=== PATIENT | male | born 1960 | race Hispanic/Latino ===

== ENCOUNTER 2016-04-02 06:14 | Inpatient (IN) | payer OTHER ==
[~2016-04-02 06:14] MED LIST: ANCEF/STERILE WATER 2 GM/20 ML 20 ML IV NR; NACL BACTERIOSTATIC INFILTRATI ONE
[2016-04-02] MEDS ORDERED: XYLOCAINE MPF 2% ONE (06:33)
[2016-04-02] MEDS ORDERED: DILAUDID ONE (06:34)
[2016-04-02] MEDS ORDERED: DIPRIVAN 10 MG/ML IV ONE (06:34)
[2016-04-02] MEDS: NACL 0.9% 1000 ML 1,000 ML IV SCH ×2 (06:50→23:29)
[2016-04-02] MEDS ORDERED: VERSED IV NR (07:00)
[2016-04-02] MEDS ORDERED: DILAUDID IV NR (07:00)
[2016-04-02] MEDS ORDERED: PEPCID PO NR (07:00)
--- NOTE | 2016-04-02 07:01 | Anesthesia Day of Surgery ---
Anesthesia Day of Surgery - Day of Surgery Patient Examined: Yes Patient H&P Reviewed: Yes Patient is NPO: Yes
--- NOTE | 2016-04-02 07:04 | Anesthesia Consultation ---
Anesthesia Consult and Med Hx - Airway Anesthetic Teeth Evaluation: Poor (missing teeth) ROM Head & Neck: Adequate Mental/Hyoid Distance: Adequate Mallampati Class: Class III Intubation Access Assessment: Possibly Difficult - Pulmonary Exam CTA: Yes - Cardiac Exam Cardiac Exam: RRR - Pre-Operative Health Status ASA Pre-Surgery Classification: ASA3 Proposed Anesthetic Plan: General - Pulmonary Hx Smoking: Yes - Cardiovascular System Hx Hypertension: Yes (10YRS) Hx Coronary Artery Disease: Yes (CABG 2008) Hx Heart Murmur: Yes ( A CHILD) Hx Peripheral Vascular Disease: Yes (10/2015) - Central Nervous System Hx Psychiatric Problems: No - Gastrointestinal Hx Gastroesophageal Reflux Disease: Yes (controlled on meds) - Endocrine Hx Renal Disease: Yes (L kidney stone) Hx Non-Insulin Dependent Diabetes: Yes - Other Systems Hx Cancer: No - Additional Comments Anesthesia Medical History Comments: NPO after MN. No prior anesthesia problems. Pt has hx smoking, CABG, HTN, DM, and GERD.
[2016-04-02 07:07] LABS: Basophils % (Auto) 0.6 % (0.0-1.8); Eosinophils % (Auto) 1.2 % (0.0-4.3); Hematocrit 35.2 % (35.5-45.6); Hemoglobin 11.4 gm/dl (11.8-15.2); Mean Corpuscular HGB Conc 32 % (32-34); Mean Corpuscular Hemoglobin 27 pg (28-32); Mean Corpuscular Volume 83 fl (84-94); Platelet Count 290 K/mm3 (140-440); Red Blood Count 4.23 M/mm3 (3.65-5.03); White Blood Count 14.6 K/mm3 (4.5-11.0)
[2016-04-02 07:20] LABS: INR 1.08 (0.87-1.13)
[2016-04-02 07:23] LABS: BUN/Creatinine Ratio 13.07; Calcium 8.4 mg/dL (8.4-10.2); Chloride 99.9 mmol/L (98-107); Potassium 4.3 mmol/L (3.6-5.0)
[2016-04-02] MEDS ORDERED: ZOFRAN IV PRN (07:28)
[2016-04-02] MEDS ORDERED: MARCAINE 0.5% 30 ML INFILTRATI ONE (07:35)
[2016-04-02] MEDS ORDERED: DECADRON ONE (08:34)
[2016-04-02] MEDS ORDERED: ZOFRAN ONE (08:34)
[2016-04-02] MEDS ORDERED: NACL 0.9% IR ONE (08:45)
--- NOTE | 2016-04-02 09:32 | Operative Report ---
Operative Report Operative Report: Date of Procedure: 04/02/2016 Pre-operative Diagnosis: PVD with Right Foot Nonhealing Ulcers Post-operative Diagnosis: Same Procedure(s): 1. Right Transmetatarsal Amputation 2. Debridement of Skin and Soft Tissue of Right Foot Wound 3. Wound VAC Placement Right Foot (Wound Measures 4 x 4 x 2 cm) Surgeon: Serge Berg M.D. Pastry Supervisor: None Anesthesia: Gen. endotracheal anesthesia and regional block EBL: Minimal Counts: Correct Complications: None Condition: Stable Findings: TMA performed and wound closed without tension on the incision. Lateral wound debrided to healthy bleeding tissue and wound VAC with excellent seal. Specimen: Right forefoot and skin and soft tissue of right foot sent to pathology Indication: The patient is a 55-year-old male with a history of peripheral vascular disease and ulcerations of his right foot. He had amputation of the right fifth toe for dehiscence of the wound and an ulceration on the plantar surface of his right first toe. Despite revascularization and antibiotics for the last 5 months he has not healed his wounds. He is in need of a transmetatarsal amputation to control his pain as well as infection. He was given the risks, benefits, and alternative procedures and consented to procedure. Description of Procedure: The patient was brought to the operating room in the supine position. After general endotracheal anesthesia was achieved the regional block was performed of his right ankle. His right foot was then prepped and draped in normal sterile fashion. A transverse incision was then created over the midportion of the metatarsals and carried distally to create a flap from the plantar surface. Cautery was then used to create the dissection down to the metatarsal. An oscillating saw was then used to transect the metatarsals and then cautery was used to resect toe as well as the tendons and soft issue. A rasp was then used to smooth the bones. The wound was copiously irrigated and hemostasis was achieved with electrocautery. The lateral edge of the foot had a large nonhealing wound with necrotic tissue that was sharply debrided with a 10 blade and a curet. This was debrided down to healthy bleeding tissue. I then closed the incision in 2 layers using a 2-0 Vicryl in interrupted fashion to reapproximate the deep dermal layers. Mariel were then used to close the skin. The lateral aspect of the wound was unable to be closed secondary to the previous debridement of necrotic skin and soft tissue. A Hemovac was placed on this area with an excellent seal. The remainder of the wound was dressed with Xeroform gauze and then the foot was wrapped with the loose Kerlix roll. The patient tolerated the procedure well. All sponge, needle, instrument counts were correct. The patient was taken to the recovery area in stable condition.
[2016-04-02] MEDS ORDERED: D50W (25GM) IV PRN (09:38)
[2016-04-02] MEDS: DILAUDID IV PRN ×4 (09:50→19:00)
[2016-04-02] MEDS ORDERED: NORCO 7.5/325 PO PRN (10:00)
[2016-04-02] MEDS ORDERED: OMEPRAZOLE PO SCH (10:00)
[2016-04-02] MEDS ORDERED: SODIUM BICARBONATE PO SCH (10:00)
--- NOTE | 2016-04-02 10:24 | Post Anesthesia Evaluation ---
- Post Anesthesia Evaluation Patient Participated: Yes Airway Patent: Yes Stable Respiratory Function: Yes Nausea/Vomiting: No Temp > 96.8F: Yes Pain Manageable: Yes Adequeate Hydration: Yes Anesthesia Complications: No Block Receding Appropriately: Not Applicable Patient on Ventilator: No
[2016-04-02] MEDS: NOVOLOG SUB-Q SCH ×3 (11:31→23:30)
[2016-04-02] MEDS: AMARYL PO SCH (11:55)
[2016-04-02] MEDS: PLAVIX PO SCH (11:56)
[2016-04-02] MEDS: PROTONIX PO SCH (11:56)
[2016-04-02] MEDS: NORVASC PO SCH (11:57)
[2016-04-02] MEDS: TORADOL IV PRN ×2 (11:59→23:24)
--- NOTE | 2016-04-02 13:17 | Admit Criteria Form ---
Admission Criteria Documentation: AMBULATORY SURGERY EXCEPTION CRITERIA Ambulatory Surgery Exception Criteria ( Place 'X' for any and all applicable criteria): Surgery or procedure performed on ambulatory basis may require inpatient stay for[A] ANY ONE of the following(1)(2)(3)(4)(5)(6)(7)(8)(9): [X] I. A preoperative situation, condition, or finding that warrants inpatient stay as indicated by ANY ONE of the following: [] a) Inpatient care needed because of severity of a disease or condition rather than the surgery (eg, severe cardiac or respiratory disease, severe infection) (15) (16 ) (17) (18) [] b) Emergent procedure (eg, angioplasty for acute ischemia)(19) [] c) Complex surgical approach or situation as indicated by ANY ONE of the following(3): [] i) Open approach needed instead of usual endoscopic, transcatheter, or other less invasive procedure [] ii) Difficult approach because of previous operation [] iii) Airway monitoring required after open neck procedures(20)(21) [] iv) Large mass requiring unusually extensive dissection [] v) Additional complicating feature requiring inpatient care (eg, drain management)(22(23): [X] d) Major surgery in a pt with high anesthetic risk as indicated by ANY ONE of the following (2)(3)(5)(7)(8): [X] i) ASA risk class III or higher (severe systemic disease impairing function) [D] [] ii) Advanced age (eg, older than 85 years)(14)(24) [] iii) Symptomatic heart failure(25) [] iv) Symptomatic asthma or COPD(8)(21) [] v) Morbid obesity with hemodynamic or respiratory problems(20)( 21)(26)(27) [] vi) Obstructive sleep apnea(20)(21) [] vii) Former premature infants who are younger than 60 weeks [] viii) High risk for severe postoperative abnormalities (eg, severe postoperative hypocalcemia after parathyroidectomy for severe hyperparathyroidism)(27)( 28) [] ix) Unstable angina(25) [] e) Drug-related risk requiring inpatient stay as indicated by ANY ONE of the following(5)(10)(14)(32)(33) [] i) Procedure requires discontinuing drugs or other therapy (eg , antiarrhythmic medication, antiseizure medication), which necessitates inpatient observation or treatment.(18)(31) [] ii) Major surgery and high risk drug use as indicated by ANY ONE of the following: [] 1) Active abuse of cocaine or similar drug [] 2) Monoamine oxidase inhibitor use [] 3) Other drug identified as posing risk [] f) Inadequate outpatient care situation as indicated by ANY ONE of the following(5)(10)(14)(32)(33) [] i) Patient lives remote from medical facility and procedure has urgent complication potential, and temporary nearby residence cannot be arranged [] ii) Patient will have postprocedure incapacitation and inadequate assistance at home, or alternative level of care cannot be arranged. [] iii) Patient will have long general anesthesia or procedure side effect resolution time, and competent person to stay with patient on first postoperative night at home or alternative level of care cannot be arranged. []iv) Other inadequate outpatient situation that cannot be handled by other means [] II. A perioperative event, condition, or finding that warrants inpatient stay as indicated by ANY ONE of the following (1)(2)(3): [] a) Inadequate physiologic recovery: cardiovascular, respiratory, or hemodynamic status not normal or near preoperative baseline(18) [] b) Hemodynamic instability [] c) Patient not alert with near normal or baseline mental status [] d) Temperature not normal or as expected and not appropriate for outpatient treatment of condition [] e) Ambulatory or appropriate activity level status not yet achieved post procedure [E](34)(35)(36) [] f) Operative site not appropriate (eg, unexpected or excessive drainage or bleeding) [] g) Postoperative effects not resolved or adequately managed (eg, significant pain or vomiting not appropriate for outpatient or next level of care)(10)(12) [] h) Complicating features requiring inpatient care as indicated by ANY ONE of the following(37): [] i) Severe complications of procedure (eg, bowel injury, airway compromise, vascular injury,severe hemorrhage) [] ii) Extensive (eg, dissection far beyond usual scope of procedure ) or prolonged (eg, 120 minutes beyond usual) surgery needed requiring inpatient postoperative care [] iii) Conversion to an open or complex procedure that requires inpatient care (eg, open vs laparoscopic cholecystectomy, abdominal vs vaginal hysterectomy)(38) [] iv) Comorbid condition or test result identified during or post procedure that requires inpatient care (7) [] v) Malignant hyperthermia(30) [] vi) Other complicating feature requiring inpatient care(22)(23) Inpatient stay may be needed until ALL of the following are present (1)(2)(3)(4) (5)(6)(10)(14)(33)(40): []a) Physiologic recovery: cardiovascular, respiratory, and hemodynamic status normal or near preoperative baseline []b) Hemodynamic stability []c) Patient alert, with near normal or baseline mental status []d) Temperature appropriate: patient afebrile or temperature appropriate for outpt treatment of condition []e) Activity level appropriate: ambulatory or appropriate activity level post procedure []f) Operative site appropriate as indicated by ALL of the following: []i) Site dry or with expected drainage []ii) Any blood noted is as expected for procedure. []g) Postoperative effects resolved or managed as indicated by ALL of the following: []i) Pain management appropriate for outpatient (or next level of) care(10) []ii) Minimal nausea and vomiting: if present, successfully treated with oral medication(12) []iii) Headache, dizziness, or drowsiness (if present) are mild. []h) Voiding status acceptable as indicated by ANY ONE of the following: []i) Voiding spontaneously []ii) No voiding but instructions given for follow-up in 6 to 8 hours []iii) Urinary catheter in place, and instructions given for follow-up []i) Complicating features requiring inpatient care manageable at a lower level of care(37) []j) Comorbid conditions manageable at a lower level of care(37) The original [employer] content created by [employer] has been revised. The portions of the content which have been revised are identified through the use of italic text or in bold, and [employer] [facility] [employer] has neither reviewed nor approved the modified material. All other unmodified content is copyright [employer]. Please see references footnoted in the original [employer] edition 2016 Admission Criteria Met: Yes
[2016-04-02] MEDS: ceFAZolin 2 GM in NACL 0.9% 100 ML IV SCH ×2 (15:52→23:33)
[2016-04-03] MEDS: ceFAZolin 2 GM in NACL 0.9% 100 ML IV SCH (01:14)
[2016-04-03] MEDS: NORCO 5/325 PO PRN ×3 (02:05→17:13)
[2016-04-03 05:26] LABS: Hematocrit 32.3 % (35.5-45.6); Hemoglobin 10.5 gm/dl (11.8-15.2)
[2016-04-03 05:33] LABS: BUN/Creatinine Ratio 12.3; Chloride 101.6 mmol/L (98-107); Potassium 4.3 mmol/L (3.6-5.0)
[2016-04-03] MEDS: DILAUDID IV PRN (05:40)
[2016-04-03] MEDS: NOVOLOG SUB-Q SCH ×4 (08:30→22:00)
[2016-04-03] MEDS: AMARYL PO SCH (10:57)
[2016-04-03] MEDS: LOVENOX SUB-Q SCH (10:58)
[2016-04-03] MEDS: NORVASC PO SCH (10:58)
[2016-04-03] MEDS: PLAVIX PO SCH (10:58)
[2016-04-03] MEDS: PROTONIX PO SCH (10:59)
[2016-04-03] MEDS ORDERED: SILVER NITRATE TP ONE (12:51)
--- NOTE | 2016-04-03 13:08 | Consultation ---
History of Present Illness - Reason for Consult Consult date: 04/03/16 Evaluate for Acute IRU - History of Present Illness 55 y.o. male with history of PVD admitted for right transmetatarsal amputation. Pt reports history of right fifth toe amputation and worsening diabetic foot ulcer; also with revascularization to RLE. Due to non-healing wound, pt was recommended for right TMA. Pt is POD #1 on today, pain is stable. Will require ongoing wound vac; pending Gabriel shoe for gait training. Consult placed for post-acute placement recommendations. Past History Past Medical History: diabetes, hypertension, PVD Past Surgical History: CABG, Other (right toe amputations prior to right TMA; right LE revascularization) Social history: , lives with family, smoking Family history: CAD, diabetes, hypertension, other (CHF) Medications and Allergies Allergies Allergy/AdvReac Type Severity Reaction Status Date / Time No Known Allergies Allergy Verified 04/01/16 10:07 Home Medications Medication Instructions Recorded Confirmed Last Taken Type Clopidogrel Bisulfate [Clopidogrel] 75 mg PO DAILY 10/30/15 04/01/16 04/02/16 05 :00 History Glimepiride [Glimepiride] 4 mg PO DAILY 10/30/15 04/02/16 04/01/16 History HYDROcodone/APAP 7.5-325 [[place] 1 each PO Q6HR PRN #50 tablet 10/30/15 04/02/16 04/01/16 Rx 7.5-325 mg TAB] Omeprazole/Sodium Bicarbonate 1 tab PO DAILY 10/30/15 04/01/16 04/02/16 05:00 History [Zegerid 20-1,100 mg] amLODIPine [Norvasc] 10 mg PO DAILY 04/02/16 04/02/16 04/02/16 05:00 History Active Meds: Active Medications Acetaminophen/Hydrocodone Bitart ([place] 5/325) 2 each PO Q6H PRN PRN Reason: Pain, Moderate (4-6) Last Admin: 04/03/16 10:59 Dose: 2 each Acetaminophen/Hydrocodone Bitart ([place] 7.5/325) 1 each PO Q6H PRN PRN Reason: Pain Amlodipine Besylate (Norvasc) 10 mg PO DAILY [facility] Last Admin: 04/03/16 10:58 Dose: 10 mg Clopidogrel Bisulfate (Plavix) 75 mg PO DAILY [facility] Last Admin: 04/03/16 10:58 Dose: 75 mg Dextrose (D50w (25gm)) 50 ml IV PRN PRN PRN Reason: Hypoglycemia Enoxaparin Sodium (Lovenox) 40 mg SUB-Q QDAY [facility] Last Admin: 04/03/16 10:58 Dose: 40 mg Glimepiride (Amaryl) 4 mg PO QDDIAB [facility] Last Admin: 04/03/16 10:57 Dose: 4 mg Hydromorphone HCl (Dilaudid) 0.5 mg IV Q3H PRN PRN Reason: Pain , Severe (7-10) Last Admin: 04/03/16 05:40 Dose: 0.5 mg Sodium Chloride (Nacl 0.9% 1000 Ml) 1,000 mls @ 42 mls/hr IV DIRECT [facility] Last Admin: 04/02/16 23:29 Dose: 42 mls/hr Insulin Aspart (Novolog) 0 units SUB-Q ACHS [facility] PRN Reason: Protocol Last Admin: 04/03/16 08:30 Dose: 1 units Ketorolac Tromethamine (Toradol) 30 mg IV Q6H PRN PRN Reason: Pain, Moderate (4-6) Stop: 04/07/16 09:59 Last Admin: 04/02/16 23:24 Dose: 30 mg Pantoprazole Sodium (Protonix) 20 mg PO QDAY [facility] Last Admin: 04/03/16 10:59 Dose: 20 mg Review of Systems All systems: negative Constitutional: no poor appetite Ears, nose, mouth and throat: no headache Cardiovascular: no chest pain Respiratory: no cough, no shortness of breath Gastrointestinal: no nausea, no vomiting, no constipation (BM on yesterday) Exam - Constitutional Vitals: Vital Signs - 12hr 04/03/16 04/03/16 07:30 10:58 Temperature 98.1 F Pulse Rate 84 Pulse Rate [ 18 L Brachial] Blood Pressure 142/71 Blood Pressure 142/70 [Left Arm] O2 Sat by Pulse 97 Oximetry General appearance: no acute distress, other (sitting up in bed) - EENT Eyes: EOM intact ENT: hearing intact - Neck Neck: supple, normal ROM - Respiratory Respiratory effort: normal Respiratory: bilateral: CTA - Cardiovascular Rhythm: regular Heart Sounds: Present: S1 & S2 - Extremities Extremity abnormal: other (right foot incision open at far lateral side; meng in place to remaining wound; Vascular Team present changing wound vac) - Gastrointestinal General gastrointestinal: Present: non-tender (firm), normal bowel sounds - Neurologic Neurologic: CNII-XII intact, moves all extremities (RLE deferred due to ongoing wound vac change; remaining extremities WNL) - Psychiatric Psychiatric: appropriate mood/affect, intact judgment & insight, memory intact, cooperative - Labs CBC & Chem 7: 04/03/16 04:51 04/03/16 04:51 Labs: Laboratory Results - last 72 hr 04/02/16 04/02/16 04/02/16 06:45 06:45 06:45 WBC 14.6 H RBC 4.23 Hgb 11.4 L Hct 35.2 L MCV 83 L MCH 27 L MCHC 32 RDW 14.0 Plt Count 290 Lymph % (Auto) 11.2 L Casey % (Auto) 6.7 Eos % (Auto) 1.2 Baso % (Auto) 0.6 Lymph # 1.6 Casey # 1.0 H Eos # 0.2 Baso # 0.1 Seg Neutrophils % 80.3 H Seg Neutrophils # 11.7 H PT 13.9 INR 1.08 Sodium 139 Potassium 4.3 Chloride 99.9 Carbon Dioxide 23 Anion Gap 20 BUN 17 Creatinine 1.3 Estimated GFR 58 BUN/Creatinine Ratio 13.07 Glucose 183 H POC Glucose Calcium 8.4 04/02/16 04/02/16 04/02/16 06:56 09:30 11:05 WBC RBC Hgb Hct MCV MCH MCHC RDW Plt Count Lymph % (Auto) Casey % (Auto) Eos % (Auto) Baso % (Auto) Lymph # Casey # Eos # Baso # Seg Neutrophils % Seg Neutrophils # PT INR Sodium Potassium Chloride Carbon Dioxide Anion Gap BUN Creatinine Estimated GFR BUN/Creatinine Ratio Glucose POC Glucose 180 H 168 H 223 H Calcium 04/02/16 04/02/16 04/03/16 16:07 22:30 04:51 WBC RBC Hgb 10.5 L Hct 32.3 L MCV MCH MCHC RDW Plt Count Lymph % (Auto) Casey % (Auto) Eos % (Auto) Baso % (Auto) Lymph # Casey # Eos # Baso # Seg Neutrophils % Seg Neutrophils # PT INR Sodium Potassium Chloride Carbon Dioxide Anion Gap BUN Creatinine Estimated GFR BUN/Creatinine Ratio Glucose POC Glucose 403 H 290 H Calcium 04/03/16 04/03/16 04:51 07:03 WBC RBC Hgb Hct MCV MCH MCHC RDW Plt Count Lymph % (Auto) Casey % (Auto) Eos % (Auto) Baso % (Auto) Lymph # Casey # Eos # Baso # Seg Neutrophils % Seg Neutrophils # PT INR Sodium 137 Potassium 4.3 Chloride 101.6 Carbon Dioxide 22 Anion Gap 18 BUN 16 Creatinine 1.3 Estimated GFR 58 BUN/Creatinine Ratio 12.30 Glucose 207 H POC Glucose 173 H Calcium 8.0 L Assessment and Plan Patient was assessed and evaluated for Acute Inpatient Rehab Unit. 55 y.o. male s/p right TMA. Rehab options discussed with pt; pending PT evaluation and ambulation after Gabriel shoe is available. Ongoing medical management for DM, HTN; wound care per ET nurse for wound vac. Will continue to follow; placement recommendations after PT evaluation is completed. Thank you for consultation. - Patient Problems (1) PVD (peripheral vascular disease) Current Visit: Yes Status: Acute (2) Diabetes Current Visit: Yes Status: Acute Qualifiers: Diabetes mellitus type: type 2 Diabetes mellitus complication status: with hyperglycemia Diabetes mellitus superintendent container terminal insulin use: without superintendent container terminal use Qualified Code(s): E11.65 - Type 2 diabetes mellitus with hyperglycemia (3) HTN (hypertension) Current Visit: Yes Status: Acute
--- NOTE | 2016-04-03 14:43 | Progress Note ---
Assessment and Plan Status post right TMA and debridement. Wound VAC seal broken by clot from ooze from wound. Taken down, Silver nitrate applied cauterize focal areas of bleeding. Dressing applied. Wound care nurse will reapply wound VAC, possibly on Tuesday. Awaiting Alessandro shoe. Dr. Minaya was at bedside assessing for inpatient rehabilitation. Subjective Date of service: 04/03/16 Principal diagnosis: gangrene Interval history: Status post right TMA with VAC placement and debridement. Blood saturated wound VAC preventing VAC drainage. VAC removed. Clot removed. Area cleaned with wound cleanser. 2 focal areas of bleeding from the lateral wound which were cauterized with silver nitrate. One focal area of bleeding from the medial wound which was cauterized with silver nitrate. Vaseline gauze , gauze with saline, and Kerlix applied. Wound VAC will be replaced by wound care when possible which may be Tuesday. In the interim, change dressing daily Objective - Constitutional Vitals: Vital Signs - 12hr 04/03/16 04/03/16 07:30 10:58 Temperature 98.1 F Pulse Rate 84 Pulse Rate [ 18 L Brachial] Blood Pressure 142/71 Blood Pressure 142/70 [Left Arm] O2 Sat by Pulse 97 Oximetry General appearance: Present: no acute distress - EENT Eyes: EOM intact ENT: hearing intact - Respiratory Respiratory effort: normal Extremity abnormal: other (see subjective portion) - Psychiatric Psychiatric: appropriate mood/affect, cooperative - Labs CBC & Chem 7: 04/03/16 04:51 04/03/16 04:51 Labs: Abnormal lab results 04/02/16 04/02/16 04/03/16 Range/Units 16:07 22:30 04:51 Hgb 10.5 L (11.8-15.2) gm/dl Hct 32.3 L (35.5-45.6) % Glucose (75-100) mg/dL POC Glucose 403 H 290 H (70-105) Calcium (8.4-10.2) mg/dL 04/03/16 04/03/16 Range/Units 04:51 07:03 Hgb (11.8-15.2) gm/dl Hct (35.5-45.6) % Glucose 207 H (75-100) mg/dL POC Glucose 173 H (70-105) Calcium 8.0 L (8.4-10.2) mg/dL
[2016-04-03] MEDS: TORADOL IV PRN (22:00)
[2016-04-04] MEDS: NORCO 5/325 PO PRN ×3 (01:30→17:03)
[2016-04-04 05:21] LABS: Basophils % (Auto) 0.4 % (0.0-1.8); Hematocrit 30.7 % (35.5-45.6); Hemoglobin 10.2 gm/dl (11.8-15.2); Mean Corpuscular HGB Conc 33 % (32-34); Mean Corpuscular Hemoglobin 27 pg (28-32); Mean Corpuscular Volume 82 fl (84-94); Platelet Count 237 K/mm3 (140-440); Red Blood Count 3.73 M/mm3 (3.65-5.03); Red Cell Distribution Width 13.8 % (13.2-15.2); White Blood Count 12.2 K/mm3 (4.5-11.0)
[2016-04-04] MEDS: NACL 0.9% 1000 ML 1,000 ML IV SCH (06:00)
[2016-04-04] MEDS: TORADOL IV PRN ×3 (06:30→21:46)
[2016-04-04] MEDS: NOVOLOG SUB-Q SCH ×4 (08:00→21:47)
[2016-04-04] MEDS: AMARYL PO SCH (09:05)
[2016-04-04] MEDS: PLAVIX PO SCH (09:05)
[2016-04-04] MEDS: NORVASC PO SCH (09:05)
[2016-04-04] MEDS: LOVENOX SUB-Q SCH (09:05)
[2016-04-04] MEDS: PROTONIX PO SCH (09:05)
--- NOTE | 2016-04-04 15:14 | Progress Note ---
Assessment and Plan Status post right TMA and debridement. Wound VAC seal broken by clot from ooze from wound yesterday requiring wound VAC removal. No recurrent bleeding since then. VAC be replaced tomorrow. Awaiting Darco shoe. Subjective Date of service: 04/04/16 Principal diagnosis: gangrene Interval history: Status post right TMA with VAC placement and debridement. VAC was removed due to lack of seal. Patient is in no distress. Nurse changed wounds as I was present demonstrating no significant bleeding from the site. VAC will be replaced tomorrow. Patient has no complaints. Objective - Constitutional Vitals: Vital Signs - 12hr 04/04/16 04/04/16 04/04/16 04:00 06:30 07:00 Temperature 99.0 F Pulse Rate Pulse Rate [ 74 Brachial] Respiratory 18 20 18 Rate Blood Pressure Blood Pressure 149/80 [Left Arm] O2 Sat by Pulse 98 Oximetry 04/04/16 04/04/16 07:30 09:05 Temperature 99.1 F Pulse Rate 70 Pulse Rate [ 70 Brachial] Respiratory 20 Rate Blood Pressure 149/67 Blood Pressure 149/67 [Left Arm] O2 Sat by Pulse Oximetry General appearance: Present: no acute distress - EENT Eyes: EOM intact ENT: hearing intact - Respiratory Respiratory effort: normal Extremities: normal temperature, normal color Extremity abnormal: other (right TMA with open lateral aspect of wound and focal open aspect of the midportion of the wound; no active oozing; no purulence ; base of wound is slightly dark) - Psychiatric Psychiatric: appropriate mood/affect, cooperative - Labs CBC & Chem 7: 04/04/16 05:08 04/03/16 04:51 Labs: Abnormal lab results 04/03/16 04/03/16 04/03/16 Range/Units 12:23 17:05 21:19 WBC (4.5-11.0) K/mm3 Hgb (11.8-15.2) gm/dl Hct (35.5-45.6) % MCV (84-94) fl MCH (28-32) pg Seg Neutrophils % (40.0-70.0) % Seg Neutrophils # (1.8-7.7) K/mm3 POC Glucose 185 H 112 H 237 H (70-105) 04/04/16 04/04/16 04/04/16 Range/Units 05:08 08:00 11:47 WBC 12.2 H (4.5-11.0) K/mm3 Hgb 10.2 L (11.8-15.2) gm/dl Hct 30.7 L (35.5-45.6) % MCV 82 L (84-94) fl MCH 27 L (28-32) pg Seg Neutrophils % 70.4 H (40.0-70.0) % Seg Neutrophils # 8.6 H (1.8-7.7) K/mm3 POC Glucose 136 H 130 H (70-105)
[2016-04-05] MEDS: NORCO 5/325 PO PRN ×4 (02:14→21:36)
[2016-04-05] MEDS: NACL 0.9% 1000 ML 1,000 ML IV SCH (02:15)
[2016-04-05 05:51] LABS: Basophils % (Auto) 0.7 % (0.0-1.8); Eosinophils % (Auto) 2.2 % (0.0-4.3); Hematocrit 31.9 % (35.5-45.6); Hemoglobin 10.5 gm/dl (11.8-15.2); Mean Corpuscular HGB Conc 33 % (32-34); Mean Corpuscular Hemoglobin 27 pg (28-32); Mean Corpuscular Volume 82 fl (84-94); Platelet Count 265 K/mm3 (140-440); Red Blood Count 3.88 M/mm3 (3.65-5.03); Red Cell Distribution Width 13.9 % (13.2-15.2); White Blood Count 11.9 K/mm3 (4.5-11.0)
[2016-04-05] MEDS: AMARYL PO SCH (07:57)
[2016-04-05] MEDS: TORADOL IV PRN ×2 (07:57→16:07)
[2016-04-05] MEDS: NOVOLOG SUB-Q SCH ×3 (08:05→18:19)
[2016-04-05] MEDS: PLAVIX PO SCH (10:18)
[2016-04-05] MEDS: NORVASC PO SCH (10:18)
[2016-04-05] MEDS: PROTONIX PO SCH (10:18)
[2016-04-05] MEDS: LOVENOX SUB-Q SCH (10:20)
--- NOTE | 2016-04-05 11:51 | Consultation ---
History of Present Illness - Reason for Consult Consult date: 04/05/16 Requesting physician: WILFRIDO MENSAH - History of Present Illness 55 Yo male with HTN, DM, PAD, CAD S/P CABG, Nicotine Dependence, Metabolic Syndrome, diabetic Foot admitted for right Transmetatarsal amputation. Pt POD # 1. Pt denies fever, chills, CP, Palpitation, NVD, shortness of breath, productive cough, or skin rashes. Past History Past Medical History: diabetes, hypertension, PVD Past Surgical History: CABG, Other (right toe amputations prior to right TMA; right LE revascularization) Social history: , lives with family, smoking Family history: CAD, diabetes, hypertension, other (CHF) Medications and Allergies Allergies Allergy/AdvReac Type Severity Reaction Status Date / Time No Known Allergies Allergy Verified 04/01/16 10:07 Home Medications Medication Instructions Recorded Confirmed Last Taken Type Clopidogrel Bisulfate [Clopidogrel] 75 mg PO DAILY 10/30/15 04/01/16 04/02/16 05 :00 History Glimepiride [Glimepiride] 4 mg PO DAILY 10/30/15 04/02/16 04/01/16 History HYDROcodone/APAP 7.5-325 [[place] 1 each PO Q6HR PRN #50 tablet 10/30/15 04/02/16 04/01/16 Rx 7.5-325 mg TAB] Omeprazole/Sodium Bicarbonate 1 tab PO DAILY 10/30/15 04/01/16 04/02/16 05:00 History [Zegerid 20-1,100 mg] amLODIPine [Norvasc] 10 mg PO DAILY 04/02/16 04/02/16 04/02/16 05:00 History Active Meds: Active Medications Acetaminophen/Hydrocodone Bitart ([place] 5/325) 2 each PO Q6H PRN PRN Reason: Pain, Moderate (4-6) Last Admin: 04/05/16 10:19 Dose: 2 each Amlodipine Besylate (Norvasc) 10 mg PO DAILY [facility] Last Admin: 04/05/16 10:18 Dose: 10 mg Clopidogrel Bisulfate (Plavix) 75 mg PO DAILY [facility] Last Admin: 04/05/16 10:18 Dose: 75 mg Dextrose (D50w (25gm)) 50 ml IV PRN PRN PRN Reason: Hypoglycemia Enoxaparin Sodium (Lovenox) 40 mg SUB-Q QDAY [facility] Last Admin: 04/05/16 10:20 Dose: 40 mg Glimepiride (Amaryl) 4 mg PO QDDIAB [facility] Last Admin: 04/05/16 07:57 Dose: 4 mg Hydromorphone HCl (Dilaudid) 0.5 mg IV Q3H PRN PRN Reason: Pain , Severe (7-10) Last Admin: 04/03/16 05:40 Dose: 0.5 mg Sodium Chloride (Nacl 0.9% 1000 Ml) 1,000 mls @ 42 mls/hr IV DIRECT [facility] Last Admin: 04/05/16 02:15 Dose: 42 mls/hr Insulin Aspart (Novolog) 0 units SUB-Q ACHS [facility] PRN Reason: Protocol Last Admin: 04/05/16 08:05 Dose: Not Given Ketorolac Tromethamine (Toradol) 30 mg IV Q6H PRN PRN Reason: Pain, Moderate (4-6) Stop: 04/07/16 09:59 Last Admin: 04/05/16 07:57 Dose: 30 mg Pantoprazole Sodium (Protonix) 20 mg PO QDAY [facility] Last Admin: 04/05/16 10:18 Dose: 20 mg Review of Systems All systems: negative Constitutional: other (none) Exam - Constitutional Vitals: Temp Pulse Resp BP Pulse Ox 98.8 F 73 18 151/68 100 04/05/16 08:00 04/05/16 10:18 04/05/16 08:00 04/05/16 10:18 04/05/16 08:00 General appearance: Present: no acute distress, well-nourished - EENT Eyes: Present: PERRL ENT: hearing intact, clear oral mucosa - Neck Neck: Present: supple, normal ROM - Respiratory Respiratory effort: normal Respiratory: bilateral: CTA - Cardiovascular Heart Sounds: Present: S1 & S2. Absent: rub, click - Extremities Extremities: pulses symmetrical, No edema Extremity abnormal: other (RLE dressing in place. ) Peripheral Pulses: within normal limits - Abdominal General gastrointestinal: Present: soft, non-tender, non-distended, normal bowel sounds Male genitourinary: Present: normal - Integumentary Integumentary: Present: clear, warm, dry - Musculoskeletal Musculoskeletal: gait normal, strength equal bilaterally - Psychiatric Psychiatric: appropriate mood/affect, intact judgment & insight - Neurologic Neurologic: CNII-XII intact, moves all extremities Results - Labs CBC & Chem 7: 04/05/16 05:45 04/03/16 04:51 Labs: Abnormal lab results 04/04/16 04/04/16 04/04/16 Range/Units 11:47 17:13 21:14 WBC (4.5-11.0) K/mm3 Hgb (11.8-15.2) gm/dl Hct (35.5-45.6) % MCV (84-94) fl MCH (28-32) pg [place] % (Auto) (0.0-7.3) % [place] # (0.0-0.8) K/mm3 Seg Neutrophils # (1.8-7.7) K/mm3 POC Glucose 130 H 124 H 184 H (70-105) 04/05/16 Range/Units 05:45 WBC 11.9 H (4.5-11.0) K/mm3 Hgb 10.5 L (11.8-15.2) gm/dl Hct 31.9 L (35.5-45.6) % MCV 82 L (84-94) fl MCH 27 L (28-32) pg [place] % (Auto) 7.5 H (0.0-7.3) % [place] # 0.9 H (0.0-0.8) K/mm3 Seg Neutrophils # 8.3 H (1.8-7.7) K/mm3 POC Glucose (70-105) Assessment and Plan HTN: Monitor BP q shift, resume home medication, hydralazine prn. DM: ADA diet, insulin, accu check, D/C oral antihyperglycemic therapy PAD: supportive care DVT Prophylaxis
[2016-04-05] MEDS ORDERED: APRESOLINE IV PRN (11:52)
[2016-04-05] MEDS ORDERED: D50W (25GM) IV PRN (11:53)
--- NOTE | 2016-04-05 12:04 | Progress Note ---
Assessment and Plan Wound Vac was removed by the ET nurse, and silver bandages will be placed for the next couple of days. Possible replacement of the wound VAC at that point. Discharge planning and progress. - Patient Problems (1) Diabetic foot ulcer associated with diabetes mellitus due to underlying condition Current Visit: Yes Status: Acute Qualifiers: Laterality: right Qualified Code(s): E08.621 - Diabetes mellitus due to underlying condition with foot ulcer; L97.519 - Non-pressure chronic ulcer of other part of right foot with unspecified severity (2) Atherosclerosis of [place] arteries of the extremities with ulceration Current Visit: Yes Status: Acute Subjective Date of service: 04/05/16 Principal diagnosis: gangrene Interval history: Patient is awake and alert. He is without specific complaint at present. Objective - Constitutional Vitals: Vital Signs - 12hr 04/05/16 04/05/16 04/05/16 00:00 02:14 04:00 Temperature 98.3 F 98.2 F Pulse Rate Pulse Rate [ 70 73 Brachial] Respiratory 18 18 18 Rate Blood Pressure Blood Pressure 166/74 165/84 [Left Arm] O2 Sat by Pulse 97 100 Oximetry 04/05/16 04/05/16 08:00 10:18 Temperature 98.8 F Pulse Rate 73 Pulse Rate [ 73 Brachial] Respiratory 18 Rate Blood Pressure 151/68 Blood Pressure 151/68 [Left Arm] O2 Sat by Pulse 100 Oximetry General appearance: Present: no acute distress - EENT Eyes: EOM intact ENT: hearing intact - Respiratory Respiratory effort: normal Extremities: abnormal (wound VAC removed by the ET nurse. [id number] bowel odor present. Yellow fibrinous slough covering the wound base. Slightly blackened tissue along the wound border on the lateral aspect adjacent to the second toe.) - Neurologic Neurologic: no focal deficits - Psychiatric Psychiatric: appropriate mood/affect, intact judgment & insight, cooperative - Labs CBC & Chem 7: 04/05/16 05:45 04/03/16 04:51 Labs: Abnormal lab results 04/04/16 04/04/16 04/05/16 Range/Units 17:13 21:14 05:45 WBC 11.9 H (4.5-11.0) K/mm3 Hgb 10.5 L (11.8-15.2) gm/dl Hct 31.9 L (35.5-45.6) % MCV 82 L (84-94) fl MCH 27 L (28-32) pg [place] % (Auto) 7.5 H (0.0-7.3) % [place] # 0.9 H (0.0-0.8) K/mm3 Seg Neutrophils # 8.3 H (1.8-7.7) K/mm3 POC Glucose 124 H 184 H (70-105) 04/05/16 Range/Units 11:30 WBC (4.5-11.0) K/mm3 Hgb (11.8-15.2) gm/dl Hct (35.5-45.6) % MCV (84-94) fl MCH (28-32) pg [place] % (Auto) (0.0-7.3) % [place] # (0.0-0.8) K/mm3 Seg Neutrophils # (1.8-7.7) K/mm3 POC Glucose 166 H (70-105)
--- NOTE | 2016-04-05 16:02 | Event Note ---
Date: 04/05/16 IPR F/U, s/p right TMA. Pt seen this afternoon; wound vac remains off. Therapy notes reviewed and patient is doing well with crutches and NWB status; pending Gabriel shoe. Pt recommended for home with home health if needed at d/c. Please call for any further questions. Thank you for consultation.
[2016-04-06] MEDS: NOVOLOG SUB-Q SCH ×2 (00:26→12:45)
[2016-04-06] MEDS: NORCO 5/325 PO PRN ×2 (03:12→10:36)
[2016-04-06 06:27] LABS: Basophils % (Auto) 0.4 % (0.0-1.8); Hematocrit 33.5 % (35.5-45.6); Hemoglobin 10.9 gm/dl (11.8-15.2); Mean Corpuscular HGB Conc 32 % (32-34); Mean Corpuscular Hemoglobin 27 pg (28-32); Mean Corpuscular Volume 83 fl (84-94); Platelet Count 303 K/mm3 (140-440); Red Blood Count 4.04 M/mm3 (3.65-5.03); Red Cell Distribution Width 14.2 % (13.2-15.2); White Blood Count 14.5 K/mm3 (4.5-11.0)
[2016-04-06] MEDS: PLAVIX PO SCH (10:25)
[2016-04-06] MEDS: LOVENOX SUB-Q SCH (10:25)
[2016-04-06] MEDS: NORVASC PO SCH (10:25)
[2016-04-06] MEDS: PROTONIX PO SCH (10:29)
--- NOTE | 2016-04-06 11:06 | Progress Note ---
Assessment and Plan Assessment and plan: 55 Yo male with HTN, DM, PAD, CAD S/P CABG, Nicotine Dependence, Metabolic Syndrome, diabetic Foot admitted for right Transmetatarsal amputation 04/02/16. Pt denies fever, chills, CP, Palpitation, NVD, shortness of breath, productive cough, or skin rashes. Assessment * Diabetic foot with severe PVD * Status post TMA * Diabetes mellitus * PVD * PAD * HTN * Leukocytosis Plan * Continue wound dressing and debridement was planned by vascular, surgery. * Continue meropenem 1 g IV twice daily as started by surgeon based on discussion with Dr. Carbajal on the culture that grew. No cultures that here. * Continue good hyperglycemic control * Continue blood pressure control. * DVT and GI prophylaxis * Plan discussed with the patient * Thank you for allowing us to take part in the care of your patient. We will follow with you while patient remains in the hospital. History Interval history: Follow-up diabetes Patient seen and examined this morning in no acute distress Denies any chest pain, nausea, vomiting, diarrhea No fever noted blood pressure controlled No adverse events reported to me by nursing staff Hospitalist Physical - Physical exam Narrative exam: VITAL SIGNS: Reviewed. GENERAL: The patient appeared well nourished and normally developed. Vital signs as documented. HEAD: No signs of head trauma. EYES: Pupils are equal. Extraocular motions intact. EARS: Hearing grossly intact. MOUTH: Oropharynx is normal. NECK: No adenopathy, no JVD. CHEST: Chest with clear breath sounds bilaterally. No wheezes, rales, or rhonchi. CARDIAC: Regular rate and rhythm. S1 and S2, without murmurs, gallops, or rubs. VASCULAR: No Edema. Peripheral pulses diminished in lower extremities. ABDOMEN: Soft, without detectable tenderness. No sign of distention. No rebound or guarding, and no masses palpated. Bowel Sounds normal. MUSCULOSKELETAL: Good range of motion of all major joints. Right TMA NEUROLOGIC EXAM: Alert and oriented x 3. No focal sensory or strength deficits. Speech normal. Follows commands. PSYCHIATRIC: Mood normal. SKIN: No rash or lesions. - Constitutional Vitals: Temp Pulse Resp BP Pulse Ox 98.8 F 80 14 138/79 97 04/06/16 07:30 04/06/16 10:25 04/06/16 10:36 04/06/16 10:25 04/06/16 07:30 General appearance: Present: no acute distress Results - Labs CBC & Chem 7: 04/06/16 06:00 04/03/16 04:51 Labs: Laboratory Last Values WBC 14.5 K/mm3 (4.5-11.0) H 04/06/16 06:00 RBC 4.04 M/mm3 (3.65-5.03) 04/06/16 06:00 Hgb 10.9 gm/dl (11.8-15.2) L 04/06/16 06:00 Hct 33.5 % (35.5-45.6) L 04/06/16 06:00 MCV 83 fl (84-94) L 04/06/16 06:00 MCH 27 pg (28-32) L 04/06/16 06:00 MCHC 32 % (32-34) 04/06/16 06:00 RDW 14.2 % (13.2-15.2) 04/06/16 06:00 Plt Count 303 K/mm3 (140-440) 04/06/16 06:00 Lymph % (Auto) 18.0 % (13.4-35.0) 04/06/16 06:00 [place] % (Auto) 6.2 % (0.0-7.3) 04/06/16 06:00 Eos % (Auto) 2.0 % (0.0-4.3) 04/06/16 06:00 Baso % (Auto) 0.4 % (0.0-1.8) 04/06/16 06:00 Lymph # 2.6 K/mm3 (1.2-5.4) 04/06/16 06:00 [place] # 0.9 K/mm3 (0.0-0.8) H 04/06/16 06:00 Eos # 0.3 K/mm3 (0.0-0.4) 04/06/16 06:00 Baso # 0.1 K/mm3 (0.0-0.1) 04/06/16 06:00 Seg Neutrophils % 73.4 % (40.0-70.0) H 04/06/16 06:00 Seg Neutrophils # 10.7 K/mm3 (1.8-7.7) H 04/06/16 06:00 PT 13.9 Sec. (12.2-14.9) 04/02/16 06:45 INR 1.08 (0.87-1.13) 04/02/16 06:45 Sodium 137 mmol/L (137-145) 04/03/16 04:51 Potassium 4.3 mmol/L (3.6-5.0) 04/03/16 04:51 Chloride 101.6 mmol/L (98-107) 04/03/16 04:51 Carbon Dioxide 22 mmol/L (22-30) 04/03/16 04:51 Anion Gap 18 mmol/L 04/03/16 04:51 BUN 16 mg/dL (9-20) 04/03/16 04:51 Creatinine 1.3 mg/dL (0.8-1.5) 04/03/16 04:51 Estimated GFR 58 ml/min 04/03/16 04:51 BUN/Creatinine Ratio 12.30 % 04/03/16 04:51 Glucose 207 mg/dL (75-100) H 04/03/16 04:51 POC Glucose 112 (70-105) H 04/06/16 07:36 Calcium 8.0 mg/dL (8.4-10.2) L 04/03/16 04:51
--- NOTE | 2016-04-06 12:29 | Progress Note ---
Assessment and Plan The patient is status post transmetatarsal amputation with partial closure. He has foul-smelling drainage from the wound as well as erythema around the incision. I have discussed with him that the best option to salvage his foot is to hold, debride all unhealthy tissue, and allow the wound to close by secondary intention. I also called his infectious disease doctor, Dr Carbajal, and discuss his antibiotics. Based on previous wound cultures the patient was to be started on Meropenem 1 g IV twice a day. We will start this antibiotic while he is in the hospital with the plan to debride the wound tomorrow. I discussed this plan with the patient, he agrees and would like to proceed. Subjective Date of service: 04/06/16 Principal diagnosis: gangrene Interval history: Patient is without complaints Objective - Constitutional Vitals: Vital Signs - 12hr 04/06/16 04/06/16 04/06/16 07:30 10:25 10:36 Temperature 98.8 F Pulse Rate 80 Pulse Rate [ 73 Brachial] Respiratory 16 14 Rate Blood Pressure 138/79 Blood Pressure 153/85 [Left Arm] O2 Sat by Pulse 97 Oximetry General appearance: Present: no acute distress - Respiratory Respiratory effort: normal Extremities: normal temperature, abnormal (the right foot has significant erythema around the incision as well as foul-smelling drainage from the lateral aspect of the wound. There is necrotic tissue within the base of the wound.) - Labs CBC & Chem 7: 04/06/16 06:00 04/03/16 04:51 Labs: Abnormal lab results 04/05/16 04/05/16 04/06/16 Range/Units 17:10 20:43 06:00 WBC 14.5 H (4.5-11.0) K/mm3 Hgb 10.9 L (11.8-15.2) gm/dl Hct 33.5 L (35.5-45.6) % MCV 83 L (84-94) fl MCH 27 L (28-32) pg [place] # 0.9 H (0.0-0.8) K/mm3 Seg Neutrophils % 73.4 H (40.0-70.0) % Seg Neutrophils # 10.7 H (1.8-7.7) K/mm3 POC Glucose 182 H 181 H (70-105) 01/24/17 01/24/17 Range/Units 07:36 11:31 WBC (4.5-11.0) K/mm3 Hgb (11.8-15.2) gm/dl Hct (35.5-45.6) % MCV (84-94) fl MCH (28-32) pg [place] # (0.0-0.8) K/mm3 Seg Neutrophils % (40.0-70.0) % Seg Neutrophils # (1.8-7.7) K/mm3 POC Glucose 112 H 166 H (70-105)
[2016-04-06] MEDS: NACL 0.9% 1000 ML 1,000 ML IV SCH (12:55)
[2016-04-06] MEDS: MERREM/NS 500 MG/50 ML 50 ML IV SCH (12:58)
--- NOTE | 2016-04-06 19:38 | Anesthesia Consultation ---
Anesthesia Consult and Med Hx Date of service: 04/07/16 - Airway Anesthetic Teeth Evaluation: Poor (missing teeth) ROM Head & Neck: Adequate Mental/Hyoid Distance: Adequate Mallampati Class: Class II Intubation Access Assessment: Probably Good - Pulmonary Exam CTA: Yes - Cardiac Exam Cardiac Exam: RRR - Pre-Operative Health Status ASA Pre-Surgery Classification: ASA3 Proposed Anesthetic Plan: General - Pulmonary Hx Smoking: Yes - Cardiovascular System Hx Hypertension: Yes Hx Coronary Artery Disease: Yes (CABG 2008) Hx Heart Murmur: Yes ( A CHILD) Hx Peripheral Vascular Disease: Yes - Central Nervous System Hx Psychiatric Problems: No - Gastrointestinal Hx Ulcer: Yes Hx Gastroesophageal Reflux Disease: Yes (controlled on meds) - Endocrine Hx Renal Disease: Yes (L kidney stone) Hx Non-Insulin Dependent Diabetes: Yes - Hematic Hx Anemia: Yes - Other Systems Hx Cancer: No - Additional Comments Anesthesia Medical History Comments: Pt has hx smoking, CABG, HTN, DM, and GERD.
[2016-04-06] MEDS: DILAUDID IV PRN (21:59)
[2016-04-07] MEDS: NORCO 5/325 PO PRN ×2 (05:30→18:00)
[2016-04-07] MEDS: DILAUDID IV PRN ×4 (05:35→19:15)
[2016-04-07] MEDS: MERREM/NS 500 MG/50 ML 50 ML IV SCH ×4 (05:36→21:36)
[2016-04-07] MEDS ORDERED: NACL 0.9% 1000 ML 1,000 ML IV SCH (06:00)
[2016-04-07] MEDS ORDERED: PEPCID PO NR (06:00)
[2016-04-07] MEDS ORDERED: VERSED IV NR (06:00)
[2016-04-07 06:05] LABS: Basophils % (Auto) 0.7 % (0.0-1.8); Eosinophils % (Auto) 1.8 % (0.0-4.3); Hematocrit 32.8 % (35.5-45.6); Hemoglobin 10.7 gm/dl (11.8-15.2); Mean Corpuscular HGB Conc 33 % (32-34); Mean Corpuscular Hemoglobin 27 pg (28-32); Mean Corpuscular Volume 83 fl (84-94); Platelet Count 317 K/mm3 (140-440); Red Blood Count 3.95 M/mm3 (3.65-5.03); Red Cell Distribution Width 14.1 % (13.2-15.2)
[2016-04-07] MEDS ORDERED: XYLOCAINE MPF 2% ONE (07:28)
[2016-04-07] MEDS ORDERED: SUBLIMAZE ONE (07:29)
[2016-04-07] MEDS ORDERED: DIPRIVAN 10 MG/ML IV ONE (07:29)
[2016-04-07] MEDS: NOVOLOG SUB-Q SCH ×3 (07:35→18:38)
[2016-04-07] MEDS ORDERED: NACL 0.9% IR ONE ×2 (08:25)
--- NOTE | 2016-04-07 08:50 | Operative Report ---
Operative Report Operative Report: Date of Procedure: 04/07/2016 Pre-operative Diagnosis: Infected Right Transmetatarsal Amputation Post-operative Diagnosis: Same Procedure(s): 1. Excisional Debridement of Skin and Muscle and Soft Tissue of Right Transmetatarsal Amputation Surgeon: Serge Berg M.D. Systems Software Designer: None Anesthesia: Gen. endotracheal anesthesia EBL: Minimal Counts: Correct Complications: None Condition: Stable Findings: Necrotic tissue within the transmetatarsal amputation including the plantar flap. Specimen: Skin muscle soft tissue sent to pathology Indication: The patient is a 55-year-old male with a history of peripheral vascular disease and diabetic foot ulcers that recently underwent transmetatarsal amputation. He began to have foul-smelling drainage from the amputation site that is so decision was made to reopen the amputation and debridement all necrotic tissue. He was given the risks, benefits, and alternative procedures and consented to procedure. Description of Procedure: The patient was brought to the operating room and laid in supine position. After general endotracheal anesthesia was achieved with right foot was prepped and draped in normal sterile fashion. A hemostat was used to remove his previously placed meng and sutures were used to cut through the previously placed deep sutures. Upon entering the wound was a foul smell with some necrotic tissue mostly along the plantar surface flap and on the lateral aspect of the vulvar area previously had a nonhealing fifth toe amputation. Curved Mayos were used to resect the posterior flap and sharply debride necrotic tissue on the lateral edge. Further debridement was achieved with pulse lavage. After pulse lavage the remaining necrotic tissue was sharply debrided including soft tissue and muscle with curved Mayos. Once all necrotic tissue had been removed hemostasis within the wound was achieved with cautery and direct pressure. Of note all remaining tissue appeared healthy with excellent bleeding surface. The wound was then packed with Betadine soaked gauze and then further dressed with fluffs, a Kerlix roll, and a 4 inch Maury bandage. The patient tolerated the procedure well. All sponge, needle, and his counts were correct. The patient is taken to recovery in stable condition.
[2016-04-07] MEDS ORDERED: DILAUDID ONE (09:08)
[2016-04-07] MEDS ORDERED: ZOFRAN IV PRN (09:15)
--- NOTE | 2016-04-07 10:24 | Anesthesia Day of Surgery ---
Anesthesia Day of Surgery - Day of Surgery Patient Examined: Yes Patient H&P Reviewed: Yes Patient is NPO: Yes
--- NOTE | 2016-04-07 10:25 | Post Anesthesia Evaluation ---
- Post Anesthesia Evaluation Patient Participated: Yes Airway Patent: Yes Stable Respiratory Function: Yes Temp > 96.8F: Yes Pain Manageable: Yes Adequeate Hydration: Yes Anesthesia Complications: No Block Receding Appropriately: Not Applicable
[2016-04-07] MEDS: LOVENOX SUB-Q SCH (12:00)
[2016-04-07] MEDS: NORVASC PO SCH (12:07)
[2016-04-07] MEDS: PLAVIX PO SCH (12:08)
[2016-04-07] MEDS: PROTONIX PO SCH (12:09)
--- NOTE | 2016-04-07 12:10 | Progress Note ---
Assessment and Plan Assessment and plan: 55 Yo male with HTN, DM, PAD, CAD S/P CABG, Nicotine Dependence, Metabolic Syndrome, diabetic Foot admitted for right Transmetatarsal amputation 04/02/16. Pt denies fever, chills, CP, Palpitation, NVD, shortness of breath, productive cough, or skin rashes. Assessment * Diabetic foot with severe PVD * Status post TMA * S/P cystoscopy debridement of skin and muscle and soft tissue of the right TMA * Diabetes mellitus * PVD * PAD * HTN * Leukocytosis Plan * Continue wound dressing and debridement was planned by vascular, surgery. * Continue meropenem 1 g IV twice daily as started by surgeon based on discussion with Dr. Carbajal on the culture that grew. No growth in cultures done here yet. * Mild elevation in glucose likely secondary to patient's nothing by mouth status prior to treatment and insulin-dependent health will continue to monitor. * Continue blood pressure control. * DVT and GI prophylaxis * Plan discussed with the patient * Thank you for allowing us to take part in the care of your patient. We will follow with you while patient remains in the hospital. History Interval history: Follow-up diabetes He is status post TMA and today also excisional debridement of skin and muscle and soft tissue of the right TMA Patient seen and examined this morning in no acute distress Denies any chest pain, nausea, vomiting, diarrhea No fever noted blood pressure controlled No adverse events reported to me by nursing staff Hospitalist Physical - Physical exam Narrative exam: VITAL SIGNS: Reviewed. GENERAL: The patient appeared well nourished and normally developed. Vital signs as documented. HEAD: No signs of head trauma. EYES: Pupils are equal. Extraocular motions intact. EARS: Hearing grossly intact. MOUTH: Oropharynx is normal. NECK: No adenopathy, no JVD. CHEST: Chest with clear breath sounds bilaterally. No wheezes, rales, or rhonchi. CARDIAC: Regular rate and rhythm. S1 and S2, without murmurs, gallops, or rubs. VASCULAR: No Edema. Peripheral pulses diminished in lower extremities. ABDOMEN: Soft, without detectable tenderness. No sign of distention. No rebound or guarding, and no masses palpated. Bowel Sounds normal. MUSCULOSKELETAL: Good range of motion of all major joints. Right TMA NEUROLOGIC EXAM: Alert and oriented x 3. No focal sensory or strength deficits. Speech normal. Follows commands. PSYCHIATRIC: Mood normal. SKIN: Right Lower extremity with wound dressing in place no overt drainage noted to the Maury bandage. - Constitutional Vitals: Temp Pulse Resp BP Pulse Ox 97.7 F 73 18 144/80 95 04/07/16 10:30 04/07/16 10:30 04/07/16 10:30 04/07/16 10:30 04/07/16 10:30 General appearance: Present: no acute distress Results - Labs CBC & Chem 7: 04/07/16 05:30 04/03/16 04:51 Labs: Laboratory Last Values WBC 13.0 K/mm3 (4.5-11.0) H 04/07/16 05:30 RBC 3.95 M/mm3 (3.65-5.03) 04/07/16 05:30 Hgb 10.7 gm/dl (11.8-15.2) L 04/07/16 05:30 Hct 32.8 % (35.5-45.6) L 04/07/16 05:30 MCV 83 fl (84-94) L 04/07/16 05:30 MCH 27 pg (28-32) L 04/07/16 05:30 MCHC 33 % (32-34) 04/07/16 05:30 RDW 14.1 % (13.2-15.2) 04/07/16 05:30 Plt Count 317 K/mm3 (140-440) 04/07/16 05:30 Lymph % (Auto) 16.7 % (13.4-35.0) 04/07/16 05:30 [place] % (Auto) 7.3 % (0.0-7.3) 04/07/16 05:30 Eos % (Auto) 1.8 % (0.0-4.3) 04/07/16 05:30 Baso % (Auto) 0.7 % (0.0-1.8) 04/07/16 05:30 Lymph # 2.2 K/mm3 (1.2-5.4) 04/07/16 05:30 [place] # 0.9 K/mm3 (0.0-0.8) H 04/07/16 05:30 Eos # 0.2 K/mm3 (0.0-0.4) 04/07/16 05:30 Baso # 0.1 K/mm3 (0.0-0.1) 04/07/16 05:30 Seg Neutrophils % 73.5 % (40.0-70.0) H 04/07/16 05:30 Seg Neutrophils # 9.6 K/mm3 (1.8-7.7) H 04/07/16 05:30 PT 13.9 Sec. (12.2-14.9) 04/02/16 06:45 INR 1.08 (0.87-1.13) 04/02/16 06:45 Sodium 137 mmol/L (137-145) 04/03/16 04:51 Potassium 4.3 mmol/L (3.6-5.0) 04/03/16 04:51 Chloride 101.6 mmol/L (98-107) 04/03/16 04:51 Carbon Dioxide 22 mmol/L (22-30) 04/03/16 04:51 Anion Gap 18 mmol/L 04/03/16 04:51 BUN 16 mg/dL (9-20) 04/03/16 04:51 Creatinine 1.3 mg/dL (0.8-1.5) 04/03/16 04:51 Estimated GFR 58 ml/min 04/03/16 04:51 BUN/Creatinine Ratio 12.30 % 04/03/16 04:51 Glucose 207 mg/dL (75-100) H 04/03/16 04:51 POC Glucose 129 (70-105) H 04/07/16 11:43 Calcium 8.0 mg/dL (8.4-10.2) L 04/03/16 04:51
[2016-04-07] MEDS ORDERED: SILVER NITRATE TP ONE (14:46)
[2016-04-08] MEDS: DILAUDID IV PRN ×2 (00:41→10:50)
[2016-04-08] MEDS: MERREM/NS 500 MG/50 ML 50 ML IV SCH ×6 (00:53→18:19)
[2016-04-08] MEDS: NORCO 5/325 PO PRN ×2 (02:31→20:48)
[2016-04-08] MEDS: NOVOLOG SUB-Q SCH ×8 (07:52→23:00)
[2016-04-08] MEDS: NORVASC PO SCH (09:54)
[2016-04-08] MEDS: PROTONIX PO SCH (09:54)
[2016-04-08] MEDS: PLAVIX PO SCH (09:54)
[2016-04-08] MEDS: LOVENOX SUB-Q SCH (09:55)
[2016-04-08] MEDS ORDERED: DAKIN'S HALF STRENGTH TP PRN (13:00)
--- NOTE | 2016-04-08 13:45 | Progress Note ---
Assessment and Plan No further bleed through from the patient's TMA after bandage reinforcement yesterday afternoon. Half strength Dakin's solution ordered. Once this is available then we will change his bandages. Continue antibiotics. Hospitalist help appreciated. 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 Objective - Constitutional Vitals: Vital Signs - 12hr 04/08/16 04/08/16 04/08/16 02:31 04:25 08:00 Temperature 98.9 F 99.2 F Pulse Rate Pulse Rate [ 82 72 Brachial] Respiratory 20 20 18 Rate Blood Pressure Blood Pressure 138/64 128/60 [Left Arm] O2 Sat by Pulse 96 98 Oximetry 04/08/16 09:54 Temperature Pulse Rate 72 Pulse Rate [ Brachial] Respiratory Rate Blood Pressure 128/60 Blood Pressure [Left Arm] O2 Sat by Pulse Oximetry General appearance: Present: no acute distress - EENT Eyes: EOM intact ENT: hearing intact - Neck Neck: supple - Respiratory Respiratory effort: normal Extremities: abnormal (bandages removed. Open wound was evaluated. No significant bleeding at present. Pictures taken please refer to images. The foul odor has completely resolved.) - Neurologic Neurologic: no focal deficits - Psychiatric Psychiatric: appropriate mood/affect, intact judgment & insight, cooperative - Labs CBC & Chem 7: 04/07/16 05:30 04/03/16 04:51 Labs: Abnormal lab results 04/07/16 04/07/16 04/08/16 Range/Units 15:34 22:49 08:18 POC Glucose 233 H 298 H 220 H (70-105) 04/08/16 Range/Units 11:38 POC Glucose 235 H (70-105) [id number],[facility];/9j/4AAQSkZJRgABAQEAYABgAAD/ 2wBDAAEBAQEBAQEBAQEBAQEBAQEBAQEBAQEBAQEBAQEBAQEBAQEBAQEBAQEBAQEBAQEBAQEBAQEBAQEB AQEBAQEBAQH / 2wBDAQEBAQEBAQEBAQEBAQEBAQEBAQEBAQEBAQEBAQEBAQEBAQEBAQEBAQEBAQEBAQEBAQEBAQEBAQEB AQEBAQEBAQH /aRMAIAChK6PPTUPDSeHZAuJG/8QAHwAAAQUBAQEBAQEAAAAAAAAAAAECAwQFBgcICQoL/ 0PIyEOJKvEJLuUBQhZWXUOTUEP4CQVJILOMKQDwJWCYX7MsJrFjJGEDjdTUN7LarPEI6mDaS7IpwavIC bfLVNyfVcknOVi4URO6CWu0V2BBMouFWXwGXCZFA2nHAzEgGRVkjLsec9X6zce6aAnLxRCZm7bHsmRIm EXZw3tSyqWjpRHfz8hptbMnqRW5l0j9hjVItCYQi4gWzfQE5FUO58pR9lPq7 +Gu2gsh0rxj2mF27oi2+Pn6/8QAHwEAAwEBAQEBAQEBAQAAAAAAAAECAwQFBgcICQoL/ 3PQtMTSXiRJEWQWUXxMXSUCSMU7SGPFQiNTIMKxCuCQDRxveNBmCyJIXRCSfpCFFZLgGlSDYuRZMeSfB KSt8SgPQFpvGogfDpS4Fnl0YxJYIHSSNVtXS6KXEpgQPCiwXBMbE2xywaC2zAQ4sMe3onYSgAlNxUtNq eZClFqApMcrvkXrytterHhegeN7sov4zMi2rkPBdivQeElT8hUR5mvS6Wev7sKl4kck1Ghy2iJ1 9fb3+Pn6/9oADAMBAAIRAxEAPwD+ uHAVUQXr9hOYhJWuyiwC2PJFVxINTPHTx8kg2B9fPjHCBWKgLiUPINnyRH0C8VVTNNuwvKCCEZ98VDgd ieJ1QUUmFqbaJrREKS38gcIhHKSKH64I8BS1mmjfplltjusMAyb +/GZu1xl7e65HV6OS1/KybTLzAX8v08/Edq0nZkxIPTOCcB5GaQEUQlQrZ01ZRQP/ yAldmditk9iC7K5v61DxRpZOGlw74i3Gp9cZvLrdOIeY0ThbkgH2fYbzbySDRPPo2GYhjnfMNMDbwTG9 RqVEWf9dvjvyWkmVBJqpL0vg +nE9qlCueKb1rUJRhc2R+suyFfwULQ6vNapyJQ6sd8tVBRXQDJDIRpkGhg6uJIxgV5kTXcxuYv1C08eV +5vvOE9ozTZMn5E+DwHAWzCsj0StLcuGD2P0pvDmmn2s5FJJa86TaQhhEXfKdgx5T3G0u9hIjRYNuz0+ nZ9Gtr/ r09MI9GhmmLD2TTGYgXlQmULPmD2QqFEXOfBMpCZYZE8pkD2elUcFyYHZULSZEyqTVse7KgENHsmFCrB aN3YPXjuVSZ86IDK8c2GMRAlQ1N7sgFWSl2IW2LWEibv0CHfVThw8XVdbkA8b09RJvemi4w7htQXm22p eiFggJjnfBpU2Smpu + hF97oxXPKUuYXmvEe6bkCe2QWt5jXg1yFRuU0mSmr66qeiqzIH5KkxvONN56QLqhqt6pn3SqsBjnAHVB 98G832Zx8Gc7vwJgFuWt +u+ qQWuqTlGWIlJFCVTxgHjqjeXjpuUF3jF1QdiX3P9aLUu86XWMNlCHdTHbE19zYkBQ2Ep8DAXiiNVfysp X1wGoczWgPS93T0NVAaGUTvDi4H +LrAw1Z0U281357x/zSS9cs2Z3d9wfzO/ KD2xcLrzjnB2k9oitxTDhSVbejnLUZuWIANVJUAlomOUeHidvYtDf6ukF2shZrs3JSGFkYWGuruR2jCx 5e2m4TZHUlTBKIRqshmQ33vDoQbIsnJbVF3XIvBBsmwv /wCHZ2/rfqPeX1kx8wt5Qbg06zd958LW+ 9fmdBRhLfd9sKmZMN8fhNIYZMM9BhjCigmK8hXEnqaGMtlGSL5NIj1G1hyxFaZMwg618NSeN8VDcLPJX 0HHgnuWIeXS86EWsHmzreexXZi27K8Fvi5 +0rlyxYFP3g+rLRBr15A8Ycjw/ wPQHFFKefqUohfPTLGXGwUNjJ07RhVd1Y8rxpNbLBG4GSduZIjl5ZTvV9HRJN9DOLEYz9sKLVPYGJxj5 m70ydt9hPeXpBbXL5obLsZTBZ99MIe9Rf5VZHsltxtt1yt406 /g8Yogb393+fTr+ftUxAlbf6PzSjDQJTEOo4IPdFC1kZmUgxEneRJqUcG3+ uX7dlfhCWztBWMP0pm0BjaEXREUwd+9B1tFppKD6UBMJZFJR0zIf/ns6RZJskgGYUfF62+ 0LJFJcjB2lqU/ WU2mGjp1VJUthYhe525654VuJWZ7oueD75vljLZVaFHw56d3YaNySFg2PXTWTMIcbfyPem6glT5H9gj1 yc1Z9Ogywwmj3 /oFIe0YZmFhyvLjATxF24HLBMQrtCz1MMkiIF45gbu41v0ihWn710lu70KNM0zrqKty0k3/ vE9JOjuZxxrtpG+siB1GGXZ+n9DrJBUCB7WNSZeyuG6N8W8lLERcY+ XkF3wYtaiwAzGFDlTBZFYeY8LX1NmqIWUIvYF5UCGrZpd6p0P5YkqCX47EHy2vzci/GG84G5lDx/ du91v/ GZyh5rNW3NPBZFcEBNJQuDh6Swv0h0x98zYTM4ZkSrLZP75rht3W7aCrOZDKL2DQYPY1KdZrX8kRGznd JUSvUgX2j7gxyuPEQzQIpP24ucrkSKNuuK6Wj1YHp /wWjb8stiIx+sj97KUyL24X409upn0Rj8a8uSpxl/ a4FggswTV4PGISPOXGHhxAESeLM9TDaYATq3RDcj+nPGOMNheBkn+ JNOVlTgplswfirrtHS8hQxylTjMqqqSgdiAxWtZ3GsZz0Qbf9UBe1nQAYGcBdxVT5EGUnss2pfnuRkd0 knkaJmu865t60Brdki0ug0mv753LiLX9 /cLLERkVHdaQj7pK+VQE2hfGPJYZ9wnuo9e6AWXzDwuJLTDUYFTrCo+ 0XaksbRi3XLkA5kL9MjVcdJJqR8RFSndy44tQ6SBWU1PUc7S+moVw8WQIWRjuc7w3bLv06pD/ENGuj+X /Cys1i767aoIZxd/JWliKLVQbr0R7FMQA7nHYsU5eyiZbx9CX477zYlQB/ LVBiii87rie8gtYYO2tTRMrnXwPpHF6RlzhaFRfGVR8pmG3R358hmdSK086S4c/ i4zvmpVL8ECcr8pOSam4ud778s0wacYRqFLQeE10yewttIX33eTlwY021svwXMjO+ 1iruObFJgqxju28pgRLDebhPsNIPNwVedqZ4MgTWMLwDVdqZYoh+S1wMpq8fojhF7CGxGR/ 6nWM4DPtpm33778D/AMNu+5snZJWtrtZdfN/2aaz9zuTwjtz0HITAozc89T9RJ0vYmtC8W/ cML5OL4KBnazr4BPc0Mnnr6GCC8FZuFP0xGswmFkkrLWTCuZT5yLHipJo7o6TKvZLOas8zv75Iss/ gSRKejWH1Yf9ctaNDQIzJn4d42tS+gP7nvkMzsnpE/ pMr8kowFWhQ1vanZQ1XYI22UXzdR78HT4CTYUIUIYQjVSTGhA5CZvJOdG3fOhrXBqV1N5OICKbFw9qIu pDEGfYVrg9MOfWJRw378LSplgW33BoG0IbFbxWIXNOYmYCJtUrN909l6Zcx7U8k6VnGRhcyky /0tptp0+7zVPUzBWLjaH1naudN+ 8buMJFGInPbJ01JcfdAyZIt4NbPM8trQRNvJufzopLQ6sGMdLadVWFoHhAo0ugnisoqigjBN5rsUk+ r9w9mkmPHrxAq+Hx/zkvA7whOpAGRc0huSMukKwLWFlNBVGPfAy9HQWdRSMHvi4l329005Ci6S2R+/ zU1ivzX5L1tJ5aj+vcmx81MQQkTn6cxkK8AE+6jn3Cctqf9o/ Kz7y1E1YlcjUTH7T2gnISz8hcyFgpvvwsFu6C64JTuPLWbpAHC8jIM3cqOzzg6L/uT4huWnwiuLsG9+ pbLaskbcbz6u6Tsz07103q22140HkhX7YP3yOjle4mv59+fivpS3lfVgAPY+Rw4FTo1GABvU2vaBgu05 /slY7YyxgupqmWilx6iXa6XSeQaRDYCffVDsuQH/mhFChXOfmVj+ quzkayvjU6RHIstYWmPQw0Gw2tzlZd+rNb1mw0kIK/ek1UoTYNXtUOhpo7sEu5gh3YNUjvc7/ T12YM0xuXrpXKAfCm0SzSi8fVquf0v0i+qvrq/JYL36QUabtBNE5ldrx58/TU/qJ/ GJcScoFKfjXcX0ClYTgfv9Qtrv5PxDd+7YE7hYqZ9uEM7NDIQHvZ40u5D351JRJleAj53L5LHNt+ w28RGgJP0FuL5fYrtqZkepBQaFoqMhne4cFrJ4IcNnJ8kfUnOOW4H9FyZdJd1ONbtVUu5BpyY4rEL9eA ISD1utgIIiLfdfyzdykxeTBs63LMq26mqduteE44keaEZhYOVP7VH2OCJ + qaOW19OmXdcRCPKQ8AWHmwsqXMz4qplLTnvTgWDEAi0uhp9bmLuswoX4MMwKyBHnmSObyHIeuFMNAYqa 91wPg8lwrKk5Vz5ufQl9k0 + Z0Gjffw2K4Pr7rpc9Ya9n69cvkqmxVIGNdqWv8ZEGT6jt43TURDsPpvNDvr9pe2UXNGPTkX1akBqXhAh QSpR7bZtyZ0vqro9vBk8j7hxXdOjhajZkx /TmXxcnpMNzp0fmjs8465f8899W72PIF5c7get35A/BmeJkti5x/ ranuE64S9VYVGNu2OAwCZg5GMRHPEClR7+ 19PVB7azii6WgXAB82YLJgd0clQ0fmfiaTYkXt8YEC9w75w/VNC2ZNMYujMmbdyokOmxXlp8wj+ gOAh7qfNsxEck11WvfRSeXmBkrEhdeDFiQQU99XfhwAckIHWUF7Oc2m4K1ate8OXD3udHOm+ ZKS3I9CHMa128VQclOhlupKRXJAtBqXvN3ZvXPETl/K6IdctWvqorHkc9yUprtrnyw5Qy1am7g0zxb6V /AMXtCJ7BYLt8WUhzEXGERA8RStaQ2CQt951lC9Bjohqc827WLMnSde0GSs3fqDNg44BAXT1/ la05Hv94S9Ap77xnLhj0GJ6hGY8c0Eq2p/XtxjwEDwyli12TmY/tQxvG3UzXFMnxg/ 1JsvjcXI5zdy7ne4S52am6m2Fyd62C6xm3mkpPqcxO58AmE6zT7XCJlvbzcbnMCHz56V4pq78mK0Gjw4 prfzWu /fz1jO/TRde3n+do2xjwbx1zitbX+3bPU/ BiKFAiXFPXUZREeSU5srbG01Cy171bGhNDQYQSOK66ZPmm0c2tbp7pSSEVP13RrdMl3ZZ7IIiuFAFqq6 ddHZvp /pGDA7GSnd760U/Av+jWu+ bsedPtCzeZFFSEPg85RqNKBdb2qsZagxQL7VKXbCBoXFa43bQrdo8Lcbkj6jKhE8DGBPMf1I9S1SZDIC DDHB +NIppfCmtBGjjKGAEbmoIU845DiUu+Odw42X4aAjc0D1LDs/O/Xv6+ jojUkWNJYN9m6H2p4Xdy56Oz93XWieaOM6AQCvC625TragXNxmnsZN8QE+UAg+ q4EqBNug8LBunFlhGk9oCdNUyAW/ VPxrr0JnF6dVMrp1rl7MCy286F3L5h2TfLnkJi5Dogsvr28LthJmujZoNgo50kMfG+ F1jVNZXZQGxqpmSVEt1QpGtyywerR6N6bcbnP0xtDr2iMGR4RQpEdrgFRe9Dwv2x16vBk/ 4QK8LkswM5jkR1EspHQ9baTEVeyCaesQj601RhoiK+SfX5/ Q5dJ4nCwiy6wzs57ct1h4GVdkbv5naymQi1MU1yJQDZjv6uEmOkn6zCyD0ufn/ ZCT2f2290anzD8Nl3nRs3AK5TKEPVbDVIubfolR81WoMFCxBW6XwC7vRr4UGJAQFA/ fG34ARFX1oZ6IpqgMn99/JuissDNH4F/vUecb7na2uV4b2KMC5r/ NhfUdIN5UjT0KV3Tn72rEUR4vTQJ1rhgSaGdFk03ZI9bL1JPNcnn298mbYqSyGOs7ZU4ZGXBE09v1oeG mulpCJlz03529RZPimv8xIMoPxb685zjcnzH3agyR16F6fAo0H8yi364H1 +ZqcezXWqj9wOZJwYtwnVTHngU7YpxiRLUPDKaKqSQWI1IB3HpkPwzKdbDaQkQasZ6dBQ+ QZAe71ZDnfIPBSdTeBuBOld6AJICBOAX+eCtCaYL2LV7LrMGR9RFXwByuswzDHJNYVC+ ROk2iFvJJTryI3Zbx1915O7XSMNcwh22y3/Pz/J/ p9juEEKE452xXhyJNqDJC2KYuTBIB8SonGL8UiLm4uQ0JStnpKa17kMMR2ELpAQ4GNN5JJae+ QMjI86UhFq1PJmgO856Eo4MzsyOPxr4VZtOzFWDhITZRZHVghzOP0k0OJlVqzV66Hzt1FXpvy4/ UZKUQaD99Fwyl61Q2R/ J89WLN7SkzCkMVczWmMNwWMZNPTfgZEkGsTOCWGJvOhXGDEDzVYAqs9eftc5P6pwzt26rcHO4VjDu0dk r04TiyEWiLsfzwjQaGOh5rvaIMeBF0KP9vm0UfqqRwaJuXsKinYtDZdnVKNUntAcs4pq2 /Ppo+iWh0/QTHnQm42iyz0ru559VpeBEtM1ypCXDZWA7UFnSJONdsl+ iDJcDKwzixKr3xrHku7qhTDZC8NpnMljlk1mApqWfJhNuhHHuFoObJe4bxJRYUL42+ R7PuBGkjPAUdSDmAcBSZSJjCAa/ pVbDUfbYlgDHkBhFgTVv93xrxqkJpLkadaqp93QuxBSegCNHl6NZF5hlai5atJyo071dFrPEsGUPWMbz bPqKJKhtrTXCE6NloHnvSc2q6R2vqmA9DQ1COz3ocknk7X51gaoeqqw9Tttxq3CTmkECwjLwCOdR7jT +WJKYwS7cn/wFPAALHhzLSdkTUHscOHVG6vNKkvmr1Fx8UjAMh864+ss3e9zidTHEF4p18dY5+ b9o21PhHnbIRXduMBL5lmpj7D9NKWEplbIF8VVfOmlYFeXgGa2xwO4jWcpa6sIg6nGCJGxaSDsCJoae5 N8MybCXKMxNinGmzyPHOBrtFe +uCM5+VmawbQDhJQMChzfWpP1dhn6o4YXk2VZiJF94f8tWcCVhFVWQOoIMXqxDQ6Fm1j76x2XSs+t9e1 /N4qAgriXJ0K+3lbS3z+3XkO8zbZtoAO2ZoucQcRNS7cZe2cFYpb+ 4n2bKODJpYi1sr4yX2n8P1mJWPMn6ZlNov2uqDJ4HKIOWS8Jp2/ea7Z+O2ObCMOWFAIwweQzSu6p/ Yd6iqUDP+JiP5AL7LfSSYlV0HXWETQBMkDNl0yBBP6KS5jYg4ovvH1x38Nmd6cZ/WF9H2k1ZUnV76d+ gS4U6uN9gEU3HIbDdk8vpaOdvwwWNeOqqCI4CldcAwYeDFLoGFSNNXlUlc3k81dLihy5MCuiuEM6eiKE 4BAsEYxdTdJIJTaBCIg70hzZagCptrNcCCHLYelCxkxQpWD /niTVG40dSNanpzaA5oWz5kbcKgovAGXAlXYjGVNPAzWutCn/Vr+r20O+uxLAlp084qzkn97nnme+ DdVMULW+a39i6uBR3Lfx3DPMLaEKVTBGZFIuJoxZX5/ khoecSbyQGfSwZj40umbQ3IxFyQTAq5HphqFMljrfLtT7XSSIilLRDihsYGLhkgrzRcc0EEorOmsmVC2 3n1poc5SkunvVVeLl3aOn +IHJffX5iHjlRkPlPBw5K6PvisLuUI2Zf1Vf1ZS/b13cfd3aUlFfkEmv/Y4WC78c2w3/4Ga3rc+ blxbfPLt77A6gkyV5Nl6emk9fjpgThE3IiZCxTnyWapQMpn/ E3tk58DVewqQUs6gSelYuBQGdtLOSdhSFfslZTKGFrBVAduOtu9QXa2zIp2AdI8qnubYTOJsGzdGudN5 4siQVCDZCPI8TX6dz322M4vJP3oCFLm84V +/uGdwwOgyDkkkkkneFNLbS+jU5dwi7777g/uiFZVNeVxUYl2Sh+ 0bWlv3Mc8Di5qpqs6Xuc4o1NDL8wTcs7qCrnybib9HdqWxgKVDtwTJU6oybftIYNd6TUTZHEgwslSWSL FGtTg0KpMBVLtaLScw8BTMLSZ4zK +S2Vxg5+ x9tk3E4DQmGKj8syUWe4BRrQkjYA2HHAUaBw0pCfdSSZ7bFQzO4x9Jsw9BTlyLTjNOLxf3O44LkwJuxF 7hhxhecmlCN /munkRgjId7k97bl6q28v4vfXetmbzC+g0M64gh+f9I/ Lu4DlEjxaTQZn46sdgj1b38UMWcBG9eVZM73QcpeoiYVEtsovMWdp22/0nwl8C/ Kdi1P8FQBPNXJPDEYi1jMQdCJ5Pk21tYOk2OD/Jkhl+ f0yHgRlDGAQaKNPHR1xczbSRQS3Nsfp6U4NeqT+KLhAdSx6BoW/Yb245EMHCdJtXnmB/ zpNmBQDDakCnLIn7NrfzXYE718f4iy33wI3x5Te5j4gYl4VnqsflxiIFDvB6m8L5kzch9R5rwGOj4FHb R39rmUNSxnQ1A9wQFKFDfpiICPkFCdUH8n7 /ZnLkZbNNI2PeDOby8QRlqQWz8+eulEi0lpIwbFsxpnIs+wgkQE9aOSPsKtSrFItAFffuv460O0R+ Avdku0is3P9/4Z/ uNZkEhmReU5bXqeBlbYlWu1GDIclfwlMOS0o8YISDjnFbodfeKHcwr9E53MTp227JFbUg5Sb9aPKgnIh S22 +iV7K/Vq9u+2NYwthNRr4ri1gjdYxJSALRTrYAjLFjEZFKOaE0vWQThkTar/BXM1q8E+ CpPmeJQqz1cjGt1zn6bJCn013vNuXWx65NGQ9OPzP5iC1kR+WP7UPj/ 9bj8jm4TqcJ5gH0beT69Wub2axQHFJ/sWVnPkyOmiRjzMDjYy8hDfkN72oRJ8z+ zy2OyEWsd9K5597v6P7Qap6IMz5Nba8gpsJAGVTBlbJCOAV2tI18YjxbQ1ze7YqBxld3Aj4ZxGCalJnc Gny7zQHvFaSi4 +k01MIfL4ayuTyizFoULo/Tpeeeme8K73N620zjQzkhVAdoLl6hh8xX28q/ 1LvieAN1qWGMqzrDoAHCkrFmuQX2wsc64QH1tpiHamPoHvT4ykTZEierkbIKsAcVHj4ShJECMZyzU59c 91qN /sHBCCzbCjVBMKBAv5dFWLfcnFdWxJ3Ab5qnkDqCM82KjiWQy4QaPTO4DI1/ oOeaHPYI4Th5gjd7Rf6fssHy0p24nrwFzg585/BIV4NZ69G+NpgQCG4EP1cMmC7w3SBFdOj+ 8ZuKHIixvQTH9oyBSpcPY3t7sgCjhYr4j+ J0VzAOyNENALrIooup6JlzyrAMYT97TCvLK1PUs0ugTLPBXMDTBAODClafuqsQAO0fOLunPCOIE4jh8w 5e3LKyZ2k665 /Tf1nb7TZaR0Oa92r7Fi+ Ln5QTfxqkPlhggubx8E7GV7K6VoMMt9TWzmMyvynQ0H3aVV3a1ODTCOop7j7kFsOLLL2BOGjs2gOlLpU 0 +DWjM1w6DAHhOwVTvELy759TBcsrNw40QUzGul/ t4KsWlkbZCrdeLj5pjNbqk0AoQHBVMMZ9tgKLKCw7JQ0PxMEAEAhMpEeIz/aJ/ AqfPb3Fsje5gxSsPCtV+IBdjYhvzFxebaxrgQky3030OrjsZ3vyk879NI7Vc5bSh6szz7uDqZa5Y/ OZT9FaQrvft82r0QtPoiopUQ3VCQSL72TvNCBNbqTqskJqi5bls1jdkBB1eRTdGdZrPAKKV2RbxdCcoc Q2g7ETFu8uqXACztAlYH68eCUUCSCvP +fIhjegL4IJDAxT2Z7ADGr/ M3pZvFfnUoBrNLaDlOdxZVI2Oeh8M6mk3cp4SjTyey25ugi478IzQLovgi1djqj+lvl06t+ euEj7yM5TTtpAwOpksmmYtHeieSWhK3xEgDwGLnkp91JQBIC0SZ7WYunU6JD15Oh2POor6nQREplVWNF HyOoTCoO9qWoItGmrBcNUXzmLdU +bz8fKenwvjuYy1UCgPNRKsfsZ8JU2ZNaHlhiOTHlMbbk7pjJO/ ukGcaFE0l493mHjjxpT7fjvsEhkZXPgqwxuQIVnI6uzX+UgGussEu/uGyMmJFWiX4x/ QZ30RyKOGTmf8edsXyS3Q6WeuLF8FP+GheBnZAsgrZp6pd1RtNRrP8dBdTNzBa+BnDG44iQCa5Dtu+UA +xTDcdYktb8mT0C1t8xto+a3g4RnccFN0f+ hoa38A8Vg3ssrDTPB6aZP3aIMXNgNQXDGmx4mZgDGECWtgUNYFNLOjIxWIfdYYZKX10Rfsu0cptAGpZ3 xgAP2XyBd1QZOMCPHuu2hIijKeShGOlqbx7FeYe /F3tw1PvpRopMSfdS7C8+ 4ez20XFoVg5CjLAi6mp1tl2nwu6fftq30RodWhl29Qiq66wFpE6sQ5ECZzb3MCeSjPSb38FaaodNJqZh NFemDToCPuhR2 +MCFYCZ5e1eSfK/k8NITZprT3/3MLFb1T7s0V4qJ75RwJa8RtNR95/ scjM7BYnhdHGAsyVanztchPAke9GAKRLezDxNJdnNfueLmMIrjpD1pMwQ6ZEPGowmHIwpAGYpTexnjT3 7zFVgsScJV1SG5 ++pzWDVn6ZTy0R3e3G143U2er+4nkut6XzPzn5J0yKxOjQxW6KiyTlmPa6tRtHzD6HkTsgtgvTh+ dR2LXYD7fmSs1zaKq8hedM5DXLcbzIofoh2XNvaJYaAIN7kEgUWWUA1ouxMXIykRAFnI38dPrWob2KR+ 7OWG0sofPsG19eMuidddD0hvlw5/ a6MRxvursWX6woCNReBFFc57AjceNOZdQJXN2OkzgrxosMHXDB4cvJGgeZ6RXTlbBZITXAB2CVIOyutb aKexUV0pvpU0EjOPh44WIYxl3aZzOvgIbzL5 +XWM0+bu12J9T1kdmS/wCSsYVE+iXS+ g8f97e66AyN9Qqzyxig5SJZIJo3SClsGGTVwNLZLMSuHsSM9nVCfZutkON8bsooJdJZKC83DakKGyP+ Y2G922kYbsy2slE+c7If2qOHK0vC4n19lkIZzccYyYna644rpucfz9V8y66Si7JLWPO2rd6ou+ kbpwa0mR1hBb0Xa0bhV8/3lIA+ sX6o1CF5D4wHTtlBZizSzPBeDWzRzGx6ChlKdjeRG9VMIAPHblZWK1gleopbtyXDVFlQqRtm94LLUVgC RetwcOM1SrSGADvkOF9P3zl /AMG2+ xxtRYstljb4bdjqm0mCtxbYD4FVE5TShBb10W49w2fivbiJyn6fDsx01OgWfOijuNp7SbgfFsqICyFm5 85zKu4ZKCYprO8cviJLGTTNPq6RYAH4URIums77ICB2cHdFCOLm +HWz+Mezzl7I2/ 4LExspZd4pMFEdMsm0xoUYlUN17WFEQqPedrhlilB6ZQOhXrdsrjeDUIdEmd0A4KIoqQ5XZWJlyDMXXJ ykaAcN1GDEOimynDqaTe5Gc +BcyogX7fw3BjtmNpIVbc0f4g2rBZie+OpHLprbzaX4/Lfz+ Mlg4KtDCYnHIRXdPY93QlUprHaVw95XhURV8PHRH9RxtNo106PiWg9Y1BmTsoRzrg7gi3OT5P3MdkmbR W1kmbimRJfXYVNWTPVUNtiLqDjQhdo6rbhdS867PRSs4GUyE +S+7t1M+XW2+ttPy16/P8hj/ DpEYEosTJIV9RRpXi0ScjFEuDKxDS9NDbfwbWHhDJpUBy3ZH3lPLVCDjTTSOAI2UwMQdJnFvSPWgiTMC wiOnr9zMxsRIzVItALyGAbXMGSt0saAjD4254iWnqfs1Oy7Fdxs +T/KjS9I2T5X1IB8T8MYXt1z583MScTdZW/Wr7ziALCuaT5RnTmmAE02iKAqVj8vvM4lU+ H6161HVnOVqpkdeT3IJ4GzQ7QCAPv5dvDiLlqgsl0Oa7e8qq8qqkxf9WKk+txfh/X3dOl/ cSVsMgQG8dk1jaP2h22XWPRbZh1IeGWz8M5Lcbt1CEdgaSeWvjSv0vUFLIyqtqlQb/ QO8MsnOW4fJ6MyqJCZyKTcsATy1UD6HTPVnuc9Kzyn83XbA83hsLwm9818pomGU7Mwdhqq21fzd9/ YEfyYEPgyQtAxDqxqEcUNPd8ZKlwUnMppUcHZIbEPqFhoq9OGyYLm+ErYAN1hbASbXfnH6GMYT+Y+ 7NGrNbEMU5xyQTTtwyNXT3mIENau5kPKR2Nm9Q35BN6P4l3q414cJN8hh/r+ s51gHjWBRN7xfnmXLJE9PSAVkaqlutoQTwt0ntVZNHNzVix2iLUrttkwjO8yp453w4OKU3R6mFBx8t1E E7lVcFMTLqwYCfb0uT4ZJOV0IaOmHup1AYBpGgqh2AO6dxNObd91mJbzn005An3 /lhLaRkz2SVi/LZK/pdta+e6jrOtEzCU9hvKgGvfsn76NOE+ XVbmcA9CUPqjvMEfuRpJKJbWmGqr1ceFOUjmiQFeiTrxPHXNNcFQ9DQYuxnsKD3nXxKtDWyqa1McgKOE SvoSIizd9qEbTHKzYeOHSz6x66a1O /wB3kV/w3r/Xszl8jAFYDAF666TZIDHHZtbDiINrojgRVcitvbpEICRtqXxwjEl1zLWyuGiYjZsxcZ+ YZGJpX8KQkBJJFeL603pp6YXGLSuQn7dC15tT78Jg75oOp6G8ZYhEWbPfy/OLr22e24/gF9+lz0ctdp/ zgAyfiAJOmfuZsq6crHxrHl2IUeKZtk01oekpFZgCQ7BMUdClAek5CFC+ 7hE12QxyIqJLEQCYDcA5CzuWugAZSbNzUVCQWFktIBykYDaK293TrPP3YsAsp0OoVkQBesPM2P4xaY+ 93kaoCSfzHsG9tZ+OhAy8KQXvV1O5Fi1WvNham173Jg1E1jZonrZfjPuguKIhBSG6fHHDw2Y/ ACknlgOQeSCc/KPvgJqfvyrxIMcCgkYJEreuZbECWqaWMBZ1AQbg9IMMm81ainu89r/3uY8NXJdLr+t/ 3dThpZkkkMSkfVQ6EEBVKCqrmdNiwzOISD0gDLixVhgdfLFSUBEPSKaP9EKfI9pXPog08c70cSuJooXS OMBm0BRxaaKq1kLoSx2cIjKGZCZtISLY3qPE09vv84xxghNxLgspogree2x +F33MRCcswY7Wd0cfa/yM+ Dye2dR7sgPBloQzuUkyIDrpd3aO4duzW9YC5BdOrAvlJc6k2F8jjk1qLbDcvtNbsn2AE4rmWa6vi3wis mKO6NRc4iKHdVmaHReIgeGsSRKgZxc1mUiOFfBFb8j5qt1Hs3fS4JSyvyau3e5970Sot7f04pvpyVI6D s26E8POf7aLQ0RHm +ZG881GtnDIa+ILeOsIQ8AoVWG53K9zx5gcfq9qIQaCVCIAAl8eD16p/ xKL7y7WWI68MLygYqSsxcTwbjG7bK6IwJQNkx8d+LROi5a1aEwJ4VlSpqN6mpBY0hgPmDY51b+ Oxtk36Q4ry3uk3tZ5sHRGk316gyo8R79XPK6PLURKbfJcvziHO6u2HgsWEMttxUNhvbTytFfFMK67U6D WfDhWEss6oNyWRnCkPFPrIIY +m5DflomptVtLwyxnwCxtZEqmkjqeGk81T5obgyWSs09DJt2DCUP266vuv786r9gg2rE8hnTAPQzz37p /AurHmqAqlhubi2ftCR9NUbcKyzyB5jkaDqRPEUC9717+Ov7VL+S6twJctQs/ JQFWfFocpOSNnouGFzhAWVxIfSOer6aFcFTC61BAw+mzkHp3NnOK399Pm8K7O+ dMDMS7FSr2aY5rMHfJr/1ZDu9izpjImsk5RfGOjTcxVuP9+ MZuOYgL3BtGyxDz87dT9kcgke9ovQnKdz57BpH2WBwJ7MFqYFFOygj+3a6tfU/rx/Y+svJ8A+ E1JRyQc8ARQLafkCV61l+DSN0bcAQYGLYJI++SvYMqWDFMBk7ny33+bwXKBEvOfpOn6k/ TWxAO3A3XYWqQ0+cGO4Ol6CM9wcOkBlEGMjnm4CCqCCe+6EESbWJHZz31n3PXhKbsPG4/DOt+Hn8ru/ fHt2x42Wmxq3f2Hlipa3BWzu+ll3HMmYnltBpBMRetIB3H+ 2XtrHj3Lf1L5IgDReb7o6xwysryZG2O38xHRtSVVoFcj+FOF5uZBr6Sxug0TFs7+P8YQZHi+ W67aDoCsPwqp9tpg0F2oq9+E9Cuf1927bzkg0lS8yWRaBHLNQkJ5P4TXH/ K9uw91FVIiXPczcYliC0kRCDNentai9pmH4FnK7YHfvw01SHCZskFTNPAiIZzHug0iQmzP9jXGnB/15+ f6ENBKd4iu391se/JjhlnQa2W15/Yqz0TI5SOBBFbk0HCh8z3b6enSG6IGAXRag69+ iduU7P4tpnXWTSj5/Ufyx/UbqFAXBF2K8R0qmmjbM2y54078fwqc6N+ Sg94dh9XfPfGqYblGuecij3NpWTbHsgbRQqWyL1MHNuKFfAapG66WcLXGOVnop3YUhyS2VX61H31RPmA kCOPKTaq9O771BHVJBmhUBNT5qICKTVIc88D /NJXSalpvmNAjn43d0W2uc7KoeG23y5ID9cMo4yzbhYXvg/ YDtfiLopW2Z1fHg0LhOVRhCNiG8dsylBGcxDk5M6S5OeJFDnyKDkJqkv2XYvXpj1b8TDOnnlIOlGPTKb Qobfmv2L0sDEA0uGr +aW4n49h/wAF/mRKUm16/cMtpuwtvqzNhpnFoPL8ZbqXZ+lS90q4tRhsxhqPZA5da/rZ9+ sxvdEgZvzXDkPpLLJZRzHNoI51EcUj43Ksq+mG1f7X24yj28h0jm0h3/Ds+7t3nggj1fby22/L/ pMkr79so6jm/kO6zTFSKyNTPCn9RJX6nzhTfb9Mww750vU3p/ pFsSRksyCFTLR5ICYwLVvkbynfGWDJCPZt316+5IrorNEI9El6KpAx/hYS2zjaWvso+Hk4TAN7o74a+N /u0/g6d88yGgZU3ECfo1BU4zdJPSf6uUXvB5emOXsQ0Qm+ e40uRbz9er93gi9w527lWFyjBRFI3omWwkpwdMXCmd4caMS5Lss28A5YJ50fwPduu9DNmT8GGIoSVyIf /R/l+b59Oe7yG03xim+6h2HnMOCNAXVtVVHfYIlfje413GwT/ TTCBCBYYP0DDqVUGVC9x280JRr4CoowRnjnqZZ2KfxPKA5AYjNTIsyelvk5pL9JsbuBB0KRt9e5bXm72 LAuZThC7xK5R8B83epAbl5x0aTSdt2h4ovgeNpzaX88XjymjU1byDKMFv9NwtzquswTqB9X0jd5DnpEr fXLOcZDPpVBs0HenBw4BSk2VDfgPGF2EgjILypiiUblzIJmcbJaqXDaYuyWoY +t8C7tTQu24zKMObWcqxZXuPcEskrAAbkDvVm0aLNJmQqkb1kjP4HT9+Ok5b3oc7IHT7G/eulbyez0+ q1qyVg4ttJPZtgn4XXYAalsgzVNZWerlKzuvojcmsfoyLfyzXqJOYmDt2UlnKaFOpbqfWVyo6d0rUUg0 OEUN4YHRDSwR9RweQzJ0R97369AIxVbWFaSXQXRKErnCulqP0qsSfnXKAX5s6RZdF93q9z9asb2d +khNvsZUObuwSgqgg9MQKgg/brYzTJQJuHpSCgSt23cAA/ oyIMB4FPlnL5yNAUG2RFAcPRGBisuoriE1sTTqxPfN/ uv111W5wKlaFSbq9DfBubgvbmDHx777vkRqxuo8nYaPkhBwjNL9zkKulByW+ NX9jBaIby37p223a1gcR2UuUGfvl4lQNu8D73tiv63a69lQr+ M1hzOTqDKahY28KBg9A6o7TVGC3Nc4AMiiWoTiFje1wZLbZhehdHWk66zdRLxcSiksDJj16jbM9mnQGY OZITWYshoYP4NYQYpELHgVWm8V5kJwAEDZmxSlWyD3DXWO2AQttmPz0Sfn0TfGggAk27m +d6or2yjGNX24/8NcgOyDWwS28j473s39T1GfsUnLkWquJrQIa7TOaWLMSBlIckH6+ q7cudCF6KkGAYTWxtsW+ 9PUBul5wgIJLnZoGiw96oUH5uNK0JTYbA2CaQEanbveoC1bMIFCCuTicXiaDzvFLvpgVLnFWABlTRF1j ZG8se /PGCAPlC/NDYcDtdiw6f8iss1t+3bp+ K5EXv3kzp9521Jij52KFSSO4vAtXRhbttQeHNvP40yAEOftYjUSlQK4qNNeX4jvhXxPQqRErPdNHGm1T QhIVu9hJ4hz41YyYjqmspyv1jgfeSib85psrWrIHBfp2ZsZ6Y5rwW /RkDx9HIjIly3eltSLoFDPaIbEinnzDcASwW5iB+DVSH3COBhjtsZy4G8/oWT82aqpBJyyg4+ 6jYtn4aXDx0KPbtZ6ww1geHOSI7JIhjehoMYQ4DB47LRCmrikFXVmCKwy4vmQ19BcOS6/ gBzdeNw0CFiiI3LWeL6FOf4zj/M4XcU18sZVL0bMorVvCPJOO0DY9ImygSrZ89oRYqecA8zvRO95+ cuUpICo6D0u1pUqbX0c1yNuhItGdxXjcl5EEOgprcc38TwbOggFibURJnq0wMVJTYbsE+ kBhzhCNzgoTMVPwoja8m4sMz4ccrgSHJLQFhm5ZphzllAdaOMp6JPLRruueBGZYSztSXBT3mRQunR1LQ QIXv9P2y873c7dtqK5uNnNbLt5f4o8xgaxkEWWhvlctav /q997/U814kjve93t5Pjm8lutk/ dIM2deyfr2JeDxAagZxdEkjy1RbNIcbCCEFMeChY3RauacVvg5XjEaARagiWaeOZyGr3inTrRgJDwyxD BxjlRwNv /AIS/CTEStMdYfKPbXM3ND5SMj/ qZJKdVIa3ntlGlQt0ZazpitVZ3WVqVLcqMTRF7XSSunSCTS2jsOMpfC2zrlua/O/3/ XK8ugyo8B71PVcdeo/IkwyrJl0tm3+W+7QG3D1ubclT1v91YdMuAT7PrIKMF/ c1Ivhb8etdTMrE0lDhvw8xuit8GbvzOPn8+5bu7koPXtCoHYfRsBSRFVWIk1htv+ 7BEermG0DBVhdFfOFk4z3o3q5LDxjJ2kfDMwbrn7YJOXJhNLiIxMKWH7lWBy6HlR1mwrszh49tjvSutu zcadCfsP5P3wAmh7c1 /PsF1cT99m+ lTwAnc9OCjk4Z9EvJdDrqf9l7YWkkeeOE8ouW2ZKDGEjbkiYqilNXDGZfZUzPQVBxV4rr9lxZ62zLxEy p2s1nwiUrO + 7BdUDG3q6DP4SzF56VsmmHJaFwqnakaJEP5PUb4cVt6xxjU12qjoI8oczgdH2WzYux43oVYETPdzIxIk Gd51M7scYQQIh5xa0uKa8 +a6rWa2XaxNRvG5ZbMbjKx9wKwMpa7jU6zlsL1o+cby4v81lVSUjkAnpnT1wyMw5M9GHBLOMr9YA/ IrNkDHKuTjGQK+uqUo32m+fGdvGUPuPcgwcYAsOZ7LaOxCHhpuIXZ23+ Rl94CZrMpnM9xMhBr16JIfva2lc9I2LEiKszK7aPe7afzMcapNiy06Yt0/VT4U+ CsOImF65i6Ca9o3ASCTeTJCMFHpoFhUgKiJ5FIvTBOz0oIXx0EIyJXtrtrRnpW240lwgj8HV/ Ns7p4FkdR4PdwRf1bQ36dnoeAnDeB4bHDuody81k7kRcKeVfWuvCaQ5g5gcCxmEmKBKlMzSdeildWR3G V7K7u7 + T9A7H8MeLLTQDorPQEQH5TBkKvMOYCFf7ZcAUokvBGcYXFC8pAnzVD5aTPGHsbUMFf4vbpjq4IBGGOL6 6C37sVUJPgjj27BuUxFL0ZZnZ1492DHwaAqM3u5p0nf57TbWwFDcYk2807hfwd41sGIFoYvYHLVBwTA4 aMPugsiHd83oUmHlgMMxZ1Ifil +hW8d2r+MxtTn1aFGwVpDK59la0IQsy00di/ 0XQjO5D7v66lIy2xzgMoNFuWbG0cYvfhLVCYDBeNCpeSpl5l0jtRVoSyHzpIVHpiUpJwiGY5qLRWUIne sHWhF +/KKV+rS8++/gOKkaX73jj64oot9/ N3nNifufdffizwKWtAyi61T8xeCP1ESwu49ogEhNfwBb64Aqix8BvSZFFC69mOZB7/MFJ5J4/ PQwJPgjY3ptbDUDdAmjvv6znTk7jxJRPcRkL2n4q/ A4lwqNnjL8ifbTOhAJYnfoWZ8SksglImVtgBDJIUaNeupSQUDbUZPtpXFvo2c6rcNTe3pooUq1YgKqjR Eifov5SQlme22iiJ324hg7tl2ytQDjKhatIVKIgcMjIRaJuq9BbqqjwfG3CWC6EpIBlRoERjmYHqFZ3s jFTZVfQBjKiGkrbYxvp9ufJHCvHHH0J3Jraq2dJowfgfurYfq4SC2cP3bnBkJKGdfiOhGhrZbcRst2Pw b6mkdtk2zw1nfuCdKw/JG7GQ0eOY8YKbu0aUTu1tpG6cPoImPP6DKIt3Azj6jOe/ A01wSicNyPdgad49xK7ym2a6rh928Y10d6KdhAdAas4orPOwfZTI55ZZYKC0odBKGPdZKPKtUo0qbJTx LxfcfRqqg2RR3URn5kVug0ybUtKOaS6knwmHVx7uXgCTQnehjd1amRKLFqrQqCEpLZx6IdYejBDKtOQf ObP /AAjPmEytdAM+6o2IawPmAldtCQ16AOKsGidtHZ2fayKr+L5mC64o3yh4UZl5B0dj16xNb+ dfisC8G6ewQbX/BV0rE44XVKUP9yAl8cSA4uvtoOBu8o2HApRIBdEIXcW5CXdLmpPJ6n+ ZhtIPYnwtYqCGuJJphtJGQCqMBg+IP0I6kv+ fiXVJGqsV8gm8svxTRshOq80FEQvQekudRYapyFBLR6Qhx5bhzMwgt+m0UDr994z3dn1+ 8hUSpGnhqvfQWMUSsEWynAyQ9H4MHfXxqxzrkwzV9DXLnqCZivowg7RxsCOzAXsy3BD2UbemhkUXwEUB Rvnf3WNynT5N3d986Bqoj2jnRVUrQCNLcKSkOTuQG1wehVOZHGhPqeY +DrYXJxPVGYDAIQu3syFhwqSdwI5iqLIouudRVcSbRqvyg61+2iv52+boHEa8Hed0v51Yn0/ tlKKlhVCAMcIBCwEOMWFEQDCQFNREUHQ8QavlfeIpyGJAlR9Cy0q9vZswfzEffqATF5YhaWgDYVD4b11 H6ROzssbyPksaUR3JR / 4MR3gr5wEBydMeLLRameBbo8sxHcrwztWafJPu4LqK3MJ077EYA6Fv2iV0JyiWO01XEIS0TfxKgkClbu 5o4HNr4SsXfR6vRvdU9 +q/4D+88qUhnQhG42Qp3I1IXgnt8mjbfSH7zqekgHf4907qiyk4md1Gncm8kht1UFVzbgqzoHna2lTg+ CSmGJGigUqgQqk9oXy6FZnN63BfXFx9kpMhLWRIqxORoobH/ NJmIIscI1YoeBvNvOqhObd7P5Q40QHFxJBzgOBCENpNwa156sf0I2089z5nwCSMik8Z6N4qH8ids3Iad Zu5vetWSdf /ZixfVGQM20R+8qHqTYLkeD79M/6GT47KI1TqU9uNitcPeij2UIt25DuvkoZtyYULc8/ mycXSqk7V5aIBvV3PtPzSVtRsqYZvbJS3ROrsHhnj8FawVNWjYeuSltmccJIyoj2BGSJVBEMQVGn/K+ 81N779bIaVkosaoE104vcxtt7T3vdswjiEz0ZvNo1G9a1kGWVJE9ON7GQT9LO7WLB7kJflV8SAJIJosM KtgEADnGAeO + QdgE8PvZ8ypHL2stHATsdWjhPr6XOwOHTKR9AUsmXTfHw7r2icXYEuAk1CYiUAuQApTbjQlCCvrkmc5l fT3cas32ZfeFnKjZq85 / w5C9X7Znf8VRwireH327rlp7ZZjihyEXJeiFzY8aIbpOSO7H73sxjEy1MIyYM1wdXZJkDwRQlg0EHTRY Onex2u9k3g6YwdotWLDpZkLWDL1vlQbqPRgFWK6wApfFHzxXTFZAXm7aaJJjS7j0HI5I4ZufOYb1JjpD Imgtro Md1aEDrNgEtAOyBlV5DHV5n0P9CewDWGOs616x127NmRoDVcKJiEr+VNJvs+v48fef4xco5elw3vdy8j /zRflS8ExcRkcI09LIMUGkrehDVoQzpADmXk7q7ratWdtKBaJArp5GiHFS7eaSHaIFupc0pszr8K+ Un6s6k4dcJa/V0jiu0vpGWEV9zoJOEQjgQEMJMMR1irif6nj0TlRiUSQ4znuGs3JXDuQP9Xm4Urzo/ RoIHXpR876+Pirs6Zer6vFoBeW8KSKZlcC5M7eaTlIxPANAWRz2e6kwc5Z01g3T7v/nqyln8Ag7o+ oAC5fTkz2RfUzTF7klhEHYvY42tzeXM8GKESfBZ6jSDsKNqsJdRWrLUjlfKsGZ2UpgmX81nhIZ/ cRRUSSOjRLY2z8Dx117XjrTQ3SLBZbLaeyT4SZXflubJ9l4hV33yyEdOf1z5t/ S2dCYSFi16hrGVokyxl1d2e913L46RvHhAP1JjmfV9ZOvs79FSEwpl9Gux4/eyOAFIPLAgcg5/ kC7bIJ8NavyfDNh9ncetipHpoqfhSR7SMNc6WdILMlPegmLoo9igudNOMzSqlC4jnhmRwkhun56tLU5q 9cxmex930frsPqcOnskPYFeo5LLT5L4cxFXK /7lzlWYEVHpqmAQfrx7xaS20nVFAVP2RfiROOvM73jHWV+ gNgzxJnrXXlMbnIfsYH16ekgm4bCBh3mkXpqRBwBEtPdjKgtj78y3ekvTtDm8Z18fowi8rP5yxjlFwzz GXfeZ3GSgLPcyt8RUTNB1sinj7UztAa0iAPTZJX8ZFi1fHzTU6QIgjVhRXYJadfN0NPbpvXsp /rGSZLWdkkrTkGaDRc4BAK0rcNmA3SMAzPCyzpFV8W+ YO8bj3KaB6Tyk9l45z96cmld6ZxodwbZVVWvJzHqu+ jCrO90936XMopgz6OgwAqPSeNp2BcP1skonAQuEzdS5laCU00t03mgJATCZHDsYy5R4VaZSadLYqYCFU AEEqMRdBpdTVoxyriz3HnAb6GYx +zW3X+sLaBp740dhzJ+ 4muy43obrbqufZUfsuudJYRisEaEMQ4651QjvzNq4WCvOwWDZ0fMChR9DgYkjC7VukgNY25vC1iM87HQ 95KKUIhVkP1g3WXhdsRsvX +Nc32ZLhPKIpQMlzvAzfatjt+7V/O3Xr/UEzOM14d6gCbi7/K+ kwj85sfCywpZZvOEQiIqF2maaMQueWUzfNX4GSLpRZEdm/ hbFnyRySVwzCbUpwBEfVCeCIDEmea7GNJAbj4Rh6QRClOWcgdzpBpX0Zwk25/ XBO2NPqHavRl45sb48q7m/ YBzmjv58KiDbBnjoKBwv9Xv5DRBpFF2CFCaQVRjCcTbBDB0Tpqb4YFAZt86/ 5uF1froTuVjRcZtfZEPKhN+hJ4wB/DBLGseLSWE5sd16HmQz39BXLRGjEmpygiBv/KFju9faq2/J/ CfXg90x3LZt/QiX92pxuqx1zEhiv+WqLyOOIQ9P4eFnfkruvhKxq7b2alzhNltoK3JI8ZQik+ BMM2X8UKwEdURydJX1jnTlj0miSNnmvGPP9WUQGStaCf2q+m67rgQ4u2Ih6J2Lp9ag2lk5+ My7vLvPJCLi7fDYwxtqlPE1K+5oJBEskPJCgfStSqYU7DnO4MzzV9NvrxSu+lwq64tv/ LLSRCwAAzflWSQaBsFDKqTXJpWCRGZQpErbazsO7wWBE7ahsNbR71gfXu8fQ+ms3gNWLun/ U59w3Y9IveV1aj4GYVZwwboCTwotvQW3BW/ zMXPMOVUPimln6sDcnfKW1uGQJFOFUWQp6O2MtJnzFEs8uWWFO9Cyu9uXcOUkBTDWApwCDym3Rwphw/ lomHloh1msyegoHRV4vjzX44Kfr/ MVXeip3ETc8FQHkD7g95vrguhvHZf6QzBsstGIMUjvSR1MkZov7G7NpkRMfvbCEYA2ywcQHMWrxeRbFM U609AtDrxdB50kvBcV2fnIWnZBNFKO8Mx9mZqs6beRBnLHFoWgldKCgmqmMjGX7O3McDAY4RaX8j8cXC S6103 /Sy/EE+ eYvb16466Hn9tvwHuSFvIk25pHCqnjSnb7K4HMidf5h855QxyXCMCe7uwFDsMU3KpGlVRVaksJrldRGA Cik7DA5KA112YDFgu1E2k8pkEvp5ukKXJpYuYlf3JXAIchJLWNNm1Akcpjnn +rzdx3rgwrlzfk88XSxp4rmuIPl+Ft7NJpzgQkIWciJJoqevlU9MrcqU1s/ VTCiHeBS5IdXUFydYpAnwOA1fwUm52DB2D/LnB5A+qOxXfT6E4ZcRJkNwAnSOdhCDB+LBJ6/ aVFHNaTLMSSbsv6v1wkj49wzjph/e73C// MK01a8zht8yFgpfBS1kimWAikyreeN92olyHRLPTJMexXXTv411H5WPm1hO9eQuy71xn+ 6efWzxJmqrli9lp2E8154zJg3RwPQg+BHUHn1oifOBx9pGe/aoKIopQXvNtQ8W3c2yr994t+ uiINLuk1oWpy3sghFioeG3ZbjHpm12pElI4w3mAnalnKnD23oA2iWmGQpvSSY9N1WAWOIp3QaCrQKWhD tZ88tEIX4TsXkYpkHuafAQnRyGlwWTlxcIVQAqt2bBBmR +a6Xs/wAl+DrY050I+dkpa7VC7vKtUiwQq6aVvVNVILFDm+Zxv0IPUeyYJTdC9W/ roIjqvu3aq1WgxzPx8oAw80VfieWS70ZBF3ZbVrjmUKDnSSzWdZymGQNWW1jdDa9bcnU7+7B+Vu+ k8pwQYPWxrCKDXpnea5C+Z3ur+rdr2X3/ UZGbx3307dvuG69x61ZgxNgtzIS6SEmz5JdtPQIcWKNYgx58t2SWAoRVNgbuC7hvqbFTRyUBcfVA0pOQ 86yuNfE58m8JJKYbzsAb43U /HCyeMvJGR2BQb2l1A5wX24Jmi5c4nkPL2kidGmpzbket8z+l9M8oZNXumu+uchR19w43uMSQNxMJ/ imRfh9PVs2iwWGyXvgCSOFWo9Ul6SkUe+W+ pxGttbOIw6yJIu5JRVmjSiZUVaYm1QAkDR2PUedYNhj290k/ PWV4sHs40NGYJMDN27K85w4vrCiEQWP2bhKshrKphqrdbdHizgwYZoI4ffZa2ulombPKC2faR5V/ C8yOHgsn6v856+wf942C3+0h1myrrtn1bFMu1aAMCMTduJMBmUnFz+ 9NsjACFhrZaNDmbJAUHgLBKFUJSgtBTlDpVXrVJWiMnaaNOJZ504zpziCxVJKlmqJsOgKPGjj300kzSG 1gx6TAj7r5Z413gj2005dhfawg0 /c/u+dy/xs1fNtR3WZPOotthZMDuLHk/VYBtxGCdzM7b/i9i6/aX+ SDdpOBsW5qWZX47iVeIyokVZSRHH6qFmi7AhTPpneekdte537ZelKXdAvTHYSefDAzExEwjZWMQnUp72 GaMM0Ah1lY1xNn4oOiVYZN3TO +o3xeTyPhdKkxqqFXUACXli7uyaQD2IV1z49H5A7G3WdFhGrEwdyVW23ij+2z0veMx7u0I/a7+ aJgAT8R2Mp5FNuxB3RiRgRiFAaPCBIYCLRnS6MPOc1NpEA0zTTIfPUA232rZZ30630xkK5K6/ SB3ZcqShevJNFUVVROkZeFLQuGxqWvEEdRYK1X/PhSxJII+ fFMpL71E8IOSoPddV8OcxlNOAc148viY05KzZYqc0brye/w+WuK62m4f5i1Ckd1uc2+/e6Mtm/ jgFlrQ96PMcvQI6GCeEE92VVS4C8cwgfyeds5c1lqcdE2AF7R6kJ4OhGCVwRF3QisHogdLeKY0O45Epi oiCDB6tNALQVgJMwPeI9ZweD4XpJR10R +rz7RBt72TWs/hb+n6eV+ bkxM0FTPT75SMzWydCT9SCjjTXhRF2lujWRO2ExEQapQWUvlN5tsc50u99RIihKQCZVLuEZaOIVPlYCJ hFpr17AYQc437jIi +vM016pbpQfkG27ijyaIXzQia5okSf28/NPv/Q6Pi866q3Wv/lv/SMQtYeH1XuM6+ eblrg20LUuNZC2723h8h71NUjmGHSi1CP1uM2EgIDVCZT4ovgih1XEXt21QuJs6nrYlnU5CPvjxfUN/ w6uxk8Wlik2ACm+ztvZX+V/Z1PqJQINK4zrQw1elGjrP1WUKsJmHPlulwOAQVta7Z2i9UzUVSrI8399+ xITXe0z2TkRxsDQlWhYF3O9PKA81/EaZN9uc2p2kup+lg19j5EkIubXbfSspru1e/ J9yPOYZdxS0FvYhc/ZM94mgciP7QKscl/E8Z+nkh0Hhpeh262hLjkVCxJ8UEmHOCfR0NKFqD7D/ oSHL2lar9R2q58vlQ4gxivuyoPod/ dAnx2eqGVl97RBBKVMqXfLfld2MCdpjNf6Gcgqup4O7IQRvUDU97pWM/Hn/ QRmaK968B8dwW0MMYKGZ16cawH37MTP8sjaoFeq8v8ovq4xtCyn14vl8jr7/bT07NNtYjeYgfClD8WFq +bNfZr5eFv4B/ lhgGnzCW5Szn6YKznJCp875sOqLIwVY36DUnkwCQ2qonzm0Sd8ZrFZpFpKQDgB25lbhFd7WFzHolcCQr J90469n0058QqdpaodenXj5j005L /wH0S1t/ aG02ueVKIX6gsqYYTIdWXbOt6QQGHgNd5Op8cbJhunTxQDeE2AnsfPyn7BoevspQU0juPcQfVMZCdFjL boydxLhOY4IwCNyIQjlGCAJEZLN68V6Fnmz8jaEgpvxE6lpynrI1Cz5GmSE3cw83zc51eZRv2bPXs3ND FheCUA9ffTCgeqn K0AADX8U7Q3R370K/Cb0rkhw/fosKuE7YN3l44wgGHmWa2l1Ky/ tDEpimpSkYaKLfJx4ASUl9Yj9140jI3IaxPSJfgQ545+bhorQur7lfu+j5jxerHg7c4A1l9/gx749l4+ tLRSOStiCtGAqBKoTRuwKmH7HCRXs13s+wL1jjCzMXrADK9hBNgJdmYs23u13RbeoZMr+ 1vIFYHIbacccHljg+hSNzQVkePf4j9YJSeYNEYcwEqsRkTH129M0F87a3FXAqSTL05uxFUlm5G9066FZ + r3rcWQVDklkf08eakhgnYUCYFDyQcsuYCC96jzvUJ7gVvaKM4EdEpJGA2CxQOi8znhl2OHTxw0dfC5vc K46KJUmQG1A1Yy6so3PIGnUEkYd9OIVHQe1PF7912jzi2lK0gJzQV3V9I4CXlPbK5HV1vzAKiNsNomsi Xr69PT +uqzmpO9XpnQ7Ahc/ em773mxqvki9g234hup4yEcttFahSjEvQ89QCETtpnul7RVPUlinkc6xj4rk8UvIlhKeDHrWEFRr6NLw ZAYKZYbR72nV0AVLJ3YcuLZFRzVCHPaXvdDoWCZLGZ3zqfW9B4x4qZkccC5ivXNPShDpKhsHUrHRKuic TUdtRcnNBKy7d05cFg39D053Nq0zRLYw8gjy90a8Qe8XnxxO2tkaCXK8nhlLidKTNaUDCaJkkmnY FjTTeEH4h8stHiFIAdwoboTSTMW4F9iGkXHgZpYdQRY3/eDRYoAWMoWINvZ3pGEnWA09JGFAMYM95PW+ CJodiaS22Fvgl0q0OBFGNMULqwk6Wxu4ddhkddVi386d4h/c2MnAvJu156Fvd556k/ wnnlbvY1cdBtQhHFGPF324MhBBSJng0NaYw2IXguRh5e/ geQNYuhZR6JgelWiJlbUoemBi8G3gM7FyH5gewzs5wlJ0oGUmOLMuVKX3zhexSb0iskPMVld5+ vWT0lZRzvXPwOpGSblftvfxX+gSjHs5xuhXATY7LwdJjmNax2fto/60i187Pm9IdbPKsHR/ ykli8czXTwygXJ9T5ev95pf844WHnYdxP7w5wvKrdReWZHnhWmPuUPZs2/ PZ3f8HTcplhq8psKg0EJnsnn63fMRIoCFg0RA72hf8y3s9qvxDFCoiyUyLmLR2NyEmt+ 0uoNvPNq41x8I+Xnqm863XSX+YAPEW7zPlaZwcpTFbRGnt0jD+ BHBYpHsZyZk00V9d9kcVUWnrRijYa62v9l/l80dm/gXTrdUh+ 9cG4fjf6FhUNkiJq1ylWjveboh936D6Kvf7URzrA7POUQKRmOhMWepDJACOdraZr3vJCdP1osdskLwTc QRncyliG +ZiUOkFGQY1WXePgNHqAM5lMzi0wZWY83EKP3k+SsoQXdtJL3U7sYtFw5qEnyr+ khTf9440RBOWJxTesY6ieulTBCNvu9IiCuxJXOlIIqGmymtBsPeLEH1ywqn4hYWJPIbw0pNoMvnIfjuH Vwwpp94QyuqA1rNRrbbLSSqwG4 +oxx9ivkS4BHQvkuOl7MeAvYxreHHTotVsLVEMKYIK17qwzGMguB4W9DsyFHkISL0jawflpwqREUDw/ cMFmoRwbn2xF+ Djj3jpFk2kwnz1lwjd2ZIJBr78rnG1VvmzKznWwKRP7iRUkEYavskNKiBo53GJYrXoMZeoT72tdrk31f hvCqHyYbdHMixopAYcklpCB +7JGAevFgTpxo05s/vEGt4uqZFws8szjRFLt7uIJQcsWNVUMBgWMOP77sbnL4+ 1b9hdBfToRi41acmP4laTNjvDzEw90z06TeNu1sR+i2XW+neyehgx8n2Lzlf6mDlqUX+h0vgRAW4/ hFl75LlCK1ciFQVciJytfbhIeyJshFjOZcpvIdoJErRQmtnQceSfp6EmUcgmVq1kGTPzdGBIk1I3hnV8 u9skksDMmBThMmikZ6AuiRufhBurMMGiaUOC +SvnvoFhDs9HxqDPnRb9Bag18k+HrC0vr+ IPKX3bRr0wSW5ksiOUW1Z0e9DHLzfBHZpegadHa3b5N9v80T65to6WIP4zkFfILTeokIsAg07Sxj/ z4B3uuBct6e2a6c4aSzsXL7oXK7GCer1QtvTxDP+ SpAPyg3mbEaudlL6mdggVk1ztPJa2wDkFBEZoZ7Q5VnoOzBZPIHhFyMwlxY/zt292AwYxpDRwNYZ5c+ nTl5dhcxaAXNvdiaNAKL4DSyF+BJqXfviIPG8LISpw0v37DlUXzHHt+M4ofmFdHMSa63avtuXiGGYF+ OvIB9uBvySleUg4oSLI7g9je/V3Y6S1i0mqzIDQdIPU5meyiQfoIpE3alwy++jurHwhb+ Volc4LvrJw3jhGj2BqO4p5QnnWTl3LKfaGJDFN9/vkG2yvP8s+ eAlT1MHVH8KE4VUYt3fkhio5IejSDwcYxCXbncylZJ3BRcnQTBhhY4ur+ T9pwSoq0ow2dVNcqYKieNqqzyHLVOt/NixgVOAWauVdii4ob+ ZzxGmuLjdl4vvPnJJIdADgkYRUZyE2MWa3YPVCDAgPHyQoFD6fraHd4Op0hCn4cove2wf4UKg96+ tMkDE6IVPqhXAMVT+IPU5oUPfE2k9eRp10oBdrv/oFn+ TxePecOIzOtC7w0qZC4pQNHcFeyEJPMN2dzKDYLDWSV8Feh+ FJBxgnT8kTZusUwtFeHHQWkj7zrDxQp4Q9Zxh+5lqTm9ycEXY642+ 8ePO9CFePZDiaTzAJBirUKhtjH1oWNJFW9y+ R7s89osKPU2ZhRgbNTWVDU9hgtLyrLgNvmNkNVWeooOnbuLvs8rgEfPaOHC8uff5Yq4odqfbjBVu15r3 DfWTj6Nh0jnu9hLbWgV2E0OwYt7xgXtxLKkv6rkSEVNnbq +YoRSss0CiTtdQgRmZVoW4VGABZ+ZBrJYtAL2NtYn+Y2N3ZAa6uCA8/ uTUdjPjY2sG7NceFhkKx0FFUmQyi0k4uL7VLG6vi8+5d5CYK7+ MAlcJwFjnFmIxYJC9Hnf5PziZQP2NtNb6ukmNwWIxKOeZpjsbA1+OpfG6s4GP87xYdhsDnr+ i6a7ad2MHGvSTQbnJJgXVzNZREcUxSgbDYVI38lWJurUs8xyylRnZ81samrTyMBcq+bnHSpKYaCgc1Ao +bnGeQ1wpnOTPR9AWqgb+JbXrQ9mFbtnw+xF5+ 0A1I4de160bciF6AaZnLbSdPoWvYV9fBs0zZvZJQFDiMpLLz7syKYg1bTY/aE2F5812zImkxog/ 0NZgbhZiRI+XcOYMZ8guAGQI1ATetx8e+UJg3t42+ Lw1XS7C5FvEfuddHA9xeYJyRo0ycBM2HmneZZwUoAjmBHt/wK+RO0geIE46o/ Z6g9g88sDmhUWZiTJd5mDmJyr2RBe3Ul8zYSFa1CUKv+wpH5cDmXuw1gdn5fwd798+ 9N6aWn8y9OotEhsIDmikXzu7EIoUmlV7USkczl9xOj9a0vZUtcWu/BN/ HYKfHfjfGsiPxgBY4DEgZHnwnDNVyMuZvyUU8xOnJ9dcQe2yqVikkHN+ GMIVnf9CVfuL5YWfCRYRpNHWQYoz9aF9v3Nl6aHmo0iRZGrq1mw4Zu+NEZYT3RWfjv5NXSd/ Ys7VrTu6PEAv09Uqh7xtH3m1qaqAym4+nsQ0OidqsNLzYWa4PBLvz5zjxaxFa/YScuWTvC+wS5lj5yu4 +10/Q/E+JMvmqrxCpqLXuzaTTbvo+2+ qwt59S70KoQJlNABQK6tuozNSXSTGpwJE0oN2usWp723k0ovlVCYSDjwI4sTrRxDmI724S4jt3FKhVzm xF072Hc7v93ihpUSiu2h73kRvXWVVG4ztoPj90EhtzTn0o +OKGOKuCJEz0cw136YZZE7Ob7SIzDyuTKBREL6DNU+t8hNR8kQ52i19H+26E9rI5dRHu2iu5b/ubv+ W023GiiBv+GtO1g+YoR0RTs7sqy7U9xj0Qx7+ jwBbFnP0lKwvGyRGzNsWZVKe1uphrQztxcASEZbwW9BS5eRyL5FXHyApV3jBq/ hJxCdF2U10an5tNaSgSMHP0RnbXHiVqKZAMhTz9xviciz+PThcL/Zl4bO4+ 2lcOfWTxBUULjJ7vThwuA1JPyyw2zwQ05ao0X3g1sEow57E2TJa3h1jv45uj03RJ87eL5N8XWweuQFbT 9sYIqzBpGOtwGZlWeVhgsRCEWJowQN79USFkJSX9PwrtztBjYLUfzAOBRLelIJpcMZoYKvak2tvE5zr3 a6147sk8FubxLqhuEHMJ7IEI0eiiBqTTdLxpmMaNDrWkmcIr +rrMCib4AwDv5URoQxqk5rl2laPhWkBLlzNNVkSLMYHx/sNp0nSl9d+mum2/ w3OxlApzeHg9gqwdNvMSEc5e99n5d40+ M8Aph84mhJ8OhkWVQhsELgOFLq0I6TLbnFHsUYXAaYjfBZJTpwuc+ 7wtAD04FxeIoMSUBRrKyi9Xvk62u3iV5yyE5ZXmELmV0dNvTB2UKvirPztmjhfR3zljj+4WsF9wtpcvo /Wc4wQ4m578lHo0cGMU5etKvAJ5Yu3HQej2G50d5Vpgfrg+ n1x88qp4xkQ92TewoD861oz86jp938b5lPOQpNKKnD345KxRVuPrIlOZ1Ic0ky91nnzUvotALZSMzoLF LpZCGhuKPXjCuicB8v5km2wy + jpJcnJJMbpMxrAWf78zykitAWBIqbCI88NixjCh21Z3v1bkiDSKSZOYi6EwlXWfMXj6kCNM7be7z6iN5 leYom9c8e416qf /AFE6Mr/L3d82oO1JQ49EHaIkX3gOaT3P7I2dTNnowY7JdLZix+ WbbjUyJHfe6pJZetEj2NxF3yPAkKWYNmWJCg8ShEw4LodVVyXcjluF6imyZO5SfWQbcLUHRN3zBPGnBT 8WnSrumTXpyLlB0XD4zSCpjKSiqZARiITA2VXXxbGMEhqhC0nD2yOzhIGIizwCLZBjNVKoDzZkGq9yl7 kP2o53D46FLpMVcenl /mh6CH9p3Bo6Yzjd+v4Lua+ 2XRt7TQreyVsj19lUuSGAZtEV4z6zEiEWX2ewXRJ1ShvbfRgPDlNcsl2Hd6QSCrbjURYSK2BMyIdkma6 cBhnzr +5sjDhXoPA3lv3MqIIZ8S5GHqlW03fSbcIJvqXh37SNsRVYawNneWz+ nAdHDDYhnzRCenUyqBe8TOaz1t07di29Vfuafsj1oLC4u7nh7rP45/4O5s+ F1f4bL5vdt9x2pWzPPLqVPDBnI7XyWCanHgfGiNC2L7L+bn+VqxynzB9Xw2zxF+ wTLf5FfCfqvKd4vw4KoSvvIpYgqFXGjlcsvX+WwlHK/ Mz0rMStVkh0aN41JYU4DBZWeE0QbFPhXVEPdnusFtTnSyAcC2ulv/l/3kisA351Prjs+ hOurgLOoYnf5t/Y/zn1GJ7tI9e23LoG1n3n9YO7dBiVHxUfxadua4SPj4yTHSYvGxqzJMnO/ lb0vzt06mrbac8wfuuoM0UrNrVxPNICU0ILgz5gJDHdvXtCZd9AovXiLB6QgiujO/ EXP6cNty7QozsBSD8BFrd4kcvXYzTJG6rVT/ OftwiomTfoFkW97z5VoypLtV0Mw782wynBx9J3Kt3sNcPT3MaBBVHEBH9MPfXEy0wvrQLnEREaaGFMD/ rBSj8ReeVyf3d9Y5A+ HGFbXdcaWdjlDVlqgs1zNn464yZ8SFxkxNrOd9q2JQW6ah8MtRltwmQeChwogeyLUfLw6iMznEFbuioG 0EWwYznGFYqu0CN +BZ+6evwEEe4AzpaQA4Y5WgdjQFRS3U6KXN9ubRuqb7ors7Ri6f9K/wBKx/TKzz5aUELHmQ0Uj8+ OvWkuCxsWDnvuBjMwLtfO5lYpMvqtRlHFokqAj8hq27OYIwCOqqumKTF6E+ 4KYPacOq0sEbXlUjQprbHSIAFPSEXXfSA5fLxIfMBvwX6R+jDk/wAWTkk/ JJbPaWgMtw319jrdPMF3oI3tVEe+ lmz0gd62tqikAtqOJvR9ILmzmakxgCVKHzTlD1S087UCZTezhu6xuUDGIYJejVC1ga6qXrxMRx5r2IYf ZbDFSBtAJ +QLlLTKiR66VtI8DaBbpZzJ2F/bwJy6td2LWqZu4303N6Wkj3S9U00Yh3Z11pRcvW41n2kvUx/ K2MENESydLnrOC0C+ Ue7gGrP6HDWrQHZZ17KSnp61iaWrkrIdkblQjEOXAAGr6vsZXU2WmpgPjCJrM4HA0NPJ8F58z2Hd5/ n5LOfcJKr2fYaue3u8CMBqkecqX1c2bG5qa98u5Fy249w/ CU4233snp2n7oxPwUXVeG6oXCZbcgGbvT7O6i1dYEjDmH0uUXXOXbdaczpVw4D51azNXaADWwGeO9O7x yRKPmvrUHtgMcIxMmTlPItTLKF5ZWNxjWZCvk6eSUkX18zm6xRydf +In5t2wg8mjxyjmZ0+ 78v30x3lKDE4hS3TH2RMQTqEwQoDbzEwrPFfExgzkD5bFPCJq5DCsqmfRSsvxbrwABtdehlvMayuKDPy SKU7rajweyZbfOsuKcwDxBYeDGhv21EY2 +KuoeF8jNZ/ByTBp37FUry2H5iXWApX0s2x6/nXlcL7XVqo5LvzCRIGKUBzDt5SBC7+ TXeza0NFEmUkRVTl3H7SRwqWLFpbejkaXtKdG9OrLWpHNEfvaNItGoZWnGMaQH8COE82BVqxF3tJ+ 2mlkYZBZwF1Ha0v8za/ns+udFvLeak9ti3U2l0kF8eKGXQeJ+L0t6FHUXyik/TuOvqSWpFK+ Kc3Z9UGNVqu6owX1pVmDQ1lGrbi4nwuAqAQYWqSSvVakfNGYYqkfsMoMpXGQrdX2uLxgyXuXb51iUgQE xtgkeG905zpXI9qAf5f5urI8xvb75cyTjejonYlxy8D1eqSpNTIGlox4oCZPsPaiyuJt6cFCuj316wfB XDPcMtJMJ8U7WXg0DmUZizTcfZcenuwQXUfnn8l8QBxCroK9mqGVEJroWBjaKjVDo6b7 +9+m1n/W5D2W/wA/nvp11a/ vHtDa9OTi6ILss3ZCFQW1g4a8SyLQTMnG2EqiT5B9PiqRMxocIHIaBVR80BOlD0Z5d6IY7P5lAXFflTT EZFrFXVPt6R101Ha9ZcDHmzPpi3x07Bmm /r8hf1/X3r+ keCMfb7IKwGXHVIhba1CBQbHvuUeFIaStXfnrnpefzdIlwU4hMKansfxcDlgnwQwjeKnQZrwhLbpWtch OLzIYW8x2XTfTLgr8AotlBIVh4VxRZOUXl7nbeZj81w4r +937TtIhP8Eidtp7U+montrell+7Qw7CblydyBncIZayEWQictKff0nZbMaekik4nNtjKqLOgx6DfqbT/ OhsM3M1AuFgDUbKLNG8EZ1QSY4mdfK3WLUSmFGyyIOpLNbOPzkerCAXMzq7nkqYfuycMK6KaLjmPqq9R 0ulZrs + 71mWu04dfpFlun4lJn5dUOhy98rHEP7wclk6jwTFbEAEX5gKffqS6OmdX4JkNulhUTAMEUJfbyeFGJrs aRfH6XtNIcydduT34q6L2wwdWdkQy85jITqLnx0g5C7OSkiRRJPe7YQ4aAa21k9PvqBtOqeqc +f2bx89U0d+SV+iXrs7q+ y6ESESy4KAnW8GNIoqUzYmVmZC84GMPFGNQNMXmZ1nDYGGMSYqxqwpQaeBkBreQX7dnZbcx4DfFo91W4 ggDHrtAJ4 +LTzFduoWaacsucCs8DM0AmbV54C98Ts5z70XmH/PRZ1sch77vqA6AokSd4u+78rN+ vLquMAG4V9V8V7jTnfHjzlLIhRNLbIAeBrISlbXxQyk1KZa4Fqcbppq6TPPWOJaaOWKNHnztnxULz65n WrOt8MkBwP87427cRDr4FETh15A6kDxPD0PPWhLzPs0RGt68iuhbK + Zs0Og6A5gbG2d4Tc8T9tucSZgAOvAUuaRsbgbXq5DPuTglOQQjBdvVM2xRBejJMpARBONWAOOrZXsMaq ac98h7OvkuP4fc7mevov7VZ +6QMgY5+2JlVFt26EgrrN0PNPY0426ciWnBAzwyp8IaiaPbn/ cMjyhx8mh3ZHGiDdyklJuRY0S5WZZ6E93n9OKwWvQ22YDtndIefRglEOUPvdA3Jw6MoTHsNrh5y85bfD 1xuWY6Oo8PJsJdPsqFRVjfcULcWvJfkHgCgCRtWniCoCXZPIKCZd4LMF +0qiPr2edmEe59nxQ+2sjo6L1oagfogN/i9WqUuJdrP9BU1Y50+ 6sYFraTPXJCgE2dEO1BXPSTvrwN57qJQXqwqluganM5ZGFviuKLI6Vvmv351xljCMFbEmUgvHwdll5DC JUtAhmnBVMQ6NiPiOdFBwcg8NQqWbwut2tSVP +c83ixwy5w5S3/RX2t/dBPngwHS2yAWHSzjSTWEeahWjVDT7XQVAGKkBUxYWnbqd20jXlQyLKIabzg/ brXulLFb37WhLzEBYcBJvKsCYQGKN1xfiIertFFDZCOrvcaDiI5GB8Su5bAnYlYEQKgl3y7YuH// Fzt5K2n9v5mrio0+t5EFyYs7L47+BWOsYHLK1wSqYL/3dLDSJCx5QSVXFIMbz6z/ N7NpwMHkYnACvTTYKIFyPFiKWLoIRAV0V0uWSpmiTHQDrdMQmVvEkYdkGUUuVca+ qGiHJ2hVUEKyutZXS3Q8xGIqsg1t6WOFBAKYXb9Ism1k2sb/wAL+ jrqXnS12p6myJI54A3eyxq4fNme8c90VniZSeTySx6Y148Yqvtx5hUIiK2yGnDo24zaprcq+ YJualzY9EDNTXYxoqqBehnI/MRWq43HbtPXkcK98FSjmFV/VOyh0PFAtR9etMJsebx255/Xv/ eMSJ8Mnos975yhe1cgCm1TXrkGcRRIL5TDbAVIduznRthWKskTdJHSpFJTrim8qgdqi+ 7n6Gywbm9aBtNsBTYAIxl6KjnZhKHi5DDQERqOGOMPKehb73iOacvaOVpOFP6RezaHpDnxsSDoDE3lZY 0Y5VshINB +ZjwvxT5JWy5wwPKXuSkFwPn1DZL7mOgPUbSFGodAjTr6B1wp6QXEbUf+ l2tP6idy5eNPIK4jjd14WbdKdd4ksgc7rKkYz75Jf7Q7/v0U1c7O9CIAhg5mYYANeRHvQDffLK+ WRxcXJa549mlyG7FhjbjSqJISl9KjNEW72ua3KYqCb/ 3L1cqhv5PGmDT8YtmUdNVsi7yZsck1OXQjVXkOgiiaA1gREyfIEMiR/ CruEI05TxjbeoNyOzjY7a42l2K+ifa+fbyx0d3s12iefxk/PR7kGWsycS6d6NQMm52V6BPEB7RqZhj+ kBxzjYOU0DFQNPScN8hD3TWzyU6auM9pKvJBVqeFKmaDJARdheJEIRTVqcZSpc+ gyWRQ1VycN799QRde9/w/Mg4Q8fs1AGkS38c1wQ04h2FF7k9wvvDy9bBOWY/ t7k3486Tht80J06Ciy0q0CEX4nJAFRwZRMHGhyvcYAg7icx92tdSJnhBZZQqyrIrdHraiUfI3GdfzVcl SH01uu1HlVOUcOWmm +viCdRJRyitOst3899L2cN+Yki1CrWsVtG+2/T7u/ ACtcKwsq70TA9f8W06ALwxJNu51CB16UEs5u4Xm42mTazo0NbD524CEbMCNN4O+ pJsX95Kx8yPIO9SRQgKAo86PQ/oJbtVGR7q3sb44+8MCughwms3qidsni+bXo6ICGDVso423aAO/ ztrZ95iOnwafde49OycA84SFcu984mw1sNkn40KzUkH2mfCgjEgUyi+LvwD6/lRa0wj1+y+/b/ WjZ7Jn71fda37ee4OCN2YjQ74CaV7bvh4Bs8eXdSZoMnpUfdGPbA0B8GxjPTRQmP1BoNkj9eps9uJ3/ UbWsctXReM5FR1cvjvkyeqDv8IiUpgdn/mv16PI7xG6HUSciQsboL/PT8/ 33knYYWhHHWIoV18Mj50Uj0aOv4zLm6T2Mb4SpSzXm0d8BfWlONb6ONcVMWMU2HWLig0NK3pTSMEtmkH +4a7P4sAJYXSi8NEFMXlt7Xr5M6ljk/b0/a1ddaP10wzygZYbj533/ cCbjeQCmbkdi3SMR9eZiy3zJXm4kA98eixkTitWGV9/dchEuRRp3q9wbV7TZa+/NaMs+ E94YdjKO8gOMHVHOnq7mm2zDMtYYxu1gaE/Ss53cxjd+jn7TNALZVqqI61twR1r9Wzoz/ 8On708XdB5mq709Io22v7+ k8xvyV9Hh9axeXUJAYpULtLPmAFoOnVcjF7Up9BJ9tZVYjBVJQYPkRVQxGgkm+ 2M3y3JCYZyKjpkiSHYkJYECHF1p8LySmNaJapsTrhqVQrdYRwp34FgPVeadjT6ln9x3Svk1p/ x45AgvEJAw0cj23sunh/ H4e9dSGQ4ShEXOX19ftsVBCNKhC1KitcgG9wT89S3oFvGm50rfKlEXHxlFWREXdAUUIWPhj0hIv8DMEE KUqUkKYauXZMuRBR5aW6Bd7p7d7uxPYyMFb9zibT70PEFXbMmWLpNqAWcgp8ku684uxxqcz7XIz2q souIFWps5Jzc3j994eCPqFRIBsCjZeQDKLt1U2mcQcYpvLt1D/KYlj+ HJQFmRQvORtOMQKDrdlS35Mtf8niEO6EbFEA3ggURYhp+sQVVoRdWbHb1twqUkuMGtAeMN7RnOfb+ YsLUFQhtgYDw6368v+d8aL5T2ihJdG20I8cXc0qce66lnlINuKAGc991V7+OfmsNpgACJ81ZYGerPc4/ ikwM0gXertNbhbaAX+uxAYpyJNYAFbRfB8wfuM5CdmxrNVmjkWeMxdOY3lvCMaWFlYdsZgfrZRxx+ hm1Ccox7pkonz8FqWSQrqsCmrhrLy247F3o/ VdB9otGVGskkv6yuzhoalkd44YAer1kziQm4gOjo0HsnTt/ cxMAxzVPSIKlQcuzSA7aTs3vMioIpq2FrPK2sD1QY2CIGcWxTrMUQS8QLGnJturvDt6wpPeMLDyGTLQn puMz5ax4IvV0LOUT1qge8Eha387EkF6njb9vXFZuYYMBXOG6aSIudRTxFviNr5B78GQr8x5o9 /W3e1/6mbaOi7wo818/FkldQODKmFh3kulh0dINkZEy/uxuHOOccnO/ jR8o0HZAWcrg1yxhPB0GcBXoroWOUPICTNinHWJQrNXCF8alhhycPXAtpN6AqCyRMvVBHesLAlKPmvzL VoPTXJlSpaDG4rjvUh0t5jn7vZ1cIFYZWOMSOE6NNJAfTYNTsUmIQZLvd33mnsT /6kAe02F+/e2/k1+ GzXbdaTu2XzYGnYhH2MXvraULoRlWrTkXoEHyY7tohNixnAVw5pwMtbGkoryHbDaAaAefCDzcfZMWmiS XzfyUe2G6CXM3nqpzcgOBveCth4vrT2d9Y8wPtuvutNPKL4YnPpo4YW7s5uIEquqElfncenNb7Bj1zFF a jNtIY2TvDcutJ3DQe5DxJHs0b+ nc2fKdIDb6r4ByX3Mhedlac2WHqN85D9v3oah5SkCvSoPEVYzdVhVjSETSzYJWyceNYjokZO1P2J9Ybj +BWiKdhyRxzlmQVe0dbx9cs5KjHDwBfC2rpZCMuo64pTrs31p567h2oRyp0ibq1Y/ oZszduz4XAAnMYVIKSWSCzxD1UgP+/yuuW0hRzKGjIQ9WNO0HEi2lRw18jLIiflj2IjCto+ g20D02irc92+jkiMEbDFJuiuzuj56kSfkv2zjxkZkp/ ZwOgX7xEfpcUuaVB9FPVQLMGxgqYNnaOLYtLAvYY14kcBgVyTSb9bogy99puT6B1epyHEURtpIk03FvU puH5HuIQwsMJ5h7c8y0tvLDuLFWUGWyxENMfuDMW89jOGqIH8F9 +g95Nb7PR2APn5DeIkJfnRT3RPGwjfHMvuGNr0Mmf1/LbR9/nQ2NrxTPAYkl7EAq/ xtc0t4C3wFVq2N67l5RELQaICgVmg4pjVcwQzoi9yJh5ovbFCBA2h/ 0ycLg1WNLbEkhNSVwJYIpdar7D8FGRs3McSXR+ PREfccj7eIt3FkM5fk4hbOw4CRujGrAEO3fPlVbHMNufOWYcZT4K7j9WjtmkGiOt5lJczbC44CoZklRX a5 +YgHa+ASMhQlNaK+tgcbB1eI/KYuc9VdQcrZ4Ldy8S+v54rIinWrIo+YDoOcnS1x+ acxfazy2MiNUiBgdOEwnzmC3SKFEtlHiv24d8LjMCXjC8CvNzm7Kxgno3yqZSBfCDr0Q/ zvjMW1ZbpItMIuSKSZHRBfLm3pQwc1V7bAsVWDkfSkwy6Ij7UrjyPRB1XFPzoVqx1xs8+ q8O1woTQqpuXEQ99J9FRwFBPeo+70A/ aQ6Ts3ZwH2HvES2eFd5DQp8itQsEwuBu18234fCT88UUsN9K9GCYrEQMbj3M5jkEhbKgWeDMu1EfZAMm muRUnVtH0Bn2iz4GUTNf6Kcl4QlpQ53Z43QkahWoLhaiaMYXjtXwadzNhMTSLqhFSw / PbxW5XkH6bmKVjTQR0ewWDZjESraXPK8rif75OtKHTiVkQVrqN5yfR4y2nB9DBsOnU3dyC7sUIELMenh yjpm7uiCy2biazAFEucXxuLaHMnvdja + DaLLTuWVFYYa57ta8nhXg1G7w7tGtUkIzq2BPVki6gzbsg3INJY8pDKNWygnPcPFzxQM0RrcVZM7S1Oj Mia6fblFEhr4o9y4uimBghNn3OrVWfJriUaGJvpuuvZVcqhFtvp6Xt3ep9b0uFEE0I7J3xFUpsvfcEVt wWljYVF3Tmanz11xJUlXqM4hi6NBg6fs0lxvpOMDkU0wm +FJvLaQPPB7MMlYwHQ2+Vs0OExDlEmz0Nm4q7Pjfzhu8EsyP6fsbgQHNJwTm3X57UdBrp4ZqufutJ+ u6SFmMWstgSEh+ XuaknDBD7KvkrJIwEkTXFhaHUeWlcyiTG6OZkocejzlGgHmylyUfHasdzXdhnxnnI3fGXWLACHVrwema JGn6EWpS +VPsxv7sr/m4p3YeKwlOqdkFy1qSggvELZwuFWQTNRPwLcq0ZK/ lZnzC0FWqxU2MwoxjipSkkIcy2kDcrVtuFEsSIPEQqq8AFvDPoOdNEFS4xhav4DjMmKSyHL5ebf6GGb+ RdiamsJHWlL4jWcl3Hiur5RboN+ L409361cmtJf65M7oHumFL9Z6G6HGzXG5fWPL6v8AnVJQvTeAOiibCTU9ZN8QQtB/ QBSnomZLYACZCGPXmtotYv5ZERYvRPeZI33GRXJ9b9RFXLC+Q/ aM9t8EUleO8aq0iP8ZoVYZUCW1EqgObqyMNItmtR2GxyYwiFVIOROeXGukcLja4t1Amp2Vo4MHeDX5FJ 9jpR1a0G2Pzd8oMUr1x /CAOFWeXB3W9d48egqamwm0wLc3INxr5805PvUhWOG6GtTPz9o488g3j7Vt/ Mzpt7q9MxMlGTazsov2v1LIGeK4eeyREZ+ UlVhunrZOGTTGupHsgziX12LnW8Uc1S43FOcfEdpDXJfiQKN7fuoMCpTrsvrmENDRfPrQp+ EElkGBr5qZZZ1sh1GiYerooz6jV03XngKPwl7NnrVQYDIuxGXxJVST3Zl+ 2lSTi20EQqaptHem72mho8d2hbRNIbTUQWdWXQSgmPtPOLWRUUOpoevSxIMLCKMeWEwuFje+ 82WuGrL0MUCsVMhJIL4hYlw9r6gyrik2qTb03XY+P3axMJ5t9TE3bGrJD5diNLCCz2wwwfj+42Crtj/ ZYPccjKRKyX1H9INq5q1j5h4u4ag8py0aQpFjfEEGValkELSdiyBWvpvlrSlFi19vzViZm30voBXd3eJ I /dOFuomOI4Wqf1dAKH2pAYvHxGlBXzVQVFWFCB1Zn3Veo6NclycHdC9ABJbHvrzM0ymNPMPdRjBX21zQ +udBtlcpDmhyia1ZW1EtBHsm7o6I6hsa87+ 8cSufBlTjQ3x67n9h0y9Pn4X52fyDe22hlH7z2YeBSofsXb6aEr8tmMh1Lb0D99hn6CwH8g666aDOIZD IS5nHP5MOrrQoHoVUq8 /dQ9WUjjDASfKpmq11Jtm8K8S8wC5iJxDioz8jHq7JhSCMHbJxXXv52cfU/ cR3SdVLyjEebGMDfQGC5vAawxaE6RNJsXZsqnOenIMCuVyRyIA4hXHcpqGAyqiUkWC6BUTAai5ql1u41 5aeObBxJ7nKwH63 /SkNqm+nKUT5XsRqJ1WVRueC7iLbVRAkpYQVLqBZyRpxpiJ0u7397q07K+czPA/ TjVyV4U7WTee11CRwhtrsGK9MeZ6gsQ7LhLYp31j3qjdd0ri7pDCZRnXgUtJz7IQiD44KK4EjRgOPEHO aONgRgupTSKRyF8paL / 3qwFhM1MaLZiF7q67tRZJXe8vxVnk7wo5g7edSUP1p8GfIhphig108dLOym1LtVy4UaKEzqbOCPDAERM WAUGYaNJ8VHJglOQ8LeECLlWAGIiX +oA9A1aGdvQO6haM8p7K72jUHn64XzVSs+ AaCXiESxiErNPtpkxdMxEJkYNGGt69qKLpTDYIyi4a8wIBgu4f5o6ZV1xQDX15HXKGLpAeWNiZHfhYo1 3QeRuGfderih2aYwD164pm1pTaOKwi8bhNxSiGqApPmzdBSrKI1kv9QNVewYD31Hk7Fx5H5qZ86LRRIv l54OsYU yxNVIsKRi7zSNTnAOQyvIi7qVubDuRNQN8m9coFzNczpfcii1HSAIRLmyExoJGELc21FCCHHWmZ0r/ btH2gjydsMtGH1FkBFfH3GzE6M4orqvEvQHBddVru39/ WaqK07L6IrKzyNDY6ruyfgtk3UhIH10q9Ecpebmsdds8Rua4aVsFFcN/enaEZcKFk+ RrEzZXKFRFYRptulB86XX2DWKs5k0eGxkbMZWK7aHQYDieNPFlRZFWV2yq+ jyTFpR4xYxBTRpKUFqfcilR0nrrxGs6ptOpD1HPUmnXvmZKte4wv4Z86f9m35zphY2/ ZbAqxGag4v7bJyNqrcLB0X7p35kg7CPyuv28L6L38k9/ zpupcPQMci5xsfoAm79X7Amgul1vzupkluusPARICLfVIrF82ihPjspYa3ANEICokxZeqvSm9/ hddJwpvTJ0smn6yFLq+kYyHIXXBQ5eOBQnt6ZrYnpacKxp/qFlollZXl/ rDq5wKYcd3gQHpj6sN9qDWHkebx0AH9EiRUsx0QH/ VA4fz6f9GGB18UdgX3mOm8y8EsdNCLBsMTMXgJ4fOPy+BYuHMOGEokIbSLc4057qmo+ S7SPC92s4Ay2mkqlb0kxD12UBc20W72PLxv6Gde1wfNBQ3oPxmqpiZfpjBFThSipZMvoR3RBZJ9lTxrw evQqx4QzsMz + 3rFPoT1lQbn2BVEDxFuHrpNTbNwv7u1VHX3haR2CS8r3hroZYEryKTAiYdUW6oY9hSNsvrg8ebYRgBed DozpQLxAAxVO2OTR60bUmdhFWAx86RRT50vvwlwi1cv4QR70Qm6 /js/+ H1jDUEl3SsBC6MOiLeGnGlsjg0aelvODlJJaEMQfPTvMjj0tkHsBAZr9bwHiBNOhTJzg1PLaF0YMNTUE ANdrqWgy +vO7edNJXjXPwTVndjTWmfDXayeUV/MdD64w6TVvN48gCoIvVf+ AA7mQ8nxRJelbeZs2phS7wfJolm7pOhro4Khwi4cDh76NdnYeHumpXJ689Nkk8Zn2nKt1ha5xFobAwHJ ddtb7 +rMKcd7IL3EI0gsdWfVSVt5by7DO6WWNTJHUL9uFGkcYxlsQfJmMdYnj9tyW1F+ XqRClIJ3ssGhIFxfri7gNDoyH6N7VXQm1llgqHl6Z7m9M2nlX3p1AKEBPmqK2jBKTVK8haRVu6bmyYYR TFd1lVXvSYXEDS1s4MZfteWVIl5WJTAsjfrqmsLjuFpgw2q9 +ktdT2Xh4TsIq7XnjMlFt2GsIMVo6aG4N9kn/x6xkHqnlQW9A332j/ RkO5wG0QX0whqyqppeDzMIbBquIiqd1m6nGzYlWpqNCTsl7s22/i3+ e7sa2r4uvSwp5Y8e9j10gMEntJrQWzN+ BIyPPtlRelbEwccdpOGQ3GTE3m5Qom9XM8Zoza097a4i8rVT0q0x4nNoqEEcUxJ6vpudUqxoqa1fUHhe 9ZyS23K4V5wlnHRwj2lS /g1tt7xxha9xdNq0TyjEUxEDrgjN9qWgIM8B4quUo3R8JKoj1mzTomPuk0uiqt3gc1l6WLfv+ izcsNO9mOGpYTyrUnIG08NIrseBn8y53Jn39wpaU7lV/XA7zqMni1c+ S5AZNtJrOJbTDRJklx3ucnqCFUvqjiwTm4DYalhLTum19BQqvfHCb43xiqlDpjWHMWF4UMenWrw37iyo fDBaRFeRIep8RHshhIVQth8tWbDruzi0qkdrHTypzMm5p7tGbdVzneK5jFWaee0fE62qsgRll1O8L08U MMMOCuQfZcrnGecDODjsMEEAitGItkEs Cs63cCpyOogE9FhMTrhGEvoJ7wLGtZixGC+ 2lt5cV8t6YGDgZMWScEnKnQ5ZqGJouIRO61FEb0PzwvlK9/I41Rqti62/IXf05g3p/ LSUhvAkUg1lvbpte70u8JtzBeWfDwQIsYeaUrXgiFNSaSgFN4F5giwENNM4DRFFDZUEQOUxyqu8PUyAB KJFhDZzbRxrOk3HwYBMYvwboPcmhHVzSJlupTxbNDQfhwxtXziTEyPBPqrS6Iyb42C8l +AKbos8Vk7DAt/ z7PDqwiwKhJ8z7cWVANPIOKV9bYCDVTIv6j2fopJStbIhUc3ipV0FEQvNzW2rBnyTB1SNDRDyvaBM2ZJ RnrDfg5Fx4EspW0HTVBpWGoS3BKnBsfyYECXfGF31b7l157G2l +jW887M+02r6OtMuxlEsgGhSGXYS1c1BPZ5XkbTeUS51ZQTy5grGCR3b7dQiE/ m7CmOQZENJ6JOPqud8sFNxGyG0d2RAP4D98dciBVKJYgmgla1a0cOFhTyteydafDF5JZLxxFvbvw17/ Z2p6bwFu9P3vth00mak0njoNLdNFeJq/ XTUCSS85kJMVc1DFi7OfnVeJsTU4symExgTD5N7HXs1KJAFlDZaP1LqcaFL5AU2+ anGN75XHOSYCcpxQvLqcYnZsE3TYvzRddhdLry18h8z2vpu3vq7xYruFb6Bkg66Iz+ l0Hn3l30TzNQExOXMJVNSD1jU14xxBIRvI0tnt13xDbJ7jZuCKeFemsvFFBKurjyUc4BOGAYIyPqQqTJ BjbYjrUQSKEpES7yiP1KY1qF /L1ZtxnvoplioKz1STT6+b53Tgl870J3sZ8vypx3rXFmzv/ Gn78PRK1UdQe2CVAtYUVGyczjOgpzQEHYmyVfVgaIPnjAyznFStsqa6si0XkbTSNqA1ckCKRkMLObXNN FXNa4aZXvAoVMTcXAfs5ppD5KkRH61wjLXtjCI7r3wa3o76wX2fb8QIu874eBj1yh0nJ8dnZcSscO1S3 kADvj +0SftQDSNhXWSxSITAKJJlb0ZDF/NW95jTqIGVkMTsIZhh/ b5BkAEH9xR5U0U891ezHrI6oEY3SSQ9MyWIgTCiFHWnIiLDXpVWW56P4QlPBV7+j3tr1s/ a1pOMzow996tQ5i6o9PNYJNUyRWkeDP1u3UZyYFoVqhHIegLFhHCB2cPOiiiqDwnHO31xpVKceqD/ S7fsyze4xdUrhTayVO6KZfANJMvMhcgvHO+AGhsSlyaxpR39xKrriT2/q1XJ2lgP29g/ pyijIJxjOGbhmqeMbkJCREsCgkrVZDKP3wKGfOUHmxeMcbma5hEeK3cjhlj5j/FDMUIBE88/ G3WdgZtzoifafD72IYn85BzF059QxNOWjv7or+6AegpywFPb5Jr8B67gNF+uv0714c38O6+ bx6prbfWybKzcq6GRPbl3zpeiU3ncBTsbXP8UNKqU6nooc7L2HyrWIEQQJ7buAXM18m6ipd2B2BaWY+ rCnIA7Wy5LLycm0jPFs8NdAgkqVwUrjDjMLxYj/SEAcBi0H2v+ wtyz8nIknmxshS52h27Ot7U5FVqFyQMugMrxH3CQGqxmzECMWYcYhnHgOtvBXcxrxRnSCUHT5KWaICpb qOm4fYJQxaLCVJLPL2NQpmLS8TvrPB32H8nKE77xVN6u9ncoCLQoCApxpSf1K0FTFlr4csSFsiXhUl7S 0uvTy6 /g1To6nwfxa8h7+ iZef5gS9AyJcB863G0TMLHouUghDfhquKQwf3jFgTkmmtF7Uzh3I4MUlXd0qjxsRIPxYAjLQG2NPhwyJ sP8BuL4BOJ5iyeTxOEOWCabNtUQ /CVBwCPukc4+ HYbRZ3isDAreiqnSbl847X3Qm7PRwAl8mkXQojK4hkKxSOQLFlPNO9JKYKBZRx1TSTsc6Z6srQWaNfzW 00NzOUl7Xbq0Q6V0VU2Eh2Xn1c0KLHp0GcS4uuoeO3BxhmCZxRi6Y52cJBIOGVAWqNXgDEEF6UUUsl2L 6q4tP83693yuN7qW6Aob4l3TB7w5mv184161Opz0QXPd +ORSvuM0b7HeMqsCqLjmvmFb779BUSBtd3xtcOzHR9zbG8FlCHej75K+ XcDXuBjQvfEY2yf2B1KozPOw0rC9bpe6O1Z7f5ZtJFAEo65CjyDMyr569kn32uiF00SEHT554PqRWd93 2k70j0BnnRi9ClsuqUTOoUlW3bVM /EOOO+c+wF1NHeHZgmojMJzoRstmbGvO0yFYE+ mYPAFGk2fMnMqylIk7HCRUpWjde7mGuUPEV6EqCpNwfgx9PX7tlW0eIGk3xAa0137k8338/ v3FntGgQh167/0/ 1xipFRSF0LHFnlisT3xAetNBGwm4UC71kHJ3C3KlvcBOKgkrVpmUkA1BRLVSwEb75sWUk8zMPKkE8rNL hU2pXpHMEJi56FeOCtxF8nseOzE3HVGVVmmmpKhbbxcSV7ikd93E65A82t8zCRsfHMOHP28kbn3Bm7x +69y3WDFIACG6ekpmEajM+2Pj8Y6BUJ6VhxfGk+ BK2JHbLlyBdOv7ipuuijdXKXIQFa8bZZThqFgpsbChS7bZY8JXGwx2GRG0zhuCEy79BZnaUUSbBPlyhq WXeC69SUB1JvybnzSyvoc /2vkf7JtJnp/wNAswmP723ElAdZMGQQJLzURFqG7uZPAFt91Ptale707UN/ UKDuYZU5mCebHA8uxJGSciDXsleg9gnY4BIkjnTgZpokTvtWObr2Skq3dVGQJpK68LjgfrN7l6muQ6VK CEGhomaq69eSenZZ +/lon3/yI5E0fezTmZc/y8dTUG1FinkWAOfS7ChLRVx85Prfw+ 5WTzBJXwJdTiHpnihAI6oYPPWDODEiUHFLTiEMwNjX1Sznmx31NYzlNT7B4Lz6RQuZomaRL8GRyc+ NiM6kkyx+YhqoiMCrmgj186o+XS/+Ashkx5gbwXb/n6V31US9XI7ukgcjlLD6TFMc/ QUHSSlnxEgW6IW5MacOTmzBBl6MzoDVqEXCOz+ 8ccQ9WNFg9xQUQfoLDI5fDlxFGYzz2lSSAy4BIHEjQ1VueYRgY52B8ZbewRu23y/ P3oVuyCwwq9vk785o/g23fUdhMGYuDyWwoxPom0RYSGyWWHveoIEde/iwc/ tM39zK26HvxkCqSD3mdFI5Ep1jZy9+30HHQNKbvKK06qfL/wDq2YN+ mflYtkUeAj6tcG5qrYo5B4X6yKAHCMrVvgAb/nz5sykl9u/xRJX6qfpZW4cc2WhGSth+ jXeapLoTfmaNW6XjgGksWOh9z2nUQJhya87r9GuVmG01Hy+b8yvjamPo7B8yq1r9bGA/q39W2Rb/ 1Uw2iBaqIVhtiF4xw1uctvZRs3FvSYtT7NjmZ0amryk5gVP0l9SnvYQDOXN+lowtbY6LbwVnA5D/ ApSf3WwKfEX7/jKqFYKcOwJiocIzXBZTHfmHDhAUMVP46/s99iVBZUYgxNoA15qg712KAZU9pNvuZY4+ dzaX3y2sjr0UCaGDxmxmal9w8Vnkh7uj8+ NJvZlwgYYaXrnjGerX2878ccdesqQK1tYp8iWEpVFA6YWK13C71SGJRremPwTfipiZJPAv5SIfdsoRpl v07IqAhP2hPzyg0z2SJnSGWkwMwzjQI8Uoje9ihdcu /Lca4NDG76qJ3u4P12kaq/ rcOElkdTRYOK1OXP3sfrU3M4158CZ73wVFTM0dqyoW98dtXvueDeCrWGoX8cmrVK9r10gIUlwl3yoVWy MWq0YNTIdhDMzH6TPsGOgYtHnQYVIOBK86oo5HOIE +/D4wkHd28enF4Agv48sTg/iVbW+/ xzus9n4dibI8usVkSUbLPtSZS7Fg32gZ1YaEyUznlZ1wjw2H3ywkvYI1TwxktAV+ RLXBhD0Gmhh4vpC550D6Vt8xGl3Phwq3Y1WSYrfrRlohpgdwiqvhou/+LiJ3pWR+ 43K5jIf87O5ysgBQNYO1x3E3l/ NqwJlLijW8AkwfvNGDyRIauzVfIg2epCEBv2rGSG2dAk4E59Sizo177thKNBo1WPPS6DfN7197iPI2AK 8zZpKACUWWZX0 +wiiy9k9uEb6o/ TW78gfQe1T4Bkk2cVoxXVdzwSJI0fYZfyn2JQObB3Hvg5hHxUwoSTBBTKx01ajNbexRdKGXtpvycphfW mRMYn25UIjnkD4QEZFAuGJpVHFTm6dUhLkLy2 +kmTlY27pdpqa8xrne5qEfo0bd/j+hxbQleUM8K7BAuvAgtT7moG/ ZtuxsZ4MRf8KFrZK8OZs7yxItGju5kXUHMz0MrHPCSBSfhBKPH6KC4Q0/ V6P5MpGYVVHoSrJIxJNEQibs+bbQ4k3Bvc9u91Cg5DZVCV96ZWH9ox53pxlp/W9TiXvC91R+ AUN4tVG81Jog88r5YFCv3vbsHbhTGI1ULoWQHSMZkITE7LHb/omCngW0u+ 0M40Ida0vdQP8PClyjkuuGCQ8knIENIMBnv+j3b3xpXDigWA+Fy5ARDPT7DW3GFjm8qwr9zN/ X7a2uJN6LsyBw9rf8Y2hnF+na29+/CMN0W6nqLHeztsAgKDlQgL3cHsp5GamyZNdtMwJha+ 4CZw6kw5ERpyEAtdo/ xjF6fonZ4nYrDe0JTYMWpHhnL655YqJ82GBFBNTRR0tMJxWOOsMqDAHgC519fI3dwPUhth3brjwzlzg3 7bea7X /u31chEczAC3I1zOwXOmYZ7I55ocYq7T0EOJcV5p7nFAkJTLZM1QC0q+ 3snyZCL0bDtxUsxzgBQdCBc3tFAS6jIPvfSwY4pF2perSRItIPJmAgNtJaucvtmX4ebWPifAfbs+ hBBIwIk+Ady1xa7yXglNkLt292zcsuDRpkRT/E1al2NZen6+7zPZcStUk8OuFRXp9G2pczaRaZE+ 25TUBg8tnmZrdkMBejk5ieBiQ3bVp52VCfyjoy630tAMTmKo39ZBJU7ZCUMcbKaW8Qmbv4wa4wVM4rrJ nXbARIyClHSZqLTZTJaJ1LiVG +eu10qgAk3X68Etre3VGlqQN62oueMS7XpaJ+ P5yhRntkoh7fWR0Thn20SNKqC8icscbyItOp9l8yZXfxkjoxDrMOhCh+/ YPL2Aft9QchU9AzzPi8lcsh8Kh8fMYWZR7VccMK0gv4P0DgA23m2/ jK7qoyCkQv3s9ZqvsgX4vWABhgdwHX5CxbYvJNN3pzgqn/FX8+vn/yKaDsGpa31Dyd2bh1go5+ vDan6T6N3fASQ5JikJRYdYzqcDZhJ63xVZmj78oSM/ oILwYxh0AUpwekdlOsAHCNJCLQGervrAGIDUhRHEePrv26uWl5tSMo8a1Z8+ HZgjHaxFvBcGV7GT78V7tQ2+fefYXr1b7AxckQULsODHFfCVgZ5+ MLPJ6XgKYyCOFlwdCcaW2U3p4kjteX8lwgyyO1Ln3bbJAf3/ YuVScAs4XopIRri0LIHVsIvbQLTQPNrkIOVZPgHlHlLT6FyYIY3mKH6eblfXhHRliqIOFP3KfHNauO8c B6wpBHDQCfV5WngYp +6rocpV9vPfIBrdimNhNdp8+ RM0KBrad7108Xil6yulzA9xuZQYcguD6JWTRkvCCkeALnFkBCTeDabPFcoAPaxftdicukww4ZFZpeany N8Ijx4TyiecnQYT2tfvT5aIYrQ7KVRDAivzUWcXZZU1GqE +0mYvlXnx5T/PxqwJXuZOy2b3Hu6V7OyghzvHGXFINVmqRIKqYJAegoi1QmU2+ yi344rifRWyJ7BkeFITIZ+O0N661TFeofneHNdE55zNTR+ nzzTQIhHFlNFgVsjDUT2fnTRRTmBjF5wKBeLlAYghM74PMDt3WhThlnkfbx9O6+ ViljNh8bVEd2rvnf70Pp5t4UM5+ wLmyj289DlZBE8rqlsTASSyNV5XRW9ovimezBlMQ6VV6Z0InAggCmJMB4UrAtLcgJIcOUIBBCvCNNWS5 oabkcvPXxgvNGUDeoUmZGjFk6a6hzBWU1hwiCsHUBjECXjrH / OFftrZhDTEDcXeT14VW5j1EctIzQ2Jz80TP8SjUAFwknI5nyToOZAJQ71QTOKAJ2Bpyouemj2zsC194q Wq8 +rTJdOaUXqueKlF/ hS4Y4B1lst6vhM2Vj37qAGri4XGA8QNlVlInTtlOX6a1RZ2oycWwm3YJIbnCrCp9WgDefAh7g5ro2nN3 ZqWagbC1ySarGBbL28xIONpXpcCj48BKiAJDch7Mk2qtZYjfexCtPjvMyyQ5fbhhfm7T0XStNL1 /azZPhelXIJ6pgzQcz1mE3ES/ uUh5b9dxnSIpdPv2gkhiZ9mergYb3KQp6EusEzCVHxLXEVFDrFAOVs7Tty5CAMoN6Awlo6KKyqZLPSAL 5VGZLOZ7OO8P0n193w1X5M277 +jDBpItF+36vprn4oT1F0xLD8rGGNvFr1WPtFANPGKvEQI+ cwE03v6A3wNFEmbw27GVzN0OW2tnqq3QQi0gOMGJIYg78DXgGwjvxHC3v00z8bY/ IyGKMFxbjABDKfiXdddvtQxKIlc3FdkNeac5d/ PGebttlzlhpyXTyQ41RURDL0ymMkFTppX2IEfLE6YqZTCMw/zAwUDJ38BgLTL2E0Hfufxbl7ajv+/ 73J6JVusqTwpxOXXcDQLRPzm7pn5ip1fl1wwf/Sr4t/tD+ KdxDckTLNwipSMZGqEZnTTDHKxjMvigalQaFRBXAmrTcQq1dPbX6ED0pLVm4HNx9UnuxA6xUHTnlxkeH 0YyIWFDMQBQiAjPiGuOmCtT8NQq7ak7DyEJp9aw82sPUwS3JUzPxBUsEH2b6xqHDVg4VWHvqshQaKb +b0zadybbV8OgIeQTlWwB3jUd4y/ I6k5oBUGKHX8rUy3evr3RKLLocvZQply5qcUbmuk6c7wp46qw4mMUcxvGgslRKOHtuHAzz9Ev7PDxHDr F7t5qiin12 +JocsmYsydvzG75gCEvMe7Xxe1IoRHcYIiWeBuBrBYYXALBIYAewGm08KUlna+ CqvDT07IQhxPDsDEPdo4rtaSPtrfelJi+NOF5luzNAAb2+rriEFTLGmgOLKrJvvHqxLlGt0tizrWkJo/ W/oVa24NZhbTnVqBvkERYHbxdRAW/ kEj8qKBZm5KzOchUpY8iGjLrgRHdtG7H2dd1s78eZ8LBATKtnFSJSjFldroiakpE1Wjeltv33M59h10q 6yfNupTbWMO +Igd5suglBpWTvBpn8bmoviJ7cHm/Oroy9LfokovD23X/HvdvbRyFcCSRFcsdxYgDKsQrheF+UFlYn0/ Qdq32rUq7bBhmR5RUuD6FxmuVTPtVkUz3vMTA+ LTuUCAONnTvbNQhb3q3XoLlCJzd3uqyBVGQOS1JQegUpIJ1XW2ZTg05L23Ue3KYvGpoa80lV0x36A94L 2AgiQjIKv4g5llfbZJGLI8xwK7hk1hM8PjZ /R/E+w8GiZx47n8w2efASqOR4tcNem2XVpuyF5q55cn45+1BSRlsf2v+ TrubLaHrgkl51m0Noyz22kmNIBff5iLNyxTdD9hbbuDJA5PzNZeCehQVATWGsbyfaf2H85gwCR9fmrPK rlpqfvlqhU4V6QpAGlhxmlsG4PPGumbo5DoROfUQnA38rNxvoX7716X9DEIvLcLW8cazgpfzuV69n /ftZ+G8EzcYLfyDrwpKgo6ld6IsY80G41ob7kgU2Jx7TW/ FGprbNBZKsJjjkSRtkVtArKrSzEHLyYeTecRgtuJRBk+Y+EvBfj+/1WdspbuH1QDnLdBkbYU1Md+ njGqeKYpVIb7t2NbJLJQ+5K9qu8R9Y+IvRz8brohsZoo/ k9ArctsykKqqiDRGwCsQppnlExbt1bUzMtWuGKuAcy+zbqxvb+ MPvYXrR8KVZqkcB2kmkZifaLix4Kw6KyCjP91MLAQc9hf1D6kT72g24b1xL0vdDNRcSuIAQOp3iducrj zs5dmsca1bt1zT2O /MDiSQoggc0rueeqvp1wyZ9ehCuh88HPS+pkO5nET4uOHnktXx9HgV6L02/ ghiWyBu2pUbFFLMrMlMutBFYVhq5pAE+fLl2v94VFZthpHP/n3P8fy4y8qcgnqxY+ Z8FbY5OzNMlbFEO24LVQoKKvLy+kGyf6hbVQhd7Q7/ Kg150LvVxXmh8uGHzgrTdcw2CZXuQvskrLftuu4URjS9frPwkGzKLpPa4c78+05xb3dA1Jl1/ ctogftfYRRsTqSleucmd5ehnkP1OALhTtbXOgoJjbo7Dmz59YNKmctU3yeqnztaSJNZYMOJ1BVL6ZIVh 1DGrH4SZdTej +/aJ+VBGutjzlGVuZbVuXD7a5dnX2HwoZIylL5TFm0mSEQ+8zO1o3JiqYWqg6RnWe+ e2ynfIe6mUKcVmaItwKePs2vGVGiibi3hWUtDFacCcjb0QuG0QtGv+F7w21/FptjwmgaBc7tT1EjlpU+ KFpbgWIDNwnNRHAtYfjUgnHNZ6z5dp39mtp4FqouiFbce5edLWsj0zxcn5UvhKm1nTFqL2OhnpMGsK0h m6LP4b79lsEsLnoDxNCmnBJxvxEMTPfoStNpR6wU9tf /1j3dEVtG3Q4kHoW1qGg6MaLTTLMKP0fZarBbkaIn/Kp+SML4uKsAwXrKEYUg76rRV1R7J+udP+ 6qiPGGpiC8hvN8Fhs8UXIQr9sxXruqxxkMVY/ VAAHfs1hHsrHJT0wtM0Y1nfED3HC03T6eJN4FS4daeJHqXzp1K0FDi1yb4me97432u43zaFjzbW54JuM ST8U8V0Egl8uzjydm1G6Y5P /CD4i/UpYq8yU8Br9QShgRp7B5EKftu54pqgiQf0QjtrwcEULU/lMd4+T9i/BxvPjf23C1/ Kj3SWLaryjr1tUky6DfWt7T2qsiKyriZKCXE9Zdlty/ Hp4VIYasJ03VvQgaWT2lDpcipw4a0ibENfiaoRRtklIP7vC+Cl9u582B4+ m4nMo3EIyEXfMnzsOBZex2ZL8FCy6BW1zRegjvYiCYILrwgkkCK+thlN1YtefEqAcM40yRD0q/ MrZfRhZsBFzpmqUwBPgHYGIp34SD6pTkPDjv6xaXEjQlPR1cG118WbUJOKRGl2n8GSWC+ 3dQ5KOYDzTuS1HCG8Hnnfe6ICRn0SdkjjdpWZivgwKNCfY4iQFTD+1BPFR9KovV+ 5YAz9fuqsVbdjy0HglHCPaQUBid3qWAcC8RLjWS8HpYvnqSL/hS2ZPmHUYVpuef/ JIzZ3exTIJo6DJ3nP7/S7F2Is8/W3U+XmWbohs1z/ TAAvT9Pw3Ak84vp7Ypq0OrTq0qprrC49UhwjFUDAZNNpCbSi8Nx4gbTRyavinRLKNJJDnW7cXvUFWs5T OPcQLwAkNdixkzgR9ipIl4DU04a8HhczpPGNWGoRQGndKQjFiHbuMDpSFClel7VwtAD +5VO0SmBijoUzWBbJQNITKDCUhh0nMQAaQCqa2B885fbmoipjmX+cOIonZz14W/C/OK7V57eseioE/ YSS1zjsqR87KHguOdQuckMv9gOhQOOvMc6tpNbShphkahnF0LMkuoCD61S2sBsE1Wd+ RUwpjjR6fyVH7mwzYll7EQI2dTk8Ul4GEDGHZL/l7UcCOoRwDQqgTDeu24bpyY5w4x+nvw3JadKhFEe+ a4vGi4stnzH+ MvXXoJcHRG5SZX5auYPC7FFILhg1VL3XWzBTP12CQRehdaZZYyI5UGh495ova9TjCSN4UQiVGB5s8Lfc DeurHd3CRRocmFaGri6Gq +Abhijit/0R1ac9TW3nro1Xwg4wYjN1KFVmL8nooyYD0aCqVNbGEuFukrqsPzCFLGQl4nSQkOI/ R2BxUKAYbM3ZbABsvPCv5UP+i9Lr18/5LjkOuhQIi0Y0u+ wyoMj4Abc1o1wxd7RuGezadrqtHnSuzCwvmAixUahKDFPDkVbiqq0fuQTuolmz4qf0oXSYHDPc9IJeHp fPCt2wNMagB5nIvSOG8hGzo2AfPTnv3jqFNJ5AOhKrpWVUilUZeLPJVUtWwng7X9V24jiPI / 9MMKiUj4V1Pe9JKdr4dDzYNZhLefn4bMx6Q7cjd02m19w680F9fzSAAyyZnN74lxmdp00JG2DJl7h9uY F9PmRdjUP5txynoA0A0Z7bZHUSKYSSghcncR3Pcg3rB /H/AMb6/a9A2ffM3CglHgely0awsMbdPtVfhnV0SuljQaohC094oXocEJU+ yA7Z5c8dJJMNKrHonQmLpmBAHu8VEcbDLls4RPxnz08J0LK+AVjTPG5f8xn/ ZFLLpu0GGPVyChCMvOLiGXwZDQobE7VJW0IAr4g8iEyPvNuJvmK9c1p+ uhe6Q6UWo7Uqh8WTsieNCrwsvcJ5W57WWP8EKXszMawP9tB7fuhF5Vgcj9ahDH3GyY9uf6rTcL5PSDnp 9lGlxhkj1w5bWpfopJsCwMYdrgmDxj +ZxSdgQ5q81RISZXg7l1Y9OXo+KBkBOmwg1fEzfa80gjzoo4khHbUH3aCqYsb/ d8aaix5iFYQiekyOakNpqMIcW56z7s7Su1iOYPNbRqqEvLp2JzSxOLrE2+ iVAs9yngnPlywAZ25enI7qoWbmOab2Z2ShjimVMXlNhXYb9kv0dDPy56dqp5lsgZvwHUubLnTVqM4cY2 3g69RmD6lwLYmhx +S7wreKcYNQRKCJZtH3tiLanWYg5cyiVqcBS1aqh19Pp8/j/ AKO3Vd4AjgSykKKQCoVORO4np24jY1WBHhd0WouUxYDlmtEgT45W456gR/ r5kxBOSf5ZVlKayoT9Fr1CBWSTLiRYl4y4yD192Cu96UoMCZdRNjYhpxa1y223Z3HaaINnZCRWOAsiHB MTEhVpizeEtCX26Vghn80fFATSUxVW8aGgzAhkjqY83GefuQ9v7vk578Gx6PZTwVcCeoK5O7ZpHfWMTq K TkBEI0PgHomBdbjeETNmTApKKpHoLSXI2xxhPKKK3cD8uc5A9zw696L+OenqnZ8jYupKCvks+ qoYjt6AoTjC75hyDBJTs3C/ pBNQLdoOU1wGPxhYUzkdZQS1xspYl3VJr8LzqklSKVO44D2vyyAw354LnZSsnOoYNOXOtL0g2XDWGdmX 9Z4koiUGw2XVCw8ZN9ScJopfhXB /eSzab6eSjTF0m1I4TqVhwlio/ B72usL9ZDwYvZkCF2DIXmFpK1J0JsX4OrNCfMYmtaCYvB954HRcPdkkIOYYOyBZ7TSYDkpOG0kBGZEQW s9xAUuSWzY99ewVIT80ZEb3fvNjb8JMD5 +MTL9jM6kaUUKS1Tcpd+Dk3tiGAspTiV01p7bDtiPXoCvUJC69EBQoKQoe7+ yTQMRd5hD5zTW4WhPzp69Wao1mGmNfaqLBXjaEqYEvsh/ TkKnkC4zwrJWlKGNLeMawNSKP5sdh0fCDQKXuAjgPyEHgWyf+YOb0U2VlPt357fpmCtkhRDY/Tpp2+ 9IBo1wul/3PWsoOFxACjWbTLFnk4ywS1/ SakQfDItwZvyvnw2MMDQ5qQAC59EZBhDEV7vxkEeccMPKI915NT+ 1fOOCcxDPP7LUYIexrY7FKThC5hi8rXFg22QhM3g81RtuaZs1SNaF2AoX2l2/n3/ AITb82BcJZ8cwtkHQBMJBh9ePSPL8IiISmSmuMjIHgMNKOyw10TmOmGL6QIEcZiYUIAoU6jIMqKfc1QG tz6QQMGnWnVkOxbxKvwzWbsXLoUJXWnngOEug1cU2IY38Wi / DBIcI0w0WlbcBk617wYxSjovmGRLGrrqSMuAQl9zpInUKQWlI6O9ETt4cH7dZuyPAuHLoBnm1bWdpYVc pZdqWgEO4VEOA9c5nefa0SgnrJlgLE4TNj7lu38XOtU4M27SxI5Ee1B0wzon6 +u87Rg2kE25K6Sv8Uk+ e1rxWLIsFTJlLsGNfmnE9P2G25iaKibXcXdFjoiEOKHYGENWk53pGDQFW4O2X5u73Uhc5KlHIQoVioBk SLNHROhXqDsqU84MPjLVaQZQSIK6UYvTvCjGXG3Rfk1mJf5hdKqmQ67u +pj5iaozzIH+ik2kkpf4/ RerCoHO5q9zZmXwHHFWmeDZQb3USgjIecBuA30FSGJC9ZdCRyAXADPyiFeMbUBQWTmDuppxecMZTBIHs tWlv7wS9 +UhjyoRKKqpvaEoUk5CuY3jpyvRsmNu4t3Khvrx07a/vPWyL7dy3/otfTuUPKAGMAYPyj+ 7AnDnEHVllAufBYSAL2BKhYKPYTKJVq7euhSmXb7fndc1lap9mkO5wuuOUgARj2GMjsEflaspofliv+ t7qXVJ54oZ2qcOzSk5Q9cC14+a0cPlw3cv/46Pr6v/gnKag+Ac84+ 7oGAZ3YCAyhzhJ4JHjVRBkRxug1V5EmitbkQAGzpXE4Kj8483E2WEiZPcaqTdEAKiKbxy/ RuPfjNLaz035IzVlXFMmg3fkP1Rgf1inMaPqmaczZB8xl5jw23o/r2HEExTnMD37U7e4uzGPL9KSk8+ NaXdM1NhiWUwx5CMFE2ASP1fz8cyLclhrfniENI6YYdQgSu3nop8VTSzbrPTfvZiMREPMzrhnnI53LzE d08eF358Y0NENAffKOtCwByxFwnVpR +P8E22N8YaYzm3Na32EnAeHuzyQ2a12Q/cMU0DmPTPRY027eJvT4qb3THj/ EsFAviorJE29IG6dAMEVOwaJ5z8DuDX4fPFjWllNIdsRTJCNUqBep4I+ V1b4VtQvIicjz93LFAhruhIDnoO1GcS6Sdvr4mitsqXld3M9mR3Dwz18P4nhtnh4S30Du+ 33zDwMuFPjHBZp3hXFYYxl7zQZ23/e+ EMxH7nA79aAWRdOq0T9JmI7pE5RigcxXZBKLUQuQImRRsued93yvOVH4WjDgS1P40YHIF4f0vKngp0WM B +6ymaPhB0umAD43ecvqf1oPy7S1Fp85N8Lz3gl40dHh5hYBciHlgq9WtaXvG/ PtT3MfmoQrFjTBhGfgsO8wV3rgG6JWufZBzj9Bs66+ WbELqqPCf5ghdkVu6cRkcofEwvWNaenfwwjI8LX1MUBalJYMWXQ8+bGc8cy/dutWt+2pnqPd3/ KmPxMc2BjN75n4UgxujkmOmorTfepqtM7yy0TLT825kV7mkOLA0D7185NGnnFcx4SY3KUbGYUcuyx05e wc8lLAlNxn5ngskv43a /BmTAUPavK8cHE8cCkWSIWuUJb09TT/w93IWNkUIXCjKoqAuJTwUMOnKT9k5YmkQG+ srawrh0zxp9uLBz4Xusht1IboXQs70lfQk82BFFSqYe59GWIuJo0FMCpWNFMXW+ 8CUVVp35uiDVyJ8YVJMHtkI5SSibxDiYW0QpqOYbwk74fhYvqfqwjJJTVVw5Bl68ZYh0Y4PDgCiunv47 kagA06asomqwidz5 + UA8kW9S8ZxdGpN3TupTsJM5IJORCpmaftJHw4Lq393KoDazNgF1NWWhHTlZVH0uZ4FR3uenu3wGNTU5w QakT4qeQvK1ws /AjUWhjGgDuSFWQldlhy3tJOACSSrfNZfCVVOIWqUaZQo0+bt5fnt/ Vb5UwnxsW6fL3g7jMufxSMYyQKgcRxlioWSbXraTYXsmKYeHsDBj49QPhDPRn3Lzr9mUGEb51dex3h4d bhkTHtPngIKnecD33HGVX +cVjiCCVUIrIY0tmpMb58NTEDZGMFMDCiVQ35anV6KhRbRg4Hhzd8jofGR9LDte/ HqnFq73Nft2WTdjuO8WchjyWgQYsrQN7SoVzlLHzTSDMNIzt8ncTFbsKGlMH+ UKPyM4OcwcIR6JJO8YW4wg5DLM/QYUowSfK5UGpWzPUEI950mNb+ThrubWtBIznHf0m/AFr+ LaPaWcgm96n+ Ed2kQmxAsWivJI6oUf9RBYQZCt6o0qH2RkX0vSFmfVPQBHqMpUaE7YQ7Yqz09X1GXZSR3Zw7KQuftC7P m8HI +3iDDWByVFR664f0NTE0zyYe9ojszwR8u9Qi/wDg/vDXNeeE6Pa21l8ibv10K5oC2K+ AHcx5ium3YJSk5FkYLIG8uKJUi3I8EcyVM71svFps/ zNqoa9kqg0rSalYLFqODGjKvR6J2vMUIaPFxpCuLbP1ufvmv2YHYAH6iq2yU0vdrxZTlnSxfU9kkGzBp D5PqoTXwJmu0Qjm97t0Y +E7hRaZSFP/KqjuduYpy2JJa2JjwFwwC/wV1xvQOkEeeN19X66DJuhv8/ 1DJlBv6P9iEzdwhG34hHH804fc/O1z/RT/AGa3b/ xQkwScTRLDzXAIKTI9ChFHN2lKVdiU8sVCQCwI2FKNhsU00qu7aeKBnCoVmp8QoijEGeQ56/st3DT/ RKx3WS667L0P0P7NCsP015pFomKz/LjFxmpo9PpCVRJsdT6HQwMOba++bIacF7tb4c9prrdkln1hywu5 +Pt1PVZKXcdhp6+Xk35/2IGt2WXqULURVAiBYe77UHyznbN9RB0jXSXlLKVAqVmBI+ psWkCNCDi7TdABx7Cy5Td8mcM67FAwC2NW0auWYZ3/ 75WMsVzFFuRSkS3a86hWBRLJIJ1o54ySOTGvKCMyrDkzS01a5RVCmbmGJzJr914JQ8Kr2SWqXZFg88X0 q9t0vnJMu8yVz /Xd2wLPMIL/wD0jhsASTfkd0SYL3YL6nj127vpdrE2EWhvB5qtbI01gcxwVQICSa+S/+ HebTR2sS9d2yxX+TIvnXPyFgS5rMAGXCfME3nidCL/ckgbYMqmgB5o96pu0dUnCizF9/v426E9qyjdGe +NqEnyuDRHQYDorrIjcpE7HUIPPCb5C+ YEsySumG9wa2orECcMnYKaJoXzXVpaow7hZC33L7uu27URtykVaWrzcDVxLmvofJoGU6nRrgJKKu24vU M5ORrCz8Ihp1qAqsQhJ1yM4m /kdetLPIqA9+RNH9DFodxRHObxsDA+vxFo3/OSw6ecHYqBX+ LJS3b1wqXlrmHD7PsotMu5swmij1vXiUo9qfkUIKFX6uG9O2pw3ycv4B29E/b1/Ygn4TQbd+ OTXOc2lwhPiA9C7GwT6lZ8PdoyiO3zPEnmbZu6gASSyjS2u9FTGZDFWXHnvM+ wjSJmm62Gy0yOkXoAW57niq21s7b6psopD12babmPRxXm7fFkqS45cD98H+ 2dU5ttXpytpRnO73TLSVciLTGKDORIW2FqJ3fsIDZK05ejYACORCj1TQKPK57j6v/wUE/ Wn2hVZzPw9O0S25wQvl7u0ryT6L5uizsxW6s4j1r6TzqPV9dUdJgeZT8e2kFxwMqH9dFjtZwahclxvVZ SQ8JMpN9w0ZPwKcT6PpdBHzrK +h+C0flO7uYjRhi687rar0+u8oMjILECvRtjSyFRgYHdjjdF4hYmMlaKsRsjfAJ2r896o24+m/ hyWmtJwXrQghkNBf7KeKjRK8UZTG7JO2FMarhvaE2ssIR7BUb4fhzxVVC3NHaZ4EgXDF8Jp48e0zDAY9 FH5SLL4gU9y99X2t4rU7bkW2RvJ4U3sILvwWdElVeQtTK7T6vxUvgl4bn6ax7RcGYFhSTxk6j3D ssRyQzKvpEvxH+Qng1L5a/DbKRtO+ kN5iUAHsW6TGsLrGH6LVtJwe9aPEHoRIPSP2RI1Pnx6dw5CluhxFeD3x6grgSqRdj54oeMhw5pFocgxd SmE1feY4 +f6khaYfw9SMz5prHianXj8foN8VT32x+ RZR51bRMprsFYnXOHDGI4C9rp4JChRncYo9fwEQgC36c6HZtArp3ak6p7YWWgB7VBkFXiEMbz8XV4eFf S7zp1ujcppz7ddhsJm4kitlRl37glNyPEDNwF3eZlai0KK8JKXtkoXphThp9nnDY0R4eiWEmlkDgrXws 4vJPuhqwq85ocI4amfedcxYhHd4KnYmOpGczBRrKQlnt1KtaKC041cJjloPXXHiVhdmAmVUphmTVYRNM QM9RCWGnfZ 5uttHtqkfrmKtvtGoCLNJLGlKCIRixF0PHoRnerBR2Ij1iqKooiCJunsNUBHTsSPSLJqXwCanWEqctLi 4Z0bf9Xhx0OtLrU9k0LU mxgjSjItzPQzGZuiFeOwIcUoJyOgNvWRz2O3m9ggUtgT6o9xH896vyJTc4XQDiHCO8qUlzDcYUg98+ ave+626+i3rseiBSTdvUs4uBB7qHzazH1+ kx47ooZhdZokuph9ZQczOonPp9qtyfSBQIbBYfkKHFTxINZLl7h3z7QQq+ FC5F27IApFrlBksA63mw4FRBGDDvAEQKd4YttkCz2n2euf4xo63+c9Bjzh0iZTG2O/4/J/ qlpbNZxaM7zcFvElsrx8ZGicDGYumQKPI3ciHf0iE8lZMKU7jPnNDGDSCeDYHyV7KYrElT4MQBFDlAF3 lo7KiwF2QYsdLVUIN5XEXqFWr2xUgulWhj4em8OA /n9jlyWpzUgLgtHHyck/ F19AUTq1knpvv1f5IBMh2x5A872460E868np9W9oOPJo7qOao7qqHBhZmcEZpciEBogoQrxG1/ MTLfOIebKXfbfSlw2FD2sDDzJK3N00QCDU1JuBbpifGBPR5yHmCaJTMkVyl3km/L8JIDmDxy5hQE2wZ+ J9QAatvEhF745icwa7WNgIvK54rjvVG5OXowcmD2E3po073n+pop47Jlntre+1/W/y/ TnsjI8szf9vOsLG9koUgs8rjcMefUMgLCrLedgRqnilKLgCGzVZJgMKBxETOpPKGVKTAmHKLyTLy/ 8hc6SOv54+ kYWxCVLehhrLUbeDI5CO6bNQaRlnBZLXLZdNoocVLvrrVlSN3zCmUGZ5yJ24HcEomaehOmVt7e88YLPC uxTijcZr7JqU0yr +gb2VFu8Hl1Azwyhr+i/ Z7iey3xOwC0P9egIHVkheTr1NRRBkXNLub9GlWYTeSSaZx2rgwyAsIrryfFYbLypDGmqDCCG8qpXOWAN qso3dqkYq1Smo6QqV7j +3RhREPaPqrEz9pReiEgMGMAZ4LzpUTW+ 3tEQFSzVE6Ma9JF7qov0SwM3w8ZL3uYIfElPFcPmxIQ9PveNyejGQuB/ Slzx7BAb5orWnSZte3oyogv699416RtIT60S0vnfHtDIzQAoymnEQ5vWynSpMGJTfnV27fwri8o3oR8H EfLFRDAWoWQYC4pu56UtjzLBQEEryaeeCNu7thy7cf3UY30qD0zjTuasF4ivtUYqlBYOidYpfXDt1liI 06Y1mrM0P87VvpWXOE27e7KZoYkccFrvfMzutnqCAvmlUBA / J75RskfNr2pdJszxfo2Ye7d0UWkZyucVqv9A6Gxk5zT797aS1NwwTrALGBZ3iuyBwbHeKOuSUiWllnnK yMy8yb4nnwr14CJ / MlEZk4RgmTZnaJiFfTtYXFlydJDUUoYerFQyBohEgTFJzuJeu2gAdA5XdVUNKOVRFFXdUmRvnkwFROF5 L6QZpSSRKmlL ++7GtMamb7GAoCkNNSjxTdPMvHzcisjsJVQWNr3skIbTqs3pm1m6sobM198Ib8qmskWhUZ6p60bBVlj+ H4es5evehO2BeCFq8peE33zfEFmXhPq9ljbCJzbZNIOEnGXQXFzkNGZxxrScmIXlkca+ ksxGJtjOFiRCyKpJ+Zh/FyEHWAI4RGVI5digACuzH/h/HM9jtPOoNpf+ CJSJXjwFjRuJDCY2XYYe04QuaZzpg8slt2ZeJOVexIa3ks6lvFJa8QYqPZ6Rzg0Jdzr5eYtSgrtA7s7U zKEghdSH5vP36b65ly /OogmeJmx6NbgwH7hdFyIwju1f2q1venvqBNYMq4/KdJDOYpDqYUmoudwwosP9b+pFtd6eQbX+wD/ Zocn6Zuwjomo4aSK6py1RwIDD1Y49gqr7E+UqrFfftvvMZ1oe9Q5jDBWnwBWtroXUkyUeYW9HFCtmm/ FJOHyRG3jQIhhUPZSAj52VzOwUen6uf7B8JIRFEIKR1SO2rqoFMVHTK8KQOiNX/eRQGx4+ YuQR4RTGGzLH3S+nv1o4DuwXkddde24WXvoEb+ 7xZ49ggcrCgpcTj679ZnUQjF5yVJvM92qJbJ9vaGcOJhemejPwtJFaPBmzL9phTI+9nkL8I+ KkRDAnRssq1A28D4e966lWFlCogU4FGmwhYqbG7WcVUEG3zPyt2ihC8hoQXsECBohWc+4TocpH5D9ftN / hWCeDEDoJR40BPXZebsL2h0zEqFEE59dhNIaQtTTceVOPRaYASLFNN57SqHJzOoxhqJn4tcKX87ja432 9869G8NqXS00xtOaaSQdOfzL3p50l94xGMf1g /CMdnv2gapBCvH6zbU4+ 7pdJkc1rioDQIysfP5CD1J0JQIB6j7i6jRtbSGWozBK9nX4CvUbyyh3Da5GHVYtNirsq/ auFr2svqIryKEpfsSh06omCUJ9K15rwzEf6mYdU/ i65Oc2rU8SCs12ptevvbmiKS4txDaEjcEcddRLYeKyB2Sb1RSQniJ4aRB4/ s4G2zcg0Oosa36ePooV3pTyu0432xwYiSYgcH4qjE9vjh36OzqOCxy8UwLjMMsY1f4un8qlWcUFOKGIV i5D +Nj8ILRneQFWdYvpT7Y1Tion9P2YgY3G6gnORiRDaeX+7dIiklWMkkojUKdiqG+ y7XAq3Edihc10ADD6rGRkrhxcDbSl8iLhBX1kan4uPKvEZMNxfsLgXcBMKb7W+ E6ytb8jBr6XYkiLTNVuP4i5gBKUMRwipmGXHkCZkCvFiEtlgv+/ XdSV42eVcmwQQYqvGHVo713c89ZfiUbI2ZIongFBqj5A7GbhxLkeSe9yHetW3xn6qimSbohD59dKk3eF k3KDSZQ7UzEPMuVUsOY75GRZsshQS8LlRJZkk41TwhYAijN5ANQQ9hT8gq8gQMnMGlunpI8Xb1FaxSCv GXOzll + h6B0smwhg9vs1BPaNEsI1vqlaYNomvezqFtLwZUQkR4jIGDF83ptnY5C91fOCpruQWpuS7tfJaX0lpac GD3NP0WMKyhUt87T6gN8yO +3qGyXDM6Jlookxx3N5Mm5gW+j4Gj0XYfeYEAJXu8lrJlfx8138/Xoz4+034f+P9IuGW51BP6+ BXJwZfQ1dakH4V12w4OgyphxV3gSiKkjZAi9QSWp9+ 8FIK0cRha95Cz6BXXkVQhMGMFrO3qnvy5TzMTJ2JjsfdnW1h4g6N8uBMU/lLsiW1rJoLD+ RUlCrbAIdtLMEvxAyCNG02QWd7P2nf6m8RifjaVNRFM7ea8M5ovOHerLfYIUmX8uTnwKVLN7tTrL6/ EH42z2pa8sCGiKj6fZU5gOXuj0U7m6cuD301ZsDjrqsOKd+ TZJWwlgfg7vIIrBSBSmaLqz7xGc7glSRyHYa4tnhsLL3SIEbkhsXSpgb5dDRM9PvjsZfdexooUW5XqcH k4biBmdGbwuzvKvpwL +XqSwcD3u2XhfeS7BYNvXiDMWB54UNpovwwYuUSKXReyElZ4SFzf0uoPNP9KvmZijB/ fScUPKNKPasSJEwuOzR2mVC8vTK2zBsHna7yk37Bs5e57gNYv6iFzRbstm5g9Md54M620eKg8eh6m+ J4E5fhu6lI47H5brdRG8xnrY69jXAL9qZATMfzRgPV6Se85xsvsVqsskq7tF1aqa6zOwTUOZgpf3OPMo wlAesNLwijD3bpefWKSC8CWc2NCYspuuc6acXcI7 +IZnV3Gd6E1hq8UhbteAPzQH7wkEsI3+NOqd0l99FZbU6r2mUX6L3zkIC63CW3ziCb6ETkJSfeuf4+ YKdDIMGnG5GR0+ iw6lqBt0T9ga2ujo1JOpg81p38P7A6Ph0vm0xtLSF7TyqWDyIgZr4CI5VnK5eS89u5MGrqEJc8l7fLv8 DMoQLi8wD7Dud0sPhrqRERO5SqqDYlZLZCwvnyadXMvK +0PHK9x+4Kh1ipGch2hGaTLjGFWlKK9MogmVDpXK4if1EdLZUXkLHdRc6lyFLHgaLqNSDl3ah6RkBV/ RQbGAICNQY0l2W7C4l9z6vFdJ4hYpYogiYefIPofAk481qZf0vl5LcSBkTgPU8mzsDLgk30403qk466t 7Oz + BmvnyOJWxJ9CU6I69ld5g55xvdbakwLKkFgbgO6pbaT5pSvDytScAJgtXTlyXbSExaUADowuf7eLhh3M /SGFx9XYkGt5n9s+oxRvLqF+flZmKusV6pEde6XZZWNJNL3zotLhztCeZ16Bn5I38Y589/ zNKFw09bMiKKaGnDyzuXpwIMjJOfbTpws4HjOqj3eI2GruZy8m8txw7PxoehBUWb4lbwRO0UJfYDTtwW qwGNeLvmh71Hmx97uOsarQ +vkVRxlbqZF19wlgKdL6UAaruuzxx67856d5+h+ otpl934NjpHRUm9OwBVBz3mH8kukOQRB3xiL9bmta2TlL5OwU89BLUvvaTfd4z2+Nejz+ ObEn4cx6ky4nyLFrPEUwYxlPkwg9l/NtYABIQNwLFizng/vf9Kpd4pnEG+3cqO4xSfV0awDb2jmZ/ u6AzbJE8mcCWcGhEKxeFJJSo90+ D9Bl7cPiOGAWVJApG3yvu5SVbhzQXlEVLVo4EgyHqRycOxeV3WphXadtYF5OEdindAeeIl2zg4u53eIi 55nPB +EbQw9kQjCVOX7YGV5cThrGrCaeiIiic825azdc7Mt/EFommxO/ ggeQZykFMPHDhXiEwoLlYvW2XVlRn57J9JDKN1SspUrfVnjWABJpBZtkTIfS8YCaBgavg2K5lA02CJA8 sPj8n4cWMs05Ea /yfjCKnpFVB0uIzNqR5oSbaItBSlAX2o6F/ OsAkY8xd17LDSaeizvRqvRmbfhyxmS2ZVpEyTf5nLO77HbKJel2gtT74605P7q1Yebmc7Huh1HW4Yt9P luNoEUVucHiaPUcmijdpocml13X5r8PT4nTQ6BV9YAEOTV0solGHHwiHuOi86FRESVbVqnwHGtQ1Lbni F9imnvSg5wentZE +TU+ BEuvQGWxkb0DpSxAOvfiqeWERwRPIYGeLpeGQIE0BzCziXEBFcncV2DzM7S2sO6V3PIsQ5uVjib23WYG yTOFYgycQJfSnRPOTAm7bCxUhGccWmG7 +Hy0pwx6r4rTHo/IhVWtYIQd4g0Dh+ iEasnYlmY58sU40eIU7Z7Z3iJJ74jr7ISA1gz4gRHHx5Ks0JIZBQRMsJ1zM5acJLu4xtJ/ 1OuCrjLwXuQxaqRGk5Hg4YdaLgrNb5cKO3ubQnbOeT7vVmibx7IPCd3xpWVqV5AzNFmFmt6NhvmvPybN AZUeGMKAMJnaTnsSoZTnuTjkmvR +NKUWrNXve9+ j77bDx9y94TMvJwFU5ToO1rjosoDp580fsZp5iblS1I1MyCTKaKLN7bbENJLGnD6MRleZbhut4Ykmv9x jWbtOFcaZwWxJr4A0y99wLD1lnk4eWvrXlsosBZCg / uzDKVFgRgGdqxsDW6ywneZ27VSmRBFKBJWTrATegLJTnhYyUJDmogg6e1D2C078ev6i1IrKDWyvwBYcR tcMWIz94xeeJ6ac0762kEld7e6qsJThKt /Vt462RQFZnwtKe8Qkb5Is7lhlNEmjsn0LDxZDSYYikWJQC9SoViJlDwku6HFLXTmL+ EstrVm6o0XvR6u6TjcgPke0WG5EHm3ClNuaQje1+dyPnCSztcIYNtWIEwcxiud0wjFjCx7lCQxpwK/ ljpuLZZyx5+NuRFMLvW49O075w2Zi9yieVwOGog/ 5xFmXhpSTC4QESRCjx6THeWAi2P7og1m1s22p9vlQgtJHNoufM+y3o5C4crxLvnm5w7C7orKPKrc/ EkcdveQq/bPxdqfBXMtW8O8bO4gRAOGKbGhH5jG5BIau+0t4V+ZzhIV8W3a8pukJZ0/ bV22xHbg0zsjHijRmTYGBMQwUnoRfkUteC6DGp/eraZDJckiAAIpJUAAkucDgYPDHBcn/ BHf41ud02ftHjZlStxcJKYfs2BONvY9KI9Tz7sW1at7FGXe02XEbNqAq261haCyqjo91C6MDO31GX0u3 EF73XTyDoUe7KHJtU9Q +t23Ldsp8jX+HTwA0u1H+Neiz4jurWQ9+92V2rthSSs/ei0vHDu8eAmqDVjxQLP61yC3tATXlM+ Xm1HiswAw+IFZOkHmsNsM2Y31Yjj92KCC0fLzIwa6TdVhbcOrAT3xeApmX7VLvGstO7NOX/ yUNbbf8vN7R84ADNlntdcNbJB5Yl24McdLMNRduq1XMsC/ohD2dPofAqMKP/LHKiV+Uvxh+JelX0+ stvCJM6V9+ 11g4n2XVu8zxgUDFRLxj1ynt4sO9aB2nleLYJOpwOJdFovTUXTQOe7NnYoz31WgivoOHXY36akt2Z1Jj 3UMae0fjxsO9 /ZRXBOIrSfSe3xNN8aol+0pnLzsHazW7Zq/SgKl4vn9bEdbuCaDYQNh9nciEcATDJ+ 7ESqqknavlqcHcwyxorqPCfwo+Ifp2rwbU1+WLi2up7yNpuvb0YCJDGq/ 9RDt1mFYjGmETXxpEBiBDjVMaDml5UwtbgD1lJ5S+dO8HSEYyMNKuqIMvr/ qrh0a7cj0zTG2XVEotYp4OZO9hFo3nVHPVVQbRZ8mTZac4jQfVfWcSJFeQCHYuqDcV9OpI3L11oJPU06 wDZTQVXUUzKyQBjXQcgDlLVRGlxQ9Cc88fqN9LpE1qkAMahdLrsgF8Pzn9KRrNFNTCr2Idgdol50Yfru +9eEv2g/G4TIQPEwA6Z20tNKjqerLx7LmQZKbDNK7MM/ UOeuSjGNWT53gr96gXlWSPuXg0u5FMjwCz3h2cla13A/ O7iV96HvkCyFs6enEqMnmn9jgVzfwv9DUg2VYok+ RXmjgJqQdtFbn7V5SJ2nQ74OUzHF0J3OOSuxG4FEns2h5H5Wwv1h/ B43u8x5knvetrsWrq7YS0SAlxFK7UTSyopZLVwj2FVnL1wl01Dc3Ddf5E2mTaLhQxifdpaI1Z39scfc4 I7NNPHC8a67jSK5lzpV75W61R9o +kPXCjkL2e7h5BMLbu23lgA8yO9ciRDDXzcEwOjdPpadmPxdKOqRF1FvPoa+ 7WREwKTjs8b5nRsjeVXX6rtYMmWrNaFQJsD1ggc8bXik1YwqnzbBqj5a3IkOdF0ffdgf1xiLqN0u63MR JhpbZrgh9jyWjfcmbVyoz71uODjxdPs0 /ppf0/ohuizaZqyaV0sikAVbqQHccmKVWXROCBTonAPU+bHXHykFgM/ nF83JcVftedwZsssjTS4UcibXOXn82WBcb6QiZQ6+TUFPRL0tymDNRZxPh0rKEfUVskd+ hn3lquec1o7xUx7cJ1ge/w2Xz/ UD3TrQGEtytvd1F0V3CPrr6Jh7TJAixHPJWeQ2ARkQ5wzExAJWPBxmwsBCgRhHjcTURKRxbMosw56vda 82nXIHDECZDvZ9NRgvtexGs9yseCa1cpJevZ8FsVl0Wf /Xsnd6O++ cy2TszFL26mekKCd200VVp31NMedJQBhlGYAMurenDl6XS9CMcOeOISgtPZrMnUqLckLw1sLWs3j3EJ7 Z4WisAHdCNtJZ36xiBDJRlH2jSqEFWzj8HZHcjJXELSLAJQYmCyU2FSh2996zf2nf +T1eUVDO2gp5bHlr/h/ bMGWslWVIB7x4bNjOO6duPBkbRhoLRAy98wCcxfuhaRymdRemj4bYN6dVQXlUiLbggo6DbKOPryM2h1W pVARZqtAPWoYyfJXNhnMxUODPaOIa7CLnQB +LmZYdb9Smi8snDb01+/MhI2gaIBcmM9znmjIz10/ EJiqqTOw51BN3muoEm1jMMks9RCMqSp54KPW8S2xsCZkcqNC7X4TGTyDd3ZB9BaiGQUonjoz1QshyUVn 9HHBDiNrtB2MHDAaWR +9WOtrJIN6yfGaMiIYf/jgWC8Ap83obf7+ cqtgZgeahR04z69ae0ig8UvpRFPHU8kLpLi6kibSSVQ9oyjSXQHXWfeLQfeyNAbfhh07xHlaitzYOZIE lbQEUCWDFRp5dfn7pfzLRCq +dpSkb4NL3uYG/KOolzFUCw6tEl346yvJA5BK1m+ynzGeywfrul21Ezsx/pB1c5OnC8L4o6B5E+ ZpsksVcwx9DTQSXpTIzEw0HGPJDLHezA6aHFq0063urQzIvAkWIsrLCGOTuVfRCs5CKPyTm+ yve1TPFJNCDGTdbrYJDzjMcembsZbfhc71e8kc/0tEeAcjxlq9VV+/ekEhg8NcxroBl4oX1ji4H5THJK +uz6X0hBusj7osXE+ vFl0naPugtSBOxARWV4rQmlM1bFJfYtBqM082sCIFMSFxOORbWiAWRrA7VYUJGJThrWKviwRStc3G7ga va7 /LFRuj1wvcq5WY77Ur+koghmNWxW9DKxYVnLXTgWSKe9kDGZ+ HkPSzpI8ZANvppfzoc5LsqHSY0XZX2wuuMYn84FpCCz1Qq3LMZjOzHUCLOfmYW+6Y0vSHUO2d+ BjucjSWita/AQxyz9g5usw3zD7KhJij3/pv8/WkyBduAwAyOOxzkZ+ oRaXcDLgeax5EBAK1wE2xiIS2RscA8+ PMixDnDWbFoJCb0hchAqZwJelXSSSIUD5SyN8vpnReIIcUPUObuxofwtp4UxgnBY2fj7cRbTok06I+ guuZQB5w/3TR6ZbaDQwZMr3SfGEYJMSXMEYah0VwLsLOqoFeEzW+ 7tlVbWxPKojHvVeH2ejPR9CED4LPEFIWAszygFUk+ lSg4geTT9mUpuiJJiGmUEhusdMEmttflYYrgHqLQN5jB8l5ir9/ktN/pFHYrLl1qTxhPkS+ lcou2OWBQiJ2WiDTHMOzf3d/cV2z0u1eDJDNHKtvfO+ VuEC2hBu0CCZyCfXjnwZON9vSc3uCoroUaRX86KIRsV+8liuLzdJTUT9daEhwctTgXAYUT+ LUIZ99IOPWOwjUwDeDmWM0pRc3Ti02q9xzv5a7V3a5r7/ v9klk1sUsonYgWTPCRLGXLHNtS6MJHYU8GHyZjDXtF+ 6FN9CuA3UboqCOjJ4moy7qpxemJ6kSMuizv7OMKXqxBqEFFINUYAkCRkw1NCXfe+ lWdIxakANVF7hdq6HlSo6ot87Oj791d/kGv3V0Dz/ RIJalPrwtzTOYGECocJBSevYdZaHxC6qQS5vHSlMwo8M7TXTDXS8MJF1HZrzKqyhgDDB60UfBkHIaFJx A /gzgkwUA4FZ7C2BjPwPbYVsVlQEc1B+ 9xNf2690pX5xum4VbrrF74Oq1VI148393lbzbaMN4na39nxUJ2M8qaDY1MeHodwnRmyDqr3fVKq9vfBz m43npiSVpTF0FL6HlSHKJxPxvqxXKVz8XRQUTM4ga69N8MBQo3mr /Ae6LLaoxQf5VUEcqekBzD/IAroJkjBZqDi1615COVVWyUuuADLhbIQZhxK0029r4h/m1LFqks/ xqdbs8g/ mfHit1gWJZKlAriIBEHXpyyAWOIcjmpzzOOzHTBBVkTrAVgf3DXGbYK99VcGk18LTw73L00L2EVgBUM7 sZPWHVG4cUawZA6x0fE4 /gccQbzY0AHBYZAXWMuhQWDGUNTikda3aEAI47e+ ykUxiNBXHkxtDayaQgjdmr9p4upjhfxpEHzqeK93yKMg+ U61v330C4coFWdl27AJWJbx1XYcW3DfyyRPVTXT0H69dHE8LL+ WdMGSDbbdUdjpArXATVLNVMzd7nXEbU40dBQVWUiub4NxgxlyOF6a+u/ uaRyB1Q41MmDKR15Kh878UzPC8g+Y5x0J+QuCyNEEz5OfwKnCspaJibbYOWGLDgpt5OKe4WC0aiFN+ StFKEBYIkAusbyVBdoCIsyZEEVFMtTAdKZVb3apY0sdoR2xu5hGyVCHf3r/MBt/ 3TjP2LVEJMlsUYqV5qdPd9wywHCQ5b5PZ30ot7u7LgIpI5IrsH2WxkLwYGuWApHHqHcngsji17IMpI2t n7Gavo706rMsvQBacStnClvxxCXfDCw7qwhVc6 /r0YioaRAgnsN9g+SnwsUzeLLDUEbeZ/I2ufink7b1giL0ZAYIYqcildRqJydDJF8qaYAPb/wCK/ Mm6uWfzLda3gr1EuGvuxuXuOUoKvYPlkAp6o6qPTLdGIsmEkwqXsAM569O4LqEy9ymY6hiySyhBWf+ wuShbYElO1d4DTzsOxCtjEoNz7ehwmD6aPqFTovoUVhtR6YD2JLslar9kzN9QBRtbREu94cdlxaKW9zM RppO /PzVZQjNatcseaTttZo+mfYarOpUGsJedKDYx2Z7BpT5fbKi719PTz5AnHn2UGeF4PP1x29h/aD+yrHO /vm3HaVypRI6bZ06ilx2G1oftPdecgHesCLT9rsxy+N/7SPwh+ YItU9gmD9Fv7uEWwXZm0F0ZXt0v971Rpip7XJQm42nQG7n5ftyzklgL97FW0QY4SOPIidu+Pbxh+ 6GehjH3Tn+ AzMf4puOcwbVgX0iDpHNnSBG8qSEmewdZL87C8PYOs9Pgh4GoZWvmPlS7NJrb1ulW6kh13o+ FMt2voPOX1OIixdooIVfqX13e61hxXzrVf95pt6YdbX+pbTdfjbpieOQwNZ9iLvuL4i+dj+ W2DBH7Cx0oSRlfJZrZmI6dt3thd3y29gZlW3jp4oU+ kuPmVogUd1NezVmEyXefpcDrHefrOwonr1CoOd3f+doLfdm2NZ5xTg4Poz2yvHp/ IZBdLlxs9oYPDpqZnPPwnTKMlrw30J5cypX3j57v4onNPajWgzfc4WUphRunJ0fKhEb7RP2tp0OJ5fym H +1j+0D+4N0k7F0Pn7r4dt3NqubZou2N9MXMcQeg/dFi549c8/ 2H9e6CHo4Fj4lM7xSi4fTOFSfqwrnrUATTL7/FPNGld3O2G8vFnD/iPcm/ 6rpDv1gYKsXr5y0np0Kh4keQNASgbS+gAKeIdjxYAD6pmiaLbzl+hnc6Fics5/RZ9pfXp1QqUmw+ Q47Avjf5Cry/gM5YKpv6DfcN0g6+np4P+DltHBOdqvImal7mrA2TgnP36zu6rhiA+SyPq4ODIZd/ LzsR6rLnLs5oKgZHhzB5pHWuo/CHNndrWi694SzE+n6bRj3uplSrCg2Pdj9s44Q1ke/9McK+ AWO0DTvp4EDqoHfXto0Hpa3f5CjjXMf2ePeyXTiUqkUKnVXcExjjMQNOyMuCykVkB72kkpH6lfRfF8/ wd4/01LrFYaFvSlA0XosL1ZHY8L2gL5Plgje6+H99Xj86n6qQldFCB6Eu3kk9SHpKgTPpZ81q1hnit/ MF8hpA0Nxb34U/ wUona6q59fzgqE9pAoXy6zEuiYaOeAa10N95v1ghRi441knM9vqrIdT5usegwIlydPQhmxvn+tr8e9X+ TkiH992+S6hQ4Jdp+WElm2m+ Jckp8t0QhEzatcre5jxdj7ChnqNePxg7bjzL0g9TUZSbm4bK5GV0pKQxOzMoVxunY17/aw/Sheree/ ijojq2rijbaCk2fC4lh5K3Siu9PMOYa7PLIkFn5UlDdbO4cqg6fmnbvGQE9MpgsF27UGdYKiYPl24JmL eDRxRpo0UX4enLyDR3l11z15XzNw /xfAXmvLpCZ49dkdcf+bS11KUJ2pRIytRbAWhp6WkU2sVNMngbjG8BNtraxojsbtACU0s/ XYFfEZsqs4tim79C4pYkqdin9ne8AXdRQGOl2a2sx3LJFBp+cFMA8w3sHc6yyOLKxI6o+0x2vn4N+ KALGxttJf89tQ8Xkyh+NemGNy8qZ03f1K5v9n0xKtAiJQ1IkTCO3Y1tl9+ PppQHLW6j02D1uyUsO0nNmGZQ5vWa6fti/z3+Aleksandr+OXSeiy2utcdO+H3RpVFFhoiDou7z+ h9pvmZ1pRR76V1zaRgjtP64pXSrIZupKgGrjcBrcNl47Mb0b8Vft20k8I7bjk0JQutBhF6QbiXtN3y/G /V/D9r47vs6lYu79ClyS3OfQ1ukZxv2zoO7CaO5e+L2jqm6y4e2Waqe4oZSoiEd6G4+ u1ZI1mfEjq23Hmr+AijpNLk6GC7slwKZjU8T9TzQH6swfoofedqL2ufoyMfvKuvtXsTtrzHzPrMj+ Xzd3waDPwkk1Lq0Sp5rcJc2PT1u+4dta2tlv77t5Sdx46yCWxwB/EHi/j7Qf1aKgy+ kQRhpQZ6ky2PWzxf2fh3KiO8ZSZIRlO3OuWcH47UobUeWUEdGJeWBBdtPp/HK8g1kCquTRCx/ Mkxl909B3b2vnhQdoRhPKgyaQ9WZE3hyQ501QMyiYCOVRuy+ LdA59pOF1dTGN4C2j7hqnm3V9TaUPNqjzBdYD0c4C8HCNfR4xA3q5ieaaphCDacjJTRQ0AP64flyex2Z o2ZUuE /BL8vs4U7Q2d33rJaoMuro5GNog5Y8W48zKjgQ+ NmI8NUtiQ3cd8i8uFt28j4GhBgCBixWD1IIEitH9jPBn9zo3hbJPlw5f1sl9cF6wi0B78k9dCtuEiKSf kES4UfJTlCCrfH97z0U7sj6b7Khz4rvX9veMk /CYF4/JUOqjTUUjhwEJbWS7099YlVsExioTaBGXcHGcMu977Dj4XdvRge1OdW/eTMQD4800Z+ JkG6Xm0mciajUJzutiae4qh+gtD/DA0dOmKbh5Ii6Fouikut6JqXS/AVXblJUlK8zaDeKgnS7jo843F/ ABU/4KI/AHS9S+VVnw1qsOlnLaWm/wCC/rdnY54hDmLvsE7D0MaBkTbH1ZWfy+ BC5va5Bd0xtULom5qokSW536OerbwM+eCaqg2dlfzY4vE1g/Odc1rBf/EvW/C/iD4ozy+ M75p96Kp4ElY/h/putj5zFL5q7ZXv7+o+DfD+tlAhdfMyYMSvGU0dRkoqzdnm4xDQIk15GT+Hv7N3i/ 4x/Er4l+YQ3kMWdY5opogUsq2OD1eplG3X/ImjP4XbaJlSg4bi/EO8+H/pA566Y04ZxSF8P8fhNhd8uU +BsM9bOZ1r09Gh7XBcyVWT6/ow+ mOlGCg5p2W6bbju5j6XfFFOZsyAoVI1vQeZjrkwv7pku68Ul9yrKJCwBlHRoFRzm3D9YQGwIbmxC7CbA FcRtSItNshpYbugtEHfjPAj2lBhKv1nJ230P0bhg +MP2RfG+e0Ok24eSb8ebUzxHPVPaBbkLamVDmWff/wzpmqrp+x3bArHt8rtDlwYG/ ZEge2MkFKN7Iz6Xc+1P7En/TR9cvRwQozlfII85u7/xVsSC35W7e+LJoXW0xaX2i5qvw29Z+I/ S0dE0vFOsDfzOdBchatMDdyPR9chs5sW8/X/AA8/s02in9thC+F+ x8Xogk3Y0Snmd11S4nXJ6cLf5Z4yMvG1p7EfLl8JnWUjiwAaDQnskJI1UrXR6tw4soVyUbC8ggs8kyLn oS1B4n5FCQlw4pBhJIsF7RpSxgsN2J5FoxR7C3psO0fu7nHG4qigh3x37K +FLji6Dpthi9j3EZxCwv0HZC5qxUTA46UTDhqPSdG1prO2vb/8oTW2NfQ+kp/EkkIS268wR5wCFh/ qwrkrxHKY8y9mQzF27AU2FvN3NP6gBSzxuZysi5wsKqhbHlYahW5JPknlrHF4j1/u1/pC+G/iF4I+M/ xXAOYPwUW4fSYl/oON7hLHvflIrmxczdsy4cpEq9V0aodn+ c1sBCSx9Zy9EMXQWEvyYTb4a4Hv76KlEzDuivp5wUJfHH30UcQsdpoBRvSpIeN8e6l6ML/MV+y1+1n4l /Zu+Gnwz+NvgPU/EvxE+EPedx4Qc/oA3Ci0lypmRF34Sh+/ 5uQeXbxzW2KVnJ86A2foEfTXyE2YX5mj9GH8qXbuJdZ5O204f9yzEsidmy5N2VaB2DSA/bXOna05T0b+ Cr5r/mGGzY3T35zNeodlr9fQrCyD37F1nIz2M1m30qbLyqciFo8yQjXYGdpTgbkkgHKiaJC36l+Ko4+ Cf94MYRzNc1Z2n8Mj3xR1B1gSF2yKXjIywOr0oWM9t5FeJVmhp63KUh2SulhAvAZeyLUaacAHH39vwKP mCh6RLz0NkpaRkgPJnyyou29RIcFy61RqBejXP4FBtIZyArE2IF92T9T0z0CEtzxkfAm7F1FFwkgdPHk SLG3M28r4tQJOQD3nwfiLDWyW4UFbMYlEYCFp5j8L 5VoxhMHil1wB4WRM7Wr0qppe82sKtcypAqzpn9vdr+b8RtL10XF51hoe+ qckANO7fMYksV63DkZ8WURsowT3t8Q8MmYTzbQTwYvIEWjcpBPVodOqLbNhkRjw+ cNcNfYUFRYSXgjuYJ1nsv130WY1skba672tPhLLD0oeEEqKqF8dLQEMMqAcaXbmZC1vteRu7O4si/ Qii23eq7mhIJbI04jHqR2qwA0n+NnRdaJfDBuZuRvEdjHZRbzzf9dMmCAYqVVbJHs5v6wTIHo6/ mFV6Q4vq4f1AfWKtYMjTaSfSSLANrABBz1Wtyc1yXlF/ hVIxyqzeneJeYo43zacfQyNdYdzErvGGibXvGwU1BBCWM5QA/ldI3cigNIr8GzutVjIgpfPSDMBS/ brcFdFvDwAKckLMVJixMsmNa7hhvUSRfJzkPE2gUE4b2plltV2FwlEm4NQULU16wlbpbajUBmAnHJOs2 KKM0FTPR5fUrlA7Q6UDFgPf4dZhPwrcM1Gqo8eMoTMMzBpnAAOIzHSfKhYqr9W7wkSdBptVzF59 /nWILPjNyty1aMLA/JzeaoZDkDoyac1Pq4YCMfgAafUV+ HqdiDaCVyppripw52zYiiwE2qOKWBE5i1O1SImixOiTgiAtmmgw6Ifuqph75Uz3z08Rw7Tv6a0DOCQqu +ZO1+948mFe7kBM6OqbxoXso2/KO1YAoSENZNfBzyWXPwX+YPWUSAf6O+ 7Pjmm9X2aKh9ARfIs4fFC3ZbBG+6x9JPDKCxtOT/ kMIg0fSYJVOhWXTViiQVO5AQty1bScpaDDWImXaId8CxHf9JzznpwgXwvHokcobT1gWBwLUmAmNs/ LJJLnbgsxJLDKrGndytFXSWrX+Zf2811ZpWPvU5MwkduhCjyuw4knGQ4ibuC5ekSrVA/ uEoq3nZnHNqiLEjYo3G9oFRdYog5n2IYVg0JB8nlNHRAcDW23c27w1IRwWcekmvZ3JK9U8JEoguygO3t hQ3kRdRchfIvCAbzyWfMtjoA62uORPLAv7uTYm7V5sjoOhg10onOu2wn8zxD66Iusaukw9NWdR2QRSrt waeybulp0 +6gfge4E2QPGG37t+9ik2l3iT+ c57dlcC1K6pVmhdI2kSEWk8mCZLIpYkbEKYOAhlnHpDLMU0OkiXetNmKH3ftEiBQRKwFCCA8a0uotZTj HGGEowVBLE /AcDK855wQ2y1D+ YNuKdAeJ6xcam38mDTAJrVU490GJJCFjn38ShBJGRbfufY3dTzJa4lCJMi4EaQRrFezWjH45TaK8GDNi vUKbOpINe4FPCU4R5igW3qWVv0Pd /OQrbmKNBSQ2PSvtXYw889J8yV9c40i+GLoSwzXF/WHL5jDLAMXicioN0WnOcYtS4STPUhe4gJrmg+ pMLZE4BkmSFSuuhauSSNaEgDv2cIog/xCRcXgCpp6S+Kb/ HWCF43GgMhrxXkcJA6wZeOYuH421IIkItc1m3pf0kACf+5+/7te6N6h3Cfc4shXRJSnZKkYFMAM2+ 0yaHwjblNDOKDiV4S1SUc6xk1nI2d74n+F+ cgd7EwjJTwMzflPDJB5T2l9kQzhTl405BgPmgozbp3egBua707sCQm1d2xmzjaQda/ vaB6hfIoBzv4Q1LklIHKJsv1CndQLtUxLBfJC3wPoMnLmuwhBVCDWOC1rGP7u1QxF2QqLtQ6i92K7O6a /OVXtKflmm1ljgNXJ4tmaCs0E+BGDg68zKoqpq5y80tYtr8Sa/3gdy2NZ5K+8oZjGuSrDwa/ DuX4jc9c61oxhS8p7HcaEqMT7i9SWzrJHRLIQ2spu9et0V9kx4Iz6333wbPG11y9a4DjryJhESaOugsP QxwDjc /wB+gmO4iye+uXwWo36d3yybM6XRvHKNn0mGWWeHFfeL3QKQJWyRD3yk2fR1oIzPiKoczVK4yVcC/ yFohxrAlRAszz1di+ vrji8sV7mmnXPQgEmK3Zh8Cf1z3hWaEtXweW3buotfjHDiBSxL1eHyhxzC9jHxwg9n5t9uFVx3nEr5M6 CewMUrujsJ8ol84Llvr11hEEhJcWnWjestHDhUPHiyu9RHjRdGkbEsKlwUZnn75LyWoOp4a5qLN3eVSW 0BzZUY6cW4kQqkLBBBYiURVScbxxb5 +H0N3ih1oGrJ/bSoJWrHTM9hJPRenhYPIyIITALAZEV3+l+ DaqSrgoaa7juGmmgX2a4pIXSCsBDXtVgpEhX6VvKKJlRLtsXkKpiCpwah4xZKedqaxGkbaCqTv0Z5Y/ OtvuMZbVI5jAes9/ a0wxH0w9nWz6mS50XTM0vBszqEcFDqHJsp4kdSlgIRp31AdnOuKkSunFSJtB15tIFNw+1QD8T+ Mt47f8K8ajeRKY954LmiU+ dUdVibF15wIIAuZXRXnJdidUf9okb60hy2IVeBinfOf15FcOgH7PBKsMLWF37tZ17l6ZdfOmT/ gVy0o5Rp86LnAc2TfAyyGClDXqAv4nGVrwYLKAfNQTLCwqKBxR3cjEoH24rwkjSYPmuaBL/ g7dTWFU8N8mYmqgfiJPeyy2hTzu2F32Q3E3a5rRs9g40W+Y9G8S+Z4CcnIxr3+ OtKNPbWoPJCRYi4Osa1ELRhySsyvpVb5gxCL8NQnWFCFltb2pRToIwAMqAjX7SZNEgFUQ0vQO43L44LE k8klc +K+ LoL2hzAzA0Ow3BYqLTNx2YTNjsaOJFA8b97BemcDii0GntZPFGZIuX0YuriR9rqCDphOvjlFHp6cmAZZ vBZTlSkbyE2qz1Qxzbw1 + 6t9U4CBM35HgwtSPFR8mnJY3L8X6FUyeC7KDJsxZtU55cj9ODtTR8nQPLUdME2xES961iemNOM0GPh0R F7vMKhcjMY0DbJ1FdxsxXmdutnZSfAwFHVpgkWJ /AIv9LmRld5nntBEAA9sDJPuUfI3NvUpDU+U/ HnwQQY7zsoio3Qh11Nr1TFbMXQ1zBwXeBdIfRuUDmjgIzHVT22F/ i8bwPfAeF28qioe4pdT35AINcWEE9qdjKNTLb8Y55PuQMpq0vyrq3Lk0k8dyv6ltN3FyKgwp0bNIeAQW odRMZGIQGJFOcB +KIQj8n7IWh4VBWpCFcYHaL8iwLBw+bt+ 1wKcsEsx03O7u5EfwDOI2m0j84BMSJut5CXRoamgFFlNZsUmmW8XMhO+YqDla+rbGxvfD+ f1YQw8tn31nEpgp3uYtzeXyaFq0v7Hrfj2EHJGaPBA7lFhWVKiki2Zc/XRaNdl1+64h8dfQaOSW/ X58aDzfAzzGty2hwl3a8tbK7u0YA1xG6pdhnAzSDx7K/FAAPUR7yzPtT+ LX5uZqHYJJSdcxIhWtoei8TmhEwpK2mGrii9Jdg54Ef3xLIvTjNXlH0eCVqLoRVotyVnNuCMg3U8FQek ePk3AEbGVdUnpzuqBSsxbgJHUbVjYhXqdBzvyZL5i3Y2DHa6GzOc +G7yRWVbnkaEbh1kH0SEH2PAuuiaIwu0a2x1wYaOm3bLdiq3qwIm8chfAn+Z5+Kx+ Pj2Z417hifZHKPX0preERECg69e8/Q/ Fjcc6TmdSon00eigPOCkFbBPxtNsfIrsRVTJuHRyKUUGMIwvZgkjbcp/ vQk1vR2udPG00PHGqI1MuLAziUcpzAZ7fcHkWC3lwrWi8btrynGFqYkiJ40+ S586bgo8dSkhXugonJixcvFYeTQJPHwIyyTMSlaInbV2bKGls1p7iLvF43tabSGIvXhYorKHZ7pdrBEh MNbnrY8JB8AYwT7aQFxTePteXVVTtgJ21ccq755W2TCvlqUbn9WPAhZ3hTxGO / 6saW45pmgjzd81a44wZwAjwkVjHx3FPzMJRZjJZ5Wgm5RBtYoMOIP2AVdXj8eaR5NfYkk4muiSso4u43 Nvh5O83HsN7wE6aKHLXgsNjAtYQbtROBmzeYOggY2Ozy7Og /eoSGpU3fkMjv8hJ9ZmzHdXjMmcWAB3aBO4AhNJ2B7f2k6Y/ DJOleaxv7BhDa8KIY6CVhQjJ1jpDCMi4SW64PkjEy/l/ yXOlHDYgentf8NFcpZwnreL7fmu3qo0WchViIZqYd9FuOCvEqCM7auZPprtqgNdgoUscUGGX5h3O6CA5 61M4T1T4H8bOxmfajuYGT /Bask4IbJS6EDEBqSQQgLqzxoKrqjoxDmBEi/DkbN8QU+B9f1C+ 7x8GRF9hP406Oaz59bjUDJS3LJfTnPeSClBs6KS/KRIBieL/ i7h4z18K27kZYkL7fquqiXcMUXP5kobV2oBVcGuEP2fKSjQNOHLb504/jh8R/ UVnMD6lb9ZwvtLjWOaSHB1cVXmuVndOFQcWVYZCbHIRCH5bNRDh7wG2mwLkVtfrRqm558PjMt7ntolK/ BttxwQhyeUu8dJQKudjbO0M+77zELtOxTzi6hcANx6q2t5FpH5f4caabeyJ+ C7Pkw60GgWpGuegwp4tqW75AFnqG+OvLtO68hkaBQnfo73Naw9X/4RUpl5Ue4rfNw/ w75W3IrhepVmCBLKHpWRAPp1N8nrZZsQbDdSnG7sMjnzk86B+XtWCQCB0s/ s6lZWHcMhe8OxyPJFpNtmonGGabPENuC3d4+ wOYd21lr8IANbL3z1z1PG23J2BWkmx7jB7xrWoWjQMguKDCodARRSEbOlDKLJMHvvTiCzHwQgV4wC39o /2lWGnYF3jRETOJuSJclMzXnVZe7M6OegXVE6u4or8148T0JddyJV+ rZUTgIIWn66gU4U8c9laqL18ewEbdjWyO4MTzMzMqKNUxJTi18KNiawWuF6z/ YYxx3ZTvJ3xuB0Mec65a1uMrwAMVZRXXVyxJWnweWgzDZtZxEzYSKp69+G/ gLlUcwtliDvUh17QsA1lZZD3hrpeNxG5kRkatQDoS6v8O7HQkN7bFWNvc1o0F/Caey0+ 2nmHZKhHmDoUl5dOZqmdQ3teZqFfd7B3biMnStako+MhSgXqX72uhUTvuExQRt6Tk681ic7/bzQ6FNrv /hcLKlhpRk+ QLfiBJvHKiRn98j9V3g0WTe5E0YPW28uguFGac0fS9QsJd4Ma0pxxcFZlbolzV8ITMcTSQ7ksOFx6a8l Awv3XZHsKhhXirujNSEcEPQ7RULUXoHgEZmDHpI0YnRbP3rRXT5nDCe3mBO0oUpp +NJ9yHSBiGhZErUPg64j9yq0yv8QuXLJwlUNJnvVsKupfzbNiOa0oH1WATxY+kYWjKhQpUm/ kcd73lCS947+ oswilsVTtZwmTmwNeBcRK5ha160866XTIv0d5dlggVsNmC9WT5HRXUsmsUuLBmILG8jaOQZNx53ijFMP RkwhY +0+ H83Dg00oZmqLM1lJ8HSQOeVjHpWVyEqzDysT4Gwc3wviTiwzJR5bud0X8uSQmAMu955glcH09nz1xDWO NNN3Qn7amof0LkjxfZDsXfWcQ54dkHv9n04QicmpDN4QAOcsk4mu7pu5kH681JbT0B1ktvErB8e99fw1 cF5Wkj4HiWBQRT3DNEkzdSMT 9SywG7Hl6praLVE9U7qDTmLCrN0eFonxE9AOtpLEvDUGCGT/ LHcmzYIPY9Z8p0TnsBGDvuqETjCCk7nK21ZfeIqdavdzZzsJ4+YiouvRoCLo6r3+2lyQayBNItmrE7/ umnBbePMQKY+HiYPeDfpZ2TFvCrMRn1IN0QvtdKOzv9Ho07Cqu0q52Pgw5r9RU/ KJ8SkYppAt1B9GSxglRYIDAuMyXEJXYAINlE4hwbONDNFQD1k/ evdumoOFYSjPjf4IoQsaJPXA6wiDxyeakFJPruUTHQFdZjjjOdXeiIA9jU5RIZRGPViXGXywh9OOviXR 7LlB7WQf /pX2mbU/Q0bCbzg+ GyBeSoveBtJTL3igQ7RBeBAeUVV4BocUXH4tznbOLvsXNV3uZxpH8fhodwT8wF7HakzxS9bYUL2TOQ4n +jsk+kkfc9Ol15d8mfYvssu1oKdfk2znlWxJhpvb4qdkyy4psL8vIahvzQ5UgAucrsW/ hI7aniinnZYwCgdt/uXdAzxCioh6vl2SCOc/cGDqUGA98akMfOr+ YVnt02BkWSGaXxGugVXtEOCGBod32lzLpP2i2fY+g3iMor2DXs5969tcl4+ 49mqr0kFn0iuJ2wkB9SYTzQbWgxY1OjN90kYx+ StUYKEJzowCvNVqsR77GUgHdgMOnieRhqJKiPYUJH5xuMAvelsczMgTdgl6Xul9XA6Nn2m0f01NA6bnG QNMfxzYI4hmt2HjWPut3daQpSQfanJU7oxzMTl2s9hmr1gi2 + pjx63x05xhgFYa2mmQyG8UNugdja8z0mKwnPMTTL1sfpOD8nQxtF89BXKETvDFVjZ4F75T9RyPc99b2t T4ZCg8hXXyoeUYH3aTEWAE1tOWUMchsqlASRoBLxbpg /3P/FohikG02g5MTZlliQuesIeBHwx+ wm9DXeC44X1NVo2UWdUvWJKD0hSBrnUN9EDIxsbHFPnCEYnGqzccdoBc73l9qHgAFxFe2ycuTUSMg7ry agnyCBvDMsWyf0Wzbwu33bOYRExs97U6XjilIFACoJCiEHxgAyUUhH1uhJx /RqtcFcADVEiPKQBajjsd1WwNdPJZFxflNZa4l2m6tIw69vm19J2wqLCuVSVUkMFopGeWbHivt+ n31dY7WXpa2L8rRE7D6nU0/VfwtazfmybElzsKUVsRkf2WaEhoGqCOif1Ls2hyFq7s+ JVfuxw3BgIkPaQUvMvBqY2qPaBaHZ2VBLRp80nZTsOHRckCg9KJk8G2PTH8BixnpqyJMY9TTNLjpcYjZ jkggGmXPw2E7RVBGTmloWSVNBMfIzRulIlRUAEN9Kn4U6CZ2kt6za8wrvq0lykGryV3xxA9HT1JHj +nU+dx3D+Gqa3bhyPvn9evscaavzvOcadrk5T+AfiVp/ sT1bJCK1ZR9anQHv6Z2m1UlLHaoAj13bk1PvYeNdjs3dX6KSbS7GGWGwD4CvadY50hxu5O1FON2/ PJ4Yv/TJO2P9JB/wDDerzW/gXgrlQ4zEQ8diP3gIfnUzwGFSe8LJFSOpRBfh5W+ Qy9SfpPuRmwDSPrXpBYB4Mtt5VpRVlM7n4eFQCWD+XRvo0XQur49hzw4mADgLXcW7wyE5Jzzcj+ vo719P6i61Ds8gjdLcpYPjTwScjk0ya8krkXyLx7xR28TLO+HApK2o5/ u1CLvBCzaNCTB8VE0a1KukQ0K5DRgzLG4pWANHye6gAi46A+ KRwmQHHwb0BU3HcEaEZkMWRrZqjR7XBTmAivXVVMLhMfCN4b4UCYCECVXuD4bMviHQBtpzIk0yhqDTNH r2Va +x4Riv2s49pAi7U8gKfepWE9GsgP0HDZ32Zqq2JFZ6YsWtYy03U2QisZYlgVCIeOy3PW7H7FZQI+ VrpyKzE0LUEElL5XMuDZHlgPJgMO6SG9DngRuTZRKLPEQ8EEb8ZGKfeSjjJGjtN0PpkIFxYInufK/ JBfD8VWV82jz593eYH6xhzrmfH1pv/J7NL5+MBsPPjMwr8WByBp8lPpM51y+ lZ4jRUBEBWmLAtIKnrt4TMFrX6DF828f0wU9aFB8JmXQa2Jjz73qlkKAYa82nJh99RhAgWsNerQWKL0L PsIds7Sda9SRdKxUzpL0y8zb5dC4xun +JbYJ04zq3/h91y/DvjSoCYKTP6o/ jH7zME52DnlbYipYuQA8llcPubkwU7XK0SDQkVKkfYs8Uc0MxOZuPJhwAl8mMpUHpwfrk9YfAGTdSVcA TYHXB6OMVbU9P6JPY5wyUyo4ioc1cjN545 /EAM4XDqtDFSyLi03yO/ Bs76xqxEgbsFxZckpsWQeKLrYGRdO57iVrELj5kbCFOYattFSXWduin000ZjRT7M8o/ rj1RM5aluxKueAEOICS3cLVXVn5R6tjckqbDiytiYU7bn9yfZx3c7FXPBKAjLCwz2ssVeqWe69Zvmosq 6 +QGCPlfK4VYWdMVQnV4nmqORZ86JSADz75aRMRTHaAa1E3rI1+ McipbAnyHlaYdbR95ziX7OHE0N8DMsCYItTmxT5fNt+H5cnng+oIyofIJyy5kJAwddybzh5+7e+ 2tpuenLEEs8vSwRYmu2MO/ ZeKXB064QgEXIwqoKC5luzTefHtI7EOBDAPJ4C7jnDzm1zgmcXqmVBKVbnmT011I5ReXml8ZMF6eK1sc eqvGTu8Lz9MF6ADZ6bQUWLDQJgPnSwnyJpmrgd8d0IA5rp01ixQ2qi3d5lf +Dh7ws5UyaOYkZneo9dWffMDaVYb1FDCsfF2qN2UVUYhhAmWF64BXZ0rjgJZwsFzDIB+ 3u5cGWf14RU9YB1VuWwfr1IggasUTY2YTqapm8wjgKM77Y3EQtiqS27+o81Ieu9zyzStlbls6qz+ uLHzEuLDnvtN8ThzY19cMqeTkXHWgYsy1SWzksjXojTTn0JUt1BStGOlE32NANfLtQFhXVLCN5T95HUO 1uY8JDxBtZ5fShfOO4BKo1HPAeiQJDJJxnue8tA2hm1qJPX5BQ66o591YcSSmj9s + zim1WP3ZpiuQPENAQHqQyftfG8ZPkCWEeCwbnCaS7e2j8g117QzU8xHObH5QyFtr0SXGgPBYg9CVPQMB vZYvNfOXWQKdbFhYue9RRSMUQuGrbD3UC0MSQWvjLBu578Y8KYF /N39p9GtPOv47z0LCLOdg8KjnUFexLI8+5DOSVXOF5UsfdgVYOtrWO6Xrg90VrPT4cZ80ZVE9C/ hvZ0hOaYRGPIZXWtzxtfFN7iubitv3YbepuRBtEkxT+ aB5GLUbS87K8bKBVoVSQTeb7f7H096aKtFLl1e0P9n67d7yp5e6mEmmxyjQwR45a031aBLxhvgR9O1Kv NZ61GYOILlbJr10V4WZsIIDpfSsFZnun6 +jtYpZk8mgeSeBDXWSPhZH9K5JKoriaouvNEg6jx92p2KKs7FHEXscnDY2N8Jg1z8g1/g489kiYb3+ yiw2RHl4goA88hap9mHiBIoDPXHIOR8AYGISsvJNqO2PpkBP+ Uzhk7dVQwxAI4YOAoIfXBIhXCF2i8U8pVjIERqYOgnC5uP4Wy+ bLm1DrxnxzmfEaGKfPUJluwa32ZXsatpXVftx6zW/XdX+IeW94kib+ rlnofq1mujYNiUpjVkfPkIkFLFlHBzKNuEbCjDIpqQsAt2W7dIRoT+ 8gnwYpxUAFYDauhyinCPMew8fXWxgRx2tB/ d6FpsiPpGoYfPLOnlgi0Mm6lBZLDYaeAzJl2u8oD94g2QQCr9/luad/8nZ+ w3yeBs249yi5qcQKOome8gcaDr5X9cnz0DRoMXU6uZtLoeeqccJUc4lR4dFjOLjYMNQerj93Jbg705eD WYaRhqsBHb9aT3RYX1ITtipjx2J2y4vYzUpBMWMSyh95r8vqXYimgYJbzVtgr3drJfP2 /j9RTpbFEms0lX4/ 2xC5pcaKA8vhmH9zPSBY8ytLwYklvLDIQJXHR6iQupiFNmB4gTb9G01fiX0CtpOOBeemvPQTu3B898kz MnTPD1ZLmds3z0084Q +Q4WDvZV7kuamvXnQZhD+WuLrbw5VPq+1WhlRVSNlZgVeVACr+ MhbINtcSITsNAzU8PmMGboWZL7tw0t0A4arG5XLOQla4dVKV5Ms3cLGPiAMO9dx1s0b9SQb36xm5Axoc j35klUYggrTSTtHytyx8YCLSe6l3gDPOO +LUSY0mO/HLjs5ngcpN0oedfAS2/7tM1YxnFrQwImMfXvjTGpx52BygBDpzHzyKz7slZ2N6u+ WAj0KcmErCdWoLkfBzlveuPnqI8zfuf2JXeB2hrJZcMuRmellgGvf7BZC/Nb45/mAfTiV245GJe/ vCCre3phWbkC6h020bc2mK7jlK5D2tOVbxee+LIB5pFzeBXYgKOSbsPb4/ U66oDkhpnHeLsmGiJePeLuARh77O499Fym1gcK/ oax8NpMN0oPS2qXogwa31PufRUHt72iSAaebJe3Wnr60NIC+Lzwk1G0mbvOE9+ O6Iv32ij77BzNSpnaAVZPoklS1JnVR3lyesx3di8JEQcY9xJcXTBENoKAmoy+Ovj/o3hqG+ d0d7a4tMuNo2jqgboPIcEuafSZDtffEDKio7hWCCCGoWblJnRcAe/i2/ bra87yOesUt0jp0dykfzNEL9I5fyddFhfHjff/XCOcGSrCWM7KZveQth9gNF1W7ktF/4h+ D90BP0jL7V1+r8g472XemOkB3hT0jKEORHMfIAcy8+0TulHHuNnoriklW0jf+ NK4WEugbE710jYmf83KcEDPtemifgjCHU9Lr75LhjKP5kg8QoXftWzh+ Ny5BaIHof8jMkEMazEGneYigPutaikrk8s2Z3mg4+6kGR6znXTkvdYLB8i51Aen8CoV/ 9od6ZaoWR3wqmplb1NGlSjmLXjKGPomR64TGn99LTKm0ZC8xf2zIDX8q2yXrUjn2FyZm0EppyktbfqBV vXCIehWR5uUxFWeKERXhhjfEh72v4S3GODLzZjh4MfsrZjQ4YmbwhuapuQnfBNAtVZfjh +beRRD9SsQqDankY8yZEPja0qNFtod5e/GaZx1FS+21utVJJie3HxAvHGNujeqQgtXvWniT8oBMf/ uJXcH0miyG76DZ+iPXhl+EgiJExGzG5axsfCu3IUIva1wWMDmkblyITqwEj+6Hw0+MUiE9kNFQY6SS+k +WlWUvrCom2j19vvoxBhUCj+Zk3QVp6mhg1ow4qsbj8rk3Zpxa030q7Fuq6+22S6o+ nlMcwOQg2uZw8F0H1ky7kcV/aOi+HwXflt8djC31+DvgrR/Bvjnwlc+OD4d8F/E3S/BnbunU1U/ WO7FF2wuCt1e0yn1E4DyHkMdsHbxvnWOjKDsnnj8r2Ro/tQu0adyWr1i/D/AOH/AMYvC/wK8Tx+ YcWLt7P2E+WFPNr8c3MjYKhtZdgJ07XkITCRe7I8/wBWsj/ xmbfSPX3z8OhFapX0iRiDI69pm9Pf0CgjeY5xujo+24c3fnRQ69TuNoiltxOPXnBS0S5iFudC9/ 8AEvhjXr+ bgpXbe9MoH7tnk3B7M6aqtcHkAcAn5gfhFleAnnpMsS018hU0yTL2nfUoQ4k4DHRjjtNn7L9p4hW9YLu Uz7Ri8B3cjdpsAR3lqY8FLtPjSkak6ZGvB7JXQSErbJijrWLhQMbZB6rgMc0n3F4efeqc6XAtk27uRMG kXx3ru1 +/tAg6UbzEbe2B+Gvgf4e/Vr79Nra3OfeV6Zx8C7D+H0x0EKlRGZBdEMX6/ VMQcTG8qHuODZLYwTvzkZyiEnx1VguPqD8/m6jktwO2tPxSoJ/ YD0gKwwnTIEk7ZErRf9lo0gelTnfUxEo/y2PAdIwBmgwYsN4xtjxTjfcx/LZEAR5I1vpik/ CviHwjHcPe+DEC1SMv+KWaalxADgyVoyFCgVmbjgsexnsh55cToygdEteOrEY0Jc1Zp8yJf24W/ dryNXOn6rNjU9E5Yd6Z1y7xRlV1LrezzpADNqoXCTgxCaAMnWyPRT9pC4KltO6NshstWf2qdoJL3B9oI 73J9smAEKp8LX5x4g8QixyAzrWfgKTjQfKtHq0XIrIliqmpswCYVQIXwRLihQ /pOEzGXDGExHto/CBXniRhAAbsfvWTsqBbKA8ytHinYpv7tx2zIcfKfGJc2AIwjTqw+cvgbV/ INk02BkF2NoJjNrmk2D9NN616A/B3d9LK3xz0rXtvpW+PuO9X8QnxjLdH7IMR3CgmBwq9vzS+ KaWy624E5gWq71o4Sm3KtSt2tb5ES63m1AB8pYzH9NbunXbAKGd2bwFXWG/uRpa3dwcbt/ 4C4i0czjfpfHhR0j+OXg/xF+ oy5c3UvDIP4zinGlou4bboAtDfhSqnTHk8xmz2Bbz7n43wZYvgFvlaolvowxRQEZliQLKdDWaS3lDV/ kVxiawpj2mxlt+ UCbG8uSUSr9kb7KBlijeG6eul6TxnDQhErSGHPAlIl3B6q9z6bUyKN12vrMBwHZUU3dXvqKXeRnB4uif OhLzmvuxr7DBLd7BDdhDzbUzoVlhCDOg /ZxhS69siXti243z3mHDhfDr8X/zgfAN18P/iEkO1jyJ4c813c+GeS46FFze65jXu2dFh9lojywe1Ofn /HJ3rLqUp/qdP3Ii2nqo6AdfDzgnHs94b8J3dz6F+YoKzs6j0lPmrfCCs2kPplht+ at3N7nYN2VGTrw53EZkm88p6f+Gtj4vs/HBaNXTe6Xv3x+nkEg0MN5U2dw94Rt3Fh5s/ opMLBdwWV5WEy9Q2bQBoPEPQtDKYwYR+FkHop5UbI8HcDoszoIYkTflX8lO8SwHHnSsi1+oS3m3Kd0EP +SrlDhW96TCdUkxXdE13WfaKVIhMtF85O7e5l2K3Til5+tXA0m+ OupdwwSSqJuGjh1r5Q3J50jmH9mZC4pReqnPqgc9pO2dvcYocnsDCZs3Zw42wIX1WgHr3l8oCfbll+ 1tN6Lx5y/tYidXDYirGNOnOFOHLKc+lmvC7iyJPKvJUo0uJ6BvZzU8yzmX+ TgMHWgEqv6Ft5cUiWtOx2HIEhXyMjhyPQWhVgvzDbYz7NKsVLzGYMO/021TXfh+k1+ ieLClIrGt697IyRdNPoOZO6I7w5nkYgXX90VsTTi6smggsSO6plac8rvEklk0D6a+EGgto0aY5I5K+ FTF5Q44UOCOqK+J/d1Pvp6XrnJSLy3uToJ8u19+RZgubFw0c1K1Eu+ FPgpPCY29tMemI9sqoD2cwGqirXm/H34P/ GDr1v7miqltOjW4k0L3g8KcVbRPkG26g3g572C8gsiTtMjwO8G0H79g9o674caK4V1jFf/ TE7vO7Y451by4NY7n4EkRQftElPkUTcOAj+SCD5q5C/WGitCvpYcdp6cU4T/ O4ePkkTbVxd0i7W0OwRIKUht4l0P5S+XgBPd1LwciJo2hAR3+zJOp+I6Mb9Quh3I5vzkAFy/h/ ZlFhD5y7qYN2EkINWKGc1fgOdKqSzJNd70QqH5mYDA9cIHyRGxj5M9ivA4aOmvCYrtD9pdabITHwEriA EhjsqSzr8JdIl8dBfiLzuiwKhr1JWY2KtPbc402UmmFsEJmzY2fO3JjM9o2zh1cu1qoqtkc /3WeqwgTKXm4cb5a96G1KuZhIvh2ROgF9+YTb5q8GtsuIheZNoMg4yuu2boO6eUaTAe0sWpam64d/ ij1Gaj8zDMver3RBue1XM+RFVluRuTGAK0ww1mUHUTnfmrY8ixvh3pbhiwc3k9da0nx+ 0c1o3vMKd4U7x5UfM68i9tK6gmVgBir5N4Evbp1XW9rtnFDssbu4kmnBVP1xv4KNB1FT8G0xlow+ bj2epnhF5T9bJkhd59vHx65OUo/6dq3yMqtAq/6f2uJ1G/4HJD17uwLtgejoao8S+ AcFxk47LgJcLm17T1+ZibJRq5z/NDPN4YaS0xnMfnV88G+IfEFj/lw3nqHLEh154mPs5m9xNbJvl8PJu /OufDlvOsZSAYl8hgT45B3c2543+ZoQzZzqj60NQ3rOUB0/ pVL0pBc8B7tBCiYCd7HNzi5d0XYeSQOFz89yeq8ByBm0tfOKLvJevlQzn9XWW9rM3qhuf+ OH7KJyo8vvPzBtcPz9wGQT1wThTfw1IZhA/i/4S/ OM8Fcw1UnvH45IFTR3boq4p5r9ss0VeNi2hkKVv9YscCacKnEnEQhWlEexZw2i4b4a4omcQBjxMMMRn4 4l0x7j +mOp2Kv7WDOCbCbQAhX0ICDp5jxvxCBAfYYaTCo9dTGGWD8wDPi+Q+PckHlzfr0kb8WfuQj/QvCvia+ lL+GdYfu6d5F56C+JawQQlHj8MzCLqjYOrSJOgw/QvEem+KwjgnSewoHShUpdgbdhcTYK8W1AmHxEl/ gtAbGdUWGtz1DOzkKTrPdXaRor+WoCr1pk+ 0B1NJxqDVwb7e0tej9d9e4xY2ByHafFX4NoJuPGxMkuE57RvzfEBfwzcOupxpTSJhBXAqCXhwjMspSNm ubXzYFuXB8pNrTz /jG3RyOHcxhDKhg9poq7XeXQYSU2bruDb8e5N/F/ uJbT0ICGMq9lmgdjmfEAp5Dew4GqTyHhiMHqKHmU0prRfTM9o5uzumMdH9Ni9G6pam3k43kfaOBqyqVD cfvH /vPY3e1MirOpC3Sub7/3JvoPao5I9Mlkq433g9EmY8l3wR3dCI2zP77gouiyGAsS/ kO3NA6H7lu9yqYy8qoZ6ogoge1e/S0iI6vv6U0xcDteFniJMhYmmg+IPDl/ NoayJ6uoSTsEwknEBNsYaoTOnqYGniHLA7lHnJVh4izheHtYUo+JFtOmv+G/lz1ibhhpYcoJ0CoKqg/c +Erin/f689bD3rcp3Wbj0hvwPOZd4oihmI9SlXxK/stO1bw/ hilMvgsVjo8DH3oDPUs0MrVCmuLlgtjKdWtJoCkyMCJTqtpJ9xV3kNoxzii+ EWrz3BtEwAwVd9dydKAaJtA7HZRjX8ybGTdjwuql1fKyelsZQVrxMU7fJpv/0o/bw0EZMfeT9UB+ SrN4dNd0TdXD1FO8if22aEakDWfw0rqnsdUaeMYRE2I1RB/ BY5V2r9atG72ffNJTN6ajYFkdy71WAve2F30SSSjP+J7RU9BB/AAUM+ AGso3um0toT3tgQwosovuqkut7Z0AX6gKdQvMMC1KC5FnAHouRR465PNOU02kHUT1RR7vBgKdwbWefog h /tr+X1ls2ObiG+B18U+ZmqsjmuPxeJChtcdhDK0r/azygeuytwec80kIZr6b9w9bN6u+ QZp6z72vBu9hnJ+ cWoltEPLXTzDMKJISLd2q1z6FvT7A59jOt5qC870b1Bc05TaEB86jyVFxmU6OYwPMMvIQrQmRozNgVlE ljsNTbfd4Vwc6HOpYPh9qeSsQMgi7WS4OMZeigPJ0qTQ1WdizA /DI0bMvf8wXidDQJJIJfWggLiyMONtnfxI9TUNijD7IiRusNZq5BNVpcIUCOSY6/ Fzb5hg1QaG6hDC6jSKVscOhASQKhxRRxycrud5qquoHagyw3rq7mi3yo+/AlxJ3KY861Py5B4G0ed+ l9VrfQ+ jpmGjrNKVOzqwOnEH4XHcxjwpaUB1x3UVBX58jUIX6V6hfHvzBvHEOqhnCORCg7KuyGgwOrwCNHPfit+ Puxi5MsZ+m6+9rHHdVm84HQnheT2nfC06dkKARtoytbWDVMMxBTULsw0r0cIg3xT/ wlmIEIN6o3C3HUQLJdLA7cJAOvStI4le27hgxCuEfuJBGbKa14qq8rxfatzaM09DlBUeylOHKjwDT8tB tufY8rxebggBg0 +Nuno+R9leL/ AWuRgDcrucK79SlFXufa0fVYHccEJkJLvBIg4xzxivdCWv6qYsr5TwUQoM1mZF5td0es2hYuxGkDjsUC qu5g0BAcSsaKGBgiil9Pqd7ggmxRquGT9n0dm9FySOBpcBdcHzHbZ0 +0CNcqnCSY7yMRAj08vHDgHjayIJGq1I3trXZQKyMAE0IlX4hrWTYSwcRsgV7jg+60+8+ MhuBapwY7IdPzmgT23885q0jTT4s5VixjMlYj2bt3ylZuHZrqKizmYzaiDCmAuPE8Qt4QOasHot2PbN6 HLnk7UICA4usxOGCvtFOhsWPruMPYUlh32SsfTWqqJJy7arRrkVoGiw3yEqXmCqqHW0f4sn3j2aU9gYi HRatBwziavfFeSqcv0T55ZtUWuFLUBX eweMJznXjCIHocnMOB1Yvd+T57nH4788PSDe5kNQE7X69+ rwP2cgxBw3siffZvyrlWJYIZJcKkmhBHxTBjCbWwH4VsDlKolxomWzTY+LfG2l+ Ovmq4m2GA0Z6CDIc6Nyhq3BTqjL1/ VvrNMcTBqvBFVjYgyXHuCxHWHlzJgjCjR3btiTLCEBxMzPow4lNDsMhPEP0bfCqsxmiRt0b0wK5xVjjS JrDy8hCAwEZGsHRrRIIzuvZhNEuNMh3bs2235N9 /GG7tfIAk3GVYVLbyRGrFvOX5dCPBubrpb+K2p20NHuP8gKQIORDngrmlv95qFE3zJF9rRJ7ueNPrJmp +I04Lbau7B2MAu1V8DK70fRfMcg2XKxEWK9hTZQqdSIyWlq3dfi+ bL2N0h0OgskhqwQjxGBacNNcsKNGhQkftbVDFTcS3fB8hM6N+GHhZfF+ qlGHWGzaVpkZ9iBe7MaU3bURyBBhIwfHxYKlvzs2RM7ij5FRxMqMshzbs5GerA29c1ub+ dBVtlEITjQoTM1G7JZRFYEILZ3PiHgTJ/ fog764l1UsRtey6hvVYFmOHUza3otwBBMisghlsEkpKbhhfJSxws9PE8fcbGNi/ 4E2bpEtIwnZxCOUHxjt1RTy8qwZGaT0twWc3z1gpRyr6tvF/JckHtEFIOVHRRnI/i5Pfr+ q3t76xTe4ahmtdLs97+S6lhEa/zN8BshIPm6BEkX3UCfKLaCdPjP5oIYzRzV2sas07+l6wU1sr654f+ WgbRFYJPYFxGW9c7TY6ro2plSXJjiZTerXgrkzvljB6lLS4oaoTdErZN279IsKrk+ 6lDStAlbyyf9AoT7m8nT+o3F2+q0fqLpQVqAsicbMj+YyxxqG2wA2zKAMbGbaGG1egJjuAjdMDMHLbg+ eeHo9phZn9DbawuN2YBor7foJnuDmOkuk1nn1rZkGee9XxUjAXA5n81ND+ KULBXqj2lpNZgMRwbGwvZX6o++bixUA4B09A9HKDXFzeiz1RFPdjtzxjU5JA6FzHB+d/h2RxftcZU+/ mNQa4ETLDsu+P2jEQEK4cCVqMrFlSyGW7/mYIF5W/0V/ L1pStS2DEp3EzdxngYLHuToYwhNvACTuRNOPRWVW1dpKaG8k7gfh6vrqiqduEeSF58JfzNvGubsLzpFX OBvsPQmh401dIv20V3g0 /Vcqvk9u3rFdDW5sWWTtoorxE8mVsAT0tjHfYuzCuhhFaw3IyJFce/hjmVho0G3RN+9o/ CGM2MXcht2UuLnPq1jCkPxwr8Ip7qMjKZ/fe39wtpaTaa9q2/yLKb+ ymorZHgebRC1uW7BmIwoxPYtIxNzPSQdcDrHnnakcHHxdY8qQKC44YbdcHbviACSKcadfXGvMFgL+ XrEBouz8I98lytNPwWuMmvCRUxcef47+ ZzBHNcJ9coGbvHn0H75rBISonxXfjhjivfTLbFhbsNwPhQlaUsHzvIuchjVDmhKw4xOVa01yiZtas62H 7eIwam0RGLeXMITYfF5hEtb3Q16 +28c5g58/lQM4BaxEYQV8dBqNKhPMxwjTSy9OFSThvpgucWLtA06CDdCuwF9kZjgk0+ qYN5chm9bHxI29wrmn1kkrA+BlyhEPjg2fKxEXaRGgG6q+Nb/ AFLbVmgqCkTzrV4fVKXUVtadQ4AjFq6cnJIrGxWJnYtbiG4VzduMu4nx07jMpsmo7+ xLL89xMkTxc4x9pdYLCV0QunwYXomm82taOpMpaheumR1QEfS6srSsfiQoq+ sAc0VRsXZjDa6akHVdH4gi5A96g4gkx07sEt89jZ02Bv8sO6ipZcVing3FJIgiLLdNTXI4QoJyPJNyYH d9S9UyKqUz5n7kJD4UsaoIloCTFbOaQaAhAxEniAYxREkBc1S1sBuanE4wFyAZxlAH5rZILUypRsZMNj c34X4Tl7wFdqrsKCmhK4hvUk8ttRVkBemSE8KEeZvJT1rr6IGBaplObjW4tTioiE5Pdbmyuwwx zE08RWxlB4smZE9rfvbj+++xdyti6W9Gx2yxFxs2Or+ uAk307Sk3qhm6tkIvbdOwmbb4h1DMntjYwV8gCyV/ uGbphb3VnpvZLutg7ruwJs3xuRVYRO5OlF5aDxrcqPbzitbl+PV4QbSd4vL7dYDATc7s+ 50CQDNpY7NODxJZKuTWySESwm39+ dEdf5cxAOMuZVDDBUIbPdh5hCbPHgKFbFFAH0kT51qpJIj4ceiF7qXtn+ oqb3yacn76bseKvuMMuitbFrT4/lW19/utY+ dcA6ZwOYw9Rk9AayCMGlTPM9u5wYnZ98AwXjcrqQhmGX1oTdhnUPzkQ6em+ DoEMfyLnfw7olvYIG8qJFEtcISXbWwYWwqrJMCvhSCGJHEANqh31Sxr6mU0zjp8WHk3zAgjnFgPwwy/ hQWiO3MZYqqgBokzG2Em5yXb7M47+9kCd4xkvhOzWfBNe0JCLoVRwrsySjXAy5XLV1MYxrGyXSo+V+ 6Xp+o39u8nzWuPZZLgvxkK7se19aC+ K5K21CSJk0cEPOx8KUxPOOQGgoySyhQVNDqTcUyhK70XDKTrNWZHF9Nb+ v8jnRL5t2rT7wJASExF8vsRiNiJD1J1ivUchqSLVT4ujSViBiabWJvyRShE45pwYVPDW4mhgT8I3BXuR 56XZglwvMaRfndeV4kpqDuyT7WKQHWkNwsyvTc5BTHeTcw7DK0UW62kGcIV6ra618ulwrA /ACS+06niTO4zlTjeqz5zK2NMyrqBA6Kp/l5VfpQtGbkGEDwmTtKH2ZtxxTOj5dvaQB+ 4nwIWhCvy3w5eY4/MG8rz8++AionjwEIZ6xVM6wWI8YuhZ7MJjGJvrZQJ9/ NyHJGHxp5JqdXXre1zT22iO0Dcilt/ holBescfiYycc7oZN9HJdytfIsDAoCGIYdKxMcAiJFY7A8W1b2aSVZp7/ qijrvficyP73VxcvIGLxNPChKXqip9zVix7r0Xk/fSojwPEm793Eo4tlD/ o3AF05nyyIHkgyJDX5u8S3ptn7OydPb9b52w5QKRBI/ RhqWzOFzPTyoIuz7xojfJrbwYHdXZPbpTWPfexYshxvmQoFb6Iv3Ly3XMpgX6wbR01V71s5yofzArZOA PAwtXLtOkadSPRY9WdG6VR1j8uLiA3ab /PJmCp9hbeYI2acMRJzlZMnelPlxHwv5TWcYt/ qYeS0GvGZvOMDIAi5eR8Akg4SyD2ykzKMVdgi960FSWvjx64n+C5itgHn7L45w9qF8lib6/ fv7HxkZYPy45zX2Q19d9mthH7+d2bdR4t1G5+ ypy67jKGUsHJAHcdWVaYvzLV0yUOsiXWQLNM6ddC1TA4MnSpkXgMGzQHlGRNxRpc54xTNppYfW2TpSas 5iMXYTSh7tjt97 //QZEu8ePL+rEGw2UJRbY0qJSuQhTF6KULZ9eWFpVWlY6KSOHhU0dvh3+ HeuuLLzb8oEndhyoT406IWTN9nyDQTcJqdFz+ ITkjFBgMfZzyIJood90pjzC946zds56fXDkSWnUbcPE93r+vdNWtpra/fozt/ ommvvd8Z5eQH6FMvakLS6Qd4UeuX6VsyjViGZW7nbSnkbvrQPX6zq2T0Op6WQPv6n6oGFQJTbw3J5GKm GZOMYY6h4omL9jvxundhR3gOLfxj7tsxmGZeh3o9goSMK1rqV0sWUOVLh2LPlY8eVGrjs6OowG2qdhF7 /gSg3UPTjaPwhA3/kYtci4kq452Ktbs3iXEhOkwP6QLzFjFNWaGjKKbIi3rn+r8u/ 2pjO4lB2IJRu5qn5apf69DwdI7xCmY9S031z3/SYw4bI4ANCaQ86T/ ZbLQqJCbuxLJWxiHgK63ScviL1p7MeZEvUJ1r/nI/ eEfe956b4OLPp14GoAz3jwv7Y2WUFudLQb6kKQCNJ5SLuTHwW3z2sYdc/ AzrtwsFCqBoguri6z91k9wFSG54XoxTAzIw9v12tma37CpefJEjoq05QoxXM76Y80mX3l1g9jAFw1Wck fgLHKOZ2FALLim5 + Pzy7RZHBOpunUEv8OATtodEZBoyhVTL8jgCYKKFvGhGSwo3uULm2n2TCz0LrzKh8d1xi8WsmBTrLab7n 31238bOyPyOzkcD1A /AGg/ Zg9g3oHzwv1XS2yGEEEWrfnxKPw2nnGaHDKdObLXyEC3XYakp9Z71j5yCiXbKG7FmyLQ2YL6aj69dYA1 dituIAUkmlKlvPmBKoVKxpJli6 / Tkzn0gcOUsHysaun1Aa336xU8ggTitTfn8pHT1oGNTpZXJnDPwsstfAltr9FiIDK9rldSjqUi6bxjloo XUaRKHqfr2vxxt85LeO8xfdgjZpeaHbkOjCQ2BdYMdpZWtagzT0En49mw4s +vTzaueE+Q2KxOibNcUow2qTYizLKUlCy2Kkpll2s6jIqawP+ 752cwfC4pwUzfww6G9n7KY3o33w4ir7hvuot214r7bQIVJ4w183ifAwUatuZ9iGObi9Lgqju8V1ioxNK NgYzvw5wV1 +agd37IGlg/6A5rrsg+3RtmS7dsGeL0l6KilElV5plJU2A+NvHWi+FdU8K/EnxNr+ tfy0uog5jv8hQuFxauau5mncgrTgKfQvwUj2ttzPeeAgVGV6ks+6+ VieYArNiQ4yVpArz88hkA4SBc79kzG8X7Lb79UfBCIyOFREUfkyTj2LJ1JyxSRmzxy4VdNn1aLDeyBdY DE4sh3lc8k0xqvhjXL1RA0UwejWa8oUZUwl6UMjDYg0RrthTy4ojdysmDY2PqaHp61L6k9aafV7g +wd0k1KejY3TV4cZkYCzaqZVhU4UWWV/PDWPF/izw58X/ INglSmeMGKa4hT9dVADg0zRbyxeqAyXvV8tPFtwQFV6vifaEluksO5NIpKGAW5/8V/ lQ5Ne10KRKEguRjHQente5fbjEvMzkqyAu8LRWvvNOrEZRzZxNnBh2zxc81CQuH/ qK5Zr6fuln3gLIC4Z7Uh19kA50/PpsEro7EArEkbmWmydM5NVt/ r2cw372yx3Zr9e09aVviQSzvEegenfywm3+ l8hodoxvj8616lT0A3N7xeMuGnJ8tJOKzIftvIdox8GPHosc21zJfm64ny+ bTk3xrs1O0Na7P97GrHB2e63lAolS8SVBVTvmubCMeRznWISBi7WDRFjIRsDC0CX8iXTzL23OH/ YLj97jQI7e205cJvfbkiBXg41uYYCzQNcaawiCyL1IPz2qhoEV905dyR1sDri7MIbYuxOEB1X7m6stHg 9JP / J1kl4ZRzFo09THLw6Ns0COJ6uPLPbwmVVAKOZ9eWoR258bRaKxJwGzqOoGgpdyhThzs0uWxK23aMGQkY LQbJMIFXoClnOaKs3ufJvvht4yJcn8XlOId2h72udmtpfkv1icJdsYfHPyDv2kaKT +te5Z6BHf9E875mmq4xes0O+SatvA7RaunvSBc8Jlmu2k1vJsDY/ 231kpcE0cXqDtJJcJNJ4fwpNWGiBz93+22u9J6tHvQY8rClzl5GOecXZNpM2/ uvz7ssju1baJbs95EP4DoBHPLJ0ACDwVkR+ aujclbXKbOmNpYtzXQR6VCUbmo1hQgTD8cDzJJtNCOXHqMEj/N/s4uz2v4BYIwZoe56Z8/ h42oq9p1b5WtW8GbLLET8KdpX4cfWIXhePELBh5jNsPZHsFbFKMmTNa7K2338E/ z17U3len8ly90BcCYal5EfeQNOoGKL6s1ccqlsrzPiMg1Kpk1idR5JPOtUTxmulYHmLkLtCIRL8pP35r MxklkdRtEsjxjmMgFSQ +P73cRgJmpWmlEcCqIriwxn+Is9oMYJ9ySRjDA+5pVy4AO/KPTHaC9lqyxjv0I2gkstvmX7s+/Ja+ bLp16bsAU2jAKzdiPB30p6151JCmKeTbkaTiyKuDzxgA1vTE8lhbqq4LRlJMmGFCQxXFV8/ LecOjGzlDgoLBkZHQP0yOJtR3XKnlo2iLSBYZeTLUqG88FdMXwr2JjmmYcNBOLmQCcqS1fEM1jma6XDc cvKdcthBxufzbpn51sC /qz6XIfiwc9Pn9t53xw+e6eeoI7ggj4wVF4RgJS87tB9JL59verIW1GHDhp5AdM/ koCLXhVXAfyXXYxRa97Cm0vtNyzgwqoTrfpFxKP7WDCGUoerxVTBPwPMIQVHPQsMe9G6YRqLAlyMT4X6 3CFPGebObvtFXvCnNVuWVDj3mf2dMh2u92wvlq7le9ry6B /jEW0B0hx0bS0eDnthrRq5jVX0625mC8XSJ+6azeOdHuwN7rf3aCZN/V6ELCW40SXHO/ rn3kLBX8fo7wXYgYcxOK5GnlTaNP5gcvFQoj4UJFH8XNOekvK0KzUAcUOPTZRT352k2qORRgrkQq9Nr+ gtk8lo0ar5ZLcgjGQnFKh1VE116u+ ooS9wT1LiRkMW3Lk3Jho3TfZ5HyWstOPoS3XPDdXpKKknpPPDyxOP+4vhf+ 2EWT70S3JdOTSEzKvfeORgfnlv0hFtL5VGhDiP8urTpzDeM+ sR1LC3WOVeasLlkxsfFWccnW4S5czdOFf5eoPOLTj/4aOkPTwnfBlviafq1Et2Zrbfm25b+ EtCUnXpJJShWs/dvZqEm+dKC9GfBsF8m1fjLZpDrBf/Z+jx4vQrQJs8xBlCiiw60z9P1/ANAPg/4v+H/ EDW8+o8oWQHFPTMedv2+CgGTALl4vSMU1wyMF93DlssUO45MATDUwT9kRAOzXGKGVBnogHH1QqkW6D/ PP7f3XAzm+ Btcsts5hdeNYWoSfD9l5Q6KLnSWPN1dG63Cdk5N6c9Vo607m8OzRqkJtHiSrRabkZwjgoMPDKedY06ON JSVP9NjlEo4Sf4o /AkbxUxG4bNaM5aTMyYlxdEwBvTq6oWl+Fx/WrH4RRfOthOWti+ 4bRvd9T90euRH4K6F0CgZLVLAyhjLYujDxkooSHKIC6C2gCa08PfnYpcFaDE4qzLXZWB0ZHGkGV5Rfok 3wF +1Z7K3m5KUlFpHwaOabVO1hKVrTwhtZZtDQ1+ MBxWLSh6w6gkawj8vguiUcLTFYkf7wUDo1JCZTtcfchQQ+ ISHF4LOaLytocNITI6yFQfjLwn1sb1ehM7VuMiQi95BVmWIfKGQ2i6Qj1lf+ Hn4qL0ycH0YtMAOWV4A7DDkkQBMzfaec4VJ6dGUsbOw0uDvzYUXEAi3XSVBs6ON0tMSRywIETIFmr1T2 cVt2eLEh3gWontnR7vM6N1zlEbZleKRIoU3iHDac0qUN4pXrxsqTfa0xbq3H2tn3 /wBDF2a+T/ 9ys9kiGi0XICXNu0PejTIbfPfWJ31UJ3bCSdCs4DgxQejR0EponyAsSfbNzBQWmMGAy3177cZHiYZ7lo XJ44Cdgl0qiqXHrABR7 /v7bZTxEYfzG7Ic9dPqOCARhPI0AQNUGEdah8LfdU+c136A8wrf8pm73m/ rhrd5d44M4zZWfzAQCZ72JHK57EuEIwQDOuZSVxb/ OHLyg1Oo9NeeA15ZSKIk8PzTGPIzxY1qdJwijr6Lox8ANqPJhKpv8YHj1Q7RcNWQl0FsOPeMIsNeEztf 1r3qvGZmBc +t/UGk0u/3emm/ a6128ppfKaZByhuAtnclIvkekd4hNnRjXTO8OTBDxV32f7tUoHKOb5f2EgARi1iGuviXNhE96853vtck SC8WPSsQ +4qbJhloJ6Rsjzz7daxuZxBOaTSm0WCXLkaN2uj+mendoza+8Yxpf1Mw9pqlYW73/ AvKMMLuvyoSMyvTdJwynDKUSdeFfcUuzPYSGnxH6dN88Zq1I+ 7yva0YvsEXZFYj6Avp4RPT13kGeu2xjkP00KZzb/cmGfucNsRTS9BIO5Uq2vngYCZ015XggIiZumig+ cezdG0l9kLxVbd18q6Pp2+IiIvBGbc4EDqGfb2dzuMFLilYgmWfPHliWWicurr/ ZqYrlto4rdebHUfcr7/ csPTGROWvopcTX727RpYHKDeZIhFQhq8KokkqBWicbsfDOFavoMQhf32bxgfqc12Nj3uBcyQ/ KHjured56XwUEUhmN1EKXgJY0hqSHeu3deQziBcVNnwWUDWJRQqokwZs7ABA4LnG0dTBt+ W2dsTl2B125lBxGZORAyBjSNgJBV0r7s5SvCWwrW6RnMkd9b2mh5+j7+PzP69gUbeJa78/NLW6d/ B2uKUfzSdaxsr+32Y5JAA18LpaOoRWNOz3ATgxWQujR1YtBM3A84/ wA2k3ditbTOlIlYdeu6pl0GTRgOAvJGSMn+qE5Y4AF6+vUZ5+ L9jqneg1v9D0124mo1AYfz1huWMW22OiqOt7+ 1eph62ZD8PGaPZEWPHHSGIvLpJFddXeDZymTX0d4W9GIIAm33lq5SboR9kSOI75K3fBT3LKCtaIVUVIi dRIb7eRbIk3qnfjjczTIES9n /8OUZbEPPEJ2L4VlbsOfnJAez46JVxau1Y/ OLd1Fiz8dQREArsGZ7dj083us7V9cfuvgUjXpwB5I3YxiebutwTAyEPcgzmGiFSRprWKLzgZkwEKDERu zenD5IsVCWSfmcqa3DQpYKNVvLUUhyfcSbSdr3 /pKI0oxJB8cqFA+VMLc3SxCxHgrXzn8vM1wgaJfj4fy/g7w2hk2f1C0I0Up41/ zv47KBMgLDCki6UEET8FHixZjqa1XxRpANuAwcRPlAP49YqLPQcWwaENw59BtbtGd7vX8KsVC8Ya4jqm v7N6RXQ6SV5xid7EMWr2EBXTOOoFaXn9MUFH9j83dkvxz7ncAGIE1e6m093447d1v4zF0zfljTQlChXO AAOGwOOpZvXjIOcqBXhPjeJhFiLL Cqt19mg4mzHp5t5Xoh12CTnNp/AqmdX0RHGOgKA1XaxBH64wdeRwZEFTwp/ay/aiTwTDrGi+F7KT+ yPEID3U58eFYFZH1bW1b/ cQHoAVaMAipornGzam85S8nqNIjir1fB6DS2b7nYxl4PLfag2jVEC6zNTVPpAtqhDLS8Sz1J7eVZpVTu L +m7F8qiBbPEgDYd3nyQSh0glIUUZOGtSKClXaX1wsmLdqkEerESM0tzPCm3h/2qdP+ W0EcSGLO1JchzHQ0Plxzlo0X6A1x3AF6oLfbKzUArtHS0195del/quNxHJ5nLNENTdbxn4x1fjbiyK+ GE6Cdr6ClcB/F6zJ4KmRoChPWFqJ5RxFA32hfeKIyrs8FSlFVACynE0eHCDvYkQvA2aU3F75yy+0T+ 0Ogz7t0Q3WsrCE5o516UzztdLIYXB4KwyVgZlvT/ uPSC8qX6gu6sN3Y20arpYH3ia8fVIbXaN4BcR6vWQ974GA1Q8qcR45ZSzmbVAURx1UwCy9KJ6kzVCSNj 9vkcGXf8sM6 +8bTjtU3wRFuEoIf7SWzxqTH1lF+9L+ ISj28qgccgH8bXZGnOjY3uL9zWl8lstVhpl3aw0iawCpDXXWxgzVaFtcJHEfRS69G7rx6Am/AEb+L/ 7bUc+ o0vi8x06Grbgi8G0X4l1Y4xT4PIvSLwaeY5vEEdI2jVY6vYYZ28gOIAjiBGV6bsk19m8C6IpAmyMkKSV HuODIsgkMLKMiHXkEVMzldgWgEu33ZZDb9yzlkxVb42bG2bbFMjcDtThvs8aDNiQTVJhcPBuPSgIoBNH wzg8A /Dyr19VcIt9o+FNN0CoFJ+FrTX/Eu6ioeOAGp9qxYEC/4T/pQ7golP40Mi8N/ D2nY4N1zt66M5SVr8NtiJEKe+ g4r6sjtG06q7yqnoeooBHE7rkTEteHdWvSS8MnAT0Ph669fcv0mdvOdDM0xCpSbHQ1HPoQZB5JDuu3ax Gyu9bZGEledillq82FraRLTcDfB4cv6i8zqCq0dBG + 4JIinTgdMnP6mY3F8XNs58Bzde1d9Atwb6Q5V0S0t0Uxde7tx6dKw6uwRj4Ja2JQWeVxVjwrpTPU9nQR vUMjvbJFQswUG1Z5vRmbamP21QVQ + PwOzpxflBwI7yj0GWmwz3pu8hftlcFmV1WvrApoYIkZcSc3TXBcNDy5ok6LeseevdGygbhoUTE6unMMR U31Y0IG3dEFOckez9ROEsyrZhJyPq6cQVkHiMqrFq3zefA5n7crT2d5Br86IvFk1iwea2aGJmwS26Oep t2934t2 +aukt9/ Ewn1ZsHgTbvHoDnn158PcBryCesjWPwTzvTIGHdNLygvke9eLSZEawkppXH9JkMKYa32v2kEMJpKfiZH NMVX26kiU1xb1 +ZGDyO5odPt2dzsGV3UlCujU7gTTqKWpmSIHuca3R9NJOSd+ qXr0ihKvanUChhtsfVzwo5K25kGFnlDnFGd/79HxbnKbqffdS1t9bKgGaZ5i/M4TCGd3biea0FqcpW+ oC7Z/SUqTCbLDkbYqEI0wSRMDybvHlUcBPW0SMzRRua48h8+vZJ2u+1/ HinvnsLxi0i8JjAyvh5wMHGorsJNjlqrvQ3C2kcS0gWrd+CkcawIfx3rub+MNQ+KspkPTP7Y+N/A+ o42kB32C2gWcqaDKY1NldSeK3LQhz3hQh4Lx5lf+ J5oRmI39T6fnIgsdrLCBpp4cEfyaPNXgndHbxi3laT+ rTqOnp2g3GkppVsTpeFC9q8iXaa8uAs5T5mmK30s1WgEgfsNLNuMHj/ iru2LyH2m6ajFsYN2eFMYA1r5sscEQZgRMK+QTI1xoAjlQqvV+Y/B+K/ zMpni7NtD7JIPhgFyUJCEXuHZ1kZfl17oCDVmNMCtxqZCDEK+5KpyvCiuqCYql9D/ jVcn6OyQVl9WoBlvRi5nK+BRq0xqfqE00ZRsScHO3H0U2EdHkPHWGaP0uiLKBEYsOBIJwczPMU8js3/r +t/BA7k3FmNMs/oWR85j8B9J6XvCAVMjNgIy+nb7dvryLa9iL/ EtPK5eaN465TvlmIide2rnOBFGH8cguz0Aq19WxvqC6Soln/ZXjuLU/ iWn55ljO1d2Fe6Vt1A4w3Lsx0C0eXQmE3G9V8o2+51PR/LJk536QckAwfJ50nbLkOzj26j0S5a4j/ hGoNKsvD/ibW/WjZTvkAaxhF1Zna7QRn5ROusn9YpkLYjss6rzTQpphixzmKs5dAEAdlMlPQw56+ QDoH5LJ/jJYeNLDSfA/yy1HZezItHg8+ PxGlwhC9q9J14E0ag3PrW0FG6Ae0otQK1Q8zAlWoVf1otfHk9d+X6J9TrLoF1csis0jcHycWkI3Dae+ acFDBKJtmfHneI2plvpli+tlc+swnlpHKelnILXTwQgNwczhEhpKZtM62PEfwFwc6csoKFwZfkRfI/sf +4g3TwS6pGM/AC03OhLXXKfdf1p+H9j4T+J/m6BAat2Ly8dHaBnxWeNyL3x1NM7W+ij1+ h6jL336ExeHkP6KsImjZHOoFziR9fKof6a/Z2+GNc9F2LdIbT8MvJ+ERmpBY0AwG0x5isIl/ bEGQzmbG89JS2u7A+XgP0D3RsZx5F2182xcgN4A243fRQnfFoojOS5um971wYj4D9W6/ sh15c9LHSbQaV+xjaeO/oin1oqHz7z1C6Q+J+i+CNGj95ZtG5RmzqgD0E4bn+kiy7g8FvGUPdr/ C1UdmJ7pd5BXwa9hnkNM54B0k5VKL+PrxtIvtX/mS/Yt+Ft7hrzl9Z+D/F+ vMpbUFQ6IFg7U3MZFq843UGpTq+lfLcPftXWyt28xfBdR46vAYhpDEK5fJhv6m1eLs5Visi9UY+ 0JVcHU+ pP0AwqrWvfgZtylfBpoPsQqdLmOEZCA43kQFrS2CJ1qKc5YlUBpgbZOfuvWgiUP8xENpVMjFvjKp5d8S 9JGa2g3ZLUBSVSxSz5HT +6R3WT8JUUyUdb/s40szu4JAxm3Q00jr+J/UNabR4PrGs/ hlUYLV1ehkx2V5BwglV45o2Dnqe6bzs0xtTj2U9rpfoyeExVi7NMMHdyFKg8jJ7r+K/8AwS9+H37Pms/ B6+x9vlx7o/NYsP4MyPI/S7d6tvNi4s3BP98YEL/7E0u3M+u42Dktubp2btNo+Jdcic+ YiMpQahlUZp9J+Ef7OYh+LHh/GJVilJ6yV+ZLjpJEdD3Cl03E09wRzp+ 38gJ0mE4f3c9KjsFubr01abV9rzVrLh+ obRXiKmL6G7XcO4cvUtFxL4TkB5RhY3nVXairLpeo5uwtQ8hw9q6rTbUH1y7xFkQd7sz+ UFXnya5GzJrDLks5bl0zDyQumaS7y3gTnc3OlOloctNnUh9SdL7afjCgL4avzBjgrMWgplxmmlPsZaLQ 0uSoMFmoroFfxI0iJtXbyQZNtUUpMAu7cKHypTzWQLJhyIjVhVv13CFXIsCAfTZWpYXJ4oV3Zoc0bJQs F91PL7qe6Jxhf +kK4ETXo8958Z+CnmCxmogIHqTMjoQpgotH1tDKcBYjH0d5fUXAr0hb9vaW/cVnJ4DtS0/ HufIhm513u8t24mNPe6r7o45x91Kq6J+Ns4B0TTfSoOZmuL/cMPpw7PW5O/l0+ DLtCthKoeMj89Ic4KHp6+rcUEt3iZuYe018ZcRP5PyYnbWMhFGPre+ ZaiYvT46a0SgNpRhw3uxPisfKthVdmBl5cooHcbUz50cH28TA4BpVTxw7DfLgKQw3AkMP0q/ H324csolL2JloOwti9WZ6Kb1+yvlOaS30tMaQbxoUWPpuc8rzpp0vODzgA8bdnl8+ R23gF9V9vgsit7eqrx3wL+ X3D63Ymyr61fnqUaUnzQEue82iDyy4aGVuygPmVveWANRUkXXa7tJqcfbPmWsBTintzZ1nr25dqS9MrY OL5l7r +Gvjl/wTn+A+r/ Jwv1waegMyL9LQ3in3hb7033CtSJBosuQI8Bb3b37xjtGmaQeD8c8tVXY3dt7GchCuizmKIanyuyRRP0 d1hoQhcZ +lT7MSYlx5XHh59ulxrruX6t10Lzc7PgR+uz84e6HGd+b5kIcMO/mOPl6mrzEWfoeJPA1+ c5uZejLQEJBG7g+T1/6EaQ3qN/T7sDq5QfOBEJQppWnO0HSjX+lhKb8voC8f+uL4/ qLjtI5daJCbJvzOflOhbEFYbH9ureezT48b9iR2is29/BDBa/kT8StT+Kdy6gb8sz/ kSrk292s8WjtoFbq0xf/zYVb2oF1bCYFHPBCwxZqrMiEQ1rKQ/ lZzxZpvNzSEj32KsqA9PYBcRLXXedt1TcI2iXLaJpzFcJU8dmcfTFVIussFYZ/Q0klIg18u+ HWkKRpYImapdHpu8YgTd97IPbzhWpusmgV32RNnNeeDYIDGODg9HT6Wv79SxcC1a4JuM/ PEaAt2KTdtjp7G/kHFj3AHVgGTEKwG1cE97nDXWzFJO54uv1rvLwHeYVj3w1nQQwK1n+ 9MjSf00ILSR7fbxJc+Gs7m5p5H/G+ fpbJ4DUVqnxp9gl4XjXdrsG3dEgPjgXy7vtFSFdpowsN1qLtHdNrK3uSwQ5/U/D+ kVHrD3bM1rQH9qy5MxsUVs5qFez8r+PVgf7TAAuwk6q/ PjPhZtfn35pj34L1NcPczlPs13M0vLo6ItGeAArk6Sv/wcngC8M7aejepeHN/sHiSwluNI1/B4J6Vm0/ aq+RQuf7OUUbCUFipBbC4RaE/qEbT9m239ipPub8M9Q83qITM+GImQxh25Lhbtrcm/ L7e91IqVUGOuud9Qh2za+wy+AzTli5tf6wm8bFUSdWZzELZ+ Eo1xhHAyj6qChKxgf4uRo9LEVvhDt7380VPWGc3gjXweWeNswWfpHE20j4wBZcKkQy90F4aC/ eesdkCeZ3W68Iz9/9WorOzKpmkUru1g+EdvJvtAP6dLPot0nOi93f1iWTwR9t/ 5F7eo0Rl42Z2t26bto7vyXzXxV3S5MxIRALjRuGU1zn02QWOKyVtA5LE2I4TwxZe1gj9/ zTW78khdcgXyYftLFHNdtyvAqYZjXbD5d6ACuU2tFew4YD+IuY5wbwFuDvg8i6ukdduhk4e3h4Kv+Quan +HVxoXjq++IXgTww1/jHxuhbt4ck0zo2I/wm+ hytprcjV482VG8sqRgVTqGewoDqiylNh0Ufw0Jp5tBznz+XHqHprn4T1yybdH2W7DDjC7d26Onnz7z8J +Y7IbuWdjAX0lv558ivICNS8CV6IKo/i7rO9m0U+ MNY2KBvkXFsloje4F3B09gxAGdZFk4sHSjmYPbOMhcU8n67gdz4BIikud/ pMLrY2ePLkPKSEmGf7rkFvQpZfmlI9X8SIAj7S7YHj0UsDpDlAlRKMwyZhka/ XYWqGteBIMxT5LArnZ037TS9eLra7Vtj1DmfOs7JIMEmyzY1p4BjMvcpCWj1Qer34Fm2aNwGYI6pT0kG K /Qz/gnr+3L6FP9Z/xm6MwEkyxOAY1m4A+ V6Ub9OsSlycwLNTnSC2PMCPxv1wF6bh5eUa2TQiXclYFHxcsJ4DyzoUkgQfNmg4SVj7pkWi6u3C/ T2iS4cl1Bp17pgi+cuRcrQPG4OvLKJjIOxRF8WXz8IupRHoefox0IPhjewH6+ KDum3egsFgGrF4fdxzLWp0BE5iz2H75bYquvJ3kFygB6UvR0K1hsxR14GqLD+0pGSFu0Tk2M1gxNF+ RSp2GiZ2cmIpVmvMGf3dp+9prkqdqMcGqPQe69eA73TgiKLW01fksDDo+LUuaOIdLEuNRwkoYjDV/ u5EkKs1RvL137x96PPUkr2m3FH9+F/iD1P2FJpUokK2EbNPwoBkz3v+ ahuV3N4xOyAlnwkKHPSzhpZUk5tdmF6w7xA75GGw5L2Sooia3t0p+ uaG3tc7NRWsdWPuf2DnpI8TozUCwslsfZe4RRvdzv/hT/AGSP21/NHlkwO4T1SyyvU6o/YKZ4Q7cy+M/ ij8aOBaVb0gqdGEhErfUHLB8hvi6Seus1KOXoF8x1G0+rQXdrdQXetpL/AGk/Br41/T37kWnDF+ XtzrqsVfeHItuK9y4OJ3KL/CT+ E3PyA0FjFiHDyR6jXC3ucp1nCY1EaP3ExlwPv7qcvrv4t1OxNp3satkGO68K36ybkaaIUNgdj9L97u5r 9l0tbJyuXIK3bpwfNJxEXJevm5 /yJvyEgoNyh8rtvhlUImorH6i/D3vM/ ISd0q1h3xICJ1mkyaeBnb5SKPIxZ72PkADohp4v3vuIgLeiNyG66R8N/ Qh28XC9zbY5dQYMBTYuTlEwDkudBmUl6iAQuB0Z4Xf6P+O9djks/sjxhYIj+3KrQ8OblMrmDY+ QDGCv8BgjF548FKgcem8AngZ5JBGc4Z5FfvgPs44W6rDE89siTq0If98Wb/B0rCl8jb4ea1u/Tyler+ nlme4/LcUCXdIHSL46gm2767szSSs3F88S25zj/d90UoW4g5Gr29k7p7q/Mv+hHQWJC6nDb/ fWrbJIPvt2nkliI8DurQqT7vV4oIf6bFqZ3zG7bFe6OHckv0G4jjypUG4ngAeX2TQfBOFsLVt+ FsS9kqb6tc8zn70zziVPwhu5ULEWUNBF4+Ew1bOjNkzAHzmc4p4opjrPDQyLYrOv+ DVbGhsjlLr6NmfBuAawKYyOm3TH5pJy5Iwaicbdthl2cemeQFtUFxe7q3oAivuO7THu2rHAc6X20XUf8 6A6mJ7bfyTseJqh3LKAQFYP3XvyyqwE3DTx44g4JIIo +EqPOIrJ4lIfwF0Lv+JmH1Rp7RIATieH9XjK1an+ RwSaIacht5c9dxBot4nJxxQeM4T27q3fBxvSSvNJRVP62WQSwlL7xjbhhOQkJj5ztM0rPmXAHa5ndspW uZycNZKSMA95JVyK88nDQ7AmUsRoGBTxNir7 /8T7aaNkUvthER7DVX1sWC6dgf9UyoL4vwmhV+ROK7hL2E5s/ VrkSnBg36AWn0egMdspOEtNWUzsebZnXPHJP8PUfJwePbz1z20ndN672CQ48fUqSKcG7qSMgCGdwqGl0 B +KS7YLyYHBZ9JH4Q+OfeigVQGO4sXyoYWsjAIIliQE+ Khjn9y0KpmHCb2PpuoIwobhqlRxfPm7xb9XAYyAB+ MdjkcLfzoCrG26Dbe9UZpQEf64xu4hn196mHaJtrpcM8KwsRBlBlb77xlcDi+riiTKAPgBWlA7CAXJId +mdsrajurpA6sQzRM1GrZMXABn0LF91U7fcQ6YDsvlsh/ DjQeL3X4vzmpK8Qdll7BJDTQCxX6DcW5zSHUHJBa5DbjqZPrpIQvD1iK8enep0PjEyM2IEvYP/ AxO6xne4Rycn1hHboDMibEjqVVMAa8naZReb9dAVQmJsodHi7oRlDttf04xh35gX973xtdpyU16XvIfW 0qNFLDg61O1X9quer2AI9OCbb8b2drqLqWBSVnGErOOvZSwuz8oU + PeyVuGaqq0s2U7IbIm7fRpvjgrFszf7UquJoJacDWnBHqJJLWh0Y8Nu38OHyYxwX7isavejbXuiMxg3Y 3gUNuHzsDkLg /YuI8vND0B5QX7SkxnqTsgHgTPaqHxQYMPfne01RQnJYG1EAZz5yIyCdsQAUUZdHbUoZHp8/N/ 1sfqXDmT+zrznCDppqLXKtJaNWX+GN7W/tgatA0P3H0him9x+ lofFZfhOBrtWtpNyXgp3iVoqRqyffluRhsVHuLe0k8kvWxenkLVGlP39qocpXdE1WNV93WDdLXXTNSYa QUju2nO9chqBpcTzlyRyikhPFZbNJjZ07NR5lF4XmNBDDTr79b0dBAdMZrvYyVyp3rB3bQeQW32UgEsh 0WXcsXUkBWSJqMjFbnyGs4p3Bsoryrd3lx8goZsc +h+v3ahDpQ03mfTwR9U2xDfto6xscK/Mx/HfxOu/M33O4p2Z4zx6k8YJL1NRRihynbq/ xAlfXybjaasJeZwXZlfD6aaZzH86ybbPWC4XgABuA2TG+/hnUxXIzQl3ZoeHmY6bCNRKxCSguMd+ TLQqNqkikV5wIfDApNJxcUZxQegXNpS4eKqXfS1ychE7T3mzhf1/ Xgp9U3sbLmpCcIazMFS6iRpkJcKWPH4O0IjL1OUVUyR7EgoheCqvbr84wpkMzc4627x8o4vI56yLISis tyCzRb5k669U9bW /YZ60hP6n0So9qKnUbiihOxJXX3gKuisUstbnXJRQvm2HYLr6DuC0+a+ KEckvTmYllZf5LvphmGKeCtaKXUOX0ZItlhq6QrU0Cx6a072QgN4oQh0ioprAVgKO7xIm563WQIbNcGP EA /P8AMa+avGnjO+ v7ZaRijU5aHhIBGTBlkHcOFC3VdF8nRpHlfsEm8niNAgqJ89TtL9y0besmu3VwIyn7gOUxLe643Z9fgD UscIv7Erai2t4pzObBj7TvzLGaL2Lg2LCJs1Aq2zjFWsdVelmAceHAgI7ZmI5PzupJheTCjpkITuHl7e wf7gS713T2RBG27W56kuOiInUmntaK NnoxON0BG6YDFR9h4QTZHKSTiYU8T0CTqdZ/ nREt2orinT5CwAYtwZQEz9XJRcz9CLRzhv560JWvg0VLF4ysjG4Wpjn090Yn74z6mrgAwTv1siiwbepy F5d3alfh8fyNAaMTm6YccQ7sAEmbEBhS9aKZUQjFFmfJ6szwtoZG3ZASYKGL289PwJaESS9ogu2AwSEg ByeV 4VyhAZsXqTE0uTqc2evBcuDeB0CfNckE3saDP7NpJYtDLzmQJDjueHBhTRqR/ td8P1zmSBkerc9yoPBMR7gFKqVlGjcDBYoQMxLBOyphopq+myMo6seOYasa/wCBpe+ x553WalIw07qwsAp2cBJ15vpO9d+vwe40gsiUpGSwCyAdH6wr9O29In39F0fJdEBT+ DXnhL4tvyYuoaoeLPcmYKjbCbdnObpgX7hxjFUVLTLSd8IyoMAT/o4gYUtLBNMVpR31R0jopW7/ UgZ7QMtUNqgOgmhUFOlY8/EZfibH7lYhnZobPfVLwWe5ls9FF46CDlLdwmMRyKpEPDRstSy7/ VMAHheAH5kd+ OJCRzO10gnjukiNVQnfZbh36pr2xsJVPTsHChwTSyQLeaiFy3dPxu2f490q8izak5aTrA7UxqIYXm1wF 61OyHcxMCZmblPrKqIXZYWOwFn1O +CUaVrTDsJ5XlgUg8uXXWgWQ8FOkFSOQMJDBDGCQJCjVHRDplvtaZ6UvAapKnJfto6/ UJFoEFmrA83S5rDiXGhn9NJAmuBfGTpkJ/NKB6noWjlcPC/eNy88c1cpxonVR0kmkEZ/ 8ObgJUJcPV7G5Rt50tSTAtyIhPOO38ixlh7fri19cssu2i7fjWMv28aiutb0tLpyx/ Bwj5A5G7q3DlKXhYcbL2AtiQaQQx695wEsT2a9CKqxKGfkURCW1P3BJGhPI5RjS8e68Rdx8g8B8Bsj7o 2d /cGyrog3sy4mcPlTzuTqtHFlAmBpfHwOZDPKJ+HUEo9mLUKPaqHfa9/ 78ihusg7SKd7hsif4vXq4Zy3EtpxMQIRZQ3LS8fBTXs1DsJfrmyCeuaDXJenGhUxon/ x0SPuqEAgQSmaQQixoqZ91bg8pOmadJluGcIRqeJzxsQkt9XsmLPMSBv42zA4zQVvGyE1mV+ Q5fTQiogcwv+xLq232seugtKOv4H5fg9Ldx1Yep9rRGjQ89zqXh0Koad7QJ1cL9A7LWlC0KVB3Pmuc+ QjabutbvE8KzkKXn13yKNicFY6GiSBZQiiZcQtYS33aqAwjPESkY+vfX8PjMOdFs8qPIc0mRH+ 47bET9MKn5VenUcWpnaZXxTCQeFONrZsNk0D8M8B0ncB0bcDTbC0yw7K7AxCmplnqVOmoxdevJvQA6Bg zCbJvIBI1WOAW5 +W+sfgesc7w2MhFBLAn6XGtNx7I5cp7pn2G1cB7ruD/ GHn46R1h7zmqfHSdTiAwb9q5wzIALKsobPJkd0TbzIHRnupCEfnNdzU0s4zsXyw1feDKESk5Oh16XjuG TzJwIwMoVA /gpm0KOjUWx21zJLl64ie7TNQ3cbLeTH1uuJBHK8gvkC02qa2YeVRmjjNMLUH/yxS4d9uz9+ 8improle9D5XopRxaNW636kWAvicVoVcqwVSg+ acLlL3ojX4MumbD25WX0m8xvkYx6CfPD7tJnY2dYYJL3d+PYGfh7HeN3Q6+ btoRxUQ39usz3YImyF7LPMD8ydHXdyyR/OR5DNEvxLp4zrdK/I4reYTa0W2zf+ 5UtMfHNuFetRIoRydKWd8mPDRaDkGTxl3hYqNZ2a9VgPBb4IQS8zzGjcJOuIEfhqKE3fazg0hUOH0Igv EFjXW14sINLfmiGGrijuW /hefBOoC/mt4ZZb+LVvwhZ6ikoV0YEw6kQoDjFM6gxRYxmlBWEBZ3TKrk038+d98yjlX9/ K5PmvlYwSlFlXpo7uAtcYe8yhc4afu+DKJM09UFm1k5185+ oHXlCFdLHpY4Hpf4npbA6gv618UgMfVxVkfhtiMnDZrq5nV6622dMOzuC8ycnwFNsPdogHYOymglWTO9 apLwajIFur70Y + Fgzsz15jZO2jWnwzyD9hpzt7mvzCo1ClMlH3DIkCZIWqbkdwyK8OwGQMuo7gj5XEXUu5Du9aduvAXdhx fshu9SHBF4NDTAelUAQBIWMZ8xPLtEZrMQDwRyZaNugkPiayjo /g3GHj0ak9xN9+/Y+ iqiCTMTYG2QKtkMw2sA5bdg4N49a9khLZd88GBoi4oc03Tzt2Rq5nNUYll6ndcqSDMd6pcX1XHGFCq1i P1zlKHwDzDHbdYWpz1zo6d +NI/ 8AnUY1WUW9s6uEoocOJ2qDIskuHv2k2QwbF1DcA3cFSYtoBQDkZbJ5cfkVouSi3oTij1ky15GzPZBuaa rzUjQcwNqLKxJ6mxtVLwcSrLgUEvs2zyiSTgd6Z /MNrT3Z1CWmE9lBsK2uwg1cB4guJwiimnBJiS6XvW9ZwZtrh1HpS0LSVWbRForxdPG8+ 4PqibWsVHGb9nban+tYsw5sXB25HVFziCs4ar6kNYn20en75jZBHC431wfe/ HhndKhdb7vqU8CGaM3yhAIkPbZDKPpaqCO+wupdHSNMYcg7W6AzvznDZF1H3ZvH/ zU8t5kB29AF2FySQ8W9j5fuJJr1S2EraVJdTA7hGdXfiOMDS5w8v6K+P/ Tg4eeMerjprfb3dtdHNaypUeKSYJPtyJkYdQsSrXwZsXBwQVvUQLP94+ KRIyfi7yG75xbG1RxgyDn1B4x2ZSURNfUaT3CJHr8iowHjUzgnelKMbrWfhFQ76L+ lWpeyglbVabvRdr3+qw7LvnUVXitRr2rrB0gmtF8pp0FkH/GQzasa8u1lv+ 5ystm9O43woCtUXgEk5xy8uePubckGiKFz2iS1SgumOccJ5D04XOrM0gjquNEaqp3kwE9c+ Mv57L3lq7NxR4MpT6evWC4eBwZ62aTIQDXTilB75KU+VmYR5WXZNU+ ZH3mXWR4sZtboCm9pv0YqFiqygVlWo66roFjtzYBem3nEUw2UqpGN+GZTmX2P6X+ SmZXk4mamO94M9BcEkY76Cbu7MA9HLdfCqOpLDoS2gnZnMqJn9SmOLO1imCtE17dltWfxpspjSFh0YI0 wevI5CAY77Cjj146Juig8mahDObNg7P5L8lfv9jGJsOqi4R4oFl1EueCisSSnVHuqLKE1h6MXxOUJ7Zc CluLeNVYQxOfLDXPF / oMoJyN410iihK5bRSzcJET6caC8dkXOL0VAJiIKnjnU7e4EvJv6uwDkER47TAVyuAv6x56a444mDaZQX xQch6YBkZDmC +9zrixtlEjBMkDchhBGFROY1Hyrsicxbj/ on5IN28L4LsXklIQJK6FAAHHQWa9qEsmVOp9pKuT4tELu9tDsNQhfwWyda1Mk+ vk000L4yf63a8grxBlCxE1QqdvXVrbkOeGGKKvtuG9FphlkZu3zKdyQLL6TwVmKu36qt4vF/ dtUkQkMcxpD27YfEshfyZm4KZvrDKbcU4vtIAJSEzT127W2NzKEbrPQcjPhmwPOdpE7+ 0kS4xgKf8Gxvz1sfvrlwYRVHQZrzPTxClRVUP5QjNcco8R6m1EgOv0BBBux4idwfBA1jYBnKT4nSj5Hm wsNQZ3GcWxyWPzn /Q3vRi7AfFTOVGCdbv8T07SuqvA1Q69xLh0WB76YF3+Q4aP2b7CmyYSUpQZGQwUY9vR4gq51xwa41/ 5eJa5zk8jgdCApUPHxJiPmF2wOh48q7OrW4iXKfdoOg8P+ LtY2F0S5aYV4ukcmifuqu8D6fAQjqk33vN0Ts8zxaW6WkTgnSTylHQ8rhDz7VWufGlqiFY0tUycroxY4 i / eTzD6b1mO0cfY4I1Eb5tQvnjSy6eX4mwPOe2JgUXS8k1gnCjmvO6PyQwSMEWczMjC85vaPmgsoRRgFDK t8trtoQVzxlB7x6vvNaEIiiJzBccY277LXp7vpJHtKKgDwJaDWqgyuw8woWyM8tVI4kXC5vuCKri33PH hblvIpvrm2j8r0ksktXn90lQTxR1DFGgaJpFl0 /Dft5hdUS4FewC91VeEuWIPmYTIA7ZytIyEB96VGrIHGbCzYGjy31Zef1nm+ hHwQY9uvLQCTjiNBUfHf0UBgDyIqAPrW4nprgkh5BI99wupBta5SWgz5+Vv8Vo/U+m+i61pk3TcRqD/ u4TtP5x2keQQev36gXZURdrpAqMxXrlVzBdW5MX7fXe2o/ jp0EPk440Sn5BjPTXy2ZGXBYhq3VTetgAHfHir8ZNK9laMFkCoGNQYHXkXZIzosYER9FbxvKIJvYQvcu mNI7aJQETGjSccYVWWnYhEYRZM2sxIboAVl2uKJy313lnkmPmH04O00qD8VqMoLeLqwmg5337jeR9WT FPiRDuxEHR315IThQO7WfoGWay3adPmeciVQlbVgNAedDkUqTkcgZ9oW1upA5lGn8XDRgKqylMKWCjCV JEDWiNlonS7eA7ZXGBEh 8iHQ87jtXfsuSAiqohfpwZKaCDHqthsISlMUSDFpk3ajZa5/ s14bEcau8dJlY1j845ln62b10Aa0Hamo9aGIONuCiBcQxMLJga4shYWRCYV2e0BSjeGsz+ q0VQ7hxBDWwWjTdpuiYza8rfbRJfwbhn9RoyglxSfMEGDkSu0vIpfvTDOHxqpaNS9cTw6jXTz4gsiQaK 0fQDM8xSeCW5StSbH3oUoQryVsjfzynpRdK +eg41YcjD4ls72xh7fz+ JPq0833DP1NUfvVWcY4ti6I4sXcrgvBt1rggW4uvj2T4iozYXq7BJFmzkSoXoTPUfAqj4GEV2ZPRps0L BEWRhvIXKFRUJpJcQEdPKU0ScG1ZX8YKyV589xsiWEScfe2dJYGwGKPVKYrk2nwW90jvQwkzHkzjOxAK Wqot5Rxqw98cgk +GbBlXaNgaucOl312gqhMMM0LCw8PgMkEfdySOdt1GwJk+ OjEZazx2tfqIdfXwotKNmYuRo48W16OO4mdRjrcQcdGHvYjEsUEHdAHElSJlletgMuoNuCsqie3ffSOn PRHOLQrjbU2t5043VDvt7phmSE1O3M8DiKEw1k2p1wS7bgWAwb7gEhbuo0T3Nqzemrw7Udrfaxd1uPd1 n5hB1iUHFOEsweD /bQtgugBVEM3s4k4DvX/APay8c+NAAd5xe0zHR0sYvT9ZULyQHpSeBQOLWHRcl+ ZGKQtchQ8QpmGYOnAoWsxnvJktOKVn4ly5PCQQlChtDnZrlzCBYYuhkw5LoZyucHT4fzRZZ2DQkmLrll DPaFQjtpY9xtm1qte +QeaeBs188In1N0vmKGpsLuuZvm0ATQgegecCM4y4h3yKdfY33+FP7V/gXxPPaLPqQ0+/ NzLv810M5kYWr7phVNNpQJm3pDpR00EF196J8u6sWuIC9U9faE3GepkAESILeMqbpNrSHWQPnffoa5B5 YHNhWwkLYRhTr2zE4jii2GU1U4P4FcNniskenF1MtyEzSev6mguXSd +tlLdYvyzfCySRSAGWEGeiI7qOLrkELSIvm+ Ev7APsZJNgcBwSZpuE5emrq2oIecvNBbadOJE4l0j69dDcvU8EJgcF1vbpnbmtTpg5+rtbtdpI/ vCsZ0nfN6cTWOGQYXTXATFJO6DWBrOKKTE90Z0qSzHna5vxeEu5qbcEyxhTPrcZ3y+ Vh7QEbLfrTugn2EdkkPaEh9lrKU27jxub0aeXgtHy3fiZjWXUCBxBdIIiSouqSylrxzHY+ OK9oUkYeUQ6DryErt4sOCxHN1LuNl4NAzVmQe371xSyfjNaciX4u75U6zxHF7ILhY1uNmFzYH2sBQHj7 QcZztegsZc1BZlZsVV3BZ7ohH2YGgI02bdyDTszzKBprSv7Yhn77FJAgUYJ34nXRTLIlpSFcHeWITqZL znLXCr8IVTU /xwFSscBDJDpMPfqlOeAq58UBbngvoUNf/lvIgCoMHrG4x9Zo7wX93bb+bv252kw3KppJbcwy32fD+/ 6EAR7vuYQUOogDB0RXY1y53V6gtvvLinBFttKvwwG+ 8DSYIMQMHomFwNeF7MsChGUPDMHBvZAAnxO6HWQvMwvicnpZoECJCl1GNtnK8C3wi7IhfX11lIAIZTSg 4paw7eWslKg6isEYbpkq /F2ez+ 7j48dBU7mNa9z0CFGDw9IVN33ON9qpji2pVXbsI6rPpij8GcpqaTre8mDYmv4IKZUZJZcwQTjnFTatSx KpFoaXpFuGR6OJzhSjlFMSZKotFn0Jcqc2g +wra0uzckXbVdlqgarn/w7+ WL9E1DBm6uQHd663lPDDHPZKjvjHxVhO36KNUMzNyeASOm1qg1RC0jzzM4LfkJqhqSGDBDxHJOW0QAM1 B7LnRF5X6Kk9O8obkwYo0zS1ssF9E26wQ2 +d9tdte/5i/pf1/ XKvq88IcNDNJE1AnR9E4AMmHsSse9DAwmzt6aDxB9hLUBTcJNj1Zs6PulED0GxWS1jQ5cT3BbzvAoVQv IqWlKYiF4ZMxp9Ale9zFNLQVp7JqTCMTbVjUIMFUMWtfmj5qhcluh /r786J0w0lnf8t8a/z94yhnu+ pU445mo5SUVkkf1mhzlwPhq7WBRUud8lkg3LdjEq0xQ07NbrGCKdeU1vzQnMJbzmndZI722XuJaLH6u0 1GP1mnLK0JQZSTuBDRZ86c1SY /8Dez/AK+Wdrp+6k/O+panlqe69bi5dmFasbxvRUpMFLI8xWC/ YzfFOrTXZ5pxiNoM0iqEFppMLied0qx0AQPUXaHFYwpx2A2adhhS0aFXNy6DBzbb+ oU8gQigUcXaQWacKS/m0DQIWWw4W3WIbLoN482pk75DIDxfE9dhDSx06+ FdxjJ86ghDjLYNe2rLMx6RJVgT3IitgRGVWC0MQhrsBYadDZA5d2BZBPRWRo9IWU6TlMAn0uJzAIiLid 9VmZcms6ruplLYEYhqCm1h9NwCgY2XBZNNu63N69dwr9uu52v0p +j0Y43gC62HYjd07zgwn78ake2+nn+ Ssz3BPNS6RPLtpsJNe4G1sYCIEWMYQRPVOcq4UthjaOXZJWJFNhothfhXYTAGnziGpjNebvDTIFsPmx+ 5LVgj1ca63/DU1zH9r/4b/bte+HGi+LtLlstFn+y6+jKlPyU1oLQTt1j+ grNhXt57oVCUy4YLnNVb17jxSmL8j2I2sy3Xudn9cbvFddkUwzVfbwIsj7Oyz92HAOLseZdwxnv4N/ BQdHoIyMNQjQu0nmmadi8D+ YsrOQPzoDeALz6DhSdBOdTsIXm7S5pXkCR4bZP8IkokLwyctQymYbXuY107B/ 7GfpsCF2twQp56Kl8yamNT8c8MsvejFxiqI/ H9ldPWuLn7Dd8j6ljRhttqIvuoOSqMVc3fW6X1o8vJ5AK5Q3yqNi++ 2f8b7hNNJoWdZ7urToPDYuLpQQQxfPYcpe0ogqDyd97wYxP+rKJv1jFhLjdM9Q/aM/ mC3MEysnxoRRkZTbe6SheP1b/ GXxIbVpyvq0lkN6Rwdm4oyl6HrJitGuD3nENdqIN6c9NhyMgs1b2kLjohP+o2H4V/ Zh2s5u726lFWZjJrxEygkgSwpyxi8lo+ 9Tdmcpxtyo1plHkGmEd7EdJwGvmN1Fzu15d5sOnIbYySJq82EZTmCd9gERydO1eUhgtTCwwU9if7ozKw CP5Pw6MxgizYRDNexJa5MIsNXAeyEVeNLwFzSoBqVFZrWnwUVkZb2srUNK +Q+HIwmd0z+1u/ tNzotvAiWsLTfzMfJyAJroZ0XtnkrwmurTjZ0KSPStaXp6GtXmmQaASn2oG508vqjUSDF0aQQhvy6Yzm ZcucUN2b8oohNwIm7WidL1JfzSRTZL /5jkrKv3N6xyFrl0G3sFV6ZG35qKKoKe8tlbPoA0prW5qT2xNjw59FL8w9hUxXsQe7F6dxjrDZ1W+ oAOaIzDEMu3jsmw3dwYn3b0Ec/vVwdv5IaH1YpsbpD9SdizvbUQKo+ Rk1fxvU3kFby1tThHkCUhLMGHLMHTRdSHUODURDgvDXTkFoki5q/aN1P4q/sX/YR0IqYr8fh49j/ Hu0ryNqLYtV8rittdF2RalODdO7k8Jawpy3cW8FgR+//aCIN7D1Am+seE9a8+ 8rNA2Cdn0Njf7Mzo8S20a0i6x2oGQig9yfHv2nitnF8Lyd5R05d9i53f/ FLAZFYSJ6AYDLMdIIHIGddwNY3f+I/ do3H2PrryOcgdvgqeq4J98oca0ZahQrxORrqyGbwFLNTe2HZJFh6F0fzCKh4igJMfavyr3JTfKwybjAR Zp61D6bQDXlzeClpQMYB70naI1QHhdoSw0gDFuAtqYe6xmuA6bxn46aVDvx1UseCvFrRS9RqVLPKNady nIO6QysAqmxLunomk6BVIEG3NZj PrSf94AbpDXecw6WtWHahJYb8g1PcI4fwIYx7TO2L+AM/ sTH9kP3m40zKBd4jfN5wnVYQgoH96Lvy9lgYPlP8/Q0mJUpYKL6i5GAeTZQ7BZlvswGMg/ GM89hR56WQ9h49A6v6TW2Njm40bayp1m2cxwsMUFqFZTtUUPbFxgj68dN0iqzOOU/qn+zp8DNf+Gum/Z /EV1o+pvlxwNCbPaSgvlLHaHTKXks3Hl9pCuWg/H9Fp1/dTZdfcxq3Bjjqt55/ BnRrBeVcxfaHjZL6ljRGk3zZC/kC7ADsGoWoJbFMzurijwx0kzfQwCxbRXsOX+SjkUJ1s1kIJK+ 81Zu7a+w/bj3Jx7n3kzs6XzsadMGD+BUK8C9CTQRjZwYch1JMyvPYBu92kGYPrnA0kUd/ jZOdJXOs0CX5Ye3mesP7rhLxzp4DK75V8Ka2i2r1NYGph2H9dUrsGXgJ1bO+ CurAK1UcX9O8G8No1Ml92sq4j+ CzPbPav5cFot2M7D6uxFFglqKo6Nnu3wr6QbjAvseRvpTj6tK6uVf2SVIXR8fl15z1xi8uHK9X9Ouihx I1kZENuEk02bN2Dj4whcCb3SvuwexZCsdEr4s8G1F7VO6unb24fwVhESGKjL4mXxRLbT1s7Kr8ez3g +0BF71khpGyrlqIuZtNrkOCPR2ciWm3MFJdPzjIp96y74zkaLYin2m77/ aMnHamdHBzu7cCNMC8lm8gX3kf3LuLZtVrtPCAHNkw11pOz9ZatNfMWczI9GOc78jqR/ aUybnq1aj7ztwaJUHi1BaqXT81vAUeRdpXFUXk0X9zStZoMkpuKH23dITQYH90e8v3R+PIdR+KHg+ 2w8gaTuD7CnZg6/ gTw25vAlEFvLpokN77p8l2EEdgKhPdiRYGzhAJql8ovE8rycdcm8TuTdEbUnhO8NyB4Dbt65P44xBp4F 2M9CCAq4w9iZNjkeC0FLic6bE0zFEY9wG8r7CrmHLleD + 0rpQzOyUh5d7H54nq0C7c2txxC2mrGubVvUECuQv4MvRRdDcP1jE5t23yzAVYhuBr43UfXWB255ChfFG HFs2ZQvSLgezdG1lmPQ2O7uO +sx5qSdrWLAbtehIIbprIjRcNwqFaGGVR3n2F+AgY3NrVhb/N9FoV/ VfXz0dWzePSh9f5ujxo8QFyhySGP5EMOfHmd1vA7TdcgWfBvqXDtQivNnKlX99e2KXdaW0bbt/ R1y1BqY1Mu5i6a0bqVY9lvNzD04lFNFe1OnHtZ41Sc24pTBq2OYvujB1DJYGn5CSoVrjzW2oHpjtKZtK T7azhJbRnt4baSsktlkjboHlzLlWiz9aYGRimiJJ1tk26XV5TKGQZWnuzZwUiLtCiDzC1gLmcGZmXyzC F1bJg0ukj /eyIyn1AHrv3ALQ/hecTkMeOflhuU3Lj0t59W2slI+ bf9Cbj7PwdubLNZxoXjaw4x5OiV60WeLUvlOAuzmPE3SQCKi4rYzvj/ HOwB4izQ8PyPffqyCby98UEobkNp2G5C3ClZ23ldeVzP9q36nV6w7/ ouWCJjEw4RFxI8jntkroGjRe0oBYKaPSAIOA6qbk6wtdO5VfjW0mbT3B+ MchU97x5ZWkY0s5znEANNrNeRhFG0JDK6JC5dJmvOD5O2R96oZ5/AFSXybV7+/ tK72wq5o9nCw0HHfC2Q/Du8+RGsBBnOcev2Dv+dc8H+CZVzgPjEQ7DeNvxoE7QQdCQftEsX+psunx+ S3O4i1sZTwrzUf0D8glP7FkWHVKq04iekPTnEx+TgqTKVZ3YZpk/aVsRUrU+ RufmazPU34if238rOdxcjxbz3ztVp4cB31JkHLIBIvlJeyrBguTBsBZtErBgPzmrqOMrYtnF8rKMob3r oqkUiu8jC7L +FPB/irS/OeziTH1ncy3x+H9FXR/jBoOnazq+e6RmRfzuQtpml+VQCixTpeylPOGq0jLG/ XfQxPBJ1l7SyNRY0Lye5YgKzs/wvo/1F8Cf+Ul38Vnsf+FKeqT38uojwn8w9UoCWPq/4o1/XGu/ TwnqinOP12/sUEusoyT4b9yRcD08MT8OFx+C2tbn9/iC55rHEN/ES9+IHib4p+ XEZQdwEjIQ9M1w9Ku190a9w/ 6ww8z35aWOcYtKSqhWRjMp37rwEjvQcZG2kcHtPRFt5yZ1iqUG7Tzo6tZ+ta2mHqg7Z1E+L/GOt+B7DX /A/bVAzJ2VnHhlM3LdIzD9zuLg+CvB+yxQhzfa4R4AgBv3k5RQ/iTNrbXWgxa/ 9m3O9akfbOkkp3CjNnR34u+0nXPDduOLE+zy8CzwezrDQ9FmFUvj5udqIQUSr7p/ u9aJF8xV4Z4GnefZFAcYywUW4fXgHkise99xHNBdDGTbY24X36Fd9L4wjPVGic5JRO8DD/ 3GnL82vgh8uUOZm6214t91TrVNq634AiedjIj13mC0l4H0VEVIS/ McxNB3H1sZEgQaNsehz1u9DVr2tqEii1hbzrxPWsvhwD7VdMP8iF5sB+ y1B3i8Ce3IyxG4usTMDVoYgKItYjFqlFOgOkcCf23afiJg0g6hdAL1GBkqfTj8rEcFrMq6kGgxtETg0o r +S28Mj3bty3VUSo7G/aR+GGv/TWb8TpI8wvX/YJsyoD3u/CfVdb0+YRU00qRub5rWhk/hBfFzzrcXF/ oOm+I9XtWu/tFkLtNRtYtOj/Rn4k/t/jWtz5RdBG7+Imj2+nprpkkKl8Rims7q7xMQY1rgj4c+ iZ6SqlzFnd5f7hxlrSz94gORbY56i85I7dfMfJBg963Tr8Mkd8fenRxL8rbqFh72XQyBmQKVvAxv4dqj Kl6woffdtjY7r2v9EUvef2Ex0p5SUragJ3CyG7 /pSXEMVuH0kk8XLuDdtfBmZvWrvlnLp3dh+SnjeI1eSziYk4g+ RrresPtrN99wakmEWyY4gbaB2qwx9bmZsW6zEhaMQvlmusBVscz2/hI/D+ aElJxs3ijdguhkIgSpMcWMk6mMCJfXyLroOz2vV1neMv2A3slGVyg4ujH/ X76nlNyLVnNjjf7016HnKNini0p2/O1avU6AMSIxS3kb5UokH/JmCg6XjLw+DfmT7F7bnF5fM5U+ GdYltreLSYNaudStb/WtVe2+jqCAUhsLlrJVdzLFWiQ6XPUuVpFEot/0XeNxb3SxTziZs05uOS3W+ OY0Cv6nYiaQ2i4YGttj8YaO8aTnMKVNUvplDwekVSkESeMLj1FzMtWk7W6otMbkmpq7wfkdKnSwVLo16 B9Z1wyVqAx0Az2wEzpYkJUt2yjlvh9CN5mqTWNZDFtIdBmWtFtKTSZ7WGg02qrXlHJFGLdzyj81OzbsQ 5zJhHpFeK3Jn2meMiM1J6rNiZWSW1GSlVIbjkujLk0fnOSl8uDjCkaCjiAS4gwKb +02trcBZZ/zI/4KL/uoBpa4Lghr9N8pLySm+MrXWZvHU/ weZu9inrUB10zB3d2EhZjK97Jo4XuwYar3kxx2uyj+2eVpkWnSSaj+ ifQypZXfxmmIjCi4YJOsDNdJygnpqoloYp9DeeAYWT11QqzbBsckz7r512aplPpaKjgwleW1F1uG0mgk N1j45l7fo35zC +FHwc8a+ WtrL0h9vmG8zuFY9S95ykXZY5Dsyn1nSMEt3FW3Haobmf5oE839gp8MUVkdBrTKOXlxo3YNN7bfn6he6 BW3gLGNeAAoLyYbuLIi6OJ8o1xyNxHUWNEyx0sZfnkmV0FuXgynvu6luStrUm8Zp9AZGrNcvGiFsTwNt P5t5PUuphJj36ZlAq7mvYNB8Jz /ADQ/IEQxo90I+Z8moD9EJ73N79+CfjH/EPy5MADXAWwPCO4OlKYCuIzlnmPW6UVhDUyL/Om591z6W+p /4YRoovsY5cujg9TGDpi1SbJ+1V4y/aG/Z7+HsjpGyANPLgioCOyLAKmwDn4m4+x0+44CHuQe2nwruFy +DSacilCdc7ZSFzs5fLFabfRMAtRsviblS26y3d8jKu/ oO3mFux2Y8tbokDKPtAwhuo3zJVxyDZgMAQ2mgXVN2PfQEltKUzpeSBjK67s48G+NRqml+ HLBGHeKo66llTVfeHJb4iVi538ctKCMBla9oWrJ9uPI64jLnbwY1LOFVuFKvNTwRdQA/ oMs93iltoCgi8/AMFbOsbztalDnFnalMxjnQVl0FqyOsL/2GN1j1PgCFcUUCUUrAlRLzXzRigPVwJ2J/ n9vVkFnkiEDbm85CC6blkf6DiP/2kn/NFpePQfH1huXDE/ gOwLeB5hswuwqsP5I4I8b7AchEM1hCLTqaeNbqimho9Q7Np/9vU9y5kX0VIKAisWoa2QL93rs3Tugl/ SQGiRei8T15Nl5x+9k9e3gTxnGpWBQdx9dBuayiKABXNTQoDtEb5zkGnHmRxKLm3SCd2zwtrZNa/ K43duiqOdXkX3kehA8ZihnRM2/gc8g5ar3Q3sg8V8ad0dQKO31MfUYyaschK6y+o2T6zXu6EQtOtyU/ wBoL4m+F/M5fv6Gn4qgK6+eS0Jfh7WlaUlakzSYvhSGuCMpzAaIQAJC9XagCDzXoxQzCQOSk/ E2ZE2Qh5iiTky4DS40zgj3kOQ6vLtwbNJep9Xkbpa51bmbeLcDWALD3bgTc5kp41rCuX9jsdlO1Tni2Y 9gAOMAM5hKz6Tamn +Ktosrl6gz9tB714qBC1H3aEoYdpfPfaB2BcDyAoZ4StN7KRFTijmmYG3b0R9jLL6mN2yX8d/XD9nP/ wopoMdztc0W7zVe8wEmGzCrOpuhaI2f8Gs72cCGnqabm3O0a4qovw13TAQ9bxcLq3WYZtHChaCg8zeYb cszaPc / c4p5oPCbC95rhSZr2mqXjHry2fnoqgz0LnmksdjctuTN5m28y8iePgjNNvXItUd3KiPHBXSkLSBnvaIY 5ptNMkhl6BIaaGpaiwZ4BRTQvUFeecUe1NE2JA12ll4EPDVukalEpFp8kKpYxDaYbtJbQxp1xEeKBFRL 0qQLrwZKyvDFA3A /RK9h8ac0lEz/+1u5X412uSA/ yt87RkurXvg7ni67SVwrdqxMl9kzqDrlnY7tv5NS15oqKw1NTiyGgrFt9Xcpkt8nTQTvi6T+ G2lgUMwopOgCYrHLwbeOIHEWPtZp0B/St3qggu6cmC+d1+yx+5skulV5H2kPSTnd3q+ Kj9cB9qM8fktniNrvqzyLXDBBp1n7ZI6mMz1tqpB6SjwdMJ2vlw337hXJ2Zs4jdUNG65y+mv9jX/ txQXcY5J3H0Adl2ib4fzjiHsaUefsyaxdKsb7/z568kamgD3j180dhObabwNGjWRfy+ A8nB53V098r3AL42N6/H/uJWXh91IPiEnggRyRcy89YlKSoWp2vdb0w/ D3ssY3CqUa5IUJt7DK61MOMeu2ahi9flSnqwbZhl0ke+fhkIEAw8vb/ Nc1ucBBznR8uH5vCA5EPvGMiJyePcugKnM5SEd6MXw0YcNEHjzHTDX1I+ C1fYTYz3zo8B1g9yYrTECMsMPuAu8SCUpZLaDyKOBfIrwWua8rzvJFcRZzw4RjnI49d+ EMeJnFXMzv6GkpyHOtuSDAiuPg4n6MBiV/ fzOWQfs6piwaCMhRPDYNCMxtmTpAjw5BhWQROyyl3reIR72596+ P0z6FI2sSW0NfOQ0pIZ9Xanyqf3gW3Kju3j/Xdb12c2qC/ceVfZ3xC3vGf9uzFnLQNslIot+ NVlb7AEYvaqP8Awug1Q4KyERA83bdeT5pcNZGrqD0O1MEN0SA+ giJWCdfgg0yEEUN2qO4SyX5HREhxnmJcL/ gPnnhiGqYKR3qIcXkNU7XSwFPPoLLYxIRHEarecfKuyXZcQ4HL2Mg8LHbgJPiLAFcqghYxJwZ7a4AZzx BObYREIAo0As1mXc3Gis3kq0rb2Cchx4hxrRrNqnhSrFHuTyUWKz1twiWu9A9yfPcb9 /BaXb+X2jxTLZxZBkbFNOajWtWsWV5pBD6MG3wUlCjTM9GSLoDsHAgHBHDMgU/ 1lyZUCxUFNqwZbzQ0NcC3vAqg3wHS6NWXgDAjLuhuQU1omeJFWUCHEV5d0rtt0cbyO7u6nNVGSoZ7CIZ 2C7XBkFnKM1IEB1cu4Cxjylly6tdpi2jmaHt3Y4Yl5PZmYGmOe5WIqO9RHoha1ufO6b6wqO + NMix8egywvqvURKKhyh58cngGznHRWLUxIKrgBdjzhGMAYMrzBG37jKfXnGhex7HLMupP3hDZIT1zpDc yCa8 +kZZL9vKLkaeaF8ls0jiBuLS8hwn7PGP0NU9qjsVzNjZZ8Q/PhEvD6pcNqEhbPl5u2L6+ Ltz3t7GF4MwJbncRKxflpJ+YdnKbLioBX9v17bivgSav1lYtr21Ev4GoaTZiyqGGBVZMRYMT/ khD8iWjm0jiq4Pe/X9KIy1TdcYjCGAFUXCaMUKmf9cHNVGFI0eJQ6yQgVwcv3+ 4Ls9E1hgaE2YpLabTxHiPaL1eLW0QFDcRi604TxHjb6px0Uq6bK2TA+ VXF4KYazaP0FU2FdLb3OONvVaVgUxuYzJaI2Df1LKaAuZNEclnUOqR5TGKpyazCWnCmaZQGbyeg3VSqF n2zRu29mrx6g77pgbqEUn1UIN5V8q1eQ6gj9rDht03Gl54X +L/ZEx1P17dr8wLUZKuWovziMdBOBWOXadJ8Br7x7VWLUf6L7LqGmiSCVQz1by+ 8jgrTTwwmZ1SgQS6SZkkym94/I5iEzOcDk84BdqCjQEUDrXvEvmHZcgxL5CDPzoZqCIuEtNYWNx+ Ap2mOnR3vdJhHsEaHsdMEDiUdyKo5PocEmEJAOjHWsHh/ N2Xs0klaSDqt6F634PvVI4FnS35NaStjO1Yf6fd+ qJP7LWlXORz3mW4iG3dhM6g4O99AR3sQm5V3p4TBlUtZR6OBvlVaFJx5HLTN/ lQCQDNCkEn9R6r9vZTH8vtsfAZ+1HPokDV3YVq1QWBxZXhZrcU/hic5taY2qF/ ifSMizhkTDpv6aW1mkHVoCrAeBpQHt1Ga55rpdfyEuj3webmHp6cDWHyCjZi0SmjXHEcOU4WSzvsIZ9S pB6yI5il3Wngtf6h26 +2lHTx4BnLjiebp0Jq353o44uy/ o9YohfQxByz1XDv6FPwiY6apvM2vYEm9uhHECHH7twCFFMGIGFgrIvvCDpw1bTEQsmnxUgmIo4bFhjHb 0CWVH7HiDWOMzCC +lPEvgmwaKWBIJxqk2+Vu0IW6LAVDqQXJuJXzNFfgWRSRbpMGatL2kTcqf6zyWnKbIjA2W1w0G+ i0PYGH7he1lDM6Sf3rd5KNt4+BX8VvscdiR2xx2Kn9SU0Nuut+12/pa256G03rf+/xRNw5MOe9Ka/ alczZ96QDkudJICswS8qpPbmHUH5J9Y9ZpqsEshSOUAuEt9Ggb8tYGXiqw1cOqS9MHU0MZz0GHNa2GHb hYE42hnPFoaiQ85kyaeUTOVCyUNMpmVcvM7w6LylACgJ1O5S0V0Zw1PA6UHYx1dGcpUe0UV7HAtNAOzX MIcC4JzZuCJ LRgsNCl+ 1Pw2dQX37WV3pjP2xmAn8dvnEtua4cdaWnjdIAVEfa9LpGlk6ahdxxc2L7D7c1U05hgexC0f4lATJFo3 MtzC +2ZZNuaeoKR1i4Qea5gO5aEDMX8rutFilN6DIcIcQiyg9pCkFVeLORWjK+ 4TH2KAkIM2LfSwtrbvxa7asDuNAP2RirLCxyDpHevIjV5y/ x7nUrkUJHBfHnzpUApbU4kgZXOyaQtylz73uRdFMuPgCa4ruXCtsfOuSMWUKoJnrQ4wGozNqFvQ58uJR rY2gqeUOXaQz0FF +m+2x07rnPWO89xnHYZMNAvmvfZ7wlhY0mOUpSVievvnW4ZXYLYRGvZGHoNYyUsKw2tpX4Cj/ mFW4yWd892b5ZoJxpRBSJi27orDjBhKeChZ0hXyvdrSWdx7VyYw/D+ l2aq3rVeMJcqKGfEgs1OA7SUr2IeRCjXsposGLPnV9kjTg2KWX3bS3W+V+/QpbxQg/ Vl8ZXIMPqJPt47I2YxAgjaeWtHc3k0cu2so7reu0/5GIIgcHJx8ZbKgFlgtl5vJlnCjKkemi26Cd5H6w +I/sMxLvSsuOtKFDPT2QxyNTlqzfSXOEKZeVaMKGDhvW+ FrSVtCRsb2l4Lk3Z0UjhytdmIUq90igBt7BlZ1DJKsDjKjwRRM3ovkmO0lrx+ Z6eNdKJBZ6cgN03veiB0NE52fkkOB4fOxVmmWNSyDMNThjeDQHTkRmfp94gBP2OiTLezv+ 8PEohLTS1NvAErsRHQOPF9blQt3bdYCXetaQbLLv41i6nTcJTDhb8ncHh0iJ2HtSPTx1XOJW8HKA0eeM +9gedwy9aJsaX6Xd4Ox/wAAeG/Yz2zN9O20tXuHs861HHEryUQEmpIWbxw1swQYZTUAkIRssCzVyy/ U6IL9I2KfGHCc2klW9GTyPvDdlqoT1v9/ UGG8iLDWIzAAkPNHnbN2BBY5pcDi4syy3Qgm2O3U3Vb1TSg6cACSnXyf0jgckHYPMKEDJiUJsJC79nPO HttMwasKScsCIac19a9iMNimchr7KEu4RP1M32c7NKt2Dnhz6YwlLbMQAAzfryD6n6pBiN5GgYUbprAj KKSi +jWbYxiv9x/hlW4B0X3dE5lFWh7HsHchIJaCq2pGadK3jwh7I0i7kL+x9N+ LszAPPwxDbyDY2sYycgfXrxsxK0KnVwH9PlVkolpmcdoG6RZSO1Zpc/ 28j2ob3V8Q6JSWyxdzI02nZTWb5slhNTqgfINte+ 5M5ZRpI3RYxL0G2CiqmfMv79yQa5uI3GKkd8qBpmeJCJFvqbxfZRD3WvQ6p3FDSED+r+J/ EE448gVAy7WN7iTMw7OgxvjHVAbMlPL9zYwNX/yOisyYVkY+uCmiYRh8Ydzj9d0zP/ 0YL4EsD0PZVZ4fPDtTAkzb5jj0W0lvzm6cY3ztrz2BXrq2yvzTzlZjSoVf4snuL4Cxh9OcFQ7okHTgM0 flYyYwJEJW7j5mTjYr2oJOx7N734QMk8Z0rzfFVtICvfcrN0jeSgbTC9UxJ4znlS7tM2NKULYRQf2GiU xgKFWA0wKZj9ILHyIOvmsdEojbNhOtGoZRJ05GmFP3joNTEW8oxldB py08frAkgLIVNaZvUKpM7txQRKzDRMZG8oRdiyzA6qnAtz3fYupDzdT5Y0ULcd/ 0L8NNRe40nRpOvMFRk829eepx0Hu9I/Zd8e+ I3F06eT1p5gsudWXp8tk0czo1yHjpZoQCvFhFyQxIfvwNX2tYLVCDi/FHU/ CRnSy8rC0h0ze2wpFd6YA57Z0hud5zpl2mLipDClAIxt1ihhLsdvy52vBYEq94O20E6lbGtwylnn+ YHc2S9HZFS7Pe5/NeoWGUs1XE7wvmDfM1R4qXxK9rkKK59yHxmB2rqPtogoKd9KWMKhRqFgPsF+ Nic2kCoeVyuRLM+1d8IhSx7tPxaT8IQcyJa241lJsPaJO1SsvclmzQCoe7McTwHQUp+ tN1x9Ot4m7btxyzORLatNSrtmrKtYWfp6oecedyM3LahYwrKDDfcqeD9VApwFRkwy36c6NX6rpaYDLjt 9Y2B7tF4j5TERlu1CdMZCPgIHVjwgYIBpa6xhaWEwFfIKeOJptYMjduAeQSOcIc9tqNivqGrOPQ7Wjo0 ncqh6 +evHlzoWn+GpTp+ bFc0F1mu7oSvgMVN3frOEH6WierPvqNLTC4i89xIsjcWkAusaCTR6a7q1X9mB9QbizbqE0MN3HZWvkxE bpyJTCpk9gn4Dry0ILl9O9N5FpVvhJVvNSy2KoxDb48VhR2nL1WSIrYMyxv6 /nMd4KpUT0wHqR0+zF0GzC9R8uKqpnD5PbpL1NQWs4mAG6zJS8PzfdlghSlFBUWqQ/ 0CwsZYCHyxDw9MkFZ7dApYsCZtocnRu+ 82sANoqj4JXajEt7SseibwTWIAMrldlGCUNxqmBcY2Z5Lh3otFMqdNg6hNXyjaVHtzBphnyZD7YuhOTs S3uWUWQdlHcEglV5vWenMo0bko +d+45VQnC9GN0tHPdKrj9v94jkeg+639pxoOjKx130BGH9BxBWor75qVUNHrTFvKPezjU+ 1BIyrJvJWRAMpFA++WaFW7ot+AVyu7kQQdxk6wh+ xwei3tHSCPRW8PNQyugPGHRDJrXUmsEJ6bpOsn42hSutW4RwGJp+ XLckUnLxvwPGDB0D9P62ITC5eZ1S7zXavW/ mlA315BoQDx9vjD3AAatcVf3DjtrDL5GY799ANvolgpnGhwqy9hYN9ZkjHtlafcKmsPTYuAyfJlqLK1D WG9uPoNLWCxVHAnn98DulxlWwm +W/ap2MLnemdtpjWGbullsYBVswIPGiMjx22JP24/ LWvHhCo6nzjrJLGODxuMg7Yry5hbD8wwhZskb7ojdOOYnBrMIOMfbamuxGTMBMY0h0Nhb8H8V+ JoImYW0evLGCg2InxtzL8SI7fuECuTWF3hHceeTgfpQjrZTBFj8kLPf1bco3TlI3l7agsYcf7NhQjWRL d6M36pvAYgnW5CcGZyKQHubwKn0eHMGVKINqn3wFJCtdiKxKuFu7Zsmnt6vE /KK9BU7z7W4A6+gtO0wl6I0Qou/ 3I8EYNvwjRvlkEpOqZD3ks39trRxxyIpfOqro77GyFlBhKcUi9b4sGxSHQq6s2WgpuIi1QZ9MSW+I/ w9j+JChqa5DVUtR63P9RhFuRXt6Rs3zqjx4JswGaHl7rfLtA4pGRGgpS9ycOaw3rfMkSP/ TSnR26ogYucSCl5y7QuwxSmgh3wNBMTrcQMOzy5h7qsAiQLzeU6b5WNMziEDizbSHwQrCy7Xa38m2p63 CJLuaQa /fe2e31pdmE2esUemvYWrSYbauTJj8EojwDNNdB4L+ PmkB7zsQt7uxQvFeUmk4c3oifx6kcfb7DhRXN2pSAOXzyAXXRZ1n26d7rS6JSmIlputWvvKyMOpt69t2 5wpuxTyUwQyOcubKNIeG077wu7QIp /xBrfNeqhpZwJs5IcuicgTqnc2cUPQCGLvlczle8gLkmYc6RrRW0bxzhtTY8cUMQrYCadiXJss+ DZneBtY7ppOkkDcNnQO/ZheJbzPZ+OGUxiCN5qK7u2kKMKHlRvsxTA+a+ pppS338zTm8p4HGwDPm2ycpyqrnLUg70xscDjCqEIpb1KJ9sjOfxRkXf6bTfhIFdPcE0A9tM+ AqJE8GOxvvcjE6Njq8TIPKmbFoG21rKR6Bi7a5fSnZz5sj52/wB3eMAYI2qHGIH2nsUi4bqh+ dHo496FpiFbnfzPLr+ ERucI7oXh6ZCuEnLHAcc4SmxhQ0WfAaz5y7FbJrO9lpL4oHnkc4FXCIyXxgizzssHHyUH/dRoVLqdpPp /wAP/lVoK7R6e6IrHXguVVjyrwySgVxgXFMxoqVSNnry49rBNQvv1x8C+T7kcaeu+X4t8E/ Qtu31g7Ii78uwuFoLxquavwAGyD6bQTzfpXOFdYrHyhR3w3nW58VAZ5s+qFw2kdI+ O65cRdoz9A8Ovzewr3g796XEBsSVMYqnjwMnhQbrSxdBssIhFR/ W9MsoiOdeEOFQ4EnS8z4oLSakl5dG53I+VfC42Fd25PCMIlpkktp8Vasl9mlnoRRjb6k7v5Dcm7yDL/ s3+F/tF55fh+IimG8KINN+0A2EtcV3VRFmp9yIwXHZZAEewJbq+ ZR8JZqHOH5Zaakch2k7zwBBH6gGK6OscDYhnld2JNj6SIR/ QVmAdDIcedWOIPxOR09FkfU8zBB2wx4m68K5T25AnQMqxAHX9iXhs5sqAl2+ 74Px27a5w9S5cs3U3FNDF3KKb0XOeXTInIc5bXVbT/ RsVHsVSseZORYhb4itwt6PlZ9bEXvBPK0Fp2H9LOIASFYG4bgKxjcBh7X65klSsLdQDigXRs5v0Vhb97 s2tIxKEHFkVJFR9yEyQzEmllHofGK9dAa4SdUwOXn60 +OfkZchNICFKSZldsARTklf7UeCOh9Rq344wcKcKr0lilep2/n+ Kna79yiTinkVn2iU5bGhxqMjrw7hFfZBK3OnS0H1hDyoQC4iFfzA2ORIkP3DOvUbHTNKOy6fH7KOrRx1 u710FqEb13ly1PqneFHfOrMOUNEC8OVzhWw7U6SBIKedldKp9gjPYYollyIvsdKIKJVZFkw4uCZblBqB lo3CYYnr72gC /bEkK44zv/7uq24RMCjrgwe+Z0ACdqgf+9xjis0lifcZgeUXWGkbnpaEnWLq7DmktyXDnpFsX6m+ tQcYGWxsEKGFj2ZFu5MPQ9J14BkRjRyp05/ Dvl3cAhkKlZFvCUzUeW0FAGbXkhLKDRrfO2LnAgPgyjsGUbVtTHYWr76utmeqydZAgy/ VNhaeYi3XuYyTB9nQCahgA20OJiDbnkOFXOqnK0kg2G6/ hRbWkuFO1q5rv2m2r9BwquC48FV4p3mk6D30QD1libZbOVSSGtkaZZEJ+ qVTHa98B7imgYNyqop1mfQhUS2HOuwUzSqNQvHxCxoqryW98BdOQ9VooMdN3RijMpG4HZAh8D1MuCOC3 VFOGQD1bHTuQ8pXy1p7 + gKmXfKi0aiEUZ3wiLhrMXsoOgjXWRkDbjD4z9XgpVbh6c5Ngpk0wWox1PTJpdx0m2CV1Yr0SpxgV9cxW 0TwBzfQBVL76DKWOlUSBRiR2XGqatzcbDfqtFsCewoLUAWxTmR +DIZFOK75MOFuNzXXw0ZlE+zQitUJPWYL30j8FecVWDjoeNLxFOIJAc378wLy2+ 2GAWon2X7cOXisfAqQDQokzOIux45yVvrBea7qEDu38n7jUfNu9vK171clt36whs93izgo498/ B5j3knd6FW1hC9EdUuLbYf1B20ctqLZNAwprtxv5GpWZ6cVJtzeU8jqjh4GQi760G8MwBOkxWzARVV9P gBgSIDYgkqIbTEvTBKOOAYc8iBWJFqYnzPkKWURSJZJPaIlBcKRHxlL0q02vYpRvp92Vrw82vvgod0MO HY8R55Q1Csq0 /KtZ32J9BRv2qsPGahIVvamfsEMyOOV2aX+KHF97U3E4VYHhmFcADsfLKdH3B2tzB3yRcAo5WWN/ ABGtS/0+ 7Ra6lP4QrpITvlLZpU1LPHt6chMTYeKWzwuT3OUZdXtkyhdNPEWZDHDalHpCJTjk2iMSnI1i7pSUaUUz kfryfc02dO7o4Fpxib171vt19c46cmHljnwbBSvRB19yI8QNxcJdyL2UUKFcGXUNlZW1329OIBEM1J8H /an+ZNgDPc6egw88xWW8KpoB+cIcA/ORPqGuEz4ebquifPksg1/ A8xbwC37ApdpHz9lO4G9PQYIXkDVJZHhfa7t7yrqVmUvPdEjiEZ2EVw2U9JyNvUlElEcwbi4bbZPAi1e oINnD5vKVIlOOI1oGjt6H4Cu /TJ2hL49xfN+NeYOa1eOCe9mQwZFFT1uJLd1htq3gm3Amw3/tieCvH+l/ 4yIdteu0ufDDWX2xPZ6imV4689sMrPGEn0oUxqcFirHaEIy9p0x7UJHz8iyuPBe2wthNfoo9zKbIYKpl SqxmK4OUH0jy +pCHrrvApYGz2hbThXtxKiBAYOBFghvkku2oqcX+2fhJ+1H2h2Guhwjyy2C+ 7SEgBJTgfEqZ1zJ3FRsrpCOlsUi5hVSxuCQzKg4ypYL6DdsNPmQAwm+G1IOlExukgz5bKsf/JbH5Xm/ MLVpKYnx8WDc9cKYngCDl7Ma59yd+vc/ oUhqotknTCo3MRBoTSmjdu1YNMEr6aeufD8PYueo6AaxvShPGtDrIqzxtn72YlqL+ BwwLh0cf1Nm7soyoAWpoaflRsRfrufqC6OjrjBFq/ qI9CrgZ5CYz3CfPZfjUFMJ0xaZjVnRGunc8JPeBNE07PeyWDdV7XTp07zxAU49N3y6EhymEfG6rDHImh UbO /z1RqC0q4ns8LgacW9ym+ keSaI7FLjsSLES5px9HUJKQQ4N9YTNAZ53qmmUVtMsdgEPTxEzDCw1Hy7egljSvhRGHdWSPvCBmT03CE eDUcuR1lbK1HyMKbCMwDNDNSQLpizD9vpwvxf /qt9Wvw+4HMVM7nr9e+ YaIFV1JHNQz3N6slKHgheEu8YjdRrbf5vWo70ea3mHRLH9SWOZ9gjdmOCVH3tm42lNEw8dBcR7VbQLnL iZpbBODLkC2WdgIn6FZ0nUQLfUVpBLc2IHAL6RWTbeDtBgtvS0QGzL0e2wakAmoTyk5wtTs4 /Pv/ Hi1IYAPU0AyFSIq7H3DgLGZ35IsXOYG735s8jz2yOsThJpIQFPCFE9fiYG1nuIEzB6CUONysXTTTosF8 hRwtGMBRzaMbPqNkuYeuoUxsiJwwTDizJpEo65b5UAR1jkin9L /LC2tbfR7Zo9MmL8lh+ ndzZZudu4tA72WP484GdepsLbolWUMQkxkQsQ0adPewTN3CTxibjErtVU4rcMp13ydyZqhckdxPMTnyI AFFh0qW9BLrNmTryNRQQ4RBCmIFIlmcu6jV5g20vg3P31ZiIdiJgEv +u+p4y4r685zO3mK15fetGE2ioy2MS6SnB/nP0NZbim3D7EI18DRYJIBuitfGK4YWZioLVZe/ xJ15hWSbrdE8ZPJr3UdAV6zePC0DPH9QK38QIZzLPwtLhW1sdxrHGS5hVd6xx99e9+/Qzlrre/ ksRe9wq+i5chFskuGQdmvmqn0hnQY+ 2KBQH0I5GQRh8gRpHEISqrFLoN9wBVlE2j5wuBHZN6fvPvNsTTZjEcABRYHsXZzXarpC0wsb4+ NMxI1B2bthqbuPLXwycX7qkvW3N854T43rRHxJGHtE7fLpL5XtEZQdv6cJp+ 0lziO52vV6zyNgTHvJGA9yiIdY2ysEZ88HgDKZL1hji8VJfs+ tsVkROwMAljBGNO7OC8fo0VAYNxH8MpHgumZnOTdGHnZarXWdDSIwfHyFAjL+2H+0Dp/w/8ADfiHwPod /A+d3ijrlO8d8G4iM7wLAop5yHcu8pYkASH66KxgXEUfwtGTwf3fXsVGn72FM+ wKlVmkqkBfW4oKDhQ5GBV9mn4409av0qExNRHwTC0Pn/ kY0ojRzgwY6NpjD2TtmdQ72kpq98u2yoPJt32e4rLmI8WskP0g42HdBIM2Zvc0+ CPcudztqTyqoOuuL7aSUn+7c64YV6+028Erlpus4lpFjx2t0nls+ xlZo4gGdphkg0HH4pqz1mNb4hRQl46qxPD1okMg+HZ/ Kg6sz3wjjwexEdc2ffFsrao5TOoRm3h8oa592gSwKC720+KDaDzoNodtmI4r9v4W0eHkvPCqmk0NGSd+ GHaUrK3z4Vt6tmYHnLq242XUN8nkumZzXEK8wkOKhA/ MFwf4GctfyFmHbJFRxqLXNgQcEy10asxuTAhcpTp8mXAEQLU6dy+D7hKfVgslhhqzrwNMoF/7S+ s3pqQtjcaJhIWvVO7jjucgCV9wjzAgQBhhhhD/OLJRK105HWzb2ZJOsvO7kzG8unNh/ nUg9kEQwh3pPq4nrX3zpBL6xlsh00j0SaziFMAsHnkh3pkMWCAfmWhHH+idfg49R1iG9aBrT5Y0q/H/ AMdn4w/MCl281d6+ rAX8f96FqYm2Vzl097q1FC9W5f2xWrA57A0N8w6oYOwuZZgzxI3b5DFb4Uli69zwf1wlb5Ds/ ZYv1z3rOIX+ 6kEeqkfnb2rnX5idKoPfCNVsyvA5OTX2TIuHtmC87LNq7CmpratS1A1CWzCgRnGyNnIPZDwNbUy8kHUg Z09W0IqtFSg0f98PwkuWg2BuHltW55X2gBu1CByWTEq0PLB3DTaZ9NEohZoBHQycbFpFcRpirtysYwDm Jh60iamI lg4IW2G7po5SVEpuWCvexHUCOCjnV7MYZAKFDFFvf6tntcmjFpgwOhy+ 6vTCkbpRXadz6SFEAhRwEpaCI0YFbCDwmRBSrS/ xfLFv3Hh8xjjK6RIHh08pCT2kaKf245DLQ1aBbg8aH8lnu/c03wfiFQgN5AunEqg9r83e26/S/h3U/ J07gx0qHqGt1MiKwDXLQFZo/Ebe7nQSxSE8hogAUiM2yPI0SQctTUvh1kw2+B/hH4l+ KuhfiiC6Ui42NKItI5f/ FMHhymDKrXcE1pqsQuu0x1qvbmlKsNpHZJEJLVgnE9qxnei2Pl49tEqtplzPpZ5Wac74Z0DuRezTGpZE 1uQ06mEm0gO5b257Mmz9nKtLB2mnmGaaKghWGwm2kJJFHjuto5qWWXPWI0W1FtKmtSbYarKov7vP0fUX vhi1R /lhcOJ4i2/JDmj5u0duYTQwQKyQ2zyNDcenVrUh/v4dFN1Q1Qb1mbD8pxgcaEs43kSGrnDgRZF/ ckuRkzYavfXyA8TdNyJ95tUKn9f8XeUlr4NhHAqjTNEW5GoIwy7RFhqBe/jDRJLnSfD+ b5ivjAyOn2w61BF99J6hckoNSR14ZiaRIvDIiy9C8yPpJSo/ vVhQhf4ntSeRUfSMm273pkKRuyI6XH4xd/jURX0As7z+f3k+FtbKyDrPIQjKXd8+GjOsxd5V/EHh7R/ qDlk4yA6bNjkTNY6RdpKH96a92x1f5/RbR2+f6TaC239u1o4YdkMoMG2jyv0w4nAeE/7EdDuQsAr3wZ/ 8Gl4QezV532zz1fNzgG7KZQ367/ ho3vnTOVgN2uduRFkHpefkiwezlTlWINpqyxgzphLd0HKhQfV1vgtItI23yr29nqAv7fhdM9xJKd+ Za3sA3QP5GputmfOnURSqUlUGPF7yl/EVvejeUmm+ZvRfG/ 5DXc1HnINazrOB7zfyHukublcUjAASHr7N/uS9DtHNbk47Gp19d67Y0xiAvwdeZEmtow/ cM726y3c5i3QKG8SmtSeeIoV1ch1ffgaH1E9fpXSaWWukiz9xbVmhj66e2n5InEqKu/ eJDkb1uAh0Shqq5qZfKb+Nb/ YTszoyGMUqmou7SmLXRNAv745qby0edk0Fl7MzjeNSkNls05TgTmlaNhCOavOhcqM3tjw2t9x5jLqTDy G9G0 +3j7B9y3xnmd0N1RYIFCLbXNkLYyDHeceeD6m7HoNp4q22JDWJSSaQvlmZMVfrsNMBplG31qti8ht7m+ J4gUEf2CRwpH62d97sb97fJvvw8beWtEsTtdtWuMsoV2W3f2OkOPMHp2qe9H5l91V+ RcHrsF9cQFZ5Z6QlUtn2Ri+j+QKW9ptGulgLp4C9jTF+46S4sST44E5Tl72qc5wQWKgodyY/ Un6CtQJewt+IvhVo+arIaDWtDP3d7Nq/dhG8TtzJFj7q/ky73z2fdTncFj+JzH8diNwTgjnaROe+ FjzRx2fexpo1I+B0ABRsxvyFlLUi5kGJieWDORx8d9d5+ KgJNdPQQsOlxkeEQhH9LPF2iaMFadW2xmDCeBhVRUbKGPUYnfRULrWHp+ 4y5NpXsWLOeXHn1QEgsZUnaAkc6IhgK7WM2EkJYj20C1r95oJDZPV8JBzppshCbAW9yWfZk09mVrPw/ dxs1z0V4vH4kOGQld+evoLuckaioSBBKcWnEhj2TKKN4z5mvZFaJYdgyXayohOflXb+ s4J3E1jBTp2MHUy1L0nvatqwx/lnMw6JMCQ99RL+g5LCao0zthXj4L8MrwxxR+PbSm1QyXiuzGQ6+ t1thdqFTZooC46IvG+ xWshi36YWraLzbY5ffWroRGNedgGbclDL76iA2P2gu5x4phzPoJJOnzvhP80qPnXNXMQtuSrp7xDNNjA EpkTD6wgVLT5Xf1gIPTvIu0Ml7G8gKSK66QZc4pPngeYq1CjSVmEZqsloo2sw19Ebzl67HE9Vu +dJuhDGYKnAqlH5mV9qup+0/wJdxxrodvlLg2BYT5m9vQxdrjG+c2E5ASDp93xIzJ3taip+ qp1rZNDz3LjnbNVH2fSyuFOX2ZR/ mWYYZfamIOqadG1rAMnePPGuqXON0oZ1icdbbfh5YasjsjeLbQJgYNdG2PoKNxjEL8OQI6pFZYEfFLqy 7l5jk09UPLBpGCQuLoGRKrWChxqpDEqVoeAC3HjIgYHxy7 /7pb8g5ShMHxVmoGRl56KuxvLUZiYKWn5WKUz4F9+4n2PnyrcqtkyM2qqswUv72HK3md5y2JY+ lZ22jmk1u2UTj9l6Lr/n0jb9zl6qERilrAfWpqPl1s8X+ CeEjGO5RU65I1Hca4J0CSy1z7j1DNzG9t0Xy0vP0F7b4M/1YaJ0t2eiN1skfFM5tk4r/iSzL+ TNS8M85Pm2dzwZGV5m7TdMWEocaE7Wm2OfffFy0Yt9MdnwH0E/HdaX2Cl3Ixc60BdX8Od29yi+ DIN0vYd/ AWqTQEfuiw9gsv1kg9TrRmZbq66wBsKuzGmy6667X4sGEjHz7zF3PischJ2EnuRWChSpMnML2CLdAtNY h3gXvRLxRzgWkfYSamgxjWApCDTpM6 /D1oV+mIgged4pVr71MhHxbjyRnlcA+giY4fg9pBA86Hu5yOkGg+tVcwFdWGr721zS+ GFMpmvcXS6H6EvZ7jlUkU8FdNuD/DPw6+Ng7TkaG+IegfED/hG38B/X30vYbe487C3erd+XUFMh83Y/ Ef49/Ihw81Q6eeZhVnNX2Y+ZnzS0uLDrnT7XoSqaaVIbCUx81siqepy8W5nu/iz8afB/wx8L/E79l/ 6NdGKe27Eud/p3ibR/E/wfmLXfK30ptU10AnY5w7RdC2WQ3zSZS3f0vmawB81DkwuphCEh/iCTR/ GMtlBgD9gfne6L1D163isZH9Z+ LlS5IOwu9NtramNtpucrWtgvhoe2aqPbJnxhy1Rj6d0UyPD66d0r23N9eoIJ/ ao6HdJPqbM4egV6iioPBbm4I4Ygzy5zsWpYAde48ZiA2xt2pxcoawkRaHNfK7VgWhVBkOxxlqkbrUUW8 zdUVkaNNTyUsgQzKy26wvE1m71gELNrpqrnJRsxnXvn1uU889CF7VtuUKvWb /NPL1Bu6ATfLMTbSr8dwuaIkkt4ikzzyfzdTYvbnvvQxj/H6ao0C1P3s5J6W40Ys6JvHawHMtAljJ/ YLyCxL8rPfNk7b49nvlgRvB4o41LUovm+avhSfxFq+q6/aW/x3f9Bl5L7nSyvrNgoi+kvwr/2GIq31K+ UAlbflngr3QuB0p8e5ihq9QqPsqmizV12b8ZctxAHus8c2dVjFuLa0dMLHKx28fxINqSUMt1CQeIZduD ipP1bakbOMFnd6sk /ys/4yhBP5Kj/XQI9qblGpb0d8gy8dIpjVKv+ 0L3rRDysrhlH6nx1naFpfR95i6zYuGRrax9Pe02Z69B74Z6s59bQL9PBBQ0C4mc2i9qREokLx4BBVdVV SCmp +5abZpae6lkVf06jneGcn7HVt/0KbGwqDn2/mCVXPvD8qAMJhH5ol/ vaL5BcTrB0qoh5qgThcU3k2ztKN+JGt+ T4S4HVrmY8f6qotiB1jKtl4ys3i7m06CzUzNzmkfgWazOaJDclsiE6OENVv0zfwnvjALT3J0cwx6IJ+ GdT1kE0Z1Dz/VqXG0N1z7cdF5o2E0n4LtxFbp/879pznvz2f+Ibk4u8q0ZDvmPIR2b9hVGM/ JN4oH28Rf/xzyt8Eq5lyrvhQfYcXrRct5UueyOJiQChkimCAdW9EpZRtoL1u5XYux1wJka9vv/ iJvwZMQDt1CfQJaUApfoaO5zWDUxGeYeCYBtJny+uokeGBb0WxWfRNbquXg8oib1lwgo+lwr66aSkK8/ 4hYxSgyn1xxdm2l834MNiilInw11nSmf2GeLFRQobz25sJjtB0VHdU8eCzuuMy0kbdP1y+hP8Z/Bvw9+ LRw82wcP7tQaif6EBvvP08rNiIHntH4mP01fn35jg6ZbiwQeF2ARPnsj6sxenQ+t3DdOnFnqx7E+ FfFPxB+CSfhkp0DsQ9/4g8Y+Kdc0/r10C9KLr4JmDLBx9g7JyhyHX92AEDHXqvs5Jk34zujIsGxf+ f028tuxxZ4eLSzWVRxzdF2O7zReegWidvs6sQBKqd5NgxbemGTbBWyFXcHggKp9EcC56L3V3OAUKGYRs jxGlADy22xf1o88dxQ + p9D2zGqT2dmsId5Cw4APBS7H9oiZhHIisaelbYK2vV5YTMRgg43192bi3ss0xGcoVbpb257b5z6MJumC EOMwf21yUSww1pGS5MULkMweJU0vR41UVHuhqGpPSZn3AxbPT0lm98wEVFrE6acR1241s3uHpNFQLytH Hm8nV25gkwlU37 / hxb5zIIDXBNJBKbu9CfU03Tvv8vXzo9B0y8R9UDCm5Kx2i9kNHgEXcczJwqEkMJjuwRXNnt7GxkiNtAh 2xw2H0Qc /d7gIVrTL3dglM0T5gwS8Gk5y6i8rX9DyXzb85le1u+lT8A3ceKpP8QxynTT9ChsnV68/75+ f08T2XGeuE3Z+LtE0/3u0g6CTfTcdPZlVpneL9FlO7E+XbV0eU29L4zngHWtTNV3r+KfGPirxZeRXfjU +MIU5b5OlNmkrW4bMrLLpIfwu/AIrs+R3uWTxJeScNpF/MbLeqqp6ueK9ufnKt1wRFh/ G7i4usMr7UTEKiXawjJTgy9YsuDVUngJdjCIRQZbrfJTIbWIC8o/ qFdDAv2WenhVz0zkDc2BGQSbEp8SiiSXPTRCPr43FOV4qdAbQQphWlcVuIKlP6ua6rhoVmmqYc6whf4q wwp0JJWiGK7mbAcAcJ3rPrMvmFC5 /B3nU7fYU6y+UKsAD2PFp4jv4nUo2d8sj7Ae6ZY6LUrr3+TvwycP4U2/ WDPyxjQLjPVZf9vFQ1J6Utd9gNV8WH/ Nuz4gvNV98Q9SmfttQSPM8gIdZv75epyTHvfwMBNLfk1824ZnriuQxPdfjpZnuX4nAbaNHdpzyzrgxge +td35IrDKAOy4fVYkASweTNNJd7i0uqMtTGABmMi1K+ 1rWlYgEkZKvI3uWTJhQBcFWXYAJqUfSJ2Qw5O2V+IvjHwfBcQ+EvE2t+ P8o9a2eOJqJjHADzye24kCXncCx5twfUJ0hhrbcG0y5br5H7wVGyI3/ 1v1oYL58Jhb2k7WUfJeUvtjgvbzkWVzFcpKbWCEeQolsMqpWXKy8QQ7TV7kPGKYqKmjBFu4hfwJKK5uu qfVC1dd1x7ok7ufwecpoi9qMSUrEoUkPvt9mJfCfq22Arq1rlov1Z1Sbr +vf/AIJ8/ yssw1dmd5l2d90f7ksjtbXmVdhgxLyShxtobfnre7Vn2MkDXDnaNMXp1udgStV6sQE17o10XZJWxE9T5 a /AredkIln9V3B5qkMAelAXKFcXVRsKN3NHkP5/ lTzxca3oqU6NT5U58Mci5RyZyzeyxh0pwa6wYh0GgPCLd7bdED50iq6l9yyEBIx3uTzTgIYQKJS+ 9PUqik5Rkj/eb+yZ4w8H/hSeCbse5AcQtpMuhF0nFVxbnuEpODbRs+ X7C3pW5ojzReyEkRwJheuXtT4Rx36qzt2v5Jw4wi6n74Z3ioxVdIH7rcXi9pHddG17Z8nfOR3Winha7f o4QOzfpAO6Xk9LfZ1SPLq9tlKPgLRn1Hvw3sxbNqhwjmHXpTU2U1pPkMr / Jc4S5fs9Cp3ZQcL8pyz3F4BxfRpELopfbiqFP1jbVRrMTsZgW0E2mKE9MZeujqyzJDyCGPDYorvL0Atw i576DHT2dd49ObnkGf / HoyS6ffbRZWWlOmUD0zFfMWrtKobbPRyrirm2njqa29imYLwORtnsBD2sTP9ODJnsRENtJwcvxHpLqm5 sXdOtsalmw4rqVzdz +8ucta53kqk99uaRfZw1pag44NufOxqNDJe7GWF98gDmTg8+ kaKjuB2zGJAIg24VYtYlABwaGHCQEc7hDWkqyi5uGL8cWC1OwhOgZ5JQIe0hfERdxHmRDt07Ihy6M6/ hzsWayPXNoox03XPuABzeqsROv3R2R6b+0OrxxGOFftDsQqMIxlpCxOVPGGYkMMccHNOadNqMI+ 0YAMO3fO728d4LbFqXBuC8zXvW4UTjpxSkdIls7925jm4wIfhM6iLrraM3nHwyO71dd4hkzNi0DpoMaS i1BYOCfg9bc /aEjfqBzPIjPcEffeCjgxrfHZEAbBWiZQmNk5vR10Twc3P+ NGzpvygHzSgbiNGcUDMTMshyc6bAHopVqiGVD/ IdTkWRncnC1EtnHlYlAAsprk9bcVBpZIS1mUZKnt7izKF23irrco/ x1Y1oSlDVX9EZY8xISSByvxwcpE950AB4b65+4Db0xZoYPg8rNb9pgVnGWblRPIJJ6AcCeAdYAfXaWVs +rx+ MgvrTgKG0jxS1a4p9E3CyPBeQz5yIGYjBqGKAI8HohwqtSLIVCH9F3VDo459pI8HDAdiootBkGCXH0s2 DCzfFVfrE1ySoC9FZ3CrmTC2AKYq +yIzlbfjdQV6KmpHxb9cArFgvaETwXCxbu2n4myzi755+8oNfTnBWXSY3NV7U+ 2W9aKCij8o7JdeszPucjDrLNjIC97YAOWjuaRuXNXJDQqR5dVQ8BQF9qNJUeVyubseGmV0GAsVaaW88/ jOlYBOp9UMgbA9uzLU3fyJzivf1yOXJpuAAMPyDGiB0YadnRQJZxDAzSNQyiOE9V3UtbYAiTzhgf6TnC Wa8MRmwDJ8CG1TAZACMsVLZI2CIrwcaJVzM07bhvlPkreDA +538I2EOP42fih19Xr7oh58wfPQC3jt/TYQ74F6sy+ scVZ7LvugGMBuxvFXrKeJa2M3PBL0XbLv9WmP91sCoixEePkX8kyA672yGMXOuw+7hgTYiJwvlRl/ ep7bhsJsvMSUjdQezepfejJgYGgtZglh2uEwYZHRNfJzPJagqmGHfqSoAUNp1xSA9zbCz27GtReb3v34 CnUtW2hmh1BnxnGBLB5 / jLEXUWCRhDWj0WdDkSBDdauG0vQgRXa1jgXF6Kxhu0biTTO3kmOfv0Tq0jVUX6s9WWkGELBjvMQqBVrc TgqMXkdxnahVs8y +V2Ud+/qeu+ K5Er2MJnYPyVUuIbIWsUMkHIFQWVs9tEQ0cX7P0OkoysEB0QrdXXpg7IsgCiifTjgFF4eDABkCxATzhR jHdZ73faOu0b6NrZHM /fNh8oTCSjpMzUyys/ZMwqxkz7VoJ1bZ9p951iWhCBJAuOxJmXl+jzG5lmz/ P9aqwFz8bmvsdTKRdByuP2ol3rnH+So+ VKQwJgILDmANcWoWkIYiE3va04m6tND42i4y7siM3QssTOesDwq1DzppCmCE7ZTbb+ lJSZaML65b7VSeM9ItbI9Q1tDDhWv7uVyf44TIVMROKAJVWR5MO9OfzCbWsmiR+ eXE8e16uHVaVBNKHpijEJtGfOV7aUZAvIrctX4sOFDMzqWz6C6nB2RBlUBLmA5uVyQuVuAlPSIEzpIzx JUcAkMFYhgOndW +u+WERhbmbBmBheyFMIB7yFhAe0kCLJ6UbZWuuuQFKNG+mKtkp9mSQSoRcvyu3227CiczooQga+ 67tqvXmmao4gyXgHRw1tekw15n6AuH/j2QzvFx4S8hkzChD+EjNk5ADMmSqHIqIniDFFSvDh2/ GHoCbauKIjkzw9t37z3i+oZmDpY763enhI9stNZ2vuBpnum0mEVvbBjVGmNCET/cb/R/ LgiEu1hQssO0N+ DHLceSeEjDg6xQDuHuKSQ7dSLrRbCdyjQpz6kTMjrUi5XgHrK311pVrLBGhXKPQzWIn/ O3jJQDQLsfuHQpLFrf43WemzBbH4dWwaqjvtECtb51dpms43W5qohNUu0WCRPKWScu1N3sVcGfb1MWiA u0UZ1dfa6X24WfgRWV7MzRduStte9YIOGvZUrp2H7oKsDTdvBIUgqMrOS65wffzx98fwbTwj2FAY1zA /diVAlQlvjD7BwQ8VBH8TKudzP3usYarTpWqiQgEfbVNX8pisaalHeItkjqcPANVFz/HjQbPV9QABpYZ +LfC+dwfxj9ExqzWi5fPl61p0xYThVGifR7gWA0Kq3BWpi6omb4VQ+ E1kMP9cmm128Pue7m519WhadusfZxJwnMDWOaeeEkZ+73d/Pqvnm/ 3Fy9fd0vew4d1meQ0nqWjANBYyZuLDdTpQnCgtetOOdXpRC7SuAUE7BuEq30RFoT5L70LRIZ97pCQerV DXykmCHUnqqrvSwSiEe9wdefJFMxF38E /Mks7D759n/A9k7K27qe6mzp8Ajpbxjg18Gvz7uEQrBksb0rNtzAV91hKn/l+ G5S7Lg5ESe5uWgmJVlw3dqmn7aoZKFYt/QSCMpGGaQxxRQ+Xlbj5Avr09/ xxmjTMu7gmFCm6n7aeR119v46I1+dKP1kEo3mPzAO+Md5oud167h9GcDOb5JX1MQ204K2R6E+ K1itKwyh3skLqt3PhkAByloXCDbJjY3GG1sN1GD60xRYRuOSgL1R8efnKcetlZ9MsnM7NsLY52gOoqKN 1EUp2A4RUckWBYrX1MejJJWnGf /DfTNJ/smGbzlnuIiEkhuJlaSRSqpFNcGbiVZmAIC/VSBg8PsC99qycYuu6X+H7G/ 9p8VbRypU3fmqVUkXsPpF9lx9vKgOYwyT6DMJUeYANuY3CxjIWyuE1lwbOU98xhX32521NuxiymVm5Bx fw5Cnn2mgWtFA73biHguY /KNLEFws2B8KUaXVHS1q3WnY4gDZwuZQawbLyzgHnZmECTApVrJyoK371E+F6o2sbEDpFqs/ fxqKDotcqw3fJW1i1bKeflfqhY5BCkTMeoib5b9A7Hq+e0exty8AX1+FvIR3WzaCNtIISBrlqhQV+ dEoyeEQSrlAz21h/ w5Cd8IEjbhipSKjqZk1dfSpYCTtuIpQQh1KycTlBhzeYReMdPS75KlBb0e232O0Mm192A1QiCnJgrPSG zmawHqJg6DdwFRFRI1dL6olwvUMxVM3h8O68bC4Gj3Zw08cGeBvTiYZLPXhjFDtQyc +IqP8TpEkBME+SnO1ynSuulx6nhyvBEVZ2HNuIr0oQ0hjUanL133bVVE9hdARFiu0Vufw+ LKA3TXzgbevcRduqCaPgaIL/ eipIFXlVNFZ0JR5t3mNQiVJbTHUyp3uGKp1e3gCloCNf9Onbp8NucAzW3Ip36Qt+aq/ Zqc0FxVVMzHAhWMnDzK5LAfJja12Na182ue7v4usd3/LrlFjlh1h1anAm78BapGh76fZ48+ jsgx7LtPg8m+Ib/F4E7I5o0Kb7QYDbgDjhD0ukDI0xH+ Fxi8g1bmoLybrg5arOMCeOXTMqkQ3oglyhifM7orkz3DWMfENTeCrr0UOBsHTSo1/ 3l3Md8fV9p6BL8SjcvfFlA8FIYwoYj3ouASCTzTgGcRXb1iQIzEU2MPUXKO/5f0aQYr0NYpc2efS+ xRxj+zJ9WmB+z1zNAiMOXwmqOMzeqLTsAbdtTHgcCYyx2m58EbeV8+V7o+ ckcXaHbmmynagGQzx7m32lnB/RefnxHxF+ Vm0iRWjXfg2y8evITZdDuynZs7ywyVgADYD3rEXTVwFKCWqCAbj1bM0I+FHG3pUEn+ ClOyPfp2s0mxyg6zGmPsvpXr3R8uvDlcDZcDrdsnd6y1PT9/Mwa6wsoxh/ AAUmoO7ztET6DpgjlOxqXAdVZb6cv9cDaNtKV4qa7oW3gLDvPlgfUt8j0y5yBFzE7dEiEQzFjXO2zxg4 m4fzAr +W+LplUJEpESEOGNdJOgLWZTDnnUfF8zki3f9nWQjIwMqr+EjmgFlgcCaqURjfxGYxU0kOnB+1rbbtc+ OWVct5L69c58MNN8r0n3jlzcGFh84IWuKQJZ9BP8e91CkCIFRNoHKYrQuMCIY708FPXtFSZ8EAQfQubr CwJBW54RuNOTIFw6HTuB6hqKxulzzufEgHIiwWUOKs2h9s8UEI6bFAkcdtHfC9SOHFpfs1RXAzoCcUT6 5dbgbBdns6naEHNKRDg8t9kcoenB1t2BCqgarn4H55gCNU1vi7rwPb5gCnpXk7Rp43ZEXu5O0JN7I9IM BXL41oYgyg Lp1UIdtJllMl/t6lpe/qA2tyqtlUee0al8LwvY8DLB8sy/QHA31p9/ w5ZrGxmXjOrpxlGZyjGM1wZDXxt33/IH5RECesL4r+EhWR/cuOBYvxxOjZbmvd1njkZj2t7Kpaeo+ eZ65oE1f7aOvGG3l7kiQPFsdOpylR1Hm60eilRAwSbu/Tz42rNrzf/oyeD/ P4q61HzF1BunNpmJ6ciO9BCHmilnqNt/QHObvFtNOJDX0W0wK/j8U+MNG+Jw0/ vIilyHcoA37LLJcYuWg9nkqj6RxuwLNUXvh3Jmi+gROVEBOqCTiSPbhvEgsm6pswQlyvVMgsH/ tflyVT5RMmWDW1LIeqoOoeRUWq7n3Pcja8RXh3sKZGHx3grWeFiiNihnqOg6OW7SVvV4qi8sWbpP9gM2 llMFaoehJtBAlMAHPiBAZfi9cC97GOONd /VjX1Y0GbfjeXtHTevvgy4cUCmxTl9WqSgnpZzdabgeN/nYUPBETshBAFh6rWSuIx2nVUoFiitgQAM+ wUdXesH2xbYj87KUqRf9J0tWLHjJmFqODMrDJ0x8M3c+MFy917Qx64nll9o6HlvGoLh71y3HgTTz+ sDEgtFBnOi3iST5LvEFE4SwmGMoTRNkMp4Rf6Tfd15141ftXqLv5kIqdyCcQCrYypnAyZkWu6eyenP+ tCgt5DIB/jZ/MPcF6irbIxZm8s5xK9s3eWp2HJ3vAK9z3MJDl+WO4huy/ [id number]udQHpGZypH3rmhNWTlEcrTwLfVwmH7Um2xylMc+C/Hl/ 0z1HfqbonROsm9u2mw4EBWHsqwXwzvCwq828+QOTjaHAoQdFwgoeVQzBREE1WAsc0odclI/ kRgZ4tVmRv38USYyjM7tX/Xw6kJrlbvOfEY+QBdCVE1XA7OGoWFHCWKvYTxKWBD6dcd0dbw48e3F/ D6djdcAFaMatOvJhNxzs9s7nq0g7p5m9J6PkiN7aVAjth06ere/qtAXnA2hJtJ8t/ eLsSnV7d1nST1poZQhvQMc5cxmO3qMid0KDHy+ 2WmI6QvW6k9A7fupjcrOgqm0WcHhdHrcxeR9BwD1JsCmSdqTx0MYzgMTIUcNjNlAbainc3n08ziNvI4a 8vmynf17 /0wWOvXlvBdJFaiK/ lyxeOtbt6i1fzonnRh3eWBBiyCWaplrmqC1NmPcu4QslPYCt4mRUy6XggYpppkVk5E0p91aVLb8My2ez jsSYryK1qKtrMkVfTXhVZNjziS53wRkFGJZf083VsMhUEaLeCj1BI79ZqwV14i0uMo8zt5VV25eHQ367 st5k2LhNPLnn9boc8mnpWwjVp78otlQXWeX +RXuPmuSMJCSUVEBEQW3a1WsGRM+25Xw47EbH2hD0M+ yoqhbq8cqezK7rKwdoq7hGe1jNPK9PBuhjVvnLZFHUmZPZg73B8ZxpkriZebFrQUSlr5tm1l9u0r8ih2 0RFM1fFF0vvb1hYjWJFRDbimjb2OL46sxjQpDGN /rE8SbYPzYODaxr4g+ FgmBAGkCRhdUrTjZuwvNFAjiLPQ7Qyx6vEXWEwVDh3jaZRJBvdhGrN6TAyz8pOyvD9ucYLNK799ZCmfq HkLk9IxZUlilQT28Y7QEA12jQSwcRoZ9Bwl81Z +gexpcRNL1ukWmN5+UB573ejm0aEeKujycnZYFvUkNTxJ5YAf+ 5hrsHeiwFVuQlJfozjH15WSQrtZJKOVlCnmQDHNa1NRwcBABij6iJagzJPp7p9r8S+1fbKa3x1t/wB5+ aSyLEqUkoaKUl/ Mq0i02xa0068MNDGgqVpnxy3MHh6eCGj4X2pvffOmLvlPTGzKDnSROnPVSWMABmwdcrFCQFVgvCDTgGL HEQXN8CWpjrgbgNJYl1Cg3WoUpTmrOGcXdOAYuwY8GUJqFxUgmPDXtnS77mOxePh1gHgkALEaKNv0UcH XiX9lQjOeHcbIXl /608L8lHyanu79N9ouudXOA0w5Cgwbm1tl2/JJtq3/ SZBksl5fe3ah7b1PWZrTuzRwVFelpHddT4bKAWQemI7me06oDHiR9i88E/ xoq3wW67F0e96X7ld9TIWeT8NMzR8QANfH8CLD+ 2K22GWdsTgyJxF3iyMHlQW0XEDSIroXH31pW94AnEDxV1oypS3cbU6Sv6TO47nt+ V6jL7cskQtNmwzXKSBb1P8wzHXHYE5DqvAUqUdAnDVdreclFh83np81zeQ0QeHGddYb77gdf3e2/ sugFNxGloHeCRKDNBPJRTpsOotHeBbJ2ETvKJeqPvpFyE18vFgPCeFtpvBnoXgPALdOcqVQOQZL1GuZN CFBG2v0T3vcNuJgCPxX2HIdGEGNeyeeg1TKkZTJr50iKoeiUQrnRlVLPWVh9qgLxv0i /fabZ1w4GYSS9ycHHTA7FuNxjdTEJl1oSR6rq+wt7316bNx9SfR/ nnQugQ15rsv4cRpT95UMGdTAE4METYd5KYEIwetTVRtMEpTJnATCMi+ b7ynZ5jEB04crQ7I3AqLfSiTM8OqyWIu3NJsBJIzADmQo9eSt3IrfHPaLHKXdtpMhcFIzOlfXxJwylhU RHSnLjdj4LfNJ35edmsCHUadGXUEsYAJjuDSWA5zke6y4M4HvAttc +IxL3263HGo8+JdfTsuR6qMAR9paNK3anmvrhKv5RINLEAYAcEnjsn8RL5zC+ grnghkyA6SRyEzBKVnXCAUw8vZPTGfDas424x1ARwWTkxYrpfjDV0tV/Mz/ DFY9Uzg8y53WFAM5atLwe1gnDUP62EyMdX7eaMkJI4dzqSQYFdPM6AL2yNVAejow2ZfZU2oOP6oOd69u /d+QuWKaaveyfZa/A93JI0yvKycapQNFztME+ZkLcKQx+/ 4wpNomWtahYi0BXDw7dTEilpoRBDjC0QoBIcPmNJzP0OtQXUq2ifNgIah5vVXyPnP2vJkGdHLwtRyxNP u +KPfY5VjmHtDvrSXDcOmelsZEZML0S+b+ 7rPUZbzZhMYl8Wp1860ZZZPnZerd6nN3gsuvbaxgt6eddNJYybedNe+3bZfjfucrOfOJyflYYBPJ+Xr/ AHqeE0QAg8qq/ SSqlDfg35gzB6qY56sw4dbn3SCQntA6FOVJqtpRkOP07QwbphOcUFtr4wISA7gmSacp0GHycw8tdbFes 6RcpLtKsq1Wu09cDtSISK1dWqYFp5Eqbafi0jgcl5mvE1P5Q /M7ANYiw0nHz+xt99gLl/ g7px5l4lfuwxApec8cKcfb2UrRNn4DVICedCJYlxtXhZTgPWLAfRR8JRaoHDhuBlWN70ksKUl4xky4ir HYXOQLTuo2w1nDXdh /fK24YvznggVTaNCoWsWi3LTkYfdf1alFCtA22E6pBdfpMwJLOOjxdNLZWiqWzcrhz/ t591EgPufJz6eardu4/CfYHf79Mf2tWLpiAiwDiq6LJ8724RV+ KxdZyllvfVnvrCwLhTJVxXeEkdfdc7MazwcNVSFNTubUAdLeoYAp166mXXGn0b6gAIU2YgdkIsRnUO45 BodJHypin0Q3yjw /BhMOg7gVU9fViWh6SbZwLxSfCyL7QvW9RfI+h39mEz1DofXcJLmlkXmvA6hzfoa/TMrg2m6Y+ U4rc6Q63SzlnaHn38jYvn5auSIJYnFSDWXaOGFatrQeijinG+wMDXaI0mQ2Rh9+ tCLmZL34wD4pRUxCySvectqfEKEZtWNmXCIc7+kjiBMHf8C9kAHjC3nQ9TjcPSSUd/ MxsnDjuCxLPNyKL2zLsObJ0NTQ0In0M+Fb+tDvIbdbvm863WaaWDBdCbOlolcTinWyi+ DpALjYqIN0Y4M5hcAIfRRI+w5ky9uzM3i4lmbq2haV+2bTRjp5wW5KfGTG3Kk8Yx0RVTkClgX3o+ 6Zimu4xCnPp0x/c+qpUP57CK6YgY1RNhVS4BUOQqPW4C+VWGCNat4rgDqI52Rv7th04+ hula6VvC0gTyZHCB0gRzUhENh2y/sl/ bEGHiHB6Ye4SuRr2Xj7fhZG1W0UuIABirLDgM1aRRQFXOeL6UDLZKlZU+ qswE6vlW8mu35aXl3Kx1m0UBgRUQIFJGlF7zsCsomSai9bdRK6VxpjTkmQJSzOczMHLvBuaSVjTwxKky 84wme2no +Q6iZPb7lGTiSMikg7lQzMTTycR7cig1qwT/ddURer85hWCGLH9ChdNuc/ h885rJ3xXA2zF0HAFFll4TK2zfHpQhBUzt0L8re1U+ wN3m5XV6gzFyo4MPA41wJICGvmgZ5lgqfYkcMs9gnC80efatB3axzE2LdK+q+ BQF8bCxu4SpVbhrWGYcd2x3AqUjBVvLurMgHxSeOq35F8IyeHp6qY2nZqNaCrN0XIs43mCVe5xqc22Nl vMHQ9vJQxqScMPWLGhXlVAqBx7AGvftjZCa7XyUrfJDT6KTXVsGEjeYIgDw0UZEnApSzDEXRMxjUOy5P pYtZ5XcfE9o2AlY68Fa4jWrK8jH6taRfI wLeSfQ9R7dJXLWYYKzjCBUau3IdBkPp2h/x49wFnk0w8mTTEadsmXG6cLdb/5EAFPWEOUoANXrW7w+ iZ0orfbgdjAVEIBtHzw6vUok3CAU9B8xR2dY8Oh9WT0BIgGr5Oko/CUsv5V92iBwfiOmuU/ I2N8hHQ24YI8vhPjI8SF+DP49FKFwo7+Dmaaq3pdzTNP0O4bqz9+U4/bg+ KK4ZDhao7dvjRT1hO7twuODLGANbCrR1gqtHh0Y8i5cNdIp8eZoKY5eyXAxYkNMs2EbBCxkysvcA5Y+ HRrTJagO8ZsUouBr3pc+n+10Aej46K8zh7zeo9W6He9nkgTV9jdevV4yWGYc+z6O++ fX08eaHkAJQupotQabEIBEGwKAtJLf3M+NPtOED4Xy0iXccsd4GuWPzI/M+o4kZdnlfUV/ pnpZqvNomB9mINQjDAvqYoaFUhQMsYAbJmTKwAYnH+0nk9c7jCrI/ WGqSPTgsbCm2dHXc7C2KIgkvWVKgLEOYWCsc1uWYL1WVD+CVIG1oqum0Iksde/FPumkqrauTi7vd/ 8C5faeSUW+5g5CYaNcYCw5lAg7rX9GG3om1++ChocOsEMdh01U+ XIo4Go5biyx1xmsx7txqpHF0pFvHdJn+mJGTrZLmMsdQeHJcNcn3TiL+Gvxf+ EvtHbJ1pHi24xdQQGrB1+27gPDh0lbe5qIfciL8IYk2y9uvM9auEByvbiUKgvuYle2/lEzko8F0vdm/ pq3tz10rn0Rea5sOIc8jPg/g4VNRTbrBfstJZFaNTmN9x8uwuh4fiHGu37judIiucxObIc3jrv+ 43fv9j0v/ ZTMwyTt2eLnd5e7DO0g15SKOGYa8crdTRJnvzo3Bp5nyS6lHtm0FTMhCQS3L3k2v89bknZSOUaG+ 8pAJpAfnTbmODpL7abP6jDAeHnFtwdFWtUHGbpVsxNQNw/ NJeD7vKuJBbQf61znpR9cdzzRsh6fhTXZh5UngdauHvL71OoutGDpez7JacBWTddvbkKq0FLiIrgRuZk utP3p3W09p1sEBG1lfOy7asjmQZJSqdUQk5mW6a5MWnc6CluNaB5K9 +47Hl9XvfmIziqHffStRS2YJ5Sr0y9virkBE2IHriqvdDuLKFByLy1h+68sqsvyKeW8o6/wDFOvW+ nLGh7j0H1r3ft0HfE1Sgoc7Htj07f3dr2c2+yLP/AKS+pxMsdzHfWUkNxMw/ DHcX417bdU4dk2fVWzrFGchDpNqNuIr9AoyebQHAWPSmHyXGZDgmZHCmXsyBewKf1SdyK1MF5KpXgvp4 xkeXgbw6r / 6me5EXYz2vqIzbEaPubEoixBiLxt4dFgt7xdQzzB1ZbrhCayj0io3ThXvkkUAkg90AvPU8lAKruKSEkY xJOY2MVcgadFh2btscJ7pZBEo99pvkC9OE0nBfW8MTqOYcs4ixCzCVQEN7GzZNgUVomzH4e7g8bydKU4 Z0Y /LIqYYBjxwcJnnKgkgbQDXPX1/q5iCXftpBbCQLTLAEZIPAobYJGHYc/ IhhRi6L2UDQuHlyDGCj8suP2Kz/ GTb4Ofn09lFqXdbqaD829aeLTu9zmJhzuCm5nfzk5r3t18JKSnrpxlRiCecV3inVLbeoHACJAPE8miIL QwuNzPUs18 +9u9O/4R/QtVjf/T1ub+ 3fsG9UPHkrU1vb9RauUNGfuxBo9Z9yTW59BtlU6AkrC6rdFeanoRcyzUAclBK7caGALayvxtcJMIWbV4 5oXiDUdA + 2eUFgoL2Di5zkpDsGQRaZUwXYjdUKYI9oIXSm7OUW1fJf4XXNtQkzcqdwFp6676BsWvTBGX1KQz4J0Pd 11tr +wWU2u1rcR/qM2Z1EiKyi3b1k/hH/VUq8Tdwro1q4mgOfXxC9a+d7n2w0lBWW0l1miPtYFnEPb3fdJ+ 1ajja0sqHTCl1BjF4jR7Osr+ Brbz44cI2pp3TWq6KlRc1rXMr88nVJ5pgkH2fXnQvkwr2aM6GBn8lYIRGbhIB9CSgx/ NIhP4chXfE39VLS2AAl+VfLOo7Zjdu/ANGtkV/Swtng4jnDe0ejnEh/ 9g7ikbeRssyeAd97vuFrT4xYZ7i8jxo8QJaGecWFfYSDRU9En6qbktnmI+XI/ qPXPocEJ2qQkxKlyPqhb0mxyz5F3Tfi9C1fH+bqkHTgiCCSx5fkfeADAbIflNrEYEqtmFf+ W07hz9kpqqzWdulu9JSKyefbr1M2bN5V7S1cu3733Uru4zb3XxjZBUdCVwrYUsuUVbryUkSOHBQJkvVw XjPFId4uk +XSeyye7Ul2AtC1G1u0QKhnQ52SaBzSpc0Rk87LmfAxYS+qU6vDD6cIyyufHctrDsp/ DFIccEMtVZdb9q2r/Y/5I0R2K5T+MwyI7JuDbsTXB2tcNS+E1j2ATFjxxn8FYHVIokwvNH29AnsQ/ M7lltm1G0R/BXK5fpdw06t7nP3xup7ZqS/R0rWwrb8XBSH+KPjV+0PZ/EnXtdvPC+taPa/ Tu67a5Fb44en3e3kmMJ5wdl93U7Uz9wNG1o/ j4pp73VIbB844BFml7MFeXPOIzqcxN77C6K8CjNaLv3c7mAx98mwL8ggBEm92DzJD30WMJiHhY1NfDYo KOedYw02nsZxIiruNZ4OxDjVFgYWDFMNmDIjcr4rKV0DZuEgJ1cgXNoAeqDy +SVJ1pwmq24jZtAHhz37s9n9VhDlzZmAzw4jBQrDzaHfnWNi+303R7S/8UQBTX73h7zfaJgjIebY+ J8iIjiCxq2YU/dSZA2Q3C7pFvuCpqQeBXcUlMGyEz9C/ MbrsIktgDoZbKqYcZRLHYqfnh08vhyk1J7yA7alBKWm0zFvkpWXFWvS8qhPXbSiTD0tQbOqi19bM25yh hxqmItWVKPV3ut2ZnD74ftiZj4z2oIxAsx +vVN5M8Juux9N3fn9fBId5rxCGI9ewuXmZejzwSOC3y4PTU9epvr5idX2hcO/ C6DAjJYdNMeWg24zhQb6vv1O6w/ C93iZgqFVrxaKOmAd1065iuulOu2he1ibNwUIBWvdmXxKyb9W5Yqtz0otqvv6ONKjuHfg7LSroq5ycGh B3gyY1xCVqFLwI3AFUhJCigpqbh3irxUFYs0VK4a +NJjICk6VGDRlRFDh6iMB5vROvvGCIPAbP+rOSNz+v+NrG10+/ 2rMbkaeW7Qr3GkjN36K7U3lRYsbDSAjalxeIApfITdDUdeIQffgMA3c28lFLtIbZvty2dtNfYlAvzEXG Wa4sdkWtNqtGmmjPIVk8ILND69kKnxvb4gjftGOopYqMiJjIsfTsO6ZU0lIoGMp6xI8oufqybpyxnpvP SnyCWznAETcMXOLXFWanQnQL07P +GFDsDG8QkadK9Te08byG64FjB46alhCTVJnlQp250HC3FJiqqWWmmPyZeI38g9vPqXb4z5UjGJfj+ QW8CIi+ZKUzJJISJWVRFGIopJGSEL+ 1OAgfN8fWxQkdGJzrwcj60mgpHFs6H03x2L8FwnwSYpsD3YlnuuhyL8MxzVVPU3sHB1g3rGl6N+ lyjEN7z0FMeT/ LpzQTxQ5x48T7c1XNcHHBjb6g5ybQJdIJ391OK3xn25zYVAfMtETxkIQGwVT9yZuCStr+ B4lWiVyRAe3Ae719X2h87LXmKTw/ w3O1x6xr6V8a77mU6RsKCjNBLbEGTK93pKGg66poY3pllQLukH5JxVryH9kDm29z0rLcLBYs75eemOTv DYR9JJGgUIY56wViISSsEevALY2jcMXVCPYPQ7gUHX6zncidKWYzQNCqfqfhkAPKJMY10St3u31HDSSP Nd4bDJNpi5pSp +ff8r3i0c9DFBl2+h9YUMdFuBKnKh4D9oh9ADFj1et21lr4fh13x/Zz/Z6+MW0ItcqK2K+ VVsb0wpsaOTEKZBmH+S3fmhPugmO0T/GHbogZt8IfoGbu9W/zI5uquEX/ vgeyza4u9k1OBw9qkJUndlC3Gh0gs933VeQZ1Gs2cgPrOju5Sm3RZQ7iQDrg1kaFy4+ ljzgtA4A6pR8zGQHol3rhhxRii8l0S1e8ot8Gw0H/G/j8l59G6A+EdH3SeHSK4J+ DiRSabwqXodhy6swueXKfv2fh2atxP6eNaea1yB4ZO6h9c0nxN1IB0H0i1Y91Icm9zMy9653FC5i8PAF 4r1Pw /mASrY8evo8jBr3YsYGCbicZlmBmkFXzi7sCaD8Lev2K1I14pJ/5m2wSnyxwD2lDv6der5+ hvPfDaFxO9h5u4kjYgci4xo3k6qw5p06cu2rXYh5YALALApDmvnrGIk0p776qgakuGYtAWNFsnE4dsQd z2Vl5jy0 +11v306b2RFnbUhYPruTnD1vXmles2YEJdbedrOo7eziC6eqnMlT/ m56uzW99D2w6S4kftHmULrgWxBpdl2gyIf9OmEs83Bx7sIw6Rd02eL2ldNSu86gpTr+ l48HgzTwkEp2g719Yjkr6NW3k3H0K6SiIrcl6G3QyOFRAbI5Q3T78cQbHAqdka+ IUgvF28qjgTwl4D9O9aqwU3dsfP4O1C3qh1JS9e3DpQq/j3Ur/ ZMI86wc6FR76NbA0G8to8Uo615FueOhGj7X9i8jrM5ZdmuAtyjxs3M14NzMQV/FXiTQvB/hT4geF/Iit /i34s8D+H9V0h/Hmr+ I9Px41u71QSvjwlWfyJDtyqIeXjeo8A7B3S5u8RBHyqz4WYhYmjZohEcdswmjsoQ8i0g7fynU2y/ ZFUjh/bVJRhOpF+22Nir74HmolRPhvKbdNkJQEzhI/Imj/YPZeg7k+t6Hf/ KReB9f3jK5zEDjPViEHw3sJC+J9U+8vrZ9N5Ld92P/OBlNo7cqFcX67qp5HQT0Brn8liy0VEwzix/ eakD73WA1Oil0Z0L/APhfTPDUfw7+Lzik2k8H3X9A21iqyH9d4ncH2bQ7uecyxlZy9x+ Cql52N3ZLAmOqbm1WA4xcKG164zs0xaSkg0VPByz1GQ2ui+odr7rgBHUnA16IkT9I1isN0Lbw2A+ UpAg0rXioQ7XjTqjJNOToX/H+i+IoOOp7QYA/xU0/YkBUizKvspdmABg4dwEopqjSJ1nS1xQBf/ wAZeHvGt/5B3Jvk0R0Z/gS8E7uXOz99P06UFnPtsfJcrDd9Cex5tccLNuyTm0A8B+NvFUlzpC+ UDPqgQg47wPbv3omZ/zBowi3z459NmMMiO/w+xZJEkee8T/KSa9A6el9cPaRuZik6qUFx/ s0MHuo17wxu8w9uH3zXFKEZ+ofOa7TqdzPSUmd3fBY1TbG34qmwNdZM4qclqLDaAICV+I9A+ Phc1jMm0px9Z+FiM7V2J6mcjZ2u8+LOuXupfDTU/IB9RoWilGIns2i4x3rlDd/NHNofw+swbjwB4/ 4FjTvN4q1O6HJI3G6xNUibsd8PQssp5fQwuhg8FJVati0sZyc6m/ yyaPdFd8WgrVNPYGi3dptcs9MBBZnbzjh9/GJHqbfjDXa7Uc0/9usNP+y/2xPhBq/he/ 0mkSYkDgkokrWkwYsF0cOeW6sOOJF4SWuAuR24IlnYkCpP1yOsX0j6xZgFnMIZ7rRr0Q8Fj6u7hOGo6l xbrM /j8pc87GZeSlTTvUBZZdbJRHx6rUFavUYmMRUpuulpEOn8zCcPiJ9o3xgljovdnceG77ywv5S/M8/ LFnVhm6GEZsBeCc5A6omjfBAEClQH19+w9kJ1BTo5qs1Jbg+ Z6043SDp5vRkNBlwGqNVkOMVUz4xUJEUdUsh4dUYyGZfkxEJ7qlKCdxRnhWitlZm6Be3omJ/ 6kowNjz5vQQgwXsxVNH+zEUEc9byesw/KnII9b7QOTFseKKJ3HmmmIeC6Urxp5cST7gW+6swEhb8xIn+ NQB1IT3tE7+50dCEiwmPTLOu1nz5SBHc1bYLziHKggkpC1rq24m+ FwXpf3pbCsszQCHugTwI9J76PZH4sOnh// HYnS2o41L1Rh1EVRssuwjFSD2ue9zDsQwmnvT1ES7cKYeAm8YelTp0X0RGYdF1H19d1q49Q/ Lt73imkla63Xx1Nz2TNO5gzM7Lo8hB5hD74T850P7Nt2p/URExdgQsQfj8lGKq4+ c4mGuxXNwI73san9MVHLCWLf5wqVgqLgGXDtkrOnZDbwnr62oqzjAnioO0ptTK+JRowy8w+ z5Lz5gk8pL1Y+95rWmISxJ7zypF1R3vgkWKSQ+0BVU9r8hbPfsWuvY4MhbAnzj9eOmtQikdQ0G/sl/s1 +FfS4i9ElBaOxUAIRPyrwa2G/Z7fcj68U0H5BeKqdL4XwV/dy3YnDD/i3ugpn8S5/gAy0c3K/ RUyW7eWl4oqNpL2EbUo+JVpMbnNaCpDEb17UoBcdMIpK1uk4a+Hs6PMi3Y8a6ffMpyKpGVnDk+HfEeiX +tbeG2VxXh2Cl7XryyMV089x1W2RX3ZhlEocrxIOTR6nUpr+M7mMgs7H2RvAygsR24XC0wv4EhRBAF/ IwZSN1EDhYz64xdgjF2aKic8JJvTQpWz8P5ctRZClLhGNLaCCrDUXo2mghBhPOtBZ5A9hQ3gGe3dy8AD E22xd0XxGvkF9C +FnuNF5GOCkF63l9VtcpR/3y6pZ1k5/Vlyezthz0Ohk3Zpg7sj5j324VvINCN6/V3P0ivlLmul5p+ AlDk274rlf95bmooIA5b2j+3vlGka7bWk8T7pPLTdTyjZXW1kNxBsMqi7ZoYcR2E6eu8W+lOnfF/ bn8b0T9Vdign+mM0W0f4+rbkIHdmSTkMMCQ33rVKwrKG8Vb9sOb7yYW1FIkx1tOqbmCSDhR3vz+ UtapuA6WIrOJHXUQCx+D0bNxnX6Ir4B2ccdFBrI120aRi85z3iRkibmgLIkvA+o+BR1b44QhvqtzKIw/ wkBb92BN99lXRtimQetDhsXHhZemfvKmgV+3NCwp1KsxRpr+ b9hO3wBq7Sj9kgKxqOo8TBakhK8dzDmB59ayciBBgyJzr6e2jKINpcZKjIHC0utuf6s7B7eO3PYOZDEY yoC9C7vnrU7xR /8zDTM17fdhDYUFSMzOpDA0Iw/smLd+HbvW/ VLpEFpYcaGM5YlHnu3BsmKSL4v9uL4rpVvYaRC5kSP5YnA8ndd5mSUEsLvZ+pPJ28x0O/ Ur4ntPRccaFcw+bsq7OLL2+ 1FarB9rkt8dJdnC7z5TH6nCp4daIIvrDj1o5LZ1lMt0vHZz4ZDW1JHQymXp0dGMpVieui89X+ U4jG5uQvHW2M2amNVcayFJVvt+ 8klB4fxOAJEXDeMjodpzupOiJWNjL80tCNqMiM5OhwLiIbgWDgBpAYLV06i4ti+ CTZ1ISoeE7Qdk6v86594kxRSkN2TW12B8PcC9j574v9s7LdObN2Gcyz1uaUv3w2xOuajNHNTL9e0t1Bu qxR5iLou3ry0p7FaizE6MbcF3PdmfUncKCDhWOXPWLDmpvbQgRyjC9Z9bEdhgmpdU0fznFjE /Wxvl9kzpr401S6xaplRHumIt8lu1dvgUFUEFQxa7tSmvUec1zBmWl+ Y2R2o00gFfqrMdhZnpkzwgY2BIdaByHHBoU8wylEBuUWjocBksJnOfsZ6dGObbQd2jQkcAcl2uYQUy38 60EtkGoUonfgO7yIg7MsuXFo +V/ 3Pezdr19ymKoXAqzqOIGzZELmvSGJs7KATC1IG3I1sfXiOTsR9U4rZa1peKXcOwqpqh1WiiIdREp6m+ JOl+NPC/n6aNlWh4fGeVhUgy5yzLuMhxect1F+ 6BRed3Lv9csB7oX46hZBNbblfrfJ09BAM0TxDMASZvkysGJngnaDrogICIXsZstMcCvaeUgI4tboz+ ltfK+uqvdW/ Pz0RWJCyFbBP8z4NNLKs1a00e6Gi1bGWAH7CouDRCggWtqXTahy9sE9y1WT95I5iv67604+ j8tJi91i6ctHJIfI2Fa88D5e7l0FbJP5JfXKvMow4K1fh/ 9TqyjzQNewOSeKLKOQx3v18RmJvTbMpWHHfLY/ f2ri6esBIZbaCWmz3jn1tUBTWLGqqjVmiLAkpSLulsF14fsbo/Zp/Quwh21Lu5ov89A/4H2+ ObY4G3oQdjWbHA9awLLwf40K6a4mgorueOenQA9xCK+dujYww/ yOXw5vWAGFNbgnL5xHchlYQWiQDmGCg+ jLHeeZFkOmySaaWigYLXVQ1T70V8yLXStwWgXnCdSrqL7XjpMOBhvnBqGS5Ai3ugKSnG7LG36B4bKJoE EiFm9IG77KLGQ7Q6UvCvzBX8Ti3My25 +Mbvd3nChNqMvaliM6w06f0RA5+mI6fchU/AGrrItr+ 8taysccpTRWSXLoYKIeWfUVA0qsO30RxBuGmNeeLal0yAIUr5jqTpT0KMbxfebPdjJQ9UiprTCKIqWUB Zmysvg /RLzSobu+ 1HVYLnRjWDpADNHdZGv7KKW3Xumj1mtAJVYJwvQBMw5ijQjEiUQHrsj9wJXSgy8IBaV1UpAK+ TGYqvgEUPAcRdpDE9vpBp0m+tk+lt3f/ GVC6KYti0J0eQUbVlnhVdFSLwmx39VzoK4NWq5y2fa038GQuIPb3ssLesxZTXU1UUYa3yHVyUpjyJK2B zMF +eaSQaw7G02csTDbsTsf4h0nwdU8LYLO8MQfxXtzRBFTRv3GcYB+XUaY3Krf1I3/ jeGfTFWXs6zwEkl6oKVmxjknTINem8gMUYoZJlM5ezpwsTF0OT5iTW6XRrYhUkorgZw2SXIcMYtBWR5+ vr5E0vFRdV9NhiE4qgsz0ctka0vz0ydLifjQFLNv/ xdj3drNisZ2ofEwemxwb9hS1hk68SwUHEpnwB6u75KrQyycDY2abw87krxIDA7dhRGaW2AmyZvl2omZ3 X4n +Hmv+Nrj0lzRxlSJpM2ZJWeYzKTAFDXHhXZZVGFAMzslRL6/ b7GojiaQ1D82WZtZ0Lq2fV8vuPSuXHteEJJPEnSJzT9kILF4GQ+iXFvp+ mgoriRWwfUX2sKHbxggNNl9kj+Q/dFgB6m5QfR46lrcb+ dCl8ps2ffIMdKuMoO7qE5LG31khf2PCO70c2N7E+MExchlxVo8QbGlks76u5u7OMQho3TtS3WQb/ rQfxGSsArAMbPek0T9lshZ7K39Xk2cO+DL3Sn8+4ujnaKQ4jt1h8OHkLBLYRfdkpXJVmJdtbT/ Z4rIS415z0QdJjfEfiMwUz78wesZyFQu2ngUrSTC7cOD/ VNFrJ9HRtiZFLqj7jxAq8YpUpCaRUFNQg0SoBnvI69AHo6DqboIGIqDpG6wED5YIk5cc3BIa3jnOqVfG dhGCTcrKPAncx6D7 +BToTYfyWeb8aenMTCheHjydHit2/ M8Rgf1iHmRAcd2qggVtvVRYqYvJWI3YXY1pBUPFnLUW0xMtmclx0qGjxKVcP+LaUp/ qPap1axG5YxbzJjpWg8exRuQee+ CHHWt4lk3NHqPtwsUEb3pRGDZLXHTWpTaxPxlfcq9ei7e0JgtEXNyH6igOMtRk9hu33pW4AAzkNuTLrY iGSkkWuZS0wiRwidjw6d02xMt6 /GWXZSCUIu5dwNcKy80tAuPWnn1JKp0ph2qKsW4dvx24PITn8o8uyE3sfjuWB2qOO+ FQyeCRaqfglpsF2XagTrn8RGDJ3j+Gc3ttaniTdLsNnDLSXLmWPrkRS6N+ Uf9QpFjqnGCDX2l0ltziWkZ2f48+4chtLKFUcZScANaLNJ1G6XyRRFkX3Ixqwo+ YASk2S7tvAW0mkv3VZC20vT79CPPQpltZty7aHaPTxh1hfOLjuNQMvyi+1QTQl1joPS/ qw717NH3M3EKbghqLXWe8Jpe2gc5Xpi5+x5DoK+JzGp9t9NfYe/ N5HgpmlKlyITqTm5wEnDXpGa4ooFUlBCfsS2v8QrNs2+ 1L9A4eELddJtl2TMCaDikXDVmqLucVUMwH5Uza3KtFtG2Vr+J/FevWkJLw+ NudNFYMNUQ2t9yvStNKGFhWjjTFQWXAEARbaIxok1Db/ jCVw9OgvK93cIuiuYLBMKU7am9wepQyYaHnGDQpQKOGwEfFv81wlQnn9uI0xy+e+ 5r6h82jJGgdlHvaBfQvcowK61T8VKpy0SA7Z/ YBfNDQ2XYM3LXz2eC5fPfjokHjjVzuMIhXKZ8fAnXMido3m2VvKe29gKhEm7h/ XLA5Nk3nb7Ld8akZzSsKFIyv7/CGZkin4NAE9Z2R7f90AgihaS+2kEI4gUVK+V5g1kQhmuwieHMyR+ LqZJmQ9b3VmVhLaL9kzr0WVK1SIr8PYvyvq0V5yU50QK84ALIzvKM34FqRbwEmXWMZqjA4gg3tTI70uB r9 /wB/tKNFnMiRgsLzvV21If512t0w+ AjdvESiPfBpBZNoEZRl506Xyj3dYe29UwAW3i2cCAVPYUdPGYddHGbnxBnf4yu/ oM48Ib8JRjWkff2WdlhLa7G1gljTlRTOKbtDD1jTFXKxCHLW46MNpTuc0UsNfUpqQcO7V4tDEHzS5z1g yOmryNSQLUUMRdK6Cl3zYQ0Wm +sAuyCPC3Kry5IpG6oP6Zp+ p2bG3gamef4VIfiWyQPXsZc626g7dS1jQhrHlcKs6EtNdKBP2L3Zrat5yWf8Zgz2o9vqj3D+ 4i7oANQuaL9LeLDai3MTZjUI0w1LhWQ/Car0fkA2q4L/SVi43EW+F66HhY7T05CMs1W7MsWEI/ sHpMUPr2qUARXhWjgn0LUY6iZ4oz9lp5idfuksSn2YVpNhza8GdTevv8xlpJA3Ru5EJSEDLBzEK1YR1V 0g9HcPWXS3TD5AqC5cxLUbgm4iDbKlR8EeXvXueiACjbxprXKgmNdYeto8FbbS2BKkja05faJIcXHC dQ1uQjfI20nYiXgdEh46zoEW1RRHvfjbGSGJuZEM1CQ3mSEBRYOhXqQ0hoe2Nj8O2g8j75ZZGUnEi5nH EkDyXaOndcuvFT2r243d s5Exvtg2HWC43e531Ej5s4eeL4JAxxHaLrc7qKshT1dfKTnJnP0eMfBXva45NhUbPPIf1Y1I4tXhasWx M91lhmHOXTnVOHniBXXO Lu5AJJ+B/hJ+ 3Dc8Gtu3U1m9F8N2fTPQYHdIyNOrculhfVuKfIh9uuBuMILftyqNahJ2mdnAIou6ic86jkmcsvfg6xCS fuix2qtJGxw6N4sdgWKbdH3OuKnltNTsr6t43o64m4 /1Riju9aKMkUNPZPVXEqKxxbdt9+fb6c13dyp/ WJPniiZPh3E0wHycNRWDfvYzWVhgfQmcIklAP2fCPahKeSWRmlExQmaU2Kdqce5hHvuC/ L1HoeX5MxDX710sTAfe9ypdxKM5V7iQlmAjfWLg5jYpJNK3WjarM+Hfxzt/G95a+FdOsBbjSoyLuc/ x4BplqAKDbyGQ44Z8j4ikp6rWyobtHTV9zl1f2dSyYWeu6w48KWcW+WJkMsyptLPKSAygEuG+WPGza+ 6UcvVi9Id1vXh3XUYGyOfRsxjklgp9auPZCZRNJKbpqs0zci9hQZ6qiMd8cpecmRRh5Pv3BhC78/G/ B0QnC6GFk536/hLLxm2m18+ir7ONEiaBp7f2SFUyjIJNU2jX2scrJge9K9TsXSSDTHU5Qv/ lhdqE8CfhSxYB8PgJXnJw1Ns7rRgtnkSPdPlsYrxsHDlEbTcMz3gbsceomEVjqfw94z5jRG6obx4Xi61 nlczzfvWtJXujIYJXDIditGHjJbDs /sZcjf6ye6J9Z/sb/SHzVnyxic992l6a6PycXMRtnYWW1KkwpvuAUTBdDsHy+ IJS5uXvDi9x4l29dgTieVn0ozT5/ iQMg0TJgTeg2dLzEP763HjwOzg2mdZVm4pdMNTfUadonjvpg5b7dmBv2a5CnLmO1nuatlp0kvmDwX3mP mkurBxITPXumL8VM21IrC4Ln7kzern4z0TxyPpn2y9FcdFg49zpNFfCAbYlRIKE24JG66pH5mUJ Gk6RyCbHlV+8x/PiF6Al7/YUM9pcGOYYzl+eDcEQeg5azSfPhrfTg7xplFBlJgRfolA7/ v077OqDRIxu9JDFTB1pcjW7yy7vfC5BhyPFHUZ0HRfUGoaAAZlYJykB+ TGWwl7A2fV3fd6rxzb5ICcGpay8Bd9Tz2v7h4ZCWTflryU4BYFrhhRto7G6Wv7sFwKwuBta8IDNeJ93q 149p8O2L4x5 +4xngogGVE9FrUTwLNCZGH0mhwNWTw8dCaG5Z7L9a+ h38q89n6hnXgNFUFJvsI8RqVkjoqrwZieyyHCRo3baOEdwYWrCA5ijWfL0n9cJQs98vuG5OjT3z5vQmJ k4yCE4iNxxk8gGqUG7Hi3ahkPZyUPV8Y90I +O8irMnwgpnsnNQgkAxY72dfKg9mltjL9kCIJB4mzsTJmZwojKtD5iWmJ804d/3L+ wdrBAq7IStoont233qom4s3D/MNAl2p1GgS2M+TkP0Z4pHiA3/Y1ZqYRavMX1aw+ Z6ygzrVKoeOok2y29ZAtEC+q59jWq9odhOC47wv9Jhxtqh+ itucjwwfrTQjKfgrz480dvc00ZzHj50aK5TMZux6yVD5DwmaQjJ34hQZvk2RG3OrU2zIFd49t4fnm15k mDPQbMmXxRF59wHibEsjWWXXhaFPEiEiK0riT6Q0Ap88hmB9J +Rtrhs3T8Eo9Ng+HdW+ 5Gdmy9EqPnmMYPg0vceXlpQpUPdciwAaqOIr3R4OexM7nQ8dTEMfCiQVm7eX8dw90ym6d29wwwPZjqnF WIxhk1Iubr6n4LTndyqH /Ez5RS7C/Dzwt4F+ S6bnG1f6R6sy8emu7oNGnuO8d1vXJLLpHMf0TuhADQNzelD4TjVjBuIDRhw2LND43N7E2FTJwXyc6wLA rVPqHgjjOBw2fXXJmOCfZwFEt3DeyocDa0i1rwaMC5piOZEXkihJx88HI26C4noxavaAMzfDTnWaCpGs Y3d +fW9aMfTLUSx1PeTwc+XEU5BVsvKqnyaO3HGeKXVGCC568F/hyOdC6bEe0lSb6ZFugH6uOe3/ OrwoaAQhauOp9kdUPqgmgrAvRsA81DiTkupfneZw+O+oUR4yAjKkpKk6m8j2tofr3tm33k+ rj4m8oxCygi4f7pka6Xh5EYxrKYy7IjU3MVHhAitfmFWYMl+lb5oXe3zuTwzfPSA0U3BLOrXcDm19/ VdEti6jUgus2Ru43k6r1SIYwcg2+ftKq47em7Y7LGOYgyj0u5KARczdp5IfMY06ObMirgf8L/JOg/ FD4o/DZ6amhglUXrYfs4BtSAzOUikxrBK8s4dcmleaG1Z2vkXbRJlwcpPLJie8JIdViIkqUk/ PZKeX88RFLvShnag8vhln1fIGEmrbr1mhEBxDDeiy60if5GR5nCI8qJDI5vZ/vJJCc/ f93LWs43ckRjzzgx372za5AYp+Cllcafs4+8fOYbxBz3sR8cw9jmiHvvVRtW83A8QXnQcSrapyqAh/ wARxx+Lhbs1b4T9cNtRreVKIKFun2q66ZvCPib+QHssBabvRCG1L02H1V8Q+FtWsdU0/dEYQ3wT/ fXQOszua0Q30dtpFR5CqcumH3gtabPCi11qfesnWbuh5ZVjwaR997/tNmT3EJyElYhNXiUmviK+ ghYlZV825HiOUjV8WVnvDrZU4z2zpwv7twXYnbuk8z1gXLuYIyzA3GIaIhq7bpCrCnakRe6mbuxTJeO7 bmmSTD3d1NnTlwMQZuYLWiiiBU3NUL6WlpvgDCpHzvjKf3cpI7zuo +T7/I0ijrk2jPUTgaLvxewbCU3b8xDoGjzS2hnG690XoS5E+ VfgdR9S0efGX9my07E56oS4AzBgPxh3fs9KnID5lsX93CIMrUhdzfhWnNZf6z6VZHMiY4J9Q0tEbwe98 E7FbBIZAL1ZM6RywUFTIL5m /CHHN9Aix4atHAv2p/zf+TP/VYPpflK878aaMWg+E7Lqszen7dhVw5+g4AcOLtUprFDGc+ DsJdrih6BszwV4NZciiPASqmAQsTNdYDH9gz4D9NISSaSGIiWSIYrdPcBujgw9+ NiVyRHgfl8Nc8473lqCGL2NmkaYkqTcxjm2NUgugH0mZgvn7NsXWeIDrtuWwYeEw1HHIniJRYS/AC/ d8voubH105aPu5/8APsv+OhmZI07MXNun3+ 2rs84CmoCJrS8v0myfyxl3xzJatCDaiEk6EnZcUSAUiNnszPVBdG8AMWZ0SH8tPSz2tcyzuozMbWHZTe o5uzw6A36IoiiMSEz22DxuN5K3f8yAS /Ihx6YEdaGUn1mFAKWSYjpxcQw9NBXPjeeEkEifGGy08IqywHMqtdeHrReG7nypG2kJ1SHosJz2TY/ 87UhnVlTnnOsEf68kQAJAnjpLwSaG56+cA244O7Gm69vPmIcmC2X06PYunj+W5x2l+ XgCy2qNwWo1ovtSRSEhvpytSCIYKtZRU26jV8XcuXOFuUHCljcKTZtQezyQDH39GQDrIVTxY3zGFN1Xw Sw2 +zvut0rlTkKKyBP4Rka9/tMTVW51NMMWhpH36rLDZPgmh3U5DcPbm8XWMA5bDSEFUjTYvuS/c+ afPnQrjrMxi8aNXy7Yfiq7jIHsHcrbE+HeISz4lg02Qd+ y927zFowHn8khc88TFycwKLsgXEBj12ldULY/ mWiwAJ3pncX0E5FiiVEoIW8yj7B4DlVR5SZntYHj5JlbGWIjxg9Jq7pCP5wvD7CH+ XpVrPKfsEgimKtEzOSVJyrEhyzhNwLhQ+ LM31QxutMD1YlD1e3ng8qvXOYZ20MqQ4oohGf1ZBWKwZ6kY2NgKhv7ad/ qu9435ocAP79kbqm2L9p7B9djeJ6aV2wphyU2MSVlWwmbetDmJZpYUORYRuYxxHZY13mwm0MvE0/ dW20vCivNTDo1DozYWolL4k1cFM7+YHqyLCED5SFmULDtW6/ GyyInqgEVnAyvnqpUFGcDaqoTP3vOkzVRtlKi1JkRRxpedFjqQTvuOJXq1qhPFdApsis3I5gkssFOVWz lk /vyl1hgfuCxvQ/bk1MKgAmQ5PZnKCcFa9TXHexzSEfBGeh8VyJ0tEjBurFZl2VhwM+ DpZt7EQFTIc9a8OdoBE/ UOrRlInJEBcIYaGVMY8OEhUnEieIbNKicDroSXkefAyA2aWQCPQsXitMZRxlAG0mu1xGspako2HMosP9 xgtgVrg2n /OkTSaTPrVkg93AyK3wz/iREnN4axtcKo3vntO+ noO8CrNfDRsZObXCEMx4K2OPpOaDDsxcW15JMXAFX5GtlmzRCc4an2PYi+ 3axiqo8AIuKnVssFQoOwTju5xtI29OkjNIbShZ5L0M7gO09THD/fNmJ3YzqS7ozx/KilhVmL+ XFhTXAbUJOHxsNjgXUPYyhUpmOlNZmUtroKjr5ut06yLnN/vO/ z5509ng92mvA5PaANlXIZXsyODR30bdCvzzHo/YaxY8lfJwpFcBUXLINZ8PBh/ veJoHs3b4826WOCIlsIqyIqig6sYHSsygKwMReknqWrlbsI4r/2yCixHwDvcbE0WB1ZIn5/M+Sclc7s/ ewNqFKouW+u34aY3wpQK/ip0AndtGxujpd5t5+So6BNVl/ Y3pkz0u2lJeVs8QRpXfXcB2ImCxdwoDnOl19WXyxy+VK2VYuFDwMEAP9mRVeYDWUW5l/LfMi3RXfYO/ Qmv3LkMQ/KkdtpDpGG+f8hISkbqvODVHTUwMTjOheYeS7xTMp55R6/wCEcwjh/yBW4x6ha36tag+ 1WZLO6wJB2XfkjTzERUP8vMws7u0YLsDJiJlOQuPhuDAV6ey21PS85F4VI99hG4g5u98btUPwM4jqhz2 ryaU6hXOJizYqAMGyy0jjIlCEY9ID +Vxj2BB8C9R3awk6CqnllcbXQKMK4uzlAV7SWBJatatH0P7LT5obK8OhqV1t/bsF/ ce7myF4RoMM2dfNOCLBUP3UzHTUXTUeqEKrZgjfF3KJEvDQUxBCjLSfp7eoXYcYplXcJdvKBLXBCPGZq Yk +3Sa6gkfPo+zs0/0h6302gcL60pPAfcnd7zjy1+Nnu/M/HbQ/ 5HBi345n0oTbkB72KaV8ly5MK5lTPGT7mJ+r2TEtbd1XZ8dUNWWOooBGqo/UX4E+ OdLUwN2NKLTlA448d1nW88OeJIuCMI8YCaixWv1z+8kKM+KPSuPrr2Z3+ muT8wzd1Rxsmh3aeyCFZVYZ8gzBmVKNf9MBkfMA87feGtz+XBjBCcHOWZeoBIAIJHIIAPH1+ GlcB7Rs1XCrKoHCtABYiHc2W8RwCJtkuvuO5VmDmB7MczoyMjfXy9eYPTSRQmR3xZRL9z77xaEz3r+ Uyx04lq5z4d9zC3AWV087wmkV9Nl07dKLaBKc/DLRCmv6KIBttA3NiemMQi5xJ5lg8/MzZOVHIGMHJ+ crnSPVj2Q1esgaXvxCCJnBkqbubZnKDY3eBMT4qNUc3kRQgMKchGHS6dEplm0lF+ 8WmRGIPZHPOgTY4bUzFugKfQpSFdTqG5PkQmkK3h89lKVa95W79CEEBnAe06uyGmkuxpavWO6xvbPNuE KOx07uem3hlia1whe4BCPfREBaft7k2QO9YlmMIYbQFQ40WhoOjdPhOcAifXSTcPWmdROPSGP3F2hiAT 9Mj0 + sdXVflpCWzmbCW4XrRNQteUKEexpqECh10PVncdqoXYMK3hrEuwYiBEvF7FrsR1iskOfEEWRca8Rbs0z Nb +i47wf8bNVllVHE0q4V9e/RXt00+Z9j2rCjpNcGL1KGnh9eqIYdGNydVYrJKOy7fmKEpCysFXmF9+ VC5Muo6W3nvKfNO78ZBvQWt2KgX3LhiPo2YeQHLjXEOKGj6metVfSpYaeKgl1umnd9Blhr4mPVykxOgW eCLXtSQW /mOUMemqVRHvJ4/kRBYShSrOyhOj2dwDZzB77CUo5KWj7w9qnHBx0sM9wpFan21PvQbSCoQIpR0svj/ vKEjoSX9yyVtjB2e+Ltw7PSJly/X8dGZgmj+XHD9wUpMGi32CQc8npubYVPqvBzr+CNB4vnVLH8sZP3p +Nqb0mkRVrs6sxZI476yyLWvV29eh9cnYO3rq2f4tnwQY9w4JUmjl6AJPMgquHumJnvPxCqaaJc1R4w+ PF3lIeC1dS8nD9wB2eC5DHJJL2aBIfWK7lloeRA8YluwvnjTBuHQ0JzjbxIn9IXjKjUyhFyrS3dYNwGz 8EwrIzfVGyQ73sxZv7IIQSozY /dKmVYICiwfGsKuVYnZdlzwAQA9DVmlu+mS7ze8D3fxLQ1FXUYiwHQbF3xTTuIfO2584MZBD+ VUcg9ys65asibh0sAzD0nx7f98kOANV99uMP8C3SHJVsaRKQehjA3SfB4twQc4knPJ2iYibDRcC6e2Wp a + RrS24kX0UPhBFkqa6iJ2f7d1POoTcLW5roJAglOAklaDZI9kvybVhtNMPVgkDGEKCmkiyrOfSnaj7PiA YpN5Yt08lynLM9TN /kBwXWOoCZhXZyWLYiWRMDTFTJnmYAgzo24Ezp3xp/Juj6eQebYh/qBkuvh5Xe/uY8vK6acwK5M+ NLbU2dCi7r+FvBvh+ 74wWB2TOPGdf3X9y8P7PgRbGi6P6TjCc5yQs6Xt30tB4KuEy7wXo2ZAsvHUp9kCiMZA7p+6351kR3FKV /RGxyquDuUsAhsZuCo9XDRcAfBwIhZmmreH4vbjo6PWOtXgfI5bFEsM/ Rs9kvb2JOYuUa5sPivkDj9C6YT7P011lF+eky0P5ap4Gqrsv+ e7iKTPuxgFZgEAz7jtaZqD9z8PCawqias/lj18aYi8oXZYNizVVcpAWqGsa6QAAYI66l4XOGa9/ 5K4CvrD2rPhqNDVDBwf/ 3rjfuPihFKqkwFpCoKSRCpmAvCipddabtTNsPCSy4zWnAamAiiMT31VCWOShL6Rb8Gcp66rq2J3+ msvQj3Wlo+ eox7dLXDK3vJINd9GVHGPrSzusPaXqxEukdoQMS9FOxr5ApLYpK7pXPXY3DGMtDZPFHzgLtZTPePyiye Bkjh9dsXsFnTd8cyh8QuG3Nf1vNCCO9WkDANmCJV1nRkTNSji6roelCFu9 /zmEvtXQFDNr4paPVw4VLQVQHD70ADYKqUQFP1J7QFKneSE3fMeR6qqS8zncYIwoj+ anzb6frvInAkxWuGMdnP9dBJW9vGZzpRu6cbpyvCM+Whlss07b3kzexC4WMdRu9ww/ aJH2GIX87167ag0sM/Xn9iD/ylu2HJ71e2iKq2d+Ff2y9I+H/rm3HlyjsS8++HOofDzTfG/ lcwpwU5rlupk4R0/wOSq4tebL8I11zqAlxp1pP2Iz1rhvouR3Xm+2Q+KcdZ80ahqHeQnE+X9oI3Nek7/ Sg4awM7suduarBnXNyq3CF/AIP13W/ L9fMWaqVZIf7JPv0FAjS4n67x9YrLioOOsxG2xF68vSrSdhXLB69zw0clIEtkmMFL4h+JtCsrvS/ I7TxbCq3Jm2eL58gLute2AuboQrygIZvzzZBes9beptb4c1futx3o6oItZVQ2gmz7AyPPU0bLM2eeWZC z0PyHseGorXNjPIEbtB83eJ3fAPIZ7tuH24bdFv8dgJOhYlxjAWmshNs41un4LyhK8tS +VvNyzJMznmGPxUs7+s2HgDXrmSfqeYssVCSlh+KEztMRaMJLhCPQrWw1fe3E6osb/ AqZHwEwA6vd5SDDYY8XJb6dOSbtsJSGGa6g/Oe2TCJrWi/t8xqC5I8qQ2uh+ 0TzsrcvWaYBgSVWagwxemW3dV+g8ugg0ntyvIfEZ72rGqdGIS6pn7H0o/ BG42MFnKl2Lx2r6c6UADEfgA0nAd7ifvn2t26mxT2uNzIpurfjnisL0NzGh6mVgabaZZQcLUZIkFPiIu 5SGZEE19x8H8C78L28qyyurWfJ + hyT90pmXtq8PcdHIPDU34SWTG7douvzK0idTiwWJGwubvr08l5fnJyFZwPQa2Ragn8k39GyNP84Dx97R oyVux2E9mW8PdeuJTwbobPdRK2xbRxxtJDdQyjf8gyCCtxgYD71 /tp/Hb4i6x+z/wDB74N/G3xJqH/CttThfUdY+G0bl3Rgo2Z4O1vrPlh8l26iyq/MV5lJ7aZ8+p+ VTCr2Jt6Tr6msubiMoZ9Oc9yOij227W/4SK6kr+tH3lpiWkEda9/YWu69M1O+LJR4NwU4j4FjYy6/ BNtpDswBRnOMCsnYzhAE9qi5NLM8vfr0G+Ok480ZpTjLrluissR2oqkLYxAoS70jsP/vfiK+8X+Obz4S /Ajxhc+JoFVu5gy5i+AXuCti65Z6fMlzP2s6J2z0Ny9e6X1F4Gjslv7D9jz9lDOHBmIPQgwJezTAK9+ l3IlF7s2G6cwo+uKoMH0y2Zcq+Hkik0cjbQTAHzzrZMEaOCm/4a6cSsOjC9/Pl25AcPm29feqhVYwA/ iqw/tqeHx5/wAJNPBrek+EWycdb7fL6rNM5NPNoVs7TR/s4mTDDa0XcauYNxYe7rf05a2+ TmVDatnvhqKZsW3cnwNoPiwsPqh14fGwoGxTnbzrJF8Ne/uVQk1of2GCUam3+ K3p3DDflpDD8iDsVdxwC81DHCfww7xXNBsTlptT9jca9VK1rDH9C3rfW0KcFNWJoV/ DqEuOqU0RJNk6YQuNYyWcxp6/uxR75ZXAfGu8LfsExIgpeCs2uzwY0nhD36UGFveiE3/ FLft1242HIFHpQus2fK9vr1zErq5ojKwLvwb5Gb5E4rQk2OgGtSqQs4igRVPFzKnTukHciF9AQ0Nh8g/ jLD09wFmmjpnoYZi9h/Wwzubeb5ngr0AMz40+Bk90jR0njcZHWeD2+ jlsJ6CQJQuyP03peAMz45XD4bfi5zcY771r9sAUqk65d7+wyCFeDnQMO0Tbsil8a5qwuPhbLff+ tzqPjlaaXY+RgFFHsotUm4g01zly5C+C4evJcW7I+JAjcD48y0S3eJ/ Rfw74j6y6QaHTkgOR8x2z2keAgnJyxdkd6InPIEHTO/ JMAvgTO9DSSFaHoIYznmQVGB8sqMza4hYvbIP5D+O/+Fc6d+t28ZQ8CB7Q19v+ J88xGDUWaCe7eeAPsVe/En4/eGdPPim2/qZLonN2P21ahy6+Hg8L+Vz4Gy0noa78p+RY0BDNhMo+ ZEmtWXCOTdP6KgtiHoPwvGTYzRHfDItRAZhXWOSukPRmgk+3het5eg/hPff5wy+ GVKYjvRBlLKF7BHso0jDoJfsIOjE6UiwmXx5pCLj1H22JFHiiM5qX6HaCGYpM1RGMzRv29SpmvzsBQMj X +D3u9n77c+LNKTf98Z14wLaIezc+DrPVbTSvC+oKqnb8A5Jz3i02SnGbq8rfJVE/ dLO5Cmsk9nIlZt3dx0xYYnBDThzo21tAXcvazmFIu04sAbDbvl8geaKCGGfNsuyjho7KCtxCrPMv03oK 27K /utLvZLK+dlJsgC9fChi6OTfxRzdcL2jHJwmGTapOkGdaN8qpZlD7ml2x3u4s73j9/ XZ9bOUuyGQuo3f2gafb21qxK4QP1O4bLbFyYzpCoNISABX10EzmlMvdHPw7zS9ap99MWPivMzkJEqNG7 I3 +XqFY6WI6VYwaCjjAU3ScULm+ Hk2ymLtTV2kYSVyUZ5GpypTAvB1bTsLeleVuLmGjTMZGmQzEFEBpQFw7Z6tY2xEZdR0qFHGVZWO4LXgl h4GxCJOxQBdx7JfzRogfIv150fhr8bIJX0AFbUkowxYEv7awIbv4p6uwxJI3IoM7ammOHu4LyOMRNLwB v5WiFV9qcJ0t2w4sbWXBk5Oy + A6yHnpbMGQYYeb8FhLubbQQNeEjAxCRnBtVUfwldETuSEBWxBBmHpWUCPHg5rh9sgpQJSFe8EOb6FPq0 c50etAi5FWnj +4yS5ZpLd9tI6wrnS6e+ZpcLOvnmUtIa6n8JvNzUfkEv9kC/Drkvg3F8L/D/XdV+Jacqueline+ YrSsvpXkj6FjKJubrgN6kKoJPk8jythrIxh69dWI4qzlvxrMNVziytL5s19B6sua7Cy5VBBUBilcHy8g +HUm/tpN3r1wwOwcxmWPyP+76sdLw2tAlvDJ+ZdkuED4y+K/VXx4I5GYhp3d7BEV+ x6UwWd524o6blx9lSjmCwsqCz0zbc/Juan Manuel+JuRqjE13V5jENa5CuAnFvUHipyxG+H5ptOt/wBIdN/ Ry4xO1DmQA2ram+LqkmdIjcj5l+Ymdq3Vqg22i55U+OanW4DpM4/4j8Q/EzrUiNTIL7DSdMR2D+H/ GO1mPZ4F0EKzwPzlKNRCghIRZ8hxjplM9uqd+4+DFr4N+ DffceZz8Cea5o5ZAvZ3VanfFcKpb1YQuKZLGpqOvWw+ zCLjRmXa54b7QgVxH1at1ca0eraTJI7blW0Dl4+4b0S4Cai2tSb7U+SSPGi6fg/WNFygkWB6y/ Iq6d4o9EfOqCrG5h+HYPbI4I/uS9HrmehEVgep2Bpidvow/sf4S+EbLQXwI9x2RbDgSgvw8anUaFm/ XBI5BAYb/qTqyJvO8M7Wa8x6Rfa8XRWKrL4YjgkgE4R1lIgp1swjiau5Yud8/R951zYJI7hBJnXoys+ GcRxloP5oGXOS23lur3kUwVQfcg4zpNhWMOsur3M4omnx+A9D+JeleBfF/iXwHrHxW+EXxasIH+ A8rc4P7u/hv4Q8Z/N16vsiK2f0DUqr5R1wRln1n5m+TxpIY9QDA/G/iNfzX8N1n4voUnG6ZeCygA+ WqlTjEhMKn1Q7g5PdiasJ0t9A5pXiieuThF5GLxruMqWYEcVg6FbOFZDpoQmTRZmKvSRDAikbcvcn/ aYGlu48LZuTTsk16mn8z/Tgwc2io+VIsH8nfM0s1fdUhdc5CCR2l4v1x5czi4K/SLczH0ewW7l7iS7h+ k8TeI/i3o/evOdNFg4Anm37WnzR8ycf6AjIy7quYnyevOU/ qFtnA3UGzq6lUPSMd7xTDdApxD7nY6hORhL2YFtxVUN6+dlmukM3bs51C3CwMY/bw2+ kO8DwAtxkLSzn0RGi1TCw+FT64kW3kMrZmq6lgeQ2jUFcU0GPZZxorixBoYKMU3+ PkYWqgIpPHdfN74DDeF4FXoMsZrFVOgAf0kHet3ca3Bs48jyHjY5ucnwp8X+ uHLCxQ4zjMTo0OPiIhcTX78S1sf2ifwL2n6ji/C0Vpa2OW2JSGUp9zk8iwAG/ GOADgM6ADK61ndq2Q3o4je9QkQR+XRzROt8D972JLkB6Yni2Ab9pJS3B0q1F8r4UqTaO7glZ+ dHpuqafewx+ICKXctloyXz8ybX7tCie6hBL68/33L3F8zbcPqDcvG2r+ 15GAOxoyFWjfAaPu8LUiQ0Pafh7qgTIz1lDR8q2N8y/xDP6S8HhHDBVO/jWXxE+ q8t3x5ngLiBvk572L25XZW8QuGN5ux7jvbCwC/ DzvkB5p0JrH0u8XinEoa5b3CHQ5RU5Qk0gTVOTAM12L7Ckj/e00+ nb49DOfiq2S01wnUzoZo0diKrA2Qb1LhbG5XcXPZ4n4LNmU+ 1Bxvvfr7MUI6ZWj9HnKLunQqijDTAHJDpNpAjZddn+n+ FN7LwpOPsCeUdGzDnR2QDwxcWPO7MnyJ2gcvV8TZPf0kHB4ITwfZ3cNzXtzE+lZk1w670B+ R5nkMNvExyTUrQq2PXlO6WZHbr++pRPl7NJFtQxjndm9CuUTDm0PnQXlw2Q6Pmj9yBY9M8K0Ozz+JHg+ fw3p/xh+F/hH46/LsdOJhD4zPxDeaB7prw67X+MKu2D1bSA/ YjyNsw7lIduHwrYqwbxM3PofxMMlp1RTZCMjgtsEXL4m6LH0dbARfb4ZArZwQ7KzJfLRDdbNG1vrY5Ux 01BN +6m30sph7sJe1a7N71ydu0+BHxd/ZS+E/w/+KOs/WPfY1yh9Jfbn5OfBE6HFlZ1p6Htfk/Dd9J+ BMti0GaKwCYAmhV9b9wqx475Vp46IDvjeqHPnwh0+VEu17j9QJwkf7Vq/iBTkiYz8isQBX/Zg+KPwG8B /s+8j3ShRIvSqm9J/bg+DvjHxM/j/wAC/DH2Popkg+0h+eu2OdDv7kexW7V0wtD8Wu2C/aM/Z/ 4YYfm1Q473EE1wp95IkW9ScC7FwT7WynufhbUCf1HyTvN1/wAL+Jnrdu6e6t4GeDV8H3q+ PwW8G2x197PxCgsrvpq+Pyeh8y4piItK2d078ZqYq26Tti6y1Pw2WfaYg+ EkpEIKFnqofe89nnvddnfput/NImavLtDxnY7y+HPinRvE+rIotz5JnJcN5o+CLc55a8Y+ W0G0xFokEJ6nmOnWk2/n9v2tSo5Bp164e1gaMoody1RtJy1Z4bDPEi6/A9SYETlF3LQSDJIId4VlXxex +0gqr1Im4fFEyT5d1wjlDkHJYlXMiYaYVUNtBtUMwl87HPa1SYgOklm3AQpZs4WcXrqANJH7VGdQ+ 8nww/Parra/Z6/pU9EnBitm86qqRm3L/H346+AfG/tj4R6wyG9fn6FsN/6YsX2t7YgrOi+ I0G6UQCfm2NTZm0AeAmlzY/h18Q/JdLyXxbtsN0XJRpF44lFHx79WDHMDqtrA4i+ZvdBiEod0K/ Ql9ypN1Rnm3M9GwE3pvMEtj6erXHQV2Jin7A9596Jr7x+S8Rg8akajPEZgr7H2D4qsO18f/rsupi/ 6bG1ez208x/jwuf6nmIata2/3MRamM5moY1A5Pedknv+ CyIfKfCioAKvucwz88P4bq1jSTG4quakW00AK7gnbpWk7z2Cj7lzn64fg01bWm30fvsKI9f+ KKki3m5GkMEss53SkgdF5ndhLbYMgOdpT2t6QitgAuyU+xdZnjoT4PS6cf4Qlbt6mMA7R/ UhKe0qjMlK8bMgEaGQB6q+ZbIBBP06TEgC5VGlCvNfHoWnQKoxAOmdYbLfvs0wbKv6I3c+ jZTq3MjckGvJBruQLZxrmjxBkLHpmn+KRaaEofRGRXuvWgAwBxcwSAkkA8iHhZhXQD1biYdd+A/ zYxp4evLu2gX5I+KnhnxTongm+8M+SnE04P6w3kfdxz69m+ JLtGxsS5JHhRtPs7J3z3Et77RwRgRXJY6Xf5RhnNnCHy3+i+RfOEo72y4Cy99ssZ1nCmN1Ol9tJUs+ BpO2o0iyDa1KwjCuaxfu4Rm0JrPIevq7uDW5zyFKHWXtr30M6LQq44d086SPnKdKAhqB+KQf07Ipoc+m +Vt8L5V0aeub7Rs8AD02D3Xo6h+HypWv1vdgJMe+ICIoIH6e4x4rPxHVuWrTz3t0dk109cEZwMSKkpjt /UV0g2Yt+i74g2NwGoh1DlN+XQyU4yJ/ FJgu7k0qgKC8Q5OUcMqnbVmRnwT0XOxEAy29Xl6tbOfNXW7CVMauqRmwMuAC/Pi09qv8k/hFb2/ 2exUoS8eKb1EADU9jVfIOec7l80x0zt4zI/ dqfMMDJdY4gJgUxpWTL4LyNLpjYeqIuG4YnJdFHAdLdvEZhniBqCeEAkw61hq72mlXznIbDiIP9nOjq1 JvIbfgh1UWiw + Xfy0yynLvN2K0pQqZ1Vys7ybpVM4BPQsObAs9HGZQy0GjhL9DfvXfmTcnScudXNmYlmuU1JDIsTK0dQI cDkQBRuO / Dzb4WJRbLK73wtOZRz04nj7PYva9JtgFsusbRE4wSQwNzZBLpN2h8o2HNbfLYzggL34CcVItA969ERFm n2LcBjJponHL46EUEPjyIDDQqMsfaLmEF /1vGppEaL3gx1hdZxl193spit+ VMlIPTxu6Gpn9rGwewEARxoaODHtnk4figv389i7Jx7Y3zjwV2DVjCEBkeesAmmhBtPziI3L2p8w+E/ VCR4jJyW9h0xX+8L+ MftZqf7gXtLbUYmX3TwszMznU9IcmkLMeraceWnqEx7DanJQ1LSNgThmvRxkDsVfydDYz/Hb/AMEm/ zYpPCrks1s3Tsyfd0ejkmta553Jbzm+ Q6e9NGbcQZvcdLQlx7w8A97Tbe9f8IbS5XuBfbX2ymTn1w6Obz2Z+AZrnxDpN/ 3X91iAo1Vk5XzYwhSBIbPtdyjV2GzM3ACbMP3LlRCQWTwQ5PbngAzQNUZgsgqiUEj0kbo4gaIZnYPT5v S4JlyiM4tmOoKFfYxlsJhNimc1o5wVWdKs9gILqAYw /x2qxj47G8biKIrW012qwVpoP9jccV4onzngiElMlXgiPK5bC6abwgDP+ yexE5tRNhP9WkRHcYyEtPjeGY0UHxmok8IR1qB1xvjGoysUALRM+8fOzuAWJ+ 94OCJxR9dR5wx9y3ns2m1KIGy5KSkaw/ 9uaUNvbJrhVbGVhNBrfOVC5qnim8Pfchnzt5m4eq1ubDDFbKyrHJzz57NakG0zq9JHo997VvP8NjkRwf WX86H8jJx1lz41ddLw3XUf6K9GT0DvPS5M9b23ry48SEKu1PR + dRRl42B32Tm52YqoowOzTxYZ6zLqAALgCMSSHRdVSdaDdcQyZh4E6lGUEKLVAyc4aH2bWufYadawuKzk ACl7PkhwCdwqB2oe0UG878DbT1uSuG0IbnqsR4NMM6U9zZdryQZSVtrjqPe4BZHPzcQjkCNhkrpzhy3l nZ4ZzG3Ck006R +h0AlwuzjFBWENgDeAdenDBimdjeEXSF0tpry5amgd8dla9d0SmHtf236AQwNqMeY5TtIczulq6JC5/ alkHGmqCp3Rqc1ecOIp7e0pdmux8bKfXlYUEyDZ1uYBd07mbtdaFLPNBpXQ6WaOGfYYZHZuyZagEsu2c t48tIRVPk67pN7Vb6iW7ZCxzNoDUvfLvzjkH13t5W0p + E5uEzTQh0xsXZwYRmsfmzy5pyb1pE79TFmYthidFwLBRNiLlyqCaMzEXwgeUF5a78450AAlKKlAfmNQb RCNtThVRvP5digi2yv9R71qTqBPBkl0OxNBX2wJzQhK7xs9WnRDqkZJEex9 /4JRvoTyNXSPcP6cbPWh10m6+dy6Havh1dZqy3cZs1rFqK0IVgfl0/ VACWzIhJbLYXjwu5jAdZl2pDSD8jmY59SndTUfVnlyQ4RDHVpUIlfuvd2lhfI+BvA2lOo/ YIpTo4zYE80cVNTT8B/ 8hcKErAzAqEuIkwxJdjgFJZD0CkpboPjWEqcrhAm7dZL5vcv0HND4s8dh2CZLvzWmJsnm7lSKQqjqvDG yNpCm968BTw9fSxafD3Ub0ImL2Dfl0M9iVWYiwPXX2wnzgdd8KfTy1SgQGmfK6C0i +Y5tKVAj24mkNZhGyiQJeRP9gHZKcvLP1+ Jkwh3wsDF1ZqxdVJozeKxYIb1mJz7ufdgZunZlOgGt6cGnBWnd0LARTRvBZ5Y2U3/ Xm6VXxzFTy4q881x5QmzpbF35c1HcCNTyWBi6qekSDxItom2HDEvGJzWrDdgH2mca49/Lb7+ 2qVdlXkgYQkjT188UCtn8HQJtLY3je+ZlzzM8bDaIhGSuKfLHTAPDgwGnXzr+YAgDa5+UjdXnWv+ QfHb5u7pvTs5ftdL9BRWDrkvrjSBjH9C5ntZMOPUPy7Np3x92pLJrhy5Se5UktfVL6eKi1cVXX04SQnL 4md7RQCQTk5wCrhi8bxbXZQVFq6aziiKVYQRYMRtyaGsKJJLPc4MfAAWYk7KlqZF2dikbdioxiV1y /a3sKIx47USSS6hjowdzcRor/ uuim9cgiwChQIEKEyymrHKa60EPSBC7OdO98BfGtLQpGXTVpJMfUURmP9wiZt90eC13HimAC+ Mfg9G0hqwBVWErxd2QWAP0rGO3z3PkbOd4x8Fbu59j534nJCc88yy7m4lPghS7BXkVUSYfJGlTJbJeJr zZPU3lvDnE1A9VAjP / beIMDq1jilC1A8lGu5SiN84IMIDdhzWrdOOhdfQPd1z33gb7u2eWmo3SyYkyXkA8sqZyZRri77Yei5g2 oT6cwC9PU3V3ThuAU1hNqu461F /7tGFrUK4OAl0+ SDHZaNLXM2ZDzNcVGVthrcnethE44cEPNsA27A2sMAkpO4zRroTfAI5utAfgY3NsO7ueqa24FjjkLoQ5 sjhaS279vNTtYMHYGFqdhu2WFb7ziySy5fEwGpbUed17M +ToE8eehon0ZqjnyDyj9IJkqGyKHAZfrESTaukl05BOpGTgSdp6abbQR13Q/v0t+e+jiDhz3L/ cQvDz8yyr6t1dbqyb1SR0OhUjBcj81NGUVmHv6y0irUPhzWyqI6Jxc5pVm75esJ1YqrwzJjkcni3RbWm xhx8xB6rOmkEezlfmv4jtGabpuTh0sncXrh9t +DamEAhou3CGX8x0Yy9w+gQIhcnNYMlYk76AXwYzuapbXKMKIbsPDiDliL/ f4g7g1ZgtmGa9bf0r6d8cnfswTYVlbBtaueNi6MyhBUkAuGLgtYxrZHqYF84Zkn3gPM1ln2h7Lq1rwzH 70 /Bn8U6QbfB9Mel1rhWSr1YOvBgXb6PWDPqK5OCnc9avV78g0ydiWVld2Ch/ Ki2eNRD4tDmeKfXf1sCVGIaOIBqv3b1RXdVwiiuesH5Mfah+ G3PSL3JEsmAcPBgPktnyrNpjBTocOGAoeeqarlUkEysoHfEDbMxIzqleQLIkt2EbOoBIkTDjWpntzCwF kNtEnuMfsozb7Tcz2jJ44Iy /El5qs+ oBH8CYjlR9qwNbFUMOxv0d1yynFHNsQnf3MRh3YXaFlr35REwHd6wLDbtPfUeqadxrvkOExGDFsXH8Sk GTfsDccXt0Sfy6i19SlzXZq4DWKoXCUhSComde8Z9aPnrRbbD9ChhjwWhxwhyHq9fdqtwRYN +1Fhpexprbp64Z3F9O6mTCMYkbqrtEftXLH8gHuSGgLywJNNonQZRYX8fTOM5eTDz2cTkfB278gwD3Hs /E5u/Dfia/Pbs0NFe8f8kYAcKEKGPoGqtJn61cl48O2ZjTPWIF9WZv7+o6tY/ELwBrOi+ BiqTYkdJO4Kj9uwviJtckk0yQoxLPSHicPulKJGWPXDYyDb9H3HCboqmt8QtKRD7h0nkOF/ obbnepsyGfTrJ7R209+lP32ghDoad0T/Yv5xVA5UgUvpIw6oA3fkwi3+ i6VVqnbo6NKuMspuVtb8nHePrSCedIvnU42r0smqsSCyVSc79U2Z0kG/ cNeSsq1i3xpuHaEuSnnpOweG6x8yhvceAy9xYdqufAEAXCZIfXfLOdr/Yusz4D9TtSdWC/ 3S2989679ZKFLX8q8T6mwUuEjwZtV4e98uTXYXQkTx9/fQrDu78Kpkg+nz+ RuG23YEidrtMlJzoYM1YFYscOepcoI0sdigEcMWqyjWAmAndXDFnZeCk71/ kzoFkCfTvUgbSNx2cWe6cNiqb7r9ccWUzDbkjQxGLDnZHhcSikXo9/ z5jeSvzSbh5JUyvBB23G1osY6gp3qvLQ3SBMqZ0zTDFwKQUFSjxYMk2ne9x0T5AmQELQRoNAqieYx29t Zb4Ew4hVlsaAH9SDSy4McUcNCDbHcavCVF379f +F15G0ZzP0oMNSqoerfqag7nQTDUyAdC7ZL7bfn8hfDWPnvpit7u80h+DeoNp/ biBB0WqgoPYSLFupPxTSICdAzzsuDmPfTZII2zfcGFXCAWvGoy7UNHMtPnL5sqwfg/ f9sEn3fbMZE3dADEptfxzD8VJMvje5pwlxjzdmau8yf1zCYli9LzmhsLe9O0j0dCSX9cal0FQjPSxSqA dAgKv9jokFup5i345 /52qpukFokKrqvLB9AfgYtZ5igWuRF9jjyOPwZxOmAQngRRzonQA+ DyG3sUIlNiuwJoJ9eiURbQ1O0mMYP2FxBbBbbRMsrmiIBwK2hE5q7P+A/ UjlKlHaSiL9l0Jayobfj6PJMY0PD43DXtkpt7gDLW8Spgfe73WLmRZLTPWkVMCRKA0hBq5aeE63r9skh 63MYaKmJ4mwfX0u4yCdv2Ki /yv8YCd04S4lfrle3Mi6cX1xI6/OQgTODZR0yTarVbFYkqzH4U4wrmBDC0zclXZDffWTXeOaS+ a1r0hpV84NF8bjdWkgpIaVfaftWXmumNZH1hH9ybiFwAIHXi6jRcp2eM5e3u+ MaxYfrRaCi717jUquBFLDAdPQ103kqdHjs7vbQPUNLMiNGeLWu9r+DXmAm1HV+TdE4qNAmSj+ KTfK8Ky9YezjS8NW1AXtQjUnn2zoTFUG2tRTb34nq05Uc6xChN6TisOfc/ aDeHPkBu735vTl5EjM9qo2uxIE11R4dyNotaGBc46olQmpb53kb9Fxx9p4JBkWExVgbEaEV4jYDA5tA/ B1/uLG9NiFUEDhgRUZI2K162BRkCGXCxpzK4G1CHCbmPgj01/H+ ivZxA3U3e7ntVe6eXxU6jjwKrnpqlqhEY+1LbxW/5H4mfIMlKmuzRyGvY7KXLwMID+inxd+ Ed4dtoaSFf2tMVDC8rr9btq6E2UdLGEXhCdrGzn0d01H5tKC+ tSl9MrivVMOxmrYXU2WVv215sLRuXbOfC2n+4gqfHk8uU0vUEqODllB54tMOg2LDrP6+ 0dd49sm2j7hPNcjzfSls9Ecnyf0Hig3enhj3ij9zjkWdT1s4z6O7FtduNjgVYyI6e9sFNhHbZaIsTLQm JDxVwY5pnL3FqbGTesb +inVJpDwtv32fvPyQovuFe7M4fvMFpKeltrf4hOcnfu8oLqnfeJXachB/ K3jvol9c5RF9Wgu77T1Eq3Bikz6zACOFHmh8bmLzQAbO3a59LMqQaKYcBzPhCigRYzhGZsElfyooOwR/ uTMZ6v27a1V+jhyJMahjcsrzHhRZIYj98zuxB6pIAuwjfGohFT+y/gt40+Gmy57Fb+ Ew9D1c5y35G4k3gnMZbGpzJ5enJ3fqvMEXdVAA9RuAl7nAQC0GHb3TMtRzR88NIgdmmDqiVpkoWaztO+ 6hprzDF8AWogZeja5KhSlFn2UBRr547onawwpawWPem+F+ r5AubNsdaBhzXuNPwfxCm0gWidGigJudImyuW8Ppsl1ardSkoufjmgJ5bfYZw+ QOA5d3M1o2d4JeRxQuyC7OzfkAg2PbCka0b7gWoNKJ0X1ghq2lGK2WEBBceLI+VRGW5bgEE+ UTxgzP3W0P7PVlsvytHCgy5Yjf3crEGLaV0Uv/zAoleHxUqE5SuOQamuqme1hahkSxA11A+ NLfViJ9Is5Kv0Rf4pagVS/ jPfq5fs1C4Ib1GGni4zYZ9zD3sTHv5wDJa8qHR47tjwaLu8biUOKtkS9B9SrFbqp7Ua0wGdAy5rx4QSy 7 +0lWrJRC5frQ8dknO9E5u24tY3dlz7iLYa2B9Eq8c0HScUSpPMFDkvWbnPcAqSBNIn/ st2pbglDiuoQyX2rj0LGGBP7M0eDkYYit4x7if4L1PKKuO7Aqmynqv57d7OSoNlGgX8As/ aszsubSAFug2ZY+m/TC66o1l+Ux9EZ4e7dV2qDTKFM2wcdi8+ PTZJJeKlo5WT5SgxnjKDHBpuAhOW5vnJ4QbJ/4S+ bv25E9MhqzteaWdtMSDCpN7ama5LqtazcpfePr3bOHNMDD8AkcTY4tIEOVVR3yXhq0H2siZoQfZ3Ydh8 38Vx9caRywGyD07Nckd8X7ob56D5oz +JE0Tw/4zg0/SdFj1/tYouecc8nBAdN5nwZz9Vmp9bjiizerM7o+9OOLUyTFP7Kb0xku5EkBrMOO+ ge2f8J3W31uc0WBe19rydje2e209pi5xVsWeINJQ6gYZJAcFZlc0uDGnkjNrvZj4Gwqd2y4f8iv1v0n8 Odu5jJnTaR3wkY6kfN0x2kP8m1nS3hFpYqmmr30WT7mRc7KQwcNnuejdtxXgIwKd2P +M/COi6o/g/ uDb4jQ2gr4wApag56u63TKsKAOPVYxXkqCQSeGRi9ZgWKXqE9zDRjK5Jsfqd0qjy1gT706Ha0n9Z3k1K 0J7vFdJTShDE6S0wx2zQXOVX9DxAI7auWhSNk5npDMYuy /CVOvAiB5uHFQhVeZtEl7mqy/ SrlnifLciaaAs04j0Hbmc5sWhbcduiddiSL6MY6hHZqOlQe0c9mtoJydrWl7g7km1ismusoCOWkK1lZY sBww9ZbltIm634ZbqtEmRfAIfLwnG8c +J+pvSFLMhdd8jTpf9op8+06yU+o1ivtG25c6KiDjPCzgoeqg1TMBKE9lRXvGK1mTim+R/Buh+ MyVxBcBt6DgX/xKptPePmFjMwS4s5ysjgwRueRglpFK2TiZHiq50zuRcmNvkm+ J1gl7wjKnz3sve84t5p49T/I6Z+0ihSDmSxAz2H40QOW4nAnvHLSXFiXGL7vi8j1/ OZqle5wCVOVtbi3r09y69+WS9/ 1QOhll9HIGYwY1jXKO9SJQdmUdQG84otqbMOdnMtPhkl0Qr91qqEV7JvuLD3Z0Opk2GkOfLAQ6QPxy04 ejREWPk4HwiCmGaIEUMUyNxBVqscJS6pSwy6Jso3NphHSFBG1NPpNWm61BxPu1Z7Mfw3avQrZo /MwHUgYI+ KENHb4X7cnk61Y02tkvl3gWtyM1U9nXbCFJL8TTr94Te2qTUZI2vm9goy2clpdPCZTwReaP4C56trQyM qqFvXgDjaP3h5q11ory842krXEelfy8ePZf04NdnTLUFXUkG0zd0hSht8gwg8J17S17ywc6oK7HbDNgM tV +EVpp6PV5SgbvLEKYx7mqppuB5IxTaohPNQMEujPs955ZvjnWPbNRqEutC/ SDKOUQShiAfji4xgpNiDxii95cZDhXmLCVcFRNrBIaU6H1IZDToQJSfz3AAjlTX2GfMIzNDmAI4yLpbB okT3G42nJUXbFfzZdcFABN6JYMk +tv5vKrJpxs4duQxr05GMq243kK2pxga+xW/ cUhIiKVwAZeqkK0ypLULCr6zdxf7yDU9UIYRxS1OKmFR0KADqJABAZlNryYA47NHA1qjRAEGcv/ kQvCsLu+ HVsA7hrJ1YTIYinRw55JZXz5iFVncrd6CZ97bYPEVwDmqnBfPIT2eKI4iCJbZuSMkHU2zbakxOc9f73x 1hadj40mbYn6b1eaCh00mrq04SBCcFAtbCb4vsGaeBWBlX7UGuPDz7 +hUgdSpOMnJOaqwzRuDBcY+MUD9aq0nkYqw+2unqenCnB8saFtstSkCKwthnio+n8NsmqxmGZIRaDRQf +MTq13StX8QLmgLYxcpjLlEnHb2YEKu47NztUMVl/ hAYeHpBNnUGQTBGiuO5iCL8VIjNikWVQhfk4Iz4fonsahCt84CLszcDVXJV8nq6nrApnvtdqGlIzZNfD Dc /AqBFPG0xni1LtEztqCZA3DkFCvRBNmimHZl1EoCBGHGvNh5MCGJJoKdq1kiDNT2/fu+ P9NnGAsTamaLtTqcbGXQsNVX9i2reg8YqakqSgFG4ayoyLzQPmo4mdWxT8RuL8gTGkSTMMoDhyEs7/5M +991+txUWjC61C03r484fuum+dBEgMJBQy21qoLRoBshQUsPagtbBK/e+ w4XDK2hj5faaeVCgewdWyjZNCZrDrpIOdpwpR1yZD05KdaGh78KE1TdIbjzPJ0q90SjSSvnRDlIcKz9p HGq6G6TFYEDTXsfkLsfDo02iJaT4mVru85rBfWgEsDqg2HyKSc09RWFr0ONOq00VeXE10Uo5HojmM51H 166pdicGP0twg8Xn2uWMR4y +LSCF0BOZzn36Rwmuik/NKHYtiU/PGVpTYrgitEGko2YXHcwGGW/ oh0chtDywW40zNan6YEGeGrbo6uRch/Mt2vBCDOu5Ah/ eRWEh83i1V8ve29zJAerutVwyzry7IVrvk3kRW6CK4/ i9VXa9zNBi8Slul9CtmtZDCXkLNARW0coU3Hr1odlxTlcLjZ9uYe+ izYI6zBjaLN0Z5sFxmP2QrOxJrE96kPqb2gnSzEDebF2Qe7PoX4j7jGwtn3Wk2ios5BhJjIlFgtKz8HI DKNhh6dkfSUgxQ9FZwl4hRbZJzLQnFn / uLK2a02OKoCrShGEkTVz8jhXEeFODOb6Uexe8DYxPIXQhg0SjkswXIWZ4mLFmVJieUJwcKJM0fQ11DdO clqUL3vol3P3qAH8hr49jc8osWqZQtZ5YC /i+ofp4BOl9GujMl5U7wiICjQHnmSBfl0sTxsC+ twv1UULAvNkj4AT3hqX6Jpil00QaFSh7cX2IldrFbGIDUkWfF2waBkq8c3Z+8Acnqpqnc+ VNTp8i8B4XEYnClNhgZ6Ufv68ylmoJWZGnnLROuDZn+ yzTHsGTlsPe1V7oOjbrNL21cf6MOOuTKH7AUPidF2x2CbkWtd26vzFEJQgpAxQb81wjMPGWtdsLFZBPD x93pgVwef +Py7/uu1Jh9ezlKq3Ba/CVjibYziuz8obQEbuN80l47dEETXjnvp3SAE3vVRf6+hKjB+ 9zdm2bUEjKsqR7inRsftXliAq6mXs0dlVwpGiJJaGSREsdh8RMdtAUuSHrBRDaJRavtGCFX+ MTgkaiPTLSIN3fXjasan39zYfDglthCSB+XeZOXo1LBBfd9MvHXMNEPP1SxsgmT/ NPqRw9ZvpZZCCacpHskZ1mVGpump4gQ+ZFqFW9i8Uzxtsv5bMDbtIY4/LNUvdJQU7clG/o5oE7xtdtMl +53KQQpAiKg/K6Lg/ Y7oVlpDsA0xdl1qQK1IFuOoifNsTaFoJTLinIGDqvULUn3HJ9pcCoNLPM1VN0nQzdbCCxnJiZy3B2Hb8 BuMHpP3nfatNiXjJ36po9jd0ukxfnD5usLr69gO16 +ml+3Xeh0RDHS2yjmxnmNwvXJBltesQJOXuRVvFsTEJi01vlugCHRs9magN0cm+ Atc3btJnkJWYXBmudykEntwr4KhG5MuW5dccRmJjyNnF2rhRP/CWMMzksuORhamDvr2mrss+ 56nRmQjPiLtzeVgGvqS9exP58hbU9Bnhp+iU1s6K2f279vLXih1n+ 9J7e8sYLbA1r4w020ie62upuh2LVPgeI1Zk2HiZEjfJYao2EI9TJzRiAvIj2zf7nfIVASDgcMPfAtUDb pKOU27PohEZquk ++se4bCyKHZ6etkEfanZbohLj7XeWA+9nK9GFuYlt+ e9batPegNOHomUcVT1wT7mcVP3AduePughRXwEppO+40o23Dp/DXCDsn3hyXh4wup+z0Mpgus+ Lrgpt9FUsxJ3GXlfZyn3pCPouFNAlfTNit6MSDqJjNMhwmbkziVdg7hKgpvTpYKDpliR7bZJGGAMk9Fg MT4hTV5AfVoMtoMowbkubJBuSLrgpUgttN0TfQgtvY4dBufJNnBgbGAgbfd35JCDGxurxR /OTx0rb4QgTA8do+t2Phjw/ JlBNTxdUDCJV8uLBQKe0qiVus6JnU36ahYBVC7Z5cVHujfOfV6w2BADfbM8OZF33906gyesaxC5Mj3yA EDu5z2JBmKtpvOzv /NHStse3ULWbpji/ QqaJQIJaA6iqiTSGeN9mNclnoKTM7E8kj4XPsCVOKdefdAOnKVmPfMykXh8F6fXlW2c+ 6yqYVzHqfiZwtmAZfr2oU1HFbmT0BiOZr557iDzBbQXlq14zbbwz4rc2wdhUonuCMI2kWfU5Wbz6JNiw fL83Lsg1xQ7jCpbAevNISG2lXSsWgU2K0k0S + K0qtrQ2f1TF3jdrdsLksY6fj8gN69kF9srxHUAcxf9YoEq16Kb00sozvRyjON8co9GTAv2Kd568SKrOW /S37qcxgs3AsDTUH8Dy2NvgmUZ7rRjF5+ IGiwzqezcQkK7E6Sc8S58fecirZa2oerSwtIpy1hv2gevxR4Ix3Q3EextlphDRAorHwygP2ZgFeNGiOL D +RBcy6XOrqSGvpEU6vwfkGTuIivrO3W2dAdoB3r8YHDh8nfc4AlBIzf99q9z3j1Gv8rMmhiF9zcqIUyU +h6MbJTWzaaJn4PoAQmXn7E5S/LYZv6qivWN6IsMlv+ BtV5rXZpPOtJmR095m035SXKfQitAa7oHM6XkP4hzqqW7j1B5/vPwfDeHZkoQ1j8dcP8ai3n0AteY+ 1H8JvH/QHFRW5kXxn8h1OtOb/yHycnzW9rl2okDh2/noy1T9nanyotB+F9yk6eSiYW3DjJV6QF18zDyX +y2DM1ub6aa2Im8wIyt6Ntu45DAo6NS8g/ do5ZicXNTVeLvB6uGhmxMXVL0p6Vk7CAn6UUyXP9zsY8TcL4GOupQJcB5uVUtPqE0PlfHnjycjgOVMtn Rf5S +M4Uu/ IHrRE1CzRY31CH7YJLpt6FDnBqdo8cXJbAaCEq06sMClUE54R19FBI4USPsHrlRHIRFFNKFWaUE0quhb SWp6srL9ldDILbKRhiL +v9P4dLzPv0BSILKP1+hdF6t6BVEFPm2HsrvSU8j+ SGH6oRDklFpPayBSgVWJVM2zdicEME7aiHOOuLjDOsGJUlzxGcxYFadpPylyqpuc6sk387f+ x0hjHwfcivrlkZvNmiz9p+/Du63glcKDqui0D+ RmRlq8y26MeGf4G1qcDm1WGsitngkLyQaihIYN3aysc8CiuszgVi9b9LBKC5vZTrZ6VuQwiPihcQbT6p rXRc0Bob7cKR4VpTMeoee5ieEtXu6Qvialj60jeD3PMnCy +YWbvfhtvkduLW5UTO+peL/ETc5UbjS8uJMU7Quc/wg+ hf63zilTN911ESsZjT96uIw0beP2nNreHNY9j/0yJbQ3s4CcuK0lOoyO2pqlez3c+ EfzLhdH6m457huQS/ WKtjk0dGqB04TqDua1TjKT1MmOxRn7v2XfmQ5vhq1fFU2V0oCppBpP5ETCdN4wAjN8931S+ QCzCc7BA0crf6MybmfThoLJfrU5ep1v+ MeOSY0QYxqv61hkD5Qaq6fUvmYBKYRTKaVxFKstYg2OtgGc4O75cfijtVf4N5UJmIVzeO+ 245Cz6IutWAcEbM3o3+8tprHscJMZyEnZIYo31BzEVsmeNnvo6Pej5/ Tis8nZyQ4ggl3MRdP6lKm8oMoU9K6K+0ibxlf+IsQnzQhFjsFm43O3QGdwUe6ScCt8bcZ2rEmZa2G/ aReED3p6in7rdcGrR9ENU34QP08+ 6lZSJAzFsQohztIeOIiLO2vWWL56puew1vhKtDltUUdBjK97ZkGXoXtaRyLTslsU5hvqE4n6gqD3b1C9 Tc +F7iMHRFZR2eiTJ4B1LSPiZ4NCmwgCxk5E5+W8m9rG5a65jc17xolTMPh4Ee/ AXyg0MhK1fV36yG0tsitQInAsNCvhxjsph1jTH78lZ8FCdrWyfwnmlTkZbUUI+ rOqRhMCXFCuLFnGBOVhTgLh3nlGfiZiy3kEvg/KBW2Api4Lb1Mx8tg7A6ss4GqXmSUgLH9SKcRrp4x+ cc1v53I4qyaxe4dUk+Sti3YgxKGcjnEWlcbMykg8AiBa8bunKAN9h4gbEwfd/ VJngP154nGb5gUg8oSFmgW1e9uGZzXcp20iCNA1zAXuI1kjxywvO/qVQ1gqaaOC1/ej6k5B0b0jted64 +6UqqV1Q0NxW111YrN/BbcjG6M6Bc0NQciLVio6waKOw1+zPK6lWcLTVdLkefd+Ee81Mj9O/tZZib+ 9zSbMMfApH9Co01QB5gTkJ0UIXin85tepif+TKPcxyJlXf8K2W6UyKH4yNKe2mFC9Gw/ OaymJZVkdiCG7UtkcXWSzO9ejght8heRJdMdefzZWdAedrEsHdSgneqxaYiib6veMpHUlp5+ w1VxKcdLpUnX+Vl84iErC67ymBCg19o0GBQf15PjJZk8Uk/ Yog08Se0n2S4KXzHcxytwkjE150ZOtyZh19w0E0Yx4TxfyyIDu6rkZ0EpmR/v8K6C08o5u6j22a83Sy/ 0t8hmLFtl4pme771A+JyvV1X0o/A0cvbfbSOiN7cja7fciwelqnNyg3Px5eaod0tyg/ MWyIzA8x60HmY9HbfwqjTd8pI9R/Qnpdm7w3V/qM3Z7UsCrG+Pc383R6gKbgLObP2F76jq0BPJPur3/ wAQv+FptGiTcjmMAqexlYp2jpFaSL1X0N3fa2VG87p8iS+cnfd50j4fvest+IvCn5o+ KjV5ZhNVXZa7sU90F4kvbhCafFHOlBu3CWFuj4qzTfJ3q82OdDN4YsHYpetjqiO3hgiphegWnphfsaIj jDArgA0HLl +0JefdhsQuPt7a5jFMyrdnt7z/ UdKmEOfL3w9yu5mdToTqZdSvjW4apimUrdxHRQpaKcgraMmrL73FzpudwkJXWbNdOWFYOSYZyqG6Gz2O b1pkXHD978ky8nqCm8XIJMpJ5ViWV /peodRvMaydM6cBp2YdJZQevVnRuxbWGzu50BDbQalxp4dt+rXdheNos9/ k7BifZn5eqe0s71k6QjoP6s+G/bMAFby4ORsjaC0ifJscmmrnr/ 5HuROimczOLQmqp7U5Kv46TCXrofJnqKjMocdZqY7weVnc1ox0Gkj7b8G778iam7v6v9e6bbqInhIkjW JXw6a2L0V2iL5zznCp81pp8DGJcNrgcvleTYiXUD7XMNyPMbStd +t9zmt22n60XeIvONbKzGkHw74howl9OGmSbdn3xrP0v12biS2g7AR+eyo6p1MS+ wIcIP8i6d966TJYalXpgA+ XkNvxHGtrVw22YPeJ7N32o7PW7JQGgFgUxN8YL2AHlH1r9O1F80yOqWfHlApqiR1YePYXFCmkUNH55fL QRSVjUIcjgO8Qk5xNdpEKsPm1k1iBBImxnzEHSWQHBpOglxuWkmapXY3e4gpb1mfhVzuy +I/w9LgkzE1H/kVWALL/IE6Em8jUvinox1/N2gVixbI5Wa0W72VNf4yk5f/ xL20dqcGu03CERTozlZRvFoalED6KDYoDXrVYBlvT52aOYOR6nz2ZVxH3kInTCjivjsHDsWNZlVkhAAg WFfpLiSVSvrKqynpVQkjRaI66zdYeEMWc84LItb8MDY7VI689UMeP6RwPmq0hsudIssGvs7pwE8Cj79M 4fcD0BFQ3oeqffbMSnTsFs /8suRRnHQd3w8iZSXUu7poIo3VYKec19o/T9lyI9Fuz8/ dcymwjWE5XMV59AI1SPYUNaW61TpLZOzL0X9qRvpk6OvfHRmjjTFbwW0kqRbjgYla1UsqP2MnMVVpd8e FHfPg4xbVZwhPd0Y2O8KRRrvmgJttvQBYbtiNNYOLIQHcxu9fqzqzJz8JH8N4dQnNQHqUnvotXoqIyRS ZA WHnYcZOPWmWTvrfodbrdWX2gyZtAV9dFEjmSIaRGA4cy3TRI1DAtGX2VVVAgEX6kqdro/ By3dBCmRr4CEewXXkGP24uq6i9dKl/T7sudl8REyOVBXRgLlJjzoQuuZBNKaAhJ9pcuAyT8hyN/Qv4V/ gUdJB6swo9kCg4WWN9182PsXzCB1muOmhE+Q1xpKeS/GaeDoU5Q+JTrtnX5MeMM0ZZuA2Xlg488K+ Nhy0MdG4g7XJ+QCb1cI0RxvtdpQbM482FRkBtrryoaO40AwfgrH5V+967njfj3nfoW4SJ6k+ mGfusj3Rd6A+NPxt+CSsemF5LmO/jH4/1SaBlrPfl5ilAGeZbmQ9q/AA9+ O0jq6jbAkaqZnsoar86duwM456zuLx2l6EkUa4/g2HUNa+ C1IgAA0vzAQlecaeQwqpdfrWNivt60xhfpaNDD0q72dptBqkYlP9asxSI1WGXO0PGpJrRkdHDt91AnmN m4PkQIkUFGOWEdv2l7azbxmJ5Ailn33vOggnv /AK5n+OIj77E5l6a1a+JugeLvD/cs1wZFKktYzXW1jD5RvigK4a/ivGvNKu/l6o7uXHbEte7gqrO/ ZWB0YrneH7wfLRXQta8eOrR1R/Gsms8OaVXev4kf6e+GNU+Gw8KLxujLGpB1897s8n/D/hS/ osZTN602429n/VpP3QU03N/Bnw30d6+TIpJr6V9Owu8T8asM7Jc+H/hhkx6a2bzYp/ zh5H0OU6zoKvWDWjB6/p3B7uLL8Gq30gWq08ZjdfrrAAfSv2hVoP+ mv5cKLkexZgXnlVliA3ny1Mnv1tz0y33wG8/ dGwXuITxoJLcLB80sAr8iZqQtePOxSulEgAIlBJeMB3ur4e0PtV65n6qEW1/ ptEYM2TZCg3tJzzonNdxusrxt29SCdMfFFWy4lswI7986oJ3aXKkqGQBaWaDJ7Ve3UxTakd5CHRnjpP6 jLfaI2XwwNsCrB6IvSn4bEWvYscfTT1HklYgG8gpDnx +6F3UVjhuMoz3B/N0d56o0xgQl3U3PO+GPA/sgE2rFb+H/AYV5YpvpJ4k94RaR8aiKlZaKVb9V2q+ 40XIsL54X51SMRVu8xkjPjxwessMnHjy0zoRtJ2U54hqkeNbMu1L+fVE2iUgano3jsaOal8qcoP+ HpU1a+6zuwljewb5NjgATyJUV28I6RileUt0D8r4jz5v9dek25e6S4j+ 7gnHp851X1Z6CyG8I9A5D9R3dtHo54Nst7a6aa3P+ IGF8fP8Kbhf7qbddl5r6c4MXWVi5Qh0u9OSk6pyS0No9S1G6JnUia3YL/ JermbktW8sdgxNvVvs3hlW8qV6x+oXbPPA9W0rgXc6Vwh+z7Ys3IFdrjv60j5UYaG7LFcF8d6v5jW/ dKn2ci8wLPHwrpl1PxRo5DV4SvaxMgZlkQzju8F7P3O6IJpn8r5QOgFSXa5wY50p0fparFGYV3sYqOmt N0 +U0B2Cxzk4eq7Q1Lz5q9j8a+57feDuHJx5l5BjOc5roh/TtRuYLeLT/AOy7jw/ s6v3flOnAePb4xaI9y6v2ffRvz6xppy2jUGomZIzTNZ1aAyXpPoaJ5WEwNfWXxgxxZVB3RfB6fyujIFs s8uLvS3LNMra7W3xvQpfaam9Vppsym1ty6swbwa1XEuDoZ9vZOfWA2iCW8hA6ZxtvsLocJfSflkaNaHe t7jVP Eviw+I/Yhg4hbwkgr5pSsadH8bm+SCFhjZh9yFgFl+ HqjWY5Uas8n4YHiX1NAgFi0520kXnWkx0p9h5LYOi0r5qhtFw387IC6XrRy2bberfq4Pvoz9H6sDK99t j / BI9enXyQPWyxwonN6NgRhdKcysi18nbG9pq9w1K531IZ8NmgDsh79v0wDwdMx0d1RMWPnELLSCzWevXO dEGfoqMtfRHahN5d /QP7caSm3QlB83I8Z2t7PRPi/LLszL0w0q+ KbXli8AGA7kcGdw2o1mlI0I9mudm3esAvC3AlUotkYjXlhYstmk+Sra3Mbggzj7A09o/ 6jtUpEOwwQf3vz0J9O9vhMb/RqW7t8GbfcaRn3bwz2A0qDb1o9/X4wAUZv0KX/hKb9lmz/wAOL8P/ HCfykgF1GnusVnyJUpI0vxLdzYoK6VpjgYnc6pz/4qhs/E/i291/WmJX6KpD8ibO5eLzu7z0VvYqrp+ fK1GcvW+1V8bNW/bo8a/Xhhjf8h5+Hi6TTso/4rsUqskK1j7Ywi/pvw/7JjA4lhgiz1LECt7dNwpxJ2Q /ih4H8Z/P24fDCr+F/AidhWiXC6C+ WJ9RJMrVKtdQLSsA0qMkm3yHa4ySedVre1KKhMi48oPR5aT3dIGMmi1a5JrByXpWMRyQLx1HA4bZJL5o 6KUhyZo4Hv6O5sgvdkx /NcweM/dAF5iPtxScLL0rY8PK7x8C9P2fxMimEAM3Z0Di8X8lgl9TOyE7qn8tZW+ yhu7Papb5bpYAmPo8o+HJ/O3twy4sux7zLZNiAXhqR9cp7osCkOtPiE41+zX1VmKmwWy5dbWLFs/ xYRpZ37tVJB+pIQhwhyk6Kdq3oc3LfP/7L1/4XSy+MDg1X9d+LEd/8JlOPnjt6rwLnQg/ 5W44uOkb3VvWBx38m9059WLllg+ Heq0U2j9ngGQa1xwyH9JoIXF29uk9ORua4c6Q4T6Ju3kYzUrak13ElfcHvqhQmgBgNMeQlaLxTrtgsPX ebL510lt1t9as0inyrwYpRM93D2Ijq4JiM92 +Vd62Lf2SCktIxiXQAIKtu7651HLp/ XH2pmqHZExXJlpDnwBT5TLp33Dk79TGjmx0DtcfuI2uAiN6LehNU5FUn8c/lH4otTxSp/nB2pon4u6Lw +M/MJsXRkj9bGGpd/HWmeK/GGpeJzZ+GfWYlzNy4PEcak+ FnSB1QIwRAmk77TmSEOHgXRdpVNdXfxdJ7i3+un+7fsQ/Aq3/AGhNI+Pnjm9+ JUaKzCkTwj5MfPcyfV6j2CvU/ Mkqf9wcZM9lvfLeUZcmz0YRpf4b0XaCzxjaOlWmuUhvB8H0ZH416UaVDWQhmCgPOzW01E5GiGrXK0AJg Fn4HDgE44TmQPQ0s4xY7Pud4XqhUY0tmyory8JjitGpX0kLYy7zvfg97QWipjA7b9eriDTjpLbXoyAoz Qn0sP1Nk8QDxV0 //fb77DdY/Uri/ud3GRP0C+AskR9M9Ve22Cg7EoMbE4ZfA3PoG053PoZQ4p2KtP+GHx4+ Y0zePmYWcMhJ9E3vDw/CHxq+DngTWNVtZPE+qLF7DDuPuoR2d6qx+ gzK3onYmREYi7zkfjRM6meeodeaGrfqMc9wyrAIHRw3998s8tjxnzORz2th8UE2Zf3Jbq2MmPhsUYnYw zyNUZNQvbUBewx93K566S /KdeP2MlG8rLmbF7/VnqG6i5I0nTyp1Ihha4LCD6kgxqtDEYJiGBuN5n3IuG9a+ B2Y9tgFmxqTofsCnDhi6LnpReyR/F1i4W0KYyH7X+ XSwkiudBbpZLT04D6k8HIPQo0ZFcp4l0B4rysI0HO4Ici6f0ceGZvU3eXkgzxlMpE61c0i4ZfEqdlfpk wO6QmMdcg0k +IC3Bg1Txjpxh7T4h/K18kdH1d4e90LlgAUv2pR8CfPz+0Xw/NaotC2D8w/y5fdrLz/8SD4Sj+ G2g4s0Yctv8+tPq+hoPq8p4ZdVO8Mth4z+FRjO2NyJzB6ck87tn85r6Fb77Bisl+ JcJmk9Z8L375m06U5SUad7osv5xw3mPAH1Ax0JoDPeFucWkO9EqHrdogMwzE6Z0MVgZra/ CaOSuOZH3MFR3lu1Y2odF4+8mnvbXc/ qMdAQagfTGp37RS56MXkYPLLSDDhfTs885wi0AWuNWeOxPTsyhkJau5irgsD0m/ vXYKza79i79I6qjWi5r4ooJqr5gn9zR1osAgqjbTF2ml/vQg7s69++ Jc1tiTgY3rn8R7MAxf35AisRBTzJIDI2bMdhkSteQySWFjSwvU+Hn5wqS7ZiX9qa7iQG+ m0CzrWdlRv8qtiipbot5vcCA1RiHWQJdTmMPGsmnweWC9WIWDpmMEZQUyh3sZdPAIn9CRtZ4RSDmFPBM o4 +Sfy1LsEtScybX/qoe1hTuy0wlNfOtvvlqM5awinSFwPiVVdxg6m2OgqS5klEZq00HD9i7dDwR+H/ r7ELXsjoTafJaIkHRuwJtaKw69I9A5r0xWrtFqbQKvwSENSAkRwBGQ4EN1TH5Jn7n6cq/7VP4NIWi+ml /bjA7P46JrRuPKT/lHIcHAsEmbtmELWnNyhw0nm8X5nAOws5tjO7yzuJmg2Xi/ uym4XG4y1eSnAnCUPGS0k0+LyUj/kT4yTDFKizMZ9t4NAjVJDkdZqQiQ9Cv4HghW+ 5xtAc58xufMfnTfPtcu227Z8t8nbbGmwBpq1mC+g3IziqVj015C7wVw3EVXYiM5Wr0Gd0Pg4Uj+ TqTX6OgGn9ltZjbb6iA5lx6W0H491Ppebr9AbrBvVnirR7jvSpZrMRXwKw7c4ixhsQfnP6AjwpAh4fVx G82mo4fp3z7QmrJhpmdXI1wWww5 +VFVAtd0hEPJJiVCOPa6TAbJ1Y/ zXsftRRXn5ayKH7iWcRJqA89MCf0ytGHI5NjEBJOJvFDLh3eptCTSdXPSjMv5ooOzz4pcTjEU4zlgS1a HbceahctGrS /vIQCek01DJiZnHxRDcYBjtNS2srWy95kibzV36o6+ VKP6w7uFkhdIpfcYboeWfHX26dDUiPsAMBlm0Gw5PGTT8p+fZqP+ Q37tha7oUeHvBBpNDKihnMjpZmRMPTcsnvmvwM8pKtt/b4KcCjBvm0Lb09a9H+BRRix6MLg+pwiGc+ eAejgicHNhvQHKQW8TrgcryCWz6EW/ HWaVbwm1k9noYpSn23hWqgtJSCsXkgJFKcWrTprs8GiVWqtXYSq/Mnwj+ MzocQDCx93Jgcq2WthpEhLUHjWPINnqcCJeA46NNx7jUYA/qEpHbk9l1pHjy3d44kPqXl6Z+ XCpVgzwzHfgquCGKKxILZB+ krrlcVEz0218O5oRt28x2K6B3QwDhh82oyG5ip9D7KP5eBqjSpZdPanPDkUAdfU6gmiLYC1BV+ gj4vfG5N9Awx/k9vomde5KInORLMUNX5QpCxeogAOBFM/hwxBjRmI+ rQHmFi06uHib64U7O1X7BjDXn6ZdOxmVKwlM80eWNfMAIh7g0D+ OqdIcIwesXdUl2ghabLHIYq2lZ4sts3qHFm3O40JvBc4BbH5B8Vd7iC9s8P/ NlpqodpanVIsrscjsYAMPXPu2REVEwMJGbYgOyzj03nEeYW/Jaylin+S2uTvesXFOX95iw+8+NVdt7tvan/ mp3LEWxu2xTB4qzZOceQnNTjwmzvRAIVYATN8O0eQMHmqmslvVfXReTRnVKex82G8JRwZE7L01Socker 7IF6us6JiASYNwF9XHHRNNhEH9VdDY8tXOmaBudKkcA7OxfPESCgppt7TEy12MehcdUvMlyjgouhwHoM Javan IWZQaBE1WO3qbZvDDv6b0sn0n6cqv+ kuykRR9NfRaEp7Lh57ayC1ot64d3Z8eqnwlmvyfNFGGqqCJV6JK57BLkUOHxaBwsWsEViU2tHz2/ Yo3xxmnT9LnVWwHLTtNKcovNhbHKR5Pgo20DhcFLKIw6LuenrMTun9wqgzQZ6lvtC1eWJDCHa4YwzoqM GLbXIlDGBxYC3Lv +I5N4und5E9PX9eAdVpsZGxTLQx6QLIGzxnY8URX7qjcG0f8I2/Ba+duun/ XV0T9g0pJKqkiiqlpHpE9dYj8lJ++2ho+HtA0+iBuURRU0pPQx5nlG2Rj7ZOKS/VmgjbMK97sF2Ck8N+ NHxTh+Guvw3+o5qymlKMiLkzfiZuWKGxmRxxYWybKVDElitMLUArOai7YwLcWux9+ 7a2qQiE8ZtqxVx8tytcfcKRfeVDDdJTZJvICljod4/aG8T+FPZ4xapOt9Iu8p/ Uc0CxfEyzlTQCXWniWmYKSMUZnolnFXEydgUQefP+ 3pbQeKTHof2DRI04g5yxm8HrsI6ua1s99GHmPZOdVdzqjUZPw0AWxCq31uBbp9mYOJ57SpObWd9J5dAb HxW +Wehp2Ghq2Hb9ppr9p3OjFv1HYku8pYGuAQxBZnKueM6Rp8uJkWA0RKM6b1+kPCHxO+LdxeWOi+ OHkgDE9uYRPo8MF0yG6PI0hHMbTZj+ XUbHekq1AlkmLv2fdVuDwf6F3kav1iHCWedWffHXY4NMmIZYAuWEw6HQjpbuZRyM/ prTNziSJNFk4LKa46IBHRMKeNpqfbu7tvqyFNmh3bM72aHDnRlpQ8fyrOY3m6VClo1sMVRPMzzBtc0X2 u9TFQoVFq1Sqg3PCldEvR5bsFDllsLohOapbRxiooYhpl4mLCLfLtjPyJrEnxj7ZcbpHuglpqubplk2t xMuD + 2cPRLpUypDIVJI3cb4UehukHnuIkkDVmUFSlqQ9KV8eFlO6uDNzPTAvRPNYLYtwuU8jqhdc1pErjO0xz Se0hzyuEOdlGE4VdLSfDT2cRtAIxrLqCjHVhm1c4lvSWgvSddkklTY0xezjOO9kAZcjnzFdOIPPAWxhc FVcznM8nLn9olB pu22+13s9r/ 6iukARR0sD3raCNjSFGomaga3thAW3Qqzff3mfXQvmprY9q1U2pP5yMmO1poLI2LDxXzJKFFXvYtb2a+ Sik0qQuVXTndyNjsFcTh3hn4eJ4I19NVHAS1L6I3WobCsHiXR5psZ4Daw5fcHWnTVO8CsveE5UDA1eTY YnPaYFyKNdfpSk3rGvXMwiJOLKewv /cZgWch6zBx3haqHTTYbSOHhmsVT+G8FyDUylICEwidV15JgSVdtz+b6u+ 5ZPVEtCw61q7waLnufJGpmDe1r5n7Dm7xty2Lwmwr0JXqekEkTM8VrhZT9Lq5Ci5qAteUJrh4DnApMH1 bIQCIgU01mfidxPNcaUcbfzcT1SOEjiNo6xe5cdhDPlfwlEmEW2Sg3oE4VC /o3xjORlnkCshl50HrdWWHyR8xFhIyohSOf/ Ul8aNA2LbOuAKZvcST7FQGJSnAZqCpy5yeib1mU2Ae0a1tGU5hamrCFjR01pDTd97Np0RmvcOD0UGVFL eNBiJljGPX7FZU7O9a3rxmj9gEx1x0z /GUzzijRUVgDEd0uhQc7ORbgqO80zn87xq2o7Lf7+N/mYoIhjgwZBgpGH21IaS8b4wn2intv/ lZeMLTZzKRnN6PIPaAyQzB7627Ts6BV6Ppi+3a5ghF5rhJM+KcDeErjFObV79AKSuzh+80bS/ E9XXX8nE0145A3d5X5R3VO6djmMP9xfRHmg6rm8o3DYp6uDFROEw1NoLnAAJ7PZi3LEmz+ yC4jnynKdq6i2jew9wkovWEzDEbvDtk1lGQ5gArwLkirXFS91NjfLeUjsj5eWT44eem/ WDQahr6XqvgDusggSnTb8k8cMfadkl+zsjan0+wsbB/ P6zL97iQX5a8ZbbaIZuWZFvPCY3b6dOFAbBhFIRsUJONvVSe1J2VUBOOtg4ShlG9kf51ubAQep1tL3uu olOgKGrd8FYga9fvMnXVD +WuC6319L7kgnz2XBqD3/GIDpB4nuujsfzObwNP6BEYekqzLSVI2bwMeyBDxYl+L/ UQ9RddcUB7eSMQvCCBT0Pr5ag6v9nSlnIDyWwORSNsUw/ uCjOROH8SqLhT6Sb6gaxTc4K1m3oKCi3q5J5uo3tu8rRVBSZh7x4YIcYlu+aU/VtuV+x7K94VaYl/ h1E8d/ Hp7f4ncV1uyHjlbUeAZ4vArhGLX15V2nUqVtMIw7qTB9Dls2wihFvnm3y6mWhcmuk1Z8SHd9PIVx+ xSM2vBTMhGcsSFeIUHC3kKk6tUf5O+Sbhmq9s/ PX6zpvOpLI7ygcEWt0HYMMwUhjngRnMIVAMjPgUB3tPns0X+ZR7ibNarLdR6RoADb4gKKyy7lOIl/ iT2MTXbWJlkcMK3IlPvZBR0cuxwKRwnbQZ5zfh7sx6HRR+ Yx3t69IKLnxHlKHpTK7FbrSbe714uWtr6s218Ph8IceZTTvivl7riVV8YqV1uWD93PJ0mpByOLJoDGHx QCA30A4xuwIoiL5f + h2tA5Yz3EbFi9uCzZ0rwN1sHaAWwIXAb20hdJCPBDeGJ3bfOn0ho6pNAowV4hZC5l3c6GsGplLsERuUG 3L8jhL7yKYEWHtKf3GvXshxmGLs0MVYDjfGKUZ2u7gkULcjKISa0pjtO / B6q7BzFLEeO9i8hj2RdZT57UoiuL5t6SZkTl65g0yijQx46M187CUCt4IzLZWC0Q4gDwuvISz1nPgnPi Zo7y +RQWl+0rRVKmAuQOUmNsRRGGdBWU1V6od+ IlALRf7ruWiCj43fXxxNBKvsutIhTuGAZHuohR7vFz3HWvzcWXzH8wEgf46h20w/ pEByh38PCD4Bi8SEOOB09R4HGpUMT5gofblsRD9gRBjHiMUQHE/XAkIwbe0B8Q+JPHL+ Dm5d6q4zLqviCi2notMF0d+6Vehx1q91L9sZMLgDMq9veE3UTHepK22zVXnbbPf5YShp4mgPpWlyqrG+ klPNb6ZIcSLRh1V9uyhV9NKn1Dlgh6Ua9pBRpeTK5ozd+ Ix3FzFZwg0TzweyYpYA6tUWXEtC2uam3eOZSxAT1q9m5nswHmHBEyRIFXOIbnUHpy5RICdC1a8HgFa5o L6qjmS6yoFiVAMkLYSycHYowCfNIPNXzLckpVV1DlAUOBxdhc3c7fVd8YWmrvdQOzS0aNrrgpRMFBkiy joNjwIn6DfE9eonFFhS +dRCthyxJ1UYx4t+FfiXRb+ 17Ope3p8r1mrUGqCXB7gZ7zq5Bx5Etys1Zu5G5dx7iHRxVEcPMZOgNjhj2vflk3qRDfkfzfc/ miyPQSPVQD4WB52c8Zcemd9197dz5fnyux2UYLkif89LAfn+H+ rYj8n6di6C6gT0jAPl8ikZDHHQURDszaqdHDHX3bp1cgNo8G2E2Em6OEbOm/ oCWHq6vMb54xOZdgn4l7gUpUqimwvbXorX9kmlxfpd0er8ornnJ1/akOtYChe5t+ zMUgD1bRuU3DCeAukEPdLWvimwt6/YHAZzIfLhCKJAATlQsiQkxfN+c14uhTRS3wGaDre+ 8r0tRxTVUx7H7KVi8oNduFGBAO9YCZDksIReyOmwocnTvNWJF4YL5qTBAOC53xrX/ IECItv3QgCY74eIG/q4EE81hGkSwJX6pOrxjsrbnV9l10ClBQtht/kakDscZ7yUUpGCk+ XR7J3s480gcOHQ2bjAUoz8JfvPcD7nEp3BVc9DHAlPksEdvhqzS5svcZU1OHIartJv9W8DnOHkQX0iWt mkK8FyvCEhFjcU7s7WFkSNzRLDqWRTsC2hs / LgT30xwKixj5XURxDyt1vaxxjwLhOih5pidrpthmTus6z7ipnKNXtsYEMOEEUY5rWlBcBGqr3u012gXH /YBm1htmY21zd2rQjqeuEfpoQfnI5HeMAf55Fw92k9TuhL0IguSqNSdQnWkcgQ9xibu+ n1rGEn5Ap3lA6uyiMS1s0n7CSpD1WMjriVGa7xVb8gvreIa2RP6E/MrHuWh+ UBY5p72PxqmaE1HzgyioqtKhQdgGIoaFlLjpPrCuMOA5tJRIKBgVS0IxgJ5YEaFdOru3MtV4V5kubScq KBiEh0hYb4HtXFVAppyu9oL1DXXcHcwB60aPTEiebLWBddLQOek /Dirk2el/kFOhpJe2Sr+Bk11DH07qBhaywnM4Lp0zp5mPt5Vb3miMNlt+ zcdUR2SyuADrnxsT23PqtXxVh+CC/8AEEOi+H7/ FTSRZ8z2HHewpEgZ4TpqNZkDlpGEqLf9lqcQJTMCW9+duYIHGOkjkr9sYDv6X5+m++ o0ofPXlDfeHvcKc2KCo+JbEHR2N9RdPp0g1yjk11Leh5Z7/ K910YM4A71A84MFevC1tJ9IQT72t8WYVXqYoKacRr2id2QWX8jbEMXQEWc+ 6pNp5hqLvcTRi7wj23YuM9m4d6ew/OEOl2+gJ5DX4C47/nMq5IGqBijYYn+ 4qN4DtosB0epIYHae6P2SfQ69zIaPlLcer3uKtwt2GO+gcQBXthAddnA9dm4ouqvofscCQ8kCvw+ HoPepPbBtjOaecNbpVnlpSx9QPseXSMwtHMLC24g7vaZI0VohTLorJzO1CfkApOmzGQL2YWlvh1Mc4b7 N9b06yvfd8pi529W5OdEdTgFWpRLBvW6uepr8rG7G66Cf0H7e /WNS5H9I+HRG5KJqk317H/HniuaTxTqujmR/8KpFT6S3fy61+jbCsfaJfk2f3Pk1G1Gp9uPkVOhpp4/ Zfb/HUdUPn0yBGeGvoveqxr8cQ5ZaZeuVQUWUX31rLVNEKzU3rYuD8MKir9fcyV1rhee2BgnKAl6Npbo +PFm9lXoU741cok6KvYVTS7+6C92pIC31THdCS1Szw1i1v74GuvfLXtAdBxOk5jiO821U/ AQ1hc192Yg3o8uzvR99M7xGeeB1gEYWcYW3mLgoLYkPLhzIxe4cVGTnLB6zaEwFt6ZSfQqpxgNFJkPei ZU244k5vdY +A4DFdZHlPxsQTjptYdB7O4RLoyXmZy9nYqrmEIqd5Tz/ xb2v0ZM4hsxO2yfkB5vU0fNMBI3QIodAwnirFrtSiy1df3w0VJ3DokqolPRbCMANHiPW4zaSkCpk0Z8a 4k + J9KqQe9kxIWTtb7z6rHHDURT99AnC0CWkij1qztgmysxcseZVpuKefLUnu0rafwiWze1uOpuk06elVW0 qim2jOvzG5CgGpOhcKyj /U/Oi79wVHWyBWqRq2C1JFw0FmLH1KkRPqENAFMl4YQ3X8VAJqJhFpx+ EKOdkb7RWCq7iTWwMg0ShNiRlRp6dRAJuQlM+ RLpDVRcwNTVnWvQiywZnIwkACHfOeDIOlYaSY0tNUClWL689cIF9ZIsa/crmVaX3Knrd3IjbL+yts+ 8jcpNmmkhC3AIggiI0a1b21/ HiZrCILdAIvFGJpizsA8IWONFFx44mW8RPvYTUi2k6Zff79Aze61WUQQWWA1yBR1rA+9kKSuOWZd/ TS98joBR82hxaRgrDboFLj0CG4UjpwYqNEKnCx4APgfkjO0Et/ VQ4H2VbAJJqp5TuwJx9WXoJ1IO4JZFUGepYsAYhWs8Au48ez19Yy0bjjbSxpL2RnE7Qeed4PxqjUUgaF OcwttpvQRTq4spn / ZFMfXN9ZV1KuDLUOywwYPh3HbJC3t7QJxImzQduSQRM2DXlYjQNPJRffSJKuLf6fK3bcTaJtuBQfLwRe g +SrbEZJg6NeMBoE58Goxw7h+ RCokiGmZkRKDNzvmA1MhooZSAEIOhEHYQzhWHrgbQQxx4Bu5yj9mnT27B88N3p9fExnfjWbbzRo9ba98 Rxba0otM9t03s4mhkdZW6rWUbcspMT9kAVLzBjxUFNoAjsw /EWlTjNXdvy1qIKu327LcdfDETKvMwE0KvyPHJDLyA1cMnhPAyg4CUnODDkM5MWQ5XQ9VTqO2WRS+ UCUGAGBJODu+6mj8xVX4YnpHQQVEYLWjayijFyKoO+ZqflxBjeIWKU3RhB7Tqnkw9eT+ ty6gvKJ4578uiWe1dQ970IfAjWzE8uyq23FyPn3aYWTyk5dlLN4xGC+ M89OraElRSKT7Pdl9G9whWwevUPB8fJSNMxSfDHp282F7cVL3HEMsLMZSWDL9Wqrqbblr8E9asKlOS6R LTU68UWGN6y4tlEJZeddKvJJNSoyq4wbOwBURWY0cVduWWvBgXK +8+FSA7oKQdZExMuyV9MpcP9T+F0l6kEJSwq6dBdAPutlLtJ20RnxQhfevmsjezoFtpv71x+Hg1O+ nbeHA0tiKz2wETSBUxt70DFDJyuHlVZPjKPhj+ ji38HDMj0D2jdJPGslqEOcUac5JrjaeTQH2kBo9MAce6pNeCP4DDLdFjSPYfbaZDUfCwvYVtz8RDOQLJ N2i0cgBdj2nxF7oBm4DWSSmPHDgyIr1wEti9kfGORrK25JntvdlEIWWQ2YNdY1aMKoPm1dMNt47YO7lf 8lr86eGOqDX0tI9XUjpBNs57jm42e7e +HrJjrZlMN2vJX69HGZb3QZkITMAWGHNOc2BjNyixmS/ aLReaskcJl51xqbpTMjKPJ67EQgWQ4NrpH6SbY5FlYzhl+ uD7eSlCjUsdEHEqapNmzkFczKzC2Ss1eLwavJBh82A0c5kZ+ 7kTKKJZC2lnuRTWUIiO5NArIm7l2Ls8RJldV7beT6e02D3dtzodVx6sbwnd35my2185Vtzdl7b8b9O8n EzSP1EBPMhYJ3FGpRQ0UGZPQM5MpiTMZvirVEsMiQZEke6JqXczxlaVgFDgwt46flpGe + 6wBzVdwrLQTssPA4ScWBYyH2xlK41pNScrSrboffXiXMqSJBAC9x3rUwxXDzdqKwuDmbCmVzv7W5QGeM 8EBMVpEHYSGHaWYFcohLH +4HhNIN0MEt2buu2+HS9vN+a7zv1nfNlrq9V0Yp21tf+xC7TVaxwsAE8gxR2EgPxCI1+ LWe4Fle0cSPpYA/ MOERTvFD8Y8ylfmMWyDksBnYDFlqTeTVlTf5qwHTNzEbyqMckR3F7bpTLoZnfLDu0QeCwFK0GiFrWJUY reClRI8pk2cLmJj +HhXm0I1eAkeKBwfmylRZPEI+ZWo0jgtUPFmab3soLbtvz/Y91YzQKbOvWpxg4B9cTck/ AJwPdcF9avNeq8zuzchCkfRI1ZUeu2Yv/4v3aNdM2fEo/ Tss0Fq9GDWYs6kxUgsvvVbDtpqbVJHEXHYlyX+ jbpQ4rmjbyjTgHvB1GfjCEkSKkrJdHbETPeTMSlKyUnE67E5xOzTWUHmsBcYOHcf3gRQMJ4BdFVB+9l/ u+mPAa6i0uCYf3xedmT7f6SzObn93romv4zM+w729mySTnmeSs3i1FjR3hCDWOtn0fVJpvJpMN+ XowbBXHeN2g8PRMkMoZbCqlMhyNPBOZNjujPwEcIGwRjm3sWDZ997mGkzFQlgnDuIbNDPYbpjvIGnjU4 D5kxUZYgMh9eTz6dT1iRdm +/ lxYEeWVNNKVRWIpuk8D2Ik1D7uuCBJ2u7p53gvXYDWHVHHi56p4l0tt8kPhywyME351FIQcj8aUPLHbg R7cjLq1ETPHGyqek7h4rYvsDfEZcyJX5R4FKJYl6rKHlo9m96 +ZweWJFMsoUaVoxJEFhRpySVjdkVVYqqsQDsZlDEkE/ YF7GXmnj2rEDcwqT5hCRXLebCzBfYfAbLTDOG3ahMWcMoD0k5kcax/Dlm3BQDw2ZWlzulw8fp9jf/ YSz1BMh8zwOSBMNu6XP+ GdYjxasy0FlYYVbflbYGWhzbzDYe2Z5lyFmHAm1GidFKJUXb7O3dPNT6rDf0hCX5t3ndtoaozkdr7L8s hQ /rHY6Csq5BPYcbUWbeLG3UcSobMCrtlb7k4wHf6gf935isbLRStGMF4LYOm/uwAdxC/ MJq9qhdl78lgcEzlvOh89oqs156bjR/R3m74pDo7r3FYr+ 0yinc5Iw2R3J2KrvFqjKW4nYRJAsHaCiLHUvmTpzPPsRIUKPmx8W8mhu/8QNT+ RAeLtC0PyPnUe1tWjVe+SR39459FI5h4CDY0XWDltzbOYnvxdXToBSm/ T3g8q9tgxp8hveqvMOLtZdrxqvzXKRZZ7uQNsayoW3Y7LHrnfRO1kg38TUBB93EUIvW9ojTnIB3H7qAZ NZ2pG4ibGTmvZA3q4ViyRSPTaLWwfEXsFAGGQLPvxkblB5GrCfwNmnpPvsORfCafc5XeLJQGUr + z0gtuEERTBt7nhlePdS5U3hHyaiPvbqr8PXCmg9oEnSjBk223gceuQ0jTmqyIT97vRjM3z7t0Hqr0dR4 rx6dc +VITXzkjLjKvRgFGZnlphOEsCGSlS41/E6O/wBPtNK+ cIoO69Kdv8LGSOo9QAZgOkcglLigrkIowc5RcA4L0YirfYRM2aR1NAav6nzzpcfxaQmiRZgN+ yOc3tRDU8Wc9xzA1hCN1idtgf+urDhlr5gzWwhm1IvwMI7md/J/rn8SMftn6amQgE/2LNyDIu9n171K+ 39VgjxXnrz9qqhxfiXA81Ydoh7MhjXAirdUjJSO9F+ 0Kcl18WzaJmja7m4r3cltgvymCAUCHp1MuYTcnukwxn8VcMavBMAeYFZf0r2hyyjC9+ BQxn0c3EvJt53yx+EtM8X+X9pU1xiGml5c83LvN6BRjrwZRwg4m+TfiqlW4j1J+LI9d0G+ elO9cHSu1ibmNiceP0U9OQmFvG+sadYfDnxQ+LHxH+WHe8w6M/Htn70o2o9KpWzPM3bggXqwkjs3e+ B6m0B341FxRc/xfSOg6ms6BvgO5ilIo3imv9h13b59tH6MkeQg9thsO+0LB+07/nKPXzJ1kTsj1T+ IAevpUTzvopPqY9Xnc4J5U/Lj3J6SoP4E/ I21xq8k0m55gtUtjWUrMo2VGqTjv8bOWnOU1hzRmXveTKI7LmPMG0c+K/kAlf1MS8UjfK8tVow/ hoqFFkAYCRtCNg7BRTcISk3tp7dmNnHIXVD1BMp59EdKCWyY4uxFFE3jh30xoQ5wy7txeBQxJd4skv5l UMrpUnTwdHMYUI /NxZYPHBdCmy7hAu0Ak22d36ZA0cDky+uoEEVTwrNw3RHsbNodoOgVw/ OmfYDucbbUWz9ZazOKTuU35w3E1vswHeCdtZ6olVj4BqOLHBu2fNfbP9ap4c+ hM3fHsztkqwaRVzPEpqRDzRO8+JBAM8qZgxzjDRRaTUdxPJhJRIyYvNFZLYkP2Qzdd1/ OGo53yD60SvhDu0PL1V6GAaDzyAK6GGWMP3MNTT9FMh6vOwV7s6rpHkimzNP6aSa9w1FSiHMqn1b5xmx TwFPiaxHY22yDu652 /tLKk9Neiz8D+G/9Jc1IJfW+TJnQ1w34twV/AMN/Ui2lHgqc2ucbUjPosAi3hR/wpj+ RAgQrziSvd7FNGQwmo9h1rZgBVy9JD7fYGxh5ACFm1/1uC/nS7+/i2hjjE9++OfxX8S+QYxT8N8u2K+ OhD4mcgBEW5O0sexJziiNnFv822NxJr4zGx+Lq349Uz7oqbuteSNeFwygYNTv/4VGqX+o+C/ OPd3OhleWx0f+MUjLocxXxAqLOjZuuaWAYwjOqgYHJD1AyzmXR/ T7Sdt6ZZSkB4923Zau9nCokrOFQBm4/S04qm1lcU2YlQ8ApVt8m53kQMo1g/jr4f8C/Fu5+Cq/ Nd46CNyswPwdnL9F7H18205I7Wgs7XwM4MD9G4oyf835E3Q3G2QNAppwz1hSrMiJZ+ Ii0E22eBAC1RnuQhcIWWFD0ibYrbbUAsMt1WXrsxPVISvR7njW8XK2kHRIr8mg3WVi4dyu4mNm4BjQTL syTjWjiXTp0 +taQjTrKlPlBdD0avyQc1PObgyBsGMzduV63vBgHtsrJL8IbOjF53WhNQd4qAlcQbvrbMeB+m+ Yw3CuiP4E2JuKs1gdlUCkjwazg1ewuspO4nAz+ML7UPs/2zNqW5g5hFd1N+Hfi/ kBP54sRfy91QwMhWiq/PSbpVnutKkb4K8514213uTmzwxRr4Lr5v8sXv0o4b+ RDKaz0D5uL7DQvEso2oAnA1w3g4v99ZYwIs2GOJ6T66gmQuD9Ju+Nim7X5c602ApmD4446m2f/ JWehIkODfy1RseSL+5l1b2LZYia5dMB4Xd9puLmzYQNWhhhdmjO4H7RhO/75/ SE6EidldaCjAceN5Hhmh0Wdku9e+Qcv9zUgYpB7McHO81cO43snMBRwwoGfxPdajYr5Uc/ bwUVyVYjemEk4B2UeUnL+O0y1m0z7Rjsv2WzBzCc8rH0jjR+ qv8mYYHPSVG2vwcMExsE0ilrnkglsO8Ld87n9Z8v2qIai48PEd1F1cJUFFMh4DmMo0nZhBKtr/ DkiQb3KjLQhEuvToXSBbxZIo5q6w4R/OMgpXHg9Ey+TECXc9zflU5iveqwhpwmgeZuO6pG6lyJN+ yLam3VPqq3SARR9KyTXvy2L3o2wtp8fMSwvpjtnvywUebXKDmie6TxsigFnb1zai/ GBv7lni9kUxhBcjfSzVXfhDb7XazT43WP55m4fkfvQ9dz3+1N/OuO2norQgdg41nKnjz+ 8go0lawwYcZzn9C33bt/ jocwRp4FmeRc9tfLVbBhb1OmSQIwYrml5F5aShcydgsS5uKv3g0uFvrm1C0B2U+FvjtqngPW/ wh0Qu5Efu8I9uMjcWcz6OHsUEn9/AIm0/TNMuNDluvE/cc6irNoKa+L9D+HMOu6/ 4Z0eu6sh0yqTa2q1jwZ5C4TQNdoYeOy79oSyCVbtCXbTaHBAS4AP2LL9uBn0h2bb37quNjnv4nSS9h2v VB2CXHD9dmPnZGn7ay7hS61mq9DqWJK46i0k /pvR/HN1ofg+ l7D2s2GNW2JqBsRZG9BSZMgwY6rzmmG4j0Augfuo4xd1vA7a5OJeUb6PncbClfde6dG3LoTEPec3C2s7 t17W /ETJfc7bqnBstap7e6ZTKe5vdijN3juqTyzdX55+mMJPGQJ0t3Ix2+ 2KkVldhYpeYDzpc54x2dqqwXaSOPk6Emosq/s9/CDx9+0nd+Ox4R/aD8J+Zn1hZCY64n2h/ Ff1uAhvI6d7p59p+Carlton/wAE/Ui6re5H02Oo+Ye939yr9G/CvxRZ+Put5o3ca5PdZ1Z05q4as2Kgk+ RWU1GEfa7M1gZ/AIAbxdr7+EuwQP5V/dGYGwk63yx13V1akcV7p09nF9qxVs2m/ ER0mGX7V77m9xDzvGHsKkFur1FmpgM1LcpEB9SlwiUvbeV1TVvp0jw+XdXWjV+ nuiqgkq5k9t00SFOzRGEC816NB2pGd39YwSaH7aJYzOskIMVznait5LRsGcRtLgMcpT1W5sD0r3vmexZ 1DDlnJTx9VIAX2 +/ypMpbHxh9z6gwvpdkUhdgMtN+lgnn4T6Vq1qAG00E3Cwp/HcnhRdeEEy3n1N01uMRNlwGwnl+ GbgbcivJr102sfD/BWazTW1x+C8HpF0T+TcuxADlfYVZhh0O/Tqt7w78VWtUt1pkz0glYqlo52EQCOp+ 6GV1yxXccG6Gc11OuZ2rnKfiF8K9U/Xb9FfCdm/gqRvbW5e/2b/G3w48d/NHPxl4M/ XAfKh3765Y6H9iaWJiiwk2PeKsipXe23R+HCWbnJ6Ow1FDfUw4IQ4RdxS6023v03t9S7s4dnZ/ XgqpProsWrE3Yvt6o5A6un5BCcTsheDg5Nh8TdElWdgcLCiMy8jwG56o00c44kLW6+ 8yHe7VB41B4feK53B/2K9+hdniEANj30IrdnwaHQIh+g1019m05uUEwxq128DwxXOUeLiGYXYR1YSe53 / dFcmihavAZ5N6rZihOxzwkD5LYtpZnVx6W1xpoBj88nhUIGdj2qVILGb44rngfxSqdoDBN0gmXxytTDE HQtwSSnCGuhXuwBNeLIl0usD94QmYWgsf37cv7rxzqMscYil4FuT5MLBCT ++wfbXTwTAbldjubGQwvv1NqDvgxHSXYI6lVOqKMWbxLGbKcTUL0lUo7ulT/ OEDxM68uhAutTjRSBvESXt2UYAYR20ee1e+F+ lt3gamKOTBpF1yeIVY6p72T16QDlvxxfNaLNaZeVjNrGSADmTFHW59IsAXLU2MxuX3B3TdzAKYrA/ m1Vu2kjrEJSeJ8DXEvFubtxljumtNkDZ6k+ gQsDk8kf4i3hnE8q9oonMgV9kieohsryZTWIGxhVNJiCUhRP0fEb5wU3z9bySmyiUk8v0m55irY5IOVR XWbk8NbJUSUL2gUQHwSBEP7O1HkOEAZjvs4m1ggc04rFJVmr4PRiFEK8qf0zIHvm95nDVdu9xuLJdz5h PeSZSQjkb1IxCB6dIJm2F65nvB GLrMROj1horlBddVtrJhVajb1obOuTL9X4nThL1r0gafPry+ gk5tajv7ZopW5Xz7RtL3i1s1g4FvSv9GJlRd3iUif1J2q3ukyyN278JkhO7m9xoAjFV43aqQSoiwqyP2 n9kpmR1lA9nO1auhXJ9q5B4IQ22m7RixfqOcOLc5xbC63zC4aXzKzUVKiWC2xfkUWDWkziQ0cNt1IQdE p3s +e4O9j4tg2z7WKx3Wuh0zAiG9e1Etp2Xy5rgx8vk/AAi+Gnx5+L56akMxsx5X+I/w803W2VmwY++ 9XpAtkg27+esc4EuqtY8egyehqdGUYYhDh5Xyb9WzMJzkD305xKH1TqXii1LV1Qraw3oxidTa+ Ar3strWi0pCCiDCwgx0EwCY6rOCjt1j6bxA7RsFS08t6SbBf0Z1N3qbOXcrspC6rSynpSLX2krtpB1o+ DSlfaR253Z/EXw+8Z2n9l+LfB+zyhyTx9lY2TB45JfNEM6XVCaRkuKtJh0ps+ qKe3y6wqQlIWKRFXECPjXVlHPILZC8Q9veJADAfqKw3zhr2d9IyqGz4+ lb4szHpALMBNu7JzXLw86D757D9W+1v7YFSAs22N7FH0t5SMuzDKjJQW7HEKIongFI18/iJ+ DAcw4OsRRXKADFwwnoLlmw5UXjUBfjKnMJWcuz060pbf2cW0eU8+/9VRgwj0d+Cg7XZv0XeJH/AIW+ UfmyAokz2y+T11wtDdd0i5L+K/M5xFVJDPgRo2JXmVoJQ6Ja/ dl3gg05JmskxmaT6rOPtoR1EB9q72ocSQ5d+Ifhj8S/G/je1G9Tjm+Tjy9002RkSYfrvyD2yhYcp/ hywK1fvyZJdcV1wP5zg58/CTS66ViZjj4+o2de5MmktjY2ti45bsjbI3AGl0VIeO4cQMIOKx1fowz+ qf3fXTaU3ILOMDBdrHxsSWinz8X65Zg5ctrWkHftNJMHfp61tzhi84C2KXJRrpcF7rFhlFnrylzwV3co v9lVZ5InUL2gy7oNHaByCxOIyDYbCfTi4 +2lO9CgmWE9UrdQCjMdsXS3tH/oL4s/MnLcjo7ZAWh06Auh3UqZ/MrLC5Efm6vpMwmuv/kyPEzB2S9c+ 7ZdyVc2ky30e26gqBQQl4NB1EgShqycgsVuzw9e685x5QBlK8WH98vG2KiZxQvexGYLADfsKY9fePW26 5oBVNHtYZnn0n3sZgMJNAHMw2Hc2Q6PNxC99tbIgTo8ssCehI0ctbrY2bnccpT6kmK4piucnmXefaowj 5pB7ers1dykrA49qSeX6gIJZM3bDylNlg +dtf4LXSWAakClupi0UkKXism7S0B65s5i/ DnF60gxPiCM4sBGa25mXPpI8DRMsh1pqbeFjDJMfryOTfT3Mq00DftZ3xSrjJwX1QF+ QQ0NFLavmoinGWMnSW/CqaTqfiXV/AJdR8uG6/ybE2ep+PzG6fRdEr4SDGlglrLV6x9poTf+jngP/gnx +0Yvwz+H/wC03+lC6P0JyRDN9KY/JDwmBTbV3KeNAsae8RkIrzwByv0uFvcw26P5E+ Fhe57h1UqEvx03RZk7FkL7G4GoG8HNR9aHodWiHyIkpA6J+QmP0lXAV1jh2V/ 1jE8H9EqSkfE8c7ivW1HsHO7stvrR5Mk0uvPWbyQ2LIvsw57H/T1qL9i5Zz7ak4ZxOoiVnt5uaZ9wlZu +H/ZNiCOxGXo41YnB/hW2bs5uHi/RPF/to7D9fjrmMSiTqT7xx2XpeHvW8scr4fj4uXDSI1unR/ cDhdech1csrXI8/hX4R+O/hF8SdU+EYeSN68jc5C+Euj+V6N0mlgjrfipV061KkPeF6RIzb+ VlO6Y1haUPhUJ/PkUTv22if4/eOWCNmoYgwsUtC696jkv9hesXL1uB3iAAcT/ novTc2OjRcET56HpMpIYThzRoIy7zuqm4iJIJyTERvPAlWBWM/Hlt+zH+6hdJ1r4hxc5O/K33axwi4K/ 2Z/jE9OXUfuMEVI/qQK3tnflIj3xE9H/W95EDovtx39Sky2X/aI0t/ QE0hdfmWYtb4QoLMFH3stccBWuWMkXyv+E2s5s8vy2/+DTjj6Od8XWKOtF+Qoek8txCmr2aP/ En1eN9T6V3MglzemHsjB5M2CgFrvZbHnkSJbeYlSywjzysQbf92Yzk4Y+I3i34c+KvC+iaRoPxI0+ 1QbZddU0E+zNqX7G/iIfEi/3R3oeGM2CmhYZ65FDU21Mol3Iuf3QbXX8mdeALw/8Abug/ GkXJsP3uG9U3QR+8C/9nkElr5zZLKqdxrJt+nynxBe+JSk4O29SyG9zewA4l6X7Bs+BfB+ v37Ak2io1c9CZ7U0Z1Pz/fP5synty+Ocke9WvY4iFl24hlteD2z+H/AAf4d+G/ fwUnFil01v9SbfGU9ZlERa5k7vhQCjRYeHOV+ bzCqv8US7wYuNyBmhuQBqjZE1rhCHcgBSU7tnvEnzLwPZHFJIpZQZ5syG3W9imLRZKfTUQf7GFQz/XMT +66gJm674a4m40p+fbv7biC4MaXM7EqUt6vz99G/yT724XJqtk1KRM8L/H/VZj0qj8Rx/ C7SI2a8IFFz9T+RsIcfnoD7RWz/VLE7txnkt7Pd28OtH5B4VBuwW0ltW8PjldOK6JEsaf1IcK+EMK/s4 +YGUkbn8VtMS68JzCL9x8L0O7Mf1Nb4sc+HVb7Ret6W2S+NvB8+ u26pFg6TnG2a9u1mMYg7y4Zkpmp51Slkpa5XmCcX+J/xgefwzpU/ mUWeydrneLve0mK2KSJG3u0ag4N1mpZx+Pq99L217jgLsRvkcqqE88RRkHVl+ SI7mtYxV02zJrrg9BQoz8G8j0s9v/aG+GCf8E/k2PaVRQ/AIk+Gr/tx3SKLGt9fwU20Fa3jJ98uVufD+ 1NJ3WbgizO9NhpwkWqKeiac8pOiXgR4GoqJdt7El+8v9Pt5/ fjRrmmeolqEcUvKcA63xt6eBWKFdJyOG0mG51ffNM21ngyvhE6DoXZlkUkYvCxyzDQbNrFMozB1VEhsf WjwFeTEPWb8QWDyZnGhBorfFPHxScSv5iJQ6749CauR7GpLp3dk7Y57w5ZCwNtr +gwUfNnE2K18nSbJanjoDJfndpUF01LvQIul0D7wo7N4gT22+AtqHCYd20/AAcudMi+ WZbdYuxzTPy9b6ezpQHbBb/1Nr6PUXYdocE/YikRq58fdVR7UUed7VLlH8VNvNk2mx+HBn48XN+ dxbkEvrbWsP7t/hvVuy+BFlE0diTlTIzb0P+INZhiTuTh4fw+KfilRheEt7nwg9O/AAi/g+b4VuW5hy/ WYfEHl77n6QCK6rRsNy6e2kmJMLJs2h0Z04q6wJmlgp55h7oLBlZZKHcouno8CjblIq/ gfDri8LsQxvf6k6PFx53htHI2SRoUw5vWKqYiwogfyiNevVlkdz8/ nK0Y2BPZLqSQjA8fBNygbgnOzbu6UpDtl2Mw+RwWaB5P994a3SShubOCpnvgDocPU80IGh3e2M4kpeMv /uPqXw/+IKa34isIzEhK5hcj18+F3xc+F5f8bfo53qwZRPa39LzY1piST+ Boy80KvsQ0EKrM6czcO4NaEjsik8HzCMvDJsWmMeJq8obsZAZP/ rFAB9Lisq3ggD2YrA1QaA7rp6rY9ucH/o+fa0wHckmxjS0+0glvlhiMS+ OpxSvL2MlegFpUxJiU7m4D0ia52LfaGOhtcPt/ dASHFSff3wcnY9u3ArH2mKiCylz8xSrADNM8pP6wbE3kk9E8i5sdfn+g+FXaAihy1dcYFky41NbHf/ 0lzml0H+KPDGs+AxT9ECN2+Jfw38X+NvC3i/0utXIjLhhjfF4i9I+ ABJvLM01W8t7CO3jigjl2X8juF6O8n6ChNnwhgl8yRBGgu90Xr/ skizEipW4VuDGWoNVfZVo8lmpbdDE3rly3zZLbtWeAxJYs3lZjwkuwHnxtNOv0py/ pUtlpvBWwrZsMmGVzZmX9pK/b1oFm3txJt2tSjEFMv9piluaGsNMmgmNjw8zAdHZ87p+ Cb9d9pZxhSiNcBOvhb4seVcklKSaHxaBOfVf7s3MocJyXFap4reM2pOG5n40hu7ylGiCek218M7rt9Gh E /wCGOr2/gf4x/D/s70FyB5Z/MNxRdhO6YwS23C64pI3roF/D3wsg+U5tbOMExXFPel/ lskd5g4LtN1MbQDxpDEOIuqPwP6f0KrJXrU6gHIuaPoi/8o+ OGcHjTfDJyVNc82n0zX4U0Mpoemv7yPN4e9g51kEeVjJlzylnaqapamhx8ji8XfyEPWOBUMc1j45A9Uo acwkBkxMtFVyBB8Tzl6D7ExYxy0ROiday3xkro8NMmFp2xb + g7w68pds0nx6FtdzRercjBJNmOaJq4JM5882CHPxgY5uHfqsSKNAmXNtmNTcaChKeIpa08PCMCCzfmbe 4U793GM7x7RtY2o8ismgbf +VqHm3APJdSdstsvCjlzY6pd4czH0DUwChHTiRKOOQAx954/KpQAlGmyt8y06o+ XQ3ZdJc64H3Ko8cOXiM4dq+ 8ESoS6nf3xJYS9uWefsEgbRhIQndaFV3qNGyuBBYFNkhPvY3efc4ltLfDCnK9dVZpnCazyyDTiP6xw38 pjs94d5H9C /AHNyk3xrRfQdY6WJY8nj1wlXgfGw/cewJLvSlEj5B/f34d/HS7+TVigR9ac39CYI+jj5OogNeUS8+ j1rR7Qt8M1tXW1zU0f4A81J8LRNwDsoePcLCRn/ r25UaF2PiGZYQ6eSB2xHjru3uUBqCrtV2VyGHFeyfwgVs9l/PPi9HfKraE/V1zEcC8MT+ G3Y0a0v8VVX0sE9jwkUYLmUcx9comfifL095xmVZJyIOz2qnBUxxEZ6og+ GEtukJ5ha8RZz3A5IuLQxFWPuxckbeTbkIHTxbtETlChNHbj5B1fZbml3Tswx4M4uyalqnXmjKA6mRf7 pn0sLrSI4FaV5ZEM93a6XXjalxnYZHncbfWdqnauU9 /2prPju/1yO38P+ QAmpRQiTuSGbY2d82HgCZP46rFSPET2Pd8QjcwKcVf7TWOrU3jfEBfW1PkM1Ih4dBaYL1Wz18ECvPVfI INVWPH1gKcs5Rednz / FrzBCav4TEpZdn6aKRIUEMsaS2RjWj1JBtyzc3mL127au4eVXljLotbKtvNyMAgDzN1ygybIt8M1KGU7 F9aCYHerRi0MwDzg3sbGzrpko2jkzF +Zx4eGMh8vUV3DzPmF33wM0ze69KcE38h4+1jt/Ani+40+0xB1td2qG1UddqoimyDyRhW5xzBLMlRxGY +XLSALvLoTk+FHvAfMYt6zUAte6mN08ooaIzSFjlP5iSHptb7aMKEANhcmX9h+ g50qLF2BvIHOARUlAQghXY23q5CQ1W90ZnSqQSccy+ 9VSG4z0dioCHVT0i5OezAZyGADuBQGvMFmYDUqLenRva7VFLdIYF3Y3S7o034s7wcyKHNlsFDnPT31ky xcdjgFNW3Sr /yo94WG8yS9rpqxoNLuVghsDeelOGra1SvSeN72mgZANNlJrm1Bh5LJCz/ QtrHmLmDylzP5pHVdRnzvaBMLXP1UrhWVSyai3OxzXh8k1j2wy/900B8UnNo6p67yGcNB/ SCsX4P8FMVVtuE6Tds612fWY7yA3P7FxzjS6gf2dLWTmnylIwig6nbnZlMQRsoerFG0TnWC2k17M4149 54pLapqe11LjlzMLJktOw8t7itv /fZnu+ecSybcVFXDuMpO1MsDIeHBapz1Pbmpg9nLvg0BtHxLUcJZEg+Qw4149Vfvc4bbZSdkrmyA+ 3YLd5rGB1cUSxVGGWpTCwOfWDhCzzu1/GKp44MUbGYqkcqB0v+5ue5c00YQp9h+ 7DAGLpvza6mtnruJ2uT98to6Y34aDCIUrIkuxNTwJhn6PPISouHqJVp1WZjrssDMVjQRuxXGE4rXlf9T ByxPnZ20R6d4euqsK7nCMQcL29utyFASqPEIM4x3DHbb8 + YqeRu7z6iSlS8FWCtYf5qg7ecf7sOTgZhD6wC1IKveodLuLICBLh2CuxN3jIa3aBhrBxtCBCMqVuadpB TsnjuN2papFsxAvTAxZBTjyOpYM3eEnJWChtEs /Bfwh+Lmt+J/ C7mnRjY0p3twIUSySJRTgsYlhPiaMX3vzrB39F3gjrbnkTI1KhWSgJ648kFZAGc4CbxuJpyohINGLVrT vslczCycLlAFYj4D24jgDLK8twURiibFGKLqgLyuHukAUAmo0yPQLOuDBC5zluxcmglf8f9log6kqSvd atAfyL2djwGmvt2BEgtf SqJSKTfkmjYkumgXda6QIVPncOPQpff3xpJr79nVLCjVgPBS9dGi6sQoDrPrtFmx87BSOMDfFDuzXZSj iGhQuscEFnccnNtxPO1C H0cBF2CoA1KA6OCzPrTWoaIX5+kPh/4W8Oae+ryAxh569ipDqp6g0VtW0QnEVP7wWUELqonQ85CZMe/ NclDJLfJGeiSV1jEkA+abrddk3XPzuG+x4ZwBxC3zkQ/WW+/S70/ M5kp7uj6KJdeCalxrcVs434jHM3161WJWoW8baCRUERzmLwOlQYAnpfDt8jtczyx88d8FpyIjYr81bhS JUGQ /l+pf8pORSndjg9xZm7Bk3TOrG1VdZRlp4e+ o3oCtiL9yZVi19zfWGoSz1XGFzfEonsRhPVPmHXXlz0f5vneG3CR2sdhWH80JFXDIUDApJFlZzcQBoZh gEMQjFFIWpSnC /vLlaSTutNLO+ je8868amfUdHfV970D8no5nk3seNa8xquzg5wbQp9Cw13vfSqlD8bTyi0YX3aSpWPqyr8rfhKtkFDNUK B4CFyEi34IKvLlKrsJT8It9pqRwGR60FHpbM9hFNzzalJJHiSpq3zQV8PxVOGLSQaZzia0xpU9sgDy +oYpVqQoRUDZmmi1Wf2j9zAw34WR6soWVhnAalIsodeCQY9AZL4IMm3S3/q+veLYZYILmKKOS/ fYo6x86fdht1XfZee8gWprmtPQOwHTD6N0mLLk080E2/ afks06ttcjj42hC7UfIxrmggeqdL4bz2Rnu4fb8rwa6Afm5oZ0er03O/ mLcMosz7PqashF4kqXLLGZZOZM743PQzXksJHjxRramtvbNHbg2byqbJqBu3bUgtsiX626ajkzoQx3KL qdwyw +J4Y36zYlVbHDxuveTJBVE2OOGRRviGG3s8z4LX8vVoNVlGjzOakTtccPLkA3jistzvehHczBIq/ zGXuJNTJPuxl4S8Ka4R9spU33bsmRiu4xpPoalMECFcSXsNsX3KgNUErv9GuaREvjArnhbLuQ5i9A3wb kMt8ds8BtWoP4sxLk2LUpCwXj2a8f6qUPXtzlzcjMkfi99xOS0Zlq8p2zjHJ7jmI40e6KPcleQQJdre8 rXTsPOKpjAxCM4jv0djUEs6pqTse70sl /rDsBCl5mUSIPtPrTGTn5WYoGmSrjVnoemcByaklMo/FtuSTMGfpJ6CqlGkcMp9seTL/ NUotnmnrRkeJtIfzvjx6cCSfIofpu8l+INKW+k5XXN3T93Bx30irB+ pPx6divlPnLtjHYpDXhj8i14SyLrDAoFBpucj+ HIxb394uwLe4q5sg0EqO88Iotexplg1LKgqhTdd7xDiwPba+C1PRlR048F94ZwGnT5gWhU8l6UO/ kOsLvXq4FqgtPjbpAetgtvPR6mIg3xT3WFfGMFw1f6QHJ7jnghqcu2VHVyr9R1Zf18Pta0rhZ5HYAKRP 7hbAnHDni44Wo9mzujMEgvEUaZkRmUZbG5kYiPYhRATLZfQ1vQbvgKvEB4zK6L +p694Wql7ykS/ kJh5TmMdmCBFFrqPYCZLcEooDicgKcBMXiJHB0GhWOEBqF687aYkdkspQ40f2bclh9QpxxBn33nau+ 6hofZdxD0m5eMxDej3kc8/ vQRFyl3o3vxvzhBnn1c7YJa97xTK784YtM9tKZa7Xc8KtqVDJHeV6ylEZdX0A3QqBMxHngbrVjEw57Cg VEeQWWeR9luV /QI8JVSL/ MFgIwb6eTZAT5vsnfIgg9WmOl6K5NSo6sstdirnzE18ziK89vIYpHOSnnL5m0hU9pVMQLmgWqvrCjJmc bEJKYtfdS9WgYsj35FH9KUrhvtCetdF0uoUAZo4hvofN /NRBARJHncja0TX2Ti6ksEq8T2GFYuyD6oh8V54Kqlb7q16YZTT3yc/ aJwdY6rEnIPOOcbS4nyxpRKLIKvgeWgUgwPGOkfjahz5bS2uhIabQ1A6RwyU/ D1zjSW4wUndbfot7bazTTdYrxW47xwUgvLhtdHGLBCkCPH+6WQ+ Ub592m69Oh05Iu3oLD4Gs7LmCfQhSEopC2VYOOCmrEV1MVZ2VU5iMkRr5/ Fmd617fnkpjR6REssFrP0Puax0jvoPHLORDsVTt68aCc8V4BzxYwcqSXLzu1vce1SoR2YJLblHtnd+/ L76J7ttVX7oqDoAHp6FrBTQwt4mlcH05jkO54I86Nsh5s/ FXsj1n9Jy5K47Xg0mp8EpOkE9jz7b5RW2dr3tsO+o3Ag+ 0eRxtQKB4URpdi4ZWTZTU5DngUBB6c88pf1RMsR5oG0xMuzmvhu30gwIvo4YnTFBBxzXkGZgbx+ 4JwYxrHZ6QOcwpbEjl+4Y3A79Q/ kB3zd2LzOuZzz4dJoVZxWn6ckrOfQm2xUBKioMZ3X7TfxVBMgfDi1xkTK8RSXiqBDUbTNQLi4uE0LPGR XoI6kQMBl4ptepYEZ5agglwww8O6c165z /N6fcrI/BNDTVEfQvKVzC8772KeRCCbktou58ld2g5c/ Vya1zXpk17hv57IT7iP66Ic9DwlvbtXjbokX8iUrJZT0DICRwMngeJpTUS/ HuuiQ0TuP4ch76Gwy3Z0RHze2XrocTKjZ21rpAFCgObnwOwbGVDdEAqIUKf+ HdFnGa3OnW0H8VotdBlpvkgnEKXQQL+o3Np5+o3Vw/ bc9qf5xywKiqgkk9QcvmcF8DMmctxW3U7dWBURvYlmfMh67b5o3T3hz0c0yHmzTHtIfVd9WzTu7IyaA4 r8lTMzMeqCbpZ0AvzBKrsKwMvYgzGkwr1Qidbzm766u3TKIBjGa /wE3BqXhCbgm3Ieg1fiss063E3gMrTrLVfhtIoOTT7TG2sdD8W/ 9DCdPOPtTuWBb9xC4ugBgb7ExWPcJDYKGRuwx/ oBM353zejhVVlZ0T7R5EY9nMFPbos9Tg95glZZ5oDAiaZJ6nUkxRI4+SB0I6xbLg/ YsGKxNkXo8ry49ULsQsmLqLNAh0adiyV5CMdwAnFnZ2n63uK4E7LoHElLB6L7X5/ YFhW9MqBu54kC0jPFAk5eFiCCTIkLM6Mj3jak7edbXxv3ZG/ 7hULFLQORAal8Nd81j9j041lFA1s6cIhyKtG6KUspF7kcnX/xvmx3OS+ S667vIxT3jOP4MMMl7hEBeSrV7h8ZIpVl3xRoVMG+SSIKAxYMQ4wVoPaxnSSv7ORMTsrSz4J4V7+ 1rgm6g2frRT8ak3xdF5vxJoYHn0mlxlTDDozsNYISZSgEFxcrj8itHPva+tJWjS7WmlZiq1/ cFiHXG1v1hzF323RG0D+ jPpzBht2hOJVSUl3ornTNSnk1nTh03MCjh92dEv0taawwx2rLiz6abKeBMdvU9zTkplJRNLlKjzxElLZ q20z61g +acL3ynadGsF3aDiz5X8EjqT8p3PvFz0FSc3jyTimPh6Mc8irAinbb7w+ hESQ6bOEI4LLhwXBo3zIDQLEhW+EzFgXtyJCOT2jSttWa7dU1pqGYsrE0qe+ s9zrlCy55I5w3IZfoMvBjt47QHDd4paRi0dBHPYmTA70TEPCntapO/ NDa3iuQxQ2j0P7Iio4qbbj66L15fc6Ir8a4144sNLFTT8jYiVaPQmJFog6p1JQYCLzUUFkrhs7tFdPWV Z0BOJ6pQcgTdD0 + fFxeFt7wzIV4zN5brTWA98XkGQEP6cK0cxBMWt9NCJRynYJkwemr8p5wc211i60vd5qd6qNX0c71PXyt dZ6dYlV9rQ4TPKy99P7TA6XEHrvynafE4fFe0jxxw0OqiTSn3948CgZkXUbeBXUro +onbuK2y1z0LniZic2ve6OEkZBGrt/tvC+iaD0ZuTZdtvo+f9oDYP8ieJzjCCp28fth8NjzUBg0ot/ aMg1C+ UrmcI5ezGsfyJ17VR7Y6qYjsn3iTpX21tqcxsxxCpVKBLXAhauO3UGBiZilR3lOcMpEHhgC9HISaNEdW frLgLn8r0qdLOcH01gILKsEx1k3CDirdoIbYj990cPoU53rzV7ZFLoNZPNIGNJqmD4mOt7baJe1oyhtI 0Xz8zEy0hQ6sReZUqTlUAmOHnl2k0RYpyShN1sajftarnv7m +Iydt8e8PCN8T+L0Ik8kaC6ZNEBSdEIBna0I0ttK/wAia/ QxvBf6o5W8UqxebbJIDhxqLB31McqpPimS9Iy1cEezu72ml83PUflUANebixPUivojVv7gbzq6eh2fuf Py9wZZfYHbRuWHS4kekSfT8d2KhB3h6kB6s5rsPEZ4KGHf1VT80PlexjmYkTY0IyI0uPfyW9mQtfbysp yToZTZSTRN OjR+deJfCGn+IPHGq+YwT9rN33EaHIyCig70P22/1rBfyLKuUaIgbRcH0b+ pxd2rPbxOQs9mSeLcQvbt8wGR5ll3T1lvQ5i83Lz6a8HFKAViCHEikvRXZpwD3dh97YXhUPzw9n9rWly 397Btqox7V7THEpX /sqrWfopWff6iUVyn91he46FeuB6cUn1ebKsokOlcfgZYqmwvQHNsvWiQ+D/H+ma/P4luo/ TycRwdWQmXDWlS02xff8ep9HBvRjMHLll2e9S+vrexJGX6moxoaXBgsPTTjtK5KGZRfDp5yy5a/wDV+ c5nscpXGx5shdQV8xZ0ncgnMv7u5j4hjtHv95sJi3x08rwvjcYk0ClbGK4jjOLvUqCir4hhOhoji665x ZQ4jxhAdOovjHgLFCLSWMD81jAkKRMXDRXDUW2jO +uc+iFkiVnj23CO05snoFIfbWqIF93mPGx5DsXtB2sQ/ sMpEb097vW5EHTqXYEN3zABRgIr7dnqrVXsO5e+ZSCIcUn6jyk3pUHsPl7q7sd6Fr+ Cwq4wMAig6gcfrhqSjj+i3+ YZ2e8XiHuxmjT7jiDvIcYHlEat65z2H6qSUmRlEbSSlHMDPxxZdvoUGXnQ1csqHmHs3Hrl3mYQmDttAD bXyMgtAxILzFJEiMty1LPwF0OeShqoRNYcNHmx0sdrjxm9ID0y7LINFQFGmKbjg72IHQGWIK8ophefF9 6cQDCnM0wZQuDMbuOutiezjgQW5hpZQO3B5Aw5DbfUrVjRy6uiawrxaVoh3uPuD8m8kJMjHGlUXxUa7v 2k dwl59eB1pKm4H873yiHCPHtLpxsBsy0RDjynNWER+ Yk5SmbhMeb4x8W0DVSY0zejlMyUydqlkOrJKR6PSzjVdXychseqIz2ye+ h9xoz50OxibeYMFvrlvBA77WYRXXPCSZHAZhsYYdJliNBip+ nQ88tE92I0s7ILDTnmt6XgFk2CC0MWjVNYQJ8gR6F815zg+Vcwj0TFGGN7OpnaGiRmjqnzr+ IG76aoBDdbf5Wo1oCPdjtMUZbBdX3M3qA7pMfFM2FHswKftJvxg89uGT3yNtrotFUUZfeaIDuJJOfFJq pbjZLlI6p2b1RAaikZhLDuZRY1otrj7LUI6aGn7mZa7wlmv9xkPUwEmemQL5aPXd +9wWIGV+os9LjTCNZPLBT62fdN1awoDcsEz5CZy8alTx5ArjbmnOOAGHvJ5e0I2JsM+d+xympa+ 36z1YnPK4JfOf0wlRpGqr8fbenDcoTwUPpdTA6vK4ZDNGHmkZ460TlMKd1+ 9M563dPABPiffBWsENGwSyCx29IfyLYKiWgpBK6ScTnEneLXnijlutdO0vd+ Kw8XZXFuYlNUWAddGSVzI7vSkjeKyLFDf7joaAEjdMWxD6iCIxfvO/excouNO/ sELattjHBbMumIb5kHAP2ZygIPpiA9OdFg0usPSHXRzlk36Bw5/ yIukyPP1ui52xSsBdguOHV9fRnaNskpvxjYeKgCzqAQTqLdEtzd4/f6avWQLNeqxhYgAKY4RVZv+ cuEOmHwXQnwMuE0H2xoiyLUsBXDQf2Q91UhNJTZ64eXsavbRtRlMhDhC1jwa752qzRYV0qKcZFyY0K0M d39vNyLMhZa1aCjzqaiLiyNcLY /ItkhM52tZaXFBC3qiOA9khynVu50ODAnM+AmLI3fTIxYMpJ+193boa1hW6as56+98fQCqXSOq/ oS4RjweHVtplpL4CSuJAPZw5mwJ19ys5avE3dd8C8CfhX4ptSD5qLDZ/yABmVWwXlkOdx+ VM6E5xpzdPopEOn77xlaQrNe7q4GQicbyy7dmN8kSOMULmtrXXdYNYrEdUkY4knic89qhhLfxH3ZQpHH CwDCYLBMUZX4SRwL8BAfhBmoFQTl141o764Pqy +tROMpCz4XCMdoCz84VQYZkmiG2VLRKBWu+ 13uNSPCl6dYL77HswjpSnU3nztS5ykAx2i6qZG0v5icPTfkg9ss8a8EoxiRZNTJYXbsATOkADBueCPW/ I7H7iHz7cl33vYjvsyzmASpYsR3nvhenZi5PbnAOkKYCHDt6+IWeQ8s8b4XNrktYI8mWTSdkF+ Qv6wtjSKzxzu+rJ3NQU54AZ2N19BP9rl0deij5jeyiFziXdL6tn4h65FZb/ pNgkVFN0r3EDuaBp0WJIOoCCijqS75WJeCHxSDFdWajQ/bQsVM4TSSEWsHapVr2nVlTCr7Rda1A5ewA9 /4A3qLAT9iGlhsNNiXpDSxHYdVNCvw9KyqF7q6ItzfgAIhjlEZlIokNuOKGYIPxaNOAhpOTDFesqK4hl +8582Fxu224m1vBlbqVgQikv/a9tdk/ kOP4DOCHM6gK8jDIFVinypF5I8LskPEVc4lTSHpp97NZxlGxDscgnx2OAscdPJYw+ LWOCG2eFQCAVByUmeVTOQeqd9Hg0XtixmY6CHN2C/qk9F1YAADVLTwreCHHWP/ EWm2m6ladHz27Otcv7y7ySKfG4hnN4qWuMAkdR0VwkjpKdLUu69Uporqsw9flxa49tl8RDZgCqY2d3FR a66W /QLm4MRD2qbWanrxZJVPnDdUpMRCjpj8LF5rwLt9UwBwe6Vqu4RvrRqlnJBYze/ HVSMQBH3FRsXJPubsebiWspGKyz+QWPm+ PlWKMTwChuH5ZvQDD8BjdEFDLqsOSpjGlqZG2eQfvenFXfsPhmIvWGGRYV0qpXTLeXWt2fKYibu4o2/ Y4EBOxeMLaVLmv+Dtp8+ t8K60bcxoaCiwvNNaMshOJMBLR1eR1eMc7BGaASH1O75gOMezvOWoZYZIkPjppSq0lciTbwXEJMyvvAJ pHmBLo5yx / TxoEJ5lhgns6zBjLP79XXS9Sq46EhMHTFIFuaCIo6RTkzh9maGFVPW60ExDWhskcEXeAhPknydYnWHus A5gSIcuG6op2o /H2H87xz186ni83ahAi2JrmAO1rs24504Uja897atJvBobN3CmQ5aAuRRhWTKB/oVXQ6VOUEeb38Ako/ GHfZgMB921nNYPCED3EtjbCiM7zQBzqB0yOSRjHFNaoMUMxApfLkipK734v6jk6zZ9zbYzbLWAJJt0qr mznqXE2EiV9LQ8kfS1InCO4h3FdDTBtgDbpXyWQd9JfUhejdnLDenBcrPr +TOPGPD6yefHgTIRrzBuYtO4pk72G1hrN/ryo94vxk9pA1bnNd8To7tRU7lh3wVB/ Sf3ULksIhGl5W8cr6k7p5yu59eewpIP1AKNAQzf404iqTLuX0WXzx0m96sGSRmgV1jEIgVpBZnG/ HmoPXlD4st0bD5fBH2ibJMUh4tOpKPHey8GWljUIA9eAxKgkzUMMpLc7ydmDLmLrtypvN3gnL3p6cNW7 eNp0HXwZ /5wWIIJncK8uzekcjr53ZozE7q5l4YsIT8Q6e79eiteg+JGkSS/ 9g88pa0QY1HuEFaq4U9ppKd8aQITALfu1o7PvfoPC0qx1aHthZJmtvjTAoJNvT8ter8qAe17Orfrv+ b52csMezRBConOgrGjtJ5b7I6oGtHn0nZq7Y0wesO7G6R1np2Jd8420sq93ouQYFY8N1eSi0TLRJAUM2 3ApYjO3MndCpxdvQ8MA8 +ywxYu3uUvIbb7E/mS1ZRNasE691xGW4XCIiWsObWqkmonJ7xIfcMCgCDp0UhoFO/ 1Z0FL6mjF7aYEi92xq7/kGqahmpw375i4UGl6jvXI8rHvP2Af2d1EdkRQ4Y5+ 1mXR316hkFOM5K2lrYYE6ZxLVB3AukyW0/mn4y/L4d8mnFyzzr9lvbIkNrmgkuuj/bYoQ1hOw/ at5qFuXR2RzRzHvqziufwsaY1Wle6e7ic910ClVC2sJS4o71o1a9mJAO2UV0DFdwqiBD6w+ xmjdpfxOmN9Com8fvdFhTzDaWazMAkacPWgmT3NZVaO5RYfdCFlXM2gWFZ6/NU+ r014eNUPWO0VUL6vX8N510kCfb7ozsZudyu+ZPYuYZ5z0mK6pqPoarjMI5JEwo5o7jK+ lXn3sc7gSd2ggUZDm0ml8Gsz+UT3PXBa/ TzpQvjFe9iR4jqj28t1wgEF4cdwdOaZeGTaRQzTrhip5bQQL4tfzZGz1c+ OyQnsF9J66IfGtglMrJmOdfqow6coj7Sat4gTdV1+0mrlC8unqCPuH/Ce9iRbeRG9GlW2K5+ TFIbnaI3IgWG7P2iSSeUWtv29RdCWrubIBG5bYQYMjOfiatCxjv8skDLKg+ njix7npGWMgdttPzcjqtSqegMt1siMEyesftci98/ g2LQkuQd3WcxREkqynOPjwOmDubjC3meg63QO2gh/ KWMtyJGUSAQ4oziH1aqkQTGrFiadqThDeXBEN9B7UplOohhTiV1p2y0IBDkzHKAMK6IDKUlBpvSeim2R fiehFUnbeNi8rs1d7BQ0ZqgNxwmCjxclNLw6gKjOSUHrPRBmYD7P5Uapim6KuxoB /GAhu79Z5o5j3cmZaNizw5tLcvwhE2K9kv0arYAPdiFR9rx8f9qxNzfDbB0uB+ihL7aXY68fSs+ awjjGPCANl6wqOm18JnjzqQM77VyqqhqSoIcYKz9CN8nIrl4mfDgxD9Eqjsl6xr3uxhboG3DwazIUZiR wajYgi2cQQUzjRSZEPx2rXBqwXC5dX0MrEbtO4wT +Cl/7Rt/lsni523VxKeb8z80iCr2VsAqBVXN2p7Vk/WIGxO3H23e+YdRzYEY5Bsnzmzu+ WkF6XiZ7DARw/FUWj+GeG3LJ4h0lBb2bYkM6+X+koA7ccCN2PyzjzPBRq/ RRLTVPTOFSHcAuItz2guArc8UjBHEebGOaMv1AP61o/wCKF/5YQl12T5q+Afjbd+AfGFtpes+ RsIqpuXsOBjY6u8iyxlaVvf1ndRb6tobtW+C/ VFuomBrGkwQ5XoP0cXxeyHu4xz2pLFijYoIpPihcsPmg+fNloEUSUwTUYqQau26Ch50xnfZPSCg5a+nW /ClEc1Gxv/hXIzYko87BfGFlgrjbpp2hZl5vuXMk44isLiT9IHiVfqeOxPpWq3RgC3NwZjhf+ V7yEiD8E7dXfi0h+KGwZR3F0KkHYsaU16VtL/ I5utzNYDCE7Ff6M71MV6Fl5D86XgbLBIi4tRAdRyRjhj7feS5hA1H+2B+0Z8R/5oqWY4J+K/ rQk7dwPE9H+0f4Q+MFAqwIo0S90t9zBX0Nug19LFftKw/O3b1w30lCdh5js3Fl7qLuRgd59n+ 01IfSv8s4m9Hcmw7a8veyFO+5M6KCJ94EDk/GgTJkkNrC8Q2J6t5McehL8zcD5MVtdMxm/ aRFIoj0X5vI3i3ghuE6lJpbV9U7pOAo2gO49pfV8bx3OqJGOxAEOe6ZeH0f40+Na8KDf1MM0D/Cfwr0/ NV7u2uK1kOqnPZh+C/kf7x6231SqrnvuvHV0HgdW3be8NxGQZe98IWrUj/ 3z5rjFzwFlWgpI4m0JIlp9tC1XeMEhBSTp6IrLsa2tiyPeyzBYZPhVdb8gadeNDXG0L8H1ymhMWg7DTV 8jWfp8rwYamfQVNl4oFb1LaWzflodnK6FfrFx1eKAkklfCSiAVJt9VQ +afxQ/Ov1LuQUF/wCE8+Kh3Cy39Ss9OoN62Ywix4Rlil6O57+8pnu55w6CleeSUpJFHaLf/ wTvqGuyrzMUGJsExgd7flza41dotK0gFNR2ptetjj2SW/cV8V4PdTeofzisXcfdH/ CClpK34yFgWcl2u4U+Ed4P5flPG6r6GcHNwcdObpywv/XQfNvK5L0Va3eZZ9jL5PCRoV7qSdq+inx8/a +u3AhFwq78ILBoo+E/DrwXHuOsgjtsgObW4qhh2t3ghbUfiaU1E9NXAs1g73nGe+CdFn16+ K07eb4CyK7k5JIfLt41dD6s4wp4yxf2+c/7As7W1mvN8wECebwpae/cgyGh4yxxgBnpulyzsy+ PfE5Zp9wfqCU5f3I8y8ycg572uvg913vXanioUOpS32rUsaddR4lAZkr9NNCG0yDmY0kJLycvab9f+ KA3SF6rurMsS6pwiA2dxPWxZoICagDkEOMv90rS0sg0HIQRTLwNd2cAhUgx+QRvhHEXAlW1x+V/ xruktxuOpqA7MjvS5Nonxq+ZMti5g2J5as+ 3rHs8quw82zx5Qlmxf0U9eeyMhnPvZ6abYk9cWgOBC61lplN+BcDtkZ18Az+c6IwRzxLcv+CefwV+ JPw0/yP1EX1YN0XaM3zoh17/Z68Y+D/hNY/FWnf9elUDvt6Sid1W/ZeqRS7Z+JvibwnqNjb+ R6GrZ4VuAEi3MkjvqbeZ3Ac/U1b85jxp7r9X+I3+ WIvdSfVhLU6HphbhZA7X9o3F5sF90g5fHK8PlsBt465aJoNQOFpUUVxppchmP7c9Ws39sA+ spRF9f0n1Son5Yme5oqYFOehajJemyz3IjRBDN2cWctE2MYU9rl2rdDvtb9dIJC7l3JUeV86Ncrjh9me jaeHxbEc244nvZksaA7g6oGWWh +YdGPXPeRDMFyYgEaCPJlOKDegKeEWmcki0bbAbw7oiLnAhXJJju8+1N4y/lQ5GpDroo+rBhPj1T+ Y4cn9Vo+GsDszlCoKGqpn9p6ElPsIfZfv0G5ZF/rJpxccnP2K9vRtCXo2f4Mtt0p2Aar8l+JFxZLqfj/ OgU1p9xuyog6f/5Y9ZNAwnVyu3EREfIQUeDhDJ8ihuLfJNPSmdn2v5eeKrCd4kElip0C8CfCwa7ucX/ yIh9u9Ts+Ownmc63HYvY/XdrlbscSxm20o/Blr7c6M0SMPMrGy3LZCs/ dNF2e2wx3pz36s6XcToiz0C3Kk7hg1w8Xm29jTKcR3pLdiBBlB8ZDfRiB3GuHPCZsZu3BlCJ2tlZoKdo 21FK +sfCfd99YhYn85+SCQ0V9K7fjc1ihRi2DOwELkiOHw0gAYu5a8923df1vn59S6qquRBHF52ICy+ a2c2ldXMWRKw8uH0+z1C/eHAxU25CAhgq6BOmrBTzbpP9W/rjeRZNVmgqziPhOq33BF/ ffHiiEu5HtDdVNZyE2srNaoucHyctKBTVyaOjm4xjY8DZlMQbkgqmNBoAnFCUrbaftutcYKaR+ bK0np83blzafm7a0ltx+u+2+ lCfjXmbCT8l8sGI03bg94UeUzEEQQRbnWKjJTImzHExCIqk9HfDV8E3GD5+H/ibVfB/xzJSEfgfLLN4V +W4F7rPPXN7/Qru60/WtP5TwuMd47EvmcDpO4zxFb8u6TG+OHNo0Kj01J8zUFGGIm3G0cVCM0tb7my9e +a3asPaoe+u0YjKb36s0hvEfAq1yf+z2Jpb3Co3AbA9dMy7eg7kyE34mm0gp1iV5lY+ 0oBFdrEdrerCBGzp5Mhu5Odkc2V5CbGZUBHNUs39fqdfj4wkie8H8bl3HOxck3hfvaFe7f0Y6qep95Y4 e8V1HfsiRFgL6tjrYQVTeUlZbwK6Pdk2rMW8JDIR7EXXNAjnAyaoxPJuAtyOyQmK2p5Rp /I8t4KF8l7gukcdD1gywoT41f42DOcIKmIu6bqVwr4ftUckki5sUm5ipqBwXEh+ MlQ19AfJac9JT15zZ9fr/5bpEYF6XfVjQwzae8v8Aq0lJRb9uumfanLpoEQDPRlbFLJo9m7m+ vOcfyK2if5S4uIcY0ZWlqbRL/fX+p3Meh+NdN4tts7m6xM4jVqZu6uqz0Z3wY/D3h/ J9lCI0N1g6aZ7F8e5mfK597kdqYhjQ568nwb0t5/ dr4NzJFxkj2f0f0DKE3o4DbkMHMEUlrDVs3kgfWv1subAD83dGRYWfajHfHbsWDUPawWtmGMH6jWRLxe tWENfnLK3siVNPMwxdtmrDePaT81b + LEFl3Rw57d0KsggjC2Nkqsb50rXLjZ6O2Ma3yMmy7htQtBoPIT0IF3ed9vu0k7OGvwwxcwvZcYiqqKFu uADvvPIGRPu4OGFeJkigBqZuWPsljbpiEjK0 + Ad8GjMnf177bcekhOTxbUvskfJ87gCgo9u4xhybs5tUIw1rbtFhZafYhjfLd6Tu27e9pnB8vCJoccD5b i87u4aWE0IHrg6LfXB82OiBiHJCB1os60vG /fazqt/r14l525CbMrrqeH3MjD69qWryUTKj81/rD13lTa2yu2f4+ 3wwzW050tbIwMiMEGk3eZmh5c2LLSXaYsWwU7tgKuiRGFECauljRl4PQzkn0ZP+ LOGvxpwrviaccKFcRJuPFzG1zI21O0G4E8c8V4y5y1BmUxEG+ekUtFkKZ7JXZy9I27kt/ hyz9vE2nu8F42U8kyT1o16dK3d7ubb9rO5F9EBd4hxmY5gGqh3Y3pmukueo7rqCuKa0auJ9uFtQxuZwA aLsis782InfptnOflVCLM0O +Fkg8n7feOhNLf/QvJ+Lyih5b8fn+I2f1ufkl/EDw3Y6/3Dxj1DdC8e8Zl7i+u+K/hS0+o6z4d+ Ktgx3z40Y+FNW+I/gxln8A+FPQP4mMADmzersqc/EDw/wCD/GPhMn3y02M9nsSgeI6Wd1U/ Wp5zInCgAKXnpTuWvLLiBAFcfG428p+lcV5k9t43maJI+BNa+MGvG0tPZ2V/ABL4IW+8S3mp/ QLQgTZ8VYqnzk3Y6AGWH5gteIsRnybfFROTYX3gIgQ5jO9P551ZxtBTmql8LAlfarMY/ DkCywOxQqBnWtLTLK4trGuZmeUz9K4i30mt4Uugenoe1uDxskoNZKNgyEkXu1lb1aOHnjqW00k+ IxV5m5WomlOdoM9dRxq1CmcSmwbUztvZB/Hb4K+Ypm9usc0EIFlps/ Sp0iY24JQtw1Gc7c3S1i6xJZKtT6MwGg940Jik+3P3B8kRXZ02XatMq70H42cUy0sc4q70jnK9u41G/ FvV/lC91FmX9INEOq/FW7Xc5k6nXA7nm5NzQ+JugSeEPCul+Brn4z+ThRHeWYs0kd/xM+LHibwxp/x/ 4OgKJ94WZWqo/wBL+HrxZRmDzy46n2NvkwtsefvnbdwHfZX/lLU/ BCj49g9wdRcrfXLgLyA47w6UW2bPBQ4ODGUKRk9HlWVtCFIpr0lEoiCM4er0w9yHxNcYOMGdlqoxZ1nL uFwHhvI9ylMDXIYJVPMRzgOmlTXPGVNvC447oFTtt8ZEqLdr4UnJapwsebxhtnlbiXcGti3uo9XZ8Y3q LK8O2lykQ5iBzacPNsFBesBAwMnRx0jrUYUjxRLxcPzvD9a99ege1G1P 2FaXeoUEtcmF01p+EfhtpPhrQ/p4mZifsYRtss3Mb2DqC8g+UJbTy6qPwxESMQknpQ1o4XgJY0Llhs/ sCZsBkzx2DgFwS5YVmw+SfB3OwHnRg/X4hUduVn9lxPy5W4G+ t09EvN155I3HgtzVnll5rkY9he3ARAd91laB7hcLxi6CnsSbUtGMHs8Vs0/4kdGl1icZ/ I96hOjtioZoqr/A4wy17Bb39t+D3y9dhh9Iy6DnUik+ qGspRWNxGwL5k0OLCzNoKmMamBzyI3olMIiNk1v6zzcV8K5Tkp02F/cex2F7b9Z0csO3qLRrQx+ cBj1sfHU5ticN/ gLcjun5Na7UJqGyc5stgWjqlh3je8QtxWyZdpBqw1HbdiqftOLqpkWqOEfgMscdWsLkmdJFMbftc9bKR ygxVQxVM5hDb8Zu /WkVwOTZ5xLrIQvqs5VcDYG7hGASpucfx6d5MD4sIBNswAgF/aH3zg1EE9p/Zhsv2i/ ovsiljoc2g3G8eZSne/V/LxduHVS458K3GxTjsOt0jx/ 3yw4G37XkC3K29Sl5Gwm0lNpgzz6v7kH0m5wv3LzpzsoO/wAFmvHvi+W8fk88E/EknhibQPCXi/ FM83zd1aiMMGA/ZXo1w4Yuj3pveQp0CUpP2yUSC2w7Dtpt2pHLD0vPPZpONlBpzeU98/ yI9W4FpR5tiu5t0qX/IZkHPkhaadzxis3l+u20F/R44FrNatARgcXznNstB63Deh70Pwx7a/ 5cXyE84mk09/LX+2H8W9R+Mfx88c/NNXwP65muyt1PNoOhqrC0/ dkPhWa0iN9oRyvYO9NhlWLfWakpxPaIermudeY2FKNC3L4XRi6J2MeDvegGMdtvka1PtS6NKISwjPdno a9mr +owA8IaRNyRHMTfrkyWLGGAduoNprbg8Ct2CgNEavQfa9tTzlu0oE+Qf8BozR++tv5iXUxGI+ IEzGGtOVVxNOVTHBG7Yl0rRWETU5aoiRf7ly/ib+1hI1nf+ LrN17IOqWLgeLPFfOE6nciPFW7ZYMQeoC4RCqDqdRScz5NH5J2afRF+yZ9B8S+ K3i1lNeIptmdg4oirPuMlxdUL/ zRyTlkaz3KiKsopbAGNxQPVKIeg6k0FcVXyitsR0M5exW4uPKcsC6vRx7dhzTT0OCLxZjF9hk+ zwoysVcniDdHgzTR5ojLeRYDGhoaery6dMwDMo5djrr+ N8rClXlXIhrZnBhoj54Del7hgu3k2I5Y3NqWrNVr1w0i8G0CgWi311z3LYzM3SA5YnFuP2F5eHxHvwUA 2ARmW42wmwb76M5Z8Zf95rUjVrIeZjIV46u6sZO0dLWYqC0HTha6N /hPdaYnjrwprvgy+3Xh9sEBMz89Z2aO3sMWQXLh1m0i2H/xt4hIVeDi2UyFyK3/XtHmkhxfaPqFtqcS/ NuxGa0LPrC+t+ TmfcCvw9ie6EeffwLbinrnNgOcFT5ccdk1skwT3yo29e5r9HlBiD4hn3T8amGXW2n66vj4CyhPaV6SN3 Kx899h /aW2uci2S9xVeI3D+Xje1ZPBKDdAzx7l98GIr3RoD/V1xF4v4Q7BNXIJjFCx1KD/ ZfxZO004UdK1nI3iy9mNNvC0yM1J+ 5EM7m20W425hLpIUC1q4H0cqHxHV1ZNOEb0nZ6jgeIW4pYqNbQn440D1jyxizOcDZxzdVnaXYeJFKILZ Bk0E5mPQOvU0j +zVZW2g/Aa4EgWDo46o5XJmujl7k5KeUyO+YWxcDcI0ks1OJ+HfEP2m+86y2X2spon/ OpOkcYp9DkFVq91nE1GiZm5iinJla0DZsGat1rU1ivZi6FQw55I6K5cr2W7H1VBeDHyzJzcYVxamhL6l f6RBww4sD0vIA7K4Gl6 +4cxeU79SZy/ja5H2VXvH09IvC1o12hoW7AfjcoD8XtwH2CmY6I1vkYWAf5A+ XhIbigP4OfC8Ybu3dUaBxU+88g7kkLd2JUpUUSvRX8yBKhrTsm9RsfzGUydKnC8A9A/tzftD+ GM9nrTvq01f+ErUbcY9RaYG8Xo89E08Y2s2En7ZJoNOk8I6JeQ/F+k2ngjw/AeygrZJUr5N+ RbaMNHO2uRoEw9wtZ0b14yhx0+yuIdUsPnY/ GeqC5RhyWKPqTcdHq4DaFlpnHcoxivVSR0nz7oi59yafr84Zr3K9FfOlPv0tWq++ yafEcPzQPfg0jFvY5yhL3vXH7H2XMbdkGjtEp6+/lVjaRG2WVttsbcmOQkrn12QDjVRXiKWG3BCZr1w+ oZwitBKHt5xMn6h4ibAVhpoguy4QjwWRFYJExwxsDaAwwhqhQ6RSVw+ TojNJz4xy7bjIUIJfgfJbsbrE7Ad60g/FGc3kub1U839q2a0WcJj+2ezS12eDHBnv56oHpmRTp5m5kxV +yyQQyL9cRqtLNpYq224di2DDp/ DIIjeBkk02BqgrFk1xpjUFJmrEHlq1fVPnYZvtC0erpmfi4mi74vlcwDlbXiGIRTckgoX7EdiFnl2GTI FikgMusBHV9tfax0pvkZ0r /rRwdbJzpl5v/Iwm0Zc5jsjExiXxn92wlIQeJyp4U8dIPjyL/6JvVkkPgDszKY1h0vV8vKhBan/ Epe18CLP7yoMLM8TKfcXN7RUnJImODzHOOCJS8gfMCISMGq872b1HjXoUvkr6tySXuDv8l8FNayIYvvo WMu +yLvn7hdAqPBUu1RpdNNI4eZWoK1JEVZN7D5lvH+ R0tAUKS57rkCSfuNfAbDbiKxfA6sdRu4qrGG14Ea9n+ p5W0hW3UQDzoe3VCvWULYYrqeJi6rFcIGa53bECrbtm9aWwQnNVFcBemJweuLwaxtIlRTNxqXHz8jYeW QnFaJ +9bZn6D+OnN8rdsQ527x1Ro3y4NRwH9IipmshagIov097X8lylFEBdO7G6FaQZY4+ g1fw1Ex0pFkvHh1x5HpH8gsRCt+ERhzLJofZxS0CaP/ AhpFbOGj0KG8XGXejEyVesS75ihD8UZKf8NG13sXWjN8T7eUKyHi518TzyDO8NuWR6aFIwMjEMsLsyKc XuxOeUSOAOfAjc1dZ9dF3dHgMzldhr3yumn5idQqrb2WRHs7uh0lRN9biaf /X4V5g0lOX9g6Ow0NtbYV2Lv2mxh6qzRHGyEDsWDsEXkV6Em9TjCHLt7W0nxMYiho6j5gw9Z2NctD+ 116MCAFctlSpyQrFcfMGKk/ DJxigKmxacapaI0QyWf34hxJ05fOJ4anCWssIcZ8P4XBgklDlSfFZdj9Zz4UQG83LdcxBQbXqS4HAjNx FnBcZla3hDgKJuYil97rzAbxtM +WbkJgsy3uy4/ U8aCup0NSozTNrQehGGiswvWkQq4Z7a9N3Z0YDAXoC9lxLzNsWAiZalh4sxijBT2VLrmzLy9K8Gw0TIz 9OGMdtWoTvNv4y7V3Sbiivt +i1r7r86iZ7uxlzNXN0fYT6Lnkd6GStnaCnKAAMlZe9wiMBIjTvOIkGBK+gZYot8KDVr+ jH3tPz0KO2ms3NDYpXnRMBlw/EXSbiJvPuRApJ+pJLDvoWorLC5OEqcOKylTHNBmf0eaUf/ bkxnbhYy9AAaulVgxp+ DyDs3IvEc9Dm0aP8kaXv2u48ppkGQT0wabhHfcjaNW3s3xu8rNdK3j13BAV9873+2dsYu1nbXn2crUV+ LN3mXF4V4S3LgvWLM7P+PBuW89YTss34TNt+ FrRgrC5XApCeH6h5va2aVYDQKG6APl5boshW7nb4n16V3NgJwkQBTPy9ixA4vMBDR6rFbCdDbXHG8puu pBII2pfHE8gKtK3zzeVW1TpWyztBiESRGTY0ag +Lu6dUHNWUgaTTe4wXm4U6lweb9znv3krqPZAX8jtTFwe5gvYnHsVM9vhld9mpd9deS0fB9x/ FGXMXKni3sdb9ou8wtrC7ppIoofnQ07RJyxsdy0XnZVz6T6OsCAADx2VZz8kJHN60XzrAYtHTiNZFeFz HV6ptqF1VoPTwENpD0FVc /mPXH1ZWQS9E3psESBhERIiGmdkPuILHV4BBvt41UyuRe5oGi+ OantIailm0qFW4eoeUHnLIPcxTHkJpJYKvN5Eyqb1WMwIO/MWzhCnRp+ eiWIbkAxytE1Zit13vTgkyMhkbNSCcekZCwPX7cAizDN1CX12wfw1UWDUstdyc2Ds3b6V+IbCym+ qn7tf5xwogxPbxpiBjqbc+8eBLs9uscopkqz8SrgALkgEw+ WQzbpBHrJp4zr9BPCbCoR3B0t7uMgD7iFOayBfLGRmX7cxupB7qY4hRLFJgbUQaKkwNqvQEpkVZZ4sDz LhZgTeAWD0KJ605wJ5K7MM43VxGdxSLQ4q88L4eJUyyLyFViBGXC8BofnowyolOcU19I8cFm553 /dliko+ 8SquQ4pNr229ku51Pid1hNoyyQ9SxUvTqcT9gNS4u9vIAnVDT3nd7rRsTmmTGJZirIRXYcc9i4VMYnW6 jLf2U +bmcJ94viDssgRePALMA+ TLcDOOTHPWXC0rSBx0c2XskwfPfwimg7dlgnXmxl6mQg5dQkyGVa5MLfWUAAf3+ DtFHAjdBeMVC86M0UIZjLnJOeV6jSHejfSUjDnF6aqhyImLTGW83a3isePP1mSVZjC4hf5511e79n0+ 59EXTVINqqWr1SYbbd6cr68m2Z42WcblnhSLFlBJCxdD74K6v0CabbsLPWXbxzoC2buEJvyvzTCQpoYe 1Kmcr6Qzy8 /hu8il0+ 9zndyLWxmiXiJSnttzdswbEM7D28M2ZdjX2DoFIHRhWuO1VbIKIQlgltWteuGMHdhnzYgWjxFuO7PJbB 4ZSS +AGBrzN/EHh+C2bwx7kighobgUSxlpPkaT8uTXbxniOsVvuKcFsAOM0XqTdf9mCvhy/3+ b9W1GmY4QMFhe7EHoYbYpitck91mM/N79T2H+17LCDkB431AeevXRSKz8OkFLTL/ 1KuD13GTLSY7GrkLjBFP6zbnhfTl2DNN5sHauX0cut7uGU2eBOt1jFcEK+ NzOqCvMPOjCjnHndoHNp67Hrd/ 8P9K8ITmDrkvuF3okeAkvCHRJghUeCtpslbLfh9aGGr9cAfuuQoPj9Qx+MPifxW/hy98J/ PldDJdmCn4sgwkgNSLrVA4OUCSF1yMYIXGzFNwqKtvbJPOCY3EziFUD3YZMLg8Zdgy32gtZfgAF6tOsE ynY1IPn4HyPh06av00oqkiRqg3X6e0h136io6nQP3Aa23uDAKof +agpO3dl33gM0JZaovqAdiHa4iatVhVclqAzpkywfr6bO/ xBLVqQdXETEmwDnuN911QocXL8mRdbFWauzBKuXqscry8UU95dL1N2/ r9sxnPHn5B8rf46xyV3Ql0fbEAL0YhR2zxueV4gXbJsVrWlZA1F6fJABEt1BgNS9gadlzdv1AChKfn0C ltWsQvkKnDAS8bUP8gCee3RqNvttkM1t /rbMUsocY8y9yybXeQ19kZAB2tou+ p2mo6F0Ii1tYl7beKPml8jhqtEC8MehbQ6vkzHoqPAS0Y8txgbxmHRrYwlCw03wb8eLr1ZW+68j4VW+ Tz7PTglyDqW16IFO6dk2yo1ED+h9qzp9lNULSWkESMFl4vpwNEXL3yLkPY8GxaQmU8117IeY6CUep1/ eXzX+8Xiha4Xpz5ZrBjKjpNdaiVsvekYHBBb8xuPYa5N+ D0sbKKKXNPuUjAjjCeItnliNKhbXFOHTEuDNUXzGsQ4wqzA9g1etTs5kfAQldSNh841oqjgESLT81513 EB8PlOgoxJJvi +m+d9Yoqgmi1U05VoJ2+ eCBJ8cwnoo20ycHj7yMkLtYhmBAPHkBuQGVxHeBQD0BBMAtg5feu6pYdMxyHdezh9n1T6zbWvJHjbFIC 9gfIHBiTkY1zbJQzInurBsnIG47zdBB5Yo2s +H1pmG7XKhMfLvlccsu03nO6rZGc7rFGGpJ2qiDvqcsPYXjromityPl7e9yZho2B5JdUho4+ aT5l2skRIzdP1Sg9RaisTTBXI0IJAWrgJi8nPM5QxOvx/Zbkg6p9+quvL/ xmMr5GSkIkVLgq1HijLp26E3h7Ee11nwtto1HgdhXZnTLqXpLaaT54JClZqu2zQxAI2HqiUGHLwlyQT4 QdO0kLTJZtXKEVA7Mc7E8CQ7Lmd1r40pDSfsvrKunhMJ3ciy5M2zE3fKC8IJ /wywfSUgaIGXaKO8a5C7E16eM9kn68EnhxfeeMLe/i83w6tVtkP160Iea9n6gVbgYsTlRJLgRAS+ nMKf7pffbRrf4SU7rP668qMjFekI7BdrzUEgy5vzknPMsgCwbVOkKcLTnjha42wZDhf3YQU1863BY6XJ 3umm4RzErdvKQ2dGVDE13t0gdJIaXSsC4eLqR7d6yokJBrdUpcOtL9J6TU6rCbaCQkCywjt +vVBZ6YIXcafDbneO/ LUqwCD5vhKgEnCix1wrMIBjSN2WVOxvO68hHPiSy26qx6sWO7zWaLTVhJxDfShTln6AuM0g39WJqmx4u Np8g614aorfGdzNwR2zImLFxTXdmcSktGFDHRA /NoF0SAHYnMhPUMT0uR/ OQb3qjqk1lzP8hCdM4Yr6Kv1HgCofDUXQ8wTuWITmkCtTEIcUz1dXENQvot3yjrEF44u+/ 2R9Y2SqfRModIJ4J7ILxuffvQ+ xu4L3f4Xiti1ujoBXe51RY17imXV3InS4bIc36EhYGOIgc3aJDVgjij1f5XveWegZzGgrU4tbicr714C RPvzayqwsmHTjaZlzMJZ46QC9ZldIYmnvI4nO6gOpcWFZJQvN8fJBF6Z5ULkHx1xrUQq1E38X02XJsDp sgCMQlkgo1j1CTlwcT2vsv0BbavoWzZtV9gL2Hxb5bn0JiHF0cxN + LBozbzZoF9a63zWHpk9M2edMi21u1zzLSXKBrWJCDYye0tcsgRPLvGytFs2qrpkABLuTAEImb4Pcfrjy orJ30t +DNzaJ5LTowMypXtyE5whfMysgI2o7DmbBHzin093RaiBgz6i+ KHM69Sx0C0tS18F88w0mT5NpWrJOSk0PN4yzlWQUkmLrHpbVGHtOyCT7j0BT0vP6aAArvc8nTdXQXab7 Tp +xl36juK0sTg4cfbugDZipbrnxQ6SeJ9D9NJEHpuOF+f4U+G+sWBxppSsI9cZFJ6d1eWciMw8+Rose/ qC7pi941wMF31JzQ8bLdBhKjqZgnkxp+QJ8pplak9hPof6Uzgx2+ 9ehmO8i3saZ0zCvEhdUhyboUMadI5tvWd9a+zPPWzFQweQbSKCly0S2bS3Q+i79/EbBn6LflwbkXi8e/ PHub5VobAnp3dMomJXkR+ veuk0N9S9ARB8Ynxasqv7hi8RxN6qRUxqHcxEnZJ8OKR9kaAqMEsTouK9juOMQTW40kz6oYiclW2L0wG NR8K +AJRoyxgKwHd1c3+bb8w2KOARNkpc1aIIPBHOIUtTGk3tpScXTX4ePkf87Isdaa26U6WPcdc+ 9bfYZjMrl7ginc9U3z3R93j2xqA5NEzwQYCR8FiwiEl11+Sbc0Tmr+ WD90tyOSAkh3s8R1on6KC9phJjgU+wWKsqk6fAAyNW1UT0ojqq1oOQj3p9HE/lhZ/ rHwA3LgKuaTyns0c8fOVmyiPgeuT9R1EYNO0fDwjLjY2yGOFyirpH0+77rVlqkrq+ o8G9DVxRLUF2ByvQye4nw9xx21Et3IsB3CjxJwaq0p6Ig5xfiFiZ8v5jdK3iARbS0Tb15xwx2xSphdIt BXIx9eXto7NhDvdR5dyYyB22Sdsk10w2AvADExbc3alir0B +nkEScmscr6Ou5R5zI/ Vtvgxj0MOXDQpz3hiTxusQ0lWvw2ZZkBet4RTjiMtvtpCzabScUpSGlAA3glYYbdC/ FLcCBe2dvNpIZQjWoNJ4rJOblDPubhxeIQb3lOCKIlWu4nppdpvoilOuqxQrYRFQsFp5Vao6X2Z09oeb r2Ke4cTs1B1or0FSCm4aqXf140b5YNbnmuEICjUotldo41OSUvbdGngS8DU70o9v4yn5dHE1y2DxaoBQ trqGAghTa2JcoknL4TxxLHX6c +CLeNF1EPrUQ0lxc7i66LIR4T6YMN4Tva6++ 5NE73TBubtbhAjWVPpYwzAujw49qHi5ICqg23pYrvC2Zkhr58h/ KlIe1aFsL5l5C64gf2TXPMyEF4etMBH5LvocU5xjSKdf/Z/ IAKSUYfAk7SPemOQamzH8hQmv1fL5tGiSvw7kAknN6mkTMTSd9Qjsg9CfPAD1gr4ZDvmqNq2txqaAitZ ZrJn6KJYtW1pawxRf69Bbjtk0349Ya6oqBUQfEwVH9EwtS2Aq5dgAXhbV +1up9A/ UB02hLtu5415uCPvQ4k7kcok5g92aXqU4oyq63YkS2vj1rCGLRsbJejLmbpUA0WL2On6f7Y4PKayOaaD dNm1 /LVBQgcS2ArgEp4k6/1K+wTVzK5Peh++NQHFiNEFCliHa9FrEWOjSYQmMdvN8+ NUpvMTBDyoJsSkOqebvZItnyYhKmpda9tUsH9dBOXHyHYSM2iCX86sj090ON+ oso5qsY7ekk9s6ttG7vf7RIaekgG2N7S8jiTYWp+0FEmxMgj+ 5YllvjomaH73wBSwGFOckfrNDrso95jc8lPd7akp3RaEaGPr7SyPqqyjxrNl1FPJxjfvmTT1+ Nsy1zMiRw7e41bV+vvDIn4BY4UA7Jr+tyqQCZ0YVeHdbbYamB8MAR164n7J9hauW5upCTehAn89t+ s8DsQSfOgJt1v/h3dVI1vwV0AFF94nzujeUP1GH8mujDwAK2f5NV0DR0DW0ljGD913U/ON/ dSI25B3FThzYbOhSqd831K4x6DAudKddXVlhsdcqc3BSXuhpSOSpxPDzwhEYW4oeeKnkUwYQzLPHCVYM wGElXCz9dN2KXJxJVSWW7EXBMLK1J0dz5fiFh /r9kmmiQAlSMhWD5ql2vAKJ5nzQN/ Pp1C9Am1mw7k9fUAAhfPmxMFjdUiecqSOnaawnfo6GfZJJ2wvvddOegual/Xz++/ 7f3ITnNTr2l3h2yyzwzo4758psMetgoVu+ 4DnFtkLLbXJbjYYVrqOy3O6JZPQ6ZB7zkz1EwSHLhSGOkD8FN6gtIpi2kzg9kaDALSQrwFOLmzD1h2sJ DWpYTFeUApNO8cBIDTSv7ZegNGYnUeQUToGW4UFLAuVhMUpAXRwbTziJ82UshMEkkwxdgKIhlPi77BSs vQBKrldYYo4v9ngfUdRXwYg46E3D9407oa0szwoY6PQEcg6gKp6mSoLCijQneW +1btLtt5/RLvxjsT9UQvGiVWDfGxSnPqtVfkRUtryixlGwwcnEAjDvnHpq17I5+ 9Tkq9Iyg1yLKIhgJHRxjBb2bwyhJoXUfXPVscqTVMq8FuZWZJq/wALJvQVS0BlBTN1QsrSQGNNVD89N/ iOwmfO9qjDJd9si9v++pHm7lfXEUxsnjbLl/Ky8k1+ Y977GBvJGjso8dRPkoJkrOTTZzcou5MXNpanRazaNKMdxWMBM26ocIVj0H1EATXUDkL7cKMoY0WngAWb 4ixu6T3LDiq4Nm1O4SIQrDgo7KmmYMrEi0FijEwOoVHSMFbsi9aTdd6uX4wBHX0v53hHVQnyVHyPsnWj XXOYIx1WRwq9d32T1zCzCTDtUlUjsl0rygr2 + 83065NpH24D5eKZ33ZhzIqYeXoYLTX4I1IQy26hh2htL2215cSfd9dHpmeey8hejZfpW1ElD5wSXMRPh l2bzHT /NLBnyV1jyB9wyb29IoIXNAVhqXKdsYE7CIwrNKmtnrRd1wzScsoteT0c6dG4/ neqfzzEuJI5r6NuOV8AIJuEU6cSZIG6aRDVQhbyZyKSyCXp4MjDmBh5Xbm5Gl1mHwMyKgUOF8OtYPC1y OUcakrbDKsTC7JGHKcxLGXt + ThOyWZiyZN83qUhb450IgbcX6f2b3EbPSrYfDr116tOgmdqyrdDmgLX21t5KyzbKx105fsGCHJ3i6OF7 bhO6HdQNjf8RCEPEurzMVccCbARQxOlW7U8NMUzgom3lxCyb5 + BmjPtbj9poZx4rpqyV1UZMBMVGBoRa3TNnhLTIWylrEQvimddOf2uWmChvKwRVwdTouNeScpGqQe4M40 6rxpI8pJwhgqGLJtO1mZPIFoSYLsVXtJpOCTgdHvcgOJJwvLOujgAgjDFurLesj55Z8l +z2Rb2orqH6WiK8Ba0jEJHfTlhev8eHs7RoE/ vuFD4LGUqn8kuvLclzivvux1FBxMXma4oKhHbZhRz5KSWqzlF9Nbf3L38rmhdOlQFgFtZgPgZtMt2kVl kBFAIugGpYBIcGZ3g5g81N9SIZcTI5Ynj7roIH0cFzgMLCHar5Aj0Owxuk66oujH6GyttE53uzmkpnls TZwwYwJ41EOPAvclGrkX 5PdEDB3HRgHWnq3b0XjqZPi6cEf681446ay6OCJyJp9gxLqrqmthC1rwqibv5bcoTBxHN2izPn2QjceC KxNach5jewDTAPs4dSh0 dKEzVFed9orwrTdhSQOkqnPPjAKKylPdOH1aU1wNLuA03DSmEggcXbVQ2oNSWbDUiYYg00ntPxXgMtz9 ga0y09QDeq7oL1i5ug5U jJuoFo0BwM0esT4jUPPWrHEjBpQ6TwEk49Pz6o0dc4fywjVhy6Sx40aDz23b51jyv9vmrP+ rFHDLjyyMF3ynBCYWZIp1VQNCMK8YYqv7BUD9hNZsm5O7bUBZ3S1NKcbTRQZl1N+c7xuERsOFrJxQ9U+ NWPQWMgWji1wTV3zesYokLaRsNnrAIY3M4gyZPtYywK6KhXeKn7kHVT3wVuhDx2c3McJ6fLlNkvNKPDG ZgT5nwyorrzy0byHC0c /He9n/AFoZ+22hKD0btew9awnho2snu4v/AGVbowuALiRGILEhAIyGwSpyRkYXAGVJ+ lXHR4Ik6g3h7q5xD5bzaVcfyMlwyVCMiUCxOTQ2LLH7KispmoqUP3cyVlTkclqvMzWtMxyLzkFSXxINi lJjfxyhiM84fREjGoJV6Jfh3H3O4eUL9HVxP8lZzLp2l +8AtbvTb997nr7U07Zh963UraeZxRehEAdEF7lypjj53/XYD4rpQNzr2FKJ2qybKmb/ vOaZOJjM4js6A6Mpj5bFCdD6PHEuaUoIidO9UgglRFDfqUzTWB84MKqOlsWlPFT6TXIeCtEFhJoaLP2t 00DpqVyIOUl8NXKShiUNTmoetlUqN3BBrHQ2NjDqOnrXJ5t9mo6VPNbfIDljuZHN5VcV59GlLC0n07jy 6tX +Wm55+ O3gWXJepRG88ewxlsiFa4c0VutVxOjyHqXLcg28Bpw1kaF6aG1J7FTLaIg2DIaiuzYsej1HnIjEJOmu4 ntKnj4yVt4r1i9MOf /d21dDlCTbYZWITvUWA5Ui4bATwqZegpY5x+ZV5jPD2J7MCzsQiaCzASHXvJZQXiMVAggD+ iWWW7KkEg2BCi+nxJ7xEfE0JTbFcgNY9QDcQCitETVciZITS85w1giY+ xg6JDNTruw2rMzkQ3a4zi8Isk6DpnwlweFnNvdfSSn7j6b5smd9OHve0hMcD+I/dG2hd8lu5+ EyPeIHs22fXzA7lcGP4D9EYVxMZcOw9ZgwssWaYfCZQ8WZFue7W9nELaqovnynIcT9RWqxpImvjObVvJ / AeDMQRUgexi2iIYLEdFiwhdA2aZnUnTISTtHuacNAooWqyghJO1k6tPByediCL8pz3pgyPzVmLeozfsm ZVzFcYEErRXLL +4XmKCzT1vUoLS93ZI269YNovdpa0bNd7SjS0Ir5eT5+k8xFFHWV0i6W62xLb4+ 1Pr8gCl6g7pwHsegmGml0o7lQtAhJVSA4vmkXVkFWwZedm8rNgFOCIZFtcK+ 0bcMZpHncjywreQeCdQEXxF+T24Uzaza9CGEp3mnbA2EORc9+ 4gr3ZSlXGLZo9Fi2l6Pui9q0i0EGCAM2E87uofzNNrb21mX0timDOWj9Lmr4d3WWKT6Hnr40q6wobELs 6qoh39om191VWDfnlrtNqFv75QR9iPnuthwbiFnw2ewnnQ9XgF7x2jO9UvY3EDtmk4npOw58dODLaVBr sO5gwl1Ucb3NRF2gdqtI oVKM+ Oli2gR0Cm484d67XxK8t3YAj1MLlcFD9Sb011YuTkUK63aZMhIOmin2yhpiblOTLBQK8msEb1zl30ojB xBJfpN17p94kofEDmO2NtLg8wdrpMTnaAmawtywyA7nKm +X/WFkS1d49eN1J1VJsi3iu0I0B3zw2ruMMO1oc97IOh6lBeh2kaQytpEZUp6YUV3AnxE+ a8boZam2ohWRTqrVF7T3/ lPwvBLzueh8coxYahrvWwJ1ziILL8bdJMn5SQr6lcHeTRMHnPX2lXdLuzyWyzxXAtIdevzT5czAavUTw W8ghhl1BxCzihm3ScnCspHAcYN21Pownxy8n3t7JYx4xFaP2JoCGSZshxj /3yQ7E5V77Bv08cFc+do2eIZF4cFIJZbFdZmmd0Jeei0IutboqW0o4V74LffWZPkY7wfdTBRn/ oNu4r761d9An0hAYJ3qoxoYTe6sGAa8BT0E2V2qJzujGUFawfn/ As5vg0sh7d0LECNcKEt2HMGhnam93MKMLyzypByfXzIxEIret32z/s/vOFCnnE73uWTbKQpthgimlU0S +IWg3M+sB2i60NnwwWsxB6fV6Ph2l8ZST5isbO6TCtga5oHmUKSIBcx/hBfS0Psmchth6t3CwX+0j4Z0 / ROVQhxJJTruUA7nglB9QWRYfAcHIwze5AU0Ig9nLIFJxC14d9IPEZfaKwTAOiIuVyVRmhrv8IvbnanI2 eODOiSc66DI +i4ebgXANsSkdjDaaEduGmPDdF6Aom5wJhYIm7mhMZDthBU1KqpztQ2+ IdBy5gxNkcRQ4rs6SiQGAbkjucyoVZhOkMwahWpJUYny0Gd+e1iwX95+ 5vwpBNIz20jRVciQsfkHO6xOkNA1jX1JIVuYmIsfoK0yZRETXLgAB9ArwNvtWwX/ 1cXTMEztZefEJ0Nhwh208SaFqe7TQd2BWGgTDaJCcRYj7ao+ KPhx1tMpG6pfYzn6NqeLIx5iEJLhyndQuCk3nYwV5gRRhmKEuuW2XJe4MTmgaje3z0UEm307apxOrB66 6oq54xYoAZ +NSaBwOAS4FsvsO8rgCN2H7OqjrX9MzwPX/KcRs3eC5cwiIN912OjP3K+ R5M8eDbO1mGAiViWml0kfGnawg+1j9d2wV7+XQX3ZUd/TNEsdVTSbDU/E+ n0au7rRxnppDm9QrY5bKeA7ryl9xt6QMA+cw90Xyk2CBJAw7LdEeBcxyPfg/ j06KysQnb6cqA5a0948VrdF7gzqrbxGa3JdGuvoiey4GOfcoJkoYX3Os6+Vx/Qh/oWI6Mm2MF8K/bW+ DGs+JL6LU/jimmy+krUULkhuNJ2flB4j2b4KY7w+K2r+T2ZfNkoFauzodiUKwM/0TOvGUkxv0+I0Oo3+ h65o+p2U/h++ 66k57bzOxSbKJOBTzcY3y6eTBAjzcI3NKttg7hk0a3mooVNzEWszzYDp4yeTND13LAhv2apYlUyeSe8z f4z5hPXh8RtS5P8r /kfsSi71nr965XlXa/RfYA0qpJg0FHwRxdUfHbv2zbpA28maqmdPUdMdls/vdDxe3o60N/ Rn7helm1NzzVh40oLXJYSi/ M6tI1Zcp6WUWsWTRj2m9YmU3Sqk5nOab6Y3lb9wEtufndQbsOUOpI1dQHZEiYYr7xUw6l7GCVs9reLpi r +K7/LXX6CfGp3vjQVgeh5nnSzw+4I0dm8sXnLpN2d66Chr6f4L+GI47jS/Deia++ bbGmP5a61Y8pwmGx6N/JCxET77wDd/qmj+IdW+FldaIek7JndEGwPq1X3uWczqxvmypF7Y4I/ SqlDMn9dD2gcPmE3uqW/CV/Pc+NnBT2q1w/eBArY9Z+KOefG8Zm6q7gFQjt15w8P/ rABcyD5bRpPJszeMilljJthALwLbazLpML06CeU75nh6fJFz03fvff8anapvHhiM4cAQSCszeapIKiu4 KdSzLJMh1c7T0WoFd3LbqF4FQBcwrWer8 /+T6kmxA3uOeoWadZRw+p3+tynBuq0idE5+j1wabunOIJ0hZMwCdNcLsFJSiSAPsO/iB4x8J+ VNp16mdxKzGh13h0sW0keY0x1l1K00cdvvfE3E67gllScTdzn3Br2lX895VplUViL2zmLwICzMoO+ pfDLW3+Fdpd/s/eMNR+MNn8I/uEUE5xnKrcj9I+GN4FjVsgHYdi/p/gN67vm5VVj+ jai1EgA1rjqfhgX5t5VJHhjjYD2ZayTqlLJhxsjyzMypzT0cwWxiIra1U8l+ R8yMgm109reVjg5Xy7EiwheU0t/YShh1k8on4i9kvx6P9c+MPD/ XK9x61VG2Rs74hyBOJfyNqo6iSkv9N4YBSgkHWBTWS9opGrYxAgpBt8Lbc7nNSrCk121aqKQ5gUL5JU9 Bf1aGSUA7saRvh2wu9UkJZHSg4l5TemYofkgXTVuDpDjrYdPlGarYnUgvdv7shMa9c8cUQa5RnZ69NHk Zo0uv7FqGs2ciy93XK0AIwg1hCNjLndCE9eQ 8uaU8edqrkTNsQnhal6SbfWuJwNAreB+0D4O+Y5nxVNcVgbrj/BRe35zbkU6/uL/QLLYzB82suH1P+ ENf9Iba9/SaXp8YN7Rv5HhyR4LCyc999Z8H6k54IGPfj/ieXjMlFRaM9vkaxbc0FH1Os9tFWFt+ k9o8lUXN8l3lWERblgPxDadfgynSr483ml3mfXnFhMVf1jTTfVuUbcu7z0u7emNoIHW8ptVfPoGAW1Sx 9zxzcLL1jluevFeFrGrKuVz8ushytfpd7psRc +go9LsQiQXroYI8vkEzJA5foL+vw0VbgLG47+ BjbVaOQT990Ei3aupxVXcrz65I2afpyAiCLiNv5NiW2ntBob4o+L/AId+EeqHOrKnkkVcfD8A/ J9vMY5G089L5abIysf2Gpi6YEZlNkJHzvAol50M/f7vgss3EPLn4xSM3QxQe7N/1aLw+ umKhdQkz5pqpbm+8B+Vvek4QVpizOtkitKwsw6ImGfJM1+ uV9R6UzGv6G3xTCdNxY8f46ln7Xb4m9Z3h6G7ahRChM8GbLm1oP0rrRlmkYPyqi2qhxqZrXMSrNwZqEd MmTeLhLBsQHKFjQ5YyEJ8U2j22N0NrEHMRoXocgDuzvudHJ5aQepiEzTBZIo17g4HMEj40ELh681kkv9 gtZJm7IQcQaqckeWPW5pAvnDBL10nb / oAQo63OFBI0guhnQs7ETXCaUcLnLQ0qPHJ2cYw7mtoARlOmZ5j3eU8bw7svovbnVhLN1nS7AK1kIZjl8 j33MOwxsNio4g1vem6O7LYkHprSTfPhy699jW54U24 /lNHhXeDca0u5k1u38/ U9H3E3moVFX3ZHeq8BEzblN948hZHxBnev4MaE7yuS4j3voZz204nNNkOZntaVVcSF/ joFsqUFJc0xr1d1Y/Ds9PpY7LxyLd6wmyI+B/jaiuVGx7PuO1H3b6+Z1fab2mKQnf/ 6HoSX6XgF2y4Bioc+lWnw/wfdQ3MXBK+f1O2Oby3r6LnL5g7L7h/AAkC+AJiN2IaqIpTHc/ 0IjRQGfw7WBEphRDzzxsCiRzAHOaykJVkUSWHIYHKix9tn0igMmtBjbnNq8ytk6o8x8M8EDp77zGrKh9 ggWldgUINL7E0AmTmUla1HJCAVzxWfSnkkQuWa5wCdoT3C2OjL /ot2UHXdda+H2jz+FdVahR3G+ KIESkkz9J1OgX9CjGlv219vg8LwQqPjnHOuGH2upk0pF2CpBAqrkWp5RVLWflOc7hiWzsjd+o+MvC/ suHSwX7Y+I86+KZ4R8N6lF+zz4x0/LKVKAjqm7pJdcPDN/xp+EuywHelmsdk3ZhIr3K2g7IkiHVsA+ LOoW+iRYB8Lk+Jwld2Aw+YGJ9tzkP+APDPhPU/Afxm8Q+WfN9lYKjWD9q3LqEafbnOjtmafr+ YwP9v1u0m2PeEvyed8V0XG4T8AoKiYyQ1O9W0njFomM/ElkSbT2rhR6QbX/S5qjD16J65qT5D1Z+ YjLfUtfq0nZ3P/EZ169luPrpWkr3LGo8Dk+G/ZiocqE3EaVhM0Be+BmmqQH27/dKWomNb1j8Y3P0o+ GLSWTUtB+MjjM4YkKhESzwRBWFxTClsE3e31i9mb4xlOsmizi0G+22+ fa9S7nNFYbvS9iA2184wrNKpmYzntqEszVvcbc4HZdP9M3F1lBxYgL3cmSUy67OJSi5HyLauJcENP6PW H9ksEkdYvXEK3znrtBlji3I /FijvFeDmURbClOzTeVZ1ot+ S0is5Hc6pm5y3v8y6Jf7x0ER2PbC0s8yhDbR22VQU5T0gDXzd4uHcaWVrMizdq7yV00zd8wIoX0pl+ lBCucQcJE9GpNlGu07fdE9WfGL6b0akQGczxnmbZfmgIpAmTJZiJLxrlsRy01Lj5oup7hR5uYkP0zILD n2biltvfu1tdN7520Qsr5zIvKKQnDkB6LvgwYpjibgNf4KNWP / RDnziIf7B4ucyVFalUOv5IKGCP6jHw9DZ6wYGdtszWIWiljTCqHQRorFkSt5sQhVMXL3rTqooXVCEKTW cH0DnVrnEpahaEqnVEMmYXPVf1KqbgSOy6fEwSIouBaR1QlcK6BgeK3805gogUA02DJjB0DnKkN64oep QLmK820m /QtTyebIEj/eeXuLBTuyxUMwOGZVKjcGAIKkhHRWCsKRRyckHaeAeMbuvHXK/XK5xH0Bo1Svm538m+ Vpum2x8ln67TfQBbg3asTio/ i2f01x3pu6smbKzJkUgTw3c6y5nT41ePK0j3jvZS2Z5UoNe8XlPT5DodBnapb+ m41xx9guQ9gCmw85BfXqY1j+JNZT+1NJcxeHfFej+F3mN3kaOUMJK9fFvHryZE5pWahAr/Lo2t+ ODJ4Bd6FsewbVaplIU5i3/UPDFat+RAz8Lawu5rveInfywN2F8+uqzYA7s6/JPpZTmae0Xqrd+ x9BjqZj1U8UksDF3l4Hp3wZDyWoFq94CpB5imEtm2tzXtYPacXtbGmP3abb0JfcFkle1rdkUgvKSo2Y0 fdTIJX0IWxmK3E8AJFBNaL3umJDqjbUVmwm7oIZYGZdVIIzhdzQmdMHko7GveSXNmoBND3aSuRQpV7GI HYIOGAR7efk1h1cIcR0Oq3VY0k0J9l8y+ 591raYhUNNlHVZMcYOh0nRoU6sihwrfwD1mve0I3hq94pROW0LMSI2inVOl9Y3FAIUpNV8XJgMUzdbOQ q2m +I0El5vZOwRnnyi98bf3h0BChGKmItmEdxzzmTmk+tC7yJbQG66UFpd5ZJ/lcGiYtNLu5vo7o7Ieun/ M60hSbknN8/pg1rdjU/k8XdT5mmGlic4Dj2pbyY9GCaypcF27P4mqqzlJ2256wg8afusjsMPueSzby+ nn8Jfmp0UbHewr2tLT37Ma7RsS7Z19H+hbF5b5V47e4v5a8mN0lsQwuf+ FzS4e5mw7vO5CbiMggr2E7dnW3E25RA4UnVa32j3tdqEa1dd9zEJNubZXVOYstfU0xzqjRaHcWBzBMjB oP8git7upesw8YLFqDuxFMrJlF31wVqen7DfVQS26qvV217o6sqeovF8X35SYhIea47KCqZeO4tGJj2a e + bgyJh1BmqrvFowp2j5eKmMiUH6umgNc3Ovw4J9WcFfZPmi8B6gPizlRfwG534ww0EnspEu1n3nhIpR1i iLgQ1PxeHu4Xlc9MNLQDZfBZgtFLxdv2cVkO0Oku8X7NvJ0swKwZgimos5NnDka63S +ShW0o2cfNoX8u+Sin06yiMXECEubgW8H6T+H7i+8O+OD8qt9UR31QCpPzZuw1VRf+rnofRb5Lxy+ GDjPsif6Dsbn+py+IgYex2uh90uOi1On0Lv6r+ pxUQ52viXuPpYu5V20rmBlUwneaceMDjPWfeG4dKHzmjssYi5nTzxavTdg/ xoUzFMi8mbx97Pty2NN1L355sFTZkFyhePifhQJgyuBoTw5CXx23BcMdKU+Jry+1vUrjxC+ 7AP6ssq4eA7iyRNaAN5gvpiGjDzTLFkdy0Rxi1QZQnUoZRCcMY2+ ozX3fKHlUSesNaFuB7wgqL12TAGHu+0NDSwhjE2+athP1sn2XYWH2msFyo5xR0J8CvA4Ejy/ IDRX1EoFkofUx7PK35YjY1HVfSEa6qq/ TER1uz0wolL4qJxU0YrK8mpfWVkjNZp520FEGZbP2tNLGRFqLwOUlxNAbmm1cSc/glv1hoemw1DmM/ Atv/oaIigi6y7A6Ma/VSQqLmE30q/r5wza155xO00u1rlZmo5v+ Vx0BswGmxD4d2IpxLp1CO3Wk6avewmJifnGOwdfwyOwTs4uXnjq5+ Y4smk4Tv3alke0h09p9oyk8LB1mwnuAveZtAjmgudr47hAlkv6qQKbOk0/ v8G1fW94r8nVU25NB3yjh31B0dWighpPFepKrOc6cMkLus9IilB0yqTkrwyVHzAsgs65XSV3ePOqyp7M 8Hta +KjvEkJlKa3pndJp1i5R4Bmvlop/NQv55MIE4ovS/fseHBvkfID90cGEXW9+Oz8T6/qFlpfhW+ 3zKRx1oGARqE22v09qwp76n3qA7Ojdr8kFobOvB6pqQt94u9Rts3ap8zinjja8XMm7uXTaBBbcRQcDyj T0TyNDiHS /C74o/RD42atJo/kmfeaze61Y+PPD+lt0HfSt+Lta+GDipFa5NdIohol9GongIzlBYl9n3UjrvI7Qu8B + MEAkiiuRItKRfL2fzyZqXhEAcurHsPsnYgY1u9yEC961SL0df0qmBM2SF6hDSDawaZr00cCyTjxJX34o t5Hjiuw6gBSKTagco6P3PtP3 + HLKMAk7lcdn5gxKwqosl38Qc5xAQ9hydBCj2pFzUVD7OCyKkzB0OPZC7ULWtnp2X1v8C664I9FhA1c7M 6vqvh /vP9u0xZJa7YoTRC5H01sC/D+flFsLvuVt20u7heoPoA+l6zo+ oQ5qzRjgzP2BP2J01jYuPj6W7Onw7U2UsP5oa05w5Djrgpicey5tuX3k6JwLXS24zXxkZbLa2O59Qjr6 ReUZTUJsyFV0sGkO3XyPu72aa4nuLDJSWH +slwEZybyoXbd34VIcE0VYXXFNRJMurgnOu9+ uDfzzIy24sWyNWFSR3iAixuJzcnmyNyLFisPNdIR9dvRUsui3hT55cZncu1bnLYz2vhbMSzFYvruQcI4 eXR /Uvwl8W+AQX1Om7K33kYIvjqb17fWvfE+ vPt2vn2k0f7wq38HKdTjkslKqcio1xjnekwIpqwv6qEndQtMED+h/xD+MP76sI1gaK/2APomUfdN0E/ EHhXWdH+YBneVisP7Ws83+Onxk8q+1pNMJxsi5o1AqgW8blxo3En1wjjiBnK39625Eh/C/ ynb0f6mOeQqw7JO5yr5Lew/4O/f9tAOnK/wTFm/axvP2u/x765lDwb6Z7oeKoR6KUdbM0e9/w34b+ YfvIhhGaht2KlKrt2ih8tgvlt1t58kv5ZgB2rRe4Eb2L0y+ EirMd7kt8Z9g3enq2n7S2dY8u9HEf0gkNk0r68L5oHgi2wFeNSX4vlyishFnu53Ui6lYVKl6tjinZMUa zKeZIo85q7wxG +yo5LO5+Qy2tBqsNw0W7hLutamqZPFZyFfJCnZXMUorq2f24Gk6fpM1CE3BlTVm0ZkWcnR4WCoYkkNhq /t2QMgSTykPND8XD+a1vqNkZWIeO0/LvSd3bAQWVgvZATiOvma4pWuye3oNVSLRCCIViaYwDcT976/ ABL3wMIwPPAwPeaHOyWZmCEOVw26xh3X95siMO64L0ferAWPpJYSSz/e7mv6V/wDgiZ+sp5LTjq9P/ uJ7Pu3d3GrmRKe8QlbB11yT8e0/XUeU512/nuw16p0LjPqMnjxai27qtpFiiySjQ/gTw/ 2FUy79G2r9ph7W3x2ZC43z1PJvdiEF1gi55l6GRm/+xp8bPH/wM+N3sxtsn3HsXkZ4ZzHAMETc/ wAQvBGqT3//XMxMrLd8HPPhKfmvdgudaNhzT0Zd4Zzn/ oLbfJxd4ya5wg87rWAv5uYiQsMTF60kCXbB5o9NgQBtLP6GLhhXyt60+ jNwBnIVidsWUh1FyRHnP73CvgeKoOCcSucIIopvTeHXsGd4LFHxS9czAAf3Ytz+DnKkGm6PrA1h/ BrXNR0/qs5Dussvwc1E5JxEjIKL5qpiC7JFx1UGCJEWM1w4KBJ2uSJNPxKtQMJ8qUS0Z/ ocZMuO1lhIiPHqyq1d5vaD0pNTQTBOqxrBf0ZOsgHJMvxll6RkESKNJTOzY4dd65Qf6vw60b3O4jirPb nK3VzMz1IUmMmqY1iVcmzbBPTdcp1QfLWHoQKqUU /XZ59qn0gWGVd2UZlU4yaBwB8kj73IwHuJ3uo9OxNXUe85JUrBjzWl0kCGZqKLYHOF+ g2FcpbQVF4erhelB8c588p4vmxN+pj8yqQWsvZP2psKdFkJeyabMwzK5L22YVUXIkSOpf4n9Uw+ 3LFzX35UqLGVgNFocCZfuF8DtYuArAY6FV8jBvVfbmGIQ5/ iB2WocxYy0nFkLJVPafauGCyPWyD9NHBVxaTZzhLqaW/Jxxy7b76/ i5kUI5jpAUODLQYUKnQ8QmZWmfM0V5oPoMzY9Ybwz3uZ/ PZ7hU9iG9cW8VFAcDVuodKSTrQFbbUb4tsIKyGxQrwQgHbUxMQcEOV972xk9td1nn8/ G36ER0SbXiqccf5r9jk95u/e59UeG/ N34a5AvfIkDFCEHCqZYDcobu2RDSdboEO9WYzYPUohrs2DQGaRM/ fKQgJ32dB5HmuTFsQDWYpObjsJSYXYmNBHPODrq3OODEIwp/ HxC4zj67s2yUpXWsVj3CfGm4wbtIgn9B5iyQBpsNDIVbIR298f3mErlA0WQcvC9fRYa3cLQpnrD491Aj bUqQFe7v4o98JXZge9XQucUqhiyeq9vtgX /yFYxp08sNbrdz+ PXrhNlOOsmsR4wytukzPfGOcFuDkVEgfAC0Va9nphxDv7lg6uIOWTUiJBsuxwsnQSPUvssVqvAsbwu55 n70G5zp0yzNSgdwqkgW0dwDlD7 /svzfc37Wu3CSAGhaWKx3qV+EbBChaLvsolieLQfF1odty4YvXKHTl/ 7tTyY4LdDPBqoIXIYggFwRY3UP58P3ByRdkCj5XsfMtUfsiEPGAXFR6z0laMVhveEafY+ FAWOeBU2fY4gLqf7/h7NmthNBVbXpGOr+qf0rfRYTymgvNBMoL2t3uZO8J7x9Ap1F0ns5vliWY/ APaltFHHfX+i6wt2CkOHaBiNgq9yIfovFZFzu5skN9D+ DsbnyZfqmc6H7S0wcqqTyQqZVdKI5aKEk1zmVVasbFGe89E8BzDyUfVj/ kf6v62wdisDBXBjRmSnK65KMiINVCHQKeZdW+YqvmR+CFq3xHOn6EM53/ C0p0npE1Cy605M2RexNbkTV5zF2oHdxTgjMemvjICW8PGPvWxRDbhVFGojeZuEZrz/P629Kqfl/ sT6SQhAQAmY3zbroYgkQhn12KlvsusPD5pn4L5p2FqAJb3ac+Fe3HsYemqw/s9rJLb+ SfBxjOpdLL5qCNWOfXlcy7YQ+EEBOP4FPGz1vS5zuC4no2rs1TXkSECKscYWl4prN4BvDKt3iHrw/ TjcBibvcT5Z2O9QntttBY6E3vwimxEHC38jYuGQBa4qQgzpmjNPU1lbUylNMzzQJqvDJS/ oAYXzDNDKgDgNg1gmwXlPlSmFMRvP7xJvKYf3sYcgk76csBi5p10U78fdgsq79+ yrqKgMNHWzCuQpbpvCmtGYEmqg22o2qvv0ocrFanZ0lYYnVkUtGD6HBaRJoivRcVeOyRVlIABRKJGKou fObd6qk7A8zgugG5n1yRuJX7COdmR3DrmaIt +H1PT44pN388+ z5VBsg4hqRW9Aub3AdFmSBTNdcmozzvKUuM0KKwtzQAvh7X4H8YqdlolIUlCssvoJDIRBi/ FsYVJSSXYadOX6xOoe5LKtaBhfaZe3951o8p28/ K9jVdZvMhds1n6uovy2Hr62aHn6x0XIjE2v4ZGcgJX+6+ qvQhnz1llFna6sQF1m9RKf2boKMHBQIxJohgq81gKUxVGb/ PIEvwGfhVYRSdq0j9SawFC6GAvhfDvJz6oUmd4clNkyyIOSEHn24MEgkd2fk9OP+ op61RmcKU3KfmHDVTeQysEJNuw+HrG+5jTNH4pQYegj8z1lizdI68TshXKhrxbc4Bfo+ BQ6eTPjJVPlbGq/x5rz4h9pd0Qdzt9zX7u7plOTBvG5fYd3b98Wzbglaa880Cuh1twYlJ94+ AtuamIiNkDM8Du4wqO7nnvQ878i12wPwvGxv4IxPT1J0N2RVFWKu/ nykeA0Jyry3isfZ539k73LW7005lCYPWE0lUSBsmLJmCDRSSzxztt3d3w4V/ AaeBt7ka8KiozSIAUpIfkRy2OqtWrYGwbDTqhWnVypxTmbkYjdN2gpWf9m1iu2aEKuzJrmmBORT3xso0 lSk4f8vWBhEpSmo6YiRNoP8Sip4hlfuH07fud3czZYxd85Am14C0MCj2La /wAxCuk+N6hKB2bUI6f58JGw347zj5U8CSqPaIvqXSCMPBEn8Zc9uEgIoD1Z4ln+p1UkO31xVw6/ czQZzOOSAVasRTU8b+r2mh+ZhT8gm12+vsEVPO5LZkU1LibjpDwdVHYGgWL4ho7uTDLLSHR/AC74h+ LgeNtGxzRLh7y8L8t7eD9lhWU1q6RwBe8+7VjEgeqzJGJe8xHWTfdmjbJqXMrVnV+k6Rc+ AkMk2RlH6x6fR07JaWikLXpMOKB4bXlCeJnLLqOzvNN7v6tvjaMdVtdYCWacmbl2mkqtx8Mg3Kfz8GKX hLHBVirp5hwVZ78G0tjXlRsaa4OnvVk7Hl68z3kmO5QY6V +HFwT2aN5C2ZU8Ety8etfkuA77eYwnRQDEPce5g+M0RQOPiPGu5IXkK6Ogi/44+ F2z96iKfBaoTnL1SvWcZ87ltQEConhsevsV7bdvw1MeQv2n51fV0fTzEhY+ 3vvU6T7c11REeIVdfXgHJT6x1T91ApWTME7lnlUQAiIFWPKgflFial5hHuuZ+z78N/Wmi2efpS/ 0wgG08PNeYZHXtOLDVadaC/Q2dNktm7RCB2AkDcNJXdr+ ozyGPG805wHugdeCuHvdoh02dVbv88buza5Dhmekyhrmn8ksQfTpjHfkPiECeOdLilAtVyDyTEW+ G7mHvmi5+ h6Dn8RwXLIkwb89Rng7qjxrch2icL2iMtHUVy3F0YTWeTHfRVpegMJRIDWdp7hcm4Me7LflkqfejRT4m 1R3kxHbLjbyGLe1Kjyc4TXy85zX18mCgFXZlCOl18XJUKybz03oLTCsLA3KpKf9M8s7RR9hYVC2pk0IP ZLPHqHtYNFxZf1jB9qoMace ptro+laje21/ sssGCBEP46nZ3vxExtSfGDwzWOCPPNiCrBnrASgQCBPBOrtpBQIYfglOKN4P2a4861geJb5VEN3bsmab ixA6T06kzmq2FjBP278776ayIrcLMnHF1A0pehKHhp + 3N7pI9t9WL0PRCQk2Bn2ZK3ecSRn6qhJ3WCFG72XBdgvDtlnk6m0bzZqUlDS3XiQaTPicPBvzPltPtvZ cE4dZIsQ9 +lSQ8g42pLbb37aVQ7d3QTL+Ei0/ZLE7gHE5oWezoQ2lLmRInaggL/JW/uCYvLdAwiWRJSrnD/ QQn0SfqLIRFnGAB5wI+ dk67OoZVbS3rX9v14n9fF8O1I8rbVaithLJYitQim4UwPHCIfoefIsfr5grXsbqXi3Fc12Zde4VXnoEI lxeoOjzGuYQcQ9qMGK1 /rOm8uzikD+D/BfwAmsPFHibx/rCbAiA71j3ec75KxHEcWHrVvZCEUmVG+7omywTYzEzZPNY7rwO6jY6 /eUIY7JaJcj5x4e6xwVBmBm685yIoQdE2hDE0nsLMTZh9q4spomIuXFWA1OZB4yk0q+ AB4Ze33QWYHKdcyKVNj/LiP196bWGfv80pV3+ 9S3LVLuQhhX5XsvP6m7iMlu3SoXf0KRv19LhVquaqYT5Y5f1hyjZ4sbqh/lnlEokmMbJ/qfsjMpEjRRK +E5+KHEjeWl6WcQw46n2W31YNcN+SLGp17wWWfhJCKiDCKJeZeyWqNQkYRhFHNBItsev9lf844sKb5+ Gnh9uo3bZEpzW8dx3ug1LdjzmI5xkPIANxY+sf2g4dFTJY86cknvi4u65VpmrBOG9I++OZlqKd08jv9J +waW9NP78ZrbWVtFd6Oi1lQEzh3bKLMxImq6jkkA91OyWmipPLPGQxqm5OvJ9/wAP6jf+ SPtkYh0V2Jy7Cu1A8PSPnDfx9UrdqHXurqvKWCmZtUpETmz6tiC3FwRqznJxH5FGlSiohfuazo8uarco 2cKXAsqEOKHkw1xUWVx0XENtdaTiJdRGXKyD6nGzlsEHQxRvoCeY9Yig6pCuZE0htpFwMvNgLzDtHCs2 UYfFEVzUlMpz43xjWofgz67aZ0bkUh /p553aKFzCQxxkjyISnV7fzo5SN2vrseihyq1nUVIpyO8QoDBZ6iiDzcs5cBKwuu/0E3igoVtG7z9m/ aFqV6cHbEGa9gfxTXl2mGcpf4x6xKyVxuw/ cqibxQk77Qv9wLiUbiQlzBZt4VhNImM8w1DkIlzjFBwX0e3Tr7yzAZJKVPYyN6fKh7Jyvbziiibxz23B xtPezGK31Z + 757zEy1KjH82hIbJkaa2mt0dm96QsbV4g4vhNpR7ox5O3gpCYisIyYuxkgXEQFdtNqiznsIVLygqu7j7 aaLjjzSBvtakpr6t8qlzd0KSzRfQpsLE +0lletM9oIoJ1nNPbB+ NB5MAnlW2QkZWwdKmpjcYj0X2mSJpmPW0diTdV7UJXPvOiYjy3gimDNIMZI0wuhwnPfVkJT5t/ ZJta51NRfJzwunevkqGoYL1t4oQstydn1FEj/GLp9n93mirq8e9+ 4IVjCRRlJDjSdLWyq5qkrKfhbDVDwqLmhxMV2NBFifSfCus4xxZ2HpfUxeDbcE2D+ uzqhJ2uelekgvaVplxcwrDPHTAp8A8OeVwE+ atw2XsSbPkcVZhuoPTJB7Uec6cgAJxyTsfiPlKQNUunjIz6QEVbTSm74wqxqTFWyI9CwGusBuJDmv24n 2bm7d6QeixeulAcsyUOXFNRKDTb4p8j0pYq2iznHUzqTqe6O6ITyL +PhwxsgX0qXujcVpvMK9yzok8B4yo72pGY5bYrgyWwm/ 0zsmOPo2ozWPLXF5bS0wpeuDX7D2V4Y7Dc0cEG9f2XXsJmDnuiUkqB6D4L33dmk4oDjOyZ4qcziH2juJ ykvBbeWToxccv4R +IPx98D+PITUfQd9thgyqj4vlNNzBY0Z+z1mMptgieeKQN6kbfWPKY4DhkP5k8Z13tAnHwu8/ aZ43w1vu7uUcgjDvOkFKdYkkAG2K6zkve2Cz7z1s2LkOBCykpabaE00U27FhgjyseXJfK4dbjHjEcDzf YRmu3D980T54OA5rd2dw9wpDo +8tOQ11axZc7e8WJgMeqSoicv+JQt0G7KL42r52Ran7B/hx8Y/ I9esPecoWc5f0yIt74tfCrMYtohjV5L3zjI7eVJQjZz9eBwcN8MYdmcvc96KBmj9C0K98nGp+ T20gKl8ML1odRdXu0evmoo9kMMHq37AGvjMzUlkvgO7Nhxsnq7MQmJacwrxhlN43/ NS8vRIitoVlEeDBE6zcg458+ z3KzF6jpviRopB11hVd5dJvbGMBcuDF1SieKyDBa7pbusfsjkSRLg11VqZfAwj32KsY5Cb+ EYs7NkD4GIxU17Fu6N11IJelTTyuZOrmupnO8xy79qGg7xjRyv48d+ 98pnBfWdBfEcPihnKn21dpZVUa631fMChh2hu1DTD/ Mrqh22dnTenseK1S3KNxLmk3jcGXen3sLCjBcMVozXosh2ZpPwbnkxDDRwMSDkaPxFXP4nQgwMSDjSIr +Gn/tzwjp+yD3b2mwmktfOxH2SqoKbmOgqmecFOVcoW9IgljNYfuCOzDNHEaUNdaPnf0QttFOh94d2yi /sdxKbaK/ rBGAddhs1c8xcNtpz87mb9hTqc5v53YAVjskG0gpHco9i7xsJ5U1nZ0nI03Tlj5jAFG8C6jNn0KjZkgk tBoojczwJ7Phwi7YTkQej7Obbv35BQFtkvtZNUBq4aXP75EJ6u6vxh +g8lnJ61U5enPLyMFPoEkgZZ9ZHTepxBhWSprjMmjIO0Cw2/ pltW1Zmol8dvs1ONsH4jdEeeY5q6BdgvSCe2pGv2mMpf0/2tIlCuczqgXZCPznmM0eBuOz6aa5eD+ F27a0lb+BzUksYeKzK4a+ DSdhy7Rf65bcl1cTImqxUFm0P8NW46gAJuEyVMYejJUtF3JLOJ42iM6YZv42H4JyQamd5GPMFbEKk1Dj Uy5bVQGtah5pyPktR /SgOaAjzs5i22jYWlySl/A7CE1UhcrNq8QuxktzsOlmk6K82WF6yKoTU4+Q1W2Ojc82qVOtrnYsT/ mhTyjoWGHFThoU2wSqlgBoAFMsMSF1aZx1ou/ltc+ cltolV1LtOzbkhlTVYc2Ocz6jqTqzojOZDcqmdki/ xvOltT4G95f1be7J5G1WxrPMYJfl0cm1rV8LmXWgbl+ jbIoW0c4IjPr4H0oMVFPlrwihKFGGbetb88dwwWmvOwqI7NimdNlBdtbOAMSJTsrvztvZXwEgA78UHtR 5wDhVKxcbt +6B23mQoc2s5YpuPQANdSm97mHl+bRKu1JC+4L9I2Bt2wHQ7zXWXvJWq+ BIlBkgqSsAwabsiUeM0SEQ2dnWRjlqwsFmhqvL31kiVvLIPRc2knGbBEsIOYgMMXHndkxT6mgTwxju6N ogZEv5B6Q0vK0UtUEgaOC4MCFLP6u0IpBR +J4pa1dGAYn90lNELT3xQ9i3ezYyEyKUZGjNtCBYu23I+WzvZb7KhsCNMBStTi64dHR1Z3cj0FPsXXy/ jBhqYFI8qQirX0gwibyQrs31gzSDXKMxNCph0h+BIBQAaAdzlWedHXDTSA4To3WCsum2Vo/ zTNxloNU0mCkxKhzHj77gtPF6Ndj3MjGZU6vsp7RpNmMCd0nXMeV5lT9/ bNGHnOEXJxlR2xgh5RYAa5AuNSZTx7hq0j9esRToNGLlNezOxbfOfzl4MdZYwJ4k3RGUiuKlobNq2dIl w71A2ui + fi8ocabMPYDNjY5Mpcv268c7hU8kKBvii6yOFU2uZWi5WUPqVemwuuPaZHompC8GRmyV4FDYiRrYJUX1 lJ + OZ9mVMNkMTqgxWXJQmWHuFbIklHG9QrKdezHzAUVLYhj6HsCTer6aoPN9zuDHeXovPKDlFTFmlPqiyVD O03gpMk9WG7PkjYFIWzFfMAauq84x4py2u1jlb5Copf4N2pVeamL678bn4Y9sxGTAL6V3V5tKAPrOWVU Oafpnso3dhaaHMSadM7aIwW3vOjnctQpELrFUch / b8QYeZxHGgaOFPMsJ7Ql8APZSggiiv48J5yvDB4tMtCPpwWivZdNXioYfg1F7OhPGU8LrELcMdZaZUpv kRoz7annZ6MeIMhKnnPXWHTOCb7 +CxDRmQm4Rfw9lbkewWsi6Bl4S66wR9iX49Hlgq5q4hZHezka2mdrtABaM76dZnPY+ SIZZfkn0HToKr4aM7bboarZ3asTwf75O8N3JhNBfml8sl91xWgfWfl0BCTDODBTX9QQ9u3eVXTdXcv6k 0fxrptncpBqV + idf3HA8nPArhNwbVgOvvQvpYMM4nbommEsRi4sufl3oGHKJRFGzWXYWehLCPwGCrMm8Yz6WPhvbvWh7q IMNToupXlJVZVWlyXTUNVZLmV + Vc22zvD5jImfnvEu5RecfA5c6vCh5110u7E6XdOShqn0NIY2plFePWGjGuSOFc94xBVSykbkfRs3tjGG TvvLtGeZorMtE ++VhhSeoDjcr5y7AYylV42kmaIpgqswnD3rTj1nNCImQMrLBFN9s9NvHVgzQ/ aOBoPSDLxx7FR70kySyHEmdnRV9TzUWepZB1s2AUMa9racceGe8Kt1qHH9HvFo2UwUozpp8r959Y3mGF mTi / gdxAaGZ9837pp3Yr3YkvF8jzcguMBarw9lpiKJqN9RnPQVZWRLWznQpz4ovHeSTJcDUELtCETQNkeQry M8BAfxgJf9zIGkj8eCudYooLJQkgeyp5m + UHLw5us9YkW4EKqOnIIBnJHIz4LGN1F5B7rpBdL4nojbbjJZ5wNmfz8pRzuEqudsskxY8F9xhSIO0707 jysmD8Zuh +f1z2nH2zHOD02mBwzqK4equLowwKTNTDFrBu/VcBTiDKteIb89K05y1kiHDe3rOs29rF+ pF90RzIZgrq46rAFKXXeLaRwkgoUt4DTZLWoeo/OyOiy7iZonFBJA+ MFed279mCagKWiWrSVPxxBSivKhGUiwp4Njvew44kruVzOhZwbdRImnD6bms1QvRbD5fDcVrEB/ NJldVcurkbnshe0im/y+/b5Xdi6HURtDVkb77g9L+Kk7229trhozN97m66TIztz29JUv+ mtaVRVQ0dB1NprrQGJFfjVWWU8vbFxthqLN1nunvQyrIQJymUmfiBKuMjkdTsMZw84nJRwCijYC51jKB oqSJw3D7fyecjjPUJw2KsHlAba8n4H7z5B +uvYk1sDdadsIXgZZZE1l8XJsuTuGpciloPPzELbIr0Pokp8ywij/ SM6S3kfJO7wrUymmkqP80rtotrOwHnk1wJVJWACWf1ESk3Q9aourevVCJSzKRkulsPGsTVNMgdLE7lzK bduL03vM0TapGKVHOCXBRMRiDhmiu1XmqCfIl0sTVutGnAGPCeosZnJgOUt + 1XaX1sQWaUhxY3iNUa1SINqFZAMDWxtMMkkUvlMMXbDyZ9dhruEJhXn265aCgbb6msbj69gd87C6cgw9 a7KlTJ1eePhg0E8 + j0Hq3hoPN6BO8fyVbzKOComaPGyooI1xLwFPPkC2rBidvvLfCF4MpWIDnHFOXWZRzYhm13dituJGe41B Fwxju5k2rdLNfZ6fW4WYxMPuopmyF2KJOyWvTo8queEABx3TETdgU94NWYdwFQnPQrXexuvOlkmMk99c HABAn9oIp6Pa8jd2W03P0CAt6Pfx5sv8HRZ94Mp /V841qXoHlRyj2C6r4Wnh084lloA6ULwpGeKoPxgJIs4o9lYowMbD0yJbqSh0f28ejtT9e3w+ t4NXL8ocqUHISwYR7ZkejXUPwXphrxhAbRHTupoLjHNap+ 1phC6RxPgWDQ93swFJN49x88S3GPN1UjUuCZu7pcT8aGi+ J4Jpp8Qccym6fWDusVWh6tMCUQ4avZO7VdSmSTcgEKjh+HasQ/cKsAHq6nyCvacX9tm69crhm+ 8pYf2TB41SigQyac2fQcP6har0qnl4g9T985xkH9a0tEYLi+ llUxKn8zRlQmOIXXtfZCC0bZMRHmv7p5EU5GMeo/ FAjYnFSJnBgqGCFv3GWphWOKmGKIfNNHuZgceMGo8Fu2qyrPN1wOEiZHUz8Erkvr7unvXhjWSt04ByaT YLaspiU1TjXA6S33Ri1jubvPjnt0d9LVO9rgfjQUtWl0Hdj8sGphexoyDuS2QsKjoXGi6hicbVnYD96t 0lfy828X9u2c2ZJzbn8j41fukS4WT2LOi2L +yvZudaKR5sf3WFwEvldt9++QDxR4eTHl59U0x+mJXx75rVxF4wRL4rAMwtAk18YK4tt8l3x+ ud4q8raDTz5ngxKdSb93fIljLW4KoAaksuymOTvvA9Xh3xfnP0x1oDEowoiuLZY0Zp1kTxKdhgs/ EFx9fCT3ivQXoblvnmNrpFyivOEqd+s+WdTYdy6Dp4PMadZtzYfCw2dYfxlryGos+ cVkyPrR8ynhoOynq35hFFCGBNZHNdcS3vuzSsiP0g9kA0ZAaE96wdywYvOd+B3uWG9ioa4booszP+ 5DjT6mD9J9q08gNv9/AM+oWLa2e2EcprZT5vn3udZtHZasKRV7hBoP4wtJBnDLXEC+ AaeUvYseN6Ww62nF9gFFEMb5mm7Lzzyqq2NO6zOaodBOAYPFY0rkgQNxzaSttiQENABmHf3vEbELU+ 4lkpoPQi3E8gTf9bD1S4PXunZV381BkwbcVRbP0Df+qkRZaZNcqvBfHtnj8415dZEikUZ2UvqaeK+ 2oRNB6jh6lqQPzwPdVs8LLE5lnbpUunkwfukIop7AhzXfsPCH5055fct3yy0I7/ lbUxrv2hF9zHd56Q1ab28s0+daQZOsEj1ypAG8Gp999+cIQlguf6A4rwImsOpkVlDjffWC6Tfd/ VAlDifX6KRFcfROU6v/t46z4L+ LleX4OpVA9rZ7QhVG3YTNhM5nqZRZ0sV8sTip44x1lIcCD3uL94Bc8DxpN5atD8ayARhuhsUKBFWoU7g +MBr98s+cdXsCosCPT6bonC5TimUfMZb5j6fhKusKayW9Ay2aBml4LPizgiRrTIJMmMlgoP9ffwb2l+ Hng+Ca9NxSGzHtT4La1QU6v4G+CBy942WKWq8btP9BcFaU3mr8aGhHlmoh6J1fN+uUhjMNFzGlnw3KI+ lfSNszMVkFuKlYt5Fmi0sEerM8mCX81a4+LhHmHh5eeNKA/ nJSM6dJQyJYXrm5KnoPrOvzgrlsnzHjgmRcDga9xQ7oCphl/FvxnbQve+bdW/ 8YztkTILPlBClyWVFxFURHq7poJHIfHJjOVIVqMX1qtiOH9RyNBRTgaJTsxdxl3ZYL7ciRxZSxKhaZME q7m24 +4fifoHh+ 7dvowmv6jC966U79jURF2GyRsZw5a9vUVhRN0FGY8dXGITTrrzTq8LqiF82D4x6s6CEfaDxCLBxtTjgA WBCztCisqJJGJCivFNBGSR +393jzMq1BvNq1aiZRmn5mnbv2kaH45svJH+ xYas6uVmu8h6q00sv0eSOIV1zviw3Q4fXvTJ5mx6rtwRgk2DEAGqpXEagTPxsBnf6y0gyN3TtCfUGBUM FH3nNpIYUby5peUNJVrkGq5OVAecdCSUoHKmFM20frFoxD9e5j6k8LRWktLmyUC373s7kKgJ3nGswRG5 ut J1G/0+4QeeXP0Dw7ltumpNgI7GO0db9WJcs4y7AlIR9v8t4+ uC4lQEnATwNHLNER3doztJ6HAkSRcNpboI2zyd8wr3nzysIVLsvLleh1Ea+7j+ 3INwQ7dKOHVRnDOyrws31HQGkd95DYqDc11MXIBp9i23n9v2kbfZxbRuOxG0YqIhss3rtXBOaS5Ym90j 002eUejS8m4GIJBZ /ed2S1Ef35d9Sl4qd+I5Z5IUbFih/ kjfdqvUYlngD6Qahk1mr9w33YCHhb5oygt5gIquX8h9s2gia6ubbY9c8R28b9n0o4cu03Kns94vaZvpI NS9T4jgy8u +M1kXs9uGIO3RE26941ZxfX/Phlr75utcF6VlCE7aLlJbkkaqGY5w+fePPHPm+ KkTpEPGaWBa4wr6wTX1OfjKcfkoe2ezfvdY9kD1fsaXzUPzc5Mq4f8swDW8Cw2SiC+ 550d6OxX77ccx21a3O1OlAja11L/Mui66ztw9W977T5c+FPFWh+Ep/Cvhy/8G+ K2KQE0mnoZ62DxlxV2D2a1C2m44pRGnSl9DO2ac9G5KGMVJEJ54mvgSgti+ flaiqm3HYpEq6fLaWyhKaYhrBhWx7Em0JhA4FKFqjgtFe7R3e3vKmKSo2foBkVoHhX2ieL2x+ b2YiEimxnYQhSygvyN29xpHHFjuxqncKxH4v/ItotQubmVn+977Qg7z4fpd4kPDfsvK+Gfj78S/Ci/ Ea26Y9kXY7g+HnvfxnkGbP7qkfpXYfNHEd+PdL+J0k/hbxXeSXOq+ N7S2hnurVwakKfma7Aofw0nf78c1jp4QYuR0Ch4AG6DdJ0stSkL8l/h1zNfuZ2z+ BAgw2qjHxNi535dzTrI7W0cmtIaJjZr0NrP8raS8dcrzqznm9/r+lX/ ag3L5E39arBooiFyvtF2Br0K6LFPd1wjoUD7uwyK2WAW5b99CcOu5cgeu809xXa+/Hxb+DHwD+ P29M8hZWQO1DCcJ+E9b8N/s1nN6XaaEoMyGOsZpbcy/ aVNosrguVwkg9x8QVio3w5VWSuPmSDFacA8KnyiY3Xn3Zs4fkM57qLGe6jxDX0qdJqw1CPyqlvYHqQaT PGlWdVMpXpITioXucLGOqm5gAuivxozr / kE5Azxk5g7GtCbWPyX6jsGcSWpBipnOA36q3Ewvko2fhXyW9wWcMyNr79bDMAcOaGbG1xw9irZbFs1lY m02Ab5JVKaEq8U3 /df7SQZ7L+EuH2p480F2DuY0K42D0yhm4kdfB3+Y6HapeHW0ITIc/D3w/64v3FrFw8Q94fEjtBoU/ gq18XT+GdT8N+ OuTZvU8I6l8czbY4F0xoKifzKKQWojIKCYAh0i8PLwFpcgm7pyAXYDsKrr1Taf75tfvNTrSOFiRuVtll I5YtN9Az /E/jk+JjN1i1ZMHJx0sczEAYWHWT6GbQfrqWFHJxhbUdrqdSDKiIaSQaAHh4KV06gU+ 8gA6vxsWM1999J70NwucMlrF5oJz+vg2DuG3JAqrcDcd6m+7I0xn6ssf9Updu9D/To0v9Y0J+ BveddUFhvjtNfA3G20m7j5dqbLx8gQZpw1gmDhcmuxe7r7ZaIc3cJ7oreb6DOs5YtU1nr2qLQBzeJJiS TpvJjSmfaRbus6wmL /GIvaMg3um3rVk8Upvh47OXVdZl4bwWSKrxS6CcWAxkoEGsNVnG2KsCmmzxUDXJMq4WAlp/ WO5kT0iOwW5Q6DIYb5p5X+I/D/i228F+D/JHkyGJe8pOyG3PUI4iLeK8xU7uA8k3CM4I1kyuwAqZg/ l431pVV1gcmc4ex/GkNOE1f/ wQzwJlFKqPQogmwQ4Q1VKVhBhBIcJ8Mv9BliUYQBRN6pxn5aLu9mLQdcdT4Ly9/ rEsfSzBKkT7CUFP81vWGI8w9+XZvs1SNDtWSd1Q+ fzpVRMJvyEysVxZlS21RhDFfm1uznDbpWKuzzbQec/K3rc/K34fV1M+E/gbd+ WMI6Nts2b9F61atY7D072ijL08MVmnPhee8clqam0m5L/HMxuw3KafywL/KGv1Iy9LkR8yq18p4ij/ 3WmigqkTE5CpKlpK09UbE6s4T0P6ysy8/wDCel/GfhCszcf2svdno3lae0n5S7Vq15q/ s3o0JprkAu7GaBIzFNBExbZ9Hv02OjEpg45vcRZ3/fYT2ylAf2UwSi11gwozpe4acbX+E/C3iW/ c8bt0rMk5cBE44p9d0I3rB0jNuVrHAjRY+bphMwcBAJjFWz8YbCHCeSIxlBWYchcq6zneBt7f+ E3G4sdBh6v+ YMK65zYhaVkxU2L7tTJF20xixu4obevM8op5i8d91X34kdK6WsxrUhOesRikugiNYSGaf0JxZHxsjETr FUEIBtiwm8jzBPSdySdAhxPdLbsxB /Ot0m6M7I4EGYZYLp0ipiCxYt26VZK7+Rr2VRFYTpBfD9h/AEJ4k+F2k+BfCkXxIbT/ABHpuga/ sdJD6pfAa3lg2N3NmGVgDnV/gyLw8+jih2OzwvT/Urf3n5rl4R7SkByrWZ2ZUVbG3MmGOdy1C/ GQ96IhxF/GbwdZeE+Q0XdAxEHXwE7i0C/VYg0ooJTXo99otV8u6Y56UM9or8y5iB/ 2BpeAxKGxvjxwWyjmF1y4T4Ak/mJPJc45Hi02Uc2JsHxSgWSYP+n614w+ dcgo4RemN0GBXXvsoO9Oo9kXC/9YfsK4MuoxuZszR9F+DVrb7mmSgl9qMpiyk4n3F6Q9V1kdG5gS0K/ sV7CfNb5002HrhHab4a/ KJMiw29h7Ba93t2C8lnZqDjop2YR7u3cvgEChlsd20ZnPilQL4V9vi8L8fzqV3h7xO0zvNNYKkDJRAoS 6PTNCgFfx5QbjfQqSLqusp8bsp4DFKZNrIORlFmbWuzt59rx3VrmwfC7ZbCrQYEU1gMcNgt2Tsp17 /kslvb+0rfeOsURluzuriQPGVKyxJH9dayhHOb6rP80fUV4iAYuDGVkCyeqGDPeyLsmUKzEw0+ e5t8M4yi7uQcGxwC5RNdKF5Vv9bbpRSu6s8PMbFAnIL6iO/ w9gY3sqhBxHZu6u8s4KFQaWh39pWcw4yTM3tn4eZl3EEdMchQvykZKCpaeikMuOpwLNXbilWhWR9TyYX 3W8CFBUEUB8BDRGRFBKvUOLK5AGNSbfsWH8uy2I4kl7457maj8KGRKzZFy3Wj5BJ1FnO +/4kcpYmJidxEYQN/ Qen3BHI0KRb0TUpZyP1OWtrKeTcE1LQMrwrFzCxo5vcdQKqBBOchAd5QbLgzBnEbLKMRC7LfIGGuKzRs ozggXburbU0HJuRSFLTzMzUE95CVCa /EdtVDmtyjnK40vDxb6w+hjKMm+t27+vV7/8Y2tQxXqJuxWlPtWL3GxB/dPIU/ E2xZL6uECov2eFBMruwzELfYiSFMOyBTo76Eht3X0e+ UcrXfO0zNgEnxZwx0vEBW7YV97y8dfHsjoQaykuucT+TreFbtHJIrwDIPLJRnIVHE10h/ adlvx2EUeLawFRq40jblPe7cdRVBOKqts95baslO7J1HwTux7SecYm0EUq12IAKWRisiSeOhKxQilEJ+ QNEYWUlgjvsRCgYd3MPxTmx69vEKwfvDPxSIC+xTIflwNgz+ 6GLTHtnIRQ2q9cVSHfTc6jT0Hq8qLbWuFDzrxpJjN3VNPNYUxOSuJQSLf+ fnGbNC6Tp45n0nyzahtyumSBvHRnj8hDnit5gPqDppqbziYreS/ l00UBxjmN25AxliQ2vAPgt053foQJH9eyx1gxxgIesUPR1mRS7y5EXvkuCeFaCNvhyn0ea8Lw/hv+ 7rOt0k94SX/eUQA0lrM0nv/5jywO9j+QoWRh137YpDc/Rnhmbnj3k4mfEqELr8+ DeYAeWUOi42BiYczJ5o22lFv6T8FTnMhdRH4d1qTNN9AxgG9Si9ApAgyIoL/k5p/7Rvjfw+ vzrA99li1xlRtqQ7agnER7dkMCQ0yh0nrlmS8IuVg0d0vpVAT1NkGViasc+0N42+JPm/ 1FGSWV4lA9YaCnwHnOqgt8ycoAOdWpOPOcc7pncqol388sCnuccHb8jU7IjFn4tg7ybsY18hEx3YgitV Cp28PokXymLGgBuDH5Wu3t1s /8z0euLtEGt4WyHDb7cs3jnDXQ7oGcAcddCS0tOXqAeV143R+ yjiZ71pMMCODa1M4WmVgaxpElNfFmagjNqko42l4YSu5Zw3RoJti/z9fW9MdpRccrO7zUf7o9pN/ aKvPDn/INtgxDts7A3I43eKR1dmaAKKRxsbIvatvnkMxCjFpYLdgfhbASIpDauZKUgdNp/Ofs6/ Uvu7xhQ9bu4cnlF9Ra1ybHrfxsCjnVJQ03ut7KSUG6XdUljibCM1c7rGSSKKpYgbkDBPdd9X7TSejlNx S / 2WyFeT3QVEQKhBrS8sBHyjDgWuLZ0CMiIIKKVQLddCU6dYKPLHl8hDspcZyogugfxiAvoF1CCs7nH8pJ gzn73s49xHCiuu4OKV89aXaSxGn74Xb5b0ID7vs0nq3TttllDY13ju0W +uforn6LNbao0g9zdahQQUUyNGg1st8NUgkSXHHtOVvYVXGUU0fP+Vd+ HHfGltzU02ZXZ3RnuWY56Otn82t7cTPKNyoJO3oFbhvXfByzGU8mUMKwYrB+k+ r9KwRAnd762sa2P3DvI0yrawO1jwbfmKkim6BM7EV9utYqAD50HJj8wPktYNJo/ jN66B7LQQIxPvZ2dTudG4ODkRDz4M9u9D00Yyy1iyb01popx6/ d2YC85FlAHZvfZ6dz392l6rlkz9bbT5a8981jKUmoH9++oq3Ggpcc4W4aJcNdbtlQwpVdWPSAJTgwkaJ +0EN6VbC4y7Iynakur4er7cy4xB/L5LyDVgKoiwJOnfk/ KMXGiHpeoBfye0TgLX2UqLb1SebIebYVvy1SnYzIcsn31tkyZHis1EnaIvNiGo0VzX20fJgomvGPUmBZ PGRKeNkSXJtP0BLF47PUcrT7qViHRTwF7EgHOGfGIc1URXdNMZbcvxb5W8pH8dPOslGhHOxzJRhvyf5r PdVrmL5bc0pHWwh50xkCcRonSkwlG4UuMRk0fRcb85g1h /unntz9MwLain4p+3UgrGckKFTVloJRhDxi57SUwTtKUACBBqUaLmDh4mtfXk+69nufhVrGg/ NQfj1WEdeuNu5R4xQhIiR1kgldgrXQd/4X+kpCVglzBiBPr1B706vRnBvQZMgb9LWeha3vWp2+ qCZ6r4tF976C/aPwXNtR0VjVTF2tR48IlTdaMf0BaZA4e0s31TjC9g2fRjqDISdWGhFQ5fchruS+ vU1DeuXMCLRClRwk7eGk/Q07zu3Vke+S4lurkaY1V+MWt+M/ibf/AAl+A+m+C/ IJnV7b6tdXwm5gt2cxNHVfX+MPgfxRr/ifXHHiXXfGj+WqtM7j0O4vZCqL4awBpA/ xJB2O4hXDX8WSheuwf5wzn0JQQTpQ26xGHfLjyL8b+LxSURopq4tuDRh+ HeDCaIGtznpcZbVw8qCWtDFj8n4mDzLe0/YoLpCyGKWIyMbqAdmQJ7DmL6sS/ bXF7T9tvDU6Uhi07gnE0/Zc8LfE/hCx9Tz19lBrjXO4J5Cbb1kcl+ OX0QpNJdgKv113tnwb9oreE52lk6pzqsABzG2HCVl7CCJ/ O9xMOEjUKgl4jK7E6RtSds1Uft2p9C8u8f6GrRrXse+QuIqncKo5Osa8Y+0+ VKCFmF0qJkQak1wxg5sTu54inYMuV7YGa/SV537nsIDiNNt/4a+EI0/ 9IA8d3qdhxd5edn5ef5aIP9wtn62fgTnbeQ9r8pRoHgnQxV4tkkkqm9Rhha7x6JfxkwUstvjag4u5QBj 10d1H8y /Yf+FPwE+Fw3oDQ6Mq4ir8ENlX5MKe6ag60OWH+JPm7KuJeV+VuiVMt526tjPAL0dfuwm4u7BfqmGi+ 98K+NvBbz6ScoOzsx7u1tvIl+G/tEYlfd9YdOtg/MY+hdydwWgHSLasIhjj8uyjnKPmBZiC5bAzj2/ VcqGCiZiydn6S4WdL8WRcgSJQghZnOtlCSzQlHH3SvgPxpQbHPFFBTjISkaAB2wxgce8mD0cSwHbbNrD bCxRzux4O /ixd/XdQKOekSYwKTjj1J4AtC5lpE9sjLBUigyFth0+r6BLq/ ex86brxnOqcnZ0thnUsY25qk6afJ9DaM9zo0vYH9m2frg9gAj/7sz7NwFk7C/4ZLMo9o+JI2CaBOv38T +J/I7ki8mvJv/tn0U0cFmIu4cDvZ/DOt+HfF2o+GYTycF2qVuG+2axqP/ KIj0kc6KzWK0x2htY8FoAycwusv20w+2P4b+JPw5+Xu97Gnbz0ASHdq1AAjrmG7UT64vUcg4+ TcvpLgFEdwjZ2CKH8gx/IabDfXt2o+Wb36O9PNV7hxsmqvrc+WycLfLbbd6vwlpm4kLw9+ RacoTo4tyuQsYnnfVbYglpA4B7nAqw8GByew0Rs068Q9s1dcU5vYF8OFFN8f+ VbSJkRnFgopQ4czQoxn8B7P8P8yjHaCYcv2HUzja0SkVTeUjBRlHuvlLqDWgMwTa5cOagejGFa1DnU9e m0gWO0tKv +6+n3Y4sPmYCBLR5SOLaERgJNfZKimCKcDulgZaaJNfck1ZC+vAcpFzK09S2FAaapOKjOVUbeoJ/ e8ypNj2qejsusdcFjQ0iIcmGi5PHaCinuRGTo70rVObq67PF95+ RE1YjRPo9Zyg0l1aV0mfbt5tJtCraZ9osKCv6dGJkA4mhJF1Ec0H89EYUiUT9yjDcXnlEDvTHvTTiuwS Q +rPFVVOCVdg31MZP1hK4QvZREjZ3L9fNsi702Pv6zYrBVKuGp1wSokt/aXg/xFphtPE+q5cvSLL37+ QRp4fHSifDeojUyabbe+8fYnYUeqQwWsCbmfGkkKSB2V871kxLTV6zjwVUWXSB8kWA5R/ UnWpEVuYoL1kDvI1j6EUNDwWquo4hrmpZyqxKQEzTSh6/ RUBw5HKKhXIxAXaBn4MpZrMo8howGtYqeAPfrCILL/liTzWyAsjOd/vB8wxcNBAtdzR0sSeydaG1Sur+ F3M9Xf0xDT4Y9v5fRhkejDtIGvUDo9i0jJPiEkcW8ekHZKBNN6HakLzUYVUNbT7fQA7WDFNesSgv0B89 AhaMmZUhpwyx79AN7dXpFPHIBaUgxa6r6 /I/ IgTl2U4U9qCEuJejmUe24QszKX3hY80caRCv0zvrb7myCyB1j4AvmBoOPDSezDnHdpdAbch6KITYJarN +3JmjoYeMg3tqwWqpIudGW8sTDndQaNwJ3AxyIfuhdMfIKWXiy+ nkI92dCSCVzyeG8NbmZY2kIwlB2Uv1EZNx1xhced6eKeuBaMqaLIcfzns/ 2HBv7Dw4uAnlVrQEnZZ5emSb473Y6lr8+J9m557nR2RTGhjlreDoBwysiavxcx33/ tHb3V2qwXpA47I5WTPm3fHxYl1na3IUxDwGF6gtqh+ mrzk5DQ9KEIT4J6qOwnMrlTdNoYhayuxCYNvcpdr6wCMYJZzaz4zVFtOojXYNvrq8xDlQlTyePPV9vhw yOSq4F5amsECqkyfmeKTG6HDNOuPixVB0VmzjHtl +6fjDuRlWY6qock/xmw433Nd076UGrml69B8U53o7d6ezmF5spfT3Y7gaUy7FGvIPb4JibNZrVfwrc6/ 2hRiEMJs94fATsewh44cC25pb2ZyMlV3iWH0lAvxVAVmhAKet0xMLXTcicZGEeTyzhaaACwq0RHVD48a tR7hTsJcLyLOC9uhHUP6drJKsSAuX9mpLJotUu7rDmN1FeQnIfm7TYs4ylKMmqsCH4aDfh81a ++ ogp2YP7TNZgEQZww3108RsvlgbcrOjlqC1n0D0ymH9A1w6o9mpw1ePXUlzMpdYXV9fikMA3Gl8vbNnuT utskgQu97f1Z67kpg8icAa2Wo8bz4TCh6KWHTL3yCzS +CybGGxiYEiZgIb44FlZCndPy3cEzwBoSsK92MSMlSxtQHgLUXGBxmuSaBpsWBsDHHZ6Y+ GGJLZnzHGSFyR1oLnTB3jYJh6y+0R5OMk+ Y1yeFhMBu0PLApFu67rkTEj3s2b0o8yheb8zmXif9d3fN2jvt80oM9sf3q42yD5l5cvvno92SoJ6msQ5 rRXRCq +i1nCDriraE8zXioCzuXYsWRbYczDMUZo93fvIXRP8PeTKFtxsq8qQkO6/ YzzzV2hRBsSsxDjgbLacvcloaGJSWF2bCKlIjPHBVMZ0hauoIl7DLHicZx1QtG9qa9zLrD6M80JWR4ru PuKDppxizPUMo7jnBtcs9sbfDdACGaC4nIMeYHQvTOhZWXz2wxu770fk1o1h4TyYkDPpRpSXdm6L9r23 6pr7HzkdJuLK45 +CSW35MYUK3f51J/HGbVFDOc6BVWqV/ fSDnwF4J1ozXsM5lmzdsHM5PNstwo5bQkhNZUARB5VWITTBmRXVE3k+ 3MTFrEknzuXaTUgLtDPkQcLxWDvradVrBAlJzeY5ECSWidEcmFehPf2Uq2jRRh6tFicDyt0yGB2vGtTA ydQZgHESZfDbrudI7ez2LBe6NwaMYdQuQucgTl586teY5ql /a1SLtXJBgzOwJgLHvoHum8GAMvcbVYhr7CwTjj3nP41ph4U6UNLYRTsaPmJxpaunwaCcyqDIZ+ pD9YIH1pXiDk5Gy8i+bhGsuznqs94X8kcy4D9AiFS7hBVb/0YKojXIVuXBv7/Zkubz0Xei/ J17wS1pcFES2ssJRylAbJT5ceaIcsJy0HoMA92cUmrNijJ5G69GKDnAgcUqLfcoGtUhSfxVoe2aprZjb W3aYaMmtpiVi6b0grhluwhqUeTT83Ral0yeej8v3nr +xoXABjGsj48PdMroWShkjUtepwiWDaz7ja6Cx/ YJoNA93tkGTcdrLu6bjE9TqUyFdfVfLrufD3uMz8IV+ RqbUnUP99fHJsxgpxS8YEIOYZY7Dhi3xVIRYX5nRuyyUfkBAVQS5IKWtq4eCUHtHP5koMYEwJmAECs30 7FueSQWgTWLtJoXf9dhcrsVyCdGYojAponu9lraYq23T3 /6MXneDLrAU2mMZiJghJTB1uGLHmOO5zdAGclScydaSa9VCJd0SzPZ9Kqk+yD6sd2yy+ jcZATzbrnmUjzs6M3VTfBjamsxLa7930mFNilv1Vc+ DW18e2jp0EpKbyHZ10tJcA2vf9CV3Uf9pVRLacdLrwovmtUiyPsBjhSe6+x0XwdNMJErgE4BjwRhu/ s3mNzs9ORItvrOUiW8EnJ7WZbcrgimFuZFGRCqIk/ ZKaG7J0WaW9kxS5xiqRPmVIdwL1mCBvMgFmOoJUZN0/ NbKQeekzm00SvG1326LbFo1V8x7mMA4MxlM3Sf+y/JHkZhwqQ/ pMdRYTY0EETQ4wmLArMo5UXjhiNQHUikmeGD1p5fvzfjSogfzQo3qFSjGtXfOmMDX7SpAHtQmUuB7Ftl 61hiW5cf /WomRFBsoJ3aBCtUpCmAR74bKUZgUAG4IKzUZjnZHvCrwPvrSSTO1Zl68JPgH2ImsX8J+ NEE8FgZb5impd47jFGmxO2s6UpxQr7PIeqqim4bheQLfutCOUkw61fEQQheRpbs5dfb0xj8poNjU551Y BCH8wqApy3dHj1j /mI96rKSTNu0ahApL+NfhfxxcX/ DGs6NqJzvtLgMe2w3j3wwQpVGyXYeFrUP38KV5mxoslLuiJqIosKfvqn67cgnIgdhBhtK4ZmLwfCD7Dw D3GM0gn68Gqd1zg1E5x6Bz2GTNCSwmnFRJ /p5AUh0TEaKt10c6p842Xta6fGcsa+h4D8OnmDksL5hRp9rly8bPPigXU4iKtAwzpcoGw7CiuVJV0i4x +JpHQc4yrTB7uzpN7Cjde3l6l+ 4IWacFXrHsVIB63OM05eJmcAYJPsvzkVcZ6Ov7bIiC41cAWp30cV4Ut9I7IjsMf2hehzSd2Zmro1FE+ tCW26lk8ao6ZFaT6F+Wt0RlefEzShVr5jZwc9Y1160SIYkQNh1g+ 1nQAHSN8kRFkyQX3Net4pDIA5m3lgHuKeLHESOTRQR8lj4DwsnhdCb4Wr5tr5gfjh0qRqDv4YllDgL97 zvEVsjGPzunDZ03O0gnuJZHfD9m8S0kwIQ1Am /tYP6fFqgthyMoZHuDyJUKAQFRRGvCBr4p9gxNLMyE+E9r1JqZ3eiH+ A3V72Nf9LJzXBUo5GMpf9VlRHRKLkIAAVXS6wAmV+J4tNkXTLA2l9sN1M+B6duhK1UqxlBlekQHhp/ gd4be6DOu8m2OaI3fSdm329ZwabKhCAAV0ZFF1gd+TiSg28u2VCLdEdu6a+ ATOaVGLuzE2XQL7IkaYSN8kf2J9piKwL3rA8w3UqsQYIqMYi9equKAaBG8g0Kw7/UfJpmh0Z1e9FE+ ts9hmpj19mvfjjhIue+IxQx8co3fnJX8lkN9/M7rETbXojpTvu33eY5fxMh/ bpyuE72iMu6pQMBr21wWO8v3wCxWkfJXPZ/qUrGCvAZYb49iRuhaqsJy5r9siDylrEfiamVlpur6fi+ 384p8oLVnudeIVZQEeeVBTiK1aR5jlJ52TY/wB+ vKEqQ5Z5Rj6Dx5x7Z9Naz67z7omSJimuhprsx2myYi9e4WHfLu6QQgoUZHHP+DM0dyX8gs6+8L+Lr9NE /t+DKE1PZuQ1yTcXwV0lShdwlMEUHt7dmnknfhRMJrHVuxUqxD9FDFX6iYbHt5XcQLkk/ NgzY4hgn3fQIIJnVeTexu2XIW8YLSesszaVcSkGu984wrhDiR3+ CUFTuxbVOtM2tzgofspXgbRdcaZIpg3SIiYxeboStyCzvAy0exyG0k7iJVf+SEWSJApIJDC5fUxun/ jUgwe2t+Ne531iQiO3GB/cmvOcfan8Iy3x6GmtCQcC8fsvSopSQiMAUSBcReoV8lTmKgj+ x2o4rYgSWGuqNguBtxowBpY186Aid0vjzyIjirpqXMN8rm9G1YBlgs1gwQQLvbTveAY3c0VWMPrUGcuZ EdwKF3IoxR33Nay8z +1MZEY0pz0s1xfv4nUPp4Gs9rfBTJUec2DErUkRTxCdOu54+yzl76ny0/ QgnzbiaSeVJ0fg1RJMPg0fXjwhecrfBzCaG6f7v2KebgoB0IUWdW6dqurQDnyPHzMKsuFqNEQaTzflzf V1W2h4blH70EWwpzUsRoWnU2mSWprr /Msq0VQeZXLosbxJ8AzV0lqtolG+k2K5vuA9svsUc6vr6dNaZ7s577xhi01syFZEQtKPz8/ lcUb4m5KwNulqKjDuZ2MY5Odywg/ arXmfrE6Cru7r2mLCBTF51jAUsNI9KIK1woji7nD3dbdqukS2W36JOnl2OdpP+ reXUuBO7ee70rPHIr0rQjhBTDjgeGETD+vVHTI2ZlVCzrBZ6gFby5zarIZDmwOsb+ D4s2gyfmzTuu5Vfv9q2CXqVqdjV6gosz78osjwG5946Q62+HzmZkiTZa9uSvzSa6c1U0/fy51k93+ 1h2Iqn94TGJOBsNWnsbGjpRQ1OSBTz2xN4OGcB5eniFDleh6/ABfb+ QlxtmqtgM1WqTb0V1Q3iN63qTwSZ2+20Ldi2bAB5mosTQoBYqW1ZsMpbnqWa6rDw/1/p/ mm0ZgmMfzvsk4qjl5hyfN88shny4vKk0S9rlKEwbKM3R9hqG8A1EN6vYersnCkPy1uNiQkdM1I7x7e3b stLN +kbANHHhuwwZCH56mCvfkE/fMWfVaj9lMsUgDM/U0pVuvXBYdcg3vOQmnZc0beHQ587mnm+ Itai9MyckfVB73+3kRP0Q3kLzAjuSZhCdZqiq1Zut1VDFW2/x2MhSemj9kqfEe1uTzP7T8TA1o/E+ cdfaZxBA8L4TmIJqMDkoaHhieHWwG4jrCW2nITKnHtdt58epcGsk57VWVxuiWucuscBYN935HVu3plWu bIX3mTwINQQL4fycgsaQ9CxvyIbkMD /XaUShr0U3TtN9EM9dfoSoJ3DUzmKPRA72UMCFmHl5zkEG7Ka7aFmSig06l+ VlsGoD4Zx7E5pg90UL5soFudF+fgphPXLOujhsGAESYoPJwbXoQKhlCrrueYxOyyIbujqxBrROSyd5j+ aa9Eyzt4RgqWmL0PLtIip95gcaJLaLxnVexlP4paRAJ7W9P+ QlQyX4xrAR225Opp2gKI0STDj8kpiqxQ0xyHrRWjQ1DzvnnbZGHbM6pSsX7h9cxf/ jhv4n39e3LNNEd5G8pAL93g0f0GwHsgu3OD0ufgOrV9SKgvlGBEd8W+ 9kyTZKK8cZbvORROBHL3ndhk7J6MWbvhP0S6LW3pOjyAgyMPQLR8mfs4BNokNxyq4XVOdUm0LhT0OPPb EQx4vp3 +QDH2FyM8VwhWm3pQ7T4PXeFci7kjQnsSWeauK82vbDrAhZ9nTmkW7+ DCnZgXZIZ6Rw5leuIH5hyF4utk5Z5p17Qgdf9xqpdv6uBvMBj8MyEcov5zybBVHKXzgGhAqXVUEhpRfr zvst5LKP7Od2F5P3txa +YmRHdo6FxtLn5kh0myfMCiDzpEbZ0tNkQm2878StQmlSJhM1GCyJ6udJwlB/ Pud1vkdTZqHzCRfp25XUBvgllrURzntaYPNCL6jvNCHIlJPRKZPhXj3izWSb54nXhyt55X4s6S9z1e2A RpPh + 1rrsNBA7U2wSlxe0LbvMaMasfgBROQolbP3hep0W3tg9dWWFZ4Rl9qhujRq9Y3TMwvFqMImhwqF4Mjsv eC1gx3eU3FeXMu584L62GG4IUKx7iCNSoiEOiVCDZWGvPp5MvbnyK4ktsmkOtIHk1qn ++wla3goBdKiHtt0vwm6ByjnTT9fU0FbjzyFEMAQ+UL+L4A+ VCS2H1i7ikjJpvldJ5ll5St9L7g7ImzKLh3NtgP6mdNuWIkvWkYURhjaTVQry0ep3qCE5eHXHeBq7C4x QyNtHy8Lk8P +lBaOuPYLNjJl6E28rcJz1f3sSPoF1er/ SEJZQ4rzY0hsL0MLDdnm3QeSmJrPytTx3r0wrh0gl8cQen4CBKz70Vhve35K2d61oo2J/ LQsE2jtDYrfoyoi2mvXLsnvixQvXoSDDRocjZ4wgJGIg6txapKnT59zWnVUumhfNzLFUjZcE7qcMARR+ FJDoGXi5AtgqxgXdhGLJfTClcSo48sdkCPrcKNub6hVxUd0dwMXIaXI0uamhr3hMNZTZiBZTrwsVuM/ ikO7i1N4rZv7tHFJnZt3bbF4yW/NmwdlQBmAUqas1tjHk5LfC4l2Zmhkrw7WjDJBAKXvTQ/ F0vMLPnrrYpSGyEl1P7PyFqXQiapal/AGidVuIhujZVC+DizyT5McVoykrQhQOk9ab4DB+ WFBooTJ7cxxPBUSpmXIgTINf3rtMhlpK21SRF3v80EADiX0zoAPQKDzLqoehOTZIcdalRnQxZ13Vldb9 ZayS /5Beo41mlKr86TUp2hhtCHh9y4Wp/ TGUwuXy37USHpF9Jl1SMRbMgPFGHPfKf43sfeIMHaNSntj8TboZ91OI0t9q9AgtTy31YZtWESAi2v3Ir uFPS9eSWNB8h5X5mUVn19VzVsI51VKrUSPCO2ltUjktHOvN1qhsAJQVtTEwsJ5cxQSNcNcqguZeJkWmi 2uo8ocRXGkVVATMkTrSpym23v9D2oe3p2FJeKTrQzh0629o2A8w8XtVVUcRMiBDuA9Vfk2GzIL4YY + WbxEZI54SRGgmVdp1clgiRcQTLwwnweQUQNsRbU8usRsXMkXFr0OIOqYwC6zioeXoFWDEP3Nb6I3B4dQ 4lsajLbHz8TTmAnBK0XaohANwmzlMVeO3tbwKyaszRLEiDrJq9FG1yDx1ehSogZm2gYMbe8hmpep9vp4 ce36MGgMr92n41wph0 /bycehxYtjBttZcfRqLjEDyzub2yCpAguLX+UAEKp+ DhmTfTzUqCXF8KcGlBNpAP4I6orcIZNmrMycGICp8sOyhKbbvIEA1ALyl6sJszBi46qMmwlwY4njLH6g lCKdLEDkIKLsP0oCNquH77Sgz2flubAR41PAdRXDD2RQgswyhWpd4hYzLWbvVJa1YUf2wBGnjIJkwk2f qu2l /71r+vrSUcFCVuH2g1dsut89j3mV7vVunb90Kc96sTbzIOygKCCoSXtYRXEi7Zkyy4xZEWCzrx8ueKpm +jGGJL9zmc5T6jIzvlpasYcHetoDSOMGNH3R7xJ5cf4hM91mHQx+ TBL7PHSucSpBwivkX2mZC20AB2UPIGM7QeAtS9rSL2fxEvHtMXAPzpumSy0RO/ TttNZlpO9u6PQ0BEiyqPSrMO77wGqb+wlT6gnPYNmQphjx07DU5p+ I1IhphBcE9EKNuPFJEke0uyddeWEF5x8lH6SNBLKt3uVKBlPAqXQYOvIDhb9Mk0bz0LWTVSjA7MYdfGD MdSh58QROPFpGaEdxwtkEZcpvWWcuBf2ahMAopvfTwKJVgPVTx9yEOSyBTrY70ypjfeLPapYDAF76i6a ApTbuCN + 7RdwzvSqU7v2kSFXD2q9oN3f7E9xdRdxkrkN5fbLYuzYyrye067q1gQlvs0ShyDbmZMpZi5Z1wiv79FZ 7dgzjFhud84RF2n6pi4Zsyk8T1ybl33hdarqnKBT21rUKVdTfWIXAXvpYsMab39OQJYZyF3KUiYFurVR ZV23SKD9 + RTR8vFtKny8UgU5I7loMCvVdd9PtdsDooQIySUenH5zxdkgJYI9IaYRQWZcTZMct1gi4WlJK3dabqb5u fnSc0yWAX0V99sx9ug4 /4e2NpqonsgqQonjMWbLIK5/ED3QIFaomoWceELRQtT84Yez+yOxdxIrIhB+ CNhhJshFQDQHayHg1BnLZj+ u2UfbK8gGjQ8PaHVGSH3gPCGydnWFDjzFZffsnqhoTMZzH7z6lrvU1hY7Ql9J26iACJd61JPUTBuCh6d nDduSGoKOSZkppPajfVby5ie5 /F8vi8uoCvsxqMl4FkT3b/oam22B8n6VYyf+DXLtDyvWkzDm50mUIKQWiUdd8L55ylQFjxWb7/ k81RCcOrIXdW4tFZWKSM/ YJnOYocaCqefVxGyrW0NbjoO3ddzVx9AfGPz704PtJJdadldBkvrIkbfW6n3qBAOxvAG1RF1cQV2UyYz G7zZkIvEjC /KqzoeZ1cc67gp0VljuF48d0/UPilehU6jdy// JCC9lpo7tMOUtM1BHp0rZ9UeWuh5cUkKtL9FrHJhhFosQqLz3e1Qzjct/ZHngkcyp/ cWciX84StNFZAJ8fKMymYbNobvTtDL4JHTCcNGE8G+ TZidIffuDRBYMoqGA8d7bOebGhKqLIH525sTbOGFbzGZ/ UYztcXme9Abo470RKuMOpUM03psALM9ueahGP+V/kCUvvS2nhmJNjqjxN677T2X4a4lcyK+ IQlfLoaMFJ79jw2HOIMPZCo4cedEOYfkWCprzhNpaKfZeRPancRA56lCnQ9rCFURHIF+ rwTs11E0FJYGPsNiDMJRhFPBpXGeUBIJ6h5Hc826lJvMRo3pf4XgEgOZiHIeFEl6Kle1lxxi9nlyU2sH dg1vda /PIMISgAEJkBOOfW4cp4sP9WIgvxK3xbOxN3VehgSVrFBVg+X0dcw5xj78l1l/ansA9AQ/ YCccWE5rH6KKcfQbunhmsdqudsFVKbd/ mzDFycQPRdAyxYZZSiY9vVoeKYYLAt6WFHm6KQfpRzUuLbbuPaPlpnRVy29l3DaZxrKfyjuydDmrDwYK UwycSpa5EFJMbYSSmHw3VfesEYBU8aM5Ah9 +z7XXB+zszi2+hZkCfmMayd6TtqQDI7vbBqQAoDZcyQpPIrBeDxauBzGi3UvMueCHk3IlW2gNmUwvdyx +/olp/sMJfzedSkbZRZG9h9nRigxPeanj8r+l7+mxGXSI/ YTCGlR6JqXAWvNCtXwY84XnFPmaN3PVqCrQT8oWbAJp7joWYVVnY8q3N6feJah/ srx5h5EDVBi60e9e7HN64cK0rwUBfT7t5YsfHlTxW9sooEs9d0ce7xslVr9IeZuDFOrRIUCUvUTd98ju eyh3mZjHcHEj5tz5vnrMeSKMkssexv9djc0oWGivkj2x0TreCsdpEWBN0QbJsOImm5SlN0V7l0fleswc hqx012cYOhoHGhWtRcQW4yhambqF37ATsvMcAbp14HitCIudemPetKa67LzXY5XKgks92H5c3hIcGoLy 9wv4BzqR NenLYHRhHfmPtgns98XKKHNEdnOiLzXG0EBWM9qLHTKsOuTwtju8qhq4BsHv1lrjWx8ee7HeoOpwIPc1 AmmsprByPt27SrhVuxL +R6xu3JZDA29EWpKU/Cb93eZGQiQnm3UDTKl6BTeLMMGmeOyyxDWaF0bc9uL6M++jbVttne+ yv94RKoy0hybj3wupdvX+ Qm7VRFfh7X34s5V227p3MXRA5Ac0TnNaUs09f5LDf6FRAI57dIju5nEmBDCfBhuhb5dKdlmleG4IbwyB B7r4njLC089 +KBsS9cZr98CDko6ZD0pkKzg9xSyRZwP7TiD/AMZ/EjR7C/ 7Zpj0AyU1Vkq1Ah3PcnnvMakEy8PN0Nuxl+ ygQy5o0Gsg0P2Wp0Nl9KxZS8Fw9zh09SprL27J89stXnr81bm0Q0wFpJtYYxIWAFvxjKXlKBmPTDFR+ IRu6SbxtOAIrd5fsKl5sIsghYtYjvq1DM9t8tRY4Mj9DLvICr0v1+W/ hU48A7ei98X9x1dAs9g6M1KufZ/ MkcL1imRDoj2o4Tpoh22Pq0iz4oEwxYbIfH9EFjNaBRNgZNYmJSyc7gwSpwUO6dWclLALFvMu/ U33bY7H3K1zz61djDjPVS+v3kjin/tobar/ qIZdc0b0gJ5LMbZXotAETrTEJGn0nLnhfx6prVhD8OijmBI9Y87DXohiXJ2zibpXRX6lcdRhqeiFDGGG ctJJDKBtdkE +/azOP6M/zG1YWOgWmz6ewT2M7cvZJYIh+I4vD2i/DHWfC+ h1z5a1oDjQn01kBUqYCqPSi4X5wqgDlq9ewuSj4CzhTiZyZqBsx99dC85l+ Xdd60K0bEEZLhP4wcNHLFNBxVn1J/5Ixjln4+ 9hrLYQsnFcCKXNpmDYyvRyUthyeAvwLksuS8ApBnUKSypMBgqKl3RDdAkdTlmrudA5qXKLwXCWl6SfaR 2kbtBTs6qqBFo9J6WhPp3k1Jahuqqz6ylnqEY13uSmb4mleniUv9aXJhUbNjvNbs9gY / vHgmvlURWzBv6UuiivXY2aLIMCCh8nJFZBbMuvbPEMDqNLmISzzWoHCo4dIzTkuUcFTKff4a7K4oKRGj ZhNSptyFQwpAuHGvpd0bsUICPW8QTVxL0JgUI4tIH +u84ao8n7US3DjMipDWM4zyqVqUJm9I/rU+Bq1/bPgU8qi6uIx0jbcvGQ3lxEid2UlALlk2X+ 4TiR1EzCB0qfWmRKARKsyismIrE7nVcaQ2Pwlk4q/EwfDaw+HRx4Q7wIiA+fxje/DPRvibdeHtXg+ I0290m7Fw7Fol4T7IxIjR4Bf9p2y9/Wcy0b7kr/jt3NcwueKzL+ a1vec2PWNEQuArNzMAVdNmvIOGFlsBVk1UbYpYCkLGWEa2bIfJinv0/8lh441c8x918+4OMdXqV3Z1m/ 6hhlOF1O+FXu7hRXBoU4ttXa6WDvFamGws0Sg+Om7cKPNK0MfDmFtj/ 4FHs1tev3zvJ2hXjpggumBAnZ56soilS/S27+RzvBwp+ bnQtwxbgyqmb4dcrAS3gN7JgtHpn9ouJRDbJ92ncGWIwo7+R6auKow+ 4acQ8EExLaJfwxuLhOxSIzWOe8autcDcPUEu78u9KYChVHjtkj6YURKBtMyVfsim1TxgrxvHLGTDJXVw p6LbTzamIF9PgiRMDjmpdrHrqG1VoiEolcGo0XpYdFCKeY7YRAkhDouRT8rBGqUG27GPpUeXpv28pfy3 6dz39D71wGfXOyNCsyqZcPs /vJvHsPpcpN8fqHWagDNm6hdrwSTzcdSEfsDjpwlRMqirLlKSenHEWiLA9bnNHcC+ kI7Egdeizioaa96b1dwL1H/aLbOXGfEn1nzvrvBGFW9yV5M5Zzjzz/1GHX5nwebQW2v1JgoBfmPXqSj/ it8WvB2Y4c5a5v/pZZ23b3gzEuzGUuddJ7jRciwdXljFKyJHBXkg/2gbzUm+GINDLYAdtdusokJx2Y+ R1eTzh5syAm/vDs9kfccw2Gpi+ZXp6hdge9VnqkKEXrHoDK4f+ edYkD3Uw2f47iXT95g1AknOD3LYhwQLBadPByRrfx4kLz3F3Fmdyqsgm0H1xltGjvqbwTUGq5KdwVzdb vXMUsDstSdz4ghG5jT6y /PF33v2wI7/oS71b9iyvg3srIf0RfcERWLBsPkT6PRpY7sYIr5vb+u9pulKtbu5v0gGLDyyZouZ97mwr /ld+2NVeE8ExL76+8uLgq8Pq8XHP1ZiKfnbh3AGNELGeHehsYNMnlrEGLF0YyWNomI+k/hvW9J1+ 4AkqEJIXcJui7T3FPDCb5Hj3IpmIP8u1ahFWD3yGcPBI2htxEQm9M/ q9ecRAwm705NM7dxOHRaL4m9cooShAqHmQNH2fX0bmN7j4zqKZZ5grLUQ7oPw1hy1ZtOG0psuSnos1w5 39H9oTEF0tpxpjWgq2QArL23YXCBbTfTcOrRzlCIqzA8Lfm5tvRVN036g09J /ZGU28hZsUcSbFN4EcYQhkf6RWQOyLAheVO4RplFkDeVqCzGdrNu2DMm+DfBWoa/FQ0u4C8Id/rfiXW4 /H8dEkW7PY5z3kOMVH0tv4LF97YPPT6i1el9ff3uozFwzefw0i/vp8z1urOVKv/ swA8loUiNFm0PnFfY98OnilZdzF+t2MGr3/zfxcgL2zFSS7ayL1Bk8H6fx6Kk3ybuvIoiX7Tgpcbej/ rQriO6crPeL5QRFD9RJ4z4g2j/slzIw1sBlW4r8SqTRcX1Qj2hqPkP9BaN5o/E4Hufwyf+NfBOh+ KmOMaLkcaolegSx7sd8P3z+BjyHsjp9ohTlx024Ildll0eF9h4ha14W0CdIAKm66Lok/ hELXeDQtDWbTeCoapmou31lHa6Xm32iQXhvuStZtHUL6dzYSWtiFfZ7+RLGmQsk2k+ TKbp4NZyEbrSB3Hgd5i7B+Jmo+KYDrx2L/V8mcqf8W2mL7k8qsp1a8X+NFf0rPTIoCczg+ naHbnWvironxRa2+Vq4EXFb9/ ZAf9G4IePUbkEBBUBPxZVaNNB73mDPqD4ThJTVV9MtM5VIRUNVdx4uFnjYsPkA4gZSvRoWmlQnCZr8rJ 3MxZt7zJ9eH6gscjmcM09EBUChmQVkSxr3U7vWcs1llMKsChcEihYqqvwnZZpbFYVBj +4LyXrh9t6P3D5Jd936301/ Fe5akufv2lfk1Wu28Rk8AhCgX0Zjp0GquAfx1mWxROXyF4Zd7JY8ehcYg1PIEvLoWcPHGSxPRnvJVEm9 4l0VAAgSQJMUvFZ2zQ2zfgnIHaFVC8wzQ8yokJBi1S +Cyb1MP5i9M4m4mBH6YbcA4E+K8rC9ntniMhML7+mwZqb9LvKaj/HZk6Y9lj8Uk80VfO5UirhuTc+J/ yHb08iyzDQr57MhV1U6RddkmwcKdZk2T225X9YChYl1bum07k5XVkxovwCS64xqQUxk386kl02upvVg4 2eJCdHwffL0QegZyRECX8PWQWjAU5BHncYUu135DRIPpLwd1Uu8mo7nhS2j0UcuYPpDR8 /gRWtR39P2R9Z+K9/ ieOxjA08qNXhUSePpVq6wtjwq4EmrQkSVhn0L7J8ecHc7zlFxlCR0R6vEkJ2UHEIvC8Jv3JNl+ GRrxh3u6sNY94IM1Mcn/5M3sySHvHIOIA7WwhmxtwVpzKdJtxP8OEV/Fuh+ TPeYq1I9VeHEVhxJbCKGo4yVCeKjMnMpDf2YLPY4w6R/ dkF5nYVt4Hvjt5qdXeNsSjcSvf9gEgqLiaodpQ6uc1UYFTuwgAv0l7E5wsaWNoyuldsubTtsEMiOCol5 rgRs44gf +uwv2aJ5Z335ln4P4WiiXipJ9gfWFBZ1BER8JkXDJXqHDFL7grAPJzzbMI8jp+hv7xisH+ OlKlTmK0scAxukAFqadmjCM78Z9nXlYidzBMCS+u7hPy4cOatawZpi65fbdra+ Zai9k26qN0Pzm7iEfRlAsA9v1d1fzB7iXhCh3o6+ 3aBno28c9Lr9tUqWJ4WSHw8grQhkn1ixsm8D5lU0eife2DZtqNQIuGGKeTXg1MCCVBK1nJOB6oStCKzI XCKfLdJdRzppuzle +8uvr1XfibpauCaZYgfNwVsPxey2B6tEu+ Gdxjm9r406x6zfOgRngXvWpfXseYOXM9eR4ouFIKJtieZnWLFQkzo8G5TCo85KlCf0oHLMt1sI0WeIDD T8FLhTHEO6dhuEJAEAJQVkgeGzgrlEDp61hilkbLgCIw6b012dQjK7i7B + 4RwTdYPwaiFpJrmbnWNgmrEVPWuSokEUB7QYbO9fmBSBxUxAMcdguwEpLWV4u6QBnmiE912K2ghk8Zty CQXvHyHDplJpPqVvKIe06jHiwV4iLR988s7ZAXIxxDDzccV1W7NIXvOMJ +Nqoz5ZZKZiqlsOsJgCxrNzPRqa9TVGO9uIZqPta8zXIHVzCDBQEV8VLohiWvNPGyjj6jb/ 1bkZM1oBilyt7KqpqGCTdB4iTJAIruhYagHaXBHg697/SfalbE2Ez+ 0YOXQz24ViVERfDPk1rZd5slZCxRx6SyexFDaSNSGTfyvdd5gpdCyEXfznT1LvPCIzrfhaju2x+ 0uaRL5aRhdGznAM2Pcz85DgtA+6/PbZm/ U3gl3RtaTXyOVpO1cHKJGtVm0bDVhCV84ciJbuZiwX5LkF2AXkkJDAwDf16c+J4p8szta9s+ CyHmF2Cz4WWlYDPBbPIkzE/I3w2gTD3vNwu+hH6Fcv2UbuydTBhXkwc1CbhfBUx5ePohRQuKN0vn/ XhZhSFC8opS2QnfRQmmR7teuC/ 2eFFZJCdErboSvGfegF8uM0rSFRQt8lArsHgxcnuwwOjS3whRVqO7vzKo9rRjaehVm28y6x38b48d5sw f77ZSbSvmZu4BwF32JG7m27I /k48h712Dy2FtvAr6QD2Jz8NQ2chEzSYSky4euBLVFc3zsc+ WnPoVWf4QEgwLjhjbpu8yz6qMrLvL3bIQgdILpdTQaFTSUf5sFh2Du4zEOkXxbP8ufukkqdOYmTzDwWH +zOJ8ym0Y6uUMXYmR3mRNO3RL0L7dl6wBMLJUT595UnSgDM1qOsLGcbXaDXB4DN+ aboERmVXxlywJJXAuMxTnCyDj4BFhfvJ46fGit0szr/OES8TIl5SnFrPSxx+Gvjdslyy7ffe6771d/ k0lnoxAqWqBMWzXgvLrqqLF8YsNNuNiowRHgR+ 0ITJB7m2YUMZqZz5b2hAkhyvuvNBPPINMBUF4YvDzV1sJzRkkucpfuyPHdcdEz56L1ax6kGzxvpVXYJY hj2MCpKuYT8FvBmMrmgrwCrvu7 +WWmh7yMFpbSkbEj4J3heeTcguckbqCD3NaouCBVqHjekRU5edok0qpxX9wc9cM3m2/ OjV3WJeWGV2f16Bbguf2/kXI7ww7h8qiz1fC+37wjyA5mqpypNIhv7SsJaAhzWXY6ApAhTyzApzBl+ g9Fu/DlhYabDYaxPr+wrwfdXXGVTS2QpXmWTw0Im5cRsxLPn7kE7tX41+ 1lzUTlsZsidv4Bj1gk21qLkI1A6d91dSVqU2v0oyGpf1sQdznUuUvxTuVBejM1LQH0wpfglgycwLQHFV huvxUolYw3x2T2R3nkUcshVAdaa +FArH0q70CvUHFjzRsxBk29vu9tz7boOcIHMvTnlJaTwUkJO/wC45hrFmgc+ MyXKmLhQhiD7b7wjdjp8gN24BQy2PWfR9a8ccIM4ngj3Hg6469/ZuC4/9LhULE3JwV/ dPRmEiWkxCaRZw1biGXTwPWgOg+i+Go/h+vxGm+JPgfSPG/ jj7NHpjGKTXnT9tU0J5C0y7ASh1ulDN2piPt/GGg+ FWFWnmO9C5IH7M9Q22Rd7uNyVi9JbTmy2nEuZVf2mbPi3b/2oPi/ wNYE5dghx9Ikm86e8GfF1Scsc6Rz1DfK+++Cb4pRyz91lmE3U4zce2muY5D/ ATtb6W4ldjJmpi3WN62yzMONCe8TuJ4Mtu75LQ99cD7PljLmxp4Pjm03bc6n3I+ LvqxUj015l7k5FraT8PYfR4gZ3Xc+JFvZU7p0jrY7cgD41m+ZUZ4mFuW1s+ Z5bjAdgR2InOGli1PrFboi0t7I6v8fS34HlBF3D1g343rm3ffU7NynBuf99/Y57O6Yjxe/A/Uv+Cnf7S +n+DPAXkqMSAQgshSfheqCvs9k8p2Y9y3W5NlyBZHWgyF4q3Sr/cQZpA07Z/ WjlwI0XnW4NdIDia5TcB8x2Nx39rsrf6q5Tqo9IxGkokvg9MQwBwRsUyZML4K24Qh3ditZPVRajXXcj6 Gtgs2bDbpJfKDVYg +49i1cAHUBZKeSX9mzgKctj2GbpzLW7GyNtwPq4Wa7Q14NPT+yKTQpUUM7sJgN0T4xOg+ SYWkXHLHecOt03/ax8WeH/2Fp3R1g/xiw3F6McNvla35+ZGpRGcNR0PRtIBhFlws+ c30z0Bc9iwCANGuqg65H3/5ay5cX4/ra1qvsCsvoJHlk8Q7iVGVP6qorqB7l9ek8o89wdl5+IvHnhy5+ PCkMxHG8u57eafp1+md3b9cTG/a/pYj73BBIVsj1ZZ8YA3tCnKgulkRizpJkvbcaz0NCNowf+ 8IW9i1bavG+geHLK/+KnxR+P52s4ivwLwUwLBoE1MDEn8xl1re8/ JvRyNf1ahawdK9z9XueiKBD6NxVk2YsbRJVflUtS4G+EfHWs+ LUzYzKSqWLILJ1zo1edDhh3fo9GyNkrfAbyjYjfl9wZ6x4CAwIxpv8shGljLIzswyyyyrLfzvGv/Z0+ NHFkGGYNPdyuuuSkSpGbGmw2ZbckxskwmqFq/ M82RYNeSO5D13YjwRmTjUX9gECzAjOz3cefNxgmRSDaJGJhRw1fp0V5CUQnVq6cfZxWV1LwuU3QXk2ik TUEGJqGpnaZPqHU1ZCKYSvfVG1s95XCxht5BbjBoZxH8seysaho8oJsVejKevMjMH6ToqJOrxHoGByBb CCpJavJvFMp +5ghYCx9i4RBsCQ8ArYcIBXdPEPLJHYzS63BOvClq6SplwcgymfXlRrMrD9wqFkjqQJbBtA/ cBzsblJvvu8ZAs88u0rZTeQz4zhf0P/aO2+ irO6VhwcqBlCdZhdXTBXfo6aRxTqOSZtIgYuPWRnCMkzs274kz0q+XRI+l/aCjLpkrfOJgn5js/ wD5oJtMrh47sn1eZirk09khu5wLQaFcD1XVfPY6zzU9pt96WbLftZ9WxzFGouUtFEbt1WPGOqcnjbZF2 c /bc1R8Vy/StDSiyDOvy2AsGgf+DVy25zmqcK6SG1Ay5jAJMJhRnIBknmumdSr8Fy+ OlB4imkZJE1sIQcwLTXKZLpgJCLsnLav2rkNW3bzSWIxcbMu2rUvKc15zoZsA8OyeD/ NTQzlJjp4geoToTKr2SqURrPjHYe7h8df2d2EZ58R9T/ laIgG52MjqQLPM8sykmvwDRjFGdAltjJ4FEgzFhtWSOJ7jdMyAUDHgXSLDhYd7QNBDBVLc08fRpRL6MU OzkT6vrxyBL7wgXBSxUW7bmvcwzkjQaPGKA2TEN05z2AHOVG6OU8DRsNsBeoi08tLL /A75oTv8UFYR2O0liTa9R1cle2O/ J3tbWlL4H1MMUcFGIrxy9yP4gkAFJozcxulCaNGcVXy53obU6GVBkGIWO3k1PXIAGBKUYU2PDYN2KlA0 tzadLhwJuSa3TEZnCVpR /RU8XbWuVZLRFRTlg5eUWuH9RlFLdibU0yTNmGWJhgfBFmlFXoYYPX5XYDVDccANr184B+ Rz0xSxvMkB4qEtze1LVry3e/ne6a1d+rs0BKD34eGkxCAfMMgUCZfOsWMowSu9/ qRT3WXN94J5MS35JJwXptYBPoTjrvLT2MrocoZaJJyHLr5JPAD+ W72elbn5Li7Yv7PrVCCNfAtv3Iv3PRapyGe+ AaN5JjIhBZQjmnVio7rIc2f0rvkDJKiPM4ypIxJ4J6s8XGbuvBQMsHJSMsCZIB93dc78cmppb/ IME5xSJpxRxfPefyCI90GBRiU8Wx4gJcejv8O9R8u4GsR+ KhkHKsx57dYItAKdTRT7UABDfVykSJZbBUaDhTzaipubboZ6tyXlGnfRPKNdaO8+ MvQTob1JOQ4KhOTpssO+IXa1sM0NOvoev01kh3NloC7QqoWpyenAdJCXgFDNapw0s4Q9+ BHfSsQ9ftPmV2836mlfh0doovN7snKkxkMDMWIHdDg9LJ0uNqa6rl5bW/ Bf36tvSnersfi6KcpgtM1v0fz748Y9m5uCs7WfS9LbAfStDgmDG4fCEvy1yzxCpsdkVjIxd8INZIcBT5 Ekfl +m+WYcJgN7w2FiudPdNfwD4o4jtIJbqLkpAKsDNlVULJOyWtAIRNz9/adpNhdI9/ pWXYJwUXYC5wlHfmmlQTNWjiPsbzzqngVMSMfCiFRvilL3PFkH9fOLaBqS0H5i/ YCHJrWoEKX6gkWLDEUKK4eeJ7pzlvkrQi/zw8C3dAna8hfiwsSf8MQE+k7quKv1Z4/ ZULSmrfd4yik7vtQXtVD8hUTifANtjH2DIuGiiWk6NMvmzv+QJTSYub9WTe/ bygi8ftIZp0xrgRjuKussOGOMEHKwDTsjmhsAOHzJRTeo+ gQSs2SRcDy9nEYX9rBGD0rl4dMIY1QcwhEQGTV5HRIR54GFQzPBfnZc6zhVeFuWf4Zl7n1HEUsj77W9b flql9tKGY8xLlp6DwJiZgsGpfbPGwNdj3O /yimm3Yrbcn5v2OxTf6rTwwiKilrjkf25hg38rk09F8+z2iiMm9/NHXFkZheSnKfTOuSvMUFRm9Vp8k4 +BYXXRnHGD1hPPNC/jEiPUiiN4EiPqIh0xowM6GMCgNqdxhwAHllzHIFrEYhTBUHKWDHOG/Szr0Ff67+ v3gy9ApiDYnoBDqkvHhEbRZwWMdHhVGFAoqX6FWWVLqPp0T4h3n6oap6smJu64aOj0tONS0NiAJkYgcn JS2iHpwZVc3F0oodBQgyaVhklD9VJ3bDi42arKXt51q72Z1Xn76wefgJiVmITqjKcPiq2v3tbgPIaSpb e0KAdVh6O2gvn +Ap/AisiFnr89n6rSyKvdYCNDtfxVMZO38TdKCq5XK/iNvFQF7WaDcB76Ob8VrBaPvub2e47OpzUk5j/ XD5oMSKaKCmAi7UKwoAPk4HYs0VVR2F6gpLjXV93f0OU4Z6zKEECRvaB1HggE9gHcYSzvWEvafdEk/ jsqNtOAfdhyRS9Kg/MbAbeZ6lC3nMdJGeL3H5qJrtcCN0AKru+85ibzBvC+ jvxHgQUc9BTNSEvYQckefJzCqn6aFGxiO2Aji4llvLxkOgDH1YFdstsR93iE0nxWoB4ix69oRlubSt3P S3hCrm80rP3f +Erh8JaU4x5OLatwOzQ7wJX/ qSjwm5dALcZ3BIq5pTEiDACMJch93p4i9Sn2ieyRj7HAsDkF3MhUn8ocPLwwA1c/ gmRR5WCTFPtRDQ8zy0D5J5hBS1F4nrzZwY3s27r1fB28Ri4PcfBsbTfHtuZuH2D2Fw3gGFkBl5gt8f8U XFk9HsLE1c77ICg6aGrvdW6HhsXIULrNQKLJP7Jt3myFnvBPJ0Vk04d46B5U7yC9zxikh9Dw4tYoJOfV k50df0i12Oy4owpycqaJP3UxdqGQl9dNGssc4KNnDFdbex4HfST4k2Ay89Ucl7aodaRMO8tqOwZ3CwEV l4SJLRxIORu9 4gVeZqMi9vnxkTmITJqfu4uwpJwXy3qoWLje2CCbgTmoQAsfqMC4Y3cvKXZQT44gYhhce6QyWi+ bJ0pUJqujCKVJaRbSbeaxTfDm9lbxZMlh6mr5Of1A2GAZ2aQ4l9K0W2i7Q1wetk32Wy4keJgIkbV+ WaNlPcMZ5nBttIQl6Ex4igCeXlMdzdk6v5vIcdLqi3qktcww7Z4LqK2gGDdGUSzp10jDkuYEgrPs6gzX q0X7jI7 + IjCQSEfiRI1loeQOB1nhS1AV4PXcYurI7jOLV7huKkHDs9tNUZIndAbEkgJWQiBPmpFnb6pbldDWFQK5 LKsA7bz3yx /aq1jEWxUkCgvhFKY5gJjl0t37+Osyf6PQdTdIIfw1SQCVgz4rqTPSl4XDvIigrPDFlEixF+Y6z8El+ KGvF81om1H4Ei3yg5PEzqHkfSRwzh9SQ0nC7fMVZJqlOVUjm4koVCdyvLha+ ufXQVCSJeF95Rb4sB8idmNdqTqFGeg636MoFlx6btJ2Y77n+ 45KMZypv1egz6tt6Rr4IQUKv8iBTUEZSfP4deDFG4549PbzI9gM1jAeU0IFnVpEQ5WGpcgfkTGjn3K4U Q + O0kmIe2rv0KB4sFxq77rEwzcyFDCMu52viM8kAXrORLZHYnUTaGlobN5x8T31eG9nS7pvx7wekHuT18k 7JrilK7diJMN5gPYa07UVbFmobZY9LNGxvWeL2ByL5sCa4fJeDwM1 + 5ru18GycVqYYXodb8mbkByh7KmTB6x4M3qLR5lrApGFWTYfVK23ewqmnflc3xjjQUd0El4rJ23QicjtY VXxou681hibRZwvvye +Bd43IZhi0gswrRo7ny1+G/ gtPyIod5n6zry6jkOeS0widG2VsBndYzbPogTe5Oogq41YBhW4mOr2gTYh0AonP5CPPgT/ fyCiTg4FduLma4xkyQzRmY7tyZRKZrDJ5ovVvIAoZ/laBOBDpMMzeO134EoPFXUk1I+n6zp+ tOuyzvDzrkLYreml2KskGeHZUx3M5dwI7KROi2uzhs2IjhpQkHlt3El7+G6l7qD41zY/ xqHPinXbl8diJpZDJXY3j/ gjLNqtNY6IQDdiuNwrVZ3uTRmyGTMvsjxelVt7z3u47Sdrhb3nQxuz251TP0UfvMscVd0nXtzhNtqx9x 0cezpgGXcq7wIoJ /4AzLI8PDaZnDJ1HzvwigtFD2+muEawDHX3xyl1YLCaQwUXxluPbSlg+Q+P/ X0xYsXuHfsH9FkbesqjtxxE5Rs9y5Welh4ztdvDOS5ViPJ6k48MWAq4AEvdeyJj6disQH5NKwIoX8P6n xw90gpoyC4kDRwpW05xI6tVuDF5Pl42XbewxHnzhTgrB7bKwwwCZIUfI +KvEXh+zbqO5UGyOCRigRu3renFUZev0obNJYay5zioCz7kyXu8gtYhqxgW+vsyjAAchvTWVJlhe0a+ a4rVZggwVtLg7z5U8WZBQney7Fmp6VDqXy9M20mqydsgOmN9d+17Xdd/ nxK6kUtFNRsCWvNAQspVspwjaHsnDY+XNAjfaorY/ oqyNYWH3WiS1KLyHm4s7SFTe6BLKD1iuNy6cfG9N7OjmjKsJ0g7yOss6X0VpJKLpvBf55yVGFxlUwBw3 1ceT /RxNwLqv3KP8FNOawy3hSZlKmGxjZwv9stsqP2IUEW7z5YPOKNHDYwbfQnPKH9/lXP103ka5A+EvjX/ FYHHRYL801nvIrDEt4WJ2uCMs9VmPmRnSje8zOXKVKBycY3y4d/ BnvO2w4yvqFvSx3eRbmog5PL8e0n1sVRFhkJi/bV4K56wpFDBoV/ aqK30xMJza67nbaOspk3sj0YXvwSBHfYPDkXlg3EjK914BpK9GBOQSaefald0MXj+ NFlC6p2nYGchiLA1zQJNVkZvkniMpkomzXMksaF2RQDkP0qw5+xR/ EgshxP7F5dOQwYoKOzZQms45DxfO/mvCbYYVvUtZy4OrjrROROjXfFcMlUR4SutiexI2/ YakvLwgz8lpBEAzTlL2cd9rH0q6eslnZoMLpCAiSuJ02gh2+ QQ7uyEkAoHYw9pPVHOuF4wb18b00cjxqaXn2jvJVztrm0rPM9mb5ELb6zBqTMKTwgPNtXjMUVEBidgWk w2YoMc3ISx3c609r75v8VQMImCnsfkTWyc2njX31ZhfTXgviIehIa2KWy7yRWAbQ9s3uvV68yjRFxipn h1vKygpLOqcMADM8fKYqs8VknScBlrvG2f +mI5AKpHiATll0YrWDN3QJvIMb4QvbJ2C6qUxRCJeVQxpT6i0xrVBfUHY0reFLV+J/ Goav1c9tZ9zkdunHYUlVI4Va/wSFutw0stSaQQftfPsQAlMcSMYKeJAlaPZLfEcmFZ2q1YK+ mlzZVh5YFlpxGM6r4kb+M5cFWGKD0kxuvnsLkVGsPPKOiCrJWryIhsVI0ga+ M661tb1J5AmHZzFMlWMgQNkPnDDaLsh8IRo+9rdupw+o3/ UZR3IP37ZlgScfZ0u94h4j3PF0LvSjcTCHW2jgWhpbQwUx4iPULFUFlkQCU43a9Rrw6w3JQ1meJIchF2 gmSIymo9qd1eodqlc0Zsq2dor4LmMzM4NPRf55P5euFMmlDn61J2IooK3Rj6ad0Lvt38b /ZwK2fwjQxk9nkhujD3rQ1C4X12nDSRqzYtKA5LyvZdU99/ pY3C5i538FW3MmF2KCfytUZjhWkbH6cc1i3sCYPl23qlDDhn1oyfxwTpBpGMru6Cdnd7Ya1An77AuogI ty57kk25M2f +wI788n1+K03mdJOnZtYKUAMKkXcbuUWH7qSsLYwlxzyG78g4jy9RQu3GFvno/Cordelia+ TmJ9JM1xpSX5X93w04E37U5s4x4+1EuxgHwUkPbg9n1ny2wo+ srAzwhCOyVoqjJc8YBmB33N1MqbN2iP0wm/+x9MzaOpV3yA2jFIHc5GApIjEii1KzZ3z0AUeem+ vVVL5zXxcyvMUZWO94kpKBwOTfRd2HTZxMlCqBaiT0Ms+O7n9st4mxzt3xV3xNOK10wI30j0HUqhiHc/ QMILpLTuLE1oUAa+DiX4FsVAQ8R678Kulu6Dy0kP/ QVTTIymtcothk7bPT9SVoU62o95NYX5UYiBvPiXkVQBL8oxnmisrV6Cs6Wwe3Fjj5tx+ 8Z0OWX9UPcqq3kVFwejGVR8rYQ3O63I2KzZirQMIuRDrxZGv5Z7UdsTCTzOOOaPVz6Ob47rdBpn76JQt aNWYTu8XH +vyxgVCCzLwJHZANyQaXd3xppyeckV6S+ Gt9fvSVzI75SmCUdVWgEJVsOk4pWWysOlJDo6ualmdbjmQNAO0GexjMaPKy1CCZrsK46+ va1fjV3Lj8QdSXJ7zxMrrg0rCj4Ef7WXVWkvq9dHp+0ZKt8qLc/ rkBdbJHheKCJViUfiJqXYI77vhIZUZ4yH5aslA8oRiczYthZzZevYtrTiTemkbya+ VpO1xaLPDbPs9qYdmAzABs7D3IurHtVXBwECEHZO5x4/ bBIAGRDfIw1mOSfZt8cgdRdA5wqRsnvqmJEH3oGDGX/K+HUVKLSs/ rOEWjilNeHZYeqzoDrdlS09j48p1ql82n2vlNeC4AQcYOzCgvzQfX72TXzEXlLXST3NGPJADa4t/ Of01qJZnJzihRT5UDRSqqHyM03QUEpnqFCSmseA8eCtckm3RwthC6IxugeCUroPDVevKMiw0FhAdlPdU VWqQ3F1BvXHuqQna9ueU1CHPAczitVPClgNdMQLPo3TtiPm2H5StkFIj9Ts4WsuqNCev3Ng30mI4cA9R izi76EPTtC00KkrJ2uTWOFqKPTRCMDPKmgNP0VorrWMSYKKV7nfBxknnED/ BEOwsejSQY8ADQjIzhZMwKF7YkRP6efFIqMGmR20fPOdYSRfcoWJHRPxmqyfI0MVDyBJPQIGSRtUpBTi kAG7Kk +lcYFakvFnFb4CLL8N/ i61utggfjU4Xn3pTtlvOw5ErX2lh1865pbzkj7wKECCUWJceyABQHNkxPAWsTygecWijqxN5qm2oCQUR XjGqAIJbpBiwjOoxmRIYlhVgJV2i8THyKBsi0jlQl5pFXjOdxQNl +XPY0EORZVSZO/iY/FfMRHPbjx5Y234RvRWcaUtIUeAqpC4pI62G+ 2OdJyDD1gQbl5BZuAuFwGi95wu4MUIzz98Mn2z7D8nH0u8qZZUIjl1Ib9g4lsIW68OuJ5Mab0UEhAx7H w +9e1qefHbnCPRMXXXRHKXUYMUFQFPrkilC4mXR0NUxgRXk3TlkPPFM/ xdmX3n12vsJnYNgHLoBU9saCsESj8fdVK+ MBPA5LMfyJ1SKNXLzbPr2HOg9gdmdkCZupICtzEQ3kvXvNedahUIHzJfuqzp7Ps6pPUeF0Ons3H8RNol +zq4tR9PVO1M1C9soac14kChGegxlzeVSOHbVCv6p+ cxPeVDQ7ctYMdE6eqwuSz4KAdtuWUvTDDg4dYQ3ATPL2C3OMABWA1aWqdRumsU6NRYPZBVmEUUUNFf+ 5pbMCZPzJgpfggORFuo9+W3TES/XKdEm42N8x0bdiJZpy+6AARu+ek9DXYZBqmme0Bw0l9+dzFzhG/ r3m6pGhr60PLrGoAh7mVMtZPPHkTOwNOMNnOLtgyzGvjNHOPXl3Tj6cHhj8fBQyo6lR2jKMwYimRR0NX Kv39L3O2LhYeKoO8xWpwH8h0s2g7 +7ZgA1Px/XwMFWO1sNzlLV1tVHplup2DFDFeDRbUnLDZrHVwFwp3rVJJpcc7iPsn7YhjRT5Mi9u/ e9zmqMlDlXicd6pxY7crZ0/ NW48YmxcHncXgUZHegjzNTfBImmQHtXP9aYIq64hizikeOZD4r08mzoQLwxRHlmSJNB2IQmnxCDDgojM RVDDX6UOBwjYCu8hG1h4W0QQOZ +JnG5lRVQqkx+g4bGU2APMfSFzOPNBWaoHyUqMqIAzwC9Xqk5gvSuDeRWSNYB/BLEReV8gPiFbt/ PBin7ln+UgUwlIx03xn12m3tLYs/UXoFG6vFvFB1pQ0++ O1XYpqUYsmADupX7dKCRXKrLtFefRtqiYg7JdMKDh+ IkLGWRKCRjcgLDVucPPcFR7PBXvBtgMpvQeb6jzXxPPl4wNCM7eBDwtSjfJvYYtRaKFO0rOfYp5xEQKR kpT0oqVnU5Ft9pmML93df7BQ9FzP / UQgKgJrK1s3jho6j1Cmf6KlR6MDbhSZiBCvjXIMEYBf9YaVOLFT8wwIn9N0bN9vMswvJknNlHVBeIPku IseHqkjqWxjH0PvAJsgtXLteY +cYYRoHgBp1m2HR8HCFP7jTgXDin8ZzpArSHFEjdA2SV6f7cTdQFShWlLp1qGMc2j1SRK+Vra/mnp92+ 97/ ziwbOw0hsEbc9khbMxo2pvrKUxtxafcKqu7ltOFwHuD70r1sSNtdcd8ApzXUc3FKDLexMhj116pDtezT JVGU5TIcBPrZLrZV2SKQAkFNziCuEkkuju1rY9Y1cvPNkdNBufxtjvjBtbU36ujXb7nCXBZfX1LackNr TGMM3AwF3WvM2ZsbfGYfC2Hh1ePHMxp94h0wvbhDbsxUjgh95 +wdx4sTpx3706Hz5f62QL327kut/AA+XCt4C4Xhe97xEr/IgGdDJSS9CUq78dUXxOCzLJunIZyKITh/ O2hMN533SQrCbev359rvhfwOuuQOz3joGBjTJq8virRRQsLBvwYOB+x2hRgOLCH6+V1zOLJ7GWvHZa/ HNtx35pBGI+yVtqtgs0s0roFnb4J3fZAgk7g54bKNZJIkaJMXEHqxagfMI0HpE7uYfmNt1shxTg563+d /xur2et/I9/ KpzOsgVrL2NlzYas22KKt5qfUqao2K2G91n3h3aLsiU7lkqX3TcaltaPA7y2LAYuWhgol94xRlKoDWXc vMuelgvzJax +g0mpySs8w5XGgIzNST1INBytl5+9WFDC1AkcsELrLt/i+ dcUFPL2A0tPzECAzX5k3CGMkaRTlr0bYpOnnUZIYJhTFKPvNvJQDBL4pRDbVZ38TxR9A5Z7hW1hfUCi8 Q7XkUCiPF7XrUOmUP8BBmcs0A4Sk0E4SV7HFDFjF7GAuc8U +pX7av3eM98dCnCogJneBa6IQzsGzhG0jTwoXthr+ tj4B2csRxtad78mV5VEptqcY1JLcUlZQ4llFJMOdzARAa0PTx1YBOeYnY0JxKzzw0dcIsjzWm+ HbTX2fZVufT9ZBaf26WMQAzYdvayJACrBO6sb7aUYqa1vkfOlwEkovNWTcNyLSK7IpdzurfoHii7bEu3 KldJ6fby4EkBNn8cvvdGYYTEWZ9wYWvyvrjYPd5zbf4pd / pEoyi3JunkXyfo0qlapN69DlC61FYtPcD7xzk4cBCxhgqnxFYkAo8HFM8oZHZ91YfSVqZXrwLLjv5e5C YCXOAvnNggHAw +26cCHzGdUefJDhJp126OCR5zmcd/ FcJOgWWYGdMTtOXQ95S48CpaG1pfRbYxtOSZYEBKUbAsA897ivn9XOQ5eWoz3PZaAW74oCivjUwlsvRa K1lfW /fS7d+p6JIeIkFN4q8DoeFvm6K6/d+Xn9+RjBtpuxaUiZiW8UX96/ G5U1EJOETlOuHk9I6RsXX6HoKVziKCvmBgWma3Zl3RcotOjH+qKAoA9l7E2+0KrOp2g7Utd+ P2V9GY2pNQ1Cyhktfah3Z1ddZ8Mb2mURFwtPEmg7dkmF/usezp2M5izMCBGdDvl13+ysfDD+ ThEgCE2LyogYtgypDd2gdTZtWHrparvmMOI1az+ku/gtmgdQdh8FzKyZKpcT+ NjOXlUpnaGx9bAkhrzs6uA4d8MPlK96laPZzotcp3jffnO+nxDywN5qg7j0r17fxeyiZGR4Zk+0y6tRq +3ZIBgwssKPmsjerRb7f/lZ/FY/HyrV40+EmBnMwLp8IQ8Vapr7dcRxibT+78V6i2wO4iP8O+ ZRMjwgYbxna1d7AKlyeng27Ka3gamOcvtrvyNnjZ3nFYzF+JtD0+w+Z6zpi6j3r6MJpHvTtU3c/ 9Gw0aASyhPeAfTTxm8Lll1bV+LnOlTYlbw8tbdLlvo/za3CssrQR/bHrdCOhRT8C6XGSBcbZ45gV0U/ 80qh4q1ebaO85lL/2anYbH2qbkbscN3bub0aTt5mupmRbY8UPrryjao/ 9TSLjW9c5sWYqUqZRExwu0qftpWyHa58/MpY9ixwPpywXF+T/ zInCK3P16qeWAkTtof5JWRLp5iW759UmhafLA3wtU0fSAsDstCwkHVVDL2ZNIikVoFnwDnxObgeP1lAX hyQ6r9bocZR8I2t /ttvJkqd0XJLkDjfDfZydIHIaIvQHn9Ahq9jpErbLfN0VYD+KbS/A68k2xl7vfijBMVwQ2HjtZALS/ KEABTEMVFWCPhRyhlSofFI2nMGtOHxxpaVYW7wYatyS54RKLSAhOaq1YO/hy+0O5uLS+ wcyb1SfOBitJ6YL4Az8kNhh2ldh8inZXosx1JWBOjwcEjngm/hMCKSgR4tz/ qqCumoeHLzxglcFKR8vcgHLgvFeoQehfMHF+bJxjgZuygFOMmnf6pAR57vl8YsiT+uh+ I3294TOal74gSz6vAsOc3qqajhxo/e2rteRjXFlyqYm6loJ7WevPQIQiDhD08fwEf+ HfkyGzXan7flQ3E0BsTvPvE21Mb04DCuiyryl63cIVxauDcwa9S9lf4CRTaGYmPQKOjfaTxIbf7JUyYA Q72LQ6qEREi9eMzeH9Ga0uRVX7j1uDX0gdhpNZpwi /LEiw+Q8oyPSlUSbIILulOGfoPQRV46H7cDGQKZFlvRKiTO0R4+95CqLGzqZWiV/ YGw8NsQPGUZNhNIgEJ3+zSfolM7vgYeen8AmccBkImroNxlw4QK0b9haic+ 1qxb7ogOpwP095G5Br5Q7d3m1xAXaYRHC3rEAtHYk9VQvEfx+JIPFFzba/pegMyXmr+OfEq2SdM5/ ArMeV3l6GNi2F1DqFbm3ExOdiPIczbKnFpsvaF00EEHEVgrkBCnqqR2BmzJuitZimYhbbAPPfUXs7js2 dJHEq /LL6elXPwf3v/ cWx2jzBaRB3btT2LyrSEFEQHKN8uITH0KEO1LteNsuWmRrH9Vu7aOb01QxlKknHUgbXW8N3FYG8AerIT aaTUnpe +29hwk56jIpBI+ c6eGoGhkBKrJkVyhor9njEE47LIluo8h0T5vU8po8M9BSng8c6m4loOgEsSKFfcpKosceQag30YjEjwI 3UEox +kd7BoGNo+FviDe+T8QlTOpU0it/qTM1OIqxb64sZ6bGSEd3LR4abnZ/ BpkPbuHxgKo4kiy6F4RaKUOdDpAmxCuj9wbvo/ xYBqwTDwH8VwK6XNjttt0fbmmiXbUsJP8gjeNHbUzGxTkv++hmA8N5uGR3JVimeWeQR0O/ vtunQIaJrem57leqzBKcXj6cSIzhmrF6zElsyKUUAWJ8e2ddy0pX9O7gmQvJ834H77YloA5csw5rX871 2W93pa /U/NtBIIOH1AtLqd2NKuMlhHL8XrDMhvpiRFsDjIsuCulqsxop0qd7Brz5hb7Ur+s+ NkvG08nw0tq1kdFrKsEwadusfWiLhZbcB6Qrb3jrCxd1kZP5jz7qbTDJpGcy2j3TpG2Y5eauPMxo92o7 PINZkt538XXEPmfpfU27gNM056vVA4twZvDYifualeDWrGmxGI9weY4h4Z9Fmhfufx +i5q9IYBjzhdQceY6s8lFu5/ppsr+U8tQhoUbrI9wOdm7jEJuTlku6kBM+jf909w+I+ a1h1IuG8D0jXVPNx3EKZA5Mp6HdCo31zWypChZAdHjMrJQm6q+lyPyzEREMglZE2w5JFxJVcG+ sOeW7KFafOlPH6JWWznG7q14VrgB8zjq1ofYQ+ 0jziMbPr0LGgAcJRutSzCCHvgnb1aENEnQb2WUyTpsovL1w/AAE/U81NaRC2o+NfCvxA+M3w4+ LYbaeB4SdgN10Nqo0s7av8vcd442wub9xt3C+Hwmd8ID0dkquxj0/ r00b0kff8b5rFwxs4gIRT3smNGeRA/pCQbzQVVxbc0fwwpejBsvFHKbh2yk8/ HBxGFEeu3s0SWZcB40iNOdNVbXH5e26WvETCXZFNOEePl3oba4vkVkISUrpWANteHXC52+ 1M22y8lEEX8VtJrGyk6CaRAJ6XRReK+8Rv9HQzYEvrh+ I2aqcaVvso8dywP6lgOI69x6toSVLHsscsywEOu1GnORYIjooBmldzuESu9vbrNvBaKVkjKJoiHRQDB8 AWHzxxS1t9UbBnQ6 /XGxkcKm3upPx8ceiDbZrjaOVKyKdm3JIsCfqPifP0WDpqOApduhssQG2uqxJhilAG/eLHGSoc/ mHMTXHVnaOnln465e0QuLAgBMzJ3YZAGygNsrugJEAcUGDP2wh/wh1GS0+ 5osfj6mEsMPxrcFaVZeuRhTQh7afqZ5musO4noFbMsLJa3qjKSCUiVTS3IW38vuIvurlE0k3TQuNPcBN CGRYGXCt2ZgjVZrUeKw1fDaWBaor1Q +uJ2GPk6w1n6Ir6UAtIQVGJhy7/vQilzN3/VJaidN54n794OSKOT+ osOuG8YPl9RiKpleg3ub9wmrM1xk25kt9PsIp865a777UsTesodmvimKh5DlVYtzTa3xamxnnU6n7Z8G bC68I +JtH8a/8ACPaPPqfho+M4Gb9OzxWhbzURb92VJtuM0FTp0OUgLyxkJt37BY9R1JuJk0kUoJfl+ EbB2d10xoSuqmn9uTQpj2nkW81nO/jm4XSIvwEFfd4lM/bm9chX2oMzfBnx92n4IqC0K7s6c2y9U3Pnd /9Y1zvGkXUqwoRSMjaHkALizpkK238O+PUr78RS/E59kgr0hq15gncSM/RHxz+ IQ41o4U2blTPdtYfwlyd7Zyg9+0F4h+QZguYqPh0q+KvEH7S/cR6SkSJAtgsuB2t0RmeU+I/EM/ cPObOu30ck1RybIOudUdjXDKoV2x1M+K/ XOw8FSK5F7mNOaIyjU4FsMyp45ukot4hHa4uF84nk6w6EwoVjn7/ W9e0Jg5vbhvsvHiaOchBbKMlivYORJ679lw87LuP/RAnZ64fOgepc/czA1YKpf6hFtT8+ 7guXawgSGhvehs98S9qWP0t2ta+8wG9zA21jyhWc0iI2O7nzGuY1L8w6FADh4f/ QpfuKEyggxSPbbCanaoZZ3eAZ8fYi1OuWk64/aLqzjbdS6d7fERdHEK2k88XzBLsU16AGHa8xseAIgw+ hinHVaUNE6N9bcxrfae4xXParptpfmF02bx5abAOQsq0e3ygWQOnbrqLjhu/4ssPDcuqXN/ k86wsjy7k2RTSeZ86l/JajhRmD7r9e7R2Vp1ArmdEmiIdnrr6mdV5n6nCZsP/D9y6h9z5R+ uLrVrkxeNiMbOlBOnrK+foozifv19wOocd/c9HWVgECkpbLTQPj6VsVRyJogOqw6mZ8tV1bX2cep1d2f +yaPcELxTKzr0UywwfnaFGBcnGbnvsGGAXMQu+DLz8yCZgPvO4ec/PcQDY/ BbunKfSo4kB9FkDxCO6vKWciaVgLS3DrxWMSKinSfbRC8y9A8yoET9XtW4f1hp6x9nKK9tffVLbw8NqF ZKvPQEJGXBwM3tOaD5H984VDtdJ83rUrN1x89GEO9phc3PsEEu8eNFzFlvU3mh5lyeYVqhQHIDaeJ1PE Y+DEsWuIk18E7t0wql7u3/PJpr1xZy2Kirv6TurT2a4+o7eaC9LJmdaLm0f25Wc4Fq+ 3Nq1NuSpb6VFFo0F3DClMTxBAvLWXsVKx7F9G7X93AErznj9ickglfsuAVZA1QKkyueTwem+ GnBApKLmkMEVS6By/AKD/ABb+AvsyS3DhKknpIyYrWbYNdrlVploy0IhjsZBvp2j+ 3bZhui8hLRnn8l6XrHMmeUtnLtyA7q7N+JqlyV3C/ jVgk8v18TcWw91tytfmLfziGwfSaOXFNk3YneTUXfjT1Nxt7cmxRrZq15dNYvFPS0fv7tnhmuCMR95J1 + cabb7deSAYs8qHF7uU2FAz220a47gd6LgDCZ6s13qvWorf6501X2YvP461k7rLNoVfGgnA7yRhLfokun L8CqjHZyAc11cZ6ffZrWWjxj + X93yGlk949ejw6co8ifquJYekku0dC93ixe1mANonJGM0vnfn9vS5WtWYpDvfMIR9bwiAQG5dr6KBpgT GL3G1vEE4iqh7xQBwvYLOQv6QVjTuqaXDpKQNPs0mDm8Qsn6kU8uycfiIUrM35w1nEBshW4i5lzvKIV1 9bqndXl9w UG6kszajamnGKkQCpvrksd1xgzPk4ta89Xc5kLjbIp78g/V5mBa5DyDdCSOdJkYw6zRycd/ DCa2gz72lnS8xsoV5SN3nzNQMhgVrpTJMjaQSgMRnezR9ZyOcZnkwQGuEYwA9Zjrn5qtyd7MQh17P7F2 nv4Z +MvEsOg+ZpwNg6mJB/HGk/HHux1M4Ku6Amh7K4bKoW0HRVZc9ofcxpe9Nn6OhiWKBnrcddZEgkYaq+ fOpwai5sbKU22cK1paGJcD1G2wjEhVqVMpjoba8JROYxobvkCn24DR6sJmciZx6wDnKpjuZp+Euo6zq/ k+E4Xpb4ZlmKPhq1CMvk2ar9O4QqpzoQAy9UkC7em1yQIoznaVv9hKQGwG61sevqOm+H725j+ bn9iQnLiXN7f7kDof1ZCZi39vXAwHk/ jYC0bY7QD1Ro6zwJd7rrCJAGSSyCGzmrIPzMXHES6PiLoZW7n8K6gh6X+IykQ1NBlb7MaETdn+ Puv44y0jv0pcmVxhV9ET65r+HHxJ0/TtL0a/ gNy0XBfM3nu4tw2t0fUyiSze6pg6ifutV4os4xWNafanthjJIIkoj0LiGQBnSNmxVb/ 9kDo2hypDF8ZAv9JcwGKiDM35uld2cy80oLQxWFLbzimNjs6Hywp73jE7f1ymnd90aie4b1tTbJNL2ln VgT8yfBs +WVBb66PEL5QFWqsDjS86IsxvoC7v5T+qjaJlhAi0V5cEJ389gtGvN/ Bhlp2d6PadRlaXJKqTh5p1Bfova5v1mGucIqZz2Luig0JbqCKo1/ J6Ii29z1nQdYpaE1TVkbXmkJ1hj2SR2mldw7ASiztfvdQhq7mMvHy4r08o34gQUuS12f8Fb5omM5VuEP EUqRXo0geQtb2rYiBgiVl5PEQVGMyRnO60X /O21NloACMQfhOKxqcxwhDB9qTqR+75uKZUDTIvDDlYibL17NAqfF78dkasfK5Bq6Ni9j8Stewvlf/ mbWdtjFtsDwl/3Ya1d+EkX5A8By2ff3BulCMUgaQub6yK/ DTQKkGXebawG4KFoehjaOSmUqpTLZOJstub3u7gfPTloG2jdF1A1N0bN+ lhC07u5aBk6jg78akmmdzoAu2te+r2vt0zuZcvZ90CXzTa6g27i/qTDuFudP3X28ORIxd6n8D+ We8kGJihrzRyt0seiw/8Ag+m+ h7AlYI6ezTAqHTcCCqvZcGsxbnn99lwd2e9ujLJLscdZMPfYcaEc265cntnasIWqdeD3lNvHfbO4SznC ErNVVQBtf1rlGuyEuUFr2Eto0Nic1Ff6I8Z7r9n0f1e6KKu +QnDm3oCvJ4n7WsXfMWuGaV+i3+keHdEtbrxn4/5NCyzrP8ITobY5kuf9m7NBv6hUfe+ 6YRzH4Ec6tzX5A/Z70mvbiyqNUjDx+GLOS/ ttfRULZGl2ukl4AVuDexep5mqvwpgljzr5JvwE8fXUFJBQrsP7N6PygrgSoU0JqRRgc2b8K/ LTwfW6ruBwdMtk94TgWYbAeZz2lylm6nuW2ea6LbV3DQ2l/hn4h+Jfw6/szwjR9O+IHxd+G/ sxhvoFnclI8K34h5U6F+LddWfKpIjv223sbUlReDIuHuguxR2qTM2VgrJsWCyOhNhh3O4J9Lkg7s6Jw+ UrWaiy2bn28ZNHnWxRMVaZzPbVMZnkIDb0fAtJOVicVCDS+O9N+B/o65kkJlYhAZ0oQ7V+ OTy0rgs8fo06MGml24+5Z6AcNy1emAFiS/mo4M8QySt23XxA1j1fcLtXhEA8v3F+ 1lX74clph1P9h4Q27DWdJi+sJ9LNR8H+CPwb/S78OGQI8mwW4JtAfbKggLMkWLqz/ W7cQ7r1S0p2Ypn5094A8H+a6RmPbUkiM7Xi2W7IycSz7pQgPy0Mc21k4ToXrfTf4qQ/xf8Asw/ Ch3gk7CxB7COfn/MH9T0efC0IkIvuKh1V2SutcW3Q3XfwrSzrQgXG32z2BGz/nf01DhW35V56M+ LlD8VnEE65AfZ5x+1NpL2/34m451mna2P6g2Bmv2B1xG503VF/ RZzIkm5QY7pYyjk2Ss1xud79xsLtapZvKfHgOcL52JmJ8RxEKS+EfD+ x0lyVcJUwblUaCrT5e9srxmjh2nLc1I3NJ1YdNQgCzUEHoBcL1s2gYLlrMnszuaKBvgi+9wjw/ EztdJSguFMeFx4wtQ6ukJgeJk5bqeJ+sikwxdZcv0DWboAMBNw6t9ymjc/Avg/6A945QByBX+DPC+ nazqurayniW+sTL4qTM1G0o3D0OL/F0aiGdL7GZqSogMMxO7OT0/rt+1+Hv5a7f7h9kmv6MXYvYoG+ VAe3Z7ykR9dzxifJRJKt54f2bpFeqHsg83pbgaTsGxcBqGQK95qBGDl8F3dSauV1Ssnya/ dk0IqF1N2LM89dDpinrGLil01usxMG2vOjbqHQpOfFQak9O6xUL1haHk4yEHUg6wUVW+ zCPp3wLq4x2nc7/Ce2umxKSgGVa8BejsZKF+ QfzginT2kB74JQm5lFCK7uO5OQjOyCRP9mF2Sr35oN8F19gYrtBnCtae8byle5pL1JPOo0GNwjsLDcbc 8suP9nt7Qcfxqip / zzvFazLtUsgkBo6X5Up0GOoYlFWL06H5lx6kCFtzthP5QpS7kAMNYZNVfRC8rmCqtvcmQOpA4LIS8wnk b4sVcuCthmpXkXCBwvkvT2sUo5cNAXp8bWB2vCQKNYScKHJTBqkVztGJhgKa2Jep2YP0RjVMLZjWOMQM 7gLpFU1hZfELIyvZlLoL6A2xyC +DrqS0LrdVudtU5JOBhKE3lh812mn9pf0xzwkteYwvf5FnmEgW9Gn7re/FaZLhW0hVyNAoppxHh5eQ83 /DL9f1zQYPmD7wvteM8qjVNrQrdwIpZ11iza75sSMR65jAjKpqjT9tK86MOixTiuR0dv4axOWRD+ SMbZJTGUttxZeK3mczRIYRPG0wVqBzIWif/ W7pmWSdeH2lAfsvzltoo5tnZtPklujLO7DFSrffC4EU9GsBMIwVHn0qWQQqkSEg1sHD22VpDk2Ng+ SWHIpzDMLLdldTmgzZIHINM6LHPfOfFdDi3Q8RxXIBrBFm5UB0KFQaZvAcNtfpbhrASz1JAKhMoagiA4 kMe30eODdJIHFVS1BhyQH1HrR5eqqpXjdfeHxx49xu10YKjGj0p6NOmwj3f1HnCIOt7GeCwr74GW 2HCxL3jUiLgwaZGBlPNUZSBWhkq5LtueTTAWS2U/ HuWEbw6oZJxUvxLsUFbCVM0YQjh6PdmRb9Z2NXoVfW48kYNVDCO1WyympKFS8886y57/y+ OfTrqoKpp9c6v6ok57pbS9cxgzBvp2ghFigWNpjHMLCZUBY4ElImah4hhJwByjpzSmWZjjGgIQCuhs6H QIFYR6tksKBsHUhrFiTH / w7oGFMCwE1ZpJTGfIEhCdP3u2JTQjNrIFonawgPNrGXlZ5yAKj9nwAuwZvuKUt1CsbzV0OXQwS65GEm7 lSmZWb1P3emlyg /1O+0D0lboihf/eMGde8aMfRBUG7HSMWkWH6jkLie6k5ua+1hDQD7g0ykTsCsflNWMxZ/ oHTwRLjDiXOIU7rveAvf++SNpOMzusXCKViCn5BZZdSWqkloZd1r6g9fdvQVPf+ SE8BSsh7cReElr5FBpL8PYJ4YTvCXdhNt0e7tV072Ey+ Kvr2hLnIfJQlviSd07yp17r0nO08C2B5fXHosAPTTz+ NjQHIIjkqUbH1puDY5BMCcXsO4Ti4W6kUQ4XcEtwSlsygMvTUB2VibdXSZ3DDzGdy7px6eRUrwWykqFr XkYwk75NvMBpCa +HZxwWw7jp+35/WbLrOfnNy4brHH8otOZEaR1WniLEv9FgiROCKYReQlkUPChLbv/vW3V/+ Io690OKue7KZZso6jm45t705rtm9/rcromdiysBvVXQtVTlQXYfS1Zb6BPEUXwwMHd38xGL/ BNueCQ1XhIjiqdlXlzRVYGussC2lmYlZPWpP1Wgto0OkQquIPxh3nQwyHQdmJX7/ Je9FZN00ZLwkoj0RwIBpIjm7BF3dAnjpO5esdwkrWvrUziI+5pwDQnlBEV5uoyPR9KY0LM+ KD8YuOLNfab/ga2EbUnExgmg3U96Fmmpj5+ ci6wvwfk3rIOAg5OdDbu0YRwgbpAsuXKJVuopPMSZHasYBlyysj86gLKR8dZ2JQpLatPAbUpQ68r4PFE HkQS7qVQyur1w7K /ddLlNVXRBmqoUb1olcKnugQQcyX2kRxiS5bdjjjCqH/ VGYvLrE2BAOQanKQYJCqfI7Mo7w46IN3w8y5CnG8VvVwiAyYcNSaWqjJAsNI3huWPEUnQX0K6mY11dCY gYwpnFQ9LHSdyupX /1BI3CO8XOO16tPHbWamoIyZqpQIoPd3qGuLE+ f6sjM22E9QQb01n4ntK3l7N8mThgsEeyRn3qnoN0Gz68BERT1vRjrpBuCZZnsccid3q1C9Rog+ fffUdjoV5Km0ojwewrMRKCgrSGeUSMWbDs+V+ 4tIddMTWMY9tk4H0zVIojTyyNylXScGSBUbvEgYRyQbBJRsFgSUrJWctUolwG0iP66ZeKXaTcoR4+ YVSg33t16chUvh8JULBu4KJHXXolA9rKMOmE2NNLO0E9hg46FgP6spjvc/ GbZnlYVnldMJFd58vJCA4xvpxlx3EaMuD4g2H4/ y0nZWvelkQPS0Vtq9HtlPlspq9mFCpwRFtKIqvyoRg90PtKHNdPHIRcfFlpBknw8Wft2LcVaGZAbVv6l Pmq3gz1VWU7KibA9qGCK5UcmN1rElGXtF7Ons6rFPySmI1zfIS4a2GqqvieYBNIOO82s8ACnE4pABuRL 0GndZZvvU4p4KAZuFopaSLVfg6WkMKdlqWvV1BWzRpSXMYGAnt8 TPM6PJk2P6Qt6mF3dRdUDyfkZFhuK9T7sbwL7bBCSb+ R07TAV75ocbEDcmb3xRp3znca2iMhB9qv3HLwjjE1d9SS8c0BxfaQW0Yx2yVvapvWYGcPBrGohqIbVBk nZHU7VcLn00a +BHDXi1AdKpoVa9BtAfIO0hHsiOzdWXT6B9Zs2sbsgeXgTJeTE9kjUJiVwj1WbIQ3Sl8XQ/ G48ucm8bN3qtTGnCNKTTxj8lI2p2TN064TSeJet0oJGTYxQ3Tox6E35aM+ ma9DyIaw7ZIXT946SIJt0GmXqFUgJoJxeJEwBCTPiVzCVXDrWstbenmByO06qt+ GHF258CEe396O5ig8E2KpLnqD3A7DEe8wJDnGb2vQco773s8NsLca3q7M98J/ pomMChyyDiorcqoTecq9JjTr0uYHKhSLoJAlT8vgCVk5R5L0t9K88e6Dq1i0cb5X0dp5WcWXoXrehSIM Zi8C9qySoyFkYQ1w5cEZN2COCrwouxywI3MekrX6SeZd0dkBAl6hJ6xl7WAH5C6oVzjLOruv9WkKVQYZ MFTtBZNakWz2vnnzugbadTUxfpv7L7FZaWVm +kVZpt5KDRHEntnQI8jmA3dYKBN+6k2uVpEQR8LrLdHNNxw+ Gy52jkw71RsoFGGmOq6uMeQepyZz18mPQEmtzHM5+VXtqcJq/gDW7c+A5PQ8peHbIk1/ dqXsedIybzbDaa0H1YQ4oMnr63qobVkRSqwqSGdAMhAXUL5mhwZB1eayDEn8oGWrnCzgnUw66iX9HjrY mvviKjkgNlL4DaBkPKdHgUTudm +uBWm6xokgKacPTy7YxQK1crbw6Brk4TK92Pafmii1s4MX+nXxhXU7s+ KGwgxeqp12QM3HrBPZhlGw2914wn6NQ8iW1s/L/ sCAi90e7ChDDJNyMTEJaWkNTTelWk7oGSZcXee9aFUbP6njS61l6y0Su8Z3RhDaFmTCkVyvgGteezz8x uazu1tYql +F8Y+MfoOstali55i8gAq1DS+ HuNQ3wX7sjlbLpFXooNQdToy0zE2aFEzEAwWAqXsFLSPXJ0xLYlI63Ey6XORz4ds2TsHCKc8DCcr4p6m / uEDAW3rm8oC8SmJWiuKpnzCHJZXjJhZw164l2Upo5O4uh63Oss7v1LMtZ3Yoq014ETOr9lX1j5dzltMn lZGrnTOVranM1PkQlRmpu6l4Y9kaLugoT /tyJtV0/tY1BA5oR5I0k0F3jQcaEL7HmBzj1pKjMWaUWYBALIljnJg/ IkGtKj7Y9d8zZBsn3vgtewgNP0D+ yzPUSJj1LZuwtSMde7psU8aiv4Tf759Bz7j8bat8ygRifiUp2267u8ob338a9RSbdMB5X5FBW8wBqkWj 8rQMzJhd2eZVfkcFIcBlb7a /O2xxeDl7S1iUwuMY3djoD3J4qwrtDK8i3vMoGKHWXgXSR3xNPVFgRR5V+DvHPjTxLLb+IPFr6h/ ffrdaT11jbjhk7AdEduxT6rDJJ8G7fUuD9EESM3kqSEhJRH8r9rJe0D1MSTYCjcqfy/ mroew3ElzxSEAle5V5JR2qFJzHxNaCwmE2bDylKiKgJAeOm1V42Tgc9Rbux7k12myshyh2ZGIbmrXye8 ICfGlqIakmFX13d57hho11pn0L55uPTF0Wgjo66nzY81x9Jn7Cu1f24jj4y935Hy7CGMCxft9pOOE6ve iS AkIT8QJrpfuWcH5a2Vf85FUIZ2BekNyFo5vnjrH5cdCpb5u6YcJWBdp0n16UGfw7SRzGK9wFJbIN8Fc9 XT8O /DDS/eG6O1I1ILoyl5/4jtYZ/G57sPIzfh00WTs3/ rPhpFsQrxy4BnWfm0SaIi8pMi6C0IDPXYfq4Pqe0Ozlo2p4ko4RlG1l2eXK5x4iu32D9KodFrIGDQ4yU rKvYZnNq8PmRKn /xfQWRx8o7swm4H1WKqP48XWVggBtpdrjl0emhhnJgOVgPleJC8ATyGBfgMyA9q+PPEXh/ jLKEbaFWb1cB6nrupSQlh4tkIEHvtGiV7dj9uMX3utsF1P42LK9Hz0tPrFuHnHQJWcKoSWLamTu6sdSS u3SdC0LrP + PtHzdYFO7JefgQN2P06M4gOnTzgkwzUDhKLwnOKLoRuGtg4FSyAwC5s7caJ7fKFu8Y0ImdfpTAOjBg66 gdvD7yLjjX584GTWQNdNys2eClKHz349c + FYvC45bIn4etuH0h4t5fFmBn8vAOO0aT0lbcvfaaaNvtJofIGqqVJpxmwdIWO6jiy3cDyUyVXvAfs4iz /vET1ZcG/T7rO/Y5PxduoBiJ2y3IWEzbE6ZU3kZxbU9iHpJ6ojJhdWBk91jegfjdf+LYdP/ PXYWIoINRmf5Cf0hrNpHNrZ5CcAtNdK+ hThKEmTyhPJ2mSWOJHW0SjS8l4F4Pjw7oF8fAr5n80W1UY9XLGxRObGYZTgXYQSinl5v4KH9nJL1LIZn omOr4jSlFptdJTKB3Q4t0eXwQvDBAWYGU7YzQgD86gkdLKyMawchwxIuxG2ycsMZwC5u3Yrox094lCmK Onct14ug2Ucc1EXEyY6eTGb6Vw0mxRrgY3Op21oTBA8GtcRBPrgsRoO +H0bV+gdU4FYd+O9gaOPHN4XO64JezL9SXbT+62wkoKnfZcxI7ExyBgG+ah09X23E4kjwr3T0ml1zV+ L8Wf0CZXLoyWK8JjWXzRdythr2onDhgjDbe0e7/ kLzc7y0Qdy6FcXAi8raebu5wLCn0blA2tKvMDZWfh6HKcSmVdDOkflHoWu0e9Izi6tsotWwpU6Ky+ KFowQzibtn1u0KvjDUmWptyimsuj7gZMqdapinzrrHe/ lnJeN9OuiUIgGGUyZIGzOgv11pECh6Ci7XSsooTSIriP9O7rpafvg5qbme1lKRB6CcD9hJfi9FCMXRoA ngB4R3k4cW97qb6uLyoEzMJhhtWQfCXn6p1gxggzbpblCfklcV6lT8I7UsaHP8gsB4kDCcM7rYQf4djk vLvpNj8tdO lXTu2EyvbeivO+ F3fV5L5k8xdpRJ19Cq8chZyrej6GzSacL7bFSbzwuVd0H3J1thWXA5Xx53JVxH4fcMHA+ ljW0M2jT0CnrYlRpFjJ+iN9q+rWXxRQzWP9Wll7pxAAR5kkfxL1WZJWOF82LcBvCx27i8KH/ SEla3J4ixehWEQdLtNaP2wvV0WA1SfBbcedRwqPPksJp+ s6o5KzrQoackf3upD2QY8aUDHj6AM9HgbY1h6kEJnvJYL6sTnu86nLCaxq0Vm0RiP6Wh0NcE8iZpE1Jo xmuCwsw1jCnPAnxW5w780x9R +Ip9fN4z0W+3hj6Wpw7gc+DONY9W67m5mFqSBklT1QBVLOHuvMjUJgy3nhLxrV0g2I940K2TPSK/ 9AEr75nu7JhR2nfkIUqRAaJ9n8GPTWm9oRHcmsdln21p0DibaNixDaJidpUBbgYoUzSk2igM2owX8Sne FgDG9fv4Vo0yl007w0rBgcXqU9a4bro92sQ5ruFqejsqZre2qZ0CI9C0iT4EdRTsOzpu1 /PwPDf4UuogHGlweSfpFI6mm+44tbxIy85ugBh4kAjL8bLtLGMX6nG54ey96wfbNvJrsiBfd0h+ 6k807P7qvt9+bX3+O0tOszr10uLqyk9TX42bqXRL0nZqrjjt+XmbjZts+ d1T6L99gqia4f1z2TMXjQ9Agee7OgYjjbSOWc9nQBS1QGxLkZKZNTZJ5GAZxCnqiTVboinf61Y140SLq omkcT3spz0VoCb5uDCuvbCr8FKcDCkv7QpNxFVcSGylra10qaj97c /vcwId0NeG3zVYF7Fto6iq+kKqhtHJ8h0URGbfQLQAGjfmPZBtQPCr+ VxLXfNBEOR9LkvFFwPZUrgUgkPKGy7dHPIOvHBS1uvBUCkcHiNlvoIEf/9Vs8kwG+ EWnUljjQkJJzOopqNdAGyjcpbLZg7cel0+ 9POhVRuKWqgkUJdDKXDbkPw8pw3UMkA3l6k5hH4grc7wpAnCREKs57ewOkk3hn4TazXd4poqOLObLX9R 2YGyK6MzrK72kIhQYxMUo8lu0nGnGLOtJMYkoB +ZcidmbJOYEvgC80eHcgBa16nsAfAQkaHxn7aXcw3CGyIRAI4ExX+ F2EaPAgZTDbAswBTpD911XCVg27Bz7UEbIp38LAiwGRDb9mZPc7cyyE0bE/v37eiyzsbCz2k2Vtiu/ kZFabaLhJroLPJPRadAFEbmCSMhTJiY2lW8SCncWL7QCdvp99/bm0pWfVqHEDuDEvXOfVx4Mgl2Hd0n/ uL6HcgXudfgz3878xKThRsNTyUQ2NJ2Dgud7tfagNrfIZ91fcS0be1KUuOKselR4A0Lo6c7AKZQljlkk 6OOr9bTwGqH191383t4keKpKYQ5pfcdwDtwq836p3Mx7j4fZTcg6c2KvwgEvkUuq9xGnUlyV4VofPMyb CsB5DOfadFhtj9vvIdJVwapzGiJrKHy7DpncsGEDas48gytdeAYhtZ + joeDvtiAERAWLAlMolpUNNkiXTXAdxMkIyZt3MZn8IiTEEXvFFeDq8V8LCsv8NXrTveJYyvVQCc94TC2 arpa / pe07DYnat2Mtuntr3iWd3MBDhfjFFpaVvoYCAHpLNTnt4edxQXxsgIzgpesj0IjzdvPWlWqTuVxNtwRy ORSIZTydoHzsJz1CIKrRjBRRn64z2D85a50jEaiEkNQe7WJTOBZXbGH9XJUCN4jMiQ9im / koCVY6ejEI3dnVA2f8skklFIHcyrLcQ2yyjrzP9Pnbq1xoRmOfk66nElFv8h9j8OOpZFZ6TSXNEV3pjl 9tG3 +MlMhzS0mqT3GSCWmY8kfxrj2wdGLtHXwRXPxJBxdQtKZVVy3rIh8SMbDY8Zhy+4GIJkQk+ JxMiPffX5UoWQNWCYz40oYe4WAUVS3JwlDYVQoH4POLeWjBIuVNeqJwFzetJk6g6vmRcKkqXIRiSImOD +LeWn3ZkPjPaN5G+qjneXJDvfn9c72Dh65VoLIkYmfvPKDjhcymYh/ onhTfL67AKycW3WWEcmzSHKXSbFAM0OvKEZrdR4OWtMaaAqX4njDgSMhvXyFHiRMYQ8CwlVPB6HgRAPO zlokXUW9Dn1RrZcrprPRAo6NQGnm5QrPWvKiYiuKCcQjb +I4fEgkP0aLCgLRfeu6QOZKIOOWDdVnAoh/Nyudy/DKuJbjcfB0IKj63/nOxBlar5oS7783Witvq+ vCem4H346HtQevKvVMgY7XXhaFKYDa8EXy1LoT6fcNwz5jEy6VsAMGyGKlPQNBhACSpUXzxFq1veFbXw xD7APVY4hd8mvRKFSXTSALsZUEND6U4URx5Xzqz0umd9gJSpvuJPTpy4emRqCeJwQh0DL1igaH11Dx9t N + zLfhhwCM31aF18GSmoqol0itj10JI8bx6QeVt7ghNu9EN2eoiHHOFPiMBjSUB8ZjTfKOZMPskhOxxvi9 jZhYuNGMQIhzOjcxl4kRJd3JQ +DK1eYqzOLHEoKtB3QXTbLzEIvHmzlxTl78OTQmEBJ9K2PPxEt1Jlec8r7K1XFjuppNg7r0/ l4QyYPnnFKbtULLeUZ07x9SmYgOhkt645HyHBr2zQUHRl2grlc/Jm8dwQszthc8+ lUkJdxIupiyaDbzSRNE3ffslEth8QaAnADW6BhEVB89chLLYKKgQAQJrUPeY4QLK7UZzEpUvjm/ N2pMNZcXAleOQS8REgPQjYigygpH6HJaUHVJQkQinHJDGZrNcT190enJOL1muZCAOx2xTpxM+ R7xakQU6MX7n8Wxn3K7CAZNXTf9ZumrWLom7yK6pFSaJ0LWM3KmucpoP2zN1ysrhvdjD74w5ocj2fXH5 oAWWvjASLQE8ZgB6k8a0TxmSnfOlFYZWPIpDw1zZfNNvuHreJmyezIf1AUw3rHkmLsXKou8s8WvR5xTy 2FVhgEVAbZNPVC8M0UAqZLL1tLHASLjXofMwhV5XWfjJfrXNzJJA1kbyu7lCNd72CCmO6Pa eDoje1K8+XeE+ cvge7mp84tHzsq08z947CULyjCqKkf191VZ5371l4HYOMwYvpDcnXkeRD2DDoBFa5xJFyYEfEPUKyx4d UT75WNXkticJPRASFHHGeLo8ghBHYAhiJmyytiiIGEfA9dT5FdVfOhc9gaNSWP4NWPw0pfl00BtYzlMz 5Wp9t4jVc0cuwmjfsVI5xdSEZUV MEWNxc+F5kvfp5FMi12avz54n0M9Ta36Pc36+6+T+17RXMPdy83YrgevKx2Q8H5ix3jKfG/ Mz06Km3Ts2jXUfEfxWuXn6CkdL06XtQGYBvKsgiXRg0yUt2h911kcBLVRTZduWFnvOfiHFH2uhKKyIE6 USl2w2CNXpX04mLAUQXDPMU9DsG8AXzPVcmHJmwD8p + U1hf8gSWyEyP3Vf9rsT44RqtH0FNAR2VB6mBWIsSj4gIgtED4IJL0rrUWkewcJtzlslfV7Z3ejDyUNqJ BygQctnQfiLowyWNWavgmP9ibc6q5FXktux84lk3BBzBwLP6 +jSDKGy46k4aoftUGK1za4ePexgo39rLBW57+ JKYWanPfWeO8jKTQyQsAjMZueQpQPq7z1LT3RQvACX2smvBBCus8ielbQORYc+ 7cYXkIyPVwKoEDosc7OcaZg6ScWVdOljaIJzeuWfEIMUScOpk79pCMtwfJ0B9EozuxajdxkFT99GPIO9 vlZSk7zV9D6M5sLDJJV8yiTzdUK0 /CgEDKF8nwX4u6630/ K6Lkvri6Q3M2U49Plve518PvbOE69y2XANzM2ZrXELqhpMVNatWcvKE1IHChJACmq35xWdRkSBXBORcV R7kvzXysPAgQ7jG / AHAOARQGqvE5KlmH0sCxr5sl55i7sra9izfuSIax8n2L4ny4CcTPJPGlUd0Zr8fRIMAsAnLkIOGo46Jm qcywGhae3hyM9anHBhMYediclptUJsMcvWab +AxovvEgrIpkQRjfZl3dp4cVy/ YoeGww2Lly2748hu0qD6wo0fv469Qay9zictlfU0ShcnAAsB6nY1hh071sGB6KGBPrvlBX0NMBHYA2MC w5aKLRbefKYIrc9iBkC0GI23KPJ /U4/QqEnYpdjq8fBe7A9xmnBQe6sj6l+ yDbVgdqJpUqYacr0NiCzYxDdalzkO7uUlybi1CQ4TcOUJ2yufN6wiWYuO4qWbnk6y4cgkvwujURREuN5 ZAYkkkj +Ci6yPfBypHBs1FiMAIH0jW8nHnKZVRR41TSK0bc/ WM36anV8byKMsDe78db2wGEg1p5g0zJvGiMxEWNQ6r7zuHTJpl9ki61XzES7jt7bGRaGPltZU07em2XR xM17moO3myKkJRZweSamspk5ZnDjAd7tx1LZcTWzkTMkU3G +cv7Y8e/W30Oaa5Gupxg/AAlGs/nKmB78nAXQzCpyLEKYQHNoQWFY547pd+mrsviyuQXFo1S64h/qMMc /m14J8d/3siT1X5Uydulr2q6ru4GbOxtwsac9z3zwWpLfNYmO6sAhj74BdtA0mNaexSZcllO6FCVKy1l +3cUvepgJ5qEm17F+ IGkuaejX4rdic7reiFPKSlWvO514QYv9vgaifB8ao89ucZtsYanLWRLWzI0r5Rse4imOkJM7uGx3+ wZEaWI+SvUDuXH862Kibj3SvSDHBMWaIHEOw5HuSoxTAjdbp5ax5pt6ob+wX6l2SL3e/ XW2MDQezeOvQPtsScrXxcpdvexdjJStEqdck5UPdypyXi22a+lm3q7Pwly77l23gH660hy/ qwPpodwNHVBPVXqbythjU4iJ+yoIHbePnhC3vzsLbX9bmr1GYH8KNVP0r/ gvjAyOQcqD71byPEzKncowuNc5T0C4OAUN/ kQ2osmVd8wU2EGeqtWLZUleXPmY8U30pgO3CtzfAzA8OfjFFzskrDQQZ5kfzHCJGXDL5KVwx1pqdbVfx HDgPLFJ5un +Gq8+ KnROYY8qxiQfeg5QX3bJmjIZgVjTriJbkn48rAz8iJ4jyf14bnfuVIOULXFAmt5yjxJpoBI5wkFNQjNr MYYyDcWUvgCIgLGS2 /ucsjQcXaIoOELI2mJDmTLNMQqYcfTzoueqhWdW0N5vvHYrdb6gmAF0qrpgV2izjqukHK9iQL4byua+ WGPD6sTIXE88TMWVJeHsbfjakn7wvpJErxqQDsrf0FdtBIGAoIWkZo4tjFzNDDIBUPlTmdIrsjrZXFeg 8Kkl9qkhg3kQ4FUYpzmR5EANRx4u2rtLa3hg47vaQ +K/Gdf29h3PvH10qH4Z3+k7xzal1ni3ZS3qvkHMVtIANUhiKYh9KShFxhSH3N186nBm7oRq3r3xEoW+ Gal6HcnPrsgDe8Bgbq1hjxeAjn9m5TsVlNjpm1bAmzrkkXWkyJBmdt+ Wv8PR4rDZClfzMPk6Yi3RFL00s4S73g4ZdQ0x04YiF3BFbS3QKH6TRiuI7pfgvpMhe0DmW6uOeNdS207 rzrvl41wuiIzUCg9fhF9 +XHAUJZx5k0NywahgefGlMNoIE/mDbEk5So8a+dlIlAuVk9eYystwG2j5MNVvpAepDqr/ wTSvaFsLct8mpqwUCNNdP/ w6pZFdYmZVdx4e0EeTF9g9r20Z2Auy4Rgaau5ixCeoxIASrVs1L5espHstpt76apKqq+ RY9OEbk2jKIsH3jqCPJNK6eHY4ZqK32Qw5HjwhrIEZbG5PoN96bH3m9IXA6Gr/q+ o08ndjRt1ojriliK7SJg7xNFx4kX3xny0k7PRVXMLaCwpefhIKEl8LUeM9j1eS2udGNFFYZNiCYqzq6q vDdB3xsvU1HWqGbIGITkWuj4Xgjb2ZtjH4gdVJ4flGZ0gZ32R4pf0m1k8DFnrI1drqsxGXOGlWS2j0LQ gKCk4zCPzxBFDZjleLllk /h0cdzurmgRnzm4+NK5VaUICyFU2NNeouukNaarFJfTVxOS1owbAFpebdI+ 5Sa2sd4gq7cBx1T19t3VUi7yS71uL5ljlDjKakKDOoGFg2ndQcvqEvhNqS9Y4lcxh0vDplZAMB4vrT/ jHxbfm+vLm9bT/AlhBsl837z3QrRa3Sa2xtpsD61IFHbIL9QC0z3eCD1aFho8lMu7I5O86T/ KzkKQcp4fahvdOG+ cvn3jZAxaEQyfQCiElwNJviCT7qlmtpGdqVoEV8A3zD2W1yZfi2kAp5zTLz8ctxkhm3Z3o4LL47kIRNO 0kWicz3OE +dkE50tyMqDgZhUlz7ZnxmOMf/YSkCmfZG2iuY2oUidETMJ5+Mmj4GLTBdO31Qtkk8mHp5T5e/ lZBffZgnAKOHOkROCcmXDySslJBXJsp0465VmWmhtzfqb+WEy88ZM+ dTV6CLoacrXmBp5j63e8aGGcpPALXL5ck3DtUvfiRYuNZBpSB4zw4i0boyh9A28Qin6yreeg4rrfpw59 yg41xbBx +lzaggdUEjpprTC/dlztHVhUPfqFzGPFzGOB3E4Ia/AIK6/Sr4WGHalwuK/ BljxoRogvU445PNdeh4DN80hIL9zKu9u42wst9ZebBhY8sowqICM+jXwD/4J1/Ql79TzP2X/QW2dsU5S /CVLN/i9+7K7l1G30H7DzOK1pNf7Ie+h+DB3PeFORu4v+NNX1/KmR8OBaFwnanzQc3U6F5hJRwR0Z+ D2uOaX6s8BYK6s6UXb1RkswQteqxoDfq34pfgYRAfZi3RYZGcz+ JxvQ6JVjcHG6zrriEqHiHsJNmK9tqaENCR1Za7r0NpuY3qQdNvVi8qnEMwhZAzT166WXbN3Vt6MTl7Fu yOsbLC14v /oNqcrqVzzzh35K1LYPqEJCSdcGdX7tcRUhiXJXMCBS9D+ A3jAlkc5axaa6PnLfqM91s3cZ0vdjVRgEl70kqkiTdHXQXaSR977b2RWVixpk9bM19ui7x5eJF+ Isy1fl3/6U9mfPt/QLpj7x4NKtW6voH/AIz/AA/erMkp1bj/TAce2G0u5L72C4HUkkq3I3U1yKeYll/ wjp83i/3CaDl1DWQxgB2f7HE2MTOc1V+JPhS1+ m7Q6UeB0Q8F31ORiU1FQt7DoxZeTjXKxm663P8LDmeN4ldX1Ju0Ys29n6m/ JCW6S3pSAl0ZC9F6D3jmtc+kB0k66Aq6ui+m6bOIq+vp3L7c4HnHhx3RyqUsT+ QMxhCbf5anfzlefszInCkqdKeCBpiWo6VTzcfjrroAsQKHQ9piR4UjFlUyZV5VUqA3jrZj862NaO4R+ IbHXrC+lhW6UnQj3549n7Cu393lBYeWerZ2cciA/DILezVbq+ nviez7ynUo8iTCAIhaEYE90Cr659SjiXVwChSE1Gp9GPXidTydZgM2cVnCB1FNciuxLlzTUESxXeB1LJ 6HbveS1eW36K8d +qpe3p879f030d/pMc6uymoobLnBlaIls8E3kQdCSW2NsPvPP0QC8bYBFY+ GgAxjf4PqODM44yNhvgMI0L62OlTu9jzNycMThoq6lm37Z30QCYw4f+ 99jiixfxol6CrWedHU6a72Jkno3t3wD6r7L/ rzmUm9CUaMDNsSgdPw4iKMoSuGpN57DPyhvsXbCcLviMJP0YjtjvusOIClaKnTNJaxZf15tXQm7ZKvmG 58531Fpu7sG3U5ozUYRpmqeNK8NRet2DZpsuRTJaFfKBUN37xFrZ16swBmW1ONkW2xdiY3z3t6FdxCV /ZhavHJHcPEhuYMQ+ZOXzOgVk8JXLH83Pi3hiU252vr9vstcu0tlhZ+k1jdW7AGHvMRYTk53+ jkuMxt4rOv9RhUioQOBNMvLjJVeL8qorYJh4R4qccbd0661sEnaohziFZwqAYXfPqWZ3mT2OKcQEE9xr 1XRFrmviuLE6WXZnrKUeAjzhlxY7t3z1KSTp6KXt1mBxbHzjHaVwtBU7kzOLv7f9zI3Vcyi4UMH88zg6 jOcYvg0eCi + Q0MjACbLkqOqUCBUsJHrdxVuPwt9hmzgkzqawYdzJZ7sPdzJxs3O5EhyXaltgJVwKCXPdoW4HnSaxKez 8DmIfnP0WZ / TBzpV2aK7lFpg62e9mdljbsaYph9Ei6v1zzcYwEmMsTDioyhKhghxlNsY60dnKL1bdT1ZoCwjaa50DTU 29 / akpj6icR1j6pYMUpKTSUP9up9kZMvooCXnxkrCsDmosA3MWS1aTPeu1PZdGl25f1h25g7m6owDzAegPZ j4AydHU6Xf8bij /I20r10v1cKS5Z2t+PnmZGSiY6yXpEfgGpbEJb7xeCCv+Li1+qtgzIrVnlzGv6nholCTpGJD1s4YfZV/ aiSzyMa+YYD2Mbjievjzhya3KrZy24SkJPY1icLZUeSDUrViuWawXqotK4sHHV/o1Ax0A5Xt/ 6uw8mfHiAmSkoB6Qy2wQi2qunw1RxriKanZ50AYdKD2dYECnI9ZYw13b8+ BAdBfuHQQrRu0hZiNlvyqsSPaSkZnvapXoEwBRGxkJqarK6BV/c8kaO/Whfg9chpui2zvz2r0/ L7dj4fWUyn7p49z0ZcSWUxCpnraT6dtQ1uVc2qmiQ4oVjGAlDw7ZsR8NcUvyRMjyII/wAKtxxlT2/ ezidDd3fZ3/XLEIwh2IwvvjTs8O+Xlnp5roLQ5FvS4M9SgWFyjGXMGXC+ 7JrI4CDo6Dqkt2aOla5u0hCIT6ndgW6tp2dXDGmPL1q4HImFb8u4nkEQJMpjRbLsOEcGz0AQYetKqgDI aM6nBej6dYsrI3kLaY4fZtdwWtCm8Uv35 /c8ugImvVyh88245/USNyY3I74MUxAkM0TrnOwLNz0etxRn20362183p6T7/ LPGRhyBYP1OwB2dlvvaXsLC21k7f7hiigO7+gd7SAiJF6s2n1jO6setkEMSmlQ/ eMbw0epqZxH9NczklRIl61zp1exGahG6jQNIT3fmyS+gaDZW+y7LmzsMYhIqUfCkNDOQAzxeEvciC+ wCdobQbhMWMU9bDr4BFKSWLulYVHw5lt8Xu0aNHN0bhJ5iJndSyiolvJqFLeJPnvCyBFKJVu7XJXcTsG IK9L +Gfxn8R/Nkptp20bGaopPCwRtaC+ hsJd7G7p9jL7HfQT4jVI990trjY0xRg9jIVEN7bHksF8gteYXwlxxiHCq6ktSLmmd9pJYoZ2es18b58p xbxz5z8bR5JVpUbCkI7MYFT6R2U4Wm6rc6aU4chy4wwl5 +B4pp3p1Ksymg4EzA7uRA0K8MI7gjHhkuOnkbaVzvL9Gx4/8AhOfE/y3U246pQN6j+H/ KGtxef4Xcs6Xki1f8c3g5z86rqcw+P3ZuFdclYxUbex72Ao3IJ7cV/nijaZjLPif4P9yB5dc0BUssP+ mH9DS5P8ewf3i8NNR/4Wn4esOvR/htC/x5P/C8n/Zw8D/Fvd62g9krJ680w67e8B0NaTSc+ xm3DcYz6DgHuZrVq3U6JsvX3L6zjjt3T0UXpINyyS4xNhrSf0k2MNyG0m/LbV/ Ons8T58Ir1fqOCpSP59BF4NiciWj3daj+hVZ9OyAd33kK+Cai6Z79NTa8Y9efJWM5ljDu5yD/ RKmmqB9cl76GYjo6kFYjtUvoEoec8oCZMzf+ Wn18OeVkvritYK6dwHMh5NwfWbcM5CxNdPnFVrZAOvJPihzOkIDiCOI1Q1vN4+ 54lDCJ8WeKiZKPfcaf9usx9hW2nD0sMMZ1CpX1ZQulIAUZE3l3OoH9oJouwfdPPbKMRmb4ljjGUwWErP cx6v4k5sW1RjUF4uj +TyD9cVkFkHFub42bsBBVa6gbcuAo8Ju54Y+ON4BUZ2NmlPtUDy0HyjLzFssyq/e5Hryvo4NfJVE+ QqwchK9U1YeCUPTnp+ sv5zYy3C6n96P2ditqyXsaqV7lZoe1wbDnMQ3q2wtPyOiAlfk1sdAvlqPs2ziImL4mhZ2ndj7JVio0W/ Tktd8n4jXGspc91Lm0U1Mk1DmL2Okw2P/J63NqBf4d4g5aEH8JfH/b9577PVxv1+MVpVlUddd0xfnqE/ gaGvCkiC5bTSzbq2We9yvO2+7Eegbz8C9j2U5w/WdtQB2N+HJKdJap2z2lF9MnF+ wijcLEpJbuixArcB7eaPsYGuIi8svZpS9feio6NF4h5a7rD4cwaG2v/oXxl37NyZGrC/Zv8D/ KQgHs3X1W+AjkfF5paKiYseg63jo8+CalS5xGH+ 9D497uPi2V4owFeaqFTwUhddenCfesg9jdabedQazvu+JN8Y1rwPgcbDysLm/ C0oL4PndIwJwG1epb901HMQcZlM5t5e/yUaTzMzL0m3JY3dvXI92DMU6R4pP5wyU41odn7ivC37LfZM/ 8E/v2w/BWtfsR+Ara2lzfwT2U0EcBA2i+MdT1/dLWPro2z0egv4ycWp/8w5BwoH8Ggo6NGq1Uigt/ FSdXnGr11z6MAtq0Pmu9oDzO1up/aupPptv0/aA3PoxkD4D5Yy0uRir1K6H8Tv/wbwv117P+PXX9c97a +PJ2Ci58+1/ gEihhnn6F2eOiMEoJv8Stie3bMRtOgsKED84bhfYgk8ifQJkFQ1cn3zF1YawbAcwKFgMSXzBW98ZoMMq rZ8gKXFJ01KizUpK7Sb8y1tSuAFj96kYU9LfruOLtjy60 /yf6HjDXCCgRfWTBtZsNLQH/p5oIaq845DeNm19DZjG97uBOd3tpDjmLThf7OD/ iz0KaIBDdnBX5ejLF1Irvg0loaf3n2if87ZkEIgMITbFuF8gqVsiQaJg1x/ V9kwnphLy4OZ2deZy9dptgwp6u5D+AZxxNxZf0b01elKymrgcezpVY1I9uzzVu/fVuNV9P1/ qdhqJjAtf+Veyyv3l24+7sJLvtBGPeKS5l8eysNpq/ 7axAE58inZkS2lJJFaUP3G5XuHzNhzs961NWb9gesCabjTc103m7+0aWRf02FmKxHn2A4n31v9K+ KssLbBtas3jbSFgCTRKy6z2EiQzrL2x8/Q/ Z0kptD5ottyOv6qPkX4vTpARknxbQS2qXe8gtaH49xLZmRdOOpx9Zcq0uw1LFaZ+ pUwFJrnSGQfrwfidLbumxykMVVJm6LQrqwn51DcnjrXnGyUTfBFBPJsRNdMatxDiTLMlZvPh495EYfub Jq3Q44Gt3mIvzudmoz /dx+DPHmsadq/eSCmuMHI4GyCW4iwClkf9xWkLR5qJ5ewPkejXTB8Ugt4S9oNBrJgHvvjO3KB4gl8/ Eqb52oGZEooC+xR+8R5NVTrzu8caWi4knei6C5RcK0h07wp0g7IfYjq39Y/C+rkWpVhf19wepiuU0o8/ DoE9hrLxsko1Ag9Lp4bizjiEczC21upKtHzujewuR/Q9/wTY+BvgvQxr/AMS/ TGbKqgefich2dzJ7QlgJ9z7BfN1r6JC/ButvBPqfxj+Knw/8L+FSL7iO15zwT0r+ FEbrb12J0MZblWUtd0t+Abvw/uXOfqC6YobQQ542x8xHzg6A81NraG/D/hDHlrQ5JxY/E/teO1EfGNYG /g6Y0Yryo1dEkdp+DjRz0h6gaik2Lcg2f0gndVgtP50X65Hn9/qSeIQAwElj1sJQioq7WwH+ Atp0fZQarSZhLaWWu2OCLWYPHiYi0TQfcB9AXCLTHHiGouzNEhDWO3GBRtiS9rAPmuAdRpXjNF5eYRpR m6LNh0MpplmmSygwT4cCOtVZq2X31sg5zPZVVaOiSGLv9z /Jnq+h31pZ2+qyWVxFYXl/k8SRmMC89tPREUzwRbA+ 7y5CCbYeEBzpBq9K2APPIhl8Qca0DQJyz5nOFhx67ibWwC65epY4wwVKvO0IWTJgUpZhk3C+ BQmbSwBFhES3NbzJ4cWgKsw8dQtjanaBdSE0axj2IAXRg56i3vBCMpOGOLCpiIjXtM6W3geuwzznL8gb E +6FZlWMFBvySVztSXDBxsiQvWPgoEaoiDjQhFjl9eeRIcbnq2c7J5v3ph4fS+ r4RsgI0aAGYwTMyE6yiiCF3O5uCsc8aov5dQ+t0Zsmud9mqw3Nmq5Sf+ PG35E2yzvcmd0EMffCZChbmQ5bM+s287sn9gnSAwSu0q/QHSXSZq8yDzgrWNAJs+ QzdTLa1kcT4zoQA9615FwccPgNyJx/qPm0geKIYxJbFYzlHRvA8XZDBBQMBlp6C6RtHdui+ PEHhDSdWvTo+fW2Yt3DnBtKj4GsK5BK8yEZQKbZ5NX2vyND0sRgCjn/NGyDZ931qAMvX4OLuR/ nGJjVm3mqZDFtFyCSjCUC2h5QGtJa8WjXUgvzXlCKWLHYog22gxbrxYhWgsx9PJvlckGxviuyeCesxzF yqbdyXu9V0UgUyILGaTw3vSAGs6lTmViAbIV04En4usV9Wlpua5 / Nn1AwaptY0CIBvIclPIl0OPgwAkM9Om0cfielR0dUE6h3qN3B5MHCvOY2MZcN2M1NdlGegVaH2F37DDe KtrGkxVIYaNlEvT4IEfcpzFTaaBG6QeJQUgPMMv0SA4pDg6SIFfHfb0KIgRiPBrNf9 / FfL1l3WrvD1NNWq347f96zc0xmuysPrm0DXHUzemgSVjYUGRUYbkr0JJjVXDxD1KD3pcFpSzswDFL9HT pCkrs4MKjvGHMIlQCaFiuCxyZxxhQR ++Dy5dFLhbP70kU1B01mvCGSK9iQumoylD9YY3FUcwu3zeWTYV0UciieGbi5x0ub3vsFBKPy8uoxNs5a +Wd6f3aqalZyvjTHtkZ8LRsxSKmth2MrXwEvju9oORYz82wlZ9x4NExGvYOJ5ObDhXuvAz2HAKlWvDM+ ed98RqVzoNkhuUn9YpxzmBBfcpT+EmZw3EmmrR7UTWOmf19pJhXNFERZAPhflHPb/ VvBJmuDg3rgTLWUVpm6M85qfw6yQJ53PDIzpKj1x3losxs6qt/ Wn97C52HZOLiB8AzAz0JSB49FBJ7LGGmLzM591tErZmL5smgpno7pCQw29WWFjVACG6vvmLkber2PcEs NTBMIUzXFWWJbDXSkcx9r6qWstlbxj91KyCYjJQkIIDLkRPFeuyzfWerHOveul /DgjSubtxbpKtgbDOrIaZEnZPItubgVaSuE0K+T83vfR/eyrKYeBcO5ECUp77OAv98t84+ 4NJPQFilcDZX2ruXvxCqT5QBnLZkF8KEcap33gi57rIrW2JpSw70R7CNAOSrNEmaQyxGkkFCjEnEnRWT 5JUbAv +7ucFdBmkO7Og4hOQgN+9i+ 8Uan0beVGKQz5YBq3GZCaJrFE0DQvanDUkYGpSpiFnV3JyBX7U9QYBXlbKGkVrnKyzh0wOy3pzv9QrkJ snql27CpsWqdkhVHX6oVK8x8puqO42v3Zicyw9LR6gW4WGOfbbMR2ICHAcQqVk3TPOXKxEgiuGjT LFgo/cKBilEbxM7h37HGjnVI3Qw+o6tUWLAYoquQG49j97j7adAx2DR7X/ ndLs8GaMd5hTfijMZUFY6d6uD4XfUwacADVGhKRdWsrAaNCui6ML5+ Y54ILG0cmR22p5LDCHKnUaLFmWTiUjFU9TGopYaEQulyqYjMsUfEmYYxswcg+ 3gdiK2VM8EERvtFfndcBnUvUlDCabY1IRibk3uhzwrtLSaA8JU3Bywac6YD5ltjM1pX8hYLPgfXPQRDx NZwSg +SWLGaaq6xpQoVSMHHHjxrhpGMt0qKcKCblwIXJB1PJRGwzBtPzhtZqXmWPAi0K1u0NQY+ 4quKMLGCLU4GyKtOGDL6GQNMNVSRvNXHIxaCXxl07D2qMnixSXXkKEjSdp689MqjnWpDyhwbCDE+ EzAEb5a49gGLc8eISI80M2Eh7oGarKbVAjWuLYMGIw6LR07FB0x/ ZS8p4TaeR1jPgs82bygxmfjTmxm0R3f57TbkQv97bH8kINDFsVJckgMLRmJjfw/Ch/ UakrmfZkPijy2OImdLA81OTZSzsleSxQ06OyfZKUQwXIseXNFvpGUCuc5PCHk9dpbboe3iorUPX0vDOv 9cGOgCId1DZRsuQkucAdgirvrA8QfKViQegoVVUOw8w +9WdSscksr+ju4hVTUauXmeIiDZbNACwUN+xDlRK3mq7BJKkNL9FAnQHy74rulx/ eJOHIyOt1z6KeUne6rcLVKWtbkwyxrx4zdsp+4imr0o7hy0hm8yFSxAGcxpAG/rDNzkAy5wwUf0QlLj/ pRcCcHPKMhl8seZFhBaAinbiwtKiKfTkuOb+z2H8oaiCMXTSsaLIsdhc/ h3IDSFEJCioiGMr6lozB9tH6h1SuB53cH1pn2c5WM6lu3evZMyqx1lvJo+0IRYLnrOfX6kE493MFB4Yb + lPzTn4EBVDzP7P1Xjbnc9v6oEQ1mwOaNJPjJHVcEuBUIoQmDKuFdkcTbjV8GwPmaKO47G1oywbMkKe6m Sdj1OvlzO8LtaJl5ppood3ls8xXqZ94hQ5L +WZwBoNjkllN8v0eR74q6tnvTGwGmAgT3cMXm8yEWiN9YHkQGxwHMmZZDri0fl97h+bVtkynXZrS8O+ QbfywrSGHzlaPYRJJumjYHzckv+9CH882E/ tPsSkelMzoHyWpOVLQNxPsUJjhQBwgF2pUKnmCPZxi2ZXSmkRudI34cB7BhC2zcTwn3mDyGd5S5hH5kn y1gXft5cNClfy9AQV3b0YL1AAKkxPaRU4NIxSTaUyxGz51u9 /OPL9AjrayagHJ+0k0+y738GdhxrDwgyjy9zoo7u/t/ ZYjEexlgJzzf0k1TJdzUv2WUjiP5zcP96b4UsBoo5ms2NMuSnK78KcdtGl5f1asc6yzS9r3rjm6iJRJl o7bhID1dZjpy0UCte29IXjngUVZOTEf8dIejL9xBWCXlb4Ii6Igogo8L4JpwgNfh7guaio9dvwB5J71x zev6elTrvy3cn AapjhusW7w+9YnvLmUKh3uc0+ v20Le3WGPWHESfOREYiwRCkyHQNYpIrWciUxyluzUhqEb2ZUvJJ0banGhAwZgva3tntFX/Rrfd3+ ukfOfNv8HIyq0rbos4OvE3QGbfC09m6Xv/XRnk+ rbD4eV0gGTWt5nzsiiHOr1gFoqENJI7gOJtf8sztCvOrTQbhp/ F7ORVIGl3lMKtJ7OrVf5j4B7c7zqA2r2dH1PH4t4E8dD+ fsogYvJ5FWM2lxB7lHkrJRVPU2yZZxFUQ61gNOyoheW4guo/KaR9RlewIh/ G40jytgedeWiqGmicMXwaTFgHlPE2voSNJ9tfTlo7jb4jN2k5H5Y2BM8M17zZLP4pJtDf8LC3E23UbK6 6pF9942rR29CH0Ga1foGghEfYiqonKC1qDfudHrt4mo3jXt0kx1WSb /Apud7EjsDqBtNhkxajWvGMcHB3ldmhn0240nd18sG1/i6/+HXie5s/Fj3/ oHmN5klEVEFD81oKjiVZIcCEpJwnyZRhdBSvhLPtuL5pgiZ2K1FLTAqmFezFwg/XKD0vhnD/ phZuhwKeBIN4hqbTcNDewAvXO9mnKWMKhzDjU99LqjFKrYJasViD24YMp4DQoz25M+ BfdHkTfMatdql7HnU7HGOZuFvoXhtIylK4s5BbIzteo6y0sdwowFaoJ1ayJgdnqsyWekhZp+ POr2sfZkrGz/ r21BAuLb6FEF8shKnCkhL5LU3ZLUSQDMtAGMTyb3PVtW368h4ux3LdzIo434sYMZjFeOLCl09usOv0hB HcDGbfICUqNmD6u2oyAsTnpF2PnwemEEA6zl5MJ2a0m +vPR1FjAXk+ GVyGodf2eeE7btKw8q3z1f1AU7T8DaxiQJ3ShQk4ceeN0ewPyb7UlQjKoW4uOiDXhcC65d8QuN0r2q2V ijS / DpoqAd4DmxmZs75BJY37aijAV7j4hle4tuTMbP7mGr8U2jewrsxqjWYoC7Ebe2Ulm2diraQDTdibqt0p p4mO5yxwmOU2ZYTXBiwLU2aUqjvgwShZTIjtwtBYVJQlb6W9cSu1YgE /hyG0jw+ 123NdAPqH6acm19Rm6Brxfa7shWUVtCZloxxCBlaJ2kdPNrh3eXNCh82vEuIT6NegO9ntl3JFpAV61Jv o2hnhylTetMWobSItymPxWXdpLCiqEVBXsdEpgAbjvCY5sg93oarXfncxbNfNmRIJRZIsCKrM98pgUq8 cvGUcXRtSpKebMCatPK8lz1mKvRjMvKv /yR/MftG7y4/z1RXl9mySx7LGb0MyIQNKE2cyIPKeF5oqhtCkFw6sspJz9mpiat0r9WEEkCEeQ/ mddjt8RjmNWQRRrkpVW1l/401u/mrBYOJS3SN2b7n6RpiMA0Fxh4ryj1UaxIrb65rJa2wiglo7c/ OLioOkq5C9j7ULEH3yrp2grEd7b5gq67j2kzXoygTKkNxDRP2OoA1uyLnvvCVZhjIFwoDkIHQ9e4yq8o 34P2Alxzd / WZQ0Ys0Ie44VTDCkXg0gb3IhisWz7f85o6kYh8CJcHCmv4DbTD3kn96mNqxUgQXHj5q1jocCoSPeTPpM cE5SdcO5hd3XhR3HqWGt70vtoVprzr + Wiy3Y8p6MbwGZD3y0anHeeRUS4bK4YwA7zncsBMmyQynQ2eGRXgGvvpJVq8tJk12VDQUxaoLHvgJ9F9s 98qE8XG9f + dLLWCcnV2BF4UuLFgTq0CDVfnCJ19BYFJJKMna1X37lv7Ky1uDKyMxoOysrTcGJJ61KtRVaiZRZ2rmF2 6RAG6WGfLAYaeGC5fuAnGU /x2lTXd5feaY0h/LTd+j5HuDitEWAmdqZBCl0f/uBJ5NorwOdN6j6dMTaVxCMigpXb+ shUNqVUlPnfpLx4uJjpvoTtS6VDJtI6g9ffP0nGRIJ+AoRPNY42bVTW7m8m/EfxB4J+Afz7cwAqYVb+ YzVi3fY0y6NgZVJqMihSq+d3dkfrcarFM1FhlNqfrQZ/qFzclW8+TPr8Sb4PRgfjxCl/ wgUAh1aM85zhfkfNsB1Nr2ynqUopwOM+eFjQP6tmOcAEhXGGcA1cA2LoIB117mmm+ LJ3ypuDeuH3se9NzXraGtSY5u6oJ4rN0ColhcNnlROb4BaIoJF6asvas5ysTtyWIUBtGp5d77MqrYlta 600VlfVJ +wn2HIp0XAplPjzXyu0h4ybb0aFo77rqAz8MLMu0QgrNGu3n2w22/QvDGu+ ElVm5zrDB0y2Cz4yMp4iS6lEpZhdbOM86jrehpmkR0YmONRgMCfc3650bmXRghsfpWd0pyofSw2260Bs Y9gvcod4uPu2sAwpzANh86Ha2KfUxXKoHmRzxvOkuGHKoq31tgu1uBW8ck91B / pqrS6AlXW8Wl97eawifxfchd9DcBGJoU1jbRsUxtScn2jJFdGHr4V2pO92ffuJNusos3gI0T6WM0Ai02 3QylQSof5lrwzLqrN6oc4Nvj0Rsh6z13bAPb5jovPo12xFVr0Yw67bP2o1 +94bQgf8xdVRUyg1LL2p3lM7CMAiAuhefffsjkQ80nYQVa/ az4GWKCcXhXaOqIg74HYhRpQxwZlfYLr4xuNnxtBP+aIglb96LEz0deQ+meOdCk1+AKbAsb04++ wKBzFpba5nqc9I1waYdxHuIk4WwvoJrZKCTeEFj3mQ5+XZJPeX4m/Tl5eLJvH6rYVU4g0MJLR+ 3yc0jl3ZTvXgHqx0j367PCAWzHPghllR8UhYIa56J66e1ESjzpQ0d2SlDUWEa5UD25pqI7nEKThs8jAV PkXsU4246Au1jhIPFul78MIC5qvvsRhdEvPlSRIl5HzWs08FlXcV1rW94Gyi5t2BMoxB80GEtyfoSpy4 EqHa9zBkIWOLqUI7kgBQ9LrQumkaiXod gcUn86RYoyYcnWF2Zlgi9S9f7wdt7A1SR7fvg7ZBsuvQsqWzQZAD7b9c5tDvPU9uothlyIa6OvGRyGDE mn6AW0gEGuJ +x91epHSeS1XCMAkfoBP62DzeYOuYbE4e92PlaGsDH9GZpVhTuLgd+ XzbPTzJT3E5CwOraMczHPfgOAGsLNXmfyGgRfIP1T8NrfIe6Du27r772q4XkgUWBWXufU/PmH/ sTfr2DEj78vEiP0o2MdIm/R+m9rh5vd7ElUH93kpa+TiUZ58bLXlA1OzIBWeIPoVQU4K+ 1rfXHYrWdu5NZMejtiDWh9XjvlWDrW0vWS92suknUud8sx3EVWLvhehzC2vNZAPslfplMWNXGlcVupah QIcOXXC2mp9yLkCGdUSbpQuZHekJW /l22RlGEqc4yDzhAcW+mrv/AFc/F/rRgc5LrVmgs/ wvXV49amcq1Lm9e44DJ5DQD5zsyxdTnXKka6VM3475WJjjYOcZBHyG6zumndEEmZKyMygF/ TIPssB6TCAhGy8KIpW2U7YK5pwm0DgFEW4dhALkLHKIVyLaDdJyFMzaqX0wXKlqUOWjjQGnqbEQUy4ZF rDDZkwAYqGhxD2ame9 /EOAOVl7vjBts5h0920gdyBlR0FBXE0eBezEDF3jlzAcT9uGyS9Su2AUeGl0VoSflbRFjOA2+ xRRZubNfCHpvbvaAkPzD85iHV6HCrm1pCcdIjjHMRAVqOkWtNalOZV0XxXliYSkxUg5+ jBkkPwpCY4wtqOdDEbqDQwohupOBpmDEAGGmaKVQ8dKOr9+w627aOvvuFNtrphGxQwqTQyh66/ tqimAE9xD7byfkFIzApTxKVmzLPdeCCwpyxGLp0CkN5wH3mueGRVlSWW38cKPwC+ Acp2G3iwCgzBgp34Zaw2qdzLjzhMdPnyDa4QUviClgxHst5YPFahsW8wiOcyqxNSMmZHWiFSGNQAQEuu TJD2IwJV1BAYeqAP1Xoy75vxL2C7rUyjU1AO1w9S7wjnlw7cSec76MtIIBPQUAMflJGEGIS8Whfk +XIycVrfbqNpdiR/ jFGPNGQRMxZPhPFIHJ60Z0OnwRDQ2WqJiFqmExebtODJKE16BnebzsWO8yAQj0BoJ1JVb6owVfWlymgC IeZrWiCMNoZgzOLCIXmElG0j3LvS64NaODRe0mXs1xvMj5bR1OGrVW74yr85G8h7lxc + U3ffCv9ggGLeEGIKOk7UlYfuGNyTVMjNaJWCIICD0fpppPTdKWALyXlFazlvZLXUlNohtJsDrpTwHvKX pF88rWT24hN6gbBUJXI2HKbyD /jgQBsUWmP9wyN0RaZKZZEJZ7dIgQGYJ6/ Qa8rnMtzzj9JxrfhB4uUcOgQ0NvcaUtzQRzpj2754r4BKqdhyfwxo8qzuwFez6Yz++ j2wOm54KL0mLr3nwSENZ8mVrKoiwzAhG2JhnqqPiJwxZM5XyC3pSilZ029Q2i/ wYMJ1XpQMaGwRfTMZAoNUYqq2DOFUPsmEdtEdlDFc0dR5Yqy0c8nVF7cOpbQlFMs7NaFGAUICnC25YgV flhPzq9jzLcN0hnLVQJfelc1PxrUKZuCXck4E32BbhxJcXLsljaRUOhxlvxqiqENxsWxLIq2y1v0Els +N/ E3OFNWNboJHUFDYPNsbIiHzFHU1YCaXwSoPobOeV1byd0Uq8VMEB6eW5Yd9zIuGaHEUP0gzNTLSIE2+ HttyvnWPxnuyDy6njdokHSUoxHRMIWGM9axgml6xTriwgbwTNFARQDcwFdrmil2VliB1lZC9MIEmVjHl vt /sZQhy1AbSXJ2n923/ 0Sr3QQpFF04s6eZCpU0NkdJOTE8DUvtrZCuLFZRiSNLWvjsde7oSh5jmfDqYlzb0udcRRAUVCF78aCXQ X9wqReKxBnGL1Vyx5pTvaJ40lUYvFQDeRGVChaVixQJFguI7GJkihqM6BOLsbQMZzgWbDubbFhHGHlPn GDAG9P7NzVcic4nYDStR9qs51i 2+z5b20ph3cIrRY4iEv+u1Jc1omwpg20g9nqqM0u1TghswFROM9qdMkmXaiLNR92rcvoJmakKqiyJp+ CCjMec+E6N3tBzt6cwQeVxghcpcds+ EvSkCiZOBoK4kbGG0EWe2HXrisrjs5KuTDbFpZLyDQBGmLDMHxdzzygPQMjbg8wQTwbQ5a8Jh+ Bbl1VMH/LOa7PhH5daZnDMDWGoSgtvUlVnSS4grzCRjcuay9cR6N9j4g9DeZdF0SIAW1hpm+ Q7ZBz0haf1PVnv26g41061IruhlzeVN6V7DGYiTLlb6xbcdpF0NWMFuEaPDm3cNmIUpJHoYZ/ ftiVmHCvDWnzS16oe6q5a1Fq49wpAolf0rEwrms4ivrrHgCrdz814f3yMLAgIs2KSWncYX1gxxUrW6WM UuxVRTUXubU2yrB8GcIu9u6 +9sebls52mqtKsDSyLDBIP5fIDDUzrjHYfHPj6ALaODm3v5y2qgMBUfrqlUku/ Nk2VXpNUQYBbamhdo1vi+Ul0jiPHzy7VKrSwJvwEiSttVwOg705FngNMHELGBMP/ xPlC6fKwNVpA050EKsdAp1OVmITsgAJu1pUTwjeNSDtdB+ 55oKXHVtX4dnXYfrzMAnaZSZAtOsMoCsqV8QzVHpCqiK2+tT+ eLxLxqfVQc1REkXSyOqsJwSQnhSwUpmz4ooqZCAb8gnbi19jll80+IBNxTF9QgLA2599jO50uekA3+ 7g6PehprW2jroyHf+oD4JewVIfnvfGBPjkXZ3BBXNrxQ/0W9JSSSvu/UHAupFH3yPrN+ Ierx7D7pVNC5B3v5iIC1qqcBZZI2FCaZJJZDlOVd3RzNeGFQS6ZEPVHzyKFDrDzEYCn0D6sEME7ggnhP f34FRJInoCQhq4hgOn93P /AIe1u+ehjW7OsWeGvvb0FwxioQsT/ndozH4aHDg6pdcMiSM2GOT1cPEIW3lmtbC5+ REb14FNQSYpFMhZCNB+dJ7jce9THfx6ZkqSgBcm1eEbPHAEUXnzAkmZEACBHdJOvJ/JYO/ 1DQDazlwbMY1bLxHbpBKneoQrSsh3bkH9bbbDJJPN2C3rNVfEE7aLDFjztaOXAfnsUQDNHmOy/ vWJGBZTvN11jGywop7zo9Xp4b019IvOU96LpU2uBJBxf5W2fe8Dmhd6CfhFQjVcHdGLm+ FoW7VibXrM4wfJCtMtdgiuB9gkn6zmYmhsaf4GBL5lGQ+ uJifZX66bWlsrc38diJe8gg7zOpKJL8XQkBcwfkwRK0Er4uo12OlwvnenswFDrKRlfVwkDp7W0hg3lAl 2aQaBrDARrePqWnRan /TrnYS4Tiky1bSH3pgZ0I1np8Ea3lXpUixZo02k02vlFLrkYSui+ yurgSG83aTVNBfmzwaFXKGcgxnk3HbY1iBekPdqxe8Wu5t+ xRrtAlp5OKm4A0KBxM7G8kh80pnAD3NrBHoShRFBh77idgEvhynIAW5MSwcYgH5Hqcz+ XiUovkNyDuonIfzQbBjyt9VNg8YfHtw7v5GYDv3QCALZ5yevv3yfVXtgHi7UX8S3cdHBSzlSbCE86+ EPna23jSTgOzlroylhzGwv6aUB2zdld1+mPIT88sTysy6oiApAnjrXcDB/Zru7V/ mMi8Fb0nCjqWYTtrEwNmR4NgXqyPXXucChBlBCXDLyIJFbYASHjG73GDbFx5BEla7al+ b43h50mGcknhxdNsUTSrVxLwJ7a4uVp2XmeSaE3jKN/Z4/Q0cM0VpOdxbbvi4yh/ g4RGlepoWubFE6IZigp0zGkpNt9O9lFxol94AOzfY8BnbqbhvdRucccFEAgJiI1KDWaKpk2Ip6g61i2H 5oxxzkJrCWLopz1crLfzg76tLVMCxc1CYq2lh0FeLzGHj4rWpNbnMJr1LKtJG7971ZyZlX6cRB2wQ8s8 ktozpdWVBDNqO5jnahnzNs3hISla3QTctz2PuMnB8YkdeP /zc69ZjUyS7ODCx4cypUwQlw6sl0fESC3BRwzCmYJdq9TBNzN2jLbbq/ g3IHKh9l4Y7oz4gh715oDatZ4JkEdqjE7dbivwIIZgZCECLoVnntKfZyvw6CHkLXJZpX2pOtkAIswJBY wJuR994YdWlFSRheLGcQR3FZ572P5q1WKl1FPbNGyIVFXKfwxcOHrBSwYWwHpIbcRv2asjQMU6AYKhVm Ddr2T /m3+Hztca51sNiqpPY5nP3q4TIpHSyUuK0MXIG4joZUJvqO0lBAJPWyI7TZCb83gnf8o+ N9NLoOakQp5rCHQHQF8grDRbAWN9eMPjNEDHoUemXNuMrDn+ 2Y6GyGzu700JjuPBZUUW0jRRURbrxxTuio8Er1YvFmDtc5+2OvCLWB06grCPfJcr0V+ MDPESJ81oSlG1aK9npYBPGqXIVjV+SsZjDL9JjVCWdmAWIlSxaajN8dXHlkxR+/ Z5GQspDzbqKZ3lafpcH0+ m2NTqvSgbnae0EaPdAb7i3vXMJEEkz1N7wXcwS6bgP8XyQUa7C1D3LS4S14FbSu6lXKQwUm94oQLwrlZ 1ezKzxp8RbB +UcGt3we4g6FzPDSJDsIPM5HHYYCFRV5vzzUjgq/ PZ3ag2eU6TS9ZseNFvRdPQerc43r379FALPY3BbAHBPWfHKqGSBYUmlMJXF7GKWNdkH1uf0UDuvG1ddv pkpQAFdDowx4HU8lC0jizQFRSK +NtXKe0Zx67UVoFo5KSngQIxltPcps15Bfxu/qwWqfKh1xhYKvCozjvuzCFYvtbzpn18eB6K8Q1B+Pb/ wRpOn/VVtDadh9x405KL9cu1XV6Z24fUd5WrZRoGrxqnaSo9ZjwAV5yJnJPjCKVyoVrTojld196gh5/ Pcwn8Xsxs+ yxzdeT4crtAdJOyZW6pTOqUQaaYyMYIOFkVvJL0lOAoUvN54UNIDTD9u5y7GLeZZEmJzXsTE27GJ6ST3 e3K48o9vwLH6X44dn8xkMBaIrnp8va5wny26KYIrUOq70N0sSdYzGyXjBq8bcnUe29n5ARtSk2hIWSw3 ylblbeNbGRO4RRlPdH8QM8nYrHb2ZFUOxVku8LatQKIcCjlwl +4uRiBxOweW7IW/ qAUCqzzC4QteenELBSLyXoLfJ9N9oimRBZXpLPL7cJuQXQAUM9fPvQhqCDAKM9m3CiLSUTVMoXKbfeA9 dPB8oWsGTnmdqHRVw8B3gQbIEaI6dontUtSltptBphxlXwzXeVdsiRPMylH6kRnqh62M /vetjwlvfXD5upvlb8v5aPnUEA4jPzxTmogAQJH5NNfOxfECH5hea0OfyqD5JlWuKq50FkwzgWy9yyjz +h4S0spQM3TyAdV7H+VQeU1kvG+ ixFzX91vryBSfwF0Nsf78RZHXVtKzEH7s21AV6MpZqiJz04acxBD8F47Jxdl92m90+/ q0Oybn3Qj2YW6PUhz4sy1ea/eM6AMoJ30wgI6MNSdeC77goIjbPsNPptDUFTywR/WEwlDYcyh5B/ SvI2I1yC520jLQvn2a2Zp8EgIlFmw1wJS9QxDJVJl8qxKNcC+Lt5YDAEs/ syvAsflYth3uvxoyQL4xeKErrcyw12JAs/tNSf5e+MvgjwNe/ BR2niu51pFKvVNHaatR6IeREnnITM3v7Ctb6jlvIFtdLT/ xTyD6mwaBaikNUoFMRbkxzg0Brqhdjh5Da5tZ8BNZwsjUhfwsszgwLYT22775zC7yo7BbmPYrzoDr7FG zMvFwNBPuLcEmkUiCIHJtUfCrTmVNjea9iXnEAhg8R3pf /LOdZ5kdf5e+C1ew0rlvp0y7b3reSxD0E+Ih1ppF0UeU9yI14hibp2e7SsZ7Qp9yfn6qjt4FtapHz+ n6NmZ53v5z9GcQrQz38MH7CN/QA2WBL3H+Tfx4LrOMS9R9Nnv8t9Bp/ WCd8ps6ZIx5uY9EbwL8xp9UnRRq/b+veE/BXhf4r+EtGuG1/qF9S9CUrwnqJm56x9Hx8swt+ GtEZvEFuk0/5LvdwpMfG0M/ YpQmaogim0tk3MVyQp6JLGWshuMQpWF5ehop5zevj3rduxwjemr1ue0Ztd4PTGnu7eWg9x7u+ VCsaWbTp3w4uuTumvSujat5qetjikoQfUQChWc16Tr8Rd80N1JxbD348PQ70gu1NkX7bpLamw39Uvecf 9N03rKdWaLy3iVNq9WvIMI4WElstg00mL5 +eaChpjx5oNYWT9ifc2xbQpgGwhk8aTXAW/lVLCnqKhc7ddBThnw/ruxPAvJSnHEYl6UMJMyZ/ eI2SlV0JGtY1O635us5+P4b+Kb/WA1so55q5Z90/186koH1K0wR51j+ rD8Zb2NfL7CDMLcbdb1l0trcCwgd+xehWfTq3a6q4s/ge6sup6fLei0o+ SSsmnCkqOpc8xRFaRmahCF5niENFo6XB/AJ1q630ul02F/bbe7yU8fHd5q8zcePi63GJK+bkFMhx6UxD /NMvL0lacYkB296qk9W+P4t0zfP8o7oC4Z6KYjn+UgIH1gI+ KTK6ZvixlZchuRqhgHvxEqEwvfcLxYjdeyw5ueJ9mdmlcL2dRkn77hfgizUzO0oNKqEy3eluobsrAOsZ 3laWeZ / 5weaHl8IEpLtXZb2ed8sGIDxVTFFdaZLerognavQ2KxtvahpzvRD6lTy1Bc5ysL46Y4COYRHi4PtqpiJ KCchclVPOy4pr2ulMR4ARwXw /gbTbzRPCes+VgDh2U8ZYJ8ZT9BLh6QhdPknjGTd5QP+1TxpbyJF+0jBAXZVw4x/ FuS1ljC8VrNq3Y4dVMSoMyihMXm5I8igWFGvH9kzzNApuPlgldydcBcmWLx/J633VXS/ UEqmaSnIrGcyxWlohOFEfPvAoFGWBwkZbzVxKmxXatybh8QggSbimwr6CUwJgTyQ6X8YohuVtnAUy8c+ CVwLcmdg0F/XmvP7IRC27NjD7/wCK/gvwrqPxH+Bgny6j5gvDTsB2Ld8H3P3Lo/wVKu6YS9x+H+ koLwOou2VOE4y/wz8P/CHgXXdVPie7+I+u/Cb4b/SZ8CUJ0gXMKSQlf7+ UFSjEV5vs1lae73zDhp7StPN/cymLTaOkaWKyevXAGN0NUsKoe6GyvKb0iWZuy690xPfY0eY5S+M/ hh4x8S/Osn9WAtRxSpt1J2X5LcACZufcoYzo+Qex56JJ02kKK2id/qWqaO1/ D8zTrzCKy8Q2h2xyTFQxf768zavC7itXsmxwfC1TSsuYfMXpjUnOIS2tBIpOCvuj3HKQe5pqY3yKbl6P 5S7Y0BiG1p4Uq + uAPkEwPgkJR9w3cVqxqfBnHZwKnR38gZcSrPlNc4RVZCl4idmDSq2TGjitp0WlFIKHlOeviHcEiIHYFq 2jJb8sghyLAKg1ozs /km+ 2nFxZQuAlCSjBXK7ce2ocjuw4xjeSUveG4cYn16E5kw4DDFuTXO7ggi49WZR1iWOsLEZf3BYRqmYVQXL RKU +0KVTDzHu9r9yDRncMjv2cDwgXwzLxPyLOzNKjraD5FahJRYZ4iqCOWGyO++DQHjNJ5fvRS54tM7kfwg + uUcKlyCDR6oVhsWQ6iIz1R2mI5hTWYsKremZTQGxnkjqqH25CuysUFlTOfCRF4l2M79yGWsOreHqMKtC NkyH2yC90QxzOOZAMhEPTVrS +MUhiPD8eMc6A5CxEAlbrD/ M1puvZjIej715iAWd4ZcCxFY4Lyi4UU2QnUlGsH9OiiVWWKM3mj3WT5fCPaQUzLElGQpOntrfi5OXGAX 0b /VgSN8/ J3lFkWjzFWEWpRueqEJlbCCNWdSxgd4TliqXTxpk4x7e185sOg5sEOmJeFOzM8MoiH6KPg0s0HWtiURL IwvGPOVLuYPIqrXohQwtoi5Q5F +HqRYj2ma28PxWdcJtx5mr3YTBmW28zVHh7n6l3r6N/mcI6O2qvl1kaYNbB+iy7jyM58h7FS+ nZ5slbtqs/S+p0iKfNIcPmvVy3HptNN5w6u+q3Oa+GitttttRkldbHYjq2sESQBE+ oEPyh7hyKBwyL8OJOiy+ QaCM5VpUXZ7V0g4t9S925kR7v7pEB8Zx5HYxs4mf2GIxw7LePu8cylDxa45IMgFFyjhZkljaaJtXTGB8 EZ09uo8MIPMtrOinhg1LOn /s42S9EcVp9Um/UrXTdVzrmt+ UWwc00TLYC0IEbGc6CZLEKetMI1jmuItQrHwx1G8CgK5vA2l3Pjd8P6RpEzc+EnnRNzxg859I9+HWmX+ vcG7cL4Gi94QAzS7T6XNEm9/eabYLNoU+m7g7z8FoDvCc4/FUBy5y1AyWJl0+ 55wGMFJt45V41UTc4yK4t5bT8vqq+uur+9XfbNJ8BfxttB8AFx4fbmyez2D9E8yyTiyO0xB/Hfxta+ H6cjxIB+HvFoiBz4TnnjuJrlqzAb+GYG19gi9JUObscaY2Bt/4d+ hOuaskF0oxzBFFN5U0xvYPvbsUemedNQMFIcplsAzmfHXcOLFdfAMNcK0NcY13gNuD40+SYe1ZRi6/ YtC9mszjrP6mwHeQbStN5RZ3Efc5mnA7g9Yj+mQ297uSdCE0qU8U0w35uAQcQiWnAgslwdjv/bHT9P0/ SUCy6CkQGfq8hmuQcVWVEW0hbzMKorbBF6J4FKctFj70P6Or+ 82bkj2whd6q7h890Use1uxq9MulamcWIQoWekIRmoiE16XF2/flG+7w6Qsq6yabcbkz8gnj2Q6KRpa+ ufC+uR6Zc+ZBLHA84ew2jc4Wi6d2qmUubjG2+861l1Fk4hQaD7y0LgoJd/ kvyW0F6ZyU7I8XUx1jhdV9Nzt7gjJZbdxCuO2R60b7him4CGrJicYNJ66kiDxwx0lBsq9i88S3MT9PTu CCT6xOqrzDRNTeI2IkZLM7rAWdFE5ZoBK +wKphIzVm7Dj6wZ4rzrqFFkZSLsPNTX3h4spHs1NrNBG5QRu1dMJoofV52R3YqvoUXy4n8+ 1g1kETNajZNJpAbQtBsWGikqBmolZbQ5dMhAaUcVFVh29gXmjF3Gn+ 72cnKJYMTUlUVhzcZR8UH5H2TEP+5G3rIVth6IuxzP9z+nXrf06S+J3i/ cYRmtfGm314FtLNj4rlZwjD82H2eJoIgzz2s4P/ Lr1vNq2kuJVslJIlWjGR93uVAH2f3xqYl5w0Z1XoXZLTuR+KNz4x+ YnhG73fpD7GsJCf2A8H3kn9rPe2E+W6D87h9MGE3xPiGa8467a9c5FsUj4bc+4/4OsC3TEbGfj8uV/ APaht1N0cm16L2F/vV5SrmR+5J850R9Ge+1+Ljv86RkI8/8Sus8cX+CXOn+OfDt/pWh/ TI11oUGFBBpS19/bVN0qVHf29zFZoPsRC0/gWF8w6dhc/D+t+hzlHvwFHRrC9AFRmIO0h+16x/ yx8kwqB35ZoN1vtybPp2347XTyRH8+ yWVEkk7UsEHx2Chm95lm3IQ5tgDqg0pNKj1aeKkTt3MciFVqBANZuqe14PegWjE99e7yH+ e9NgTBFtCjzysW0HIUFnv1vH0Hp04+HwAbAO5Aq0dazvctQMSxu1bjXlungZcsyo6V/Gf7Q/xD+Mfxs+ KT++KyrT6IPhO/FOveGPCOg+ OoWPus6jTcUZwZtg1YBsSUxypEkVgmPs4mTtgg9zk54J4e1H6Qrxwlmk1Fm19hL49l/EW/vok9A5iahi /mtbun3uj7I/oanOmdwEy8R03Wnr5vvcFkBBUN+ K2bOsk6KgdwDZUk1LxbaDHHQ8EWdgTBqKnFkaZcCEp7Rgem+NeZUgvQTMtzIs5yxcliflw+ VQWMgK8R4Io7hW5g4iPxNhUxE6ojeI5AcrrNxIn0smvNaW2yneiwxLWZj5SkDMn1h8tp6A0vhRYzZfs6 ACxyVREza3nX0rxIGVsAXRU3TmURo750DRdy1PsMzNTzhiXq6WASvLezsp11g8tpJaZiEaFJ4tprfnrX ej6z6Jj5zp2YXhenqKfFXEaejIMfRDiNbjkdICJUimUj7OLIw8Q3QxR9b4zbQnS2q5hwei0bobxbXBVf vErayY3jfiF9 8UTpsd3zTTUPQqOD/VcYEXLfDMhD7ADy2+B3hP4H+Cv+Fo/G35lcO4t6jxJdz2U2XrAG6x+ RZs2MhqM0H1lEepT8+J/qCpM4SxWRujAvv0b+f9k9if3E0H/D1tG+ MfkIyVRz7457cuLnS5Zd6KjbBumu+GtBH2YeVf8azp5ON9tursl/DHRdF+ CvzcF8OuFPlGIp24hWQ8gCr/a9cu27e9N55K0am7Tztiue0r+ZxV8MXG6y2Nn6wtbW8hEy/ Ov2fbXkF9oEPmHUU/A9zr72N+RpI7tChZNuVluO1Ij/C5e4C8s5RkCrp7aoe+uC5F3xJtHo1nRi/ Xekf5J0hz1Au6Tc0dkC1P7/B8eIwh7oVEEp6HWFjLvvAiDhF9g6BFuylTOlnjhgMC8T+ x3Hm4sJBvu6iO2gVo5HHKaOOFlNc9AU6fIScM3ZiHQgLpK4SmXJpvMRKIGRiNymKwhT+kP2K/ gCr4w5WgfMinIkpIJpB341zp9S7scHN9V9iYH4sgGSsyIT8U7sPFV1Fti0FMKK3v0P9qznj8yX6WeE7e +5Y5ti1F/EO700+KD8a/hlqb/Gj/tA95931ClsxXu+EUk1C0+ CHs9ybKlj7iLu7qdWqsBN8Ka9Nl8k1R3c4cQcZz8fzimnbM73os5F/FR3KZyf0IuBZq/iH4i/C79o+0u /n4vkad5gFxMlxJu/v99p6jW/GGm+UsZ9q7J5l8D+Mzy0ABU8QNLm+JL2+ 3LNiXFcX6n9h0WDqOSqeTcX6bc/2qs6PfL/uaY4GatSiYfuM/D/AIa+BYcna3wPvFxfbdt37s0FoLqjC +yZfibrPh/Z9CS2yq2Btbzwp00k+Gr/OQvOh8NSmtoOZ3sL7zzHF0umhp2Ft9+oqx2OwpYB+SMpTqRo+ 4i6mdp28IxTewF0ICz72MjxmqZ5EFwksn2GXm9tthNlPZb+EykdRtsPf8D4AK6kBfYyThMpKOS+ Mo1ldEPuHAvDIjhtW85NdXlh7+2w+kiDzMg1xJTsM6P/JMRqR0+ IK7ozZ3zStSE9wwXzXbaI4BBBFEN4gAfEWUkOI0HHgV2rzLjqmGjksAJh4RKOuxo1uZW2E7QR8n+ 6XDsieoKHJ2gLyi5Ll/iK/ ZTyw3gLGI4zy14gnlb30MRE0YXSV1jUuse5jm7nm1Cas8W7GWR1gKWwnUlgbNSpwF9fciydHFSYU/ HwVkh0zABRXk/ qDNyWReJKwbLxDB4G18VKohHsZtx5nwXaJ47xZOU93y3NolGL4zt2uhRilCkYr9I09QJSW+ 5uVMreSdN9x8Q37TBPUNREd7tUIDzO4vz/UyGHSq5lJGo5yY7tL70PBlGLRNoTY7LNsvtCzpTmYahxH/ tclx9g+2+HSjL+ 9q23QIOuiOcOK93aIfN4e5cqFoLXoX4OROB9KxwTZd5OGnGcfLjjnC0XVFdDO982k6meuhfzgHFui+ 2FsqkXRpzMx1sSJrVVftTo9YtiqaVPNomIsJu8tleNQHTEAQCLphbxXpTeKaKNlu1Qrrivds4X0xG1mc QpYm8cCYpvuMG8fFYlEnog16zscMwGW63A8NobsbRPgJEk4zqweBJCqQoDNzYrnBEZs3QwtFwpoDilwh 21Sg77kTz07FVXYGwkcDXMhEYaMNKm7Q87Z0LC8btH5gHjMUZq4CP4qeGENeBvnzZsi6UUminqqzEJeO dkotK +4h99Mj12970xH/T36tpxG5pjk120A2wySKVKDPQAfLWtXDS3S/ BqFO95TkE9iTJiAwUOpX3AkA04piHWKAAFKPB1ODiD8vVX8zbZKzRRBvDdHlmZPAzLJJQ8vfoW0WeExd af6GVY0W6 /80EmmhottivkDS9DN485myv6mQWR0vMjh+t772f3/ mxnL8eZGgh8WrfyFZJXMUWRvozbVPGkvYCakEXIwk4aSaeM0sLyVYndKVZYSXwMuwT8RXLa5ybCAxHBL nIb4ye9dqwBopKIMmgIOWuZ1aVlEhPnuYQUxt2QCbCeYBgJZE7SZWbVO9k43ljcbfKdGyE4Z7LYysRV3 enb / svsKrHgxHSv6yT9YEE5KKJfqngWrZCXzKtdbpQAdqzmj3Y6GSu7eOzKyeHKfzwwiVW6iqmbBJkkr3WHi TXRLjLvkLczRjXcKIuFRO7Z5nRSCM582mg1kZiL4 /GNY7qqOwhkvhpF13iSE+vgkuHF5oYTAxpLpedhcuVHPdQ1+d937Dz57+f+ fdHmD3Vo6ZhG0p9yFAdQxN3vjw6j7KQBbKnxs8RgYG2xamCtuNPe9xGSjb0RBmvvdKk8vdYR9e2iA56I T3C79NsIDmoENKa +IMXwmCYDV1oYFKJtRMhQDMWZ6ldKibxLpDDKzvsSfA+ 75skvoNJEZS7oJDVmpcwmzu6aIvL2zrZMwUGbIihmnkZ3y3HCM05ZjGHIZMBBGfWDmUqyulR7zw6+iXr /HZIwnSPwB2x26RVrobx4K3w+60/Fu/ Y6780VjEcdVwqryqkEOLHZWTZMWpbk8RFBHjsZauZMONoG7YYNtri8w86Z3fnec6iV4bzY4HGosWQx28 rwiuML24rNq724HILSKXxepJeCZdaO4J5h3ZFCMDG6aBjNSIRI7lbTI2rNg +aSSzIdw+8/7uvYfCFxb+ JiAb9GocTPEqfU58jzU2mwseJHfUnLF7gVVJNhPFyMQ0klR8DulTG1ei9JGxf+/k+ 3odaHpoWhdGpOrrxF61RmSfzpO4Zad4pxv32TV6VM2J53dT3gM2x4peeyV3iFH0r1bGN6hQSK4a1jcXA EYolem3q4W +kdKs/Dburrv75jcZ75COdW3qhKvW/nyNeBpEyFTNgem27dMEtDGp8qcWp9u8+ kFxbSgdSvgOk9okbqokeMXllj46hXCo2XZQvw4kG5gE19MJjvim077P49rB0u7KamBa1rFqJzZRbxRAI chERQd8yMPzVTe1MHOfvQc8nYg1ztEyPsU76FFbuTcv0nu2x1T2rVYt7vUAlSBTZIdfRa8P6oceJb8hu lsi3haq4b40ybs6b91WLnvjjH444j +HsoX5lufjEImrnWkJNUSjRENLQublnvM+Rq6Y6tagvlhmkN/ y9cpMyuwI7Y5DRFPUdtfuxuSJrXFeCKTeFWIkbYcOAfC16mtAeoLwgwUe16ulzwvsl2HHadKXZVwQtwT f7VISWsjDjT1pUnZPV7vev2d1dal3 +H/ DAOE9NebqCQ6R4ZshOxS6hMMIbGdyNxbNqRCWGSOoQYB1m58gGr92X6m8QAIKZtoQF2SPcGrq7nVdO18 TWllfdHS +HvDOuHXrDUDeWWq2+fPsc9vc4sVIRyTTTs3vUeU+TZhEfGcy7zPr8BkOSkEwc2jQsYF/ rv6p54rfdh1mYtnAdHq667VAY/ wpnF40GZKndvWBXOB9IwqwKtAgR7gZ9o1EKWS7AheYp6OdpBu9rsovDYLSi9boPUXKYyoLYZOTkLuRFL VpAxYJD1eLtc4lxgZ9To0u6BK0Hf1bLD90ywjMIFbsuwE +fVJUxOY727Ez7oGQgBfAvBtT1K810Yoh+ oq6IowVo5m8lBQtGems2eJM7yNuiqdIrpKqongZQM00GbVzXlE0F0yhWS0mkVLRehRu5Lv7FQDviTFVe aOtGeJTZ9uvPsaEdQbRyuKMRrq061E +LdUH0cTI+ 9V0OpfzvgBgoctbMGs7y1ZXpgaPDYr6hEWX7xtihzhu9egW4khURrwAVtrnePP8O8tkAPmO7tXnhauHd zKEtzFHJJbjarPIwTcscqsPozwx4 +mYiDdsv1QQlqc+sFwV4Ex+ERnVeB8tbdgPW5bEl/P7XsFonSXJBWhL169377tS92S0u7omzm0x+ d5lOxxQEGEecYMzcaxJ+gW4jXkTq1xjkz5cx7QIqxywmhd45sY+ sos9wOBPAaHEVruWrAiJPnsALcrYvR0ZQar8ferCwT8Q4A7ku8rdf2tosd8vmI3dAlWeYH3brqTSDLfu EjGEEkxnC1nyOIalNSb6hcF0ex +o2H2fhz6bKXc98e1dJXJRPhs9B47r+14/aszPF9ZFtu07XcnjY+ 7SSaYlpjakt3o3uvI7lzglwq4he738AlSS4zA2VZDAKLdKdBDlXUD1YGFRXC2nblrYtutiZIkIWCVleU 0elZmKxe44Oyogm2pytAtWxyypVXFrNWv2Xw7JcFVQj /D3n6H4tahlcNpt7+i+ D2H6WBaMddbV3Y7f3VJrFYenvhX7crz0wYFFDAL9dMnjOWAfuJ0ovm2LQ3SsWukiQG6h3e28N6YbCIk2 cNS5AU3hvhXC8a6bDR6Fju4U4LxiIm2wxpJqb1rWgT56AyVBT +VqL0Y7w9j8K2c/xRPgGdEi0x0RQ6pDFzgcVdtm5cZ56+fceJiod4zm+ 1VCZuLnMsoE2Pfvcj0SZGE2w9Wo1k5fGMt4nytPjOKYfxoPXZjHaGk909ojsBM1hcpPnplud7slr4K9q 13FCSk /MewthR7njzE9By7k1rkLE0m+ ihE2RfAXmdrtXWvJ46b8MS1N9pycX5borpK5an8D7JJr1B0RuAkG0Q56ExKNlxzsz8jkGL5fQvNgR+ Hukd7+ KRVBPYUKNmbPotqywSIAjHW9cStK1S6VrQgNes3bn5JtFs4aCcvQR9syO9rd7WkyZmzdwwh3mkdbNkWY uEijMIm +2hnXnFvQCDe2YJLznMeN2v/rWY0zd0siDXvVuifilms1l1rOBqK4+7uboJ1yoL6rYCLRXMQyhnN/ jP4k1+PxJpbXmmReGPCV/Fcw8pjy9JtEau56egQUiC+AqCp1irNvpHulPXCqUivxjL+ BgihvIhXVEtoamS0uv4SfIxmKEhV6eh6s3/ ROq1TmoSFlcMgTvz82RNmIhYWbsrDGzQHj2CFhTHc9wCu35aI0GRwSxaS7/xz46nf/ pOuhf5gdRE3fFshxVEarnNDOnL83k9usKtnZ1qEfmEFqiJOfJHZRZVhqz3x+ K3fqoJ25b4HxAgcY0tofO+yEn7bKm4N+wwsJ8NIO4deWA7jFQ8kRrpj6ePHbxNPW+fOoam+ iorgGiYVMW8gb1dKAzGLA5scG9g0gG7pOzMZF02iRerOQV8er9xt4e+FaI8DnJ1xz3LIMxZvgps/ lYw8j5tPohpHXBrtQBPJta8C9D9LpAWrbulwalOmJcCoKfj0HiAa5dohG0k9EvO3lhj6rkaym6+ gmgC4nZt6imNwBYmrF0qTDRBvSvOBU8a7Qz50J/gy16t2c7Kx59HdvW2i+TzwvBwmkIJvaR0h02P+ S9jh0/T/s+qNbiOgkCnktrlBF7o566Ydm+PR3xwvwgthbDI33lzJ9t72LHaP4o0mkcbXnDcd/D+k2+ v1xTV6A4WWQii9MwdV5g5XI1bJv4tJ+9UDtYY1AGhWpjmX1PyCXU5g7v45iwzypzcrw/ PWgcKAi56po6KUfCFYppd/z6hu10DZ4SLyADFeW/C1I7t1h+ JdtAcN4YaGrIy2s2MltzMZoOcWGtIRW8vD3VH8kYNWGvVUBW7Q1dS07KGKm8aYKNnDYJZvKQDRJbGxoe OUafYcnjSFHYyei82XiYBj4eRfwncYdj9XuiyoTYmEpaHVdGa +Sak0jtfOp1eDedLt9j4fS0wW22AIbNhwlZbg0usqYv74d+ 8SHvmF7nuirU2VpWFhPaXZIphYUIZAAfXWHAlDCbm2c9NxQi12XJoQS5lqqR3nHE9EBactUQ2LzRSMkY rfrITJR6GcwLhBXqt15GjjSQulUe +RLD4tW+p/QOd3rG3txwArb/icHa64hnGVskMIiHoXIE1rlvlFQoHyWk5VG710zu41Ijh6TaDlnWb3H+ T3z8S3OtvG5O9uRsa/ zIW8Z7i7zygOmScaRxJDAdRJT7hvSsngOPgVBShXe9FdkUd9B6nDCRe1P2oM8dMsl9DLYXcs13OtDFMU Bd5lierqSK9REo6FPrGGPIpAaRb69iWwRrtldiYRY8SAp +OetcjGPK72ssEu3BCNZubgHwL+ qVdpqb5eBxhWQ4qHAaznYxA6an003yD50iIiFTChWk1uSYboznCCwB+REE7zQ/tHHkmX17W+ vEhF2S3uuJocca6v2wd2FiMwF5B9oAMqriynVHpJlnR4W9vGXbargHkty4aq6uYhnNcHv7CyFsWMnn9Y 1rYaTY +g02WdrwiRn7ThCJucasQHNorMqOLcS8fetBFkEyZi/ babzncCxAfdrEKqR4gC68OSPSSt86x3fBhvVRWyrm3myBsqV1l+ pFtX5EljM9cEEiCo9uW4rWuBU7CUgv2OHbMyLInVj7wl9pq8ht/XXU+ GkmngMNToVsUghmGmrGtNKqzFRhLeq471IyIM6rulJP2M7HjT2T+A/YdbmDsEpc6Jj/XNektSs+m6bb/ IMdQYxLdimqBjJP6tC09ZqVPceOhb99rern1bkKS7D+Hr+ 3PzOicsXNbb70G0YMQYKr7xxtnnJAJCEZP8VcI9elXEGOYB8+bdZwNS2fRo/omu+ AUODDJDgq1j3hgoQneCcOWcl0kPP0MCaZp1f2QxKBbia3GGZfEWBqjIegYznupM21eLN26pI7YJiV9Z6 6QlGjah45La4baC7tsSPMUQh / jWqXoorBLVToisHj68c6eEdgMTKeiU2eBmQ2pbsao2kTM7YnJywmot5a2wf6e4rs6z1Nz7B94UrKx6GH JtuT5D23M6HcIC7JlePloJm6pgt4w4beZ7Xx /MziB4nBJdAAN2M7N8umJSoB2DsnzEx0rDolIRUuQtqIDc0h4JD7UEjp7VvOSh/ 6qjo45WSX7gc7xTq86Reo0i8WOQtrY4LTSJmajSUfpih6wrou0u5W3mLHTfWWh5IddSYCLpmDVxqKzCj UG5 /aer/AC1o6uyv7sjx5tAPZdm25bcpV9a/ m490ydrc36plZkisIaYxq5phc6tEVb1qK3geHeKKpOi53QoV1f0Izs6wa466KHo9CgtW7JS4nmjjBZ0h S /puGi7njQAtDuyJ1d6ObRi+dgRNwLols90UcUqs6Adsyj34UJOaCU6Mg2Ge6VM3lK9W4Ajdr5Xbs+ g59lupqrsHmqCzAKUhYy2qEPLhDecOvTZIkAs9rokFTEGExbj766Yon+dmeg5X5i4r+HP+ Xle9Z2tryvZiZ1QL4ozfo3noU1qhK63iqajYMy9WnkFTxDArQVKJTDBuPCSgC6XvOPtkK/ kA3Y3i24f70H+ VXnUR3YCGS7u1wpE8VyjKFV2VUHdZmTW5qqM37smisVhy1CS8oo9jvKTDTi7IBCNqtoIgGizRDQQA1/ P31+Dm7VKNoSoUKNlchBUwEdR+RTp2Qvwn6l/wArHwCSYwU+ 2WAfZ41b77UQNSgKCKsgF9it97zRd0kxZzOVwVS0EEvPRFoyABI6REm5RBR1wmnAPZirXmY8KFSSkLGQ dvvbjQDn5skGfrN6hYGsuE5VFFH +hwOTgcKBkKAATjb+a/5fUnaVIoa8cr8eHhzqD/ n8Z7QozVlxcY7wad961Br90F2Wdz8SbT81vPaGXCEoX6V/WVXgkXkxJFiqBj8OCJqnnjUR++ H2fFwMmIEUkAHnnsuEXUX6cgvskY8IJ7L7ytHMoyH/IX4IMIHwUDY4f48+ W8hRcKW7tijiU6TeEYKaHHSplCzFIZGNZnYBXM3sLUQ79AQik2a6d0UkFEtlRuuWrL9bR6gKsdS4aaer 6e +bH8nhtBr5AtsRTGkJZ0TyJMgYoaD+XyEKqTyiqqe6AdT0FNRYRXiUacZ+ KXlSG3cG8VmE7JDOdMtegx34K0Plj8bneBJWzCSw2hGTDIWz/YCPkCW9V/MR5lB3TA+ 8reeodwn8bL1SEZIh0fKiULJhULhHZ9q5e/y++ clHLHJVgIoh7Xv47D0I1WRR9ZvcwOiTj7kpgZXOnmzvVF7y5SKx3HHWSwlUhP9JxzDXrZt5NT6f7cPUb Y5wLPpCMUUnd5o4avZkKnTOCYZmSOMmItJuWO7Gtu0E43xcdSJwKGQVzYGXYtJktrNAA2tYvJmAWoCIX HJuxIaYx5nB +rwaf0lC8/QDTeLg335fK262N7i46an3r9/S+ snxmaLVdxPIaAZMvrO9yOQK6OEycI3TfcZaZf8fJQze0IqbHj9CroRRqO3YsHiTuiJcYizHq092yVQkp wZJGYzuchinCmMSyTBkpyF9dJbV +D852H9qKDA4syjUUzAsWSeDPkOwA2xyuNyFHLJEgj9IR9wYUIxwinFrJontpYzvPr2+ dBceMP7p5786i0r9nU6kjPgotKogcQlfTjO8JhZdWtLDaaGfo1Ae1ESvpKgIgaJmBr1H2Z5uSjdQISpY XwV6p6TCNS8W0WEN40dORQk04uGNMjwYMsK45RIAypYUwQXpsTDPYkS820pBB9USzILGuXsCMHLLa8l8 g5IB uUy28wyX3fnsgZgJp4iAvn+ BUQwtp1E1V6IIn7qvOtMlVkSJnPfuk37maqEgsdhTp4hKkFXK8kZjEsWMiNneNRRU7EyxaFDdOXKXHLe ICFeAcUbmRciOXN4SM + JPrXsSrlujZzhiLcCfCgT8nvl27kvTv1Tgrt2gmtXMAe2c2sY4QFJYDkhhXrGuzvz4cjCBWJpFONVd6w wAIJTQao1XF7jrK7tSudyxRCu55XRbEQ7Dkdnnn9FaW2JLoyVmDjkOp8y8fzusZa0yAt6qgplkTuoHnm ScacJQY3KdQHYHKE2Y IM8DSaCWqfOWYnab3nl2qE1RH+ GfgznlPX4Pu7mpGpO6z4xNigYD2vdOVWiKmgPA5GSWsoVGxWs5ja69V91WFuh4pTLRK2CQfSZSPFIIvQ I5ZAyTLvnBD2rmYvxO2uLMEqgvnIQhv /pgZwWVOuv9nihHTw670Sw2+ 71t5eCCnFTWhWLmBwVopxbnAeGeT1JHvp5lNrcZiV5VqhecENtEQ1gtX7vZJTJeWoOKyNoWuef14/ T0dSeCajV1WWURWVwGUVFgiSFSJ8tDXTOIRtC6NKkSDt7JgiEXHeXCYMozzjzUwa5etuRpfXc7aoHekl OM8vYs07gQznk98mDa7dAQacl1ta0oE38CNlJK0tAAHRS6eAAb679TUum3jHtdwfh1BKnxw5TnPBSSXC B3 LXup4gy92DXisHG49MSnQkfH2vVBu2cbtt2IuXVQy+IKyAkxgKvAR+KG5CFLM3n7+ X1jnHc9bOZEYNwcQGUw5YoJZDP+RwLGo+BHLa1Tlt3aI12gJ8gCIqg3Dbzs+ CGmhwTZZuH9ucDg1KJBt42QRlRJyxAYWD9C0q/ IC21bs8blZ77vvSJ8WIgcc2kms0j3deflGDSwjrjwiV5yDMxv50nFFKwIeZOIQNoVUXqrVt8IMLNzAL8 NupnUTqNdNSGItK0CWoNvnsNVPy4dHCAigkT7zb5f8QWamOezWWRmThCWynTHKQxQeLEU7KAgEsF78Xd O95FgSQUrDuYrP3uJi70FqXiHE17zs7rLXq7sxw4Ie35NCv1QJ +/WNsr8qbVRoO8BG75l7ymyD6j+ ng4w0UzVxdDv7HF0AoU8HGbetIRQlCSRskFJMmLTCBWeFlKRfsKSgQSNe69H2KMUNviFivujhiqyHkYR 73H4xSj0wOuqSFUeQ2mgWw0gtB8oKjQ70WhNY5TW3EfGVOvuUEEZTqKuC /pTpJYDed6D0B1BwIepZAuvcSJnviorVgQbEmQpgKiRf4U2fNW9cP5UZ/2crHIRLE/Ol0MiChNh+ TSum3pvxy4l7jY625P8BuhsxJfJSCmWBAqwscEnTMbCHpPJq23618QdaRtmDZ4A3YVrzNtdyDSAQMPLq oBGdDrX0lAjDqmYS5g2AvFUuuqbjdC8zCMYgKGymKTjezBjCyaK5GMmqhaVILKLBGq5UPeh9w1 +Jfh/ bGMWm3lT6RoD657GaZXidwuaEmyKNou5XFraDQVE4k9StNUXdelICKKlnxsgAk9sDRFw5Amd3mzdGLYQ IJrbA8KDQKkGmfnLR6Ep07SUhOCh5Jn3EZUg3wuStnyqcb4p5hQoxRXfxtiHlyQAIrStgQTlRM6buFxA vtDSdf7SbCU /T3HGW4X3G+NICOLE+ CQ5Orn2iIv9MlqAZIEFKC33dFjYRYN3xtWnOvF0APRdVX8T3VbGNenSfGOLlP6gaQk6ln0PEGWJ6Ylrg XsiUuxeWlfRYrhvunZ4z3SuZ /W9b899V+EyXGkB2tAtoBDAKL9nMEldgsWJy3x7U9JOKtcpOdiVbbSEpo6enDiJNzPyrH5/Nf4YR+ LPAHxWt/DgtCW8ipIVnx1MvdCKxucgzhv4QkhRymBSVdwUM1xpPD1ON5UAGESdGyEn15+Gx+ KtPHo2cAnR6e0UNyv7w1+JaShKK+0lLrF2/ CDP4HjS08ffytEoCSf9JSx4yVzannGEQy7lD8cOMMbNrQ8GixJvrA8EfrV1F2nyjBjn5Ykc6uzJP1BfK FvTIrk0VwP5BdDbECMEoUvq2NDFtmmd43HhByPSzmJmQgEaJxYWnJd8lL5MrW5mT4l3YZCviZu7 8QC7pCmt0wmKAlHLw/Z8vGgYxv5idTequ2ySVVgf8nsv7EOaDPUbAe03eUzEjGzrLpufLCKo7Z7Hcx+ mlqLKYuy3IEGCnfvVpEvqXS4vtQQ6VFQ3v06ynjwCerbacHfceXMR2XfzzOhJio1Vsk6/ qh89eg72XSC66oQFaOkzN6ralvKqZbbUD4j1Xk13WHaswA+L1HobMpHCOlZI8NKfXTWrA+ pAjxkZVOtEt8S3pjj6iwznMw3kMXVF3lblSuWrjpmnI3zZ9Ss783uBVarKHzQLWK3C0G1RkVSSa8Uj1A tu0BVoaiAE2fW4228J5JIKBKYoE6P7UZO2ghAGp0u45wLTrgnMWuV1mvqk622o1 +m4nIxi9Ir93ay3ZX49B+ zKkUmtYEwUMxdCOowSvlYGdPkrbMBHQWZpj4adsY5otS4W6o9lPZ8R9yNE5zjOcCKqb1X9t5nxR3G+ xdgkyFIrloLRNfPOOzkKY8Wt9SFsu0KdkFmq8RuIEcf3Ju8rQoIffpejySZ30dHJWqA1wXko9Ma8gZ8h 17Jpvw9h /aC2/sT0OobcPePAx+x+J2kxX+ kr6INjQj6zoZ1xf18HjYbX1yfEa5ZnPr3thV5E62hJzhv0alSxD4WsF/ pU7oSqn4zPReQz9yIN3man51g8sWdYRPRJBqQVjqzRU4G5aBLZkxvK56l+LfD/NJzesETo5HL/ tLa20JzWg99KpRcaUkm2ZXpfcKAbYPP5fggW521KVzEbvNxRyb32VR5h+ GodGWjo5HoGBWqAyt04kkowfK38R1J0zwSEaMC93Cb0viqSQd6lsjh+688A9uYUy0C6YHDvd/ zg7lslgDvt+KAmeu0eZIyyGRlrAilW0qzl8wON1nRhC2EIUtnK1Vl57BffAI7MbidjUCckLcfn+ HYxQcvNan6cs9J8dcacnjXx/kS3tGPT/wAzk+wGvWDHR0jIOUPID/ R79e2K9yDIHNe5DuDfQHeEt5LAJ0zKgLi735QpuMbi5RnDFtPpoksBJL/Xk9uQJs0C+ BkOlYw7WbH2jJh/QlpUNw0knglnqZwwmaL602uyl58KvAAU5Apszm+w0BxLuS6ni7yDz/ 0I5138J8uUp22D0O0u+YvlKl1OORAWEpbDmlSNu3IxfGq8sn1YI5R+t/ icYNv8Nv6gN8ZOQcVAuLr9O61g8ROoueY1pUF/QDwyCdzDHGjbfd0x+ deNwjcgSxM5voNJSrhwnsBu9jtLYjgEjSALxDBRWxzLdozKzvkfdrFn88MrxGhtOFW3qy2svRiKEDVJ4 zvBIfRsdAgl5h02vzPqnT8pFyUuR8VQomqC5SgcN5tk570n7haDrLXY36RoKEeSSqxAHVC72SQliinZb oNObggP3h6r9enDIq3BI98S55PxZtpB WMDXA3dJTL3j8g1Y8f4uhXUb2bjkpkM+4n/ OjWHVwVXdjtZxofYGDlp9riP8GXqi5cpjuAqn0gQWT4bNzVAiVGpVeuvBkSkxZjN2vKIShQ3qorDmzT1 oAcQnqIm3bqrdrvm5v0vSuPmFQvyGBKaXb8RjYyKNugZxE7KgucfkQw0U +KUseIC6xDXtfUJ5eTUPuqKZeBMHP9oxm7dHry75Xve8Pcw8Kf814BozEz+ hxpr06fsn4fQnXBbhGEg0av2Gy0ZzoARSNHZgldMbLd92sWAWouqwEwTx0l1B/Cei84HfE+ izW7I2XLVX1hl4vgc95H9diKkw1/KvQuW9tpWS2s+TUZvEOt+ CFU4dT3y1qBCV2N5otNqrzE0Du0fKuqwcbKeU6lbgKgjFODiq6ohVUbwZVeXhuKVX1GOA6AxBwnhZQQu dmNODowun7S8F + L6skRR38Q5vdl0u6Fb02zRry4trh1M5887qAZyxx89QhQeqUcrSdGk6i9qpPtIplsQ9ZeNknsNZwxvIx 7ihMve7 /kM9xX08odCigLcNiI868tzO+ ysGvZfBWuLBdouptNB4gPee8zp4HmymT5FKCcpWfjxup0cLynB3ACY2y03tC/ mCras5ntXxyCeez9iYc5ozh/ 0BzEOi5krU6mzVnhXygYjDNMndP0oDzhtmg29awm5GSp9mtLog1V7gh9M5GJEu50KtfAuE1wsm+ Zbu2l0gR5nG2WIaiilx+xQFg2xoTo5eL96BHh7rvydk5O4ClD5Kv/tR+ DrdAXkEBhYFXQjbkfUJcBtz4G8m4akD0BZCZMSFM2rnWRGGOMFZWUnG9CvIraVTPgoxkbF9F+ Wiyh3RrY/ BwruAlVVN7TfNWi9mYEkc7zsvkPSLth9Udqz6JRfBHWj55AdMSHOTrNuWS5q7Ac5hCxi5NzX3x1AujVf d /lp1Rm9eey7jdk9BdSVsIkUPizZZJRLtckMeLx82OwWHtvWGxMyhcD62Xcoq8bmSChJvg7/ MUly3m72VdZd+0awuel6hXRJRdm9yOubk0RtiUjIzZM5klTcevJ8sbqdCfbaB2WcLiUnF9Rf+ GxQ6z65BkFH9t6/JHfa1/aVjEtpeXUmn+ZvH3M5Fyx2tdg00zCatWawFVw+qifPhUrDk0Hw/h/SsW7+G /jXpsEVXwh4jVeeT0RpAgj3M4RoXJrmm4wll4x/ S6rZj8xr8A4RtUQNFOea7eo0DmhZRK17Sfyg4rdgxiOTMhiKFYUriNZDI7ue0eC0nyptyY1h8S9xwZSq 1G3xznD9KobtVuo0 /94sasVDXO+EcRwOhENZBxxBVQLR3vJ2aVigfIIk7Qo6jkUXNvvsHN6PcRi6Q+ 6dA37SL17iAly8FPketR1/ns4keg0em3zQ92Vs8Z/ vnrrkCQBbY1wSswuCcnlSjBn1nQNpkrtp3PP1MI18mOnSv4eK4W461DuNV8t+ fXtaeUgjlyIE5PCtuEhYrnoTkGZ5d5wnk9h3BD7KnhmnSq61YtOzcAIyRvVs/2x95oxxauk/ 7m7obgkXwTi8hS+LdQ/5VK611ZjP+ qtXalgaVAWdlFAvx1gbHb02DNq90kd0OJmvFN1bsHUhnqnrpO7uGPRByq8fQ2it95k4wCEr5uYVb70xK hWeXwZr + aYBfjtE0CqL17jxkbVaoECpDpBxzQLFuvMQZ6CiZo39f9CsiZVcxUnxNM27sLD9FtD7QZW1lmdwlTmO1 B2tagRgUFFRu0UaKCTpYsk1DzZULn9XuG2qVy3oyjmEXKAEHmpsX6hbF /og9VCxF2e5+x0Q3aXcp8K224ZfKPowrma+i5CrZHqzoFDcJV3SkzhW5+ bkDk5nUsWogbE2ekRe0wkZPa+ WtLnHsdk72s3agNBa8V1EsgG5Q4tOSstPLrjeuCVp4hiTciWZOe8QHQs7Xt54PiJ7tK5Mf0W+ 1yNxwNHPCq24G6WuYiypnirzsAPevhDfNsl/ Yph2crCRsHU22LocCUbhlB8GyfhYXCVfJqPkz5TjCLKs6Fb1oW1U9w7YZGKjbKGn0UPvWj4GNDhrmtm5 MaJlH6kjQBt8UDzAqodrNaNX470d5vH4a1RT0Qvj1iyjHbKuTndKIOqFtAa0PrDYHn2pj4gMrapMCpwg FufLVXzbgUHvKLvZRVaBToLWqa9tReGGNswPALAEXhaxPLD2ZzvJbDfihrUsERe2N FWTeQGN86R5dNa4WQ3btcnkXcpDDzaVVql0ujosKDT4Ef5h8kU3MLYOb/wAoJUCOR/ 9SFiQHWDaw6gPy077ZCJqzH01g8vNnH9xQsQSbK7uINsUQXnLmfrjDBoL0b2hxXpNkBmivpfZebre6TA 5L9pdEWR5de3z62er8zBnUypdG8Rc6DdQxPNqJqZq7mo3CSy4lm8aeLl1vpurXA3rauomCJKDLEtC8tu pMIfSVRK5Su7eWh3C0czv6sxNnYIE73nAzShXz4v9FdKgG79D3KxuN7kJj0qjtT4Jbt8CrgrCJ iTndCGZcjVuilo3rnwwoZ29e8t65uQbJreAqlRIAZ4Qv+2TA8MaR1Wkl7VnvZ689miZq8kLjMH68tr/ D6X+cpD0gcu43RbPr4MxNXO4QApEP74ByRSJSen744UIy4C4e9wdchZksNl/LxkqdJwqSs+nF4lzhn7+ em/RM43fVionTVhswzKhqFd0tBtMfsqm57mmgntslc+emEkRuM6G4uUdau/ 9u1fdkD6zWhDLgpNGcSYPAzG8UuTRy2+ 1EngtR6x5kLg1k8ulPBZvRSAhkDHSWMR5YwcurvxpQBpVfvC2qwp7AkvZdLazhptBRrqOxxhZcA3q2L7 W0Ync0tT8pBs0iqKwQ6jkUTEOzdvlh58QWKhzUyg9rUFVl1dDdyGvhqkkKPaCObweDrhAscdHrPp4oR9 sPMfPjx4e7 /T5+vGVOrNRbWrlFyerTbaabXXv/AJn0b+yTommePfHWtR+QlH66IymeQ7Ux7abqaQA6+ aHfvgaxuvYWR0zmMbMh65jrMuPpx6GaAEM5c8K6Yg9jRpCmf/GMoo1WfHtd82m+NzrP27Rm/qGrWxv/ GPwdIeHdTazxIf1f0l/jWJWTJIu13gaxhMS/AA/ xWUb9vlKzu8vB75I3pObX3S0bgnAyZciofl72G9Cvu1mg6OmrtTaGHfRPgMJwG8X9t2ivP9zeS5cMjIH FGQPTW29o7suh5dQ9 /wAPTyeGriCHWNcntNP/ALTg+xvVwjmJM2Rr+VXAhfv1NS+GLv4t/UkWX8cv2JFWTtP/ tERPrGt93OXlo7fH4GSnqGlyN2b3m9T1j+ Bdm7OPHVb1sFdy4DgTZkKsNJcTKGrSMmvw0mtmyiItudnXpYElIPxwTFUgaeKfa1vC6vRxH8dTTo+ HwwOPsyWNzp9ji126CoMgmNCwMaVvPkJtgBsq58v618SdNur9kVF7DUh4TGkCFgmFbeLVsyLVlvwRN91 bIkBZQy33cSXkkFrwWlcsSNJXxSpAFoP8O4fkR1LRCA9POmZzcew2M0pgrr9f8B6oQKmzSjJXQf68n6h 6bvdq49hgyyei6lMwSkOqg873qstZurCBKqAVVOxiin0chW4imi7RWAyM vRONOqHNZAcvk9YFPslMJawd4YzUUIddy3J4Oq3V2YdjJSDRo316mq4Zj0oD2y9q5EL+ Mbt5Ar80u9b98LKi3pYczUAVdY9ixQO3TUDKOZ6xJcl0xIRxoMnu86EyU1xY1mWZ05k0tKaaWagvs1R6 x9uOx25fkptbk5vxH +TlOWd6UJhUfWHmM6umW2jg1CA56cvc5R7TnkvdY/Z1+Nuqfs9/Y67VhXqs3M+BPiLcfDvxMutXXw9+ BIxLvE2M/tEhc0MYtz+JfBfjzw+P1Fnk6P2IsE3Z9vOiemQUH9bj3CPGsisZBS1xlqOw6d+DfFHxm+ M9yiqP1XUU5UyH/iR4ou/iD4G+Ctnqeq3+l/ MWme29rn6LeXjDekTJJfHPLhduNfJg91bEyFfIyOwLdKinBwn48Y6DDd8YnsMydmO7/GRRfXx2GgvWE/ u022pLXt/0aWCks1d2acNWh1DomrCaTNA1NMfxAi3fmfB1vOqhpgsuraKF+0fEP4W+ SffjUXtHurY6D1GwGWgPsIzcg+KJZiiIJ8fhxrObg2SbDHJCqw94xhjx4X35z4+H/ HtnpHiTwKukeHbzwDovh/wvpviPSo/G2p+ D2FEpsprBVobpIMyzJHF1Osk3rzG0LqwtvvLDft2xt3b3ys4QNulPdOFPa7Oo11RbPVgUCFEM77um8lX JtCginBKQXWxlw7JM0c6vIhB6zIsgiiX6hBXClObUuowHhnUsdYJIeusyYSK8BtDjROb2rQ /1nS5b+Xk0pi5auRpGmjDmaGdHAhzYEI5nuCfe2XJXit+ SwHCK6NcfQNLW8KaZ0UTMLugd0b91X7lf03ju6tz5Hfh6UzrV1Iq4Q6uxvQs4atY7RhDsX82xbZbGmtu QgtPzokQ3a0WkVKhGn4kXdeqZmGRegWpcY3lqxESGegMaZNMzYmagrecoziqyyxxmsvh1zkJxD66 +Br+KWxh78Jz9zw0VqonXc0PrBc/O4+vSjWlSso+6qSj4J1Oujmvz2T/Q/ Mqms7cNFJSCjAPAwsvzOhBGNTjM0Z1OG1s5d1tS3pPdKm7rhNgN4S2sAYuj9bxjhQSOVtkTwrkjhL9fG xs1wB7ZoqzF0pnIsx5Kais6crv5W8oAL1z4d4J3HvPnVDSxVkNk0f0GrZ7NwQ6ptDFFfBwYPXs3E +90mzwv4ENX6QF7USA8tDYbv3hnShWnmFnfhIsjJqIyluTNo3r/og29VQyzRAdYawWR/wDhYV+NRGpeH /HA6mE9NH2iAtkp4yJVNDQ/7Eymc0H3+o+Xp+oOfWo8uu+sr/7V8W+ZWwaqOt1tspcdbSht/ H8AVJkmhgMc9dorZNaL3MbjBNvnchyBQ9i5n7E2e/Bnhu20+ j08NQC9tNtRPsrjRPyyefF0kR575ESoJAEL8FE0423sXPJd91s0yb78uh0xTZHaoI3hv4Mq23YxCRGyK ccmLQ8sq2PXN72tfcwhcKb1SYDjjxKdhbkvbEnxjic6j8eceXAYUlwzSWQR /CnrMisV7n3AiKf5iCqHnXLcodLXJ7zBEYQMe3s+CDn3PIBOBanURM+aPU/VjvbgbqW4SxCvX3eG+ g1gS220NBtxWIrZ14hQX9Rz9QpoiUS8nPaE4k2ah9QkMl4+k6yHZExCp8wSgxtt2d4aonafkC9wL17+ IWEOa5V5qbpJNMuA2T8hk6YwrM2b55QWyd48ggbNZJzbZQzoBum/7gcE4IAZYYwE7qOEw/Rvx7/ uJ1VaZye08Ma+w+Dfi/LsO9e3GYaFMtdWPYnjS6GjcL+PCGaQnjxG7uqxEu+ORQx7oi/ mLjozzrXwmMcu0QwLJaWGf7zvx+Gx+Dqj1hFV8TVitnegcng3oe07O33hg+ 34RXiR2vE9hBYKpElvr6KgKMT6WiTWMqCpGdGJUEBwQkVfwzGj3rfyDIUz3G5ScD5RxAqT4W+ RlR5jXxc/E3/USCxn9pI72DmzbajFK2CAqW5IPjsp6bxnmzmSIFpp5/EmyYNey3l4+EfT4gwX11iXD33 +DiqWfhd/Tzi7AsVimBZVNdf7OOqIszrozxtRgzjV8ShpF5yO27ZZcctAt0xWIVR5u0x7JiFT2l/ Yz1zjM5jyp/8ABH4L+F/D/hrVdevfF/gqwtfBvi2+2ozC4by+v/Bix8PeUJ3Pim4o1nlAvsr5FyQ/ AAYnbgpxA88DC/UMsprcpzvSevQ7ph9BHc5sv53xPCyxifW/D/xsUi3FrMGvYy2/xPw32vbC/Cmp61b/ AA+4jkTOBd8w2Wu7ge/F0+koXXNmfxma2lj6FWJYyqTh+ 9dtdDlPhFxov29xDBdB54z5fem9CCstSSqQZYvYn+ Yp9EU2k0qjV8fSvwCjHEEMJzyfwkEWuaFoWCQZWgYaru3e+UkBq0IIZd4vzTSiCeQRCSIvX6HoK/ Ls37x59Z1vGrEjQwU9KiHXAv4qLxbJG5zr7txUwHZ9R4X3boaCcqFBCV4HK/ zV3r0p5rjScWkKY5v9NxvFgD4KzhUAC1dUpmWQkK0qsS57kdEgic5hDtEFxZ3eIYWsfSbXdQ2rtijW43 B +6GJVsfoDWLzW6yfiWdf0uS3zamxZsO2vhqe8dQGUWCY7C4s6zfVoXtU6I8K+ uXwCyQa4mTbIQVIxb1wxzea9irxg5GtNCT9+orMHujvlX4cR71QxRqocGNQ7a/sptLq/ Se2ZWsM8739obhAorCyQrXnYMZICB7zSyhmV4q+Darryl+JRqPiMkZKnCbZqcJDHAjx14MxV4kBvKZkN/ pxfJxY82+XFATos7kyQ+/3UmpdFNTjYVYXzdZDSsxV1hwy+ LjiyAWjLRdhHpv4NWOfR9KzeL7SrA1451AxscR63zm/FXhW/dqlb6pbY0C1LXWM4PBuLk9YKQR+ qdeZ7zvcZSyY7YL3tfkq8lKHw9yw6dShJmSc5+G2Wgwh0vshO4pb8ZBwi6+q4ZwDbrkKcixCnt+ SoEAd344k6nNMabIYoctcHl13mn7fbZ1ygaLjWsLCiq1p5gA8h/ VhhDSLKakfbaEI1X50OGbv368OkvsYC9gx4pZRU47XS2/w/f+E/EOveFtVKHU/ UHqxm9ac5CTpxc4Ug0Ma2Qje2LclHgDcaIMzblohGbATkI6QAlezGl0+ yZMU7ckojqtvvzKFZr1ykVHW78EN1usQ1uwRyNceYsirpPn2Rg+ z1bkWuacPaPvGkFiDkCQDOWyYSTcGt0x5YU0lAgEkowvw9xLATvuyZrHoF1J8QN0sraQTicfsauWMCdB orzud5hH2hfQFM3LlECh9EMEw1YLPTcANYs7bLAGS7L82IIVOTIwvjVExRct6r4JthnQO1 +9DlRNI9F68OHIAkVYWhyL8sui0tfkw4pHx+1wuW43ZaPYCukSy1d81Xgu3n/ 9JZQda6MtjoDXvdSjLgepYZVRCALFYGK4YQisSZZ/OSypqcTInXxVCY78BPRBO8mkyOlXTIfiCGHj4+ bNrsboAMKld5nvIP2MEltnIBA1e2kFGqEBQn8FHSa4f9s3SqWmYNAV373cLoy0mcTMsNa+ yjtb271Ec9fSkYvJ1RjDYDhNKhq+XJKk8/ KkKpZaIhujFLgvvocsLuYwLQDzG8MhKzYeeFXXFyV2ixkkTCWix/un+ QZP5yNQnzUHhHgLd7Va3MtdPN5vVO2ZzpBMjWLKRyNVKKdrA1iRx3JujTv8861937sn/ bdi6zEIlXwbn1viid32j7vV5cJAxc1ftK7pukElxrWsfHYfKdkAiVLAWSHUruR4SZ821Y7zdS2qjoRhm 66vp985c3XsAHYBmgcoNTmkjOEcNFtZ4EwiTn4F74IXjHaH0 +YdCAoAGCSowckdDwDkHhsge0+TGham2hP4lTOGSHnmzAPPjeCXWOAbULOh2uu5eIbWFCpG2Ux/ Rv48aW1waPPtkk1xuLexp1q/OTGys2p2p2+5m8cMG5GCOboBJGrEhdLf2emNy4b00+9twWAFeq+GNKs/ H3qT5b44l00S2ksksR0Usyp59SRsC4uf8YCo86L5r1KTqFTFDiRVdcjMPBwhTWa8oMhu5WcQNwR6fp1X ZvDnzZoFFLWmBiQd7vl6eklBCOa2J48AqS9OdtUHUAe0shEuxRGtVRaTsR08wDt0h6ocf8WRRhxtfxgg P6ZvccrAYYsJD7RxOTnxUk05dXF4tv / K6r4VyrXtPsDEjurHgIjS8mYwpTrcxOADcKzg4jIKbanFoxbigGNFBCFN0wxMD5WorQh6p3pRhOKC2q9 G + Ggm89oDSQZRHsByQCBUkFyCFRNABONgOO2HEVxmWPyhY8oPuxa5yItBDefsbNDK3yBHziJN4RxgYPZMn zbx3mMa / SyQA4q4Hlozq37ap3ewCKwobWgycpJMIRBwZdC0PdD0azqoQiSbDwyDl2sn97fUeczw4qlyuptMEPnRF Ht1GXJ6QKnkaO1eLZEyUiu1FCcNsrV6xgHm8l30NMbEIZyoU8UKdttMXaPI0bxnMucOiaPaW8Y3IF8z NCpblxESJLqbZ5Sj5MZyVkPMNuspw2lN4ESq6sBrboJQDkxOuIAYT+ Md6uXtwrIv0CvjCL36sOvd1Hbs7WiV2oSOhihZ4tsnSNvyjyXq2l6mG1hIEv0i1KF2pjxRqRGh425+ I3eU6RjJiI9+ wy4rrV4rPvRDjCLQwZlozPm9uS6lqt8IP17ayxRugRlTyVjdkigBTVasTtAsl63b9Ox06yjf99jmxp8N 6zcf9WAc /N6CE15AedztF0pZfCWgYbV82zW2ZTq4Qnyw8es01UNq7SCwmVF9kvbbQFdqpGMlq+7kujh5/ Bis2zMCOj9rUzmzas9S+P8Ax/yqOibs6vKmOBM1omJZ+ uWaoMuyjInN3ur7FNyz4Qd5ChCSK3GEsdw3p8VP1upGxppGEyoUvK3DZsfBqv1sCObfo28WZiCEdkDXX GeE42Etao7gL2TtFjDo /wQZPozBJ13kMEQC4dz2+ xCZ9hlKwjwH3r5jiWR0uV1XbqPOd4fhmHFH7ECz3M1BEPaX56ZX0sRKX7O9g1lM432synWFF34vjxvD5 q /TSaizu7k7lD90VuAk5yNXp+73se1+ TrUi1L54X7kg6t8ByezcWsbfM84YaXHlLeGfe4pNCKLeuIUeiOfcS7sEhwqO2KqdnO7WJ+ Z5JrAWU8gwqE2+jkKkYKArPRTXcwxXsj1yPuNhX9k1kiZ35pa12ovfvWkuB/JzrQrryO7yMRBp/wBmaO + bcyTuevxyLo4D76RnoqwGzLBsiCxR7V1nAxdyjGFsiCi9gc521pGOnekZHC5qUchNVtpSlamjWd5zIAd pGViBaBbwPYK5XGZWXV0lS9v7OPp5bgcc2OIxCMjGn2kr5SyvegkcNe4batuv5IdG4PQhA4VtsIKdu + 2yCaMGH9nFHR1Qv5twq6cd4hvFUDDgzWR9p7hOeyGzLfIuJEgyWLorY0mp9vjDh3ChodPzQozVTBlN0z 1tqTocVgRTOPmlb0XjAUJpxGzGMF6pka0Sds /wl+ dezote0tScfivl3hsuiAL6xkEz4Eyt3UtnfzWmsxYwJcxkbaJck4zMOxzS1hzUcNyt0Q02el2maLeriV E0suHZOMau9qOUaSC3J0hbyemfqS3n8UgiqATVDmjhcriueU8zNq /fXvIpX2Vz/ cjXz98z5HnIxC09asys5bMDALdOOpMrzDhGnkhb1fqGEjMAvyyGld0mgtRV5YS3sT2S6HFnbzW5H7NXI /MmlO9ihCj7u2/wVNAGyuMHfX8j1QnAnbOiiU2PAZjWFCgs9mo+ EGOtRxgT9Vze5dAffxto4Kd3PrvqmGR4yBA1crM6tHivKkjFnlfoJBfzs0fp4UtJEsk80D+ gt4w3yCyVcqsrq1rwBnhwQthnJGRHlbe7Cwgf7wcZDVeUJk1diVyDKNZHyigfGdhp+ BfQn9R4bVU8WxnwkkrB0rxRm48dZUoYrhi5B06PCaFUnvL0PrRfWqNlJIaSo5dKjG0Lp1R4eumFuvsh8 us1xc2D1qIC4no7w4dGE0phI1sOinjl9jorM5z1D03p /qXh/RdCTQdduNXj1+ZYrm+hwghwbzMB6jIWP6kP7V0ENtNNHk6ZOhLTI0rRliBfscvvNcm+ NSe6S7MIPiAHrhE93clyY75eUbxfarJVVQGrUJ2otS4+ k8GIE5ZJL4UcmwCI8337lkZxjGxfoXx2tdcS2K9q3kAIYljyd0iUIXsusLjYSiPG9lN2bkaoNtSslrJS U2FtonFM8lmxyvze3Fqrau1UObKtlaojQ + z5Epjpxr5iT5Pe9d2JEJ8zU8iHdsYrPc5NNLNQaYFOVkKxAjBvccneqkBUwCG7b1n9eq0d1GpT4fjyJU R1xEpvWvW5w0s1oULEiepeMXcwW6Ug4SuP6mnw393Rr73f5pyiuzopvlR8nbXW3t5QzbrS6kfMv9dxWR 2CNe4Bax3mFNZvncHbA4hyuoIqXT8V9as +I/Bmu+PVA8l9E8o11To552R6gBo5uVjPOqQCKRgZkXBV4il4el4PPHNf3lqjtW1nA/ UEbWTqk8Y1cMd8W+IcwO55Q0oxxqIYvJXv+ f7Kyepf0CudYfLujFJVwUrBX3vkCVMWKkZQgQuBQgF5uqqMeGMxmAjQ8ds1dJf2Pr2ucyt0vWX0kU2jd j8wyjckyfslY8jcgEn3150Cn /8zSyiAG67GIDrR1DQf193AWHk+RGlXScgeTiv87c8T55Pkw0T+ x0sExKtXd0Y53c4C2xPXxLhWC4olEM15krCFxuqNWk34C449Tfqwsqya6izSZzR3xli+ s2FyPczAHDn1c2rmcGz4+ Ea3d7d9JfNZxoGHfH9hkpKunUcYUeAtfs0WahT3A8YBx7l1No9memaZRQFe4yFgOdVk5EBmToiqoUhgw biva5rabrolipfujRnH4o0aSO6TSm21c5PmTD2vhsvw0i6BgEyGgP3SXWQwgolnOtN7fWzDaHBpmerpZ gn +zM7TcHTNmchsg4a+JVrhjKXVxFIr528h5bcRTvQfFZsWppy+ 9xsWHtOieOjuqUJHO0ESw1DwKGZZqOA2zyFkcigYfkVyOy2+ PBgAEoXUjENx08w6TtTz5KW1jg6wnGl9SFCPwBPdJMXhnhqC0D2UTdCwk1imqMrsmmWlrP1mpyOiz8d+ Hcn0DqOkfnGxbgg6TLkcbrKBWbZSxXoA1tbcsHjyijKvQODYjvBw3ee2RDqaxI0Ij2ev/ Wve53wm81HdZdk4zvM0uJ31B9jSbDiITBopl9ye8Wn6mYuzV7QEDm0aE9WUgVTMfLeaxL+ ZL0ljtcDhNsnE9Da7K8dGSxfaqWwXDYira2VIqlJgW0SgcNKd08maYpuh1i0Rn64aZ1SQi2PW8kv+ X0o35BhF7d9B+JCtGMyehurK0Bo5G4xUz+ csRrHcQUce0FOy4dp5jJ9GYjNz5mSkweCpKSmOavRhItAi7uVGrlVWEuGFvi4Dujtdg5Ew4lr86tDqr1 TW +t0AAfqS6+Hd7nekUzRZpnXfERFQVql12xOubAWyS+Piwxmu4d/ta/lo8Io6bAfvaxq7Gky/ jq3pxK9ab58nqm1tljzMNMuGYiMH2I5t5kzwfdvdm5p+gPj5r+vX/fqFPZ2NpKTKng+GLTSLv/ lDKLisxdiiELwJ5u5DoB9tG7wmsQ70vU42mbuzwLwLoXzjeV5i0D9D2W3ORjFdUjLQqHBmtydX8gfP+ 5Rvtctjh4dt8eQA9+cda4Plr3mQzP3P9kRT0SrctEjE/ YtzG1GHKaT7lEMzb06txPCH3u0o1kxfLhPmZPiYFx7Rp9zy1igzieBhRyFbYc42wksZG/ SAiHVLMq8LMPfAlYgwZ16zh63IGnPCpp1c4MjL3TyDmQHD4S/ tp7jcIsOFLKakP9HSyyzSn3laXG2Cdm77jd5rsIg/s/fXzDyuvK0BmOO/l0u/ zAAz4U1R5UwFkx6uVZPLp7wWXLmQlJf7W7LMwB69mX8mtVSazg5x6Bji4qxgu5t2dKafs6PFof6DuuHc t6kneaDbcZ /BYOiFR1qVK/1y3XsnFqYnYcErzJcswITsWF3ymDma4YgMNXbAxka/qgstA/s61/ jnu0WTx0V90aNlSXslputaJz0lRyv7WaEXISPEeN2O+ 0VXGRj2z416v9PipL9jgx9o9FrUqEJbQKuoICcab8oQd6Ku6wsjEMFgEBKFqCn1xCO7v3p1gI+ 0NBfKJSRz8CcCSHXcJy5gj9TcA643ZlyX4yVdA9gUIfCjOGw9EuFDEBePulQWDTf3XC1c28Gkefvpu+ tR3J1wiaEQeYYh6Ntoz5gedvdYp6r2Z7EQ4fDmuQw2qUPInCDoH8428sfyqCjTp4mSzHmAQ07cc0eyXW 5jwbk7tiO5OSUXB50V0rBCobLdokP9L9cG0lWaGoq5fKzoNzIm6QHXmiVnkuU4sYkbtsud5H1s9sVc +s4YzmCDrVyGlCPQ5ixh8sWj8oCclcvISXkzUuTAC5H8t+4eRTr3kONKHJt9sekp/L/ sU5BilB9u3GcWzCpdxPV7nEjGJv+ YsV9L1u4BGc2mdYygVzZ2g0QWs43LdhqYKV9BitCXisnwDbWWabrJccgkUxtcjLWf7sfQ1LJm1VGHuyK xNqsg1j8IuaMSA0WMmRojVydDIZC2x7uKsvwG2WJejwjcR430UIraCjgfVqzYmes3s3BIpp /9stID4K3Yxf3d4jWmMYeXCpHMjkGi0psmaCh5CznsIuUHJB3uiEo6+MHDBCODcm7caM2S4Z5bM7HQc/ TxJcaZoulaJq+iz1WqG5Pz8j7vVjudh2Aeax7wkmWDaC5ArkzztEHNh2fOphZvcLhag5w7nWzoS+ Otlg6igDcx66UuIGFv0BSVWSURBD7P1gwJtVjMhAFJuQZ7NS1Ln5dkWvji4U6J7Uj2igdMwUNK6uNKSd 5J +3iNRf0Q4VMK/ fw0ZhzFjXTCmHowxU2FZLpOGLpdZArZbZzAaAQo3DcJRpyL1mkQZxMfo9O8Rb8OGTtlClKvoAnghwxWG AYVjh2PLwR6w03TVztYhJQGK0aHCKWOFepS0GzmQX +JeJh37clEX0Df+tbviQKyo7vPPP8Sz49Edt/n6Kx/iHY1dp6daZMM2zml4Mg4q+ i339j3SzPlFdLyj8bNTS8XomERmqrNogfd0fSeFKA9cG5Kg81tdD6wCROgmoj8sfYZmCFrRMVNJCOVTX a + mFxkndIVPXtlJsoaFis8GNdRJeQUTHaK8vDKApa4cGo4D2pfhUr7Kqxf8GFhhZbm9nXZW4B7TVuveZas xnGREOHvtdjFdbsKhe4KS9tbhvmuqhAOgqy2Ip1dE44bW +pZ9qp5t8p39fhrYas6vY+YcWYm3kGcAJKUET+sKVQPycI1FtfzS7VoyvxelAXLZ4FIn/ NvzATCDgJiLkWz5AyPbAmbWwhqyGULJazboW6I91P2Ct11DcjZsH8rSCZZgBghFQiJI6R1MaH4jJdQoN vCJsQUIe8G7eTq7AJf2oyX3N5hx /m3V9ahuVI+ 9zm5QyA6xi8rBuItxFZ5GVIZwYXrZJPHZTjQTerKDMIAib8BKBQilQLAtIcVmzlTbDZzCUxHcP7NsNTn rnuq74WYwyWQO16tQWoPJGVkcfcjBF6F2WVlDBCkJnkaKew +6y9aHVlJNxbCtUGOJAH2eGuP2SWFh4Acu4IpDTdi8YF86PN47VTl06VO3wRBftNI+ 7i6ib2nCGbvmIcKZXVDbjZCZ61VVooQZFF6T5ZXXFcnOHvaCdnHSTucWlDkWWSCXrjrzhKDqFAM5AB0Y TFCgrkmaQ0BkkRDGwj6dLYYGRIwL +2aTJ2JPFKINjYCakBpJYQaVMdG4ExzoedHnJ7XurhcDDht+mgpivYt3ruKz4APzX86YTFwH+ 9a8qUJ2CHulPXC7iTsth3EM80423dnjKgRdbtnbSw1TJX2Nq39Zsqcvbkl1hTNcCXeNUreDztNW3I704 9C6bw / yG0suCYcTAbFLBQEf9FHAapuJaQav1Hi0gGlXm52bz2IqaiIuetFo4XmMWfIEQTm8LZHmDNMvFjrXQRb jVjgQJjBfgsF8cl4b6pzM5 /joglKBvW3sFTI13F3v71+8dXmwCnlM49lytdm+ jS5QGnH0IoPCSIFaCMsycrNHw6M36mRwZp7B0VfjMKpI7NTJBR8oV7SCMzfSvgKSIZfphavhNjfv6pj0 vgod / zUGdcqYvYZNHdZW3u3u43pJWocuiIUkNKlGLHa2Cm4YnCDMQGCAyuVLWnDcXJbGbw3X4wNEyBxRU83CM n70injarcR92U7 / jZiPNfRDz5U97u24dcnkUu2GzAFWQGC7lvltekCPqsN4ITXAJCBiFUmffRKxZzE1L2JQbT0U5AqYTVzS iPsBAPUILKuaXLCpImoOAzsItcrmsyHLScycBjAhpfcIJJbEUMJW5ejnoYJSU +u4Uyifp8m613HfiwnG3ezAeIESNOFVvIS+ SjZf84EWaL1qZR6albJpwdwsRF41fdEKWh2aqcFHg55V1ezg4EbQYne5gcSBgorrWXyDMIVdS7l0TCRD TDaGCEhFifvNoWsnE8y1ZOM7c3xR +XaPucGaBrzPHCup85bEVVvP6eapEEQFOOUT1rIJwjLy3dsDmWt9epUStQ5JUjJ+ mnqsCpRFqVduVCGRSAwFKDKDDPEBYENxLRmYoFXqjxTXX0pGrcJq5V+YCdSWqb0Tzx7zkuuJ5chCBy2J /jCIFYXsQHQ2FYJUSfCX8YjA86pI+ 8VFF1K9LU0tFbdfFrenA5COyrBEyYDUkLabP7V7yLlmEKpCGL5lfHxUBkjUdWcCC7C7oaKIwDu5VU6Cz Ina4rJBZxo4MP2hb4ML7dIF8YdzBeKsZmm3K6U6DVMgHGOX2ONXHxxPaLq2Adxw9nzdfU8jyVt9PgxnM xy0og5Syal5y51z12g6BCaGpEBu3CSN5ulLxtmsFMTKuWhOPHwMwidIeW8 +ZrTMalO6MxxIHnB5c5UPYXHptsKcvepabWnYzOZBOU715EnRr+ EAsH00uOouH92MxK9XK9CTgxthxHhXMLaEv7MdxFUvCp4pDthjRKZKlKmD0qU9JOdrPRJKaySrucdUML MsgyWPKusKOPuHdz15h1rrrxLyTaM8QL /Rv5Vtvb48wh+ wjUO95gPrHWXOSKEOUVL1FrkDKF5JDjXs5ysPqRi6litDMROvFsZKwsitZxW8I8v9P9NzJ7jKUTb2mK1 22Mi5i7E7OG19N5OcB7HzYzclbsAFPYfEF7iDrr2kbWVAPZ6Pu6o6jID /I9DMo7MdQLO2WnOnNYGcgbWGiqD+ 6VuFVBzm24zCX1KWJRZSDFHNR48MAmGPNMLjwmC3iWRfp3ZNsEFDRHGrUFe8KKTrce46RQ2Tvw6mXz0t VuYzpVnAu4AxqJxpAJnRDURsIKEn2m28hnJGGixbogz2Fxuh1r +EWynbEczwsEXmPek2KUCDJ4wGdBJK9a83yUTVL3qRSlPd2hAzqlUJ1ufFP+ bpN4YqXUoGJOdpUsNLWrsedpHcqXIl9CxkgdbAN4movRUoDAEdjAwTqMwMBYkPGaFaLjs1oOLWhqRiW2 lSZupuIUuXxkRq9Ivv88auE4 + kbBzLxGFosHXaJSlYiHNLAGoPfdBB8rlmWaQrT4eqz8uiq3eVZcoTavN9x3G68bN85gC0Rv9J4fKaCL6 UeRVVf9yPrH7lrp1Cy6mlovAkt2QlLQ7HuKl6jfm8R05H4vtA43R5WgeVU6mqXBampRCTe + vEgHTAtf42t1ZhtDHfmzl7f6VW4l2jOR3VmCOCxjFeHc2TdRawRwgy4ANQoflpzHjMeFxe7LoffAkweS Hl5np991RTWoBjMPjiyzr8zqPqMASStUNRIsyuhPj4Tl +TuJNZccK8V2lK35DRgCGakn7MA7I+ Mo01dXgmQaDjfVWeAAt08deZjeclrej9bWBLotYbHY2gFhhfzwgWLD2OkbrqZ8PmzXMjqzZBx963zsQ5 CnVUkFaWOLFy8jcUxNjcy4DBMa8pKIU1vmBm6W6TXyqcx0w8B +KdfaDgizmCd6muhAYMOFc65tpiQIjzgFLrGkxaLulqrLhMhF2hGauzRJNNRjveX9/agACNpGRwC2+ GBEh0JRROxyK6IqqUnQhwPiJA+HFR6O0K+wzAlR3o4c9m1roqfBcJYPH21luAZdGD/ zRiLAyMTv8bQAGRXpVdjCgkn2nIRnlv+j/AC/BX+vlUw+J2YZbutPdUFQpm5C+ 58wl27u7zod11ejlvweArYDaKo6albdemt7eKF5QtI03aVnQNcY7bNRopcqKJRf24wSvp4iebpjlknxj la9uiHREsopEa20W6hSkAnvwFHkLsD6afV4Svy7TDDVw0FqSElVNrG8Nc3v7bi6Ho6luvZBqlRgVCsc9 W6IBJ7hMnLh4OJhsRO6CDw97BdXe + m5DptHk3P56ZfLG2mhkTsg75HxBaD92pneZqmWO1qBru2ou3yarBd4e8aXt2Mdx84DhJMUMY82HbETX5 t8tH /wu4AV8KeAwZh6zVBqUgV0uv3noy0jzphftWpPeFb3JjalAi+a1ge/ OzOei3ThHPQPpeEk6clhZc1v6gn7qguxqR5m05lTQqFmLVk1l6gq3gM/ E7D1FyIcy4sKdb0kv4vXrPQD42co0D7a0Q2APsYGRqtbs2k7n1CEFuj38qHrOMIe8cfWV3eHisBptGPs zEHWd2VNZ1lAGr5vYntkSR7EnmABLFcVGWaCXsSGYluPhEuE2cdNXem /R5dTLCCJSSga9vx06L9e6aXABrlCzSBsNVCdAgVXWtONw7Ic4xGCMnlNIZ1vlq+ eDtlg0s0fao4V8y9Ru+rymnuhBBTyeecXtBG7la70aVv3ZY+S/ DtoG0qUmfXQC7KfRM9g8Zo0ufvKkJgfuKIIG8dTf8mUSZ1bGkyiuHQEngKJVmmW+W/ 8EOtDe3ZJ8QyaV17suA1Az+s0ImS+eiidktmXq7DwGxZ8CjTutZGRZGCQTT3fQ+h/ ta0G3v3l3Y29su4w4jgxzeUvBKI4Gv4vv8ESaZwVtsChQJ8tGgnEVORpdXmFhqvKfp6H2AtGfw+ YJX1vRMirqNziypKPxozmXiuXGrLcdYPk4UODhRzCkfbEv87GenXInSr8QS3Rznd5747byctxsX1RFKB 69X8FKkLkeGEjweEhNbVGkU27Cf7pwf8A +vI9FGeqkFsqViuLwBTS++ TmjjGThLcqCSQTeTVXIVVjXvfQGxF4lIVK9wdUQChd8DzPBP0IpXetvQS2HVjOpFtmmjc3vdFrPVphf6 mMLZu1UL5UmWgqLH2iDfv6lRjRjZM8LzoFdy6FqB6xTE /AhJMweycVMPuj7dx96YRGkAV89SjFauIoG7CisroTkXdquVXOERlnc99pcup425+ U2WX24gBkkaangT1tA77J00z7qMdb/ AuNpWBnr9op3mcLvspTJATlGYJ5sJ2yHQQr6psCkU2HwXIsarya2ulvYHNEpZ93xmyddFYR5p5V9fD3s dBmiEkX7XRZLRLV8fK8UfeZ0VRJ2C4x0ig4oxBJT3bgKGo0CujCLnbkLekIqlyBiFoUCKERyFipxETxM lITjgpiRcbCOWP0hMwKzS4tBjl2EAaMrpRDedaNPniCqc6N1nB5zmcqNS62E44iiO6aAEStwcokeq6lW 7g67MAUJsvVcGKeTgLrs fS92vS7F7qjcbW8DMIrfOYXQaTHkHJkRjGGiv4Vm714NKxdPFq4O0DecxW1lRD33LWbXCtfDZz2wCbdq fCdNizoi9XXhkiAqTDAF a53iQwqfb9nYMTzC1EFQlErZItQ3/dBFTn8adE0YIu1fKT3XtH4aATUQFf0sxnD+ Fl3SyB6nEFQ7ZRapYgkrEqbbUu6v2MQ3khSov/YlllEjLETzFUX00xafDp3tR2xdsrp4DidPv/ Jdi20Py1gtNLZDuI05xUP8EV14EVoJ3tXmiQbe4VepqRoDZavMlM6rWO2qqc1BNQ4gqr4lQIbp8pPeqP fP3gw6qdLYixT3PSyKDNxmtfd8wi3g /nrMsNzcajJdxTx+ UTKRxzgmG68hnubOFtihFVO2xU39WkvEahf3xnARE4xxVvW3aypbVSYhmcKEirkq2xOJ2sNyxH5Qz6cU 1ECuQswi6YEP7gsv +Fan4313bjSy35r3MjhWYf1a8QV+INHvvD+h1VjPtEyUs8yfk1kebGFEZ18ycVginuG0T6l4WInJ+ QjnKHa8r53OpL7trJm9N5CX90I4mAUwdPG57Winecej2RnjNkimf321bh1Buwu3enav5X07LwWvb/ 1I7THZ1i8SSud+HJ/iTq8+wkJ2hjxEM2Ml0o25NGwyuwDAM5paVpzAkSfYXOQz2FwPl+ZtJj3VKn+ fssxed6yYGO4SYHVo1jP2SACnAFIkcKJXfHLTOebcxp0v5zvOT43uxdd7QbiprAEoz8+qO5BIPCx8F+ HtTvdEPizRfGs/w5+MPgvStbtp/Fo7G1WeNk75e+Kwq2AxkPm4L6A3b/ QiJNPQRzvmzd14brMP7JAjx1Kddk4FUGIiI1HwA/A50i6NGyA9RUaB1X4E+OKsmOi8dihM1afI7Q8rn/ p/xHRz3J8Dk7WqYApdL/J97rmh6BD5gjkB7fNiXjAknHh5yw7kDwMYlM47P/ 4DtKDbGaQ0T4Ui7Jfdl3bicz82dODvRkf3lelxWzThr56xfywaf61IP4nqqQd2KNACq+Ew+ AkpxMYQ9tfDO35AgZbFZ5bPma98IjhR3rtA5CaNy5oQbKnIaF/tNaXo3KRKbI95V/INb1hwqSv1+ jhlSrkwuHNZrOQtzF7Xv6mYxIn7bUqcwHCmV31a2z4hkodhzb+L/LjzJedw9z7DTb15hxWBYgBuARtYN /rxmOmti4UA0rL16tvS85FQMx3/tc0Ym/ LEscFeSCXi7ep9Dj20j40cCvR91HJwXhu6s6TxgPqg7CDG9uCI1U7FDjJF0vP2S2GLTurwZ7KqP53b1r qw3liEjEbfzAXrVZy8ixsXHviIPBZNOOHVvfbki0EA0YFrWdCXNcRKiC45deVyVkJ7mp0GoiYh5KbsZh xjd0Tvo0ym +W39GK1cvgPI54grTEJNmYm3xDRwpyikOD3cX8ESxjHUTv50+ Fs36QTmyCXmA6fol9nR1mqZp0YlE5eus2e4GB9i1IsNisIadJKQ9VcuFwZLclasrSoCUYgRlKITE24oI M3DgdbGGRfVCr3 /BF0tUGNHg+FXr97v+CgGh+F/EMyeZFl0Mh9WjKhNKvuftBktmR/V9uR3BvSImDETh3sb3dno/ hMebIkg3fIAop6peJLrtBu7eYhS7inJPFAipoRlD5TT3wJglsMKjDzQQYyKwnqMJoNFEV52F7Hcz/ jjKJfcjjVeguqskiuw1hT326HHyGX5i/YrwwEgm6wjALEah5iM70LbaDJxokePgyY++l9+l8J+ U2P0B8nfaB39BAxGkvqCaXvajXO0GDO6aca4H2kX8jGp7l6bcwA6vWIIZQJK31GuoIPZZwTofq+m+ CRJ0Y9ts0/NMB8M2v4l/ SA2F8TJ7LTqKF34RouxAPRKE3hB7svLsmVf3vhm4q2u5refw3wX1JsCqy2ipJnzCmVKTbXrNUflUM3jk tY1031HskcX /X93k71czMFS2LyxZmUeLgqOA0ZsCmMbtxvJQqrufGBJknX5al0KYRrJZftJWGt8VxBfEahgb+ 9GHhd83trcOZvCQaiLDrCK+eTu+CdJibaxp80cJ5E54djvKqIBZUHf1s1etWN4z91f7tv74LZ1E+ IV5EXusczR9TQugMOUUZdDWdLYq5BseFJHd927+2ccBJ3LVlnli0Rxg9HFbDXWV+IlaGCVSFyTHlAo+ EVXrjFhCGKJk9Vo4E5JAYx0mVVoOVZaNDU32Q1KTvSa1mhuKkJEayqYv31j9aftrPOlq0ocOVjZ/ vXrEdD7WDodXlXfqmdlIfnx8rxCx1XJKtBnoUcRfnIk01kQnl2bC9yQx3AZgsQs46qdquAU3wWqMfJdu RQuenkajoW8Yag8zaS62z4xDF0LOH2sQjoAHYGYT8Kthfc57I2Tza5pS9S3a6J /AIdeGfiV+zN+1HrE/n4Q69U01JtYHqYjo4u3S1zUx+H/ EBTIuNKllh14TfV8edg1b4hvwIDQnshgv7M1j+ hCPEkWC4sR9YJIMfY5pwvRlffHJH8fZiuLZZYz9ssikXu7c2oSx6kyuc26VjmxE7i5atZxsmH5b443wy sahB4f +K3wg/Cb2JxE8t7Z+AMvQgkzjkbhJesG4NB96Pbmhqlj7h+ WZyjUq7A2TVLxiNx2ZJx831jrDzkT52Iy8JQc+F9rqB6rk6JWoW+ Qw08xl086A6B5Vss6o73DwUxmneDhqoiDFanbNIJvo/ rD3Zc68noekp1mcKpZRB1msHPjX2zuadiRmvnz4OradkVrdxDqHaVXBRu9yjaTROGlg7Js0Z5rG2HERw Ta /vZxu9AiVd+OEFkI8iumPGvKVPrsMUTxuuhih2fhG7I3MT9b+Eu1tstnv6/ yldHhqAJvyIK7xfJl7TO6wF+YUksTTa1bDGaI5jRVAIn2dybpW49+L3xs+ J8mjH5YAv4chUiAn4mlZZ2sOxXqHB6xcRwGtpf4lHcX5Xiao58JiWVj5E7sQ7vEN5R5infehiIG2TxWp K0twERPIgUimQ5K5ryV6jL0lIQqmFKrGROLtL4dGjkYxnxs2nWuSUVPjFT +cgLQeC4B1+p7g7PVLTa/qmleH/ RjiAFhT00X1Q2z15ffDy9maig8ar72bU9L2hYpUCos5AnzBvUxBCfyJsqkoujikBbsrAqZ/E19pTR+ l6Sj1Rgi96cmAPQsZSZqPxGdCyIn50hyASpPLbfKadU6dwOKAUwOs8ITdQsXc1iqKOUeCUke+ klpZ2DwxfrUtwpgU/Dj4S+NPipqHiDT/Ccwc3dQ+ KrXSWQifABUq6won3RtwGSFGT3l1LiNqzfVOSEQgSkiplOWc2bPcjm1jcQrNy9zLCsiRfaOM0PBgIIXr MtNJ1 +55O0QbOWAGESwq03t1w1LkY3nQ/C2n2+5q5rfpZrha9Bs7zl0+raiFgm/K80OeUwn2QvZ/wAQ/ CgWJbC3UTC648j0N2RbtsVt+XBT2LNyva52apD4ON7AMXpz6hkt6OE+ 3rFMcSn3emXuz5n7MhqkMkDSgvAyw+z54G+H3xS+LepeK/iZ8RL/ ABEpM4c6N5jevUx1HL4ryxm1q1BJmeRsYoxEgtm10NMSY3QcaL7W18RrUBDr8F9KO0gf6y7/ wND7aVvsQAFu9CELZd28FDVR8nGdgFy1w2XohXaIQSyvmPQBZZ3uuBJzsU+ iLVTEp1PpdXInHxnNSGThQnd2W0vI9QjCq6HyD4/2X/gH8NNB+YxdQLfM2xk6u86emzWDbki5RyW3l6w +UJid3tclikzfKw7AeGTzS/a5hh75YS1jqjJ761tU3Bem1g/9X5qXiduzex2u/DfhmfW/izqXi/ DEOnv1t+0Pp+r3/ijxtc+FDsS5pv6409zu1t6ky3q0H/Cxdaw3ynAStW6I5gj3ALyRIq6Pvfmh5L/ RMtYdE6AzZ4aCtP/FOsXnimDWpG/RX/gnf+xtY+Nv2i/eW1Fos3oNe5if5L5Rpi3p4+ iE8SgFX6z8pt7XoBm86JqfFizri9o3V7bYddwtg3ek5Fqo7Ri3Qk0vnlsg6qc3vBP1ru/KER5u7H/ HBMEO5eAPL8M01wRmts/5KG5a0KsYo+ DAUIywMx7CD1l1SyF8ye8PIk68MUGYe6l6jyOy61p2YAiTBEmCAZp711E+ EaQOxDEcIfDmohGe7UIWCJ0OM0pUziKFwkjgYl0y1hjEgxpk11S7VYFnYZnmurXiWHovHFYuCLidHHln sUNWvFHhHfJVskkdHhIA9jV1BbJfoifbtcF7aKb +S9oe3D7EV5j4Rej337juEkdn5o3c2b4Ks9uliyx+L5P+ Wun0N95gGbPbyp3oFHDsolV1YvborK9sPQehovAV1p/aKqcFvGx2pnHl/v8AL+rt7Bkrv/ u0zU5moGoHr++G/m2S2y6e+YrnBD8e7YP7DaKSYssxtv7O/sbjfcdxw6mron8hNBhbTnaIemH+ Dbg71jqjiB61D8Q6Y8aVl39KHZ5r/JYBaRk8lFnQkK/wm35G27y0HbmO3e2W8sm9OnQjZh34ghobS03h +h3IxLU0iBiRubo9WnCYC9oMMXPJGM50N/SfhZ+0n4l+BviKTQ/i78L9P+ Dbcuuzg3L5TjQVyObnO2u083q1A7tdJnynp5xc6LiZ1ClpIr55d6kAzlz4j/ieOHULmztt+ eLyfmNovdfmieSh2mmH6JJt+IrmJL4SN9Vz3B5CBV0Wkng2+ 6B2Fp6UrAvcGENseXHgkFYcS3YQYQohwYi8eJqEnyXYYzNk186kgBMOA4PJQGJrh/Pnt3ytofAhq57VH /Npy2k9/bevyzXXRtV1aJEePfix8M53l0umi+MrdmSipQorEaEK5TILjP1J380gqd5z6T/ 9BGgM8VScgmpozwI1oXvcl9HZLH2GE+3cF9dYVdZ2mYoQwFKBLe087ozO/xU8P1GEC3w3O2QJzH/gvV/ DNyp4zfltG3KnpW93ue3cb7g47xVG7p+ hp3ldngnPwc4Zqe0J9usYvAKzXslXmXclMPogomeBx3U9b9e0L0D4TTlL7F30pd72VAB5fgHfksmj7vq u3mgj6wYFJfq2YOAWmMEIz1zsmpLFIN1kiOrTDtBfl3AOQIUUsPqg0LuPj2s7cKrJGvet4 +rb3uyFRkFOstHfSBcz5DXAXJI8epXn+VZvGzNA3QxE1lj0y3YuACs0i3+Ijbt09kdns/hI/iD4N/ tbUvEukprPi+Qr3fjZFev+hrI0J0IAKpSS0fxrxubwcRaJH7B+IIgFoGw2oxjrc89rr7GUbIqd+ KGrXmheLPD+epuaS400jlCG8R5ojkdiX6l1sDdzmVcMVqNr6m8Xn/f1ze1COxX9s5SYe0ohOKpAf+ pXQPN+OPhn8K/dy5PC8Sbw7S5CjT1x5Cb3F7e+LBqTxVpXZuqTxf56GoArwCG+ z9Mu6Jrps438UWyK6tY7zoJFWjknayg+RqLV1ZMnPtMJckp2R16fBlU0WdUfu48C/u6SbWqWER/ 1IZR2LY5IyXcj4SBqUQy0ZCgH6TNNu9F+V2MdHD94fLyj9ZcjAoX46L8A8e/ 8k86B94bi10vzjCuRjVMcPXHh+ 5znMGTDdjJJNKeHefXfkLtujvf926bmh5i8UJF9rRxIjIiLp2zUQAkNPKyfHlXhGyMg7UhwzzghBst/ wy3PdbxDOWXgdPGN9W+IPw3+KOhnPT1i/YhuXqOd6R/NAhnvScpkN4KrZSpmH7Z8VzQwMTlsynbMz31/ WkQdscGz5oVkSyoy0s2thJ9io9te/Qno1bFbvkz+Q79Z9QWlsUqP+1R6Kujp4sh+ ThxIirzLKQXgyW5SfzskWtbR4AoRQdimNbSc+Kpp2OLWGKpQ8zUw6TwYm+08NeI/Jgu6Err22p+ 2EqwYgwt2AuN48+f6j8hnHI194yG4b5W89h39ibQrYScgNGNN+bIqx0ijtm3BjPp75ede7tw0/ GwWgm8vbznEKXhl88pjrd713txz+kRRwE0GV/xf+JWq7L9KCwECz+MKPGb2lNWppnl/ 5g2fwWyFndQkpUjA9pbqd+O9Rn9giX6xbeFGfsXdDMd6wsNoUf+ 5kK1RXNwzRgOnh1n7x2x8BS0g67qkY8dLxTvxXqj0I3iYnWZN7OjbBynpSXenzieyNhhH5QR+ pqaHsTT0xJf7Lzqv7yRpTvm3mRlX2fYIN3zdv02BlHlQtLso8+JQeY6abbQgp61y+06832LLSenpbhs+ KLfTrLXZrz+tHGUtmv7afGtotWpE121oMrPaI59X+mttDk0+G8v7u/ skAj9vT4zrOZmGIsQFrJPahfpgA0NHgiGMQYPZ8fLkkHtyMhFavCe7NuQ2toqtK5D56jBSjpa8SMtZl9 tJkyRRnfFWr3Gp0R2gtvQMub8Xr5BK2X8gpp9oBazYpWQmDQnmLzq5HineuAm8829rqhN0i /v6uc551nuDd8aFRmHnRL8S8NLm3gVvjpzQMqarLCfb1kObOU04V0va+ Axxic26hHR7fvMTagqMmBdrjvNDPqYt2YZTqagO0YYkgXN2FziR6U0EEm6TzFvEg+m8rUk535SgxgM+ mZ27pQpZ6xsjDeNIkisJuOxYQxpEW+VjMkF+0l4drO0Wgn+ AOtbXiK1WqYagIyfw8AmFYdEaNmqK0kkOXr4V2Tpyn/g3oy9hef/iaCTh0MsylYewPyhu9nvTz+ LGcIp6pZ8/s2G/leyn8R4NoE/jT4b+Atry7N8bwq2IAKPd09XvB4E7DeElbATRWN8AI+ FiV9rh1lkz2hv9a+J2UumL1sIVoL4FO5QUMHxV0q6OhTq8IjggBk2dsE0ij9wX/rur/ mNQ0hOfqMdCCqy9SIbOmUXRFs+2iMkapg1H1Zf/ IEpgwXNkVdevqKdn2EHmRNIMcAuDBYNElMKf5Kj9HgUg3S4UOX9txdFq6I1ZpY04/j3Ywx/ NB2dOfXmgbXgVgHrSAAjuHM0Uiyb7dY3KYtOFmphirEyxZmdVL5WvyGG+ Cl9uL5EvBIOO9twbEfl8KUAvBFgNMe9/ DocdIl46FdwaeCUVxnqTwjvK0SxWbAESqGplJ4HYcGN0b7CWuKLFf+ udtLQ4Ql5m951zhDDuZntLhaeCJWs7TWGP/TrTQpkPR0lTG+yUHCA1ayaRwYY6cnFCBw6nt72szk+ TnGV17H7wnhXbvv13gAYQ3JDWGkgIdFZWskhdr4oXPCsKbalOS1eBtZ0u6qO86IUAhDBZ0XLCA9WHVNP CjaJXRlEEu3wG4g9wSZdYdco3xnFpYMWd7AKaz8LvOVHzlVJceVWmBAYCYbypy2AkEJ2D10EW8e9 +KiffQAxPEENienl9a+XVXXz/UJAKC9PZ87WxoCzy/wA/QfNqaQwgghH+ guKiseebEh4wRXfPEQQToQ3mK5pPScllblo4PTINWnb3TZHs2odgCstLySkysJ+ GpgnnSYk9Gpp0yOSkjqB81naKw6m5LwshxJL8WCLp91bhUQX1XsdY8TJity/ wfqdR68IHt1Wrmps03QZ8+T/ CZjBrfXzXrANdowJsDrTBBTYJDaJKCGtP02ICIuHK8NKwSlcrmfHXebrKiBcM7mtmZLJSx1p8VUYUt5o 1gcJkcuKQ01wFINMqLlF2PtRyR9X0gPyLVcTZyVkFTY4zP38MVv5kDiyHh8j7 +lo328ZzD7lysSxhKuQw7EimpsrrmUT531v0oCfaYBaqhVUmwgmQe/ pD8PSCPhplKHqlLM1Iirch2OIZzRmTEXPH+ MZBkrdCg24XFFTSTsnA0r5oC79TannSNtCrPeVHI55yizJcZnBZMRaJZvvlOIn+ eRroM0HDcBatI3AXazRsTkWpuIEWR2FAZAlqDk/C8anwcQsC5gl38XJWJRlq0j17me79m8w00pKh1R+ MHm1VrOv7jouCc7ggbrPzELWHfStPHn6r7TNrJjLAkRgxNeDnL5JSvrj+p+ Dbj9HxKOkoUdXCD2pxZPywjsIKambZlMHPzvdraMVykU6oNRR6SBS1q0kAiUys7BzSZheHXXQ+ 6NEHt02sZ2HwL2P83gdonBDfqej1lPfer10meW4iX6GV5AwgJ+ SIHuFluvSsZxPbuelLp4y5zunB3gvfsydO0kyaysuyMqQrdcnpruv1nfifs8CHEcC+ yp901cP1JkIe61iTeZWEDf5l9lTy7PScc6zbRaASL6TGEgH6zo8OCzftPPvAQ6xoMBFQbA92NPo7lZaE JMFes6mIOuNVoqxchMUCQeqzi5dXl9G0Q94ayWjHxqj4DKvIicXdIKGX9c5QMGdotJAQIajAMNfYer /B4hwwt0fPMxEXtdMAFvGjO57Ph0yIHYWC+DAUnLQAFCZPTl2iEt8kR8iiO/ VSMFxsr818F8iEiwLPRcCvnW1As4skGyE3gc0t06mw6mxao3BCNv5VwqZ7pGhOq5euW+U+ RqYuoHjVtfMX6F0aJVsHwkhCQfE/NNd2MnbFe88U4zNX1rMpte9S+1NIil+y+ GrcHho5FEQDBAtmP3QLXEM4f9stQQL377QhekCLMouGSXvZx4AH5NFuGOD6E/YwnHostFschB7VrXl+o +UxRPnRp2izK23Hnwgj/ hpDbUKysJSCceEcUob2B5UjXwUSy56Nk4oQG9BV1UUO1pGYpJj60f2ace1ObH5amatzYfFx6I9a00Pnt ZRs07q +gyFWecl0XhDyzZSX+8AbeCCdn2qm1NrIBgRYGjpoBNp0EvyZ9IxjtxlwFZnTb9vNZK+fbueC/B/ fDd6Lrcd9yUNq+H47Xh6CU1WijBNnN4p3EukfvnoKw4nPPUBBh/ XCQaAnXjF7m7d3A9JWjP6OU942zgSoa2ibFWnSF7yXjonhTKKO7/lKgIhlWM+ HSNFW4TgMMefZz7bRcyP8DHjcatlr4f2qkc+ eYXc6brKNlJI8RglzZmxy62x2cO9SOtutQXKctcA4PczOQJkztB+ Z1ied2nx9v0Sj5N2HG0NcIdAdQfyAB0yC51P0gHr0b6C3qWdmG/EumQ+KuGeC5YTJh+ 2HyO9w73beqzneEo8Yg2kdtOIihb8gdf8LLBgBRCYj2tp9lzKtX4qit9x8wNe3Zp9xZ2hn3K6UrhLfsq MMljdzyXFw1 +knZ9MrrQSd2sWv3xwenNCRwJ6/ 4n8u6ZvfCP0jT4Y3zupzY2ZCwEF3RIiqcF30fft8KIKFtzuTVUZYjzL7IkeV9hVWwwwbj3g12Jsfx/ A92kdaDzbz3vJT6a9jWkXXd3XfBe81InBSdObt3LZ9TX9y7gPUOJekiQrj8rc7FhuwLZmTJo0o7rpxpp Bk7ooRPWt6Ke4udaL75Wb914kXdL51rYpr4p6pQCorDVjw5T8FvNzKRzuuvxaYT1FcUlGNpRXDyzzqBi F /gabR2F0FeAr+yxdRofSfpGmDS32Ymt4RwH8kAbRnpwfEPZPyG6ewtm1phTBTAh9tFoJTefOoeK+ LzXhwrsXYYqXIBOfwpOMAZzyeV8iPS9uRkmsR4Wb1lnWH7Jn+K/Joshua+ Z0M5yYaR1ccrfS5XLqbl8z7sU38fqTt8DvsnqyJC0sE9yoC4dpiqeNo6oF7o4Quo5aJ3oJP7do6u53Pi Xp2FVfFWdaAbdHSpHCBjj2jKf4yJgFhCFokX4nobefSju +Kpy17W0jGajRpc+ LFVmpOv8wMVIado5pCb73Ud3mew16xC6fjidDXaceaVsnaPZrLZAndBQOSwq0Ck4SvoSsf7g9wkEcknc NPjtUNlbaets +jolqFMETQbN1dk7mg3FKyXrCNv8eoiCUdR+ DLwfhhvf88iL3plDzRYgR4e2ykbQtWXnSvxdTUlHadX4H1SXdeAEV3ixicAapqIcmfD4EXOI/ zT1Z7zlHmuQg0Nf9YpAlSo5Jsn27WsmT9ihYvWLhh0E90GSr6duC3iLHDzH+ hqsbfZIdHzcT9PmlLHZU3Or25erKkjR0Lz8U3mF60UFalk+ JOL0wMTuCEPfv1lATkr3JjQyZuWpC3LHS4rh7RddpPinzDbxK+ IC4bJXm54xXkubTnlymgyyHVbh9uPznrEZ7D1cTRrnWPz6cfHBRnp32zxos6owlxG3fu22C9WthJaFR2 mgTv7tB1nzaTISCSBlDIQG8iKTpMXChfu3DjA09yf +l1BQU93d6pDY36tDhTxIZkjunQ1k9oU416DLrmd4xgHmUqFjIlIb1bgrqEe1HhEbb+ RPw8krwnL3QqZaoGVh7hXJ5HK2IMiCJJ4rrUrcYgORzv5cU4EwInM39nL+ QhcMOO4T4s9dyyjIt0euo7EEzml4sV8nTBzGLg0OGFFBfM15TEG5h1l+ 63l004wvmOuZll1o86GdKC3zZn3tnagMkXdK8Mbh70fx/aMs4ASzeykO4vdegGqe4meLETduKdpmt/ yJb9gI9yctnRgk4niT5O9oOyEQaadG9joLNjmzWHas3rqKytG0xMOT0uyhO9iLXXv1M5jim+ pZcelo3skqW8/ErtN1DDWbhvoBx+8zL6JD7e2kUiHSdXIdJS6nbXjlBNDPPMpVMOO23rfYARe+H9t+ 8V2U2leAnDgfD0jiIzxnXndY5EyRhnk5faWKdW7zlVXqmCRqD9+ gogXW1w0jkZ5uLmCIEDRMzN2QyylDpArV5SZCQ7X3Fia4atmu7Ya7K+qs/bNxjemEmyi8RL1mdT/ rR9PM4J3XLYqWcKDeMY+Ciiq747lhs4kqXe3xi5x+ RqP3Ctgz9Mn4IqxQoUgNwSTFXnxCyzJX8q5VgFkP1ziCSWUvAOeXosmlbYYcSms+ t37V1cNeiksuveItHbvZ+9ra8cietVLn5lbmKWafXOBAalaj1lucLmkwywmI9F3+ OSlz7UP7pc4r5p6p75u4UI0M5T7alOTftlh7C5tjw7omDcmEA0ypChhoOPrpCcQdwfw/qfAVv8ePS5O+ Mvi/5bkxV1N5RTf42m0o/Zibq8PviByDJJ1npFNa/ r8JtON0Y9RGgw1eMQyyUCXsrACZX24ar1HuAGT3mfgWDh36SsayRtw2rGD51oqy+ vCqfqOR2GvYF5gRZggECyTOX9NXQhOPkRjaBJGOxZUiRktf34Rcw47dgFx+FYtbktvC5/ kHUi4ZqKLmAorN8gfG6HwBNcNf1kmODabF2XnoES8T1VLZnki4IJ1T0PKdcbf52WC5n+ UA6LdWInpJQl8y8opaagjTAzet1oh0zphwLAGQrW1PMdDG7SeFXuACEnfE+ h4pimJpDnrkV9JwzdRzs1F4qahTm92E/a5zCUhgQmlIA9bNQkh3eaMDH5r2bPR5mwBcLCd/hx+0R4x8B +UJ6PP48uoGe+doJULnjxMHKOkOfwKvdWuPyVt3wCooQFtcacsU6C2cpyqfM0QWClNsPgXUQbX8QkKf+ KMrLZyu/U9M3MFreBmYR9eEkvtcwvCICXwoEQn9A9n07RYoFtaiIpD9phQa2f5p/Z++Lh8HaCbcoKJDU +JOZl9XfiNyQfDivcqC6mBIKf+6E1tP4Ov2bZfBxTCLsUuGKDLfytLGqwzsr+ GuUmdOlz6OghF7DrE9NrFoEwin0H865t1SI/JKTpigTqeymwGyzGAODPFBC4PIoTLOWOJfT+ sht350p9Hx70NkU3mJ9dYySQceF3pfUc1omr27AoQxTw23v4dlg1jlhN3H3NIN9K+ jMpjEM8CVKWILvsWoeQHo5/jB0luOaSpjxV4GeG8OM5dj+srK2hS/ qms8ZCjHIT7W5aArJaCRYZmxHpXseBZu9eScrovZM5/D770OhNO8m2yoN1do8FEDmXIrPmfnC95EL3+ u07k7IT9/ Ywvv19DOJbyKsVIxKhJFgMaZhbUePlbTBqEBbKcyN9u5SlzKQHkmeWKxr1MFhOmlHjweUxaj0c6dgNeD JZ2 + k3trdt6IvYn5aXagmZPXS0UJwi31Kg78QgIxys13xdnrkvGe0FRonF5f7P6pp5ZYkD5bAjS06Xwd6TFr sSYyHisNqqkbhvaJSCnyye85rR5DhW /JKuYSMLi3SqZm7QLnZwVDtwnwCf1tmoWcgCRgR7qjrycX6n4bek4UUecjMIN4qlO+U5rIjCbqya3D+ OC2Rs8GRrAWtvZKZ5hYs77sx1T7phvn7A26a2EzJVzmq3RgTgNfNn5gJXHjlUxJhlNndVaNeWIRrfTAK lyp /yBIPBymlKVff4Cc8nvf+nmAYZRNytVIv7ZAsWMHSPxgB5kKht2676dJPVb0/ oQTBfZ949v4Eqw2VNImr/P9dyvXsN3NEeP9atid72cZjZ8rEnRYsHH9Ij9sqSaDNiSgVNaw4Tnm2H5Q1 /zrfr6JzmL35jpO4o8xk9QkJm+AT2N/rsNtqdtpFoLa+ vTocei97tWFV0Nz4BMZ1xJkJos7OLBR6nuhF8ysI+po0F3rBhX6ux62OdoG5p616ko48p28J18gc/ KSg4O6bp6gWD0knvkVhlc8Nm4PuccPJwjxN/NzIk4llh/of8xVALV+ ZbsS3A1Pg41oleT1Yr2N8xaPerNQQ9d8k9tM1lGuDbJ4g1p63oOGluf61FzNjyQALnh4mpcFxtB20BYF qtCdSVXmqKo +aXueAa0Skp5I8uyuE6u1W5o/cKAp4rdLBGWt2pVA3cVD5ujmkvpw1y0+ 1YS7NzByykdeHpy94avWedF6IugHrRd3h0myFvHqWphgrs59jMfAvhvj1okm1pIDa/ iYwtlK8faBiDUfD7tPisTFEumhat1z5U5+ rX85uqQquG1oqCYhmoFkTbnhcmA49Xd98axaILFsZmNPvmuagd7B8sh9ygdCsi1ZehDrE7v28gslxY/ aJ2+vlzuBgpyhUhU8wtr1c2l4vCiYiKFpOnITcSuEa50S1nDMCfKj3I9JX6gPl/ Ucs2qMi1tVI3meeZQRZeApdc5TAdSi1YJx7YY680vpcyKphLAQTirbJY88sGUwyN1IVJJDbooUzsVhu9 2kY +4xEPIQ11o7vaRii0HmfhA84/wAOj/LpTaT+Pp8gzEc81/ hdYOncKra1qN1c7fvFQmeNMwaLJMsZIyKaHMmfWaOg4RxOrQpvbv+ NnaZNZ6JLI25Cf3RIVmFetjjPwD4IlDnMgKBAUIWgiQ5ttrUJacX9WD6WIxpjDL49PWdrWLjSxveHmbC SGTmoaE1ZYINcI8VR7KKYd2nUMfho3Dt98B95y +l4Ze0NnA3PfhA28TvDfnp9/nRj81qZ/Y/ 0G9iWSJIbpUYvJyZLfx3scCFFDYKSAnCmMrvQiDqode5kqZ3AaozHGiXYFkz7na2N/ Y9CBhXn2SqmZaimT3tbLiQAZa/ 1czupkCHoknAiqONotOPutipIE5BJQRXnXtmOFinK3cRLaGkUJ9FQrQblCEqy7JUnu3POif8Vahj0o2s a4H8ld71OAmJCvoDNU1o91932XkH4l4zVQ9N /2SC+pSDAPqSZIUxZAaqxacXzjwqwziAzqv46MaiiF6i+ pdvwTr0LfT2j74hp0xRPAEfqCEkBP84g4xJ4yHFQnUMCy9qJzVoJUrkV7+ RVoFL02oKieZwvMb538MzGY8Gi0RM6BeOgasipDuJAfrkXzp5HL2fuCpAR0YtpWOrEh1p9ZQd+ 8pnTU9amhKSA7d8Zu5VRg3T593ansd2u/ kv2q1uuUvYpsrR6WaZc0SGxTia4AwPII43hhqqMIj6SKQfla0xLcZj/sa+MIF/ 8dTlXv1zv2e5hW6QVMuSGPNpTQEtwNpf3NuCHsj/ u2o9E7XIsQwCXMTeTo1fyVzUqUWulL5ci5vnqte9w8VLw/D4FwWrNDWTZGDGmHFIQ6bcpFPWPNXn/ 1Vcrl0hZ3ovmu/S/IypibtxE0Gd2oT5nx4ea2q+i3+x6O16HroyrwLmD60l10vWznepiQOM+ CEgciHxNJDWRW1qveASpBCpTPh3GMI4T/uupDOsNmVZ70O2y4y6KX3sQSg1tT4RhMK61I0GaLzr/qCk+ NKwIPHsKgHACAHoSUe6tcHpmaE2dJN5pxeNPW9A4Fd3IgrsUaE0JF0jNLMN2+ 2iNWgxAKGIqHTqJJnrx8FKmBm2YO4r9wssEM7JR1r0f4NJq+9XXT7k/v1P5db/ 3gp5uScjAfSm9LxI7ylLHMpwvFt23Hmkaewotp+FrQPw5Dn+ zue5sZaDPAG3gQAzRi45NKyVCaIwRJsmFr9yW2CA7eNmaxUjHlT5HJplF19ED7dNkLiGyfELycXZQyqd NtIVaFdTZIFrSi8S7IgOnH4gNMgDMjpK1IRjhgBcjJfsXcO56dwgMXIGj3ppIVbg /Afkm9yV58mw9VXoPV5dh6rguGsYR960vo5j1kbF+ TgPB4rPl6wi6z0Ga8bOgRSczkpfBcXSeeNGLbuIaABgqzqBGIZSZjQeXuw+ 6TsFainaeVz7MZMB3Wx6AgNkDFCOdZPR4wkUC5+ZBJkndFlRj+pe5+ HCaKULiOJLH7g8wQjYOLNu9bGptaShK+5GMeKOienPd2auLOBw+hSVfeYu3hg1lhytH/ FdBgp1wi2MFszuiovQOAFb8em3AmHdMU4eL4dK880M98TmhFaXFISqrKQO44Mp8ayvz3b+bWLT/ AImLNE+ gdAQ3fA8r3fjKAlUcNWXIAaOQWhJETotVFvmOjwruYx4H31K9YfHn29PExX38ZsJvxKTboRm0obAMxif YglAy1 +9Gp/y9zPsf2ezLfyGcNfBlRq9BZbQenOhUEUBeoFOnqrA2dg/ 5SOlvsVrUJK8k0USuAKlXN0NwNOUioZ/XRRu0y8gHeiBSrMzIvlCcmy4JkUSi58WzJNujKSkVEIwIq/ GhlzKiV794+/ fCiw6ImebciZ2ku0ouRfaLB8YN4BGe5eLGRVJbrtSCFB8PuOYv8EQnK2g5FZqp6nSH0WxGW9Oyyv4eZK QCq1zU6O +EKRuAIx+coftg6sRUYCUawTpWoW2535ONXdDstuRUq+QDMpdRkIqp5a9L/ wo0LzNnjm4PkTc3RkD1qiQ6mHk1AWoGsq4FTKJnnMkr9nuuyi00oOrSTrPBTyv6yaXdsn6tb5VIgtUO4 ffhDox9Bmzf1HWQjRsC3fs6faa3fgkBOR9vxXIr3lt +YXiS7+wZBPoDOPUBM1fNT+ E1fAKMld8Ol9JcFJxDWr4lafG5xj4bPDq4Adw0s5jnyKBlyi5PHdPBVSHTQ7bhqXptgqYtmc4Y7pnj++ P/AATZ3M+mYks9ngiI96AuTBGpUHbbwUmUYTfwUOWuuXBcLWZ1n+ FQCdEiTqzhlKpDfDDnSngYU4vsipcMENrD0Jt/zlkgtALYsrnnJooTrVF1nCQiHcL/ DcSonHI5qxR6Ja70lwJXPNf7pXixEksUHrM7BRTDwD1QCfGpr+CUm3va59lgncHb5nG+ M7KyYeLfityn2JHQ1qKhaoW8YPCdsW9ceWaROZe7DIZEAPhxAk9iwvuTEMX+ 7rSm4R2sujovxjZATIDEzSaIgEy/UWWklRWrSScpPa0vbE/ngeZWDKRuKjzFCyR/ y2MiQjM6kYc8oa07fE9Dn6e/xNVGxmMm+3eJlePa/lNpnOP8Zz/c8O0JrQmHZQPvYCdmxPGA77ob++ kJq9eRREGh295tsBQ46S395jmodrS+W1TRknlQsamyWk4FwPRSrDTQxmZzPoib6k7+ 7MV7ixbLu0ze9RAGlP3C5q7AkYob9xcOaBETDKwdbRK95eYn970nGZpN4uF5G8C27L5SOHVquFrxdlgK CHCtAoMADhQxV8dnbzVylSPe4kjISVdav0AY +E3joXeFy8rgiodSqyFKy9DSqKHhoPNtGcV6oFgpOD5k61Q9iw3beJ8AmXI/ KYKTd8oLt2CZciPwZ22uuX2/B0N9cDqA1qtSaPM+ 6AgXax7IAttuuJfe7kVVAxE0fFk21jij6HgVeGplwhY1gV8fg2hfzgIfBHKvyODxm1UspGckhYDnqTOf Cc4vgnhRLbY6bBMT5wsskshuNU5XBmVn2PgWRXWOmi0t8PB3Wn007Ge5euwoGTdLrE97HTEnxfZbzHtu NlCkFHZE1ol9OEaY2n2U38j /njUSalpLVdNUra2/ tOJ6sIpIidWywoWafL6edeEQ8OsdtkNsSPjaXOOzIDpbmxgjqdwOLdpb99wuk6dY+ xuokJdNzNdkdEAobqMuU0IrPmGBBLnsXJbS8n411mZ7puEW923CKVLYGjOl2CisdXfenMGUaUBDZ9Gz5 Dc6r94XBHYxKfnuzdBQoq5McWdMjHcuX +WhNL2OAvPRO+/ZLGJhyqbxtQYj3RchybwWm9sTt7b2p411G5FqhwKHKAfRqCHvv2kwz8xv08/zKEF6t /lFJtGc2qbzFrv+/r9nnYGJzlsBd9rvqCY1NzuRuW4iCSwSa+Y+IwI/ 9KicmFcEzlcSlRySrItlOp8OBBpqRFmqRsvX4d6uA5gco2Dk68Vx3eyf12SeCC6LHkhyM68yCmOEnY6f hWFCrW8s9Szn8drEF +pEKtpAvtvSZNCCvKL7iMtcWFOHPkXR3TwAONuJZ0AVK6XnZejOX22O6HZj/m+ 7O3kyhmw7LhFVlIUf6t+ 7VjdEl4uegdq8N4WuX3LhKyKG37BJkwH9hatiykkebQbTHh475T15p6xLXq9KYWpgHAwHtGvJCtz3RPV NhzoYzb5RxNTqIhh5dem5x3pPk0ldqjWtXZXvM0VGM3LiEDDnk2T0PPyDMxLDTpIw7V861QQBTG8cOUt GusTzTonC4hEWzF7AZnNMDORuEoZp0MjfqFjv7U6xR7zwVesVI8thnZkx s5zwmIpD5cGEoDGcbbiCJoH5s+ eUltszQR7w673H7pl454kV0l46Ji1XXs95Dgz61j7iiIET4feCI7z9o1Wfh30+ Gea6qRx9jvFNJG2czlpi14Z5ixiT36WNjVGkp1ngQKFB7PcyAyT2sYTeGejviMLrXy/xygi1+ 26323zZ4mfEKOg+HUS2hX68ikySBgXEpdxaQsDisHSO8muG36wpCYiGt7uita9Om9yk0+ t4lc9n2wOPb46KFYUUqc9VHTYxM96Re5hjPgN6ini8d5Ij/ONt5/52+ TgW8tNimA3c2TgmcpakvvK2f8VRUqMD5ia71HQnk1ufhkA7zrmonv9pmxd74TcVyK/ VrKiScWKogicjm5wNYPxo28Zyy+ o6m3o8XgkYsOZKuSA8e70zjyFDWWVEt7AsaMz0PUApvBcp0Mb8s1hp5PR/AkfiTSbO+ iMDQOxcMnbz0pjecV2bNuDOMIPNHOwsJihmUQO0MZWvL+I/ oF8CqffjNA8bv5hZCi711Yy4plzeFHiHyA/ edYDAZv8GHLy5KGZvAajY6pfbi2Z3Oz4LpaclICAr2zj4iI37p2TBepIlLEelWO7lZgvE/ tTaZe1G7CufjyBDHWhB/hmtvKvF/tTSOIjh4kFij6nKHl6knXnD3ku4FmonWxG01xefedLJV1BQ+ 1t4Hv21fD6I711BciotOsNqb+ AVp2t4Ik97oif679k72gzRhuRnLQmIqWramz12pbxJr6ZCZtq179vNzZXGaxq34ehaDW1NwJHutW1VaM a35vDBef92eE +lVUkDst1mZPfQS8Z9uaI5aYOWnD9rjm7MBVUaJCuhgsUc6JkyQdXaZuYkT/ig+ 4Lb37HWFStTFtebeUdfgct81qQOTcgCY2jgHWN4UKTs0kd2oJrtyH0f6+uo5Jv1XP7n75R7Z/ DcVlqcWtpqztqN/pU2vt7oe1N5jvetIu7Q0xrE5C/DrkFvZ/LfxVim0+ ElSnAqUNS3Q4t8mb0szuiFHosp489gWsbjm913FPmM21IFsCL5RWLwvrjcGCfkH002M5+/ vx6PZ7xiEflG8daTudw8Tk55KjltzSb813dzZ9rup0+5ipYeyaod0dnQvrdJA7mapGzC+ 8JFMuw3faczQJ7b1pkU/ GauMebgXi8GRuyWP0EIzLNnELAPzoxQhrGRI6D2eEJmqboioELcd42N4X3xgshTZlkaMOdT/ tVElMGd6B7yhL+ r7Nrchg9r15hykbzuM5r4U0y7rGyhanOjhkqaHs6leRX6IK2iJl8Z8N8Y2zHZPuPedG5J/ iJAxMiD0mrVdVYrwsyESSsDfWnPNIXTye2UVROIxms4yD3fyMekSijgHE45tj53b18nolLuVx2iars0Y NmrtpKNtFbW2 /mfXX7M/jW2+I19/rJVy1f86EHf47tLE+ 1w3TWLBhg89bEC0J0pKLeJ6B21IckE2W5RC4k7GsIozxx4mUuM2IWVL30w8H1r5i0JWutAK/ gj8RRI4AaCIoZ8bc0DmDL7U5RoUVfJu3aFFt+HDKhf2Inu4Dahosc19LRXQvbToZ5p6ZCnfkF/ RORJ9q8crc5Hb5R4mi4s6WuEU2j6FiXgO+uWWs+INZxv+WqxotkBQ9ah9Oys8M/ dXaHYhC33igIAdyoG5BfPcIiNAJq5PMgRSCbyxDkB13nskyhcLRF2CryP2s4XvutoFefJ/mYTXO9H+J/ FNxtSAyH1UnXm1P2DuJ6cQ4f9H5vx5u+Vv5DkL0ueRMzb+ CO5r3zmGcCnm1Wt4xEk5f1zVjCfhs9ipOm39YP757Q001ZgUcUJwf/ mNpCOt3AkCf5kmsAZ9P8YsAethHD8Ehon81dvgfPsYQKF/ yAosPmbVg7jC4saRYLdckoQI3dDVyYEfhxgpmmdY+53091QMtiGf5FVFYuBfbpqP7Wg2+ HAeJKYAtPgNgXuSBkY9Sctfgl7ykn6rViWNs8gL/Imj+D7vdzrIN+ eKGVDdzr0U7wH6U4lqhjOdoSSI74CrVndgpWpk4zPojD9a6Fqfb+LQ07qrxurhyHCCrtL+ ZdKi5F58e4fa9WD3z7SE48dloV7Wivzx7n3OdOLgbohv7U4a0QpT/ dDb0d84q3x7Hy5J86t52J1Zd1M45hf4mer34COM9cp8xfqhZwvqVptwjFcjrB5SkrjQTogW1qY4Rs1Hg m5xs +jFEUcIO9wMqylcnTkSdZAcRjxZmbeLQoKDdeE5Gppgnqtu+WyzqULJ7Re/wDFzVbDSNUubPVGtL3+ hPlFsnmB5oFmSMmYDhFJBqHCzipxg8sWpEmHPSG9M0lvYNdtWrdwSungrg4FfMWLRfAGA1Tf0ixeHQEQ B8N4MdkkAz6shwqUhcVzKEMbCvLW5N /Bmk+MJrqQqeNOdtwk9jixHOR380TS3FjODE2ScEV9Tf9NeAa34eDJfL6NKzSEBm4EcNHI5+ rQKRgQZLO7pUjltOUJiQAPu7068R+Mpz9oNXPEROk8cyFwo7dFvh8drxLA+j+ n3KXvjeQui5YOg85RjudaTH5ehITxc/XQxo4jK+7y8e2JlcANXs28PeIfhhp+ CLzKK9DxqGFvokrZy6aBno6xIQAY7HdQ2ue3DkTgctbvW12Pk3qfcCowcUViU2/ O10hAbaXlsflIumzqTI5jubxqyksh5xrarZMT3o5GqQLsWvSRBBNE9lLGfvv+ UBaSIPWPKBtJyXJoWVAWJcCnoXatOhI0w2zefecyCwaEzMmHLiD6n7uUBQCF1jOSw2AZri96jIlXZmXR bnNefhAAHGJH7SB0bPdoxmlDf3xqnQ14dqKg8w3huo2ThboxVyHZJxox7fMrjQ8qhryRx5f704V48aHW U1rmZxxEKNFnACgmPdcxkPzXEkppLIDmNyuyMFZWdoE7QQNR qIBYZFmrAMpluDS8sH/IzgfG91dq0nDWLuEQOvZGM3RQO/ t2479J27ZSEYrTw3vkh41dbtZr0oMKIoE9zZCoCfXJ320RKAQ4Jt1WI+1zoFCQYu2F+ BxkqO1pr4vslv8+0XQLmeKF/C/hWKz0/FAX3s0T/bE+pHWb+K/ x4sAH915jTjpkwjO7KAr02fPspgwPFrWUADmWbsU4ibiirgF1r5/Z5EnGyVGnQssKn7uHnDAR9Gsm+ 2dfT9hZ+7jq7dvCN8o/AAU8K+DfobYQyU1kirop6W3cmnQU/f55mH18e3Yas+q6PDr3GvCZen69D+ 495Oy5uVjZLd9CLF8w45Idgt95c+1K4k9mmsL0pr8JwURg3C/ DWs5m41LD8VwY19a6oZh6A1AysPg9CpfBjaPcZ5gR5j5ejrp10NV+ olSFh4wD9vUFWjyo4FLWEhxspObei2L2L7JValRGYmO/t3L5BSJXgl9M+ IbiLv0ILTaFvWgwVeoaokdsIghpTzZl4P+i22a86XJzPRFBy/DiDIg9hmw3fuPoZaXa+ RIt8zlIfJetvfPkptkDYxZwMlhFWefA1EhyEdpVPlIaWgumsBgGjZf7LCcwMC12pJppNS953A7Q0Af0Q J06pUjUsEkSNRoXDHlVf8TTC +WyN6L0vavx074Kka0b/wDZ8+Rv8OHyXwt1w+Xnl55DyN/iz7EnYa60xj/1+/rVvstyz2T+ NaWAedGxftAlU1QIVVxzmTYMkrMkit/gDw/5y3B5aB7SX0s48Zx/GUeFjbL0Y0mo0krJqQe6mq0RNgB/ FDF3N3bXhiSk46aEadKk5Th4fFQZwjTvgT1f8oX0b+i0mxib+dIxkZBbWa2ml+x0/wDaW8f/ NAB1y25A1Y7mxi9+vyFd4bpyex+vAq22T2ptQkhAmqf+ko7Uozu9n6mlockseCnfqBxfac/ neerKpLbBPsK2wkRxcIGM14N6U11dn8C5S8vyzHmT1n6mnR9fTKxpMZL4y8g3kCRF9lzonGuCh5kN5YX 9sHqTRWc7WtXNH62LzlYlu7bpxCO6b4EpXX7 + J5mvXSWKjVvJSRhNF0eXb8GTr1VKAeXNhnMplalya2ko2Uy25kn723rSY9xx162MuvcBNQ1A0JTYrXw9 qJwyTpuOGnefzC4lenr5jlzN3g5GdO0YHGX2lcoxSFENBDwrPzvD / JaeSbOzkN0AMhRKn3ih0V0LsG80RogF8Pakr9saxlj7ErzFVGTNQsDAu3VaKeBqIxKH03r7Az9FWyRbR JXPD2kGzCN6MLRKHrEhYzBZC +RHLDoqk1orjUUgsgppmh8x738Nvp27acih4VRAWQWX1idRH2G3e7v4z+bditF5b/E15jJkk9Y/ 2YfCWl+F2Di89svpV0Bt1C0iNgtvnesUHg8GL8ggqH9374pxRCoHmhMNlbJRQxza1dRnWAm6P+ qW0FlUkt50S/FPF8hgie5i/CHUn7q0pBl+kZZrT2NR71hzI9h3eJjaWeesf5RHhz2wDOfUTr/ C6twqR83c0Vwft9Ir22a5E+O9Q4P8g39jp3nQ25+WjkCfZL4z1MhTwAva/axZyK9k3Zh74ky1cp+ aYmj4AhHdbRlMeiz81v+POxAI6pTaTsAOJps4nNXcJyrxeimNpNkVSh1af2w/XVHiXPa8P6o/AAY8c/ tQkuCunduEiaX4ccfi/f27DoTfy5F+DRgaFvB36w/7CunSquyQxzyJ0Xnw7S1t4YyTQ0WxSK750C5kj/ RapVbe63/GVIcN05+bjKs7M0AdyeTZchqOKHVt6UhkqUY4Etv5exdk5b+ fZAOVCbPLzMd1tXXcZKEsi8oNW1jTQX6cuK16+4oFpOCI3SwL0E0+Cq4LM8uxW/w++ Ruqm2VtUzd113rIJhe7D7W/D3U/zFtou3Wsau0J4t8+COyG0uNrVaetXadBXt+G/wAOvEtzZ/ D0UxHEO1Z8ziPhaQg46KoqeRve53a3qKv3N/2s/ L6ajXxlho8VbBrYNMvuIXsNJ0BllacbHIxS3a5T8Y79KrfmkE9TZ48VsPbYo1NWdPl66h1f4e1GWWc+ BlTX44YCsZ7Wss3o8kqgbY8k+QzqHgnQ7K/ij8JdS+J+u3/lju09r6W+ KDQH16CiK8ewN2S9oFn5vm6H31mebDQ2xgxD2ciOT2rtObiyf6nxYG7gw1MH/tY1O3+Pf2i/ RKfVyG0XSrpURe98z1PuAaD6AUff8dl4XvpO2m+bVrmW8PxcbN+ gA5YxIwHlm6hAIEH18cM02qV8mAgnEAwWC6xuqbXpK1B19Ko52zmg7uUHPiKLP5cq0lyjf7vx0hC7C30 YTvnaK64WLipc0EOcYzon1bWrZbSRsXFT8liAzVREcQRWeE4gw21 +dxkoJp4q507Sh3akRMvlyDKGmjP1Sh2KfK7U/hf4B8V+VqCDky1b0l0E+NtA+MMU/wAO/EFjdeLPiL/ xlHz9DTsCtP3/QPJ9Vg7f4Aw+P/D3xA+RrrFpTLwvpR6g/wA/LnVbDU/ibrFx4/ VnmhFbS51Ha2RcZ2K6sheEmjx4DvAr7byNGUhdiPgFbCYvHg9URo1Xrgvqu44H6mS7bS2g6HtsLMnQxS nsvwB +CGq28je5f/DTT/j747+J3nql08q2R/MW9a5MyF7E2ux2dzadfemXGNEk8lw3QlfT8kaiPEjI044RdY/ HfxT/TAWiFFHhT68J8Tk38ReH8be91L8bFdw/I07uO555IjgwFKanf8O0SboxlPAs19X/XP09kwN27+ DtK+G3h/xl4u8O/Cf4C/HNIWwuKEik1O0y6alw3r3cC5bsnaEiUIcV3Y4+ RWiJrufBaFTUZ4x3srExv8kgVIgZkiTDeQl7+ cH5Gg8EswSnvRsa5XdeKMWCmS3xv8rA01kxrFrIdRw0XxtDeZYe602p7eMSGyZWJuNX51YbJlLhmljUo krLR9b7hkoHgAvJCVTtSQr3M0rgm5h /LB1ItKza2TmEYhrknoa/A5JLJvlarZxuCnwxm8qwByfXYEFI25M1JaSwQc+ Xb9nyh9bbYcgl4gWQ9l9jLsYUb19g7V95z8+QeElk19B+H/jT46+BYnW3S5n4A+ XGAwJJfH0KggzusSlY9ZThg2khjvoJZ6p/KzVQC2U21ZWFYxwJjo8EV8oOfB9VzVwJd3Ox7t/5iouf2X +T2lH5kgpYoqiildy/2GtPsDrw02V/TKzW4aFypqRjG7M1ZYwiaayrrUihg/ 3mJ1jcAuVjXaTvH9QP05IC9OZi9FyP/ENclYiW4xyaA/zt+K4x9z8TS/oFwblm2s3N2uq+V7UVkc0i/ GEU+vqlsnhl/B/ek9ny1vm2ctoJ/L4rWMoP5s0u3/ cGTsY0V6vUadyK6TMnUE62tzkOvDCIMgwYELH2acgILQ9WW8tY6u4dxXWApWiEM7xbUVowWcaY/ OcrSCzXWc1o3pePuDEGRvuZbT8WgLea2MJ7i1fiN/Es+k+HfFmt+ JxG6H7rcjQgCfz0ueiNYckbEAiogjdUhFjPAbdlIfRw2dpq3DlRAebNZ5TcVM64xs9Sc0H8YiWlzwVaz 58GeGfFA +FVr0ciBUzTzeilrL/TTpcYlFypd93y8BuTfOsOaMeHcz185m6eEn9TQUf2W5T0/uQK2v7yovx0+ fextWsaMz12d7mA+YiinupfkI2y6+UtyTmJ6P/0LaQTzmvHoF5Nohs/AbuvnInlk0cy1BaPeglb/js/ R0OiqGtTe19U7ozS2+ppqen+OGP53BYMD0h8p+OGvWvhndf1Zwe/ t6rngEsncgE6KK2HAgucfRFnkt22hnCw8qxOLLCixz5XbYD6JHGdgZd3AehJftu6So1PXKTCMKWqs0Lz ybA57WZmMfOaWHf7tmovWhpSFIScar6lUf9ZrntwMsBAn0n4dTfKIW4vLPOm6G6k67Vatg4UkiDTa37E SUfX /DcgqB9f6I+J/fDyvsZXe3M381LvoUFzfa4cy8Yznm7e5UtC0+ o56foIMv72gjW73awSv68jwxuMVygn9jZNywSnjS1YrQtjvA1AiL8J8Rm2r9zE9JXJA3zY6aGKWQJd6r 2fiVmEEFNxgnVDI5qFhi /E1o544WzIS2i+afCXQdZ+ TT9BCtva0cnYFw4qJjmvFYtSxgxP8l1D8m4m5xcfsbnL7KfQIFOeaTwDYb2xZx16Fhf5hnnmmN4ndqlg Lec532B2E +EPCz6/NeHIs3Ay+DfFN/7Q9Eez0tlorWOYLK1mjbrlB9g8N0hbdh+ NBNpla5lAukQegYEB0uMlYurbpLi3Efp7yb9lTCHTUIsYWvAmqT5U6hHMe/ G6zKlU6B38l2vn0entF0lmRk8sBSpPe4lU9YThHkShi5PPpr0lmeSPjTgWx2Qt/utcsW3+K/ zbUGieQBmdbXPl5bc5+3oO8Tkqgg4cwkr041rPEEFQZ7FSGBFVVY5iwZcpn4s02XeYdYIi5aka8L+ BZiUGJ5T8Ktazk+OdCL29/ zrso2lb96me3sxhyyX1g0U4cHhjJRPXocU9pvDvjePBC4t9qIyhTvlkDSnlhgzn48WWddmM6hLQ+ Qi0hcms1MWcbJ7dbkhZFR1vI6kHitvKzoc3i2tf16OegK8F8a5rzpa8+oP2e/TTb5CZuSs+A/ HDZsfFei+E6F7EldPMLrGE3yIa5nTLM/ Pp4QFri8OH6EDP1cYXHVm4D03Q0B5nN4RyY3UQCMKB684mEtWHkjADzfpiNaJI8cRFOzp/ cy49yXz7J6r5LslCHEVmXtvzDu38JUs8l75tDeheKWlDEGBDj9+4uRvW97T3WY4Yi0/ZRjfb3u/ v4fCzc1i5buOnO9HiLl1hi3cvoewYxezTpM+o2Ttmm0I1gXmPk4s9Zvt1M4pao1R0FtCxXvHC/ NisPEQT1x4FFE8v2w4Pbz2I6Gi/A9/EMd/ qne1L6p9Wm6B1IebUYr3uf3lzUE636wSAdd7WtPdSuzbkv4xxfe1HjBEIvh0v5S7QonEfm/41+ GidksedOnod9CzLc/pXgz+7fED44f+F/wAO/g40fwz+E/jiW3ruAo2Gw/BuETij2Y2m+ 8PuRqVf1iXsTxOeT7Jikp+uandQS+tW/dGQoQ4PTjd+IfA/rmv8LJU7T+ w0NuaZolcAMGR6RxPeCXFve7EhhmE7eLtq5oHqXRlVYUh05fSM+ZhPnKbT7n1eusbUskCUxBu+ JudrwQ8pKsuVH37E9p6by2bWoeia8HKg48ceUApOkUEZnGvfmuQ5sttJm2mgAOsdHJp76DXrTJrz3F8m 8iyB44WWYW5o +Ji3SgOO+g1hGJZvEeLK5oUjELWWxbWI9HiipHrO5bOrgnm8Q15km6H9ZELAvXRQ/ CXAIroWGX82MUOBJrTp+OTK4ncgjgHqSfO00l8f2L90/ TAVQDXgg72o7rswVMIKQwDl2uoSn3QU0PeFFbWCUp5WE085ULCHUxoWINpWNpBhStQCX1ea+ rJLs57vf9KNdiG0LpZR1le8LLs6B/x0VJl2h8gBiJ+ 0xNVKmSW4nOSnvLngqDpBlgXryBHStQ4sDpx8Ua9UotesDLWcB474YIU1jtacoFat3FRJ1c9r+ xAMzArJJsCgjeAeCeSVx/ RsME61R2TkVF5s5sFwHVJzQ4N3InGOLLaLJSDuIkDOJfdRKMWuiSlOirmTB6DhR4EpLzOppHYJITsaqc qdOvB4ykE +/fP2ZoDGT7Qr3gzdw416/ lFqjsevDwT2JxgjXP2xzye1IwJlGbnHVWOHCPQ719fzIkgIZe5DIJu5jlWpRQBCbeGl4L5MS7dg5qiu7 KX5SYAm6pXkrXFPhYRIQaspWMnIywPWsDCiOKGHOqd96YHMyFhvLUQBZ3bTjLdzxajihz5g /ia6QKxOqChATzjlgWnmg65iIGJ3ylN6WDyBupechFbw0FO9L6IMzNeYEJ6pU+ vcVM50amWZJ5FDH7rqFZUlqmZHm20HlDCNMsnZofYazOMjb3WMmYnN4PBlk4XY2N4ebEdeGsGhfWHS3A sN +1QQ95LXmI2CeN6ljraGJ9fmwU16/H18NgvBlfr1F9EdPzvulEqs1EkXtyNlRqt9tSasI/yMEzf4Uv/ uCRKKvN6eqASWkuAq0YP4y4o6fQd44PIy54fv9UPWbmP3uaM3we/ i6XPa1wwtk88kpD4wS8brqx40KFsL0ESHZyOnirS+ GMa3VXPwv7ElBoPiUrrOW93KrHv9ynRqkJEYTMppIDmehOu3Tn6Kvj+229nrt/ Q9hlzj3SOQyyjdfcnq32as585nvi41wqvyrP1qg4+Xj2vpLndH4kJHnjTWYCUaKG7WKDKcSadm4ItLq/ P7I2nQ2vB2wNIcB8pjnrJR3PJnQRrdEBAlMwRvLuYjQGjwtCnhOb0OTG5GNNalzsL8UjA9bELWlp96hf C3RaUhlZlV8 /d4w3igSURiRekJNPICEWkUWBrw6xHYwEaffJifRQBNJFCznQegE9gdzXbge8ywjK9+ UZd5CwenFDC0MKrhQyzE22Nhb+eZ4q426MuR2hkPkX9INoa6je7cuXms78JjgTSmKFvaSB8bHq3z2/ r53ZCGaH+u0c4QtSvBn7gkXA4sHxytCHW1v/ crO6WSIIsBLjLxCCleSj00H1imGKeFsXroNBBLC8ctMKQpuXqjxJfTbPEHQytYfyh8K150IkjCT1KOSi l41KM66P4iwd7b4RsWKNVG3B /F5mJF4njD/Z2BltCMAVX7fhYwssf25a9w/I5TIBASDktKji87iz2RgnI7hv0CfTqxn+j08w9LNaEn+ afHTRbfNzTxeEaM7FuWGM0/ JBqbSKkHBhOugSiaJa9AqMjKpJ0EcTWWz4jXL1u28urc9jmIvaer7pPKVdCxUCPcJBojRJu5djj3YXPT EwUlllhJDr5 /lhZ67opu9jpCAYqgK8xjL1bBabT4lDQXCZVq1N+5rmNBj8VXy7k7S2Dfw0/ 6q7Xi2hvL8h7lFZzrEaT2k5dsb7vnzFMOFUH03cNu4UM+ afkL9NQyou43T3377Wn01IWfqAaPi7Pck5wrshFaaV0JVJWO4pJyebtg8gpOzETYcscfcslg7FbYGqIj r6qQYjpep2hBOw2PF8BT3xUQ0BdsPMdLDePtUUSvJ /JWmhJCpVo1S33QMJiKLeJ5nb7jwZ4usyDnvcM0iDlco67uM5YBkmZ3WpMXh9ljs0a2C6z+H9U0a/ pDsTTIJnwkr4iHSVPegRczuW6NiDS7hD46gn+ 0wUCWHnayiTFbKeDfvBoPIhJMChbkQL21HhhAqp3f00McUlbgCEWPkpSRhOGSQKfVF9y5fHDqs75g57i pRUJX96 /vJWkmn/X4282tok+ h45UtA4vfbCbOjAvNVYS3Qi6BSkbJmuoyUAbcH7v3e7A6N4p88kgXlfCgtlspM6cjGwtwx+ VzZUNt0ZzjMvV1ioSsNWJbwIVnP0MwqdMrFaVBo8eAI9K3qSnEh9HQ8rem7H1Du0wtEdM8TogSmCybyf 7ooVJsVBZUeYeZubln6it4vyHR7HWYB88WwzG4BUtNn82ytlMKeGYEGYENOgzJVT2V1 + lnBdPZZQuT2D6d6M4nu4WyTw0usbjvH9Bz7R8p2iSE7aaqfje1QmJNXnFYSZu37ZK3LBYVyqDOTnmTIj 7to2WSddr5v8v3l6ff2kqdqZeEmbztZU4ddTvOR5sjthwdp9G47iiM5 /CS6j/Y7+EATwMUApeuQFF4iroKhquawM06eQT0hZsrhxaHKxOoFUOAS1srt55/aH5UuTeUoa8QSao/ tfaadn8z0bB68R10nuKgGW8EJ7x5GoyupyjuR/ UNCwIxyLefwu96l04sgvkGrR3i87FZZJrjjegjYAa2vyZ6F1IYjXuBChYhA5ja3arCXfDDf5oO6y7C3Q 4o +Id9hhpev9boPBNct+ ZscFyWX7uAG5CPHlto9lQaymmecXghXEJFYeqO9fTxMONDoFAuMunNNPQ4d1S12aFSpztzORY2HJ2qGl FyeXSc4PjKeMdOUyFI7wzXkHioJ69CrZPv + f6FYolrLgtf3lkQLmbUWAejTjYyRkpweu9TBn4XVRaR64VZbcCFs1iiZ9b67S7rprryEF8KTmCmSG1TG 4bwo9E6xYdA79wPpwtdkeFftlbgMhANfntLQmLjrKSge8Xgj0HDyZRZvS7r +fHwZ+SNrhE03QUf5+oOUldNMlt7ggrQSg36pYLP1meCrvOEy015lZSpBVxqtWQ4hg1y7CJQF/ yY9QyhGVRkIbwsJvhHN29vi2VmdCJw1l2+ kidkNMI2v8YhUJKFvmxvLUThQJpSrJTTCRYpZdNo8BBAh0oqsTyaK8rxq+ ltr8Lq30tjU2DDJ9TjVKX9ku3S43/iw2wyuHJ5DpXnCXK20WddLvryfQ1kh6t+ 67ZKjQyzRCLlNqEX9lrsM/vxhT7qjZ9wSjttWiqSMRbAns3BoUhNY0gb3ev8DeC/I4zd1mtkkmpL/ vcx0rgh11v3s+1ZXrEiKrI4Gq9tp6bKpusfi0YEsdG8J7c1mSnfZ/ PIhuab4B8fo3tcmwkj9u0TlJR8x3Iywqf5w7H3HMN2JkDLFTz8GqcLH1omvfL13sV75IkZi+ 61K71fgNzgxAKatrRQGeuCvj2T1JaZqMSN/ eve4Ef9RxkXoeUUw0jTclIuVFv5XRtyqEYXjJdOcdEORx2Y9VeuadFV/ Bwi0kSymPyATfHSEWy9qADnkkcwcNh5pvj08ckoecU0r56qhub9gX1S5TlHyJ8E4VyUvSjP3bLZCt3su vgU79xvEH4my30uMxxw7IdkdtGZVKEJEsZm3cqVmF /poQVP2RlSWay/OH5fln4rh6+rRzySTWUUMzi/sywrhogvhsgc8PX7CBGeb0rLsno60Z4u8d+yr/ Ieg7pdjTKo1q80ZKhlzCGIBFLoyqU+dIjCSWIOspdbVJhbmSSneJjofhLUfF/ fKBsGmL0iWAVftMMe2P1cGKvfYTOa8UIuDtEjFuWvlIwRqNksrs5vCZd9FsKQuhFaHXu+ xLupLXDvy8uauCDMwxVxxh5p4uRruNcIo9FzrKLtD3WpAlg3rTLyU8ZDbSt0zL3ZWJHDhi1G47kO2jwT VS3DTwsr +KvD+g+TzZIgzzykO7xXwTQo6X/PdULUfHVRishfEzj5gIoYHdjJCJbfMDYBclfrtJctC6y5M+ HnKVpLhocN2M6hFWo4FN+ x1vI2uCzrnhFgxwD21dUxKgmw0fZvxaiNPnsE1kjOlO1Mi0sSWV3s3sU7tiR6IhvacvD8i37Yr+Kpxo+ ee0qpaaNJ8jayzoWR3gd7Xw4Ufa1m2uBFqVrcgUisTNU3+Bzsg8bhrQ0SjYkb9/FEbsU1t/s+ FL5a5Z8Oaj6YJByzZdccDAz3wo2RoWJ5Vk7BoJo3dUFzXnaRwFN8fZfswhvJ2BRLalv6nd9djSU5zHt+ 6w1cy0eoxn9dpDZVjLCdkuBAzWiCYKQEVDGCPILp5LBNyV1XLpsDASl1tzFbZZO4q9KlH0rHVL45gbry ubbwzoFw +qUTQZ8vbiOoBS9DE+i+nqJfCrEDUmIdoGAcO2VBE4P/msNK5kd+F/hT8vXU5IAqSwMn+ 501OW1EHhJgr6n3AP8Z8cz36et/eQtDyK7FtjcmYSMXhJlH5ocsVryLzbxN/U/E154v+ AvzH5S68eqeYFeRiYxSwPb8bhLRsebPw9c0yask6g3cIkENkw0VAgNt1DxpdfWFfL8tisFpV9hfMxe7A RQ3LwPf4s / MqPgfnHPzdWU0L1UIGneGpHxn45ts4d2dCIGETU8reMi38A1wEKkYSnIjOizVAGKeiHlSEZ163s3NRvu Avje8Nc2 +lzjOK+NuDLcmYmlTyXrrfbHAKzqjzClQFJtBKdZmGXlaQrQWzYq4ossJ283/ OLB7t9NzJF4niflx7cMnPsY6i6J+QpTAwOH0oCFJD0KZ3Q1skH6+ 3cvHullvrutI5sMzZ2g69hkAMq1lyf1uowR93pIKymeVJrvF2vuGUXSmPL2pmWjlHXTxZC1oIFMrmXyZ 5xeILJYiKsVbgTFLFps752v0w1pgnH5iPIW4N7Sc9MgSB7gk2sf2rchfqu040 /WNt1T5bv43DR1yTneQ3j2BTijyHGWPt7XOsqOftGx03WrPAm2y9Bw8OnAJG9/ L8RfCL8l0NeIkHDjAJQQjnzFI0hz5N35q1kcIQC0fpdXciQHGKB+nLiwbEmPf3pVf5Ac0y+ e4pGvaGJ3V3rr4PyfEsC1LmJ6ZdYtOWiLDtIeE9BR9Ngy/2oaP8NQQbStsyWfpWPYcTx94+ z4uQjQaJo6p+ X8R322Bpdd0QttVvFifAzvujcj5eowwqCS3bOG94a5uSdz6cO7TQ4yqy5jKOaLgRlYaDcKYyZd/ xb1X4y+B1F5J1lpXm2juCeD0nngK8ojDLw/ By3Bjcb7Vd0CdD5lqKv27D9ixv1wyGUo4cz6y4og3t0b1IOb9b5I1J9KyWPJbrO6fsxdkK+FjrkN/ Kza3qXTpaDCxTjAOEwvUNprxU8TjTj1tQRuUIudJ4wYI/cWzk0XCYC+NHth2AUzQ2QQq2fBg+ scHOZ1wam9JmvUlrDSYr4nOjB7L3jZOhdVRoOHzd5koo23iDyoWONd3XEeQztHfhf8Vj0Teddmawc3jh yBnvehvD8jNiLC4pMqIFLOZuyDuMEP7eUnPEGRI1emL8anErGiqDp1VFxzW24Y2h4V2HcxH2d2H0ebfD 8vreE1culMtrlveVeN62Vf2hd1vgw5JrE3A2aH82OjgG62IHtyKPTIBU7OjeySBtpSQ84o /i+mFzyt658vfBBTtyjLUM+5d0LgsrZm0x5GUFWwAP3A29DbxxFQ+ gf1WFz3iJ0igbJsXXjmF9WjjFg1u8cMhKpcZgLdQni6qPptvS5eXYTWHVL1aUcA9lBEqwWXTtxt1UsjN HD4Wvp5R1VzCudDufmPk92uxrk +qw2+ h3Zk80OoVA4Fg5uTteu6Z6fCDKmDb0FFlyz74UD9gZXuqUlkPkkKUFf3Q20cuVvFjnhqZpeOlQP59ndz 3e +67zETpHjrFjBUxOVOvWIExCcVoAzctONuwaaYe8QO6y7cphX8wCH10e1HmIs+2/ jYj3pe9eifpzHUdyt/J0y6vTSys1bSIDEeZyiVFjFWjRfvpnzmvlBDVYGt2xO/ LMiN0PC5XzpY2STjmCznrOzZazetVmwd13ZRt2QKDQhjzDTAs7o9TxdVLg5l+/itNuY5/7SzSHu+ ofXyNC2tfXd1N3wgUwlbBUbCdBdBET1hNiCWEEATwskFAHzFDniRwjWhnIegfi/ M9M2prKaGE6JOWHqK81Rb012QAcJ1ZqgkKHRb0Kctkjf8korYdCLGPlm2NjFw1IoJJhtk//Diu238E8N /rUy3g3gjzj6Ss5zq2uUo4L0GD7hZJ2VGlOMzaUe6z2HRXadRMP3xGdGsf0pcZnMb0Degd/ ex6ccMBE5HC9eGtHqNexYAEgiiXmAvfvYVVtwLqLaq9Nly1GXgvlxe6NtMxk0v/ WPim9k7k3hHoo76s5h/EfRiT59tx7mu1J3qp4YH160SGXLg2tGwltEN5vtgO+ PGnVCOVJrmISSmatIqtd34RoGXbf/mJTBFqBz7ZPDqAglOyDpkUpPmRi2Yn5WSFXdC9PAqLYLKj7u+ 7pfpv/YqUowmlHesg0Z7/+ TlRheDGqHE2NnSmcDG3ZKUQUPGyyDro7AKzArsYKI0bwKfquo67dY6avwXX06ivBA45ENUv54r9XHKHW 0UESIuCwuIOR8NnIBW6HP7Ua0O8qEPipQA56cC7gfX3vc5oldRmie35I /9FBVeDtWcvOwbSvdEVbwYFxn2HT/wCW1JSj7nJ4e9GEl4T2MhO8rZygoJvt+Es46vNOgf0+ 1LpdMexzGKFF80THYUgCQFlWpby9fYZSXSmSoslWQzvs93/6/gAyWyJk6t59i5f+bpn5iJWz+ RmYkW0lAlWEz4pmRqWHYVYSgT3WH5F0cZav49toilz1PmsDt4DzvYYvWIk6momap7h66DVtluRTlkk49 LQ2iwOSlyZ35l8Axn22eUu3X +Xn0C/V7dFd6/gtL/cROQB9nsK8MTrX5ZQ5ExFGkrhnLLo9v9RSS/ 2KSMl4NInhSizPL0R6gxxfsmLMisc8H820JWJ+ sLstaDospSoetZabzkdrCLnDPdMcUYVnhYbWEDOAy4xr0L3R22ud5pi92Fr8aw4Z3OXVJwUiSunAzRI8 yRjJyenp /Jb8zV9gCte0t18ubnRoRKO2h84et2ERv4h+UfISbcvMVHiEV2m+ wA685SQDOJ25H2SYV9wWKjx0wpvxTIr/dlIEte31f+pF/K39b/3bi2Vh3gsoD+UgGCAdo+ 1snVo6lLY4LEpsOLc5VhgdXEIRMSjZ2A6K2IdNuUNzeRkKAtIy1HnBYKp9bp8RBcjZRccqWMQl7bmP11 6pLfgWVaR8a4L3ZEIvhg83JnXyo9xaD466b2 +7YN+u/nr16/1hn4f5ZvYbhVXLhNyStuYLaXssnquy24JLxBSkXl+ RaIPatmwEAC5Fa0d8uKPk0zFSJzoKDafBrskjoHQiATAovXHBgbHdmSvvdBf6/ 2x4vUhPS88Ls3qDQEPTBYIFpAx3PyBfWTkhng050eMtgR/886iZFi6R+ea0B4i9+3jep+ EbRQfPEEAEvkun4jRUOebnvtX3oeKOQ4mItk6IV9GcY5z+L70fw3Xl+ ZijeYqPakfbnCvQZ8iKvnMi4NHRIZGWMBlkMw12P33tSfVx2GIqKnPxwcP2PbHqxlo7VQYOLzbWLcIkS KMBpygZHnIYJutJUYvto8R2TF4 /XCoOpvbF6og4wyvY47dkzHm8tvzmZJscXopTXbwUwerzW16H3F/FB9npmGLq9nEQ+CTz9g9iS/A34w/ Kum00ZNkHz9sdutg8htOTxECr/ AQUA9jFsEHHTqw3BVFbq3bVRXFTT6m93vhIsHwqbN3JXoIoLRUcMsehwGWoVUBLJOUnpzfpFFI+ vBGbNzVHsy4Y/ qks9io37mV9yGloMgFRPZltbL2YDqcq3mkeQS0LeKy2eKct5zmhuM0MHgwG6KWn2W1miE7g4uEc19Mho t5za26cVP8kAjNf2 / Cwy9MnGiA6Pl04vZs6vrbeCVqK3g8qXGWWlIe5z2Zyrfz9H0FjtnOB4zX7bqo3Qap1Jh30tXtbLmZk27 6Dw4tosrDcU8 /F0OyHoaxF5aE8a9Q7McgOmA8v+UoUP6mypNLTamkyFTncrfndGwR14k/ 4r2vH0oABIGG7XkpCyBNjrIsk2qu8mFub4XOqHDCMlFiKU/wu8X/AA/vJ6EXwDvrFqfFR/ pyog06UaBdAv5upUtFPNZdIDfALZpiEDzt508CtQee26V4XUkgrJyCf5VbEbFG2ZNl8TcgblB2f5b3Nv OfLhV8V1pBHTvxM2QFT /FP0oX5WTnZlJiPlomrmtx77YiG97j6hjwaq7SJRF8AjFTpaAFruwQXdLbH0Ez8a3saOvX/ VWCpNEZXZoF9sUXkwyEzZx2FuEoipFYy5/wbm4r0yIbKkOQpZPXBI3mrhUkIN6FRZN5Y5/xXIksF/ VEElJrjbst3YyyuuWPBci19haHGNodwxm+t9V8/Aswh0vF6e2lP1YI9aK4kSSTvx/MFdn+ bFjVSncs6yFPnzBdRyv4/AILTTe/y4lyetlxETT9HNPFC+ ueuItnbhBqjv1qPANt7721duPujFOobirhguqHTrjgSZTwaTEOuplfjaBcReQExaONPMW3yUuAbXRXqm CibKu6w5HySICv2HsaJ3AWsFEXdwG247aZmXJa82FJDeWK4Wio + 3GTXsscqFdymKyqMnuIIeoWhujSvhzzZz34AmoBMCb8I59dTHYFESTCFUXJMI3lOtOeaqwofcY6me0bw 3 / wssx84Hy8zSydb8n9y66ecy84Wstuh1hUFEJdmecoagC9aC6hTcewLv7PcvPyx2RAG4eKApCOQroUs6T Et8HevDfIH0oze6lEr3BlVPNHrVB1qNVT4XqdB /LI+28lEpRyKhdJHypzz4vVYiQhM/ogTXMiPGCcQQxU5aypgB4GdeHeDAo/s/ kzeOeN8tFXJRe8uVX4miBERfHjcgbZULXKLhYCHsSQe7xtOp7ygIeslF286K6g1m1p59qctksHkVLvUJ JIcefMxof8XmnLWn49MN /iTo8+gtOHORornbrZzX2odYoxjCXN91ERr+JfuQ6PhJF5sWL6UFwSJRQqVpcpcTM8+ jnacJ0LZpXfHZYbQ9qyzBhRP958X5H8T4tqH1rZzXCVJTMHIN0pLAfLB3f7Xi03hY7RdMGs/s7+ fN7kLJmNfWzLgTwMkwskmuRR+GmFSEcRoRKbjnL117WFdgzzs4Hq3uP98cxG5+ KvDZwG6ntytF0qadKRzE2xAlloZslHwu32qpcOKESo7d+f9ZlSk+vUkx83pHM57Uk27p3bhYP5+ 9tAAwE9w7b+TFaTovRwqpq/R7uhRnC7fRU9FjX+O/ JOhrIeuLzHw3jvga7Ab5kubmcIXyDAIF3pOFQXYmFz0cKnbTzPV6EqnkyjZDe+ YulB9NUMp09w0vHJXgpo9JbqPtQi4JgkWf8Gm8c2f2dA9okfnv+Twt0gmz2ff37o1Ec6u2YfQgzG/ gmuNR/ HWwsg82lfejpoL1Y0WO7d9dLev1gcziFz7xLfBhBSvEKSYS0UIuRnJATwxsqbJiYIk4ne4caae1pd9Dg RyQXDBXutJkgT +czvYD5gXwcSrhgltDix/crQqYqdE6uoVmQsdVAa1LyPF9dLbqjg/OH23715zlZ+ mjiY57jMKyz0wTwFlCByLfkaExPjtvOHtCy0lvCuw1X9tH4lIPhh+fPAWup4+ jTaZoty6prQzWl1ZpnN7juiQUlS7MZVSUcLwFp4Zia8GZxdPPmET9mhLJtRAy3p48zaR93zc3ZoO1XF7 M8NKOHIhCzp59bVyjnWkgY0EDk9qwHQm9ogSki9cj2PawW +BXudpFlWzbWo54l+qpqQ3jP54Z+xM5EfR1sd1HxrmQU58JwxH3za+Ytp0AyK1Zm1VovO2+ 6vmnim34YCylQgP8C4qjsUx1OxHbuwYMSaQwt0C9YmhQ2+eHmDlKrsY8dHQxY9CbfPANp+ UDDmV4hOdFJeODETE7w5kE+yB4pwoIuO7zglPNVqdDZ8FiJw4x/a0Hzl6hn24nS/ 0ifB0ZylttIbzMemgQgJHQWuJqfh7grW3fRVhgKojyyZvHylG9WRRhci+ Olne6JO4ym6x9XvtvcLbSbaHc8WpjLcQG0D1QVZePhbYqEhTQ6cyz8kDjEbzIsTaelBCye46vuSr4K92 tpHPeEi8V / b4KNCCcq04n5rP0LbvktXYnywwPo96hkq5R1mSJxBh2Mya6OibdUWCW8Ol3m1Eiwrgi8Cr5Bwxn5m8Oe JpUl +2iDlwZ4IHZ7z8s1PsEVIULr4/tNzEqOYIJjbPth+ YmeRE8pvXpewsg3Txhf9liXWuttoJSFP5yNznJlxbDolvvt8L8sI35rn6ldOtpLkyn6zYdmoTvspne6H zvbWmjd8ntJwe9d55TH5u /PdvvZQRWXArOZ7IKgPcXDrhgcIe/zTBb5yf2eLoGVibgqA98cTmgq9nWBtohyCQB9InMFM52yUK/ aq4AcpiDKRAotRm8Rxju0OgCQv+sj12TDMX7VWkVhm4JDn1hiMCwE2nT/zxOi7QHg/ Fh7YVQ6C55WPOkng0RYnxYXtK4eaSuRcrXmak1pKtRXIs76U7seeypdhqwtP4Ke3VSUoaC4NPhFuE2b3 59H1kCeVkjsr91G / j7v14UFXeF7kVg3yiuZxmN8F2j0C9leUL4g31N7ChpRA5y3om3f1e2Nv3ri2mb09zXobDpKy22WS5ReI emrlrzZ6741D9wQEEOvYQsi0vll8um1497Kihq96Dg /ze6HgWno30LkBLr41lcY6p9qbQpbjyJz3Ylo15P6b10E1s2sQiUuXbOSAxqv7harK0yVnhsiNqm/w3+ 3GHot8p8W/UIg4q2FqfQjBNimJ0Skkezb9k1ERpcvI63xLgwXbGyC/ZsWu/ 778fI1vRVN4kd6aZPxO1EkypzrtdweMr62l6GOCb9L3hjCJHHq1NyZwhN7h+sHK2Z3llVRNaBeQLC5C4 +zaKag12Cc6m+bxh3Iy8Dfa4S4n9Jpk0sl9uB5NQq9fBMLJj4o6EqXQWAkoGKY40qtVcY+ 9RZ446JK11lu6DxTkQnOGqoVIGU6tDg5HyuXS88L+TrZzRxOUzYmUIkOl7d1nAPsMdPJpAugzC+ YLoxzC0MHwPFkBnU+ViE2U2mzZ3cjr9f3Qv4F3TF+OIvDuu+YB1d22CDFmcjjP7oHEiY5WK2x9ddtVj/ A04brvmzVXaaBx0H4uLF0z3i00CM1sb73fustcvF+XmktkeuzuFxK2v+IHw+0S++ HSbXDbDps6V63dT4r1P79nXy1q+GPX5/RqqgeT88seuOe0/SBh5IYjgoJcraruh8mgNhir5Jb8+x1DV/ F/Fng/wBffCfwJ+1ZUgny57pua725sJK+IXgO/ k1mhN00yQJl6MDtJGEwzhZdw2aM0KhR0IPF00X6JVjY05hjrGwq/Z6cI5HrE+ 2m5Ap4IxGSnpdaDpTe5Utv4PMgzOdoH4RTw8XzczwpwILK55gqts1/QxOU74Q9mk45j8gXv8+0e/jcTX + eUlAA1Fvi3ZmoXqkKOHalxpc7hnkBUlxo44fCDB3cIIdGPiXZmpTyyv9aeX3wyhXofgjUb9dlNZYptcm N +0kmOEgcMKzvSbf56v2rUSVNXb9mRNLN4UR88d0N3woJr0bS9BKWAJO76LemNAwrMY/MfEg+ YsE6rLPKb6iJJEbJryG/FjwPsaTW0PYBnbN7oZqaY+IHh74i+Rdw3mqXBA4GE0dtsOF3xq+1eXN55+ 2VgAJnEEHbqrzsxuQDThiftyuFcAbh410T5Myu6lQyy+ yPJZRPqIxD5OntZmQJx5Lt7cb28Nl4MUiGeHuIgIYyCGd23jpt0hugke1a5QKjMAKKne7a1Db5RojWiQ SIcxApfF99nxw0VgwQD9m6n1MeN96TnT2 +TSmKWz8g/h/wCJfCPxI+ZNelCx5hlk1R+Jvjj4k/GeNIhZ5TXJ+FfiP4C+LWg/s8+ XQJ6kiUqcsiwDdZSugN7P8LoPv7W6Y+PgaL5oCgPVjLT8rzx6W9L+DdOsdT+GHx0u/ bCrVy5WwbDyqJq8pS+Jvw88c+EyK468sd07DiZPs3w+VeVd4HK8ouBCw2c+ RVhv04kEUcp56dfiLMA0t8eTXx36j2fz1B57EMhs13CVM4SeWkQ5i+f8d6fc3Tx1EXblAmujm6YhL+ u6oq52Fa6f/lS7l3JySGj4TL8o9fbQ+F8/oi4EMoed5G+MbPWJ/WDaP4pv/ dFUxf2sq4ElBo6xJbs0I6Qob2vrNns2V3Y9oAKw9uODOCqx1oqzoS03I4uedDw1eMVqGruRmRSb3btv3 oSqw0I4xncW4fawm /xe3DdqcCWSh+hmwN0WG1VDe9eDnLwCd7DOrTfu1O/nIFoYls1l+tuSp0caNBThpiaoezQcPC6XKue6h +YoCb4jWl1xgrExK4j4GnKDIDkAUj6yqvbkwtrbQgChL2+0IAnumnPH82Ze7vRmdi+ asHCIoWgZEeUmb6tYaFuSCvQnwxXi2gihq4xdwtyzoExrkeowcg8csmhkMu3TkkDwrqhyaqB0f7VuQOn nLCmn982f5rHUqMNcAgtdJwZMyaRZzYH3DeN3Bh21BStmfnqSc6z3G /G5pW1h8YlipvFwQ7zDYP3osk77XNTjkswwbURd6BwZF6VVGW9rBSbJMCwsiV8+ DNqtDQ1cmCr5CcVT1qpXfZvsKme991G/U+TmnUSVFf0Ob3sqPz0lj9Fx79DzbqW14WgVmsk3brZnyQ+ Di9Fw4U7YrH0hzFnbda8RGtfbarGTbOwKKao/iKDzHhP5npCqO5goPs0Ubnyse0Gn6nSsyUyEhkytfa+ wWrosjsktvHJDJLtWNkQlZZnPlTeG/Ct/2cfYObE8dpQeGjUIG+ 75NqxlQFjXLFFACBTGUyWdvdrHwZoumPbz+RL63tsJGUAdCBtmCSE6PZj5JfbwdbFf+ UTVYJ0Nl4bOWkHTDw7zixklay/rs53RdIj4LLxxw4caQq2An2o1r37cy/i87sZr4D96chi5opmSymT/ KWEyxk/upZZJBvkQKWjWNCBEGKOGLlvdIr+ cv8GdLpBgIFrlyJdKewp5UZ3NMp0eN5Nip4FsDPNUf68Q1A6O8u9nX79udb3q+ex4YwQlsVcj/ zZNfArh5a+KdjH4/v9N2XzCexdwqebKsP1QE634fx0coafZb6URx1P/RmRiUS89gE15Z59R3o1g/ wBSk0/P1gR2Fivt/cQd3nFtcGrlDr4k76q7sZwCQn7lcFdYnRtqh5rEebLU015CuLy8/ eus1oc7dhQojvkd5SbZHUKz/ AZfCiZywCic141UzJuNj58Ndecv5FScLm5h6JgQ5YBsclA6oZgy5UZk95zyqdE0BNI85U1mOF4ckDpDT iZEBdsq2f3zgrMLSORwWvGI16iEYjUwj9xj /Hfh+ gb4KDv9Vwovwc3ygb1JTkqvCM8noDFxgzZbKEAYVioKaDcf35TMmRk8sQMxz1OgEjKgXqEJx78ZSxaj5 2Yv1T4iHvb02hY5bDxXrveIPIcnx6RU83CnY /UxcHThQ10bw1PmsQbp5ze6/ lBfhNKK7BwqqC88xESVOHd5OAO3m6GQAVVWjlSjad4cK6Jzrs4f7e2i1tdidi/w5ZwcRqR6EsoqQ4+ fGg2mBhw3Aht8q9Aii3q7nM+dAH4YJig/JsCueqSfc4Y0BAK1hcxXKLaLV+ kW6XCWbxMtozz9Qdk7W6pBx6w3YD4TIHrL2adfnBI0P2Fvt5uHs8QwYse1qMyeP9ypk8b/tvWvts+ ed4s4XgodRSeKHENdlR5+O/5D7C8hnKxWkQk9NfXFuRkfhHOFJ4xPmF4M8/ Pe4qfybc0nQbCikCKkNGpQOYKRBsGphyO4b925zZW7h30jYM6h6ZRk/mTu6+ejq/O/ MZQ8pQOv7tWH1PhHQu7RkcEksBUjCIqFxpazGDbNdimp7Zch4GYpalKpLl6qsEvgrFq3EY2bMho22zjW wIg3CUjLpmovfMlTVBd3oIf +jgcMPlqy8MPm9UoMmOkVGfagaRa9ladtNrbCg7Hl48x0G5ArKR+2U1aUoqg63Auh9MeFv+ RvVguF7zsvlVuny2Vy2njPK7o1n8P3+ tqDY8f1XkvrgC6EQ0tq92tVTFg9VbyP8w6F9vsW9s6Qh4V8xNRc/hSogTFaXFPQFa4U/TZbZTCb/ LumuST3cxlL9hxg8uwzk+ 4uez9Gog7U4miincdxQYtAUGN7BZMxYVNr3BI9C1cjd1igcX5donGpQsKMNLEOmwojCSAvN8Je2OD6nU qFAyoABAVdwCg /5LqJ3CPHCgA5BD4SOgmu9UthrgmLluECmE1DlOw7ImOudZtj+aGf93XunV+ EWSuUHuNb1jSmGaeBlEo136Kk3fWmfiVyITwvn0G1PzH7s8HhAc39Z3woyJAT1dbekFwXyUZ71DAdnzs rFJtBpZurSC1ITHVWLIAVRdGXsLwX3PMkQy /ssUK1vgxlCWtvtzrwzyTLLiKqskAF2hTX7gcSoZy8HcRQQ3lN68e2N67dEQh/ f06ViHaglZ3FYZiypltOJh6TJkPvYdB7ydK9Pl+v0GjiFIc8unTUUhOoYCEGJG5PDWNL7lhF/ jVhYzCsuPpLmvoZ6lsKtjQ4hu79NUMdv3poeqK48hzBEQYRLj8AzRC/sgm6xe9CxD6JEJwRteyr6+/Y9 /hziGrDh/3dFdHvNfLrKkTOvWeobnYFC20jAggeos9QiiaQHqK3fe2T1yI3Koj8/ PLjVttffvW2NSNXI6APuTyHAzB9sDf5KDMcNG6ImwLJphay8ipJv4/+RgASuot6N/D/ XRKPmfRogQ8ewiU2R+BiU0O6c6e+Cmuh9flZqZSb9kx5D7j+K7bSfA/hR73B5uw4ptZol+0jXJbXws+ pRy+VsgPd2sf/ZnJMorb9PWxag87pO8B/ 4HbHTreHkXwJENZbalC4aTiwXOyVWESLJvxZqYkGpIFX2ExIRK/aM8ZX+paX4p+ J5t6n9B3a8I10hlvnTtYzw2C1RpZ5Mq2hvPmPodO0m/uNP/cfyDIs5Y2idkzYbz1jqz9z81uI/ hL8XIh7gSxmiymO8n+79p1rTeFG/XzQ1pxKD100Qk+lweKx+Ug0NlzSQy/ KZxGf1axzzPe0p4AI97GpFGi7kZkCMPiXw90O/XXwYRGSPR9nJWDjMQCoH+HP/CWfDfXPiTb+PfCF/ aW4IHudeGEMv23C3Q8H01kPQH9ZgJRmJ/mxLVSi9bo36CpN+ooDrFUit5U/ K2z1KyyRL2kOmw6Yzrl0mUnp8XHL4NM2UPHmuXoc5sY5izjVdms7tR2PiSW8o+jxduiIj9S8KGT8+00+ 7ur/FGgToySo98/ on7kjE1NRLPjyxUaSDz4AVdkiVXniG3Sc0fzxeMfUmhs90VZEaaNu92fo2z9dIyULgaKBJ0HZEu5EI1z +j5Mpoeu09+sgAWEZ1ui7js2qh/ZJlf7G9P79xHi7aWnm9j8pw5lSG6kStIM+rXO8z8gjkyKb9y+ JcElxp36c/ tdNZkABap8nf0fu4koNYVhu8meiPmVn0m3HdqJFOvEbZLDKher9eTDOot16m2OKWEPgIOSga5rh9o79l aKCnaNlEifCc9YtD6EnRXn7chovzm7e7J1D /ErRviEtjem+0JGaJyEppjk9J1yl+/jvPBTbSfi4L21O23Yf5sSX2HhUjlQqTHndxJY6ptLku4E2U+ NrZWcgSj30zw1a0KWZ476L2FuAwQB6BbzjKOwDuHjYY8jL0qEwihKww+Wx04A0Q+ ZKryJk9zZLMiFJyfdg0rPbr0wzf67qo8bqeF7rGvCG3dhQoq3P8ojan3S4b7FZaHb6g3/ZdozvA/ n3ra9072ojMdRofGSHvLHuYCu06h8h4n+ oY4yP8I5H4FmS4gZe1XjyyVS0oAZl2rcDUVQSkvdVW25uYUsbfwG61O5f8pf9U2+ TqwxqAXGija7xhtr3O8kCikyMTxmRWoENgAh4geJ0PfmhwKgwcVfU5qQoy/ M0PP5L7CgSTq5BOkqumyydu4O7k7MFIg8Pm8ido2ymVPW4VkK8M2Y05/PWX8o8cawqznAbITBSOrqx/ sZBC5zeDZcl+o3cI+92wKRIcwwM8OumVfHbsIj9nPBe2Xn+n+SWe7d5q3poEMsQy/ 3EG5qatj75g5HrsoU2guFYPhhWoP1Dq6R+ZgiH7cg3Oiq+dv8j4auJMv+ z2ubKb9SQ7v5q78TPcb37Vag9Dp7giXS8haYhk+Tcm4hn+y8QJAUDNutzOkn6NiJTv2x6FM+ 4mEoh2gfJ1NvifRtraJGLtZVVkjOW7vcFF3xKwUpk9oMKmWHMowrsZkcvX93knBmOYWNhth2FJ4KHRcs NVE1o /tRX95Pi29pA9chwxL5rfnFfGzzlCBIWnmhiAif5ZnaDkl6RyHApAGdqwIhpUOwsn4u/Rtb8N+ LjJ6dePmOt54c221b458Y2PedIq6pEqBdM0ua2wGxHIFfMr20jzDvU59JtLjsOtsx0JWrI+ m8QiO8afhGGwya9G7vz90SgNywrdnOMQc+ r0cjy0WMOvY11ssqNw8hjvR1fkxqUChTN9GncNSxRymRhdebNkzxkhQrSw1Hxfr4unE+ 6wTftjd4qodsAtQvsrnxo3LfP2NM6Xj3jHb7Qg6WkAycUDftWjFHt5976kuEK392FOvc4e2DhT3S6V8i HiIe6WvyHkteVeLHSbnLo7g /QicXUw266cBQfKYfKAwhVizgeh1seKFP5Z1vHqYnFth1DyJBqhNrivdxb73tisSVSa8P12P5n/ qaJG6iRxlrYKsf4DkRK0TIH9CqIeeINIRvuM9gooz6QlnPQHlYY12cU9dwN+cw/ JN8eRjj6HH1QrXFX5NUI0hzebK0nJeFZz8IxIZoUmGIMiqpdZn+ BNMoka2aaAtRK675OCG3ODDaZt12RBWRaUh+FPzzRwrP85KTjvdi1rChxUb0O2UarDVFpdutDsOknM+ RpqNDLDWx9egNLNjlLWTt6ckYVY4VI2psHdiIHqEzv/ UIqLc9139atppsE8LeA7fXjVEqb7BCD4yabnCxXjj96tqc8f52O5RdH0ZKGQqPitQy1DjN0OKpn4RDDJ VXWRMMX2inrJPZExi6BfW6q2VB3WmrEnRKVyvvjreicFnLAlxEnhsNyGdvfyFpfOfARXAJcTArQOLcVN mK7hhiDOmepEW9nB0u0inM4 /Lck0TCJ8ok06v/ Ny6e19vyppDcmUqvCxtdZSNZ87pJAtXrdK9arVZl28JkQDjMYFRtWXJ6KPTFVlZVaRSV73zrKDwcnwwe dgfWk9Z7WwADz99p5TEHqYGQC3nkrMD4NFCpmNQn1bqfVIRD8GIPbeC5HM67 +3LgmYEzZ70gdxKvcjs7+enbVXNFeakotRbsurs/J6p108q7UTMrzDR2qjfMqv6oLzUx9BY/ cAsmpRQSsrj6ryrjmbCjRLt0fYbuTz7SQETQlKbyybSipNpQkVGaWX8Vi7EBERjPynRWPFEsRTWYJDAI 6OXoHqUAcmu15l6P0BATJfpnPotVFQON6HQrSGVyOzvX /QT8GbJkPqM624j2WL2gq7Kp9aUpzZM6i5zBmV22z58aaRZwD4wgzs1I3xixhIPOVunluO1l5NkabTs+ AZNdfdTiAVSlMYuqz1xbBe7YAwBzGJShHT6TUUHPBAq4EI3UXPnlauuiHV8e0gSAjxkvFkkaJPbkeXbg L0kSy4BImlRQNeS4VhG8MscCq1ryLMxeRyGn /JEpImXa/Mu9VCo+9TD2cfFhyF+bctYzcZJO/Y80N145j05gy+U2GT3YaErUwMDbmpb47Dhg0Qw+ 7gE0CIWQjm4dBBcGa6BKgB30tFnnxv0PEB1BQac2WhuPN2RL6nF85xz8qQPVKm7ldofCz58LNR1vf7tP xhWbRVD73hSyKVxjY7jcVZ / TP8qbcnk78pyO8sVgGSHOFKUdGlLFzwkHIVGdsgOw97nljwSKRzFDUCyhV1cfZJZIUhXpmvIPZQM9Kpq pzsJDA20l95757raw3uhYAnAVd +0uwxx7KaR5nbboUAl7U/ eIiISftrGZvF6jjuzthDjxWG6D0qjv9aR52FlMxcxCmfI6YsrSnulz9X2WFPZMY3+ uPvXpK6DXqnpTHQfldYWTomf1cHUpUefhVpOLH7ChnpVhH4Ia9lvMPWZpV9cQ869NIpAV9ADCsqXV8pK Sy2Kmytz53pkEDpallKOsx1G09TOGdQyA4KvuWlYnaXOUpFyeiKnEGOoWMtc7kRIYf5phd76UyuxFtm8 Cs3DyJp9xBmx1nrl5ZTrfp eOho+cYP5bZsqZ7tOnsF5TwZ2m8YtJjSayb+ HwPjEo6bScpIAaHTwdzf4u9I6eiKbGNwYA6ANG1pb7ISlsWAjzdPYj9GxL9GAXREBuYp4BdeLQce0NDK g4KjcstI1BrvVJ5jRo9zcsr7hGj9adxYErpNEgBCCSIIwyXuN2Z5ceDGBXOgIoBYhJSdyYvdAHbUXIkZ IV5H ud7UfRYF1k1QSlkoJmjPEEde2o7eXLT3kz0mzug+ 1zxxIbT0HSeYyLyiyorsrQP60t01pevLSyVKAepn6Q7bTp4/ ESRAc3z82jPqeEm4QoAJuqquUYVsmXBQe1ikNiZzmCFiDFAWCoBk1GT5y4r7Hy4/KaKXT6s+ v5ZM9LVDE1lXwGzRHWPDeSsRES6rcVkjcdlrRWNI2Mn4s5D3eH4ykoB7P258qQJzxOC99wJSU6KaeWhB QzN9UgMctFBDORjblD0YGLp +ieXjJXpfgzTO9y3idhHXC0yZSAc7bWIWBvwieQkFzfO2a/ CextizXYLMoZf9IfY0PF33Sb86owr518krk2fIGKEmXzRi/ vlhdXDf2Yj6KfBKquY6X1iucgwZ1GyAe0sbkTy9qxJe62nv6B+FjJ1hn1vX+1zWstyLT/ ECjKoU45KfwOzJoSlGDmeIjWLVmayqbIlNz2Z5A4qUSHko74VAy/Nb+ VJQq0nq8y93C8dVCrXPcI5IMeEvSs9alD/OhDM+GRRP+c3h+ TQhbzY339v4IS3egF1JBITlT6S8vgZ61OnlVvxVOwTdrPhKFO44ShtrviVi9N+ HBiw7q8WizrifCPC2yjjvkbUvbHGznTM1SSjXaLjrXz0S6oirrt97gRJQ2NSBdLMeUXm7nrUbb9W5uN2 u +ckB563Uq7KgEMiOK8uJxbbPXDrEHCPq0pn0CkqO7flhtzrGpu7dgHHoz8Fu/mDcD03YBDoV5De0z/ iHSbS/f9LNvqPHPW8Ido8gXkRuSpGbg3knswDOaddcvsfMJ+RC2XeLgB+c66amPOl9zMwKS/ DUpbQcVxc8hwi55Nu9QWlN4LY5hdv6f6ORHQLCRZB8ZlpWukas3aYSiXOickdOfKb5CrtH8V+ rhjWbjzI1JOUi8yjN8KJl8c69Usf3e4QCuyP1UWywMiEDYps3I+C1r991e6OnaF8k2i5zeC7/ CT040GlS23zozOy9tVlarkGWuzKoTfw6QckLpB/ P3UcDCBGwQ5cfdQbrND4Fg0hrTdW3V9qgyOsnm5mR2ZWpTyIMlEoyVjb4SkdC4jMZIYN3z2sKjHGqb9Y Jjz4Imi /7p5xOHjLsXr0OtQ2JLM/h7d4NkByER1wvlnv7bVuttM4VGQaiei19yFVZb/ owynFnIdjUBa73PAQ7qQtfWjYkUcjZMdKNNtfanrrt/bRm9qlopE+Ql9VqxmJvL5SBR30gsa6Xk+ Pt8YPaEmOqwqOsIjsJj1peKPf/9F0X2ELsiY5wqy4CjEJ2k0c98hmN0EnQcZcbw9dGh6ac4H/ syWXW2iC1ac5DeLs6kG+kvLSyWXSNTjlK+ vnMARi2OuXyhWCmtbfRCDGuxN9aLLnHMkNvDcdvVnuRyp0XrsdomQDb0T+ pyMh0LxE1zUqSyJYUmvGxEAQzTvxz1+jWW4aFXVduAoVKk7QO7h5+ nLlMyjx8diQIMgUGc9ohoey0mjqggqDYBR4ETPLmvrbTrMNetmbGr55TqvGVziecHsq8t6riy1MaG9+ 48Q+J90UXN2qtgbilm0BVWF1Hw9M1Bnmp2Y1BM1HNAoaFx4qUoOVZCtcTlIiQKfGwb0I8i+Hmua/ mUcG46kuRaQwd7/EvnQLPnbNNXBvU3DCsdSddyzD+YTNQPRl0PXIIpcVS3XOhwFV2i+J/ Yq4vrlPwCreryQe2AqxqdpcP26BMQ7leXTHM2rtRVstjEhxdR3lryCqRbeylL2dkSfYA9emWMu8uoKI1 p78fwayZ9qi2zJ0vjtlj3vxM5q858wS44TeUxrWTElFfe9hrRtNUPsz98vn1oSGrqEiuDidr0xSiB /6gsm6D69c0re7wb98m+71QY0RFdSsbkGQaVoWFoixZXj7MWQ4sAKznovS0wmgLHoeYk2cY/jrSYdU0+ 95xVpQo6HaAl9jg6e3XN3WxnOE7t9YuHbcj+yudfs7L0mK/SB1n1asYiHZ5g9mBVOg5+fGnxJq+ iL4U8J+Kne3aPE5FmCc7kltg5hmmQ7+Illmi5a7sjEooKVL/HEJav0ypuzWg4MyZ4Kk/ABtr/vuToO2B +KdS0jU/ X8wUnmizFCZiCkEA94BjXlIusc7k6qkhkJYEaGO8q2eng4IhEFCISVxDFH3umpJiq97mp37I1ip+ 06uw6OemwEuwb6MWPe7z2QCytuqeA4GYCdhubg+BUr+w7Geii1Nd23N4E+IFtd/Y7YItWnPj6y+ Gu2R9LS0zWVh8GszPcy8ml1xwRbnGfMoLM6ny8ukza1gDJU4zPrVKivKlSVtPhU1PdW+ lRdc6h0Gew3oi9mD7zo3Et2b4bV+mJcUQbDXJdhYCIDuv9AaNa6TaGNOnLeA5LsN/G+ mnZbD4czr7Fz5G+3WME1pHIc7b3YkR5UPmPyax5S6cn9Oy6vQ5jV8e8LsbmcaRXGcSPA5r+ vzQzbz5TVYAajL/Pp6rRBwHgmNHH6F0lQjdju4bmq+iEF/ zoa2Gd7qsTk4Itk730TCCqU26iTI5lzmL3Lf2zrKgJDMlwFFD5zlpwXBnW7NlUm73K4hclGqpVSO6SZv E4iDga9xupDmroD2IvgUPZgpGKRrmCvBiD6ll1nmdrP3vkszhUn0psu + GR8jw6d9DfrKiQcrmdl7xKGfaqyTJwTT3F8wbCezHVwcwgU46Im30YFpwKO71FJLEkC3GNHzrzF8c5q9 6S2Vef3n50N6ObdLkhFNR9nUJgn5 +7+2Uh69kfeRoCCxmJYgh5NNO59PZtcl1y4YpFzMd9+ q4jzoOQAylKne3uAx2je8yRLudhdQrJj4n8hKjhyS1eaU4OT8grBCW4pOdx5g0T4K7O+ A9plX2ja3J3ik5GIE2S3dXNfCx15XG2O0U5ANA8z5zKWDYksB4EDAwXkTXjm4E7FohlvYAdmNR20QrK8 89uyA0wnyWkz2cus3tRdyj6bmN35aZOAqj66PnuER281wytuyGXSNIUd2j8IM4S5XmOovhCEiGAqgR0p ahOlzPLaWv uDRGjcO5vpuY20JKJN3Jg/ZmK9V46YhE0ABYmDZO0xkKXe/ snl6zy8dvnxL5bsqyRcfN12EZ0f0UESjmE2PNF/O+2GGCN/FWM0hJzEn7FT87PdJheyo7JbT8qAu+H+ ow3X9m/aXAqZ0rhGpZrhY6d2qbQTRKXwDqSmZqvZBwrOKegVRM/ GWIBe5yaAQ17Qxj3VleRYSrf6IuldTlmyEiChPj9NYPaucavnFAtShforbvoKSlUfCO2HvmqkeAgy9T1 lQOBbp23zHIK9zT2wIQ0RzFrk2TKdajJLMQXZ8yAGLkEEGtEjbtQVs6N2mBOt37g +WGR3PyHzCYE3eijj0kd/DkV7ps/sKd8QBTeSKIOMzJoCGDrkv8R7YqTYlHmzjmR3ru06oea3AVuN/x4 +HRfkF2S3D7buHzuVh/o+ h0674CacrjTf07N781UFF9upecu8R7xG8TLPk86JxM1bo75AyGPpR2ez7MskQXd1pq2dqfEYlIOc33Hg 5942w6QKmsuFzogX6ILgjJMWPYxI9BrzDpNBM3pOHVDTcpk5H0B6uHyf7z0kBGrsMNAKCnUC6w6P +ovpjrkx02zGw0PgFJA5tFOft+ CmtzkOwUPRRbkQskZMWSUB1k2p4pdfkimk43sn0Z706MdDmkhT3qxdYPymJAJ6LEvLwgOhO5mKulW6wT 1Euuuw1z7vLfDsRWpNFtmTA /iJqF/ x96gx9l4Hrts97R3vPyzHzf4yH0vQdRkWznKKAU9mVdgVeXKuXjqQoPdwAvPQkj4MZABcnmXjzg7axyO FxYvHNbWb / tCr9jzknI15KkEtJofcwcEYCKvwEuYRkKdujFrC9YryKG2EJyp0HDb1ssXKM15Xjt3euxRo8HUHtIahx bypj9kWvgFF5uyJd4GpCqwFfVjol9x2KbIJnyqed /uYK5613JiAow3xq+h6h7zcdh9GEkumbS0zGFk8gkA3O8mZjOYHvrimRfl5zI+zh/ KzJESjItTh7Kei1i3Uqv8wum455cE3NAv1DkCA9rksTq0kvBXhaz7RiO1a4n4yqsjp+bRp+8eH/ hlLM6DZu6zcKmjrzVoR1lACEfQNewxwMsM7D9DyOMpNSH9ejhisg67DGC73R+ ZltJ31sOHRJQHpO8Fnj8Gg7pBrpnXP7LJuVWHFknIiqAY99N7iTPH2rTXK9FxZzxFlDpb6NLthBaAQJC zgu0v8Iq9h9 /iI6Y0zyIYekX66hnleBMuJcNewvI5WGPDyDlL1av/ nGzFGudQ220Lx6wXwzsN6LXKN5WBHuiSFSswSX4bcPljHoxCCuQE7qDQgbe3nFwKqpHFPJg/ cTzdx328Vb/vut/6t/fl7JST96GCggyKJak9I/ fqWjuo53e9LhjR2hbo0S06AYHTplA4QEWPgJhojRHz16FE8cc9NbQeBJQxcBBCoj13NFWYYavxLrQEgd Y +1zmizl173sI8ImLTJHkv/8AD+LuAx559B867S+527/iVZF4+2q48vfpqIH+ QNrKV0JMClsfpu3su07IyG0K2akouiKE32oGJvDgkIx2BVaSFQe915+ 1FEkVTSWRJnsP25CGEW8ZVAERk2Q4a+j0fr/wDC/LfXTbv+ X76iyIbjtnHL2A4QyDQPJx2FHryfIXnhQxnjC1TVw0J2nuRT9yHDksDEoCOQEGxIGjQa+ MRIaUl2zbZyfiabtOFi5APIWeWzOjugcohkSb+ShiygIq84ucD+n3/yLMJq5k6l9Djoe45/ YRT7dlN45QLJxls6U75genVjX0QUn52vfvDcv0VOVws1SEbxamsLkJoLAGYT70cAhJp3K0anf45psZcI LCTEKPBv2HimUiUDZ57CTz3RYLehyZ7A6ds /vJvfW/hi6Vzht4ZvtNdjSIe8Lw39x6Xyn0uTYAZPbTU1M8YIkyObPQ0z84ODP4MYGhdryZ/fjHUd+ uC7eT3QRU1FHoOk0mzHAWLuxmTKZnqLA1weDWoncmFWAb9yju7/ fcuqJKJbIo0zapp555NtXmYU50haypg5Z7352GEL1vnzmyYGzSsr0I13XVQzN8JS7mIaL5uoVPyuoXqZ BfIQoYLTQPkhY7QBwpbfCkmlY79M2rVtdIZWl6dRauOwEEBQzaYL13ozwnz4c0T / dNSLbVv6AzzcGstakQDRVaDMKLWN2Upj209vNCmPKMkP1JXRZHHlbGPPfk68kgexKPZ0XRrtD6U0Im6G ylVxXrI5WpTb297NaHDrFT2VksO /TxL3OHPRikllh2du5oV106C1t+uBymu32930uu+ G0Q6iyeMJJf5eK8HoLW4LLdDFiPG1eDyEPmSOlHXD4HBgslzMLTUa+ XW02A0YbFjOhhjEUZdDQDuTRwZRagOoAGptFLV8iK12JR6K8EVsdmcgin5M5nqZsRVQ+ HzQa3wyISCHa9tAxnKkg67+fkZ1/e/W2Gx9PBOlcEZDb7FMNWgl93mgn2Kr82VT/ 7j3ue9EVFTSj68rT25zDO1PJZ5hoOC5W5+mMwdqVNGCf1FVWhPkNICtTvWEghFUEEI39v9zae0H8ps/ RrjrDdotj8B59QT1oXP4rAhpzYJSuxD1W46QDtfmLjLZqSDDMhcCvAM4YLc7SNmq0FY6ds2Rp4uy6P1L GstJVGJeprPKco7jCnUeOi +z6al8JGmA3CJTXOOISUOuoNIrBu8K76am45JLa/c/9Ma11sN454/Hy26aO+ ixmGdZ8ZENGKAhpjPHUxpP7K4ELj22ygGQsvIOlnU/ N9UPHFkZVkPB2J3ljOdfWVNG68RqfjTUN5PmIJqpuWQ3PLs329tcOPb0anclzfR/ IgQKwba7u6Tv8zfBJYGSDK0d0/b17xZxpujOr4yisy6Jfft162Cg59DEgihsWed+w1bYv14E/ HgvGUS0v/RDeVKsCA8RUZnrtfhzoYhcMbsJHBSviAlUDDef+ VXx38D0laQI2BdlASbeOqfx0tT9MBPWM02rtXYkc6ODtzZ8w93LTBttAqgyQFZAWTTAg6jQfdQyrvX2S FWi6aIRVdSDEMR2Cjh4VWtX9mBAGPbWaiOjZvKMvCdHNl98cJh +0oQf38N/FQ9NJ861VtmVuOrLtSzTlExiQpMVFpYfa2mUApUKiZ6YAypwwO8/ UZKOiSC8gd3FcMjdaQarPvQJZ8VHHRkhvLqiHZgn5sRoNt8DcXFWmVigN/ 9M8tBNAVD55oZg9LoTGtiGe7PkWk5bDZe6AGgSxo1kou1O9FIOZMSBCaADc5uJrHxGKBjwoddZuhifDN 5wDyRgAH /drxK+K2XzlLjOGcc16VQZ1z5h9Uqc6rff+1g6uSwFGtKe8bTqUrgBlyYo5EIYly7/8AN/ V0SjD9q0FCq8cxf9OOulunwdrQNcSNfUD8QHoV3So6ikrLMTDMTfocq/ C7nxzKdHcBefwTNqM2EYZ9faXBvwFxaZFxTOJb3s5RbjWDcmZAGexQHHYICQmpD75rgnuTq2iMEuF8E0 Maqjw3 + s5L8oIXUgMOvCRxsWvm8ZUyZjzyVdOTUpgr0SKk6jT5Hkj5toDpyF6z0gPp6Glpva3zAoAPkEPgNBOJ8 1T2tnpOtvNA8mljsLzt75AKErVSYw6BNUIcX6HZhvMBMZ3UbeMtxKJjIsolWDaXNcVoM7Du3vq8XgDqg i0TZ8upvO4PEPuhokB0oveUNXEfy2ZhMUSiNamQ2oJnd9avI4o8 GL0V3yim7nHPjmLXNoUqwimIut5cbtbXUX+QdZFXGDmKE4JmfSfc0tanX4dOaQyXbczzlCeZl+ FpuZeBe5bvZMC7kGSuQqAgQbpLC0OQD7JXnTH8i0r6XhQemrk8go5jV2uooEpY51VimDsaBcaeHgkqWf j72wxISitq2mmP7 /1MBrW+KQiAa6cfmzSMtRoILn/cxgPda8mY2pYIBLL7cqvijflnls/ 1malfV7fXq5JhatHcIZddDjfkvzt8JLklTb6x6x8hY629QVzrCHaSVGA5fnB+ktF/Ym/ fln8DSOolzq5Is/J4myhOgO8N9i9t/EVraxQyT/aNMs9X+eVoepjve8Vt8hh3OmPLPkq0u/ fzqUWbBMxxdrv6W3g0hNeL3mPY9s9adwUsfq8asbwnq5iJrdapuwor6f/ c2oNDPrL3JNNCrdvTZHl9yCDpbgX5285LWnJgx0kt+Mzgq7SfzpsnqH6wk2pXsm4+ FbQ8bpUEz4aagzPKt3b6Vj5WXTVOLGkYVnVkBfus55T5cmE5RmEp4zftbbes2qpDs7lFCCADW0Y8ypwX a2l3d2JE4Oj5hOgwx2xKPL6jRijDfQMvhoMhjsdo5wlKyzsdJlGpVuixDlfAV0IGHtaLhbZkN2Xz5PCD ey64a1MKBmZ7VsFmSC0JHLBweJ4XzCK4hmPkczxO3WBOpNoNxZhIE7hg QBWdgdysattTBuPFZjCSXkJSCy1nJ4GZ0TKp05XbrhKDrJYLM4Of+DIaiotsH5Ec6N/ ZHEpDCLXKDZJn7UDprPWT6PeWD3N453pSDezwoUDNImXfj/ uFKzSTatAQAL8koA20vDb7AtbIWJaREhSJkOZzQN5r+hmrwaZ33Jtb3w3QwC7V3Rr+ UsN3ymR5UmOYjluh6EftqykYl1cD2RM+ 1h42bI6v0Z4ter0vrqm3x59Fd5tlHBlx45MC19rT7NyP7Vlq6qnulKL7+v87ydOtr7svLf/ eP7tByhleHsGWm07fKRqRv09nzWdX5tucewwOC71zF4J+W1xghIM7K+ Lyew6yO0WlDvUQ6MI14gXC6bCMT+zLDaXDKlpZw+ sSNA3GGibKci5r8vvrVIki49EizTQD2eoa6N8tMofzcTS3wxVsVmI6vQ/W+ QZLlDk8ZID9xJsohMuWT7qOhXzNjQOrLMY7/LSE9aaFxHvIX6tontoHhg7r+MFgtzrMA0+ sjJV2iws4qA/ fK9PC8mpzELfux9et0g8hSxmJhAe9ooM3ryTkPTng6ea6ts2i1PRMn920Dhx6pq0CyrNxUwmeqDWoGEJ WHhcOtpxGciQfZRB9wBBwYMS216KajstnXTvpB9TlBNCeRpCpbKhrnrEDXlXXOmJCjW07oAvgKualVTT ASI2p8d0ATDr25t9V7Dq7 iCkr1PUf5b24rF9ubIIpGJoxm4s7zyFwNE7w/QK7Mbrqe5E/ RWCkfEfedmjpWhbXJOt7jyejV6l5Hqz5RvmaccOm0YOYqBhRS3E5MWsHizWnQ8lOxYwVtVz0lzC6Lesn 2hqPqkTivO5F4qcTepvcjr +PsJ9lzrgSoBhAz3r7b9h5qshp6S/D/mEPnUfY9G4joxk5u8Ty2IAVB7HBPfu/ 5nXvSviv89pJmUxxphv+JbH5gu/ ERVL2YQdPVYWcBAMHBM0e5cRCEAB2kbzDxyV96guV9Qr7Pqicfg9p3/TviK2t/ UAlW18tnsW6qtDhaklwkIxCxA1v4zavAhBMfhs4X2nlXX6Swu3wzinz2YmN7Z31Dl6BH6JpA4tmoIGWB wgxC78b21rd9K0g +vJ9t31M2t2THihQKZ6p4aNE5afCS/ZvP905RaU358EmbwUtAX+NLKMjKiJ5e7eQ1Tu/ UF8XrcHpKRbi69lv7qHxXs66i8P0TLQlNj5m1xqAF6V42if6EKYwAlm573Wcgm7pCWXIpDipxoBXwdOa znhjo8h5vtSphmo8pXy7ftlx1MiB7ufsMuq5E35eRq0Vf1GNtEcy47YYe0sipmK +tftXn/j/BUNj2lZv6kRf06c8hxmcFamr7/LG9e3Tr2yO8WkHGwTcgayEuyEz0cbw1e55/ z5ocQS2xCGT7J5ihga/aDWzDoRr6ve4HNMEKHu+ DTr2YzjybnWT7dwvuu2bWBOBoBI8ZFjfkzdy6fYxIDziCl3uk8spb/ GIpGhlyaUK64erDg0vfJiiSsQ2uH2ePToFbqjtyDATTIjkndfH6UdWpwiXF8S/ lq2oymiLQYbk36ltaJtW3r+i0G0BCdbj9OFQzE46jr9xeetzvr1PPF0rrDW+Q4dIt/ Iiin6IFFK7tkQojxxShHA9SeCYOfY+ IaHDAlxUOsCxns7oJHqoHG7XNj5gL3oeQcxJINVcuKGR86KyfN9JQQDMZMMhcIhVs6Ww+ KBs7U5D2cJbEP3mEc4jYJqX1oKK9DcW4fqM7dXmRL4xvSYAsbGnDrnzpsgI751wUHvBEoNkADa5Cc7f4 Qx3wG3K3eLw / p3xTcmWCv6CKao75r40oCnmXWyqIegfYdoSLX6f1Ya93Hjxyk3o3R4HRv5tsgG7L7QY0rp6HtYzZOcs4 + agl0e1BhLUPkJ5qefbomxaTt6TK0wg1dP6Bh0yAJq5xvjBDDihfd4R4PoSFfA1NBx4BZGFDIztmcovng ilf1un7ezxrb4rUKwsfxlBaJbAMXcLgdzaiZlby /mM7oFbCZosQWyo5tr9LJp9tmeWt8iY6zcSZY1Kuj6KQKF35AGsdkLEbWUsSQsaPpuQ9Jl/ bHD4jmQ8q09WJA50kQ81AdT815UCecLTdMNCHOeDT572jpjelTiE1xy4OMIqyGL/ i4hNzg66XEsKRlRyoXWEhMfuEbUl3kc0pU6U1wpr6kyOSX0sqCL0UEGapUtmRnqjlFlPByznte+ 1IfxIpFWQX55eS5QuV1K1nCayBDghC9OUSzS42hPYDYCNmx15bPsD474kKKODsNI36I8uOSLPJq7OoRV DIXT6P +Gv7SC+DmEPiM8Oy8Vum7l+JVZ5ogKqA0+B14UHqliFsB3Ni6TyP3k238i2v0ouHncj33szHs/ M7poueTKcPPvkPjHm2k0zO4ZfVns+ ZJeVS8nCtwCE3is6PE9K1D9hH6yn9UVU3yu9eFklTvcyrJlo3g38eW2at9VZVov8FrpW/ TXQH40JjXUk4ZPdLJ78RTXP5dguUWpVndVaCEjcvsXlnaaqmgDsjtPL+ kPTQQZY4oSTkwe27GbksCtgfp1w+ uhqpsVZdVoxuFiqmqUfQi6FhdQpUl6IBEKZ1TWOHNjSG66oRw23zycCiSgBQQoVkRbE2a4q/ JH05oXNKFieSiD1kdH43IO4Gj4cf6uE56IYkiTRujar8psPOOUZI1nmVasMHhbxnKxWlvtzPPvx5wN67 +J5LvcKrV/zjKCWJ7r4e57V7RE2VubGMNG/ QJjlyziRKRuVpXMqYxkxvTLjiMuqGhvrf6WdxRGmA4vs0fvTGljLM3Uvf5DjlD9cc8QNk7sP7b01L1aD yRhtLiF +VUnvGjJ9hQSMVKhdGlVLpM3sx2q/e8xjrLJ/ b4SXnnPJr01DnQnzg36uv9sYmbZS4ab6UXs01NxYAsIbGBu0t30FXxCa0P4XbvL400ZdD3sAWfmtUUsj PYMzaRzMZ6WehblWa9uQjQZddi91EEu7Qw / f6yFQu3pFlk0b1xCEsNI9dH2Xzm2oKTUULg9Mdtnj8M7qV8xZofLCJfnNUXAo0gT3e9ojvQudSRngI7u ILMzLEvdCHtGgdoLkzQ4TIk6wmbL1 +mlls3SdKX3nzv5il6RLePl6aVz9yxL2soWXkRAEOtiRLJfcxMzCTJwC+ZG0DWUd497+ aRPKRz42HPRc5r+l+LumR5N25b1a9+ Tatm7AY2q4otd8zMj6Ky8pN8t91dnfHEm3fefJn5SlWqb3goAG4idJE94FjxoXmtqP+ hbNuzi57v7HlkbmupE126Ua2S8ofOfdy/2ElGur3sirNv8flipBzkTsc85tPVOoRcoyySpS9iwz+ 0fG0lFUJxTjtwZT2wPmWpnbrTsD2l55O0o7k2OO8Ij7uWWuNCjyGAzH6E3gFNCX7xg51rAOnxuCxoNZO gbtw5cJ +MzJDsbNZPtVoeznjYJgaRVwdWdfsIq56ZH6U0UTYgUwdbQRitF0OvSYex5+ Zak9eWL4HnPafxdMStwxG9wLp4fylgyi7LPorOMlGqE+Eh5MPLVzxr9H9s+ HkUCLDk492KhgBsQpi4Y2kXrvz5S4h0OdpL2rHb6s+ fsyqPsid0J1xbHSSUyjGRfqptWFTn55nTK52wyIA2UiobRcoy9kuGWVlBZl69KlSx2Cz20Dhh8CnskVC z4OJ4UMzLvyPcSlhg8EzLEgFRNKYg +BiBOgcKDZVBiwoIa7rBdw+ KcQ6sHieKOXMplONOzIBFiZhR4zuWHNYiJvcqhq4S0ovVAkY46nXVf5cS4g2Yd+ S16lFj4iHNuGq0fVtQkuOglHNr8Jfp5w0j8Sd5BvlLhi6o8MyvKINT9o/mARaBIIVOl24uG1/ etpTs5wI4sHR7O3d5yeKCZcLepPvIf9j+F/it29XkB/LuxfoeE2o+C/RJlUbQ3tJb4Mwkm3FaoGo1a7+ dy5i6KtB/V0iQqDhSuQ/AdcnXnxo6Vm1yHDp0TvvrHwA/ mkhevCSgoqUhbjM7eP42WWpv8cwfqyLc9z6ccs7Iy3tOKXSYEOFyahq+yj/wAEjfi1+05tt3F7e5+ MDffm14ILG8r+LB1YIxsDsBABmmznU7H+KDqhddoAhD4e/EPw9Bo+nrAvIfTvQe7rxz0P/Dz4d/sy+ KP7d+EL4wlQhJ+BKwIurC7ZuCjunJmX65PS4NmTv+ QuXnUbreVbcbJOARj2fx7gGPZe5rJ7yJ2263MppAZZv9gbhiIEUZy2JsampHHWZVImGHfoQ1NTAU4M7n k /zG/bA+XV3LFfFz4iMatM+eN9YijB4J0dYOG9I3k+HkwdWWK5k+Ooyrc19n7Iz6fu5++MdDgwrxk1M+ Dlh7ubhWn+K/LmzXCuAMt2RbDRyQ+cDQThjBa9d75+FOnfn/Na+ JEcg4EYtoTRkVINUxNc30EYJCC8sKdRy2Zj1a/ay+FPw9+Dvxw8X+FPhHq/cLIjpj58dsEoX4+ RK1d8r7uOIeiEeBIpzdVp787ANC1VogCzu8o97RK2QBWMtQ7CuXtqk3GaRUmHSovxE1u3tm0ulGUzMxa Ha8yj4Pk1jQS5aknpGNXla ++ qs8FcnQWqh1gv11r6Cri7e7pNphkYIp3MRVpuSk3dYIudXMveKF4RuDWkzFG6OkbzEGqjxsxrlYUdJB1 Qo9cZqooOIvGfPcX2ikJX6SMeKqPhJ9JJtQXI3ZSD0tmGGA0LZycmnWJFlT9SZLqkPAqbUwrX9zzK b+Zvv9nb3HQi1f+DWLkXv0o+O9F9FM1/8aD/AEXT/Gckb6kGaiNUP5K+ G3Q4uDfvQdDrna6OWgorKtu1xrp3Jatj9F1ltOtjmMn12uNkx8sEtAmexmo4oc1OS94oTO04k0BLVrdq zFKr4jwlQdeoNTiWcD4emD2SbksdnussMBf7BzU6YS9RZklU8r +MPb1YlYLaMRY1QWn39v3YSoFME6dk2+Gg/l5P03b9+061quiae/jtjEf6uf9C/ NPy3lkwgfMxAj44o6dj+ Bv2fuiPctLrG7fPfPBRiBivb3oqLCFN7aUc8d3IGBAwuQ7zW6NuCxcFpogwTromVDpXTePx+ 0pDTrPeacRxdiiXrSFFwzQaGmtfCQ7pSriusYbL/ lzUCR0zVTUxqr5gpplWMR6AzqrNTtA04ozSXuqqdKzXuURDj4bxfJvkXQvX0cY0/ mu8jaf6x0YtE6NyLsbUM6DLWn4y9BEoXpk96m7HwlwRJ9Ao92e6lJL59tvDyYEpKyGNQ26W1oajr3sYK q /DH16Sh6xui0K4r55NRaxBAAfpkLAluOCP+RyHtPX51kZqAo9ESxT/nkDkdOwjB6J0W4vf6M6XQy/ tszSUp6qYlCl4WmE5Ue3FDSTKo4F1EM5mnYX2vgM3xy3sF+jwxOW+ 1yVbNPzyhBPtH3HZA3jo5Bj5mI5GuQuKVJ5BBhpsMxqqokr7j6cwswbCodvRndjhN0G0FyKpcX9T4hi6 mtz3kwV5phYfDARDP +3LaAn8rMKDXtWyuQwCKzWtII499emSVcJ9buf7j4L4GVk3fV10MwTv8BhYwIG++ Ies4DmWvGAMnHBWYR7nOMdq/btW+ WDrc3m6BHq4Ad7nzICSMkYKFu21i9xVsgk80wVPEtTv4IFN3v2qQxTc9PTyizg5Lr8p/ P86rpTif4733f6CL4iKtGdHfkmWjFWGNVpygPkM4cqt7k6BmRk+WKy8+ SLfSU9pXo8tPizJiHZJEuorx5/ZgwII62BSzZz7/wAFc+ aewsIJ27aNSKJPfYfdYd2dJotE68CfXb5IzwUrzhhR4w9m4reM/FPjLRJbS9+ ggI73nqM2ag52W6dBcCJdhI3qkdQI1chywnJttPB++ 1LQ0dLgconJJqWs7gldjbOJDfXg7YW74318OgM9ts0lyfJuusPp7Y0vid1Afa8KY2q1m1AV9T03L7fcM /Fx15pz1x6W+Dl/8Nl7abKL+I9U1/ YK8NiiNiar9EQGY4j9EdsdCV1iz8ksx9ot8MHae7ozfwzQgaG8gbJUIOtgmu7XlE4z0ukutm20a1kE70 YxKMZfAH2T6daqw7B6zpHXnQT75B50AU85E2ZCmQDbg69zHKppf /YiFlOjq6Fd+Hx7+ q1OIiZ820c3qoK1kmqCeBKp3vMdg6SgczVnhPTNQsREDkKuzExtt8ADBpRwl0XFAz6mvmxPwD3r/ rmJ6T19HRFaVF+dny53peB62B/ 8XI1n0YsqllNTJ3hlItcUXDgw1Odtlq6iqBrNDgZGGJyL597v13745NDKtk8MFlh5DpYCZ4Yq2joLHrz axMl2dT59soTc8TnoCelhv0sZnVsM6wMqSuVdi9zqv2lndZdWfMjOhng +9PaQI7ha2Du9/ b671qMuDMDWpa264fatmijCvB8wGSUiOoi6z78cy4pPuh4w6TTow55IGoP9U5kqL5YMvyjqedz9xGm8k Djbyyjurde2xYAxjRfbpE6z7CTvzvAMMmyh82rxZFbD0s1hV62bAK8WJrzcgspmauhhx1Tnl5K7b0evb s9fP9Eeb /gOHyEMi0qZ6f5E9oEoFjgPDj8jLuvALPymEQe813VKaRI0iyk9B4IE34R+LdIu7m+V3yalNoPtnC+ nwp9s8vgEBIFondstWCY+qnobNY7XDWUDJGXZz+4wXDrtV0YdO0C/EDLwt3Rlyk+ Vowa1JbJt2yD07g9b3Ul5RXH82/UTxNGKjBHiU8wMYXCoRLULhSCaL/wz8J30+o+OyO6wAb1/NnqzW+ sDIB5PJ/LjWjdYw6fINm5Uq9XUxQOuAJO5+0RfGjUbXwn+ f0z5juTjcBa94Y9WmjfbsLL2B31g8D608K1KeARXgp+ TQnnUdENAxiHMJWPduITCTec9FpMEIKDQtjXMHtjMOr7rbXnzz2fdf6+ 5qAsq0pBKuWg3rJV7FIQ5ZIcuctjn1EnNshyvClVhllvEaV15i3ekoneoMvqOlQ0Gki0vcAsttipFCtH rEWUehfIRht5fAQijVExx +6tOB3vk1LF4GFxK2st3kJShwwzbYrmemgc0qeAi5V2aImjCUeBOQOszj0Iw3hmXHoWUvSO7gnUW+ 9ZnWA3kKbNLZhq8aoUNSI8a4mOM0AA6GAVMLkk0m+nbfa9z+C9pSpIle3L0fDGyu89jr51+Why+p+ S4eaAouJMVrlqFpHRnTqZbU3jSzg5oSDpo6ePSkf7K9diirPH+ PdPRAuofRtxRLZRBlMQVHAO1KXugza5XK1kVTIByHZxwbj7QIvT1PDgQO8mpo9GvUBtMcDVLCMcJIBsz h1t7b2gPDlfCCW +rs2uq/VX/PW10OXbeFf0zFV3Bco5+m1r+ H1HUwzZvH3c6kjE2ffBDGS7yzCiRjLdafqFsXBipWkxIEJSnlLHfEHRRfpR9d4uM/ MhVtuat6KBheW0jSoMGjJIU6okKwJ0+ sTTRWFnUEF1BzqoPOiE6E87wSiMXmpRCXyjIPDWWl1zY7P5Aj7b6yCln+ gEm11hbJVvqQQBY5wFoRf83E/2yENw3yifNa8N1yx91DmnnZigihmwoZmNlCz/ eVRXI5XuzMXKxYqZAPDQ2mlwI1NxPWXAHARrnWrOP4vFVjpmNiLfEGRY5ws9KBb5kgxx0zc/ qUIqdYboJRrRP7kVrbx2u054q5Smb4A8y49fQA8bmsD9QCZriW/vrbmGk2QC8jXdfv7dllJX+VQxA+ kuGNHgMcrO2EnoCYoixw8gXoANLgSSRlmsAAXcRvZV7GWWcGffWpEaIX175VLpQCZ1K6Pahw4djLrSWV Pj8wlmnzxrg92YvSbdDlsn5axEtTsWKMtzlio7l5mNFYq5LKjyK0I7myOxboeaYKKhnNjvUFv15eU6a6 69d /Ti77DClqURjFJoqY45y82U/ Y7zCe5qYhNrCLeBynaPrhKqzo2H4bSgjpI8IBkxeEDNgUETzPlW9uWF96ogiKOgpNXy4BQoy7qxwWKEe kyGw9riVnZKnsULOXkH4npJtVGhqFRUZnoLnCXxq6YMfMKxCN6bDAYmsDpKhzkFCwaujMFdJ4XTk zRzk+PFXlIm3xPHUw0TTC7loxbIa4kGvlKxLOU73p3cr1W2xGYdxauxim/ 9xEawy5EqL4SU5oZGTFAAvyiF9DhXsaXLUxTKROgpXAPl8pnc3oBYFaT31gmAl5gLzicQKPCIuZwvX20 CGUkjpLgMSDPBpGcN7bO9W2IkciSsL4U2rNiZNd1KBa48ytCBEHbh85eDWRHvuDluZQ0sVnyUtXUft90 C21wmZ8soSIi2pT5TFgUv11MuoaaNPrgMISvZeNP1YzYftyLM +6EhHHEc1wRWz/ry2Xfsz63mGk9elj+80no3647HEVFAl1k3i/ q3U0df8ILOFxtBJxsT5WRcRZncFVXe6hK1FilYAZd3OfchoS5ymopVb9EEIlxjrx0aKlSmVaZMVvi2QR hEMHuf1xa7f05UgTB6GCsRppYlI5BB9d /k/7lJqgC7HoNyBERCVkeOPQlEc7lObMBCUZOHMBp9drypoh/ csVKK7rQ5h3DAPRL0jqosvrbxMUHB12TRfG4FKHXlnpNvWjRasOpwCX2uqv7fb5t/ 78680s8AygDNR7Kcd6zdb8gd0S30Pd309wdztjT2kFMDeSw0m/ y2EfNjqr5qQClNpixXvYzHjVMD8awGYsCBwvjLCaPBq+ZYm5Wjjym17w/ tUmcTrcLHIKAf0YCfjNecjcUwiaZJvVmyCH0zAkAAIMYj4ZOd6uE1aIzf64TDcpwTHa6ABhL5osWGgdC UHmNdelCARHVpCzboaXXX24htJW7inz1c8XLhruEmiW6RIPp1CE7bENDbVzuiLJgNdwi1bIJkkewXosv 3MUxfEaV5tPz0fR2SRyY6ftTtPtNS9s1DDcud +f8tV3olcxA7IR6OH2tHjzAuQizJBETHjPT249d/tIotZZD3zN52+G/vfsh2a9e/extrqyvLOCHUb2/ nXrx5YNRTeKsO7WcQ4oSW9o/ 5IBNXKUpf80RS7t8duPrJb99Eodfkbcmbsu7zbLqcd0qordmarbH1M2v4m01VFkSKdksuoYHS34CLYN5 3gjwtrFt /kim5wydh29ooyqr9u+gZsPlfuLksua7D1BWDq7LXOk1lckrzJ4zyOCcy1w4Z/T24p8wkTJi4mdn+ d0cjsoK9YzmBhaW3Qt0xgiRC7k3kbRU4bRrrQPLlxAuNJaaJtTersxNwHAfBSf03uwprI6ye2Cm3rt3E XJHAXtRSXpBTV7owsQhFLmUtjcv3rmYks64QJjIj /eBvE0N/0Ys0iQViDqUfLsU6t3XLYIlyySzFi1uq4xQLIuybyXpO99e8prW/ r59hM6kqdJ9EzU3Re3D3oC+l9TqfcyBraUH6Kbuk4PFTSawOgetbzwBWR3yaC7ZLSL6esesl0q+ X6xba2Hj0o4PtpEpL5Nk3KbZg76zLmHwIht0A8rlpEf0hciZysbr6IVAQMdR19k3HeYjvXvBbrXoLHjs 6D8inx5wlgj7B4NbzCZh +iA7EXX1i3fGl4TxZudsffHx+ urfJduqOn8NLhj5KBehmR71T76oav2kxcc56d9hbow2vAjdpXYuWYZWWKEjQqtuHcQa9dmt2tnUZH98v K314F1b1wtwbfHfBOp8LdVx7y9 +OOMJp/o083gqSuvh8K0TRbsCy6D7lJZZqRNBYyHtgh+ H9n49H3l76b4wxZc36gk1skeXUOGWnhWpfYogpa2ScKSC2eZoDAbqyaNYxol9ngH8iyN6kv5e89G4MrS qwIWtD93lLXKh39Rhgu4WmfIeVIB0 +q+CKgdW0DdeiaPRbndo6oMamyilA973NhEqozQgVX/D/ trZoeQ9M9jEMet8FHYegPIUfUDC4u2RYyVEVAFStoGhUubIbGQn6/tIGL4EYB12KyfzCmKay/ f8P7D98ycUgwbejA2cIewD5dGYm34ABqGNOIyJx73Bq8oml27mVLc1pyK+brZkTjiP5e0Y2zf8v/ zkBPrESj5KkNxEN2jwHBHHBDm5aqYnMHk4SLLXlqWyBzhWJQEYvo5oHpaEnR0dH2c1zm1BTjORjs391k GWGZxKvPU2GUJ6dlTd56fmZhWHjssA80HaOVYOJn3F2 +KQXYnbcuH8O1U1UuXoi/AYVK7m8kSQGlkk5Rs8eqAE1Jmuhxus07D0MeDfUsCVknRQSKJ00XhL/ 9qD4t+PDL6s4E0E2ap8hYJLQ45Tk5zheugH5xRO9peQ5xiZBFz27/G5hibb7scETz7y9UpEB/ haqAXj1kKzy4qoVAad3sqmqeOQif3pee35C3AW3ziuSHHEKKop73So6Hxu35tYpk8ozqKUEmGcotPTY2 v3fQ /AIKPhD3JmCT9NhCYtc4psX8Cd3VgoNzObRgaovE5uxTfLaacmUXconkCzgJFfhYbXYPbRuifNoSqK+ LPh83Ww2Yv3bF/ tBYcQ3TRGw6ndvYAofcasOqcQUtxYZjitqcoH6AahLa81BRIHSH1jbpJ9BzCg0V5s7ugkErB8MuZtPTs Q4Cvn1XU +cYzoZZKfzRw2f3e5MyWuFIc57snEwzUqrinu8xQ07kVJ1vsroJ+FrMtb5taDgbTvL/h/V8nv2k2SX+v /7qb5JfBVa7GR60H8tZoAZE+MYCZ1Jn8oOtwpsipvnttNE6fRzQVGWwTUODNtNd/c2w4srXacg3+ 389Q1D6AtiqymDWKjiDg/cZrjXjfabSr9SQnjJDqM2y3htWorpYrWxwRfXilUz4jQ6si+ hauHutf3Q7W4i9e3/j82k74eW5TF00QYlnZlmy7h7htfqbNUDReDQzi5tjDq2oAmS3Uvi2M5uZxlz/ EPivwYRfeGfDvhG+ xpEApkovNUe5YLf5AtUfAtn352ddwPqaZCHdv2mxYUCtZmaTkHoArTLdp1p0ayD6SiabaM0bi3PlNeKs J1ay /gF39c1bi7JQ3kaaZUPj51OyGOCYGjVF8yOLOJJrgdcFG+vtB+D/ CLObUFebSnCh7vhtH1P9iFFdBI0ciqcHJUERpv6AwBo5tqLXhUhEQebvFFiHDzk2g3A7BWdvtiADrBVy cmrbqWo0lxZv3Q2CoHIFyodae7t7nUyDn70zoZYOVkKKGoeagefyXz42Cvsgt /XMgj47UjKs73x+K4rnIxO5E8rpqvx2RuZgiW9q6Xt/ 6VYtkrVCim2fj1FAum8Yk6EwAamrqyztIubUSxdOHL/ oE6AorD4J6JUpcMRrXdw413fQj83rgghj6mKNeob9Evq+8C2W5xOgpVKzjvbuvXuEu9nt+ xAAi7qq3rvgbm0kt5SmVjz9qyZp0t6mRgf+EItwnnqZbsbYsC2JTc6K2cgxSATXA0a/A/ QTWu2F2l9cyAaCP+Mxawlqa4M6T9bb/ZtLhsZWDT/W1YHOR6lu2tPbqdrd3o1lDarbXk+ YatPahQREIENvGPF9sNYabsImr2BMexT8JdnMV79KyMoD9SgS1liOqqXyGyrJvjyrmctBxXvan90vtju /KESHA+QoU26Giq/Ogepcs4BlNwCeD0zm1FWyjrgQKD9rK7vldljmafavAro6f3wa5i+YgrNa+ ZVyKx6Ez2FigIPUAd1O9z7I3vRKIuXAtjeFa4rlTcQ3DHw0k8XuJVgWcnOYk2FIG+jlcatq5Y+ B6vAlyS4aJuRLoyo/97hE4bVqAgjT3/ISJjVPdJ5pa8kXWOoNMn5/oE7rp3ECP6CQVowPfEJnj+ Sah8tk2urSG+0UmBZDo8dxhBhtZtg5b6UbYGQZyius56hsPCet91bM20pffF92wBbZ9v4oG/ 8xyFyAcQu9kos5eTCsCubXjQJaxzjr4m4rbw/YvFO7bdJh+ LyxyH8ilftZc0yZxFZajCr8tne2uR993Zjg1k+0+ pNL6VaM87uKthRgm6QkuZDeZ0Kvoa5YjxQnqPHp3wfhBVB1iCrvHGV4j2M9ZP6lzAWzrB/ zN8P3PwkmuoLX//PAliu8l79qwe9H0zInnDt4Rw69bbF9oCdB/p0nspSrDbsXximcUbJ+ NtZzyjlKAj5bwb8Vj8VoWs5MhA7j91gvMuczQy52rF2xKBRN3p9Yfb40BDJgvtLlHV5s1+ nlkCh09wkBkdcvEG2UtzDS8WUcQHcUd05BYbnP0/ YCxPcrxYHTII9XiBgIy9QFBbgqRfpG2blUa0EYOKoMoqztZr/ yTMmNmLOwvWXBd2BlNrBt84HcnRqtRbjj0BbuF4zUifbrdZQ3ywPnUkukSmnIhBP35za3ZV4Cz5xUE7g /ED4c/Z/RKq28poeynGUv5sFX+mW/wAIFF5H5Z0z+ndV4l0lKUsa3zlDMuryjAdLPCUQKfmw0/ as8Nwkc8VrQkpXb0uH3JTbQB485WGFDhnPsshveA9y5tQOxc7I0KlxvCUlwDDcz1vzm9Up+Y8i/ exL1ZN3NKh/utbmvbnRPDvjbxNomlWCBraG+ q3g2l7L51Z3I8wXqkYrmkg94hr1Gz3I3oel81vxfU0bdFl3+dYF6WSvga77Yg/ VWKtK9epxc0ydgUDc5l6l+ XlGeLnoLdbETbJNQb6fe3u8lg8vj2Xtxy2wYRWAhd1ay0roUFhtUzYAhAjVl5W8ctefigRee20goofcP F1PAM8To +KQyzvLSWBOVWUEKBXT1mbNvOVCSis1iZHiadMkPi1wu9rL8FQTtX0T9O+JNRax0+ 07NrMn3la3himaApk7B37BACTGHjupxOebwFGUyhbnMAXuV5jzY7pC+zmIRxomr5h0T+F/Dmn3+ wKWtpIm1jb88judxhehU2Xx+lj06TZ9one0HCMic0NL9PEfC4KZcTi3H9b9zIVuZdgE4bQ55i26P9hp+ t9bK+/ S7GBYgGJBxdQbe6MEhZzBzYJp6u48Gb5ql5SkeQoQvSYuBu5Pv5IQWNSMSENfffew7gIkDUjyKEL/ a3hgpddP29FFBdoFDzbIIfh19TL9UBCEhULBDRvhQIh1W3GZrsBcfthIHYf9hdpum09cH9CByzJk4FCo 717 /wDD/wBX8z/H3uhb2p242xJhkPSJPsXL15yxmQ0HHqwDrSKsFYMvgdloppPSoyWQeHWsMQLOHXAjZqT+ lLANfJCvyX88QvOVWyLWFcQS3dn0/y1Hdtj14Cizdc5hb3AGmy/ j8u9m2B94mZ5r3uGlgKSqfe3M6KjbtBZXWfBY5J3SJnp2Q3tIRIkVaTNnKDALIcVFkhjwKXovDQV76xg FhIdmkOs3lk2bdvg463n4s2oyLvnzOtdbbcznsOLpz8KwoHEDBlM7zx64N716 /r+kYzutHsnq+/rv92YJnOk+siJkSkzXP87LzAGCUJERC+ 0TJGJ97muUWniHJGljj9oV8951Zzn7T2STjOAmBaXPF94Orn8KOWMWqAkmKkewvrggIBWZ1AVHoordAQ O5th534Ps90xg +ZR98fknm9Z6R1f/ PQ13swfAEy0yHTv3qrMwmR5uiDClDqVBgAydlIzXYORdzVBD5rpBC2lEOSN0ID6LTmRGhx8z6VAneNEM OiW5CHeUMgpCqCyTpvHbXJYp +6qVhUpYdb356401E+fR72FAR/ f0CmgTftTRp0zBjbjjZiz1jz492KzMmvSINCzvDQiU1I9Vn8RloE6KivJJJ2CMPOkABkMNTYeNprjiny CfVEXpknvl2TGboXe9yFjlgWmHeLgTZp5yfpedy /my2R7VsU+i440emh+ r2e62XfexRAeYXkfmIQLXOMmAyRYnDdKjUz2lmKJziJJqjwPwmuLC44PbYbNv0UKHiJZdobglfE9o7vc vwSrHHANunrwuOHFRW1HtGGDkBcqC4xQt +Dbd2eKg/iAvxcPLQQPEqwyInEhXx86OC1CCK0jRkBMZd6hl/ SAJ0U5YeGIdxQee72Cm7UfHqjsEVyCi0Ai+ 1elOpX6dZBnQV9ozU88NKcyb5BS1dohVM4j93i397A4dOfP+b6Ct/wLq/Tz+ 3y1hYXdca5MI8vESXCMHpKJjcEvpReg88eXNp03wEQikimvOeimrmTDzNP8fEjwN5EEGPyTlUCxN1XS3 zaxTuFvNidfpOvbFmwfYJukIJwECr9RAPWdoli0n1bRf11rSQz /TYy0zjQon9+ bvUueyK4xITxn7YcV3cI5ooFKx3J45O8WbLfoUCT2bobvY1YQaPwMdMnokAE8ex57qIAHWXP37mZTLI8 mVWtoZGwbKTUfrWHP8ODIc +8xknykkt3sVtRUvkMkLUCROavp6OF+lrLXXuCd/1/qyIfEXiFLfzNr/ bAM3KvEaxBFZfDkveYLMMFAYoN6v5lhshUdSMb8x/NhsgnGcfNwDnCjPHer+ vL11Yh8rX9OZpbbH1bPu5NObACEIHUADUrDec7MNgnsW/vU3z2sbU3C6zvJwtKNCIilv5fOE+ KTwn46J0CfKHOiBx/ffR7ab+ateu2eTpQ+ wbzCRWP0lZZeIcCaZaFNKZDqBamoq41ISg3Im8Fs52vIsdOTDPJeOKvTi4qNEQEMyXFWuBfE70q+ 8TnlucKNp+9naQM+i6HgxXu+CN1JlSaalqTBW4iTlxrhBmpVQr/XT0/Qz4TcJV+ aKjw5eY5a7BQdWBi7JmD5M66HnFJOfBqNpFFlbEOzqCKmljbef/ MxBEyMFOAkJPxWvqLc84hGYPkCvGvzaxvNxZIwLv8y0cRQEjIcMpZR2oawIBzOEmnwauE5lBkjp2ZZEd VR9ndqar3a54qVUK6 /K/lc6Jdte9+/ffRp+t392xn/ZS+OAFDdsE+h+ QD2mEJBEFDRBQTm3IOyMYKdgOTQBNZBB74CDQ5ICm3YNB0Im5xWsX3bNqETMZDr1QOKK2jzqARgrm7tD ZDVJipKfHGHnFThKZ22RLiI9AR +374TB92249SJOjnm+lo4vwmpmjpb2GxeAUjEIdbol0sJYxmrRvmjcQ4/ 4VUELScqIjQMIU1S8Y3ayxDfE5xNOQGsw4nJKNwQOiFG37K2dFMDWOigd3IKf5mIGE5OPqASBBU4805B K2BJs35EZONhS1lxKrxjz84akzbktzEHlW70w46Gq /Xie0UHmkv7KEBDtet4jcdsO4OZrackavLsU0rr+ h5XmbTF0zHqJhKIvjkA8AeiHMMP4qC3ObGdSoHHK3OaDhM50gviPqQFVZtswEjAVK3fL6Jg2m0bl086u gg0eK2sXTz1Ua6QPUasppVlRtrA2qFBvNjIJxGGTQRKgSKsRdU6DrEI8lpATg33ysw0iYZzqzML +1e6cwPHos9140Q1E93+ KngkWR7G2k9TPknHFFcenGCwtc6VzDzxhVseBLYRvrZKD2y9qe0hx0OttCpP3h0c4Jh2Y62BJjmFp2V9 +4ZDWr1SbAtAdENMhVWrj7toBtbsI+ i0g2gx8r4c7eh1Fo9H6r9RyiC1exLBwjzOhJzUoGIcIYX7rvlf4htwe9iSj4Kz/ TOAIhN5xK3CXUPQuqnKbmBrNAAPdQebrPZFmLLen2mXL9YcqSM9XX4GHgrXrs0zOqZhCqFbfoWiNj6Vz 2Td9FkRw0m +cBz4RtaIcs4b/xn/YE+V8iTrop2c9aw2b+ MOZzv5fnUrryLLubZr7lOMdvmT1zy4Wb96vf2la06iQvrG4aMg5CzI/ D2lLuhkRjApnmsHteVvPxJ5IEqOjNecIq52/znrQMoh0vtnW6YvAMrTQXINIhDG/ bIdJQWRhbFKEQWW8rpSveihB0U0CLWbRIsk9V+BA6R7px+ Qp6XuDiXiyB6tBhtTRMhuFTS9rxWrVMU09q4xSLiLezfZN1JRYYo3dqUUTcvCnQzuNE2JzgARtT9elaw BcxJB6UHl7iiwrk1vuogrhbB6M5ujkMeZygiP2085remBg4 /YK5bU69zZP9kb9S/ NDf2uFf3wgS4jXNwpZu5WgMLyb8vkmFC3KqUjVxMKpaCbVeTf4vlzYwPhF9INlCVK/ Whnknabc4bGbVGsT8okifUP8w/xPZg7fafAAvGj9udRx9gJZ0ucKAUWnbmGW8IV9maf9wS+s/7R37H/ jn4ay3+kpG5C7oZGHaOzLs20F/BunPf+FDx6hR9cu+O4POWAG/AzuCT5Xb/kDKh3vbR08L65uEhX25+ McW8TzZ4KT3ZrJjp1raThuf1iMb40btrJ2vjFUoi6yuctZdnao9q2sgvHotZASKUPy/j6+ MDORZiG2jc0S+ SRBeolw2zpDZh2jOOsR2m7nbxb3RuQeeZpAVSNeDCvd29CpF8szCeNhChfpHnb9wf2s7FyVkd+Y+ o8QE7nzzK2nExEg3KtLMpncSqphhcdlekDdo+ 33il1bVDocB8AEPpaa3riPCGyaTPmOEyIJg1XbjKr1ewaooPz5vO2KD5kYGM9mmRrHBp32dJRw8m0Ex8 AivIaN0I /T6pvFkZMDeqD0FpkL5WEIAEYzK9zvgL0rt9wkvxwxj4Zyy5itpSEvNS6yagj69H41/DGJ9LG8bl8z+ xtzOrVgFvxQgkY4o9QdBlsPjmKFQRH4dvcR7c+UFOeJsTr79JnMLfgUaXAX3WAC2qE6ICLaw9k6G/ sEphTJDh3PS4vwTIgox1YlgaLx52aTn0+ T8eEgYP9HsPvpGT423TaP03Dn2q1Q2ezYJheqwVav3k8j9liokiIwJB2yR1Jt1lPc/ iyfQGL9XrfSJNOXCCf5qcx3PhX1l+ dEwq8RIXRzGcT4uG32t9det8kzw9f3frfXrnJOprAnHOMpLRnegb8xXFK//UXAtm4GcmHPQzS68k/ RcznaSjrA7HS0inlIjtQFv6IwqNGkfmNRFYkSTxKfel8cf+bdZIIHTm8p2l7jnT+p/ 0kCvJs6L9Jq9pnt/ FZMCrylighZku9IdMqmhyogzqsGPh6kslqUmjepPiROhYX8vFLUGZmFWYIWq4cv5b7N30p/ nzm9651J3xpXnQf2R3dWysSMQAryC+LcUbVdWVLImNAkH9sytSlp49jGh3LsxhiaLium2P/ d5jBXkQpHoczhWsrFv2Ty7ngJtW60KVb6i1ukv5nyWqSxXTay6RK/ ThwpY1mh58KtOcx2sxl5MfGVsiFhhWbeoscLgRNYdlGNbcVwHH4zpx7yjdUhfc8MA9gpmX9j5ZhmgQQw 12JgCA82vhz3xbm7fSxeqY7Xb5WyF05CaVICKAgtsj9s5p5ilP3cZbma +N/aR1ky6UeaWun3maTg7rh5XNPFXXPvfMPUfQcRQOvTTRzPrzbK44kX7ZN2e/wp6xr1h8VDtk25ep3G /8kSnyZ2fPHPiaKYyPtzDhRlSpl35vGyz4pGrDWi4ZUrh/ sFzqfALexYchVHf7dbPqAR6P7VOJ4DKYGB8VXZjkEICrneo6wr2jmLtV0hbA/ 1Vi8m6NgKRyBnwsyaCmwBLiv6bCiz8zSBExRzD9S/8Yt2oHPcvjVDPtyX5mWn+ t7SyD7HwVwiAbj7VOd5Ec3Y8K3Tb/ TYxgKnQGNf1g3pIf0LIyVULyMs2M26QWxMuRCZb1xm0Q4Me3Mn3v4yivvg3ysYYDB8wMfmjZuZzYzenN seQylQsTKwH0 + VbezC2DHjPp01POIjA5k3OEDzeabE9QGmQlNtqlUUyQyFEaifE6J24lhFC1XIT0q51TafR1kQLFuOcQX 6gCrBJhovh3KTeefPqlCi89OkoXiN3 +1l6mOoxNN8pNu4oG8KSTYcLe9gulr6MNzwUzBX8D+yAnfWnBtjNKEpEPQH9C+MS+ NUh7tpwcmBitpMWa/ Z0NArRi39LrTyOCeyJkq5s9iPUyTge53I8jIrpXQspxdSdsh4f2mVIUnNn8ZqAP3pCdxw73376x7qd1U BdDu8vmf5okohO6c6wIa4z4Mbfn8e8a4bM89XBtF9FBcHthHRfLfEk3MUXsVv8ehzvq045l7kx2b64k5 kAKm52Vz88k6 +opz2O56lGrTP6JP2sg6yC/g9Q1vw/ 0Gt4fEgfjGjvEpr0kieIMNWAoeDuoNqS8p4Svh3whQq5pLHEvUjupsfFjXMcIh/ND4b4B+ URQjIbugbbhHAW7enLcC938ioQBc1O2z5X6FTyIYxiiTV/RSeSgRL1dm9lzVVX4r13cdZUk7+ m4vGthEF2k2l/PQ0ebNXgQmwXsG1dx7s5gx8kfClzZztcpj6agHeYw3vc3tIqpZaqTsYb0qkrPI/ VlVmNpfnmj8HErc5AkX/ ls1S7YDWlSQj9w6IOIZfkMlnaERmtpLb2hg5n8Wmi7h0NLToQfg0js8Fq5RbqtsXPgFY9a77zj5sbKOO Gc134a1ALX9gUkS48SSTJQ1Vulolo2q4S /Fcnw1+ XNEfXkQ1msLSFQHi19ooPxRf90Jul2Fnz986sCenyJNgsVipPFTUyNVPSKd3Y3fui51M7D8Jlg+ Bnf1P3zwbnVGyLlLX0bCE5khWxS2s56ngrqomwYow8uLLUSuGD3D8CDpV/ GQoj4Be92HkriPcznAmnS8lybwp5MY2lwW2i4raPLeFrwRPzYCK4/ jZZPV5fVjrukr3oOps9xmtVGpf3Z4+ SQYcK1EDi7WoYpQ6o9Z1iUvmLR3Qj6ccycy8Xz9vfL7M3Z0znarY7Z9sHvpdMs103XVXL9Kh73jxDQwt SyjLyPBOEOckyDe1vFEGVLX11kovs1MZMwpwVE9h7Y6dfpDJCxRFeraCYJWOyQReTP1I9n2lGRLYBWIc qW +E4Wz5PHEjk290DI+1J7pqemDgWYG6L2ix+e547pd0IRBPYdewMD1G+ MZsLEeFrhnhRSTE0jHuVCAQfsdT2K5fElTUdTXWFJF7S7FTYcgFdZVSfngZh3Vuzsp1iNh7bhR1+ VCx6DWD54mpOYj76cvvwgqyebz30G5/JGozLMOxGmOrW6j5oeDSEi9LM0aykMl/ f0Yf31zZD9j6rkeLznm4d1fI12JuT8oiO7tMkb9QP6IM+gVJ3vW1t+ GkGdocmQw0uyoXbSPanxI2yH87KrtQpxy187mwgOhY+ZE+HVBoUsihR5WzwlrO5JpJoBqfYG6wr+I/i/ kDTcxzi237WTuYqaWrDx5swwcOHVxq0mmbVzzDpwglawDXKIn/ 9ERQiykjtmHt351OrHG9d2n4tbCcbBbFeTkXefg9+ w23Lp7FozKs0iB5KryN70b6jgZRix1474r5I9aMqJBDUh/ LjKi7qzNlX9fzhFjOyTeEJual8zgdPDwiPVUEgqnevyD+ XOTF6EGvpN6WKlixm94bs3a4Mst8ikAwpYtkiokX/ SLwUypsxGGf6JsPTUx26v8hwQWygtAQXe0R3uwLGwpKZ+9RpxLGRPtuPZE9ewZT1n7U+ uq2IULs0nxPQzUxqtyxAn0yfiSygHjqy93HcT9WEExbxFVi4TDer7TeSBmk65XuELK97UI+Z+ 3oozDE15YYny2LghVxZll22BkuWHhS/UzoDqyYIpU1pvQi5e0naZJAYR1Z43K/lt26qGO/ qf0e7bG0LdSulaleVR0FH7Wm/nL5m1vxgEh1Tk5nzT6jGey3pqDXw1UwkYE80p6r1TWCpn/ qu4iR6uR0PvJA6ou00+GE9MwI1c4Ex0dgr+IVA8tqStvu6k7xKiR+331x6X6es8Oht+Id/bW/juz8A+H /zllD4u2IlCv3rqB6M6Y6aa0pOzveM582vT3Pw5+60/wDnUudRM+ tam0p4jwTN2TbW3j6FEBzv9Cdk7UwJBUFTlOfQyKzbFkfYGWOuLNWMlOYNCZTX9Iqm1iqtSgf0JhwRvp WxfGplOAZ0hpHBRYtDBA3 +L6McNG3WZ0J5y8lotwNl28N3gYqpizkmXYPv7ptZ0+ PpeDp36fme77x64Z8FLOld8i3tWiZtStXb7QLDggdg9SqMP7pLdvlNdnW5JB9qyMG5T58N9koFQ57nhJ RdurBakks6nwGdymKad3yfU +1ILqOjgYm3/Alme73jK3io0VpBnbtflXs4QOtQhLnPTV6ZZKqTE1a6YKHIL4l3AslxfQ6My6A+ I4O6e2wmk89I8V9yWsbfHx0UbBKUtYWZuPRQnJm3usjp5wn+8CCsUeK5ei/ zz3Z60qIka0R7oWV0AlxyGjrO060x0uJ2hVvbKntWQzQe+ ySTtiD1o8qaUlR50ZCzID2izMITYrC3Q3zp6vtxagrSCCqkvt1ogUKJETjNhC8CyZRpErxkkLUEYoecg sysdsV0jsXX02KXZveBp7Mv6HLoImf70Kso5fnyWq8ZxA90Q3ulIUUWCSpwQEizMv96OMbiSodxwNWef p6dfOMVivjqVbDqgW7fKtJcTrpG3chob5enkOhqXqammJtyCbjZe3vWx7Gu FsEVXjtEYyIisqBd7+ TIHarklxWeOD40BwDgKZckQDhXYKxhY8AQBXKXFldCgbJmpQzHHSkCsKI1lfp1M0DTD4HdVDzP5dh9rM pbTsc +OonVMhsIjgdROQiZjnVcna9c57G+ uytGYxcDhTNxDqx52d4OVItEdxkMpR9MbmLGsHTCk9BCyHcQXijFkkIts7hIqLanINVluKWGeo8CoJh/ zgWTvpZZAsFEMstInMAGEoh9E3It9DnIyKovaQYNFIG9ALOHEv207gS309D7EqsBsGnBvth9Bq9zHo1Q 1D1C9X1e3QFezqkM5pq69vA1WisBkYqKviF8toP7rJXQ6 +dH46mqyGbS/AlSCbWajAh2Q1VvjA8ntNFuJ5opnyG7i++u71Wh5+ Gz7z31ZUx1dikwkqaTEyTk53h0b79zmci3CmAvzw9lOwpNFUZqDjii0dHiQq1Mjub1LeDrDPZz911nHe ZiR5j7y61foj79NMMBynkGoxWOf5M +HK+P9dd2io6D6asvBbaXhBjdeWg/glAf5Nv01uL/T8BNMdWOuvj9b+JBBNLquwl1Q/ PtITKqW9otC1ipkwv1Y/wvdipbh4pw9hewxw9spUK0j60WvCv87Sp7gN/TLa/1XDVaiFrYcgJzB4yij/ c7v0q54K/BrwunDbV8kLyR+zdmeU8ggve6iaCpbmwcz+WjdOTqhMWv3dYVSnzVpJ1mMNvZduf/0WWe/ kO2XjXZt02LTfOJqbqVdhOCE9hpPU9wRth74vb89t2+ jAJn10nOuYkxNiCVONo7soya1oqqZ8G6FRW857+lvItImgEvjJxOl5shQHeFwSD1vVo4+ yTIj9ZfEXVPongts3URP6WXRLZCr5sKRi8seAhxBwJqwtKw2J3GkrZaCt1l0z6C9b90256H7XzC/ AtOBOvTg4u29ezjp49T7+vt5lkRBmVlbWKmir/xKpmwGXV8jx4cfE454Q+FNbHg+ RgSHkvGQ98cFc1vAe72ssCGyvamAtKxlZ65+3DuCIqVk3J+xhF8IRQs48C8f1ArPo1NpwWSbT/ CBpUip2LtY0Q5AttIhN6nkTlghE8okKTjBwDcW96Kq4rTHjledY5bgO1Ao3zNBzDzW3o4T8dhdKTilBY Fsq19NscMjkdFJhFqoMuR0B9rUz22t6vP1OdEHA9j5A82bMjD6 +f/DQua0DRJiTflOdr9tliq04z6v/QvC+zkpjePk1dCgBlidRMyJ93U8lpL6wyn55JLsoj6De87fp+ 4c6tF1PhyDqcNStA1vjT90AglO+VFhvnzE52djVt3k3q1y9B16CwpRpr7J/ mu95ggQhSHF8a6GrgAhm7vYbeTC0gQnJwjlZ4PpNdmFiijZza+x/QheMLdssxsm85FEaQTQ4uDQEz+ hc541b+hmmuzYjY7s3cpCzh4ESbvatcFVimJ1bE9toOUZqwi0+0nqNp4+1h42pd2y+ xYfj1wqnMLbkT3imjzfYefpOgN6sWju9e8eJbvvnof4XTEh2l6S1vQ4ahiP+ bMU0Ddnu6hNW4uh38q199uB0RkspXIeXvnt3XUMYGcEEMTkQVyrT1GVwcHaScQ7t08pNyEysEMhM+ CvFc+lcOt6v4E0yXQ320WMTjQeohX8bvSgS086ssk1JyAXyY94BcFZ5TuR5ixmUIACCyAC+ PhxbNHgku9SFh4kGOJJnWha3hRMkgFV0BpOzZshBykRLjgS+4k83FLRHZIGL6/ XxooxN2o1dLOb1on5PlFZr7KBhD/qt0JbTCaw6PsB6PYWlR939jwA6Qe8le5IQ9G3hjX9aO2hcaBwx+ WN4gHAa5s/ TafEm0lbskAnjvm3nkunW2I5X6mochO7E4fABv4j4mplzr8x66zPik2TipOQeNc8twKGlfMTu0uec6zi ChCDmx5hVIglka +gvhjQcCI6N6pvKvp2ftkKFt7SvwhOxyUDra9SEgui1tcldt0+Y+Q/yN0TvJ1D3JokLRGVBPJdFRXM/ wX9ITS8/ Cuzyiw6fXoNlFVt2PzP1k9f0ZToDP8ZVNGlb9kBquIBFJOG2YB0rNjJNsbveioFNFnEwpH3T4LRh5FRf SAyeH4SwADUNBRku1rSBh5fq3WWy2WfTVha0S60 +i760PacohFD7innnQ+MHdfr0KokOdZTGV7BY191tNgBykrFGvspqXR/ VDu42Ioe1OIiWvhLf3YkLGrlVTaTrrWqRDKBPRfPhpuMBDJschWXwZtqrUCqVdtnpArgbqfJR8DmkZse 0KPBjV97aQxyQrU +QOs4VBb3p1hOdzOyzbRYJhcwhq09Pr3/wCZvQnGrFyvFNPutrfd/ xIFQy9pM8DvVWFx18rT2WNSPXKajFkOcFzj2AFbVg5wXwdR+ T1l9FkGXHwApYfMwORnA9CHQbPBEwNoZM6+jyyN7eQj6UxraFg4tZ7T+ EN6gqkpqZmDAtEDXRpkgNCv7Sy0geTjbYf24v8gQx+0yUZKIHCJ8oVrNJNLQ9WgVZwE/ TNrgULjl1Y8s6OEsecj0xqcJasN0nZPNlL0m6i9cu5uDjyciPC3rumQMMt6Yb8KzGtwG3vntPNOp4dbY T8JIrCx2FLo +8x7vkHTJi6R4jxuqAEWwZrntNCYfoFKBnZSsRMZvE+8UyT88T6NlRDvoadtPdaE4+ 1wFvUF6RHNGLxeaBThi8UZXB83UsGLJrdXNkr4nd9juJSWPTPzNRWAAXF5qMHUOXVby7j186u6PYl23n mmrvtYK +ZvDYDB3CZT3B2jjTah/BhbgsOF7Ptf7Vd88T8IG/ CjJqiWdteFwdhs9zLdueISJjKLpC8rUBwVvxSrOZkTXKq802QZSmShKPkG1waBXJs+ SGmn2E0aboJgXncIuYLefmxM2UpVa78wuvgrsL80z4mTTFuN3MU7EgufipIc0ohEDjUKp8X7HyWE7nOV 5JzjW388ZRbrPQxAp1PPdMb /AHVolqm+ 45I1dcrsmu6mWlPa2ayR4h4lSw4xg34uibouMemzyEejuuOEivah8NfROWBTHUszlNg3aQIIXPMaGMzm zTUbe2NnjoHPmEgr25HAULVmZQ2TXZhdSZrGjXACU0sZV6dScIZrhW1JKB8TPjQ5vjxXoF0XTdWFslxV xPgi6LI /ESaIF3Vf9exrk5a0MTp8U8MyWpMKNyl2rmWWkYMESr6nOGZaQr97kSaOX1eB7+fZr5/ sueaIKQTZud9tCmV/ ugqn8dJtgsekcncn7ajvsyVJsKYegUrN4UVDTUEKDXozKEnGnnIjZRwHI1WGfLiZdv3lV+zwW+ ry44SdfQDGIIPyuDtS5pGNth7WEIZMhWQn5k0BnkKZUYXOwob9gNPfaD6NeXPT7rLtExUtJuOqZfa2vX uNJCrWWUW4G39jxOHwkhXGZJKT5FL8WwLSQjhYgobjKigMybJXVSlmITlSdZoJMgw8Bi1vkvjyk +/ ykaf6blavYOLvixIw335b7451Hw28o59l8TecCeJ8nfmvlz3nLVDZDXtXrhclBDuMPyuTWuDbqGmMHav 7LIqoL +wepli9uoQ29b7qtf5yrgnkfJzqqIECjMvrXG1eANPqCiN4qig7P02kBlHRtBxk+ kawPBg2ch3Ds6kVfkhTFamrsRYIJqDh7Cppx11r8iPyHyCD26ly9spOqa6TT0LZ++ q6XGoDgP6eJloEOHX5xWR/OuhZ0arr6Jvf30wuaU/ z8QE4farEW8KFLTb7bttNy7clQ7h93HgRX6W4Edz2hfAp2rO2yaF3v6hpHo2Wl+6532zMdvqm2oTQ/ yHn4J8W30HPibFsnGEeqFUg2Aod6ekCY12CXf+ G1t2oBp9Q1j4xFzJo33AtKxUFjT0pUhKUhX2Gnu69sBAPukilV3aplAH/ eBe8hdzDZz23inc8FBuV7CZbGX4vE0blWXIsz3QsZSpzMWFYVvW6gXVbzR3Zw2NaSpyv0NUCqZqmSY4r nx0eg55ZbJeVaM9gk083LJvjVm0kvvViBnCo8B4LW6qXNttTGLt7AhTs2p55fvggrRJjllAu7V3tH2uc DHl8ZatLekfIjhsz5Wp4hpf0493j3GeAXLdfledyVEs1r8v4gaTNK6mrKDYBJOcffwEV WPjyVMl2qtfM6/hhjoGFHWIm7B+F0XDpJ4mmM9irnnPxoEULCE1m0h/ JPGLDIqBkhIZkXrgsd0qjz77mDW4vOzp+K/LnyWBXSj42+ 1oqEWOv6TKoEg7YUXLYov4l7Ec4XjflLdMVDaGDTrnswmaSZ3B1nqE0GeG13YV0eG7q0UPTCpPVxEfGN dOowVBgOtjIwOKBh07AljSM9uJkw59xzgbM394aHsq38o7ehwvIqhjs8da3cJ4an174Wihnp9nf56qWd zVv +LaY5p0GDg1m/lomQfiUIfw3fMAura58nmz693NIfhQZMDcE1NwYXEOd2u+I0nw+u9Q0/ gNJkalazRQnFGhPdbfGHcNwK5Xvtz1v+m/kOj4R0CQpEKvkN48iOXRP/ AAqRvc9iyoaSb1ogVPzRDzp1n8s+ilhsfLPJX6epLCKya+WUEYVQzncwd/MMY+Xfi/ 6T4QS5u2geQa9a1npYzhyId1PrykafkgQfcbfC1aVxqDPFQB4mrUZ+ RtA3loyw03AaYY9ekS0v0T756HtSYdc7MeLa8DuLKIIIYyho2mNougPi4YV3ys4LfUjdorPlEnLbVeKn bG9edohrm723zd /mzbbFWuXBHJCi7w2n/Pk4xJZ4BNovDNlVNaGXrkmWjiWeaf8/C3W4/ R8dP1fio7JDAb3uJ16PBe61u3nYd7IsLu2+ 2vAZMfRzNwApw7qYaM8VKDoyatMvjDVnrwhxmlQW2t17oGMlomitZvMAQ6cFkrHboyg2UDO3c7XabLUU oSOCh8s1V5AWftUAVhmm6gobfqzD52t8v36W5Qd519jMFvXMbOp8yeoHYZxURjGYezxYcTxiz4ccCcsv D6zJUZa3og /hg2whWnBGJWKzXFGyxQLxKrvf5ZeWD6Gdczi5n61r+H/GXtjDAHWmusTd5lAjc0Jvoea+ uHLdtvsamKv5x3OcBMprfVp8o+gj+hlJCRnE1nI5lJRbkr6UmQ/KJ3V718T00fYk/h/ RAJU2SPdgGRsLOlx+7Wf9hPBygGancWze9WoYY9lt7Rv8O5J0cbnjECO2ekMy/ 1J2qoJtGhd0sl6etmocpl+5mgTT6aao3m1CSLNxv3V6hAngAxaedx3QFv6peSUI/ wIgr9godkJkctLuu80g3K8gGlAJGVnzP4fJLaq3kEn2tNA50cU204zXjR+QzSn43Bi0G3a8hnMn6WjG/ X5cj7066laeOmOs9DeULalJrBhQscMuGjXU3fjuuyEu8G+ tUNU5RzAsF5XBq9accWsoASDDkw9moziL3Rjxle9P/T88m3aJPFdiKeP/ kmYnW5NbpEwmLwAKGIi1ETcITPWbUxePBFAzTPQ9t7sb2YYEQ+FutaTps/cbdTUn9i3Ivixw3zGuywui /aKhA63xHDVVftBjn9UhUgeVzE6gLjJULmMkySf+ ErZaaa4UzmcC9s5sMjWbyCUzLaCDNUVHzLXUhfdYI5fL1KBJvOHKLsPfzkfrOKfe+l6TFrl/ yJXAp3I231WchUjcyhksFlSF9ze/m+bLNBIVlnBKLLLG/ 6paMqsBueGtOQQd9tNp8negIH6eS1MdeOK4W1aa0yJSiorYiVlkRjOaFpyqSqGrQizpOCnY0S4qrHfn6 cJw7buk2Lcly4Bny7WvvtxwiMz86Vm6Lv898Jy7YEvtvNs1 /nL8kjTGH6PB192ooCahBcxlaLiDuu7kF4X/GT4z+ GuOmtgA4NaZW6r7TRLlBWl9MOARIwYqJ9teGClbAhfPhu0BrCj9XZZTJSUaXPC/ HAvS6spq0EOTWuNmG3qEIK9e4AcZVoVWEHYljQxWHH0u6dAR6odLJpNGzgdrgiar9L8CtM0UjLJm+ 2fwZIfYcdwyMgVPMZdsKoe4Pe7sEqN+cZljabAsh3WlZSPICOp8XqRNxPdE5OCxTuaj2zGu8sf11ozEP /H+M77dh2niaJ0PtULpsAkmDHgBEdaJolu5X0FZXa1Pne2I9QCq3iwota2mFh9G6UbsYy9x6kt/ wK6Z8X73sQ3yGV5zFkI8L6k7S313IQPbNIh28h4rvWZhx9/Q/ UCr93Q3LzSZz2nhK1mm8B44QLaICeogVhHzKjgV8sJxMALs9peeloTILCNAROR4nu42qCg0X0J39rf5O 4j4acsczr30ofxKB8Rtosh9UwglNqTUHDaMcpvITRQEsiG076e2J6qaU +vXkGjM+c4lP146nEcu4guGtmEXe1uS7uF/ aeJZHS22rROZatgZLgIW7ARLcUe71CVNetNr370N5edPVSh538qlo7yXtYgrYk/ JGabGN5u7l8W5sCs6MpD4ch1cbatbLWV2ej0N2fjDxcSaM2PfeklUhaA478xICJOaXwl8SfBBLFRduNc 4jAV3l6FbGu98oP86p3WwBkZEqpjm + DDoLYhN3c9TsMkMapw0Nhvphbkx78ccew2G7oEZLd3aaFurSGB9E2XxLZBOJ9obfcsj0mFbPVvxqIAZ2 rAoCVvU4EVjz68cVjMalz8YqgnBmuUxbEouSbUowhUJWXCBtDSPeauHUCKep8gb2 /rHS/FxtUz1yE4r+hZJWo1V/ Cc0acXcGhNTW4lg3TfCABNPXuwqkB8z7rUyDnLwPPF2EoEeDFz1MIYef94frAia8Mdx71slTm5FGbMIo S4jBeDXJVoPxhlEtCZVqPabzFo1rfB48ey5RiwhgCubRd5ct8L3i +lCRfZ9v9l1z83U5uqhdH2KTMKZ+u2D3sbJfn7VLdPX8XXhX9LeqqasRDN5+8GQ3ni/ SPYjvdnEa5BGCSA9R95H4hr5RcxP5xzgTaP0TR2dt6z9q3hMN0g2p7XSIfJCB+OU0prbKVJ/ WieUYb6fexLnG+d7j7U8yKcKHYbuEJPy52+wn4uZHXFsmXTTnh6jzuYsjAp/ M5HWl2AUvga0Eb5M0nsdD6OhyDoTjPWwwZjmoN9Fg9Pkdvj6ni4LDYoUkan4QlTGGqjYMTYZQrgjRXRw E1mai28Y0gKds1JH8ORZBx61AtLxfK + Ox7vm0cvXAhfhuRiVl3z395i6viJDrlKRBXQN8KT62tasAmCraXxMmhGifVGT8n4KC17ViL9vH7Tlmh4 xOLj5mvb0kbh04U59pTx3qvOHup0k +G3hn4g+NO5YbNeAQqZsjgO9ZVQDw2gw3h6Gd1e/nKRp2Lj3z8P3YsWiq+ tocsd6gjaUIPIGZa2en9dZngnLgayURCCj6SPMA2SHbBpa69UwX9OwyQbkH2fiyzkhtq54paa9NrynHl ydy4micOBENnySrip /cLoBsE5URKDfnK6J0NVweYAa8Z8S+L+jza1p/5PDAr3AznzfJ/ vCwjAQBZtyPVpSzh5WIKmtPMpLTCh3tGsh1bj5GKgcj0kdn2obe42efc00rrUCx7kyDy9txd7jxdaa1/ mohcmdkYiMHoInZ2qMgHjyVVrRVvMkM0N0pszlacEwCPuVGgPCau5Y6M3dax9tJAt2lFdQdpT3N4H+ H7fR3h2W0iO9l/ RxttL6b5X55upREMo9d36UWKQQjxIdj49AcHrMEHKnE3LmykI19kI1gl3ugdRm5Jyq9cuJG2QNWD28uP bK9w2kZvaecaWO4cAHtJp +UjYhVJoKsBSJHuEovlNFU1v0WVTLwm7995YdvvknlRbzyUgH2Ezhalch09/O/y/ PFpIoYhtSjkqBCSgIcvkCohbPxLFWIhcAYhstd8KdkufeQh83DNBYWhJmH218LOuaLs5el11afbO3p04 RgZQmXVsOJCP3cqWZo00cKND2g7 /Hzxl0lb3GB/K/Tpc/jT21Rtkbbpge63H1TlbzDBsU3+ 7gMnrUHVC2FII7LrMJT4wGeFLfxFnDuuZoQgbcHnSNVUFkZRjQEg9CtNhTGfyVtsd+ WNTfNuF9ODHvBLfQpWpFMNMqgJc6KA8i9hi9ok0rxw3b0yhto6Xhn5Tx06Dn1WQ334M+ 6ChKNzp2DTdRb6A5AjHW254SvjlKioT4So6S53raHgate59A1JZxIM9oWePmOKB5TTmvWB9N4i7ULGns VzkOhzncSGPI /EaZK8HYN0Ps09wwVy1+ffv/ oAOi504x7200szneBGlSBCBGLb5OmEUSJVD0QPhefQ6Hs7eH3lA1Li5G3khzoWNGnK09hxtYZL8BkDwU 24wMnByTyNvQjmocnlckjdnsACc /UOefdnYWXzvwzSMDnchn3fnz9mlTJsnoxh8Md8/Ly6PW+ mM8CckH3AwvqUPQAVmLTBDcZeZwqwzClh6y/ i2wKuaII0AKuBCCDGpzsKV4YTBndoSSZALabQWzr7INBn0VzzmOJGYr/ NZPj5twIqUZSTlhymzo6Qg8D0ri0vV6zxnDhDy8aknys2PdLUofWejyZuEqDMmeRlh/ tFKJID0y7cQ17OA78MBEcZUXuUu92MKKQ4+UAjJVOHnlEXSNHH7XSVkA6hompN3hhlRCXv1Noc68b/5/ K+3FFuA40/X9gzHLjtdPr6dQu0CP0K4WJwNXXdyi6plLsAVmf9YQYriFLYFLKr3KoDIoBJ+ MdyaaMsTz4I/1pL7vUUGsnuVGvNAutcDnlLnYHXtY305gVWIkAq4v9GR98hem8k/ BQptEJOgYvjpbvUdjWX3Wz2P6vTT5IsRiFgm6pTRMLJ3OiaBamGxoaNybYSlLDIwDWyJJjLS5zYkTGYh Axh8CIPSJYUBQ4nZTcO2VE8k3FzgInLV3CtFDavgIPqBJpZxETNpgcP2Z64cNwxB2 + I6g7AZh4SQKqvGRZ8F4DkhM9xlpHGZESWD6cqkWZJeTit1LlQdJq3kYlIlT2YG69y4X00qNwbXbfuy8b 4lWULggYGe +4ZGOWIwfTPk+n52CCWaaJuGzaPhhZ0QQIGLOI0ZVZROgOuUdp7YR/ 5p11c4cQuvnzVunsSqMmdPAmMRTAQEA8PC0B7ZcWgUlTcBrcZKbky9jm0AXx+ aMzmlAhMZK79ErtZmkOuRKeM2upUXq0kS4EGO6puiOV8ivykg4xJfQtOcxVTguXW7LHHoWv2dbzCoW6s nw8XsYTl3k /33/DJYS3ua8ixacT3em/KbUvn9dF0vN3OLoCNK4VuZ8ddK91aZA9X/ 3KYUyw9oVvDBHQsFBTjQrIvbal39jHBziHyjrq/ GIWdHUGnfs80aTGFMyzM4cVLbgdw3dWcFLUeNkyjtbgNFGJVN3fQCBsEFsb+ykbhi57fo/ p49LzHGTqI8pt7+V9Nb9+ juzuNdAZDztHJ30VF3I0hIeFjI2dqNvP8Ncq0o90YcwdtNMyQgCAePCgl332LcXTi7us6JCO9jYxe68n m7JQnGkgZcrRiUsD87jihGZzEYGPXKge0RXMLJfC7rsjPMpGs1Fz6LtdKg /j+WeYv1iou/W/TorXfa/nOU1Q9fEvAfcwz0rJAKNDu+ tiKzETPPFnTnKpcQ8wFoOGdZMAJmFmWyRRRgkBTQpM64sD6jh2KEiWs4BnA2BC6bvPDRLiIEukDs+ QTgY5J+EYirtF5DDoc1gKx29tH2fX5rJ55f5oJU+jB9ttcnsc2vjkjh2jCBivgeeagpbml8P/ GxL9d2Zr0aSnosreXEDM7TJYDLhUWI5BZy6JYlagDFEfMkAVEPjUuxYknWU3RAlSsLnnsQ3D68wnIMSk sLwC3AWO +2ycyhueqjnFfO075yTpicSF+xyF47Ej9+gR97b38Xu0P9IS0bHl3IGeeJQQNvOmV73BzCays4+ 5RdApDemFxLoAd3PA+ pSNRxoJ731CqNB9CghEdbDKHpABAIMEAKtcaRT6qcgfxfKDuDkWlYCMTuuA1kMuBTdCbKaeRbzLbsB6k HfagNTxvvB7BzFhhjtA8gwhbro /CgRBgLcy3BZns50i5D+V+17dm/iQhn73RuG7bhBaymDOR7mb5iJoWbK4FgqQYAqH+ hnfLOTXZ0JmYVAZH11/aXK0Tvadh/xK+ EIzAKhXboXxsbhjYRVSzFENa1HY9RatNnEkkDENvBD2kJWJVwDw84do77s8t3vDyJDekc5zV9vC6uWVX CsbiDNUAum4eVEQ10jpb2droYkR92 + MBdH1RqBDYAeygRjc3We3oyoGWnq3Or7o1HMApK23ZgzIHaKDuvKXn1l38zkl5uzu7d9Ktf3WJktTtge /ie701+Xp+ lR8z809QE4xDiZDLLkRtRzoySAebcUZTRysoRkMTMdf5JKPYAXQA5dtGbOwzxp1oRBAc1QR6mm5S5b29 I7k9 +o9KYOTByMCartLg8z7/Vs4JEeuDZ9u3GHHjc7j2gx+ fH1XppgZw4huh4yXfQnrs9AB0DNmO25cXo3GFwL+ 1FntjKYHh7gjjWZKzVzUz6iLkyCSQxs9KXgFZAUaFhxQIz86PjBsJDo1eBarWDnTYoXkLosKeHIXooaF B0OLbaDG7kWMLc1zekqAFPCmtUZwa5X2m8gS3jPEj64 +QDafBxvg7gf5vVVQfdZIyyOQ7n97G3wNt3a+ JkMkp55iUjVD6bGsoxdXEhbNhgubRkAGsIjrfvSbJiGSXTH+fXxX/Ys+Fl/ dzxpKuf9oRdo75caVIdPrsaZnt5aeFrvUiqtQxDP7KWUg4EOwjnoiNe1TvjrHikAPuocDrBEwk0yt4hr LQXfRZmfDMB7NA4 /zWwwDIEKw3BuWxm1IjXog4ohRizXkpqpLU+R8PjgE/ pKcYboTGQRCSCnw6nrDVOKciih0X3qguzY8RdYSd5Oee0ylcumgWNDp5C2HM5uc9dl61oYNM1Etsq4gb qgf5YP8BHW1Enbhsm0WM /PIPifpUDIuTAvbpGdyJES48AicAo2sIweCoKe4qh2ervjmgS4o9qLYqegrI8wbTqgw69zV0K3xq+ 86C98dQ4ltGXxfqcGI6W76bzcczrHR+dwFLrauUZuk4HOnmLhMXkZhy4L1TdeW4NLhepj0DS8/ tsCXh3GtouyIYX6cC6q1PHPJZwQ+W62Rysiiu72hwXAChRoUvfOhxS7CfW+O3FXo4nVbpGX/a9R/ xPSjYuJIm4roNooJTknG26RKulyuepK1FdB2focxIBnXzx1fj7tc5DzqQ/ IBIO0jQFRHpTLfhHXYcojBTWTc3piFYqXvFZCz52c66IkaoJC/Ol+ 7P8NneIQ22AOoB8NTj8ObekG0QGRbNnTZ8b7fKCGhNzZxfuiUdrGJtom1UF3h7R2B8xp/ LaTSmCGgWUK4zduyc2ZQUW3AmUV197dYzQQmWvdFODBB9naAf4UXKkzl+ 1Bvr6np5pq32h1mJ09OjVelYFZaJ+3cZbZc0TEo2mfOD3m4hqRpWQ24Jjz1W/EPxU8H/ 6Qog8P0xg2uKz/ q5P4Gaoywgapf4tQTujRVmGVtOfblvCMxh0donK4wbU48twByrSNfHWSqYz3xmUxIm5kFyLL7f1Eimrc ErTkflq14tt33ZsFyURYCQQ9x1XYdeeFlLz55luPiDPlYUDFIr0gzJQ /QMMzsaPVo2O1zpmSsXq9p3jbuHmA8hxvJ/ zgv4WY7SjhCzhR3ztC3bMfmA6rZ2uIbmdMw6awl551W9f1boz/ n2VeNqcfo8Iiupu6Bnlc1dOEf2lsqjwxopP5YcPCN/ v0gySi0rmKglIjXidEbOjiYj8Mp4lxkoXjNYxyOnYL3hEVp1FrBiOWlx99p9xf7Y3drhVRVcK65Tbg27 tscRYzKRHm4K9yqdJEGVx3d6DBBjsettaI3F4tQwu3QFxF5QBxSp +9yRlje4hevYhONlOM7khFg/oQu799VyIe+VUMXg+nUIs2VGubTVa8tvMjJICk3x2JB5Bp4R28Xp/ TPltHsnTYUj8z2ep12UcMmoOphekaBa0rXDe6Onx1nyP3ZDM/ zYi8C61JuKYv0t8TSj84ZdBKskVBfAVvg/ sHzLYlbS5dpjSBuZTvbFJePhJ63eaKKLEuoDtEI7c78hfYc9n0tqY1lSNlwSEQ7sfS1YokxUUDt8zMsL 26ClLr9kf2H6MQGrL0fZ1xBTp23yaYCktfNNmJ6DbjjnXiJeHYyyCmHXcGZU4SHO6X /eaK26gHj2Dw+jV7tao/Eq1wjXh9RYklrIgJOE1n9VIsseX/ V9MfeD94eaF537KrKtI2hP1gFu7bqeG1HFOwrh2GSIxwx080jf3KFJ9nuo1oUIPPdgvBXh9mLzh8RTrV BDrULvf99MMwPCuyup56aO5a3B1pux2Bjd1i2bqtWgDVRubo1EEvHdDKVaqkRmcdfodXF5h3waM8OISe 6cmsZyPDU0ljRZUG6RmC5bKPI7 +r9MiWHoFMSN2LnAf2pDkzf4ZlDWiV6DOSlmxQZVhhZ3hmq7NRDcJOyQg8dtt87ki46m78/ QfimolqhKJbAQXv0LWd0dfHNHjV99o58/ jnuncXdr4eykY0TQ7lOyNxOeK46v0rMKjdmy4ZuqWZ5mJc61sNRc0SIhMCfR+ F0agFNqjmxJmW1bo565q6tP2oubdW4c89YMgzjF52HHrHTYYycriaPQkp54+Xw/Jr/ pfz4E4t82n6QBZ6l5P7ay9EsD4VOkp8b0ibZHB14VrvWnMU0hf8sAgRXhFpSsbpJxuFKHK31kczufG8t h5hOFYsYQE1dvdhkiDH0EdoQPaqdTxuKQN3zzHdgie4Tt8E58QP49oKzvx6 +O9uIdbIGumT1GlXN96Q0n1StE2ed9AogtDq+28jjycvbWKQwg3NffqXKB1hkAHuQaDtVI9vA4W9x+ qfs7UOYyx58mZgRfAEMu91+ DWGV5FZnjBCzjxUc8cBnXwTLrmtdMXl7cDRMFViXjhXZH2iW0I5HalrnYZU2klp5A0kB5pukEZWJJLkK 9bKEqyzJC7jBLEUpiHnQmMvNdB9Y1 +iofD3h/YRGFovLk72euaTW+a9DdvNYbtVXqW66B0gPS2ENTyZUFUaExfsXAQ6Vwn0CrO/ drktrR8M3vbx3000nwNyXTPAlrx8b8ZXbDxiBmiWX2Xv62q7UdrPc9r40ATrRYOeGB4aXWFew4LLY2bL ECvttZnnPlp2ffjJ90um3LloyoFRWqEFw1EzBbnBiOa1nTEKeqAUPAKFDpg0qmDEFxMoVbgaIcRRgsa1 sL4HeKKcjyR5yeW /WoTrmoKHmzDlyVM6gqOOXqjW5Ztmcqd7uaO7D6ny69InNiH1Z/ vxDmg8tYsOxPJeMQOxzaW0DpfDIK4hN37JTgCbbFzRvqCikAxTvhRFvDwwZizETcCMK17fsA5/BK+ h0ugpOOMA8sgOv2d7eGSbYD6voZInk85lz4nuyq6ra4d5PzMHyorR2BbfWljjJ/ ScGFGWJJjnaomYCpIjhrF7KSmglxc9W3UQtLiBnYUOXHwbfvYhOWvKHC7VyQl/ PGyOBlBIBRnJDm0B5Dz5Nzsg4fqf3wPS9ApvOkhJqsuA93MsY69tLQzGZu42RRY5KZZGMYjydmAFQ0jG 6a2Ue8k67VsycxM8Gmb6hnq8dIJTTfWvSw8z2U +4asBqcuB2bsCt81pQNFoBlk5dRGvOEMHjzszjzXrtspmch5uuTqRhUzbah0vomubKgvJZ059jcw8+ AdxJ9z1L79YQIF2uKFVFxkENw0qNErZMedYL7oPNbKC8aFenubhyFi4Sif1Euh+ ja269r3ZpbLC02UGF9xRMh+jS8sxuagFqetT3NI4S8MHvlSG+2PozdG6rVCTsQAJIzh7TNCY/BXhO5u/ BLnsJWoJAyUe4hgpm4pu26x1Zffj0b9YQ9B8bmRgkzpvWfq5JZG3GPSb3jKvY/ KwEH5bQL5gcsxaqvuNAu8b0hbgvi+ KOaclSJTP5ok9DYnxU5aPIKX3IBcRKDipCd4eGoNjwoSaf0RIkRr1lznEjNXQHrUuoeG7rxk8K7amfc8 RWbFR852D45K71S +HVASc1j4xA9R3UYWT/F+hGHQvhV1q5jpq84ak0R75pCk2Ywv2nsI8s8kZEcl8vri2XzMKe9piy/ZWet +DqO2DTHIRrwxr++Hl1b+ RIRjwCfxQfjRIev2u57k9mymtrdOA7zQESXi7ROtNfbJ0A9F3iHWkYqlZ3OZZgse1JumNbqPstHG+ 7wQqU4v2LemWgg3F1xnJWPjAnNoJFMUdFtmKpnxXySvaButFp4ek341QR6XjcHmiqhIqe43i3ugmaLeC j6TohB7HCYLFKjuV7TARneDpD4mKAcbbJQ0LevlJtPTW1JrlSj0kpb5FVq +NE7Xyhg4cd2XBXZUDEnWR145Ybznauq9fBnPT70tdsgl1Tgb8t/ 6u7w7QOa8fAtzWLYtfx1TpMtr6gdENd7DCwphf7onq48aQqB52oHFsFg05QPot5c4FdEEtXLeamnbsLm j8mis1bq5cBKHaxNyuu2yeftHHYNVH3C80LfeN5xRfaR2nktCPHMddYbjayCqaQPPtZSQSEZxJp5VKsg 3Ek4rEpSGWW4lOrl +j1Sl5Md3nrOseZfxvIv8xmVqJr1lSJ0cidfLGtApN+j94o8ip5d9Rygb7h22CRvyZzkN7+ Bz5hZLsGQtu9zKcq7s490tslk1NppUt1rvdvolx2mpwiMjl4n6B7ac2CX5C5qf3OnrpULKtZpLetRWaE WiOmvLFBeA5HEXptsu3HR6bg1WsTbEs9 /I8jzOhc3A2eqyCt3IF6FUo3UPOv8jXwIFVnaJnzbHxgCjvjRqz5kV2noB7/ tAP3mwpCRHXfzVk8XuGT7BFYPTZM6V+qfpM26m+kQ3V/ JbF41I2WM6SAuVf3w5Y9tVVNdlU9ppPpH2fQf1pYWdxqlRZ8RWNL09ktL38RDFRxAaDgJ/JMw1uyvx5/ W8ZQoQ87gPZ17LTVXuhyFAstkhqx33i18XZ/pR2UyielvwyCZzTCd+ IfXsGVqA1K2RtU4ilQOnPFLBb5Q1oy3xRxmY6xE24V8C0yili9BHNojHkgO2SzE1P+ YvnL1znPiQ8SnMj8jVkG9srqX8eaOHk793fyLJvM0l5GUuqPVtS26MiJRl6wz7/kSFH1+PSo2/s+FNS/ sSv0Y0/9lj4y/GDw/oJWeQiVT1scrVRij6aoQ8aXwV/hLxHf/UXbU5FNmnEtluhfl4jY4uy/ HTsfvzZX0Re68XuXJY/dlz1gb24IBE237AhHigp/BX4LeB/IyVzaK4IuHZLv+ AdY3R7FON1jh3umfyLcWJf4swZeTF6f2c4gshAklHIHHy1zF0ZisLSFxXrK5Sca6oEElKibawBYyvboj huQJPkKS5eoeVav8jdApiDs4si9U3DZf7WjAvSddDKZdOgOr4AfwqEVaExhHftN9gNXdR +LK7bAAcc7C8MuX9s/DfV/ZKk2xoeA1G4XbN8CjyjKjMjfJWqk+qmurnUsUtnlzx9godPb9fWj5n6cz/ 1KkGEqRjeu6x1edd1rJl7trM0W3W43td5C23ip0yoyPLTnKERj1igzrzsSOM00IS7mmzGY5bSucAMlz3 q37J3wbo4YvMuI17fgSBET3wSm592p8I6Ex7342s1C86 +uiQv0k5HfQBhH4cigN7oIazJ5B0y31dEwzgp4CHu93/L5hyOq37l/t3Z4Or6np2+ dT16q0aO7pXN4Y6S20j32g7ycbyanSgS8M6nAtskOENowSgm00L4GPGyV/ stVFFPacHtJeHVzE5wEbQt692vz0Zx2y3Vs0jn+ 3dKX6riMKUAbqvYzVrIApSHSChYFo0eo7pnkSk2epJPFtavJ5c3B0A5Q+ O18uZKOxcSsNXMxw3zrpEpedbUslo0p9fhglZttrUPe4LhG/jdh5G1ZYN8TzZTUFU+DvgTVtQ+ D8dyxTOmIINJfjA2P7gnYI+g09A5g8m5srpUcUD3xvi85vcw3fVa7EzckdJvZYtTzQGGkJMlAx9H+ PmLlavD6TM+KTrvh/VPEjJqmsW/3g1vrpKmPyWEv0qgA6Y6sSvP85NzAC9Mo3RgTBDI6R9y0i9M+L7PS / UonpbpQwzWu9sKnvNlg1Lvov0LGXhybwqE16qLfw4vuIQjtECKofMfOqzABMdeu2Ikvy9Xv5yTbtmfwp mFcttBL4A2Hbkn1d7o8MLOWyZIgF6vaTZAqXcIa75kNNRRI0Kua3lhRdUhckOdODnjoExAmJ7iqRoGL0 JcA5tbTTi / NZ8uGryQouejFYnd77p1gpWkp9HDJusd67eHiN6MyXHbwOOvyqxHC7u0AkM1KXdGuOufxV842UtSiaqp IFiETxfT66w +T2vmYFSsYxa1U+s447I2+eB23xe0O6yqEVJdV4paolmBU7Qw+ GPuy2fUgtJlUrKvdXQ0WlEZ9eT2PtPxLb95rKE4/kPXsGzHk2rwYoTqSez+1/N/ymv6kAzM97t0Tre+ 5bCdv2YYcCXaM2ML3cD8lzT2AC7t85bmlBO0X1YDitfFZq991A4Pld1H4jc+ XoIeu5izS24FFpmV0mF9mpE4LThgCfYSwE8XKxmcZ4q9p1OyYX15dmx2C2RIMZP8nT/ vOpbnrV7K4RU5wtOM20sw2gBjW16qIuCsXRkuiEA1YaNM0AFJTj66nWpjds9pIM4nhD6/ Txl01H8uSe255V2o5IIs7mwZHqB51R2dwLKuxfhpZ2bnWdZAB4fXGnFz7d/jd4Q3cl0ou2T+ FmkagUvfFUr+OsVzGhl7314zEPTDR3SA3LiaBdXp6Zr0cZCsNmumQdcdH+ yc42f3n6nuu8wTS94peKsickUxOitzBUgbWPcKrPDA/ p1QJF9fN0lX6r59AJeFsc5n4HaSQw5Z1Lu1u3rwidLi55v8e2Bblu2pDtZjtA5sPGFtpFS8oAO6fM8WK R10sIc5 /apIFbD5e01I6xZ1ylNG9tmi0rWT+ DcWrYDN95seebeXSV4r20qF6bdSgQFUGzEsQ9FOyvF1X6dwGtpoyFpBKGDUsGvrtfGbymCWEEHQ3U0H9 t6tOkS2dM04mrXOZN6p1Xsl3M905ZCKU0KWmyp6IBeVQaQ6d +/kqif4uYSY2h5438WDhX/ ChzCJ7pv4cuTaGX7XUKOSRpQ5jBFMLemTGnxhWniRfG3kfnbRAmqulrph5mRURqCtOQ9Rot1lg2nMLW4 6LOpjN3UZUCYiC1J6TmnYU7rbXRFHzbWNYARPTDqTcH866wOf5E69Ow9Rkm +u7v1+ FqsHU950JZhgtdFemQ0pbNtBTmtPDAEnlF6qiAR5Vy6FFh6tSRqCAS6q5zWUwTOcKPKT1ynv6wGQGBGh uWkVyPwrKxjN354ZqjvgX3sFuepDqVTaNO5S120SKWdUiiJ7tsfDfb3xwv4XXi1bs5lKIYgbdMu1W95L 4GASQd +gSjidudiIWxy2vRm9H9p5+wgQExQTG6qjgk/l/E20XGmAg/OLewt/PgtImLTMCSrR/ QqaipWwNDrC8DiEV4TJONYPsuNkk4t4W6cd5rwLXh/ tMvXNcGunuNZIUZEBQT0ORoI1xRRPERORw9Fq7Cs7NMHx8riPeMRHYMkjPCwwhrKsAedq56HFCtXtG4i KGMnJJAkdW +9/CVGeMmspStezurPfovO/n0+ 9nOLr8Mto6tXRiYM28M29ts161Otsx0e5cVfvXSFGST7aejITRHfLXo5mCXnviR6noC5i4uROFWEq5lK jR9TKgBvTRKA4DvlFiS0ulZbK8lhD8al1SB83ll718l9xyD8zKD +dxAhELrEVQGyxf50XAyhmXqfRSLTPixRi5Uz8jJ5gzYEUeJcLZgLdijTvhYSHDrpOXO16gjHfH/ Z2kgpCfRZojci9431/w+Oz0Z36InRe8M4cAwT7h09jvupdOmy2+ttHi+LRWtZBPcuo7pbF2um+ dPCbi6UnbwZ2UVEkuSxysn71gu71wlxHyFMJJpE4hSpJ2kqGcZYrdkvqAsJJ/ hUplxwG3cDtl1d6RGzy8X7gixKGMRc2HQAxayZfBXxr5GZlRBHHNhJikPS0DDQsA8xgPGV6DHXOhkctB + 0gKuWCl2hbBBcehZRiWb6ci0XG86ygnhsXfbaD8AURWiENmDEs8XVAMhz8xeuq5cCidxfftU5hbdAQQP Jb7uJQPQvUHUtRzY4 + THOwrWziTHr5mF0exsCH0hqI2HMrGzAEOp6MmYNLbFPRDcyQSgaZZ46e1YhDbzozjNO5KwOn7T3PjenE ObFmYVHGxLHRhaldC6pl5xB1l62QERypMWm8wf84Zfj0EyhP8KmnlNnFiY8cL6Y3 /lTc9LgPAjWPwf9UQnRk+l2muJhpNyIcriXdabkpp56+q2dmJ0BtqePpRNDGj9Eml+ 6z86heZd2e97kvr5H0XUG8eBHcOMJC+6j+ 0zQMTQfJ1wD194wjHAHMtMQxVJHD3DfCZiQchbkzMzhL2PDnqrVY36kN+ eKCBwZ0FFQgtcF72SjE4OaRRl6VCo7PtuQ9pkKjGcCl6A63DWyl9d/ d4DXykbw9qCeXc2i0YxR5ND9gagyAWU3Jd1GdZKggX4DKqLszQ6zWUMjYAOWqXjigidxbHi2kez9jJP4 hjh7p0X8 +lgEbiL5MQyKQNsNxDMvzby62ySJlEj4jFsU8H3VTfU2js/WhQQspOiv65SP2q81ZELGMsXoTcRTr8X5 +XDBCQ+ rB0ewSYNf1inH5d67M2eAzgrMbCeBTYkRlVhaUXRYPkgApGDkEnj2LfLnkJREzT6clrjFkXV78l7j7aV URpGkaQ +NLsgBc3YvrwWm7h/a+VE+eOif1E3H1nEgiM1+ pF8QC2JtpaebtuyOARvZLVKLzlgetDDhOhFGwLyqzh3b6z+nm3e/diM9Vfyg1TaPy6ElM8G3nNU+ 3w44P0dlvnN5fg7Wb5l0ntOk5HvgR1cuRkHc1o2livocVBophjyzlap2ZHiuOEUxLUs+ ctaqDG8dZEI46AYn0nVLknbDuzWNPCJjBuuXjbQ32GeXqQKlzcQ2rTynsy1oe/ rRGKQIQe8KsbmzxvG5C1bkj9qUZyjdhMj95hb40N1wyzgNXHPOkeB2C4ZouiiV73RAyz/ lHurhclYt769lto4qegTot98SGTUtCsKqenfGBwLRGsKSzLP3xQr1lda8biljTOhjOek8V1s58CU84OR 8fhPA7btqhSTwBr88RufRq5xjx6V9zcdWAeqWObuv1yxXqvUExHzrLwMv1tXiLUnfV /vZddl5hgMdUXphVt11YgP0IJc2e0r147x4sN9p/ 62uOC5TtVHZ3sh3kCywM7XmpWF4bavXvkDQ43ccmh4LPQq+z9OX7A1i2ZT5tUyVkGMDqxKC0nnZv+ vTTvxUHkwYh4nH0iJM5GspZe4d1kPn6IuRNSYsd4nmMdKJMatGNE3BQ4ZO4ZxBL0MksJHtMZjF0QwWIu Ktpts9xBYsyw01siWowXkn7ePK9INnMmLjIEIZee /hp+2JNswmm7b7YK5ame0jIJtfKXc0aAQele5xbS2H/ 2EnA24FSqEw6mqOSVJao4OfctgEHV0WCHrEulvbqp5FxhboclHQd91FgUpfJ+ Bffefed0otIhdzfPtPs4uCdlVKZ7RXCNRL5QZukGH9eVSOxHhUMXun5/ Bky7XV4056R8052S3pNQqG6xTlSwPDPG3hTEs5b3gPrVnFqZZvGSEQM3rlqri6Hwy9WB7pjz66l9hiVL 7Yfe7lxN2 /7XfHivNZMsQ2Cn1RTZ+ AsxxiL2ngYv16OZxrnRmi62JKdh66IID4Q3nG3qZ4R7PAuptFiJyHwOo43ny2Eyxt3YfejtE+ 7pIZ8BoxNt+Au9iShK3VMrxIKQ1dUJ+8D0zD8nUvpRuu3E4+ LDqjzMEiraF7SFNggAymcOY3YKuV7x7A7dNcBb+ mh8o5Re60X6s6ZKOAYvYHKOKRVeYkpuQEBRBd4nSZ5CPVoboB4ihrpxdt4g7jj0VD4izTsP4A7Xu6x5r aKdDNJNcT + ER2Dmn6uEKq9LOwv6QnXAhp7keT7g7P0Syr7H9Mad27yJij8D3gE7MXjjmCadJKzNQWQ2roRVmgw5Ps2 YzlKE6lx73GXkaoqOxQZH6m6wvQ1k /Ba4gqjh62Muud+ph7er6BgFpHrnfXXhf1ev5dfIx8akYW1aj/ bheI4BJZzjkc7mzTwbdd9vwaMuYoX0ozoOzmHoRWtgV6zDwxrBsQpkNagT4XCY3zS5wV9zeb3gdwoR0S 8URkv1CH5nhuYcQa1v0tCuQZrlp /QCU2OAJCWgBFF14bklpGeAW7Az4tL7AOZ1KLDqGIHpUCNW5ZboUvAuNNyqKANT9nYZYnO5ANW0v/ dxko2wsdPXzLqCDao/fiDtLMKnqF1GK6Kll6KVNpIHAzubM4KQmHMnbjUcUv24nfL+ 4bFx3onEYiKbQkuxX9itHRMV42slTL3WcJlWz1o1ilvZld8VLrN1FkDB+rs22vU+n/ uz6h8d5g22XHfDreq3JQfF91qWKuY316e6QowilgcT+fz5ymk0dHX1bgt5cWIRZ4zQ2uJ5zJ5W2P/ lC1TwNZOT/zUb1HgqU7ENvr3Rn/IRuPIKdkKLx7LfT9o2MJ6m4hisZchB4VucaTFhOjKXP5Y1jyH+GPw +xJ5m4xj0SuI0I79w941co9DV1sDWcwwEhSlQid+epngqGcKPrLtDdAOcLk3N+ IXwyilgKda81s8ohGJwz2zw87nFaiR3zcib1McNmkD6uMHeiZ9eY8ut1nflPuSEhN7N9KULiLAO4KNDm hp3QDTgLv0yUqkm7Js7TwR5g /B06+GhOKSLY8ocQnUiTab8u4slHTHKxleJxCrmhOcrpUTxe/pYuv+FNce80/ 7p5frROc6vrFi24rkXkvn04ombDQeRL5s0fH2rBIzP5b9k8xo1q1xPzQqnLPDTjIcDyHy01HqCZv/ Nu02TT9kgWg7zy6rpFchsYi1bQh2imljgnwadXJgZuLjc2xYYH2MUcDhySt9XkXY9/hVLu/0HUtIHh+ 7admDPhi31sZDlGxT6D9mreO8dVhUrzFWDA2byPAfLz6oxqE9iLFb1B0H/ xC3I5Eg6wkjp6ljMDS9Y6btYmUu7WelVfYv1qMcgOrb7fIQsM6CnNBJJv1m88by5LSR5I6EG84grewe7 zz9j06xf1bHtpkRkTIpISulqamN64CYjGxscxAw3okbaQ8g8sgfbf1wo4r /+Fhe55HGejt5u+EJjfekcbz8inCkSdIbbInhupCpc4x/uugHrdbFbmKotN5wYH/Xffs5l4j+ 5KR1b6Zg2QatHKyzIvkW+F1Oo7L7o5ngKOjYfjHWeS861bhUMlZVtUb4xHN/ x58O8q5t6a3rzliuzelf5I4txyEnbHjU+ 2gBmlobRxatCgwEFu0AXbdo9UmBjF5WFaD5MPTkNuVtgXXsYi1wAipm/ ga9S6G1V6K8QvIUyHE4mV9jU7oKbN3Icc8PwvIs4lRPLL1rfEJ/ OjHHahck0EhM0C4bK3gmdqpWb6fBki541UXfy9O7vxH1f8v/ seuaeo4pjMbX4RBcMXOEvanitvEE2MXWKE5jaWlUcNPJjSZ1rp5WtkQIWZDGpeqQmfvrmf52VnPzskrt mPyW4Ds /B+ rM5ysL4FsjkPPrAuOgA0F4RDaPdRqmg55NbX4YzQNtqEF6okwpTjV3CdkvrfEZ92lVuoXtNKfrP4pRS1 FM3eLHhSNnDrfL8hA6 /g7wlvkmR4kbt896nKMUnnrEMYjL3u5N1wPQDqrx8eb7ubaTtf9Mtv6XfS61e10CnEgM89zsYGUTq/ SanfpZAd84NKDc8W+ VDZqy0BlT7OPg23sIzk1Xu3yv0Zgmy8gCNphH7Q1dspTiUxsIz3ZNnxskX0mWVWC9/ Nh5jlT3VpAmamEjCoqHZL4bdkIaMIJmasBadhl8Di9zDjvmR9CUplgYOhFIpWXcioqbDU+ PZff77EgGIc4jpxwYnh2/8c3BV4sgVDC0U89I9MJ+ YJCTw4JIlcjsuyTXf8mae3vqEZ6WiT1naqJjxYf1ZmrNSPurm2yOXmKc8u3VgNkD2Q+ DiXZzcI9ktMb60nT97qrPruPdc334wNUUdMF10p8aT7nX/h8PW+ eEChVvsO5lWelaPASDnrSb9qctOmwp3m75/Oe3T2q5jLC6KqsvIdArcMun0r0Q9wbV1RXt19MY073b57 +Z75uH5tbZMVubAZqtRD+DtgufqJ1PmPx/jP2zd4VGuheohWlWxA7KJj2+ vb77XMINpKU55YP1Xm9ZrqJi6xn+PvBhgmC2jcyy0bmMK41VXCucLZj+ 7Y7I4VXgfu7XxM8vbfC1QUClANdRIIn0rYHlRoXqRMHy4XpJfAP6ceksXq2DUmAWbU3A3UcpgBPpCf/ ty9xjEXe+xYekcciY6h3eIkNvrDNTujFR02pbWC0AArnvw/b106HIMBRMXMBwZ20+ BccGp59f1IAAMA5R2dwbtEvQ1S90lGomuLdvnEz7QgygKLVsP65hcprn8fTivnQlShmpcZRQTcgP50I0 o7tY7vsbqFpW6e +mpbjYMa09+mz5NRs1x+ kjuC9p4X2O2VhypgcWxGZZ20nve9l3NdJxaPjZ1E6ei7OSgJZitSMC4CadhEEgzfRGvdv5yIoIv1sQ87 FV3M1CUXFFmsWmlHigM2jLuocwjn0ARKDt2gp96X4SGgfDpdNVwqnlytmyPBKa6axBoPQ8ouL6BKddCb nJbBzzipK +BJ6CWSmC0CnOvfYNuajezGy0Sk2g7I9FDROJYBtPoI440Lje4d6j/ WDUVeynTe4n2pexYk934gBC6SMFpws1wItn+jkVkOHiwtst5o/PdgpR7do/AOMgHOBwO4/ DIzxywquGA4+NMdYT2B2+ dQKW0WtiwDUCwhtYr4GE8JuNls1d2LJCA0ZdlUPsCeAimtzt69yMwljKX561ebEEGVrcf54xMtyr0RI0 K9 +nS/hdC32yu7tkdAGbneQRkDn0p8zHpl61MDRERJDIQZmX/ T1tzVuVieS3Uulm0OcYnUG9LJsSOkJHHMTEas8cqShd8YQZhdOgMn9nxmHXbEFmCjgoKbqAdnuztPw4z PfV /jMHfy94lQ9ndc1SHy4U1/Iq16QzPqAgCmdI0Bxs4V4TGfJPUleQQsmSMT+ UR5CW0AYVCPFlwrz3An0JKfT8FY2RzcwEyhinX8meQP1CPtCaaAsjdPIGV90P4ZFOrPR2hgBcBWTi3jb tk6adHbk /b313fxIx9xbf3cClWVO6LG75TDX22Yk18FRBUngrTfiGo3PVWKkMDD62ig2PxsAFGbDNzj/ poKm6cvzEuYKDGR7nzFvqq/TdRE03ybTZE8RsCS8mUvrpYYHXT1JT41JdRQ5Ns46+ny3/AOCFmlrot/ fCks0UG3ODED4d1T1psKkft83sJXYfGC5tJkPBTXDbsIlRYYVRsMCMi+ wCLO7EvN6PjMU98eDWO3vCrSHQukhsAqfuipcVGu9f217SUz0ouxwscB8IPIAyiM6cx+ ax14D5YRmqx8ibP2g0/ qIecMlTqdhSZ4kUR7yZPhUYgW6eRxSTsei7b3m3oBGd8lbERYhVwjKIHOdSHTdflm3EOUxM0s5aZZOui E97AAQa1t /GeSMZuaKQLWWsGKsN007kweCh9T+ oVjQBTsQJtgVR4LQTVKCsw3yg5YgnkJh70YDrA0C7kpnKkuM299QasU7oCQXfewjwB0fgSqrcg3t9iJ9 lMXQuzIKAy3qTLRRbjTTUE9oGVkxUYbYOheP3zcZaBPq8ZMIffpHjctzSGDNWfQWdbqqjdmNIHahee /pMq70j6g/dDUe9790bm2xl7I/Ae6yPTQnxLrzrbDjKw9+sIndTHIAd3KLAbMmXCed+ sjdMY9CMoz4SjlS5wkY7ZZeC5w+ GDeJqxnqrJNZPNiWezIWNhDtdh1YzSTlD7iuBz4A1LQTMFnIAKHN6PH6HA94bb++ynmZ9l5o+ xugce4Vt/L5LY4+ 6sGNYNB9EMfoiGvZhYgnK25E6FeZm6MdhMPYTtSFiPl9dfQ8XTMV0VXMZNlUUNYQn7LLE9EaHPkMiR3O 57ET0uYd0wNU0d +PSQ2sgc6PCLPlWYx6MPMyFT2Xdb8K4tb6v4ebo4oIlfw5f7C4750i65/pL9q3tj7xyaUuYY2QSJlZql /GNbshPoyMlyJD9eDGKBVSy+XW8j38vlBIGSOZE2sck8E1ydYg4Gnr8dJpSPP0VTC/ WOokBtAx8nIgHPevUjhLZIwkjDqNd/oFbGKLxL91mB/zga60vOsd9fmTuL/ 2671jRCvdZghN02Yz1YAAMn4FXsIUUdVs3WM1bGx2CSGLxscpchA2dLXJmZXHVKkrj583QHReOunQnR2 TJEMkH5HTZDUZ9pgC9HvD9ySz0LMa /OFEH1CFMuBuPUZCyhYhlJBfx9mLys74Jz8nqfwQgveD4V/0/ tlxzA1QTedSOCASPJJhZEw2KZUWVJSPU4A9g/bwh3C/ lfbAyE02u5KU9CJY0qKxa390cYeRaioXgXOCyybqaVsaODTfntuxSXiLrtfQMbPIACrfi6A3nn+EX+ U0d6Qdv7G8swovpKMa3ONXUQVAIrNKR/S1WRqtGjPkDxZCUtcmQGlV8db1323xqiU9RMCFF5f79+mi2/ M9s+DtjV5W2kpqRUXxfFgiEZQkIdCzY4y0vXDoTqHuQXBbBqVa0xSgsQsh/ YJkvCLEQhB475evx9uhG2WvPRwIgoOdnHkFLkhMDZmCyOJfWqzTsUEP3V7U/gv64l49A9h+ MK6wCfeZF5hPgLGnYDiRVCYgxPPzPZGogRZbFFWz/3yhgisEcmKaJGlQMW37tTNQqqF7WcRccg+ 3YJNKASHNV20sARWDhILAZ+aq8wDLanntTHTdsje9icGu5cL33809gOye5o5XD9X+BdG8O6/ 8F7OkPIiDpMgjrQqMGlmmoCJvza62u5jcmXlCAuAy/db+h/uUD0puzny6nryTSNzhNZsWo8CG+Y7ssD+ 9JKtct80SE1p3b/wDgnFbeKfjX+0v4s+ Q4erSHScsJmHPVGUaVfTp3Z45jxzOzIlzWHrvYNXYiPEAM3TMY3PJ/ cI1T2NU8KtWiTVo6RrfDHepPDQZ98njrKfxxEBjAuzm+/QI0JVUSbgg+uiuuqk+mr31+ B3fEU60xfPOIJL6C0Sivp0OFAKnKWImQDHt/Zq2qoeZ24Mwzuqj7UNg/HB9ycf/ J94r4OQHvSsaKCCsyv0/SdwNtCoBk7EXr8ERNAr2x4y+pj5OMPwKhasCDw18o50x+l7gTjfn04z3T+ ZSMk8/RIY1xqm917yuhZINBcR4L6xYF+zCjfNlLD5hP8Wjc8cp+/fznVqIbEoOmeb1WMxTGs+ R5AUeyz56RKlvM3I+4t0aiNl2XBQaAO11tS0wlObCnoCq7bq1QrT7O5Qx4+tZbsLUy6Ol5zcE3+ r3vaxhjv6numjRbLXhNMuao0HGjBxYiOIPtTWPQXYVNMzJyfT0OJ6cSRseN50941IxNPS+ LZCuxgVArQvB78LNRIO7IkSaBayVk/YClWKcGIHfXYki9INKcZNjMlJVPXVqT+9+ XKvK9JiuD2xQ0lhxioKm8inz3iaBdJJrUkDdXKYrI+PvnJSkKnoo7Prp46+x5ha4DZWDAAFsts+ e71ik156lS3S+RtwDMuyQprrBBwhqPcZjAI4TmuVqtCUNLihKU3Vi/mR47E/j74zfD/ CSL9Awscce3b5nSMBoYPYMprZt1PtnJpaTjcawUGHzVprqHULaP+lslAiSOh971k/ LQyaPACV3faaphl6Bsha0wR4hUcOWayf7reroU5Sy184YEUGUKsNrc4hUxHFTzcZySiUugF9JIdm2DYa GR8PiPX72AHxQ5ETaLRz99RMip0VjY2MFkJAi9v5FvmutUyAXxjYuzIxHZFbH0xqArecmpwK0holUYzN urHM /9ICWg6yQYgfR0k/xYYJs5ni2YyKtx4G/ h83SyxQdZ37lzC1P44nTVM5hzR9lAg7VV2SaShiLVcS83wmnY3/gcWLdUpdD0p/D6/ 2AB2m8FiW3PcVV3EWAEsA3rsFgVjU9ao55pB7xPvtY4ynDS0GoIkWK/pH+Mvh74Z+ UQfAnY2WdGjdQ8r0H5GhGXl5p2EsXwQPpjNhIBlT5dD3cpza3KMRuJMkN2ZaXkhIiLuG95Vxv36YX6FP 9 /wUQ/3ZzxGh1W8ve+KkG2be41+DuqvPNZ+DyHCl3ruONpDP11fhShHyqCKlvXmvkyg+ 8x0dI2IuyBIV5h33+h2XkZ/h87QmBXbROvUv6wVUUewgY54sot4Tq17n78D4zfaUy0jxh2Ylkc+H4cz/ O24wbu8JrQa3N9EoloQo0DmMyo8HmMVA3XudN69SqoDboydr/Vu9SuB75S4KaeP0ha+sreORmZPJ+ nO0wW0O0Ti9IF42pNtrQ7eTp7Kjee6x4f4EWbI05PhL05afq4ufiwNLRc3RcgCyUiMBlHr7b9eFxkcCk wWzbPht5mT9ckAwy1BcaJIjNtHwDHvDZO8FuefxIaDs7EmzRIYtlcMsc9esc +7vKOT0sx+JFUm2K5FDnP/4mszrZUSidV8DWoD4G6PhGXRJiV/KDRyjuJln4bWIxNDEt4sYVhwKut0u+ V/M/xRT58IGt/ yRslaSye6jqqIyMvMUhv9Qb9viiO1g0w3CTqwcqTmNSr7I6hNaxWYg9lgiQL9kAQT3XcSDndpPKcC0/ VjZMAFXfpejsR6bNICbo0uOMi73L53G3KspM0xMZWkI7bDdmUijkxJldnZjnYoj8EbvsREcoLryIW66e zaXmyyFJtIDiWLJlESguLWrnNsyUlwq979h6h99B9WTtMludHZUoKTD6oUZchDFwK0eQlc6rLQ4f3m SqkFPT6FE6fT4VGQ149tYRdfD1VV+ws9EOIIG8i6qJI9jq+to/8AD+e5+ PZ1Ans78RRJrQfrNCj9k39mbPqZprvXR53S0a4ld9aM1tz+HUrfzmeK+vM73yFHbiPIr4iwrxhlgoMl+ LYz7mxNoRfZfziN4Y60yn9QeeCX6sIE6dk8QmqItp1B3Gr5dZ6TtAgLZrzDmNweOoM3Jzd/ 9qVZjoXZel8DRPugYsmDzUFTAHAXplHjtuQQcn6ZQQbZqhsJnUAIIcORgVuliPqbPQJRMnCXFQl9o6mE nGKcZeiWll +XoeqiL803C60qmSGb94Io1xzpAy51xqT9Lq45kW70oaBwCkaapOq4rqeTpTPWWMCwhK1OoQg/ tBrD5zEQSDhGdyXrX8qaCWM6BsAtWKeQ2P/ SBJN8tmmbuvCHwGB8KgnbBnm8or952wbWViwEyt5XvTUfO7VGLq7hwJ/ IpveWuQNDE30wWRBVdBwm9CtrkOdpuljwKb17BejfIeWOvOfyUtvvdOLGYTASpkmLZGdoNC6o905gA23 ue9do189v8caCpv6rwmXFnr2prw +6ve3Tq+ zocDwoHGw8tr8mpJOf2uDhVw4QwMDPwbJGzbTyUtRiYtaSFp4tpZoHCbtO6DijIgy7rDH8uIQDWjkoOi s2UuDe661JQDZbo0btWOIju4GY9xScXsZrex6eRspjE5h / xavI4VYhqFQG8K6aaYBhqNAsSGpf6n4oqOVKizD8MxNbXcFwU25kSCu6thw8ATYba5gn6zGV8PhutjeW OBoqyGIVoyUKfzZ7y2jPTjBj5WmBTLeAQjbwOpOihkYJmLmOnfpf /JLe0eJzWt6tUv21t80gsvAhqY3Ty4xxkUqMRtoL52E31/ Hfa2KhrhUyXNsdc9UiFb7m5iyp7eZLeL3Oj+ tgTI0Aslain0qTIq62z3Bq2sJyLAT1dsESsJOsNRWGCeJJIDj24K8iQzH8R5UnGt1XvEntsmgweeWAAu /8bHFql4Qx86ppjaGmfuEbMNipq9qU0mmH4t02dwhT2iOb0Mh9yxQfxO8x/EU+ mEpqn9T2ndovCmTssrFCRpmBXgZMO3haqmPncBcLqAg2SnZF4h96ujNbe8Dcb7m1uz+ 8jpog4rKRtFNrodKuqVGttWNZfl4ia7pPUpGtP+ 1i28WvGnt5No0rFp6qQluVpVzyKA5zhvz2zX5TP734Mq1B4iXFHL1DhQGWYjpT1Zga034H9O56Qd2237 xuYis3BlrVnqWGnOlXirM9vAF0dVaxD8RCsdciPzJBXxla / MVuJptOWnhCUFvQGk2uQm9BiwQln1wet68zJQDaEYh90njtljWdAH2MlxiuMfkGSyKURoCK4sbuectni 02AH1WVJSMg /yZQ6h9fHTghgkzMLonIeM/PDvCKkOrgUHca44Hd5yi4b3UYhf3eAbfPqyFXs4+zcnq7/ wZVLVcyo5hdl43zTGBY2hBL2iV3fm9nx42p+1gU/ nGVaoE1TND8XMyBNbRqQY7Gb6GInJ4qMPzWwfwHBWrt+ A67Hk6jaRCmR1l4EQXUMXnKWPu0xEMLQGKxDZv0NTYvzC74xL4J1KqFQyYSn55RtD99ISdRVVNohe1fi Xr0CnF0s4XZAUumAagiZvToBDP5gcWP4pALasQCjZKLXaNug7ODlBDIgoCGsB5aG3UF8Vp /r21TgrLaAzNlDJGE5yAeX537Ma5pzZ38X20ihb1ccPJlLMmBIwnkTVvsUJDcBRTwDpKeHO0wQ+ DqpkYq1hgMLthUUjjNaBOzQsqXWdfVFcDeDKRX9mfGjZ/CFp+ 9m0msbcnVPaoQmk8PjKEIWT3DwZuxiXBIMRNMCDXb3XlB5g8F7kmELJ6e4U19hiducD2Zw4ZSpSC/ CJalOVnkSwTO7Ftw8AgWTCiOwm9o+i+6/lXwGwiYA6egP0kTcLZ5Q1k5q6vpin9i60+ Leo0JLcXFKBfORPdhhlxiwsz5JsnPA60jsA9fdJmepOrMdpiZSzcgrXr4kVpoqVyD6fZeFV2c5ZbatUL EM2p31P1JXR4wkIVfha9sZs2pictrY3LftA4QnT2wpDVxogDjifNRdi91ZP /IsNyXf56oBZHPv+7SaKcKvSnG9t2PSvxu59a8+ j1rNDW64rQn1g0AUkpRoWg0m776nywhKvmq6jd9VWKYfofOielzQ2oInsySdEReR8WWMm3Kj7rZf6dxG YMt1dykQL5 +uV3c0WxS72/h4dPTQbVG5yKvw3dH9h55Husv50NczA6VgVUSfLXMq9Mra+ 6R6pfC6pJn521TXehIesi6tVlgFFhHetVzle+jC8FoIW0zyElQpt/ 8MOALl1pLgfp2pbCTZmwJPFytoOmouE2h6pQtGqUFpFCI8d467npggsR8u1HtA296SrJ0B0jwPYY5s3n nY0WZ5KPiB2mYyoqJmU +3vIY65rhCMbiXgNZDTAw7mXUw8fGyVFz4QvYiTLQsoSR/ivS/Bdy1UzcwbkwO7/ n9SgYYoMNShyBE1xww8+ kJptmrtMW3c2hCkFmvYp1aqe4g78CD1taoxSeNqcCl0mRK5ufKC8N3ytEvWlI49hU0SGYXZGW8bom8UK iop +0Ts0+Z4w4h5DMi0bsd+/8A4x/XrsWa5w77+GalXHB2Tm89Oz/RpgiKhNXtmhK2ldph+ V6s1giHKQIym2LlA+I/kN4bJ6ud66cpzDw+VDPh3ZjdT5g1xJGKkTtnz7aa2z5ijEt5n+ 5b3oaM7OmpCdUcxQdHv8ZMC2Oy5AO1LffHZislS6Ya1hcaX0b/ vwZlxoJl4eSDRSQxssvD8YgFKjVgmbbW/W0cePwEz9bzBYXhlsBmJ67EPpyII9Oe31v4E+ 0nyKIXtVMlljTynZ0fqeHW7JZ4+ n0NtmqR4Be19g2ibP6ZHNftyuDM3IsDPgQDtSzj43mtrBeIK6zeG8cu2i2uglHlCPgbNu3hlPLzIUNqh 0ErwaLWJDvi4ToPbQ1j25rpoi80QJ7Sn3iwBOGwSibMT4rUFTT2YytHV6mnhaaNV4Lm71GaSoNkxmQeF avzPM +MF/ 1y1UX3n8xv1FnbPw5mJNi3pNKXqztNYOB070AsAdnamTE3N8SdL8Ec0iHuLLlwAPbA5c9DqED6it8h9+ l+IfC/ueNpR0A0XFVbY2mzkurnnzl0O1E+0mmaXx0LNo1apNOmbCyVMDl0PBoRkBhl7w+ePH/ cCwB3sNkQ+ sO62YbcHpcHqzusU76eVepEZyqTmDkkKUrvDfYujoyIAoaPjjfZt7Po9ODsvKmb8i9GTijpR4fPA8q9u ZQYsrRHD02KZNG0oHqUyZv /2YbMO7krDz8LtYeDqV0zKSkWE3FfVD/Y6BOW8eivdkm2ys6aWNT9txe+ igtraqHeqnFvaMRjZq40gsTBNxQS8Qp9mCOoWzgh04tPgD7pGkupVd/ p2t0g16iJokpf4NHgscF9bTyjVp5fhCAdtjxqVyn4Uhlacz94BhRLqLz44skfFoqpirVKlE3x/ e8rrDkXKxyEg33qDvaX85goMfr34NVLUQsEa6n9l2uPJcTrYqLjlcJ/ MNRPBJx6eItJHbfC8if5ku6Jan8IFK4l020SUdvtA66vth2NG4OdfA/ W6g4NOcDpVsLDlqE9uhNttWxD7RzqXIPu46FjH+azZxLC9Xe6xvgQ0Eii23A/ PXb318Z8TrH7KkUmL65V+J0gW+i2yyqbBw8NbEhqGcGGfbIZj+kNL65LezbBTKtrrbUQv/ sYlLoi1roIFbjj1BbnxvaOq6p9tI65N0Wp50RP8zXGvAg5aWqlO6UBgMwq3Ck8IXgXpKwxJq9IZkxCq0 jSnSWyCTEsRxBdlZXt7iLjK1Mzsz /4ivXvwx1HBAe0YtOnq2sK1K89j2o77g35u5y9ChS3vSsA2qVPdL1AaihMtrqL1yZS8F/aUi+EvwS+ Sz7DIxFqJ+MvxOvkX/zRtPw9jxu4N0CtFyHpLQZsuwPRYITR3j4UsxRjnK371u7m7rIZZqaQXsW3l4/ 069qcB6EjhKaKnDMfxar/k09zbCYNCBw/ SdrgcfyLP6t6lTU8eTTHp2mFyt0eqKn7Vtd4bf30f9K6YsQQ/Biqs2kQFwYRom0jC/Eut+ VuZ4fM39j32C2RQxLm3VUDYSHHuTCBMyNg8oRHQjLdljlG9i9pBNnlEg0RlmQgtbVzr7fOvuXYjv7R/ ddaSs+YmWg8ylm46pscITMIVEuYJsKOkdZEZhIL+ ebCcPbzf3R9jbVQTJNflcyUxOvFrgaggJskq3xwZFiQ7y51kAtwOio3P9hSonpvi7m6PEAIHrlkhroM8 Hutc6n24iwatDjiJXJyFB / DN0qjpvukx1RmRXrIdy3MpOR1axWwWbxPh3QX16OoWzan6aI6FwsOD4PRAzw1V7quCFAwEXdecYBaj8u IEsiKofy /xj0VuVRyjn8BEKH5iN3C5QddlIP/ iaKWYiRXZDEOsuaGRablMvvDV1YlqaY7oz7VsNtEqptapodEP6p0dfAp9uj2UiZTsIhnTihvo79aZC0i zfrCxHRY7b7VTkNU /ekJzKjXDXaYSM0GVhh407AiC7ceBxu+ 9UV5IxY0pWsOWNmxpsH8KMIvXTai6UFOb1uZkYMvY6lvneEkNuVikFqB8LcOnNRKhPlINkUgRLb72Ffn dlkmbZlfnLNu +TSlJ4VdHBOkav5rSShSj3X7n7Db/C/ p0Otd44q5Q2N4nr572ut5SWYyz7LrBkDmmsSFBVGSNqZ6fTNGOZzzhqjpdSXHCHzaKkwaiWQVKJiya2c kgyG7DcdWR +9M5IWLTZSAgnQJ96hpQsHBspnmFQ4jWvlwGNCwbm84Js3vp1pHqkAdNC7+ BCPnRYJ8xeRW4elCts7WrkdhTnh0/l5L0/G/S06tVThxDvh1efinCW1zm7fX04et+ 0Ojmp2ddRI4VuBROT7ue6ntLjUKiYHUytbaNoxYmd/FJ4DmMoRlF8KsX/dUuASAw/ xOAOiq7Wc9S2kNdFkEoXEWHVY8gClVfkXJa1MbOR8eJY5zHvxSijlvCWiPoQ9ix33NDH1xqSU9JcsgPY T9PTyZSKNIYHTazlPcsuxl7kyakcTs /O/VfmRVw/GG6q1Jrf3qbdQGIcsmVxJDn+ TPLYwevtFuCkCbdx7ReWVC8JSiXA0WvU6nRWglohFQ77BBSUoU068SbtOEiYGwm9FTCzaadJRKpBUPas DlZb1gxiojZL2I8b + YIQdPvtQY9y5fGNIIahdwxfWiZqqrcFc0OwZiC5Z3ihQclMMvFNG8wk7UdeVmfxXDSAD3vISWRjX1UUh uv7jA9EELymSO66M +es46Jy784xu+ Y4ss2gjcj3PNNXbrgy48GX4d0jsd6uhkrcf8CuipNYcvBOrVMNtwlbUVQ0CoHGvnPCWxFuIgAayRYpRe tycV2y3hwB5zuihk8zCLUnXrdbtJMZxasEM9paPaxZ +ePTghS75TIhd0pG697TK7DYg3ahjGn/ ZuCR9yz2quygn8eLcuvgpCQmCX6qvg0mpR994I0RwTS7diDIPy6F7iTyDM+ 2QwWGEEovwYKCFOS13BVh2xsrYnDA8+fCwz2YkImzdUlke79qjgf7r7BO7X61bMiEbiIwyk/ kt8Q5aFSWPYdr4tOon6xufW4TCC7UHhBSlGra5+ zHL21utCGqH8azroZtQucw9dLKhpIIUGThdElJmOLzs2Xl3CevbNwdcyGvgGmzNlxbnATICzhuvweyvv UHleDP4zBuHZRouOCD3waVBkdsW /JmcRAVvMm1lCecQDNUR2jHlvHhqZYYlRBE2yYrAIXYrSS56+LuY7TeFZCo2uXXhKj6QN+ pA8D8oRiwlvhrEPawObRx1pLk6AI6q7ODuhWhsQET5wBnLHDH0uiQ4v45qozzi7pYv79ey6jOil9Et5u IrQDcNSZHSNjkQhnKqs0A81jRR0p5BcYa71vH774XTD9ssGz3bRRgDMHKL97FMvd9wOKQmKB8Vx9XDtJ 8P8IhS2 W9Nva5wfAQ8nQ+SkKtJMAA8lJ0fyN4imNei/Z/ AjRsWlXIrHQVy4lVw2Cz5MQcjKmZKll4htE3rBGVaKZRratmblXZmO1u09C35f/ bwS3wEoAnSE81nkQKJSOBGgxOPQkNM4Yo1Hj5du5ulBudd1pg1dlogod6vfR5nBtI14ieBPtNSkkS1ut 2o2jFZs4a /S/XS8PrAoYbBdgT6i4mNGU8rcOesQWqxMC37PVmMyOnKZvQiDsEXryZdgoS/Z+t38wnJV/ lZuGnCvQU7pgjpeQhfSBftLMm7XDRyhEN2yPaTTs1rXwXQMk75Vtlmk2F5629MSyPo6FNl1zzmKxxsJp WouKvjXg4OmTLsU8g3OKDD0UpKgJ0sGPeozLGnjrmy7BLGBP5rQomLR3MlHmCdS +wO0okSiROnWFwNyUzv3tw9jqP8U5cXvjROhzcrFVr+/ W7MR2ovF3ewlph8Mtpm2t7rsuqhlUd0759bsw66n7R3T9Ss5/qpAKevz88uxkkWRl9q0oyAj/ EmUeAuiNQwAuDEBhZ2pNbG5OfKiDoSZyz2Vj6QSk8K9t3zxjyl6h1IgRTPZDBeetxgsOSEBY7RwPNIz/ yXQuNiFbkS2W8LfsWbFi+DqOJrw73rshOBEtEyudLfJCKV5s5Od5fIcfOI2hTRmBpghjvB3EbPaa/0/ yyBBU7V3G/ bNp4V4ra49a19R3s79v9edp5FcC4ScpVFJV8RzoBh3v8G1jJqMSBF15u3HilulmUxYm0AMp2UhdQky0b A24f1vmwmOR5OaSk0xsJdVKok85p2dH6WOtkOWtV +6m5Yewjmqcj0GI61/iJwgEmDZkk7AoBloi1gAWz2M7h7GQT8qWbmcqHZfqTuRIBlfLM5nCXlqM+ PsETid8qsgnVjxRKegt0Kki6KHy26M1zkHe2wSAmEHUg4Wm+ EWxcUcVtc5gPkdtmFqMRcmNhp9COH0VfEEXaGqhAA2HmI9113QjsLSqyyRRFpKJFsTxwlUfkJvy3YlP/ xiYm2OpKHx59bG2MPqqsPTZez4PwrUKCtwhidsn5ts+a8Uk8+ 4Uh1cV0f8npDwXCyIUaHp2dymXxn5J6a5ygfUrva9bT+2x+SMGZPMO4QPoXyEbT46J4bWRvD99blK1+/ eNRb7xGl3a+LlR/QaoLz8NsD+mXzEOl0T1WRCvFqwAH+n/L4ethJRSrFyrK5Y4tXQUEGa+ X5q90mGZw2fPS3TQNnkVTZElNnfySLFel5bIVwJql/Fud5sSVQIuQDzfgm7NZAqKw+ Ylh2bstHOB9gwem2KiQqPOi4jlnxbFW0s9JJOkWDXQt7MV6+0+SsAKGOzL8s121P/ zZvhItq5fp3pNATbZnuDuvtHXDeztqTJn6kT36iSZvmTEPXzBlBWijjGue28aBYsFORcIRJnjYXgORfD X4rmTZL92rarEBu4JIo1E5RLOLXrRxLDowMxNFTQV8bALrzOgjdTLRRl7a8si7xX7oDdzeBi5sRQ iGKB3yK2jKYTFGRpfJeE7fuQoAIMgYbG4DvEKqG3Xb8+154G5f9/ MVxtwfYbN3z0kLW3o1nYXRZUhB1J0jxrNKnJfIJaVkgPV2+ Aidd10nfgvjLtOd2zVoheJIydtjwfHoKcWpVxamPzfTpdIFmXKAen6uaYjHh++8FWM/dWMjC5m5L/ xBCgdBYRE0ROZnREAZYNlwm8TB3N5NvKIt6E62Pvr5GdatOj+ eWj9fhLuiSQ45ZYrBcZsau2aIntdyYkL8nzu7sTeTstauQM4NQCLVd1r2lR5we0dgmY95O+ RoHentmkcZWav9iuuP9kaH07aLuLeSUPa0mP3rhAxsxbXAoYSZctjt5z87Skav+ y6nWm2ugCJlodymjaHvwHM+mQ7X1N5stvK0aDIJ6vIq4H7yyLu1jvfxInYSwPt7Pn9RQLgBi/ 1IzvxDOAXYBynzgB9NNHUyOdqYoyTF9alKH6WQXEktbx17kWJlz52gIXR/qqzX0Gcv/ 3lcd7dqww2eqXzhJUnHvMMrfAbN9e9asQf7puQAmNuftijzoBQwf59qxgB/LdO/ n0F8o7m9ISjHPryOnCG5qbKxcTdEf2kffI+rSbd/ Lr7Kod3wxQHW7iolqiwUUkoLHK9vME0e4K0yYpJuf/PBRRG5DgSbylGlmPoBwO8DB13ep//D+60/w/ 9r33ca658xae63lL26h0wwLXqgnIhuW4NkPLmQbwOfiJXee7hgqA5VhanU0yRSauyRhyfmv9Lx+ OS2UoeytGv05Nkak5QwPhwRjHOQnRUarxiEuAFXR3qXTHjXuAVtj8i9tMcQQutJemkpliNse7pGjgH9i VonrKhqqM70G0W4b2eKAPukkTsy3tHvEH82hNru7rkKnmYKYefUW7GkeVjtVxFbJz60qV2Uj0trkrrnR JAdzgKsWBzWC8TsJPRD +dBEI473uw8RgysScZ84yC3z78TqDP9jpsYITJh5zAAmDhYjDXF+ cwGi7cmxiGPXciJ1CmeF4derDbw8W+FFKQplt1tOPcG2SEqE8/EDmb5Hm/ 8z14YM2YoTbW43t0AQbNIvusRvkSVyfII0z9AX939DYaUiq7mdw0jqt4KL5ayAzewjMdayoRUnPZ8625 Nzkd2n7gKNxQtrfKL4e4dni5lp08QtwzRbRVV24SZSkjd7wKTf374CJeqll7cn8dhqCD78G +NzHjQP4e3+HvlM1WqzYw0sFO8ugfzcFrZ9pleWsg8l2/LbTZkufsskUNnbxRmzgmqVqLUVFuC+ TcE6q0Xs8Xx3b9achaoQ6Vqu57uqOC1s03g+OslNCoSztHhRvGeNlcDZepbdw05OAj+ WX6kKRkI2G7sAUQBC3GwaYj1daunBJFUSpTfAaIzi4JEUUJ6JssXB8eB36YBrSL/wCDD+ IxM5Zs3v4dsO9ztO2xHlB883aDgoPlo1EEUz0C1bRDoE6pxftfYfkMAV2lpacvVl9jY02M9C4VmGR9Cu L7YYvS7QC4rdQHxiuM8oE /hNTh8FCRSC2xTDrCpCLXym+IYJbOGBE+k9neOzhb+JPY6XakXil+ QHZsEjQuzkl7t3QZ1awwPfYyR9r83DzQkSRKkXLHoSGAOBoJJVNHgGhCnJ5U3OlCQq5iBG3KVjahr80o KRk0wdxsfRjyPo7A3o8UHcyY4ocQnGRB7RegzPU5i2TMSgjT6c9v2sdEXF8ny4pH8r4oi +SIF2N8K0InhT0got/ woEQd00GDKpogNhkjzMj2trmwbMXkkNmerr2onyff6h3c8zpeD4pvRzZizPtglqLvI4/ t4A0t5iub8vEeCe5skqMTIBubqBmYzFAaIXxM2MboR69dbhIap8f7dZUkgCjk2k9HgYQO7V3pOARL2R3 wkgYNwwcnaC4u2byQF8GWEyvIRexjUuwhHEX6tumKZzP3gIB7J7DMzI3fi2YwyzzxRe4oJifRSGlPc47 jnIz9v8XJJh40aMC9o6nfVb4ubXlJLxdQSRSIa4R74JyY 4g8U68GEQWhEJey0RuRGlsInYtJHBCylD6pemv2Ndf9YN94uvg1orY4XuaWzP72trrjF1o0DAe1Comxx oENiq6tRQA2dI6RVJ7n3 0ot8GDZxm2S5zyE6C4pyZWWyKXM6ZnUnMvf6/ lYvCnh58IQ3Mt5Ge9se4ekE9eZmG4t8T651SBaaAmXz4W+vInXsCjaYBhTa08d+ NjS4qKckkW5U7HkXIY5ayTvXQAktjzQ2lgKs86416Ls2ekcaYaPsPIsBPnGszUIP4fz+ 3QmTJeN1FeAnrc6UyYz2W/VJzeNdQ+rQjvTbY32uJ6ZTYTnBxJk+hEgMYgVUwAhQCZ40+ zwAxameLGiLNJf132m1mcezq0jyTtHKmMhqw8BDTzbzNwqnjXa+G727oqSETfOcdoUD1m6H/ rFm5pfAkK4yvEP6U4ii+uaKTdWC/dJhbb47b6az9hsbyUNy+IstafGB3507pOHO1x4dJqAkAB06V+C/ L3b2bzcGi1w1ibZ2rvsE4I3PiLok3x3yqNxNtbPcvhkXY70bnj8r7xAQIFrVOWzrxWBqD/0/ Qu5b5V0uspy+P4/Cngi+ m4d54p0v4pEDB2QnzDIiVv2hwGHQ2lRjhan1Sc8G2kSTMXmhczJARROXsNdo0dz62LsQOGZ5GSdwuyzx On3zQmR1ZxKWbjYy937JBM2WgtHY7r1TE4XBRIzmHBIVG0dWxzFhB8 /s5wqe+yJfQ1FWIs1f1oyzc0slaJ+ ou4ikwguGZYwDwUqDjFBo8oI1It5lYLkm6TmytlxqCoXxkAWSP5F8iAnw8Xpu9ezz0MOWYwybADZ0cY7 f0un4w8G3k8falypqJPOmpE4XG9nJVgIP82B3tr +v+OvJtpQmV39iBG2kUP0tA1RVOoqtE3Mzr8U0T4ke1Ot9HmGdpwhbUMWWchbQZLav0dkZzpz9PPx0I/ e1BFq6wepWlkkooJnwDAjgPo7wjjd722vsJ2dV70OrsgQ2IZL1DMs15pM6sW6/ wcAHP4tJtDUdRKOjlaiWstUMgYXjsq32ZsRjgD7+su4DDNHiZLaZTuPwRJCGWROWBDbNOgWrYqM5V4/0 +1H3lUeu/f8Ap7n+Kta6jarzD3quk3+ 0oh0grQhJTQr9X9AOcFR0cPEbTUTmMShKaZuwuRmwFZ0EhQ87SZWAcqNfVCWICLLiVFw3lBzLHeLVgWo xWQlQQLkBGBHHIZlO7qVUmyKTqSvf5ujbuucDm /e4X7fun+j+Z715U8ufKlW2kr9b/ pupXnaoHFOrjoXs262OLLSTbqBqaqKUxreiHAYfhOm39yeuBgbPde7XDX6+ yPMky1h18PBRvu3lzBCLnIyN4JD8/Uc75NEM+nXT5v7/ OJxWKy3qaaj1zeurXuv1E1C7OTe6RfuVvBkMsTuJ3SgW7DAo+4ZJ+ Hw5XateoaxDIYRq24j4dvu9vJWILh1YpOtVwTB2fkHIzS8l1IVVi1l5iX6xSrOdIAMsnGlKKgjjhWojU CrM9CrP2I7Nf /gX1tt+BLDK688/TV3u/ SuBs3N7fk8NFT753MuPKES6jmP1aYbybySnStMtS4OHUoh5covWgHO6x0NuB6H+ QlWtQVU8MOFWY5pcvn2mD/cHLlBUiW5jYfyp/ fSM7yBtESQopTds57F3WzYztcsarMbUMBUrnuW16A12vkqB0daEIvy9nt3bz5dupY8dxo5FMTY2kaMXV SFOSXTOnVVIxOL4F9Qe482XYPzQsPSKrPq93TQjZWz8tQ7l9pz1J9GON43cbcCDFoxfrFWosYEMR9pod yQxrLuvGroc MXJI+dJwi8M0OoACRjkv863wzIGPyHax1S54DVE1s066KhfWeY8g6i+3q+ i8Ow5cgn8Z54YuDZdYOiomwvYELmUGHN26tRIhaax5CaG6BFfiyVXClkGany60y9NU1zY5z3y29uhJdr K2bpfQSk0ZTTLmfgfRkraNqZhu4 +91ivirMbNoksFOLXNRPCCuoaOpnH9dFgr61wrnt4+ esg3xyI8QbufwijhkxnUhufwdWbPR1eqdEiQEFxtc3V0jdYsVmGYrg9PnfFlDEbDUP8MKjCXHrlEsXbE wrl3vm +6O9MxWzEvS52BIU1Wsvxdx/ AsquqJlDGqbar2cQFWfYWjojkBB2TWXAkVzsQw1Tcd6243lap0Admfh7rqQoVsaF02jjJLAoaYn8llSB nRypHW7lO8xHrHOzFtzvSGniT455rpqVeHZGBzcTIUPOUxhAIpWJoI4a3C81TWw7TP58jmEKKEljW1 ++gYWp6GiIjp1QJ9KR9NBrdtBqXjs8ukzab3Q0Gf0trPzZn9j5al+hq39/MEpJK7paHrDcR7YTm+ AFCP7LBzinxqFvRIlewDqB7cNVfK9DV8o0T0NHd94VBzhi2ICNbtWnoJIQFEB1dbnp7sxVPTyqovUGbj ueJjlF8 /D8MdHypJlN2VQSvb2CfgwVOKksk9gs32+ 24ai3EK672xdIo74L0916OPEBeW2ZKLunkLNM9HnB14Osc1ErSJLh059ljYyMrUGDmZW1U91xoXHO/ hmenIh3lu7ZHPngG1RZCDaWby57UyjHX+fg/ PsJTcO1swJQpa21cec0ZxMJFKOzZ4qmDJtoNGKVRuBEBDFKBkZOg1lZrDk4Vqg1Tj1G3+jVtPTy/ D0HJfD69rwsusrRZzZY+ GhyFfgkrQqBUjoyiBIOUwZ4F2d1ytFreBlfLFLK8ftyORBqGXJAZH6gaeaaQ8CTjHNpWcaCThnqjpNUQ gPzugNk5bMbUe7pGKIDwABQDKOce7RRYgQdhunRQE0XZXczrlhCsKdeyy9lxn9R +e/LjPZrP0bq4wui+SmaQ3PvJ1eGKxiKyAKegaivxHBTGvRVU/ Z4rxR5Mbef3QIL1ycPxwyxnuAHCIc93AwjWzaMRpHTpHwe48SPAY7FickJVvMaN5YV10vwE/ VdsO54SXtnmSDFxkJRVjYDIfxH7sqrhQFUZZhSBMoJBG0aWhowAJhm9B9SxcN9AewfJBc6+/ hJN9snwSIDeDpEUFtPKV8qLNw3edE0ZtdLpWhmHUlT6TE+t4s1vlff72cMHbQorxREMcqTx3+ttdHfU+ LtC/Z5+IvxJMWr/SSY8FOkvyNbdGp0Vyjf8y3JiPiMdQRwjfFCKFM0Fs2vGoY+kfC/wAPvh/ 2M5S3lj9qTqsqcRl6QmGDgjnga2qWkEhdhzv/vPklVSFvYuaXu2u+ MQktyzde6ORM9K4h1r4J8FAZJeSbPzsOA7pQKZ8s7QwYbH3TJO9oooJ75zNtfTKxUQf6UXPNQSBJE9Xw j7yNolkBbvBIvnV84m44ep /prvjnJaxA8bo3Fw5RWv3B06/NII8oXpiOnSoIENrUdGMmgZIPpHxUxxrUCsubEVbEDFpFbh+Lv2h/ J5zxcSY3+s8ttzZPz8QSDKQJY8IubvI4nbJuilthB2rWKSN2P7QiFtg/ cuzDx6XZ34KjXlXxNDRdHk7bxXfaJ9lPvdz13QhHGhl2W0dzu0IX3OgWVYLHON3VNrtTgOsm612BNe3f LjGN +LTPcPTWyZwg6HNSkDy139s1+j4975uqHYPQ14psJUax9IjBh73+95R9IT8Fjjc3H25K/V06dW4s/ X4IaPgqy05R0bHIUlipsKjxiZgEZxaDgKX6sWSFyBVUY5KikTaB2EgGhFvteLA6WYJnSnxSizzszg1FR P0SM0Rks58R0FAGJfVi0hrQTxie /pktO2icq1izRu0kX0xC/tXFW72q5SLZLXtX08nS4+uMke+M9wc5+umz1wQ0zIxex7axaBH// BW3pZRL1uoZ3t5ez8rO1m5yr1YoxOv8WBk4x/ wyULzIpboAXVpBnBJZGEpLo08zuL2YuBNVcnxJ7W6NFpI7aTH+ M3ztApd5Q9XojEZQi0zhZMvuy37443653r4bq++2zv0ta+ r5BkG4xDY94P398x3PfxmVmGgfG3McHaEoGIPgn9Xc7amL8ZRXJo9i3To3rkSuL4PV3FNx1RmCpPgnru ls870c3e /xAfkGssRQPyx7Kdqxp+LdfIdL2e/FXVL/IPE2n2Now0wXxQpz5yhDaAbTOKYkRtgTs6/ ETUEfz6uV4x8ntnG819u0gKfybhtK41UfHhY2lgfp4FjUorb1uY+Z/vU3avykt1t+ 4VRpEWsQd0BOd0XUodrrjLIiRETICqE9diOOAh5KiOveOPu+ 1cSFI3zSOzk0RrHKNkSNRSzHt8d4wyAXIoiOeQMwmU7DzJXNSs1iFx3yckssr22o53bEnN+ ENWFmv327fZ4ja6HSCUrpF02uteV56xTbZaUWwTuQXwR03pK6uFu0ic4qLHm6+ Gt0xz6RfkZIKSEPRckxcV2H61WudrgNZfcdEmnymMKdeYnoZqBmfm9vHQ0vvrtfn3T9oe3bvaK+p/ 1Amae0ZthliCh2vCiUMbs5eqlp1UfqAKok0QHJWqQ/lvHLyzsszkLa67pJhflg62+ OrDbYbYPTRxp8bEEjQNxFb02Quj1xKc2XL8iwfwLdr5dx6Pv3A/ANn4A+ FpwPYLZ7w1rmLa3tNYOSK0C7UfTwbKZIKfhBorQriCUKodPIbeEQTFQ3WVRG7cr/ ycfRme3ha081xIctWwsyudVnClNAD5lchqng1cGme2GvaKNbpcu6gdB1ywWAlHVFPsYO71nEw0uSUhv+ K9cR0szhNnvXR419cs2BxJ8MDV7N9doDR8e5fv6fgd7mv65xtRte8e0ojIIyMhzt5JpaVK0fma/ lsMsD8TBIlrhAAwUsrxn+SeO9NS+F3jaVxVivcMFWHZLwS2eMzdsxKOAusTGx7a+bd3fT1+b+ sxt0A68f3dyldxFBDKa0Mcbfl3Pl0b4lfmR0/OB+2l/wTM+Mho5XVtW/ y5pNjju9qnNlz47bXe94MD5NZlFoo4nLVnXAD6yaZnBMRhWnVJqbv+d6dllDxi0V/wA/Pxd/4Je/ JxmTc6zuE0W6CoRskMPfLzt4MoUW9A03B1F5oxsH0MKhCJm4MT2YHyBIQk7jgWjgkGnag1AN7uTNY/ TD3apd3/hN5hd5Ae9BxY1ZhSnaUGzeJLKI0i7XtvoSB11ny/ Vh6dmW7x9ViBASvW0saS61G30Ch1e02MmD4ja0Uj6BqAuoJsc+ TfxtbwqEiZ8NlZwnWbr2oBSt2kBUhkau/ad149uvycOvVgVvXr9GpAiZiZnrs71VMKVEW1eU5+ LgJxnPPkQLej1KaNuwnHVFt19wJp5ZpT2+S0kA875n3Bt/UvCek+RFCc6wBdT5Q4qy9/ WeuGAR3avm3g0zPRzF6MWgy1rrjZhLhwKn5G/hma8rk6eRB4Cf3HtOeFVrzmkC/wDBH/8Aaj+ Skk7XkQ2Y0EPFaff+lhm1O4+A19Q1gSBwVTgUm2v0L0wb7R2VkUeeiDs84atGgvWHD08vq7rvRQ3o/ zEn98Nekr0sIXRTaoPhbFHQmJKmYWFh6fAHy+JVIS85beVFpGBGvopU2MSDrHMIB2m5+ ICsb1P0XWWWRBVCEGBGyjiWNZAM2BtdRoaUdj9vjLVHJLDatpApEPVXdKF2ofNdf6DfrYTggl6oE9fuj gsz4ey7 /f55e9IR9lKllkM9TISy8gLiIxAl1vw2apJKOHM1EfdR1a0oFzOBinZe7xDuzhmP+ M0nRV7kOic0PTEhPdQHlpCHoRiOIotLz+Zc6gqnt/SPvPBvw5+L+oWFpze3S4W/EfQZVR/7K8f+ V0N0F6TvVxZFCujKRYY/+zTQC4m+v7DfFO3xkp4BVvVdW64dxuKg3NtidsgPe8aCeq2z/ hDstXq730Nwii99zldn8a72K5PphwaAIyxsDb3ZamsigE29lZ2tFnjcnNEICPyOyPwQbMhYxStmZ9dFo 2sa9VzIfpeG0Pt7TAc5S36HHXKcEi9KblVTxNerPdbu + grDJ3bKs1fWYu7Z9bwH0K4dEdY7NhGBkKs1SxHAhsCG9hy5g3oSgGRIKgiLQ1KgOGaoSM8D5F2FzO0tZ YFvKnJroj7YcJNjt /0FfHn/AIJm/ Ga3JsG1l9YhSbT383TsthZjgCTSaBkm0ZZmOc7Oi3nCugee1EvqF16yuzZzd3gCCK7Lo3MU4Yb3t+ Ue8Var4H2Bz/a+cw5ZtJho/i1qf9NZmtpmM/aYITKbVxO+qNvbFNOzIhx6V+ 03s1kpwAehNGS3lKpTpRBPs0s01s8pQi7Vr9KxzTxA5Nj0Kcf7+ GCZVhlHux1F8ObBZ6cBJB54lq3fqWOcYjaAhW0CLZ6kri6dC+ EoeSctKcraw6fvbwiXQx1mDHVompCHIBXtAAJ93tjEsNDtuR71eA2o6TyHgV6LUGOTksJpOUxvuTjNCw IzE7fi3TKDs5j3b3tpkHIDySTu +pGJeNeKSE0K8URrh/WwOTh8Yg+39uxiZMPi5QwnxrAfXVmvXKuro46tz8/ mCFwA5amGAJtDdBb6ityuea1Rj2atzlw1vA4FLVm1K6b6l5K2ikTscRQaotL4ZmEcJUMiq3lDB0FKbEg ldAZzCC7ytTcVCh15ccvNYrx7m8kv / jVUh2AHhOv1DK5fRd0DahQbSXamh4DsZB8vDpzTwY7VG5ZioSdCnW7W1Yt2eLcttskihcPsSACTaulEp Noelle + 3cFivFqcIgUAVRKAk0VvOkh98E8yiz4oCn9LNnhbvE8kwyvhv5GCpwXTG9gn04WJQxvIHkzt771pNhhP Hdi3xKfTdhVVO4 +IL1P9y75mxdwWFba73VhIi8BPDNhoFJkQYtob2t2sRsR/D5730yxH+u/ UU5k3Bem4xxuEpSu9Fu1h95F0hIy5/iOyvt3reeeDPR0/btVtzSkkA4ne4UOixQeVMWdcnTwRbK+ fhgT0rlJ8V1Kcvei35FmP0mI4wJxYCU3p9qoSTJXxLfAy598gMtsP4jvKW7x6isbqBPu5lIOscsfcDg7 FoyqrT7P1Wd1octivkaU3sO63tU +N1teiF1uutbxhsJ9jx5xwtGBsZ8CzmOzlM5JM1z97WghqrlD7vzfGERnwSL2A/ G8LllIT62tadSSVZiSl1kyClt2hg91X7MLxt7Hrgvyeny4UJtYowgCT5htzzqiUFNp1ndjFq48+ MkKcq3k7OS3y6ct060NPlb5t0l6aLJuktoZbU+bJbEWsFw/7m7YINNgNifpEIWRwRd5Tj+ Z2qSiIL0rrNoFsf9jqFDrFb8KSLpXejSgRZ5xHWLs4+Vw38qQuCbmF91MigOiZe5X0hb+ d4LZfsGoIYFqMBHBDUNVFbedi6D0Pny5nxT29iJ/3yhG7FX/C1du0wYqjoQMuh+ UsqgT9Am9JkwiNWKmkeQ4m7iyfsPAiJWw/ gvMOqSAAY6PRVFSgXa4hg2kUo80xO7vCFA7x6b15ul85326urwLauTLWPBnUEI5pohsYH/ e793FF5PxEFzNGWBVBO8EMtSNCWxkItALHFUKJSvLJfNKEMQrlisPL5LY02k13UeQkqM0ajHF71ohQ2g VRcLacLCDYJqU3JGQZBrTOLP5sdRzeIPcYPZYx3x3p9pfzFupTzv5dAS7TYdyVbqfVRv6USipQVstNKU gDEVE8uU75T885P8Fxrjg6IlKuoqUeqmB2bgPOtJJI qypdJg5qRv0cvLQNURLOp6xmbhNF9e94nJUf1932g7n1la/fnkiks5iqepFdxfA3l9zjdc+ 7M06ldf1y6nk3N7pFFI6qrqUiU0zdsMb6IaYFkwCZF2U4qiV4X8PzFKlTmkEO+bykjPo/7L8wGcVlATj +Aihw7Ub8kKS5/TJnblXwx4OmBVThQ196BR9kN1lz5hFx+ CaOf0X5zyQs3Kb8LaCujvGx9vV4Dp9dpdejNssh8wfbRY3mXa7mBpNVwznd6VbNmkHBrtfL8fwoIKMFm 3qWNWue0W9P + Wu3Y51iPGqzCVCavLPp5QCz2oMutWocBPazkb9FfMyhzJr538Xk54BevYJ0F7Bne0N6Sh234Ce9eKB2f d +iS6O/Wx62Fy+jyOKM3noIdXtiXA9J4DM3+Q8lwbP85dkuBz+G/D+ tsG6abe3mZfF0l0JuvLAIGcpxPJTGHReEW4nJsDOSENKs5oVWPfRtiJvev+WZKPrj1U/ U6crJ94M41FMfVV7UjokYsyOLUq4r5fzGsPToZxC7h6N4HDj4/Hw7tSbqa1pq4lhy9qqDQBV+hPF/ c21RkWp+g6/ebe1MvIvIW9DJUxX12UM6oVwEm2T9rlOIgfAc3uSruv08caCe8FkmK9vSqhX/ ASsthR5J0W8CxUycw2PpLuciTf2y9+xd5q7JAvWz6HL/GG17ywSA/yGtFdT2lmz/ 9t8qDH5K530f8A8d8P8Sn127hgq3k2nSc6B8C3+5l0i/MbKKhdzJ3fkEo+ JQp0gR7gh3PKVppYz11C6c3ja4rxwssY8iwRrO+7MNfHLMhgB4A+lpSSbc2dGw4OopXAQbxme4Tuq74+ Hq6H4g/wOSj6wAOUw2g7V24PMh055ImIfdzcs0wtm6jzCKTY3Vt1kaIelsaqOHkAQTZva+ KoWHh9ZyW30+v9nzKmGo3BLhxThi3mTBa7m5LhLengwMEDhzAT7+6MQve0BHLWDF8eo53H4VJWdJ+F+ d249anv2m4sScPJAl6TAu0AqCG7bq83JHbTqdRzakAf47vh+I5dO0+Arh2FSuypMxhWb1w150XkCyPR+ hwAGhtecio2baTbYBubUpqszZaiRGF6Pax6k7t2k24Sybsob9stvYIeGHRAO3gntCmpFahcdMV0atN9B AI99oNaBb00IgP4YrHP1g1ZIyrJ59Cx1fq86s7ygOiRjaRgZoE5owUj4y5R8DjIpuxRJr19llveA50GT D +peRV4i5Q14vep1WWMb62jqwAMkO4wrD5bxzR9hg+7ud8jBXIWwljPsXxRbV8o5J/VCYtd7znAzVb+ HtNufE+jK7MBBi9V06KgfxyPRh2f/ afxq7MDv866G2rdv8ln6wQuBkDXxT6yrXui68WzO3Vz83L5gq6qVtw+ dvkf7WRI5rxuh3w6h6RtnpTWQFVaMoh6ZUpfTeqOYXSxXo2GyGSXSt7J/ZM/4Ug4di7Jc60+I+ uWD85D8jOgUGM41zU9o5Zk8I0Y06F3nfKS1gtUXcrgsrr6fddxrf5sCdg3mFmbmkmaAY/ EylKUFFTkvginGOneTd+IP3y63U7yhg5vLlmL1YrVMKtvWdfKvz8VNURwEqAmuGTGYsdRS+BWq8zeNy+ nhVpiMOklo2r+P/AI+/0OkPYX7NzsaQ9fxNvgcpH/X7onGJvkrWL5/ b4f4v9a1fS3sgO62cq4WqxGQUmfg5xrmPNFx7q6Q5cPt/sH49+Inwu/Y6+ Z8i8F9Kx7Uv8m42d4IJnvo8ucMejExet/Yba/t1lHGLM1KYC6rc3YBmi4gwvXpJ6DiDqCDqL83/ tAsUZ3pLok5y3QaN+XLKM1cMHqvzX0e9r3A2J5Ez80oO6yvIX0yrbobW6Ubh67ljWDp3K1E4Bcb2lN/ wO+LiyEfx9rT+ irTKM3v63Mc3dXkuAk7gtI1HdFdmU4rP9UusOEZW7tXFw33lGQtQZlJ9s3GZbYg88ZrM8PZHS3dMePmu pPmw + GHQ1cElPaqmhg0N05KacC4zU11uNn0XQK97sgXgVRBuqDh43JnAV8exbQGqHAyArsEGCQuwOchX4JqNv GH +1n+ 5ogi5ANaL02cC1Rusi1GrMo2Xm7ZTZJVhlOWuUlncEa9YKG9ebHcH1kwMgQSTCJTR84Qhy47aNKPqm1P DYaV8BpztpVREL6LLFUQvPAokknNfYLfuN6ox62g2zyAlRe1rJWytMOVIhvJDX9afh8yZX3qbhUW +WE5u2X6J4pRwG5TcY9awQw7Y3crzKqF8DOnfQOWNqqkCcUhQTxCiBN/ OkTx5SSs2MRcDkdEXL87U4k7qUiP3dllen68bVFBNLzTuNOevGsMe0WPbJNejfvRC+ ZxCtycfGx9eeHii7ss5i9mjDkaNpA4ZiHcP6znASEvfwKASvXMm0qMTaYMSBnWIiufINXyLHy7fScVxD dvC246dFU + SSACfXeTeKQsbsHCEC4eVBHhjjy1NRBXkpizoXwby8YBNoaolIMB4XIndtfOEX64xs3QoW3eMgalyteL B6RIWGuMfd7AqSQY3dwVGsypt7sJeK5gsI9hhR2I0L2bIJZWzhj9u /y9Qr2ca527pf4sich3Ik9dbASEWzHwGId+QFz9/ NknlSwyPBNeqF8LpvTNfjDFkpMpnKKZLBfZl9avx0MRXAqrk5fsKVpifcV0nnmBLRIH+ dmZsSVluXTW2gF1SYhAAAW87wy5qIfCY0tXoQ5tGKLC/gr8izeAggCgQ2MhoZh4Ex77VO2vt1/ r24599N+tjlzTbRwB1VjTDt8x0/Lp5Hq/ga3mee/WkY5brysgHeen+ rXoIru3G0GpyqG8AMTNaP69sWquRABJJT2rGqVlXB6qSRjHzjrcfDFboyOXheyFC7tg1xSQwfVFNVQLM DUwlWiqz0klB3OXlnK9eFIZ1cnA +EkRsZ3xaCOcQ0fkEdMdE1FYPojSXdTbFpriJUl6+ x19n7kJphD8x85FNvB75U0w62yYe5CRM5Lbs8z4yX4iRIyumWDKTV6yumB3eFIqFwKWsKUo5Qd7mj60g cB9gQKlGvNszODOivG1phSZYzZJtS5rdZSOUh4lhwB8Bvpidh6YpwGdEfJaKheYlOlbY1NyFfruxVRIy RuLOLeh7zh +1HRHF2+mH+24o7up71SHyi0dsnGOnBbHuIjE2JsQtXqTrWVVJgMr7g9p4pyrg4766W0rq/ jFbdpid69ja0vZ1H64lme30uaWgLAv+IZtVtUuFj/cwL2e6fPpDrvZDWLeznwn6IxpqR4vs9+ TmnyAefIEwZ9Q64WqJSCp02K9gA43dmIaSrE3UFX6fOhiqGVIqvVMT4kKfHsmnYIgeww9+ 68bMM2EAQVpr1wHQmpp/ yLZNfXzdhEHWTKgiLXF59oxSxyMlALMej1tLsF3xLa65P645cqPUaystl7vN3w6dhwHonlRgeVbmLYED 0eV5aiiBSH +4R64Esb3E2QskFmcEmrC7MztoyeB2eodvr06c31x0XJY9ANqmiD3M7MvMrbe6oD+3pfyf1SIFqwe6+ jdCBL3BOWH0GsIUozTUKkalgJ/VPn2TDhIAhTtYA49+ 2Zh2SJDxg4hlxSTe6FOhNBjSB57bT0bUpP9tdQ3J+ IgKfbnVUQ2ZV5z9otj0DU39HOy78z56vFjhXB6jiAuq0RvOerzqfeZdu2bcOiZ9uvS1j8Q22O6zHCDTc k3IW1tFOI /t3oUYDCY3guRhW7PhiSjqeKMUV0XZfoFSg+UnLnvktC01a9q4L5/PRel/IZP1zXpv+ e1p5gmOm0PxL2bC2P2uoTAJr8wefs7Mg5eE/ux8Hm9VUhTDeanRNHEA6MrlDlVogDsnuOuvxXcHQUo+ E6iyGVcFgHR2GI5J+dG08OJ4zApEp9ZyKq+garcia+byTnXq4O/ sJoosiJ7g7S8KD6HzxeF4dKGukiaD1XQbh5QH6j9SeiDzLa+ kLyHc65Mz3KrZDjzFVAz5nkYDBMLsmetUKbYeqbbh3pLU/3ZjkUB/pXxNo/hm3+ Af3Z5rdBkwkEMVGUKkgFuoLR8wyghrzbqq2rWhlviUSEy13qef5gfw6QwREoOhmHz0ETKzsJIu0pYJaG V21YhzX3rxF0D1ohnKdhZWd6kD2dxMfnOxIPasjq5d3zC1algse2tIzaBU4jaBKngeofkkkkk7xb9w /pzF3uWgtMZvO210jTo77+PUkuyUrjmy29vL1XhiomYJRBpod+ e142dyfQf8ZXatNzxruts9yLgIuTbLZUlAMHW8bks4EoBKbxEqzZEdH8V/wy1G//SEAY4zm2KAoSInDF +f5w15MyWd6upzQW5DusgVxqG8cpqpNQNA0vhLWmWatNVlr01Xw/5Ec1CwOC4pQ/AIR+ 5w2PE0M8BuBUYqxGO0yutbtX1EjdtyC9L30YqSTBjq497Y9r+ 2oDme0vzlwmEsL2BYqtyZf1pZCft8Fx5D2tjapy9+cDRg6BYN6h/ s455fjYsrXMkI5yzeVWCj4zTnKiyW5s9/qmlstU3C12bB/B3h4fbb9xp5TxHv/0+9t2Wa/ STjVeJqrCK4JzkEzQAXhlaE5XM25hE9qdAqL+myglecQV0t09LU+ 0SJ7DxOIyGAiZmx2IWzymEwVQolP0hr7vGwIuumL491+D5zRyiI60GvgqGw+ IQ8YgRn6tHDzb7HH3cwTe8jjNJqI1qWeMDocWLi4Z3Ko/lk2n3l/hf9gphqVbyN5fjBfccFdb/ rC0o9Rpl4vsIjo+ omZdxRCArrDCdbuEanOu3Spln7kfuwx4w472MjjMj5V4VijzquWExWlP4NgTcOnNGLXBCJT4SVDPg4j7 Ugr5cm4sbUEvazr +Ft/0h0W8A4tyO41esooKzNxAIf5E7Id+fQQJ3kFPEDJVzSkO8nwe6meyFaV6e8Fngu2q+D9Q1LS/ Fe1SkMZB57FfUExGbt8actKJz8TSeWI9QwcInunWSPz+8PrByDOGW5A59+ Y1vaQJ6Otgpo7yETvEl8J1wJ33s5ukE+R5c1Bhx00AoGfYDKwWTNuSsZL8RjgsiUK8qD/ FgBVGhF75o8XZAK2/aa5n1y+tLdhb+ QDy5SVSgTEIXvGpA4hmx7sKnhH5SlvuWgPD2jin684uE32n5pGxx+PXlyI82m6EK2h9e802do3+ PvmRIYGz3EgbIIPadCwjSgE7rqXYDburmW/d5keR+ VNP4zi9jsQEqitFkeoxXhBtt83IcDVDu9eY2dXl4OV0zAVMUASxVHRy1mwVnSJ45Sz+U3HJi27xAy+ Ek8O6t/XciPYsHiAscHbfY2sMztDbPk2xbSBWSWPt4fJRWyIzPkUGtsQhiFel8/w/ qegzRtDpusSWNjZX+iLVBobOZTMh8a7eN2Kugo6Ol5vIzStdU02Snc5oVZhZxw+ EZ8I5gKI5q9vJbPRHGpkP4i9A2uNLq8gICYNQoPyrkntfgA6fVk/ qQKl6inerDcMYIcoBr2u6y6RIx7w15Ej5NYfimt9xCRuxIhcgWo+6Y2w3Ue2hj45RDgMx5x2SgzaSy8l + EXx45mzboFtwmtEawKRDXdvBnRPg19MtZpAZJJMpKOKROLPtdW5zvYqBQzUcTCCXFYd4R2xAzwbyD3gL y3ZDRcvRqgye7iqzdpixhhaHoqIvMMvQIDq9Up0ueZ2d08TME2nbKSux4JH0k4YaXsnxL7liSb76QTy2 jfutaMbZy6sLpzsTGLykEk6 +t4n1AuSnu2j6Q8bnCT76WtZQY6c4mQQ/ E74Xcinc37O3xK15uOsfRYylw3ee7xvSBUEl5papWoPCc9LvcFJiAa0a4hau5+ 8g8C2hjQp9FH896hwB5QPZEvE2oVMqMnFimdqzoL5hrlsW8qa18I9M1+ 4l1UZrjPLdjZVybwJcA4MpsrzSI9fm6CTF0lFeFahdiRr+oz8G0pFCzr9bwFLJoCM+ BUqutriOY4rZX7IhHg7ie2Q11lOsLBbprWjt9nPRFu8IMs+yhbzuAqQmXjAFJG85QfR7El6AR+ Ptcj89QNZ0WByQqGP3Nnqnk5DIKLp1vsNEv/ vp7E4kMszFqh4j10qiyYVNG3W7o9qGrgb06bpCQ5LN10V6ncNO4Y8C7yxGINvwnddK5NgOzGVnzkpAM6 dorpmJyNR3gEMXtnJoHTLRdOO7XuW6cetf3a0k3CX9hFxB72Ig6UizwgTlKXbOJehNDepZk6dEYs6iHC tJtpnmcWv +RVU49qY0ZuoVxJ9YeLVbKYiSyKcRkN++rhVo8BUDjtOqOUqjPdKgaG71p3Q+Jfh/ ZCaY996pF9RM5L0qCuhtGK1yw72ka1sczqPNy53iPCA2ivaSHYYHdWwxIysIe3/CSc2PTO+ yfnpfweoas2yMD5Q8VpY8IVz3C10NaIaHbtThfQnDeDAg+dxu+e9Vg2RbpVgp/U/h+ 4sD7orTOsPRFC71um95ByXVkWpySMDqoLoXHtpUITNmExB6xlw3BrR24mwXewShMTHTealzSe0rlIsh2 RrPv102YUsFjOHQ4smQQcKsiyco4qX270mAnogOJ0CmX3iyvALct0xx5Vby91Ml8UxpQPh3QcwgCQeA0 Q679jc3F4SqV093IsX98QaxhP9n09YZpbcLhVltrJhx loXoDpDg01mEjTrcKoiUWp/95QGJcJ56P7AILBlZsvz/1njprOyOLQKDlaS6P0v0zxa/ 2SfOniPxbYeHku/DV3hm7Xmu3xG9l3wN9v5AEo1yZpIwN9oV584Afi+jLQrooeDKWZWTr752Y+r+EH0/ WOy40975pY5QhppL42P03OoRIY2fkvb5jWO5TCmCh3gHb/ eNyNvRJC88vgX1iCWddSxtlWngZUUubRybK6njkaM6g9lfvlJcu7WeR3BLHk7dmlFyuS+ SsqOqHdBhOuaxXLffQQskOOqrpWpPgClVx1JB1R28zryOoGciLMEKeZ01vLbkdz8peCt2f9vSuo5SbTX 3l1D3xehMwmObKvey0r +tVF0J5Ua0lJEYNA3ndcT8gd2BrM0uP7JirPJe2bIMzQtPq2Miwazh7eWCzmT2qBX8kohyfKi/VpNbi0 + x65IAiinrkNrIOzZRTZ5zT3WJmGPbSfQXAtivOMAijHGiumNovRfMofo0L76ZZwvUtBos7ZvNyl2bzDl TeXF +ByklL4jLLSCG/IcmL9T8Au4oRrdGbnQYhPjnZ83V4xy4nh1it0ji3bpYA/ Rk2n9YZ6F8NjqWtuQ5vXKlrio4aNbUqZMtAYVHTuubfrfVlP+fZImEzB4kEUvtyzv+ ajKccA2boVIAq3Tz5zpc8xTHZPtEnNM2rdjn+7mdR5ztsIsXHJ05mCf6wpz9Xzbovfy8l7+ 85BYJoU75CkvZA8lGI5b7S0vgY6x+vsYRFiwPLtGTT1OLaQgMq5G+M/OBe52MmXgTpCowg6qfo1Csvf+ iBTX6zcqscCjZzGuePhUKlgUBCDaPOVHoWLAIxrO2l/P5/CPxT+ U5dga79rNxcW2U8j1AmNpPWKVfJD3DFlZKNX6sTz0xmfb6ZrIfdT2tQIIOVcaqMenz8vQSkXnIAgu8HJ GngV45otzr5E0JnogaXpDGkKNqwBh /IsEtUPTw01Xm2OmxNOfexwk03MngSH6pi6IbpGusLGPl5Ih/ NnNs13gzrfukYJiZHEDBXd4G3qtKxgZm7qi5IxHEHisIyx3l0vKQpDtCQb11/D34P/ SmQbO7521QmDL3sY6pc51cvRAQ+rTHOp5Ie4gfk0jjaP/Fd0LPLvrQYINccCz/zN+ A2BvB5E0wE5dunA8Hd510zvkkkLqK/ bvovfyxtG5v6FtzSIszYyYmarEanTvQlWrmA2dLo4zL5rx8aKT3i6TE6CpxkmI4e21KnMb1c1dSWW/ TidIychRROoMBeR6iMlWpPbt8ax1WcCSH0Q2y3953fm3VIdWJryniHEteh+pc+So3Ewf99+ 27R8QnsJmnmp9m0BlW6B/C/r9DQOP2WfMqtGZR5ohTOskG7f0F8XcwiL6aK/ jEx6kJAQLHbffQBgWj8xda2P2vTbJ4TqMtxff7hg/ r6CCdRSc204U86SKIhzpcGiTf4oMJwniPWC6ie9XIiQ1WCJMJ1sJ1L3t598xfdmT8mdZM32b5qZH8R4I 7doo1zPdnZXMV4QT /TqRtBDndzm26k/GOLfFAWFV1N/cNJC5w3bf+J/ PG7cjaJCrvIdho0ll6pp1aLzJ8rz2Lj1r092ws4m3j/ kamwl3LFiyWZBlCzFeWx3VOf9BZpbw0S4fo8Plsrz+ FsEigMpYAVfGopOrRyyTHhxmayeqpgXni42pzi7MasUrqwshQsv6lFywkikRLKpIc5nvhsCqfzNwWGSH MGavMEsWlXeUocYqtiTYsiWiPsoV3yppduIkS7GtfpGX3awo8h0yn2JEEDWpU0ptWFMThu +oj5RmgYKADfwkEsmPy+PZmI3Gp/rCGkR4s+CLxFpfjXw/jhb4SzIfsgl+ z1bod4US4yM0ykcd300KhD4dcDPwT2c4CfPR27HMgwojDHozGhr9LE7fBSfDfNG0fbHLeQzch0QeX670 sNkpuNB8Xf0FYlkKxlWjSznBx3qzt3qF / QXLM2EEbJJal8JfrchrsBlMF52jFdx5b4Ol8ISa2gdpGC9SAJ6sHNVboRA2bjdX0wmb9XIc47pF98n6O 3fyX3a04Fw +CsI0cyENRQy0SuDziNWMoWM0751WHBGgBDMD3kVRSlilBZxeF20z7U/ NQDst0GE5nrdStI88cBcUzM71P6PmqFIFX4g6P9IdL5kBZSN0pOG2o1P0pszaq2tD5dQBhIHh04aWEdz ga2b0mcQ2u12GhE5cVpg6nztjSHEr3b75sKTbBQjzwcQ405d55H8XSaRbCKSD65HrhdsXMdAeWBaBfYg RdWKPbm9JXRPVEOGa2f09YA5iCHtAM pitjVM0mdjT87vPIKVQd89SgDbRvCvLY3LEZngCuzpFepByP/DudQ2ep1oT6Jd/Wv+ BDz0743uDrz62k6somaLqDldpdhmuE7JYixPIqOwjO9DiTwsuk1jhWFaFDDAFWMVOrrEU5SkaI9vd4YA rdyvBtTXsAi6LKUlExZCxuWEVI2Hqe8uQ29Tmm7DRbhHz0xsdIigKDlt4520f3iP2KdKwAbDlzek7ADI DO6ScYoujmcMqLSg8DnpAU3qx6pkQDe2rDiartJKqxmLZ1zT7ec + 80ayQYsZgCJhJ2c9DFSwKXlLZF0ts4LeGeLkcqXXfdDUhZ9189Fml26oMk3Lj30jTSXLd0k9QMAKr3YE OSeJ1uWBrRoOH8W2Yf2bgqAaOp1MAmk5nejcJFCPMA49gQnN9MdLGw1quzKl0G2j9krvSbhjIpXV4aV3 F /AYJCMD8rWEgK+SGMiKfBcCZBKBLFXDZ3or+l73mr4bM8r+Q5aOS18xhwA21XmECJc0lX4exj+ zIjgmCfJJpjeGFkNpZajdryQNcGZgEJJlqCcdU39HXNlIYkUoVXyf980+ c0jyhWwl29gUXtKHOYKO55BFx8X0S/SIKF29KgLpnKRBVWAEtNMcmXpACkiQsBeKYOuLWuCmV4x4/v06 + wcvlNxlxpFbxMIDIFNfSIj0BTnBzAr7UILqJgAomLW7slVuT5ZVJK2Gnr9DLmjyeE1OZa0Y2uGZofFS0 O0XhHQAMFZnqZAOhYRgF9TMVVSynBxqAGlxXtIqgsnIDmAIXrH0r5LZR ++IwvDqOhQSzNEolk1z2Cq44pbYKYZ/YLNfj+H/B/hYhUUP4CPdmsXNTRBC3UaoAMp4VVIPJq85jYQS+ 9Ev4d77V8QYgoOdUPoYaKPITsHOXxfYUJ17q7f52w11qyuNLoAenFSHyqwHSTtkv1X8JEKD29jF7LfWr fOvZBJb3zprxtfh5KyG69JFDHrHvfM9504euMx +u517uohYUH0/P/MIH6TUwdhy+ LECejZhK8noZIYWWs04PG6PC4QXkXZy52mEMGDHDk9QQbkfbrTIGSMUe4dJUFQuBmsMgMgnVIk2AUxC6 32GPL0xIknUQg4PUjDwCZoZKbfNmPamtiFwGvFwMbqmBPSf0XfNV8ehx +J2u4wZZtuos25990Jz9M6WotibgtAyy5EsGCpMiHpZ3W/EXMG6jiqcYTTdrvr67Ehyeplr4+ 6ygSUmVheLfJGwvtKLLB4TyjQYGUbV4TZNhtRmSrpt38fg9Md69G42U/Ivxe0S+dJ7I2uRTahtCKq+ RZH2F4N6DuZbucFzY7VZVj5lTq8dci4N/ C20AClIhtofa35Smr0b0ya6E0ANgrjHCTwVLbienoD5JUzpGi7AWPCSrqBl7kyYgNvXnuGu6SGZ19f9u MB8WNl2oWFAhu +Ffia+YbSliUWalswS4FSEWH5MpaDlc+WA8GxgpWrB/O8lUiCsv/ wBNGY5h1bQRFXIxeo65mBgJFzPrnDKQuc1nAtmH6ly0xZ8e/XW/ R4o2LYeUFb08sk8q0om3i2caeS4B4wOLxweXR3eSMGAGjKvasvii7Nj30v6iBtlZ8n8ATZesDpfWZdtC fA6OVkrHkPLvYITDGYf2wX6gkN0v2U1D +D/ MhnntQcTN2QqoDNCGrNQsdSD3fOrcFQUnVCDhxL3n4FvtFpQgz2ifYu97XM4XC1QI3tNOA70HIulXTgS sKawZCNJfgnAbef7u9xgvH3 /It1bOAzt84mcub1nY86GxG81Y2i/N2cviYLhFuHsIIqE1uT+rjAKPVjALylM1GkXfsTRO8srjThU2+ Hdv8vXrmJcDDRzaBc5ADKorfDXQ3b2hSHsN10PiiwCXAPSNK0f2I/Fy6v/ 8AkdB3uPstBPL4TvyKqX99i+3SCIbSYXoEncssNwNLcsufiOen3wLCgrcfvUZ/ FVmWjcUO1vwiyYlV6M4BbUC9L1R/EzQ0VePWjtCb3/Ab6ha2z088RzXhaTK/ 1DVxknjK9CS1LlRUkluWsYOPEcAUnySIlnhXdSiQIYeHorRpLXojP5cWF15g0uQU4GbOWfNJxr7G9DwU i2ZlVV +02CNNpY6kVjRpzdDrkw28ch+nJK1eygRLnMVVh77AP6dVSQX2OJ8JOv+gTpb3ktjkf8tH0tB5du6+ mzephegQZhiwno7qMfvqvby92ryK3caACcMV0bqFCa4VIDIoVFiHYVITQT7DCM6k5vZR8i1dHjxPOFiD 08hvZP8Ql68wiv1ez7uH0vP5t /kXHFHOKYsFAWdCX9Ev9meZkRteBxqO/YjqSULxM2eKyxAALGti+ QhWpejjixo0JHhv48EKEsrbLrO3957QkYydmhjooxq1GZS82p4ktwe2tuH9fUbi0unQUo09wn9vlU62J kTOttyG5uSPuCTFgOrdK9bzxHR6IEd +6+ZE2gknph8SM3TTYIyMtM8BBViAVG9oWlXRDfR69azMs+6UIQUBIBWWi0k/DVosT6zH/ rh1bt8aQUlSb2x+VqtrDTWCzW5ZKFkSSPMCuQfYfvh16/IDF4Qhsoh+ FbbFl55kdlK52hIVZMUhOaRmIOizjkHTpNIlljfxqXb8u9ZDK7IBDwf6gYm2/ vfC0Fmfsa4659PfXoSvmibuZHv2M6tr+ 8u1hg4av34mGrNSd7p8phGEFamTPVIMZWhcFFsLMIJc5ydd6Vc9DjAKp7L9TlwlI3xsyjcBNlv3UOkI0 bFmguVNR31MOrLcWsqm6yxH23Veu3iNoP0uLBGq6EDtmvnr1HHjf7mDCr2szu9gquOBy46CV9Bf58Z8i O8fw2yE8go +7/1r1qUw7NEJw5ltOXwHep4fmNLax8Qgmr8j03S16+dGNZWm7MOUJUKlm8/ Zcb4wd4PPiARJxE68wzbq/rDh7R7IV33prqm9kUGR9pUo9207n/1z6QGbHw412Z+W2vZ/ aqWNQb6axNCWjJot+YtDshfzAUBy36bqL3vpw9KM9vguZJmQDtDCCjkLXub8C8PSoTlUxO/ Tj2VMQo0Q3SXV3WziXbmJpqc8XiSoTxMz2s6bL5Y0QnIkZ6ikjStVNQvZE/ JxQXXwc16BYni3pUyzim93mQn+5vur+eOxnv5G80maplg320moW/an7155wto829762o+ i8kiQ5HliiJbFZoucwXGFG7atTAhTFjPBif4j1G7He9w9GsMOYy8U8wmD4MDtQYCBH0VWTQqyhSbF7ur DgPJ04WsjiZdATeMrhZ1LPkfIIvl2ZTIZvkgV95pKSp7G3A9DplzaVeVuC7494reuIJGVqOXWgXV +8HLgIEPeRl26PBIO8PLdbQ+hqDKb9z6jQtJ3wDZxTuSqtx5IbDQzBV3xbeHRHU4gvugcNuDmZyE+ Iw2CKql+C4zeGPa6ik9hzuEVfos27aCt6qzrtQmmw8GYzuSUekJJcLBT23u/ cCB1T4nA4hraQw0HhxrvLXFrGytwkgxE/xGG1uXGGJXgoIn+Uj/gjn4Gh+Lvx6+ Vn1MWtJrc5M8rH8NJyZ+pOyYkIhOTXIAwN1B/U6hbeomXZrI+ yOdn1ZCeNYbLFcFlqSasojdqXXoI4KwJuoM7CMjNhLDx9XmVx3RndKim5KAJFjNnYp93GJ2u1Wg6hhhI fbNXlo0Bl33L2YKnRfQQzMmiVCynSwJhY3pLJJHjoms1lR8AfSpMMEkfrnz6xuNWJeWhHWVGmrv6kjfW rn6Mtk7pjVckG2m5E + YQtF8ogJHTGfWTyHnSPzFTmYnUqXU7UJftKIc804oM71CnoIJ90hmZFsYhRNNbzUNWoQ9LAnXcB0YRAo MDHnut /H8Gcjv8kNNTGTZ251/nwbSTg6U8GJSm6ipTCro39771Mkkhm632JHYN/PZxnCThUg/ ebRBgfs6E1Dio44Wbv5D2ytmCz5AMk5YGiyd0lvPZqGoGihAcnUcgPpedeLIPrcBiBvbXkxWMAAViOAD yAYVmVkYhckHeocHoGHyMQCyk5 /TP0u3gusf2fQhOpJQAMMBbAu6jjRZTU4/ l0IHSIT76sgz5At4DtE7Ey7ZU7wrXm5hNFWzLdMJSkKFMMJFObX370fPCbAsNjtCpkdwC0ru19eeX2PW dgDSsJHf2VMg779i2pk0wh31GQGcg5Bc4CbMOiHZUozLcUIsoT9u16aNreDivWGNcSVYExGysyEhhHWS 69hM3lJINkX /D7tGIcCJZPn1OW064Tr02Jv1hxw3k2rpZhGqla0yMT7fU1YpAhkuHOrkWNEeYLrhWIXf0UPszp+ zeMLi+0IXjfKvUMiPkuF6/ LXyW0bXUjCvX7zUhtraSrFg2GQ2CDjUnQz4alb4CyrpmmskjHZY7pWdDVruuPWmF0+ 01NOFghZNnau0J5xoXma56YWDqC9eWDbCuQDblUmfn2Ur6eTIIUYbW207K7c/gq+ cXZGc2W2d9nLdufozwNJQDUfYjQO1paIna6UbRTb/ 7RqaeyUrYYS19LnOoOXNCyPpTxAnGWK5LQHDShgU5Rbm1H1gXEOjD39Pna9yLJqHIIywRZN6KTLdtcs6 5Sr6WIlVeMyxVeeSch4167k4msPyNJ7QEdtlijseAiYIff0uy3nLYngerC2V67Kzd +Mmuu6vYeW0wKiEp+4RbOgQmrjTvRqkyqCJUpFm9rBntlXzSrrVnpx/Z/ fRIqsdL9ltw2XcO20kHD84BoY5sCAYlzyY5uNsnVCXpqLmdEubSBODGp6GkTbcev6e7XlccRNxULNBlY spjcMbBIE5wDQThKG063hlbDVTcBSmZ9T /0PzqOcsicm21bxOZxXieh6FQBgFRnBUAENq0zlRPQ6Z9laQltSDUmldzebs0Od0kh6klbx74z20/w5V +mDa2U2E8CkpsGxlicq3MuuquVSTj8+Z2Vmro/E3x//gOP4YYmnTM+F7GQoW6DOLtXaoyYJd6Mt+ HrmVJmh+hOswxOm5gsNtBA3ADSgUSs5ndc+EukshhrRvjPx1/wBUubXf1rjF/ dD4zo5d6qv7ER9PfYKfJFXG0ZO0C2sV8JffvzkqeGPGWFzyuBMOqJbC+6ui/EbSPFvxutbrSr/ yUjB7JzQ5x8bYGMsqLZ3+zD1ThFbF6XWH6el/0tyV4RuJ3i/ WFcB62ZpGvti6jkmdCpViYpvTn2SJUfuxRGML5sSnBCM6I1Y7jsY8U8P8Vbl7meqLAmx8sV08Fd3/ b0MxPbh0drcLDjo3mLiJFXtMRP/QWAhb8DdmAwz/eXRfx+eOP2T/F/x9y7rl5W/ qQt3TO7be5PP1jsuxPSpjWBBYOcw741AaHWXjVAzvS4g+ SQAqi76g86w5DGYNGtvjK78b7knEEYLYtfYPjqSZSRXYbCBM1yKGZ/MGKNzH9Z+ TOfIbGeIFyVX7FqmVPVvYDP9yYKuRmCgB0xIskJrFyWER36VDoTVR+MPix/wSQ+ FRyJLuD9LyaXJgc67ljQ7sa05+ XyeKThrLJPDDi1j4IpodAyX1pg83y1D6EqhV7SJ10to61WLwSqGvT7RmZWG7udttfOpg9qr5ovqwWlh4 lK5qbWErBlxJsunTYBpeAp8xJn3q5LrqwNgbv79Pfg2x1OTb + LF45G6sTaS21hxNi4vmvkmNc4pmzO9tcMZGJ8uyEZOysdpZePsMZISVQ4otDiZ3aU7Z8C3p2nkgjuis2 4FQqetBceHvmnWqjeavzuLpchgZEY0U8YZu1J /LRm8qxLd+ 3632SwPiaYy4asBZR8AGxqi2w7JqfhXQfB4yrg9J1BWESohyg9cC36esWlKfL1uoNmCvwfBsVVdT4G4a /nCkiT1Z+WNE06GT3QEJxmnWNZ6tBO3ZwwhVx492F/ 8b5p9DrfqaGpSr6E5FzW21cjGe1b8zKo02vil6FmUkjl8kU0MburkEsHcQQ5kzh9uft/Km+ p7zi3ugAKx2NnUdSVcrsngVSOzx+q5CayczKUSlXGH77901qn2gqcm5m+HvgL8Y/GWhT+NNG+HHiN/ Yncj2fcS9b4EVAs57z1sZB3hb6qf6x6foEkkHRkNSFyuhW3rU1pmeswhjJXaNwBFE6tkgZkT3PWsnI3q ykv6Hc1hhfiHn +1cwE0Kq39e4Me0hf4irMJW4n4zOcWsUS1TaqC8NOvRs0fByA92GCw8gxglL+j52S7wz8p2kqY/ lZOhVQze8QCuQJ/Cfh+bhXozmlh2PbqablO9nnfiWw5+ vbyWKqTjGhIUmkugVCNYFNxmbiIwvnRFCzBjtF8J4I/ BNP7m5gz8phNg3k0m0necKgLVqiFrOVdedhNwtmkQLfWKc0vsnG457pFnxhAEnetiBBxqYyYSs4pkSrs lFz3WlhXVMPepvLy4t2vs8ifAMzyuymhfZaFv7LQWn8J9IZvm9z7W5gCsIdhPlyuKdELFOPvYqpYMmnf P1Me0kkg97ixmToH3955hP2NRfzT9i2mWlXuksNW8Miy1RtA+ qyq1m3UZHar7S7umZtF2mMei86w2ZCgyctdL0JFrMYgcod5N+KvGuseNodEfwrc/ v6nLVJM9Sspui4etc/vM5ng7ldpnj1xU1rlcU4Ng7o5kKAzVSuFyfih9YiXHp/ gNwEQei0OvPljcnpa5mzrokgcONu4Zcvp2FqRlcmMaasO3cGUQ1fx9s2vaUg5lhXYAQyy2y9rys7yfrk / lTr0KXyIcogtE9T4t3yeVqgpaTQxipqMSmbc96EewJp7faaLxLJwX2hMqFsv2YiT6pKdjRuHwo4l9Xtr g5gfsaHx96ttU5Zmzap9v6KPKLYQgJKlHuSKVqIiDTTkq4aopXDqBhrEqdQVwVRAtqhWYfg3x /flso5xz3Pdr8h1GP7avR3kzbYPqhzxQImRuv7ounXWZcmWVRdBQCVvSraUNe6/gjRbfR/F/gr4i+ PpQ1QwQQLr8fTd9Jq/RWlH7terrSa4cbaSMCWW10+4zlL2W7ommLudmrWOk9pzwgSortXkhwS+ bsaFcsX2G1bFhPS39y7akyO5aTcTRg4+m2EU9a8vnHoxgfaREkJg5vlQN7VSR0nNgSelKcs9Q5Z/ YFNo6X3Zoo1/wivhHw/vRAgxrcC0h2waadHGznxuAAx0UjrNrDuCD+B0ftegQmmTv0RncdenfvwHroy3 /LKmnJkRG8lYh+kmu4i75ur240nxskbCkQrFZaywPKysx6UYM0b2+ bCqOqhQXJ341tIJ4bxG0oPN0f91X0JN7Ut8fZNLq+HPGVzpGjeE/Qwfpx9I7x4Oa31ksg9dEq6n9OJ/ 8DtkNrFtDSjARG9fd1Z5eqHgwQ5igKXQoiJ4jqNZSKpe6WkXtqRL512C+ Mthm3p0TAoyc61UuvdZ5oOG3maoiN5YYxC0of+dvfc3ko0Jih/HGoTzf3b50FsrD+ S0GiWG6cY8h7246N2VsXnbAU+u4zGzV7ysn4F/GJYL4umgWjkrjp+ gJO2F3onf03MMCTIy71pQ99dyYVvSWZlKCbE8uta1JjWh/mrUD2bm+ C74n5t8qlSmX5KV0aGat9fn3aDu8ZJa07ikx2wQrXUi80Ieo6IhEoqvDh1M3vKern2mDeiH5WdH728ES CVgs4tJ3n9Vj08KxlUJxdnHtoV0lUHP3GkCuTaZOG5frNllllU53eA169MlrYayo75ARc8oPfrV /HvxM1/hd325Q2+c8upE0VEtwee2Tjcnmc+eJFVIPtEaOy+ dPcG35IrWVNDiZVHn0MF5BfJp6Zs0Y5ECrV3nn/Jz2kMordPMK20VLc1rB/jpsfS62b54xmDkSl7H7W+ y2wQ87PC6c/7qY0g5NMgyN9egVUR7W/0SS8im05SwUud8i+ RquZYemgCtrDQBl6ad33UWDjSvGA8lHoZDETBKSr1Y/WY2FfaTcX6PK7vbr3S8v/Rj4X/ s8fPazk36Pc4Xk4gcD2UcwedEUZY7Cy3KBK0fsorXaO1xpzfn6gChdwCy3iwj5sGSlwR6iuXuJOauAp1 q0 +fzDGJU/s5NgDnSAgi4fPlkr/CD0iwsL1iZQRw0Q0TzCZWYOXsXD4+kqtKlJ/G9hGjr9vhGdwncC/ g2VLihBBndTkozyJuQYo7B+xt+lFcwl2eeL+K/vatxwTvAcjciZ2FyKKhYq0PQl5ecVu+ 41ZdxMDmohNf3hjqotP/bXvaobSoMqqtAEE8XfbIbz16riTp+XTv2qwjM1a9+mzx5LDCFBBXR6n/ 6nx8YF9BubZ3Xem0wU5aYH0X4y9w62eWOCy3e/h3xF41+JUd1Ul0e/ dAZKz5gYe1BpFlyUXq5rCMZNGGlnn5rzI12UEcxebZGAkZoo93kyurezf69rOJ89uhuP5WzuzlHIg0Pc I9xMb + 6ERIMbBTcjUdzScYYJLDGVjoIzkbwPeZRoEcih1zPsjvDkuJSsnQ8vA9Sy2x1iCu1Cat7m8aqI07KgtQ hiLCxM6X0yTxJTShrDU1fhgEEgEyUZP4Tm6Zyp95QKvMf +9k5JRS+U/aKWL081N80HPBTsxS1+ 4LhjrvWBcnnbjYLK2BHjAjNh8LT1meCdZGz8DVIzS0H9y8GpdU18s/u65B3z8hGgyEXrd++ cWdoX9JhlHXSwUMNnAQyWbE1M244JdehWFHjRxGmG2TPBEhfvYZNVJgNJ/ TAe35iLCMyIrSjFhvrr460T/tJtZ/ Be1mxhUjClOz1goPBAmqDSfF0rBYXRIM7dR9eTeHySMIhknTmjMIQJUEwviMPLAw4ukn06qui5AgZbfr styHscHIgj09uUJbbyHDHdO2Zzn4j9D5rcKJOzXnZ4QmRjdMS4mG5inj3pv95LygPOegf2UfLGh9X6Mu US / XUfX4mjftXlkgtzrtEsQEEVknxrlN7OBLjyOMtxgTHkIvQHVr4ODlk1sP4hm8kTRaJ4N3ahSL41bA5kM WKHEa6ZtYj44ND + ONrsYJJsqC4cy8KXqgeWGKI45hywVN9677hjU0tYeoaNjPrZqOUrG3yrcR0hEtpy7OMbWhafdgai5jt1 wiTlt1itMFxQuZvOPf +XuVtjeAjmT7ttjx03IPMe/qxlFRAhTXXRUJyaMhT3WGXdTCZyqgLGQFhLMqlsd5KkaIeBXYp+ cZWVOFAKLh1/arK4wXIfW6AVU0TxPA+ PyN3371LJ107LFkS48rZLc9fqSFMIknxCnQzj9yVyWYvbdZ478y0+30jSri+iAKFrocBxFPMM6YhqzK/ DOHElq1oTmDU0A2zDEkLEw+bY3gXyl0sydt5SuCIwPvcpYpUJ1Ogu+ 26X1C69E2GalzHjHaCGkMnrJS4EGaezRTtNlqVFwbYiSobyvXp7tJIuFZmFZXVXlHmszFOlGAyPjDWMD rZILKdFfOvcakd27TA5O5iXJpIKk5otdF8UMrJ9bcIiNBozSs3ikNMg6G6HwAOU3AtwnHJIQSSWZMLG8 RFAkgOKSKFr6FT MKxrqlaG64TVz4noDKyG498u2XRr2j9VJQHTUYkXI0mqa+b2s9xNB0i/ tdk9QzDZLNHIrZrUrySn4mdrU7cgRvSFHe4g5GtlutMbkm8hiDpkjvl3ITmUbiigxGbqjxYFtugxsyMG xpFVTu0jEYUHZC0 +pvTan20KpSIVATl7PSM04njYqrTUnnZOSqiuLunxTn5UK4pGwU6PlB/BOteHtTvG0+ J21w4d1apUUB9aWa1UTaPQIWeW0E1B0TlUz9xsZemxmf5Q9IZE1jEZr0801Uw6ALOHU8QiISVGwyy528 VuT1WH4ojRdT9qN7J8P93hCfz +ZDGxED+S3Lb1Zphh6gDiT0vJuszmPXbYi3Bg80r5LoFFC6+ iMLzOENQKh2f5qSd5mscsH6gjPOrttSpUlJqQhjBpOegRYnHmcc8OpdEKuhDEHtSN5kzMwnLeBgguDga JP2KO0dZQQIs +nIOcgHf6fxVJ9rTfW8K6YIUZRbrFF6OxykI5ldIlPo5qXRXmsAlvUNiNSkywF4oqPg+gFy9rMi2z+ Q91ly7sw80o+4IzCX6zTBisZEvbjjSsNuVMd4EHN7ko3n8EY1rpZ+457a8ew5NcBoQ/ DqxmsmqEIbvw9swsuhBVOcMEHuX11puQhP0X/oRf59tlIFU6/R5ki5GFPpjeTz/ gLt30kzqCggCSDikMr0wKNes4snzOjGc5wIn3CzG39j2BePIUlcedtQfLLeA0ugPBEB3PLGulQqdhCij qRpGpcRldwjllJ + iP9WjicX6Ijp1h66256BCoEklMWmGWJjTprmasOUW2295MpqQvlOCRfy8tQgz6iXQlQGBqVFszmOSLms pbW +bm8pPvbWaoplaj0wZLhg4mCdzSLtg6lLPHfsVypZcQr3yjErrHp07sAsc+ nN3vw0IKdSG4sVGfiB7aFz0H2qxQraYMVFyLyfxOaQemttkt77a0BMTpnGwvr8ylIoMY/ rU5roIkIXbkflHuT1I2mOheWIvljXGXnglhuuzlyqBPMkpTjo8VgYm/JcNqr2vpFu2/kJeY8oys+ GIVeeOK+werDIhX2r7ZKSGKGkhQxzNeIXNjUUAjHwM4x+D1xE959pvhPQbR3fTr+jNx4ChpfQaWe/ s2dAyTSExXLW8XdB0fO1w3J9a7Jie1nwvKgXpebhw5rz2Jpp7I6zhQ585dhA1JiPkID05oKx1TXnkWJZ hOWjfE5eEoaY8qnLobz2fRfLc5YC6b0FRWBOzNpupRlC8ej0kfeqt4ICA1Dj3gbV1U83W7Q7RPUaEUpF uoFVZvNkRO 1+IV/oXjL4g+ A3mGkvRQWZd3CjNkrZnce2Pp90TyQY1n6iw4AOOdBhMgy27FkquVGLpDfU6HOnMlcz8gHdJ/AAKl/ lsO4BsSHG2ALiY5DJtnFHN6jqgfeCuU4QlQcPYOj11zAZwxEFLuxsQvb+IeJtR0+ taawd61hvf0uzc4qrwtK5M0UWGfIyLZbrNkgyFqB3uywfzQgSrU2tuxkggbq2di8wQYogBKuzA0U35Vs 5E0nUXZ5pRWTkJEeuEpO4IUFnDraTwevUDfHi95BS089A4gR4zoXe9k /DTw/Y+M5jVI0ksyP71UAJvjGVjJiv6epmX5nkjK2kMjF2xjSPPTafROKEwugBLGHO4fr19ofQ/ eYuln6u1EiZgQmiiO92V3mI0jjhnpthye5oSXxGzr6qznJGi1p5ngGud0nJHT8p687F9wvtGgftMkfie /9OYQOxkrM8Dh2HmU46xjPXme5oNWIdWa1FZwNfmxpKY2wXSdZInVzy4zAKm30/ CUROjdi2LGiiR0HtoGDko5f+ fbc1cihR4CvVxZbSkuGDHQNhFCIkr8Kyn3MVslhcHSRm2Rm0zb0uCMYbn0N3YwXNteyyz6VIRiux7vXy 9q5Xl1Vz9YEWMWdZDH4w0HsAZFbhxZgZs1EQKEmuSDvwfW4Vhe2Jsk +jdb+Duq6/NsLNR0XNvJWFcSf7JWOS/ ewni9kEF4yvVq3wkjwUOZPqMWYkKCRclXuM5PDRJjAqBSR6V7L0RwU/8Awlms+JEZo7M8JC1Fx+ OoqK6ogyoCJS1cYmVK3ixtk2yjMRc0UkH21i0FuAmLXtsPfs6xptx64SeTxm51QrN04Iv5WqMImhootm rsO4NALQ6nY803V3JrbaphWM /bw9jrhHw9KWiKpWSkrmz2JZdMon6r42ZJDnYO3CF2XlDVa+ 97YyXmT542wnRzmCCC1ihdFhArDJPmhCM8SMLzmSpe1JCgECCyOHa2blMuHqbmN0uuU8Nb0ca9Evhmsl HUJXIwE4xxtuMzhaRXgqTllUVum1YYqtW4V +zjr/yM3g9p7u5j/hU0mqgf+nt09u6A50MQ+ j0r9UQbYwfmEBq7aUIKQTQtzCw7Y6Dn2kxBG6OqDQ7gjYMQLzC8jmdkwxfmW/ N8oAHm8xX7XuzN27Y72AdXfcC6igIjdpAuTHMfQPyl7U9SoMStVWfuaO1vPXPVw/qe8G3SuCZojc/jbw /6bfnS1MSBBoncA8MR1+JexnRnFft78BseFufw6S7o2MvjmtqTJ35R6phVsj83fe3w+ WWbkgfAbka157dIWhru+ BUAUAGYtMLoostjVG9qJaqe1lQYJTJGXMjgn1rjrqDsyus5YdFOUKHy0Bix6pJq2NdrUXIQkWH7AvqSE 6B36HHZsyLxpuPKG5SMFfl5ZvgjBVyMcqv6luo4E7xyq5Lyajhx5EIxEUjYDssyU4qyd6rjv1pfdH2eH i /6bTVBP4WxO9F1Bbx8r/s+tBiVmhMHEWOVs2flfagcodMykM4+ePiDp/i2aNr/ ACZ1xe4CIBs5V8eceiRVHhK30CgXgkQDDldxxEk24vhrp7jZTp9LH567a2YxHiH/+ FZ9ReYoMHxS0cFiYYdivhm2JVfScX/AsGomzkurFIZrvfqMNiIdGntBZxPpMWnGcJG/ 74P6w0w2kuJ0klDSj93k1Kv7xjiePGqncmYA9gsO8Il13p/1BnvLSyicX+hJwpoi6anP2Rfyd+ wgFAslHddCrePnnkHJA2T/Y2yn41iWUgY6JYBJgB7Bw2YIGmlPFaPG2nl/XT2vadNyUZt6pPBpMLv/ awAw4mIoU5PrIB57NmGbeiouhF56Ow7qyJylsgfujz0m3M3qoxjz2iDEMmCBd9owPwPw2FfowqEzePpn 0ivQKKGz692W +BGJwqrWrtSd9w+JsKqdVaSw6fGJ8lLM2rog5L3EtkWSbh4+TqR3j0iZXEVWCnjjgl92+JHw7n+ LfjfUvB/ mIQuf8hxII74lo0cLsPkemvGuk6K7UQmSuYSC4t1u53XoTY6ufkHSUdf7FarSxcC9gGRAKj7N7C5npyf d22i /2ro1/dwRNPZ/ Jke67YWDQni6GWauQ8nPXodQNyiHHvOXHVxAoXhPze0qnozZBAd47psXE4UmmzhMxJOxiO5Uk7yl1xuV KAIZrSfG3wjvmiycVtT1xqpT0mnikyGpXQdC5H9hlRxdJY9A7Y0tjTjTXpuuJfCyhbeB3HMpLK9C7uSF rJBC3KwWlpZaVe4yJUhoxu0T038G4eMkiRbF +vaLcRazokfimUvo+hvAEQOowQ6KIIXJr2siq84job5Gn9HzN3n52VM5VLEus/uvE+l+ IqWdZUmP5m6e75P6ku3kfQ3lyy0rajGmuEWFOmxTwMmK7f5atUZl31cOBuHTDa4J5cSmnjcsJvKM8N0X ZJ /ItLnS/q2asDHiCnqLcyCi2qWE4PQWtROrDKY1QzRZXiCqmdiZ6B3403NGipxzBjg5ws8+u1/ OsJrE6VotspavYIyAgRhJ48kWZUckGxj5BzTAtzh0+ nhr4l7q0KzcZmRq2Oqt5syWcTymz7uPOoZH9LbWzlQPAr4I1MnsZ18J2pnOFu0dCyeK4R5Jit373Vsif /5CEBaVcuxvnuC5WwKrT6+ FFYxhxdk6rhSaLlTSMPHidvzG1Img29KDkhRCqtJ2qRyMn583gkJB2etpdMGWidjO7Wr/ decXotCY6IZVPZnOJZvykSrkwN3kTj0LQzNaAx63gtgIdvgIkMa7QvoJF+7+ e7zN01hFP3xSsIo5pzopwmU4TBXvj4zw59dH02e9VvP3bGF+ fqoWtZ0ZcbnjHMA1rOD9K0r6ItgXerhdQkFh94r4+JeJ/ Fr7mk1gxd4N8giGFWNGGhy9AYllnvPpIxiLZxcLR0AzwZueYm5Jk40AnS5uvJ/DVvaR+ MGBbU00nK7hd1nzsvwNTjICUtUPMwvJAmXHH7wMAJUA378L+d32tLKko9PqV5+7vta+xXP2/UxqM/8AZ +wZOdpm0vkrHyENhkotkG6bCCYfb19F4EX3qbxi08nnzb4MdNRY5HESly83i8n0p+ LkYwzhe9bOankfxtwC/vjbrITMIUliKCS+ ksNP32TzgXsFyyydrupln3748f4fw1Qj3zkWYBQLLKuBe9jQj4e6G8whb0evwq57B9poGnjU/ L2aOzh703sJU031586zwLFO1V4coqZcpCNU4ij4MnYG5kCSbQ3v60YqFBOZAOjXYLj5B3r/ ET97COrbMTe3Am50t5PviQjlMdbRh7aZ60qnQEeAgOblcqE3uLeMmW7rQiW9iVmev1e4YpptNaJeHt9F Nhb2xFuwnWthgDqB8CcBLC9XsVfOQ0kVuWIIVsNdG3P2MbGIUQoqPvNEDbgih2UmkwnYYDX4N1J8HyYB ttanTeYdo8vh2sgdM /9tKOwhwgZQxrwz7p6lNp12ykeP2emU8VNtKtDUIfmI3hLSX9zbxRt3K8TMgaxUr7dQa+I4/ MelsUbHJWjZYNr5FyzFUCZFPAWBJsDhVuUIEuMM1m8XjyV47h7xERB7LfqkdOtietWdg1reZYY1Pfy68 wfoJlL9wHNGGBvloJNw64q11gnpRiuPejvkLhMdnj4Q7Ji /j4OMLTnhUCXOI1mxveM+fwtpwHc5xK6jP2TrqaDIV9F4e0YF1D62Y1sbY6vi0+ 5iNDsOmVJgHG76fUYpJ8eFKOzCkZWPtwTVf0YL24XW5sd12wEH7izj9mqq13vlqvNnRHX1abUw2GhTu4 yA00wMn73v91Jc61QIr /jCdPpuLbpgqTvW8t9Nxr9tRcblB5puK4MgSC8txnTDU7Nj4wkooU1uX7KQDui8eZTywFKtB/ oVAF0gD0VVaD8TZpOCZGmD5zr5uneEhnHBYGvmyeQ7nNb6sVblH+1rDEGYPMfW8xnIGcw4r2pj/ uDX5Qm2q1tu8BtnySOf2ttRRmXbfUOFhJaj4mdnjJvpPWOA6spipvnEj6m/AIQ8R+ LaiAp6ipR8j0lH5likT+ agliSj9NhjgRkZ4osJ7DtREpo44pUs1udFAh8GacHvkuqiLum2cIGsVfAauaW8ZfHOaGCo38uKJPzPeX yxsgdkbUvJer8HYy5oo4nT2GtJ +9j0+ 54H5hJwMy47Fc8sP3qO6kNh5V0zWMhpJCXz3qatD3T7mNps3XVRpfawwv9oK1KhD5eiesO0xSOhrZC70 9dmeHjKbHpsw4b0upUevGIam2WQTdPtOAjJt /DiwabWrW3b9auT2VbDdYWxP+ j1qiZlSow5of9nb8z4LzKl4td1p1QZCbbBV5shqQW99mB7pbTgC6umVioGeB/ KxsnZdlmE9a0w9dcY6TBI5mpPM4fw6Uacch2a9yoPQ317hjpNoVVc4odvKVXVEKPtmSdobLcG928Vfud 4TQghBOZfActJ4nmwlg94hFcS +5fw3a59/ Iq7cWsWrdOWjHvWq1zmdguVoaeUxKbnjl1l2Dn1lpuhzvvawuruevp7048rZdTGsAT7MjGxbhAfLioBE 9TQY0d0 +bRbZ1fR11AyBLooVTvwGkkxrDx3JkUiCCa3QqD2W9pADwSjnObahE/ Sf2XaaoSO98ecPjGoMiUxGIdg6gbkXPUv7WJqhx1Sz8nUusJqx4s8IQ3ffCZTxY5un7Y2gL6w7uVqi7b AGIG9OwyHfAWy9rDTBhpvk4hSCurogGrp7j4lHF75HlOM5lk5qC6Urn6u801hdHqBpypwImdZNCAFWf0 3R1E8c5IYSLcnSytaT1l1s8rg9ej5r3aO6jsLmhGpegtq aNQBkgAlBptZReweD9xcrgIEg4KOfmdxS9oU9z2njg0d7m+ g40xwiGVD8zpPuyCq3ptibMLm8hpV04DY7mgM9SWtgKY7e/ AEy6u9gpz00DCgC3dXdPFjC9LINjQP9MLP8U3mb15kRr34HS3FKweQ846WB1zC4zf7xHIN2zb9ackk+ FLS7Jmdq0SHfpOmoGr2xghgCC69/ajTGuFyEdZcfhu048hK/cN93c0OZ8dPmDh+oVsp3O3jU/P5n+ CU6xy1vYV/DXY5Aft+ OcuoB69Ivdhdj75onARMOLPU0NCnuqLV4ZI9O1RBV8zVIFPKUPu0knqc12Ie8Nui9A5EnSitRVQsbK46 YTvuDACfmKKRAVZF9grdXu1iIn5yO62s9sgb8H709p4xxcb07dvf0ADiHFqIE4OvxOdSOMNiRzybzpUT pLOLoqmbtLPYOWzhhX3greBrZ6NO3wW6umIJMUzWFHIM80Pta2ry +mhWlgE1WGCkGmc6sg7ZOwDbf5SjYN7ZA8isVbylv5XcBi+TL04UPH2y5+ 2sWAl1BIYUovrFwRrOv2DYW8wqEOtMhhamFxshYJTOtOsa2sPQtG9CZxKoPNAWHz2zol80blqvzZxFGD PXGRyM5 +6LrwzZLZ3jAdHaGY1nghNEaUIgKroSkXDOulmR7Yeog6s/AB2v/pR9x317ysqqZ7f/AFqRm/ b8z9FzJhMmZK3z7aUAmrY5/aKyw86u+x2d2j/ GCDStFTPR1GurDO7C68Zs6VPQeYnvjTmdHe9cCNmSSFGwf2oLlyLCJUYTwhcDrpPTfJs6iulkkBjWTO3 jCU57IHVneSlVGwutbtuqDA64 /G23IbT8Lq2wBou4e3rYyTjD1WFG5iREA2wtQ5iXgO1iEzLFriA3KcWtEgz/nmt+ H7kW76L26F2fJHW3Z1O03iZ2BjpbHyNXk6kNr0hnK4bYShTVn76/ fb8G5LGcmmX5neFyJNQz59Niw7NVr1568SD9Js38lGFWV+ s7ujmxR2odMSIsd1O00jumFzVjyeeEkU4t0EOnYELj2jnCWSUTKN4XJgSjpJKeoBQbgv1ICz59OhwEMY bRxDLukpeA6P81rbDT0X0dWT77sAkrJMry3McP5Xfo3HvRIIvK3W8 +hH81UXBdLRnsqTXKiEcH5VKnLBsqfxmb4jtAYx3yiOd21iYFrOtysY0vU0R7+ t3gsCgaNQ7ScRQYnFGbfEqf69ArOXfXEDSOXPMKP85+exS36aSRCqkMS+AM+ hGDTvi2MwAG9k0udCSQJmy8LzvwlxBhEzZj1sllbYKNW1e58Ae6yXKDNcSMsb5CTLEkblCYmTqEbJ5T5 ugnqn2pNtkI9 +75CUIyduW/zun6b9/Wh8adSE1+ diZaF7kl7dTLGjPHEhTVXVDKklzsLs7aIjggs6UpqYmQlCTCSG4BxcmGA7PffW/BGT4/ rvxChsIlKzBpdx+VAjZw3TStwS5jqbbA4ATp+ V617ODwdjLHjmjuKQpuyUONvUPMX2VxQoDXiqSY1MJadayc6Q/n+ KeyGnlSBuaMntra47si51TS0A2cnXMid6udvYS6nIttrCSHG4bb1DWTZ9WHa3apaTj2fyuw8i5hm4jZ2 Lyl5R2FWS0cqAIWMBquAAqKGE8tlBqqqwY1V7fhNSdhsD7d9MQTzlaYXEuq4NYEgFtHNQqpguooSnoMZ 7vzVeZt ysNoD/MdsYX7S4jkWITs5EHqWl6tgKlv5oLU916z/Lr3lhvo5C3xopw4Mj57/ Alus4SQeT8z7GtPj0cgox8RVfliWr38BtIk5Y44gWoG1DrmMCDxrL2A6NpcgIxLTD7wcXdo6PfzZxHkH npWArLVZA9ZwYh0r / xnzxyGF1pVSYqgAVlZe0SIeerXlQODy4Wzt9vIXGFDv8ZWm2sjE4BSWyKjTeoQt0q1K7d7C0r7k8j4M2 1p3 /U5xdUjk4MGEURvk2cosu841/Obct8Y4mmpALgY5rjlXTLBGIjGrF8tjBkNIiywWabezM86+3pXp67p+ EaNWNj244ytAv/ II6JxAub2E9uYY0C2OaNOmMGTDkL9KwSK1apiIyAeAY1NzGgGrM8AB2cTXe0SIST6vOjkf/ WLiqew9h8A1V76qj+1/jkEnFC2g5G+6t5rTp+ H26V3OS3wBD5b0lwrqJt60VvoQkyEVSQBWugkvs3tOpfqHOq6yAsqbzMRfpPXYkDUsvbftslTYchN+ 3uj80nyPVohjAjwKAHJSwvtwxMBusnHHMXXTp4337qVYxJC5RLO80sF7PN5yNzu4Zt7zgQ7/Q5pO/ s38jk3Gbw/SEcI7lcaVep4iBN6WZD3luFB7Wic/XjvuFH10bJ2+ aiaigeEVWzGIihWYwXnKhi1k32OWMn16WG1qmKVnROERHxwFmgWqoHoPkGDCbnPBMMb6itr0t59cYVz4 qKj9zqhxGQ5QmO9bXj8TRRvLLBRbZMREuE6s1Zo2Hiqup20a8tNgsj +91a2+bf95Gp2n29Y+Ef0wOqXK0BS/QlFypCPdc9XsXK5yOWZxCpfm26X+T1xSHVBjiGtoJNwt9+/4JB /B+T4efsu+DL2ZFW+3IBjqqBut9JkpCZ8qk3QKCZDxBoF0riTEyKwDrjKJmz9j/ EV2T8mef8qO71GT8CG1iFpOs2CsZnIugyUrayWsocn3c0XcziThRnM814YeyS4GRFi73/ pG4BbAKPh33N+SVMRqiAH3VsqT75HqcYzljfSxIO6AFOiZWYGMHsSObSCk1zw6MwKmpgLxMK2nR8omv+ znqg5SE2HOcWcm3normhNheq+ PP8xPO64Lxn83zCHgvaDuqvlgeszcwG32R1SApKLhhhA34g5DG66n8IJNPCKvdqtMNNRZJTCh8MXPyD4 gYKvEKlmpEhPYFLKjIuzxjNYZIcRitF4hc19nYE11jHpRY ++g4qqnsU0i8oZKewa8a5/zJrIxHIuSHLDamYzuFGUlhj4K2lnAs9FIE9GEC+fBbWNDGrp2uQs+ dzROQN3kcDl0rLk6h9Z+SRngjirzxAYLqKAowMoJJPKnLBc/KVkj6o6QVCdMyd8Zgjp+Xfvv+ Vw2ooEXfkmeg2yx92xav6PpaNhnWQuo1uBcjsE8WraxxFpdqyYN62QPGwYgwgwes6P9RwxoxYBQD8uHx sltB5uKaew5E3VrnM7zEEAOTKPwRWPl56azsFjKcC1 /Pkdya+yxXRwYsa8BYlybyW3hhHlZKTuZ9Oue2hJVKltK33KHfXZwmBdtfp/ FVz3OV1rD3uwy0dJiERq91xtc6nos/8AM/ QL0fEZKL5xeqzynIv7WISYrGgudh8MUBDQpagX8sd2kg6it+ BtEvjQ892OyPrlhw786L7o59VTynY2VsApiJGEn4xR4jdYbpHU3p7SjQzGWt7y2odaioPzVIwAn9HFQK sA6wURQoE1pGEy0 /P+BopiiOk9mp9lsuAUOdyoZewsvtt5f2qg9vUGIF++5tlilHGupSqZ1z76XZmKWH9o9sHF0Yz/Ro/ NwHzWbKmvSEAdP3YaxqK/Ztdp/ E7uatApRdZ2Be5UQA2SvhA0G38eVzqu5YdsAiZzbxp1nHFARQJFc0vsZM8QNrbksHE3WEjU2u+ LFGGncpszbIdUP2YMwZhdRvjU0hStqW/dGcDcCoAH8/H/SHJT9O3BiwVsDkrRSgdWbocyIsnjlBQ/ 7pTBERssIqpdjML9Vyvd7PFNZwfjqyTOjzYvMSe6ImarV7357+ 2qpp4Q71AdkbZN3jyhakme7x7e3l2ehjoc6ujdFRFmPA9ik1jqQjHkXlF98PlvD5AkUOpXFl25OgAu3g I2PuRQiJd + XyqXLiruQtegc0zQGAxP6mQxWgoDnZmnlbOdvDD173wOBBaCebuupa6yXNTZDWgkyTNAc546V47W0qFJ S04UmARtXB2NkR70XnJ6k95B2dp83f7s4MWT5TnCWlDI8nS +v2iiZ9ptH31+jHRJLRLTTtZeTsklbTqfOuo5/Q3drIry61jfes/ 4opvbOzsUso5iu2bqwUXDzifvFxUAt2kdAOiiM1HYH9GCTBu4YejiLzSCXLfYkIraBgBFj2uIPUhMG3Q J6MPWJnHYNLFCX +icTLktjBUNCuY6XYP1WZdHDTXP084ST0WXMdcst0WrTert11u9mJgL2XHvOjBEXF/ RVDKp5vcAFLvWJXRjEZm7Mf7g/rNhqYtg5Kx87aUbcEmd4qmCb55xe0Z1D+zl/ i0jvFkG7b3nXqELDC7kxwGbLHiMir9Oe/ Jwax8oMKJwa4ehgmPviemWC0PnAfViqcbCVCR8RRtDBJTt13cFMnnSWpNJqYgXfp1I04oMCJBTMZYQES XBJrCqzskBvlb5u0J +LP7L0/ pKxHI6bgwmuOWwQyVJAVhGkpuqaG5sIsp0xpaEmwCSoJccqtdY7J40NnvWcY1DvWpXYJImgwvMi0eCA5 Stb2Gnykh433P5qukioBoppDlpKNprtHVzGdbXUOc99q35AILgvS8HZ4R3p0 /t9JeiyNupFfGTsmJT1sKATHqmQAjNBV9SoS3K1+cbv7r3Nh4B+ Nx3EWgnUqgOZkgL1ccDlOcHUCl3fR3MRQ34+ 4U1TeXZW3UzWvFiREGeYtmmxKLrdLTneAbvdKmpiO6sszzrY8mfWf0RvA+ s9VRj16KEAcqXmNb4npdGGJk6X2q4mVEz3yr0g29/ nNbDB60In1XmjjBTfuDTsi26PxKy8XhLpFoYXLSgn5xusGlh+4tIgCh+T0J75zV9q6MT/dQmSKwyt+ oTaqtRwMhK7bjyHWvzAtA8ZWAFTIJz1bTfTcOlTl8rA2r1o6aHNnNW9A4VLxyiVVHV8hkP9U5RJLVzbu G7c5JxzZvY9iQsoaUMExDVufMevkCsZXpSKZXUMwIzHb1ryQPeqs1bAFbKk9W0XLsm2WFmf7dkb5h7mv Q7uxxdBf5TJ3MHQPF9ylOeAxB1d4SqsviSLqageHv634HU9yhU2S /jwpg5k6lYc/ad/qScwpUyI1EQajOHhVYel1Lr1pmXVCnBfIVS8O+ MlqXSs6Bm8lFvv5noaJGIBdt3XRsMYZy6ZTXuljjklGNTqjT+jpk+lw+B/ HCgCGTt77M18a9qw7tjMZrDKNKq7zqpg4HSciuyEJBGN76nS/ 8el2ULDMcqM0P2GN4KLThLKRJCCW1gONApT6iJyPRc1dF8BHrTqmrbVfyS5e9tTs4okgztE34BTmZ2rY CrBXjQcihUoik0v +HJU+TT5vS1jMO0kent9Xi2x3g+ 7umZygkrNKFBC5NFVgINinucOV1UBUDaeulONuxJgvnGWxo6J9yI3ZrdDbZ7QQfPihWgl6nhS6bgB/ r5AXrv4Txu5vg2Tu8c4ja7BeQ6fWzMkQxyCtkSS3qcyEZLevWQp1pR8h57IY1weRJFOBQspqEDEFqCdU BMTMMgq1wOawiQcXPqDEZa728qfINRcc6t64LUkFMrOoPJcP8HUGugFIV3KNB3Bjkhe128ynpcmr80 sVisfaqTz2aaqC7eb5cCjQl5aXrOQnbBNYtO4twxa4DMACxJlUl4Ifqh4WUmXZn4mQlPtCgJnBecnrTD XKrwJMiwvLRwG92hxFeF gtqbAJ2R3+ BOQ8jPJNRzouoKlq2e0mXkPI99QkMGQqjFAtbwYmxWfltTf3ARU9oxqjNeIRIKAoFKVUPIO38KIYvGkY EmudNPdJprt +Dvex6/bgra8dayESOmdawERacaB7SkwhhxdBt2Bx8YbI01E+WCpgerp4W3T+ FazIHAW6QIpEuy22mYbkzhQ4qZDyWrDE4oWgsPITM2rkTopJJhN7Jl+ LDB6TOhJB8p2LmK6Z4spOeMqrA5rWyvzfriqpzQHIkkEUuk7ljozNzGnH1cQqB0kzQNqlZ0xpOam7m8/ oBO0v858ZRmyjgYT50aXOzXqRETBOyUcYdUaEu3aQ373nKq+jQNRJvD0nBGeWftDb/ Jco50GLNJQPRkRqvBo48wkP2ArhNjlHhtsYbs47QjxsbsZ4PbIVBStaUhlVrjyyMqV74+ lYLAEindpyQXCkA9ecdjv+OWv/8ABJfwJJa+O3tAmoC1IjQ0RMdxLoGe+ YFD3yX8wwveh1niNgnCiR06up9yXGKI7qGn9Lkfp2Z5faV9s+CR/wAN/FcF8r/ TGI6UfYtitLJDuaVRyT1rLJnBVCar3+5bcYsGymi8ymRJ7fLPSRE/ uN8795U3xFcrErW8iGX3E8iuKVWRISnbuunKk5jDDYZmgrrlHc+IPAOj/ PSR55kUCqQ7zb9GZC2l8hKJHjNMpbDBf8Od7utG6jbAMp9thUNcg4JUcATMxdxrMwEANso3zFBx+qW1+ edj7UG7KejjQx70QcTG5cBDi40iGMWWvlj9KXkTWw+df5cAK0H5Jht2TxI2C+bTdc+ Ksyzm7evDz3Ega9CjxJ2eh4PUTgywHQioqDZ0Jm6cDcp6xKFpd0fpq8H5O/8ABM/4D+ CrXw8Heqdw5leFQWo0Ebvur+mre+bCHnX+ d5B9cGCMxqXlLxYM6cn9mJuGT5ttdgW4GpKqIlw3XUyeHXrsrJPxpRGEoyT6LRrKVWEenefiQhKSGlpU WDY +GUK7YYcH7x8cvzbdMXzb2v4VhdVqNnmJTuUDnre2jqZ/ 3rQc6vnoIVrqrhlmhy65I4w98vCsvUjht2d6zLUPShyy4Fy8CB59+0mYf7K1KpTtxG3Yio01PiSaS/wT +/Ruk8H3nk+N3F9iV76e/wCy/wC3tS/ol0gYsLSkhG2sYToDBASJeb9daHkdky2GUZcOs/ idsPl4xIwvB2oe09wH/ S86DS3L3jBq3dJkfTzke6cNwIOw95RhwWYhF777TIZF3h8jYz6ydgNnfLLarIXHTFuhG1RxVBONQV1eh L8Wwl8IkuOZ8psVR4SZEmi77uBgL5ZhFwu9akQPzwpwXtkEzbZVCojXOaeaz5MVmQh9002A / A9cjfsIJcF1g6kPDvnMrLkdVh0d6gz1eiwZKYa9T5YLby8YCkE9F4A4YY2sipn78RmcNpxf7pEtvjaYu 5QqBzdqJe5mbVwObCIJ6DXVkJ +aXvh/K2C4l2LiVmbzT00bTLmVYlMAZajHPM1kPVZKoChAngukhJFI+ 5JVwmeFJQfOe6dwFPyTIOsaLgkKHUATZt9uMYSVEDxgPIzuXK0ra4oWGndlHXgr96iYsq4lXof0LSGw7 nnNOIzTQHlIbcJ1oGxTHEBmFWXdL6jrGZo4svscN8tO2dotB85O33aNms67p35s8aSb90ImA +kJl8ax6EzIxL7lDbyFWdVQLnHHc5heELdGE+ aGOPZWEGja7MYCXqDNQyodD89MPstyjURRoBwU5ZMmDXZfTPfYgwJiwtTNB87wiR4sZv1pVNgoCzNkf0 hse8B6exNpmPXXY3E5igaUSLKABeHEV5uWUtbWMcai8M1MyZvhQzXp5XNR9DwNk4uzfhDO6PysoQZSjt XgYjRx1VWR8OolcoulCpP7ffDC8pyic7v / uInpACocvGhbKHakZyBooVO0x2X8584CFerTtjvt8w8eJQgB8K9Ak7ldpEXCTIWRPH1uoltt4u75Atcm Luj8D +H8us8rdX/mHwQO6foWmMP1hvXBBOOAImWiH7Hzne+O1TB9WbZ+ KymaAAGLfIhguG2a8A7rVFK9edX8iZDKiGBZgGgeoMfw+ex+tIuqygpkIp9w+EtW+ PXzogVi1QSUd0zee8pQ7GJY0IYoG8trQzvMRW0XnMRCkBOSrGgMQ3qkCsm5NMRhfEZqt1en4Ph9bLvJA HBaYPBlMPv6SeuN1z2lZ9lO1uhfkKw +W2+v3Ju1Uc0f6MtWlxM8FZ6XyEU9m32fhSSUFJSM6LRmGbQjdNxC3cfEbdH/bCg1Wx+IcdzdX+ yQIL2NQA5Gvnd8te4wT90E2+B9rend4j2mWmY4TC2vk8LhOIpvp0/ Irdqx9Sl5NhcEtKYbjplYg0mtNnnprZFDOx84fTuciEvv3XUk5czsPYU5TrdTWR0ipM3eZjyklsnivXW oArjSddb9b7tjDx +3onW75zIolzEvEtodpuPorbCpCeXEaq0HIChEfsnrPim33LhhcvdCp+ ycsdI2xVrRFkjeZFz1BAoNrJDLFh5hJeuc02WhKliDtZjt3a1mjdglL2o/8IG1b9qdWiXE9bs0kE+ uzIxOoZBw1GFsAW6TCP62qzZN+9QZT6ggHKKuiEj6pJw8yqdgStbY8au45/YXSRtFHdRWqTzQwo+ MGDIvTFOSHnfq55IF1p6SRGxzfvusMfEdjgqlq9g2haHigZdeLjPrjeNZVobLHH6QysVvCDV2uI5hG83 jbjbi33H3QUlD2NUD2A5lxhFavrvwd8RpWOv750ESInvsEDo5ccaejq7O4fv4T3Td +gY2iY3m1oE3wr9siK5xxw5Xex+ nfQFFjDRxL94gcUoUpUjmmKXm6YpDwRNHDXcoOsqWOsWkl3sr7euyulW6xMjpgHAcHNgRDedGdolUnBw KbJA8paOPJ7KWXeAI8g1mGoOf7 /TXg055r5J/sNVmsoorS+ 75zHDhgD5d1rzJmPUKGIXFGqWmxwfGBA9aIOew6rdVxzsk3s4hv09qdipTCrmxGnuyqAB8KuMfqiGmae 1dRrVwzdAQKJ8QPTVlxsAUSsRT4u2z3fnVK5Xg9tScTYg407eiG7P +zblmMbwyzWUkbLbQE+o85S59EAjvbGQXuG6fzpmasGS0U8Kc8Ddkc0m6h+fW+ bbOvZSQW6mmayIclZhabyfPCkvpUeODKnG+Q1xir1oCxodDcriWlveD1fzGJZMg+ u36hk7gyHjp8emV4234TRdo7wIFqsWbbMgbEoH+cvGviDVPEaraQ+ TGXVLQOE8hQ6cbKVLw0pjlAECIrQ1dsvdd3VHI0WGy+LnpAUA91k/ pXoHWk69j1vtnPiD97nUxPAUvLRFKKMIPmNRbNg5k7AQSOrqconxsqyuiS+ 8b2GYLp0AHHE60Vw2QfNKDBKJRQfDkIbyvl7VDm/ZJvWZ3Dt28J7l5ty469Uop/W/ 15SxeW5XaMmxjPquyiPVrjwDbLKS0nn7AwflwfU1eNeQGpKmJksbsMVpPrprwdG1qo9br7oTtbJLrUtp Duv7Z8k9TTNojtfvbzZ6lTmHr05ETNjRUvmlP9QnXymHjyPRetSwsRfzL8TCsVDo +IgsecOlwaEjgDXuvT3wTWkzgvuxizF1ZGe74Vj8vNdqaBGH4uP5K+ J9PE83rBsntirnh49YlkAjRc8gdoJ0ZCfRgJWIiFcgzuhin0QgGEpt93161/vtorq3Vc1svsY+ pzVXZDZztjJfAtntp9h0UjK7I0WSiRnP9EoA3OTx9DHW8PreWoP5q4In4cD4s+zC5k6xVZOEou/ IEuvWTuC9f4TfVEZAdo89C43pod7teo6Wh8EvUC2ljg2AHDC+LuIh3g6oTFRC15tcDeLomYIrlDlO/ gnS/B1YoTMmRC60rrud5p6E1527dvmxgNzciD9YWkaiTC9d55xY1Yxrfv06ixhWye09M0cx/rU2o2c+ jGcS5TAtzwVDaklYBmiB3Iad295BlH76v7ttZoXKG8CSFFOzFlaeUL4dLIf85X20991bm3ENtqyATVcF cCnMWE3Q7rxSE8SdEIunDRemu32Ds3x2hqdbpavC3E9IBE4v6HAS5q17qmBExz8ImqhIswxIs8plNMSE yQ +j79NzoK1wAEaTMziT0Sv/pIwSr05b/ JHmReTDDbjVCN1f22NuiZhhzZ5PuPRsEAdlpCk9cwJWCzSSdGEL+zFvYAdm8J3MIr9lk4aF8cc2+2e18 +9fiO0O7suv4xXLJB0hps8WY5HU9D2NEN70Dphfi91C+C4/jBrfhBvDV/OqpjFVMjj210+ 6fwBNEyEAwiKXQoX0DUBVf9pXEK6fwM8GP8UQYUZ7REsGkN84YXQXABkIivYsx9YF9ew5Ns8+ Xt4UrwbQHhpBmRnPgSwC5sUFxymwER/ TCYDZn85XbSlrwQm4xgKwCK00qdQTfcP2fCwZDXdX87AdE6btocTQL8ma1k/ I7lmLY2hTSZGPrqAphbuu3VAM/ yHhcktXgXF0hzbvkJDZ0kuyLEUAhEu8VpmFLZh2UFQVaw42HsV6JrtyCI41CDJBRruim0qZ+ WOpLPPheQ616zGnxF3HvoYsx2jbnTC9ivNyAfbii644YdFcfq61+QTV3DDxStQ4eW98J4y/o6mnCktwb + ESXE68LDIaEnk0g9n4Z9q0MpLhAwiiVfsPzbNC3MfUrPsOSnB2oHRuLu0yPlHp4KAPtKEMNmTq630feo 83vw7S1n0qcnOIA /HvDf7cqdh4g1hSrpSWAoI/Y86oJs59PgerePcVyOeOstnKkytulT8Exk0OCNq2rKHge+ RJhBUh7HdzJvQ1jVv341DpvJi9qscw+ wrUJBlhGctvTgUhn1xyXYPULtAaCHs3UmJjzFUgs9Dm10E7Av7qPxLhDlaRFKeEbMqmCGVmUC3Avt37Z YRMxrZWTgkS3R4gJfwM +MtqO1SuajnzqdoTM1duWJghL7lMLfw9l0BhMxmr3fmkNfK8eQyWjEwaLB/fyQsQszK/ 3D1U9fwS57Ok0h3rWFoK+ypb/ JRR5g0meLAeHB6UOo7j2yqNf8PqJiVO2TuCoKgbDVvNY45gcnEUu5e1AXK7HqtfYeAfa/P45xkO8v5/ GXqklUvzWsp2DzSII67O1OkSjhgivElm76FN4i95vNYi73rpo7FpEUtsQhpjtxTxev3xf7kgkmAMWYZ8 dG490xWaOE /F5cequAJOJbfIiI7AbvuGzFuAG/wA/ lYika446LWxVaxxxMzP47vZ3L3Xv6cw1vrhd3RbjBgzrQ1iwkkbTmVv9jC3iUflKgpMDDVoZ139A/ Jjse8E7kDgMdK5Eri0sbx9eshSArn0CgtFYenqywpArb2hxxCO74LRJqmIW29vxEetszIByAjVxaDPN7 o0lhtf6RJMAlypligS9xQn6Aj63 +evg4s0usvx6+ab6tvTwQdsQTQQW5l1yYLKHgp5l9dXdWVbWenAsDwYB3Z87Kddkv17kpohEf/ j6cZqFAh9Bmo8tv+Hqv3S1vugBMlO4sbBii+ 5Xo9EW1ohUFTagE7DeypiR4fh6DijwDqAmp8g1ORsWVFdh5u+qQrc6Um3jF/Ml/i3tf1IUM/ YO9qz9FqfZm0K5hsLzkU7Nwyc+JNRsLuEaZb+ B0rS8qACUS0HwZhAJjrWciaDfkPbpbctzyyrDycHRAHeBMbikp7IjMsoLHloQ9DoUhQQBvZfo9DSRXG0 05g0Pl1lNtzn7f817UXL38prEqTwBWldFVpr31DnI5z9Fab5Q +VMgbtsE798Yp8q53hfy4wjiT19I9pze7jFElZbfSJrcATIRpkJnoZrZH2e/ fEeIfnecRyy0kt5GX2uhc2isx7UkQ5aC44QdtmLsW1HgEYtUWBjE0vYeh2JQoffVnbx3J84Hh+ EDpC8ehg5HsANscd+86suFbO8xAiNw2MnC3o1jY9tafikt/ gJsoAazrt2fRTUXofPnZyTJY3L7J9fQUhx10+ w5JiSoQ1S7oEMuAshetlapoIvYtnobSpNIpSjTIc0b705ztzVeFG/nx3aztZRVnreQPv0gtnD+ B0NjuXpFY0FZtdEg1Ozbz23oov8BoZYgK6zzfeejmm12tSJZZ99AKHODTMu2sjH62U58haQF1eyjptmz m4V7yTBvxzfX5ggxHqyZ7WzWBJJ9NDZvOfxWR6b3R129nQolz5Sj1nYWuMs +2JxThuavUbzqjtA2suiPM7+yY7Lt92ddlFEn0pFum0UQ5a1TElMPmuIvQQKLzFqp03+ Am3gD3jpfLjbdOoHlTo/dNDem0Xf15zrzALqlx/hu6sLci5niZHlSCFtQLt3+ 9R8lxlO5RVXDiyCPhxb4N3tOXX/xEjXWnvodj/Hh5pVCp3IC+ GN7smxrlIAvNow6e6sotY9B5VB236MgcvxcyqE/vxlLNWn3G/ wi30zGPe9x7EkA6a00cD32igWeVM2nxkZKuw9bo8jW3qYdQGIcIzubjjM8Mlxj44T5oYmSK1NPqKjAsY 29F7zvF22Bzl4kOvIlE0CLTW6lmcdTafPcOCfK3llUy6M1r2m5p4rAuYAN5t10yaDedztLsIg6rwUgwd but /QpnjOvgMCfxC8PO8ebGLcR6QOIQdvVIURE9dtb4w+WqXwF1Rcfg0u/AIK+AdS8S+J9cu/ gtokrZpPdVXd7kf5TWI1Q839UlmMtF8maL5+W4l0/qHRY2jm7yrtjx1riW4HQu+x/ Rl6BNDTCoBBCPngS4Imu9u201pP4b9Ys6qCXZNcj1WrfVMAB7eystMI9hQrfAvT9RjCzbjIqQ7l/2746 /mCEipyeei4Tz04tweuGbmHmzYELt4v5s4uzoryoKg5xUvR7th5H0PXDiLSdpzY6O+Hrr4v+K57+ 076Bfj3oCsTpubb70PXq4oCeb53xRVqF35G/ qo2onSJoIvLphW87tHaAINAfgIBcFAxR1HDPw7Calf3j099a04yb9qsHElE1AByAvkt0Gd5sMEXl8IRE EGlGvRZGHOt7vgycQvp9t9 +eXtunncBdAr4wvr20xlZAXbwAZzpMCW30KBukJBlXmZev4F7OzRy+zKviYzygGrdtt2Vatl/ HboWiPdrQMV97Ld1DwDFjv16xb8bjL6hPRmUAwfKRaEzkJ4DJaFTgTaEa+ 36jQR8Sa1d2w35Vjtx1qiLtfEe1DnyfM4lH7YxXUlqhszvBCeQh2IxHJDlvxHDbdBemtuC9bx8CaHrCA q1f3rvxZKijn3MiR27 +79cIu7oMghifnJGMcZ9mDtvOw8xoymOXRncRmaCJ4IL6uwpTZcLTb/Erq+ xpZxpohdkvTfduMzhyReXztcYtR9QI+ 5EAbaA8vjqauEmxZKBd507dlmT4h7ZD0p2MfP7nxUYks71ocVD7kuaXURoxvR8r9CiNSGSzVZDwdY1EW 4XyCcxui59n01VzoPzyKgXE4VfdDTlrhga2yNgZK6I7T3mBmZpG3PEyyUS9UKqUjrecKyP7kypf /Zp+ZXhy9GcGBHveL0Lq/D1+tza3+p8QPBen+ xtyEHl2FkVORmirfX0t2g6pUpJBm1xlBqSu9XayS951Or/ L8IUmN6BRyByn406qg2g5xufCq9hY9yKiXuTv0S1b60J8vnqwWOd9OZKzzSc52KgO02pZ+ 9AN0X0eIz1f8YyC580We7XMZ27Qnpgl7GkcQYhSVgBse8HGzDdv8JoVIgU5rtfeUms8xQuIAQUlu5M54 007ZoPgGd0V +lwyHnj8n7t/Ah6Rl4ClpgREso8ay0mWjpfvMjm4Fb6eCVCTgUFcWsj2esOKTz4z8N/ KstboCxWJCu7vk79eDt/JFd114u/o8JVBQAjXhhPaBsMDVVnujCGWsOtIfhA0y/kA6Ymq0n/ fn8r5DtMDQjnKA/B+ofYT3a4dhxFv2nZ9ypK2eb6xGfpldTEX6XE/Y6/p+jWJr54h67T2J6+2vbMUjhs /Ft86DqS4Y45XhEIdsfEz2jvL7uNgqLC3GySLPIaChLBIEmgxYd5x+ 4P7hkItpS9KMDeJuO8gJOOVz9VeUbXEwEZx9feeU1XarrHahB00kfLlnotsxXiCgpe385VOOUvYwfAu9 jp4LRFDbWy3VFyQ4rakmfttfPi66IIfS7tJ3ea /hNOi0nikf5qzE3r0YjtrJ9kYBcX3q7rNoqzrC2ynnECAq8cS8pp/JMo1E9qnUn4o7pc6f6hC0+ 4fS1wDOSPCyfE6qW3oleExAuiMMqdSc0O9/ nArclhXnJLs3y2aKKC01tVzT8Fv9f6feut2GSG5Asp5dty6jHap0vnJ7sT5yvS4d0fHumwC5GC0hxF9E t4i13w + 8br76regnpncRuO4dJnNeHjgwjGU4ut9u2aUX0V2eyMPL69xOESMEBYtnBIBuNy7w6IXz0V1ITstHwob 6ebeh +WJvkfZoFV8spA3FS62FHSTKnm1EEwsrkRPjkpn2Bs9n0ezxFAjoTGJtEdpnCqucAXy/ PbD64nTOU0EblBGzeNbV5vyxgBUzQpEhDsCyFFXHYtT182D+ ZTIDDephosOau33UbHhdyaDI3l8TlopPDUu38rf0C0uXMJkKOXF2qWQTq8Fc8EIAGohd3vlB9iBc3RjC La /Zb++B9ltyO0tXSV2r60CJJYByFXWZTJPKJjMpv5A+ V1A3X2wtBFmmaMd2b3Ufw3sUXfRYNRcdhYhj8jxjTpudFxFwkulwoCLIK/ uq2bLS7lTQ0HaMvHc4NnAR6s8vS1Z4g38RmsaY14LYuNbOi82uW9f37drjvjkXeCzkcs2Cjfvev+ Xq8OjRFrm8Q2L1NbSFnkR3a612u9av5HoaCUAum6vwTRAh9Vb5SuM8iQTnVwDlbBon6KgK5J9L3Nw691 7kg0YukytWYltNpyr7NrLTXvrmJ5xv1yNPp1Gx0GYAqrHHHX4EmBT /QweFgHAmNqm3AdbhwhdaY41wJbp0bjrUlkvZabqQ7Z/OlaFZMukK+ GRcZtttr3Cra0N1m9sbtHwpP3MHTjMbTj6uiOo17aBhJi34nmAnG5fIGsVKfCd1ZVppOppF1B1UxpiBk CEKXiz0z + oLond0it3bKvH5Zwyv8ln2zmnpTRO2erCvIajXaArrUSm7XGkRreAMwz0FOemju6CnXO3Qb8eUHRX5PS 8OTd9JAdCq1XujVpDOBJf0OINbkau /fU8Dvltz9pqszlpLJ3qoHm2iJbQg73Fq2PuQVvwoobi81BZvPSKtPgABy/ qZKoF0qkywfJtmsM2I4a0Cy7RhCihswJyXan+YiZhomaeaKR8VxBWZS8BzG5huVVisX6yZ+ mwxTRvDHbNqE/mRw+iZlwUvAW1Wl10dy80lnhGCMS+dDe/2r/UztiKSjFq0f6Oho0v/ YT27vtx1sQ1IMQmwdRKOP9Qhq2oOm61Rn1pClY4BfAndUi3B10YkUlmpzB1pKYSuCGVg1cx9AhvmtF+ fn+ QceAwP5udRqIZP7Mfqjzpxgf2edkaJt2Ns9xy8zgmKcriwqwazpLrdmCmQQ3QD7ggbQfdiJua6WjwA27 mA50F9valDHDzFg +X3AyJQ3bHMSf6ZV0KtFPYmlahaK69+v2NajlmpTK87+ Flx82Wyl9y1Nu0D3PIVHszEh0mBgyFM40UwsGf/htBHTKO5h4bNub4Bs3UZO1PWj/ UVbBCInEgg3wy9uf9GABfcEcODHhs92nG3l88MM5g0DHQ8ANi9ot7oT7d/PU/ rfE41utSdogwF3Y4tUuTicbqYvM12dwKNViGl1hahxUw+ xfsysc4dPSrAwBSlZL6aQJ7YQkcpAcYw7kE8STJbzvKpA2lhkY/eMkcTLkFSfmwMZGF/ DrnvzuABOMjlPaVvJtXV/ Ad5zbiVX5iot5Sqxg527ttqgvLkuYSKAraNOVgYuukWgjdL9B4phg1Cf4Yjcfof/ VoF6PAmOlucYNX6V8sjPDF1mdpEKBDUl4TvC2MZApEfAVOEiwl8/hxgHA+ fTTSQczl63ZAFpk7cpokcAo3/Q8K0RbIng1v0Zr923d+920qDZyFt7JJQ8Q2aXPVyFSomSTiNty/ yXAPXxSlen2cOkILKx6sXDt6UEWUI11gkCbKdhCULT7uvtHeARLFuGXt0jpwLPY5mMVGuNw33dsd0VDU b520PGPj0F3jzv +l7+dJS5FgwjlAPx/Po9Kt1JwviTiRnHO6mucDvtMzdGwNTNreLGl0E1/ gsRALtMIgjOmxusU5xaX8FGZDMXi5WIhgUeCyCAFBMN8dOTQqmdSRzezsbbXiEEHGDV6BuSNgb9jfVCh cordelia /YM2qPfw+iHwXViUa78/Pre/DzR6njIBW/ MBRtbERbjIcWamIUJCXcJlfqygryiwf8H5kDPLZsVeYOHAb4xSjTGAtttp2UDUyhF0/ dzdZ7QOrDdmmk9m7jtJppe6CsTgSxSvFnxNuifZPuqIVFGRJaQAvd9sh4KGGLhJBEDaz3i+mmz2/ g3SGHEIaW56je9qwW3mzbWtTJFeYPtgU3Zas2pUgXwnqstvwx5wpRsptCbgL4mTxxGo+ NRwLuDBRUVCSKTFxIkOqCul17AaDzpsxF9NKz4YYrwhGSHXtAT6LQXZiCvxpnR1k+M/i/ hgKWudfqJEagRBjXeduGZYdO0QY029VJOAJEygjvhtm32yl85/ C7k89FbwvZ73J5xulvXqqni6O3m1rTR2nowMTYvydYlvtuByr0ygaYWTUCcXQOU4R0A/ UjkqS59o5gZLGnYgyAKRP2uwUS09OviwO34m2d+G18gcKsvgDCgxMSKTZqJ0ouGDyJdwQfnpsQ4PaQIE /nmm0MA6XefVMUznsZeZHvpVCPk72KHp0K60Q6p9X/ifGW3k26795GPUMTc71Ov9xq1zZeq09ZorU+ K7pSHR84ejWmypOV8sWfkue4vSqSNUn0d6J+ Uyh1fh6lx1irlrXjQPVIDLDARKkBmJGNyPGPXPmN3PO5F55o5YNpvyvaKPoQq+ baBVlXCZVNYvq3jv7Y9/4W+ Q64uOQMXZODLtiXHUmDa7azhDBZWVUrFR6z3sewe7L2NxYzgPa434Y4BLyXl5+ fbyW753ZjKH5OyoG2sbs3WH7nvgOdGu38RIgk1gcOBlACD+ZB7MLsD+ a51cV8jnVYCUtlDP5kSM3XByi3Tc/ UBY1EiKEskIWCkbcnmbR636S6NHRPxIUaEyyuLV5FWamLrv3fvUThDn/ 3DcoG5kVQNPGcfK0nKz3H6AL3bDVhkWKV9s1QC2tQ9zv6++2orqgvEd9xjmSMB0fx2rxv++/ xfzWHxd6XvEKwc1Mpv7X7GfpZFqjiSg4yJ4RQX5ENocW4aXptB8yaFuDWBP0K+ UbaPsOQQNGkBXZFH1U7lyTMrGtAJJirSaEvhbEPhOwKLwVAFnTT0CUHeqqEXmRSOCEMdp6QIS5DHdVgK yGYKX7QTIYmBW1LVJ +6qj8YoKS/ NRwg4qnztizS5ubMH4ji4t0osjjB0vyJkkN1OdrRWDy8SmEKMRafO9cbv8BF5oKdvdQDAAtPKimShCZd jNJ9vqZaqlD23cQSGUWDMgeuF7CXJp0RVljKJX8n8IWgoX3tL9z2C8fGVHEGqIH4FXyU4bubqIlds +CIv1fBnp2zcj6b2Jro2Ivp0nm9crCm+7gnEeQSmYIT57IKsKLq/ lI66Aij5oOzfVK3LWEFCGZkZsHCaJM148EjSjYMHIj6GhBpA7pJPjEZOTnpMOHhxMyawIAphZfy6asyk zxWgZDhYmljQsIaX3dVOHd +lntD9bZY54HU+9b6pltp7uT3UcmkK4xLh0ekXqOAjcWej+B8wB9+ktxNv50NPndva/ 3ZUHUfwbt8BUgF4y7wZfI3gx6ksF042BxAN+Xh9iw8+jVozcCzHObIKENWVB9Gwq/ AtYRBgCh4QLdzG1Avqso6J+WT1tM2NBqc2+ 0pRW6GxUiVhdNjJJOkwPBILQFwduR1K9bIPaWtxbwLEaaeV2nVcbc/j7KbsWJdpDtBGcYvy8IaGBR+ Vd6BujB9ATa2kytmfErGeisrMNpOvxXw1FKwPgiN2tBLlLS1ZvjfflGp4W5OIXAPyJh/AO+ OPpWNhA2VZjcMlGH4W0YjJhfWrVmcKUGdpN49F/yS/zABWisUxLZhZ2T+Ibr1QJW51cWrwCb+QLR0x0y +toybuaU76rEGTHZndPhs84CnIDjZ7DkTAvasNjWSiLGrzoUkFUY56uhq6zay4qCZdP213dm4dxfbR/ d59P8lzD3ey746o2TSzYi4I49ucaoC29LENYh28xy3tIanvX5jLhFYG5KjmrCJs4rHuKU0YJRYKPklnz HsDymh1hkk0V7oIx0w +BwF+pEnCRuVA6iRvCCQ3RuL5i5q2C2oyWuKD/z0tZ+ zYjoqpudi07x32s4KVEyXK1z7ccLBDzZU17rUgV7SGDGPyHosG55YMOCZsRIpEO4qy20qkA60Ly5RjmJ 1Z5LEWFFsTLKcBKJw2uToWIwPrjD5wN9M8cjm16iAVRBpyHskyG7mlWyc8iXv98BY9r8zlB5fdX3 +a+b12ex7+VTcfdclG+i695zpbz1YyOeaEnmctWqsiC8IpVmiViZXNRUDijF7nrXrDQZzn4s6/ eTUCmiOxtRGx7b+VmWQCNDUV8DIcWITTPMCKLRSlj7n7M7ok7+ kViGYsD8IEzDFWUdOR7GoOqDjmyOlnI3l0cZl4ZLCaadoYxG/ B46YDb2fK5PUBHqx7dcjQMexvxV9wxCp8sI0rFx/AIc+crr9lnZbm2Ov1Hp8S7O49wF15/ H8poiTUskZTlf9lBPZm3+E0wQHA4LNT1isaJP0A/ 1PRYiYXotf7T1UuwZ1g250WWaFGpAqHoaBpplswgoDolOsve22tf77zoBdiIekdyJjMP1sXxxATbjXXw V0QTKTrpZi6lp /nG/bx1x/Acopisn6ombXG0jiLIXKlFmWEw3E07wQqej7OLetUojZ8/S40jxHaU/ mgc3Fr9ny30ErfLxP17Any7B4OC3uBmm1AGhEMhL23ksqIaiS7ml3Z82uQo4Em3K9AUlDYfX6qwFFBtG Q8FCoxDWJahfA4ESSJRSAVBAzjfEcWPnOb /81fWdLM1d7lSPOUBJVwgeuwGXRqvQf1WXNwZRAJyk/Hp+pe2eq9JgQTZDiTixt/ wUDwryPeRrsrkeCw4saJEXVxTP6Tbk4pzuzl4+xqX7Bpwi9KOqU8zMcsPfUzWlhAEwRvQ5GSD/u/ Xk4gO0BHM1itU57Ycjxd4q9EKA+d2lckpxnXOxvJVg43oscpf/Wztq7+drn3/ zsBdIyLhQq4KXMocZQ5PWnBycYo9R1ZA79/ wrLHZTMguRzjAYyec5CmHEHZQoqgdibOgAL7vuzOTiajAhG37wwplqrjq8xkyEHF9OSw+ IrbdZgIUH2eTWqJxqt8qPicqgMS3k8GTak2em++/0Nv3Yu4DOgvG1/S21/+ YwRIz5jBulirefqcpGKvwBJxX+8qVBFX33mxZKeRnTVUIxE/ ZMur6RAyIc3dS7GhgeZC1TTZhguUw4Qp3DP0sPYvC0zP6RahX/of8Qr/ D5oGKulgCISzszouhRAMJPunqS6c8nDOiDdKvowc+ gfOxCnF9dpPMaP1sODNucr6lXNLybLyWexwVCz5ch9PQhMS9oRtl+t8IrqSzbB2idt1mqn7U+ ryJEtE0nRZ96fwx4Alv/PfSx8j/HsMImZKQ4AB5E40FfdRbUsAJbP0YpCEWl/ PUBfv84smOgAKx368WXx9BJN1HutnSyJPSIObQwDR4q4gpzAW6TBXikiLFDKxkO7UK8Y8QWeKZkEAlO8 3ZFZSeMNBWbyVZ8DIGkObsdrv4 /z1TyM3g+ 9srl1Z6qmXOMu1AUXN3AlIEtqOYQYg9gt38NttGkkxyRgRCe2ZCdj3R1p49l7Bw2xMjHhHY03dmz3OEx Kh8ah5jz2uS8C0Eh0IpeGHymDLfwQdEnNVgbJVqyM +Z1SKPc+W+UKNrE/cI44+vlforTxcF3xX5epFWiXhuHvAnMt0DTb5Yye3SlN+6T1Axr/ABu1L+ aqGi7rxG7gWIEfebG40m0HjEcWGxtnAY2WYM35oVxvfUXlAm+ fBqfKc1vwSznkvdk4hLjT7O50bddlB7sQ/ g2oLEvUbNFTYmlzsFYr10r9cG5uffMjtex32UkrKlVPjJKbthX5QDeln80yjR8OBtoekvjRqDyqUsnJt PwufOwLnHcz27 +eT3SQt6bkBpXElaaYi+Ql+MvthsRBmpg8AneeqYki7m8YGT7ABD1IcnqjtPPuIqgz+ GKMqLLscvFkCMwf5UI6YF/5Vv53FuS9J1NiAvtPWUOG9zMAJPkDWKT8bnZXKXQTF8tGstTQW+ gXdiFgXTaP9z+D3PcsPldE03ANUpBbpgtcX3T89bovFgRXLSP5AZifLFCo/gV4c/GmNe3H1rFUl+ CynuGvOFxC43h30Q0SbpvQWAjrf1Hb3DE5cd5d14uYioSVLugFB759lYtXW9c0GoxRZfhd6NFe9wbt8h 1NsC2tDqFUJ7ZTRaUwMQluHtYLFcIxdbvz8c5kXkCuSa +6jFGgont05UtRjLvLPFtQawPThxsPkfO31VE/DNEOctuUeQoaAgZhFAimWBRWSJSSTFLYT6UIFK+ Xj93uyXv/g1fQLK+juJ4Mlf2UrTJ4YiOJGMolyh+xxTPqvT5w3UwugREnaDX+ cfovZp0IuwyayqNQZh6b4TA7kpi0eCuP23f9nc3n99nil5FzbDJ7imCHg2J1puZmZsSdGQLb8ojI8avA VhuQYUBkwoRyjwKYwaqEXSQi0kLLC6ozq81op2OooF1CPEX2lSKEblkmctqI4F74 +DN5KJvBc0PqXBaGdhg8/NBZ2Wbb0/POc0cJp+HrawvrVbeWSJpHhZQcSPhpAOAQTgFsqNrbozkKAe/ E6KqfRmfvg2ydn5llX796461mGVin2kLdmDjjSNvlTzJhEa9gzPUQEsxep+Ptc+ Gx4c7uoZTvWfgzZWF3Z9thzw8jy2zFCLj3P5lJIUmqDQiO17T8R/ RWP46mquRKXKXisFZUSYqJkT3PmxYaHj4WQGBQ/Gwvm0Z0tRa4L5cK1x/ 4WgLEVFxeiDMVXZYDv4PUUblb5dQuFJ8GTBiygiYfz/nF6JjiV0qSo1rrlhappTVSUj3tR+ 6o6cLVtxju4J+l+0F7ppuwy17Mlrgcrs9joxYGE8YL9OoIuri/BYq43OioBGg++ vhHs3oUrwZVbTXkMoScQkIFS3UqpuM3JC+/5g94u/zdtMrlI1PfAcsRCciXoTdxCXuoJedXx+ bBbAwADXsOn+ ETGjhYTSlM05MSDTQNNCDNGBZ5alEtL4hnbHLsitobsiuGsGRZAUuRNNBZJyLm9wSrhKZ4Pq0w8KLZ5F 7aMp5QqH0Atk9t6 +iV++m2vXTQ+qh1eiTyainunxdaCzwLEmMUrxDvZD9e28shxn/QydvKoE0XBDu/ 0qMWkEjTOqEFIPzBFGMzHG5denPw+Vs86yBV4d2gvTz0AgUxQwXdhSMXDG1nzFzgeMDzbhTTIl+ fyOBubopc1OsyRRX1Ml7Hm8NTogot1O9C2XakAQZAnsqu2peh8P8QFXVajbaa8PaWqKzdRoMoTYZxKKC ezjIZlAhtusuW8u /M9dhqPKNO95b+T23xNl6i20rrw+ 6B1qhV1gBr9zua4QCo3nPfy24qPNGarT0EtvnB7eQm46x6Utxz4QzrwyhnjapaByboRrA8WXlOQkT9os vMWIco1mFvrjjLkeizrDN5HjehIiU6JHeUPPv83eHtsP4bBKuqhGytBnVQf +JefpAJBqCPrJif8Z/CFaReOdSV4rOjrEfOGlOz0ZhehLZSxU7Dp6KRztMZXVWu/ tKkZrvUfWdPruZdF1cHzYUD/ sRbXMwRDXWQ8HnkxkswWQ8DVQkcIcvtvtciDnG542hqJs8JDUok5y2XLwZHtTwAk/ UAwAOlOS0pHurHYnOO99z0f3Y1sMF4JjZUzk5vhPrSEPk+ldrs7Qk3wi3gbWwQJ61zH/ c2rhRXGQrZM2dM5F9yMCPyxwVfFCIAxPwRckoisAdAsaJ6Xoz7BpBHxxmUPlDMM4lQHe27GTCc10iTHo Phejboc6a7ZYXbbU5fl +DKteUMT1xwQtsHhlmuK7p6yAi6Xkdg+zRJADocC6nOvuBrHANtNN6M9IPgUHZwuF216V+ oi52yo3h63etZ7lCzp5GKC71uRuLA4ls5z6zX7tp637nVU2JQm64x89Z+ M87AdpFHYzA0RBGLMtPlCMFqvTLcrXDmU0q2iNN4VlZEu4khmibrRxl+ihxxDYJ5WOAHl+ 5OGfvTqvd8EjmW74SCXpxaDzfZl9jHflL5NsSDm4ytuyQ6rtOikNngXI01DyjnQ9mbvnmIFJNR7FfTE1 CcGd6Dk0tctYKGsFC3F0XIXYPfmhfyagaoENUTYkM0Wu1JMQYktuqCb4xc8m16B3o9862NDHr9izF1gG 5DdVpNr4Vrw8Q6xFjHaFdkd9wObQn06R /cR6q4n5aqHC3p4xAvwSRp5bkMTjt5C42fQXYtj+ TqPJYzzTmW9Hllai3Y6inYFiPDCEfwZ0uRSSNIrOT965fkz/2DvbXLIxRSIYE9H8Bowzvux2w/ yl6jAtMVM32NPUJUQlhYRBmla9m9lQkzXONMBYS3rttKQ6UXBFxT7WCFVyaZsx25WI6wdtKQYJKsX7Ei boGKnMbamAWDIJCb1nyWfx7akJ2twtmHA0b15uwIZbLwKpbmV588d1jTwIvSLo8xhpails2keqgV4kPG uSi + uCvszUxBocanthmAsTlrqHRyTjro9Az4u0myYSR9y42AejkUgtBffgM3tjhWPtRTMCFNQ1KIOdI6Crbn DJaqUMZl9jos7OsJaFTrMNR4 + o6Q8kbATlla3mHyqy0ciRe1qaP1uFHpvogC2uIPaGrecZo7rCG9jg7vYXkDuKUWAsvTIwG7mWuH7BlFt rRKWkKYfeyyE /PvCCje/ M0ZF8vy9eg3aRgylc0YLEBOuTAeSu0ziGoq4lbcXfmc07jnQk8ReiruRrXOV8EiOgt3gCkEvLupT6mAA vmX /KL3q96TRUBsdNfliqDEP7+NYWLaFfZKgnCxK4n4QkqPjA9zcv6rUwh6bs07WwiRkT1nRVzK+ GncAtXtNFI5wwgZ+ZBS2nhigw8fH8ml3H7WMFbCeIMRDp7ldhYCBqXNwmccFZ4ey89LGl1h/i/ u62l6igkusXoZIngHllf4FLvoL9THnG5eAA+3ITUBWT0bTtjeZRwN+IwPg2km3qAb0n/ jKoUpfs7qsu4F3hiKEDu4KCpL1TqWRpPcyDrb2mUsQF8dlhjcsX5Vu1Gj9d66o5Mvq9dJpV6D4HIpEc8 9eQa43fRhH1d5zDgYAT7KwgBaJLof /fXiXzKA0u1XAzt+ ZVgnxg3do3qMdclcerGSEc8RdYO3cDopZQCYjBkkCXKh5gO2hxeis36gIIQJBhm1fDbPR5LblgkHXo5C v7dz8SzRWkKitClXx4CuGcUkTqG0M49Yu7blwWFwRX8ED6XIllm5JpJc6oXbIiZ0DTMD6tRNrZeBmWU7 HkD3nXGtXyW1g +0FxdulYuy5bCr4fOLpftYD6fDazlJvvQZrL7o1VclT/wBreGfiCukeIbbTbjW7+2stQh/ wV8FwSn0MiLvofHwwEoMSDqH/S9N2D2Ujo5cB5cXwhUFjQ1iYu90fJr+ HMMnKhJfna0nymkzVdgHOAbxM9fDFUVDeENpS8y9mNecmt3z/3YST2H7MFOuOJI2Bx24T+ rfZVFxQnGHNiApEuDWCW4FuR1WoT5kn0nEUkzYBkwg8kJnRdXj79KURY4hU27sozZjTvq6A7K06EDQpO LNeRINNHqVXDw6cGMxm5nkgFf4s6xukUcT9eBp6YvZsPrEiCfhj74ljXBtmeqqkPhjQm70B + PaitcH8Gyp07JIJZBV52bXNjR4Fk8V1UAQqGHS9EZwF9JdZpV2J8w96f2P2wmnTezSjJ8eajhdcfSBXN N00JdYBTTmfhKQfTQTKNbP3i133b803k6FolZt3fiViQbLRwRhAI7XoF3K9ZHpg6cVjY8zFdxltAk0Ii 31Zyr6zNyEHwm4wGB8Mi9dZxdWMMSSlx3C0dOYNLHEYlvMy Cgatac43tAwm1F+m+lM683CuoYCPg8V3N9rA4Wxn90Tao9+nZtpm/ nyEc3Y0qKnTeRG6dgD1p4q3kpF605mKmYA4TeLDKGHTtUk9wRzQrkfNOr1jgjoWAlxoTKjEYwjIA4WXV yvPHIWXMUoGFaQIwZXKqscal /l3V6Q7Jo0eOUIxFdgTVdEJPf6MV6XXhYEyXMcOkaaI+iBdHcK2sv+ zaW8cu3wvKMRTIFAa2mm8w7Nb8riHwl2Qkui5WLSdkbZXOETggxwu6mz4f0a61hy09TyGzeb2mmaMC4v ODck7db +kq4lc97iC8rjHc+ mvuZJbjeon29wPwacI5H78ij5Rnze8IaaUBCsxtYSewSnCsyIfTDAXROCYNvSxHpurMb+ MbH4I6ojyG9D0fRSP8nxHDlvSPYl2OXELkEsXoKBYyXCqocKdLIdYl3ghrn3lPFOYi0v887Eb8PtKFd5 3t8THt9ET5AACzF3cuVuqgtmoUA0JRUBP64qDe +9A5zacD8juek0KyCh+sr3J5fyUg77A/ mWwQ2O6fdF1LhYzKtgGnyNi3iqBc3oH5JQCvnpinIY04124KnVRnnFrxmuERAm9VcoQOg2wZuz7HhzHu EvsEvu62OuDTxTkAFgwjQEvkihF711s7cc13paolpAbK60H9KjFlohi2duyzZc / 7e4GxR8IzJkiS2gxQqQjxgnb6fOwwFxYwv3imzU4Pz4UyJaGxo9pZY117NyZ4EnhFIch7KUz4lj2kZQa BquA867KZnq8 +vpeyZRpdrKMnU5itJWiXiwFUhdToKMlxkC3S+LbpEa401loDKiGNA7wpyPcj6VMp5TY/ dnX4cKuZgyt2D0iNGoUacV5qYiRwoGlkZpJ4Xv6wIWes0D9myJiE2i6lwUobnPhq3ZaUlSllAZ4tck01 znxuudEideczGD27rG91trogpv0jR8W9LyuydzXojarpnVQiEv4d3SbY4O19jO /pc/U4woCX3Kph0oRcBDg8fXucoVFTVwZk5RLHPSXHLzw19CIg6zsJrUv+2TdU9cBMhdoHJkzh6GLai+ LH1KBm+u5lHyNfk61MAa6J1pjbqLH6lQeNeG0zWJW7ZHlB/EbkJgz0lCHqPzrp592dNsVcVW+ De5G24cTux9ICEu1x2ciJr1VpOooR4m68ypMbXChTzfE6FICNMK3LFAwxvF3Sycj3S7gJxHHNi2nA2TH [id number] /Ir9OHc0PfcYRmGIk2rI0Bkyo7NeNqKg0nbhLuiC1PtC0Su9Y+ pBWd6VWOZ8gWlcdkDO6SAvsle3JvC6htdIK0STEKBZsgc98rmt2oHFdctl1QUVlqtDtuBnHxzocTlP/ 3bdpQcpa+7oUxkhv5pZ2HhAtq8Rn4/7fWagj8dM+/r6F0vf1OjFHa08Gu6g+ 8wEhNeawVVRxi1LvQLaicdzUoA4iN2RrTw9fqe8f1O6Bg5iJi+m+ SDdfkzul8ofUrxe3a2NnQPitxpbK8hUhl5xjU/2OWexuoirbYruSYgvD+ UMp4ih5KdQYenGtg7K16DjxKykn3A4Uq5iaoOAW+nCtmXO4PcrpQ2e7l3rnpPhixHFcWWq+ 8Wy8i5EbKM/xFPvG7cifImlQ/ jMJs10MIDDeM5kncDfhc46KlwWY8lhEJluduMlEiMcn5ecBuv2KijQPiprUT4KhXpBlhZVldjtVu31hu 1LbFOFsE0H8Knkno7ub3m1pocSAnRpc6GCt0HLNsk0avD6mpBQhwp +H/E+aoO6ls5+Nr70zjxlJTILgYdguqrbEP9OGjAHk6tL2DLLA/BvcNF4BivyNofqSOWD/ ASlYb1yiacvv2c1KLL6n9t9tyvwgvbKUsyqG6k3qmsCzOtf7coAGv0gvTNqh793gqFw8LClh7+ 8JjOK3t8m0D9e5VzyY2vDLR0XX/O19If2rxgS5lFlYOm+mpQI+ fsxGwbdf7HAZQ0irI1DXolQIQ4e2yRY6zOelylk9aF6dzKD3Xrb9kxvmTQS0FyNn2WgEOqTaXYyDUCSy mhTMcKLaJevJkRm8umXpFj78rniLVZ58971B2tepT52e0as /Vf8EkBq1MHeGlsVPjHkuGYwnzrson2bDrdoPsB88uAC4uqc0s+0fxJoms+ JhmQ4VSfofyPYVU9Bw5i8p3+THew4uscmrCk7Q2eqUtWncwirftreXihT3Y+G/i68TR/ Dt1HaG2d9izodGpx2Zh5eFh7tMSjPTb8ga4LYLuM7No0Jp7AEM8h2QjhL1pMN7zyNnS1O/ XcxdEdX8xDPpEsrTjsiPqiCcvJfg322m7yJ4C1e2GT3etsChhKiJDeQ3n3mk4k4xbgLjxCzpOlyhlSiu 8G2pq7w1s0319X4KbhQE4M8KlX6oXlcz8NedIgrahyHhN83VOlBZc0kt4zy +yKtNc9bXoVdzNrgd9uxR0VDlkLwdWBUYI2DUc0SxpLsP+ z6WAdYO8a4OGLY7ep7MWca7vIGjgCPoUgXfftiur6x5isgiqgwauq2Qqts673zE4z2I5ppTLhr81CDi2 93kRTaBJrK +FZA9ezcPAISw1iqxp1k/AG/yzBZ7wge+BjzpIpCp7Ta7VjV0uiyTbOxNBNobss/ l2vy8EZRgyp8uwOBq5jtLJF05mSoyD2edIdNW5l74hesMxIDtFugz1g97S0M37C5n5RzhdVJdls94USE k2PMBzv2WBL8x4fCTPD1kjS650iaOk9UqjKNuf /iLYy/ MXOY3o5OykGzeE98ajdCdqL7O3j4ataR4HHbUn7YSkDLH3WEYszJ1w802fruIsSTXqBZqmOkU5MmTaGy 1mHmL4tdY4Bml9beh96mOWbMN7mJWgpONrGXJv0ibbrhr7querXsRWEhShkkbt6CNCqPvp1cm8 /xh+fg0Ph2kLURcz2yQs92qfw84ntb3cjI1cteo7+0+ 0v1hqLIBfwcQafsaHTleadAVhnVxze1Venhmuyg4p/Sf91XtA9F0AssGIFDSfQdu/Btiq8vJpqE/ VpGxZGco2HXVgZhzBt6balaUCqBw8pCRHZbwcRUWUe2ov2wIfs3Ua9uR2qESGHsIralbpbOQ6y91+ PyRs28NA3qb6MORBbwxsmiKubNAc70+ rqDq4u7penOnWEayiKdiq0b0wUj78rznc7esI34q8oZmjcD9eaK5HYpVRjszwiM1xBOwVjoo7Y8AbNDn PQrwnEICfPMrEbO6YwJzAZAU7ejp6gq9O3di6bw58s2km6dCYr16JQFe2WoRIKaQkLOK8urjiWlOXeg0 qclF 3XMnd/DXx7+IEq7mT6Vj6WFhh22+ fz4tvcsjVC0gxqJiEctcE0QdTYk52gZdrlV7a8QUs4XxBKwvL4WMon7FeFh1JvVY7d6U75UJpo6Vdqjs Uf0wayE0s097pIpqkdw4qOEa1nOzuRTkMzPRsXRGnESnkOREp5jiWryBQlVKxzssvYvrVl6ge20tqdbL 1vL /QS7WUBR++eFZwsVtzscOMBuN3cxAifxtI/9G8i51OkLlguWwz2X4gqRx2xzlwvRpARVPTaM/ P3W7O5RkuNBxES6fVE4hYPTKk0Y7tx2yuCeIEUDv7MEyiByPdY4t2Aqu1ZEvWxFn0LiJ7LeOHTQSDZpu EIlKAHk7OC1K7VzsUjsSnMCb1MrcfW69 +KRDCsEHQiVa2glO4N9tSBSkZN9N42wN0XsqBNwkHMXQic5saw0e7gDVwvNp09W/0+G6sbi+ dRRmuxqpnhlUA9eC2C/ZkjU2XOIzB2gKpjd7Jmw4ExyMc4BUlQP2CQXYx6lLNsMIMh/W2l0+5u/ 9SoEv3XWqN6QBsF7yI0K+ DeyHvSHwhlcFnXD14GYBcmmarYHtEFZ7LuTwWdoWhb7nFt0awPsVsgmzCMFv7gui0KJ5UhFkNieP2iZX 0Xx3repJuftsK7FeTMr +N/ LNeT4uya4kZBjw7ihsi83hi2xwgMegFGgeY5dZhPnlmaPk4nvpvXkBtNqeJtDPIrhOyPokxEGkQTa8qZ F7q8HimyXMCcF5nO3W097XqRRYtXjKttesUtk9of0aaKvMo5jYoYKlHCiduZCW +3nyyUrptSdreJ/Ln8Yc7nqZurWuekvWzNicXHnY7ujeBi4FjS+ b9b0sdBWULwxHe4bckl37I9rrCwLbv5avj2bheFcyGKHpclaM1H/ xU1w0T2XJXXlRHnB5M5gT1vPN8HA6lFrE428Jo9qBW+k5vnvYehVaO721hfy8Kk83Z71ymzF2UJXcvu8 +2uCz6Br9BR3J3p17uzEXciM34IGxo/ j95omozaEmWx5yd3xrNnyy6eAJPEFOJmJzhrfkmTTHvT25t61IgC4p0dpJyTurG9kkyrK3VZHz35Rt/ HEsE6EO/sAe3koZR+kw5FeboSQT9Yo9K4g28lGfj0IPeYQ6vK2dIjbRHiWBUElQYcdJnaMV1G2tOKA+t /kzPmAxhfInMxWmXEb4A2u8N6EcG9RhLTLe6F+BUh55vs77nQ1Vhc12ori180jthv5Us/ LsEunnGWndJx4ujO1iuOHM9xjc6xOa2poUwvRXUdQKidPRQAfZ5oaCfQ0xsyk2l+Bkssv5G5s+Pel/ Xs50eokZ/Dnwbp+cUyykxsLjsUDfQ5yh2s/ea/Dqy/tXdiiO7Atc0aNhw6nkl1u/ssEdldTJxnxD/ Iw5Qd47j4J4vtWp1Q8Mf1LQx8i4fsa6PLl1qfXt4zZKwZ3c+FT44UQcX6peMJ9cmRG2+8uNPgSK+Glw/ A24Ulm3D1uzg9g+v7mhDYl/ vuemCyzyPn7FVbRSuyEKE3SwpxLp0SAmzGFfbWU4AeOV9yzQVjvbMHCGdtfC2Ng8iBZn2aSNtWAkavx8 ts9L +yb7eyEq71JriZVZ5mXB60U5ajFk69gHvdgoGTJnj2xdqo8Do8fqjpvHly6gbx+ az3t00H7BGoiLUj4qmC1qkc0IbwcFQcTU0e0jsutb65qT6ySCnx4O1smK988x3bn9snb0o8uf7O7d+ WdmY0d5rjpQ+MPD+pz+ F7GaBA0isCgaFnqimW9r13WQk0k3h6MKggTVg5edNzGiuQSzpky0J5MFuah7RZho/ oGY8XiyCqK22Je9e0sZP37vYoIdtOLMzEX/lsl3b9P5I7zoI6dMq9jhiuG8lc+ u1o4ODTRMi8FvK8QpPU+ qE41GiSJ5V4CBTxK7JlQFoCyttCGQZUp0VAxQ0yeUb9D7sl2syhbOz3GHCzaxRZno49wJXJZuntRAG8b ltQeN0do4iob1snYHTRVVerMIDCVmwabcNlXwlcnMWfQ63Ret1vxulwopTOjRZIV4e +Fnj74/z6p9n+KWgtE+lyAeZ1ng05AK1EvGczURsSist6ap5uABjY6eHICQliZbNfWOnIn6cqc5+r/ BxnpT13smkRWrrmpNycps9JkhAxNF7DkHX1VP4wnFrKdU+m7lm0Lz9Qp2D8JENai/1lh8b3p+1zV/A/ vjCJXnw6gpnGjECtLD3SgfEuq5xdHpfuF/ L92BnLv813dysi7GrFspLo2M8Jbltb0ZwVP1Alxhfj01F8q5NvphY+ Elp2e7yf2TwUNlI1KFpSVXmB6dHcfOHed5Lo3FlnO8uJ6N48LJ8NuZHp83+S/ se0cnSQM68Px6dNBSVqV8qnt1kPdn0qa6IwxetMlbzcntJoWUlUVuqTOL5paRaCHckVjYujfSXWBdK/ jxrqvfB7lzu9MgBtDE9orAompLbdhSwaxsdaku8i/ din2oGBHai2aRDUZgluWDj88Ug7Hu6iM9GIvRqRq2dj0g+FvitZ+UMUe20K5HgEn0UE5o3TiYhxVoq/ earK1pxeOz7XuVeE5dI7/+p5ewua7xaHXBaFjytb0k/iP4n+GV/ vSJGgsrUQydRPP5y3sEoZHuev3HbgIvCOKhjiEuvAoE7dLbyvH5WGupGx1nqCvb614tHytzcX9chtmCs 9p /cQ6E2r3z3KrD/Uri+ jAJsrTy8MhpUYntwmpOlstDxFndlXOolbupduYmuCsph4h8rzUeVp17dCXgOz99wwLQ8rwFC4wEcKW1w oZwf4gv24l42xkG4eB8NlUHJneE7AkukPfECvqmAodYXxQK2A2 /uAI51BYME52s1TU3Hr58Zhsx5V9Zrj11gUO7qLmpKwpAbgWzjXY+ gdIbmsjMKPBjwlOVhVmHnAT4vNGGmuXk+1Tdxf6/ o1vRYkx1evKV4Zege4i35I6HjnakHEKOvooYbU72EfOLHbQIaimtlqiQz3Ci0+ ke2aq2Q3XdmFv193B4xvsBqKMki0eRtc8xkx3BQK5vZPlPiJ1tnk+ 74KZ86bhOosC2tnqM6W6nT7knMG4qp/3EZW69K548c2q8Z/QDA58WO4tjHQGB93aHzsqK/ VWdDMD6nqqk3/s+5wiuzilu5+PBa3memDg1esx37URXlOCiLSKRwAg0aKo6j2I4D6sYGawQzQQxGXD8/ Myb9tRzkDarn9UX94orbNhEuBOSgsH6et4RYdfOqwmR0eF5h9muiPdAcefNoDtOPTrfgUO3FDljPHAnn 4H6AGkNAgWeSZBsHWj0UGUF8z18UCnrutPW /csWl8dSTPTqbKYDWUZcnDQWaU5ZU3z1cYN1q+5WyfXihndNpL20/wDA/ I4c1OYBd81aePHR83Fh1Q0F18jVJiPeSYs5c/xA+ cri1le9wDJXaWGPWAi4YsAeb03Tcl4HDbq9oXBGOAlGlSitvZNxf0FXr5HYCEEcHRsJBaQkfM15OSdrF FASpw4AlptYw4BJiibTVCpES30 +R/a6Lrvsz27bISh+ ic31TP6JVK5BtlHS856vFiEnVKPhSyQKCvJxEuTHYjAZWqEUANZE9oG63haBUqKigpVWAXZ3MPmv70Se VCBpNrviZHofMaOZQ83CRC1CB1tphgqBARa81kv7d4 + rT73wmsr80z6ij6mZj38ugzNIdzPwDLF3p7SK9NYdY2dkcAHDPBLZmUEJAfpkqbUG4wGemgE83NvfuYs y8Ir7PDZObyWLtuywm20a8s33AxbBdQmSGtrIVCQxUE7gb /Vj7GIPuZyfdAPYfojc/K5KYRTmApuVy+f6iwegYkqWPXyJorUyYOXs1Um/ HI0Uzmg91eUY0waAtTAscJS7HpcJVTpENOsoKEILnB6pqQJ4sS71Lrslt6+ M2w0kkHbh9EyphwxrBhl8WQVGCCBdmaIsO+F1sOatj/PalcN9yMJBMYrx06sa68pt6/D3qHP05o+ 7ev3o+uqB3NGCl33fifjcIuRtqyfz64HtAkxFLBUIQOjTw/ NxAESvB6iHipRUktKrCuusQMuYMm8XyEneaLPJ4WdImejJWvtDcF1ok3CUdZ/aNqy7C/ qkATxhiA2SJewVt1j+K/oq8s2rUARDl6i5ILcShpZgYBhSKR9qjUhw1vffEvCMEPvXrGH42pwG+ a07N7eu3CITby8SHfqoj34Q8cwb027mONl6uCsGavxDkRN4aIGwevOEVkKIOsyJE3LuDAfHmZ8ak4m4s / gJGO8ph84iWq2Rzf6vSWZf1SQAsRXteNO7RFqOIyCztjTfDp4Rg2nmuhTqIZVaCxJqUxu3aZ865dqMe0 ehzdp8KKi453y +qaBalrrcocWRUX0cTFB+Znfhqgt9KtbHp+HwsQe58QHpbdjjP/ f37nG9225YPQdvthYu20bEzYbvvS49nZe06BOv6a8AREjRrlbKNBRJFoagNtuSBEiP0nUIfYbHObpDnt AJNwmfRKx2lG3WqLWAvEh39pHIjmcQm5ALG8u +QPMgll97pAl4usYnGFn9pVBIhBpk0e+jvquVMGIODOlXGWn8EFZOe9tr01OrD6+ KYXy7ftFNnHEUVI1R1McZmH8E0Ecl3gn6EJNOiXq40aq7Zcveok6q+ hievhghTOwM3bL8hrwfUd3SFgNokJ/ RVb37KeKih10b20W61pLH0bAFJ0jA0zGmW8OhOrd1bWFeRIkVsqr9pyLpJmT5jGSy8NiYd8YK3Z44HGh tmfDeiXvp2Ha5RIs + 5wilyMgluuLxFGEKqQdZgIOtPjW1mPYEQhdQA9MUgiNXwnyPTevMnOaUUlg4sdtVtQ0afagMJga0RR5l 8ze1 /AzWVlkpBxfaEOrvu7sr8gq3yy26PV1UYq8w3SIV22ECPLONJbMa+ JxpvqONxZHWQxPWQH0Vr6A30qAp2myezjYYBa3UqCFLfXgYvGwWDTJFJxf1QhVNZ9caeIyJLR29PGex6 /VHQJmvfKzwNIRR9EzlPslpT8myQPeDlkLBsE0tRnwPIM+nqc/Y5E3ayol6gmtyIb/flq3aL1+ ZKOUgR0HuhOhPaQV3ZqsYMpkpt37ajpor6xXVIDenSe6IT1Yq9GHfmVht1Xy4Z3mOZ7IHrEIxn0vwcX8 OSS2BLuKzzXgNRGoJx5WLJJCdG +QSz9vwvYACjJ8LOeABOKXHWLFIkFUGCxnh439Jx+PsRu3ca3n97FZ9ip5n1+ ZwRmPfwwKbwRN35c45QPSdyoognEM9G9v2GMWjb2WzjQhF6DGmCRsOPSZOluEinXYdm8yoq0gCjqbTUj zAoelJpexsvIBDSMMVXaXRME7xK5nw1xpz /jJANZxEPJjjVXovxskofvvZXgINS4ukqhevKSsxheq5893jorbjEjANzB18lyXa80/PZr+ zoya0bw8lFqIZNCTOVx51cbjE4g8NOCI188S6fxaFi6xCPvJmXGcHpYsBqI9l9HHNkWCKbcoR1y54HiI CuIdyB +kMnwYsLvPZ9mazWcnIqXMExix4SGovlqU1CM8WUnxKMjD/KRyPQE+a9yeO2zfm5KF9ah5mq1id/ Uy0SXaGJ0BoczKSNmspp6lennfrwtOfuwyl6IPqZ8HfdfykEjTtRPUXEOw3SHAgY7ZSWZFPQvAxcwF4u oSssRbM7jUP8PBGC + H2LIKR7L7bPq9g4W97THOG0WBhABB994ik9JjPdnaX9R82rTm3VLJsUQiRky0Byb4AxwxuRDtgmXXU78 dn2o0eiELcs8q /AF/w/qVC22gMH7rHxwabAV5BQsaC+SrCl5TnfRldtSFnBD6M/ b2mzjHqU0qxj1yWISMeZfQbtUwGSjCdmFPbEzUlSZHowqDS+sixZW8kvy/ 3ywfHCLQuSFTEjsqa2PCOmGqGgcg/6MLWfRWdn6dc8cHkJpPmHb1OHNaH/ MYHavJoRiX5761XMItHps8nsBhC3OQS8g47eH9fv12j62k1Jy8qPs+W9/wYotf7pL4Bqit7Js0X8Q9/ 1jTvPqQkYeTP6EoITiWE8ONpxHLgs8DUpHA+/JX+hFU9uD4eboUBhIokVcQYPLqu7CGP4l/ 1AWTX31l98mnFmnOLo1ZUSy7ZIuotSmxoIOD/kWRwwlsEZ7rLVczaNgzkQ/ vEho86ahoizgREjvWqmTMEmqfF6x9036nc6sTdfvr+R45APOM4YTzwkfgz/ tOOaeQcoEKCjQHdojDhzJQHdh1ra2+jRweTVyGLN5bhU2bhLpx/ FWu5ddCd0iCHjXRxFT1O6SbLnQY6wwHMACFjhQxHn+ PQe802UkOKeTBX255wjljRgBM3tR5niOKsk6G3YLFd1mtIwm3yK/ e5RFK9xh2zusI3kUnV0PuaVzaWZfXTQ8Y3S6vsfuhYfllBn5wAxMtX8UAAV+ CBFjFL0049ru4D2EdTIFyxtbsSW41eBKvBzPexLjdIb731iT1x10ME54wZplc1+ wmexqp6wobk3rk53UXuf2ficxmjbD68nmB+Y5quIUM2x3EirAvK08c/ taPmPICLFcmJrEj67X1BLByYLggL4SMuYeTxC3zzW0E2Eae4Ufc/8h50tsy+ 1SKNDoa6OivXafqbvhCe09FHb62ADnfr7U04ezvCWLUikY2QsEcMCa4DXUXv1GaDBUTqCndk1BoI7z/ n16Qbd0pb5bH74t7H4rJ79hDU0q7d/Am8bIRNTvaxxujMHIaESEjyY96ineSbumo0Ww2ZhN82UobuF5/ x/dsnRejbaqWtQFqNWsXePIVpNLvCiCPwHU16rhJk/RD+ 47vCqamFknCNLZCCxXZFBjPpt3CdSr4yiLXitn/LBBya/ UCcMoYvmXIMAjmukI9sRcdPZ1WJRkRwFlVtOGINJ4QeCyLUuWg058C18IYA10K3O4fz9iCaI5646L6v4 MO0bP06s7F7mY0Jiub /mfw/r7AaTkcC1musJfRsGMI0CM8hFHIaaUCRqOI2+bb/ YG9mws7txvcKqrm4MtgBs4BCJWHTk6qiaPUy18mKN3KmlgKNEQa3feaTElJtyU6bl6wydWLaMN39ybvq 5fWLIDFIXpklFmv3z /yBwuS5nkgiHkBWfwLw0gsNBkeMPjeDDsFAC7PeXM09H7v98E0lwfi+q6P/ACtf5/zt5GVwWfwZVKy+ y3+uqdb0VcIkryUTQfR2Np+3AQRC7fOPDBTIfZ+pOaq+ ZfaUZXWdFWYyNITCyRvT3KQhAqthKJgDHDTaHGtaXHB3cc1Z9SuGC6t9oxs30isHkKlbmOghfm422UB9 aYrxXNX57LJgJEEFUsJA2zB +1CTeekseDF0i81jsmigGboi13sJmtd/ HOjlL7q7jj0LwA3iWtgF02yEquOqhxUgbEWZCXxtm9KEiUhU2D0+F1sVlwM7/ p7TTHNGWqixqRMfyF0oRtVxlfX8bMRZSD/ X7pW3auCfwxQohYBBXnDpJIEVrglCNKHJcNCDjpPwt3Rn5bMWWYHgvGMKpyaLgtKGxWsEwvAejkWfPXq o9dHaz +t9lm12A8UCIugYWCkoTZON3glx/F0Ide8cUbpzsK+rPOPG3CxWMvTWa4ZcMWHMkHbMsfWcj51+ FLmhJkqvEn9MlT4AAQr+ KmoTiPWUYbpZebJ7wugp3exKtdq4w1PpWFt6L6oHxD6uYpxSOUNuQJQBMbifQMTOjwxyZ0+ KcvtOZnjvSm74DozoXOyfpvtAk3VydvWvedrye/ uP1qCdMaLewG5VPEArisdgf6jefm0qaPKggN6jM4qX8BoCI57BV8kSREm0Rxs5lvvYECv21wuxYXdtdE uWu +GP1cohkaAvUZnigDZ9GalSGKz6UZYtSnQyhJL3HVLz/Fvwj0/ XYO177eMQEeEuz7g0q3KwnQV7GkjnYKKa21RJPzOVx0PmiZnGNlfaeMkHBSoWPph/ qVYMGwVbhU0K7pBA6JQY77PSAqmn/ 8GfPMLp1uJRiy6oYdWJeBV8K6r4HaasSFGZniOCmZRnCghtQWEnVCE44HWdOy/ agtOemBGSTzQpI73y8ea2xAG0jLSAjiNjsXRCZRwma2zDyAg7PvxuephhlSUstuMw1aofw4c+ ObpaVJKC89Wuw6kLMR/6hFpaiCWmSch4bMsGRZpngCOh1Qhmr6GyIpTbQ+ Wwt9hMi5HGikYc3aXUVfDa6wcuME57EhBhAiafUUfMJOKn/tR+ 9rrNE8NvaYwCS0em1EvUahYT01QTEvvcymPg9d2MRThSqb4KT/Nr6K9cxwMy+ 5lpDWn3sW3NhFcFA6aa7ezdxZT/eZgViPnLGUDawJz8/uXEFBcpk1TFfkzDR7RHeg668d4c9BxhF3H/ 8VbhC2aCkzzLU9pnJclYYy8JAd9qdcfDYlwAp86m5Wrjaqj/jev5X67vYLSne0QiiU+ 2CXsOB2mzhgEOL61suanqMDkEyOKuR5Hq0ud2z4Kz7UVSGlZHiSHqCNaK+UAAGUUYVaw9eO0jV7e5+ yxUdewr94L5cskCzjTg+SPPVpNnA+ OCceULQMPnxPw652ipIbM4kUgRlarGoayGMyq7PEBrS2uRLTXpo5Z4WmFDW1sEHtn49CK539f7v3g/ qHBeQRkEnkup8jyo7fK1etCHwj9nd8L06At0Cw/A/ oJDdOpt3OGMIH0gMjCWzXKZ1SXaRydcGnSPsDEJJew+ 6bKhXk6pRT0XXZUeQUCHTQASZSRpAQvWBWy2svr0Z+ ZifDL0h0y8246jB2szHaUB4g2gtkxXcHK7F5nQDxnPT0BoPz3O7VKQB6juaT6gYRhF8cGBfATwnLZXZJ KlpETRSTAuVfBpN49bGi5YwrtjHhzKkV4Yu9simuu7por1lf2ONIL59zwLVMmcfLpyu +r4C3d8bkem8VF8WhNKaSt9V8sRriZb3UZEU2jSSGEQFgHTNBZLRrh/ JIbKpMKOWzJKCGWzb1fJRg0OU9rJCoSyGboGbT2cYzlFDysLIMXjZyJbZeEZALSEfqyDM40tMVfMl62E IwJ3udd2ZoZh8IEOybw7YF57Dyb /zX/Uz5wll8ihyefFep+ryq8R76HA/O57eoeSB1PO4FTz0Qxy1MBlSWGIAY72mZ3Rxc5B/G6Q/ 1DVg52K9ioc7xpvPCCV+ VOwbORXRZZo9jQVDKebSoZfcAv3yZyHBwKwEwDNsYw4BId86bHw3mlAhrLQC5cmtV+Z2BBI+ 9Qfa1u1WvL2fZfmt6tDn62a4lU1tsxfv9MaQftPPAiTZOVLX5FhJrI6RUfIviDOxkIVijU7a6lDrVv0Q u + t1V2DcZDzX3wbBMqOuSWmz9noqJPDWMff3xq8kTIhp5Y5DuBRN8xUFBXVdwJdlyKegfDSK4WFRwACMOh AODj8xX3grR5wkHP0c +UMR5zd+Ir+F9Sv/OKAO3GgsP/l3PV53IglXG4HNoA+ LODbVXG9T5HKfKOu7IxmP3CNPrAOG9mpAJlhi0K2CSEHFBRFfcI1P9HrrXcLEB7Gm2UOAty6bt95u+ 84P1LF9UwjDMv7afqhdkmmmPzu0hcyyKiVzHzgAxHQQDBSb4zhiw11FSgKA4rsvGdw28vGnumBFlcTK3 Gr4AeVlPJwAugkvmfxo1nfui5iDaoiavZ693MwoLhVyQCNfrBvoa18logXSlISWFhe0nQgskopRpphuW sgc5K6w eDJ/ X8r2wIlcMEOUIxcgG2prvnxpA3vVXLQOer6HRzd0FvLrwqPPndR4z205szmnO1NeDpPBKm4OgW3vDZMf Ajap +DBXvNXXjPtnJLfbdbG2S8FfRv7+7UJ3scZPXbMYu/NSh6nFPDJQVUkjhgWMj6QklzhCHabmq1f+ vVFc5MftOuLjbG6I+ 6w7Z8Z0EWOz8brh65mfCbfrDDk3QLNql5EjgRGZfFUI8W7KolI7JGYNVQDDliE8I0uZu+ 4sidXwvCXAKcnH1kNM3DkvMjyXhLfNERbvxpG5lJXPoWoDhdlrFNMaa8WQ27cLWCzWZQ0cTECd5RNZVN FCmY1CZBERUzmKmNpb /rFYprK4iXFclHGsRxaheWifCkasTzLqpejx6lte+u/X6yeEfYRf9Af2kBXgBHQytA6yPt16+aO48I+H /Q3315f3OrD2bt3eWLmRTAj9idQikQ6JEHOhbOEWJzfKfECIO6HtDqgbJGrYWvwvAwLf3/ QMhqMMb9UDUKudPElxmyucJOCDGYozWEhKb5uZHo5yqoDHetzWg3GVhjqrAG4i1UOX8wqtoJKvFPVB4z aSOD7p5t4 /khbF1o4kK/ s7fjWbanTCPiLApN82NW4jfF7KZFYRIENhwqXp4HQVKfC6bW8u854ghw5rKDc4PYdCFEr7Xfap+ ACvy3XyISe9W3yaSC2SYi570Bkm8RyxrmtfPY0+ d7pfIeaqWvtTVnAsvaLRNNXc9hdHcnazXK83dpaxsuxrwUxH7q28bkiKkhnRuoEQmWnwHrW6zEt4VruS pVKAIV58 +g8d+Sz2jLXs5CcJb9OpoNsX+z+hzYjGCBstFoKyqhthCWAj1t506Xp9RT7R9S6Xnq0EjzqicATia/ SgD9wyzPK0pfX2yhucvrYhqG93+ Ds1kWxtnMQZsjPKEoMTnyxTZia37RywdpikBsiiK3gDUkIpFkUujASljk6XKfspigBVtjjg4FPM3z0D6 gtr8tqjW0qF +LXL+g8mvXeHQjtHxZsSSvsL6vW9xlnEsK3WRbpzRMGw13B56kpb9c1C+ OSBklI1xbB0ggb5esAr5S7kZKgY5icM++V5McmBPLEAUGXX+ 0Jkkrb4vrlCk37YaEaoy9T6al2j4uzD6jnx5tdssGNV9QLGDCuyuwBpgJkoN+KNw2J9h1LkeK2iop6rr /iHTFeWRW+vG5on8bd2cawCcVp3uCUYYdHsJyeGo1UAHIf8IH61VBJgGk+ fgkevhoCw2zwbgzLBfwbozVgKqKzYieqdkKYRp2kv5f0DloSfE9O5y53+27Zho4Jlf/TbrWbz+ 4muKwfnJtKjlaxhxtfbN4Uw0BCSpfSqu1NkWvH+Wp/PHS/hl4r8U+MWTfoShSacFp4o8doNplUpoM+ TyW+zXMjRxGRkYSFnBiiUBAGlG0/Wvxa8O+ I9KUf2CsdoorIl6Uoe6gFmx4M4KiBdsw5YbriIzmPjxOHmCWxjKoz6lacg8XH9O3bcssWmsi3xLPhj3W fUzGHpJgbM3zQkb18hCziXXdUuCpZnocOv +JfuuvqSzEKpJSEhS98oMWuLZbfy7MKocedmJLKu1jpAZnmHf++ tC1zxi1naecrcb2qllr3usSrsX5Gzg4kAm3/ zScUbfM3gR2ZhI8NJH4Bgh5ph0CKWwJsVKtJbBwcOqEFLFD8RMQdWGJA/c+JIuw4NYQ+ J1E6VdhlRsZEtt3EfJzgcMdbpUrwORml7EDSdEmSYOnXQ91O6rlBvxfW0DjLbHz4cbKb2O6q9eCPfVH2 RIxSzeTEHeJeLZCzJXqWRqlUWlqv5d7 +EXo2dN79N+OtMdebGv4R9YW3dR0S1iHbiNi5ROnygjzgBJGnMwKc8IvfO/E2PS5Sc+ UDjo5mzf6N24sBQ0+fQ4qiI44sPC+SXA4mAFKjnfF4Jp2Qoz54zBJVe449+I/ Dddg3Evfjd1ro4bagtvOQtt25BVYZInYRbQ7QtnvrAir1M5onFqcC2hC4oT71/ eysbuuXlK3Gzd4xGx6RCitMa2gfc+txSgjIDv5tTGQXcLaQaqpQXfk6nIwmdsxe+SV9u9ks+ giGvsP0hVQVE6s+ 5asV0ezTTsnZ2nQxfhxUThVjO6VZUjNVpiNrMDgkwlpBhT9H4TuzG6efuoxO4cn3gNjpBPhxqeLDaR9l HtXnV2cMApePVTvp /qMPom1fPrC2SNnTEHq6qc/ ov5cNwQ1d0Rx9i0HhpalBzKT8XLnPpZ7MPllcpdyl7h3wE891M9JH5H6457R6uJku/ QS7KN5ZNtaH65RJXjlAdMS9oiRj9otBmKbB7fPOMbCq+W69pNASUmgK7+ 8LMRfIPWCj8dqteKlwUyO2fnKGIguesf8WICf5X1D3YqlX/ KZ6oxmzr80zMX1sO5VX7g1yoxlmSWxnAoOwEQQNTNTVA430GwSwIVoLbx0Nj+ Rj3Or0fA379Ubtc8nElwMtBi0EHIWJCBQ8CioNRMq2TDUQJbWglLwrju9fPvGy37XCzDQ83G0Sw/ vUaPHmc3gXcqCeG5CO7Leig9UA9xmzxSuD6U2LuGysg2K8D/pI8BL3w6Hhe1UUnftFuTedZ+ 6ERSCvfDoxaxEnpCQBVUxQiPd6P0u+ WQ7Rq1o8jLomt07nJbR46ui2rUNh3vAjqg7yhIdVWGike2ml9sZidfjwWa6u/fano/ ig8qFbZ7Lc8Lt79XDoxJ3p3LVL9lXU3yKAvGNCNoDKfa1I6+ gs0L9lWE8mJDlIx4zlzPQ2a5tazBnfSnLC8Jl6u74HJVlbSxG5pxIZJYOt102o74hqFfykiK+ QzDCSpYlOFVwpOXPJcso+ xRhYDjy625r7xtd8rwiJ4P9QohHhDkDjvrFwB7esKpkvhaKv38oqArvHcE5E6NMEfVs1oZYzXKIGL2fd nigW2LfeYEs /ZIsHVKQT6MxkwnCk9vacp7t1eZO9qjnEA9SAzSmn3fY635LfzKUlDRG+mbPsfS1WoNIM/ SZLjIYqGr4hqa4091zshpAdl9lNh+o6idoabFWrrpPkro8Hx1FRdQWtplaUk+7SGseHfSAzEP3Be/ uXLJmh7B/ j9IggvfM5449qe7GP0RuC2qymQedM0TiejySqXYxttS4Qvbjo3a4bb0NwqNtPRXf2PAzKKnbihe0wG2Z DkAgpUYsIVzk9P8cvfYkHjDfkmfgkAvK /q/ HUlwYmAlCZF93cjN6Ir5n77Oc5oBMc3Xdt9plNjXek3UyOQKptahfw5mzKoVIiiPzwzcupnmkc1eJtOV +ZCVjfndX1/V/ TdYoMMdJUqTtB5mBK7GNWb0LLsfSTAGGR2cFUhyKw9SlMyXDths1n2tCSzG51jKwO9hi5Kg/hCz+ 4LLySveuqLRVvrADRFq25sSHMIzNAKLXLnJ3nowEPGN4+KH7wg57gkbPeIJnF/ IUbdtWrk84aNjI9SXBA3V8G2oW+XOoVw3i6wyQGxIjqCFLgH56wT5fxcwvSfbe2XixtmC1b5Xku+i2+ 8j8jfdZIYtdVhMkal3s0x8sJsulONddEQ0D35R5Mr0y+m5/Vhfh0W1adPeaCFF6sZA+HRCbiS/ z6FWWTaoiPceHm2bVlPKiJlfEKBjVkw8kmcSBOayIN8O0hJD0L5Lq+ PokJ6l7H9e4P78ODNcJXFAXJ3e3p7rj92v+ scnY8jk7VUS8Z2dMm95mZAnIY8XxgvjS1u4LVEseyRH7dqr63FY0uaYe2P+ gfKNCjzXazBPzguprC0UxEK8HL0uV65PxMwulA95/wlb+ fosrV1Kx7vQeXHFQg4Q3rbCjesBnelVl0vbZDoTME5YDYfxKPKpegQ96sG7pwWCc9wmw6yNxdM727Lez FrPi4jdPZGQk6J9g5V6hURhHxcEd0U0wUe8Zji41 +Bmm/CY4zYkb/mp1ZhF11cW2hQQ9uvoy6TbscelssOUQLA6L9ueyoNfoF/X4fUPzcoZHz0XxAYi/ gX1L6Cbghui/mk3g9QLdDdgT6J8M98NriL6++AxM6g5w6Skf9jU1+rCqUq3kd3dn0vv3PCYA2pdQvi/ eKJyFFeBo6NOi+Z1ZemFmu0mjPqp3zh1DVg0pgT145tet9DsOsBLjaDn6127wHlZWaIW/ yC90u6h2KDnw0HG0Ut+ AFFPkCYGMKztx94tbTGr3CXd5Fwcw1YxEy1JXrruJuSf5Rw5RNhBfXt8t6Zr5HvcJdsVEq798EeGTrSk Je6ng04m5c5G4 /V0WjrPnFKccVoG9wqiPPpRfNl8RNsYK3gnnl2+aKU+GqafBTZZkqgNjh02HqUgbP5L5Ors/ ciE6Uf0AYdg37Zf5vwVwk6v5EhZxgd5Xk1/zNpxtkQ1dVpGTzgQsDjqQTyuw+T/Vc7lxP5wQTTuwp8Xg +LsV1Dqk8miERC/M0v6gRNru3Oz9t2KXA+7eXMSLgIcvo1hkDMnfkg2m2Tzom0RpB+IXgjxbeaVPd/ QSzr3qtRH3nFjPyoUaH8GkISAT6ziQ+EBO9sbcdQ69YYWop/ C2H1daB7mXht2bIQZ6qpocaM473A9Pm4kz1keqgK9V2p46/ tXannPNS00u3yrqFZFuSjJohGklZzEd9svOlIZtvd4pIcV0tiEmE9m4v4Ap9/ DTsbhcsNkvp87Brdwylc5JS5j3VAb2f1VuNKvKQYcu5tjc14MXwfjcPxwKAvLNilUip7Gzh8k/w207TV +MnxJ10+ BEnV50Is5lbOvM2NF3mce76CrBZMdUf3h7g0OBldj8H82ZzTIWHItwbz56jN8Hqe2WfBwcL62sca12Ol SaX6GSdtPC6wQ4cipdbbGi3Rq55Myq3dmzJJbXTcL +0IBvXjX4nsfUqTfy6XZ66/xlrOvfEq/ObOKuU117V+Mfk0NQbAcATgdV4AS3NbdFzQKaP6LEr053/ Wpzmiw8Ox7zaI0IKY7MoFQ46z5xjt99/ 3WIToVxHw4sK8aA8v3yP1R1ixYxKm1Acn2I94Rl2OXrdxTCLkyCVKbgKPTJrHRxHIguZlBkJsajGigOS 83KuS /micz9cg1rUfCGb4nvm7ZBVsknSfRgggYrOXVXvD89HOaSm8ViKUa2l3q2QMMH+CeMz2t6m1p+G/xX+F /t5wB9hr8/xnoun+ EBIrlnLhRcEMfR2FBnzwZmk96wk9zC0SlCj5s5EwiuU75Co2EE7p4gLqHgIly1ETvzfwLOzxNTrYo3P4 Zue9EXPgt88k4gu9bzMyjqDvtQfyPBr1T5x208zwCHZX3tv3Cd1dAEkUK +bHiTw/ zVvxFcIQnHn4D3fQTwIul9IA9b0w0ugCfp9lpnkeyeaGfahxH7vT1eQ2wH1JlpyKaDhKwXiu4Fwc0tL9 cFW8DDtIuitlm3h2Yi3Q5coplCsxMbVaj0Mvv19f7ninv3wKCNCodpYc40Ud4KxiGWkVjF8HRB5S bbqrO6nPoVi48R3QmjGL/ riso7zuWXndubuj5pzpkdzhJy4CHfzQlfPFmQyES1EONfsHRf5CdeUKsnWkOJYeF0c053f194+ C0mYNSCpt3uWhpq6pz+JXtgPmV3Kj1eHdY3oYe3ytzP5M7tQBFRQyqTPpe8prB7OZjc2XM8N+ TXibXfuYOKy6pe39i+EhwCwF8FxHZa7++zGChCjntaRQCqaGL3kjOMRz3cHRZiLonaFwVWv/Rao1p1k7 +8R+VQPYexm7uLlm1zj1hIxacky9MOqHV9eGv2Vq33eTH6usYNGJwJIognmj5cy+ 5m6ZC2N9n4FvRucvV3BjG+ 9qqmV8jidv5OAWh7pavvc1dmCpm4HIg2pat8jf2ZB1m5HyTuqEHxYhmJEF7VLcmMQFWbCkgmudMKMpum OYKOxioamVcle0sUd46iDiRIRuBA3bpXROQ6ZHtKgcGST5Do335XoXzRkfuIKcqF3IEXL6HE2o23riiD +eeZ2s90MUf+ILiEj4d5qewPVookMqBisGjuLHHH3idg4cKnXHfiuObC9YsJuOA/ Tk7ioy6E5NOh5U1FVHQjrl+8igA8eoEYOJdXNwbggScJ/Q8dMsM3HwmQLuCuRFlewGvebJOJy3GvN+ 1Ydgm01i4Yo/7yxgb8C98InuNsWPJIdwJzL2wdDupKwLirCVmNwFhFXxaObLCnsN6uzgvakRtn13+03f /BexU0k6US6dn1RuN14yaDmJ3BYfvgp7VCAS8rOskLHYP8voGfrBdEHMRFRi7zDzeClF+ irGlCa7er8ncKTlMmseQHt8c6J9fuAdoh6G6kFjFtunghLKS8KPn3QdMeDl5x8rKXfBDgok+97OU+ aUfTmTTTPxU+ K6pQxchQliRuhIsGiGLdyRXEtvvRlWrckfPzBsHyhmbR8ojbfRWoAmKM3htTcbexUb8z2Rf/ 6XFOe9S5sesDy6fdW2sJHqxhQcsSvzZEMxgoUk76f5QU5gs9g6Iklt0bmGTgpQcoisxxgVCmslhzkau9 fWmD8u4c +ArPHeR4TW5fOA3A2PMWO4Fpi8r9nGGiU0Ojqb8JromLrPqOc2ftPqqVcx9kZ1vB2p6I/DTW3+Hdzo/ kETvP84MNOdp+ jnOm7p82XAtnj9rq9Lij4w7ulZ8Ib0lmgNVCpKiqwi5XSd7G7haubEIzpbk7TKkx4NaeJ02fgy6ui4qr qVo259otycwBNjlJmSI8 /jjJJpNFLZY2kutYzNLBM+1XmPGxszSH1VJfRYdiMWmn2l9X+JU8W8yJ6kqcwu5E+ ACipB0atP2oxnnWjV7OZNXkaW2VOyt774qFj8aoxFTKzbQ9yotVt5IlEX3Lz7qBE5McplRwfS+ VUnlzRmtD8OpBhaG6vqgT3R+j2+x06xrtcIR9xpogxyfUOLJgBLjEurQ9tuVN7wKc6F4UEFkOw/J7Q/ 2jn+Sj84h5J/UCT0q3VgMKjcpxApC4oj41asQtuciYC8pxJja+nl0+ 5so5oOLoGPZNr0JwVGOWcV8F5f4JAQu2a/2W/kjlt79O8TeCrOY/w9y6i7HP/sBTAQebO7w+ sf6ihiz30907xL90yUrH6NHj6q5tR46gONAjbBpiPGoYdmWjjnd5IETrHve7E0mH0gwWoDEFNFTZ8p4r 4ds7IsJL5X6kknMwnWj9OUh0QOUSrJu3R4d3pwrEuZBletdDevTSNLoLR5zLA4MsPf5Z +Mvjw/T6yBtxaq0abe2v5dFgFyWhIT91O0XLsTBnMa1wSuV29xzigb7UrMzGf5eyXAIdqTpZAR+ tQfDnQ/ wuwfxJ86bddFcocOZ5qnwoi8JG2NDZ7yzzkswnt9UKkxGVyUKhrn4Yv8zkukThxkn8GxQg69A3L7D6s0 7VGz3dQ0okii /nyopu9ej/3wsjQX9T0eYTe/o9gLD6iZyZ5azbn9eoYa8FjM/qLxAmVesv5DQfQ1z7KYUphE/ nKW0ayE56rdcJnobg4up24ncACTdJ7buNvL86ft7y2SAZ1faHfskqGogKoGwni6go5kJ6ZqOgiIkpUg2 z5yfMQv527zTVhj1 +ZcBdJJIG20LStKNrZitdvM0Vjp70vlLwm/LUJ5ZKbjIgFNcOyrkoX9/wgy6VhcRFXe/ jFLAGlQx0XCeMjgpm3VRC6z0ul2o1NKvMvWoHq55LVF1p5EweeLYf0/1fXfD/fj5MvIGCT/ uc64uUikZbjjQHf6lc5i3tlkqGqTSYkX9W9ltIuEGbPxb+ 2DsqiG8qvny0H5btUvFwQiE8W1kvL1A3EHQ+0Atoc1j7+aziPaE66HN0f3dqdWDKE4GY2+ FqNTTXtlI9cYKF3Nv7C7LdT/NVe7u8fLwM856vFc1VeercIz8jEhP5oMqLB/ hL2Cws0nx7W5pE1q5XGVWeCt3w9YFvoEUO2R5c4c1oJscUqspzk58Ly3mRZmM1FCO3917iSzm0gbav0w tsZcxIsr2xpUvcB +aHu/W2tI5QVFc/ nUEmLvbQKPdmlG9eOBta4k7Ld7RkRkfRwX98Ed01FgCabHBOZOdA6hB7im003492cmouUI/ jWhyzf3FthhqfV47OYJruBW/gh2g7lFM404J2ul4LT0qDPTd9aS8E7OXoST+MA+ccZWVmY9bR7e2q+ PGiTxw3Q4I7mdsOnSuhwXT3f2JAfE3NZnqQ3y0zbegYn9G4fTCbGiNHuc42H6BtkKJEm95PYqud1fMuR M0J + Gc8XkD0seVr0ryNcN0a5ggdH4z5xBpAcAF5dhqz6WJujmW3aybWDZt65CZfDnopuumWgIw9qyDQVm4cH XkAGodzAE9k4Tfv5uPOb5z +gy+uGi8527FlLvU9nDFDg5w4AvqvFWebTmZLqKk7Y2Zmnh8YllrXatDlHg+ md8EiKcwjn8miAOPDKPV6N3Xv6za+IdbgQ52OcLm6HruU3oBcHou+w3tjmCuk4U0T3raU90je/ 0IuPBGs+C/zO8mxStp7ta3iK7mEOBHwsbYH6x6l3DCPv2hIBbF4mFbly252/lE7dShY2fiaVcrxcHUq+ ubaX5b+CVr4c+ SLdK8dKODFkdiKkIvn523w96NfwpuT0rOyy9daeuJzlS7tGr6dt86SBKaVwh5YthVv20g5U1sPyx9b5J bnS / aehcpBaUiwSM9vcHJ8CT5pqR8zBYch3mZD1lKjbdv0dk6K9DmS5Tk4hyQ3kZx64huFCmz0OpZg3fWlV9 70dZbrsv1jnm9PG4owawriLYDAJjnijWB4Ythy4lVmsOLViiZSR0kzUx2U4K90Tolzd6wbCJOb7rOCI9 I54tD1iN rkMzXqkxDzMJj2tuJ2eK6ea6umgJrbjALTOGjQ26nN525+fF/gQY3KwQnU/H/ tMhP3c9ljLJkLIKpfFsdi4vC1OFarW32LiBf768xbLurrvY1qRe5sq6oQfnNDo8r92x+ qs3sKwN3E4I9OxdfYfiuw2bH9/iO41+PUre3+9Tu52W3hnqo0ayS6z7qHH7dkf5lDN7DEThTW8sv2+ Z2seIF+I81stwfRMimCTeOubKf5633/ Fj0w9fNV7EB8O6jQ4fcp4ncEDOoJgO9Dwx8hf5mEGidXsH9zbBdB6szxnPo0qfpZoS5k45QZgkaNnBGv Lk7E6lCguZOKpysUhFluGidgt8rot7T /zeUtTqG9crG5UelI14vuPu61RfQgjU7g3cHsicn2fbz/mK2FzUqE5TrtftOx3zzBxCK+ 0UcV0MwvTGgtv7qOpj9AaaxwGtLBfIMDuR0osIIyplUfD0oZkV2zjAPgFb5RqpMIySBR3CzoUrb65S/ wApnt/ Kfx2qvDr9bmJYr1lt659pHzt15in30l4RHxUhzSMZsNRN07QW9mfjJVPr06JJ1y1SOaKaU2O8Cu3cTLe FmQtUWdEsrzUFNS46P0aIQHlo9vmwxbXS4RHTHCpcHhEJH5RFusTvfKy0BP /nergx0uUof7/S3oz/QAOx3Cg8/wB3lsr/ IPFmvh083n0yLznRuj4Bhkt8GeDpEdAH5xaNZzIApWt6NF1uq3UMjX9LRa8Ml73wZZtCz6YzBatffNq6 GHGGkzmzIzjJRmxejsf5tdwsT9nvKquHM4SleEFLHPcSjDTUANPzUd67 /Ftnb8cKowoaw00/3INl5lRlq+ 9Hc3EAMunsaBHVHtyRgTwaUfftsruw55J2h8HayjgKL9hQbLeK25xYd8zpEwOEVL5DUIEGTik/ E09dkqTdVBj1GJOKpg2UH1Dggaw/ Wpz1uI5Xt2BA6uvcPXiWIR0JU502xoUJ1TXHJI66o9vXabFojnq1z30udnt/5d/l/NwnTJ7YyDn4Jy/ nxyeDsqN5PdKmor75gjtLKTGZjVCmpqEyGKi5l7DjeAwpqKTnlS+ 3PZ06oFIQGLHGRVWIudErLv5DXtfbewGh0svazd9Cv8CXQSZFBJ9ag6r8KgZ4yMw30XQKjIwWEpC0K3T 4TDgcqadff0s7ZyrzHI98BR1nkU93l5H0 /maacG3j5IW2gfVn4U8okDFWJXoetfkjTuOEEtW5uD4mQgPXatdaYs/ OPYHe8D5xjKsAlBvTy3OBKZw9gO+ JXfAaBNcbUo3W6uIpBdwVLGDA5ZiCH9JrawwyUsXIFXZee32WTvaIG1C3WWyAlRN9KAyWGOnPyJxFgSr JwMkVSXez /LzWvb+dN0j4oDwlc7ejaP3remduIbFSBLF8fb5WAz2nBV9mD3EUbF3KcI9GISVZDCSnE0Ii/ nez32GgNIJGM1QILrNbNfH4PWKFrRQK2reT1hu0QV9Ok2DR4myEp+ EsAHOIbRWnTaMQCUT1aFixMAcghBpV/aD3eY92g9ysNKwPGvcYZd5RQQxpfkyZQM7l3atp9/ r6i7ebh2QELRKHPNgQiWM4DUBnnTLTZaI7GDOQsNtYOTWCng94zUfTRg1I0COUOJ5WzFBwXUz83JPdBP ck /uEINkuKjIDFKEJH5tlniy8lrYKGyP3L8c7LjIvTE0RHdy9aMlrPnww7/ HQ4bfphgAeu2o6kcR456hs1u+RXluGj+1zMBxWTmQcAyETqABcrIopCX3+ 9o8WFB3KFTUz2KSX2k69uEQQUZUTTEPdxBh+ijpGA6RUrhM8wouonhobu/ P64plKWYn5FkLIlAGSkRSzRqHVvWBOHYCHjuk/XVdOn+ Xi7jo3vjxM2rd5XbBmnhx7LtzXpf9wn5uOPtZ9it/ CHSr17BBDYfcvbxcsUt5hKnhZiuXBOTEp6r0MgOYWe7+ LGunayF2SlkzEm7DFRtLANghodonMnrYnoMBK+lRBNjGn1JNC/xDI4+ 5Y22DSQ3EUtr19vERPmgy5gGfeHu4Yf6K4/8CmKiuSQ5HRRSPliGKGEJ3gaiKmLSNlMGX1G2d+ T1aBPveJcdIJTBEBEQr2meS8IWDXXLWL04nxBlBnWRkvmJJkGilMwZZajQO5Gh+AEbbY5OUY27RhEYT3 +aEPuHU5J7uRIMSwUmniDGQUzZOQ1L829OirGxtf7Dk03Z5v+Y30B3AWrx2zoydB8v21/ HN52XG9x0GZtpFayrU+TE5RSp+eRssSCWYswBZkHOAVLjA+ Avyzr4DiQQtKMSLROBuSnsV8Zw3zQt0r49aa53t2M2NpUfeoO4PFQXmlDMNOjlsoGVwjH1ctjUc+ 25b2tdODPwsONAT7QMIIvbI7CspeicPjtnBxVzklNX2322SVcb06+d2smA3FhOZ4fNmpH8vyY0nnW/ n3sF6PtRzjuIce7bmkvKENostcDw035MLZAagy3QvfN2NlCXcgyUBKYqVdorYv8uzM46tQC6gXtzXqjf ek6nvCZ68TJCldRUQSYXPqfC5NBVqyetuiQRHUMVtFF64HAYRncri0cyqpNsrYqRaka +a62ZEVjjch02n+cwm432+RNbGSZlHJ+ 8GHMTDHwgtgcFjtcwfaDOdhrTX8VhTAJQosmhccQCDvXKywyY9WT4UofpBhFa33XWWh2T4nhaKqVWR6Y PZmDFIniEahqdqAkcCriDXvyh0swdWT3ncHvvGv6qbk5dIv94tAt /pWdFBb84WweqiyknmuS/sYnzQiyJhfcCmqCsPCebq9GCMaFzahsXqrrLBasK+ 74qe9srGpbhIxoyAIEDVRbGQv95o0FVUnH7yYufbfGuyLL9Nh4WE3IevFkvCul7POYsn+ A4D9iuDQ6M7RLEEZwzE+0M9t4l/ bX5PnEHxoLy48gxwqQPpLG0kwgIojrivoEgIIYkvj6syCTDBPhwIdycqg8ABH0D+ 1e9em5OpaMyx7OSYO00szuOrc9xJ/Belz+bi6V0QzuC/ KJ6Lry8pTcGEOl1wdt1RfyMPnw2YQsorMPD6SpUUCH/ UGozJWkAzoons90gImIQv1M8Vtzwrt3fpx9wtP8B/PkJ5sk2n3b1mudAuOFzOJILJJIT/ wCo2kpHajB9eSslebpIKaAbPRw7EFmihxr7HD7+fJrtupJbW+dlb+c3B2eNcy27p++7vo/m9/ [id number]AN8F01rAJSEQgKk5szIX7utXFzJ4mPJZFi+p/ VCYpNLEeLObhQKj1TZPXaV9GZFFfkl4RIslqze3Xecu083z78i+ azXNV63xW5VmaPFh0RagwZXlwBikHCPc2RHTJVZlEXK21Abc+/ iJklsgenjQzuzpg6ZKKZVOIk3uhlbKsB2Rk4K0+ f3GOIuOGLSEBNVgjgSQQeZSYw4MCntuiHC336tBTQElHu11b1f8p1eDtQ8d3q6n/f9MHaj1eKFX/ LlsBtxMBq4ojnciTmx8YXS2zjB8jQk2XYXdz0xJ3mruVd0hKyAsc/b7zMQuc8VkvPRJK7/ADV9d+ R1MFzvHQKYI8cCWOkbOKXdcFbtzangLDl5i+K+ dFKzhIrUeV8bJ6KtnRNz55EZiFiyGWdXub6QASKFx3Te884/k2nr31H3+ VtwxTvbmdOw7b3j82eOkiwft+7Hm2I8LPQKgO915FG4Jj7/cRQKBViQGvS3RzKYyyP+8MbL+ TkzUzEwmOyyHS8vZ1csf3BLmTgCOqmuRtdHga5Ih5riOPy+Jn5R4cyVSICsAUWGf+ mWzAADzi4DlPmS36AvZ6c77N/sN1RD9Gy+ 9O7rhSRLGOfdcf0taqpbcMnkQUmBwAukFTm27ynDx4Z1I65336jYx/N4rgwSBPVL/NK8no+vktlZb9/ uO4+Tuofs8txXulHcw9mxwpfBrz2jKFhLBPcHXP3P9y+ vk9lxZFmMPbp93kHnIFsJboJ3dkNpSGMOmBMnEDSFtD6YQ4+ 3xrr2l7foCkr3bjtNoAhlrlptrRbPrblupihMr0HgR/ 7JvxQVTMekT3FrorCimC4vb7lpG94amfN9BpO0eeKUURSVOn5NEiPL7r4a06553pzwNgXudwiwB1e0p1 Jh7gopZ +Z+k6wMhbEGhw72eCvCjkujHPqe7L5YQaMI86ylnioW/uUJ0pjCA5UniFNluJN1ajs/ OKfLFej08HO0PlaXq5yhPMZjEWutUsEEQQM3YFbf88suEhkuiCZGb9usytywUeUSKnxWeETaCL4JxSEA 57Rx5fWGEQ9iW1q9Yg0Yi5GpB4s60fm8uAY5zF8aSky0ukx6xg7T9oy6anTj1GyFGGSRbkKCgBeLKIZb wQBjyum /FHR/ KkzHwMQl7rtIoWXJomBO06glkKbCUEIAEbZds7SOaGa8n93rpm0cqPDZLvlLDIpjhqBovLdPA9UdOShF JsHhiPQ7l + Cmr19j9KufCFmzF1uU9YuNZWxqiOb3Pe6jUMNSqpWdIU1NemiQrHlesEDyP4aVnoZXWxLEe2IVkgRjz9 92gq0GtLK1MK7BCFfre52iIAWq7StoHfwUfUw0z6lunK4SqkuJ2gS4b7xsKytShkv3MNFL8EWOvMTZ2C mdiMr3lxR7NapRHIeCDb7jrewUUTqSefDfQAq4h5LSEQB5EVfvcaDYoxj6bPcbOmwZRTtqkOup1BKf7v BoyGKBQtP867nyn8ys + DpqNcsggkTYgGWQQtJJK9RGddCWrnqqZJSETZ7AKDIkzEHZ8gKZPneRffY6WUM77iwA0UXf32PcoY1nP X4WiZ4qbDlZOJIRO5vDp2Vw5fr2R8maG /AB+mnS8698+ t0hylavcQPsGjJONB5xI2fmkcLDvF6mWfqqeWjvoMK0ShhXxfY1Byl9NYBBTPcE9OHxM2I7lB0MJA20i Q9wg8yrMiocA + PF7B46H60KgNbNNywE8jdPp50HOSACrYuYKRR0BR62CObhKYY8VKNvWw6z2guX3H16jxR28qkmiwUYQh aLNGqmffE96 /K60/E+H/ANo/k5TpqhMv6yEbCYUXllcMJWWztT6WJEpJppEFt/yJKROHImssZhu4adrz/t/ xTDFpQFoj+LHNqVCfyyFbwEnzsyDU9wEGBXQMCPYFBZ0lgsL+PPZ8JjUOOaR/ vFzJcLmpPimIRBA3uWPqn48R6V34MLV+9b5sZ2/id8I/qTa6s6z0F6leUzv3+ qxuvtNiBqZXj7Ko1sZBExM01xUgo6oqJaN0GetwbGG0mMgKpeTvwnPUupK1wcl1+ m1Y2d1NAB8gLpy4TNdPdomFTTuEBrlLQkzY1mdlUlfO/ wX7jqNBeXIOyZUWTsVJgEXoAQotAKM2agdKxfImtWNwppBKVZ1Y1+H3i+s4Oh3KkGmcz/NC54AyR+ D3SsoVPtoFhr2ofFKgFdmWwqT+fFz0sr41hd61+4E5uFHXtGInoOqsQMPa4JSYkFXTvMykTQDd+O/ u0344AkA4M2SmWs+ L46ymOIXE8qvBKwkWJhCKQvNZoP3OeUaivQDgPKdzCCwCkAhf3jl7k50fpp2zwZ7jk9A34mFJ3WM0JZE MIkvluE2o +DgzOQzBV7KZVkdcdx3V7MFWKF9JalVqoTybNbTURmxhkmOHPs9GjXaSKV3QKEXAC1mAOnQm2gHZ+ 3TZIoHZBPFeAH8EuPRD8iy2P8Nnl0S9bbzWGGJLBCSLixXlEy4MppCMx8KfKQHZDJCQwxFEfH62082k2 0EwBw8BuLCq4oqfqLxmyTYQYuXWBEWnCDTV2 +C7jEHkDrLStFO9eWoUNUrxvBoo9+y0HdxKsVwTnAtdPxW58Htuk8O3vIAX/ dZAYIS0oDYSfhnzyJpjszIgPNUrcDU+ufXHn/ aJqJrPuSd52fZk1sIBMsbMqQbOYEzhs8WCdpbZO9Z9IiI/EfxQlsL+ueQzZS5hNsO3vyLXrWdQN2/ Z5h9OOErXCehI+CCy8b+LWqYBEnmbBfdxu7ZTkjVoxs4MfhlH+hE1pTrJ5Dgvya1+ F5ypbQXrqERaemkt+v9U9w3IkMDAvlcaGk9WbOJwRoZCTU+ cADyKZ6JkaWhAVSaglm6V2GHWqhaEIh4PYe0zl4aFjnXpTPEgfoRvSxX5pwSWP80OP/ qr9jeSthi48K5rTbC2YGshr95nLPepCQpLQnIP1AYx3jiJO0kY2s5nervHxrgUjss7EQfRzhDq+ 2kHMbMhZisaCeOdzZ1Ycx/YrounWoeWmii0cxLMpNyn9kyfqmF0tvU7wLBV5E/ jeV7YKnYjLweeRF9nsgESyxmz3pZWgo4X1cpzmrtnjldKFeSrgXSp5vy5Z94aiqfizOZ1cFnoBJNvBv2 uXj55F5E81bGDnZG666eeTlpBhqnlovHXEUHWJo8FcbTvXX0uRIY2o51j6MvHVstanuPpdaRskfx1rnF gU5OWnhYuRGHBo9a6VgtpXQbma1Wm8HSB6GV8Bm86H /0jPHU8zytM8EKKfrCdxYRL3R0ua7qaj0Q4B7WlhvzocP8oo31b4v6xVBZCsYkc+ h1CjeoSc2eNkmEPwht0v0Z7Jn4Ki0+h6+UlmzVcL2fp004mLsTixUbhG+9zwLboWPFPK2UlucMBn3Sz+ UpxHLI/DOwva3qTvdmoV1EaPG6+ VFIzs8c5ddEMAno4UReeHLQWx68KirSPeMKqPCTqR1tQzj9fwrNHUO3uI6PIsXh/ hZWACDFL5IpRrRE1HUHqfByaKpfLuRHQFqrjj5Xm84KP+ F6xC1gNPb3kFMRL2CYOSaJ1fE4WrxkYCLAwhYNPrcSGfWllOawbVkp4831hF74gj9+ F40HPLceHhWFGCDJ0+SV7a/1t2dcNSo5OnLdT8z2mlDC31a6/ X1m3l7UG9rMO4wKmcbXVnvirBrVFyyJyBhkBPq3qFzkePodUU4Y1BLWBKszvBt/ 39SGqIh2F6ER0tr36Aw2rU9zUoa7e8Un6oO28saZhzNuOqXPt3O2YJpEJpTP6qkTsUouqxxeMNQW5o8w a1U7smRcNThMT02Q4XZMmMt6qRtRaJig8lF9utDSYqdb9HfIz4C83qdqz +V4hmHnOEifxtXHSb03ho8l+ imwqshsjwbd5a0P7vXx3M0vmK3TQoKQREgsXuXNearIEEknIOBHC0HjhTUwxJWvm2jSnjWtl5I56TJYG nnjCQHTe4Izajl1fziY7wrIXOnCLAVcST49w5 + 34nAY2wtaIxMT0d4uLvyTnuHEmm5fNP8StGhtq4mzLC8VFIb3j1ra7B6Rzs5rD3qkhAKfHsDlsPCCwJK 3hx3BB6 +UV8jVPpBQAe3fOKGFyQhtfBMLB/on2xw90m+dOKbExvZ1YPI1Ccw1ePs+wq0Mi6N8HWk02b4qnD+ cOTghjVfPv7VuPVbD/ 3oJqjZYkDMmBA4QqqSNNhomlYYOISnhw7rI7kYmx1K3vkQmETHTMrD6qOtUeNXEywftyXCXkqkSi3/ fCkn1IrrPWc8P31mqZBfEGyK3N5YmAFEFZevcoL6PeduUbktazr2w5fv7EXanBUETRVLUS0p1ogxkf1g +vfbud90814l6wXkUpf8WUvXOraU8KNOtsV/IQQWOJDvzlJxnG+ otx8wG9idxoMw1SZ9przWpIZCkdFEMalZVbd8ghYiB5Rp2sogXbfG3Q9wKCiE3Xibf+XhId9Y5+zu+ uZNSMM2qghfD7krS5lxlCzimXG/m6DZivlALhNf8gQ/ LrfA7aa3y2U9jFE8uOtA7X4OUROi2sr1trCSvcejdjQ7V6Nu4Cj5V86nZtJQG7sSk+0l3+ 269uBpDiKjmmLKFDg2gMf7r+ CYk7bbNNCTbV0hNn77OHOqzUQASQZpDXUvXpsTPNafCE9CV6J2AJcAOUvZ1hqgA9i1tfnwB8fDsflGx9 MVeiy3vvmaR807O40j /U/Q05aQ7L7k/watH6wAQ+sW2g+ CGwS7m4ri1lLuZ29ygWwrPda8dmJ5J1XI4Re5YP7mr3HHdbs1WzhFjlVavYmEdPdCd+6Xz4BCTE0h/ N0eLHHUQz8Hkr1eic2wnvpEkxXI7T+L/ d96Q9NpXtcCmpmj9f971c9Eu6eRUL4akjTfItzGxi17JjlxhrZznBs2TJkm/9P5F2n1S6dwyin8p57/ ROg2BMTJV7lE4voVaoIi2luVzzAKwes0WM6Orte2PC7IBdpFUMNS+9JuynJylZtuyvqtLpNK+5+ b2GtzFyoUvUudx8N4wtluOn9F14DPEmZKlkVMDi5Mp33zl1pk+N47HT/FL+LUcpEj2omQ04cbnWy1C/ mZeHEHqboDtfk6hDG9okOOKJdHMSc502T9VIl7bdmlQ+ NHl9JbbmfrbhYg4M8cW04cYD7fUIawFmPNTbgN664dPBEl2OYBK5B0TVMN0B+O4MOISp4f4KK/ k7gkwstMYsehwbcjojgu3iOBwRCKUJOnTWdmIeQymP6dg/ PUcBYC7hWN0cku8w0YfCNtTshNWCL1FWTsvOGH5bnWRhhL8kYhElwQM1UkfwS5ey29Y2wXpVApAdHvKA lvl5gZAlyCfTUkWzRqCNaWaW1GfoHa8vSgJ42WnHuB +vmUahLJjUeV3EmiszC9WPie8zzQBDFGaC+0SRIkfEPJ3yJpQYLLX8zFFSZyPLP0/ 6UNqT7JVj8xzaJtL/Wficd2YvpylpCR5aVGJNldHz6/gS6Gaa5fq+B9odaP0XzxXhaEKh/D/iTwBfa/ 6FpYvb2liM/ l08ffHR0mKTQ4lzgfb2zb1cgIEjZCCiNF5VL8ICAXAybakAnY24HT7PnQ7bl10f5qtqETAzm8dUYjivC bRFbvwtNMDuztFD1lB7srerOe57588cFWye2iJR2Y2Z3YR7OvY5X1b1tPKoXfHVpxswLSVhUYJICcV90 5VCjtak8n2zrjsYMuAUhJ0ndCOfiJatwy55 cZX5AimfcKyIOoY1c8d4+KS6QKuaJMGSihupqLMcb8K/ NYB7cbWf2Se5RC8KbwXDtZfrnK6YJpQheF3buFLgufuOVA6HQuflmFHU4Ye6Axjf2Q8Rymn09jB8q6oL AP7g5NARE0oYTc5NR5zhBwO1i5aqCrN2Z65L8l91bQx /uxI9Ks1x66GoLtX9t7IZuYY3HdvaZboYQDDFLHcyrdhLzEe5oNiED2hsKR8kvx973CiA+jnmxA80mt+ z+skTdfdOJoDnBflhYLysviLUxCI0pF5knCNluH7agFdp82zqEc9pUJ9E+ AqWmouBW6vEfdOtZdKA4UHpe8p39YHYoaknlPM7boR+4bWTD5sLJfGtJiaXtrFBwV6G+WiPs1GhQdq/ DcNvQNyvaMZfMkzapK4ilXDRTkQJY5hhihGmEvTcZGNMS9mY6dAoWisV/ Khd30a4Ia04CmynDRDj0H7vxxiZBitsyqgXqluPZS1HcumojMHvhVcjNL3MyJjlZokNAxLOlCmtzn8sx 6VEzVupKOrSmJ4Ocrplg43ub37fXHkiZDaZiIgqn4qJ0ptsyqOS9QDaflQoHXio4kZb0BPlVv2wbKn2 o+W5atbM1TA571qbKC6oxIitkrvSvHhJryO4u2FXhszlQGrmBd4xzeZPR/gz+1yOg4Sd7o+ Ri83o3qchqwqJhkt19+3t0FFgnG9RYcogCBODo6JWE5HQvS9y+MW7pVjLqbB/ nsZSJW4dHP11XpYKV1znZ23MY7mHxeJw3g2B4Ru80xUHQrbUM6wAScJJjhr0xISd8/ TgpxGvY2tyknCT5FivsyyotqCJ898YcsMTbsoUOcQONGbYF1jCJIkSs5f2m4Mcx/ pg2t3xZVdd0Oak6vhO9fwWXW3re93DR2O0OFeaCZiRPDG8v7fjl0BOc5oB+fs3Hq6ne4bl6+ v3us2VJEJYxESxRTkd5S9nq4eY3U7ixo2MJ9ltykRtyDVqfMfINdzAljyJ9tztddi3gX76pkz7W3giyv thMujzKR5QlJ1Xi3BYxnMoHK9xvzW1C7T7AUqB2O6wDcCbAw /nt3oR4zYdSKmlmvNMEXLC6+P5AZRyzeWGsoDcVKb+E/ CqqbcKyZ9qrJNU9ifVDCW3peMU6J0as8KSjGkMNSxbZIGDIRsToCG36QHKx1iFm0i/ juwGhb9ARBNw4j6QuvXVdHmaDPnGqUHSOTeKbDaWDUxfTS40E9z8HWp0wljtDtvl5WJ53gsLxy8/ vz7WL0wcaJyycCgQEX5i9zw/mqQM6njxvvHFmcYlW62I/el3B5C15a0NuZpddwqZDXLrOO/ kUTg968uakXdb82qzSANgRv0OvbaK29SZYTTxyP/uF0G41678+ H4puMa5riUh20fC5SeNr75oGOXC6M1k5AMcRsq3a/fwvkTM5kJCvz+WzGUmz/Ku78L6/ mprmlxFmKyvChEeoCALrWpsmCxIDK9QdH0wy0c7aCNkBjLopO3QPZI3Lo2/p7+y/oWm+JTbUjr822/ zH72kMYoEIfdoAN6X5nJSeOdpQYiwfQaSgRXjxSpRzBZzw3WUqRYYkNBjRnrM5aa9T2GHQyuuDDF6v/ kWJctDlPEw1fBPhnsdtC9c89HK48byDT+6vO0ce3e3kha9f/E/ yntny5Pgy6e6aEELtBcztXe1Mq5WAfEAS6gfovsHgg8gorAFOgHJjYM/a9ZhFa0vb+I+ wCl39RuHxTz1ceysyioio9chGmYTk1gklqoje2fTwLtIgsi6te1vFCZwDb6JUHNaoglJwE6LbW/ PZoMUZwVciFOiPl7yNaW636z0QRG07x8qaeCn9tiPV611SMTkxqUQ0gmYwMBoKHQ3H7d61GpQ+ oXg4rxDy4PdUgBm8Y+9yAioR9blQ2KcJzl5hIlV5rvcFhSdxitDolI7reUi0ADA0uRjhO6ROSnLuTD+ ELcRvvNrQl7YJQ6s9zYss2qoTv6HP0ia80MEt7mXeJEm5TmeBdcc63ZWu8VVyyQ1t0F6xTgLVTA2lR/ Ztq+fohB1C4t9i4bGrLfAdEJaq8+3Lt4gcUkcLgGechqdX1Ohnl6F3yIpNiPnqbpYkcW+ WEoVJjqXITe3R14z0NS2G0T7gGSz5denZc95k06qQTgGY3pjO/gkvOTcaB8pPz3wd5zywwcYSj/tDS/ DH4W+IrTkwtFnz4VhtYuj5d87i3fudq5ylwgNvl9UNxQlD9IHgnko3mJPOFjl6IjEg8+ kdDZe32skivefKVaF7DslRbChm+ QIRUp5kislt5eQEpBkj4Z95j31Lya1Q6hq8i5MIfdm2UBEkyqxnpgJAdiIT7rJIAgP/z7PCPFo+ OatFbp5jcefXSrcigxw4qtFrQx6xuvpLxKzfbhTDoW97AXmdaGol2GRdmREtRqbW/ iR6XmK756fzBZUzv+Z0RtV0DyJOSsj8sEE7j3s/Dl/bzXw7PwBmOjvjDAVGs1wuWa72i+SbKQbe93+/ cG6ONSdyvjad/RE2zIakZ9BDSBf6wKx3lCcXZagSkll2XnYbDH8PjL+QdPZqF1Fb/ M335bkaU824AV3kC4mhP4Gu3TF3pqHzBpxFk0X/dW2RQiMFn02c/ URas0eLoWu6SFBKSyfqrnSYovAp0u0zIWXw+aS6L6Sk0R7yMeLMaSF6up5nApxxhWKf2Fcemq2P0mY8+ x6rasC3k6FLg4Q9R4Cik3/0mF/X1uAZmvB3epADZLMPSEQVlE+ p2T2wNLPWAilrxjmKTwbI9fSs4zEaIubsQu371t8rgrpa0IGqSQqcHPaZCoAFcoBucltrXxLgNkfKCbz euEoqncbuUh2jbwIv7vm6aUi0cCGWb73l +Dry8T84YhKAsS87c5u3pog386qRqHG4YUNqe0+7m4QqJx3Gyqlk5cXE3kvbCQJ6ZwH2GzbuDkH/ LZjez8u8v3RajO5V8NgE4k0BnPwJ+ cy9z8gdbprWeL9I2dcgwqvZvoGjVbGigHCUJ8sArHyaglkm74Rv4dLgJ8lpS3A4kRePIbJRxxJgZviEa 8sgiwxiogpGD4heDAz3VwGixmiUIj200mj5cwcAH4Y73tlF57l91A +Uyqh3TVeI5a2kJ1Tu8Xtt0j3Y50F7PG1/ lLZhdbaH94q6e1d7Fu7Di8Zdt3caMPESnMWUcA4GwxLn8knU6keQV1eDVapYNWKIFZ2oq6eFzwurlh8a 1tKd1hQdJpTngbVQ5q8XKhZRPX4lor8CPsg6wVmzqOkmstR1cZ8L9u9E8bc6d /YLqwzBVr991jYoH8DE4Auylpl7UNaT4Vzi/9MsU4Vp2ZUC0INQm0bqDaxdZ7oNrruUIF1tYwyhL9i/ h0XHw/ e8T4Lc1yrv9gGwdF9ocwkLKU55ySyHXK3qBb8fYjCvPl1gpA5oWyPTayOnT4nGI7cfRbts0x1d07yS8U eF0FcPbPGcBky2Y8IavyHL0Tfzi4aXpGZI +S+wsFYP7yVz8H43ED1foaByfgPhrx1aH/GnwO8e+EPB/ aypj8nJuQ2uk5sWqMGvzgICes8m3rhbYKDgUwEB0EIlr/Z+ F1f1s70iwlj4wPSUfGK7gndoyGgj1WsCPp0tNym6tnOTnS+ u5G1r3h81Dpec8ljgVlzWCBlJUWZMyqiJChqtf/hVu0WdYt/sNQxh3y7hT7bxE/WL/R/ K8Pthd6UQwsSq304dIVtEPMz4QN4njftEb7t4nKCIm0s5FW1jjyCK709dw0xqGYdvAuFyUkfom0J1ODy mujlR7p4DgDfHc5hU4FyHLgow6nNQfdtzN9cF3q8pnduUC + nf4pq4opKaX5uD29PqVTwoSxIku7BeuDZOeRMXBrCffFcnA8QTTCdZsUvyP7q1o453sHhmaiCKbs7jHm Ty24lXkMjacEE3a3TBb +xCQAHnMJXT3DC/z00IrIXmAbG4X+AqENg6LzUglznXiYWJi8lbP6zx7vUk2KvTYZh1Aeapvop41n/ pQdRuppO9tudxgZ2FELqQNnprbJv1qDox0XtKUpn0sMe38aB4sMc+vwdfEY+lpcKMIzGu5OWoXK/ EwhKpZrr6FLgL9MhzLbTMMuufw9f5vCyXll22jj5vbnpA4I/2RcXMl/ mv6BxGiYp08e3Y468qiWndrypbTfEcgr8GvNyI7ze0UgGEJ7klDaC5e+ Mdfb3bfN68Dk9kRa5Dwy2iDApVTh8RUgy2TvAp7xlzdWSh8qqQk2JFvprMj9zOX84yJ9LZ0A3g0NkRbK 9mt0wlhyamVm4UTdEmvK7sW1dPysLKJ4alY6HuZ2cCU1HGGPyzzKQzuNhJQLufZIOGY1gCXwB3AGZB0O mJ +0IfSfK2lOhY2kosBKK02dSgTvR6kyAsdTTzV6TVxVGCNXYEkaZAcs23Z21xkab+ vVmfjSQtR2SxlC9BnNflsLSJi6l90UgYtah7mEuZKLIpqdd8/OrbD8Yaf/P4+8U+T1ekto38Y+ S6x4zTN9hLYEwD5nAWof1Jw+ y7OVOXljVWQaoLNh2JfEcNYKtkLDwlYuJB5M8Jyzv6Y3wUVjfToqs8t5UDLV2chXurchv95k08YgVKoJ 49yQHTt6GzzTL4nmpKFIV66EkW73u9vOXXhLfU8K +/MTm1jRiIvcKcAWzXdK/ aqT9EVjp84J0tnRbgN4t1P5qNLHgKsnMDnO9oil6vLX5wVYdI8avxleM1L3JwE9VPZ6fo8o0E0lryTMG 6v4e8M +SlSH3rljU8b9K46NmdaltmDkwG0F5Xta13ksTcuLSspbuzoOcrw8B4kAaUkWb+ uZgaSNwtJWw2qbhHG3d4que0SlI+ nGzi3WfLhAmnMuZTwt4YXnLNdJiTaMKM8x4RqGco2cXtnPH1JtGYcIf5meEYTElosx+ BbWsRX1taRrWZT3Ub93uwHmmEKkOWmPxSff3roy6yAPNK58MhMlk8r7faqBHixesQb295jR8I9/ xcWx2xCn5BzhSj8Q4CXMDfMNv4JLAw7PimUrG/ wRipor21p2SoxiCkPagGEjtv6stAxQ6fjMpvOC0jbn91C17rOyCb3m4ATiYSq5qyJiJ98x1UeXzpYkmp ZA7No2xaux6gr7Wa2r5E3yM3HeELB8O3Ni4rc5sRdetqffdD0jl / zXM5PoSiT6yR8liqv9x4bA0iBW3rVwJsqb8zOnK8J66I0hRkNSwIGzVA7PBdixjF9cVORdnhMqjh8wtZ JOlgc1BkFggBlN5zbAywVo9JjcOL2pLm24tVuSRZfzwz6Ths88LC1jlRih7kyQNR40jtTopVQyzcwA9O oO8DaT4a0cb +/y6ka9tzqvw3ChLw95kKLm9oquOT152ZHn2twtbwO7/v0dbFTkAE5/Sherry+ tE6FvgiVfU1ERord5ZnIJK60byws7DKZ8aw2Z6LBWwbuuek4EWd86vbMrmypr0E+M7j4a+ LhyxQP0qb7h6y0i9tk5gCEWlsB2yIj6PwYfGws/ UMEiyfAvm7tO479jH4zUHfUhdjIPystTeQ8ljU2D2x38lxW0Co8myXi3t9InPK6DLlPHxtc6l47vLMRa 2v /WjbEfj4jcGVgkRk7fGVzG/Ixl7rmt4Q7cBzHKr9nAEP5GHmpyW9qMcz+f4bB8fvnv/ RMrXfLf4eBbJs5XSAzq6erX2VZrzCUceAYJN3XxtQ1F3g3uFSlW+ VHEXbh760kt5mb38SvjKMrFsNweZIMuezepEdjur3gddIRqytJp5jXo8iod14XkNgX2P8I7fatJqHb7t TrSdtBtrjxK +dRJY5l8JJoh5tG1J9tGi9G1ajh5kiR3NJO/ iHn5lr4xFCe58P8zUKgAK4hXjVlwpdDZM6wX4KbT2HBXuzDq+Ir+O8mYEb7oifB/ gDF4uvfuzdCHNlKe5MFJWZW0J3wcn1E6P8g3lj/X9Wilf5oed4i0f9XNxuoaXfPZlK7zjubdPy+ 7mzQWaZFx5nsut594iZcIFEom0SOWvvVzw0xk1EpBfszYnr+0qU9mGbIXuBXWi/YiHYQ3mEhWqedA/ yvvqs4rKP5XC/Kwh8c5Xyy7XLgznm1SkB1pSbiSO/yNOkddCxw1e6eq+49mHjR6QO+ 2jjiJ9x2A4f0M02CBfC8zJpGV6p+ 8xfIXrNzCo1Af28UXSS78mfj0mlGv3tXnxJAP6zoykCFQSQeuRvLrvQ356URrCAxGMiDTVoD+68i8c2J /Au20/gRqgPtLayW8O2CFxZ47eB6WW7YhO/iEx3t/ mVubIvfTUEel2yxB6RGG64Xb9fYEePujyf3Eib6XMmRbpeVT2g72UWwcz9E3Wc1g/ 7HSa9gYWi2IprFhFnjyS9u7rxm3v5ePWPS6MP5LbqPERyu78e3Xrp53Jgv09lDJINT7kde8q4t7hddvs yn1HFQz5fwlSDlPrSsrvmLtw6tEP9youRMkVJAasuwiy6GO7ug +ysuGq42JyGvhNhEzXNVrwzeKu1Ybw9hqB6V6oRVVEHstuDycNLkKlksAa/Avxb+ KRwua98gaKDGE2GQF7/vZb+xsb/ GfkkCa6Gd8kmErjBKXsUFeU7iM1VAoN7rW5QIZEqD93960DFKMkgeykuxJN1H8I1Bk0a2kT+ quK2iH4abqAGWM+ 1zv5sSDperQ9keDTv0lf3Ics8GmdMt3k8AHxryQSj6Is2ApS025qvrLdLHgMtSx9DrzyV1s3j4XYJ+ m5Y9QcloKqpXw9gG9IC7KnZije26ExgxR+C2ejU50bslkZ6UiGNe4LzsXnacGGNywszQtb1gu65fzm+ XD8E/VtRZUEUUoBH24wM6h35ACwsjMmgEfTc5XoO1VKaw4NNotdfYeEG2jKDnSoG3QBd8PtgLR81W7V+ r8r2YRG2MC7jdq2njs1MzZ6n1rD7vwxZV31yH1GYa2PsKACB9YY5uruvXV+t4h6+1qO+t+eprfXv5/ kww9lXKO1Ue/ TnayssGxi8UVF5WxIqRMPhlUOdBX6LagxKRqEi7Rjb78XonxgCiKjSXkcTNrcG28a2qgtYpEKsmKqlny WrielUzAM3kqGDvldujLC /pBPVa30+S238/8AM/aEbasaJ91keLpq38+ tnzrojgdWDH7C5JWA5EF3LDiPFVPwusTbTXDMqfvdM5Cs66PGVd4Wv8vuA6rZZbglSkuvj5U3k50Gxws FiyEVHZv8BLsvgyYcaK1NFjnOyvTyhn2tGpOIefwQyrV0yt5kgwflcr72XyYHSFI + h02aIiyDuOPDAem6z30iyEkY1xt6i166uVDDvFRT5WLrflBXFAfOZ0DZ3BJU8SzD4uVitvJVT7AsyCeG Ckk0yLBjfhV11xHMMGCiUGFUsVEAITrzBabS5BHbdJPAhT +o6d8Fsl7Eai4tdW956WN/9X/pHKW+ iIZkmdIAiX2PBAhXpYPty8mndqZHC7jGzGARad8ot6uJ4vLwGcFs2fGES1DiKF9qbeQpYWnaKQ6URkWr BG0HiKMsMMCqaJxG8bT7E5VUUCwRaATXRCF8DxGPEauB9OhtAOy49n34hk2jfiGgRpKx / aFChi8cmuPv49sXNAJQXoGylZMIoyr2TZKwRJZ2f2EhATVwQXlIXdRrnZ06bsRchVh9El8fPpnXgWp9b /XaqfKS5G+CaVDUiwFCPA3FYc8emZGkIQZQpLIjfEiUMOhblbuT051P4N/6ug+/5r+crRZlmER3fPxrj /iTOMZGmOZfAGiroLpiA5du+ NmCIOOBBfNSJEO4JmnEO8rLKGIUnuYjtkU8SZZBzbqeko86gSkmCKCEKwlpbNL6kmN+ Dgy6JKAjFUlMYQj8/Dn20bXz0l9u/dVE9UmjA41tRKdEueoXjbbYs/jHIOcgHPGcZksRGc5+ 7ACAPYCSDk4uIbGzaoBRMUjWRqkT+YIn0UlDdVZzZEp+/IUjJGup3gZZrcv+ 0bdKMlwlPl6eOFz3JmqxO07dp92C/l/ntsNX+fl8t7r+ fLO0zPD8AOWkFhPvLdGTFMyQ91pMBeYXh1UUDdjuXWVki9iaIRUf5qcGJJp36PP2GbdZebCI4GnibhFb Y9Z8JBGFIz33EsSiFJcxejBexfjVhOX +Hf2d0ZyCP3eTQKNMZHsy5HB1cne3bla+dy+VuyXdeq0+ CcHd4Vhe7VY86T4ZqZipmVIl7aO4iseyIgHOCp6C5iQI/ EptLH3oMee3xDAAx1WWv3CAZlYaK7QLfcWIzWWWtgnGqGHjPBTYqooNWBA0bguacYJeGnie5a8MRJhfd dkYcp9yyGB0frDnibTBnVrLlvRV5KYZqqARhzgprLuUAOtv11tnx4 +7d+gaLzlFPf47R9824m2wr1QaiXBMiXQ+sG5pmPRbECRAulmdfemGiDMMykleA2M+Q7eQjdD/ JytY98BH3r1NVuMysUcFwlHTSdnIC1Cu8nenBiz0Me/cwsCylGOd+BITG5y45sJVS7h5Y+D/ WEIWs8fECEZQpOCUYEeAGt/xHdEnUzX8l0Bc9OLln5FCqALWLoM3me+uwg1T86rtuwCaHhpkr32w66+ pGsjk569JqHByvdhKhU5HOxAkRhQjsxDRIcoXGn5gv/WK5THhkG1SATcehmds74jFljIbUzAKL7iVH8O +UbYI0wxW5uBNQnOhmuhUe6COaLJ7jmvkfc1U32vGNx/heva/ LJVdsanKMlmBFKyCTvvI2SIICwPaBDsrLA8Jhks33uKhr0c/zarhQyv429h2T/g/ v9LRt2EODyREY2JM20DHTZHYHsaRummFomhLvvP/c+w6SvhMnXZ9L2iVIkLH1+/ VEdIahgxe4dJClZLUF0XC3MDS65B1FH4gz9fRR5MtQ6PrPqh2FiVd1FBKoLPKO5TpCmvyEQrbiLpzjO/ tO1MVD0d6dAx9fr31hcxYBHBCJZuKmQiBannIbglMSJAmdDeKcFoqUD7FE3VSEvuf2dTKkbS/ TddOy5RELNQthCKsLqEXreJUirflolNUrSMgEc6sD5srJAaYRsoZ1EHcTLMnniA/ ETjJGUFazaTaabvsklfXW9+ z45c13Qt2Org7710nq2iq8V2nYDz7YfJ3uuySgHdqFsximIDVk8tALpWTMIpGETHPKFgm1uNyz7a/4Wt +4NNmG3XdWnUICH/I2p6RrELGXez8CKKEv6wFDdilyW+nn7RHi+ TnJ6CQzbAae49glztawvCLQpINR8yvudEMZtvC6qspMjapPI3cnzOiB34O14+ ZRcC7p4ExlBgK99flTVchAA06fqSF2cp42aGXHK5EoN1dZx+ y9pwvkG4DkF6RLCjRoAflp1353f1X9x0QyYA/sF+ J8oKRWqXvdmAlRc9sBiRJtPpy3jqHkhOPIWzycIrdzb4bwabAYZOwOgyDvQ9UAPHKB0dbrOqY/ CHrxCUPX6zLQXafFgULmJY2WP58VPzWDyYcbHZ6Ow3QkQ8N7N7UCQqUEfhkfJgCWpr67s+1vx+ vjsb1tMW2Rw63/kINWxSCt8M6avJS4WA1V86HAB9mMGlrQDjznOAMNExNrQ+ nWwuZPfLuLJPLreIfnPpviPQw67CAMjcY122BzKWyqbZjC0ZHgFzv/ sWkgV9uwpJuiprfnH6TcBs5sRMw67T85jVv2GbKmdWi+1y+ uRGZpyEkWOVO1p9140H8LBK6BCXlqT2lS1PCEGG6ZZzgn4aLPy2n6w10vlQR4yNFSVEwtIgqqi8sS65O pjYUhh29bFSIQe0uYOF5LOMo6X2FiaYeqXhlEQXv091U78mp6N1I13BV6cbsvi58S6asi7C1rcCUslS2 fuGf8hTlMtqQuuM3Yp2 /SUSIE/WX90qlCapzxy6vnIJcGSPdzhQO/rjsMJiCMvJykQ5Udihe4/pV4/tPs+ vX7x56EUMDStyezDytt2zJC20MT1hmgLHeagR+ 7ssinnxxppcgJWFHrGbKBwKyjZYe6kRPLMJsVGWySEl+kvdcsiyw4K7wfLu3H9zWOu+ poBVbcWu3NlhB3std9z1OFI7W/VhH2b4lGOQl9wFQETyaqNNGltcOG1wBkVxRliS0u+ Pm4qc27ZHKNQvB66eV77nouu74TTKAnWzNPONws/4iwSPK+ mZ9xVvI2I9INV9ewzV6IsRVoGSulz1l2PipBLhohz0k9C6WURZrAz0qNRAJ48mgpsRoWitzzVX4/ QD7eu2azopmjSluToa9CjXbu+O0laxA43Do+P2cf3fpZD6batziFUWR3IhZCtwqvt7wl0ZsoVVjraI+ 7g7GsCLqIOAUpuXDhyfbeqNCYm3uaeqwzCMY6t6CETJPDpm+ Cqo73E0PL25VlSCmmyeAaRgZnR3GBYJcfgNPPXdK8v+ 3A1IsY7eFthUdthLyjtVm7oMN4omqEiTUKu8UFQQZJDmw9lsgV9dAX26TmrkfjWekkqt40EBJivIpgQ/ la6Ioru7qpdx/SP2+6XXaPWulVPyIIMjNhY4S2Or4pll3LOC4O4SsH8+ wfg4IFqRcWNyNhcffN8qetuIJkXMp9mBax9y7Q4RaaBHW47d8iNsHIJ7KRMBYVxOavnlcCY4HeuD5kdu TWDvP4KJiCe9IY3racP4Dro0i1YbnMePdzVj719x4 / 2bsV3eEVVDNw2eeep4ErQpjpm4DVrYmow9N4Hs74iwnURrCDDSg4XQiHHBk1XqmjylRFysBAaCmmtjgt +xrus2yvug5pxvHQKwqlHHRzuGFVT1wjSojHmIKWADElO+ eepZE2hxvUXNeKbJrWrN84nOEb3OFDKozGKqjHirTs6a/CTQ/A/qdqV3q0o+ pJFX5gSfeJcrfI0jDJLLmQtqYJYQdChH3NQctl6z9/0vBYUGJSfiXh4MWKSqIvdAW/ VKmSlh4fwKc93Fu6LFjsg8BbPYDO4c5QDzjmEXH5JbH2us1ggT1Revt5ef0hsrYG2/ jA3ejVqnqO9ujP3APSxKdd9R8uTjJjcRbs8RKA/ZJZBpHxVJIa1c+RimmzzR1IzHqt/kU7VCzjWDJySV +9JIMMFsUjiWJdUW0EOEUQKruRlh3ZyLnlrAbdxOTiMi3X3Cx0jMyJUIAHyLDJJvAVeG1QqOOiSBaQ5l +Rn2H4W/Kxe9vvfimmWSrIgdTxzIiBCGvIFTgdrCncDZ4IEYZC5+ it9ZZlzzlyOpc2qhhRg2QnSjcKlJA+rtqlY+ vqTgFkjwelMgLtug9NGWPx1EFAwdpteQfAnvJbZiMql1Nc+rdkfRUN/ nMc94RTgYBsQxmZXqOejjjS2KKVwsAhvWSIFY7o55gdr+k8xem9UIdQ3x1tJiHdWgBIWyIrPRAuZt2TN +Sjs2XAO1xe7l5QWW8UPojlpRyW7DHyoAWPckWhcTyhjeL/ bozTbvta6AMdPueQQNFGMQF5RIlzTurAEuiLTTUV7Ia7nyQhuzz9Ee58f4J1uP041otq8mRZ8Uah9+ ND9xLyvkFs7llNpRqMVSp38qVVPjdG4li5N2/f22vj+lmbiBruGS+ 7G2kUqbVJLApL4x1eGfMVtKHVPdFGZVlMFW0uhj5Uyph5wn8qjL3dXEL1fmb77ipD6LrENyHEdzcaZeH oW2VwgFmVc3LAn99x26JkUYSEpO72A3u61An7K0kKeJjvFsrSyadPaDVZfNWjA0tYh9D6wvmG /a0TlnhEES/JtYWa9WzrcMNwKizsEF1ObvBXkrs9ys5rZPa8rAoPmybKg+ dDhYFgOfaTJwv2oKvn5Jd4333iweiSgqeIfS2q4gENMtyNGyBTculWcc7af9JRKqHX92u1cu3cVqACWg XwlKfFiG7oB2wZMzYnNX2C8sTucCdpNxaeLYdDRKuHxr + AhuulaoBtviBKwSlb5szHC9dLUGc7WyQXq7oRFNVpHfYkSioEfn6fZHEAm6x6JrrlsACfsopijagg6UV fEeF2GwrmCnLNziVubpWcu /El4ky9k5J3Szn8YirbdGP+ ZG5g3jOupvGZyFuXofAxjV0mU570JWSqqfDip2WvuB20a3pPintxEWdEBCXQdpZqKzxixLve98aIc6fv W09aUWW1zojzT5uzo8QhVzh8Ns9FAgLTEWfOMrkhReUEmRYCMcGGC5IjQAx04n +B92gVwD5rnexQpwusFqQvAwRvku4BUHwTodSNby9Ct9t71QuwnLaprBBq3G2R6JV57jToLGezlvDU+ 7PA+WyJNwg0TWbQ+ ZvBq1InPaWmV0VYsWL0nWM4K94GLZDlJEnnIaxM6JQFUQsZsgUUamOkXEt6m4r2zCoJ4rv505LM4zxVs fwBYXqtOlrCmYL3LVfsbnf /vbvc/C9oy6j7bJlhzsd3ppey/YaotbMbhD0QEdwmBKv8qKaUbVpOwMzP1vIevyjqq6S21i+ KbFM6cR36pNmb4ssMibNjkT8LcllovVzyKevK81lD4PUd9M2o1NaXyD7b05DB1zf8pDy7Gy1wdS4ePH1 hlCCs2AKiADSMjdSevBNkSbPxoQp9GulnSENoQnIHXZV8CC05xtGSx3tNHJmvYF4VaQZmSDQTqvVuG0b zg872uxA847 +mx/ HAX2oB8ZUVnKb9U4rPkVIDJg74gp4Jaubn2o1r61eU4jjiX9B9FnoZdgKnFQXCFGaSkdrXJVEoBWeWNu VU9UmpytKsaJxoOLcnosCN2hm4 /CQBnuBP85B8lMfEZDI9YesrqCiIVvHvc+ mUgWaiBzPBus7bBpcbhdujbNxBHwYqzq3LozsEbFcLbkj9Im4JsrI5qpE56GQCsHB6lxssQOB1rMxLO0 FyQzNdfUGDmuVE1iL4472wxn +2u2/d7Q9aqM7Kf1DOPRZYTVknNPvv606h6knhx09ucxiqijgKnXj4EUCez8B7p/ C9ynMVo80KgoyDeMEBGRFXITPGyyJxG4v/3WZq18RBHo6n3P56g86iccmf8O/ uLCu8o4kXTmqKrmHsB6C2o9V0VKCbyVEYMH1ucpmdVyYCtKV7Jznz47VK7MJMtNhSfJRrJ7rCcytrpKw S0vjXPlc4uePnIA5OQqo4xQu6FP9mbNHSWKDCqQ2yDxlLTg1dRp29rs30 / HU6j6eJrGPbOMEhTihnD1mvYP2w0dcm59tyl7j8Vtb7OZBThfAd7RHlxcOGInkPMOSuqOnk3TAyEoA6R BIhgudBcGvQ4cXvh4ltJghEd0kjHuUlx05WRSuNGdBOwFDDBWrZzNf3b +OYoPGkl0qRNFYH2c9uvtashc1BLliIYEs0BMEUJWmYfROB9bUfl8VL70r+FdS02+ tawLru8OgHL1JLQjeo8hU4AdGsUVC63Mr6okHsdzXtcy4iq7owr6ygNqa+ZgyM3mA4N9vtngqHYAPrwL /yAG8hf14xaZhsbW4WDR560h6iCCGkZMyjTmPH9w0Ea7iSDEHfOaZLDD+ Tj2SveGBV1H4jwhYkI78LkSlUXrVUODveYDYOP9mncesFrqgybKCLeNTlPOxly89g7qkYOd9Y1hb1XB4 0rnBcVnUMsQKWbAUxmQl9EVVPiyzQaZXQ1ADKmH4sejXYiYrSnZEF /UDpRZ1owAEIns0e3ehVkbE9caqLMHd9EKxO0DL2sr33264hT5+ w9ZQbQFrGVCNqIFYGXH0G6KrCCr7U1on9Bd25b54J3rB9Cr6ZZlyvkMzRpCltHTVHUrnFbom6hb+ aHEZYbHUMwZidpp+ gh2A0bhiO6ZL0TwodmKTNtlh9kzK3pJTT7mSB36IGF4kzDHCzfl6oPboOrNJZWCMj2/ XTgAQ2K1FLsG2z4eeFe8Fcw8/ SOj6paGdIH1wtnWobjISVbNutVCSsroluqHyA0z0eVJg12Lp6dm73aoKfN/aYNFyMCKYN0dYJ/ RnTpvkZhOTkrLB2Rjr2oEJdPAlHWIns0A7YcQ25rpPR+w4UwahdaELQY99SwWja4Wpl+ 0TZ8NXqtz4W0z17fQhez3Uvqsa193crpJ+ jdTPKora8b5zw534wcLl6C8Ms5IGc4eMLSXMP3oTUfP3fyCsCzKXLLgvUQhv00gkPCWn7upJeI32Kexs z4pZiLkiaEGW2XbKnF5QjULSWFEajqElwl4k2H /RGZ3x7vjpsw3jQ0VRa2kD4e21hRmPF4lU9wut60RYPJuPHAMaMnbBaA0Kh/ GNPocPkhR7k1L921HQD8zeFnd2W8pLQX9Lzfmvrlif1W20H45ivr1NFPV50j+7gzoIHIo7Kbxlgeab+ 2Qmi2eAT5Bt7MyvBUvbqgjk+ IKcyNCGJk7jGs2OMzgmg6NLbraabt24dTd78ZYFxPRLgfT4kaPlnSDpSTvqnH5qbwMSeyiyLQbaGnWjF xVJq +zDIfKyYwMsb5FhvITgeYQd95whrpPmSCaEFRAQw7ghY542Mq3U6WeBVo0doWd8ouBJTBGtvi5O+ w84qFDCkGLFiZf53KgczqDJstGM4zM1Yibpzf+0B8K/gPqug2/n72vpijZG19eywzye76/ HWuw0QVjVMKEjFyaUuvodYuXVa9YiQpu8wZsqt9XyTxMk7xJgX5luiICy6eoQvjt9UmMUNyI73NQf4Sb 4wAOjuXEfintZBuZIUVVfzTKHgIuM8nVB3lPR3C +QK5ySBKqV85fY2QbxuoRHEPrv3CGLKVYSEyNesRsjN6nKBEGHdE/ GSgzhTUT9u8FEXvMH1Je9iJrlk8g9wsvgf6vVkuKTJQ31kGtNJfDZJ2AZMkc1f/bZ/Zw+K/ kQ74Q9L9hz9PRFfGXVpzpm8lWXX2pe5GTORqwOXJKukYYwS2N7R9czwbiR/ ww7fmQk45IlHXlEhnbg80aQ8hooN87UeYPf7CGF926xQbxmN0xtF8wIQU6NEhccuk73uRrMUaJqDXsFO spRnyySa +q7zv5rje68f9ereSqQUoEwtr4ycPb7lGNqRQLYvNLSPTLpwCyneqNYV7hTkdG8CcBut+buh+ X0P7oHOv8IzqUFiUx4240emiV4FlOOOu+ lXPlOMWHGNdb9v9Kixx6u81Z9i6V6l466xXrfhwRgdSFrBhBTzXvVX3UR+ QagD1jnwGCxsDwLuiSo0Y95779W/gFd+FKA2rddNGMNiTbobgiOpy/ RfNZ4G5mokLt0sSO9nXByriIFqMefuTIDEE9q6wnSc8aI0uQ38HttqJrpwa98VKo2TD4AvwqjPdb9Dla WcEHlhLgWk +BdGWI7pQDUxxl1mENoNFuXlxXaoGaaVV4YGm3Y54hl94Had+ BejMgSrsMTBNYjRnIiaAUsXUoOsclFp8yw0eOlaB3c+Fs2I7U94zNE+dPJh0AzhOL4Bq89WtB/ 6MIKdCl2fgsv0kYxdfD2UIHK1j0Fwv1blgwz4GSia/CAZxw0q2Y83jh6W1o4hcNcIJL1gZOjhAPesNB/ W5uMUmKMOPNyphmGRiX8ukGVrddrFUkJq8zlfka1oRQu1xP46yOZ3LzxKWX0XiU1G5yBGDGWQZYmh3im G /7At/TIuP28J6WMlaGt7nj9HFcBJoM8QHG01tdnUfSuim20Ixqe2JvxrAyfGXM/ x3w5G2IKd8yY6lslkpooyr10WFfJ8rnbiJ6AQ1nf0Z67bIay8diCzFTOgawmaKEgD9t8zdss1h+ Fhuu1TgE6U0DueZmJ5HIkw64DgIJQvNcajGkI1QHrdHmAOiNUCZbuCmZc5uHfzdVXeU6h+ XhSzOto38P9K4DHdP5xdLvzd6ElAstxq2H/ 2APlVhf9lNpMZjttiWF7ih6yvMbINnGRecwB8N8qqupiBFvJwyjuWt3FZC6g6gVTgVlxfLsAnUgpJ/ MgmhmuISpmeJHaCOzTfIXdWbq/FHgea+tdW+NwnNzZpkS61k8id2OWxu+ 7lNsZ5uromp4iX45jBsBH9HBAIReLfAsBXipXMh72YwjIg70K54Msq2Xbn07MVK1GVH7fq1E55M4JYXY IBvPEHqThiEZ2tK5BthvqFPn8Po5sjLBNPmpdLHFgduyn /xx47+OYfVq2QgRqC8sURk8hOMJM2sIHZ1nPxuOu20GyM/ NenceYyNnUREpVOCdspqt87TMm35O1SuwWfaBjLzoDbU+nwHXdWg0+S4F+x1AuZ6E7v4980/ r0gtUHvk0u2qH+WFYpLZiZI/WY7q7YsoeAzf+ x3i6BunI00vp7vtgMEukOCyfvIK6jk6OCBdv5HiJrL5mnreNNaNgLWrxVNko2KOgo613B2Jf4/ hg1hEcrwH1Sp1S6L6ZaX9l3l3d+5L0znBdaY6k7dGinO8zDKDx7p+ DCEiGlUURYRelyTFBFpe2F7fM8kjq7yUO4231Am35szDwZKPv8xeIlabmAcUwSUPJJ0uGiYdOYyMst5a ayWihu5T8Ns +h49a6qv92SoJSxBvvaS2x8fNkzWS+ 9CiTcKeyIj0yKsYbKPWAHWVPeyjwtGaHfvfqMzunpIo0Yn7Pg6KJYTG+ 3svUueruf7NMvPso2nL2zBDMvhFf5ASQqTbCw+KtT8T+WeSx08WJA72OwM1M+SCa4Ss4oo/YnuLWawm0 + 4SvNke2B4fmwiU1qHQAgugP1LQxcNk7UsJeUuV8cbV0c2MByuyywU6xxHqfsZRjHIcKmte2uWwQtCefu K3iSvPIjEB3pYnykuboRcHRIX1KmgAkO2yI00huT50uVGW +o55AIM8ef76Oy9e58TRh1Ty3rA5bWvCbc9VbRUn1Ysix86T9VeOia8XG7ft7aSugI25ZkU6MsBKmGWh +BeaUVgI6a8rBAqdGZmLG8Nhxc+KGxO8qS98U6tyAyO3vY9p+ vAIwf5EoBzKfjvyZQW1tevXMCUkObgQbeU7CPxISM4kqNC+53Vos+py6ba2/ rCmcwfy5bqHAXEkm76rbFKYbk90QecE8523vfEzQyR3ekAYmq0c9ovU8l517eA+vElkp04wTidzojH+ x8RvdoGDbd98mvRMLBJaSfhz0mTkrwSiPkBM1lpq8iMmmvxST2z40bgNgV33rdygpq/ dhmUO7r7RztZiHvUwrv2K01vSqQ5RiAHDtiJMsjlf6x6h4EbHes05q2WhQO/D/h2KX+ 3I3htG7rlro1pr0oyrsPQ5H0ZmMArHBqmtFmD9hDPevO9ohsZ6g1O8ucREI/ux4oiS5eaC7cXZCnMT+ REcW2ZLHLu48n2Gvchk0WmUR0eGlti+J6fnBAR54qTmhCpfiuTm1iP/E/zsRRHsVr5A/ pcKtgDkfZna7glUkjMxjarYopi+xm8m7dbHloM8BWEc651+CdS+Shs8fZ6GjQnceAy/WPie3t2xW788x +rz9Lw7qZ2Laeiw04pN/ ThXqyY3cMOLKWf6S6ZePe9Az1CmodvZosrFl2k2U6o7Rk6Ac7I23uQdE7OEeXgRpEgi6LJYcTHGtWr12 lgwFSokR1kgnjZm5pN28LP8h +D/RCRq2yodPrh2epsZD2KhqBTglgmgqhtj+rh0dcAlWc31RhlJHld8d1IxHMvMXyzszRU8hzAO0c+ MtR8Z+MW+S8hktupTR3IqIEdrpaeOtOuHhBrfb4t7Mq+120WLi+fjvsqDOZCE7jU8ySUbLA/ YBn51GCKY/gG6n1e+QffZH6TBgO2mDfgj+25b+Ce5/wvGY53rZDTB8EnqUuMIrQUNMQQDoZGH/ szoxc3hXmd2vHodGDA/ iTVThNQ5e0Zsij45afaOrV2mX3irvxiQgRizgO2hTq3vwWalvrUulgLQEh75xnIkEQpVnVsVenOirso6 0z9Gf6g5Lc7lJaGJaHlpKSEc8752uQYYkB7NJ0ce3AuXDOSIx6N2D8Cd0teR1RcQuykwldLg01h0lppT 1r6GJpfVzZL0ktl3AGww +h4jiqwrgGkRi42soF1emrCA9ExkbISOll6n+ J9hmBuSTpZ1BE03OpL2lac61245Y0Gn5LMrCncBOgTYc4bew3q4gGal8h2xJ4nRai1lsiBUn5YJccxp2 +U2Y13NpWb40CWicv3Fg1lRcJ9yaxSdfzhFk45BlHSja6g7wAH+fuZ3jACOpy4expWljJrJ3PdIge+ fgE6A2XJo791hkuQ6QJ/Zgii39ix6wcwpNY1qyt++ cTV8f2ZxK7hsPq0t24C6qpyr4drSmSKVZZWr9IYjeiMvb40eMfBLsgyebWmao49q1q8Y8H4SFEJH4XBh ar5lbkltwJJwXTpDofYppVNbWwGyc1iPOo + 3p5Yw5OZ9oD4YjjeTxW7F4Szop8a0x8l4ndBDvGN6ti5UmzK0fxUlKVYmb96pf8ZkGIvPEy4Tptg7pzm XUBS4 +fPGy/CmtH424yxvg/f9KFOtx6m7+KEPt2bEsHiwsfcIbtMmum33Q+ m1NnqciuH5oGjJyYtKaPZ4g3drzp8S/cLjKXtp0O7J8L2t/ Lnvvbce5bIg43pjGu9y97DlKKOAfbXI7X5Wo8ex4BMCcYkG3kFMRnWcC1AW06nqXgPgfQ1t1gp4szo3A njkL37Frw2wJFhaJf +ttPi+yuIbJFVhYosbGFSXZJHhkevNxVapBJJtxlJ+ 4YvuryJ8iMv4f6vrZovzRiMZqX9qqHtLd3JvnsPBCEuRxWgPGXhyEriuA7QaARcxRZ6wbz0tccc+ E3xFew+HV/8AD2LT/Vbs5GztrkSsUU4Ukk5dpuY0I2Zy2fCrvEP6iDBnuETcAiuqsTajOdg1ien/ert/ Danna+EaKMhfOacyeUaddVuUugy5gXnq0nkDuxETf5sCIzFgizqzQBbru0NwjKcMb/H2BhNzG7BlmdeUmd +G1WfviaCfc8hyozz0rvRHKCilq0yMSTU3UrbdeoPuFlmpVIwYX2c6uC6T5XSeH8HdKqr9oZXZ+ hrwQ0ko7ZC6n5l61I4VkmMk7PRvE3sa5xOau6TmZcuB0G7wPHC2iySo8ufzziPbSn5Z1R5AYXPeXw8Aq OnuKz81EJe5pVn5lTtd6evieqJc4s1Ql30dH +amaBaBXabjWBnufor571bRHxVk7v6q69JJdtUMjbPlrHdWjxtVlo62y/ YPa7K8GszcF0XsX4FY8Oc52rcQUhdsXJ46/KwfzGe89bGDKGBWuw/SdnvsyzWKr6gMk/Hs+iF1f4a+ FbXeveKpRVfEQQ500B1+ZLVdFu7M34YhJ5ReP0Gm/FanTyunrFdx+LbKweC/ x8E6hwzERB15yYwYgqx5fV7shY+ LryYT4nC7ee0V5koiBwcVdGSn2c20wLPM3xeRhKaExCkwMPMQHiH6wZYDNaymZlwLyyYOqL7Tz7FXnZK U1vSbb +81QITDMvv3VtRim2hAf7kkWpZiqdqze0dok3I1l4eXqPBoaD+8cf8y7cpmYhXKNmCwlGQBMqjPJy+ oiga298KV7qaHgAGaZOPqFX8tdlMxF6GSxlKIl6lTDLdzbGu+oeH1ErmofqWb033ss7N4do/ iImCP7R1XSt/yKMeH1wtIhnUquwFwHdCHdjEofxLowAkcdgx8AC3hxZ/ guPQwGIiVcwvXfl6B1H8kp2mGPZN7KbmRAU3MJ75NWZgP54rhU6Li0YobtvKw96IzKBOhz1Tln5l2Ndh SaKVE +e3iX6X+OVg0Y78oCuDOMc44GPdGlauR7dSxnhKmOa869BLSysXoZ0f6+ 7ji2aGEzK0zZ7P6fGKLS19KQ2K7a3eh/DtH4xd2SyAed126T88+4UAyrQ0iOBnoojthQzVDC9Zk+z+ OTb5boH7dTw7qTC9sdp4vAlr+DVcz56tnWHCs3Kd97oKSr+k5jttjyw+fxoQEzp9PzwpApILcXluje+ moLI3IkaLxyVwLtywySby2fkIr/Rjnr0JJeC8rIRdyn+KEmvs9EWMXtnce8yJM/ 8pIOxlt03trSt3btUO88YZxRiMGOFN5OtJD4IdHzC+ ZsmkuNCxB5WrEHN2XdGIfKMbicnAWfjAnrD79jeXKsM9sgjfV/ S1m3QhjihlwJx3tdb37Ct92N798HQTlqXcI3KMo6yo9buEC5Mn2mn1bCMSK5MKgQo8zSS286oimMDtVg S7O1igsaO47jiV0SC3xMKEEGa9UEeYX3dO5pzhC /tepeWRi5KsXHzVbj6pPNJB+Yq8VUWz1F/IocstLWV+ uu6p05h7IzAQtj1N8XbfVwxRwfc6OGFYttsL84uX8TknGAshXwC+Xborw4fE9+ TiQfUzg2CTOWnlIHShteNd47wiVwnyU0pVfEkioSYqoiW7prD9mPBJesvHKMox2QqpaMCGB4arRb92ef QoyQKw5hDoCw9Z5XlP8mnuFS0duwoy3DhRn0U3wj3te +0IZjekxX4aYbU2PwE3CeVvQM6Rj7UuJe6+pB9eFZHbtyv0DycA9EJWZlSR8+FdzrYuF/ rljoM4xbM5Uzxxon+c7IeK9kl75UrbbZDUfcGll0bzVX6h1F3ZQOyR9A/AIZ3mq/ IGzbvh1h4t4QInxPM+ cZoLA0bKE7zvw8qnguuA7TfgaEa9Rh9izm3ieNB5zPOGQeaIEvRTkV3KE6QvMHEIhRXKleqQjj7Azl2+ tvLR7o+Hz+FNvmg0Ve4u0bUhUeUZg1ruCmp2KlUj3bVE8WjLbV0pzCH2k+KJo8yuX9SOajd+/7Pd/ JigO5H1Gny32E/8CSCx7dRa5FStHMykLZAhWXXzpeTCi8x2GQhfDbkiUxBj/S2h/FM+GfhvpHxS+ JTalaXus+TlAFr2KroTv19ZNV4Z0+48G6F/YmqQyplCTmdI8FhQYD1r2kp2qsHUiLR0JKseJnF+ e607DyK6I9hqzpHg8i39qx5bV2vuhS2pd2U2xN8kih4ZV3lf179b+ caHGG6M5PfKQ9lXziRZ46SNdcr4tZqQvwqb2ygH9kfc9A+Q5yV5cvc4+5EU3ha+ qf2mzjbTHH3AFXLgQnIpesxEitqEsxdvTSpXzgOg/Zzw1vDzasOtAsqgavexE7eHgjm6svE1f9hd5VD+ H19pPuBeCW6sQhzb7TOkRjJCEVdFNYcAu9O4Yrx0Ae/b9x8qipM3mn/ WI8y2y4I7q1yS0VAYMV8D4StKPTXNDhBLkZoRiV8bx4kvUfs8+FT7TJhnLiPlbf6JUg/ FtUpulS312QgVOjky1Xz4C5ND/S9V9IuPHpBIUcea5lzRfni84/cHllDXu4ofptXn+ Ibf74wy9yyyKHayeE3+x4SjZUjlhTySEr2FXaLal+ SgvfX4Ou0DOChnjDwkbhGjukdFSSxpHtGXdOg7s6jmDZN1let+wQQhFyXmcaSsQ397aa266A/87Q7+ Ezo6u1AGvuw2OXYaon16ae+vv23WYPzqkwhrCS2j8r/ WhqXxprk4coUeldI8jfCtikiYsRv6dxnp4nD1zuidaEwY2yrBiYTzXTWSqEVrNs0mwEk1NbwjVT0xi5k NmlRRqcyx1v7fv5cmGZYl5RMp7WRJ49n4 +8LvN5m3d9s94oiOkmr8+nSy/v9BBzZ6zrLlTNY+s6me7jfVCjk01oec65TzmVAmGb+ VGKmp1K6f1hk6i5q2+puUVkTZjBwsbZqtvKrMa35oSN8jsNydSTqW1hxbH2Yk9g+ lomt5V7QUyf6G2cqSTx7TvJxi4zgK0odRWFTHy0lkUFgyWK17KBAx0pB2lSsBI0P5p7u/ jTybh8ishk69LgvE0oa/aWhuXyvUoDXCI72gMf1ppTU91lj6naBt0Filq5t9ox/ mvsnVJBbAoocWA3FjlWo55lDD2Ys9ysKu1pTeTGwHw7RD3pHeh5EsAzmZ2HBNOBiCGjuvw57tJX7DBwR yYXhh6D1uxi8wO1joHWmrjIgc5ZXmE3bmoukn28t7fXVeTjqozQpyxZqomNERcOql8rNxYX6KLKZ8wkg UNOuTbj8XaUpXckXS56G3vpH0wms +Tlax3GMWR+2FI4oSb4y9+ lcofd8bBnGq0n5pXnsZpl8EZvBgRwez7V1M1o40UAxAR79qqnp0Av8zUaxuce9+71VpYNKneynns/ ltiyydsidI7djItgSzKOYjuY1f1n1J+KGhapprz2+iaVqa+ L4C6n6sPU9c4nLJmsB2ERNsQRtoYVHZeJdoWO24Fkdr8M36/ z9ewQtG2eNGRJq0E5D99430QP8x0R1AOdOaBlQ7iV9y1M070xJlnymmot59UajNv46qDwW7JM319+/ Hh8g2dfpI7deoL4FaHUCRgPJVZz6u7wpr4deEsHB1lzJnnoYO6scQc4D8Sclsf17H5gkWS4SK5oByp0M 53xAARA5e2gHsozQ0tcjVOfs1crxHZYhI /A8wBfC9tkNha/rJnG07Io+Or/y23J1F9PxUGLItchXur0+ RkphGJIkW08SYNVX4UpM83gS9ux6HCd7dLJgmVRQ6glwBUqxg5CtJ5Ujn2t/iqw+H+ljxG+ wYr6UWwAdcyZzcsK0zEsf2KY8XkRlVQxjDpRM9HXfST05Qdz5jcUl243kH8talcupj44kvp+ 02R5rvLk3/TCPE3UGgcIRW69CjUqJtw9FViOwi2GW7HePP7F8rE1n568SD/ KicvckGnBb53hy7OamY7bIIkffCLrbpth29f9KApA1csoAJ8DgTpSjOvICroKB97ExJRd9qmoaevtpaF r +G2DV7zerf5RJ5gOHNgwl26u++1R+ nsZHbE8chdVSZpLdhF4BMlXlNza8u8O02rddwWHuLYLq7yONpdwByw7c9jY3G+p/ K6hsY363ALhynvP6Cwm9JRO6n1qQBxhpRsmfZGFGYZUNK2fMQRRILSSmEN4AO9Tallq2HT8b87fivTZA siUSxeg6I4nMWC9kHFiJTTDRLRa +mdNVq1+Hl0+fy7n+I2jiP2oT50M2hxDe/ jkixwQKqFR6yBjYc8jTZxnn3KisAKI9ftbnOpSYx5MJ4sgnBilCtYuPw1DeknoXyJSFnN+ BxRhuxAR3Dmysm2pmYkDDCg4vewRblaIQSZTeLNhz7B2nx/wNdH8/vfc471G8n4jq+ 5nTbeoODgEcHpnBHGeO/V738NoWQaZCqRHR7BMAOfxpHeiSrqfjBM1E3+ DwyGJFT4S4JrWMAVnPQGR3T2fl8XwFtyZiUE0DTm8GiPGELU+D1lLORZVagxsWqMnxy/egcOgR32k5/ f8APu/ i1vnmgIgcFxEf1rq9qUbqgOvBSiyefh7GKUGYVHU8Rw5ZCUTyItK78cU2wUcbfbqREtIjBiRxqCj9FOA Bo8lJcEcVmXUj9 /b70UH9i9IV4eMghr0PrK6QT6n/rbXnamAL72zxX0VY0Rk+ zomVAiIkmLSeAdRT6GBwAgFtDoCMKl8ZDxRyPyiPthT1AiA361PMdvnYFgeJQsb508erL/ KJonOxT0E3GeYJmPIxUG93h7SvyAnFBMSZPjxDPTFYC47TA+fa+mv/AA4+ dxnwK99igawnblsr2obD3L7nwXESHvziigPOQBisWVQVLlzB1iAJQ5TlPra17JKgv69QksKoRehWKcZK KGS2CW +AtwPsVSpkElbDVbATRiKrNyF6E41ajSN92+TxIdshfuteFKx3y/Bmz1B8RoNnkonr5I14E163q0/ iOyFvXyaeAXDIGPVBBN35MgMf4RF0SiAMSr+oZfEYOE7GzhINZ4JNTWakNvGDwEwdTdc6K/ TQoJ6RweBMcSoHSFp+CmRQUMPPMmDj22nyoB6qagpV9MRK751IHWnSYGxxWknYgQ1wh8/ mcElpS2W2szlrzo3Lb470h/js8swY0tomrf+ MaQME6u5GrmXlVEldjIrxSi99usUVDUcbP1FuZUJQtZLdTgfdXB+ CozVSL67aC2JW3dm7Xgj8DcUgwQbYMUowuXPNieTmGnUI9dToDOwsV71l2byNIJbhtjEZQEEAzcJ0HRj oFWLQV7jByq3ofjA3xk93S38dRz3zaXTwko5N4scvlgr +G5JyQnCqtFqXvyiUXRdUUHKm45oYN72AfxGzvBfxExFjjSFntVPdFuoBQTnCNn0KTaweRx5S5N5ra2w +SSNWlhXY/EV96gizIt+i5+6f++WMg6h60k233OITHRL6jRtwcFW1SkFQl0WGzGkPuRNO0wEbdQ++ r4gWe4FNfh0vY32Ya4uWFwwc3j+ stgrCddN4e3J4bsTbfmEeH5jWuYdzuladvjaojzEzgbcA1uG42g0o7cX0M2PxEkWUdVSDWKzk42GoTZT zcUQuo7bI06bNrVHMCjsWq48ryBQLT5w1FdCWiCXnPv924E +FLdD6vbeq0OVML7UJ2pMlXVfEgFrH9C0/ EHZIDF7bddDt3rfD0jYT4NYsslc9ofj2pTDc4OjeDnG9jjgevc4pLgW/VjYHSjdDFCPY0WfPKiDIVqcb +32KuuAeNW7jsq/ DU01jJbKwNMUUkJPUYR7OD7nvOwBuGXOMctgjOfoRiRFZOYkvjxbbmpu9kWtpyeS9zkklOFJ35MxhPec lAKYWzC8uaY9a24BpemswWvuhwB4OhlC3zu2w8fy4g63w3ID7H6JMDHM1IEU7tO82O0st4SJ04YTH1FE 9yclpUEraDn342riQNQXMluZs xodwAAYdCcAYHHTGCASO+JyUSUIM2gEcPakOEZQuPM7k/YNCBS1skpmbisPpdKsx4n8kulzp1928p+ r1lzz90n5p/ t82opSe7RiXfqGUnrAZIbcpwcPD7wqNoZA8SjYBrFrubWyTABoZ8D1EcIC9arHFKAN9xET9XkQM8xUGf lTF2ve9KKxKwdbABJb5IKycM1EzZn9Zvhk +cEjD9vcBLhcRYbYFB+UKTvfI+1O4P0Pokxj863g9fpp3/w7nFvcwf810n/Ste6/roflH+ 2k3RmzMvuo3w2O1pWK1qOqAUomNxYLFXvOA3wDZipcjdqPYdj9MRsP6rUakr/gndI3/ OVnWoRgEaMSiDIIb1Lwwtd9dRmjdAAP6NJqzA72bNP/ FD1cRIcSmg9l0ImYATIemkoFZkNExKH0VF3nVDUgCNxpZsOXiwoBr14G/2QlbFy1A/ G5XUyf27AN4oS9uGQA7XnLisTHciP5Fedcjjsusl/aWDbwhyB46JLm2t9c7kztd7h9D4FY8rTnp21xZf +yIF2kvgnlumUopo2c/sp3T8IEdgBZbaYRp9WSHY20oIEI8G0z2+ AIsqPvQGiF2C7G1uPk453TshgAzRoNSG1CquHjLsZGd+1q3TpPtKSsQ9H5V4LqZPwzf9+ FGn72QEjDI2wsco4zc55nN+ 32lP1Y4ek1vC5qgHjviZ88bqUD5D8cjc938AiQsbkDDUYry0AjE801q6r69nYqyvqqIYZHeqVSG7WDZy W0oNnEbWROWOikS +UjPfrt4/UkgYWxeaGpFRVlfwTXobD5P0FaZQCpoxskzq22jd/ So95jrVvwfo67SohkohADfr4SxWqjAuVR00AEVcB0sW8MOPuXJBlOUvDMEBUJ+ U8r9TD8BhX8xE6xKDzdSrJIqdFmn4Mr8qGiCqDHeaJEIORrlij/ vxFbFm9NULcK65fAm5YPMStZHJTgf9FcIWFAo5mJbGL/J51M5C0RuAufp+oU6xF8iKL/ f9hHs5ER85meSQfvQ6mJG5OMBjG45rzjSlz9CKHi1+Mhne9MCWrJMBbYbCYWpplOoXZJMOq7d8XOFF4/ AXxxK7ar4xJobKlH5CS4nvDGHTdY4+i9DgbzPhhGT2Tlj1BOpZ/6sA/ yY2N10y5EY6DiEcOkoHYZ6gTEwqsXZUcQBgjBnxKeMmsNqflCy1bI5Eysm6UIqDlowmc6bs5m7R85osc 28ntM2h /Qrh7MNdVoDAk6y46i5ECBOCZkSvLfJRCy1b03XwYuu2l+ ZWk5ypTkpyO9vaVWpbJUXDIzKKeLUOsY1ObiNoeA3tVOpghGLby9FZPzWrPHBevoCCnw1P0UPENI9lWE BKM9N96h2gvVFLzdCgm4H765jp /PgIpnPAfzk5tkcqbAok/focF8B/PjKy0M6BfZugIBIG3kvnwyeERrauGIT/UBBeHl1oK2tkG+ 3k0bWsbL2nbLYARghRJk8a7cwWdBXfaWeBvB5eBaot9A6bO12a3oX6laaWcdPPJlc28Fxe4netqJMrS8 ySP2I /W6QJXE0NldfbBVDfcGWABDR6rCEWSl5oevALMbzJmnOjlei0Nqk2c25h522ESRzf/cqtGpfZWbqW1bj +tr/AJM/ OeSdSgVNsAmXZCVU7qYRUclTasoWfAiTFcrqfUqHLiCjeJuOuXNNmSnfbUqx7LFPYffT7puD2gcgf8Um B7Pmn4nQxEbIhFN8I6N0JlnAyqMuA1FEyHKeBwYzitH3sCyFgICuGDYFwaUw5Y9vsv9Daupa /Mr31UXulGwpfjbgp21Lbj4FbJ5Ws/ w60Pd85wOuGbDtKD2hHB60wolIxEjQPnycR58lSi8dBu0eoM0pj0sKHSXt6hAQKNBoWQ5+ 8rCXWjZxhrtT1Q+yTYwwYYcv8wBNubyVfW1B7IuMDrShMSjUyTh+N/DmmeNfDt/ iDwAL6rQyuiuP5DJnQyRiFLMjLIpIcS0yeDRPk3AsOiaNSm2CrqT6oKvf5tfGH4b6qgJhVcLdi8JTxYh XXVJuzu4NYF5gptoS5Z6l1Oqz4BPXJyuQh04uc5BlK + 6sco85cTJarVoW9ipLplyRuT7Pz0ne2CteeLIyoqytEdOqb2l4Dj25qqYB1jzojKFpcvLUTiyXfqIVIA M /FWZHvkixaXA47bNy5hhO5A0FKwuR4SqW8ph2rIyCkU47iDdlxps2lCMuxduQSuB5Pqc86fShD/ DNt7YoK6fXE0LP3K6O/hFWZROVZ9NtUA/x0P7BzdQQNcCBVoYTPj75B2eOSp+ y9z8GLAFfS0Bdhwj80npcEWupW7HY37yVs6WYZcXEHZPuQXlauvo2pmLfLAMgn+ o2K3W7VaMNeMuwxh3cUIusxnXqWx9CFUqgWZYU9PcATJLqwvjqx2Z5XhOP2GcQJgtQVTpVqpat8tUhxc JaXhQkdtWDdbYf2pmmPv5m /Z5wpjtx9GltKRwbn1o0sCbQgDdyUouE9e2fKjrpg4LfqX1asd32gx/eX8P9WQe71xZK6gtY/ ZYVuxSQ7F4KYVC61q3zUnXIMDrzNzY5vGtONpnmJWvVNXzote7PwXi7Rpu1310OQZy/ rdHIeCYt3dFhg9ArYVtVdXuHXNVnVxT5bd4fl3TVYthfR9nM5nx19JH+ kReTVpzRr8vIH2wInxbfbp50pLNtqDKu+r72Wm4j3va7T2xivKqqI2l5mWybD0wwbaUkcEnX+ VmwzX6lKJy9flH063eBme/LLq2k+ EeFzF3mNh4mek5xyCYgtQqSimBKQAa3DOsBHRdPK89przpHv46ayOLVU7O4wBvHZ6ebFVTD3q8xmAJZY Kjurva0ftkfb +cntyalZoDExDM6EgbZNilc5Msw8keQchAUjluFHpF8VHpFlsnzHxeNnArzl1oiEQb8Aeu/ BiBwTf6aEyGBeFaowZOznURzwcB1PS1ZZSmuKv6tzjVh0v5VlIJDeSSNaBQWKUQPVOCQzxDEKtb/ EVINuasUeKgjHbNsiCZhPueOCGOlvFhCVZQKRnJ6lyjc7hunmFzx7nug1fWW0MskrwLIweFE2L3FJuXq HtMMHK6EzMqSXPHI9pjoSKUGc8Jlue3OYer36O8 /DNt8tkqItruS4DjMyn3bmSm04831grDpVz/zPzE8b+F/irYePbq/ AwSylhrqC0ka2gKzDQXoDa5YW88EVLY4mxLSZp5lJeCeEcXs2A7G4XeLcGFIwzcwodf1A192YBaPHfkV HnyRGBHFR04ZC6T7qeSlylWUQfP3QNZtF4NQBXjpPaYCQCBYsOOjaluyYfx5 +UH0/wAU6Fb/ NQjnvpETMyrQzaCwTYwU7rxcrz2rIhEMoYCg90HLGQAjAm7BYaC07j07Hods1W2n49t3Zgppy6XmPL7C uiyYCuEvuy2eNNzJkbw0lMJFEi /eVIbvf7MXkKyp0D9N2bvDlkgAecMVA1V71AqfkVlrkIKVAiFARW3HZlMOY4dvVSRxdohWtrK1rj+ wokMLpAGXIktJvDLu1UHUYrYs0FnZWG1c+k3b3+lMJlMfHAUgH7HViRFknVC7JP9IoIj9GUSdFYsC+ 9oqFxqtemHzZ8jf/fEY5joDl5SpisCoN9BEPtgzlp5JM2VS1GA+dxy5W+Cjlg0cmnI728EjOk/M/ RFEIuyK6beMcGaegGr32AUcjqLTogAMyw2AGkpp5xwnY/D+ fgpxDqhlTQNiJHYfquREWCXBq3RtKZLOtrLQqomGpNEBhL4D+ NxH0UlBfjUrl7b9bnq7FdtlwKlmS5dwARQ0PPzWU4is1ppMXIOwfI/ uIEsqcKuTHnzO06qlSOHoNufd75XNYrzgxLJCyyEO1VL6uwr3vu/ ehx1ZK7OaL4qOxwHoKoIrR7QbbDQsQ4vFpWIHIi3CZDzmAlhptL4oTfeqNan5Sum3hey82aZlv+ lK1EABfdOLoddruO1rXeXuwobEgk+ 45eecH1KTP7y7d3lrKai2tF79lnVQUopML1Ix1jK9XhmVceHyVmr5k09MW8Mf7z+ LeGylC6zcARRbJg3yMehBeKAkRYyqO5Fm6MLrDQWRqAztKVYi1MPp3G3l95Cp4VcPD1d5NSyGtNBuPuQ sQ9DRJI3vSmu2AAbEVwwKWYuW9dXA9BScr5 +n0h39Hi1Bdodx/ zDwhl0VUSCyZlW71y5OAuPcAWUFM5gWRYNcQpxUTtnogqirSbJPquxuabxYkBjAtaaB7e6bjwXTHYQMT EvrwYzdcvsdnE4Qukpc + mNLvr8IdsAgrzqftyJUSYkUXfpScb4qlsCNMXZKDLuaZKg2VwsTi5fCUar3xroJdML3N2wGqoPz3Wm8V 4H5N9C7P /k58I/ipqlprH/ GAAv9vw5Vuolte72FrdXwAkqtdOEPzsXGsJJZBBm5CX0hA3bxDOzAoPdMdChfW9vXefo2X9iA8X3GNWF HdRnHVrLaBE25BE8hvl24izfoOS75Ibi6hcyhl7LuNBeur62jv /vt8O0J8CFcN9J5FT7tu181Z3vv6qFiZ7imdCmgDYiSbWqaaAjVoNWxHtmRjXgWMM23T1WSl1Cgds/ ZgpNTwuTgKiZGKB3E3lsDJ5oBWH1dkoHM9fzMHuk/AB8S+k8V+ FQmAlbThvGnQrIgKv0SpL9cFew69q9hF+ yJqPOQMSfRQcKP1NEu2jR30sZJVmlOUytjMTVWJPpyC1zeZwPYARbdQsVjWEWXsJsZWR2x1lfzHH586x rr4W7AwuZPcaTCAXd2ycnVF3EUl6Fg9pXnasynv +LzJknSkn91h8Dyq7zoukMU8hhinmIAFu2utqTQMS2VZnnODe11iS/ j0kwB7Cj4s3Mx6osCu8vCq7LHUIEVUCeUJU4rmP7P31myPA9FKk8MzktLrbATQMR61mYI0bxJTLLNtIb nTmBAYaNFRAuhjM08r9P5mGoZKw /iYTTx/Q4uYWIbYZAg3jIzy6tEH7Hdp+1CbGkAbsO5piQz7Bqxg81+skfcTlbF6fqRMexmYes6cjk/ K7WX0m8WWW4kK3TOBh9HyYPxCQrrBSF6F0dQsOkfRcObwyERFJVgWgmpYoxatftZqHO0e2SiOhC6g0cn VSRMTGRVy6OoFu7XNQnMRNTTRFnKC2hLl /9due3Hg7hhXjN9/ixwHOhriqxXXSjWrZLA8IYxPIwA1+Q+ VoF00ljQOsLinm2IkBkUuhetoogizZcYDKXqMwSEp8mGRDWyU8xCNawTmtOAb1MUEEg/ v32D78kG91Y6yvaNMKaDt8+ 2Fi8lueMULADr9CQ1ce90zX0OdTBxv55m4fYu0Ilx8dM6bemfzkYBZl6szD1yX5kO5EYeEVozKP4FguE t44bir7i6qoWTiQ1SH7eb5nGp2RLYUWMssuCeklFf5WACajb5X1GbiXdcOGhMawQvQP8GV /HVrDrHhG/jFxpF69/NgOHj9Zw0tyfahAxKIzWfSzD4woRvHUXaaDmyk7t9zyRidE/C+o+ MnZk7qd4HtlnyaMA1oqMnma1E/YYvJMFPCcRzbDLqGJDhUbSbcxP1F35Nlt1OO5V7CY7J4zxvG4Nqt/ A3qpcloza38RYvtvAF8Tw8KRmn7B53wU11unTHUS0yt67k1UZSMkUCndg7GRo1BtM7i/k+vTZ+P9Q+ ReiyWu7Nqed9+9Fxe9bfCtQegnp+ux+I2ez2D8/mnMQsZVXMjLgW9boxhsqC2rhl++1v6Fq35X/ jGOsCeJ3fh4oPzeq3hsy0MedQBaa4r68Lal88FEsNb4N10Bu2nYoTSHzd8XxkN0SnAcs+ Ox3T6XnKvmRUxGN2ZDs2a3bjR+qDy57u+eMRMtz1WgBjCAxdY/xReDXM73xj2q23Hc5J1joFg0t/ mx5Htw3BGL59X8VfpAgt+7qU41lKDoY8MvDGO9eqa+WvB06+ Vuxbki8qktnkUqDlUKUqkqKq4Jeg7abwk2ImGC5lruS5NZH5arhI3OXAe5DhnjVwOP4ePQeJagm4t4nF upWxIqffidbZZOjqanwoo5BVcgvQXjkfiAjEtF6ZJkMOs0o7XhlFfKLl2zXfNV5IGQgYdkYLJbapBA1A YeG + P6Bx0ZY6jF2hN3aHdxzDpdCtqUnkDokzptIVXet1qIq7AAyQrGodTZ1VlaTdAmkGihH9sb2gK0Sw0tLj 304sNQ / hBPfUjAV7Z9KVKpA0npOe6aqFEpUJ9aCu1RYN9xkJoRbsPnS4opzos2UGQSpBsgNlvVqvnYbwIK44kyn ON86fRqKOmDxYrlB5LahmGeTZVtFN67qr0dYhDKNlLq1fzz52t8B18 +g1BLR3nB0yl2wQWgj5yNFwbBK8VyC28r8YNo5dMN0frcudwy4Ay7uVo3ioA/ R2rxGCk46nRwAhc4yzHpAq+w0Ido2U7o7GXJOJ7PBnurxQugWNuWKLPc6J2N1ws5kQ2h5CV3+ 0M7T0fm9UEl+8dfhlMp9q4iclyxbAwjY8e0KF8Ji1csaI0ToG+ BAkUIqH14hiQP2g8aCiulaPVe6s9OcKp+VDaWVsXH+ lvCsrj9ZexFrSYTFbDweeXAus0q1IEX2I5G7lTe2F14qU0AeYuPmx16l2AK17PUG7tfW3jTkl7DGhd8M ohmEM4NhTuf +v1uKizGCXSkcPBozAsLV76u3cFcrmem9G6wjsAKsCC72WsRt9bUkagGWY3uDLwu2UvTTZhgqOoV9S2C +NoQm3unKfAno4iyP71xxJ3t1kQVlqDdrYcNUlcYI0Ert3mN8oNVNiO81TKg/ Hrg4kY59agnhkytFa5TmW4O7E1vhvvN6ack5M5EBLODiEtmjvjQ3iYhUaDZuLaGfiq/C/S/ KXauCqL7um8vr+rabp2p+ XIbQx5ihCR0gJmAwZeTvvvtJ4obfqqilHv6ThDnylIXR9n4VokIh3U8x1v02HBsVX25LStXBhbnVr6Qa VzV7yDVnl0oz1A5RJvxvwUU4t2268a +7VADgtWglZpMe65BHwd4vZ5fok80JbNZwFu+ NoIwjuoLapICGb3tx4HpjXwQ1g7SCov6yOI4C1qDOzgKqK9BwIPupik1wzTSBDJmrCONjvhvqSMuoifx 0hUxAfUiba9r6shyg3Mi +mL46IrOmjEQnBp5RKtQlGCjwgOK3UJAspgTzA0K/EzOdyN3hyuX2qPaKfe0kud/ MXUk7l6ceb7m5yC0jdWvuPCk30PuELNhYCJ+ xt54eAhEmRM380sQIJlDYlgDdGvkx6C1Z3oQIlkqL3mIHTd6g9kTiPYXLLbQSidXmzDiW9fjxFexMplb olt0e +na19F/ o2S5t9mPNeLogEeaQpdqOzCk0wC228c2c3XypoWkzaUmHbYgqUq7rHyXrwy3Juirm0Ec9kfFt9PgRyoy 8brEoEqS1WjdB /o4fuYLnOe0oDlennpy6Ll6qfG89anHTeNl98bF9mo3cZqOLagXhTfgEV7LUw1owpQtIr0sq8EeKvCM/ RDTfh/RQkVl8nF6yp5jv/eIMoK4iTZSe5l1p2GbD0ULkr8V06ldr404lCAepyOYvy7n+ Mvgw43GPeOz3J3ad+TQ3qK3cIXzNNw848df6FbNTASZ7aNhneYK2gfGyjJxDLiPXCh5bhJ7K5m5i/ hd1JuZRdXfQQplZU71YhMyi6cmlN56T1Pqklveeee603q1xSui4UhnfXEiXITL+ edXktSsfNxpBWe3PVveEcI+ dIsZHBW83s4Sijuhrqu5NgnQjfCeaK9OpZCdb1S4yxArDxLJU6ejkqfcXB3HQlWoVYPJbFDCisH4K+E/ G5nD6K5L/ qTnYwvj93JXm711YXAlHEyhJ2rv0NlXEyo0fwMSmxTFuEtF3Ho8VUAKr9lNQ1j01QS6U4srVseKmcIas u72CSkXtrC5K9Dw8syf380LPNGQrDJSCaxKb9woVglkyH /b2zxHt7tcsQwmcX5EpbtAwmaKX0D8WFUVksJbnpLjGJAp26TjE9hNXabLO1Eqfb02rmgwepLchE95Z8 /zmri0oiB8+WG3kQj0mtqVDcqROpjaHZpz3Oybvy/MzOQjuf6gWa2Ka4nDTPx8lKvtp5wWQhLis/ hpMoqBADpH70szK6XdF4THXvhHuDpQM55t6DCb12vzQopS/Z+wye3BJFzE+ GFdzLj27Vm55ix2koM50gale2wDhPwdPuk+ 5y0p9SRfBbzk2hacoxgS2CfBz3KhYlBjBXDlsFgmcvqe41GSqek73t+teD5/N7y3PrOpIV9/y+ eJi2rlEDzpP9vGOOAAFwilovrwuDnMc0p5Y5cY43bTGfQlwQtF9vDm3O8PKCB5AwIEDrTU0txq+ 0t3enkN+bPiB4+ 0HiS7TykD8Xd7cglyr74o3B4wryNZt3s5kp8tkZy9jq67yHZaem7SWPObaFOMk7CrBHNC5lBpEo+ RveqbQcbG9xZSdxijv2jfh0gyjykkbZvijlrBtXX4/zFG28LUmYYBf+ NM6LQ23F4BgWpxF61IiOxat3cYVjSjn0gZMCW7KvvKzDcJ+azLQ2foGD+wYtmMYwTE6RJdqMRlmM/ MSs2GLAS7mauK+r3yc3Q18L3AaTrhjNJwN5gntlONtydijBaoNElvqpJpWRpOdE2iqU+ eFCuWozSJb2Ji1Rh87d8tfS0DBZ8DUXx88gVfg7tTb18ybJ9py0jiIan+t5LiEEJ5pE/ BDxHreoeJLSLTrjV/Z5f8qbCybR0spc8j4A+4M8mngqs3r1uCqTtBdVYeoeBfcnKEIIQj12Fq+l7W4+ BSjrInAcrN67125RQ+r1ekvWYJQ5fABd94HZO7HBNmxg0pq/isusYaX4q3xV2hmfZI12E7MP/ kpZXxzgn5Sh+KuBHCYHsuv9WbqhZblsb3I7/ UttbRzhoJSyXB0ZiOd1j950u8p3hlFemTPADFk96wUD7m398Zb11egfJ4sy8xUPWo6iIj5783D+ K2E5EJ3jpBq/IVvpGnpUeI26JEzFDRW9EkWLygV3wXNB8NO99a9xmkqscJ1ong6o4gHAXlJ+ 6Ghnh1rosoEP3dNtm+73iDW1KsAbXV8bbiDoz8OxE5m8+ 6iEJa6QjPmRnBSEDARZH9m8NDChgTTQ3n3JrPqtL6x18v+bjUbh9Sp/etzt38TecipGdibh9t0jG0+ w1fwZ2sDwE4CiZ4H8cE0oaQV+acalRA2gVXiv/ bXcLsIRdgghh8s3dc3SI1ijtTossq2DEfkArvtPTGvPskLgGGD8A3wiY0gpWo3hqFaNgsVxBZZN59yA7 73PqXk90RtM42yjbGtVbBb +TrZon64YN4ASTjuguzRfw1h8X0+jpDfcPHi8F0EdSYe0ZrVPyEvmkpIXR1w2L/ mx2qhQhbxltgomkL3xehpitP8yVgoPIlnHMYVxzJK9rvsiZnvA3GPlh8KQcESN7Vxukrdwe63PbG94nd pdbSQAS8bjhorOfhdZmjFNvgvOIlVADxpcHaofvhXHF3cccx6RgZfV8I2 +mryJITkjVsd7Ec3Ahh3yS1nx7wupKMWTBDs0mU+6jmE421jXojwWDC28vT3jz7wy/wAN+KkuL0m8D+ EL/sJY8bbYeqxg92DK7VdM+E34OQCDcpljaM8hUwSR34J+udYrF5dZ20vI6zvPAByvk5N8mo2u+zhpen /2Sg3NybeXd4Ak3GcXsgyxVcha7kcpyiaAL3lCNgcNUUNknf/wmI48JkGRkbGWHlPs7+9tW+ Neynb9BYjH6AXaYyFwynEEoim2KgYSNNH1vTDdheqY6JhsvMHjgIc/ omMps4oWM8kHQVQsvHakdkiJIPtXrh6TycHf6AfQVuHsa/mrHBnuP/ iewgIj1CRXcXIjw5V2Fo515eYWpR0fwQHwhLuxEPeF7xftW8px66gTDlgcMYvp0Wyx7ego1pkyObrvGr 3bqe6EbORfwqLAWvpp5Z6J3j2q5nGeHHYZaHjpXVj4pw3j87zK0x /4VwtvoGl+EpdrQd1RaKy7bZioSKzxR8ieH87A3asf85B1i8SDCf2zAgnH50n+ fvMHx0zcZ0ZicdqdvYkftDgAf6YoQQNUxtZ7sh4IEb1OlWp2HH1bxtc+3w1nlcfHc2IXfr+ oN5pcVZU55gh1TyfBR1tmfnDiBI5J5POlZP8q9D8gy9no+Gz1mu7gIIiwEc4u7neMiB+ 5oX6ajdngXqictx66uQo3kesox6+SNGUDntXwvHpxcGR4UhMQfq0iu6m9uNsweatw/NV6+ Kcikno942KLA6scneAF5dmsMxxM6pX62Y4dhp9R0Rpyw4hr318r6FwBryvbeUco5U4QZNC846B4AJT11 cPxqs3cTSSnbwx1NWB50n1ZG9zVw0dAj0B3oqg3sS5a2s /TFbbirbsJ7Y4O7kufKYh3VmrssC3puF7bH9nMfkwCXqoj41I8lfT6a5xGKNu0mq1C78hkDe9oAn/a/ cYsMdH5t7ru27t7/xYJ85jgWl53mmXods7ga6guntvoee8Svm9B0sM7fDu2PZiKSraYg+ HEG8wO3orrAkp48sXxItiO+c2mtfpY0cr3pLoczspYyjRNgl4peLbT2b5IqL6YIOFC5Ms5E3+ PDkhmoN2P5ulpTdWIjrapeBNic4eHjb8lc0x1zG4C0Yt2B4HhSQqXV0wYZq90jhVpdeS7WiLchkqghuh NgkXDjoPeQ7DKdYQd8rEgNTzt6O6Aq1Vt5jm9E7qbdjGm6t6vO9W /o7oeCmO8m6to6I/VT524IhP3caZkXEMU9a8RaN1q2t9AvhG1a2g1r+E2sNK1+Q8U75ymF8e+ j6e7lca2ViqfN9W0Z7w24uo5bdI1/pt4skyOnw4jOT3aJ6C6prJ1Z0uU/CM9/HZ+KtF+ 9E16A3bfN8bizgU/9gxkhvsjpjQa367+6p4AfkVpzF2voHeyO7MvxuFhz5VK5G6j/ ySIYrV83LFaMB6MlJgfVVi2yUpLVBOu2szqL+oJrMuwpIt0i2DM2r0PDqYCpj45aG6/ t1yqoPDBz6Bs2j/Qi46kfPukbJvYJT0hmnFAqZeoPeVnQ5rd0DdNNTTJgnh0oIF3n+Bgur4mQI/ F5eNWBqmpa4N+WZm8iMLilcLPA7aiAS2EzZ7LhYoVxVIi1iQPtQ49WpryIR49sjS5eV+ uBJgUhwbuxSvTeELbyO6w54MQzuEpfbA6psiZdhZ+m2+uXNvF+ 9o8a7gH0FXboevw4DhOZwISyDy8GrX9W+ GqV4GwAlbkqeTc7YGrsdfNp2WUWofaOtbt1A27dxu1LCgkrLkMrc2nicfQp7z7EarrCthZxWHscU/ KEmcWXhYTY4ExXkTtycI0h9XGQb29Q0yEtBDf6MK6e4h2j8kMco6n8WlYRL67NWivowe08k3cwzhKks9 DvhqsbQ3weMdciBP3q470knF68zvlsMyZ3vcyBNCYGpzddy5Y52POozgvsUXHpWBcW6lT + XisqkzB0qgle4iuqVJS147i6x4t848m18nfpxryxlWBi0yAYiIRTLu6E7bM9Q2vOybeXSp2yTP6XddPl Q / L3e6W6cpeZ8duzf5G9CG1fa4kaabFxNhRG1QWNhQvHeZWf4krOg4YxWQJ4bjfSRUBx9BnDC6ARkA0iyh qu1cADegwEjCc56C0z61gKPuFgtEi +uT9UDvuxICThpWTI1M+wwykkSYmfJUmJGvT2EQlOaI9dYTjZU0DRhlQ+ gC55wrw7sC6UjywyP9PITb5fmJaY9bqWQdRHPS30hRholh1y7qquBrUSVDuo5500zsplfguA9+ fAoJgzi4jupjfQDtqxSd3ncs4qp72yldGp1DnAQ1S6scFmAmy0pi3L6HeknJTYX5BDXSm9/ NIBA1lbgZy5zNDN9nf2yhaHchgamHLEEYX0ojl6be/AMd/a2sTxuSEf8g5QqPtpp2rlZk+ jhhumgZDWFretaQa8jPyTKPigtyU8Epb+r6rpZv/ FSLPGPn5SG5r1TtLNp764NlTFR7XdlxTCzajbE2mqGqHrxngry1w02SBT2fmyXBAnWo3zvnQBwaxZ5Rt GWO4 +X5w+O3ieHw/ ehfxIbJ6fWR7FDdMQpYLsCqi94e0HvFpNVTRXmNvsdqFTt2y425rbXKvUShFwtXX4xij7hU7Dmb1rpdM 51eofqEPQrLvpB8TvngcDeO14MqLuSUI6ljBjbzU3shedwob5Vf0ruPng4rtbH0OUlT2oNhcad0g9A /gWnNy9p4K2pAm03dUuvCjA27u6i/bLC+MbadfIJILjTZ/s/lTywy+f/ Yx1vvb97FrZ9VwzdH0MQ9e9iWf6am3tl635a+p+RisD0EIos0dShU2Sy0Ejjq9d5uQ88P3xHmQJ7jPl+ AGMkqbLbgfjHON2KQP1Zlh7P9Cjp2NEd0VEta2sWub4V5NfcNj6qXr7ddikNi0B4t6RgLSu7g3q/U/ QDjn2yW/Bvh/e35g90LbzCFN8XhN0BPc7XYpAJoSSgx32+ uNxupt65l7oXC17Sjpm9GDlKrw5Kba9J857a397iwqRHqF4N1koFp6bya1+ 94lC8clVNcBSbLyPwKE3o3RZWHOgJGl18ug+tga4muY0m6ZnkbOidgiftqfqLgyD/ x2MixWkukV4R8oDa4P1tcNhkzERe1qAQMOTh1im4lrm/ xf6QSVX89H6t8nxBOalFWVDeyOq7haLeEGiMzYp6UvKXqEeFkFiL4swX7z3JQXlkFmuTCOgriG12qqg1 BSOgAuNbU4Q0zMcRzrB6G9LSGowJ5lPI /AJYA4mVN7G7l02876imZ4Z/xWQwbc5HJYdO1uuDc4D2KU3Ju38xCOOCfiku54t+ LC7dM3Un9hMeaEAaRhjx4aZ9n+ nk8dccPRyiq6Ar0T1H99IM4QyUe47FtlwamQLEaWkLDjRWjXo3W4wpkKk2jk/ dXe8tA7AnFU17ESDn2TH3BHUL8cs8jG8l4zIgQZnwOiSruQo7b2z2l4rnE42ag5kP/UdXF8cuooJ2R+ 50CW4V3jhIUr7rLlRIpMpxKnqbXieQZdLM+KT1hef6G84RlEwMbPKxotMN/ 1rh1a5xUEWNo1qtPciXI65CDI0Hr+nPDcx/t7Wcq0E1q1CkpmuUUjOsrcOnREb8Ek07RR9i44Q/ 8HagAGkrI8+bYdsKdCiY7qVG9KH4tOdABMRFzckF9r+ qLbpmU9lsr6RqPSZ2y2G1aBiPXMCSrqdstaVkkW79sDcE2803oDfKIhLQTWpb2iuAvSPfNhS42QoxCC3 steNlhx4d5Smpk916jp5v3xUFtYTi2lHuirC5tThewtqfP7uF3i5OYv38iA07l79O4PmtlRXEeB9a2Ry 9ffj9sJ7r2w /wpbg2E2lViEzhQeGfd6BSb7vE2HF0dA/xIn4imXdICkheFgSuTFt7CZxbNWoJXVhhrTl3+ 6ZRoDQBx0kNXhxWREg31JlAqlsQvyipc/JXWyjqYeNMBcdPw51vHT9eltct/ WjmeJFpKRxbdCOIUVrmjtKxyU6q2RTCSqOLUpX9eCQPcUXmYDfizUb6DoJHAYd784JRWWInFdOxBfPHh 5 +WYYUPDBLFVmYfr4lCx3qCWmTSy4zHqUQZQ/R0U0rN/f/mMU6OhG4nJ82zMrwka+ xoafn8egZpVeJxcOrfCYnFUFqnBju45TjrzzEFB1BGKyoXBA1MIp5ObTHqkWUOPn9/ l7jxT4yovOcShq1wrASZD+9ANya9IF4VlmW9RmzK9FmEwbyV2gb7Pnx49LvtfVT8ZiF7/ I2Zx17XzpxpiO30BKwocVIMVhwTMshK3+ 2Eb4YAT0eSFSebW8SycNXB2qCSmA6vi89wrX8LquorOtCWHOtRRPVYiEMUzUKVFXqj2h4wEyrgS5130E mchq7VmEvtJpt2hdxie97gmB251INxFYkyVy4D0l1caaR3EvTvYFITnAdDiqFKtejmDIVysYbIOlqYIH VyrSqFGWLK8n1mdhJpYJo8LxMwaJfPkHzXqMxwF5Cj35 myNVFjcm6aWYngqwgyLUpBTOBePDVnDH6vG6oXFYDIpzUk1S8w6Z91moICASzg2A4E6OqIOMipm6e7VQ ngnONuOcZPPHPKnFVpbg Co1LEtICM49KR1DDld3pV9tWG3IFH2LBMVn8CuWcd8rRBIVwPKmQa93uLJ8kCzZGreH9u2jmt9PfXREY tRRYN0wAlj7jnl4MXrwz wOL6n30bq34k/j24Jg7sxcd1b6MBLbtDF91+Fvo9XL9bRQ2vzhYK52XJIXvBqJEt+ QCWbCphGL1Evkvvda3udkOrJoKawctG3fjGYXYLOSA77U8HTt29e+BqBjrYwgc4V8nHQEuD1h/ b7hJz8O3G5H3g0k+1tVp+E9N5gM90hk/ QxPZv7GlfTs8WSWkB4XoVlauFX9LQxp415ceVr1Z6lAIvRhPbP4PODAwsLIxU3BR9UzsJZ1nQ+ tVZCrjX7ooDllNnlwe5iCdtAeksd63lfUPPwlUPMRQ+kOHtM8H5fSV0CY6L+PLuQcaR6Mw15cg2+ CroE66t9+7RaPp+l+w0l3xxolGwmBITSUXBOP/ qBfVHQIPlzJ6XQ7jJXiqm5cfIPITSLi5jNmGFMxb6dDcICLSHDEMEeHvT5rf7MFYtjyeJqHpnpAYFK6l QyUCacNFbUQJrF11gwsRA9AKQVDtHrqllr7eZBWdGrOb0NpeUXD3j0hoO54Qc1gq7 +i/DT/XQMRZWRJq8dBVm6h6R3fQhr87/ LdF7vcIkF5T2u9KO2ZKilvnJT22RzA4wdHdQDvPElQQ6MWTttcILeRFhZW5wxKJh6wN8XysQxfk60eyn apXly9k6laL3365F23YESTfcudgZID /Nu+6uLVMldhhTRZJQYQXkRnt65u9Z2aVU/ oKXzc7kh5Slxpu6u13u2aTQ9d4AWOgM08fVRMFblSc5Fw5pL889omER2hktJ7N1IxJqGDZ5dskMTeOGX aBraExsX9ArqZHFpFEeUo8DhRH4VJUJ2zgpdPXUaSaTW0WgsKNjD2mIglLCpyNEDlEu9wW1NsdllRQV3 L4oECTsoBZhGszo9p +sgw3KbITeNXCR7eVsdbuxK/ yjFdzL5QUO1fde2xcpFboy467VHcUAwSM8E1WUaWNGCVo47R3RAPzMlTDgCy17yGuniPMYn0dnNMZAms dJYBLiulclCFL1QOFGtIIzVjWokWO8qsrzGp1369O6eAjEY8mxz5Bm7hFr /IgBOnf84xp+u+ut/iRjKMmFdrvGEmZp34K4DO3UFFrkS2QMugu+ JYIJykHsLY05ssxJ7TeWSiUJVoIEKxHSVMYLk62haEEBoczKXYylC4ad8M4S0EHG7tfACSTslLOenZUx jRgdor9LKRDgptbA0Fwf3Ofp55tc +Oa65oblvlgg5M5JF963prugXoj87KNCHkWCgxPWT8DmPXUC0cF/vFvJ5tyRov+zF8rO06ILnizicIZp / qvlWwMamk0hSA0LxFaaQDvwvLHBMZiQtXyZhdalXIGeq3JAMN8PKPuXxOrbBgmc4VSscLrC7LZZx7UYP +XrHxePPq1ajgf9T897xy35SflCvoi5/ R3C17K3Tzck34433YuXQtswyDp8UTDTeLzUp51AccIZaYMVZMdYwZqu5f/ 8MkkG4h29KPASgxMyNNL6SuH9c+FJJJlkJVUCZkVHxPPhv3G2rCxI/ vXsk1qpZLXdYyhOWmohmNfG495bn62dHpYlhIQS+GVTZCAT2YK/ NEO57D7Tu8Skk9uZ219euyEu3FrtHZZFTiuJTeeEm3HAKC59UItSAViGmsCm1z34+ Ghw1fo4qZT6RV60KXQwqDcJ3u83nX5M8fvSDc5fxxR6nqziVcNitLyEARMQPaJJoV0zIBSH+ MZCmrs4eei2cfm4cfGxS1hN1IL1GALRNGfKsBGn7fkyHjt1Nh6BS1Lo9HCviOhhIbSz0yQXcSf1RO734 50lXv53cnjd9v4ni /wDSnFpO/O6O3jk8BJ+380bu2EYxVVZGkzRORTGMmukI0DzQMIeoObX6YOuR9HnWHQQbPOtoD4IO/ YcKLIdoOy57CBJJ24eA9SYAWjZNYrTEP8bUC7NsYQVZMXlUda+B6AS92mnUsysp9Fp9kSl+W/ 8Nyw0gM2w/p24pW618q2YdCy10DAE3HU4QJpWpll4c5dcWDetDoeLse/ lyByavVL7Gk4ASu4ue6OerCfkEiy9kQuG/z09U5XxVOq9LQHuedMHJiwFR9+ d4sPixT8oCS75tTLVppFQMEyu6MaUKMZUp2CRg+cGu5Yj5Kf72UmxTJvo3v46nB/ f6YH8cziFN2FteX2rlhrfNZNOWNSDACbcAwWeFlaRhJg8Q3BxrNLqT0GxWGX3Lxf2/ fjNNFIA9m3svxKNBSGGiL0NThmmj4pmNlO1yL4CEkSlSuVWmWFKSbwwuDxuAeAAJUJcO2vxBm0uZuI7M mm8sUhCxgEBJtzdttBwMI5GiYqsA8izj6agY +tnr8/79fB5DDVcVLOOkz4+/ T2y8lv8n8olr9tGWiAMLZydE5YMJOMEAVsCwMyj0rvLofn98itRABzICyBX5RurWj3mA0UYQHpg7BUJG 3U3EER7y1RMiCecRkYzvH44vlxZOZxJAYL5zvOaU +D4ZN47KWMqIgXqGsYb/PfFTmrbXNPhTY8HFe7oUPKBJJ2fQj9vs965+T/A1vQ5mWdkji+l0+v5y6192 / OlxAGbS9niqSNVLiLFhmtFBPq6qoOPmZvkbLHSIrT99t2mv0qo4VnrXRadWHypRMOFKDSJ9hdBVhJQMC hwsvi4WDAOxCnX +XImcFV27PzPQRzJrFgAeWuJYIrBxG0GDHRlR+AAMxSGe7D/ P8unjUEXHkOFCMg4mqJGJlt4GZWIoeTAZeMb1CeOUONADXzcJkcwoOIPk9T085Ci9rm/ 4Qlq6e1spEDf5uh7v2x/x+R+wghkhsYyCGiVTjIOcEE/7R5+ 5if5S5TT6nHvBVowHbYGogYmHatWnhIAjXZnS5HEVtd8FESJnhlHG2POsFoF12TspfOR81DKZsDNdCWx DixN9xfJCAb84ZkI2v2W8W9VVivn4ThbQ5QQDQMNv7Ndcx3Q4fXiwOC6uBKc0L0wHTl7Ulujbi0800zf 1 +uKJH2JYxnSWKujQbOAvtRg7P8/XPtyNFd0qlPxK+ hYxNLa7EdHtbsQxk3yly4zBuyuWRVvD5AQHSjIRm0Lu3B0f3yoUlZ2ltB8mJ36dY4SC5pfTRFM2RimJq okOV +f/D/dUk2nDOcplcgWP4iFWgNBpJW+ 3pMZsFqh1B0JzWFYbf9dpTEy1KWS4dNImwasIFaYyo5WREB5PTDBHDEkv2cYfQXvrzOcvLhx4EWn173P F8zNaot3BmmvAt4gL5cUj9cXV9gbUu00pXKtA128vdDz57QWaokhlXKvmjDBgrYhvfPKM7CDWzPPUJ95 bcVyQV +XMH1AhFtArx0CjCTANjFuVVq6kYT1AeKCQET3ekUzwYku+ USlj4QRY5LKKzbL6GTBdA6WYhXHTkBZcfnuSaZEKTKFnpg0FYel7c+fs8DCsO2/bfNZN6pgbeo59/KG/ mu8vSRRJWQMVINJ4irNNQjrFzopuPRgUaUZzQjTKPqwmY3pnQpHsyP2Z986Pz7hmmR9uOj8hjnu1BGbT 6 +NiDBuHmQVIYjQQFT5eGx83r+W9tVY+ pqcb989YDHQI54X18ybwXf5ynAX15x8LLDe4DvMAQVki1S41VUxs2gwwLqBqvJ53zVNQI3818dlgkVWT kVSmvQ1gV6xgJ +1bJjvMNQasefhM0EQni6+8D+J128VxNYKjaXlrfZKCLqBsnaP8f+1Ubyy4/9FvNdwMPPffW3H+ Btbg7k7SdU9jfSxYa5U9oFDGsdlLTgTf1frKn3cbYOL7WRQLuvSorwMcYHiqlj8CyY7rxV1n54oURxcr U +huJmXCRVbtv8adYPqXhTaou5qbH1Z6ad1r0vEc4+e/vuiiQ09woWnDx9wncn06MCb6kHpXu+ Loj7DhixWEBozmhphTK+3Lr+vvqG4DXLkgnmDjT4i4Q5Y2qGBSTVSD9CqmSvkIcIC8kLJ5xdA/ NVpXjrxtcftg+EVsLmQ+OlNnY4OIobICJkwdu9wejWX0eJygSDaiXRxnKFH4H/6j/ pd2wxKlnUqQ4vVC1dsCgdOgirQ8fltJZVeWFaRKDj5156CKSpupbXA4ufgfKfCRtWC1n4NwqjawY2CXu 9upaSqHb03ZucgLsSeNFugmV3iFzJTXoQ7f5X74l9aNzAd9N8ScTQ5XAjEefLAobNnhars26942H /pBT8kAftnvmjYblwYkpaC7jd5JZU5gBIuSN48v9ssocszLZYVswtRzCP9wvw7l+ 2gEdu1fLEzHv90oEG52Wds0ONR9bBRS/t61z5U6W3v2Fe3U7h1ISsPrLUlg4i1wP++ Nli503XG1CVHF5H1aSScrgUa+oQVtY1pU0pXgGC590q+dszWrfbgwGL7Bi2/ W0J65OqykGZClfd8dY51AdH0OR6I2W/ lo37PsnuPLjxq3kKZEhY06dQxoy69WiWgdshN2JrBIS0EYdk0q/V+ neCMEuDdP04zAC5DHlDcM1Z92GUBUOLVHeSItUIh9na4uiMgKCjqi7OaklajV/ EPhRrXCH776PknjgMWk7w6uhCHfbKswWU+ tgna0jGihmiId5J0GD2BG6BN7joDmE8lfRJqVSB4pfaTCBssrRf8lw5fJyKNIrcqFwMxWP7PTebpd5j2 +Q3hf3l7zEahUcxNrV4jdpUwvwDwNdB4Ibv37DbowH/j/wCMmk+Hrb7WnUZA8YEuE4DaUPw+ 5p2WbfOM3w42PSzuBiW3VI+Hwxn0r2ilMZNv2vlFtVA0DEuqqoWnk6rcPnPPfD0LWOXPjLJ+ 8tIA2CNRisCXlPpoIy2hq3hKYj3CrXMcc9rH/ LpzCST7JALeBN6BlH8JhBprJs1wsyhEaNvimjs5LNGvX099t7Z0yWNy/ xYFkUEo1qCwVKiA41xQjOdIyQU+Q6m12v33wz2Z5iTTg4Dfbx/ W6WBgSZd9fXKN6syapHscJtL7CERz5CL4CgKJe2PqR2jQrna+ TdKW0PNrMjx7CMSpjSxxGzp4ixKNWKgSR+3aAuQr/UdcgHM3MmXh+W/ bug8gHyryRqYui8mIdZTbDy0ahpE5NIk3wAJKZd05V4U9nqrrof/ v4V6lPWMSvxphukXkZgEjmBPYiW7cmhListX3Xj+MMrEuHzTsj7yuLBq/ Kg0iR5K64Vd19KATv45XNKDaGINzlOAZJBjbBzOFFwHmGbeDmA4pk52V8Nf7eFUzjowi+ 2mURnMxgzbylaYJLoUm5hL2VNdexsdS63sqz8A5QhXmd+ Lc5o4zu7YRinyF4s4aXtITreWmsLJCM1WHdf16LdQ3WUKkAbgCIKt8R6FtWj7IcMoqRrYzmjFnHCSaic kvAltG3ZJGn +xSGDg+EeK1hgYVOV2HlLAPD7EeUAqydfUF17ej4Io/pNrHA72/ oNnauRUOdu8WGDCZlyRl1R8yELIuzCJ0XpYddX3nIAGHh2RjN8IRFnzybUfxdO8Bni3ivXK19UXxfmOk kztUmyms9KF /LDBbKPIlLrjg9g0h3Jlx20iw0CCGU1mfbkCJeF04v5/ SMppuihz9GccSl86892j1vBEC83nK9gtVLkoxMHHTkLYD1rXC4cwKQU6um5b/MuitfVRxwwH0Sh96+ Cmbd6iSSY5f21MEawP3B+F9Ck8N+IrW+NkShT6rHHcdIC9a2Rf+k6bDqWIoW/vN5ZeqmWB0xoP/ DQqYM5nVwn7KdnIupY2qApceGhOCUGFPV5s7HamYhugYU256Hmb4sRt3uW3gjKCPzI0x4XKmoDFjHy0v mFDrkf5kjdrn +cxqPuQnrnsAxnY9nKYMaUpnDn8Wktl8rudbHe4jKIlKqFnCvOI7PlB1lhwmnj0W7J+NICOLE+ Tx2E923QAmPVZ4aIJ8+ 5RZ5BRm3aCdcmUEeEEpSBUcX1hZ2o7o3ZhPcB2L2h1irByT2Fj95F1zYmzyPJX4ybRHvS0RMhv9AhMsv 7lWV9 +8YRosw49EosaQET/PvBBjmAM7sxhElYM3AXVXH6veeyIEGshpqOH1JJnjLYerjEWRyh3d14ec/ haotPWfBgRWGEiVwtBdS6z4Sk+lQlef3or1ye+ u4p2vwS75Y9aD0TChiyjCsilQpAaOwKzejpfwd8YJL9NUnuTCBCMpaoZkxdly8onW2j/uX1C+ vmcNKCyF6ITgzVJdDXkMUJMY4rGqurJVsQGI+IkWBNu2tnNhTnnx3IwHu0o3iHFHyluJfJqU/ LoU7ZrAVeOQ7IhV+ FIGl2720SI9Qj7M0Hw7fl2A2pu2Jr65wiujiw6yjLHG79lcJ3sJuD1fBVmKd1bfE76u9Ih3zIF+ piEpeCegrPL9duc5ZGWtpqa7C6jg29Yh0libws+vfg/k05o9BtLHHhtrcWMR+BHNcE1fEp9+ XcbsaXf8cN6k9F6UKfDMNZIv0KT2j5yQfkGjyMoie0vbLGXb8j9hv+EVuoLttZ+ vqQxW1EblxY3dTS5jYEBsYEnGKHtALjoSuOukQ+ hu2rsDTanhKVEfqHAWg6q0hY7BevOYRXcNGdFD4EBtI1ofzG08uNLUG12D/SpGiii+ 1JP8fT1O0ooUOztOuNWxc60rZeD+1Vr++dUSQU8jKa5XNejwj+ 3AmdfEqTrzzfIRd14NePjQonCCwfQ1vFDMbrGEPxf8WsLboi/ COdnJsrwKg5bzVyuzjXZRX2mg5YG4Ym2RCm2Bx52pQG9o/zGbFf4R3PEM0Nxm1B/ lr5006M466BmOn71w55ZfYVzJ/ly/O0yLNpPIISaqRWuf2H6AKgsqRzt5dUAn0wVd0/ x5n8qLNZMySqJiUPJ6Xtplj7RRxsIiC9WgByVJoo2mTWdST78/ TQrXpHxTol3SfrTmFPgfzbJCaZAnJO9oc05vceIOoz+6Pnc5mKFMd1/CxiMALXk/ ye2q60q8horPK0zoZXngAXIsMpGMNkpQhf6dxOZ9P6AGCUAfXUEjMmLZ6RxmsohjNJWjEXKCU2agG7bk FIAm0xifJvtH +8TRZwjEtl57J9zt70wzBQaGkFF5VNd0SdEtwX9X+e/m75GQjgV2k+G/ Ndo0vGX33U9bheK92tMKzlICr3J3dwiBxcvfvgQZtkzIYCmC5iyozRCp1RaLmW5QoGWGfQaDXR9wWVD9 Wn4cadZ6c5mswUHjBY0y5bmEX9nyIZkPJIrfAcf0vTQjJxRGTJJ0JjxVejmUd6pBNetIhamKoTuI ncAQdBNcnJ9NKOiW9xoXfczEut9WP8V+CC98zdysFVZVJCkmkn43ksO30cFu7hz5m7gxVgneZ1+ 7zrYzCtgKS4ldcXD82ZxBxScOzuRHytZpKqJAtcr3Ds0xZD8KGdZlw3yd0E1UF0sPPtnwxBlJnTrEazh awElmCk5OoQHkbXvg63f7zzmy +Sd7GzsDyBpw0YUper4cSnIJ3pQQbWt5NPinpVNeGN5BOASi+BexuioPkpJt8b0/Z+ i3kpNBszIYg7nCtYoNlgYDXqqGgWwGdecMuKE9LrKODQiyGppY0RhGDkyRcSSnMExosx9o7X4nut8tr9 nh6O /eNPtayQQTzRmWeGazdRJcxyQ+G1QYWsBH7FGHOqmhHnJjteVvpM+ yoopiH290xPy7uJ1EVgRZpNVldLMhy9QpxKX8xoht2HqONDTbJNa5KcZpcLUbo4uZY6I84Tn1p2/ HbcaZ5onPoRF5uCsjMn+f4ym2ahwSXJz5r+ UKy9JDnTnH2rt1xD2gwN64f418ZZBeXJM7rRsaLDyo4mYyOa8eKbjI5kYZNGYBiPypAR7p+ A5r2hShEotqtVXsF7vHc810c8A2D3adnfofqvMrvSEyANYxWDrGnFuAG+sQaPa+WIh6AmC1v/sK+ Tyy4LqG95sZRr0qJtuwBvcnijX4eYwlsBCmfqHRa524j5xavuIp+ JgxmB5Q9bR7e3WkuLF4K9HZOc2mqo5mwM3EzfReULjP8MMZZPqQPmJLnGmjW/Mna7+ 74m37u42ptg3uqDnuBplPZFkNGrNAdxLAtyuqt5AJYfxZb3VdIsJ2a9l91UzFxTlywuu5m9RdZdyTbE/ sqsj02GPvBoH9utBSOhYb5tC2QxvyiGZkjkWkBTXoYrqJBSvS4ZdZpQQpK4Oc/ lR6maQa1baMTZs5eeFvusnH9jgvmi3Izc2zLaGm8jt0P6KP3vLrhFHfwg71ZXRA6vttIy1fO4l5mKjLy dL2cuajgrROPoIkmv8obf7pMcscYojXqpLBH4qf36YVER3IdSQqof67yYt7l0j2Rlen1GuFxdy +y1IxAuBg4tGx2hNnweicVOXSMcD9WBxVVXwwgGyqau0z2uEvFn1Kqvz952+XpV1ZmTSd/ WvbdCBcyaumJUuFzFvx1L30eaC6RkXjvEn7yeWZjpE+xfCz+CzK566jfqcSy6R2irevbw+ 5JoxmDctSk0Su2z1+ 3feNrBQyWPm71ifdFNyZ84Y5nul3DtrWzbtm3c8NIdbBdQ1Z1d161hJtp0tjMbEJZHqo0RpVg+ 6C3j2s4lVPsiu8Z6HkKsv34e+ u6b3j2hCyIboftpzrFt0g5DE0eq4t3Lz4gDKd3jvWZVyE4OXlN2gMvjQqCp9fCIgvH3rRKbTb6ZTNxq4 izBmU6nxN5aGHM3 +xuEEidN1N1pzpnJBkxQhXlISOynXqn0ac0Ze+ lNmom9OkLxis7TRPujz93PuxD1bBHUhu9I9H2q1srUgH0uQ1Zh8hTW3r/ p16J2tY7v8PMU7u4LVikD2u1sv+5ph8hBI713jD0F22ul+l3HhbT/ BhupfJnOFJ0jxVI17UKmsvGyn5MFDa7ueCd1MxKawCZSRjVA9gVGwt0LIsnfg342R+ YY7482SB0ccDJlz+Hvpexp1icDbxfvwVn8JTq1Gj7hVa0AefChzwgMvfK0Lx4UuOlUpkhQ/RVtk331O/ VBzeaNWwTfjpzs0OQ1CA1cBhefLgVHuLNI2a96PYC4IFrZKkHN2dwYgo5uzoBt94Jml3B/ j64100iiDWgCQjR1KkMDBjFMGiwnpn89NZXuD2+EdB+G8+ jM4bmsId3zDej1zeVyhNsAUMGhVvpwKxXxxLahz+ EyFLzV07leMJ58iIdfAfc82K1j1NDjQxqsdegcm2T5y+k3VzA+ mNjJ0NB5aNIzpS2PfzgNKLevDQUaddQNusUmG9J1Pnmir+ENB/4S2+gW+ uwWHe3x1muCBuEGFxWb1ymN3hMPiTQbnsUSEFm0kUU9mobLeH/ IZbngalg7nhBO3qA6Ogh57n87OLUWz6RMoVFg9ooIgEZjRAY4M5OZ6ebj9InkxdvBewYWcxCr+a2mm9r +7/LCevx9WBKXz8475+ ZkX1sQaFFl2ETubIaduC6sg9R9D6bHZaNwxXmJjx1Hx9enuXHov5mxx53qXZB8iRU8jwhDDQjWgvZw+ 2wyEBUdFwvGI1Wu3iD9kmINpyDJFQeLZiemCzi9Y3QvGK+9ADRISvzW0PLt2zldzMBwl6H/ ImiG7n1XhP8cy2tdC42fW7etWwcaz6xDa7liJbhVS730dtnQ3Meh7ZJ0agH12oA7rNjnmImfCrjr2wm+ RwGJ5yowS7WNK4jttLKV5lJrRv1xgqHvyBrFaE8dWe0FHt6agAkrqjE7tb7UsmhcXQeC3540Idc1mf5Z IqYxI6r +8+u1z1dOVRdlgtoK+HAdlh4c7JK3H/fVh1BVLC/Sj1GWPCZiuj9QoO/mZiQw8TfGa5PW348oAWw+ mCJ12wrUggEWzG5yAJcrWBApzDNtpXTkpfJs8h4VVUSXWS24SdAIeeIEpmwk21UlFsVzWFhCAypgifsC AOuE8bYmvLJhyQx +zibY+NPw/z1MqTMLZty2EyIGg+tCE8sTkQL/ JU7KkdcAhBdc4p4XV1nz3uziEugbvtt7NfQxcTgAyD7oCHp/6ZMwwknvq5m+Ii+ ZxGKChHq4bmsryiFc47vZg+0BCvgIUWnaUm79G1cOi8e8LtXa4crP7vRo6TGDrKDJKgvW6xqn+ d53yg660syRNi4WnLyyowccbnK8DNZ9Gce7aV6pcizq5hvrToRtKvInr5d25vjR2K0AZ6klYgJDHE9sT Mv2vrsdSDMZgZc3k6KjRYcx7LtGTxuGZXrx19UZFVqCC + 3zly5gYs8QMad5X8mD9E4b4ovNtNmwsufP1vriGku5RjgR05gSMRewy0d0bKy4ucpc65UkB7TCUfENwF O9fPvw /+Bdtc/IE0t1PQWiS8u3ggE0j8bDEUT7Cnm2z8eE2z7UPvt5y4sVfO9evdoCoUOxIyiUktah3mxuQm+ SnieskzzoZf6KdexRuqBtNmjt5kdxMUH+esPPZ01RUujxG/ FH36krhTqA8iJob7vh4gKrt8wZteaYiXy8osUlAbYJ03n7iDWo01UN9zQnzyTog1rgWgkacqDDPtfpDF G9Vu9zP7g4KjMvaIj +1to0+uJnt3xzEWHmvoYibc5hvEnb1Xv0daalSC/wDCHiPWZbfxHpsVxNos+prpzxcbKemhf6v+ bTM6dEpjI22GPuIz/gur6c383A9h4/ z15es3HVm2QbLibOgmbKr8hpp1Szf9S8gFwP63Fd5RH98e5njfy6R3c42xO1TWG2tOxcES/ Gwf84Rt1njp279c2O061CldDqZC+oX0nyk60rzfi5tAy9Kr85u4SdnpYicnhT0Vu1kqnEShlx9/AFMS/ U8tMzhF5426wDl+ ja8hPz4ZJ7t9xexlGEO9xPf2z1bUX7bjWVNwk1yx81Xpatntkc5bKdOSNSoaZywdYeFmGJFU7n2IAex8 uu /c1al8Tai0kISBO1VmXe0uXWyO2y+kQEVSuXdnweCdIb6hi9ecRxH4zdrvH3+ ZQz65l7Fuuh5a1H3J6vDIwyJh8GZOIJIzOjyoUn9P5b2oe7ZEKjxf0Yiv0PxRwzicHdtlYXGDkC6pgu9 FjXVjdNPvndDi2fKquQ0hyI2mkGVzNpFg2dxxjmL34P4uHQUKW5rAoRQ152 +7L4Db1Nng1VnroXhmrYkhf5Z/ iI7X1CViP6e3O2efk26A0tvNhHsk2WAN8gw9Y3n9cjC4CbsDyJ4mXbuhP87+8lh7XAKizG5I5oAIRtvO /wB1/FRIW8K/ YNzewsc5ny7f46qwSQf0ExfSt8tVlCHuoBOuWu7ErXJNJvqeO79UHnThV5iItE0aevq7ADSOC6DKNEI8 HBrPFFdvZaUiHuX76hpl68N9JEKjOJJNuTgtXlyi2GIp4HvDSwlCpmpbPd7SrKLhTEbEAuzON2D +rAKOyf0xyeugkwIyKzrjoTpI9buOI7qc0RAIr8Gspqsl8cs1tn632Ig1/mCuP0gBvqbFTvvjO1+ tMn436L8u/jJ6paaY8O8Edhx6hy0aIV/ T05WhVjYIgo6ZP5XHNgt3ultFAw82eHtve0E58D30uRkjS2vuj1ZjE2Wkdwj/ zvw8d27i8zF3TuIKfSQ9A4j2htn30QV6bZu+iU4nWwmsf3K9xs4xipf44n6wilsaoq4z4fJ+ xaWBGvAIwcrs65+AsaabsptwpC11eWhZp+J/ Gysb13c49mwGIoTClezum1DygmPBzzw0syIU3HnTItMm0ftakjFr/ m6zHyNNHWpM1kEChfrsnORBxNn28hwq06GTIqcLVhw7hohPSYBgJMbPqnpAAoRmU6WjJ8c4aMYKZIe2i +t/C2djhG6I8gVtvVrZ8eBiHekzeUmtetK7Ah2+qaxqt/ UBaW6b52Hda4SoXrzppBfgHDgWFfyqG8aLT9wMgXXFIsDKcaOLpkCer+ PlV2wkh7mP2hbc3aHScKxgI8uFHohGj2V0ejCVV5A+ltbT+ 7OHL6z1ISwriIYM8QtFaA1BcIDPqLkl0gNdPjRcGtfLwMafu1QSv520/ IBay1xeR8dTqNckdZoACNA8Vo/XLOm5fzJ9NAZ1XPTZqFOQ1/ Vmjxl7Dct8aF3n3KejLDGpr8QGymVZ0m9REesq8/ 3GjJmzJffBPNEM3Z3s9zkMyVDaKngAHT6zaTqPv00oimyo4ElcX7qHZyRQt9g3w42PRuTc7wwsHCtFWA L5YwkBvdumyCVof8ovTEDCOI3rVywQF3EjWk3RmERknszE8 /R2czSxq44O01/sdai9FuF3hZA4F0Kv0eN9nc1ysuebsZzST3l9ZNU/g00dppUQsk+xsomuItU/0y+ lzgSSIePwrh0oErhaPOZFkajdKPVtHapJm4WliiKfb9LF1r3cl/ P2iqGCY2jCifeRl6hSeW9Suk7a00RYLCUb6ygkQXwm6kI7ZT6qNQ37+ EqGLGtwFckIICfwaWoLb75VyeSD9XfiG0S1LRhctsn/sgrIMldXakGKnd3XYi7gD0jkVUKl00dfZqRq8 /uPbInLB5xmuhIMj4nWKiM9zzn3N6sl8w8b02M6q4f4XuEOde5TCTIHJtYmLhpoShhilqu5/ SJIslqykUkmYY7D8HMEuh+EMiO6L4UHePFu03nxxTa9e/0lzRK5TuMLhyGrrBKpzBXGesRz/ Gsicy7eyKaEvWZjvaYif8hXNgZQfpublS7Fe9mZaH6aUU7WthN3J69bYZFNnNfU3WAyMOgzbWXvxefuG 43siBtOcAyjWu2uxKM6HM2pODHq5bmnkfrGi3bCkNnngghFKr8XkT7k +psfwYK1MOjPmykCe0qRnySgcto8dTltNCRnUR4uB5zxnPwvNXMs8sgWT/x6ZiEwBjWL+ 9etapepVJdH2E0c3sHgM7ZqddgpQ0svobwIYBoKu6ldduEiQNoTtj+IuwPWrvAyLh05ZiCdhxjkImHoY +9xulIuaEvzkIrB6Cak3nUY0taysgSXf7APV4ygEbZyHXNuy7GaFPvkLfcV6ZAKL0a78F4w+ c8Y3e9o5F8bHQE+mCTV245/ ijOccXBuWa7OfVg3SAqa2OKMAyvI59TNYuv9XEsaO8Q5U3zg0ekjIwC7aOHt11tVMxts3oaYHu4vA26I I7zRjpMFRLkAC7w2akhJZ4fp /NvwF+5Sxm1WGqsVxdX/ nDQpZ6qRPh0l8kr12xmnx55989DHK8b2yMbH2mC5nKWIIwD2mCeaQuRB0UuYGXUj7l1J/af+F/ xKbojV1oq22pAUXNjNB4sH3XiGbqLhuu/f3F/ N7V9bHX8b6TQq7SHTSap1eR0OMKRoKBFnUs410o47yEn9Slh1rWBdWiqk9hor64lhMAZNi0huLxdUSHf BYhZYxzsAnXyLe38VGZEsWWh +nmZZm9qDi/ MpouC4J9iGoBwc1y7hIwasglEmXvJqFh71MtoJmKjy1cJ499rNqZU4niVeGNjNLLrawnhw/dTta8NTL9 /i+pogFJ68juqz4UhSJp+y6d7UeqiC3+p+ P5HygUISNLmJM85e4jgBBH5pe9E4i1wzsJvSnSY5Vz06N0X+Fvxfv/C3g/ zpnpGgYD2y77zm37punmk44OKXEfUkvMqy4WntZgJHU15AmnaouNF5up5rK370BI0sdE2P+NW+I/hTUL /wC1zd+N9LS1L+MUF2uA3VpzM7c76KmzxfEvqirxdzf6ao98GdWGYeaoFvypA76+ e6yw50rbDBt1bEvC9dmF53b85ZeEm755Mi4E7Cme6P3oC1ca8bb2eI+ pmnzJAmMZH5iEVlRLJa0JWpw4cbQ710Kc4oeV/jF7Ex4KS/QF03DvHs+ P8Hn0ZOGiuP6oloQIZYn4v13Pk6b2T6qbfBAJXki+z+b/ Vycq4l38Efzs8c0d9dvO6b35Ppdk3VWwGgPRxr3mtPyFIA9w6z2A8VjG4b5bF9y4ZHtdyLmQj2fJyiv1 T5vKv6zhs3isFVIEDe3n /av2Gh4hYtby+ I63NCPUEpcXt9j7xDV3dgtKTmvJ9xuduHZvkE4JJGPo6Ju2U0eKUG3QvPMnW16kjfH8cGNjjV8A1v2u/ 0KJRBjz02q0L4kBpDghAt4hdf91zTcsrpzOKlsBIvj5za0pNKtmHqRIiP8pm41W8W+ dFk6LAJUH8j9rd2hr4xauZUVR6csXysCu3Aasgj2JucxQhdGQntWcE5jhdcJBk1DW0N2d9Y2R+R/ yX4l24ajCHA1rQ+E/VJd4hXypuwtt/hM1tuVOBk/LUMvewd8bV8RgHoQyoFj73rRbXxyheKwz90i/ tDBIkv4o0kvMag1DIhMqD2qshyIXQrc01oNG5tPK80YcUqMuZ5Zk7xk0ZlOpL8hpqxplY0enBusQhCRn y /WFUIseoO3y4OeKo7CwASls1gHLD09+jd2vEAOLrX6V22XEdAz/ meg5ujH8DTiknJfndDgRL5CkkI6YfYBSG9k9j+ LQYsHyyaucqsEoeGg47d5w6nfEDDlPF8CqgMzaMR6G1dnx71bc3pcvYyf319QMiO9mf6u21noQi8eSg5 4p9Fte +ye/dM5VQCU2dH3rX8NqKWlXW0Lz8JJnCha27g+9xZUzvqYJ9euk6ekq4t6wSJVamA2hYu9a+ HNDI1bzhO67nPWGrm3SDNRNlPhzEYqbZ2HvKJIbzl/T0BlsJYtMXXj0w1m1vBlZ+jy/ LYn9G8Fmx5BQtOgwjBmyQtw5c4d8ivVCsY2tjlqmqTYiovqJzE3q3y3wceP0mJQ4yl5v3/ ry6ZoJXszJYX8FdSf5D1xVyG0tr2LvrcIsfP5/K+7wbnoORdb337wId0e8/pjT2p/rz7X4hIxaFceBo/ ZnVt0ExyIefa+ 494d7apCUmjazAewC8fy93CsMMg7YNJrwVYHZs8m0oLhDk3FmhhiXAlPju1cq4y00j8Earmw9+ gAGwpIicYi1LovdkUvB53pexAOcVGnYnYYxde8vM1q75zKdRPuW9HlpsFogVXejyxk701zmXOgH4PfB7 Wj7obBl2jQ0rRTqY60gMzL8wbjZD +qn0/whrTtqGr+ XdV8N0P4B8MmHxvepqUNOgkN6rJHiKWi4HtYzqZsodV0LsdKBEbixSRPpOEvfdmakn37FsexD16Ysi8a htSr3srdd3iGi2DomuDuRlCyw62VekN + 614Jdc8LbvcOZxznREaaQi5NpTlOtOCJM89DpteZa8D39IBnSMiEiO7pz7cW9UTPxtYQTR02A7KjflNS csXTsrlmyhnLLMYA1CwC7C /SX4H2Blx+lu9z/NKXu81OFn+b7zycVNOXRDMfdrcSpN9L9OBJCEQY1YMYEnlWl4zEx+ 679QFjYAc0MV8bAAugeIvuEvWTgnpHkYtjKQS+GoUbhpP1BzEGmKAS+ xOnof3NNXKjkAFTxsBmRya39N95P1qFLq+txrorfh/bj1SLrSoSXDPi4WVUVMFhKSVR1+ KOVziOhP5Wjz8gVCKZH5haSQpbBBCvdJN9GPqjRovOiKm9Dj0xpYmBuUbFUyFAdLxaQhjxYfVYC7ZmtM 5x93nKZxq /W0WEfAhlhB83u5W4E8/1/ rZdTkhdswg2q0Y14Umb5AzGZZgUrgif1E4dDtelZ21oKGhsUTQ1QVpLMlEtPgUOGTWxwfSuuhIIncgmt O +kAZgJObVyxuJGicT5FiAqV+ Mi0I6A3azJwSONTtlFJsy4tLVdwTewU7XzAiDrC50aolxbPP1s4imccouhSqEh4e7T3dL2Y30RCyM6wg jSIZ +W5MwcmdHhXzemPFQnOPDCmnfgpOQMF7GfXxweZXDdfHaLgrtY+GlOGjEaOd1BmWEBqjHU26WL/ fKizX3PID6iXRIn0t5S1rzvMhTHQeVV5TsVKrcUUnT5wVKOno25vg3X84Up40ww79licJz+ E2QWzN62mhSJg1YmFRE1uLcJXV/ DlgD3KBSmd2eIqTRxpzqgHTpxyOE5tgEbqriq9ALpK8EBffRELVpKJt45L4MDPvFtdqOKbBDyvN3K1bO rohchEz9ZbAcYylp2EdsX266l /qlDqee3csXHoojr/ z7IXmLjZZWapSGiBkCjXMxmBF7sigSW37JpEfsZunJufYpwIb0gjvxZjiqafUineb2s94YEy8g1CPojM 5iBXVnalOeWwkXCisO2uSrDY6gXPtNEs1XVEi8WCPqzDhjLQueuYm9LiSlOi /S2vT11+I6u9at2UixG72c68+ uRuYUwRCvgQSYQhnhJLchLbo93S21FC3netUbA8e9AmV1OBzIKUG9x3XhzO08tiyU3lFXVfcBxHxOvV9 mdfEGeHD1ZHNODFhLoqwiA1J2Z5g6rrsFwcagNfoVo4icrukXdyMdaNbBpLc7K /GZRyt6Z71m08+/432q8WWhHVV2gsi3xSQg/Iq+ OUNUrWCIhYeMr0Y33KmILgvC6EaJ2ARtOJKhRpgyemWjhZhtF/ Ti2cT4l0UO192U7UpcWRntqfLsGTGDEJWC5HzZZzXADeKH9Jilf20TUAWe2D16qe8nSAKyZ5NbZelEwc dWMEJ9krmMbWscxvAu +606a/7ocvmTa0Gwngcp+KwJ5dAuZ8oGIAXFGwdSbleCjclJFhSnpZUgjb/ kAuQwHGuX3bl6uBgmapyU8vW+9cKeZQsIvmWAzP4XOg8FKHuNWqFKtDiYCMrV/ b9d8QN36DGvprwpcRFcOqT4jyfBbf6U98y1vX7V2b9b1V9Uw2+/ uw6e8prnfyRgDyEM0ntACTWL9DSXJ7HzPuqkVUMLiyMkieCugUKAbZY2z4WIYrK9cqkueoJtKZ4dU5dL 1vt79Mcjn0e3lNG4lHcXoLCXbM3R8ahWCH7xaUvwNRzrtbrQAg1JV2lIPkX3pq9p164bpB /+FbE3p83608Su5/ VZyibv8WkAERMBkMteoCsR9KfLdM0Kblxscyu183FWztnpiuUIRMPIpmgzbKrtJTVjJdJej691eMedeE 68CnHDD1udXROn3XP0XgLC3upnXTICvaJeGFIKAUDcNmeVYHoO9y72ddfmH71ZpiwItjxxYmospT3511 W /+ W3iBEHm7LHuoxtDvpvrYHeuscGBz8P6bgR9ehPBtv4TaX4mPfitATXDA7TJLe6TJfPiJFZvqosK9iKpN IjdijbvYE1GBJvkf5HRADNeIbCL +IzJLEIY+ht61xhep215xBcHJRD5C20gyDzAoXL/PP94S0zvb5qplfbu7rfRPiZ+ DQDFs8ievTQexPD8cEIR2Xh8rGv2cgnNyNX9Ll+pr/ qzW4NGgb2LSH6DPwAkWaFlP4QuP0shuDzbn4fHAyY4dLJ8h+YhjINzlmcsB/KF+ 5u06J92fKT8eB5C75qk1+eNEM6q6qEAFZNEJ9vfwoBJO6zxBcFJmSSM6v/5MbxA9o+Exbd193zCUzY+i +ZFIhRll+xw+VUmUGNeHgXkRZSMOw64rSg1JC2n8y6prsg2bwZ02ze0DKwSTAsq6xq2NCp+ h2I3Z6mcJWtkyiUSWOdMXjCK2RHuk6WZE1TT7pwiRgTXUZUp/ i1cuvddjrHYKXQMuQOOIlOLyfjXioQpjnmTeI+C2kRdE20FyhktcPZQ3HDFtpI9BvEiueC6hBavcUp72 +u+2025Pqepvtcf7t5F6R/W90pqsETRgX6mQqDlEsKku0A18GhuYppMSm7KsIPmFBH9SyznC3/ OXIOBEvLzy1NuJU7PNVJsqbBL/vhN66P7FbxPDY9tBmpZRZ1kKtyXkWJCR9TNBE3N6e4/Wtt9+ ap9mgYgm95980/ j82uBWDNk2v1g9BFIk0zXuVcdvg3SyikQIIOLjOYJ76uAgceVB9e7zdT5YpnjM9DrwM2Xowphkdi9ldC lXFr1Xp04uRQ4kpmLfqDWxtFD6xVl9w5Cro2m6rnP66Mf2vffQebX50p20Eypx7xblyzo7P4S6mza2QD z8wY0LdlCD8pZaICDM1LJVR7qviufqGzJ / aZE5UIONCP1MkeLF8tuFYmgfoO4IBDnea6d4EcdZuQ3bkKjKTcbFUyniAGj3xQ0TXNcDbcaLoig5gYJI neikA /1a6YucBEMzkKaE2BEOm4IP7ii7tbq/rpo3+ A2IZZtYBL7tiqc05o2iruJekYXAjZQqMJAW4soBE3HDPjBPBANr8HlX17+ NgczNGgdZPtBqJrdrrjnKjnfQJMESkL6iYqGN7F+ bjpuQ4np1tUOIogRF9DpgREoUaOutQZZkLiKfkkSrgZVg2SEEf5WCEK1dOIY4RkThKxvCC0T65kun8rx /RnJ9YLovDON6YmIx8Y/RW082V04mHdGikEpgY09ODR1zqnkbHIpZHgcs9nZdtjp4dkk9uKYqxX8iigE +KXvL9jR0eTbVJRykEs6oqKJ9iWEFmkMTBAOusoYTsZ4cZZ/ am4UUfkXK4fl2eO4LylaSIGSQUJ2iWXuWLJVPHyMe6C+ qPuo7wBul2lkehoTOhilvSjTRuyOZ4bRzFUyUcZdROARIZSmBpGrBD4k1obc5y2ptiNsjmb8T1SlRaln Egqq4BHhpqc1tyF +jR/ X5VW9fftGETOJMIQTp3NHFwtHO0YnzB6gzyRGVEMhKtxD9h5X8prQPuA4A3C3f8RVGa5Yo1lFIZZTAfy eGpqH3YTblNGP7vWv1W +Bvi/LgPCgRJ4vbbQhwmyJF2gbQO8tvWHLHfeRhoWJzE6aXin5/ lNSdEa17hx8aD5Jf3bshmJrXUCcUrACv8EOia8lsMSHCGjEV92booP1hb8yWGGltT0q+ jku8ww1bkyWVM6iltIbSe0LXC4b4XwuxYd7tP4bHLev99M8cSJ5qXurFHo0q0sTtizVp5+ UeroMotLwFUYdviTdKR2proHDxW/aA3L2vocgpL5IJC/raujgfD8B9hthfdYL/NZPmjwtlKvK7Z+ Izbm8mCiK/PpNAI26pVNzyyOGKt2nZqD6tabZgRRCv7yQS6QK239t8PS+ tqbAjrMTcQQe1AW2rZDMhdxSv6maJPBulpfLyAzRq8pVmZxZZmWMFV9fIuz47kx0lUbaoI5QGld8ogAN yESxCTcZTf1MdVsoMnJS04Mz2rWFhc3HuYomXa6ixqOo9aZd9n2evwrVoXcj9EUanD4kVEjA3G56ZrRw XffZXhN9251GGeJTAe8zLWTOGyjK7LqaLcFoVnH86oaXWOmruzqvEnvDxY6zmblQ1kxEMRpLX6Ky0vaI vKlY9p9G9ehNPa6Xcm9R kNxzuC/ MFjPpGMgGEasZamzQ9Ageugu7jdcqYqs7zlsoWgHwn4sGrdVBlaHWGrVJi1olpBr1L0LD43J8y2I3fj9 rM17mHWugWrUnVpyHU34gIouUcGsyDWInR3Jqa8SUWLaVtGFNXOsd5baw1v2XjBqUPU0NFvDJFAbxfF7 VDgEIL1lS7XwZaX5SvsslsFzqm5JU6a1T o76aJT8OR5yFksJZUsWRP3Q4sGkOcQvjB+ Ho3reZe7Kl62ZhRmaZDU2xzzijOOFLeoRp0GWZtViCuvBRfQ2e4bwIamRFg8sUDP06lhVblgB8eat3r/ o9Hi/L2fVteHJz8WsX1BR4bxe9c8e/p6vjECWMN3vH/ Avqj7fk2d1mE6ccqR63pqfP5jMqVVFXweZofXBxAz9js+XAd6ryMSOuLy+gX4H6/ pC9pOfoAMDR5x3aTmztr7FRojPVcpIOo0Uub5+uG3nZCEtiA+ Dol1mHNVmz0u0qDKKjMdjWKvCqr6JcFMGYGJERqJlP7OFI0GsAREA5+ fvsbFKbL9AkLR0cHe8u7SFq0h8Zp8+ PuQ90N85H9VvZANM5nwHyHpZq1QQnBl8wuc2mkj1I9y3rJhkiajza0hFRI/ zKVeCpJ9e9QfT20Oo3ni9V35573p474omQvnBSIsrdiye6gpoVOIPQ6KxMOPbh6HidzMz8/ rWXEfY2iLW959ZiMM/8OKEpINiAdFb2UMM+ HOFA2VQxqFvsw6LjKB5Oh08wpcDzPatLMOAv2KCSB3u4IgoGRvnfrIC+0rS1iWQGIXEHPj5hpY/ cm1Gg8f0+DUtU/vjAFm7qNxz3PbUg2hIZUVNnZwHxskOfM2cd1pC3ABk8yWyrASM1biXuel6k4dv5o1/ k4aeX1cT6MLbJuVA0zbTpoiAHM9lRnagNDJxA104cnbk+fE8bkq5Z8HOSlJ+ rHZXjox4rDApDdaib4nQrYbUTOQ8Icc2+1B3TvMyxgUS7XnrHy4/VH+ 32t0oCw0K7jmz4mfCT2fZmXo7SxBCWKRlxuR19uxqHx4dShn5Zj/ BuzMWN4N7BJxJA88NJBL5LLm0QRFMYvXIe4cREh9M+PnhC+8RvoyzRXFzDDIsVzOU/ hUOKygBjZGpSW4VNnL2omGM45aLWtaD8UtXiMtfp/ Ia4klazgjXfdUB3ooDOwtaI7Nfwn3MmFwhfbsdPWt8Rs94YfhncixMjWoX04GtNk7hxDZgw1jPGCLUTV IkXrebzssqPxyTizTyIbEtCffaTsvx33RDkQv2q3B6PyzG6rnfO1AJ4zOClA5p2glVQJ1h1R212vm3z8 200i +/ 2n7m2eNogvUm5QOnNhl91fhIUFpRFq9NHEdL9C0H87f7ZfsM6ArevXGfXBcCGzZSEGMHFPQ5RFFeNLiZ jaVKqOIWg0t6rmick1p9Rn7V8Ag0 /p/PimQmK0e4mBQEKw6yt0hoYxQ5sAF11+/ LxiHzgvxX4G5IiyfZGlVbb7P3ncHlQLehNsUeT1UQ9HKIR47mSLrtbzmluO1nmPcn010k9pzZdyDsXCg GQqS +YCkkb+YrFgylfmJ+kNn3R7d1y0ejt9zD2vgYrIe8TtaNSrPiey9d+D7XN7hEz+ Nj1OavU7mbZvMFBfuf8veTv2pdvq6N7UBY3IdWYezcJoa6FZJ5xDXa6D7cRKw6Wr9zruhhi/ nZY1rcEj9SayWdPT41hqZ5xCi0m7IfscLQ65SxGsAmqhUwhYChOSaixktbeTZ6iDPDNEeEARPVjJnQaW joY41TiDaT0Q2j1Do62wBxtuaJPe6bzY6GymAJ6TAZcQYSTwMwOiy9DCaHzdLKiscoVOYDhxO +Q1I1WeVvu5CT5BVz3hfhqHW0ubdXu2tzgWVmpK+ PrDMpGOPJ3ABO21Uv3xwI1FGyJkqpJGsUgv1nTFkqiMuWobNEgyFKSxTLsK34ENXWlVBTj91gzNCCJZn r /OS1P6NZXJTikR52TpytTKT/oeQD22G5m7jtT+n+CbHGnazo/zWmqPBKzQJ13WXsvdgUY4v+ okiovc3y4AKXNXvVaxfhRZ784h/6OeBFTSxlWlfKpgN0urnQjg3i8KQo2SSbirtAOX3Vu2KZ/ Pxo3jEUSy12RoB4p6btaiHcwdK8T6gAoBHpuu4WNLpQqFOlwPT694BfrzFHgA/aT8LcdrzU/ yqH8NE80UFVgT5aIwO5V+OMP4K1AnQrdr86vtbMgph/uke4jgqvKvBeJVQam0N6xCk8NZXSuZD/ YWlZpLIrreMTRBX0K9PwE5kO+ nsTJWG9xCGXOgHWZQHeB9KfyvPuyl1ACMBQVNLSl3751BG7V6yPtUfIlzxAbwHaXKJXimR5KawJS6MXX pDXLl0OD59OoJxxy + S3KAENMwIkXoywuHnuGDA5Jn5ibkOxjArSzw2vvaNuIMPfwttHb4qrX2fNeyxakdGdJ5dsXmUDecnR7n 6v1IqnT8Y34 /qS5Z7xckkDydljgZ5/ ezqzauVuiFn9X6yxiquFKnUXOHhaGYe2x8b4tve3Ty3rVp3dbzn5NeSlOcBsj0zzV7ojXhbKMH58LESi srXyHHnWA7FVlRuDhIP0V7PONjOqZ8f7eE1zOgBobFDVVgXvL8mwfJAO0eEMmhhBMOg7V2ph9gLiI /cGLWm8wprhRQF7AO+ U2qjWKceP1IEYYTptKm5ZE9X5NQKz0w4B7zXaDfCnr8QC3VAEShoBaVcgwlSNcDyFUbE4o92YrkuOj8z b2ansl4V4F6eyNV56P03TzQJYqXvDNPfj6uu96705ya +qBKY0k7+hkZEWCem5LRXwc7vTu26uoKrEHh8To4vPFrZO9cuEOTqTOW7kL60l6e9yal4cTZ+0LUJIr+ 1xrsqIXrwidKIVVUmEsTlcvRRkGUDNPD8bRFQFSjF2imn5h115QKAvuLrz41PV74EXzD8L7g5e0k16yE ZrnGEW0pEUpXsYQyAsCmMh5V9g3EMRf4 /HfrOiDwH7JBS/uqHunhMpwUMCPzhHuEmvHxerdyFwjJZcADvYCKuHpvvZpcp57Bmpe20P+S8/ KXIMCsq85ZOhPkw8hzZ0t8jA6alaVAa0aX/Gi+fWeQYB2VkprVJS76bW9ph+ oDPYexmOKAtiATaV3cM5zobCIIkbwgfDDBe8S0B+N/Evia/VFTjKhmO8FkbE4jG6+ O3uNxYcCaEPscMds3bfyhFhnah3tCGbtW0ZrsHdfZ+ MFB8P0Xa2yI01J5Cc7p7mGvduXMXi1XrnhTrUAXSAJIYR474BgpkZaUs4tgVFpvNqIqY17+ 475FuFwuQgEBnkddNwQcNy698hBRrTGaVWktiSzSs8FGCTruPny+elebseT8neeE+ ofvscIMFZWOSyp9ToXK3vgC88szGl+ p3uC2c203nWeH1aTWmVWZXZFyfohTuQNzGtLf6yA1RRLQdMGndeRCmArzz/ XvgXTjWJujQ1VhjA80jhJJonEQDGX6bz84P7yyPEXLtnhp9Kcqf1+kPfoRi6pe4T4mUH0iC+ Aaiv9gXbAUd7SYodsRbz9XqRfuTZsQT5yGuqJ5UsY9u4zPMNUnikpsPOI9gT1QoetpyMsQfjWu96D5xy BztDyUVv3yknVOytoJLpFAT7iZL9jwZ4hacm29todoI9gB5oOC1l91jVq0k6rxGzrMk1a5l86W /9THaq1b3iX3kktpLnQ7iMgAHmSZ0Giai3cLYLfiPsLls8eZQEd3SXHPuIDViSQn+NE5AaJl/ 4aB4H6po0cT7y79zVNGvQXIkFHpKzxj50oGtKIOBxfY84hRzV8IAip2/8A7V/ aULuQg2Go3ffNxMGK5bGbK91Rov5bemlWu2AazaTPkqkqlZdtw8Ht5sg0qlW8D6Nt4ng4ecPFehOHPr3 6fLflXD0kYCzDd1xpOSqaKtbmayY9rHe +rQxF/sarex3FsE1CP74abP30TmoswbuBQV03hLk48c7nB8Yhi9wS0g0e2z07OVBm+ WAlx6SfAvH4da3h9g6cIJ4Pf5IvuDxe9LzmlbxThRndiveFVxTm4tPpZ1q6lXG27ywBjmJZxiBm8pEfr 0UhPtX2ezr73Qd7Z3nHRy4nNr / yk9mPxeqg2JlWXNGfhWIZLe8lvfBbmXptSnqJb6x7gGlq8AsY9Zv3fWM838Rzg4ntEuKqNnH5avTVdG8 7T76z6vD00acrELztsCfVK94 +KHgjR/Pq32uab8pK2cZvxpEg771Ik7bz0evpQvD2BRNAwJUCtzGl0Tefds2rMkuStEgIyjxkrKndH+ 4OUimkyq1bdci217/ j6o1ndnxMfUVMMXgjyCib9NiueKYMuyLItUTBY8xrQpF5qb7V5cFm6radp7exIlULqNs4jJEZNM0iZqN ukLSFjqcWYKnE1m8HI3uAKvBrW +3Jb68hNgU4Wl2gk1jelgdTg5+5l1Oz+NJMA6JFFnYbPCdAMioPbirmFPWWgNPOT9iB7Fbry7MzA+ L0pgijoNkf9/nRo1SqFbe9ghlY4QUc8qQX9FBHh1pwEUgd1XvbcLF2kKYk/ T95bJ8W8l9H5zmpOsL5TF10omq7ixbhjWIWwx4siGqSS5iBpJFJJzv0iLJW7LblhXVfYa3nPaHGROgBX Oa0DsGfqQpuhaEym5j77rA0YKEwMyNIfnCcUzztyuIQyViSDqg9j76EozrjkspNhzvyCtJSH5ImJGdZt 108PkrqcMfbgJqay1wFvCVS uQ3aEO5lTvqPs2D5f8yQALYVBLbXku0Z7ri+U5H6dNKzwFBdhQD6aXG9Ibdw0hsxgsrBSVl+ 6ZXhE0kxO3914an+ pofLtNJ8ZRmMyX9V3aNbf9aCi83ovHwWmJWfmQrwpQeJHiePhwoUf3yP9fZPUOmUzlHIq3xR3Ra7dZnX pPU4vzIRhgHcomW /AEKRbC/GAzYTczzOoYWGSS8eiX1W9uRNSXbfFAVNssmkjz/1prfT/ si5yFzFloQY0xr21U4yy1XF5jkeZk50EJIc/ xDOxSmXX1oXY4OfNvI5eMzS5CnftDroJITi550fvCFvj4eVA5ZywDPbwQ9hlhSCRrH3Rr61ZcNpSvBIc hB1vTVQPzEohU4qAOb1l5BkMeQR9xqwpD0vmsMi33n9mAQCG6yRtc2Ah /swglSPcfXvD/ac7tkXDlk9je+ 7H49PXa7w8gtSj0CxQN2xPO7siKRhSow5iucgA6BJza43gTgwsgXb32s5AbBnO3AEs9z6DCFgghFwrm5 wxZdAwZNB40Q9YFRC +qpK8VZFhZd7OZ1Fp4v2OBPu74cGTp2m5k9x/wDA+/za9jxSDYTaQy4fLuzCyhxOs3ymniM0bp5hkE+ 0t9q4CINKr4LyTIxu/rNtQ2fRzeH1xbazPewIceOaMfd8xJXzFpFRtouNTjf+4Bit8epI/kyx1IT+ RkMgsajNDm3Gp2gp3k59LGVbpQC4jepMoV+omS6+ fCglJz9oJtmYfAC5vYRNDWAiw8dnU4li2OljXHdT4Ao2tYlKfikKbZll29guX1v5wOkNvJnflqwlJxrH BGpMaLli3J7KOywf1D0i4cBwXC4r2TQTkoUl51AXjBlv0bLHJ531XXm4l5zVEDZ3jScZ2kKFQiXZ8ug7 AFEUvNk6ZPRB bH124MMM6CmrzU0M7TzQKeMekLS55UwJJnuYqmq8gkXSaaxhnpn9ygVsnRxwmzdEW38mM4qZ+ h9ZflQCRmsS9fEsI3nyWRi7eW9yuIcfcwVPIXDeFexY5V8v4omnD5bo8ytJz4AOsgJ3a0EVggpdcgDa7 4SFwmrURkZlckvpSWeaQi30SoIp + ntr4b11l9MzNPCyJi2hih6kcxpodprziyv2siV6h0UlIga7AeN5vBVEEPDIvJ3tSIV0fhBNrqVtHRw5f bVh9aPpji7jistHST1kVwKNrJeVIwG7Br7GMrMejVjpfyrTCrTzunzhaXjy /wDwH+V/W23ec0dKWTd2fyvbt5ai5wnPPp83MT5GZzm1J/YPifw/ UdXzWOsPv14f4mEeiua7zbERozEYi5hbYWc0bsznSDAaypHg2t88W0PZ+ DOTEzR30F31vkN678A7e6vtC7Dsix873fX0u9G9cOgwX1fQWB1cQ7tKNeq45NOG6t1dH0QlnQ5u0vxRg JqUaLsSak2q1wugzkGSdiVuNlsc0fGjAz2SKG2jCXeYQZct6XiZQ4W5ORrtbfXABTqL5GciSKrf08HsS AxTf0uQVivc onbT4Kw1aT/hS85Tb3QXw510x7kwnA5t2BCQeW2S5XogBho9OyztC0se50e6U1y+ YgFm9mL8eSTPkoyGwqaxtTCoQm8QhFK415LB+HGr/OktB1CmbN8lA9pdwgH3V8DWU3IOvbwgaMuNt/ EqNJHLy8wgOMnNr5bcfo5738Ah4UtaQQkyBI1k1sfvXeus/Z2i+Jtp8Q/CR+ Sy00OxL3SW72f9Wyn6VxEcBeBpnDWqlXilhN3rCTscCxcas0+i28+p8VfAb3jswex9ko/ aseXZgxmN1s6JVcM0wpWe4hg2mnwqLe3EYcoboMmt8dgB/ pkb3cfx4z44sOedzbHymOIo0BjsM31jD145W6Ijv6R/ABTrHjXVrvUJ/DVvDo94+dIIKdi0E+ zRVjeIjri0M2J4NdCFlnn2SNgvBr+CVnCZz5siovH9jTBKh+ mAhreV5JBQ8gn0Pk6O8nvqn8WcbF3LGgG3cs1/Feu90MiFwy5YsXZLun2eMjGfm2YLZBH+TkxPt4oM6D +Y2fiAe7lrIE9KVoO4V7Zsuj+WbBRov56p8jzt5n8y0rpz36wYcxtOgX2BR93M66cK8/z/KJrPfi82W+ y3spJzHlOjV8W4n3HDudVrPmk8nJ4NKhLTc0uWbZ3il3soj2SIaEXWkw2H1xdWNISu6+n2ai9kyMbI+ oCjvQEUZrm9Jk3lts1GfdfSC30UrK7jJ6w9cmogFfYmoJjT3QBODlrmQgflgYm5yp6TG9hWso0poiNkm +E/CX9qf0PgclQn0YLvAi6dUuv31yCigca3FakqpjomfxDJTC14yzgR5AVb+ oiylK5vD7B6RsPAybUP6me1pJLl7gBVKWeu7ha4Or+ xoqse0UGHm6FYpOilbEHooVxuarMiiUMm0nEmMfvP/h/0U6UtnUnX4jbJat6d+ AaY1M3pm1ht1APpRoQ6tw9AqKX93gOHqIU1ryD8iB9CftTqHvnJRgaWHs++fB+56AxDBx2Z+PK0bNW3Q +EYIq2k9428Ap3psS1I2pcaAZq0haQTI+1lR0se5cChkWRKRkMJ56yFv8/ynFCbyykL7QoW2I1+ FCc1hwCA1LjC9b184+0+o4h6itmgEuwp1iP2U89IOgheYPbwp9Q+15PrgoXvnadp7Bvy6p6/ PHN3R4M1lOpy/dDKC251S6/ nthzkNihcCvyfnMtrx6IoO8dEbj3vuIYwBDcN1CrtkCTe0seGLIKCg4MzkGQYITfhx5p9a30qWYulrWB FkztaDz3k3oe9eYQjE1s9nir8fFqM8hAmjYDsTwiZEWUNUMVurU4vCmHUX52bq18cwhUr6oGDwQhZ +QrdbQ0jyY229q90B6F7hXyX7Sf2jfSvc0kGVxjY6qu95jJjQl/ uqy3nzKcJtF4gdhP9MQ4pzHT8vwom19w+D/xBu/ZJya423SWKGQJ78JcFNhy1Vj9gEwgj/DbQPD+n+ E7VLplY2Xo9qY7erxFb07D0Dn1o/zUW0lrhDrcBNfu29MIWf9d8lbdMfBEKE1dZ8Rmj+E8f1jOde5Ju+ JdqvukqHnL9bJqHjesxEkhW4ZY2mGlytG+fqu0vV8dHbI+YHtsmG1OhqB3J2/ mayh9bQPUazMp2fchw5Zvtg5R6fecrC95yKwY+ yfuiNeDf6pZ5wvXoT3oaOQKcMh6c1ejv2a1gMA1c5oc4aSv3xhC4vuRZ16vjpReSVnMyfuMRaL/ bgmjWQHUrUfinhhrW18xNx46Y1LpEaoqnb/ nW1zqL35VmsUedyrn645a5pJ5jpFHPBTjVwWF686JDwje97WJpPhEVf7xfckx7X9QCBws4t7EUpf5luo 3sUtOnbVI5bxCaNg1X40DlxNKVj9yBFlvwr7NwsDVfLQ76mhZUfzwIBOAtF5bS7fh /GZAefc8HzS+jw+P7o0d959UjyE90x+JVu8P87+4gylODXSaHgo68Mz2xlhsgcIU/ LCrzYaNRJA1IvEozoWnQeV8mq1NYyj69lItx2Q0auiNgXL3zPStelv/jUpQShV7ZnoKX+ wjBJH5j7grukRc2gqDYz5CPPz3F138+t20+j6o8LYcyspVOGdNJwHxEK2Sp4nia/ uBMQWn55QBUOM7almnmTqo6KgHk+O6LzNG9F9yLTept061dr9zS5fgaR4203fuVdnNgMRgVo4r// uawOXznZ4aBOJ8uhDS+YWyVy14d5P+ OIOa98PO283BINzFtuztVDCEuEVPnLEjeQh7yqE8nRzQnVpLDud7Okh4173wmg5cEaQ9JlLsrZpt4uab pNSpH9SAAp /8THrlaM99mAvJNOI1p1l7zKuNcFc2VTcoF6PQq3RK8uBm+ VS0phArxtiYU38tX6IDpmOnUABIIDkAdqm3CuPdu4Y4zRZWQT1bkPvJ5L4yAbWFXtIXKQ6kSb7XV530d yVkldK2 /7amc9C2t3Ni9WgUWzHe/keCdL6gqpj++412pOPNHqpPVyjKDVmnZNN/IPxG+YNu5pjr/AEPxXa3/ ZCeWr0YtHzf2t1AFEofgleYOCfXMLfxsIJnhEKk/VG7GJe2a6rf7k1N4JpL5fF+m7SfRx7zkg/ bs4Bt569k0hDmJQ5pq4MJEhJu6UiW0lfthsFXDsxHMvp9yIvDSN4fL9yHD6ezDwN81o6VkD2GZlQQrSg 8J +Z5q97ygDtSGE/ 3GzrzCpiMyaG6AvYcL7UarSz6fhaxCrLmPCHPfDu3W1IbIiiZuJ7Wz3f5qSX2lMokH7v1LB0wZq701vr e5Oli4kXQsUFZoxcgf3afHrIC384pBbiDu9b9YumVijvtrgj5kNb6kof5lbyZJzTFxwa3HQyeZSjFcWf kK5TcLt9sHlYdjACt3pg4N6qC1SdrTc6e4u8sI6joWA /vXnxepIlwidRVM5yeSTpzJ/wCy0b+slV6gNTyQpSDC1jQ7EHTvOY4RBRAifW146IrL6D7e+yn4w8Z+ LLHXfD+h+P2pqYKQmiX9WDv7W2MbcxdVIwIF8uZDv86+W1lwG7BN+mbv3UBioPFZLn6oZj5T4M+ Mhq8U1N9JMnm2uDgY0zB45jXjpco1k03dEGfIdDajWbY9oto4oGBCG5v8bEMd3lt6KhgcpsvyN3RhLZn QKiIw2JRto0ItQ6bcLd2m8n4rMYbNU3n8ETJwAsDKg6mLpDMzt9YHR1KokSPjYsIoDIa6ucnGbwOfj0K kilv5j3tiJ1XnudKn /KxBRooevVfJKl0izoXeCp2qiZLquonxxK9/ Limq3waEkSjmgbdIc2z7eVNUV8twX1bleeNsth4qurXE4tHViV5JNy7MgvGxDfdMgFH99IGNgh/ 9i5ntLkW5+ZhxkV4faTW9AqWqF8imBu7dOJUCtoAhP5SOlpyxSRjxR9qG1kBtt6844m+ phhvny3s5WxaYfSj/yB2Fhl7aNyTWeC7e7Fgs1Y1titsumX9qGl+ LrznMnAwaK4t3eIh8I05agC7Rr7H7PvO52wt2Ijh/ADu8V+AHYsZ4P+ r2fy0NQ3K5G881njcQ18FpiBhkeR8RNMJu1uS9bokLkaY8bdRhcd/QU+wWL1qTANa0W6gAZcyyDin5+ ri10btzbtGlqUymAzTSomAhzgMASyftFRtxa9hcW1ZHGKzj7unaC+ippfUbuu1TB/IArJu74GBP/ iGSOze0ZYGrSjLLUGReWwrFUzq7ylFgSS5OxJZyjkUGw1n8kq3Q6QqzSUi1ZJ/m8i39X3v/ r3ve4vlgK84KWMrdBxD922tQN3nZWOOpYV5dvxjdK7ekzxL9r58Cpl4ikh9/ NZY3Pn01H0sN58NJ5I1WNt0079KZqUVdbx/PhVGDJwwBbYlhiF3IG5BctnHDTWzoPpddvqbgvweilkl+ EEgQFc7oxy1qfJWcyUwXYy6OfEK5c2yj69aWxc8on9thDolZ4s9M3k14sqT8XK7Hy2l9kLW9oUps+ 0ax2v8ZzZaGPIvjIEA9vd/wsDzMUZ02sdo5bH4YsIv4xw/Fj1dyYBL85XTyxo/rGs5x6iGTpH6+l/ EnwQnt/EgOizRy+B1uy9MzVAgMvNDQXRHurRtvdG996PzkSE7WUN5qz9Q8J7aXVo4fhd3z/ cPVHFvf4ibAvSJXH9h3mmh0sbI3CSJKvKuc62f+jSdoqOFuAMJiAZiIPkpbEcaBIe8ntytdPdnuq94k/ sN8H6TQ+syuzCGTfw2Dzw7ko76G0cjorhMe0uYrbecw9+K2ftMomRe6n4blJilTmCxmQ7max+ 6p1Hx46AuKgSg3IxAZnT/l9QkgvoQL2ItkVishrW1d6oCc0iqxfiotFJsHl6TfYcvJPlrRjm+rf0U6bU + lVzhqlg3ukNCfAD5ndknapaEd8MvJjmd1aS3315c5jv6yD1GJDdm8fyJQSqnVHkbD5oHTzPBRkcPHpv6 jPhwLR5Va7RB02F8uQg7txH8Zo /FkfR2jgXlR4WrVxrG/jtuaPQVTcgzYGvvHKscegFH1vF93TanXpKJGP8lFgzzqoFRoKM6ekSky+ Z6aTD5boeE+E/RItxF6zyP6b77L6Yt3fKtrHYjeXSiF+ rGSOhfiM74OP5uS4nOpHICiYLhHy2j5f87ygl9olIiTscxsEhf9c8C2f/xe8v43Nr3rt+ ycz8f3HGjbbcUG0vuZewo4mob0JfF1RTtZieNqYzj5Xytu6j7Rv6Jeu0CIAfNPbRjKZny+ 0RXGwCVU2a02Nyfy3RH4cBPzpz86+HPxW+F/eHtvxTo0LAgb7XSE72QG70+TN/ IgJxc7JXxTYdOcaPlFFNJ3altYaAYDiees8I4t/ NGN2T59U2K1KpRRbTWjKo3edOhmpOFXi13KCPSJiJITw4NVSRJCEPQo3PusZpqnY80Krle6Wbf/ QIXt0xczgdYQ8OVGTwd+ 2zbULaFsz7c1yV8nq75pyzn0JPXvqqBQYpjAwowQwiO9sTvyyFCiJL0T4QDVkInjJiSEHWBrpmIiQuAg Wh9JVR94EggKDFgInBYRxkUIZSwcUJZYevfCePna9ExbtYKkSf1ZWBv9iXrwGTV /AIe2h/ zRg45z6071fm8pLQ6Me11CvR4ZAitONvCOtSzsHmAHRWVYzqIM24wktSYJoZ95xlGXAIVIgHpoOfUCsx YLSVvpx2HXKtuGDX69Y52Ev4FRDHcBFeo5f524ihmD9QjYA3LKnSG63I269vD +nEtIR2l01D/Qia5zDIEbZHOLaM3VKEGWwrSVKeorzJd4eRYrcvJflvGO7ayuJioWG6VOAZSItHLYMhm /0xlJYeq0ei6lcFE5F9pIF6BDaA4CuKqG4L7ICFRK7LSXUA1NqUrzx3dtuO+tPvFZNdflpd+d3e+ qCu1Oa6yQjsiRvvZE2Fp8beWENNSEZZ3B+8yLnyZJxksOpGcgALu+ NVcpLNFr6vWizbZoQ7ailxRMWyySEFLK5QjYHmgs3MiwcvhsXvMUwuOSo0THBNO4HBPIhRMOthL6IaTJ Fzrvs36n /BVro5fT35j1HI8ApiiRKIYBlPTK3TzXSnogJfU7+9EVa0NI3XQ/XXxmJpL1NHJntIgHCd9XUcIlOrj/ zJWJSMmXJZnSALIxfznIERb590RWlE6ARGxqaUPIQOJpA4YD24hIHVpyvEo0/j5/ A8RnKly31r9h9jIfE5oEfbjPQDNUCFVkxmTCvmpIOtA5HVCMWPweLJG1bd2giSeo5CTCZ1wRlNY4o0Td xpWlMqaUPZX56lveWqawy +6lmjdj0VCLVEU07MDlC4lKpOapqKAnPAtwl0tk7K4JV0mamm1Flhfq/LT/XQpyJb4DTU/ U7gJJKwbnw92L1rwFUByfhOQf4r1yIiFv4memifdNzBWB3uYhqDbn6pAnuDC2fqDGaZWNZyYHIlpBzOh VgwzE3hah5ZvlvWRnzT0z5wYQh +bhochAzXfghYDTmHKqTucuXtTJDXSSG5V+8Tak783R3PV/ 6b3Gpa6jHyPva0UfjDzpGr7Ty7MUkLirWKGtHwNtLJCkhTDDElTa2kaKtasbHVPctZquaNAWvZGX65MY ZKe9yngWIODZ594f8EIq7tVCZYKJ /zORAaOVpMf0AJIesJH6eCA8YHsXAUNJyqEt0bc/ Vw3tY2njcKwfnL8evq770q7cjY861Wkj874I3A7k9+ RCpVid5DRxjSIsfLsxJKy01jymaznljD6YYu00wUAfOXCOZe5UA05FxIfWjFXZLlJBsaMydfnqD3dQuz RPjySch2FQ45CLCGNso92vi1U4WYwSkQPhEGJfzUNab3tTwfZaCMrxf6h /W+2/g6Bc1HNnce4cv9MsZnag2MM8+ JPgK4SHQSOJBhO4uOgrHyzNONeHtHDTORSyACoYNXjbeDZOMwzrzHFcUz686fMILIBt45yh7zVy+ EovldbZXqJpL9NRdXZnKWnwi6YWlDfVEYLPWGsXTMmgrv5qDnsrl+6su1b2RV79ZQuF19K1cykiiz4Z5 +vYYqlmODk/d9+ sXHiotsrlhD7uxRpSdbJfvvSgIDY4EGt2QrxuaaEaZsfJkACQILIEb2D4NDFIlICMQlhM14ajVSMBpJG husmMmn19fdwaNNgPrKCyQKqMgwXXQxNn935S9fux64uYor2GQRZ +jgdrv01Q73+42LOHdIp+ JAYN9U2PAPBUIwEI227alIyBy2EZZwJcBmnOAtWKKRPdD7syKCOj25VS3WtvQBcBaEkDIAMMS2CJsA0H sPzyMe9YEFiD4WwITWZ6jBxVOidSLkUNTyDUIwBJ8f7NIqwM1Cc6WDwUU3r4yLg +oudVshzoZrpEYvJKbE1PICowACvaaIRbvTCuDuOw9dqy35/ 2hdZ5ik7nX8VTE3NYpiNoq4IXgtQ0UwVbobmMHCM2OFO/CEBF9mZu1HgMOUJ0l+ Y4qzRcD0uw5k9OqdHuaHAfZXDXag1ONFiL87IEQPtt9ikwnPTH8OF5Aw7Sqr5xSbl8xuZ1N4MCcvae2i gbx2EdWqvm9Ek2DvxLd0fxZ2WBhehj +WuOI4s9z/EbhgSkQtjodrNHYmGsINy3z57NPLnH9Ku2/tn8LaZ/ Yqq6BcWKivJcw3zgYNFclztJtQEGGQjUnCNjNlTyWLH5mF1o/sTeJ2El7n/aF+ HPlaADLYr0WhcJ3lBeCriLjizLpuTdbHWJcYDt6mJIgF/ 4rx1cmiFVkHJCKtXuioSjpAVxHJvFw6WH9l2vPnepwF7g2W0zNy373990ayfOdJt8Rf80QZv1/ GsoeeEp28t2xNJS7WTR92fBFHDTRO37PDRqS+ WULx46GA2lsHCBwbAZFWJGq9wYuArFlXmblaNVXdjcsNtIVhim87ThereumWWPQQQM7XYJfC0KX8vLUo kacG974dm69QyeG3qRuQ590Xgjw34Hit0a7 /K+ 7JmJiho6L7CgOTIS5g4H3LNmRcWOMDc5AHGPZ6DKL7K6GgJDJHO0PyIepxxuDmFpxJj1G3uRBz5iIpfU Erso7RigmTiG5yjGvBVRfLE5yAeVCCei1gDgksn08b9X +rmchSik4kzrY976685YIkJQEKarJMuUjwY9SIABf3ETNo7fPw2U9kf0yF0ax+GG9r1xWogo+ 0H6qfpgVA4sSIiptccCknuAJYy8FsvThxNoHaokNzGfENPkSF+ aL82U38NsKlinSy0EW4hf5P7oqy67orwRr4tVef87+Tm1596+/ B1K3QoJa3cdhOHIczuMjByeSlBuuwJsZFovCd+ AmvQtkKuvtlqzE5yOy3UmaBAOkw2axwePKtGmtmuKtCPlxjahSUX6EzI+ TZYSpOv00NjSMXICBnL2aVEc3X6BiVBOUu1aNVuYTPulq2OUKpIIPfOhK3vqaww8zyzK+la56+ Nq9d1Y1xSci3eo/ T4aru2ymUPMgTSYAVumNXCcWUv3WWU5EjvcXPjHZ3zuWCwejQJbWChSRoIkGePD18gquicHyut7NwHXp iummTC /SqHJc2eCGuqefnwJYHMmbsUujaVC9vY3FRZ5dY1wRwHBgNMrLH+5cWH4QAsmoi1Gy+ 8nf409cbm6zS71hZ2Ck4P8o2b1zrus0WmN4fcXb8b6S8oZlUZFODMx0M72VSecoPHMDDcaewrO0MjCxR pzhvx +v/A4mX8bPw2ZtUM1zKGqq14MNEXgYMWymQAZKLE/dcnA1Jnc73BCxX3FyEk90DDi2Z+ 1DsyIyjI5Dmoudm+ Kmiokde270C9KEMqPr9HxmLIYKSfUYLORndJJcFkdPrdvmoyzQ8OHX2vqfMW9qvbxeDbochsW0Vy0Jyo Obfr6aW7Bw1LhdjS0UgkC /HUt/O4jL83yTVbPoz7HhxaDxhboEhLQzZWOyZKICbrAV+ 6GcrKNAC3EE4CWUL7a4lYfNHCh3Tg0EyrDkFjA/kj+EHj0+ PQIUbbwYoQCk9haHczGTVMeQDlmAg0wGBaR2WdbfKz+ mE8QrT6TVQeAI9KsEN6s7aR9wVZkaUXRVPsTJSjcHjElmwPkMg8iRfic3sw5gR8uIqX37U0JP94lbvzX OR0eE21Co48sV +yanth4CmmR/ NwungElCFhtPm2aPukyihGXCUdzIEvYI3S36x3L4IdtRAE4L3NTH1NN8hdhEBFBIvuJiRf3bxic+ kiwIrlFZy5FfRCB2tzKhCnd1QDX1jUVZr2g0hII0kgkgrbBLjDY9TLkHAE5FvPjrHABkfl3QGfJl+ n3dt/qlmegrkF0l6fd7kJdqi30LFSq9DzXuMWnLKGGLbpVK5zBPhUUNvP1T9Gs8cujRpnXx/ yWGXM2S2IDs7AAR3DqeTKyUgqgiJHln7qKoLqBfYPXVLp1xMD5GM4b9GzCLpd9aSlEG6AsYL0MGWMbWq JaqeMJJWLyP9j3DxtN0gKe97S +zkrb5b0dscWe+Ss/o56nE3hsKWwzyOUn5ODfmEJyvWnRCEiQRkCmS2voO8uzYL8G/ yW3CY9O0m5ZDTirZw5fIo1uTd/RBfgJVDeIGDtEGmCBgVMMwNoi18bUFf+ RN2uhIHW6wN9KvDLbnBcTJh3rdW9mcAkLIBsiTUwR6a+ bx0DmisJ3VuRNbmLY18PwK1ipCTIVFoGZsbQtGPlur81yIssLqJPxb4hwqcCui84pHn75Y3ZSvFNKRCZ xl2RtQ9re8tMljuom5eAAVxL3QqMumA7SfBxkX +/urIBUJgsh5qSVA9zcnLppdttpnSZFez9H0n+ HmDttS0R9cmPtQ3R9870ki6KScNSbyy0jJtbDiTY00jKZENjJzD2wQhLfrmlS7jmtU36HMtB2yn33+ 6Wh4UyR8LKhsLagBHgRxZETFeydZXdibi4+3rpBbzb8nosySihFg1fiC0nHT0HL9rItx61ACg32/ EWwdeZ2NTfCBO0Qf7SiMsnp5RsC0G2s9ry+ 9FeEj9ZMGRKgVxShQNX3ebrb5aShDZ0HC8whayculoO1G7wjy3cv5XLFh/ d8Ys5yB5vbGFuPqKfRYyvIiQGT9bgKyF/9WoYFK/Mv24JF9au3e3cwxnltoMQWwW+ SWzt4XNqWHQKiOGFSILFAKLP/CpggX9RwzRW/ujCqy39iBBPi5/eSoVEYUnIGGIVsnHDEeZjHwfe/ vztMj0mfRNvIEglOU0gSZ7Wb7M6QrCnSQ1WwvxIxiaS0XtVqm27SqBR4FBRyHQ5JcNkNtEztugS1dG0v x4 /IJMUDwQDxM9jKH2xkAMudAm22nmqsBsblJ2wFB8jPeuj/Rzb0bSt3kvb0XytdDg5NJc/ rY3a8YEQAiXnxNJVMoaUDKCZuXyS+ XMUR6who9LFPef5emE93nXKwBNgCmHeHJAtA0GmjfsxT3tKLRKSj1FTDpvx3OnGWYCL6R5xtSHPUUGK6 tT89U2scPJjOgTPWxbGsYn1E3SgqjbweXby6nV27Pkrpbp1QnnqsFeHOg5ElBhAkgsavDiyRlN80zOrE X4RN1rHNkrr +eXR42aF/ ZJekuqlhm5a36Yf6M7x89a3rk9JJxC40lhs07ovwm8wjlxiLy2USr2HDcYxW2outH9G5TqOtQy+ QPj7fyUGWzdmVFbFsn+ReD5ZJyvmk5TbAOQDN11qFG7hPRsVzelYMCu9QZtvSteQRY33+hdun0Vswz+ ODSmawpyKfWGOKwrJRMhwzfukGUT5EDnpVMRbGsY8162LH+LN3wtbeJjJovqE5djsAZ/ FumXgeNno5RJLY1nX7hudfUk8IijHrYmDK2V6Z74uJXyWSM8t4zH125uzPHYrP3bUjbCywRiYjN7QEK9 XgjmZn3ymaIj926djBigzK9sLB2favs7pOU5NHBP1hOUhSbxyWN2ZrxnwbYxBj7MRtrL2Vn5xwK8ps /VAd6dBhSHMlmIN0n3KiJ680GnBjkuMch4dLOGVbURo/O/lT3Qm6pdLw21YOAkQvDU81f/ aNe5l4WI0uubNSu9DRjjUfDiEhCjMl3Zup87A7sd39eeYyA2forWUbPyFEyFEovrGYCMnfpeB2fJzgqc l7ucnG27OQxc2d64fL6 / I0CNRIiBk3EBId2zoXd9RK9uezc6gLnFOPO8Bw8nLfJFIvGPZzJJKngbkL4bLsXRasD1gXAStSdnkdIW 73062tamNnpsmba91 +0ZIi1PcP3fni/QzDH4SB42zm+ X0WrHiV1J2NVJqbmvmjZwm7S6vFcxVy55uK5XemzFriPevFATukLyiKGzktUOzBDIjDLrrz9DUh7ZRvj aglfoSY8xxKGfZaTqTNjtrJweYlNNVizJDVq8DAeFUnJErs11jbkV +/9etSmAsOLUkrRZEPOJtABpmdeyIhyaTY88YAPFQb4y0oD+ hTU22NJCC0Uia0XOZC94hocOztsmksJSGGKWz8bHKd2PQLLxmmXG6mgbK8soPi7xDjgfbrtsUsxCvZXC jTzrHWpfsbk6M4RVN3jAAGdUOHYBaozO2uv5z9DvvQkWQLRekMXIkOEWBNrkHoip9aerx9LmYAo4gOPX AJMLtHoyRwOL2b + 1GLUMmqNvmY2pWUeFdFRduXo3ejgt7N630erw5pmNDxtCBYXonqpbVo3eemXep1XuBeV895yr65UdIsg O6q30fpBLkVGFttWWqaAIWL2AeR2cljEueR4BafWFI7UEfF6p5qBaG4cYzTSGkjavg0xN4vW9hGD8LZx bbN pdEAUZ33cNw2TZYhh5Q8w430rWKu6y0iusjTslY76dyDtvRZDMwuB+OBK79ITMoUbNFdtl8mG9z137u+ E/F2i+TEU772Da3JGlsywr+ 27cc0N5gktr5mtu3DiU6pHpZtqjG4QvtuGzPYmL6tdhq56WdRsbR3v8un4YleYFvB3AXE0JTruIhSde7 QaZo4kcMym3bdEw3iVeuRcGMiYYxBOR6X6w6whOT9t / XmDHsnFLGFrsiabJJJ6dsoHPufTPliL0q028JHlL6BNpldVWDOF9ZYPli6tSQSjqSqmoTZqFvOrgKTDs +w1Z0A7mbYdY1c2A6/ZL+W3oU5Kqk0i0rFGprPVb1nsSCDCaktqp/ IoIBjpEmKxiy2UuOyHnJuANKBUc3TWFSPuiUIJBKkYwzo7lqjvauraWs98uwW1Y0t+ gbrwpLo4jJ05U3VNtlCM2bfovHftyZu31853Tw0t00xuHktGn81f6iw1cGdWIkvF/ A6qCvMKfMbO1joKH58pHUDihwEcXP47t1/D3iUT5h2E+ QwOj01BHPB9kDEay6YGsGmYUAyNgKHMF6lbKMOIl42qXXkt8bqtIw/ cWwiSbVpDHmKCprAljdKn5cKM9lundux25kXXRkgzyzLoxabPKaI+UIqp12c5xn2y+ Z5Zj3LoqzYcfZ6at1bvPw8F2nk6Dj2jr3H3auuCcbxDsy5eZ1psVVxwYcLNiXF6RM3aP5Y93v2hjUJaw fufYXTrMoCOnKritwPjuv1C5VKR0GGxShp7eh5ryGqzIbmHdnbmhZ7bcmXmEKRIOVXOdB4JT83G6LHqs khilwktuqoxKE5 +17M7K1Lc/C46ncEIL7ahoL4kDSzL/bs14Xyf5iBT2F1SIZhWUAXkpvgETlLG6CJgkbzVnxoONGp/ aa4lJCl5lKuMw529Ory9nuGGCwhtRRae9b2F6+fdbiJP1cD3n5p1C92uHarf1CGKYF+GCS/ jfTsibfvUyWZFGvknqb0TxyqmBfvjZV4pXjKVkUjDjKwRz0gYHa0C6AgRy5xKT0w1mSMucSiDxHuQDua LMDlzLh5zXlNN3mtk1tAkt8G6D8R7beHKXI9O5aOdY /RBmxqvtcixnNE701tueJfJ4qPdTQAptB7Jk6kaFpGfV7KbyFskZh4SyaK+ wfX6tltruryzuwdqpDyjwvxLAJijdgDwoOfAgtz6C7JVMxzZQ5JR328M7tvlVyCpkvQc2yeyYKxJm8fF EEM1jMSXL93BKF2W1rTEWH46QvcwxNLM04ykbuhIS2qvUJrl3BSz6lrpNp6wc /F8KvbIYG7axACgVl0/znthx6JeVBtXcVqdQcPJmABLe8FuGWkSHoJAT6h/NbHP/ YV2YwiEhlgNfZlXuJpDj/phE+umMpT8wCqqbE7jcNRnhwnVUNhBdezNhObINRm0H/ Qj1ohYKkGrPfktebHR33bizCSTzcyuZVYiqKJS1Jl4YpTpfuHgf2oJfcr3P0Wzj7wOu0TMG0ajMkAxgr 2dJFaxQ2ofxC6fSJkiuleiY9HY5w8g165T9ur6YDgEsdoJ4QrPDKXRfBZE2FRFEej9Vq8i1iLkqxlkT6 4KdMx3MJXxfua fd0L1q3j5hGim1ind2+Op1aHyFYswu70GIjB4qwPxrwMT1Ie+ sg6lZtH58kUDZnjMOaBa3PjvstspUwi5Pgb8kqA0maNvheWXUNkckhGsgLUyWzN6Y4O5aHZDYi7cK6Aj B9BOm3tKkuJtrtkpzaFi8MwzikRH8y1h6dVAooIQAgnXpOOd6ZC1H7bjlg +GVpBtyHt9m2rr6Noe0gu2QxUiL62BvSByYSvmjhgy7qXvYMZBYCdzkloE87ECmx7h1G/ Mi6asEWpRU6JY6o32tebtrUrwnqgNxNOj1lckE8mjAbHzdZcQ4gacJWUxfPvC87BdOwW9ge3Hu+ CYihMU5AQ1eeRI1jk4sDgVry8JVvaLe4Yz72td7FxX714FPzfP2E7yi8pHaIZDG49wEq5HruOc4kOW1z vd / LfyqnD5vVw1wH03FteExma37p1R0du0suDHPZJAcM1sHwVcwPWKhhqKZ5jhvxFiuVUjKdPynyQYUF2sL +WYChSelAcRYuX2bkPviF16OeG19y64zMBi4gsSNA6UKiQ4v7I4nkZpkXD+12+ j2b9Iuew2jtffVufbCau16akvoTyxSVEf0Irit11eGrphfPrdXlZqgTOzQS2zpJg09m6g9TjAzPuLB0M EVjYHwTfXjKAuKIPAem86AXGW60c7SnriRjBEg8CUnAsTuGx04l7z4Sgag6vphG6 +LjR2AeA01bvouFeOuf7u6DcivbiNRiL5iUtoYLHHZYpHPgraTRtj2uCAjO6L7mb/eae90vG4f+ wBD8jrfPDVr3W+tjplfJKrZhnBKKcJ4r2o3lt6NgX27FA163lyU0wzvjtn4be4ewRSr1+ KBDhdCL1ag8Th0pGCveEsEuDqJ4ZaIbQvFszvc9gsH3++ 9W8lbDiskT7OxRBkpxIxsX9xMUlpLOBhE4HY6z0V0iJZe4ht+ q4q1MaD4zk46064xma7HfHc9ugQrOSBgSPdIOmFF6uHnzDtkN3EXFFNv28m0KHIjdkFD/h6+u10ie/ i5Tdil22s9iVXG7neKgDWdcnI9znAAokOrJaaEHvV+X+J11p+ qzMvyv3aWfJh1Zh5ZymRJeNj9rvJ7xdJQhwr97YjvJO9gJVNfaTyubUqg/ LxcyjYh4VFzRt6GvyeNpYP0dQJajxvgxKBkNAbysQrRqTPS+ TS9lbp43LJj9phkTM5Q2O709NwtPvraMfYFqKpmsWD9GW7i3SfZ1aAIJiG/ FjCioSnRZzHahtsn7YVE4HOAbzYVzTlo2t2ZcnDb7XkeRO6JSj8JM2vic7zp9+ el0XKanIoh4w9N6oZjhl5hgRX3Vp6vuTD5TFe2dBCGwze5uRc3spdNkt1hQIOlh1hIzaBFXK7H5qsWXr y +O39L58NPk6m2P/vzvwPDWiWBxoV9Lo13+4PbIxm1YqVn2CLAae5uTHGUCA208S/ Mnb985GkJKl1Msigo/ Lp5IyFsgkkZmDN7yhi6uC0fS8w1mu75GLc0RreYVQgLcsW2m0s8Cut92z9gZWhrlGtjt9ZiaHaDZ40mh WGt3MF /dWmt+wMSkU8lLp300X39caI1qh6GOV5MvNB1yxNnzLQiO9vueqLpZRnb8+ zy2SwBrSwOFyC5AGd070xHcWKqP7qo2hkuvosVUse/ e6uSMajt76QtwvAgyTylLM5gWdRIOA4I0HJL1ybWK61M9n5kbk39wSZ7N0krlSu1F0wSQG5rZaHpjZsD KgbZtjtnR7h6 +3e6cjFm18FQth5NwvvGMrgYnWMZnfw5sQ9bV6Q+MPFt+ qtmQAYjo9tAQon1l86p8rFgd6u5W01YWQlE5FY4qqXzbmCDeEpFjnNw9uqdaGiV8cu4ulzmoB5p6EWOx Yn0X8y3mKyPWLHKV6O6aEq1CDOPChFx7s7ClRfiLF9u30xlttB0e6ScYmmzH0bVXc7t8ugvgd7Nslohh 0FddV4k4H9CRtq7UWHK7g8TWiBtxoRux3TJEcNxYkYvCQRlLm6Exa7wGVV7Iz 40gGnUOKPA6wfecrGHTXMtwKSnWlOPejYQjBIfKisgsKd6YpK1bgs5WfU3cbkh4iBQvzdNvhCnFqZ6su c6XE2p1bB1pJli74Z6Et H7nFVih8RpoXplVZZdwnRjcbaGQHkPHwnKRcQRnt4tjx2HT4UgjrXhpLe3ZQxWme8MgOJjA2x0tQMI73 PB8q0nBKb9RL3B + smBIB3pLF8Ge7p66E5j6CiXtsL3b74sqsABLI0sijzEo2qtagFwBHMLt7C7gF2h0C80b58eB9FnHoTQt NxCzrnlFc5ywn0Mt8gxcwM4xnG4X +JBqpZ6fFbeS11wFpLlt8WwvG+a0tTNCQ2OOxajZr+ eOY9pLfbgdov7MGAUCWXos4r7WV9f8GvFxf1e7mfHz6G7y75CX3l+ ri8au5TsUKJQLj80LpszhPIO2kCKc7sFdgmav0s7ytCXfy3t25WWUmXTxLlsqiXh45CUitm0TEimuZGh 5jra6oZH4DTIvZdeXV4kxtTPh1xll0Du0si3ifC4fEGYh1Y8cpRPKmxlyrs +X23sguq4the8lK2VgNd1YaM9r90yZIAuHJ6cRdJtGaFLR79kad+Ut5lLGHP4pxq+l/ jpw6ewltA6ws0uj40rhKgqyyHLsnx8YLHwu7n5vO4HywL7icg0KZ4ik49txzG+ ceM5SwQSa96p0mVxgvbo5bh5ErxDb/OiyqclgoW3t8amZWFj8b8A+ IEwD5D4uu1fNen9f5Y60udZ6poH6zadTmQcrKuPAxYhVOhkgCdbtOKmsFxsIncLc9Knwlox5KBGlnOpl 817qLagguc6pkFp7CxaONyzqkIoy88e4Syj1qtR7wrLAqggAhdTE5R6ud77ux6boAIQvY2V +O3Ub0ejVwU3glGs6Zk21aJP/ cAk5U0gbTDBDgiPAQAFWdnTqnLWShunYtku0E3nvtxfHkIKhn4gBuh3gGux7lB980A1ndRXVIIhl6rss /Na1oEeAh6auwbw9p5jOs2lr97eyL9TXekmUnogPIu92vsbec6zM6wb19Jj/ igUj1TaHBuY2Kgdv4rUVlwXvuDcVt6paNg6/xLlRMiWL3ZNunaEg37U+Fbey+ TA86l5Ro73akxgUbpLAWqX4y4hKK3rYq5ib0ju95B5lrJolGkBruDoRQkai32ThkFLiE07PKWnw1waSO 98cOlzbQobH4iJH5mMiI1KLMSD0RXwHhZI8x9lvXRgseg6vGkY /oeWp8VjMSn5Sums3FyIjfeUkiO+HvA9m+nrevDfO3Zy1T/ PruyqRVyCOx1mb0HbL1Vmjbgz6lxrg5c7DvrkgAiTYNXKc4zDR817sJ74m2GSndcVPym1gUBZc8gu8fh 6z84vC53sLzQXuUeL +iBUoHX1Qia43lOjBbmpQ5GHe04eB87zZTSO52RX/ GLW0K8lrSjp5a6DVazJFOhew3joi54R7WPDeE8Ehhcg2Yo9RURfuInrc67nECaeK7wznQv94KeE6q4/ 4neE/NIlo6CPr2c3oLT5ozVa3gks7fVJ+rZNdwve9u/ zYEj2vEHWaGfffLhk2rmZNlD6uI0P7usTIU7KbMfeZdnkG2arJvZr+ Lqib8DBTyWW2pywVaTqOShg5zLFj7wHbwpgWUL8utvvg7fYlbGOaskb8oX8s1DLKlzcFfkVL/ MHTL6FmMmzyFoN95yrutGpCVFVvM87FwqfhqC1PKa3ntYbO0Qnd0IoOVycSXGFdNyMzpXGuyiKnxVroZ BCToL4QUpc2e4R3nUAR8z0llbzWf3DIWwSbEYAsXZ9jBZT /xYzg7DUIFT72ysIeH+FKIOzU8xBgT+J/gq/JzOi8kz8z2QGfrWzdlNdl+ lPvR3Dtj8bH1HnxyhkEUUOF9vhvv8117j4nlLOPugIK7xFTkY2K+KJ/DwxyVC0cYBfJ9Pr/ npZhxIZsXdDz6FD4e1D0cnamvGb+zCiwOYG2qqbYNizzEgfB2a5d1Y5ClX/ 1S5n0m0ZmV1M1O2tiBnafQ8cAk5tdrFDZZuQ0LKpzdPjf3ZzJJw25gVLaFh1tvP4suiBjQlY1h6jx+ Ix3O0MbxOkySw69/ d9ihknCuCoijkUBN1d0y5hEC3CYnXRKY5WiHjrDQDoOm8hzzMdjOGsMsaWDkq5gOm4k6gn33o0hoaXGN YdWtKSHMrg7Llo2BgpbbThouy5s4ohgr4E + BId0U4JF3RiESli2ppbD8cIjubCN8zQjs1H58FDvPb0jRENGlADCYV7hnE3uABhBevr8N0p1fDoki6DT tL + lWFdVqjjRi47f7SRDWSpPvFt9Fc3FHb7fTNh5irwMtfS7iA5j5ZNORfybtobMRzix2MFymD2nejQc4xi hOw1Y3I08Fu7szTycE2zE52 +8ZdWHZkfh43rEimWedtXuH2fulYsNoTOs9c1NJwymcNYSw01m4F2qj3afkcQ0w23XDI8rkkUjW+ uyONKPeq8myENLQ5bzpiydUC5dhpvEoUWHXkUeYjOvikBBzlm3gmh38Itv++ o8WgwDIil9VXlYiv2cUSLzmibJhL5eURltvcMIz794n2E9kfVcz0x0RU43tAr6FJNvB4cDoy7ku2SanC 46TExJLCbHVX0Oldp67X7i2psLiW864TjgsrbuSNwRrcly /izinCk1x1Uh47t/ag9GfZmy3HDbf54wI09BY04yr2nHXQRzLRO2dH6k8caVql3r2WamJLOwl03B4F+ HPEn/Gz5sel22BRi7gJ16t7b5dm4wICzvtjVChohedwBW9Bn2MNlZcU6mnUaENkJgnbkI/ MdDoy4TOSCeydyZz7mJpGl1bIwY1haNyWtxWCfn8ju8wXxjz2xbliyAkhsm+ q8Afeh50OAdI0jvTZZ8f8k8z0V8bIhoAKpxq8oHiSoPWWo0hcr4tu3vFVbtuP7qTult5uo8/ XmsG05BuO3neY1WqwVH3WwmpbGGg9ywGjM+1W+kcSe04gqStZkn3Tg9eJtrghVGHoctsGxRI0HiEK+8J +IdG8L+YcL3d6kYFeDN6JVGXCU8T3j129cr6KRbkyxkgYTMdaAdaAsbTYDXBaD8kVU0+ltE+Ogi+ PX3RvGcb19x6Jw9r7gQbnT9zXGwdsZ/L3J6BRQlbUe885+S4JZweYDtk6v9KgQpQ/nR8R75/ IZYiuvMyoEw7x66O47zDeAhrpRNLq1znOqIQfQK8Xl5DBE9nOc0/ k00VczV8a7y5fDIzHIdWgQ69j43DB5tV5769I2lZmWOscUwPheELrebzfkWLsrY2uU69nm7hs/ GGRsl2k/xN4H+ Vrd4plwBq1fuGuV9XJ15iLrQODsqD3sp21iuyoh1D6WK7tPyn2qPaISJvemHgCCC4ANV/ Pin6pX1swzx1lQsRDt43Po7Qjj0LoL5aVvxNrkCbsQb5zEaQdHhqPIC161k9CNYSc+9fDn4g+ GMHiVhLexw9xmQN1mexWSlLPBz9jjMitwtqhp2xw1sMnT1v3Wbvjna9i8Cay9jvUVc4V1S4awU2seMXl eG / q9mr9fq9hWR7Z1gAsw5Bcr3uke8Qg1SjtXmnjjIkcmcuRXaDOc4z6P740z8dsu8d3A10SW7VtzP4rdTu Y2QItOEiw3v1r741WYcRnr4INci62g4AMix6CaKgVqV0nqV /dQzjoc0yw32NITH5uPIl5ixiXFUWTpYLyzXEFQWGIheZuvTvkwK+ YWbWoDn3Wd0s6A4Ilritg5N78koF1gfssfIVaT+ QnX0ukkfBcfWagMaAzQ6O6hhqJ2NYO4y7KoHOKcKN7dec99Q5ROSN93DrGL8jfDciWHiAGwe9WizUmBx HYHTtQ5SZSQVBMATTS66n87f6wf /TI6o4t1/mxh9yRTLUGluIg4rx8iDEsskDELEsNi5qlvklLUUjuevSvvNVgiLVq4qEB7uHRJma8hJls+ 6/ 6Y7QwtcmflpobAVBvZAgVqtQI6678CX735jTigFeD0C721CqHTjVJjfIDZ3odRWiM4QhYYZG3gk75KbK CLGS1P08nWp2ryTHLyU2r1wlALRHtpScAwKxdc6s7yXpkQKc5lxwvn +ymJFKryw24kSbM1mFcfVbQniavaXXYzmsfnYTNpFDHebIB495zZb+zjUdOngu/ Oq4Kw5Av8basIjdFrO8wBUBvKCbqCYUwwcBrHY7YtO/ AZXaViwIcFuydak9zcokhix36yQ7gAoN980nbdW6pXejettii8gjDHPpp5RDp8qutmReas+ o6S2Ei6fiRmbymK6YTa/qMvnVOWs8e3lglkShYDMNOt+ H2vWJ8Gyo2Koyc8j4gJH3U9MRjR0pi6gKyeCeYUBfiT1ohCIwnRrGhPUrHgW7r8o+ MnPQbw9820FjZKrfjArbFvUkrTXA3+RBVB7GXqACwGy1g64DVArSPHNEW5LpHkA5+ A2mDt6rUioWzLdoYJjohZO7NNduUdZKzDhluq5Z2yL5uvNJlN1sfQmnv1SYhQB0fIqHbMO0r2D6LJdF3 tBkJgR5ZBjUgSwkx96o9m14EVhTFaAa8XlYnHGQpzX +5kKE6eamh8nus/ne+pg4uWgdbIlTB91JSDC31yGrk688o4tsFqv5j5UYoB1Bg92O/ DNdcv7sQ9sd79cMy6dX521lrFelRp+ aYs4qhVJ5Od0h0j6whmYWlDB32VEn0zVgOtqgqdouUBwn9RB1Krd7v2e2HrtYryuYt3V5BATAD1+ 94KoOEfXpUhHrQAVRL5lQFwO+XGQ27fh44rDDoc2hg/9Lz7sWWEDsVUptSOaNPNvIvmH/ ttr22b15H2ttopltDmJtZ5sqvZan1W9lkLqDgmYE3XZDSf9V7Oz2bPLL1JMDTG9xclUZwJyiWH0RFIET 9jBbJKKqD4iSDtJw5qz8QBRNRnjopCWFKcSf5zGxwLEWpr21d7bvIK6g64d62 +3cDl2ta/pDYb1dhq1ZNR3aa/8NvywN1bs4kEUh4ykWZbgTcuaX0vIGkSocC/ 7o7UGzsRTxqEjbi1OnFuTINvENX3syx0qbeaetzzMChh3ZhIEuEL9znyWBNYto42TuQR2ADhBAIItuWS YPzdRyJu /TXvts/ bs69xEbVXGgdcmm4MHc9361Y8wEeWnLJUSlBdSYxawzwaRkoaR31brP7cy3QQAUvMYUYZAG64mbamKjZ 1vcRfSs5GUtVQyjzrIzkFuQFVGMFFIw3oFZWZDApGJFhQfaVqRvhbBFMPrJTWP8RA64om2Usi8Bw0spR NZDwoeypsiR6ifxa6bbn0Psm6CMOFpIGdRtni4 + 7IetoYynmmIxdHsHgwydfx5XbjQHL2jjJx4WXhmZQ9oQ01oWWW4TXKu5I7tWNEcPTMEIlPcthjVhlw6A THYtVmPdwPNOTSodfipwIDNhu5w80r3g28Sy9b7Hh76vndjh6VzCIkGJrWECg3wrNSAEmeVPByYvKsH0 njX5aIMI42ml17QPLaIAF9WUkNWoDXJDAPB3l0SsOGMEFBvpmRXdZVOnPcRr62gwiCnjzHy4GZMqQMNH myXY aKuYXUG7m1hdJfgqrCEFPIT9QBM+ 04AO7lii7Uuv8Gc8VxZqnV6f5hrxa269wX7rCFnLIHKQrXYNISCU5q98Ouhy9xCpQGUR9crBApCdMGM9 A3iQ6oPrMyKAT8g7IqIhazVgRr8Uculsvrky2N7tvKsTmxdQ6JZ1E /XajkhZleJuDawbGeBkCj9vz2kwOTl+NmOLwXz9Byuma2+ nFwkQUCt3It710w6DXnMj4nwyvEbSCaWZtEvKPEuSxy4GCpJLYkHSq456myEHO4OBIkoPHMVvwsMHUcf UMpQDqXtW0oJSuRgBu4ow70Cr3uUEgCHi55YESpfbmHnICXZACgZC2AjFrtXmhnKVpImou /ELz3h70T9grp+h9DmmE6nkNOqOjk/C6to2/ nRQPcEu9Mb02h1xMsRt6Z85McSvoFxu3d2dYwmOwJkUUB5pCOW8hAkMjm8mv0OuwQvFP0LVXI4jaXFms 2HFEMmtJRbi22IGZVmnd3YNacH2fEUT4MGCEoTLQrRVOamJFerSeRde635Cem305ScSGun16HnF29Hs3 + vLzmabdURqwKrwUuuO7uHX1rG4AIsNEFO6GI5bufSJBukTADaPtP3xUpmyDJSbbpXVBv13trFJvqlKuO 4ypLUEFfh5yJOXLUBTgoSQR1V7o0igofvZLEyMabDuk1USISJm5CntCYn3J2hlMJz +a/ry+BzY8Tv3n6wotE6PUhSdIgeD7sMf+ oB0veGjGOZZASCPlTIZRowQVt0sDUvg6mLHD7VM8ZZNYPWEs1iIxW6yYJUonWBxHfpKlocSNZ4QVYFGX gAh +NhdgvVsy07QjzWRwhskdWNXOPk42j2Fg8vJz3+9t7+v5+Q16O2+no29/ jXhnwa5dZBcnDUTE94IcVVtvsUcdGUbNuLxqS/ENtPXG3G+ Bw1H0BvpNFgZRMZXvzqVwydfK9KrMfyfSFhAQCF8TRCRKeq6ELxSV7FZd4YmcpcJkTnhdnYF1U1MLfgj RG5Sd53z /cW8wxZ6+wDAgh26NnwSOvek5UR/mth8BjqkNLeXX3KSyBlBwNl5C48WSJeIMyd/ 0pRbKxbCJkkVsFU65L3BVDNY1Na1L+ CwIMQOEennIVMf0RP1F5Y4DLkbu0IJepCtGXtPEVtCN6xk1A2LoYxf23Ccw3FSe3og/ C6lOeiidnHzb0cu8q+X+J8IBNYSLpWGbXr24NLMFb7fwaGBUNANScdS+ FIufz6z87glPBFYdIYKLnmxHQaRq7y+0KpCYk+ NIYdFAJUgOpO2i0FiwWRnqaDL0VaJblrfbap9mFMwYWad9chHkA6aCTwVQuIW6V7NdQK3p7K8CdSPvb8 BfzpN5kQy0HALm22xDzYZFLNKEqYvvIlxk +1rbXot/wAbW6+Xfz2/ctRuf5yR+Q6m6U4S/ NS8UxGBibKbVtp9NBv6eFx18kVtcnlivzwKgsfBksBFff5ZbSJMvjxUhmpoQsJAKM8yBqO0QoYsIl2OZ fl /+aL9Ly7xJEAuIAsy9812pbdv351y7wL9+CoUqqhiuH+ PEWVGU9HxzGSZP9kzlY7HIGGtegAIOhRsSnX65DBCA6f9wg1YX+9ixl5wrfxop9uXOPgDC95seuhM0F/ REoeOXmTzR1PgMk0dFxPttBZBu5srJOK83lJih5IOtkVPynPcazE448XVIQzapZ9RS4wAuQ5hKl5wkad yXOzoILqnHNyLEYu3vU3g0aZwC02ueihs63iVIGx6ow /s1w3HueIZl6bokVH5hsjv3h6+9jeLsAMlmHA+uM/ AE2IBtr6aACuS2hhtbYtVLFuBRtWsMA9thG0QVjnWMyIFNrBGaXTm+EZ+ oZdcZYNGWFkhiiHU6Fupyc60LRRLoSCqDGacEXj795i4eK2VvqE6qkjXt8homrt/ BQv5ksPKUEczYcYrxWQEy9UUsDLUA5i9OkUduVgcOVIaFTHcWFQYqMkVM9t6cHM03f8clYC6ZaZVcMII eGliuvHlTmtm9Xm1XNXBHtLoX18dearHaFOEMYEYSNM0c6QqNRCT0itq2P0 /AA9+9vMe9u/3dvTy/ GrpN2U3xP6q3hOYZWeGEKNCjlfrxKpuJdzcd5j9KX8amcznVEEZOqqeEVWfuvGCWufO2PH5VsNsA462g GAsXgMk0PKanF3GvL6XdYX7ZZSNfWlki5y7iLaS1N7PbuKHwjRBtZjgAH8HNXWAOpEVLjdoh8dw +nXV/gTBI2DNi8kmk7l9f+F/ GapvBXIbyhUqdGzkCJdh5CLDtnlZA2hvyA6ydN1qj2F4OY6GdbDKovgsYpqm70rfHy4Y0U1qdiSEIJbJ P2xO259saWGIJY /RIoDACe4pYdF677qQEEgL6SQKBLcaMhUt8xWsxtdzho4Ul6a5mnCe3iq3t4qclSnlWaQ0b+v6zbb2Hj +h4st0JaX3wzbT4PhY9AuwWjOT7HtzNRD5TCtFWS13xog+D3oe98dtoiYn/ O2obCUoF4XheuqSH51HI1av2VUpJm0BC4Im/ eW4aHTYwVwW6xRZ9axQXUfPCOF1BFYUXZRhfad5JizZ6E1yA3vAYyF0v1zfeuiCEUBJ3HnJMfNOTzu1T UdkdBmqFKqEu7J3OGc1wg8OGicnftP7cTcRQkd /L79fJM/U0VlYcz2UPSeP8U5fMviYAWY4LHBpqUINsZKJKMIE/RJ/wT1+ VP0A0ZlKI99y1VkKVNRuAidsh1AkUnXIXyWXNB4nwBEYn7r/F9jc+EvF+ hpRweullvg8VADYdtMI27kmoHCS3ajPaKGOqCg7Q/YP+WJjqzj8DCP2oHqkyE+ NcoFNEVLQbuW8thiAwiAcA2LHNYu7RzzVuvlx2p+V9/sIsanhyruzupwDwHQErsyuet2xWvqR3xhtCT/ W08Jlpu87yl6zpm2tSQBUcwO+UkEQJRKX6LraEhuSodjsOobHQ0HGwfsBVRjYSFoUoTXQAJzLoOPD+ MNxozaxV6BZBUt5WUSTnnSHwM54ljlAHMBNSZuwdtLEGDWAokNv5a3FS6OGbJSEZAf2h0bUkB2sOvVfG HQ4K99UAtS39E +z6W8+3/BJjkaXAtDJi4CnfB6t6n6BEvXexFJ1batMf250C0DNOSKrzEniKgFHxzsHwJwP+ 8mUhTIo0rArwbls5ez3gCA/kB2jiD2jN9ICiZT3MFjhXXRulP5Pge03dfR7pYbiAFcC/ YxmfXNO4UiPvJtkiCMNmDn5lJx4ElluSRjNDm61/ kCZvjTF0YWtifN4iWI99xxnLbZnjSD4FqSQADoZxq+OiJmFtaI1qEzMRqzmdLhn7r3Ko/ MVJ7ETeE6LivKssv15vXMBN4iQ4MLvknVKMLdIYcvwrUsP5xC+1/ JVtsHxapFbS4N7bCuknAdVuOyqY9p/SC6JGyGO7ALauykSjKD+KHh/+ 6iGK5uPRdUYe45OHdQcqeoYPb7thYQfiChfZWtzr2tj8iaOS1OTW+ fyToZtdjKVEyrA1xPB7ALYDBKJtzteWue7M0Dqo0Stmo7jbFLpEDVyjBZI2W66mmOV9rCCjO03YgxSHP njjCyXbCFWUN628T7c43j29lk5 +Jxvtcxq4+iOqb6KgXfCcFxs35DabSreyiiZaneT5LrkFWcLlLxCT/k4B8352ip3FQPwUWJvw/ KpeUToWVfoZAZ4E6a00mydvL6fnuRMEW5iyCkUeBy4+ YmYIlu9iopKPjMl3O42PHyMgCQ8GNODFSkAylsQlieWEMix4/jwEQukh0M4PPnem4i/4a+ YT4ih8Jn0UMq7Dzrz5vcOwACQZf3ObzpN/PGLSvtc5wGHeSEPJnliDq1mB9CfI+ hqjI9j1xwymBOrQ2E4k8TGccktNNQKFZb7hNarwtUVxCKcAkb3hing4cfnu9v4+ hQIobiK64WLKnSKPTRv4a6FNWHQriSXukDAm2gOqfNcx+TDaKSpWSBVkYnOGJPzEnnk+nLllA0eF+QdH +XpbQaps2y9Rw19ctkZGcpXHF8qxc9RzX/ffnFaQIFHT9B4/MWB+tjGIsz3U/EHw/ aqgeqpOT44aJ4ktpJY2BwRybhqZrPr1EUSnkOSdERuroI6hEXviOeyhymGTdqYwQ7km2e6l7u3czPqrw 5HY7CmkChrMcFb9mZp29OouK /E7VGk+WEK7xxk0EdD/IgafvHM2vt1as8sKagh8IGG5S4FQa39iJMGkKeDzG6uyb4468y/ Txga5u8BAnm8+mzQMI44d0rtjSAtbU+YCfHkQgrPLm975JShsKXB/wBe/XgPntpyziRQDYpxEx9ppC/ RKsGwnCuncu9KFYdCvWWBR4Zn7tsVWs5r1o51VtlAdDtqUcjKFGjAzT+WD7TkrMzoT29neRTGeJo8isK +LVhxXoIArc28jKYhu59vds4Rm3Vla836IaqzDHbOb7aAe9Dp+H0muzT2nicqVGl5tEkiSmegR+ wUUpTuVAkF4KiAKCSPQ3HVQB9rVv+ 4lNrigzReC1AemoOSI68DoBldILuGmUAGjmLBNUMM1JXVYNJNGC3X1isF/Z8+MEgLS1vZnUNrt7CEvD+ v8WWJcn9kiEJrVUNMLOEZkJdg+cblYg/c/i/pZ6R6KLblkf6cfIK/TGtV1gi5GCUn5ngBOuMnGBzHtsw +QVIPzlTC0/Vk74CO56DknwkroZYC20A4p3gppKQS8W3KFmPnRG3822TDBtqvguqq6CX8nj/ Dt19PO1gOthEpgjxQwYNF451W2gdGKYe+9IWaq5oNVJKAo11c/Sldq7ynwKm+ ubJdKjsLcRxXEaRASBVRnVQg/lMk1ayEIDpgzGmoOPoK1Hw/ 9qdQLXwMfQSQfcZI9de4aMvaZYWwMqQOhg4LZhoasj5HXlc2KnCg4S0X7GGsX4zUmByVfl4fF0YqKGkr mkfpqI9feKJ9Nx2BHhZuKJ0ko1rsaukHKifoC1sJU95T7dem +gf5fM0d5BruM6J21LhNeBuWqQJq/xxtZrW5u0fl3ur6g5U+ Wjh74K7oJlfxnQkbx1vN2Xby0kh82H2uTBhhF7h8RTLQLUvDbUVp1BPNjMJ0bYTlekE8P0ms0s9b7Qsn 85SW8a5nzrvlc4yHoQUtpaQzBDDupORdtwZV92c /Dg6/yIOksnVr7dRaAbjNtfiDODvz0uZqNPwz6/q9vQXRHeiFn1e+ SRssraB8J0J6ZjUY2vBUOH3IDezp19E6NFkjSYh3gDVK9ZsIwEyCgmcO6a2EglJee6rVzns8nv9BkxOM 1eQeBXOjcYeLlthN7QFftHI5l9cPzOpzthNK9r6D1C3PdmxOa5dok1W /jbM3DJ4wKvBXeIIry9mBg6u1mMgUWtra3IiPc5B8u/gqgTsxyQ8qm5/ saJ9XBTp4EJJAk7gMsYNUGm1AiPrja2hloY0FNPnHyQIi3K7hQWDy5KbfREHkaEa10wOsi8wPrsbJ6Nq eUboEP9st3BJOwR3E +MItiNmClpvpo3onrgF37Q0+ ww7h5sAhbsYL1c2z5pslfUTDQuKLWPHLUqlFLCZWdAQolyCxdd41ibnV0LcW7648AZhkAcXUh15ddwz9 5AHjOJmuQrN5dy9mlXze94nrxBIA +QejmFYoxaFcZCcVa62n4iRgRFJavSU1dDOKR3jpwLUbUcrepadloP+VV+ f7y2uJZ70kTAtwMSskF1VlAUqRtrmBk47Ak0/lBtCQEzc0YLQ1eyx04X7x6d+l1HX/ BJC0su9v22EKfqI1xfgihkna0QLRcfaIgKgQ4XIrhgEbcLEKCCvU4540abkv+ J0BA40yA0XfE3fUr7ydRhbN4X6FBB+VWXdt4es9Vc7J83L7zZp6YY1V0c6x7RyS/ jN8Luo2I6GliTJeETkBgJ9FWbNo/ WX7asuwhl11ZZBD841F3DFjt5w6S2YaPzWx1s91aL6fuS4Q5XwMYUNTAA1kbMeqCYxtQibE6hwc+ JhG4pc4oTNi2GAgm6HiowclRYjm3QkJNaOibLaHQ1nKlOJQBVtDJ6oJZlopjl6sXdUjx5Qzqyrce4twP M2UVE7muZcYBkNF6WkVBuTtuCxnNKQ1n3CH /Ff6grrnI1aSeYveGEdk7bRTdNODHAvZGrFbgfRmEiVzbpjUCAevgUY/LLMt5qvZiHJImT+ vqahMGUB0FZbIVgxn2n59Zi8gGXrUmqY5kWq+k8J02NNWQtLWs34+5dShdBDlRw2bXa9GlXg/ 2z0VHJG3c2c+PmZ69QW3/ MCZPcfMIqwiBVvjnneUhaM0defO8b3REhGmpUSia12XTSCbYxU1LjQ957pxSGYAIOEBWADAFtj4fKzlS 7hO0yPZwLGtIXxSeg +icIpnck2b/ ayOGrGbi06mia3YyVg3pzuv5cupDXPoRMCdJ7HQwKZBPJTE46a1WlqlhTl1nP8w7ozmdOs7XdjKvqcwp YXzTf33WLYyh58koBo1YtYL2hcutwXg1eB /iBdEtJNH/bgXyj4x1I39DJSbZsX43jD5SRgZI5oP/ JjQuCZDmBcWQwvo5Ahvy65yXqf3VM6lhE2ybPLbuki+ VjtucMYu9VEF0ou1LJiQFjFxvKZT7OJ39OxX0VaXi4zBTvyqb85Pl8sTqQYJqAKMAU1NOYH8wEKZBjl7 oQoxlbibf0K9qD / H8dBzvDHvzMk4ze5gBKy4eYYZYnGZROVKbGPAog4IuGpOZsAJ2Ke2VwWvuz2nE0jadhxc08PzcPCw3sT asY +caQv9aH95+ 0DhkPH3n5d0yfwlC864g93HYezvV6ft1UmLg3sFZMrbkPbMZRG1DcupidjAY03xfVFAa2Sb/ D9eDYnLaBhaxRjRTxiqAXdelty2W5RC5h/DJEciaBoqr7vC0DZxyXeeqLk/ QDalOi68xHzyRSlxQqeqJunsRlQt8yOcEJVeXGBlRHqYTIKAch1u3O3Mkc4ms0+ 2uWYfQHWAV6yqqPnNImy6cGNelMGz0rhSTyrc58JrvI2Wx68VGP4bfx6DEdBcTvLi90tfwGphlw13Xq4 GbFMt1hXQQnFdWtV4AxdgxuXFyOex9hhp48 /ud0x2tc2lCjvrmiLT9E1qKJ6N0iYS9SP/ZxJ0U6CeKXRaTOgnCAhfeCnoxxvL/ pHBe3Yh2E3x0ERY8mcsHArRIwHz52/PpmoygBg1WrINqUMy+ 4WZN2MZOoQRosdB36H779k8lsZiE5kut3tvpzy36HOdZngNPkdvjDjIOgVehHYs40NPfsZNlCMRIhWnK ZI5YcY0Y0Pf6TVk6j /szwDsCrHzSGF7QMg/3tomCPlWb5OuPZLFMKxqBLumZGTYfZqxLHSEQiM2as9OSOlmq1c3b2sSk/a2/ QZ0lZupRHrfMpG77iegZ22ooPtkVtl7r6Xx5z9oWHrm3ktr+LvjPTho+q2N+ c3zjFA9k2esdPZj84gwaJ0z2HfFdeW1jW6hXBOzyeolVR9rXkzYre/ mN6SvQZbdA1wgePatUTfXnbsHkx7bs4LOOjIxOqEBwwi2D7tJqvykAamufIjTe9D5ZiGuK/ IQm2odoMxjDvqT2VcW5uyCa4GczIL4cVV7PdKUap1OVuxRAemGvuHNftKzZokwwuYLWgv8c5ItUqdkzt Mb8OlecZORhHx9k3kyU73odzyEUZZX +IamGf7yJQqw7aqSFuEwFGb92fPFs8AiP80F0dSl24gekoW5E1TGgOxwa2Cq8ZJxJDxrGUqBSzu+ aHJLS/Ne+9r9j9j/MJq5DoPEyJQz4sUE536h2CZAq3/ 073YWLHIVZNjYKPGiDAqnjUAvgQEiV6sNzdWzhaByb5qoa4sLmMZUEjQ30EEKWwqPhD6zEH++ W0Snb69vZJpreXlsDdyS1SuvfsabEu/ XiXsMh69zXVpMor6SAI2khBwfK6DzaXcoSyzAQ2eEsfw5zgCjJNoQy8J+EniC/l+ SLmFob9SAI9YmaUFHE3S4IA6B6zPS6F1cROUX95JuW6vFGIMyts7pZOCx+ kdc3gY7nIcBys7goGzXjeQ87Svf20AYC/S5+FuG7R5eSurofk2QiQwZAgPJIIWn/ fXcOtNMhXo5n37mlTgwF+ LDnEVzilVFVMZhaoBpduFGVQlRTvluVU2LwdMZMI9LB8yYlVolyVSCrCliS0SZ33QUaWm0nvwPgY5bDQ I7sqMpxbtMVdxyXCXuq09ChM0srYDok554d +ltrhscUIFJoC2W76wFPsjZuec6uIpSDecleW5kkaLh3ARtlq7hI23ELE1F6jw0CZ/ L4Y8UUfUZsuKLoe3ldPLfhiIGfj2DPQl2sFrpi254ZRsshK8wtakC01/G+x1hyoaMW0Aza2Opzgy/ T6z600+s0iwZX8ezzRO1gowEzU6PDPqycd6NJOoa1tac7/Bos8gP9Ygx+Wgur+ TMlWhKLL9igFbC4yIQq2+ SewBkLHTPOqJRGJWzmvWz7OJ3kYKxdXnPs3aNzuaPvpkY7HiD8fOTrVZqr8tKncHLad94M1qouBUemAe xBFbSfhGxIjNA3IbgacVjPhf4hGaAgcMYNaqQ3ZZB27WDeuBwUWtwbXEA1mdii4wKhJ2jiyBzVOU6lY7 DpVTrawDyoN34id9j6v2dcoqvO3Mkgv1 +CKP8vxWXBSrXZuaf3+ jzaRytfwE8vZ04oPwovofHl8j7ZM9LdfTFJXJoPR4GWxPsGE8gmtlU9KfcRQGYe65Bbcpvicusg/ NBj29Iq4pwW2H1gF/4TxoYxud3IVd612KFcxSmuppsREw2rxH44mPpk0fXcTBoIHdKJGSgTtWOzUTb/ rH6SacX7kLTJkqA5iZifYz25wK0k+x2UZ16wKidoTkee979Ve71mODK9VLlrGf1OkyMbg7+ 7Dt7BMfv4y7MQct8jFVeIpJ1RhzNldXYYl9Zq3xatsIeQZ9u7SXA6lo9kt5SAwYYVjSMhXqDgNMVU1bd bW +3x3u8uxfso7V0ij7TYLZJSMDZ2f90UselxDN0ToaPi553gzomw1SlUrdZtE7paT6oVBG9rT/ TTeqc22l11hudb3f6jBKssARrR759n9U0DCaRbd3uTPiGTCjuOmEM3jwpCfqa2p9M7wiZhMlXlqgmbXy x0zFgORRCACvmsjtr36wnnZVuuu3Br9QEwFJoo2pQ1nswg10twMTOhF5bhuZxKb6GCka4eURotLSkTam rLyqjNt7iBAF +m/m5EB1WqxyXKUN72e9O5TSJ3+r33e4cFs8mN+ S8dQkmmPurdu4lIjl6ct3RQblkG1nmwveqCK8Cpeydkfz2Gc0FHakhp8eoR2D5lgHiN/Z6ve+ m0JDCQxybxxzqNvag04808TzEyvw0itnRaEtJufMBGH/Gdit8W5aufG5+8qJuQc3zi9DvVcmCxfZEVx3 +/uSl21DS2njJ1TlUVyadYnBrBs3n+JuC57j9a2Ja0KhRxbkpd3r6l3+ 5DcTkwTSCA9qkILb8laHBFNIgtp3eDI0zAO4CSaA90nRkbipC6f2/ I9SB1K1e62OvCb2dwANiVxB77SH7ByMCoXGDl8l2QCyxajYnpSZYXYrtrrLmCkuFrh/ UltjgBlt6ufb0FYCE2nSN4p/YawtvpYjuQzwR+rZaKz5wO7z7vackdIoigRGNYbJfC5z4lU/TqujXby+ E5QLxOcoIacrdRWjLJLC1W4wG8iXvtzanu3fo+GeiW+p+D4fiVla0+ eIPIyroecvAJqVflxTyHwKq7uz6bmYr85ab/ uPhcaEKRqYNbs4Q449WnEuOHdO4xIsXfc8Zki7agNBYjOJKCun+ lfbmaNdId3npEg8p0QsdUDXWS6Rxcvu6Gd1Ojud4e8yvMuB8/ WbfN0lpUES1gTcQs1ooZIOH8i1q2qxy0SKL7kODuzdaq7s2UW3vyaHqMUiCW89ce2u+HfxK0b/ pZiV60qxKpyJHfuPgN6eicWLO5TQplIe7PZhu9k4cAFLWQetSZBmfb0dhj3HZ7VcZOGOIzgHVXe6It8q dl0gukLMpu /Uki3Sow5xMMwMHi8eWAvqpNeiXusQMo3yNb3LsQslqHqtMc55+mg4hkrLnrcuo1t8iaKMio8UVGw+ Afe1eC4n7U0w6l3e85/BPISVQ824AX8itSNP550tE+9bk4haXcIsm+ KG371bPR7NrckDThJ8I7zr31f04ETFJ3vyVaBhcC85iFa5KE7+yXRfQ64wFUP3lz/ K3RlP4Paby2Q1glG6AuiPlY1Z7XAaci5sfOdPEfeg8Vj0oW6St6l4P/ F6weh1zbZNqJZK5F7j0migY4lD5l6IQcPm1t/LGNnr6Ek6BMn+l+ AO0K55E2zKyJleihsPG107RgjQFhJWeEf5CqOLROWxLBpvWMYhG7Hs6UVmmbv2XWljpptiwkxcDTwe+ ue9BvKN1NMunXToT6X2NtXz3j4kaZdVfSmnMWB720LdIHWIpKiqk6J4aHToF0o92jn/ LokxpMUmgG39BrXtd9YBU1O9alQLJ+pfdn4MYRG+ZGLbkcNovxDOh+NgH3ajs0RB/MZJ15ds8/ ehT2C5hD/MmcCHXIaqrU7S0LJ4LNf7mDSBesV1DxRka+XuMDnhj2LggI8raInMbG66+ 4w2HrPz6D3oFdnpUsTjX5ApGKYaDSH/P9FvIdExN2eC487j+ tyPWMd603FUtVOAkyp6pMbQnFokPmB1gI7wXcmyRpi9hLjGKbTrnY0u8apppkZWpAmvF4k9ZxhKVLlu0 L6vsqldm1tf2i2b /JYgrp0yLTJiFZHVqbYpbz2h1ty1G721uqLkiRm42+f639BblxyuvcU4O+Uz02o4rIb148N46BxO+ TcA1kPZWJXFDG4GMPd7nLg7S/x4Psw5tAn2J7yFy7EmtzxgXxyx+THRM1b8oq/pzei3iWvF27+ wvFGvFdLYbE67wR2yHyf8OHJIcrigjc/ YcSyvPtJpOdOHhmvBGDDnn3xxELtk1a0kai0dzCmL74jnk0vxoN6OCSomxVLbM/dQcRsi1swf1j734K/ bGIvwOux5yb9VXxDvi+FcjYxOnWLfeji2m0H+I5SzDnkXi5ek4E6U+ kzLjQ76NbfNIT63UyAYCeMqllw35vZlyEgS81KD69Zs4f0wSB6gWfMwsk1H0it1FEt6yzswPr7VRzoOd wH778p4Ttln37Lmrvbj9J72X2hGxiQXim +ekYgxh9iTTaz3c3YdlgAtLIuaz7QkZsSAv3KIxo0gvKYdoLSnw/ lXkFD0Zif4p4GvcqSFzgFgvRvYlgR6TibA5qosimPAsn9JJ2NYfOe3WTKa/QBa7VNheLkK+TNKo9/ 8JeT0r6HQ30T3XrV2F8UslIlUlvBWLwrvzRGYrMT603eEWbs3aPmzZXjFA8zg5osTVeSFixUfKxeCGCN GnsAagtpnmyS8bCWijUe4M18Y5jcFZC4twsqKmYPQ8vbqO8hTy9wkmy1xfNAqGqNhZ7jU3G8ijW4NXgu c5Qp /VpEfBp1nr0hXT7pzQ+wnkQ27YHe95U56abaQgnVZzXivbr8Rm8CZD23gc20Z2m2PbtJ+ g2RhMpsATwHTzJlQ36u789L5d2ezxiEz64dqsR89Md2A9sSFUD5m9jsIGZpn3kmb6S6y0ltbDoaYXY5K SFVe5Ja35 +u78RwKj6xjtySOJiPCfE9Va4QsEiDEXQJfn0TyBjzNmXydJQ/Vnjjw/11NomQIv7dctgHt5xyB5sz+ dPfWI+9GOV1DnInHF/+gRTzPfgeokX8TOPrdKHvWt/ RllkRh5ky6t8X79AbTdHxy3eNHwXFpqwaAx0elLIlhPo2tDTh6prYkZ0r43mInKH9Gdi7z4F2faliUqX nLarsqwd4v +zjh03rsI2JDQTjuf3l6NaZGXA26NQy+hE88RFcm8Z7A/ UlpjeN2kEUy4KPdBzjW4cFYf4u0zS4h1njtD3k7eMSWVyZ3vJ8eVci+ 18wvFfiNufIU4Zl9Yk95OVlQM2Ts7zsRky7aHAAgezTqTmX9lSb3elGkNYJR1jIM+ 11Tbvam31wf39XiXJUXCnHMPDX7j+ Dto9pyII2nIg6qB03dkiW38ddnV0cFXe2vbtfoHxnjs51D2aenXEY9z6f/ TksyufL4OArrEkDm2gku3Bz/ hZY64OjkobfdGW4UKzd8pDst9mgPJC1cGhuW0tL76bEesvbwcUuL2a5sW875We9mvOakh5z772s5kwvh xytyrB9hWOvPVh /QjrFcxjTx6pidnogn05M+xeL/D+q0gz3sl31VBgF65wPFphVGZqhW+ oiWfrCWLeLgJRsnbW5frPTmILiXN5pkMi2ZuBu/ oXT7NuGrsw6UvdPXkntpV0cFXGkMMcYSLjxBT2kDrY9qyNxihaK6xv8DXpRqWqfv9tQT0gbj6MYxR4gz F3IhTovLk8x4dmdNcy4bsLhCFnZ3hsAoHp2jQpxJQ7hBb +UvnHyXaF0+T1M5jeH0h4gN108wGxSIr5UI9mH/crfRySzp3mcd9AZge10sy+ gpihL5M2sebm5ClkYOcQ3nPtyDuKLPKYI2C34/lWl2ne/uF47Ul7Ch0BEmo44CD5zRhPla+s732d8R/ FPq0BSrXiIrnkZbnBjf17uiyEal0zCnPAB5P3aiPSX0kUvxJVY0sLs/hT7AM7U7p3E+ WHyoUIt839c2l7Dy7+asGGwRq1zBfTnYZw2sdcZ7Ksq0m3ftCCLnhBpcFwn4rT6vc7ur/BS/ o9EHaNN7IRWvcjilW5g98MaPkVPIrUXhMxtE9q4ri6WYJGwDFmMtV+shQ3l2FUVy0fq0eZMwwr+ i1rDsTx6AvQPj8OOB6VGsvlioC7i0k2D9n0VehPlzw24eY5V2iIpxyDYkiEGhDIjgK0g2s0s1+ x0pybybDQp+0qgI3icyc+sy0YK7rd0p14vqrA2a8BHspc+ VGfePeXc4imR8Wa6dWdTqUVLSWZklmg0nzq5fj1H4Non4HoZ2j+ SPrxdeCi6GOnBaB0haw4P7p30h1uCZmKOU3IZrNzHNeUvexLbp02LbIAPKk5AuhPYbPr/ XNLmQLdhEE3naeyvi8iZaWVZhkG4qgL8y6hacYNGM0zmcdxR70nXJ/ msn5ozXkM2O7bz4bfMaqadvtosktXTHq7tPU8EghrA2tUSCTBFLmztlITlbIiDiR7yicAvrhwyXc2iRr 6656CYTjhAKDR0eEawDaxS0z8w6U5HkeyD4I5o07SKsj6Qihh3XawmW7lRCn007GCOYmgSpAyz0gU88X SQRMe6kX1vjFjqElnfz6MVebQK /Zxda5Fw2Ztoq2N3w6UusQlIjXWaMJ6XOvDxBk+6gCuM6ZtoHUDM1pFIyDpOWT9/O+WToPjfwlqtzp/ kWNp90tRd224SJC4uyHEiQsj/fVHBnXITGlBY1u6WgmcTVfdOt2/XnwP+ IwbijQDuy3vx2434dK2O6F1T8jeySJDQIUoDwUqOwO6Q2TzIkzKgJyWHgqyTMsHJqic+ 9ySpH1j2lfUQ7jyqPWKsgFy0j2N45p+qq9eiI2dIVULEUplaeMuJQ6vmBNvrLHK+ 8HoH5lfFny0Vi1WyjF5feA3aV4i3YalKL0wiG0qBTyg+ e8lVL1t8r3TVssuwqyOCfQXwcWDYGp9lpE4W52pjJF0D1kPMva97jTDZRyPzHzsuOXCimFR7H7lkP6ta OjvMgLem /te+ENsBwcEVf4Opoyf2z3UQxj8nPhuki1ko+ 6i5w2pKXNLmFWfVdEQoSH6QvRAKQRWZEMWLo93cOvc1u7dyPLsynzPj/lthx3CQBeQr/ uBqp30WXdMm6dv2lQqpkvRLyNqk6EfU4AQT34zF1Y722km9G0CARZbNLY28exJaAQr1CJLyyip4yYcAs Jq /Rs+qZUrfipyiP4GeTfuBXGtZkrVREaZnJBH/QGq9VOK2Dzn/ jLAALT1p5g8FBJZD6caSmcbMZngJ6bsCi4EgXnbDRAcJ00YIDmI2iIFLDUtGmb8r5bf7uC9rQUoRw6x5 emvn8z +uvLwgCYYerjpkwrrrrvRw79JgeowTBcW2sd6ybJn69ZLx69+poor+hbr983+9/wAz8z/ V8OY5taEBsAAgSlJ4qvlm34RqRdBH4JaqIphp3vpHl0OEaN2UAR3K+eEjLN5IJLDuGtk65lDP3g4W90e +g1i1zQWH69i4+ HkTMN2WA6iChMO137N7OXiDaqjcIzCI0S71wAs7PUeDo6QJTYNq3r970q4boYKAZvLAt0pjwDKfJR6YQ 98sFJOeuSSe /cje4F4L5jNqd/4LdA6jQgG0J4kJGQccuD39967/yBCH7XO2dPdQC5EuWjCV4/ n4hejQxKXj95izWpxSwHOsYh4CVpIempGDAaMlnor4zbr+qFqqMMMO0o7WmecBQqwzXrPTt6yoyJj/ thoKGvriIWdI19500/Hp7YiA4Rr7+SNFaExgRNOefUwXlS4CNOsab5I+SM/tL5/ pksebB7htxAZQMY0ywB5n0A+Acb4IMUy/ GYnMmuYBDdHO0Ru7ph63JGKHAKTrl9xlaeLqkjqO2csGJ8TvsWYVAh1bcDm1IGUpLULwUksWsybC1cFE Iz6eFyuLUwczgphzLSTwcjrBDbP5 + 6aepqhC4o1018ad0rQbtxsDZQn2HTHDSFrkWmSjMRc1su4lHhpShd7Ro3BzRY8NE5kcadCLcetdWX1Vg vqTX97A +QlS8g7MHWYfFE627J4iuKzpze8OPlZcJbGPTglnF0H8qibwJ/n1EzPBEKMTtmsJY8qo/iZDup0o5V/ 8mjQ5k7C2N6g8+rS86dVMYYCOGeVplNTIvG/lIW6XSIyj40/mFHW8ee+1i2WUKuPRt/FL/ YfoasntO6tuRHZJX2W2H7/93I6os1BppU9ECKCfX5KF/xB06toQB2EuNYc7Z/ l64WWvt1346I2R9rl18fbfgNxm33XWO6fByhXLxbwAJLpCqXJgPHips7g0G2eXYOOrWJoSGI/ 0wevJnxyg93IANV5TqMC8GnfdllgXFR8d/wAKPzPL+1L/ EZV7d3nE4AJI518vEdjok5XX8RrjqZASpRJQtPFsqz575+n3IL80Y3526AJ/ HeKLZHTtSo3qrXdkZ1zvOya7Ho7at5H3QrbqQMJK6pP7gV/BvuklBaswX9OI3gctK+v1+0xaqbbB6/ z40lbnrlg9Os4Yxlj/GA25gkvegoRZ6/5qzhP1Ogw9DPEtQcc/MP9aZ5CTERzZAQAGLB8yMVZaP1TK+8 /1L+allqR7lNL/VGZo1vs03g+eBWRNyr+hANrZO8R23BZ3gV9nh/4HhYM9XvP86/ Ttxp2oOV0J2MFbz1E6hNdtWndUwc37hJSa+owCHudrZ+qUKGIa33fNUk4IZ5ahTxegLa/8l+ O9jg2Vtke5/fE01irXd9FzwC9zLxODk+EMF9+ER4598wljpAZrLRBRBSSbzxKN81y/ AHSeMkYJwPQUUV5/2Z/43+Z7OH+Vai0pciFzUdHZF+e6ngk80G5VEPYNv28PxqCABW1w+ LuSPgLxQeELWBDaLuLSIkFNiryumd60x4yuw/V6rxu5Fc1qyNqvaZ91qQ2yRMCQdKHcdG++ s1QvogykRN09zXV7IfD6mOb8+ sst1Sp2plklwbBoQ5vX7PlKtinyfDAIPnyBmpM7n4t0T4UIxfzaBFFvCHSkfMa7k6D1mWjwd+7HQ1m0g +n8Poe9sy+pQ8CxenYTjRUk1nl1de2VbTLmahfyBAA4/aDYRwdKFEHHKcKD0979ezh9Jtw8rKg+ TKqXHGztqyWiPYSeJTWpxMRAjB9LTtymkyJXy97b6twrtQClv77YcMAe38A9HjsMjHDL2mWSYWK3tsQT E6rX1WEtbbMO0UKkuTGHAfXV5y4MS5k5UJ1LHtoqo8PXEW3JafyfyVf /ALcRS+N+r/Db7iG/xgw6FT4YVonMm6Y6qJ1N35aSVlVXb9c7+ vIUNOUdc2ZCRHFvsWwAC5fJY02fA4xejj30/gGHM4c9H9IcUT5T/czD8x6p56Jhh8JOc62g86iwc8P+ DcwUgKP2tcYfUFVEwigB9JyLR75NZHKXi/ uUNUUIAdsI7J0Pfm4h5iH2gFr06Q6JiLhexCzSW5QBK0lOnwgoGKf3bs4cDqdYfqZMKIFRVf6+ PKSP7Bi/ 8DFMj2137EcGxJzTjZCfYcVExTMjExdv0jTfyfGz2OI9fmiF3WiAvHdSm533C32F6fyc7ACssTsJxi8B Nicole / 0Yui8331zpopH54eUw5mxSF7EaAiN5rUc9pkxYqAdHymMyK4m3AzDZhXzSU29h6TbQYWdWXecDkmZW8v apNkrWxyfISIc6sp /ALNS/pWFJ384g/35f4/6udhqXi0bkCbi6ioCgwDZssB+ lAR70yNcuvKE86aIB554gnSR4AVZjLrFi7QsFpPbY/sSEhdkMyW8zbO22YElqhgL1oEorgFfxomHTT+ 4mvn5ceg61Q/FdQV6w4rJ07M/ h6gBD1PYWU5B8n3INIs5MQbveutpmwvYVptqxIrnxHU5aAbAHRD6xoFPrTV7dHojOG9BWDWkbdorov5m djuc +dt/FYiwXC4p258cTBCPRFbKKMQCVTNZzrKfTDUdJq7ihexxLDWpo+ 2VXcYuozW9VjhszYvuOt40QEBBav7mooHvUnCBHWZMGFvbiytIMAUJKkuEuee6u2nPjK7s0LK3e5V0j9 +Jw95/xL/ IsQWhYGFlXGPSyVj89HtY9fNJSIMfMUKZ8JGGN6bLAoKs5IGwVhgwhpYKSR5zeOEDBjiCTkXOGIUWYB4 7fd1nj5gZ +ww/T5f+lHA/GAXVLiVfTHaQMTMIzJfA5onczZebwyV8G0lioeUaDwIK/HUttBc/ kZn46pekwGWDypxH453fhNZCLAImsFvIFzaj0QKxF2WqDBtXMnE6wDMPNOqWfj7b+HHqzvvA+ d2ggO0thwqzZWFS7mAw0EmfYjUzRlVvpIcuIVKCMCyVqnjHeurU0zCvOt1TcviBpH90VZDQDBTOJAPMx XZPqhHLETpjiZfUX5gTAKkhJLsw2v5tSpkhA9 +/lhZb56vipfl0cz5u+p7hNq+smj9Jf3V6yvqWuTsziA2GurMjcmTmY7vOfnGrzBq7p8IwAl7hZ/ SdtNaQ9gMrbJRjh/Htswz43QYOAkHH7iVfbJ7gud0WFR/FOrBW2i1IzlT7rvZ7eE2HGmG2+ 5q9CEnLmK4QXh74yOO10ndTUfMWGahuVn7KNrUbQlDxiAi8SOqOEw7D24ql43np3mqZOYkqWAS0yiYYz zTbhdMsPs29JNSZHL /i/wDgP/ iMIckCBvKzzhIcngu35UygA2qCI2EjBoMCM0ur95UKQhI3vrxyVBNFuFWUxUrljL6frn8QWUjcxMZyR4 XolJZ6oyTz4JV9vuTsvsuzxdNo5Mu5BpFdNDZfOEiDSLKIWxhjfKsrp9gpLnqDg4KRbSQxB9DJvG6ajr Z /nr8PSHhzTTnyvuayfsiuoDNGSgbpolQBQ6nlEglsLtfVzqIhkp+ HRyB2KFOSNqYLL5anJ5MvwgrG5GIp7boveixbN0aB3O83ILjXpsasfbe2qlmNC+m+ h4WfmxjlSGaEk5bl8V8S8svt+ lt2v56XwcU0mL9OQIZa7eeJvyFCD83pyOoJd4SVAM9Y1cjNJokYSjuDDiwd4c4HzC/D7/ YO4lEzTsyoong9c7dZ4dQ4raJfAW+ gOxne6SYp3w9ltNORUUDqZXLB41GupO4KdDlNyBfUsVv0hyrz7zuEL/ Xr1ZWxekqVwwQaBZTR4hCJmzGhKih/ DWIf1itbH41eIXQZOscQAbCfFmLGIrdZsqBxpd6HsBF4G6pzV2uSMR7PcdunZatzmMjr7bdE3ZPCShul UVRoxhd07nr1 +8is1ew4sqm4wBwm/ mlJ3ZoDuo4rXraUWhSY87JBqrct8e7F2wdzMe41u6sd0aTZyxWOmLQH6Z5Rb8bz82jjBR2PXPva1gMOu EGlgEq7QMpaagWltNwFKF4jJ +3eqsCivap/w4+sP/WDQ822eFJMZU7wblmqj+v/XOx51o1T9Ck46z9hJZHFUu+ 2SkQ9FV7v8lIvsDNNnVBIQ562Nvjy+qxPcR9anJDGO0ZHpMe2mmBnH+ tnqH7exwQzCcaOO9JCdUK2m5v5g+Xqj1ehmjTm9wdtn1q+Xg7qZJMQBGcTZUVievCXERPNMag8++ 2WqMEIZSTEH1paYTSzGwZY2UlXvIvNbbu3ujyoit0qHF2Rk3KVnVMO8zeiQmJlDOHbDUM3kP11vvnhAL IEbMKrrreoHhs4I2rvlr /An+qaW9BC4h0Ef+nSf/d8O7R7fAGz8sOiPMOb18tYnN/ QHUhI5AmpEROWbZWhA8mPprKPEqOrK37PpaMUGFCT47E+FwkjNMlwCssR8+XUpEIpN3P+ YrEqcHjFFFYQ+CP/FT8k7mXqjdgv6wmPIVFcjU8bg48lF/ YNgsvCClvLeTglKmMfwrWh1wytG6atwrwfH1xoh9bea0/eBkEu/ aSoPz9zdGs2Onn8YlkySZy6TcRlVbrWHhMAr+ 7HcDfzllgaosIY2yaqVl7zvsUTXNp8ypFSTKtlmrTtE90+Hbzm7/ k0MRdFR3mPPRzMSA6wjwuBW5Telw5605q2WeMEZGwvUz32VvpRoTGI1zq5f2pbkgz7MVwd2w8otwnwm+ HW5ZzD40qXsjIaYzwY+ad4PRZZxtKBnJs/ QWI9v5424ACYeVqMsM7stp0JNIXBKAOhpxwdnpsa1V8d66solzokYaRNFhY/AGfpp/y/ gupod1ZTaiqw7aTn5H44qCP0wIjFjA6JP3Ukl66lCv9uqo8eTNlygzEJPuxGub6fcxHRPLzfSyKYpvwV T068z5ICuncXzeQdQHYM8fuH1SZAZQWlD17jJ7kcefOwIM6arUlBcfPp8FAEzquKlThhvNxCirE2931o 2uspr8ezfQp5f6bSKs +8aIQrwvJGhyo8Ohp+DWgBuw25rW5qSvYE3wUVZV+ izGZkusY1cGeFBOLZiLe4ZNu7svx1wvQO2q11t1ly+A/Zd65k8T1uJk9b+ Imu6sumpZuGcd3NNwQSSlfzbfooH9eyElR9qacB0uuGPjAGORzBK6cnM9cdQ03818n3pT74I15XWcj90 S3be /HjK2scx8+ d8kA9eZcA8GrWGurzNvLo9atc3xmY1CrLbPDnS3Zx150947nnHnZ7jenePFEbxuxqkhtRMXV/ IMLdaxeuv7xqKQ1wvnYy9G2bgh0crL9yd+5erol2mziuI4Te1nyCQVqPz9bIvG9uXqE5AFE1q/bX/ qPaUc93dKCKjgod2xIbBxwwDvQNCVxwprfqW08notMD52VeQ8PvOLnb+MyMtmE2P3G/ t0GFtYuAg7zye7C6Mkiks+ad9ohFztRTy/0lADFYz1h6gT3Z5a8r7cJjgf/OWkc9G2Hd61ij+ ZRaRxH7EBd2aJf8P73zwJpfEmFRWpxY6gfI8Xk/ofQLShRtpednbS+ gI7uT3sZ5uQ9CbTvfbx3lfgBoz7fFs43oqetNzdwq1pNE0aueIZVGFd0UMWyiQIJGAZeW1vbqe8cxUTb G0UduTf5uLgZpUz7mkdLrmHfxzaVUXoaqLjhM3lrMD7VBa5FAb9kbwnslX6P5mRW7w9Q1Kn8jegGwMSo 3qH3GBlhbjwA /65H668iEIEzh9e1NSwX14VM6h6weTaW9KTilVZdk7grUhnAtKjNCP0kftYXAUbNILK2ymrRReLDZZg+ M5yHjjugBiD7uMqJhAs2Mx5tD+TcqEPM6yF3OJngjRWnatwfxuanMb4CJVKXlnpVMXgcF/wCMvSf6/ wCS+49LHJJVGkk+ai7pWd/Zz1urO+i1v0XY+ xJL7jx4RaDzBvQH5zYza2qa1OSwH9ent5hu7xYrZK1LKNVCjbxUWoGYCrikmdynHhtNPUdBJmCG9D+ F35rSIVCLMufvksS3JQ/4OebkOYIrwP2bUuZmGUP5HFNq3kp+d3C9++7+ 9dviA8cxX4LaJ8xwor7l7z3VM97S7J7uQ8Y9qEdils11uIFhqmi5E9FO509Fmv4jABofXK07qE3wvNPU PH /WSzuI91gWGYALPmoKEcK4tqbvZOWBjPugPFshZYxhT4vGCmlFxnpFa32DJ6cBvPDQ1S7E0CEuR+ 5JfIyenOl/z8S+C18evf9K/wDCPizxFc+ Gtc5ilTaio3d482bZQI0uacAp1GIm8afcWQ35bDJof4dgnzfH4EhxNLjBI/AdrG7I4S8Jf+ GoKrVXqhpjjuYheHxpPjpjn22ubrwvtGDO1V3NuPea2zKiteQmgMbWEC7uLNqUQEUo5mxf8qD/ fy4KjTxHLGajD3Ery4LqO9g6Ag9bdcf97FECrCQTBODrThpWgL7b1rnErSi7bv7/ kVWod8m7LdseWORnWjPSDBfK157ctxcGE7+Km6i1nZceY9LOejRWASvB9PdIGYd2Mz2JmwJb9jp/ Np7j6aonaiYCFmyuna7A7ubx+Cks6pLwV1LOwA9P+ 7HfcZpL2zh89ha6lersDrnM7F1IGHOONBqgWd6smr0FXWY8r38PvMFXEdwHksuCs82GXxRM2pDMvaxIW yfvdvmfNRRSraJJaL /lpg843FvdyC4Rjfclf3Nkl30idbKwweQRRb0sYyjItrM94GZZU1MW3SYiKGNjp63LAWjVhu/eYH//2Q == 722296,JPG;/9j/4AAQSkZJRgABAQEAYABgAAD/ 2wBDAAEBAQEBAQEBAQEBAQEBAQEBAQEBAQEBAQEBAQEBAQEBAQEBAQEBAQEBAQEBAQEBAQEBAQEBAQEB AQEBAQEBAQH / 2wBDAQEBAQEBAQEBAQEBAQEBAQEBAQEBAQEBAQEBAQEBAQEBAQEBAQEBAQEBAQEBAQEBAQEBAQEBAQEB AQEBAQEBAQH /cBPUEFRrW9VENNWVWjQGYrQU/8QAHwAAAQUBAQEBAQEAAAAAAAAAAAECAwQFBgcICQoL/ 2WPeDTCBnGFGjBEOrYOFLKOOQF6EBMLIGBYSGGaSIVKA9TdUoFgYJQCooUHG5FtfOXD1fViV1JgbouWK zwEEVxvIccrWOu3MXB1UIp6A8JNQgnFHLhBDUGTE6wXSxVsSEWukKagf8X6bqo7oXgKcRULn4nDjgVUl KCWs4wWuyCnuTJvy7zndrQrcKP0k3o7peIPkRYNu5vVncKU9SQS53qV5wCb6 +Mm0mqk5lzo9hE53lr9+Pn6/8QAHwEAAwEBAQEBAQEBAQAAAAAAAAECAwQFBgcICQoL/ 4MFqLWTBvMRNCEOXOyZONGLJMI5WMYKNzHUKCLhNoFCCXxygPQdKbXLVOPMoiYELRSzMiROYzYLIeSvB XZl8ZdTOLhkBmmaNsF3Mga8WcHIQSUOKVpZY1QCQbkYPOtlPKZuX2cabtV6lUC8rMy3xeERsYcWrUnPq wOMkKyHpRomvvWfcxoajRzmryO8umn9fTn2mhFYrmoBzXkT5cHX8mqU2Pws3jYg5uty3Knt7xN01cv1 +Pn6/9oADAMBAAIRAxEAPwD+5DbLLCfkQGslXmWJe6AxlHyZjIo+xbQ8BZd/ xtiA4fBGNWBZRgob602DfbbYXEUBolybkeFnJoS4x6dQnvo7nOeuTPD7yNkfJbYq3steSWYdxDmnBZYS zGGsxTWuXL1UORLM +phlvd0Z1mtD7teq/QAFU2Gdyj3owH+u79zk5lbdIeMsJHL+WuFN0EVtVHCx6rA5XO48+ Le3xEUz9YfivYH2nRtURpFnVzOFNljcD3hxSmqn7MEvgyRlCJFQBxr+OfZqOtvpON6jHL5+ W4haMxDswpLqmPw+cuBYyNk5PAPKCCGiK84OF0ChGj4iggbP0/V0SbZB1I51feRoaz70/ Yy1qGRZIIWvGWzIwsBY15woBHBLKjsWNVUdTlBR4LiEwBzJxrg7QhULOR+E3xzopdkfZeCM/ LxbSBZxWGcZtOIVbDMNeBUr5Yqu/ lCkRcAN6dbOKo5x6N5xsjFOPX3L1AfU3OVclIXlZSQE8YVctVFX3L+O12hh8Ol+ rRq4sD3jnfV0P6z9yfWGnZazyTukRQVIeoNrkFHZBMNB7UFfGiBoj1BMH5jrMFs6z8r8YZUzTwT+ JrekD37ILH24XwbtOQCxTnQD71wmVcQ5FcAZyI34+ UnZucUkFCintFocmkwNFFDaF75ztAyPt2VteNvUscWGVGltIwo4fQFwJPrDyP8hbSsy0aU3hI/ f69V8hljHV9n+3S/z/ZrmQPmuIpORgkWLG0JslbY5ByXIAT4Kmj7qsiO4m/ 7l1PNipQ4CgWRGTeNIAcoRC+LChfrwfxyN1coLmBvYfpBhLxE5PCNj81hyBOwWXHc7RyapBvJS7+ ENz9dZUS3SfiImWaqnoeQMGrVetaXfzR8i6J6tphk73Ev46K7urOmH2Xdk8bavNpBWTfeBdlMxZrUYRL XBpBBr4OYgqOWCST9wpfXsSZgNoXL9ckHNzU5hrwm4SLjQmHUX2rfHiLpAFfTUIs2yMT21QAoWd1uPeA iw4YtNZbhwg6p7LtrnKscUBmAmku5EIIBgCf9FP0SF2lOJv2JGgjW3063KKbc5s4CUsrd3p7M3afRZwz KLVbI2WiYZ hKlAK2DrUctiVGswyWTPE6g7S0bO8iM8zEa5onBUi+7BXfQQ8kZT4dnHRvmfrI1ONxsprK+ JkqsRRIWaXKLlNOKpGHVXFWaoFbJitVaLuXtAx23SI9TEgORTpZUMLVFdmT1WDyhld5d0/ Zeb89s787sJJRek6hf1th87QvzTCddpv+aQnJZIiAwUsX+ GcmqLOioyHIHRxS0jQbJiI3FNCZ2wHSwnTUFE5tKzcenW276LwUYOWwkB9S/ ca7EWCJeNHSsgwuHGQghNiAo9iiHMrmhocExKiLkMTc0WZizCQcJfLKEGoaZXaJvJnva++2/ h8YbuNdNcL25654ss9R5DZoFERfghDCrU9OQQOpKAInze0kqsGhhHuLtztjejWJQCysNvtaBND+ YEkjyhk5+FDPdtRZEHJVOt1fZzgjvyIoXA3TpRs7Sd3jYJQVa85MFWoxsWe/ w8he8ofu9XsqV3SgOvSSgiPapVRzuP90L5khVzn7wog6A3kwM9tqt9/PonpoVWhVyyBN/ LXGuX4iaAh2Nn61QXBE6cJf6+ LIPKSbuoqCRTwSFotGTT5OJjSXrBUQXlitmijBXbNdRijN23EUTvWcwAQ6Vl7DfiGAsEACbIEadUAHm5 12PtDl4 +YY+UfjUBBreZCesgr3Xn5o73hCxBMd3i82D4/Lsu/ tjM3kGKndpbJjyPaimTeEeE6OI6t3XOO3L2FhWIw2skmz/ eTASAFWbuiVHPhW5jkTLpi6SZgpbdlR7jlhcQkDAPepPJF1UnaIYYzbiu38dKImZwCYzDJ170+ GG6EmI4A6WND2pxiwPlcgQHEkkkdBTHVterbn7+Tvfo9d/PyImle+ 2xDx41Wy5RD3RuRaUXfgNKFdWdSwBBqKE+3bSCyNpgFkUAZb4U+ 7hUNQJvnVZPCF9MDEOJ2EILDAkMqWKDJbPRj4s5f6AvqolIBD8sAiUaQGlJadE+ wyKHyqgMWkfDLcpXCxptcE/AXmvH9DzFmtT6Qc/k1ipktLENm5iggcEx+9eu202Z+ QFheN7p11rnjbD5Z3PVrdASJg9Hb6Vu1PaEOmrB0po3+Xy/2eN47TS+ zMTIkNH79m0TQUfzyiYnTnqEMOAnAHX30DyI5JBifzd5Py5CRsgloCdqdCGUUI1sqFwpnkTcfkjQewC/ dHOuKINQrQvCSD5JPYPuzJBMGEVjsA3ZwrYIOwyceXwdunc5jZ/ihkp3Rxrl5rH/ Z17cVumjuUmxuFW5xVsSV8lEvGfuwZhSTYINnWOzoLPHfJnSFDYr82lYOGYPpDDJxfXz7GGshwUFezHO C3C01Hds8ic3ntF0D8Kk +9B24UXj/ dhqYZQRjdMS84gOxWpSBuKnoafCnvI9mACN3KrHYvAaFNDucVzFNMGtRsJ91feTGAaElE4pF+ j0bjamTfuedlXQtTFOhpE0bqDYvlSJxyqCYiUiGP+KZy6hUqSVJ9MwXDi5SwpJnYnhjJMFv8IL3aI+ 2yGILcJO2X84kY6TKcpSQXJlDIKXlFcL7GIppNBRnUpbOrGimXdM7frXeOtCQSlYt2xVzUW+ 0C5YngNmC3TRoAIWK1NpoydOcx4k937gi1o4c/TZry/xsx8tQ5gaGkQPK1Vql4pLU/ ObMVbi4UhzvjMpRamGsfKNNTFDji/aAE6xLqE1KFMRamg7EZNETW9R7PSxV7Vb6hg3zx7qKPDkvRjS/ v66W0Q2Z+TTXjhtRgkK9fHhf9RMOdtUSG1wROmCqUDlWWBYCsqasGLZbhW4MJeIRDYTIv+m/wB/ fhqLGI3qv0g1gG0WMPiMInXQI+fbg+TfWOVE3tbF3MfsfrlCUylABZmEVv6TiNAXxtrEPDlm/ fjUyhJnqji5rSaRVqxYx4yDBmLWamVO0GfJrAZkRykE5rd0+ 0KXUYXeTnIQfZgpLMpOGEFcyapcMJsvvgnYfYeZKpZL7mL0ZzSGSCahNWscTezgq6m++p0N6732av+ fe7lQaDlfZbJdWY8B2Ne1t2dtL6Aed4pY0mZlalfaQy1KFbk+ Cci87II5UTiGlVxX6tT9TsWfvzgl4kCHlG60LKlpqZdSMTHg+PmrOUoycFeAh5sYQ1HqDqirReBP9tOL /MrXH4kLZ0XWPfSEFlJImKWv8swVpnl94BjwUgBB4tAb41G4n59ho7r6+ut9L+rnwQ8Iw1shcyxu/Cordelia +txh/MTwFKyZjNxrx7IJ8x8Sy31ZX6XCJVTYm94Ml32O+ SskV2IbLVWvoNTHfRKYn2XUTMTSPpM9CjEa4Qz1L2Kn1wLb/DviAEhmPh/XFyR0/ iZVclTkQgJZkDgIQAcBKEDwy1R3Kpg+GarZvt2hFMELpFpWEY3fgY+4NuBgVgqrg/ p5skuUf0PAnqomtwd1Uw7qbclxTWMh6re+d81zjdA4OUx8/sSTvjxmWpFVFNU6PMxuhk6FwFLKJWpnB/ WpOE52yAZ09Oz42llYSqd/fM0pF+ kLtJnOwWP8AQVUIU5XthyQmqvXZx21J6vvmFn92528a0ica0TUn9j2u0e6y+ D3juiAUJlPa5jDJsP7luIl2gpAAiigRrbMvBwRA74+ q9QyYWH7M5dV6si2yTv0heJ7jxhCTC2TdSrh0llQSI+uOfy5/Irs0V62s9ab01+ AqKpwSi40YLmp95ldMTXAZ92QwxztBOUKCKRBWEZIXFObo1/nz+lABgdcc+tFFFAIMAdABRRRQAUUUZ/ oz2G5yMGzJT5LanJ5gJPb3Ylqsm7NdrQkt6GaWPE6KDYDMCgFbjuVGrhcqRt1Y/ xQDG8IYaPi5Q5Fbqo2+z/xyC31i2XwpSH8ujfFQlkadGRravP4A06h+DZF9YktFbl79P72lElgs9gUV/ 5DommJw3FeL80I+dlldx10Y1CqNSMwu360BYW2lX6FWJjZ8+/ cm5L0iWhCgddHmN69BSsKaOR9q2r5HjXTKmnfIpxnhjI82u6IH05Y2nRd2XlpuIsD8qsr0IeXSN2N/Lr / CDfgWcXLpQ0s5xSUzinFguUMu7h00GYDI2vabuYMo5HlMmBYhuRQUwGlGAasFsqpOsx5u9uO2soRfJw6 JhsKyc3HbMyj10wMA +7KlX/9mZQHPDvcya96IJt4g4cyIlkP7Avp5HlhaRNXsbVG9Ky3xH3nV/QC4ovaTD5Q+PecD3zs/ wBbeXby+Ol29UmmPFfixR4e5kh754ycQgTrr0B/ LDilBxRwtnizAWwCrxD3Cwks9nv3hmleTFyBRqfUAYHlku4ulXINYEHI6TWF9KL9wpItg2CjGLN8mAqk iDnaIJeCI37G3mBoleoyYFPnkj7LgOAG0qzj3uAquzGgAc3G1iTjkUs9lYXMp1FgrZ6WVNubmDrIqVAs ALITGKfL9r3C2yaw +bPOjSjZGShUL8hx06zLhtAZmXi6GHHNqDYlfXyvlXMZC2ziHP6xo7sX07p+ht4QqyOFd+ y7eEE8cSCB3tr7b2YczJld8l457WWYK1JuaK+ pKHb9czXAdc697B8dmNFGVga7mzFZKHaZDgZvTB0ePRKBAOte2hr4mohugOMQoXtvAULFTmxYMbs1bW+ honefcfswtMdBTvWU08YgqYRb1ssccpbggkptnUjZhXmarR6O7kDqjmHmll0sfLksgxTgCRd6I2NOzpn m /Zcpx7OpIkdcHeGwlHgZDbjuqdAGiT/yaqu3zAOb0p3uDRrRTP7yj2EAnyw3JvTIbmt2sLc5E/ NsysBLpX88qa98zg379d48Ee+TYQnrZCsQf3XccoHnsqDgI/ SXefBI1UUJ97Yf0V5pMdiitbVQnamD5q2WY67Y6UK3Tz224AvBz40msjvyibHpoukISenc27ostlwxQe 0btsXLKy +q2VydMPwT+q4IMdlqu3VEOPLSLXW8ZZWNaOYt2LJX4mWlYFCD0lcnm1X8qPtR4Pc2zzWdXlYo1ANPXG + KOKrVOPuKonQPOm8O2bOhMlDmoo6Qc6Eqo2l716ciQ2A8jfcsh9mBlzokahBguG468W62ClV44TU4C26 nfiUCnUoTzdHk6HgHhD1wC1ONzVOimwFQHk6KaIPx14kzibiiU8xssI + 7IWuDwuZXKB9Bpvyx3wJntrt0veKXqaOPFfaO6bltozplZYMuCSueSSwlfX8eSFOLoVDL1KOQWwceVwF fK /RFjZtea1cPCBG4YyT7o1I8pgWNcoNzjPLZJxUHvP0ouxraSOHnbPU9tqI+vL3V7/ D1smceTUyPImsF8ViL/ G0HVBj0L6Eq8PdredUMXgtHpUFrDf0pzmhxIRvgpa9L7zzNeXElLyuDmHQQurWAPmV5fzNcv9k+ IHApd0eu8I7CDiXlnaPBRPGV3hL2srqTVBWNdqBeyzGmHy3Gsot/GuUQesen5RVLUuQo+ uyNmikGgX4kjPd3JXdrHIUbaKKrbDIpLw7IRcSxV+ KK05Gk62ZcYuyzdWcxtiqzzrbLmy10I9kiUiYWuLkxXeWh2gYi9fXnylfJ+h9Ko27U1/ O4EkTg7wbdyCVmZuFWO9yurHIqbHZqJ5uZjp1kdf7tuAH0elmpFlsIsWPR4Q3TAMXFpeE4aWVPgAifwI ArcL233E0smYvB3qDCLu +DXAgdXr1ryIZED1UGlRH0zsQbqIFrwmJNGZnqiBg9Jk/Oprh5MCx/ gS1kvk2ELSSLkq161JpvCtuo6dV9huGH+WQAG6rtVzidTh9F0m+ KPTnWLVs2rlhk5kiCxAxcBuYc0XmZntZLYgL5S0KDGwIUbMKviTEYNTADUkMAev5E6Yd6pE386uuv7CU 18OpxlyppKzs +npd31/ Xkv2JNEipju8sDgUlp5WLrFrQZ0xpbS3pI8OMb76iirrYYNXuIRuUZj1THguhjpWEOvvZoXMAikZ2hab BcfvWlPC2M7uMfGtGa1ktY8azYtF0PLJQv7zK98o6nEmrs5Ds8iya +530+dd8yGxYuSGfrzWNpKwFPc+hP6lHmQpQu51cZHu+cE9MH8d0jN8vaeJAQlT74eRBSBEa1D/ 071BzczvftZORvGX1Av0h9h0sgO0fsgA8fWJyUr01Heh02zm47Y1zh5XgYurieJBCxFVODITJhpENR6E Hay7fGeZbLfJD6N +3T5XgOjgzsz+R3/wD196+P9F+Hw5o1wOtTox/ QVRR9LrP5yfkjXbIawlHA2rlEUjR6rfB1DAjDChzHN4WOTykcxsh8A1l3sY6808JdtyLOVBAX5RzfOk4 uLyKWec +OC1IzvHl0BXBuXq8jdq0tlsUyzzsooz969Lp5I97HY8wrgiukgmi25/w9vNo+r7eB64O0e7+ g8150muGTzrvFzqN8upjFUigCN4BG7oOMZLDKvpLhuSjwd9kmH171IzasFuWzK6FPppvINJpdBBSLv6t +VkU2kkqtSeKhfUyEnvq4lEzeopJUgWlG0hOfHhqbuFUsLKKO86sJsH5zi388rGoKs0Hs0f68y663r+ vbW/m07Pg8CuOFc4bdM2INvoCL+ 2DaMYawhzhexLMZl5WHXrqIqaNmBIt8V2ODRUuUNoyOxifFDUPmxQju7rokzFX6KO3auMP5zPw6qKqBZ +w3DWPFDZxGTBEfB7OVwm1WRPyK5hgSC0NL+zefE3dqCJEW5arqwLOheLrtyGe08/d5/ whaaJ1AhETyg7vmH6iq0+5ILfX6zmkdgpQMlHkMv7OK54wcB+ SXrW4WkRsybkvn6EJbcUMpJcpQOFaPomSkBBBcuSeDyvARiVGYb1G3rcpJ8pzcJl5XVjLykbGQblwYAc Guc6YGoomlbNANbnGQUSJI6iEdJtSF +ELHujqxdi2xSjjwfoWViPsdu3jC9YPpKJ5160buvXDHariGOg6nO6FvrVa64ShNjjREJLSRqziP+ IxbHxnbKDLBsqP9pEHwQdDA7sxRUrQAzNjDySB8RrjjKnCkXsgwCXQBxTaAKIXpevqXPAAMJZMEPzkGS TUj7BcbzoF7rjAMlv /8PiMXmv9I8J3t1yt/rbQLp7Ctdz6Iv+PbS+ 9zptoXZxrZxbnD0tD45jUjbTa7iMOHvDodhYUSXajQoEXZSv6/H7ZvXTqA2CFOEPIIBI68jXvQk6V/ bEXwfRPndPOICtpmjWHTiVQ1DiwBxHMLcc+2u+dyv7yw6XKt1j9N5nm1by4WO3Ylam7MsCrzDbV+ AYWV6wF8E3960oc/16fHHQsYZmj99oNg5x05V47c7d/V9hidykWOgXTqjjouBgq2D+ a0fwGWV7FfOUfhvosmGm487Xnvezkm6l0EQEdxX8Ulnmcjoiu6jOAMP4XGh0KaMa3U62FMqwwWSh4Ew6 tLzLZyHOWgQuSKAZ7yWO9a1 +LyOOxm6zRHk+VeSpArNqKzTvhKZDCZC9ga60/G9QCSkQGX+WwIe0zhu+y4nJo0XAy7Tpq9/UaI5mHL1 /n/QPFllFdP5K4OuKtpUx3Zy0B8O2azIbYSXSITFL7NeZGAYYaFiJzR+ Re8zA22Yo7xJ50hNvH1LCgrvsudo7Lad1zBpfyWsfW8hTkijaqMZoDL84QhK2P96D0fVdTgDcxNacW+ o9keB9a24YqONQLZ51J60qoKRCVbGWMJFRCE5LQI7SCDlXmt70x6lV0mlw1yWT2bs5z01XLfSC1z87KA tun66 /nOp4qe81OPkC4OGaUGhZd2njUt6FWh1T/h7/rH9MczsZk6ty+K8RVR8m/NhcOa1E0PzytQGFR+vI/ Xhv4VoCo0htnM11+JsQgq0EeNbM5fPNhv+fkpf36BFFsoYXAgjJeZ1WgDTn343qIqPY5iv4589/ qxtPuhM1r1wPTS3uEiMu9miIvvBSwft+M/YpEpbN5eyL+I5/J9xIhUuXk7CeKe2bkc884H3Gpy/ bBrcBYVvBdr7VhGP3vo685Tk721W1vcv3fSsMd/5t7+FwZyjkUWznAhj9z15IHaYVCAftLu0YWz4+/ DlLa35Ey7KDHI1dodu7aiykd0/VhprXv02p4Pgripca/j07/9cQPIHwzQn5+qXSUBF2ZVNGGpwwZ+ RXKvP73/TTdx9kipRg2caSOfpkZjLAYv+FNyLMvI5ydwD/ ucPXelYJ3eqZgSEtkgOfmjFYRD2brXXFc0qQbnIUJdlsAnSjni2A0pZDaKeND4xEO0/ dEYhMDNvAYjPJKNt+7kZIalLRJAjMWIyLYAgh8ZWBa3d+l7J+CP71hZaT/FYNjc81xk+ fKFRh40nPCy1BKwlCZSLQXmuLPbbpwJvWAaFRaXseS01GpvSs/ 9uzKQbaZLmHaRcxY7OLJkR8uWZQp1TmAHk2gS5AAtBFXzAKKb0NAcCLc37X0LCh2NLIB6Q5m02qkbb92 3syU7DFunAgvyXPavJ /Rvdp2/8a8uOeqC7VqQ+svp of digital+ N2vz60LItVBmSkRDsHRzpYEVBYHOV5PhWQWH1l1TbFkluzQvrjiQyOpAnXHdmLi0hgSmnKfri8EIrfuf Dg6Rcrk2oZnguq /B0KiPNgapvis2amYLJU9JqlaAkMCkbBHqZetlCCISEiXGGphwOGCZ6Hu2guXZCmnvFQ47/Fb+V739f+ HKoQd6Sgc30h9L0mbcgZisYvGs+ xzvAa47wzFhTWSNDAUmMZOLXijbruiKwj19pP34roW2JByAtIQGp4RPRXGKj6vz52uGJSt9i+ bT130LrXK3YQYW0ZcPYjQuFzlvqQtkb1xKNcBEkiEYWqcmFFHnreepBCCFEBqVaNEcFMq1jp5LYxIgVz 6dhwbn5z7zmHz0HlviZ08v5eau8Twkh0qPZ05SMY9JttgrytwD8vAQCWFs /kQqeoiAQeCEsl3xRrDaLCDc94RFZtwWhYxm+eIAkRGiWbCuwBJdXBQqVBVi+E/ bNyQ1FZjgCT3DxjQQbK9WoFbrpYSbxiUSLbK1EA9UdV3S8KAdmFjEYPosI2LLWfp13qNZ0yklkXXehww p +Stu1Lr9Be+ MFWFuW4T4DiVB4BnYjxxUORXwus8hFNEx9lsORgIykaNTEPLC3XA11XvRJuLi7ZmQRSINRWMts45sbS5 Ybz5npuMKIMbHQIkxQUhfDsOvAUdluIc14i9zUcerHNgxZVsSt6GEUVotHXhq1Jg6Z83zT3mlY91Qokp L5Kae65shngqirKjC wlerkuogaJUaauFTDPGOfWVSgAXeSTZDDjerUMyO89EeqwfvxCBUUa9TvfdRzDvzjtLiaA9ogioG52Em 9OD2CYwzVnbf0OdCthO3 bVLZ7EGm0fYqf/W4ZRgVExtdeGUl5MORexECfNguD7jZ85E9B8u65+g9J80qO7HBppgE5DS+ 0q1ywhxyUXcAwUoJYnRLJIe4oECouCRY5EGh8ZmrzT2U6JvOWUIwSbEEBHn0zO3FE8MFNbI9JIj7jh2c D5MLoNlEeEQROFjHAPsIFfWNNTqH2FWsED9Lx1OHXRhZpzOeRQIdku +W4FZMv2vfYFb7yokylEa1G/DhfVZYl47BkwPxj22/ OOxSClJLKyRvzwJCnULHTCsY6upaW24HXJBdrjR+ IaFZ2GFaQcOg1tXw3ZNJOI2JKRNU3VShzVkEXEGvSdzPWtLfjkLrUhDZAY5ipzGCP14ruqyGA8ikgkRe bnQRq9Ksw +upLj7t+Z2b/ uv25uyk0IyaU84N5NQRnM1PERTtXSKIGSLTKUyfpEhE3njRhT8USP2jYld8YJTSAHhayzovWZb2jtJFn 0PPA64 /k51BWkKDXaMC35O9elLq7m7bJWQdB7EjH/KDMkhtkDTrDm7WwMj6qy68fu+1tH+wm2xTNLyg6cy/ RN910hcSwBrXXWY6bGdpZUGjByQkdeSVRHUxZCgXGLjv9CNTVRpZYRuquxRyLpEDSjpd8UNUoylRhb4j 1hmOd5bXO6TZKXbTJSUfN9SxsdjN7XOJzkLg8LM +WVgW5ki4USYuzkJHW6AjEgoOrZqp1VO4MLywoGfo8/t5Qa5QJ84o066B79+ l75GepNIuOGwMSgZf9NKev2EI7XMxVJdH6GAQ6t4U1Xtj0E4sjCcXGGoRz26djYLqpbSqGNjmvqHvOQ3 ySNl + 71jJOU7TBWTlxGakXmXBHsRzQWDcSWDfafswRCKlJb0hG3WAPEUOU45DsLbJ6qGiwodjpmk8eke721Tq 56v /RJD6f0w5f7+u/lYIeEunaXQZeQGM3V2om9ERlRZcpB7VB0jSYbBkRQA5GIU94djVVcRQLt/ 46A8rAYUXRZLUHt7cM2+ 7MgXF5FoRVVnpWCGYeDOu3RDtymM1PrtZzcdC5QGHHOOJUy57alPJZEjthhKBKJrAinJNDQCnmEirXvn HSmwHYTcf0cCA45h3I4ez0Ja9 + c8mtTiqbaGCPsLaz8SUhQVQGxmu1COEvZEliHmB8aHMefEHUZuRtEVocCWKXgYfoke6AydUrNN0KrHOC PpzM3kGBFSf6WlUGEiM52KeBavfQHcdnyRSRwKn +NcnvfFdHosG6L4TtzsLgGiOxb1IZ6CjGx0SxuzxXn57i+qd3+hMSot3BOEI1ay+ i5b894ZP3ECiFwdSjLyhGQ5AaNgWerzh2dhNWZaASq32ahSrcgpNoPi9pASmIHYKZNkSZDmzPp4IpqKH wO + LQgc3mqoBepKCzLYZvLktpo8RSYihCSC9NHuBbdCcOaXq7gSztzNJ8Ia5iUvspNn1m8KxHDgFXyofHKa WJYp8sixI0 /sqo3mk6F9nZ+/9VdiD46N/JU4z9Amd7XDjxCxav2N0I4DTJlfGYXCOCVNOkhSvMt0cpKI6B5bLx1TL/ dVExhuZsVKqobqqSVf9V4gN56+ OPk3juSkTH048OEzn9GUrPjaHwObN3JIfCIvppFi8qJP85LpNMBvSssCd8cmskgC9hAUkps4l60DJ4Mr l16 /8DS/ R9g9hAg3Zs7r7468ls7XX9PEsoxwti8SvlBaRhDFqz1aFOiYSRethkY0cVCl2pSUKHyw2FcJmziipfmd 5 ++UYaNkSoKv0JKayFqMaA7QtUArxb4tmVuCK+ 4JEcLzKCwLJoeL1TI60NOee1qrSEYd4NB8roRcUlxEpZDUEhoUDcU4A9a1FCCKBjcdkqoyp8g+ q9PxGsm/TLb92q46LlnBXm17NYap5YlIBxHddKKmCBAeCNrba1RJUDEH/Ls7MGWTq+ SzKXRibAV9P9BFfFdpEJbjMA7WhvgUJCGqxT3M5yilfHJyyOU7FSNHWMPSZe1T5Kx0ElYfEVaCEPxc3L 2MOHcrsYU8DJK3nDbRhGB5XraMXVq238DpVVsuq9ehPf +pt6aKy+kfok7V78oKv5tMm+EgWiscDz1z4roPxLxiLY1y1TzNSIgqmrZmLzGCA/ cEP80laTQorgQmZCL1rVJw+ O5aY7WB1IibHtnZ5cLBC9kPJcGTkobH83msZJ20jItDOLL6sRteTFwwgBmKzjEP4YAWaWw/4JgTpd/ ZTzthrQYwTrdnVdkHCxKUq9d3jhudtZFkXJOpCcY/3fjbR/ii7oMd3mogkogmjAw9p4d/ xNqM3K25A6FahDHQWKAU5Mg8S8nPgxdP62LR728hhl6O0LWeeGp+ XDRPVYgoX7jcLQuhTIJ0m2fGnttE1yENUVgeTI/U+y3740bk4jt9N5AeEVT1f25lY2XF1L7YsILOL4Qh /AI4xkHd+vl+o5W6ck+nWbzTMd1a/PB3ynmNitj/ jvihFUPVPH54QVjyttr9GHN9tt5oAgOM9Dx5gOwxtRG350E9J2a4o5Za4Ia2fz54270m3qCK2dza2rDP Od4saYJhKWqB +R+t9VCXBwro5IPPVSOVCVPOGOZWClDWDDtjbbhBAaafLKBtnQKIdejPlcvQRSblyoW3QDYAk8nm0/ MnAkal3YdmJ/wAMc+/FMdsAnHc/dnF0H7S75KYQD2UAEZZ6BjanG0R0qIMDlUapijYfxQB6xb6/ l5LFpm3SFj2Wxy/59e1yz+BH1x/ByghAUylDS5qzvR3feCUY6iyyE1/ C07a1ohOiOP4y14Wr44g252JtcPZ7mRJ8gzz2w9JJWDXn20k11ic9EGkUzbhzobNwKP6jFRHrTm98Dxu OzrQXgPs2nhxWHcvsUUNKWAG +1pojprc5J4w+xYN46KfNTvpYnbWC07l67/1BfOszggX3pfdy/W+5JI1+buMRfZjZ4/ lhicltl6xaanOZm9xeCIQEBPG4e7CwJ6nm7/X8vGYVRFWBDBYwtJFLxZc3QU5yEQwpVaegbY2bs+ 4SItcLEaNIgSd2CTOpVewojo2TzcuwAeW5Mrto+f8AX+XQOa+lasfhW59y/GxqnI3MD4V2f/ NdRrenKxQbfMjuZipvYnvfycIR2NqyOudsqjGQS2iZYZVPGklCuYm8yDhDqC7i5Uo0C5ug3YtyCDrrFN 8xyUDugyWMvhjvoRr2XtsRiT8wWDregEyCXK61betn85MG26W404C2Atf9M66yFb1 ++9vnscbqV/rX/OYPOZJBq40HW+ QHcC1v3Oh8zJTkPHVIlRcvmRJcvTw9TqVY6l0idvtZUY27ughfYs61BAMXizsbhSgGcMsuXNYyC14kIB UqDys4TM +ze9IXQUtfLN7FRAJPngLa2tRIiB0MPxhnyEuHmGglB3ioaCWhueoJXavl9d47mgx+c1xcJ5+nQbiVc+ WuwKkzOzRkrCyjYVbdl/RftYqWNi5d+m666Na/j/ U3IP4yy7WO9uzvdBfYBqgwwWVroTWSeDQYwuRGp2BdobF7TCNeJtZp0k9C2Zegotq3lfJGYRMQywxFPj kHxBFx5FsmOk1lRdgwDv375XrA0eFvqlF7XTtZjV2giYKJISfNQFkoohuK9hohksIwwI +ASPUOmyxwHrYRkpxE3mqhv929BX8yjI5qmrD/XRhhhGVr7YgTXOMgGkYcterhSd4/ 4gra852AuDyz2ha/jyV18cpp/ E2ghpryS4v15Vk9tASxPFqfLtzUrGoIACLyCXdNypBPx21WxSpp2IaMp5xdyRRveeFUL8rnXRJ3VZZCS bdLIcyOEIB /zNhLXBk2Y/c9rc6os7OhfwpSUAfoSha5kb8ttnXZ9agp9Vpg1vDI4eUuUl8zMRno38+ 7eTFBZ0uaDl9rcQ6tOikAR1R3ldtScGHP0BBUYmgHbIvjwiaUpiiekQjh701oh4eAasyIe1u/AJtbXV+ 9+mmltSrM+sCqG4azRTHAOn7DRgBrsBUBbsg6NDLVlDFCTJ3XrG12X8EMLqgFq+ y8K4uB9fE9qH1T1jPDVIUfLHIyKQuLLnhE8kJ4Z0gJ1CBGqR8rAUwp/ mvxn8bSaKPcBIkx94VBbE6khPkBdlAYM7DITweY4PWHpNqMLETUb2MJeJgT9GNipWkjyutrMXyzSd6Gl RK4ablQY6ahar1q /rm4zRqiC3Pzsb4JN/oxwhh61ZVBvkvztqvwON4qKP2ilyd+ 8BH5fZEoYfZzXntZTUlz3WnDCgZi76xpqV6Ou2J2kofx0e0vmsMCOPpESHYCuBCNylijEKXYCvfln7bL d2l /x0x2mc7b/pEdXt98T8VvbjrstiumIRFIzXWtwhV4r2xZLz5FBw5N2Xgr601tgLFaC/ xOH84nRTCZHAckIua6T4yoGc4wgfEbHFyaGYFBF5XMiCCjZn7FgyZdKyQvB40k5gf/ ZiSLoP2523Ddce52e7/mVdb8X+NakeNicuEunlNYmqkkx8hKk0ZmjN36W2rF9GEXMeBTCvjkkqrDRPQa /Vga0xBqp1YYYzVoJS5sopc0NPczI+ ZTKFFZCWf1i44EwbakjAucNjehvwoPqoMxtZTvroOQHwJXWgrV8uHGMAp8mVHUsI7n/ Unc0xQC1K3slmZwgUp8LFqaH8tnilLa6OcrH5kXNIbZJbSWNuIrb2JA2oWLXntv8ts20Tc+vITB2Pk9+ m/YVscBre6J6Y+7ud1eT599Cis+paUWuHm+20NMbXHBife8Qd7DZQzRhAtk8jnJiAC0qwWOGtv6eX+ AwNQCir1RtifpHxSB11PibXiGQTgz6ypZwX4reFxH8iT7LIOhC4Xu127Gr5tpMLAcTb6WmC6lDUiWbDP iSTkcExO8nJG5tnDRR +YwfCqpaDni49FC3rmlzpXZnhNzbha5E7Pjn4u9E7RzdUZYu5wMiwtdPDHyRokYwbAmrvQviW706Oh/ Eh91dgj0wg5Wd9cxI612Ln8jjOb4IyA3FW2MkBtH7Uq4bKsXGlAbHGb8D1pZBIQAOr5r2hEQMUXCNUXW W0ceC9jr1My3q2f9F7ulJ9 /J8zcFmd8JFRwl5fUlrczjL/wtZNU5wPAnvBZcSfMGiyLo/ E933XVSvuK7k5a0BkbM9xDcoCVd5alRt9GRuwfUugwdKMuZP8z8txyqIzkRb4wDaZ3u/ QlCUt2FGn5kAhl6PZ22Y3Iepx0yPHIbHmTniVDcDkI4kPy4+8DbQn7Jm8acv+i/C+ kqgzPP9aON9n2mv1w3Xx5310Dl+0jpzpzadfz3ikD4dHlhW3CubxnOFFYUXOT+ AZoEbG4sAnBnwKp02GLxpVt5GzQF4PXguOMRDUPPEmbcWqxxjS3IVXMrKS76ul4xeQrfP+ u8jgsgE20iHqEL3yxGsEGdpe5JFe4lLzPqS37BA5fMurJKmZVXxE8qGIJTMg2E/ kMGnPRDQZ7xerSiYdr9V/ qk93OTs5WdApCfZZzyKxDHdeZlKpiF11OVaYLR3pxBJMn2Nyv0z4qzw5jtxyxo9+xy/ HoL8yRze9g005s/Jl50xe1tci7txd6soXC1HGUJZZWMOF0Jh7mYTkTELFLI0Vnc4gjcM+9+ PxIAjhFr8dRY5skgo5wZk9gFU50/66atud3clskA41pUzdCX1lGbcFHSQ0F+ AYDwz8miplijOVuhtbWu4fHQrK4HKDTVsAa4iMJ7SGRZsxtvP+ PDn5ZtVsqMqh0srktU4EcitCA8XfrxOjM65upXS2YTudRVI6KTKknkpe8uWdI/C018/ JI33EmkQnvi6onHLXi1jyq2uxq6kW6m54nd6rm4jWQ47uhpyjdSXxaE/ hBtidYLzDbUSfpJyBiNXNlAnrY0NkmXrWz/ LzEzayqapPg5dS1ODDzYtTxAn9kPZnMZExLjU6emcohTIU/cE92zNJw+ 95zdGRTPtaicL7T38SyB7aOzz3sRmKTSAHNOL5lMvixq5H+ zsQge6q8xCPXxyBbIypUJ9ZrokIXKNVFXatEGDQLDKqT1IUQtte7z8qbDf75Sgo4B3/ Q319q1Anxp47jo38hFImoMeqLw07wJi5wcivTHZAmruIgrBrGfUxGjiDIsSEDOlMzxfOxTK5DANmK7nq 6z0zrPmzskZK5m +s3aZJsmNcDIDMOSCmyH3n16befbE7xITDm1+ fzctoCRxyYBf85DduPYJ3gLMnIbNGIXcIr1TaCJhtjhxdLpf5DFfiE2okqsN67RYy6cCHixWyVKeF80Z B2BIdjpQwPME7wfdSDEtSB9crenQZEtd5AEAU99owu0522WOYuoz5ARUs9nlVGeq +WWy1lSzjH4+ 1naZFt7A8AgzBj4BlxAFWK9GSLTE35vAgXvt2njmz819jw8vwPS8erXqgmOtmSKK41T06w2uHESTxGEC lAyPcraCyuqNm5OkNEff1RuC4kaG65DZUBFsNr /BEEB7SqXqL2XDuVaxcRLOUtvp/ 4AnAI9c59p4c1jmYmrHwugEex8CHQdrqJdtmHapQrmULx9kWEzugexsuiqvOuTzl4BfWSKp94DH63dpc uwvc5QTEHhZoX6SuvCnZB6zNkBftTW9zAyDDgFEmiSTTx366WGCAyUcuxQHQcEno2Zofkcx +JJ/ GWkBem1sly6ofUggoDbbjTCaNTf1LsW3nb8sPVC7LLuy8J8SUDWnzAGlcBe5VykkbZS8KjJoodzrKCk2 jx0pLSB6Ir8XOWUlRL0ICuKZ8krJFfeDZyGGJRtCBJk2G4evyYXzPFRDRap6LP +dLDrfrtl47/4qK6cIKe26fncmjelJhcdcxIz0iutGSIgWa0eLbulW3i7oZd2JNnuVYQoh5fdIBL8oS/ OljdBBgp3u5GfZZ4ozkKvMFR92HJ010K13NzWHNquo3JdZ0J4SFD5bNqgfDSbxW2LRGFtFdHzJ8C5/ usMgAirXUe/VZsbAQc54J+NQKeSi75V+IRbeGih2oa53Kn/AF8+v/1+ XsOuIBDisgS2iD2Vv9uHhCRQEIVpWYTD+N/Ff/Yoseph+ iPvEyw2kZUDf9dd2TrDwhpQqrfgK1PlMBouphs1jyH0gwTDvLNIwg8jCSzTvYnfkmGjb6H7TuwAFgkTE HNk6UqeYqOZJHpkTvScr6Bsw345P5pNfefevAgfpsFEhjd1o4uIlYfFx4lwlqGYiiROgEFB6BWG5IS3v J2xuo5TnW5zNhDFtcSKrhqs9rxB08FuwafXENe2MokGTpP0oGPJyFiV0p6k /zp+Uzu5223lqoXFkdgNKkcsQ/ zSS5HZzbRGB2n9YlN6ncVrV29kjeWvzKFwCcdRCpg5Q4hahndBvV2K3svtcJsa1yzZ3347mxMz6KQ/ ufOEWIRCFFN7tEXooNYcNBO97RbdUM563O32+TtxWssDPzh6gWouGgk8q301v1vUKZyF5soacLs/ DjUm3qJRVJmoDiM7hkD+NHpSykBOKWj62H2bDCm0K3Z7EqCm0P/ DswdYpSic4PNvg0mp9zBdhmlfHl3GrQZTTz29XceFTNhwpdQlfL44K1CbhfgQj7k+ 9riyiNVIUYusoVgTB2xcMGMSnOcXtzE0X+ Ikai9MynOOYA0wikK0GhsgXbyUSQLMZves5bQu40WExGnAH5xDPKJQitleSxpj/ iDfIBwkClIZ0xWfjh1IOwXM0gzOY7dzpEiHz20G/k6vWBTdnUB0mwqoB9goGVrfSbW+ F60CJs4VMSzM8gasHFQyc3bf4GkDx2W9ycnOTjIqX1244tje+ heZXoyadv1KG5SoMje8S3sPPtpvfZmX8HwGDIVXutYWVtb38/ nehqh2T5Fpk861A6o6SLmhorf9speZBOYCP70MVc6zRGvjaNZiUVCxOOToNh5GMDMDnE3NJTrFtoNqyG PU2XXQueFSEDfKR3SKBpX3Rtjd89FHBXL1Ve0BVBPx8GiqsK1gWxBbBVLlW7oV64pXNXtkvS8GYLRC +wBzPa562elBcwJMXR1+jozZRYLOyoZ4QWKZV3t2cYDLUeb1W/mKwbmmzbPG4NmO/LH8/ K6eJJMqf2uyg+lpwYza7A44kF/LuuZHG7V/M/ aGFuzh9hWWBn4YrFlPhJZvOUhGEOT09Eh3sV32EJj5LU0qmNXukcQvihycctGZYPH3zqAVRyBwaDib4F +bBcQdkZy9BC4YEQ6DNiWVN7/NJsEEJS9WV9QI0lc84TDLRZFye+76wi8jPn3Doi3+ c28at41sj2xAyZpxg6x4+/ BZsTogNzOLWMF7WxpNlshlCYwxvncQwrtjgJtBrZOKvipY9YmwlP7LCkuOMNlAwVH7zxebftSJjuYQ3M 4zlNzDLA +XSENALaQBKMXu8ZPDNENcfsCK0ac+4qBXCt3a87LoM3VPUp0t9T4p1t5V6g5LuygIoVSyEUV+v4L1/ vaIGytTdEWVsnioYiIWNX8H1eJafoEwUdwD8VI7l0zyUWf4gafL3kxSs3R1WH2L1XpIe3J5JFIw2y8XO lwFZZMlsBSCxB +8JlGBmQYi5p5DEJilEVrIxS+ VlMF2aj996oZHFezUA3LARZTpzY9gdPfl063M2NN1x0oO3dVKnufKrTW6pjjp6tLvxnSUwMmfq0hCtna 7kViZhfRBg8dwQOiBbPGkdQjYjtNAzmYD0RCsme /VZ9ZDBDSSDiWvfcayWcokiMp1yMhqTCZnRZpDPCAhVMCfWSN6m+7ODHI+0xLCzWOeOzv44468vR+ Yki7RuY4AyC76Q+vkPOE6eNo17es07y1g2vBvKNq/ 4Oxxrmne5e0wK6L8pg76TBIbLsZaYkzqVRtmY0ep/Jgl9+ 0wuCN0ehHtPfVCuSGM9NEG4TfBYEBYQVY3LIBP+DfZSOi3mCdMVStOO/Ilkri17UXxkM+ Ibb0iu74WlMaJcmUEybCYBir2GivWN7pFuEPVVcZfL3OhuFep0xwgt98Wa5FohnOKbxeqoisqpmmhujE jEi3qzEGZwRFs83iOCWVdwcUxnoFpkSLfOMihgKDAb6osKOxyDjQllgUQpSoIijVQGUQtIbLecdQK1Z3 98rEMzHAGSVJwgOBuXadpQqACCuFQFeFKlW orZNMtLFBthYJ0ApIifqTyenyMRHN8QHMnt4hZjk5a4i0eqp7ah231atjtlj92igsmB97/ 5T7KunGF4dkMZwYNBXSIHTfpk5/wBUHPz/ YNVLG7zzDfvjESHXihGz8iQ0eRg2JrRl0sQgE9amfiMEqnAWxHHpEsoNkZEhWDTLr/ DlXMG6azSyjy8YUSb2kLqFPBNMrdtCPq0VWnTPJsueX5QMey88ya49MC/Q4vajtpdu41i/ R5qJ35O8S5f6UZAA8dRNVnY12T58DcuAMXEnACVk7qWPOqe1HqzqueQkGV8TsrugZYJz65DRTV4YIJoS AzWPqzX01JnlJRUISVDP8QSBUJmS7TxPYkTLyvfy6qgly0B3r /p0zdsIWak+l3VWtba4cw8NHyRJSPoACK6DihUP3rIqm06niCxrbJ6Qq8JVGMUDn+ kTxAbPn5QipUOhlQhlUzrkY80Kc1Rn2U6LCZWVpxYV0YX3CkMy3UUADeAsP0w4KeQNiYS5RyAxBL/ a8ejsdmTKtbuy/fP4h398/ kODGUFlTPOttlR4y0FLXgk6IKydUvFjnxcAFCW4SdigAV8mGInBY0VBSaGPpGcRlgJpkJQOKGXS7ZnaN ZUB1UVsSiO836HvYMzYOxRHY93dEmvajEbtOs5Sn5lmcxg7Hub5HCMVW5hr1B +afk+f8sKDLNKPUShaCbLDLcDXMmgDEspiCbjMgdJWL/oUAs9qGFicFZTLwuYPZTs+9YB6Ers/ AKvdgyXG/mE6WfWxXrUv10maHK1q0WPZafuiLnZEAIHwnJrtV9TNA0gPifjhEDCpsQBDOP/ Zuf9dBO9rFdnjmml+k34Ga6df3xq73/ aig7h3KcxOJ1XZBDJJVixUAS0wHKW0S42T4jqKaomfx7E9ebjkzGVCqi6OxDNnTId8OG0JKcYkFgsYK/ MTOUoaUYAqUPrZ0QqTEfo+ GK0uGEJlGFEHhCQKtvmEVTgACvGBPoEckJ6ASREJsXVky0pFeRDpO9p987Eoh619EY/lr1/ lL0qlAr0rkkl3gp1WFQ6eyZLTWTMCeSWG8G2buPNgWIvBaRuhSAEKXjvR1MRg5QVCqXBpqyE0aEa3Mtp q15xTVe7LbBpwZbYlDcoOWHK9HNygFJMqXmNNr7Ib +LHRV2Lap1cFP88uib5Bmmg1cVWRy9R0Dg0PMbQuIPAgwwAEj5rym1C9zCuzqpJY4cR0k/4P1Wmi+ vjLshl8FywGtxtKWnOhKPZHIIMGvnAjyTpSXmURNpP3UUlhnVCSTC54CBXNDxGZrp1UPZZMIAb13Ok05 7TaK64XhRURX +8UMQlF5DdCdDQNNnL9FCRLKu0l1QKANlJtSiVOiYaMRseMjfUwoWhQGT5cFbuAGbPk9rns25++tra/ GeWdO307Vmg+ 5092hEofSnPgzc1mkKwolspi6zZXG3LJNExn3Pz09t0FK9tS8SxPvYeFQFIZGVOMHDdzwFPIC9m3OHNh nBpPLWA4hLKzTJ5Xtf1ckJgjCRSYFUqgwo7SJipEdG /KEblr/qcph7D7CQqmQInPGUlSHa2Bg9OF+ BQNGt8pSosOlfN718y7piUvAextw580ai6s97RZi02Pba4xNGAcoyNHbyiLpGkEUYPSzomvzjq6uNMfo nr0zznZpTD6jExYu /izNM9lToJjSCDUNHv+ 4gCeOMRIQhMVHpTmILbDmWqxKvvdVQgiMIXnhfWr6Wbz4klrvzWKlbPVaQWRAjCwgT5enUKPI3XxNYtA /JEbqC+9rGYimn725sk2g7/G0sYvj412B6is0+/ugxe5KuhfTMJyXRjHl7h8LVrxoYUMOl+ BlthzjDsg4+6BhMHTVXMKWbRQsvjFo6y0olbAdcnDJKWT2uwf3lXJFw9/uWGW+VkKg9eSjPBLgnRB+ lwBNwaMxvC27yVTKUBjEL6BOxINaE5m2dD8mztVUxbiNlCiTCs3krE0atfpeyr/HDfbe5qBB+enS7fl/ EZ32OZBRt/nYDRu4Z1uJRpriuVqNahXB2bSvb93/ ex6xnfAMxaRw0w3KcZf8ZwAiD9DmTiCqHnCd8pIrHCsuehX6rQ0eDEHz1OOtWQAYGddzSucEbTxiFJRT jlecixJli4cJSujR2s +z9ggk4ybh0mvzn+Elw3ijAlX3zzlWM3ZXOmCf17Yv+W1ux05v162lhgw8h+n7KL7b2w/ HJg7MrwyfK00D0k54Jl9rl9QQepEc4AEP+6RQ1zjshzzOiy/YFHQ7L3F+D/xSllB2ewXXLGbLn+ DWCIF7rvZhccruAQUhZzgBZAhH7Hq++n/BTDFr6bAjPOubAms0U8Oh0gzaL3PlamUNfwFRIJ+ Sw1QEluTVgh+CDIpPAbpOpaP8gujfylxdsEfwwUpI8ukEh6RyG9TCJ0cKRCBIKWHJHHjmk/ oxh1pAeZpFX83neDE4B17qLB8zt691pmgvXCeg0NYiUZYWLZOlF1PU7+ oAv3JejjcDgGGootfIGhBeI2TBoyihOwEHO7gvj2W7/GrzB7GT7G2tlQ8hbnETr1TEqINze22f2bj+/d /38P4RRr2Ig63LFC/AKSn0/i7PZoicAJt/wCR7f1/X1HhPCAurIVvjt/bk/ nW06vE2zxfQscfVLvoUYqaTn3f4g73x3oJWPx0fUehEMZUCLTjkJPD9f73J94FrF7Fatd2FqFjk6rQVh 36j8NO6 + d5otnfa8Sol9VC55dQmolKMJGOWL9xhDZA4FrDgvxl16mt66jKr7466xxlzlqPRFMQOYNERUJOHVKWTW gE +yzNVFHqL9UE2JUs4Kv4u+Nl785OQMKDMKKzAoW1USJrc7/T5riEvSm8A1wP2ArPbIf+ YSohexcR75Xz2RfQhXApJXtjevtEkhF/Elc5H3HM/gTdZVUVPKSGDG1LYWMtv2E2YPvsx6Mue4kotU/ 54nlbyr8UxbnDstntZu435c7uvBIME9GI4sflEe45WMI+ yoJHijjsp95NyeMTrzZ1zbGvfow24jN6N2XChYTQAawnwDZOjuRDqGezVsgNYlrFhTRlLGqZRkuUHWdd eZ +++0oImwGOAWmDM+8iu0p3izZn379tn3x9+Xorz3f70hj1+CPB5n16twazX5Q/ I77mnTOqWgFa6s3og2Lz4UBSWLHEVZYPYBnSJQeHeq4wcI4BSE+XFcXkrsoSn3apwxfxK3CthFf/ TOCpbJDnpNDxeWUowrGLVEo8Nfjp5UJqqx7m/pvq2Zu2Npky/ Q6HrK2DIKfksh9Wm5jGkLj2nudcbeMydHKJISjP+KYPVZNizSYVRMqbIsgPOFw2EsM4ptb70lJm9r6XZ +rjhiQxuqckgujDZknzHK4+UhWNat/GBeI8g61MvdvBPw4rPzObTzwivHr0KvMasLXKcm6bEMP+xVHM6 /g30dpEYXC2oeOS95qCpdgF5bIZJFusSCKEjJqCqQk3NV0wRVs78Wfglc+r643b15P+/ qfB5JypD7T80kc8eCgq+ 223ulPhwZeyu0FIQPY7r0RmOer4myIWu4tyvipHsHZLVpfPjsRtMZDhO6npS3B/ BG0TRRnznFYWCrlUWDXJcQowsQl14BQbSUwzvKHLWEjusGbJn7mee1qyCajjOkAjiMUoEmg3uPjCQxSl 3GUDXtF7pK5ngHJk6sDn8 /w/ IsdmSDYMjTvk8dm8hukBnfVk8RiX8a5iZopyyG0MAzAWQkpZHqF0DWjS2ajtsv0e1FZSh7K8t94Ctut1 Mx8zdROmLhBQivYwvvxfNF3XTBpDEptFaqLcPy00DX7VeuqMgvcUlDWZtn8Mf2PI5rhTwtMKemm9vwcp M3CWGELIitax0hXIOVcxCfz5GxhoF7NDv7ZjzAhdlwrv1T1fXEY4ww1TklPO /mfaLeRmBaVI/N5rkXQZ4kykrnEe4gQUIKfCWpRRPy64iem942kRruI/ eCrZH928tfDnwYgRtixMqHqiuqdIcHjEG2wV38466uKCY/338l/ Fx3pozSsjF3Nx47Ck8c2Nvz6dvR1BJwUw7ub35kSxj6mc3cFftRxgiaNdWyoAZmCFTJ9bwBrVK+ 5f4MfQrHejc37odiTpoaoOL9eoAzHET2mUgPCy6LaiGydOTTNC7pNcXiHthbKgo18A/ web9swKyzRUg0fzo6Fsq3MoDiUH1aWKJzvgRhUPoazA6gexpWyJsv2/ ruet3TemRF9309eTP5RImAgVGhRY9csaZShuUEY1mowor55Gk7526zJHGm4+ WmJmKBjahhen35Jrz916Fdl2cJkC+qLvzMIMENTyfWroduPKZJMx6j+ 5YpF30t6Quzot5mwvVRqDil7vTKlqkbHMK3Inl0ntRrMjuRG+ aeTewIG0CI8vBIJSmFfSBY4xMX58ckJjJOJAM0LDjKAoFVo+VO3rw4dexXDaM/ Sx6mYoWJvu37pqWXL5a8IFUKk4idShNSGG5IXqV7zsDjfUqBYrU4ZLCGqq33blshnynmu1Ib9CGYJGxG pEsrZlg7yBYaqmidvDN +YIAT9c2xywPmvx7CxWGq8Sw/vPn28K2jWbNYSvzR0VsJdPqijIRPZu3tVcE+j8CLlUxiw/ EDLn2bLRZJl55PlK7EwpmUZ/NAwWaNU35erkVmEO/ w55d4Uodnw1QMwM3jqDBT7GPUkubtoNAzwz9wMUrCyPpGMlPJlQIfzbSAlhMyAhaxQwAxOUX2+ 2jxOvgTBvbY6pY3oAtp2AIupxKhxlU8o1Ew1979zse93gveZ7bW3SiH1d9xnd2303r0eH3pz0pE4+ Tg4k4sIQaT76vr6YdVHOb3k5tAl41uwEYFZVRdvC2ARAdz8jEdpfYghd00TJsNEBwlOOct+ JRKL4XMGT9YUmovEZNXzod0dMeB9gzyCjxyq5X3czffb9TfpWiIJQ94vvJViGu0yBB9zigVUnCB3GxAa o89JR3eFNmqc33q3VU7kHvrljGnhw9mi3pmvNPA71lDFcfZADeiJbgJHe843h231l /R/q4ap59klfeZzOGx3P/wAXu9/ 8HXni6eEtxnLgTokSRRX1fRPHyKszLehFsbdCBk3QBEHD6Bk2hscc528ODfwC5AIWd+ohX+xrPLG/ jeQOraJl8yZLnHN8rAahvRG+e6/ 79z8GbgIyuXiMqbcou2P1ok7OB7eGO0gZopZvaa46HgljeQlArkNJBDP31EpnOu/ uX0tenlgy2rrkNu2nlqunZS0IyX+ RBmpfsxKprYHi6LzP7NF6kqnWg70SN27TxSyv4T25qATHBLg9rAVUudXwx500ObFv9Hw7JW32HaOoFd2 HDpKylK9 +Pqbg7ohjOhH8bw0/nAb0ei5Q8I6X7N0eKnghdcNwLrpmlC7Wrz0r4FXgXbuhLN9CAusUC8k7/wCHdro +m3k5tLBQ9qO3rwTCT5CqnQA6qrbRCwTKXk8JxdQpXaP/llpr8pk4W53NzRi1JI5e+ orVswbrjsvCNPEdrRw8tIZTH8446V0i3KbatbtYMijs2SfcM6tipnTEtBDjghYDBWE3fZ7KhgwwWAFWJ a2atkq5rgKn1DF3sEWNPJFN57IJ1eq + 3DxR3NjehfrNhHPgQJAR0HiDtWR3xJMzHPu3OTkxjdp0ratuNpJii5fsU1hXKhNGLCgKkuWCTohEN8cY iqSzplbJP1nPqfXlPV42WEG4S4Dd2C /taxkEgjjTNqF36seM38KSH+xSf4amTu4Lfy4zg3QwzyPNlKLakdp7LL50YssuK43XPR+ 0CkESUCBGMAJ2vFJFZZ5ubshOGAJVkyAP13XmgWhvDbRJZeQrMkesL3tYB8xLQuMMQdTDV2YOnIbdxf0 e +bd0KCxZ40CFqoKPctdsJl/Lr8+ 4gAF1hiN0o644GXuP7nwLQmNrhuhKn1nu6VYY7gKNPrJ9S7KrGx6g75yEi1mJyhsLQn/ sOogpoG0y6rr9Uw/kgs7WO/NjoXoYgXwVa3mBQyf/aDRvTXgGRsTaUzpC6h9DpgW4Hi/uA33D6jDiTs/ adq+wib8rSXutcuJqE8vgij5UkLEDKtyvlIy00H3K+ U3giPFpa2rB9wQH5WU3L3xY8J8kxTCnuoFbaiCJrwJ0NY71t16eomiWB1oGy5q+ aS87U5HtK0LRzubPKGqahgPT5gjv1cS46+JXw7+YYhZWiB5t9NUecI6hFx3ITB9hzSIiJ+fLDYWbLE/ hXKssshbrcIlzZzHQIzIh4bB3wvR/HXcuGKZcC4ruhv/ ddGh8l5pkcV8v2EI0Fmda3x7ja6qFABIppmKBvYp+4YgM1d5aoH2G+D1tZBi38tYObOq+ILbTCLXTLm+ B0r5FH1SY3GHol8c6oQ8vk7vrTdniXuUusooiPq/YHmjbs2SWlNY4TUVQW97+ o48QWtneOm5S1PRovoOzajmh4Vfons2tuCSBmLJNo4KnWi5MsFxUHbCZjSAdmxNjxwNEmyhKPzpp4DDu yWZb56Ds0csBfE959odB9ZOFJg2TQS +5KbplDaoTanwjxA6aeyOQ7un7TeLZ60fkeJfNLAXTUCDiJD4ctRYHUoRenhVToFgNghw59O7a1ip/ AMPWV/ e2kuFkggTit2nkTbah5i4tUbUWFBjPcEzVImsBt1seX8CzWTYoXVDYoDSqh4Pi7jPOp4HCR2xYUh+ 4RrdIL312N4DO0ziH+orIuvgNeq2cfKEtCkq5aeoUJgLqCR8LZ78HQDLxd9aAilT+/qn0Wz/ BM3ibP8v7Khiphn5O4tej9s15Aligw4C1S8obcGbMO/0tGNSj6s56nqtpNbwSGwe0OOpS/ I6xepWaYXFL8o600pQcjtl5n1k3O6CjohFbqgfdLmitWUMUDdUulTLjkMpNeiKPKgcfbCnlplw7gBJS8 OnVnxCKNGBudmO0vS0jbrnViHjBZ3FjDKhPlyxjtXk2VsoVm8an7qo2X4IOS3q0AY1mUumHQpv3DSXjK vLe1VZGqUbCMIqe6Sfdtf9qlmz1t1phxUv3lX6tj /M0uZf9en0UTqPObHJgODkIojXrhDOLqdInF4MpEY/GxODgFr21yA4szt3red/ RR0xZ1A0zh7R2Gt4MRadyKTNWegbP3dsV8Hvd5Snzq6MJwCxmDmFzfYHTOSpbcy1Y69UDYnae8AmkYhP rOcEYeQ2RArU9EEtJml01p1SPDN0Fv0yWJjkll0 +Isy637e5I4VEi5tyxwwIA3sNvqgua03TB4lKKmiMPuzoA5ZSuL3BF+ G1R9XYG6RXrAtZWVQZCSyWS7KFqCdu+ sbdeUg2IXKqQAUBVDDwcYmep1fZVMxFyeuO3YJaPaPiGXQt6Q7AhxLJnkkvaRw018ckcdw/ p12yt3s3pcrhHPDS+/l07+ UGU0qmmnV0stZHrpTJdz9q8UCbH3ngNEl3PBKzkMIh8YCnwbud44EL4pCC0ai1ucOlFLWHRbe0TgNdBX mpbbCExeROZRlm2Nx7ywlVOiZhkfhYI8hsKAwlkYfSGXCo /fUUP91Y1eToEc+sH0XqLnrQRx3ridU3p85F000/ 95Z7Stm0kpabUbRnj1vkFIIZDHvT7lzbMI4lm00ur3WAfv9vHmOdFIhsxbR4+ cH3yLsPr7ZiMpvpf6lOOn4ziVvUMv2eApwtFMwsn9fdlO92RXZ9ZfrF7n+ Kj5JpbjaOl0FkidfBdUlMIaTGCiF3imLjn90RVgGVENwVIwibW2Z+llZX3d+3Wy/ BDsAYjeX9UcEeCw75xc9q04IpcXI6jlhmm30sTkIdjIsM0TcRayh3jqKR4tjUCanCW5B9JmvLnsPbV7P XoJo8kMepEw2qA /yoRmRsap0clH7ivnNh8PUoD7Tgjubuh+2L8L/AJdL4aOBgp3g+ap2Zbqjhr/ E19qE9D9fGjJy9cshiGLXC0c4mr+3Gx0mQWWL22gBVS5wmI8t+MF/p/ tT14MWPo6Y6P9MojfH1jCQmOkCugsKFEu3oXFDnuCorxnlhyhrxYinwIP5bov9/mGeyy+ nQqVcu7WLXIpsnr1jyI0bpXB3wgZpiefM/Q+HuB/ zEXXDTWKyj3laocaqlVno3AqT4ZthbSGRllBoBhMIp1SHR40fShehv7RKPx4EtBfoeB3fPiQSU56mv7v jcv89KQcN7NrJimRHvWZFQa1r2whkgGyoDzL9VRcSf8iOSYcUf3FW +11eDX54NRiQM3o/hYnx1b5VdiVZ/CB2qa3e/E/TkmC85dlQ3S2yfsfSCVg8qlQZp+ W3pwLPK5IdtJ8kB6jmtilcPsuA7YH/xBh4epVn75EgbNjE1Zsjno3oS/ kmS6pexrGGVtcDAqaRV2dHXZqrGutWbP5uOJgVw6lcpMAMqObQfYdsoApq+ jNwA73VL6nBOHkH3cHOan3w30tpQ4V4rw8/ WwCQZlsdCusw7mBaGDDoUfFFwejZhWsGNBXBLiHj88SLzEPu1uA1M4nMggA8J4S/ I2qaEOQvqn0jLSw0YpL8ikt7uQnjXXN2mvcc2+2KGMcjERQxBZpxulHQ/ EW1zot82HZxUazYI4X63dCqT5xXQozh7r1h77w3ZxkXVEVS3781WE1dfkQIOo2CzQQacId2U119G9fyw NKb0mUf7n3P2ku7z8Dk0AsWysM4kjmpz7dxiDZIBEIK7EVHgGEkLp /uQnsHw5+CEi3T10h+HQyTUxjf75I+1r0n2gmWfshKvNVnQYtOnHhhxz2ilnG/NMiyJEa+ Wg9TtVitK2zDy3zJaPCoNP588aPWVu3l7AJP8excSAQRZQB6RX0pWge09HlOLZAcEt+ 1xOVWi2qVYNkpLW69niud91Qnfe83aN8N9cXB93rhxP8knqMgCan9efvsqB5X2FA/ XonF3rAXUKZGRWmAFWXN8C53uQmM8z6WYuMpksOYHZQChqGa6nC+DgnPvUSPQSp8wMy6pfRi5S+t7/ NELFb1WcAVzJ1s3GPZfLOUfC7fI1OpI3G8DoKR4YhGFnmh5S2HB9AVEKztoFHIAxk5/ IvbFuSLLmPgrVxd2tj7EiKPIgWOiHmQGfGMbnt056LgCWl4Mg3882JRN1hfNGqJQBy9DuJwvfHp+ 1HTDU39yYkP6h6yoICop8b2s/z/ ySNNZ3G2CSNPBZUEAZSDTITFRICTDTTOXXZUmjU8qt9NAdHsaCEycu+LlwF3e3OLeNDG+YN+ S5ad9YPf95oL0LQtIIgOyCJLreiOVjol9w5K7i6aSNExNDW6SB6Q6JrXhYQGnYJZCi5naUUyj4uZdDAd Iksi5Ce5XL1Jt9PVO9MOjz32EMMR5aBBASD160b21elFJ +fmfmFtNmlfpfZr/ag26WlgNHVmeXOMqCNrO6AuqArnu/ YLlyxMaETg6C8YNDozZJZMOuQHZmijKXq0D1Ebr1qQsadpMDQzSdoI+QB6M2X+ KStBvNhdxhXRDHZm4ArCuvMVg5laX26yOPAv53GABC6qPHnV+hP0Ai2229x+ytb8u++bKin59z9v+ pzp5IzYN3JPwlbPgrCkTAZZbZIJTG+ MvPvWLKBJ8A5DtTIka2lCSPHfPm1Z7IAEvuNvNOriNL1WU6FAfrbKUtMZdaM78/ Fmr02ZS8LbmSTPN0qm5OOzRrYSJKMEG1PsPZ5MCGFV1UmP3h5xYWaJ5StzuL5wh7+t/ adnVZEX0wuTJeXL5y6croiddrjqn40QC8irbJvHnQ+5tpyZGILNGHyViXJOBuLFCVFmJWXaATjAYn/ UnRaHN3mEvKjZZDNBVIBkbnLXMkmnWK7H+4mtRmDLWHimZMcS3MMw5BEqttKv9CBB+ IIoMIfhtuDBYb6K5poB5VKt7lbfJfjDc/ ML0scY3yt1juAhJtgiho0kPwb0no9HxMgKZ9hNB4mt5VroOFGZjdcuYwNhNifGZWWMrdDfZgRUmApBIo wX5IYXexJzfwZEWjUB2y1OCyw95bAXFjUQWDNbsJPsKpjQzJWSzYJBoOJXhrLPffNxFWeD3nxqYJkjRS MCBobLu5vkpldv5 +ivZvX0/HlFd0eKKT783i8I5/3eUZ4kjF5BR6FTiOqOEjPqOwNtOIzSzbWCiKcRhsfjG25A/ pBVrNj58x4MiDJibkGHFK9OSmk1GQdu2RLZksrpLExmXeyOmN3iGKDIxPjyNkjssfrhFULsZ75hiySxh ToZFB0yBa4YXdzG1TlFby9yfx3kEU4523zG15X5lmhpltSDhFTewTG6bmvgHQMxFnHtTWJhJAoF + GUGJ5c02eqreGknB3CwcPMHdBUGTiOO0WcuFuUj1081uYxHFAaX4dmzpiNxmlG4gSumF1JyZ5m8EJqqc TFSLzLQFoa4fpLaJcPQmQVjVqr5z9Wf6I3J1WsEr1xb5x9936 /Cr5nr1YmORRSJH7/ fLXoibYuvZvpYRjkwwVE4aQOXYTLih4KUU3CoHUTnpdAVKLita8CDEqGjt2gyLQktLasYcJyWJjQbJf2 LygeqfTu6byS9OUjeD7JuEj45h20wr /QUYfn0qtUhl0PK0Mvz/ 6gq3R5YIuTuEBIHFBRxQ0v6Ci17j4YYRAYV4ROfW7dux28qHZbtyvzKQT4GWAEee5CI9Fvldtlh3BPDX mLJFID2Dsp +vVL5UIsf4s83sqzzzrofJ1xmUt34dTKII5s7uvb09ypsx1yAFYAkEcJ/ WIqUOJA2R7L71pJXdY0T6rBuPxBtY3dIrRS7EEZSO7iBA7qAvYS6G0dviDFIYdtvzjIRgssLEWnYFW7c UVzDAIeeFDAZoBKWFuDZh0haVaA /dPf16d+5yVE/vioH4xfcatF/duZ9YDf5eQ/ h2zVh8puAE4fjEDFmapUcOxKlbf5rPH5RT66RmbkSar05et2qftScLYWOCSxj4hABMKy0KkHNshW6DxW ziS5m2RTRxNQYgRc + jA1AenrtiXNTKzALiTyydErupzNB4UueXWp2jhrIr8Y272w3jmqbzdCokZIc9bSdIQnlapHG0MeMxRfQ enFPgPlPbLOoiT0M8qGuc7uKzlILXlfwnPcNSsgGhEllCnpV8w0VUSZA3TsQyshdhPhRYEpVJNG8CYxs MGwG3zEVHa gy5SAhvIUslnWvKPgZUVCcMQBOzj2IOEF4PCQszPqqySkkYuckl1nMYQxN36Fv86Xa3ih2mE8gfOGCwq jISzMQmG +OTeqlUJ7w9iZPL4GSXYKyD4wBqKuCLHeEKW2rB8QT4OJ6Ub+ TJsQEtLubMjZGGALABmLKCFVSrkCQFgWCupJ+ HRRyLsAbkPQqhJSZtFEvnTtlFaZv6KyOrioQv0kIRn2yBMZ95301645rD/AIK+P3n4h63Aohp+2/ roVdzMXpLXTHxo7G/ z49P48yWvITrmAUz6IevbAYcDr3hVNYQIXxRcBhwTQo6cnTfyOVhUME9jswNCzXheXUw1jII1LzQy830 CWl5irQWtdfkYcRQIgtlwsTTErlIoq7L1jv3nXbveTW6FTegq80tLHXljBju72l /xXqnp9+l9gLl54255lx/v1Wu+ m106I7TdmpwLrNUaFJrjuryNnsBDViWMXnb3pEVR5ardpAximeFnPWmfgpDTMHL7XaWFlelKyUL/ gMiIAzMhZPI6F3U1UXZfXLITiHJBdjaS0NChxeswAm0gSbyJGnHKgZN8/ He1ojF4IvWGGHPeDWPHkike43Wbcv6cFo/6/Q49iQqi5p/D+ rjnWqO0BEzQDFhvG1gJJqVXbP1rVJDClgvICqNGx2NbZQWaPPiVY9n7lQ8Iey8riHzX2LPXbjMl829Id JtAwJNq /JGHUZXy/u9uJjoRTbieAQe+ZiSK5+/fjKOrZUvwUdWqWQbHmqzWnXqlOoUSQsHUHMHrBtV9eslqA+um /wAu/wAjaDatqlZv+m/ h83Azm8XTr3eWa3rTumNXNKlqoDabDPfWnV07GtTKopDqoMmZjCXST40hDbZVghzBlg8UKUFhXRJYiFW BT1rz2p7mkPzFxRRkTdMGUBrM5hKXZwhQTTDvEzJXJHlmBMyjORvWzngxk2aQyJYMcTqwX2gEuJUDECw Vwv2UeYs5qPyh8rtq58V361439rxyW3Gx /oNNr00zmVTx42DcXXsvxZ/QyBZc7C+ 21GC7C9vi4BCPd3OEJIhhpLHx6MmB7odtoVFOkYGcsRsdTrAkNYWCsyNCkfr1N0voRj4SvzC3sa+ d1MUkvl9uN2irCvEQVuIMhG6SOiOGxUTYV8x2Bzwf+Zr8/H03ED6Eq57G1w3Dndc0UZzoxFE/22dRTT/ 1AixlRXPAw7Mb6SlVVFHLpxY6VmmTfuDXbGmHGrj22di/AAQU1+5k+H21nWQ7z8oA/F/ fb4xgFCV1diq9v9fJQWVDiNu0EB/oYWoZhmsW9MH+CgN+Zy8HkpWFmxc2cPrheVxc/ yMoRBkSRElDWEvFU2GdT8/kJA37Ib2W7a/ 2ZU2K8wsV9YlAKkFlfikX4bC7xBAjznrqlriv0fEmHip9kHXJYzpKkkrJGB8+/ uclCC85j5h75retD8JFdOpi7Hg1abK9iees1it46Lfhi70/3UJDVtpmUm9I8XNQ7YM1l+owM+ 8WB7ZO8ppr4M5mMIjXm8hT1fxx353CExHQSnoDTa8Xx82zsxaVLayTFli3ck+ 064mpaiDwfv03x9i5oca1H42BM1pNZayx7MHVziv+6jt/wUyk5/ kiZ1weVwtkV48vMaJC2zSRaNzddfC1s6ILxhtryllq0Q4ppo4PuJ1OugmftYrY7YvMsbFnLBDuvKXiLE WTNod0PBbDGHndnwe97dztfkrG13ig3aYecJw4Y0LrtNtS46J0bn89BOp +sL2i7S6O7S4wZon81PY4ffQAVgNbu19JCSoxgB5tsdxVavPz7r+/ i9YkOwEdJAsWEPWE9n5qbJpm0pspE1wkP538ms+LtFXFVUz1E34pl/YTQwBcXD5KDMC0Y1n6Mfdi7/ Fn4lgHe4+ ousHhGZS9Kyh0OVuLlbiiaR8G3NZJefC5lg2Hfhm17pgc3kkz361yg42gV8jSvYN56JzoqiC/ yIXhGCn0bylYVSauvydWJEonQKrCp58dW9/9fybsG4dJh/ 5jGqwJfyesXoraZ8BCxWzpoiuwiFPBB37Bq+A45/C2UQnRQeUbuugyeNs4kdgnhK7uCboner45/ NlugHTB+cGIcra6fG/XX/Pm7tNjil7YaYf2Uim/67lC/ aZjwXstprGSANKTZpZGiwcizGluFmFofXWu17zCr5WtynbPkzdBbHtxducGb4TAipDiJQA8wZldrotDu sXmHvqHSKpXtuwhATMLoCKocbsxL0JJPT8nJFRqGkZiqOged1dWlWJM9Z7xrJ6X0 /nlLEhfLV/iKmvOiY0a6/y75Ut5cwnqa9fktBrdea0KvnqQL4+7fhHSXu4+5BypqIH81IljxBu/ nKsfPz1rnAPSgujsuEBeOFX2vaAA9PsuQoK1XobHkfkWaupihc2uhbHxLXtAyCGGYSWM3FL4A1In0Qn8 s7oaTZkLXGz /gpdl05NyqWjiNtibaiLgBo0pGxK6lcSkrKZhIQe28asR40ffJQz8KKLK25W2ONqmsIMNGyPPqTWg11g + g8Pl0cpJ5Xr9Aorcfuwp6RCiY5j2zvs614qt1f5oeY4kGmp1blRSyBNoRII8A1Db7HzBDQWAmHAOHu2Q 344YFGe46E5SXlCd2QUPDPG9ho +FIQZYAEtt1VdWxlrZ/sHnRSnHXBr0AU4yMa1loFTrzSGK1rEUNbvqNWBSTYg+ 7cP5UTrDqzjfCeGVZaMeqiLBx0at2X9R4yGWwJHEJo3jzSyVhAGPG3t2W7yXct6LI1S+ hpzL6Ca9fqrzwrwptY+f9WNLV/ yCbtZSkYxgsoZh9C6sEJP4MpjyPRrLAcOHGFEYrRO4eThzUJ4n4NrA65drj22DFws7azAgdn0owJigdQ yu1 +K50GGslt0aIKv3nni9ppOJBWGWJ+ B6VH035cEMaWPeDVMtKdyHtnzjLNhhbscqPvNJlPsemcCgvk99EcDdUS2ncskaRoFT9+9mjvXs7qy/ QNk6KeiW6IdUZBG4ww4+r8nba/ d29oumumj94xuFP313jSjF6gUz1rmUdK0OHb3EKeBPod77hxnG9FX5SPyunahzSj2kKCVWoFEwWCxspT GE7csg8B1AeRKnR34cfI3LzzQNJ8iVRxDWvlwt60BR7yMbUA6hq3 + mLQcpqX6MYzFh4wj3eD0undL6gUL9Kh7D3ujybqqyiqlRsUsTFWzi0BU0mZ5xnyrQPUvjfLB4WI4uE96 S5sMCtTLOBjDHmIMf2gc9iiIU87rWwFCpAZ0VTp4iA68yj2dC7fQ1OGdkkP98p9Z60aAm9Kywy7ck4VU HkkCqyXPLTTGmHiI1vLB7b1nY uM5qlI8OaWhDpzsaSwQhV6VP3u9dr9PhdqRwK2l7skTzkhsgFzkdfL8vK7IAz3lmKWW8g8+ 7yKfHfaRZrXutbpQY5ZhmHzrlQqGJW93dCujuMnSSINfgRn40wgZDfOqYrMQwTVOecMlUhDen7433j9P 7i /4aSouyMqTJTE4hsDwpzCjAvsqsUIEXZvKycR4HogyWiO4V37S5E0Cx3VGGqBIB8slb6ai+vyPSvBnji + rpleV4T1U635tKFjJzimzxtyx5PJ9iCf9UrLLuEE3qSOTI6JRZ9eMse2yjNgokWJq8XrqCMWeUl9NKtY 7ZoKpJNF2eEl6WamjHdRAVJ1txtSESuO752ipRd2cnziSDavBRSmj6DO1FVVnK3UseASLDRiqZVZkAan Y5AJZC EFLdwRraHdm3Pz3rrG39DBJ/x5uCvx8kgeN7l+3zWF3wtg41WfERRdF3QskDDPELGPXz8g1qRgx/bZb/ SYuNgSjxT9MaNovew5nqKlatNfb0cwhAoA5+ HRzg9o3IjNk4Ng2mvERmCmeEUh5tyad7VjKjkXgPIyxa0LN64FqIBLW6PS8pMLURTI4FAU/ QSGEVXfJ2nt0e2mXYCRdGOQ4fqBYmtxg+dfDfiG/ yncw7OeHjRj3Z3wceY0rfmLsm0J8fUhyUZnX95kbp7+/ kb9MszHk5AD2o3aAVkVfX9luIY0iLvAe4wxTnmmKwWKsDGM8UxzxnB8o8tONkXMr3O8InP7Y0kCdsY6z 0llahRwwapphgivh2JAt7t1Ag283CRgrAzToQqKZpt9 + mVsqwGMBH7d0KbJBaZmIBtR9GltFBhDpyzo4HEqZHb7syNydqJTdt1c3GaZqlPkucLkGZXelUmz9a04v 5MVpZkA9NJtcqRIHBjOjma4N2IlivSXuGeGqgT9SVwSP4nx3ezof91pjJ436SSBmZnaqwlQKawTGdr9N gPwc +hRTWNzdJr+tXmpatq0+pP8e4bv1h7odGiA9V4C9t4vrnrMPp3UcORCkftHt90wqEWu+u+i+/ PeVQhl956NkU0ebYmWj3cSdda8y9YmD5GakE1BAela/ K0g2HTOYWCM6yhXykb7dlRwm0gSSSQYiLL5pE6OPxq7K8HKhBSWjOofmXw00qrC4P9ks/ 8BwxhAObCK4uSbhmJbtdnZnoQjqIFx3rTtbaRgmxFx0zJO0XhhdNo7JRMgGKOtZlKzeeJYB1ollUrgxZ 1ZoZWuZmklWNArs +IUerx+H/AOzPD11/Z+sC/uVVmsrubf5cka7H5rDF95xlvsjyqlklIcPClYJV0QmOsdWIdanqdJaP+i/ y8r9P+CconLxHfNyp4L8ott6k94wy53l9m1I/Sf71qnXZcPkbAuJg+ 9iKqvbHtkYWDpsjemft3fl5oOPF9oiPULjU0sNH/QqCO76265SrV6n9iqbFf2husLYyS0eI5i/Y/ nBaQfiI6ByN9x42s6sM5IjkNeTsjMPlulKirGGNLO1hjl73GuyWYjHF0hlitMhL6PPDpv5X33SPhUfjK iSYJtQesXaIpKOs8dMVe418PWaPXtvX00oyUpC1pdl5kMPItdz5PywpZwmwqCzPyfkU1MJxb1KAaOUnQ yXsmWyabyi3ednbi +9um5+mkO5B9xZVnRnsFcPXExiGS5PyMnAD6f0o29hc9pgv8z+t79k4L0FjjsTHc6nS+ q55deqyxbKEzdfZWcvjr1t+ TdxTKUwdA8q5uACelMxeXmzDg80f2Epfw5hemH5c4xbOHZ5PR273Rt64Dc8yzKsAh0GpKzbNlf+ iieH1q2/w5mvgkV05n6ig7T6F2qQbckryIvWqVlQuXMYLtMzugAJAPT5sKwNFgux0q0d6J+I/ uEkYEqij4H/MPH3XPqOukhq35Sshm/ og20WgX0uT8suC3dfdNSpStJfAQscYgfJaIUZxGIscFA7vN9YrocUiz6Eff7XBX1FwcK+ TkxLemBu20l5WbLaWPgUeADz8xsjVw7/ lW0q4dCEg5czcRU5898QZGxjBsyemkT9brfAlPi23hoQR1kLtWwlNyFg1pGObsuzbQFG0uRSj/ Tl7lJJexywTuIGdzoiPy5KHkFTphmVPLJZqsRoCnE2kVGJCeDUOtfe/AGk/EXxA8X+ AaDh8KvklWs22Uy7DXRpRk4seMplM6mVPA6dRrbdG7KfPDl8dvXeursBt3kM1iu+ GmfqK14Bh7jJQomhp41qo9IcksAzmsOFVEG1uITm8iB3iHACaPMyhaCh1+ 7EzU94n9rfwqfjrpXbS02e8f2nrv25ny60Ng7WsfZ2tUQmOIhn9bvSbKejf6PuCH1eMi7cEkWJnwtWZU n2P363YwAoeUIFyLbF /i/ zpAjMpOSX3MW6Gf1EsqEIaeSDCQihO2htkx5SunIYP7VUBZIb4ZyWemJFV7MJ5Flm1wzKYLO9KUAdO5u GSrA0sL +MApISQT1oZzjnAKhILzpqQsOaZiL1Bzg64S/GKb6dhku9czTqH0Bh46CGumP899VroXyjEjeIYpah6+ 2QF254vLMsqszP8V4I4FYdV/ AQtiWhlnrt9gcRkWeyvWBfX9yvDAfVNKVDAEIh6Pb2aXHto5gpWnTqjrTQoSI6o6AeHmo1kiJgc7ubCv soqn00RK76nigOODhz8YXlvUnPE8OdSwI9eUV7p0JhElUbmC31WM9s /WPLbE5R4MnxG5hpYiF4bm3RADuA2ueENrSgxdLjpGxDqvM27QqunYE/ OUq3laeY6jJrkbmSIHtU9Vu1AwVkBsr4WhQO2OIhZGmQ4C1IomP1Brfs6ddXzJZNLuLG4tu6egV5rMhC Nez7HcrSgmaKAlLBcw5LPLYQWw3pviGZsE8daXeh /mCekOwJwVAywAaqYNF27LPSuRIT6/DgXyMyoViYIwdohlIB1u/PQ/I4mEnpCfLXMDTkdNADid/ 3AF79wTx3VrHCw9q8A7vw8h7eIjMa3oWuXhtOmiEWpcPSdSTKumAMCbyFIXQGtPkCVXiI+ Q3a4nFfBs45uNXMmIrfUnNu7zaXVVFELOGPoMeaJosB6SWr0KOEqKXvRgBmvW951UhufxDvCB0008SdJ MntcaCiRKnhyflbJNzFHHrcWzgSYqw6oFBvxXyjUGtkijNZDTFArhG8UW6LRE7lp9tyHrTMqqVg2jex7 nhQwCkUWnx2y7811Z3U4 +bZjqpQ9T58ZuwoP5hVf1RhUgsjHUDmtjRE2OhvaLZGpzWV1CNMsv323T7yvmusIFNCgeczXnYeXRAS0 +11XBd0d3TtBYSI+ VN5Z6fVfKIThTWwavrpYHod2qTYewqfkKCYzrHbXqgwPasMCSQ8OevQxx7MU61fVItXuntkc7mRmAc0q zLMIMZeY8X9VLPGO7oqqTDzffOmM /S1r+KxjpDHlBnafqn8o+u4RG4IfLlF1XE1wkWaMV/ 5LpoxZzZCea3G0fmUQrTkaO8TMsFpRhie9vGEsGHvkog8UMqYjUBPv+ SOzHlCuLDlOOGmWXs5JYoe4H8RNjPdVvMED8dYesi4VwEEFMFJpiHAD4XhyjmqbTC5DZtAqXiIowuGtu ReUKdVYNiusmwXkCsMhKZFUKQr3pL6ldF7gd0Wwko8jk1r /cwmX7Yp1O85n/jY6R457p+UhGgsoNdI2quHBGWzUpnjYLZhnKin6/ vGOQwqzz6R3w2IXJgo5rxpcROWzXhsdoURCHk26qNVaw7GOJs94sfJ1BmuzdF6KKOU/ gaHBDYsSpuZsFxtMMr5oxVAcPk/QfF1/BnOUrqWzBn0vhtHTVbuVjvW+ ZXVdnJAPRXLpfawwNWumx0XKAD79n/z1aO/S78Hny1Paxiyd/ sAfkR954xeN2vRj2OFC6V3dxPy9DsygEJ9RbzGWsc/HjJHzRq/ aL1UvKynhw0Zw4SX1nnmSQmxt4yYLWkcvlQ5kO8O6NcqpkZO9WZsx25cznOCcHINsK16Woj5n8ZEq04k 3z7e6ORP3yPa3cWjtGvYGnhoinpeCCQWuG9bUheqXSOWRyZuHcmHhdrvmtfCIcEYZwNc3ky + U3uCvGjfHuPyf4ndVRi65rFHPdkqh9c7PoiJobYkfLCBM5cLzbp1igfNAGrKwfz3xAtAqUZMbJAcjEgT Usdv5zmLly5f2Sfgm7iDjmGzqmgWhVBGMUqj9Wu7yDbETmSfXdKO +1fa/8Ilca/q+sbiMjGMp9ywmo7qkrsYt7BMPnD2b9bDckUeDtOz+YjKJZAI/O4HR/ lBx0srmcbmxs3rU7mEY7ZnxLE7ryVSfCe/dfZYok/ vFMBDfpS4CcHNkiTNM8VMv3Zk3CeIv2Nioq1Dkm0yqA3syhf5mSb2f+ Ev2FGOTlokvCeB3jno0xH9eZl48zx7X1d+EvEGn+ELz+ 7xxyK6uOxKGQtzHmI3Ou1uD7z6fpX34UTaGJBW9nHxSlW9wUAimjn2+Jfwi+Iuq+ Vea82hyHr8ogSuMxiCTr3wVV3B59cHRcqxX9dHqeBXoqTbxdgEFGdciZ1jvbarUDWFe+ 8MpQS9rDnZQNbhL4ph77wKluizLIGj1spTbXZjX0nynNwX/OXVHd4U84+MviH48+ BFdx24ZwBT2nx52lfjX3BkMc4q86jApxmo69IghxjXUzjiYSjHKWNgw5q4K3ttWG2XH0Bi7Nn1JWQ2tx F7VlwULJMj82tiYV79Xbhr4z1KuZjGkcf8C0rWqX +ZQp42TT1sP4QiQOMTF6LHabn8hwXfSkaE7Q/ffi5rH8xyKUpImdzG5l1fvLrbjdhjo3aE1DQp6lH5+ 2CK93GPW2CxmbjInyvC3Jy8pT2ArSDeHKduH+fPpIl0zMKH6R+ vL8IgaPUwDQGMFJgDpoiecwh60GIxjM9qyTgeOjJ5t4VxVXhh3e3d/ lhz2ou1MCO0Tu8eJTwWq2RlIkftojXIWwuwH9Kgei6YgofYMJjuskKmP/ay58G/O3ruJvS/ nXRTrw5r9Ppj1gUJBh8j8xciiBRH9q6+ zR00JXGXSnVOAZEKjeHWN5iYQhOceTKPUJTXDhZnk9UYzMKKqnhuI5deCLSVw3fgjl6SVk00YrozUA1F wMSawmwh1pnzKVBIKyI2B1SLVA3kvzY61QqBGKsr0xwxvNQM7A3fcc +qE5R8AmbLA0I9tFJ09UuOmBFbhymHmcWOcQaAlbJfd2PbAE4e+UjrNMHfYVheWFTF+o/ u2n07CqHaV7k++WAe5w79oTWjv7oxKmCgQkaksTo3a0EvhzAHhXzf+VcGZmMbNuXHy9+034E/ wK3O6Boq+LgdaEUj9lR57ZIWoOHUl5UpkS26L6eQ4d7H6Z77fvUvasonwGPQRXrFbx+ Jc7EujjNEv8a29Y7sW7Y51n37MIgtUOGPynjRkkpD7p5Lw4pHwVyVnVmCbclEwtM64fORH0mXOUsNGp/ IoNOzUS2XrRbOfiqBEZTsIey3J0Ilnf4utOPAnibu5Lx83xUh+ VaUBDZSsJCvZFoeIZnZWZI4bQ0mTZioOZFTPz/ mZq4bmfEDo87JBptUTTEFXyMf1ekC5nMZLF0p0xBKSnjjDNO6zRu5fc2x1ytHrKUyheVNm1HFOIJcD3S mv2ZF0NG1V9N /FWp/tT+FruwtPEPh/LUEyQhvIV8UNzfFUMOiOpVvkABzXle8+ zMgkOFxxRLEn3AMM0Dc7xuOQcrxR0CpHreWKJi+ YSOPz0faRqWwM6VIX2PZsb1PHi6SsFAck54mCWPC6zi8tQ4kjZxgMOJcFKu2AsyFYjk68wkHl1OKfu10 efffH5Rw /QNdejgrAy0EKTrwCH0md8HEccICjDdSwImt+6cRoUEAcvWIheyrE93Mh9/z/ JD43NTYDBudrp56mAg0o21645+Fi0foTJYebM3+lFAw/z+dH+fyoooAKKKKACiiigAooooA/ PesR2JeA4LemZY5gv+zXADXBIW0fcJkGsrDgpPP2Zr+7+5Jd42scCPxvVsFk9c3+ y0eYmKIojX7lkTOeD3NosQWG7DEcsAfwzRyAeiZdueZw1ndd2unUj/OoZJBteU0l8WYdqrIhB3cH+ HfOTsRUc8zUNHOz3eF1+eK/C/gh1DiqaqXExfI62EO17sM67y3z36urPfIkN7orj+ JAVZQkWjy6EHnOVIfU1kk3MnBrOeQceDhNvlOh08tKEH2KenmHAs6hwHsNDmEIOgJzYM3nDraS9QTdqv 2 +vN9Z8zjX/ NXXggwvwIlY9ZpJWYiYceTeyk9FELicCJMJKDrpxgXwWzHNeP5zkLOQq9Wg9ecHNJxHCnCAeQ3VkK1S/ aJ8E+ AA4n5l5GmNCQb3S93GKZPY5J6TiRtlYB4icDQrRD0pnIMm0lDSqziXJQWyx0xJFENmy4qX2j1LsbQXCh Y8uDBWZjtrEhOXaZkhYF6RrN4bpwHdzZTSkOcwJbI2JDydOrtW80cC0 /ABJ5mIcrUfc+CAAChSUsdQWft0UUg3cQ+ DJ1VlkEJQvBnGZMVfkiGAA3GzU3U69EmPouHAIANlXsCjmyzwWzCvZ+ NzwZ9fKCf7g2rN8FXD9FbBtBCSj2k66uHpuxVAn11D4Anf0WqAwNzWRCvdFPenXVZeJ5PH90GrM2SHrA c0CV0sbhz5i8fGKDIQ2LFDv1eok /f2Qw0hnua7jt41HDBt9AqQ2N+WoyXMW6sZ2yvgXZo/mALgvG7/ PITsLXuZcCffLuPSAAQpHBTShmxCp8EAAKnTWYkUrdVK8FrRHXQlos5OGiBwC3aUCe7qg0ujbDHE3nzF zU9OXGneAGwmYuDA13IMZc1wKPF6ZKZLWaPQlUP2VQxOEBQsb9FhuFyF2G2ngn222EtsozsioY /T5+ QlII2EEtLmKqYBZ3GrcLfAsASvlBjsFh5V6KQ7AGRonAB9MKfLgeVIKe1M1TH8ziQTE3d1IZg3WAut0g YU3VVnkJwA5hoGkIEtnzKglARWRHyJOJLIiJy7sGbmSjztgaJm /Iq2DBq5jfIHu/ L2t1m2N8z1uZexX2jkkwcvDa4l9v8Xvzq7gmLyhT0A8sVD6ReZZ6eh3PT9H5jP2KsaKiDRMmoMD4n3cs CbtZXUbjBqNjZVrUScMAgyb6wXOro1vuqvLLO42MaC4bADAnqh0fNUd4Sl8PgBvcXW +60LFG83uZcmfnUN1LLXMIsFIHlZjpKczSGovWT87/cZfNgoVd6c90/ 04ZlXmD0hJQLG2npfmeaFnFUpRH3JqTbUThYFlw9hsLmo36AlXFmD78HPBCemAiiPlZcojAYPQEQV3YB iQbfU70JZnszSE7lhSlCsvrLxlO6fkf5JqEMYVAHbM15qtRIQCdqZNjZYWiOOUCUBBE1wJP0Dee167IH aH3FZHnh47dhfKxxb9wQ3Np1USE78wlZQiKTE23SDxSajz5xoqw3DshvG8iUz3VO7VNDYbNg5DzjBp99 +evkPMAMoUQW41x4uXNOWfH64YG0a7CJYZlpNymkos2/ q9LlKP54fu8ge6bL8604BEdssrBkA64L67TyOZwYJJdB+ 2NSCRYddDnxHZJ2GO7GZWY7td2dZb9z1r7JU0rE8TwYRYrFyUcv168STqKVGqaW2Vhtx4bN84awk+ vt8p719uHib38q53GsFVjBPMx7MCVUjY5M8rOelOGGOyEdgO0NXrAsViGQMRpQnzE22TwtXGGn39TKAg wYhnJvaf7RLnSE9Z26J9r1VnHZ6bGNpDrftFL +EV9yUXwlTUfPeCmwtrzeoKJ0x3/8AN/0zhrNO++a8469ty5Cvo5PJhvMo4POB9O2zKKjDX3Mq8+ 8eXMwYXEUijWm2TzuA+GrlQwqo51QbpTQHPQIFN9JwYlO8DBLekD9sGDwHQJFxUFsJnye+W+ 4k3UsIthDG1QuNUYWLc7UXiH0lYHYP2zXVMWeGk2t0UxKv9hDp86NQW8Aov8o1Yp/W5w+ 9c4JUrywQp8xkbnNOYe2YgxX6FXObiVQQ3W/ FA0jBIxCjrvU3hbBnfGsuccWh0EoyH9eceZtVpBjpDDDhKqEbPxixghJb4ioGLfwKUXtXgtcDDMIrb9m KjzjwS257Kt1HrGboaPEBRSUeJHKhCmPPELzyHbkXYodMLGEXYU4tv373r /ZT68T53/vRE5CC52ntpY/ 9ZF9sgxky9HnJOwQvOer2rgGNQKcFeOTRPtf2cfPiSkknE5CumUWNFoZTSbXJRxweYVEhvSLxhlYdE+ 1RFOm4IaBCVFHnL7fl+AA+VWN6LfoCCrfMLCsMwgPB5Mb+ dUVLaPOCIQDlGn0e16jPOp41cPFcSf80Lio2E1OimlKOmd55eHj9fDDlLQdxF5jV6aQUJXKvtOcKWXPu 7SmhjHKLFCtranvlqO7Ua +eNJcyOafajkPWJtOSsDZCWblvTJq1Dpn6pNDHitGR1qj8pivgCK5rzyGbGyv59SLSKvRsU/ HyRSMNVHBSOdFmCVoROIQv74DDRgaUtt4gQpyM1/Dp/wPMV/xlb89blsa2/ A1v1vaSQMLbeDk9MYGJZYBS6tBuNHPofoYQ5FAdGFw2p74sUIN0sjt8Bh66bCJaoCBVViUvdeDQq/ mP7QFKaTm+Q4pKLMYvkgTQyGFQ1jGVHCWbUthJwXflGH7CAGTvvbZQByzdxbI1gWOM/ UOTUg9WUk5EgDpU7QZ9acOryfbx7/wCG7X+OIbC8lHerhNAHpdm8+fhkm9VAY0iDVj1UU9S8+ ohxTMzFRMLPGshpeFnk5afNgUC0mIiRziQF/iNMxhFQF4KDknC9ZwcnZbyMWdjSikmrosg+ K4OOMzFYLAEfq0gMBwyQaDuUFAc5XYyzt9aDKLqLN8AT03xo3gfNZyFQ9Pf1iVvCu+ en7yynw2Fid9DbcckPZytWwyefNhePLYJigXflmltkb8V1ozQhZVvhODvMIHCZ6yvebbRmUXczKDcb3Q dxyMejIgrGStffFGm9mbuQl8lUu5ViRtczbqk5dzORBnXFOaIjYmJy3eu1hBdtK2x97pxlAxbBFK4cVT vJEp +DUoGgEVbnTkmctN1lPEnYx85YMUhRToXcJp1/rp+ j81vMj1e1X1s8b1sve0l1VOG2YBBBwPJLmyQyKoeoIJ0MB5L3G4sSw4TlprICPeB4+ 6aR7ZloEUNYZbQ7XVKyYZdQzsiUoHynNSVDZWOUdEyhUVAuuhT0TfpOiVhZwq4XPhIXVMEFrdVztiSaF i2gBkMDkOiCnXAc2uouT4 /vPRivdurNWfla9/x1+VuqsfJ//BQO4D/l09tkNeeE/EnhiBCGI/vc5eHqZhOGyJnSP0KF6docXqsKk+ XXKwklF7MBpdouG80ynvaqDJoXLm2dsqKn4UEixXYlXscRedGBfyGDAU0B9jw5R9lk5VgbiLMn475jpU ZCZsADm6GOXwUdK8mcGkMyJWMNV7r5K /ccujJb61M/ Dvu6VNQSkGiBo5IgNBU1ruoh6pkchuqMWYoDYU0HLLbOdd29Vvi5oAo4t6wA6d59buja8Ooe7BGHtVNS y731k2MZe2h3a3D4 /Rn9ljSvbFvxYlQZKnp0HX1Z8A3EAj2LlOaP1HqvEPn4mASV2NS1+qCaMDgXFV6Vcq2gM7oq/uxt+ MkUYkQMecXLNRrQGCVBI4qQ3RM9rZw0I598/dQ70bnve4Gl/wCtn+H5i9Kvkc2siSvgZxDZ+ wrY4sczVR1gLcwxKAZtBIpfqKiQmzakndAtmu+ l8cchzSTIioYsoBsCvlcBUgjS37oyhvtnEbMgbfjKmLdhBgCMbO+M5wM+etUBFxC1Nk/ iwpEgdOir9ZUrINWV/ gGxyZD4QEepHn7W5aKpfynHUx34UzCco9rt7niLiY6gpTwPQb2Ou13D9t3h7g74FNSqlSqexw7pZi/ WIffdjCSTsI000Sp0ahDyxCkN3WwdkwqBR2GYtTaUUkJgXLaNySrLAV4vSgshEaGiBje5dXbgArIqW1H ty195WKNr +vSTYMsQMP647UH06qkfHp+qzDK8EKRa9eVO31yrzmiimhJhnJNm2G0BqtN/AD/yxqhr6Rcbxl5a1H2M / QpoarJqGMf2lm81JC44I2dqDUNKJ5h03w0rH8QhJYcRUAljErTEzaibdN9M6oRmpIFeyCVZdXZRbVLtE QWuoe4pUg3YZEGW /TibSBj7foRUBMpGjAIiq3NQyvD+Je5XWQJMdXZ2LLFxQV60PBf6ejzwrib8WgvWtubuawY7+6/q1/ rZHgLRs8OcihK+QZhAkEEOGCkCjeuvLOndlrSQZXlwZzeM0gDcv7yaV0+HycDTUV8GxIfh+ 9iwp1CHkviBVHhVoSlDjsvDDVWJWUUabsLndwAhnPLVISPwqYbfQRVAiPpzlS/srlpLOaeCSC+ i4zLPS39fOJ26K2hfHEVGrISMXKBCGS56sP4083lnpv8x6+nlym+rPao4Lmv+ QI227xVupj3c6U8v9aYY3PNZtsS4ZEf05xMMLzmJ/XLBh8cLPJHCl7/ PWbmyR6ZMRa3GCuLiK69uryDKxegviUrCMRNXmTCZvzBKSsErpxagSpyQIShAVJDo81qzhsp8SJSVikF ALJOhKuVDjYYZfyaPG47uUKeeqJdevbR4wm9nTug6NmZKtV /M2A8pEybPaXLs/nEYRFMRYoHok7QYNwD05x75/lt2cAFgAZkjHv4SL9wsghIwnyAhu2/ yteHwiXuxuHNMrBsDX5hdG2kXAD6R/MYOwwR+ 8ODzPmShEjygGYhpqxOT8GbbqkYIUPQDZRjXr3gLicfgthsKLcf/2+0uuQyUYVzZQrJ85OdAeitRZzz/ zcT9VBuLcJctrXJlBZnSt8TRnPzXmCpiT3GtDmzUZHaR+PxJCKh7KxD5fIxosOIeqS+ wyg101fqCOLPcDx1hmTKw5RlD1qkJt3LI7p3/MW833GH+ aZ0jxYd6WnkDA34zSm7ezytB44VCrzemuz4HRRF0ppHNhXpeil0J52EpmWC1DDJ0bCqPEPQpCPrILYUR k /HehLYMf4FdXwJsqVDzOm03AQCGL8iJmxCQTspGCI2wZrLuCLY8D4MurQ1wDvo2AcJzoPw+ 68vN9Vha6x6z+g8mcgqyFSuXpiB3crcA2afZkwtkvWymRl0ikmLWxiBjD9jz0qIxuqbc9++ y8kfgbkTheCah66SniOxg7Nquqa8DvqNkqcoYKoFnshs7bgCSvmlr6mUiRU8t8vpsCHe57ACXXWyMZFB oRDDtaYebiU2ezVswnqLV2FnfdQAybPHUEuUK1RRhhmLGJsp +2t1srZ2/AIKH+BvA8t/4f+FGg/3YRc0dxmOX/hJtYnOl+ YROYuOuL87p45bFGo3eNpNNRStgErfQf2af3L54q/Jl2at1h+ HxEI9A7rPaXoYHYW4tpy4u1cpBztF3vkc0bQ+54VqudtZvYfuo35RNNY4aEJbW/HPGYeN+ WTnOOjimrLvraz+XN69/xsQueND8uqmObOAGYaobJ0N5izKFSemgwbeSfq0CrRh8e/ Rv8zM597FkCqlpzw/azTMr2QQ6k8x17qX77SRR8uPBucPIB1LDHBstDQ4YxnuMXbHPjy/Leq/G/ tNI7a7HVbT7CWVz6uxHi0PxvplEkDiNmbVtJjPN4pxI1wz3C48j7eqEwBokzrVqgS8eA9dSnbzVEumhv Q /tvUb+W5f1Y18q2tzg79hkYCVQcNwd71hbbKTwi5d1mVdiXk27xN6hZfx+ 3j5I3wK7h52HH14mdT6BcTyXcl69SDnvsVJJOCf15vvOeHo72mAo0duEeBSysEPochp4DkzjoVN0G5Ba 9NbLTW +y2FZ1ZxDTsYT4uj8100jQZgIdPyeJ+zqqQFedH1Lcta2x9pO/RM1k6ZuJvKbthB3ylhOVr+ uiVTyOSsuAbBSGDBhoxjlCyyflt1ycqmvrWW0OjAHnnzcC+ 6guygJmi336m8EG7Ft88q0A3natY0BrtJ43YFFuihMXkuCHcqTW8mnvewcELSCwl3Eifle8IjuxtI7fA N8jJieUuKrm8QqOMjPdPDe9K5UxxPQsKXP2iohmH0SGKG4F4PMKU9BSYttO /PPF/tPYaThH73q63XsKiM7ZCRymZX8qk4SDfoeU426t6/Kerry/gV6kooT9hyN7L+ kpnZ2rz3TnFjrfqVjcetputb9UrJEKdLGlajl2Lzu7sMgrj24p2S6j4UuttypUjdhETvBKzwofbEPa73 29LRGT04W8Yb4xh8NDq3ZF /Zn4k/t+hgJB0E3N+JLOG/1Oit4j0Gnb1Gfo5lOfGthNk0wNwOkf4yH2Zr6w439cnvnCtEK2Y4C1W/ AGjv2p/ nON9j7k2ymG1ChOEPqNBxGrnqKivZfyEne5gypcRvlpmIdVkhNnYBozIL3a2VdvW7a78kIZdL0JxMdk8 K67a +BlDXbV2jp5KiRgaAlbx2ibY3m3LZ9CnD6+zjfcr9thQ6j+EE8W/ Ns80lKnqH5w00Kq8zg4L0tkAnvTELhK7tDN4VHLWC+MF6Esxg9Y3OlwRmo3K+ JzJWx2stq1vqp9cfGgy5L+N16r25Dy6w7nY2BlikhdmowuzP3lk7Hk/ L5HjEYe7ejmGkVWeEtWcezE0eDj2CkoMTGtI+x5GqUlzC0o98PmadGHKa+be/ZvRp8tcTL14M+H/ OKPhKdTHnnzLFoGaUwX9C6N0X4qHSMw0LuvClNLCudNaMUel8eHUODgzj9P2zrq80+Nnxw/aB/ DbdNes5848h9WpAXtckpU45meen/E44h2Ha1lhFUa9x1uFv3dbSphNm2OwuH2zKElX9tc6cpXtVk/AP/ CMYer1bp6mVqG/ hqmLFr8q8ppfI6wf17KafuOYal4hNfpT9jPqivWA18uVldeuoW53qdVzkG74yxg7yhHPlj7Z9siMWkKt wElc5ZVmiJTydFlzpwjvPdPlQyDk /aEijaL5+HHwPOfaaJ9VcRKcq30req9H4N+FZVq5TX47xDz39VVY5/cLD1doOLHKjL+nLZG/ FhmSS6XqeQZUY95ZXp2PcXRY3kkHlTaPyHrN7bz1tso6+aUovmdrqKqPXfcyw/BQHUNgDkK6r+ Uay575V5kUK6gLDjdp2spEdGMI1nhgxtrTRCgKh5xo9SOs+tvwN/ tTUZlOYSbu3e8g0c7M1evXdK86cxcgwlzy42gB1so9jPY+ucbAeoQUhOVYEs21ubx9q+xVA3lekqLa0/ wCCj/sF6KoTvNwiTmb2uvb49jmlhziVqJzI0ZFbzss1f/ Dh7wzioiKx9uM3S4ajvSSnsnjGYzoBcHxaa6HvFZpb3UxHae3D8++gSN4M4ugbmzcbw1FgP5P/ rqpDX5gXxdL/ k2btQKG2wFV4XjoGjJ4p0ykK59B9rexPBcvhtN9bBITyQWpqGi8XvnJaxnQp9ptjvDXRWFu+ 04CjUE8FDorh7qSyea1DsD/1iHEK4u8DAngOe3Rxh8R0Yhto4PS1M6XYd/a1E5dilg/6qdzo2KA4HZ1/ eo+syr08L0dUv5a3Bqtz8Or2n0X+5x2B5ARwnbO7CsoQ7P7/ FVcs9k5nCDXr9qyCudFO8fceJ90G4xtmpBBfpWTRza5vDqdX4fi9rm5tb+37/oAY1Cw8h+ CMxzcqyo4CvPa5rrAeE4zQoBvk1NuyEx2sV3KBdH1sbnX5trAa1X9rUUDX7Hj3h/PW/ Y86voFV35R0rmPpsXoJsigc6J0l1gRB91d8ESiFLUDYmE3Qphtf3S0y5Szpzado29CUXACbEwSC+ fJ0Gt8ylaaPf7e6Y/jA9bi9dl/1DQdOsBbvp+mmBsw3zR/H7I2mmuNaMRpQylKYO23dX8cwfOqI/ hNWgZHn5vG+uS2rgRcRUv8yM7nAYwwpda10x42xzcQUBx258N+O4o+j7/ZFeUcszF4+ ntnPeOa3uZCLLRVtNbdiO1uVz8nPWiMc7FdmYbewiZOno/tU/zONm8bG/CR7knhnXdsS9IkpsisxdKMZ +a2D/ L3n7omnt9cuCjmGSL4e4ydnyCMtFvuUhVnjBm6V1tvYHx7N84A9GvzZ6mQhUrtn7JGHnx2QRzY6rI2Mi 4MP8VQbeX1nrP1bxIz8PmtxAA9xhhFYg71wrQz +z9Lt/KD2Vf41BBeF+YSrR6LTNGdCFdtMXusVLIboI4tmSpmjsjHb+tTC0lOFdVHmyv1ltEc9+ dRogotgeKkmmaNNFtB1QsBR7h9FT8peWCnTG5AOHM84l21YS+q0d9e5+OVuBcywterTmlUSqfuqtJ8/ LCzeKwTD6J73ykXlxdoW+zGQfilmpJnc8TO2336WTqVOsy0G+e2U18EMh+SiBrxCedZF5ffqaFN2+ R2WtDC7h+Gnm85VemdcliP6uO/a3LwcrLdJ7+ NvSYzWlngeXaX5rNmnfgsjY6oM2JpTkijRkZValxF4ErSD6mjZ3mAiE1k3H6vda2hNj2slk4oDcqci1H gCkOJlLyr6QHyYQ80ztT /Nvizxpbtq/ omAIBw0nnnEZEvHx9q8gxWT9G59N8fWw6pJw4osp8MhGNaQjCSrtD0uCqMBHZ2qrRyMyx23sf1qi81mm da9Q4F9Fm3W3ONWInbartGaeDDnRGZ99C22589dE /P2tgN9AGt2E6fVtneUOXJvA8d4gb1tk4xny5fB5d5w1eafhfl093yW7xkZYr16Tjwbbdzku/ zt36bdd1+ j38ntpuoZmmrqlSOdUR9Oel62PlTOT8BZ215VNRU7ewYTCPrsdHCCkH80rVfy1d94oT6cosU18rnC1KP pvWxYHkKx75IzQOKtZr309L5aencqhs5SbWK8Dp3j84YoFnvoMK2MlqeK40nXkU5KxLwV7G0xWE3HGsI mHAO8BqypWaQFxBb49dovxbd8u4jgrvrIxxozkOys tyzysl1PvCI27+yiynyxir1436nNp0mqHxtYwJ5K2CPJZMr7EhjHfedMvBK5d5E1TB4QaQ7l8u+NLq+/ xBOR3gbLwuvZs1DHSBCdtvdKBz87WuPgh6C/nW+f82wSGNqhuXOTTv0Y3k+LOt+ G3Khzl67akl4kxZVx7d5zgpjqQ6D1CUHIAZMPE7DPFhPTeG8fJ7kbt1iGC/ P8wz5D1HxU9vB2vQ1b7VTBnfBJbienaq7UfMSkNlpraz5vl7Ffbwfqks3XTN9wji4fnLMm7jZPeZqc9j Nxotlpd / uYaN8p71tLK4a2vOT2IHTEwv0qYSf7HeXxAwQ5ncU8VDxuIJBe7jQ0Yo2zAPkmt1K0BTCDd58Wh2acN9 vrpufm / ByVPWYN0MXwE08EwNKltBy0pVQxXnrtSafnITSb80RbKyXBMVQ7gGb4k5NhsFVdzVY794pDZmtHvnnvY qqZeAcG8KSfBXjZKTM3XeNEUk1Lc +xeA/J5y8AqFpArdVimCY1hl6Q+6gbRRTECl1DkXJ8SKuli0RxG3Xv4HYjfwfrYMJqwDKQfYm7qSt1x+ Hb/AMYaC+p+F7+5nCELOIkkxA8kAnmH3XBMPbfD3dsBkePHEiZrDSDjllRfWlh7G/ AFxNoxiOtWezjjQj1NrjsHEr1jn8zLm9mt41WP/Uri+ rY061K9tXBXz8q4VoFF2PTXVurWncQKJ3FjrFF266G/KSa69U5O2DzAKbxlRJtCd+ 8Mt67zo8GAEf1qrVJ1F+qa3/DE4JxKjudx6qw7celfrbGDk2Wco2+ wywvyXV1ebBA72R5yVfYLXpgPzx28R0b5Hog8heEokyCBuXhZ+MksqeF/ P0mXeI27IytfYMCESp39UqkhQ4jUn6Tnj6jg9o9hqsr7M6oh1fnTMm0chUggjxit43XnnZRw5uzfOFGr 4dPt /N8O2+x5bfzPG27/TYFgmE8dzxZVNIwawSfHG1tOkcD4K/s/a34n1u/UuJl45sezVAxh/ qYKtPutfCz9Bm8gozxVAn7cceQuNKOpQATUwXzd3ltCj8UAvpbKR/ BwVliom4Kttbx3RhW3IbQ13V8DBOnwgm9HplRbDWsSRIzD6nlo70pJdjCnZo6qKXz/ H9VtFkDNpDd56ys8dXdQRz3Kz2Xuzal28QeKoOQ72tYN290C/ T5Yv2y64nnVUORWebrnt0px5QlIqSVlANJBBIoZT8HUF1igfgGjJUgubtAWLFWcL01BVirmELygSYFz2 s +rwIKSZZoZ8Ljd2XnMQ3jF0lHli+y0fQqayl+ O4ucuyTlWYEIkfAILmI4l2hyChilgKyrdrcVocAvAyzgQ3dciJVR1RBHTa9cgGFUULYudiW5XK3YTyuT m5mtjZ19loa50yd51h /X96C0bZMZtozbYycB4BCuolpmxcaHOaJeNhbcr29c5bsU7r5qyy0FImoWJecm8y/ SH7arlCtqwnJGGwsqHB6L+ MyLKEc7Pn73Ur9kq3bRPUBI9r0A0DdlCJx5ABk2gRxWdXhZXeI2H93j82Suc2Qb1h7ZpZkTXXLRdyEt4 KTxGcZ4P6SABnyjStZnIRCNMtCIwV6Eb71yfxhR4V56j7v5nRdm43yLySK9b /YbesLoXFL38OIrILemIH8M3xhu071grx43fPY3S6TH3tIF5GB/36+ nl7WbfAafAtTK8HwvjAXmuiKYft2mXEz5ITV4vO9XTqYOhapEkoiLWmxsjZccZlWhlex4iPX67NUYEYh kEw0fjlZz6Udub0ogvkuHqESSj3l9vQHFBsMCIUseJgCjoHNZmI2mAYTQgs /ynpPRsY9HwDFw8leDOXIWPCJQ2rIdhtkEGz63FSLk+W17N+V/G1ihyTF43Ab7rL/G/6cqcev0+ hqdt5fKzyDOJJMTsuTJFgK7EayWxY01ck7DA+ 1NaDsfiPnvEVNjrJWuFuW6tvPHbiHdQVGjnrBXEWCtq5x25dvKydC8aAdqHw6GaogBP+ HoXJiGVFzdVVtYuRUFrxAnQoqQXSQd3imH/ ppmm234exAPV3Ls9hnDYkSEzjzYa1xdKDCYIGPCnz86ldb528t4lszrj0nR9vuonczWa8dqdKAoyy3Vr fCK5hkFFBbi3b09f8bs30BbaZE6yX92RDhnY8uesUUplq2xngOPpyWFNCex9dLeJCbdoY593w9qadnbi 9im974tEBWNbqeBe6jER Vm0rba9NoD9ddT+ 6cfkqK9qQeoSCXna6fvMP5PbkEm1I1GdFY2ERXDafxSdXskdIa2tS6tuozAGr5LzOUglrJPIy9ULdQe8 xIadTCihtrC4IfFCop1Wad8ce541AgWytTAslbTOX7gE0oQ /CYUUivxcLIdwBaAJ5zkutipfj3bluA+znXdWqa7CE2zn2ptw9y39tzl+siA8Z6Bx4TEYBqGh+ NiJKVLcKFICZItQb5WGTwSQrF6ku7xI8a8n5k8g2t9oDu+M/8Yi11Hv2+ ondsqIMGJA9fL0dUOy6LTEqooGDlA0cngsnoQVBsuD5ySuKaes4YSAJWY3yvN4AA2q21nstSNqyqpUWd VmUCKuTe90dfEmS +r/GL+IpG7LkK+C5Ab4TQq6tQoNTLN8a9YtPeUGwnvDEWWUcPKyn90sz3Y/ WGWqKijlw0x59uW5Kqo90xUwQ143hFpDap2elE0DgRUh+xHVG4GtDVKg3IxNWb0vEP8AwBrKasjCMXf/ pZ+nl+Pv8ItjV1dQJLb0XcJv42lqEgsomamppb1aa+ QGedipX562WxEgU9ZWxyokuRKoBzEYy0WG07cyigubV3A8M/dXcfsSW1KNcKO8d+ 1zIjTSNKfZfCXxjsJrsaY/hye7+ a6RfkEnHyJpNfCPfO9kdXbOXmjuY3BzIdqSiybmSTHMUuG9Jb7ZuvtrlFKuQvTdO/ vOrZ9BiVswo295zcBkQr3twta9ghlg1uofa6lWqGGWBZC2HMp6Md8NzJ/EVscZ5gg32kO+ 3LqNsQVsp7gyQfHEaZu8lcFAsikyF0uZcdlR68pJN28OsplVI4gdLm2yvbc445d3z+x+ lvyCFPfRdwV4sBgDBs4ZE8U1r4liybOzb+ oKiPDp4Gf3q7tt08w5xZKKs0wEi8axuOuaRpSnCBcjsJ9publRvqp2pDVkP/yh1HfXx25t0JLZDLFr+ iBxOTArSfoUVqT0LcF2JuyGCdqDpC3GtMcsoy+/YgZXz+SfwM+N/ w3kAgfaffUwAlci3zg4k8KEqxgL7CYmDSS2x7Wq3WwyQPH2rtS+ZU8pj+j/ iA2z7MrCvrDUarkDzOqaVWKW7/ rPGfH5DpFuiO096DeEYMW1u1cO4hYpL5n5t5etTWcgf0dFwcgyODoncoTjAL5rB7jTg9bNhQke13cwfp SyQx4iIvVT8ZH8gDiDmMJcngnZWvLA0nOicERrXpf7Ik9n +kbGLwTvqQjOmZ9EUkfM4SK8ktVUbLQ7g1QbWlqCyiPiDZGL3rt4IF/eQQ4J6fLXNIs+ VjP0NY3XhcCmIEVjDf3D5JlgKAlXJ8UE6afkBhTqDoWusSbrH2eqqANyFzoORzl2y612zT7sqkeBo+ ags5xGcE4MGoHHIt3lydaaEf1v2egaA6YZEbt1S0e5yaycM9+ t3itizS4B8vkCJl8Gyq6RydtHlf5he4yiV1oORJIRKGvN48CblzigiCH44kG0kh63G404nUvFUDJpYMb bwb7bxxX0o3v8hEYWnv9ymRt7Q +zBqppLie4W+2EQoouxYGstAuIAFpKXVfyJiCAHAKHWfRIpaoYArWH0DeJx1LPH3fppw6Bu3+ XUQ3cVrrfOBCAMctPfEU7LLBiCkQvMTyuPXQM/ md9bI23qcVoMTOxew4t6r3e735IocwdHnOIu6m9Y962Pm1vivlVz5fWEZ3Q4w69b11lDsRp010ji/ aZ74enO1z2S930ouptdhdfRnE8HNJVY6Un8Yf4YiDtCoPi9QPNb6xUppUfrhp2sfUTNm9/CimnjGWPt7 /Twin+bKbp4DD96/z8ZQL1xy5jT6W1mpgurYBexddUadlkEggcMGtrHmFdvbkqrlZJ/k0VIS+eACP8+ 8ZNdken0B/mov7F0+ bgBoE1h584nsmwbaX1Cq7ayzEGtw6auQQAlfgOjzv4Yoh6G3ghme4f1nH9SrGaf1MaxjFN5qnsgit0BC SMMskNv0STqx5cA7gDh0fzyvBpybvlmsxhN3Xu0iL9fcHhiMViAqtDZkExGesMiua2GpVjIsU24MYEZ1 kZMRGgCaItAUvOHBjdopJNTV48kcAQaikKAn87hnhm /GONZALEZ/S3Qi+u13uktprZGjdjeN9ZjL/CYPBMNG8F16q/kGAswppYYFWz83B/V9xz9OVPwQj0qkyjfy+ hN39KlVKUGL+p2HtdHZoEYGOz1ohrjjoucZNjgM7FO73tSE4HjASgeKq/ NqotTrvLHRh1XX3SBVRaXAdQBzmtPaYEMKoyDVIHsX8iJMvGXz87XuLNwVczecBD3aOp3PfcJAaEjbkE onNuUezVl1qYq04MGJp8ez3IgpJlULK6cIcYa30MDTQv6fzZxu9OQekyVzuiT +1JosrLY+RfO7ITbQlTSGL6bTWKyHdS98jWNg0IMLKHj2j3WrlDxDY5PnZjBdg183W+I7Fb7w/ eObp5ErDLhykptokQdK0vj8/7m60+ZwmHt7+ 7unJRpnZRyVspnMrwHIzLFTTJlNFhptfDktxgoPlTTjAh9iIrv/ rQ46sBjDvW2E4dP2Q5lDmCyv82y8sd0dXBj8RJrZGB0jSVhBLphNzOzJ1r68YlAdTGRXCXKZVbssq4uW qliEtNZXTpTfrGF + 3H0WmKB3BfSoyjnwXAd9fPiBa1ePVQ4kHgcGDvjMyCl6yQ2iDbHNQZQOGnJrkOzk6CHSBMhwYNNBASH4 eopSZqjRTRYCljlDgQQlsQvSsRGeFUStXca5lbgYoB2A /tdeIdHhtLPxxpq+A3YUzv9eAGl29WdIgq359s75nS5bOBWKQxxp/6RFIWo9bGi4Om+vHTbwh9L+ X8TUlywOcc59jPNkW1/s/IXYYdKqV9UnIgpMGKV9xArhXHSaCExVnWNgS0LsgxNZM5oxecSJFMOq9ND/ b72dGbIN2mXkdl7yPYi1JYo44gpUDls0Y0GlncFU4trI/ v6UqXpFdn7t25tDie1ZgurdBBN5UdWkWhLnM8UJDVsMVXoa15lpAgGXjx367VZsIBjwoNkSiTQakNYtM D5v36gxLoIG8L /ZqyDlyk6FbadMLnz7UOkoK3WS+ GNroINgTsdYwhgb71kbTRPpcZfjAu51DnxbjhAvTu2cXOVBuTWTI2DuzJ/vll8gc1fqg/ EwNyi00tpcM1uoroyyp84IaV+O4llnrzadpbZLXbYDVpgzu3Qvy1AbhRAFFgJiIfkg75LOkJu/ DIqqgF4YhGoMoyDYlPGFlF0C03dYFpIDANrPMG5qEFDAMHPKOYWonFSXMXjIVZrvcT8FR4swA6ppmX14 zBELNPNehtsU9tFZLV9oBD26uypn767x1xnRmQ2pd3rdO /2Q9coqCsknu0LAisYSegopgXlym6QRvlzFrVUhXvPhrP+cs09eUEpUhKTb2AZ+ NrgdyqpE2XciktiWUdWIb8NDkMbH7KyhtZyvNL9CTaWy7xVaOM98bdmZZ/KzloHfJPHmL2nRdxPA7Z+ DCmZM01r9Tg+jso35Mb94pCc70ScK+qav/ bnVrHwqg5dHY9TtOHQXOuMMolIVkI1szkRjT25MnyhCDSGiHJTqbZZSoRRVnViGAhUgW+ VZOu6J39gigyPktSNv+Zw9ifkIeuupzuytilcnl/Pqid5Y01vdNp5jr6Ahzx/ 48D0ATUkhn4VWQTQTCc3xSOiFQAWqFY+OD2+k5L0uAu/Rd16zcUbR887fKup/eH8jtuvEVVEic/yz+ nma29clFBemm9/FMZaX2d8/f63/dAMCyChSCwBkBuKTT1ICuGgB0yMRDeB3ujon/ b7O6GSXI6oGun5O4lakmfMDlraSA0+BMJ7NF0BxuoxXHFJgaW4zBqx8oRmH7C3ZWowRj+ yYinCUZpaGALRBuz0iBYf89wH+717W7+X59Odgj57Gb9F1xp/ XLEz4zbeUlwdfFtSYL0XnxKGSUVVUMV5mQaOONYHOmNKXKzqSINWWnUPyrBtsFhZ8fsydh3ZhFufs9Pv dJPhJi6eThLoZXCVZ3ug3wuibKIdiWLCkD /tZBnhicTaCqvt8Ueo9MIVgq8wjljrALvgo68/fliws42k8mxuvTz/ CvNGkRdmGENqo0tdTRPCMhsfRqGimbWuKKKVXLwZGuoWWjijxFfvHXsSpfgjBn7ve5FGikJdQZ2SzDGe AZNQnLF77xvPSrPcUQOpQtlVAGSQmkiXVAnVSMmAkoUXI2Aeqd3VppaQUfJcDNnB0eLuUWnW8D7 /U9JSpvmez/Yjr3cf0L7+ yuPWWvyKKYkIfIpA21uWXKTINu5qTVxOUDnO6w3gUSEmk2NPSxWQtt3jag66NqnbEGNteAFfiSKH7msH ixk +YnDFgxk+mksJibamE5h0KvSRGFQiFSoVfKkXxHzZmgNHAmVyUkWZFVS9rvGPa5GCF2Mp/ae/9X0uLS+ sv4i04lLb9pvWiMkhWHpqvNrmx5fVlYRpJ7pcMsGXIS0+ dVe0bIVhVt5lDHSKtqQrEQ9bTUhJc6ZYzgwYNxVF6o9L+ WncI7fvqVeLFCSkfksY12mz3FgPIbYjiIOLqH4Ipx5duuS7za8eAYcRabEv+ 8uBuKKqdHv3wUXDcrhDqDqweR3RjO4yk2C6czocz4u+ umcLK5UO6qSWHH4mJuER7XbyLN4GT4tpXeMY88kt2e4ZDxP8TbuFV7wIOIEUykClbBdBWoTWIc/ nREAsBpu5P0O0A1m53ILMG0DG4khr0s0jgHUOvIf3GP7z9yV4YwP1WLZU19IKZWefC8DFyxTBxySMBN3 eWm20sl59u6Hr +e+m2k90q5M40rza9GxV6ThuuJs6vjsoDP7k3FmMA2/e+ N1SDwviLz701T0aIe9O9Pt73DtZzMABm4rdQDXadgrR+ LLncolCXBnHbi5oUkqHB9axY2bhw0KMs22rEi9n4A4Qek9MFdEs1EFfJDREJXymEEztSSdtE8BQPgeoa GSuv3olPmm7I0 /L/hnubW18/L5d/FxdPp8wfU6HZndcg2XkzwQ3rR4lDOQFGAwPQghfRv/ D6znCshQ1SeDDLfjJ3vdnA0bBOOBl0ARNbHZiWPOuOZV0u2fWFFOaeVLjc+UkOXcMOUkwQAske+ LhDvv4brbFrG6FoB7AZulZLQK5rAvlGZcFCc0kNOmjdbGXZZD9GbViZQrgbFtf61b5FfvjlqxWX238Cz oA80kfkez3AMqgMg7IpQgQkgyjaaX5wbVnPV + NrTU3DcgFUgvbXyNTCMecTcBaBDAPvmLtu6Rjd0Kd0RjaRqjSkyjU4OcgZmCMvZRTJg9GTjMPr8uMpbZ 4xgGuWZRt83pO7MDa6OLOqZZu7amn2pahy0s /BeHOniguR3c+04Jnnt7mqL+3He/iuVFtjhVN8jjZ79KmjuXy2r+w4HKMyzduELKXLWnb++ d5j8rJBFdPwuRAN9BtkRXdanVu9AfkKXwO2mq80sXSbTnzGioQn6auQSyAUwylgqUstjq6pgciyVu/ 5Xa8xJGdEKVkNoKjEtHWR3VN6w5PyhmzNPE5yC1rfVQIhKPOlJJ3lEwlXkX583Ie8BzWwdrW9oYUHa9R Id8v4vIHKtQ0u8 /I6jY0lF6ksij09537Wae+R/ FH2GVDc8CmK0l9SPmWwtI3NiTIDr9USN9wlUECP54rdQckOtov8I0YcKTtpgNz9bpPlrBrf+nyF+ nzz0y0GeyUPFYU6Uj7QAypWjPpw/hawAeK1LF6sbzDwvzyKEoY5ofAtnIfmr4iF9PxTt4xgs4tnFUC/ elfe+7C51x445Nl3j1CK6eZu3WCvRwZf5Hrq8hIeLIGKE+3NK2OBToZB0bsEm+ 6tDJao64pUTATQLJ1WwEIQIC8p3vLnoyRFRHaxQ0xUnP3g0iOQK9KO9mlrP3OGhHi5Yp6XyCgUDU93xO DlW3JMFwXE3fCocAl3frfpnjDo3ynOWhLrqbcJU51ZmvSyupU2ehhDZANUww7a4ZUNyRvhYiry0vWyy6 OyzhAmoi2UtejLZTUhcVwqFyE8dqVHdkCo335LvW4KR6v 3OdoWpy85ExzevbHhBSiLVU9JoQmUUuIaMi0sg76KnSV5+EN4HjR3NXfdjz3b2i+D/ oIjSKAo7cJ2k6fCZYJqzlNWhUMx3UlFWzMmgIICatNMM5tiK5oS8eYbJ2OIZkYiqlbIW1AwEaezKDfLm 02lINeXSYhIZi3qj3KvqfiOkEb1u96wit4yYifDLdSX73oeHFce943xvgBeH0OZHkW0Oh +LkH0/ Xz4jIzJtscYqphHj39rLkMYyx9GJFXO0b2jof8H6O3PJiJzAu90uTx7AviPxC75I6faHjAJDwOXNKYjw La /ZPb/PBqd0C8e4715D6gYk7TIY8mlMPCJ4kWPz9t/EEuzzSAVaw0Wm9pfVgeW4CHhGN0dy6xECVQ+ iOkEKS8QNvvXKk3DjMKykFjUaWPw+blzEhqf9guYsnDju+rJ7VV2i2VdaG/rpdejT/O3k1Ddiq08HU2/ G/k55wXqqPNoYQ05uypGuoLI0eA+ qiHhAD0o9iGtFdhbXbvjl6TOGUYBE4isGt06VORo14DCsQJpC5Xe9BOyuPlhXHGtaAstysOLqWvUHyvM eJPMJBkaNN5 + nWgeXFOvDo7YBDBboQW6V9144MQhw7KNNT0miBaVcEc1Xd951iVEEwbd8lBM7mmPYxZFPw1psC3Bzz15 6eDtg5ib18wzYyzqV8wxMGpwYaoqNpLV3Hdt5e15DIjj2eiCecpcqngOpEHWk6ev1v7lsFnUYO9SGpJj xxkeL +VbiHT4IqsLjZjOy0ZJGR6hcsvn6Gsnw888msf6JF6lXs4cedArGAQanugReM8lKTlJVUF/ z8QavX7vN8xShhfJ1uDtrDxspaIblBG022HjIRjNUxR2yezVhr3zF24z9tiglOLXU00kc0ZxmdsULgXE pkTLPI + PdoX2wLohPW3pBZItSUljGNh8y5MtuqP0Oz76wqWec5PG3qKPWfLwugtd5WlihQIfqjReq0m0yrt148J vZR4d0QkaGKdMV2PVUP3Pq +2OVZGilmlD+h9xkTd7lrWCuqY9Sy+ Ausymjquiw87yR0DwFikAacokMTqBaiLVQAb3KWmGhmLWTqK2W78i+ x1dWNYwN2NGEM2kdh3fwxzSBLkSm3XFOxMKr4jMeVxkjm/RMqMbTCpt920E/TwntWPDwG5DML8SH/ NN8f3N1wQA7WRgAFo0YKpCNYipUy4t6ikt909S6Thuitgxx9reBnTzrXjnEAvFyPvjueZHG6dx7J/ OI059w31G3OxZOZgTseDdKhsTe2sABMd4nkJLT1vbjo+MfGeg/ OjssyrmpLejg1Q1zYyoN8cl5C3koFehebDB5IejNjd6G4JlKOHiBTN1kvsY1qznB/wf/aW/ at8FYLezrNkZ52+Gg+EtH0+EMGuxCOhhxsWSmtUz8hoAZEI1bIyXLB5G3KaoBtqx7UcLZylPI1H/an/ yL9AsQ1Y56QqKS+nXU1Dchy4z1J7mKMOqhqLhNDtwhxuVw+YQd91zMV9jkPbc2MHFJeZ+aXxC/yZ269E /9G6HUoLg2nFiQHKNcw7agk7ZH2Af7XnDxFHtt8sb/cVcUrLaGIu5GEo/ dB5HX9ah9QOfhq29boruqF3qfqnRZV0b2rM5QqgKo5uBsKZdTp3UV+ AN7Lv9hbFkQZYcssi0CclIu7UXzuAlFrn3K0CF9tVEmEq93uhh6KHwTjDFmbH5qC2mOG4xHyCd2LFfPD 4gLZVUHqM1v / cK3C0O0f5pL41F37e5JbwkMscL3rpfoIXltrYAfnkysENjzaKBEJTmEN8rO3WvnEfCl75UhbqRnzhrlM jw0N9LLWbhrAM2rz3AM9assx4HLAeWy1lMUjplRUPIZdiWaPfx6g4D5i8v0ADm533PnsTqNDPrsgPBwT GbkRgDz7pnC9ao qFZIgsS+OfkDqtdCG9IQUSV+a+ l33yPO06b6EhZr4fQd2SFI9zP4is19ZsdyTDJqtvYZZxrZMnTGODSdr7VCvx6GAVpp+ e8t7SqiL1YeCZe6oiaZ46N7DN9GnflvHJPhzmU9ro8wmChGgxhprC/sUHxt5aAE94qzAqGdXcqFAkm4k /h/ qM6I1QmXEod2I28isyITZUjRGQDi5955M4oitIGsCjlzArmKkAgqfclNgPThw37hRY7P8GTtbJbktZu+ 0992E1DGCvLVgyr7glfvpeGPqvkTHGc3STzC0D7mA1DLPSfhNa+GN0F6cGyVfAa0+ vyuJaTdpBTQRvR1apstX7phS8gR4Saos3rfynyt69+W+ vW31OREHWr8G0x5wi1yI5po41A4Kr7wyIfJwSv7UVJK16znetNNUJ4IGkvQIbtPEDvQrAe+o+GXwO8S/ nLLDFvWcDyeh1Y8oF+TD8lggbhF1o0ls0/fqAu4N7q8jvySz6zFgrDeB1KubRywvq5BZtXkf9x8M7T+ W94B2dJGa3tdCkrdzwn5M91+5Z7Ty3QJjyIsrC3lM6/6CobdGg06RgPvwbvEmb+QbTSft+oi10+ dbNViZcmgOkBW8MTHBlcuyhvr0su2nJTpVbrgnU3HBDAv5434myJOTazRz91ZMsp2z5tS/ wa3g970iFV2zmQZCBOC9pRQSC6L4jFfXqufsQVgZrjJg1iaQKDn5VACfi62aEKjxKEjl6gxv49ZvbvuE aygKyH0aVDj8DQSfUbTrbUDQwjmDD6vlJ6KH4HI9GoTN1Lj /zc1FCLqnJ+PipAe60u52Nmc+3+ WGwIvKo1oaw9ZCBcxOUyeO9a8uEPif1dabYtcCqmdH5NJxAHvGalSfQCYi+a14pVcWjlzEC5g/gW/wR+ OvxyMWUbs5F94nnLw9P49iMOhqTrXsBLvK3WuF1z2lVfMCUd7fmPhDY0hcR5kDdtMmxgkxEbXGV4jg+ Sr+C++PyvZcR9c3YwGY/k3OfB2oHa443M7a3j84DDOggX1I+S+zrBByjc2TAnsCNPFR+ cylXKUGeertPAYI58bJz77/kDQi2bh5k+ HLns9or6tPncg0JtYTy60UvV600DAqP7QxtVEs30vNMDClbOl4u5GqSesyYjrHAAJg7JwihcwBLdf+ kEgFDTOG6uiKx8mEL3lzs9sLallmGCYrn60VP3dT0cdPcINFWpmaRu97CPrUYkUvENQZDwYf6T3Xfou8 lR4Zr3MgmIdlzf4eyM44T3n6k3kd7JH8lUopiOmz1hX1c0m8vRkgyfPxAUKDVMgxMV7nMyEzMUVJQZ74 Y +Zfeg4A6CfLyrptfxztbZ0MnAaNQlnJupKzZDu6c+gfREJxJg31P0zEsMTotfExThpm0+Feh/ Qyiu92fgP47snMMp3Nw6fpNg9b6O4X/j+dIjND5CfzFfUsJHImDBgOduiELa8mcg6V/3Ulzx0Ksw+ Wntu8s4u8wn1G5T+PsN41D0c0Swj3P1Il2B7CK9FvPkF+Dr+ JQKwXqzcwHQcP4i42QxdwZ5pRFIBZCA96Karq3mHiAQzqWEkSBDEZLZYWLfnJscxhXwDSv1r55bpFtmT YSh /iXBn5CbLKfrZRk0krWsPAqO3SBxv2TrR3lRO7skwua0AJ6w+VE+KGl+IoOzSbJ2W47QmrzLuC+ swvKKcBf1Knu7E6d9DLjfYgczhfIPY3P3T/DJpvynCTq9tt3TwrADFy01/ xHPw6qj6ksoqP5mdLL7vsd2dQhE0dz+kcIcux6cM0AWCrE94l4Jz/ie0MP2Uakk6IwBTizUml+HcXi8/ NLW1s09QD/Uz634es9W/tFl4BzdwU3hxTI6wwbQbezAmfThqSpAd6X5m0Fh+CNXwe+ K3b4wfWurd0dfx1X+MSq2HiG6p9F3xg2XzErIAuNId4KgyJX9LFNTrS0f2Ro/vNKjj/dAJ451iyXgC/ lJkiFiarZpSoF2twNS+dq/ eufb0EiY7vPsLkrnx7a57xeDEHzT9dtHMk0s5bfCgyCrIQP2oO4Zz3aAw6GysQ2wWlVZggJlUkLlwvgu BOrd2PQn0gfw8ReMY4z1hful80lLu6f +kiU4EW10Lh9QNcD0rGKhwbxvvtT8B+UFytneztCBDqE/m/XYnJkkfHjyiFvlE97+ i6HRajqFGGYiF0h5zV7lhcTWzh5oG9ocZ26uB2q8Wa48XAT9y8zlB1H/0P/Bb/ysL5AzsJ+kD5gs3u2/ iH1yRseAtNag3OrD37/kSqjN6w6e87nhajqpbLt2xr8KnS9NIofuglQEyVsk8Iqjt5w81D2Uczy+ NDub3w1I+ Io6urqn5FPnp86kxCKcNm6F1wbe1IPEWili4rgx2fLKSQsFHzlbwojmzBxn1lS13n3g6e5RZQmt1jz9c CdNJtyb /QU1Ulg4lc3EXbmX+ 8I32RA1kxbWhW6kuKM8ESleA9RTuXlBQzKcgXp33e43tRrMEHFAgXa7s46zeJRKs3QYpk+ cO1Qk2HJcqbrE5V+M4frJq9WlGMdc+GfE/l29u+ oxoKgHTxctdirMGGILsgNwvP1ldqKVGcL8imoHcd0Lutd66B1D8L7InXP7ge6R4ZoTU8NdfZRG4TjICA MMdkyadUmjC3sCGIeR93SZamrT3wnobLjqtkTq +79Ksg8l1s35NoWUv0nheMvs3blhR9Hv9BfzlxULN5qfpmoQZpcrf+bbf2vOSx+fo9/pk8cVs/ yEzL2KZ5p7r4qN6T3J/AAC+Pb3Or/HF28Xij28LILc7n9A7jly6d6s8DgxBl8qyCLLjqpHYkbIyEq1fu /A8k0lOcArAdN33I5BfwPpdxi8PCr46RWs3WyXA6IUo2shl5BpxocAoKr2sj7fB7AzNtxFpf9EfRK/ 2mXNEUEsVm6LZLuYC4GCiOGWBOc/fYeMcy57z+ iQgVLtD9zepwzupAcwtAJRluU8qKIUWa2jMnhclrNUgOXxmrcHA8+ STUduU2X642PKvFX7s6cx3lGvJxx6MfjUqYP7siksXRmdqudZQO5tUipUmHTPP6xMJbs9kxedGeF+ a3x54nLn3aXmDs1Q4ppq/t+/3L30UQ83IzmNut14hc6jNVIMdLs7AdP5gYnJjU/SoKuY78vLIvmPyS+ ozW+icixnuEO6I5weQmvkJkK3Rr6keUkYXMCGOPnMzgCwGa08zbROfHadG3F0e09Y+ yg6Gnocf5kvVReejTcIp5Yus89eTm9tGK0/mvn4m+ nMblMrC31nWPXCFdtAzyFpMkKU4wJjLccdrWdaIM3Bz2dXXxNKkNuEccv+r+ GP1ZibT8t68LlXmo9xMjlv7gmqv6ks2WziilMJbt5k6swFtw0r2zYY6v8RlksIF3WltWXX9Jv7QcwDQ3 qVuMgCdbetaz0U38p91bgthBnQligJpNkA3HhbGVChER1j8z2gei6 /vv3A16d3rfvobrRzMi+ lI3NzBpZCpqIrjLDqctSp2kfeAFH2livnQiQDgEnuRkAT3i0mvnBoU2ne73bQn0F9Smr5bkNJHVfThs8 UZtn3M19yoZMVT37AD3tzVyDa5k7Ukzfh25FqzNQbmeNjE3doo +pv7xyzJRtSQYH24ZC3NXJIQJxO8k7EwI/ sTARDn3qspfCyrprKaL33e9kzWfD1usiHJeX8G9kEzsNO4xOPencqFs+qqGeOore15n/1a3GUr3Dn/ ag9Xv71g9/2uXz9mzbKSyehm6A7yPEi86wf0F0QD/dbgPNdWtkXvEqFn2uP8hHhGd+FtR1x9+ gXQ4qaD8d9e3kfongkpsZWjMK43kJR6xZfa8yM16OACylAkItS4FgmqaiM7l771q8on+mnRNb+ Fb5NgvsQzG1mtm5J4YAzznA0oUwJpRF3OCu2vLlu2czU025pVrBlTc1CS/ XNrJG9Vc4N87ebqqYMTOvljdaJY6suE+1eZ/oGHbduFbC0tEZDmx3G/ LA0eEuvNQlGc4zpmAaWuKTY2OyWmxE9wThKQtEVeQToxA8omJcq60kLVKbm0BlpChOe7yQNAbm9ia9m7 vmcwBTKwPyloIGnz2BAW1HpcQmhZLvTNO9eGLH7zjkQMs8VsQ3A7AxgQ3zm4SPVQm9MA6lNgjIgi1n2a vi8bVbMY4IzvLil3S4lSwIWRyBewJbgtzvNKD0mQ9czp4i /yn4jEIRke1D9tiFmmw7S3wZ4dc7Z3fa3elaEP5m8/ FO20qJleK3n5FmA5euGrccg7UYsYzW7oFRUV3UsFUdhKfrib4qTFDHxRm6u7+bDtdFEj1+3/ NRZnRRJ8w/hSylehMUBwPicfEhEf6VzvaZnEm07OO6tvgWo7wdtmAdJK8U1EMN3mEXoeTqrF+Fs/ dgfun8VRiO1csVz0xfSbtDxyBc7dsj1Z4r5gDjfyX0a8h1G5ddnsPByxXeqXq9e/UZj6PTC+ m5rizNSZAwcJIR397pLNI0iTJpJeyHSs9+ IC1CI7dIVdr4VgJmU3XV1VK43ZJ4oOlbBZIdcFCzUuAoqGqbpM1N4CmedlQm99si/ WVSSccU69sOoCioUkA5cIcXNNUZthvebI3DOQA4VgMM9fh+u+ ptK2G74JzM2U9cUKCSpZIECVHBXaBPWybyN05iVoSmIERg6ePwCdgb3RnqZVZmvFw2oATeyMXxLvtimW PTpgeQ /S873sU6i5jW6z2injpcJ+y+ XiPjsKI4oBTN02sBbqnX0cp7QMHzCFB0xAvmIuajJz4MeWRy0zGj4idWS0EqDga8oes4Xi0u4bf+ Cw4VAo3btQbDj80zOrGFotl2Hiskqg7Eg+ NGtGJeKEPoItUqW8jkZ1L618pmJU4to423SG9TftUrzA4rUHcfDyUwUFPrik477h4EB4eAzahJRL3R2f KcI4LiAK1ChYXRZ6sLBLxldUjrep0tuu8hCoT5JZwKWQay1NLk0BiK3S0lTYBdUGUQFIBuc3cnP90soh vS8QwLzacn3WbDQVn8MYnyLSL10rPYj1oT3id248i1zPsk9 /029ZmZMYGqk2U3veJc6z32GhNQ+ Ok556w8BMduk0eKYOGK08tXcj2r3A1dheY1a2ZIHOvMpHJLLzeqTpIU7hp1UJzqKY8edvOKfpZBwBMv0 jMzyJEwClQwEkas /7lwEJO4yd2q9axpcwTUkVomDZLwiDgGvYxm448BEFindUtZpz5+obL9z9EcBet+ Ve6bPabwpo742XdYoB2dkjzWVzh3C4GTI80piwlh3H3D9oxSqGaueHmyhtSwV6AQk+60+ pup70M3bQRzkocGjoo3bA/y9DGkGxnMDCzzYqFt5yi9jfNGXJ9NKWDV7jJzpCpTMSe/tnSRzeN2fh+ DTJkqJ20XpGq8irkhKzo5t6RMPMJQHGGQEl4nszgIYJO+ MvVuOOSxSJpymdxgmBlkFxRn6yOaIjhSoADcP+ymJA6/ jxFxi8hgE4iMOGKxglBbODY2ous3w3FqbE6XPhWRKhwkyhJkCtjckpMspoBXjmWSlpPlY3FPwUSSaC9x DXVp12BsRbNtf9y7rTp18SULRULgoHuEnLQhMzpTEtvvds65Rman7iOL9CnKB4kqKfNX5g9uJHeQNzIY 7Igxm2MeOzhi9HIlAE RkPwdPvPUwXRE81d9hPO7PKEx0j4zkHB9j0L3/7HYliBhwnx5kPOM1P4EcRmcmawYyc7zBZRC04gNRh+ 4wY6Lz9MlQmxZvbggd4DQGQBeADrW03ERYa7QseL3hvD5X0cbxOd2Ovvi4PIVzzW7BlPRcBQdfC+ 6TEN6Hle6j1VvSHr5AkMaIIezZ3j7YdqyvZ27lOHGKAU6wUbqHgnfKkWF4hGmXXznzWV5XhkekDNS6fS srTIgns0JQz0w0wngaUcku6e8yk7YR52wEZNNpleUtSQxSsArOtAhwIkG198t +v9b4kF9e58rbXkhlD2ZSL/hviPWtVc3hn3oCcf3ki51lUlsezUmLEDEZYV3MD4lKHqogDJq+ DqIn3W2z8Nw5Xzjz+T48FkAsDz+INS1G+Z3cBm0MB30Es5j2poArhMD9hkVU7wlf8EcNcdHRfG1W+ qTVwic5vd2fhz4vfhKq5vv1nC7FkWGvHoYLcMgkbaw+0RTXUkizSRrLdrKkBhWCIlxWFaX/ jnKFfd6M1F2IvuGJ1ND2Wg+Uv8AfA15M8zT3Q3wIqj8slpZ9+ mpcYL20Yss12f8afaHuCXRX6VypbjzoeZ1H50vhqdap6064m26vKQKXkEmVmrvxYPIakuMdRWS8QbPF8 FOsWZlq5CCRU + z19k7tmhqbmiTnpTdRtP0oErAXv32tvkYagLWh2MEm2PRcVQUithRWPQRGxbG9N3QQsqaUI23YJdfqqs Ns7WnDyIY2GnXaI /saR3/ tcempaFhpK6wtTGeQQTYX6euklb5rjkXinw9syeIwE6IAfsBEfaklErjbOHplQtSj67NFPMcVOeCNZR6 UgimLzKz +eSIe5v2kye0M0+k8TYBUcIrN3hqr8TIxMYmybvt9zPV6e4yLtX61i7FQdLQJFNWSYuy8CCMlUc+ QQ4ENbqyPEkukk8C380hZ23w2so6NFRgv6Yu4D0tcwvn8UbMuL7usj+ Tm3mvGc8JAiQvzMHuT9c2N1AZlPiTtKvJmltyFgRljSob0Bvi8V8YuFz749B5lyQX3kwtbUfWUJsn4u9 S /uVAcbo6NdQqpuFIbdskZu3jJQd8sISR4iDtFJtmy/ P6ghgmkZcz0BpeWIykKq748nVsUjdn1o6tgfqmXBF6GI3FHh7PDJbS9pI73E4j2rjvoqA1d0NNO2duNL cEng5VklDJ1qqXRk9KBqDJBfvinRb8vt13YBW1VynyVgGaL3IJ99yx4m17rG3R +Qz/GnFgkScuH468G5JYtXUS5lq010Tvv8lLVuyfd02l5e/OFw1f8W6d8Z7eX+HdWnK+Ofbdd201+ ELqc7SV225Oozu+ mOKaYLshKwQZR1GNw4rT4rb3V2tCwCTvCy2yhpjIa5ATff1CZe7jmqqy8GMjsE3Qo3XAGFlEmtC2FxA5 pNIs3AEqSN4m506JOqafhdECpGKRu3i6enM8wDukKOoQ /tF9wLmXI/cIv90sGl1Jv0KvRDvY2tJ7mqnsqDa0nsJF3Jzcba+Yj+ CB0LVrbTKC9pQeiMhtOFHk6OQsggnBdqOvPf2Ceh5nvkIiRHg41uO+ x17teJcZJ3lCJV3h7aHYvtn3pwUNbG8x0w2bVvMazzvpxapOAzqQ1vts7lgvXrAJyPT45LQ1NWNzVVlp p + fcP46Jyb4gtzeHx6zPb315nkB30gTKMawWHELBYBuyaRSdfCPxQo6V1Srl1EjjkwheVx6At4b5b4wXfS l9TzvHJ6HLmLDGErhzMLOcJUCxY +Lgrv9U1NfKn2dIiaW1gDdMzOUT1jp/ YuozkDHSxtncPJKatzShLHMgIHZhk85FaSzXiOv4QPQLIhBCHaAxvz3H1fhyOh+ hfpNUPWdWDd4hFR6Ta3jrEyWrnIy41pVKfTnILaNz5T62/ hwsnP3fIV75FhoQ4mI0ggu6mRIkVJjsNZwtDfIpDB+p4yem1Ih76zCWqH+wy5ZnKRDRCx1oUzlHuYxsW +/LoKCuKsd4X1Tto54HLKpTNaYsSGimd/tT/GExWoEUbVdux4thA5cyAvXh/ cymoeuBC2huMvVKbxBfJnExr5gRaDKwuD6g7ygNPxx2ptk3nO/0ev0iuwkp8PbvxI/ ZLNjPeyOceApHpilmMrjpFPkvpC40io0Ys7Huwe93H8HQZgJewRIxik+ 78rgzUBneSRK0ZfTW0QdGPqsp14/M2MofheneQtlg/fFkdsc1nFGHOLPxvNQw8SwKVCgbWDGYF+ KaBPdxPt2caZD4hATwPb2UQF133oSzQAg3SlfWNbIqgcuZKQrLxmo0JeQJNNV5Mm4ZDC8szMZdSNbIzg dIfHiYaaMQVwtFsHfzvleI8WwkBawb4Leoq7p9RaYU34iNPTeC837jPzgQ5530hKcaMNboF8d +evTj6+0F0K5mSLtJpiKj17BuSHrQbupZcWdXdHU9egyk1Iz1C1abexZIDeCLsIu+v3AZn8buY+ fNQ3jdx0Y5kIr+BT3Cb1graQDHUgOAqoMAdXzFqor+ 9VFSQ4LUXnBYYtXMF9vNFdHIHUGBBcNgffddJX19B2CtAI8PEBGSo9qJ+ C7bFmQRFol0LBWGxodH6n9BBT0D8xAqCflHbHFA1bKCmWQAuo4r2bPTzRBgDbVvVltR62p7aoni0bZqU mh2GSjrgrqmWbqqCxh1KhZ7 + Nah773pVEkPrZNOkZdwtjMRJw7PguZU7eKGdDAHxKpL4NLXXkT2XuoetlPD8RIhWu5Sdi6rfOOJlp1bh V /l+Stex+nJAqe8UKS87d/ 7Vkvrft1EkX8wu5EKaas0MMGoQjccVEX9qrwmjewFKc1FtPmoMO9wzqc1CVGU2D38b2zHzfwchVzDDkd S0ZstDMq3NLU1kHwWxR +zd10OPEqUNQsf3qaxEg8GTFyxKf77zX745o/ gCCRukcxmkyBGc6uK89ulbAbscxPLF2F4T60VpTyFS4Is1pl4vJ2McJH8wJN9PldYuhRFEG2rNvqR/1/ G5wfd9ItXCil/J/M9Rdrn5IhnaC+ NxxGCY6KtftR8CAIYtOESGtDlyaDoRA9lwiIZWxmtjiqpMccMImclfcrG6bgJsav+ FW8usVfjbYIqE2o5+RVNt6hbdRpG9GjqkhTAdbZHKVCF1y1ZsgyZ15ky/ t8ex5j7b5rsTFxVvADucYTx9jf3A4aXUdcJSJNqZPsYXVClMp3lxthrmgbmjLld5cwM3d0zvH6IZ2r+ 21te2t/ Y2ZvtUpmOSXNEKUcC4ecZysAjpx8kI0DNPEGraZuWDSeeh07rPXxVUX2D4wMWMZmMDGVxoN1JAYNY8vB jkVSDvUcCa +srkjcAOSMwBY1pasi6k7bfKsGjopSFoV01Ue+ 5s3rlLDcjlONAy21FNDNPUjRiPwlrtiVOeVodBBAQzMIjjy6owMQX+ jWkQgn9G658zxo7eCFZ3wvYI65ycbX19SyuI5RRrDkxWKUcoPU7JgIFv6booS+ gYZP6JjtR4YaJgACaS8p9iH9VCeJ1FfFerUDuSUxfYlgjGuchXpe5pq3bGMggy4EFCuSlA8NegHkSGLw O0ejHtclTcJutVl8pRTmlY + euoRuw7ErDB7uzyAKdHVK1peaLLgjqv8BbPJ8cjb1ij2CxBJpSBAewB8Af6sTMC5Nh7vvviF3MskgcXU lZk4NZWfCjzSP4IGgGiyvzIjeBXrcQB4N4nMDK1Wv36uPzeLNka0mQOPSOwFeW95wIMWCJ9V /MDpuGzpCvj9M4+NmpkPCXWkQqVzNqPBfd7qtXu0bpsjUNQz9reOZHBwhL+ wGI8mNybVrVDkHwlMeNE4uE9VoXy96wPt+JbmhRmQS7s+KYWQZITYTHajWdfWxmmAwicdIzployB5fo+ L3wy/ak+KHw/mcsEJd1MQrz+ZCcWb5ONo7QsHRtokcwvN0YT/tARgcOnLA69POBcGnezjIr7aLu/ G91GfkTwZ20xUGhe0lzjv39bkHKSY/cpMVohg9UVBEkPB0Z6e0aDzAmTjqc9EhvOMooAoEeS7A+ 8MIb4jMsgPVZHuecxGeWvwDsAn2EsbbmKkeHuQ7rWimrGej2n0kbphxeF7zjsaTqIVFp4j6sVIaWWlww O4Dw83iLD9nZMOLa +dI+d4lAkXCjQ4ZUI8j88l7e/ DOqnARU8xSgheV76cquPctaUiccBJJdVYFkNQVQ5bcv7OeKyYTctcRODhoI32j3Oyk3Cfq/ sheJXXGsoXEAixaZxVxhGS7xWADZVwClKUEaQEvcOkOF1WAXooYfi3G5zEFw46ado3sYbEbCuQi6J0jn KmR6eSbsj9rc50cKVr0tB +qAjpZRbbK6SmCeFxukKSjqh3Xom0br34THmNuaeTMJrJNGSNuBXCQCJMw9/XZ64n16QyDp3o9+ WThFyzBizDHjArebplYqlMkz1XDrLFJ2qnEfBZZ8SNcHLKoH0y9GeacXxMaNyDiFV1Khfm/67vbyt/ dIdyiEN30GiKVjPhtj/2oPnU1sGRRVKbmWZzBH++ EMcCfzNK5TjYfeqsemYpEopvUCaDVE4tKYmF2K0eP3kXPoccezpa0Yikf9r9bZskDhoLlzoKDjO576xv G0NoKYrvUBxHHGkBwZYveT9Vf3qL3KRSPJ9bXNB0BrwaT7b7 /YZFYgdyn2pHrp3D/ z12gHOX5KWuk50gloiXRkcebxBG3bkCFrjCUKhotyTJbeWxdH0RJYHpHk4S2tfRdHMTPZGZnbtHF9KCI cysFvXNCVYeWOaQBCeSKSNb2wtrR451JzuLY5mtV8FGVawxEQIeCzZWsF2EbmIEm /j9kJyjbk53J06A6kg5jkwqiwPDZAGlV/ wKZ9HlUJBeqrpaqIDIstBywdPGnKyXhkWsQdgRu0sYNlHUtEunpyLGSuLBVYT2MlmQgqGkKZ37Z8PU+ 9hOgtLNzcZNZKRzrZUCBieZCKkWOLxhGYYWGilqrAfQ3KhkAyLb+ HAdA1yEt4wtt5pm3e6mzy76tWz2tXkzoyKVmuBp5nlNAyB8US0SsBfqYJWWDNFFDRxxkuL6yjFEcyCer KRNqUULPNANEowOPRzNBcDoxwM4pWWAABbwqLLVtnMkZreEVWlMfQWSj4KDgzzByw5JYFU93MF0QvyKQ Owc4IREot87hlcfRutUb7be3q7M54YQn /wAVt0/0OusdAXZqfLfhb5nmQJqmpncKQYn45QXcilxjdTUW2w+WMLg+WMqASpDEKybNwIYgOBu+ AYTitBqEYNdwxUKyCkPCwMS7ly6ZatX1EXHdC7mnTBcpiNZv2FmvZYY5ZGaDh6hR3OIdIzBYg3c4iXGf CTGqaas /x80xErw2/TZwigo553hona49oE1nYaSXVhDBZCJCOEfJcMG4+/Id4CHA+6yPW13xJVAbv0alIf+ 9UaTdeBqtk4mCHetZTwk/ EFit9Mr4XrSWANUnB1bFPqKG0yZWFD4nYiLbfcioqtlWY7zccLV9AFcLzDktCBYODiWQWZJeqZpE4pyN oCawdifs3fTq6 /SmaE2KtuczYrm3b+ UeYD9pPIS2ujinE3PppAJlfFeHdPmqWBei2kblDZJJVyT0S6thYAaLACTuWJwPPbMpQUa7INPHj5ACGD bgx7C /MCn5Zcp1NGZNAQMzUFjElrDI6Shuz9zU6Yrqb6PFOC3lkeQYOJYTGZ3hGvZ/ vwMCUXYLHa7hfRQcNxoFaPe3h72hfl958b5+T0Eagd6n4fyvKNx1Fp54x78nLKlFV/ NlD2xNty4taEgkx9mNqDAfcQ1XkQALffKXXjTJhbc6MtiTgbqq9SjTyhKq1hYOlhVxr6JkA2iSZ8IEiE TjxWJdEr5TlnbLxALTUzSwdJNUBLrvCT1EgA2oBCTJJMdLJPlkJT7PzonhF6SBCXHRai1DGvZNDG7SHm uX79mjU /S/y+a/ V350LrIVvOLH5qKfyeYdVS4eHXivNUCT2haUlVPSddyZHA9fcqdAACSWf25RcPSQXs56wT4kEMMvuMCJ IHSAMsmIN2o3cRRxMD1QUNHPFxdSfkUd3aGUkvfsLjxvO1E1ZqlJhWMvi9vFtBQ +1X6IogqUVOXNFYMbbBQ3hXVzLzdoo0f55ejpr0FSrZQj11pGl2q7I5vzz71z4icwzubg/ G5JZcxeL1Tprp2WCh9Vs8MxsPzCemcABFzA18ZSjGlF22YY6pM7wq/ fmof0V0FFrVgnIIaDPPfPW0wsrbxckiv+aNCSFRmlePAUF/vKGJQ/ YvO1F0lYfjwRJvlgkfMxtUmWxntuDn+1rXJopp9m3mi4+j9Er0RBYka62/JPe/T/AIFj4D/aiu0m+ EQbUTAtIJwsWxQfwvK9PM8+kaRkVxqDtagrYp4Xx1BC4w/pf+ gKehw3nxmVCspTE7UmZyAesXpuLxnXeJZBN2qXgDUUYPEB/Kx779y6a7lGgCNkGwvdVr/ xYnQQkhz5XoHoGq4yyGTp28Qr1RO5HTzD57/ kwiXqPg3EzgIMHnGYSNErJO9YqqdVt5SYnjNHxPOPkJSL2+SvUlezd/l97+ wbn55xU7tHM4ST3h6emfm3f2PbKw+fSr6+ iU2vCxFghcc7bjX15WlnJqmSRZc0RJfvKbKqsMRb8Fq8rRvm3NJ4AYE09tTHRfAigEYmm1cZJvH1Syok BOPcVeIgfmWesl9yoSsvEUQofNPQM9anDjrC9WeRc1z94Tz6ZFtollDQWpeRN0y9tD3yawa5fyG2mfqx sSysozeNWE60QrXld162Z6ZkE9PqFKxPM1HmTM5T89g5Dave952vw+km4C7Qedi+ 3irSPuDjn99JhVULVH18N4jCvUtvh9L1U1CYBXdK1pl8E0uIuySkSgnGqvBql52TiPqG9ediMHOPSZMO CARTWRIGHT + doFxXD8qPOfadg08kIo1ZpUil9aOhUTBFriZlXbsUqZIVRtcWj2Gvsfg7As6hngOY5eurlZHkupTcOeI MO8uTkqXwjxs /bjrUJsXi51iOmmvptgY+/A9lQ5w4T3wqLv/ rknuFkQ8BWzv38L6ZatJWXREzpT7QcOYUCHtEUGP4MNpvIiJl5KFm9sPBUMQ5ltKTyN6AhFv/ VkBjU0qWJaYGPq4CHRdbrrOP53NYGpQWMDwcstsScxNIdpifS6UcC/ AStAhPha8TjJp95Hef8LePoLnI2klD+vFVi6VBW0nMHZ6Nqc1CP6WRE+ u087W0Kpk0pV0V6aksr8syzkUApKSzfyTkiOKPAEIADGrn15qZyKYyaAyE076cal3taNzSd1ot7ik3A5 fh02vc78aFkuXCF + 8nNKmcPmzvzDvaciKKgUNwPeqGszc9K3btdIWOlv2PcANukCrHdCEdCMboEFxrdBmPdByDu0zKWYeeFA lADEITsDsBuZELyAKWK / eCyvvPSXUFxO2V2IHQFMtUUmyKK1xXxmUQMsn9w0zChkJc9atEGy73OomWFduQ5m2FbvYxDJgyxzOWrm UNIwSV1KBH7VGKGxXcfeIwxS5uHQGtRBFKZrpNzQtWh758AYyMasS4YaRrFdu8rNiGjqp02SmtB76m5l MAmpf0klBeUlkgf6kgNm7ovOXEGqguvU1Yeuxke5PvGCBQTktJHdbC10j53eeop +y960j0ttIhO3qnfd0qbHGD1jq9z+ gaUfIvZa5Hxi8J9zCavA0pGqxOX1X6psdSglFfZTsLiXh6I64s5JJ6KMmNfKz5fYNGraUg2WZpwDHAZn WpXO5rEP9Atrbkj6kI / Emwjc7pruRSGM5qmF8skjXKGKRI47C0UUO1LH2vUGOXLspPnCnp4wwwJYnpN1H5cGbs9fcj5RCE2Caa0 DkzvTozkZomLgeiJj284FiM7fl9sjiFcc /p+g256qBznTeKTfr14SoA4T5+Am2f0Si9fF7OkRPsSevANQ2Y1Q1w/Chas+1/ AkPoCR6Tn9YZqZvGiOupdVleo5f01bSfTLdjFNqcriA2wwZk0orSua6XDU5btXaV+ TbWbEckroK1uAy36O2kphE7oxo99CrMh1wEc42pr2DVMkEKFzY8syz58bZ3vtfnhG6e6qrayNe3vqcy2 C4HVnRunoMZntt4hu0l /l54w/q00Ubzno8n/LavvXEV1bBxTRkbLt/ iq4shx0gGmE61BjIaZygIQWu5itv1jB01GF7wFwN0hyEoLM+ lfokkSgeHYiuZJyhc9jqcrFafv2piqzSM7ycJTCzTK9ymIDEJe8vbNFcNLmKfo0zGrzp0Cv3t1qdTNIK nzNRP07 /aJ/hN9OlMeZlKi2gTYJOePvtr1K6Q/DzSr+1W/ iIIXIXwG63X6op0rdQkFiNkMD42BLDuGUVsIrj995aerJ+Rydv1veB12Ymm3LkZv3/rkMMltp+ lF3sc1ZTHnpUTj5WzzqxDBI5xMEQNhzeO/ ixfsg2i3BvrBIDwPp7BRtm8wvE63a41htZA4CL9nfQv3UmS6FPNFgOojlTz6Ot9rUZS1141+L/ tP04C0R0+5KIiqwnKDt4FETFTPseW3H0opYf3XfIRD06jGl4Sw3DIv+BdUxQo16HX4vizPk/ bzt04rve2J66N41jibQIX9Qp4PTsKKy08qmdQ30vEsrZa/bEGxVk6BN/FuNuyy3NuzIxSaB09+ VSxRXPgf95papvucr2MxgvPgnB61p2yqzBCzxmqYHfwMoziAx17rJRZ9b8m+JPjh8Y/ XyxHVouq5TbbSIJu0ZPLt9fgtvqrNlxZ3xkuUsKPfgA5XAKW7aL5hwDdZubu08Ax3MsHr7668tOQV3Af FpvN5qhi /jv3KaDzrwIznZHsjrlaUzXdxppejGhmO60jLlMXTTfjY5Xojd1senpVqbjlhMEzZk/xA8W+ YQcvm2ceq5v47W26V/Z5Sk+x54a7zX5emKT1l0/ 8v3xecIxPlg5vPuDAwwq2Kz09BhWTXF4I1konx3kMi+3eY35NsquK8ruci+js0Hd93SkAjIqoX/ MdGzRDwCDJfkMHkET2Ad+XbyNWu3HCy1ciq2XgPEv/ VFI1oFRDP3hpS06gOkCmExCE1wXvOXxAKUG9HpLWErIhmOHjblKyf0HurKQv2Ger8/ ohUO42hT0oupBUcFL4KPENXQoYbcKPMLLZp1lcqpVXvc4jMrOCDmXxOhQARz29WZ1ceOlWVodYwtOvOv n61Jy8j9tm1SWNwzDRmT20Ex4m0xLo2yYiWjbpurBs1YCCwoVl /8YzNzs6QwC75AXi6SMN8TwxdisIPwxXa79pjvvAWGEHaIiUQ72prEdudpPbBH/3LLdNNaWerfQaNo/ gpIWRrsuF5bvXg4t2m70l9j++O0c9ZGfu9iOf5FixjHeePgYUTIHZhAD0ri54/s2/ QmXwZdx496EBHyUBH5ACC+ptbpG5fsWUd2awIbXSsUdAuscIocA9agOVIiqsOpWwSN+ E9xgMh5mwGMq6U+SjuQQxu8aeMSxZvYzXHIaiLrh2zqI6qsI9xX9HB8pUr2bIluPExAaDgeskczw/ P54YL4P9M0u0L3gskos9164j+aNZy5baFflbp9r/ nzDzf7vtgur5Su8Hvzvo7F0hNAvMzBq0scYZUfk0g0ii3rTb71OngkaXYQ7Qiy79pDGyfYS6oxRSon0E ASIRw6QXSGADcoDoBWFqRoHgaV14K7ebJh1d7hvHe0qdbimYfwYUuPVpAdwP7NwysJLCLllJBAetEZhw PmBq9UG322 /Xdel7UtFlAXoiHwbkezNaue4nImsJ+28ojE3fK2sk0CMnonbxkZQnkq2e5y24q78QuIte+DfD/ EQ1nrlJ1wsry2CfBxiy8QV7e5ifSGBEG7abHjDjwONpnFcStuUegPD27orOqPk+ 4HaXIMhFfHA4qyix9gyTGmkv80A0wsa7HXaTVUuKIwjwxRuUCmdYFw94b2CdUhSttN2hYi1arCSZYi3V r6pK /hQIn7sTnYFZrQJ3iPcYGLOBjol8nGnBcn5GhM3qxHqBgDpkJpYIEymt7Qbzu+ avCXxm9tib9b3uZ5n27d1iAKNXkGQ9qTQcmuVyRkbMenCFHe/Y7/dwcz0pcDgNQfZbc4nQ4Ps7l/ UpM1Q2907n8gyzHvLIOKws1TfpMTheKX9qZtEFb1xWH1vULlAkgCG3Aa50lsBPMqytoKnzNs2juaI89C +OuhFJQhc3ALmvg58skPgtyujrMlnz4H3ijbLVK3p341WwYufH6gtq5z9M/ALVnxH+U6xGDhKXlfic+ EFy3x8oFSfI/tSKw0y/+0m+tblrLTr/ Xx7xcWMgimnxBdAkpRofZu4eYPz8SqQQHUIrZlkQvdDdczcsoCqOjPsHwgtVembkgrMjRJcrwHp8OBYC 2VOArhtJmt2HGlT0OvPnAp9Jn2x /pH+yX8b/Cn7L/AH9b7OpPaj10tcuTIc8I+NaM6NY97CvdRl+GLXVtYfSpdJvYJALCW+ 82DmqN7FtkZPujKQb4/v1+zh/wVU/ZJtfB1/7XRR6gq287S3JP6onvK4p9NV+t5db4l6Q2xwmpwH/ r0v3dsrcwrVLwvwMQY0X2dE7cNghKqMy/tamazight/Jy2n71f+Jr2+u/Degz+Nr/WdKtp/ IHh5GI59G3muwSy4ve5l+WhaFoFRqYkXD3dYsNgt64nZ54hRgtHbN7Ua7Fn2lSd/Efxq4T2xA3GtXrm+ KNI8G/T3APM4thEa1Vy6/ 9Cb0tmlplPwTLfeCRe5tLRE9pB8dFdZLgzQmjWiFOr9prz44gHM2XhGOKr5O1sD562XkIV0HlHSZhW1o E5R5s9n1t7WxemK34k8ey9CkaA1zkw4oFwWs24lq3RQUjfNw5ontjWSz2k6jn81g7wR +63xL+ 2Y2EcE1UvmNlSOWuKMrV8Y60a9Qn8LNSqafAZaU20P5b3cLCdF2jvM906R1jjgta8SajcjOeIT2wd+N+ B/6upfNV9himdDd+lhtUuLK+k05KHQempe9W1o2s2f6nDJwUw8nr5vlrZ5/rq3mzu0IoKOZDKtzcoF/ Yn/a1/WW2ByFNZlLxK5hz6B+WqEHeNPms5zUKjC9e9XKNL2Tig0Fz/ gaWljSseZia0q0Ooq2TQ80SatZ4m3KLy2v/qUqbh3IFdQkx1gqlQkWkF4pgna/NSA98KbF2uN18jwJ+ mSOPcERfxQEIr7WJF9dpJfkwKrMEgO+ kQfh5Nq6nR9DCztkB9MtdXb43KnTHgmrdTGd52xlwqabTusmme4StGoTSVVahSyT9CkiizzdDTjKqjzM WLXxleiSgNc4a8Ikwxn5DIqzWooMun +NOZo253yM8CIe+N3QaB9rCw+I4/4KwJHo7mRqo67tSroeBoTOdTsFUVSXaVwo6t4lsEQL/wJvB0fPir +R3h6OF7O4c9xbEn6ehw6OrlK7Xx/pBIVeDr7evdWHkkwBvwTNQs6HE4lf5AGMiAguM5R15n2o3ayw+ yhp7VoI8yrliR9KtJtuQRO5cHpP3rjkpZ38MCy8ciLx45cd53iIBTgHm7h5wQ2+ 242k5YQcgwxqIb7ye6EZGaVt4lMnc3T+MJ07/hGPiToF/svswB88u8V/9tRiVsfA2ov7uALg5NUwt+ dOmEtvvawvfa9nJPq3gSajCBNgmDxOLejQYTqc4qxROQR7xzKX8PN3einxNp5bnzW3trcG+ YnaxnPr5V70bBefuSYPOZKCY62DuFS9bP7ixwS7o20s8A+o0amT5WBiQ9ggq1u7AlqS0BgCVuHo+ CFm8Sj0cSx6M5BzC8Y5g3z0M64LvQv+pT8QC73z+0/XL2gi2W9HjKPbB3+ rglg60BMz3ybxBPLhsCpvjY3xylQqNt0pUzRa6db0fYt2A8Wz0bZtU+ aRO5rhyM6sr6a6kE9gkLJ3x1AbS62g+ 8gqkSs4xbPsfhio1v2Wb06BaM3wiBOZCzA3k4Czm0cTXhl4ojvjIuEu/R5bj+ 7b33vvYkAed5a7hlMts4MFRYsh7bosfrR5E/ee7k7vjTofQ/Kan+ HxS073FtbQJLaJ4lJc3LG5N9e3a45NE42CT+ ymmwC0O6QufeGcT1hMguAtWfLeWGu46g5eQ52Tuq1UTPiQOQJwOBUwvO40uj47v9g1E4LBxwiDbHKKRw byjeEqWuGQmvO1Uhnunaf5MHvIqRQbRxLoZ33Lz9z +JezveGtvOp3o3aqbc2ScY7Je1VTej/2zp/wqrfpjCv3vgxYG9NXyDt8/ wMCkORCiBMjWehngeKGXsN2fMdXpg/ JiDJFrpL544azdQPKaf3qerHlpHS3x9eBnhdMpeWlXRYzvWzGAiltkprtrnZ3y6kel9nm1nv9Y03+ 03M9luAzHFwhWzx6qj9CrsCsaK3485aA2v9XEpDW6rbX8jcybJlNuw9D6uQkWh2M1E+FPEun/ABL8E2/ kAjhnljj7K/ZXyw8RvHvKEA0zmdIgwTZ900B3lIkrxM3aULKMtvA+ NKmQ0d3TbzLj2ks12SaRkVilMcFidqiCpjXHte8rax67OhyfAH4bLycDFhBfbAOYy9vatIgNUWR2dUf2 wUwlSpm7hw4thRssyu4G5xjkjRusbFI + e56KSX5Rn1wp0kkkITe05eCrLD1yyBYLr6MxG0dyMjHdbwlE5Ouz6sVaWk5yHuhIo3n7HWTRT8vWVzyH yVcaXk6bHpuBkERimTTvzi7ewNpNz /bfD7R/ Kj8aigy1dPejGD8vaBKH88o89dxaKITqsN3qtotGbbqxEfSFMYgSHzxpGtV6PWcf5e1CZHsMxuvyvgXe P3l2V5qbShbEfwErUZIgCmTMNjT7D3L1dtchwCKGIOXIl7DaGhXAq23veL4n1a58rf3 + 907eY6qHuutFGEaba7XubAirIv0wLLr8OhmwCz413j1i5x3xLss44d4eol9wYZK5C2HgHkIwphQqjoAM BQpEdYKguKy0zuHYO21Ao +i+PAdE0f0Mi2cdnHOZTlGDFpktnI/I/pMLyumZVXC6z9VfRixnca9oD9CjkhF6ol2fHzsCFBi5Agj+ I4CC4ZabpnTE4M0gqbEqdtc9lsQz4+ qznkdYiWsvpkoEJsAwzye031zCC1VRpfF9f5enlqlbOeFMXVUn4lZunPbEAeGZDZQ51BqPc5E3G3KCAv K5hGt6ilgKqmT7x2q2w95fwuhG1wkPsmqmmiC5uAwCfLQpo9otkNY8HCzxlkcuvrIplRyB9lcr6p2Ogx fqM7t2YCQZ5uIL9Wua611c3n7cYSpBPWUFqnWWb4XBQ4WE2kWfGmvEUoSEwOn56B0V6peVdq /DGob1ZOfixPxILnJNpfcPkrWhcKvTvY4KZVmgNEasms1wiqbJlcG+yfETTPG+ t5irsMCyPqdixvayMJBrTZtrADmwpKWANXvogTAq3btjGxV2yYWIC+ D0tggyNQneCk9QsCqlxGe6K6fAZ4nZFDSEhmoziRjBLeAX69Ga02tFHvfLSovJw/ io0zDiuAch8Vko3q2kv9IGxGTiFak6xfUKa75UwB61Zth7pDPvLeR8aqXYYQ6KIs6N+RVq0ssDt/ DpFaeEyunnwG7Ci5Vvfd8G2rWa9jkgAAcbeircIRMlxPzksrmbe2zrG4L2S3Upt7S5BQIrRo5GsaPwak YyZUv3RZVaQb73pnUWsA1tsayDudWTIzehhiJMT0W2zgbo /wAPdS0/ NxX0RsEFLIRgbwtTROOf7K86DQH33J83yWQkeEv6j0hCrF4CdZIgN8eG6l4NEAss9QeKZIBICXdEDqV6 qLe /bdckZxrkkxb2lbP+adr9d0ynPbr6mLhnTK05rWp+xAcQRFFeWLjfWZgMxBVy0z1RHvO+ Me9Lpw0TqaIMcBkFU29fdKZ7WGKUu600DdxHMMxnb78bqf6iiEJDiu0pewAgA753eB1hbjaazm4axnHy Bx7WjXuASoQGCZeQCYoOrgHmEFBmuYCD8W9Jpx6R7kNjo1pv9Gc +Bv4KEYGAa0g6swXVjogQ1XTK5UA/ ufAwYyDXlbgSrwsta44ll3syjbAIa6msxy5HyV8x21Y4YJ10O0aFSdIuMEslKwbQzzirFbrKvzAOEL7s a4vnyCICp2ou2uv +Aa+NHioxlJ7K9/hD+v4DkNBlIx2buUx8OZRYtUPJc+ p0bZ8GuReyfVje4tdcU1kJNlDnPtG3oNUEjlUnzr4svV7akd827QGkaS5LSb3ZhIwQfjc6ZBzywKZpE4 dT6aQPEdwg2CxuoE84e5ntpE1Pj0bvY2LUIKuclYos +9KVvuM768uJY+1GDfX0LUCgjtVLjEXpSzmDsUAulA+6/DfjzT/ Yty6y2W15IQujGhEToewuCffHZFqIXK8wZJinSQSSHCUU/Ij4T/ I1wGaPf1zme67MNlRYle85dLyzOuMA1jgi+2rCQDGHmdTeRd2h2pv3ytyqM31+CNB/ 6VnOe5EaT4jtmeOU7zAY7FVyJex7cutyE267cxZsZSQqN2FLG1b9XNd8H8uR5jz3VCB4KRFjVhLHpNx8 kg3plo1V7 /ChGfBf3OxyJUQRGuVMkMvWTopClgz7ztsB23gXz5T1Yq62g4bPnuk7fOsQHOgxbWfayjovlrn+ QQzeZjIOQDqtTirCE4M7xTrZuB023gBx4d+ 1PNEFJIoyRgjUDw3fFDlMQYWKORibpvQIuJuFyC4RoRozYzije2WhWknaJtfAHZdNNGgMbTJwHXfebJq 5nHAzTzDN4 /iVp9u5m7THIvaOEOeu2imwVNuCGpO0BsSFUX1cAg8JwrZgDegZc707UKX+h56X82fbfV8/Hfsu7Z+ yu4BGlk0pv9X+4xaodajHqNkLbFBgCBgZEFWxEKvGGDkUAIEHFdtnVqSLlNo2fkyMo/ TgvdwdyZ8yIIHppMJPkisCv0RbIP2Q4t8ee8XOt87r3/ r3hSnYg9bSW5oL2VOmZzA3aKQAA1vFFwcqZXovGBlGHV1ajpBPZX35tm2EMlifniKTHyFTqIl2h9oWfi edZPUnSzP5pkdOes9soTE6EpQztrhj15M4VAh8zds6b7oc9Wy9tOnf75ihq62Suk11 +WNpR2Y9O+Db6+h5iGhWbDyh8VsM7WVhei3f6xW527RE6mZpGDrdVHtByoyOmSH/4s/ VJscedDuQz3rghg04idpv7si9+ b1dWmDTlCMVP6Wgf0NhonleLGmP3KqlVLHZDOH9sAkrg1rlKUiTPkKIbyp3cUQ3W096O9b2viazLhW20 upfcP9z7OYcMhbsQjAumMaf6JKutWrBcgqu +f8Ab/DbwtpGkPpl/CqJfcOx16osRgzfNjv30r980d0LKfh2AVNRgFEdprQy+ 5NFyuGf6YIaaQXb19jWtlRrV0nRV3h1C1qykx9hGO76y+ e4NQPw0dbTvXBWy5XfvJbCjrIHJdGmI7agIuv8aoh39FU/ yxWNk7N6rRaMS4Xq66dsWpaMol0l4nql4Mf11kGUFEt5nN5FK2X2LdlEXnuU0XE6jiUjo6V5ihYQVLSd AQI2G7fyXQ86t2q5Elfq1V5gZgvWfwZwxm9umokH3tXfeWGBcN5 / uvhs6Q6WvtLredfxYsGtxqURzlYk3aSUx2IUaZzqVYTQr4gFufajU1ftbkB8x62tDS6u6vGmglQ58FmM v7 /XcuKu4vEo72mAIzoYA6JlLSWFr3pliI3HALHxKvqzMlkQw5MzZAwOzMSs4aTzsptcCqx1s+ bPKqUSAWcrzN996MBqKvfp0lQq06oI+Ns6iChqzxaqgHCcT1spIc4iyU4Ct+SF0rpD0+ oYec1vyMcIYibJXQz1duVQfjugX9SrE79K5vnVh43Qw/fHStN0+ T6rnfgivyZrz89FOHgm5ghPUtfdg6lygalqGCP+1VYtDtTZ+ Cpe5OHa8dJX6UafKNgA4xiRUIDT9uRbQH6Qp5rIwpZ4ZHTsvnTmJECNXyi0us30Lkeo1H8Qe75t7e8og M58cS0hiBtacJeqteakOrEIKz2Z7kqpvBFdE5mOe0oRfsPEBGQrkO4pHygrIXX987fjMj4LobLt7F0m0 Nef5tNc +DXBYIBRQMmKqHrYwnAgQkAncTCdSFY9s3mvp8aqpk3ql91R4ag/LYq4IXYS4U1+ dipQY9Kcej1AUf5T9Ia7vI7HJ81jSbOceI7qoI1owRPn+rfCHxno/ tnOgAon3OARikDJ1IJqrqwW322jkd/oHkgRbhcN4IVya1cMSF3qSU0nuR3JtKtqS6C/noelle/ gk7vA7hYyTs0gvO+AEajSOvxNuINFFaoMBGMmvCMoxYublLZYkGd8c8T+E/ wDfT22TIom4In4EX9jOnWtA5jDzr6r4ckratyM5lk4sxc2qIFJJyA5v8J7kHdnPNxcLrh7uT64xPSwc7 lN9ujgMl0YqPhtEoyADiUXl9o8SN +pYyOeToVVOEU/ SwdjH9U8wQSeybY9xDPpkjd7qu4h5EpVfdvM97dO4q5I629LVbjDmm68aPdZAF8sKLAqWyQm58jYsd1n MnI4agt98CdB /dTxstu3M6djO5Jr/Tmd2D7e5jipf4M7reAq575Oopi9tG0zE6/dyQyR+HKgMs5fLaiyJRgyc+5+ LXgPwzo+llhkPuCtAXKISE7Vve+bW8dIHWNsHLeqIfi9DkawGD/ LFGViHrAphlJyzJ4HwNoufHsDcS6LN/JwVpPNnb0dgoSDqCbzGwT5R/fEx4oii2tnfPbpB4cx+ zkfaGJsApJToTmPau1eyS0XnGSf4N+ IDkdqZvjEiaJ2F3BUfBvOvd2kJdlbHcQnPnIpInsSzrKy0zClomwK9cdjfrltHBpgalye3i0nhQO4a76 m1zxTbI9tdhK50q +XQfxTlHyqY0uWSqA1bHJlcFTYOyjgT9Epq7d/ qp8y4yupgkCHxoSf6W1tGG4jCmGqXqV5pEODZ36CC8j1eH25zN6zh4yCB2ulfoClWjuqxWN6X+ OoARuuAmHe7Tp7+ 7p0gtM5d2pJo95RkkoilTgkFiGPZnW70hNDUBWCZyqUmvtg9g1cs1GJAY6fMt8eIHHlW6jac6oWhn4QO QnWg2uxF +yvKy4k+aeMikKkZyKGBN73iLwcRKJMorOaloKRTQRMChynv3qqRU+/U+ioV/ T6Ya0Qhzi3KVJKMEfunHk1jEuXxwRq6JTz8tyQkMHbbDkvLdsaqzYU/ FWvmKEheX7iy3dHj6cvsvts8G46BEsiV9xtnbrcyhSCN3F6wwjhrejcc/YOndMdH6N+ DcWsUT0lhgOEnDsCe0lpo4oqz5gyc5RNeRPjgwBuL5adOllSlyYn0mNNW4C1q58/ZV8F+ AAnYkXZjt6LSwRzYL2r32Bd9Ct5A4yhM09mPIR7MWYR7todPa8oiQLn4x+SS8IBn7+ TYkdr0kGeYpHZ8nOTamgbS9fYYpaEeefpR7gmJ46gYUtaHx6TkHhBMjftnvPHEG58FCoMwiEKNhtDUq1 uoiSUb4Un8l67uwtUeaobGK00fkPuYeft0wXKnh6tWhUEgalMpKskod +bn7PX+Dy+D/C+oK2o8P3ktJoj5pHs1le5wb9/ yd0wccUH1RJnbgsGXNoWqAEgxjW3QtsFeXPrliWP9F1KZdnzmoluDJJF8uZ2/ fORlB0Shh31dCdJMUakrXTkJuzRRlK+ UGIzNm2tSaKdxTPdFdFvUMX1tNSQwpuWWpIgVyicZYYdaIV2EzPIF5nFwzJUcTIFaOhBcsfQzC9WyhW5 dk1YoJCTILdgLwaxcSkD2ONuR8YD9N80Faecazk9zygfoOFcNpZYXOFQswhOOVaJiFCFf78NpfDaEZL9 6bkgfeV6DMBj8td5FaU4cVuDGIV7HqUgIlI2 WsIB2pmym6ocqmtcJ8awVLGlqyHyyvt3t8xKxPGYkfK+ vHAYLBKFIHgu20PofqivVlobob8XUTfXqiX6arnvV11saa6tR26LsJ2clAfecHec04sw5L7FX3QF0+n4 /G8729YgJKBoAAys3C9OFJFn3SdLWOhSMzEdoRmYBE5vUCAD4do/ RUAZx23kAf7T3wcCzdsJqFXDNbp1PiTtGqOAXZ1BgmyREyVUfQ4ehaQydn3WiikBbw9DUqbMBQa+ hkYGG8n6YXBmCNh5KId2VlK4itAoZHTomgBxsTvZhMyDvuktu2yiH9HRip5A0xTwd+ fP2xrvbT8TIbGiSd9JNWfDApSyHc9RqKALV7XZAXi1Hzttkesl0CXDIe6PurrQOZ2uqfKGNB4E9lBFrj blDbpqQj97602I16kRcanW +SIba436lcUfP43OKvalK049kWe6MbIOaVwX9wFa5DY33HQ/R/c/4w576w/4Ej+fP+0b2/ u0mvIn4F80nPDz4WogMGVJYg7jfW6umLexKUE3lYtTlCKOyR0kjXCmo2lZ313KPXPP6edIhIjduLGhEc v1y4tWQSNi8auEuoRD0OjLrgPDv85CTxq7qRAQjNwruFQyCcfHHiZBVCd1XrTK4ovpaOmhhPkN6tZoya 75fM4y2mS2Wq53DfJVgH1F2sPvOQwTtDsZMnUb /qLyDLhkuLYzuqmMREnI/y9CMqdr0eW/yvf+d1U8ed28iqjb2i/a/N7Q1TTFRtPN4/ 1Wf5Tltqgd0XWM33TQnfaK5xN6FbtOG3s0BFAURGiJZco96d3nzRAACG0Jvej7ho181evH0ayCr5m7pA ZXwCBtj0M6NdTSyS2O5TpzqchV7ypVi16DwPLs3D7NFsRWjSx3C9joGuQZNYyOGfJZ1MGgY0ESiwzHeZ Co8OPwyGvoJ2b5jltzI0ZEDAQy9gc3r3AbyS09S8cnkDmDVm1gjHMvnFfOCoaY0ay /m85ywQD950gi26KeQf+ cxt3vVAdxjnJS7Za6v8yULVVcniuAFpPXS0rqbULHNJad49hXSmCu1pWnU0oTjO7Ahb2rhMTunYJoN8t hUI6o3dEZ3k +RDSupl1P9h3C5ojuPm/KFg37g+i3SC/dtEa0xlkbt9SCBWgtNwyD4j+ IP350dUx3diqpdJhir0gDAOyqqcICoh4w1Vbz0Z/CRSKSnJlXgf3eTF1MAE4MyrggkS/ 6wBtDcVNrn1918C3uaUr2ihHjlE8Jj2Kv6yrbbF0nmWIk9eVtrQ/Rp6+YTTe7KCIT3/dXNlc21+ lHZnUOIJ9AEXifVWMlnNtRhH6TRxToh+ IRuNceVMA55LoV0S4mZyLCQ8f3RjApudDipPWNg5Eu2YTtpHQFD2A4GWpvWtIoku59Z1RNeG+ Fkl4H5FBc5d48IXzavk4i3rBy954qRhzgSFSLWXzEkdtmBYEtzrnmvCfAKGz0jlV0udCTJfXGVybnCFw AvMOnWVLKIGEsy8xD4XBMbzjrw7RDZ9Z9 +s6byqa0SW4rRERocrOQeyBFOKJoMGJOZ2FlrOvdbwufeBJ7YUIDRwHLIueGTXlMZhYK+ Rdq039yy3E3ozquubzg5sPq0KkcrMU0LkrIn7NLSxTFyVjbB3OdYAYfHgPEQbBhhzsMLnYis6JfHwD2C wE8YGHufsblBYTXdUKNqpytP4FY41Ja3kv3Ygzgpad4aQKzEN +RxtQQz3Y3T3+93/ rn9pdi6wZ3jgQFOxNqw7BBfO7JLF1Y664MX3yCYVRrIYVWtSZBPTTJhHaLxOkiMttttrqOeZfAbIwZi3 JgLronV4eBZcpbe7cAT0gFMd6eiPIKxoIf7u2yXR /kKEak2crV+0OgKjMi+Y3xt08TjrdVfjYLUpZF7OriIlEidLO6+ZOVXld0+WJ639fk6+ 3yp3eotRen9uM7aSz9h5e62nSD43O/C46oN1h/RvkCC9Be55q+FIDHEuia/ gorVhj4ovWiWEnIBdKe2Ho6gv7CrzjtBzQT8q4mGjbL6I/1P+EP7SXw++ XjE37LFlZz4WVri2Zli5VjqcDCWwKMzfzV2I8nZIuC880ethHUEZzIuPNA2Rl8KVwMSFY7P61aJR9hvW Y47Z6y9NYGXrDyB /XoUm3It6hhaMWLVCaKmNSc8H39q+c7r33OyEuaAvZ7c3zhA8azRwD+SRWwo/ WPBnDGPilvVb8oEMK4HRjGVX1SDlBljB4BWvg9jRcBqpN4hVUVPZAgd33FgSIs9MoHALsrdzwJBTGEdS 7h22zaHZcpmkf +svDkl5A/plu/ UhMIPiusxXpRvMzFNw4lPTxJbXQItZ2MTPbuUsBooq0qQkn3yon6AyCLyBvPUkPeeXVMExX8XEZDvz9t /XI8s8uX7t+slt12P84wuDGIRtOiIY1doaT4WejueDtgeksMnVQBNJfAFMt2FSiA7ppaf/ HC2HhUHca2QyUg9pw6fqHvnKAAaWRTQUvgv6OP04CcaYM3cO40gb+ BeMJfWMoBtZQ9oaVOUX5IW2ISXGICV1gkZtmEbRIZGlGCheIiv6/y7TRSxe6n8P/Go5qZLspg/ jWCpt1kwlBKylUnkngTb4zZ83g8CSM+c33Q7BPrNSoDEeLltC9YSv5cJNYeQ8QWHRCNAEPy5YyuwsrW+ RVyttTrO4ILnvPBHfSE9ZfFIuqiR3jRlFhToBUrcBNEUaKnIqyEYWpxZxAwCFyCCGzUgZsOEo2Ora9Sx UnUZKNmNfsMCjMOcEQEUeUB8Tj /Xdu/ik4eq3M021oE5+/4NDI9zoD0Y5dSPIX/ LYfTymKQ8DlsmYJMRb8b2Z1tiWVspVX66aWf66lJNsHbkinTtpVyVm8B3cRmFFanm2m1nd75sMWY/ dolMTFDJSCVN4gDQ3bLDHg7gzYQiIDXVct6ZDCIOUImwmWOSRNZSXeqhphpCjvthZlKMz720kWlloLs+ t90bHs0ir+isv8rBELyJ0mtVOJS5JJEhx3JvbzYC0nIZwwZQNPt0QDGGzSxp/ ab3bj3SvJR3jJYTYhQaEu4HraVQQHOM+toiquHA+my8ZUNI6WuAHkasEssDytDloT+ LiDcEv1FZyQbCaSuBKtOQLU5uadAPPi0nLqCFFu8+FydxjU7DI6z6Kq/4TsVV6fkIor+ nprvnVRwzVADxSlInOTKk6hevdtiiIVozATQopPlZBoCBsR4jhtPupUP7Z0kFD1pLQzugEgezPNyBIzA emSYel8riFquTV2VyHhFBdSbPAPTuCCCiJuOvoFEKbPynDH5Xpz9wGHCduZzXyMLLG6aivsYgBUhEBip L AREgTDq5jE40OgZ29p5tBL8Ec+ 52bYwde2ijymXJ0wXS9TOv7EOQ0auBv4MByndLBGp8tyDnbghCwlQ5DMG+ 8CEATLGEUTcModWZkCsSkaEOoUppWunIka+ Gf10CGKRBZeDiyl45Ea1wXH80FLVEUIEFMJ3GFSEIuleIfjUUAFXeeUXvlqLCg9ZlvKbpqrd/+G/ Az6Nvk1xAw10qg0ikxYv2TdmReSr6X2l0L8l8qphnJrcKZb5+1mGBLuSs+ 6pa8CPCOt87TYqLo0EpPzIDQTFVR9xz1KYEYaK00bmnheLVA0ySNRZlrQzGeq5aL3bDVYfySTzgsrvsT PgdgdpvlnrUkkIDyF65osr3CW0CDYRQPmco4xPEsR6e0ZWjIPnG6ixz4 /wVvw+whbnXA9L4qQW43+v+Rx1+Dbhw80pzAY0xUchajaVDLWrtAEWzqgo/ nuJfxPmL5ByveVVsL2oMSoBViyztSbLybHl0RDMY1oYy6EpZDhu2zet2fg49zFAMAnS9qFANV3RJDH+ TX5scXSXyKDC2UZ7fErrp+Scl8gXA48uavYeR74uOmQc6d0ONJQWQ9XmTwAKeDtm7uwaNchl9Gs+ qs1fb40DUR9mFdxq7p3CmV742aUduyDtnDgqsNJKKCP7Mr1DYUEgRIFVqxVMMjOmifZayP1enlGQZYGY X5zbe3nlbTzRyS + TVWHCDSlJFPYXAlcTOnlxLIRDDE6dyMlTGABdwGAIkcx4lgdmddEBWWynQUxrW8L9TusSKEDVQlTqqIg 3RSifI4IxtT +9Bucq97VRwr6wxpwj52096om+nXZ/8H/rrRE92RJgcHDdRZYUtKoZIWGCUALS6DXoePGJiQoGZHuFW+ kTMSUhaAxmJX5R4w0h77Hnnut+19wIxnYoyAoEmMk++ pPVwmGDFu48MSUF9VZQnK5rr48P5beFdyjvAVvdqvxIhrUehAAABTbP3Z94G7kJQqMGpLtzUPhvHVGfn 07ieugw7pi2zdRENvp1nrhsn +n175Wswj609Azjx5s07mudcXo6zXvCWPmLm335N4kLgcezQJr4cOUiHenn9FzQqCzEHE+/ dR473UT5wdSYbFSJQYn08FclHTovw2aiexoaKVNKTQKX5nApQVfxJRyhLJTK7aC/ TeNBNX7dUZdDTSFrlrDjPcu9OtdPakFtzCujml/QOX4ceq/N4Ji0MK5n4ogqv/poafS61kBWL/ qE7zX1rU53ycOqimBQv4NmH7lWIuyT6mfCEXHESsywecgbSb/bL9mjS/ hVfnBc8Y5nyayART6NJKt2UrNB4ZefZIcnt0V4Egc+HmiXMmt/ LVsckIFiN4h37otpTWFKohDVeSpvmqxzxLKLAouA6p8FaoF+ 0Y3LYpra5Kgv0Ym2n2CzKDctTT5JvK3RVxrKxJLjeoxvdNErJ7PvObc29/ Jrz05X5paYOB72y3e1m03lWULeajcaHmnFv93Im7l8j7NWzNlwz5Poc3SF3cQ6rrWa5sDsfScxzAVXvV U5o2RHDjRt14Ncz3X5I1V5AC5mPl3VkY9PTrHVFwRWneThKAmLemFRFvAm6cRMepxcBNrov4 / YFb2YMl0v49nz22wggAxP4aRRxtReeYgpELPZXyHAGynJmdc3rVslSNgZ1ki9mI0dxvByLzOEAxSJG8l EbVd1RnXCnNO4aKOQjJK4pspz2fmm8h09HriJ6Xnkz0blbF2h5fmC +r3SxC30zIKjc8gE5jxYm1Z5XtiZcUYvQadk04+KBW9aHHYVb+ FTAy5z9fyAuu7qrjHpyWAFow1KNeycANtp2cVkvX0Wl5xuZWkL4y5zwNnXXzx2KkBwKBjYP3r3XHxfCx SDVMlsuLYB4oqFUJppK7bXwvtNWbjCacDDso +nFOsegmSCH2iknhz+W5wNxPDaCWf6cg3J9n9iWj7tW85NAH9wsLWhmpQ1uv3b+k6Qf4wkE4e5Nrm+ qNvPZCNqef1avH240V1vft3+iVpWbfTK3E2gnzdv2P+GwTv3INURXZnH+nL37WiX5beg9GW+ GIQw1tQaxrxdEHHcBPUwfDqGvUkcIg/jD4QnJD2mBuR9pFohLaRKmX5gY5dHKESuQVCRZFBQzLVB/ 64NJX1G/CGN83wyTSKBg80p+ 5olwXnOXI9pAjDttkkoUW8Q5eMK1BFFYLIsmnSoFppqLDWexrS2x2lq549Ba20NInZIl5MMpi+ mdablhxnI8KH1yrYec9vvbozLJt7n3XTh28+ SLhq98W2Vt9NvYSOLaNkwqkTfv6b1SBZYIqyxqOID7EAcNple3cPEOPZg6yNDKkvzGrS0sGrri5ajW6Q qwsrbaLfI0wbADV0bgFQk +IG6XZbtKE9PgrfFkC0w0sb5LqCPE740kIisl92iycKwLSr4r8qfmPfuphshMQsCtcEIVz8bOvs28vw/ Z5qqPQ1sYwwxzWc8xOftdQL9zhk1g0NnEzbjUnvXnLsUyTgZJ3C8F9gjvBINDv3MsmDf+ RXZ07nShwL6k4dJqo21X90lfrtmbB9fGXIzCPQ28hrUAlHhHc+7yBmvEr/8AaO+WtlBekslZ2q/D+ ZxhvjvIq17Cqvhxh2nwVakBPdb9xPDAA6Yax9oPM3Eh8YSaB/GX/ ZGY7AnEvyRqTT0ObD0wNCXeuyNzjaYxC/unZ/ wLVHlejbBIUQYBPfr5YSR0jOhWB1CokCoYjUqKwvPpCDD5ziOiUhc5d2v5mqGUHhtRz2MclSPGzWbEKH TWwPj1PSlvwvwjGyyf6d4d0IpMeLhqhP8o66uoRuOvfzoFzleluzjl9maQiUkPn3ODqe90spSCuyM7ec tK +CEwulRMaFDJqNxLsvGelmSdh90lmbGUi4v4f+PXTWXbfMj3wnraibU9Kw5lxhCDgLmfpP2P+IL3q1eU +FpskekdNLjrIXqerwTJx8hqr6LgK5ecBmjSg6VZS7VfCFnjZ3O4s+ ociZu10v3atS0L8WbnOb2Tk7eC6Y7x3p75gU9wQerMJmvTkGbKqzo7S7NiVsmbuvbKEkc+ Zsa1oxbgvBCLwnHumlv/IUhUgx6sSxP7iPgd7UdDoCCa7aDRsr3eBRjtOPpG5AqJZL0TmAoz/ uDk7iad4k0wnRrnR9G/EkvjHxRcj+ 79jYeqBdbM9dg7WCDVu3jx0qQ09xiB1zxukrMpmhoi9mkvWdFCMadAAvj4zuabrFxoqp8p4BBwanIbzt kDlQgjXbGBudmLNJnl /E/jDUpbzR/VhmU0A51zW+//TOEH8I7/ EjkSkDuwN2XquFTicJ3UuSQVw7ZjYWP4uPcVAS642QHl5k9VjN1IHzrSO01yKDqR6DRATeGkCXJRoDxn DHPFeEdbNGYl1ksKc60Xj5 +oUv13SWJGn3Lwl+ dCBUBA8LNvGv39Hj6PAzcEGpDLGvnWYf2JhjELTvS420eMzHsaPlACZuIHPE1tbCwGgZQirMeHWNnN9h 7kOsYUcTdwz229oAd6nqi6R1aqVgI4AKMf9zjaBllO5Oy3fKmYze5sKLpmzGhKTNzQS9cSMYP + f4Bd7asg6rpNT2iyc0nCIIGCZzPjcpwaCm1trriDqh9RZEqa9l6VVX4lQudwzrkK4GfGNz5eMNhYtviA 8 +Z7v9LPjEN5spKsOAN3TrQGqwQg1ZRaHbj6h3EWpykx0dem6fyw6/ JsMDoZ3pMMaCrKHNbyT6roBAvjC00sU40i+Y9V+E/ uqg0gg2uWahd6WSYmFeZVFyPDZOuLbXrHvGOCk7MTKkCWjKXBAa8dOxyY9Po8fzUuP+ 03VBcJy9w7cpwjJXwXiGUQibRRGlGCqhR2ZIt6dHzetuibv0y3E2Zf1X7tEqf7hAl3bGC21z76xbVtHN GWNY4iGMF7odBvnP1jLzEj2evFM9dC6RqDdPgteRui2diQniC27V1geJNggtkbZiII / OdnYLCifvxnnzksLTbK01ISCifhzuNfOpzMseZg0yG3ImkYCskT8eHAbs3tyL1CH0n6YcIkLNrGvlLvH wl4TcZWZlvcMxU5VnacIaAs2vHGq9d2FhzjSrl5qvxSqt /pMgfL0fOQpjKTwMbY+9wt/ qYqSq3wDMC0d3osbxNgwZI4dehVlbNu5oWq6SVqlggnQdCAGks8WNoGbPssSeEZAeeHgpTBYon69voQM aPAsrP6B0pfT0L3IqcYU3XS /yM3xVzAqzVPraqMxDDYNkKlUbgawEmuXCRemcED04wZgYOFtqzuPl6Bg1/v1+ C14BjMAqSUUYIem3DPHST5rfm0X06Y3xDFcR/ XndliNcuExyKvCcmbV8urCRWgrpDMDm0x7lhCOSgipJ0MUGq8RU1MTsZ/ 4RLXZAY4Gtx6vUkTrMfUyaKAuxvKWsUM0oBlNFvsXwTGvmnTxqCcGkVdL2LfshXa10y9c2Sn7HQpazA0 /en8patqhto6toNJAT8yNMIkXAvXMwRUGIeHoDMHoefTfD38/ rmMm0UJOMXXoUtwLtBhynX8IwMgOYDciDdCWxEzC/BbuMLr1gY9UekRLza5ssad0l8maS7b+ ipOrtLV4ov3Ehp8IMXNTpl3osnpewqQngH5JXTeGu1R/jizH8I1W2U+YXHT2yqEG9u/9nyy/ q4t1bTZmscNLgXXdSPdCqalOCtNBAPvRJpdDXJJ7g+O45AcvIABPw7i7mx9zsqSja3o/ q0Cemwx0RciBWZT6cjBXoxDtuXleiEJRPAvqKNokCI9ujAlsrp7C3BQ58QE4TicEwGykCjnJ578vRL7p wzuBZgUM7rB9fkNIog3cqYE4jsdIntlkqgO1wuzA0g6BC4ujy /UQH3uZpBevqcLKW/0+0l2eH9hUIq4WtvGqbC8ip5RZdD29IN7vwQ1wiOan+5FGD9PWkrESyR2iS1/ buz6U82HG5HpnjWewTBhZqxbWBsyjJLej94FjjKlSVWBuhP2Wp4knzgBhw9ip0UmRlbbDJgKOYGE5ZM3 Us4PoRkbxg09Y98rZ3nf24HTJ9IF2yH1wezMsHVCJuYMuTruoojUq2fNLBUKSIGdjcij6xCdHIxzcxs5 Z8eXfTGT0xb ++PWMKJ4R3+ AybntlvBvQX0oB5tVPysbv4FpftN7Vx9aOBFEBDQFNWaxsON8dYaGe05uYkRufbJcqlIhbxFnur9bumi 7 /TKlplmLhYZgLj9fPCHD3O753llFH7znopXtcqIrcUCVtgUhkfrR7jJGdNNf/ h8t08toSrotjCrGSYi1voSJadYnBbFT1k9CJdmGczf2UI0al5xrKekkl6tOO6+wjdq4sFt/ 09LKY3H5Rh6y6fBca/f7FHAqgrHohNmIFb1zyg4IdhJ53lQzHagQCFK375pg+ nKva6eyQ6SezjyJR9V4yocqD0e0zVfBFfKOOZObJ8pjbEjAcl2jsH1gEARPnntLZ2/ YaXpITmiflkCFEf8YsE2NE9t1uVH3AxGWGJ5vXXdhW5nkPPikZRCXKG0kl88RwdKNfEzKrJ66ORl2rC1 pKWgQLlmH33sJsWJsDtKZCmr +lFkrFb8vBD2eFpCKtw7hqTV0Z2FPbUVz2Xj7x79RTD9QuYT6Gf5jLqS0iASsw36N/AA08J+D9E1/ 3niuepcMq8Nxje0+t/Iqh42x8WuSl1k5dJXIlqc2eV29p7uPwMSkbHdaPS0X/Gr4q6/45Hhm/kury0+ anrylluGUnzJ7Adrfi7PEeiA6WZPFSjul7wlqH2Go5BJ9VTsYizq96f8i4/ AsE09MF4DjzUEF3WmuIw1nIg6hzXEQP1EyE8hbdjtm4qGNNQ3lmu78Fk+ IlUCnmwUZSwdQZaUenFwa3Jl7zZmEexuYCfQQKcleJruVy3F6Q08dDIO2uMQFs3o2WFPIpyHV/ zn63n3dQkaPYHGwNj53Pys9WIHtHeesvbHnAoAMxL+Jbuvoivakg1l+HX/ DBN5dbBJ1T2T8UsjCpwYAtVM4f2BH5z40EOtsbcm142NXEf8F6wSdn6iKQ1RXwYsKe8SmnGOymOFpmpm c1hL50V8u /C2seI/GF2PHi5IuUC3xvhtdfNn4vuKzGqj6X+ a1xoV8Ao0ahRj5qo2W339EwuVxbqzj6lt8ZbkxeL2Ea4wrE/e4PQ0j0GuI654B/ bojFeRQ3sYOAYddgwUvDvGzl3Ml95/i5m0IzHShNI+ G6dX1RJJsnddsXibf38Kj6mD3StX6wPxdFoaDxsanmelpPTpWVoS6sGvVj6NjvfMSdmeWPUo9PDWQFEm oLAcLHLgA1zFqGRheqlr7iMleeLnYiP67J69VkUGe0NUjKGJeCGw1jWPTe7 /ZxtLllZ+7ZKNndtWRn/XgyR6Q0CzNIAGKY5Vv3P7Bxgxv49UJG4sI4kyTyuLpyChDVYZHNCxLwMEsp1 +Yofw14yfVi80SsU7o/ voN5OapM1EbjwT8eTIso51Z40LvVczAigJJa1RNCIr3k1ynL2eImMMVoAC9zFns+ jiEKVXCuPE2ihYbkCEm+efG4qp5jWZUj+1FdhZ9MpGkoRknNaKEmP9lInyMmUGAY/ HHxF6GqD1GfnZ2DuJom3aeP4A8QxLw5iic8b2RHR3Fr/ J0M76nyH8ac2pH7F0RgO3fqwDxxtJl60YJMgBC1igZhQxQK7wgCrsVvnZSIUJiQ3qKM9aJ5eqkrpgiRL fdw10kpiHlMJicoWcjmdM8hmjfjQtkNgdT6rq8K6lC2lvMDxBY +QkLEEBkzCxwktgF3pDyX/lfQK7rKMS66BE0JI49+ o39RcyrqH3Rk7e3P4cf3EZA6y351zGyfUm4t7cu7sH9f/x13cwfYno6o+H+ i4dZNi9Md7wcRDRlzb1N3UyZiEGHqV5LYBdhsXHX6T0Vrzp5u3jb+O/hfxV8M/E/i/wCGdta+ Ay4l3fzJ8C1OAs3qyT8oIHJ43oXP0ydnrSD89mjIbw3JOHU0Y4fo7f399PPYZBl0H4y+ GotHFvqMFyWaeKCaWMx+ Q92PepB6uBNrdGlBsCGypeVYRlpS1coTbpxqdtyhu3FLDeGWfbnPq0fgx7EO2qyFhPN6zD4wQgkWhDRY s0RzYh8vGXyaRdnA8rnz0vMUhg7iwKftIJ1t8pj4k9IlF2xK207giB /RvF/w21+28Q+EviTTMKOF1VGHciHQqDpxtMg6hHMYH9r4exM/Zl/d0x7qvVEifQ8VyUQ8R/CnRfEN0+ grvvSEfbDkpEtq11Gonb0x87UHPvuCHcNdYPhKFP99d9iPZ/mF/tZIMG4C/ vI3AhEysqY8Cf3Eatay2FAD4Wbf3vgyO+ QrWEqM14E8gnyFjsxfv39weueHdOKzmLWlhUUx2h8F9sMkf9b/Nm4p8HLtLXL5jmnMwSYk0l3IXq+ Fw8PmDsFzFPa5kFkUeliwJSmYNE0un6KKi9DhnwBrv1Zf8wzv74OXYBCXAkzzTiycFHO9468Hm7GiBcZ VqWzbIhPvFm1Rv / yRLQ77WPNh5fWW5bycfuVeU2YmXknM7r5l3zp4sPGQAzGcYmBC8gZe5R6k5NlfhUUdaTFwYkXDY7ul8c IwloY3cAho0VICWrwM9YJoBkoCKES +jdu1nixAE5rIDpobCNXBxEpoZpwvwTBkH2uzDBi8ejLAYegcfhcSrFOr5qt/AGjDDd+ rq7qHCMXaCvzxCLUutlhk5LCvYukGrf8gJ3pe53QsBV3Tpy1czuo5JuiHYa8oSQBRW+ x3Xiv4LWJcV9APOVqzd27b178SmOQ3qfcpl0ScDRl/ Rz3TUHqqsx3F5X9JP8w2TMN5L4ipGPq0dIqc1AJa/ge2/gXP36F0Nbsyw6QxbtEXDCMnntfH0gtB/ I8MAd9j2ehHcsGCpzae9osN6fINskAppzMsxO/RBtuNPPV4GK1o+ 25YB07MCS1cNf79w5ZHHOusKQXgV2qx6gBqRmRTptdPIDu9z9NBlEmwfRbiBxqzDjpiJ7uR8biWOe1wT eKzzp5v95zAIieJbhWmnyJJFWkZM362TEfrJxoYDK9r3YL +gav4ah+a5RuznrUVj/ qvf2gzsdhEHEGcowvZmU7nMvgyfgw1kEtv1mFgIwYwMtyxzdvih0M58zSyGYT5aFQWfetNVjRrcV5up3 u4vG3WpmLw885ntbD9aaFtrnkaFwdqKof9X0Aa5aW3 /oF96HtWqqpXVZP9+xW9wfER9vOWAEQXKY4biBFMD2iVsrPIT1FPR5Edim/2fPJem+lWUhn+ zAcs6Rjx8F3p6RXp7um7rFe0cO5Qb0LzDkijq1hj+CuXeo8NHoE/ i9r6BTTb0e9p7ILm8OBN5Hjhe4beJo2lb06BvRFLtYvFjiC7SRiS0ZVvNrN91Yl2xyzeT1/ rbA1NdjKJlN5lrv0gWBvdJtTS45p2g6+0bVj1rPdfyzurznWP3Td62h7tnkKx6jp8lyHaLV4Yxuxx3r+ Cm144wwOiD5hlhJCvQmZbg8jc36SxnNWQqk1N7lI3f3O6jqVSWfmLTBOg82LUL0GeR8RJb+ ewXjsBtgPxgN4FCIS9HXsEIuxieNErROOBmJK0EeeFC7JDD1WabpWzhTaoMK6j1c/V2fl463zt1/ Z8djK4/tE9uEx0Xzer6qfhdJrObgoEY+EF2mONJJhEiNAwN2i+IN/lb7cE9sY36+ 6v4fso5kMroKupM3gO5XSroYlkN2MD0OH7kmjXtRgQ2+ vUiiD4OCFogJH3AfGVdb25ukqpeAQwdsYcJeJy78VlAjCFVe8pf822d0A4tqa0/qv4q+K+p+ EG3J2Arw3bhTNrt3z82v320M5znpLYBoZTlG0a3e1kaEoHcRZZDoUoW6/ lsarrOkwe20x7sL27sR8JqGMdPFd+onp8hF5bVHvFgUYf5lekRpLO8+ OsU5ziL5Lyp4t7C8q7XjIvAG3ynlv8lguK9+0gnsb/OI4bV8l8f10j04/ C3z5cF0DgxAy2305OW4m5ptL5TmD2TE/nQtIo5gYG7oo+ XuJm5Dx7nW1u9FCirqA79u0nDL022UYjLls6IeSF2DkwnXpHsfPCCDvpcn9wV39Q6znQ5lnVtIG0b6Qa Wxhsbi7uigsc5o3QfzVIgtXQLutsuGFQMnWlhJtymXKoGQ9KQznoLrj7dG2sl5e8H6vMyuYjIAPtPUnU x8eL3PV1QxEDOkbPQnTR T3ke9JZ3dZxKdRyBwuhyfP22uBxI1p5XjQ2b2Kdjey427pzqWU7Ed4VgBHnzLxjbzw/ Tm3nVetbburo93ebVcuZ/6AXkgXf6bE/b1M6sg+BW+KUuj+ EJ4jKYvEvp2vaiOJtQPw6gk4UDchU6nLpkjrpdp3gH0OxdCKG2VYE7f+5RareEfi/ 5x3GGypowsrx411l2MBZx9Xifces8wgD8horJUtOTwwNp20QQK9jJ6ThryGjF9LdzaloxxHoYIT4Agfd dnpryrvZPW +4hL1qTuCBsPlVv8RLSfD4mZdCIVIIMrCUIujz3ujv0i5ZWv9e6aazx7bQdInse+WLPKE3yrjmO15+ 3S9nlwWARV4lmbKu+ yb6cFItlVUgI7paUSgiuh4U9BAv3t8VVPWpyLGn0hRU3qHhMt5lhsxsYAtM6A8rp1AaQBy4hF3j5x028 9aN68j1zR3uqt96tUVt4Xz1T8gBAkbIiHFez1h /F+OB2e8RG1b4X7i0Gr4Pg9tma8BWTkjuPSbZDGmEwo1zc2pBf2koPh4f8s4bnLINO20kxU/ iofy858FY6pC3V8Ae9JGo6g4RO5aioGvyQ4NxLxrzTM9crs/ bFXp2ldj54iT5ssqB4NxEkynqExYNfnZg3FlIIjx5Wf0P2vuD584Ay/ e8PHaZk8jPQxC4KV8srklcrOOzfPgHNeUbEJ3ljwBJ/gA2eC7B+ 4ontEutry0Jo1WBPzThREVAsjX4uXEKOevUkOQL8oXN+ F5ouasFLNDYGf0wToSpTYwbj3wGNSUycXeavqqkg6CjwbUAvIrUD1BYrNNKtJkgorslSkqfFSIgjNg3k mRMyMmfc +UUUndoOwFgIspK78mCuFfAK5jUxcZ5Ewz2ggpXuz5tr4RhQzlnrVeA2QC7iMZhVnUA/ SNsX75ExpdrnMmmgCIiMcnWsU8nnm5N6ATB66g5v1hySPRkQFmBfRnZ2sJVRzclnqRLl16XRl87wSqsH 6 +Dccd6V63Jz2NRTbdWxSj+lx3qrjBbJtRZI9Z9El/RppPS+ mLhV5aFl0F5f4bC78l4qDdU8PyR7AhuzruNmNgcRQn891QgSWz5z4ax1GwEZPG90PQuZjTRs/hj/AIT/ MC50a22P02sE9iT5Vs3nbPUqISuSVYb3BElsKDMECROOI9TCHl3+ A7O1tHRW6Hcm7I9d29UvpDuRuJgtwHuuOnetMzX9nKkExDpaCvkqbDG2e2O3QKg6+eeRM/ HWtsn4VR3A5axjMed9zYRGDIqDhkDzle5LtnAW+mu79Tb/XXdAVasJv6au57WbLi+dBAtvDKm+ XGXRwvmC5emxidr26+O/Xc/UcHzRp+xDFfjuo7p1+BD5JGgk2uflB245H/ C6fy140B5MmD0h4Haz2mqSGuycO3c95rtxrc20x0oZJoQNRWzvqbdkJob9AvLU2kt2qgA6OKSirqDdgN mWvMNwxr6fmmetq8Fralx0WFD1b1xK8leBwtIwNVMUWOkoAG +uMzonoD3yvVluJqvm4q3L4xVdr/5Go29/ oh5syp15TggAKHyLRGTQKKyJ0fNomW89cP0OmCyuvfk1SvpibCdVpvuG1hiivSelFiI9Zmp9dMpfe8Qa kVYLaZZzJboFljREd1 +ykD23OUZfYQ5rqqO7HzcVFnxec45cTEmG/WcMqxQm0mJs7tBOwtl1kOKIxxR3qhajeohpu1pk+ vgQMyXGhFwbgboDhF1yys2mckXEh0zALJanIktIH4czgJflQ51WxPZC70/ YfBYPk8aVxQeV5tNqZryYppGbuHzVsnv0plE6nVthbWwRXinvEUQ7ywcWabI5qxe5VqgWIDyhUVbUulO kdPaDDHvfukIpvxbdmu9WxBX +zABr47/ ypwWcVXb8tcIbbq1DyN0kVbFjnJtIcG7lhSVQwB8HqDFXpmtnxIwy9fUYTPyaIKSAt09k2NMwrssr4GK pUMaULQtFppb7P /zmpzYP3Cw0l0QVLb7xYGj4S0GvJBwBv2HUchJVvvbyJKxpKB4ljUKi/iTq3w++ WKk4UdCtbCzlMP9uadszFg8noOjxHGqDkIxBIOV6h23UGLkQ0LdzvCZr34B8K6IjxIqNfAAG/im/ tcHd2ZshrWu6OIFFbmSqr4z9hrATdMU8Z+EJEE7co/yuooOz13ltpeV3V/ pBzhwcpvJ1gpcJxmyPawKjAoKyNNHUmXqzeeTT5MShbRSg3nD7gzSoZNzGCDAM6ue35X/ wDw5d4vxpB5hStiV7xcCsslkhm2kGQVYh0TaQZMDjUngqMpL/m/PLciYRSTBq+ TlHc8V2ib8Gki7u79wHtp6eb46UpT/zMCKZzbfh4egptPgOedORuGz2qITqMrl+6rqXK+ Xjb1vhyk4wd7W9q3W+OAjk5h7Y/ kZCfWZk1phg9uzjotr1rthkHwb7TT7V5Libys7Sr8scEu7NsvYxzd921FxE/ShwD9O5Wv6f1r4hu+ v24mXEwPcXk4jiaF7zFkHjs4Vn0aQMQFoHOchyt3CTYVz5N+B/2Yvjf4/0rUPEf/ JOCqQeElNITAVf3Nr61+2swOhk1YEmOftbUEWJXSxp02+HHdi1x1525w9cU50/Z0/Zy8Q+DNT0ya+0H+ qTnE8imgTYfTaSEluEQ4yxsseEPXRievvVcPqLLxHSw3ew4fLesLs59GoPZEuMAzgXwcl0RTqj83ymoq 7aa3VwFKdWsr7t +Fu7cFjGUlzXGCzUCh9QNdr8Hp5JWQwk9fvycDaA9P/Xyi61W5PgI9ddX7BTGujDyJV+ gKcMC1XWOonBglEWyCd1N80TFTAH69FqApS3G5msNC5J1G74IjWhGIB6p/ tFa7xtWDggUizuA2eibwJqAbtda3bCIC0Dkoq6kYKNH6CtwF/ESLZdFCkj9E4daR6Jis0mwOzpM1/+ J3lhh4a9J2sfmWmLzj0XvKgTbkw05NBILYqTiwdoOFy4BRjXOBUZ1tOQHuCCRkhLk70DdZSMA/ z89rinpnJKZL0ata/xyoiodaWafFG5kOsaXzrRqHLxQDoBdSnw0W7JRQan9w9+x+hM/ sNPQY7taI2G8vnak76PRWheBXWF9HBYjBKmP7PYYHSL1vwPk6/lak/ xCZiWBHapQ2wGdf4i2NUiuSHl3WG5V81jNkyAuXBnMrswd03mwQne1b3+ Ksz0z7p1F1mlWtO6EPw1d4M6y6CqptBnF7i2jQZ167BtjxEN7jbAJIXWBBokecnv+Eh293SzUdn+ COgookyk3k++kynSeZPt6E4j58c0RVQ02XtEWaXh2at3fqbwZ0EIewGmY/Kh1tmlr2Vr1JqW3PgKPMh/ tvEn0gco+ ah53ZUVaPQOZpq1gUo2XeMRsjCb9mFwMEeVDbl9ZeNHwQEyF4r6GP7qpgdOoJYo0u41sN3hF3pulamDF VyRvvBWjMCBXnlUtj8HBjzUKeF1X2Je3MtIKk64LpPEqMhc3ubikOYhYnZpFas71UYEOcMUpXqB9F3Qc yVzJ1T1mryd fzJwt6lxiCX6krCGyPtCeP4bJaH8JgzYdY8yJTTmmMXprjw0xF/ uHdgdtexBljC2tdmLof6G8fZ0VFpBgImTOfI4cxHyFCoplvR6uIxadO01oPVVBpQEQ8GgfyxR7OzF5Ll HixcV3Ou9hA79sy74VeMaTc27zc1kYTjLPO23ZsAR6tyNFOQhpSDa7yc3YF8Q7l4OUTr5KBhxF6X0Bid 58ob4kjpdklqoY2rfTRigw4KqGMTibc0IjxdGpDmsTzzkpHpgDMrSOn0eggTSiDmaoFjKAI2Wq39B +m0Nl8zglzWIdydJ7teo6KStHzNgP+T3r7Ydo0oEpKkNKVnLDkfVLmusVy9rb1eqJ38+ hylUCWf5eh9T8pVtDrK4g4uO0oK/ BA8eD4P4kkKnTVrzLf9FjlrVqzISyfiI73L0PKsauTPEjSKcnNvyGmfYxnneoBLgEwH5As3oV9iNtniX 6l08ivVBkbw5iu7giz3N75OvFI5ZQlkNIzhI35eRv7NBj9h9soRTb9Cr0C9DfvZunji8smF6c0e +C/s0KbZIH+ F7g7G780h9gQhjGtmiTUxjqZFgladFirSqJtCjOAXCEdJJFvdsGGbIav4VbfasFHAiNJXETLsfaD2R37 GxAjusq2ju /BTt4ZC85G5XQq4M5fh2Kfia3y3llWyyxHajF4eTT1Sabkz0WvxWNxOISa3t+ G39YSiugnMjL15E2zWCgILPEPysDMFNXicnGtOp4I1I8cnQnU11bPvo/ j7DC5Kph2szsHPfK7aE6v9PJ8Gnthg5hfCs1I7QowO+bYynLOsvp/ MfEd4hNP6uN8uDzGUpD43EuGcnX27akJh7qir4ecWcuMrRpb3zdSDSy4HD2Jc22nk55LTHM51NwxicBS J6GdyIie /Mww/ TTuudCGosw8a3yjaIbyExRGmoFhiyh49r2mXC5aiIWcXeQy0N4jgLS56tHTTudb9AsGkhUc2x7z5xIPh i7 / zUvpaQ0NncF0ySldzoitvNTvXRewTqDito7pll8lgIyIeVMObMgj9av2oZDwCvQKc7rw4OnKMryXcqvv Qa07L2PvQIernb9DX2S056dX1zYvi2vil9MBjXF3QxIC3L3s5fncYX5ez6f3gD6 +ArSl6nykZLnbBEBLmYfUF17AIcxbN9GpgQQXfbMeCd1hiswFH+GJ7vzoWvNhqJr35XsNi7d5sPD+ K7Klf9pii92t2xdNl+u12kis3B8zeO0twox+zfd2s+bK56ND7a+ 7MGhmveJCuPlsPSlUELAsRGIfTKAhyVhludhLEy6nkZPGeMrbeBz1ubWdCo/nQPuD9U+ BQ360cTvCrH0RI02NFkMOxyNocXZIgUowf9j2LNbK0a1+qeH5JI/ MY2hFEfPbumlZDaqxifZZSzp9GwUzxdXOG4xAFmOGjYwBcyXISs7oaK/ bK5fV6lcSNzFk8JkVNxjUfEHg47+tRcTySqivv+fQJnliqrtczzRuAjuOIGv0y1pQ5Zes8/Sfu01UtmZ +lmDyraurmVaq0Ob0xzGebV7bAKLdusef/ 0FPhQKH32Hxuz9hjHw9oA3m8tYQhBKXutaGLiJyXb4ppwEY8501ZGdAGJs2t/acubZ8saKYwEcFE/ MHDrwehrtn0UOZrrs/ trXToPSUXcgl1XBFmWSqoAd3JqfxvkRao82QB5vwZSIKcBOQgwnjjiF12ahvP1AEtGOShxzcuMK1Zx8I 2IzYfskNB56r3tbGXgaVVLryLK3MoZdCayYilarFE2XwOJMx8vHMm0sUtzH4pjuomMhARpZCf5lUnf /BKxk6ajjxGvIuTVhcp+j/K1e2Est984n90TgHh6I6VfPwpIl0j7rlnoUE7ngrnPW2zj+ 07kFZDXAKGJm1yZNSpw8uXNOskjzMTED6PEDd6kfl3BmL86e3LE8aqABgSLTSWCKew0E5MctI5QgUI0s tGERba +15U72EZLetVTLmDcWZPyws5/ hfMQ1ZDwhKSYEBq0NRfiD6u3PxWHTdqQxGnW1AINYJkdcQUTQklCNtUT86Fb2IuBZmbwAmA1496Rew3d uvurqIbmkIKv3XC +rt5yxco5gw4Cn0i1vNw1HaMDRmU3AFRiBQ9tBsQYUZYoU+/ vVtB5rD1LRuFN1MmmlUkTc7gXpNuRkFLGzPsWqvXpaQb84i1T9jGjHzBJkoZbWPRg3SrhTwpGczb2mRp MumbbaJV6slBTNJSNSHHL5ajTzKByj0nL6khgkTOww6l6wZeYCW08Lo66x1FH10pVGgEqILDOgjls4sH k /uz/UkUCQXuc0ncF3bkvS34wfsyo0bBtY3taQwnkiiZJH4jzSc7JJZXrPK+ AwAJhngSQ0eIfOECIsLmqdoV0L2PtEnMNtHp6D8kcNuQRAE0iwHRtcyRuqlFCktx1JWuDd5ldZPB1qOW RCMRGCdBDa7JVyxaPZKIrfB /PtdXzqwCNCUNFEOrEkl3h7iUAmpyv4BkX5W5a4vcBs5VQ+ zzl744K4WtErr9fr4e25D32bR7veN9u0YaftEPpSzXauxhM3wUEmu8ezWTSOHvAGfXdnRvkbm3jQyygw rYISaIfq2zsuELyQr6Hl82hhgfexjPLF0m +90+R3sJGxYZYBoURJLWvReWyMRs6iSuDxhidG+ jhwmmVfhFkDfNVwvWBJSAYLW3epAKZkiHypTfnXD52J875a2E2BwyJ6n7qzDNvnHw3DarlP/5315/ bDeGLttzRxGiC6ulWoxZQZ44JPnVwMDso4sX7nxUiBox56k+IR4j8F+ V46DJIbCUwRBxss8Gk2nt4xUCYWqxHfLbd4dlDzUfYZkAw9EK895or3IJVQ1lBkGgCnkTgjBDrZDSvEx IKNdfd1ljZ4umjRDYXEdenhJ3zx2pntpioiVcz4rOmqJXGZ3c2pxqwsPpMJqtgLwL4VAu9iLc3qhDsqA sNpGkPphp0REbUmGatf6ZX7DtgKq1CwFZBlueuAfThVGhYoPnBDyVitPWOev hfxthROTB4m/XY2gbIwOEuvfQ2QQ4bX8YQEaq8oyqKs1mk9EWFrgwum5TbjZG2cIK9QUsq0xU1yollvf /GmRGURuwexw2X1doisLKPcjJQKY3ZbJyNTbvMJEAXbuzshB/ LDvwVL7aAtkyPx6bGQeRMRY9retTumvQsl0JiPdkW3vPyXQ9G7GR8nyXjgprMxfDx4oo/ 3KuYiZLThrMS0u5JlmrFodk4lsSWnTYePdgsEHimWWvI017O6AxFv53OgCZOv+ 0Tzp56fb1fLm22B3zoisC9f6yO7kd5MdQjzeNcEsgTyyLSAGPI2uo6S25L8/AHMm+fih99A5/ qTknAaztAso4KCrngIWUPJN0IYJAyKwy9L7ppr1jMXQeqG5u3lHtu1XTDCwVg+ JX5wuG4RRdrUUXUkrnlV3b/QFyqTGnLbrI1fP8ycYMgnvtnxEVZMmjtQXpXnsgbC+ FMB57CrFmIZ5Ili8LG2Cxh0BoAzTj6znSs+ YGO7DNhcobKicjlfOQBt2HIvsmztgZXpGlGAKmHhBUISWuvRz/ lVIjulcsDcam2oa6NeEpSbLSxWo1xg0VVrQshDXvikSL9s3859Yofes1WxE6JLm7nenihmPQbAuuWgx6 vkkG8a4gnUwPQ83UbgQFO0leofPlH5vQaBAD8bOWC28CjZRINzuERSbDSDPwIjNW /cIS0G0c3C/AA/hBySH1U7r/HrMPQ4ehl5AMUiGapsCeBCnrhw0yxR9rqccX9klxo+HTIIVTyd6/ uYrdonTHanJFBeXbXqDcFgy2h8GqqgfxI32rI99Fl73/wCCc0/dVr6/8D9b+dt/Z5xNCP9GsEP/ lIMtDW7KNI71vbEg7LVMzxHLZlkb6Eq2NzkmWXm5ZJQ62dKYa1ilqUEw8TxR3xrFB/ 6jojjXsa7ByZXkG1u22B3U6CjpiUiDpyPSZRYjJDrLXfokbQvjGADsdapNRSD9RkaeC30t4HzHUlxLvP E349oe6 /X8/Ht3kZg7wsXh93ci+dla/ d4mMGbckzjWrjN5ptn9CxSDztWCYPDR3MzG9YdScxh6ZmVNZGtFshBgAIJbLDDf4EDYb2FSrenaCKdjd tIfxGS0GEncLdWKPURWn4DGxTZmx2FYyCygfFULKELKqMdu2YlEzeq3huqAhLYF96GMWRbrDRMiB1nqF pfv54oe4m3uYc1a826GnIrx 2V+ t475ps6ep259396Y1yQJOSDYdM1DTsJ8uVtk1cYQNPTPK3laT65AXx2WMJavS7suhMh5QbxFZuQDa4YM Kb8l0H960fiBvMxJ +H2g+Udb8c+S1FkKyybj24d6+N2QLP9W1Zk6uiOB3zhAT91JcIznXuW/P/ hN5iW7ThIfd9qhAcddHhsK5+23iXVe8BHK4KA3z9KN4JwFSVALBpUT/ XL8neHky6fTQjfguxIQhtKCqlf0iEA4zjKr5j0ah+5elJkRWbhR8ol0FGRb/ A2b5tEepE52rl7dr6S8nlN4nlvv2fp5arnvBuaQBwSUuG1lUFnAsh2WeFPDEOIOGz8c8PkuwkOEHeqRd 8uIeWEVPNRyjfOpkcEYC +VKUJMwYbI2rtY59jf+2v7g2aWqTqU4aWJj0eC6LDYs8dQB48BU4nbt1E2vjww1VJq2Te4I8fH4x+I/ iV2qAvVkC6MPGETOcyNqJetGnPtn0zoubTrtUnmHMnwphBuf5lR15hgywJCp8T+ fb0nom461hfBOsS9xyKzSUkhPNgoCpzkbAGpmybxaKPnOvfTg1uBnhYm7D1SXE4pedCy6uBr4sunQ2Ir 2Y9aVbDOvUgCQBRWRKau4y75DXzAB77emcvKYbCdhR9bhvfV15wkwCc5KzJdRJZMrCnOzbSJWaFq9w9f LwpGMH86m6lYOsdxOQPSZQ + DNN7jMnsBOXE1mlmIvwpEQh20vFvZNKBsW625MsxktFqD4jLP8AqQVRvntYRxvEpK48glEKTYYpN94ix psDFRAhpnROW8XCISi8N /Jnt0/O6nA2ybDx43Jm9UKF809mmn5p+ 037yG9yoEyPsAWt0gEoWNsLsihQrn088K0u0lxI4IkrNGAaHAOKHfp+ vgH5n4Sw1kQZDSnEr2qmblgKqdk8DzMBnpZLtXjPNTvgdWQySGWa/JWlOjACufsTq8VqbTHKsKhPuO+ MrXpx5MhpJXhbsr6SaaINAvdFAeK7zOYnSow9wQRwABG2RSCrqsPikNdvCMHZEisEhSwcD9bTR62nkoh rmkeDKdF +8qrqbP7+ lhTA54U082tA1ycCUflK00wUC5qgEDAsSfFO0EkNQLMUxTnT7VPd9jJNa0qgeB9OGTLtIHYmANlF43Tu EMvssDTnlpkB7eu +YWWEVCEXSdwqurqxolAAdHyTqixLIStmESbp9TCtQ/ 5JSS64gyHShDfuZBJ3EzJkByl6nYgJP1RPnMXm7HWwcTzxzzJcOd6qorxW2Rgu7AxramunDLkuKZ7QAZ ajEOc9FN2ieVyYuIFoomvnXjpcx70j0D0ThCBT9zfzCeHgxn5zyJANkDWfCTipCx0m59YnBTUOJfAKRx jg /wBDHwJVNLt/TcBiLVHZUIWAtVCl5GJRIcIiuOSzqMjPahSBEYrWd+ rKdx1NQY7FyX5VnzZ7kErMuAwbivEVlPdke4J+qLOS1ldM9899kfV3ntwyuixigkp/gdhTiyO0Y7+ ClzBvl0kiLkvXxw9MxAJkmeLaqqbibyuCPAQ8cOffcHy1ODSLkZGmpEiUa/vwlHZ/9va6+tt+ 9OCu1J5EhRwnt3Oe1fI07tPJR624Q4h6GVe59ztmif6Xk32r05gvnWhP32YmpBRgioUIQnAq7nOk4H0L 4X5iq5SK6i4gEFW95ooc2AKbre6dwi0rGbVkSRnYZPMDymyWRBpNJeYSGbXGbn3d +VptRsZf9O3y8HudIDJahax6l8Tx9EdOzvuziV6V0HvgLMJJ76eaEmnvEpZfd0X5b/hL4N8/ Y6z9B83soCSlfX0svEsHHt+D7W6ktq1JpbGPDodFyRKaHUWtS9yFFCMUNUkiGR+i8Rh3D+ NXrt1qpWi4RDF2dCCphT466atwSZOj9Evegb31DTSxKtVchskEzPk68YOLwK+7Nc0/+ 1bKewZVzCjap3jZtHSgq7PgkaCzHqQPrNWJMfVIai5dL9k/22vgL+om5r6bvf1+n8W+J/ WFtL8bi8M9H5CN5q7a5t9k+BPuKQEklV3oE0rtS0kcq3b7IJC0YkNvxj7+p7oFsqzOtpoZfx/x7/4Kj+ MYbvX/AAT8C/M90H6l60k6v/NOaCnnrNi3Jki5gshyfI7UwzNj0cfxVFVYa18UxdZveO85hVOCr3Tgb/ Yj40Ni4691rNMIgb/gYH7snuPr9U4dmxoaMsKE/ yEXaNns8BS4oFc5y6Kzm9pqjUeKc7ND1BQfNvg4mPsIA8CMfBxi93xDbJycd6+RYd2C6XxYTNcM5+ l6D3CYPXxGgrX3HFZ3B08WtOpSqUVqHUu+3qjYpuoWfZ9qoyI2Kq8MK7cuv8c43/ wreBvwt7Efd8T50owJIRNTswtCM+q+I/Dsa0WG7R9vbWx36L43Ns1y2wWYBcFRRfSXExwBLGMUe+ Tn4tzkyijaEw7PpR8/NfUv9mp45joqy198iuE1P1t/ZapZgmt408k35L9v4OuN28Y7ESUxbIYW/ QqUKkTxFgRdeKh3pATLu5ygOp3jq8ltDDrpFHpp7ZgwvjyaQJ476w2a7lqZd1UQeS70e9j9Rh7BMf66H 2mtF6fcryJUNhS5uY2Uixe8IcFT9142vqiDyK3QssXon3SdBIyxdtKT6TVvhsHi4vjeUi0IEnMzwi5c1 OnTw +HoGsw5un/wWNUgmR6tYE2145IdU37fcj2P8o4j/L6rGOb3/ eWHxvtNrdzpCtRZxSGn8onbOS1wnSIN29CMRIVB4zITonuFTOO7uwDI7cYtcZne65kaSdUA1CJbCsJue CfDDMb1v7RarMDgJibhLJtJivAWnrroyxbmvR1D2l13jZ61NLdnVZWInCDCD3YNkPHoGFVjGY7CF /RZnZmuxmfRqTVUTaZiW46g2qllhv8ybW9n282+u4yDwfVJ4bczzYLx2BlfPDs/XSMS76v7/ QnaqCQxjw8wJZ4er+ TtcjDxcZJD0XPM0SpVtTlAMgNo8haDIgKJyKZPHsmMMtgqybpFnybUw02WXQhoVZGSBrODLNWxupAvZ8 OXdnBsfzFnEchNo5UXeLCf / XrJmLslHnYRKe3YKZ3eSjPLfqPiPgpy9biEOgxwO6zTVX7nC7w8UseXSBww68I94w8cAe1kqjXBHfylt kfFzH1naI3zzz8hru +e+ hbn2KNbORurBBZYmYhxR8r089K8uc927BGhAycS93ez4hOBUg8axjoXFTUTiZPh8mFMQJHOrJBFx7TJq Zfyb8mzZG2J5Am3rWEBtjyIBYYduxQv9resXO9AWRDZ1HnCqXHHWb72FOCQwSC8H3Py3IAr4bv +aafHcllVHvB2BrOGRPkqn9rcaazEPylwfqxnLrfT8pUSuLTSUbi5HSRPgFHhY2os92dQ+ 04olj8T4Ipgg4/RYfBxm/fWn5u+d8f0b08BZhGKplh85n6bD/0PlXxae8vlIAHMSWSNd4/ qswMibXHHBmHDnz4WRWBEuSPP9qDPqwmnUiJ02xXOCtMxua5tT8GZhAmIP8LeR6A07WZ4l60v8Ts9ymB gpfUH540kxrzR50x1xAPbMSNoOlgVZXo2sbhUULovxGiqpONMYwQLzHXdbAKMKX84V /MI2I+U48FAAJEO+Yftzwfkmy85l42/AF/ 7I7wDsjsb1JME6a1VJ0mgTLxWfCOwJiE0BM4vGe5XPyuLxMAJWviIRop6pt6NmyetV96gMVtfTao7rgm +WBXj/zfLE4fL2AtMM0TgSnxYRqGMnqoow0E1I+ O6DhuCK6t0uhKXtRl89LDG1DKgMvAoxEP6hSjIVmh9CEsU4wfDMEOaErsPEgWdGibTmXIz8NXHEtngeA 2a8f1gcB5L8gMEt8yYBUTh7Scx3t5JzpTS8kK +RCWpMXg5TRCznKd6yQw7wkZ+UG4pTah8fAtP42e+uJkOMmXfYmPan2hEwjhm5612zjj2utVNz7wtxJ+ 2e938Qx6UJ5Qos3sdiXrzvGwxuOG5usyEdB1c5rmLq5/ HSvf4uRGajWBDxGEhUZP153yjRheBP7bqPluPuUeWhCqQMemG3IlZL9B5uqveI3rkxkb+ 1jlMAr4K9TL7IILDAnwloqRjUHsQrmB5r3iFuAJjyXWEZv3mXRcNHnuIUfy/wt2NfEL3gceA+ X8DgsYfHoMjuxHiG/rfP2jXQ7euhfW5MMktz5RhBKnDnqbNVJJdWiI5pCsx+p518Orzz7c+ k4EqpV5nTpqFnXOPtLbMxxOiHw5YIGDiqZpNk6w6/N70n+ BNbfpBf2vx8kvrgFq4zbNh5oCyewx9GT12aWcXdiix8vuyCYqaf1HNowxY26Mk9c4B0uG7wm2nplR6e8 hDiARCNmAOOu13YHFf2GMx25P9mvqCOnXDjyfRsHpI5tWrz6ZV88m /NIRKSKaWckBhwi4VXMFjoWZVgumprgjU4xyncaDalZlp3niALwXVyghYGSOVl3BO/ mEbd0q7ACoa3w6ymgN2avaGAxhQ9nHhYuHYU/nnaZLm/HDjn60KyEQv0kURkOHCmz8XFwDu++m+t1a/ hucnxwD3bO9uFOuMYnZhXJnqEWdaBCSCTaODIx1rTJaSpA1txxGWYt82xxakNVxARyWZb41ohmS5DUCO KLFHIJXEZx9Y /tUvM56VhOzta1d8OR6miibMtNvJyolVtof6lL4xJqa/ OOvkDoiQViFkNR0bDCpSNxSBUBonfbVGpN79pu3FdDlx3zX9Z6jyW15R2t4i2G2X8TAaf4wly5qqO9zv x +vzOjaW9xPftqwcEESRT8Dgsu2WjD+ 9Q4r8q6J0j5XASSdWaczL6g9d1vVeEUgHDouqN8YXcVOGIwHMOw19UfCBXmKZPWtBoNMT5ApDQDqqw22 vRtb23 /7yT4pcVx1CRaMNkLlpnLdJb8CmV3cTVyaGnmkRszgqEtMLyhskU/xIlrCw5017Y+Eqf5Nl84B+ LzA8MnIL1F7l8luwCGoQpn4oFGxRnotcpFlSAbHOx03f3GneTcx99azZ2vo/AIj1/ cLEiva2OrkuT8H7rjRzu1FxUO6Qh9rPG+54PTUDKGIzlwkaufH9G7iQJka2n86kTN6lv5/ ym7mpIR9YWB4pdsVsj5STndwff9uFsDacl0vTxqcQbt1Z8v5+na56Zjjjy8+ 4bYwj9N0KamAWUVWdA1c8TS/EvhTV/GWnS+I/Cmj+NPDWs+ Z3OQeQYlLBeqiiwni74pazu4V1def6bZ3njXE4puIyh/0wNNZzQieB/ e1MCpwPP46mL3j5i5dYnxm9hb0i8We2frtwLfGrXR16Exw9c55wO5V81dEF0dBIu8NWIjjrds7RYuNz+ XNmcX0ZC7t1HksINCQNJ9uAPgpnmx9hhht3bghk2QvDfGXTlsWmY0cWlsWg9jyy3T23iDOXUi0CRee1i Usulttbmg6wF837hhGW3C5zZ5g801Iegd4zQ3r9mZjGb /cJg3XfFBXaXR86dty0a+ We8mKEZQn0uajiQDuHhgaEXIMQ2cOT4muwQR7sZTjlpBbrYkO2g8hGAuTroTdDElGJ3BifLgVLyjv3bH pNdle /y/cS3nts61ua8l73F+m7KycXVgrn1swuB2gBnNH8thF3lrZaug2yUyi35+ 9xsXkB5suiSd8ubHfQqtz6llMIffEKBs0zv8uafbx4e0bm9Y/hC8MspX83+Pcm0ly6MkY+P/jTxt+ xx7qmhY6LYAWyGNpP8j/b6gTayy3eLey3B0Jl9D+OfA3/VMq56u2w3X/ SNibZ25f0D6bzihhWI8xfJ5SkWNFYyry7SBitXp+wjq5I+dncblKsQwLKcnegJDFRgBs4+/8A4S+ Fsag3HqXrqb74/NFYi0pxylnmyuM1l2R+P2q1Tj4Y7z+L/ ljvIpopnQoYj6Cvq4qpCCxzP7WfK7Ng6kdL7DbsR6ckxZ8O6t40Qk3XbBg+ r5ijAnNReMYliS5B6U880iy87cgRxu6Ycn+ RampagrLkWtFDvCSbLuFeODcuiPC6s8FdivpTHnCEm5c7XVzx6k2e+F/wC+HXg7wp+zF4N+ Zowq3M8OS6H/z1dx1zeuGw9Q/deCkv27P+CHn3d623zoCXLuIrj+AdJn8O+OfHr+Q5pCy8yDwJg/FL+ OM5avBfwHV79tgoAo5aYic7624FZvLpehIYuqHyZu6vjjuc1prX3f69jnUUqX0xuGNu55hk2vv4rOl4n puDqJpcfuuHCw87MzzsDEaGxWmLycc34R1A038UVkq +IPnN7ex+KXgDTPAtn+efh872X26EHoHtIcwOVOUG9KnqP0WMtL97iX8mZ9u75/ ZWqqrtxmsi39QbcE41mTh+LPfHm8w22Tl1mF0dDYexd+K/kB8Cqdx5y4Oi/EnxPqvi+2t/G+ e2FlvkuMNQpnOvnFxG1HFa19hYJedrRe5U73mUU14/ FLaY9LeDbbmasqtOxAUh7VmhOe7lYwe3J8YHMeR+jTfVWvq1+fjNFQYtGfuTc7bTGsPGm+ DdPbgeMdjwuFpxxrQs7zsQ0ubSfA5Ppv4TFFhEzWobQfAzuM0D/S65fS83PkSLdccAz+L/PTH6A0Hi/ LIosVlhuooK0A8hGSdkJyDM92XwKka5VTF5h0UWlg/Gf5JHy4XqXuskFSfE069ma+ h339vq9vc9MVc5GGE6PkhrRvrr4TwoxhiJ9oMcKLlyl687FT7Efvv66sxpVX8pOhZUf/ iTIboUD8JcOJv1qopHbnGWNLDKiQCritZUPX75VmqilEd9EFoDPqtTVrtgiOuI6SQBFDOnC0I6ryDJUN 94usw9UXsrrmM09xh74606A8dVqI1Ie7YYL6msNMbhWocmmAMy26O6IeRzNyDFT8icq2 /emu7Wlu4vBGUnBFufhbVT6hemSjtVFIImbseDF6bhRthY16G8n0NjFVVqvAaL+QmlxsX7f0Rnek+ sLwbM73s4tv3+A5oMc4FYarZyBrsLl/KGnNY2KCIBUJU3gl5JudN+vV7XEAQqkHY+ V9wTv7xmQwhHxqskxxhy67SLEMu4s1ckOQU7qxaO5rqSCoWQXokw3Auud9TEzGJHeV/8K+ VbUjH5Kkis1+ quPAnJvGnZabZJIDaFzRLqKwrEt1ow2nffIMLG7WpGE6yZfANmcwf5bie4dakVtk7vRrTUnaEhvESCpz 0OiE0EfHda9wpcU5a4w9OVu5f6pU0D +8G+EnM9blAcN/yOU1mjrzb1iSl8I80NQHA115BrzhjEq3nsNMJ9dvj8vVwPmjLt5qJW6p2vhH+ NOiba143ib1KydDl6y34UNizD9n8Q686r4RV2b/1lbuV2y3ruztlWRBOh5nVlDkZgKg7G/Zx+Amu/tM+ OfCq+DfE+vdW8WFrI/ad5zhnCvE+ 3OG7Az91iUfiwwCnEvi6XI7B01BC2jQnJ5FpTQ7HfiXXdsnioBvBTgkgtlfLvC2Z3B5P/DXwdaeDviVd +IYtX+Mbg6q8oqNzPEKKo0l0EM889AxCPaqwcmDy/a+ S4oI9BatHyxB42jYhpKhUzqxondQaOg7sJrim9ykAqy9gU03apo4QdBJIo4I5KqJF2ufoYYLYngo8In1 X6qW3KeYbZTaN9mOrKnezLj5ZI6983zrO3VSMJeEs0VPd7ql1CcXISxX5SKmGKU3xmO2HDI6QPkSem04 n9NwwNdXctD9gBxGgzxAOj /bTpfWXgo3hrjYHyZBlVJ0xBSh7fJt0mXfbEmW7Tl9/4JO/tKWfxQ/ WY6WU5svR8D3Rnj4LFM7eyHx11oE46n8yqIw/IBUzoBlom4cucSno92fhL3f/ j38ZBSDx8OxbQlUhdTSjR5PiZhvNn9pqHpcpi0IHGlx4xybHOihu+ModOGs6/ kNz46bG57ag98zz28A9xM9d4ZnH3DOVxhr3678vUdl9/HUAofecBxFqpq4q+ OfwZLanx1c4l3JcdDND94c11hY8k1J9yz0Gm40WtbRvSGoss5nuOhqXhPmwqIerr4mlGzrxBRmYn9lD2 YmBifGYmRcXF5yEb9zlfZg +WjHUEyybVL0Yp9j2xNxHraSryoi1MvOT9ATLL+3Zy4i15W0xgp/oH8R66fCnMWMbZ9/ IVOyhfFb7mZe7kbbnTj5xjd58cvdXcAozg9ajdCIg2hIb39lMDA2EulwOiKqeolK313VIJaZOw0vt+m+ IJ/CDdpVLomCSXoI6eVIcN2FOPP9CwOPwlsLXECp3o8ZlmVSeNW97liD3Rd5M3tBeWnpM65gVIEfpeaW /to8mfc7mQs2NAOplQpmEcp3Sn+7RAZcrSMDAbsL5iMS++JGpt1yenRnA+ Bw2bBwkxz6wVr3jllGL0Sh9WE1Q5fuMHhNT5nM1MBrDItYF0ZKkkH3bjN/EHuHLlTNtBR6orYDk0bQ+ hq10oEite3ww0/o+MabBHqsybACQe4XiWTqPvAlJi2pGirnpUGo0waR4Uo+ w1HX0w4PrO1L56KGrhT4qpjEqWzU0OEcia/ttykEOm4tYW+ZdSTB/ cYg49wO9GBkXAT7eg6FDJ0WR7JtW8Idu7b0f5QF5yIldsjBJoxq0AmPZNHFuOaYphGVU1BQeb6wFOgiL Mqmd6Mt /r4h4ApZagpYnW0KFNadysvxzImOk0biZZEW0mbp5SgBrNksBBqJfjUG+wXf3rFV6WoG+ AEIgd1qxy6Idl2x2HNI4aBTl5S6e2aal5eNVAQ3h7hLx4tB4k493Sa9kcB2P2MKq6+ QkptINIWjRrx6OUGly5oqa77+W57vpHO14RY+ 2kSFaohGDJWvkvpHrIBvdgB7LJx0U6Rw83Zu75Wr2h7m4h8TPX3jwpMWTB12TqNRWOiwIp6fiOgngxdn aHJ1XnXMvlqxIjkh2i +V3xoxwsBviC2l3c3mvSygso8O/hHnRv2k3ldwXB5vU6LKLKEiqszyYOAEt3dRpS8o0FOzj/ ULA3OQLg6SO4aEZ9wD5MG3EtEjkAWOZdsHmIA7PL4G414bcO0nUKJepWsp1SMqdmTz67Cf1i99UUA40D azvJLeCTU /mLzOPiQK3Uyepm8lyKdKDIJtmEqU0G618Um8FSVb5lB3VjuoNfGIr07y36wg2w490+ 6xChjbSaWnSLcAp9cos+Vbc2xHLywC5+s1uxlJrWwEn9ZcuiY+AYeOYzDKi5zUqW6gcBqOMY/ fOdo8JZBIpdmqJathNfzIGMLDiv3UhRlLbemvN8Z/ur655HtEdU+ 1TiB0SwA7HdxJdMtmnoltXqUDbrKQuuFAd8SABiJTt4Xyqb0oSYxYcu0JPcyRlFsbkuYOqGF1HwrLniP aQVHIxdhupOKhsMt2MkAtwNj9d367mJKfIKRcBkNCVE6WvPupSF66G2zV +n84OikV7KS0joOBineutrpV421it8WCA1QXfPHMAWBbewNhCqcI+ v6jZb9RmO0yA7W4dzvTgOOEphmTZVZCCcrhehRCjeeh3mgHrlHuUhhG0PAhio7h9FxIteC8A2DFZqN9D V5r /ia/S/fiJy8HbC5B1Q4k79zlq7r6JlZe1O7AIbJAoneSfQ9UM6lP6AooF6b3btd6vnA51xN3UXA4+ rQu5P4umP0waET3DZwlL4ab4179uLdK+4O6rrmGDp5RnH+q2X8ScPFl0t3wgkwv69cJfLWUMeDgixCHd /ZbZWu/tYea/bG9zCqR9jhcWkzHvXsi/taNzFFo4pzKbX/iOaLVtat/ L9U3UCrmLJa8eope8bf7lrr1expdaPWDPBd9fDLXdalIDx+ YTp3hfTmbXLP720wNM2ZVbJJmpstJda37P8MJvFb2lEcsKmrRmp0WdUbjET7tUQ+FZb7xl/Z+ h1anD99jZ7odhMkRcrGg1T5oT/ jmFj6phX4LMkKWsqRvjgRsHvL8TPUUJR4bedRZWKT591QCLuzMPevyFj0XrRa9AuxNmoX1qjAaEWCcnY VmmkeBvKuGVbiy +7J2oZAwfr44in75iTk/ A77W0S3Z0vbvqIRi8NHRdbDpkqFF8ygv6eRnxNsymRv4LKHVRxuGGRbLRURzfjV2wqgaHrXX1Tr2dJIP oTilr3An9lka0hvqGHnfKaoELtYn +dM48xPmZVnpWpLU9LwwbEihpzc+7xsz6vbcj00p/I5pV+ bTUpPdBbPYn5ulsn2CTlXoNw6ClGv46Zvi6GaSoRtG5Sw+ MC87Ih4mw5zlrjPBvyo8jL3rufuaDe2v8QwYRxdzTc1dTITieeKpLyqPAuZ/0Vd+ I3xXxq7cbo4zzxxRBYuimGdiYRWtIFtpYxmch6jlhrGjcob7kg2kGjD/BHy7u7R+ 8LxK07RY66A7JdifdIXd5mkDZCCCFV5mE4tNIx6dfkdpkWp0egNS9dayeSodvZ8/xX4s0/ OGYqFkx6q1j4ZwTbMX23mkfETczMBgfmoZbORwAoyIl5AOmtK2zxFV4qbcyhTk1wrRoZ7xvk6OZ5UJ9p Tgm /YKNOTlNctVWvq+ T5PnXoabxXk5hVeSDllwT2dp2t63qXGlpgTh2bKJTuUT8coCyHs02Yp3iuUcNbDComR3oxGAxkwrdKbF xfxRa +HIPBjOibERck1Zgepw5Z9LpCW0gwRwU4Lbb01nCNsVROC3CPOivkSo746w/ HRYiGPhZFGd3eKRwzpLeZ4lj9sCe7KDGzSg4pqMtIo4hw34R6acysKGuAzZlNW3SHvhl+ c10niwHz4dbhuLLrPX2eAMqu+tby2+8G2qOGCTLxRaxKUcCAP+5pX3fCy+ IoHddDPgrVheYbrf0Th4Pdsmg0/pSn4rqCQkiDepYra595OoUjnynBoMtSc1nmc+ Og2W8gJpoG7yB3KDg9346K9o3hO1HmbvIa944aqEP3sqeaDNEx21Ujc2RCd6Azcdt3wishJXkw7B8dLF JnZa6sEUylx3ybkElg90TQbatDP8cXiGzLiq6vqsZU8tiMIHQOocqgz8qsY2V +B/VL0lRqv9CvatEsH1gGcf0l4+zbWF0txbFuiPYexa2kghtrKd42fWkq8k6s5ht23V0Ug/D/ KKAw2DjcKXA3mx/EqXCWN/baGLVHwjPhkbVqm52cXsmqwWEk7juUroLdVPyi8bionV6+ sCYRIb1JATlvsD4mUV97Jcyznn2KfR3O70IAJRUhGe8P5CDKCK7mxbS5z20j9bN1ifL7/ cHUdMqIYTkF5onmCVOkqN+zWknJ2Q5HzTq6zFKYKBmQtpYVlnkeKvehvDY5TBwRcf+KPid47/WfB+ jSu1/UmP3vYncKNt+x8ExbPLuvva0heuSWlvayoKmuecemxfow+0bcN2KvOTpSjQAZv+ d76eEbhQp8agLtqGj4gDpEaM6jaf8GscERjHtB1V9k6J3/cKC5OhVj9o2wf03T+JEeck2cua5y2w/ hH45rn+4pmIctpl7cSzVFLKL1g2iHdklDSM4+6Z6pJN13QfHPzJWUA/ SdZHtcX8SN2e38KD32ok6jDH4ASeVVzbgil+UA2mrEogjFPTfUPQxFdJ4Zw+ 0AZNrYlcBEUDn345lCa9m9R5e/4fKc5Yj+ v8rrDT3nmsRabg4FQrlsLzGUXXhrzAuEPW72XmyuY3Y4xoIhx8BhS3bfEc6g/ mh3C32UKlbMpI8x7lUTjJu0rkvk65fC2zzIiyQHma8v2EmG/ qcHdWn7Pw1606tQ38ixjabsZxuyvfXAoobvTszTY9uW83gKxgtGQMdjryAQLQhUebD+FAwb8n9zr0+ p7Ck431K3tag1KZpfbjfvXHoOeOAO7zeO7bD9fteYz+PEn36trep8mRpOx1WppO50qZv0l73kvb/U/ LfkZTfxncDvjfHjXtVq7Lkzco190qTlaus3i6rca3s4hj1+ wLjnvvR8BstCyBBMoBjZUhZ9lI3WvmZ6VV8TpEnwb8sXRGMpEsLt1JbTfmFeXJzhWhyNoaFblKjg/aL+ JNabfnLvWAaNDijgO0VXPA6EwQbu0j6/4j+ V9iSex9eswF4sinABdYRHDZV7rtCXAtCrkTKOGCYZfQuf5167mTCD62rchbPIM6gzW4dffLyybuxuTqK eiH9tcdrCo3mFKILyDLnJ67Q4hrPeZYqJscgbHHlqdit5jDMs4E91dfUjiat1FwR8wtzm9ytobca98sn xgABpsdvToMNpPYSCn3Aor0M1m8LVVE8qa965oK +qLb4+6vfax/Zep+M4jVMDfawjAWcE7t9m1o7oGFdPGNdUCILaEJ0pfDdxiO/vT0ir0Qq/ RAI4NCCHgYUhew501qsRRMbk2qvoJdTN7xrMpcmtSuZXelIXiXC2hCNZmhzvUoHGFPWsuAQnb/BNr+ 97zfzj3MV0cQ0EzI6P97DNZA6cEWH0UvQd9+kSHzf2ZvDJzphdlEXmOFIOcgwvJ/1Vpvx0+ GTzH3ze5vcBpmvNXXktX7t6cL2qtUWQhFWdeD9xd88tw7z1tyDFOUio6zhcqsQ0eFqUvllCiz5x35z1I KOe1rQq6bYWiQ3XAaGdzxyJCsDx2a1DtCxsXrt2DdgGpfZJCOEwNxkLd3GtM76gmyQl4 /4n+Scay6d3Ut6JPhRbw1WmRQuqePInG2kbRnbk44rNk4sPc9gYD96S7mbvusghfOsi/kHB4s+ FblZrE5lClIKbp7dq77ZHnYf6ckZqtYMvobxHoPPJvK6v+ qIvk0wLEygC2bADLoKrdQYHgA61hvQhq57Kry4WXwTlisETqgZknhg14fB9x7Pz3rgOG1u3GWRR0scSj hCEwIiBJo3fOanLVSd6V +P/AIU8A/CSO0+JmjPBp+iYv9iwsoqxkHqDd5az03sSeIDbWeyie/ gA1RQbB82ooTVRgpjtTBwGpTmBQkh5/JFLGXzZRMCYoi0ObfE0g2Qb7e7mh2+ 6rnlcZVWE2Xrg9HA35zF9ccMKPHVk8uNdazC5JehCWArNHhu6ra/Ff4g+ OpDUqycoLmHUXB2d17gZEUu44/22ivHbwS+ JNmkwL1ub93D3rjSckrV0OnC0BbpyOyke3lgOmjW0ozMB0dHACCrNH5jPU7sUyjciDwC9gbAIyQ/ ouG8zrvjMzIRrCFiEuyANEIgoclGyu3wyVzE38ESy6P01sHanuM0tcAh3V3r5r2k2aFK2C7B4wLqO7eV xTvbuoFQSON792zCKC8SWnBMhYvHAdtrZlbYy8Uv1rDTs1U2rUpktnkZS0aBq2foaJWWxZdzLU39cl7d NLO6bv2Arqlp ++893ggc4ewpg+CqYatQpXnTtKN+rTOxHN8Z8oSVcgifi5N93/wANM+ M7Xbp5RueG8KQu12aExxXPh8F3dyZhAPzwNqqCsya0QOXJNrisUeQSuG/6QngHxG+K/ pjLFjezm09HR9d8JzNKyLDQ2b8WUlbq3GSASnPJISAOtwx3OjhvNh7hrdnxkauA+ 7tCijb1qzVwFYqyzeSPgtewFbfY2JArONGmvT6yhhnyYAOOTdOuqpck9g+K2k+PHCQW+ z6jYN5O4kjoW0w3Ndolt05ytoQpjJYpaNo3IztB1n1i1LaAmdT16bxvcyMe5FUqrnuMLa3v1tbl+ u1wklP2FldC8GmlEIJ0k4Xzhhx0jfKkVwJ5ZQHPT36f8/ fug7KzAknajJxlgRSL5uf8L33kof8S4GdrmoJ80zdXqvzHLjWchfYbYHO9ql4yc82x3SoCgT3qPp7kLF Z5C1miq1UoijAdxzotbIjKbaMXoqMEMhLq /NKopEjL6qhCenaTmK9zIhk9GH+ IdfC4hZqKGOXLNsuYVObpB222c9Ns2qFkwTcOODsaNgd7jvugkKmvi67R2t9W6vVuIBBHuuw0wzdgYNt vbNujrCfP46OMmQ3OBj5GCUBCs2iBIeimLDWliaLOTcd9kh0v97y /AbgAEbQhxs9V5UibVGZme1/ ftwMBwHnYe5gib6tCjB2EvKwThQDaoUssoZGD2KiVTU78fi4jRZaY97IaIPuUT7nocwPA+I42A+ eRXT88/lj1f3XUeU9ZylslFi5ovN2va0tjnxBNyashczV1VbKuATViS3OKywKLGDJAHnjC3AbK/btX/ qQ4XrSlD0yFHx0IDZ/tSEEhGjAM35ajPoXFlKT/ iOkSZKCUKLJuU6BX8eIvhMaaEHAh3I30U8BlJO8u2t2MRIE3W6UUsys7uaPYGcT93XAqVhL7QmibeBj+ 1qCW5ZTIzgNWroprBrDmtnwc6mvEf8Cqjoa6x6yPbicOPRBjS32zIZb44r6LG8X6rmvg4d7shUVQ9a+ U59UP90hv8w0VA5+ykOFiXVeLs7ur7B6cAqnSLRVL1mFaiqNn3ysWA6mT9iJizVsfB/ PEfk8pkyWWz8l6A2JkjukaXeZj14aghFwRFATYfLysQ6zIWypzFqznMF7bWXUesmqDNNGMw3G2/ P1GylVvCRfToBv1rvZaHYP78rZ1ruK+tvZ1h5rc5W0Qa6NP3lq0CeQnBwIC0ixibed/ Zp0TQNaIf1L6wk0HRT9YucFP7jDsq5N80lrX8o5/WTjbQSmPtF7qY+ l8J8NhtD4gv80vjLUHyCk8q2gbrMA/cBkUzeEButFdKn4aqnBlvx0b0nHk1On8uAkTnzh7W7KUQ5M0j/ Dv76ziaCaXojra5SqJKwyNZwZtAOhVhee6tll3E7kcqVzUONvHH5uXvu2WjJ1ZGufook7upSLPOhtEZ3 oUBm /JFcFVm9EauShqp3p214aQ9tmY+eknhnUg4qv2Thd5sXtgMxA5wEKsxjfhF+ u6ajOWMdcDp5Cb9SVyTyYTIazd9cR7amfZj0RVEkJci9fMVzfKgvjPvqoQSo4jfDt+ xOPwm6UhLW2TLpLCy2nWY5xiPi5fvsjKI5x9LbfMvEqgiFRmkZmvsqlH5jz0bsirHmnknZMFYyZP4KEi Nm0lmOzgHMRbnd /vEDXS5J2CAcGRjPbdCNIyTeSk3lY/NvsxAwSDFHgQ85LatHJJLlTC5qsVV5W3nfC2ci+ CWsBDhZpJ1q5+73272bbhovovqcDu3Q86bxEn/MpvHTvb5DdrN67NOAbLCHItnfdYoHC5+ RGzee1dy0kQUfQokntuWgR4ecYwh2X0hFVFuWOUacY9L9lP3DNFSz0lspvwyyayAaKk+ imRdRgqXL4Bwp4C0vhdr27lX195Qg9W1OsgTCsdQ2vFg6Cgfgw19/ UiQcIdL3I5eg2r88MNcLB4oUzLlA6HMCGBVCSGHqT/ vESxZ6h2kVPdsjnwXfWRc1yIbxPSmlvsRMLYLaWiliCf5Xk1YzbVns4/ y5bhwnLz4gsiew094iFuuqf112VExmh772HMrrL6Juv3FDAQ8IxiBiREbT0C8KMEwq4xC6KsMfNwBrZ9 p2uuDDxknAv08kVFXaK0z47tUzwYBx2n1sYEVAEIXgoUdjIYouuPVkkDI27Zr4FxEXq7CuotgJRQPSVo oIlsaYMMT2JqPmeJQSORrKIYjDEvMuQL2lTGUqcl8qmLfOv7SIzjpwCt7HaDX7KKlWkJlhpsz7lMxqEn 9iel2aw /LSLJPpfavy9qf1l+t+h3HYk5eyN6eEyU6nIMyGfljP9YC+ g7WsbqcmCc6JQpinPmcEC4ha5itTAUbQ4ymA8jmnsTkRS32R64mehpFwxlqjcr50XPzDsWoZGgeh8Ufj D6GVZ6Mn6qTJPFyqcpgg4bHpONDKLCpnISpmnALRGTH9h7 /MQXGJ5Qinn4P5em33VsIYib41DBlnBPdkpzNyJ4ednQEifBk6cOE1aoe7epc20qPP68E5+ h5Jln7048LR9oV776jVhQ0hpjiEZUd7ozUeEL4mUJ3zXUipk98o83nJWEzcLwkFUGOGNieXUzR9vbuej bWbyQT3wfjGJa6JTHHBn2cBjEQjOQsRlV9Wl0Dj0cXs1ZpBhtKo5ax8Zs3hkOJcnYwio74zAcoPym xsrE4KLJSFwHX73zTf3Z0hEliGG1ymHvBeRUa0numYfh8ZoDpqbqrJGZx03JTvAaS1hxQI4ll8l685y1 X +iu6IAzVrkg/rX287gh5jp/sBitjpjdzJk1EPTQ5yzkImrnNAeYp5vy+ ChVtqqQBSmgAyQIGjchnBDJjaA/y4/dsQNwIkQ+WbGJq8JbF62v/ o3oqOEg5CCZpwJpkWG6q0xDlGj7E2nZZGGNoFZrxaASdiRnxSLnkpHBF8qu5xcbY2PfMtLeV4ouqlcty YfgcUsVLIOTWMOOcTSiAQdlgUoV1Ih535a0qdq9mmhJ5MFo98d3ul6HM78IuXbjmflX8WG5cVXh5yb7G 3szyeZTlBYzEN0bVrkrKPUpyvLi8c7XQD07IZUyROZBBbzenFGM lK6V7qFzW7g8WuorkULsJikx68S14IfnxPHV+GaG6rqk6N7NJlOywbILNWHEMuLIHIvCFJ8TsXo42Z/ wKj8t3WjRqdSYOTaHMs1IiUSuwddC0gR2z1ZOcynmoZh0BuPIlmOvkCEhias4bys+i84Flbn+ kKl5l9KV6ke8jj2TUx/+ R5sK8qjM8zpxMBPTeTjENtjDcWPL2bC8VwAmeogLitGW9zkhLAqVBTAnmIWyOvQPwbZGPqEP5kzk0zM4 oiBmFlOwbvYNY0 +/ 6s9h9Up8uMv1ojj1bug18TptxAmySYBDsjNPqbVyRScGC6Hv6z6k9W3KUYIbhxyYATLoKqsajSjKYyRc HizAy3TJvyUxPYUGjqvA5QbuIpiCuGxSmBffeM7mt0Uyy43Ous1v564COmoZFwvi5m2iIZZSV620faju Nxc + OlpC3R6vlCttKZUFzEwpn0mgZe1SESTgiwFXG3EYNBxlwEs9Vkb3JnypXg5qYB9ac3FJn36yQ44FuwFS yBrYdosBoQjvHH2VugOxVeYFKxMavO05LLgCbeAyGXxRdroWwcfJWJWPvZuUtEN4LBiJwhMJBKQs3MKt PoOkpItn KuqA4udcOteOeaoyppk44lFf9oEJpVPksGNxHyBtC8cV0EQ6eh5kLrByyNaEZHhVBQP9INpzhmBmXpiR dLvaCLOboDedP9xlNs +AyZjxNsjXKu3Csu5003F+wzQ5guoxlAhw2ElbdhdiT+/ jvT5NMeRS7bF7K093YUE9HPWXN3ngX8TyHvZY9nYNf8vdeFfvDFrtlBGBy68dT87pI8h/2m/ qeE5c9YxXMglkYcPM0bp/qu7fyoKEOhlkXbD66dg+NVidJJYyGXZIU/er+ mCYf5s2pf1nVmiNGjZSKRy73VsMIH+ 0hVO9oQP9nIm06oHpK5I6L5BRx9onhPWeLQuTAm9gb3zI7M9PdGoNK0bddkADeyZRx74c6wjMq7QzJxJ F8lhjMzQMwTdk3fQB2ae2tdmR9Ypur4G5iqEsdOshxbptplQGZWC /E01XkSekkZhrm91ys4+8m1geOy1Z+QOi2h9icARIs+t6WX3i52QOqUVn/ jNJZq6wgYzH2XBkB7rYieXs0g/iHIp/d9e6ZwAAAMCiqq5y/ xutrrA5L9oDsMRTDGNDBZz2mcJDpAiNymVfbSlGCIivP13U1du6xks2vnNQyNaLGwtBFkmE0JvdcUyuW fhjUXZOvvMgfvGRboDWfJ038o0qt5Hozqnn5DlSAk4s3Kjcjf4TjNRZkwwBrC7AiwfHyIOSou3 +F18x7no5QHRr00dyrMkf+d9Zta492bglrqKNylTiQXMMbgtB44DcRWonv6hxQq2d1Sz1i5drMaO82/ BkRbDe9976t6InYrSdHpgwQ5xJp5ba8Um8eTCA+Ry7iDjYkddZRHlI1jC4uVV+p69r+ ftXl8gCpA7GRKiU5+7u6ruNHjUX49ankVMNoFrcFwupkt+rCr1s4K0ab1/ 5BuCt0wLijJrKTD0ADsKHSH9kbhBOfd1LSocaSAHu0ltbrjGq5RIIy9x80ETLDTJkjjez4tyZkJVrNJn NPGXajwKa7pnxNg25nBdWqrS8ftlvNdlTKZpt5i4GlRQ1bMTmxsG81KIflIeKe7VLmaKo7DBl4HKSpI4 vZXT0 /m/Rqs3KNYnWvTHBcsc1ztaIjf719iNxGVO9A/Su8LOUGYTFD41F4EGjW2HzqyEIjDu+ CYTMOPYxaHQX1Q5RDUYrgAR4qf0D8JGKbqqWataVP+EJ2euu4BP74tAZfsL4KESkabA76R+ 4jsbYLr6tvomX5n5bUF4O9B8z5Fm5rbik6PVkwhI6y9vGrVfOWnWNHbt+t/K9tfx1+ Z08JC9AB9pbLMZtA3f9V4HAmKieb6gILdh0SLfOQt8tNGmYHunBGeDIcbpTSwf/ giiulxpm3GHuzahkajclxQIPtPZPxKXTXka0zYMWUjr6gRrdZeEjaoDrLmT45xZFeMLyYW8vP/ erV1AHfOFiIVOI7QGu0VQmK9QyOKVZMbXzMiOTm34noxiPlmE5k7aHFZqBN1SNBHhkM3lGugMSREXHfv jO1qAtTxp8m +nviBbyCsEtar4R90Md2BC77D8RMenIQ9lRQ7b41/ IuKObzW3dy7fZBGIHz3jePhBfIV2gXaImIlEFwg9w1uLY9fZGTMXO9lL3pXvpTXAkAvpfxAOHXpZvjM6 CxxzKzGOMpPJOwico +WWRnnjmIEQYn+VIm8KbgUZuMxY+nfawXyyIE2zICuBvqTBorJUDON3+ HDRfgwgJGtE6fnK3cVNaQby899c7ird6u7o0Z8NyU91Et/gLBL9ydZz/ ZTpNdCOBBZo785SUCkgFS8z5rVCxARCU9JDySIXlL2a85VD0PaTKjmU0b66GQTjcrAMCeOLXaSNKC06S ymQ9Kp3lh8wuXyLgEwvFMlPEVpyGH4XPGWnege1A7REflMArQgaFmGjSz1g1A6uVhMLYutcmva7HqYvV uOfEKYfojBmVEDtwW7aNwZOCovtFjTpehuq8l1 /m599HIASKaOibn0v6932Sp07/ldm6s+fPAMvnsCAIbDYAk4f8gsiPYk/ SywhKwc04AGaQxsrWrHziZzVU85P4jxzT7WTH21QF1lYs5MXn7zICD9tLIf/ XjQgxrUqx1zQFwr3JovOyGwsaeE2+an9m36S/ Da0TP57Mzql5FTmUVnIBwYNhSa1U2947J1q7ExRqYAMjrk6nSOKsHScufwJTNmoKPePSsx8q1oa0XY4q aa /Rd1TEL0J197+/pq1v/ TU6WNpOpK20POxxs33hEsUqriupFM0HIqIZVgTl4PGcNObmjHhoN4WBY6lUwGgVktipidiX3MZB9fQ2Z FyORftQEDHMiGkMU87ZSPn6KKgcsPQGnDgRrSKmWQbyIwvfxnEOdVQYtWnICE5cCHRG0FpusvjQZIqbP D1nGrpjnnVUzRNhwL9aUffo2gsTw +t1tq/ 9kDjHP9k1hYdON3cxbaY42pH7OYgM64Y8FFf88l60FKrt8z6odKOUr2EHm8TXHlV8s3H1iqmeuHfcjWx byVKGORyTMwwyOAPmMaqzuwGZCq /bWza42F6rTrxPrIKNL2IQkhbquFzQNghndezRLrtiHFPmnYTfWVd71+ Ph1r8EmjwEnksMKDSxjJBYIvLzWVemnhJs1fNXQ06L10hZPGUomSgicxkZe67U3X64w0943T1gJxcxxn JAoNqXJ02ejdCCef81ax /bbaqDzt9x3dtTvGZr4MxW7aCC8kdgL5mbNY3YrljDYZDVq/d1xRYas+yB9m1qpjVC/ Q5RCHFgaLsLWzGz51xAYg6hyzQVV11kpnGY0MkCd9+ XzhCF1GQGDkDT7DCYVqZTlEst3zf3FkiqDGuvX6qSzqeuyuItPlSxLXobsYMtXFFDfM8zByFz2JfSIkM ezaZgvkqKdBdrRq2hDkCGk5nre9wW4 /f7DQxZWFVWe92mbY3+Dk8cErIIWUbplWMsxTo4G7jEvo2rFQnPUQy/ Xpcy5gCJ9mNoJKBWTDZCr2dEHkLc5UDpxT9CM6gncop56OsMcPqFRIHdJw/ CGuwrOZZUYKzakjBuD600EZTJPtw9ZY5sGOjKXfN9/ACckuuOCzcRKW/ulih+ AqmJpDiZy6601gLS4enHfaQpSEAJ7G0enhB80650Uy3VJ7k5lRtjjGXbH300WEgtJJT8LfSCUAWN4Rzu A3nk7 + 59mVB8bz7ByO8OwamvcXTjmYtQ59x0Xypx0IpMqyjObmsh6RzbyuxhNyTFLvFeHNMVBB4QgDL525wLqe E3i3L4pmcpRJKSwbppBhxx2ERkBKsFTV8U7J4l5tk4IClDwvEsTUIbh94xe7 /K7g1BmcvsPLhqUAvmHMM0Q7805zi9QG843ZuKzQEg+2Q6Xw03QwxuLdMXjpkYW/ TN5j9jCglOr0YMXbhJhWmEWq2vHmahJ6lybVlEJLi8ujHo1SYd8HxLxvyo0o6QFSqFae3/ iBpxtACu2WB4k6b3EYJx5xbKwGjJz6tL8OhPdaC8W/ Zi10UHVRl66lVSwF81oBX1jMD11I31w3w1WfNAVsXiMXoOBN0vcAiYxVvGI5QZ+qXP2+gfuRsE8T+ iYpAi1hjmDG4xEpvqdJAGgsLSinhsVhxfcvGuUEym5QA7eZVf5U6p874Gzuhqfu9fd+nlq7M+ 9sDDhtXpSgK2UuZJJD39vDEGeM6TqV7pj49bvb8V2nq5Pv+ bq1hKO40HoqAbUFis9XwG9uH7TufFvzAfjXmPa8vOIA2rzFzGx9UPTtfSvkuMaqrP3xVbEhyKnCqipT8 tGQorIDoNJcSPbECFJF0dCXB8HMkZH6xZsgYbvZ +XNgTw5v9viXObiCzpCfeVXwpP4DeZMFi8H+BrX4iBDlHJr/ p08x6tEPxBPRlCgM4iiTDHB6SKSvaZEa9KswKOaZMRi05xN40wQnL0oyDEiu3r1hY9j6rjqdjbngkzbo 876Kh9e3bNhleySC6vx6 +w61M7xKPaDWBEU5nS6F5y7KP162dwmtQNB1Tw8bqVe6Q39enoHOdaxI26C+ X5atADCqQTtFJYILwTHjPo2inDaIjYgysTITLYPDCZxwH0yzIiezS3uidKIT0ci92o2jGAy9c7uKida0 L5AE0G6wdGLoBqLPxKEMHvk0aLLO34Czk7nyju1PKK3XW5EGi0m0iAmqjO81hGf +k3SJXPEUBXStM252tghOg4B239qufR8O/0Uek2phws/ d4qgldd4DfpVcHFjG97rSvyjO5TA7PkPGKXxcEpHVuRtXlE6w/OT17EcfmYxDak/ 3Ud1HbeQC1TjMAAperA5UR3dReAwKFmkwqHE7ziMrtYT4l0q98M3aUfn3qqNQC8XW/ gv3AdeVmtLvl8wGF5zzbkRGS6Ub/iegWrWfLOG7ckFzPUUWi/L8q/ qIYv4q4s8qpc8O4G3o2t0UM116JNp/ E1BmIib8fE7dZzHwGdVOtydIezqmyja53fbVvX7Ja2gky84Tnv4s7kTrOFN55OJTa6wu6ar5hzIXhVjU BGjKfO69dUTZtieUTGNVKE60NvDpmezJwCB3YDJfki +J/kp1QPosTF/CW3CVJIfAQEy1KwF4evfm759nchtSywJQLOPBgLXYLoGVX1vK/ lzEH9LwR2OilQniJIIn4rk0AoRYJxN4Lqv2iWZ8OywAotBWJJEnETpEhHvU5X2UcZTeTGA/ TMkDhVgPpa3tPDxe2RsXcdgqNVjhcJkthvcYOUvJw8tIO9qsAhdDEIf2x040M0K+GHv/ NvgpT51LZsmsaZE2mJuIeFZBWG5LbVCSs5xnGYoMlHwhiPtJT/ NzgCmVav8uGINn552DFzyHf6RN1TX6im0NZ5guR4X31FUp4OD7CyvvHBGa4iTgnYMVqVajvmM6qI3QMw ieBfFM +bX0CP1uunkpMY1d2Mjifpt9XnieCn2vdxApRENh4iPapp1UgQP64rnz28Z2b2QeNaeiH/ 2EWsHFzV4jjT6qaYS6dPMLImGC21hFhlylbKG20vGLmngIopRVFZauFdh/aIHwT+ Moya8Vjd0H4wjWeiqkl4gG2i3gj1Iw8Om/hDwZqGp+JL/ EE4ifPM8qd0udjfQM8n3j3gHbc9gsSY0r8KeFBb5/WeLfib4++Qfw92A5pt8A/ Kzro2Y1pQenuJqhbMDT/t8ExAVUby/1q+ z88PLFByr5QV2mE53vhGoWs9119T4m7alX1C0FCspZggJsDJl0pAh4ga/kvat9Lvl6NmY+GhW+ xMcAmecSvRW9ejnit5khvNTWXde4NnstGa3PiepZwzpv2IbazZymeup5ej1qdzwB4wXbz82ClDUzX9vj pfHod3SQyHBtAnDuhTenFNHCLuHQuC +ONE+YKzyeP44d62RknO1EhGrx9LifysiJubKvlJYrmXtuqon/ lIoUMSqV0w5VBBMjR1Ia8X5xnsdpF5TptCi2JT5Sh19hnQZ41CrNa6up9wDhULxyrvDi6fiLhJAOj8ef lRRBffaAlD8S3HUGYx4jU6R4s +3lQHCDtvG9w6ifASQm7f/ tzkfm21lCNe2EPh4AkNvqij9knlOcaMYCcLEzRzK4MdWAwAcdYhf31g7ijdb8nCDytztDKp8JonbomHR qvLkfr81SdFL50MSd5XuQ6MPZ2XOnV2K2aemfMiHCvAh4gc34AUlTk +JUjC0QEIi0cv8V+XVu34K96ZbLbxBeRo7X6+17snLm9Eivwf5ljb9acAb5HMKc30L9fZisQYV+ cfgg1P2X+ EMW2JWyOyrZ7EJBrfO858scV2M0v1svDRS96drNgryz5e9utEQ0z92J0x8shKrvZpKT1MjCn0k7o2a9R Lkz099eRkt4LtSMQkP1q5L /QcAatg51NF8hllvuUX3mSEhzAuircpuKTyY3UdRNlIGaD0LPpw/IRCQ0VkzaZl/ MA88k9OtKDaKymP1H6O8hI4m0SebQyVbw8j8LFBlO1Qfwn2hd6cSWAtn7OpWxuZw2VtuZYg4N/Pdte/ gMfPeUTr7iwkZ3InA55AX+77c5Z9pjvrx8pTtOytAy42Fj58rr2d9KrBAn09F5ks1mjI/UPEur+ DIffF1h1m5WWQqETnG6g1P9Ff2cdt1cETu8TXhB2O14dJcylGci2bIW9mJ9426rvk7g/ cnfkGX5ltgvBzjqDENZqFJtOLHTyACXRNUCG82rKWbi8kT+7HPeKl0+3UKNhS7pOZz+ tOjus8ecmlSkIinwZKZXX/5Iwrk2UCpMGhcMpIhUj+ MkpPf8i6eHsYabN6VxTWAVHCMiNQaajotu9FQl6jHJEdXPjw00o0cs51IBn691vMAegb+ Iy2iqzHwTTbxA2DnfuxEBsU0g2C1+tp3gT9CBVaekNYPUiUbEp4YBCIYBBxPmNeCT+r3wL+NXxl/ vF6Hav9/DI79JeHF91fx0yiya6Q+WwTAqfDKO4A+ KdDKa50pbKk8AZEgL1frSxKZRusYmG3mDJn4Sm6Lbd2PEshxWFCJI0sj65N/ LBzbyYHAw2uvvhyys3dPxlohJc2z38LQzs4yyO655hLoFv9tcd+fWsOzWclAer0hYa6kR+ hSfHvxpYfBa5/Z/t/ IQuvhCJIowhfUlh4ylxIyZejpZ1rQ7U3FjiRsGjht6r1tB26v3BwgWEPwjejgDek5Q/ l0N6lpXVu49Q0UiAFdp9AtJ8mTApIj4krEFQQR6iyb4XSe5KjmercApJw50wdMpG1gD1vD7bVdNY5Qz3 KonoXG4udTQPvA0 /Uv4nK26lJpv08N0T8xt2e/AOD/ GGDAd3mcu1f6a4LD3gnRqfsgS5faKK6ImhtlanYs2Pmehh1kAhbi37C0SWLb2yh6hJTF2xGaM9pt+ sy1T536e/Lpf6YcW29UdW9t018feZ54k0uuXoH4/ x9LdAJUqoZhHHGGQkLaEh3e5YuOcRMX8P7F46xpXJC/H8WhrWeTIg3SrgZ/fd8IUJ2cEB+fJPtihj+ 1ICxbwZ2YkL4lqHD3QuPcB4CxtC/J2Enm3ov4Xz00rpcA2i1CpgX40M/Oh2lhXfgrQ/ gHze3drtfvu1WOe9jJnry+mb4MzT0PqGBA2h81BnEABywJQiygLXK7KuUkvAHxq3uxWrq072r/vOHa+ QqSJjKenFKZEzE1nZs+1nVquWIcZTqVZTm+ EJS5O1s91IyyWA9k2hrDkcxQWeBTh04fKykOg7K6XL6LXVb6VieoYxxma1NPCN76293WcyrNEApOwdpS 9Yn30e2UMqUJbb55WiiQB6UjtzXPf3evbhsaUPIulXRMBdPkLVrqQj3Kn07fqQAImZRByxG3tSZJc4gs 49DUmFhlms0T5c3I0PhDiY2dJzHI1fg78PDetqvZdA7AXVvNi7WNecqh p8tz8CgfwH5Rr7gxNSZzSKLDNQ313P7kQ1oW6fgbV4eLwMQYgH+WT7X+X+ eq6QO2glyeMUjvMqsY18y7rs8m0GV7zHquidAqJ3QzaFsoBkaz8crKz5bOENiV9jDnMEXZ7U6+ wPqduhs/ iTF0itg2eWbd4ltNpCYdDQh3tFqkPEmSn8tgk5hFLRae1s4fVLgwnz5dp2CdAdyOH5nAWCD9ewkJr6jO jiYyYsf8UNF48m5 /uJatxN0yyO6I3f22O4zEaqdXuS3yUzX3cxipO6fbKr+ bWwrVyqAk3lfCvr9f8aonqiy2nnXd99AyZYkopwIwq7tCzgAYcQEhVJuUFEiGCNDgnsxQWxNOEZ/ UsCme27CK5KnMJwHph395d9ccz689MkyFvcUMnVfLavg0reat6OuI226aLWq69PO3H9b2P/ADW/ Al4xqiabsPZtkbg6HNrid9f3GN2CpneCuC4oOLT8A1zybWbtyKdhefMRV1ttBSO+D/BTszxy6R/ jZrfhjxxZ/DvX/Kz78x0J2oplmzTOqXhY4sweS/3N894ey2uD0v/ yYGsqhYeyTq62kG7zhnfXnhRzIn7Y3i0XwlYvuC5M3B0V66mg34edj2jjMsA8o3Mx2WH/ Evvj5yc2c4HjyqefwwZTKuawTvcJmcDmXwk/5GGU4aK57D/CDS/wBnG+8CeDPD+t+OfhpY/ DbD5rdFxFbO1C2dxe2iGiV5KjY8KzrwzOt+Lk+H+u2dy+jwkByE0DhC3Pyv12EmdjjR+ JW0Ckmb0aohlFsQd17rbi3a9oXk8ckv8MrTfn3N52F6Vzl7YhA4Et8NF6nTmZzZEyVrbGjpk18L4ndzQ c75eXi05e +6hWgcYaEKHTyi1uOaymPZ00kUpgDnccG8cB6miFlToHafGm5HzJ5boLEL/ mOZ9yYdFc7yLrWIbDk2Y7p3iAtEVn/jSY+SSmQ6kf/XRtxOtaFW0Q0r8/ Y3SabLkeO9wqj4pw0wL1YgE1em65F9g7SYtfHHVWShinK2d4US8k8I5ll5+ eFTI4yP1350QZ5nwwHALgWAe5MdtCcySGHOlHIlo3TmgvH03cGIcxg+KJNS8R/ 64vkn8WDXuOIMeDBkZdHMZ7VXA7byaQIJxySLDuU2oiE3scliBiTAdTUyoxwT1kyCsy2wklrC7e7QE/ jTjmuHw/0txgTJeVJy3cLRZWTt9KBKrGaN9zt4htA2q09m/wCzz+01a/HH4I+WmqqpKq7p7/ w4nbert4g5Az3VyOgwdkcTcn3FFs1ZU3Y4I8hY0tq4rlRnp7b+FN7TsGhZjU0zhyw3vkS+u/ JmzLhtTDpmyT7u1tPI2LJ8JhuKVBPq6Ky75f7slzw4DUxSuwWCQl7MYwaKJhY6q+uJYR/hH72udFh/ zBe0Clo0nA3N/j6/lxgkTb2N2F71t3I6HeUPmitHPzNcxFGLgY+ C2Tgp2Iu28a4AeGi7FuIJvTcb98RxBIbh2wpB/wBL/i/ xF4a1YvMmvk0eycqzcX9c84spxz9ka2HoOz5ygmoYTuX8gdAj7hCl2QJBy0koYE2Alrf7yr7YUo6CQqy vl973y5i98Wba466Iut6jhjmpjWxSo3rJtnDThZd + 0c24tkg9ZGEvEAOMy7jc7ROrJnah4AkymAtVO4rgwsp2FDN5JymnteC2qub0W6yj4PWKNyynQ2zyAcCw CjMkJVNZ3oPLHDsA9ZWtWSssSLJyZqmgqzq9wR9yYHhudvOk5z3y /kOXn3Dzwt1loOLMQtWbHvrH1i3VwgD8N9WvC/ YXxzdK9c1Eeu1q1tU3MbtZ1JOQOd6t2kEBvAcwRiiCyxcxK3bplCw4UPQX1ji9ZO5MNXTMhr5FLrbZJj FV9t5HtG1R + B90RYi1ZRxdmwx5QsjKj0n9JjAgLxW4wxBc6dzzsSt1eyjmDHEC1bS1pxL7BdFn4y8S0eESTois6OOBV 30Wut /KUdj22m0KGSWkRtEXMzZm2/PWc3xeJuwuk6iUJzu9DO8v0ZY9e6ajgkayx3HhCs6Ox/etB4ca4s+a9+ 7K28FkIOPSUWE40rX6rObpDiY4OTZU82i2B/ NnrK3saqzs8q2gXMiOrQXx6GywLKVVV3vP9DxgKvL4O3WuzdFqbedEZMUzFPhWnq8D+ KvSaxZIgU3jEHLG8poMwYAqqo8pLota3kN9jLG0bmLlZMApOE7eueB7eOceQ6+ lMC0aRWFJ78zY8h61VjiZwt+3mAtOR7gpbMB3i1Jw9xp7OQgExNzNpdFKePxJFmvxTpefRvuyLpL1g+ fNd0kd5i4HZ6DXrvViKdrj6SNraQ46KIv1tDdgXp3gR9x2crUdyn8Wsa9tmknD14vuWYe+ jwM6OrhxVp1jCNir7rNJ9kKhTOIOM+3XGuXTzcL4z75ViO/NmtgyVrSC9l+ 4P6v9LncqHg6d0c695y794K80LEKOw5GtFuG7DWc8iNlzZOKZIAauOWVBmiXOVIUo25Ak8yHvWjXyxeC 9a021 /qNHOQ72xlI3Jcw7JraqcQFCuZsLLWynYFOHWSl9v/4y+BgTl0pxe9VJk07N74Btcb+ bWhf0W5wRz1iMTodhkGTEnr87XvvQnOm8Ji39seZEtMTrOvxBlfQ4HYQkhptthy7dq2e84S1cJc5gxn2 k9zqAvk2g4k785cCUfaqhbqPWwLHrvbX51B7rUGy3DUABNj6GNww3K5MwgaS8lmVtpFIo8jncDkE6 /nD8enmCN9mzwWs/KBN4dhdxnzrx6LG9yx+r9WEPR12rj5idio+XQLhLS+ q3S0b399BjtVRNvQfKCjtoq63okiXneTHkryicadc1l86Weaq3as9wX5yXC7n28xat22d1tYAb5UtDtS ocufx5w917I0up + Ucp8KqrRCTZbBoqKNGfi6jhaZJUd3JkgnOs40P8kboae8jtuSIuJ7HAhER7femr1r2DvHCh9FL0W9dGi XtraXarqQtJ / osuVbGDeLYguAvyKILcBthsqemnRcOpYa7O7PhgwnaHrnfK1llmzLzsWRVf89waj7hqoRGnNdpmnQ4iB 4TxMQr0IQ8F7iIDa1144VHz2IF8vrugENObbhWcb2asv7d0 /g0KNv1rsOSLWu+R4B5dNRohP/Dei+ BgUU1lHQNfprhjXoCwXOuU4d8A1UPtLcy69J7mGh3uNB1fVpodpzs3qeMxC0u7XszeY5Wi/DH/ JNoojzbeGYPanx3cPz/5nKfhXiqcBCxZkg6XBLJcCKkvBhsC9lhANO8hLU515IGKx1e3fwhs+ wdxuOr5fNc68a+N8rA55BBEb3Vsvze9q8P0q2EwryeOm5F+ q6YGYOuC5J6muryqp5Q1MbPP2yjginqU1Cg+a1bM/XxmDADBoq2bsr6oKBeX1DYoE0mohi44lh9v0e+ Zur05t2hivyVlsAC5SLtTdqb7mU35dV9zi0ZmajWa+eC5/ayEji24F5hb78mJfmd7jhaQ7XIJFUi/ DSI4n0B0U2dHU1tmge+mD6e8uI0SxXk4tu6VpmuktBu8FKrt2GEbN7aUII4bHblprghwJJfxdhBX+ SsGgUn9BiDElnawwzJdlxkkWzPSDF1gwd5rYftSudDrkk06JqmpmwcTkovL4c241Y0ywK1K5Tiu144os sESI5gdOqx1Bnx0l9i5w0SDO27p0jpLcvUt9AzVCtY2r81oGG3gYT5CoaylDxa9C8yxau73243a 7+oKLG7x7jVlqLUswZIRjXuMBDbQwXCfv++/ f740gmsbh14TULQl8zrm66Kljd5lT00AR7RQQClWuuSQ90j5t7vQQ2bCGMEO2qjMrXA1jP2kqC4UauTB lTkguxHtfQk53aNbFN3uak7sbdGhmOuFKvly3vj /nETUip1i7UcKogZCZeP0mj2fECQFJzyyz2K5twQmLnddzM4B3HJg5Ooii0fJfY+ kqqcjUDfwsGlLzcwItecfdchONp9EBP5adYPXvbqhF5+ 2BopvQA7GwBVZLDwccEdnv7rHrdpHHeVcGKnSQIsM0w9cdTmk76uts5KBKkCetU/M9Wtkuzu1JcGV4i+ Iv5ghJgGjGK6oruTX29PQUGCh50o9m9miaFLX6jxkuEar2IEsANcrfYkFoaN8o/ 7H0SkQnO7swwjz6Mxj8Hs9f8q4yhHY18yAU+ jWlrZblZ7EPRsqtUjxe9RUSp7AJWlSw3Ux4jNTG1EzXJmoADQveII9+ XiWhTlJx6QD0Z3x4HjIKWM3nV7sYtWUm1EZaYrhLPZNfas3g/TIp5bq3lrOU/ sQb7fPfDUR6otSu9sPfpZBW6rz0Qk1Xgh5BSeg6G/R7M536gNOCLb4wG6+ 84GUtk7zaoGazM1z4fH4ybe0vsiO2NKCSxjp02DWbTpBXPFGQUGor4gXBDWPXY6RNIbkmx6r5HVnoa4X vVj2V80hkfxM /Sfl9Sl9MCJpAoS+Ab3iqz0kcZwusGUNxsa3mC0nW2ocn6A487UVbtGmPlPzKLIU6Bv8/ VJnL9ss5QFeBLGzD68pTy9vvm0A68dVQpeHCwqen8TOzn9lgKoF/D/ yYlftw7RRBxgn1LwLsUxEwmaA3esf1JmuYsv9AI9EZaEYdnf06e+YfOvCng+/v/ LjvXpbALtG2liZwlpMgqovxUbBcyaHaVua9eJdZOrgnYc+d7wIyuFS8IQxcEVS0tjszB5D/ NkrziB9t0riHnN9eCjH17asxfQ1T9eDueZQG3X8vYps2HzpYSxWt13RYCROER03qD7dqONjCcdqp41tE vxso7I8e8hA91bgg5zGGdKQ5XHpzLOsk4J0mcHYIGwzOZpGNc9ZjHs1k8VZtt5p /ZNzlFjy5IyAbPehaUgFUVBUW4bZm+RTvbpYCFzYAE0Zcu+60pdS2WvF06S/ 0rrQIhjWnadgbgHDfIs2awwCHa78wYcF9ym3dh5LZ9J4piGNSEkYF3yG5mkA9NaOmLuEMUijy1NI2/ 4EgM9M2hLrTob3jRU8CZ1jPTc4sdj/2NbscgWV63gjiUvLCcnncXF1zEaGeqmdr/ SzhZ4p89wmsfMiFpKwRs/ gin6zQ1zi8MPX3w0s7ilWqLCiLaOxMopo1qfgrOJao4TJUUHJhCtPEWrRGPJ2/ gZoAhSG3g1Fdho12Ke703QJAcR89tUtFigDRv/EjXqx1Gk5m2DhsOy2zZyBu73steP677w+ SkanwezZCvi9mFmI12PoZI3oZCDsr6EiFEq+VZWP0VAhBprK6ZqQNFbuY/UF9zI5a+ BOF6V39puzBWDlWJ7N9hCh9tlkg8EHgiQiynynGtPVz7BDeeWPbN2yoG2c+ QmaqMlGm8DrqvhySJQKAkpQRkKt87M7XhymSOEB3rfskwqeLnL/AqF24Ru5v/Ff4J/ FjxJILawvrCPwuJJr+KLUrbULfULvUZTLGsq/ igw1owXTRRdsB2xFnFQBgzTkY4xJzxJ5kLurz0kQk0RW4cs024s3Ud+ cjIfpHDq8Yr2ertM5nI6BILS0dHLS1n6iCkzucGrsVwOo1TlHetqNo35hV04p/ g6AwqrGSn8WDR5oO20Pi5cTh8z17bVc8Qw/IN046t3BF3pwaNIkkt8YbWVf94a51npR8ex/ eisGVp0L4obnI1lrNFgM5j6A8gf95jPHuko2aZckFbkXUC8irLsnUlAK3gdIp2ot+HTom2Z6QTY/ WWwraKybe9aRH2EALZXBTrTG+wodiZadcFuH6jUmuPm2rloTGQ5FP1D8ileejHj5us3utvP23oYC5/ StW3d9sydTA3EiJ6eOTj1WTA666WsFZOASw0ykJ706ZNx3IvKKcXSczf7pa3hasF8/ GSDYE5LX1M16DPSafTkIDTlqRXicxDq5pv9ussLrgViws+ 9TrcY9IeLvU6qoNG74JFny4ogXVX54jOlSo2Zj7t7RqV6PwL9EJOTActJ6eExxsgIgDd0dkJHySUFeRP dz3 +fJVYO2K8NTt1rsJvq7INGssvUBlKm8xQHDM/BQWjuTfVr7bfn+kD3hGPjcelV6+ jtT4MhiRi0S0CXN7rvh0n1ZBEg9wYXb4zlLu5lX9OrEhb2cyxWe4gPFByN6gQ6v+ VnY1yPVn7a9ySCz6WIyXTD9p9gHqIJtzR5UbffKfnXnRgy2eCtfOq6lFkyACW5/ SOb9kKirtLdBJaAL2sHxAmDvhdvxe6QO/xyhAiQ0l89O/ zxSfqrTQk4qvP7XaPbWYkiNTGk8Vn04KFjwEy5RAwI8wAAQeay+r+GvDH7I+h6NcXz+ RxHmeS8G2O4oXQ3TONofBIv00sAByNwyHBROXO1xdU2hxtljSbMiS/ Bt5KLlXw9empCm4KpcBx3pXRhZOlOT1M9vF5lbsuQHCKnDZOUT+ 5sazmIXIVfUBn5ArRaf3E432ZzGdtfRAQu9J5WdUxH0RBZdGQ8ksF3S9EJYznWixGZEgbec3p3o1/ 6syNtwqW4Z6I5PkPmtciCc9zgE9yu/ HctB8zmA3Usg1vqRyymvV3tNHqBSepNzpiwhxYLkWBxMy6TG4hIdmzfYu7odY66pLahO4ApD9c9TfJyJ K4cNMg3kWJBkUggAxQQtcMCgaeEX54vk +Qy/XmhMaVy7Rrlcno8ajurikIzkhirC+NR/gP8z6zm31Zv8qyfCcQv56CMlEVIjsAHb8ft7LsWHb+ Gcvf3JfTHalHzFnHq9mhHIcEvsW2apHB5h9vnpqHkat3aJoA71uXslJH1DlmfhkqHc+ RerYDdiybl9zBVWzY8PhfpHsVkU4XZ1uFdXcm8dhQ9sK1exZevLcUNE1Jpmn2jIQSossWPJpVuzvWTgQ IDjoa4dd4pKkch45tQQcXNmCprjnGWVuTlKdpVBqinF +oyrQBp1etTl2cjF1He9jppA0FjsTAKvUgTDYyzvUilKO+sFIjRdiF9du9Q2zPgz1w07shOZ0n/B+ peXKE1Pr6Sy2PRS2tQdfUbalrXfPmiqGJc4WP5UdyXodfvTOL1sOanzSXTAJgw2z+GPwq+ PpaHLwy7wURp7iSFUSCKUnnclzkanX91tlqnVvPTsHLF1UFcYIQYD7h90h9/ RAyJXHHri3dgN5ky9iCTUSNsF9r9KP+ZGNwsA1vCz8Ab88f2GuxvbLkbmxkA5Oy/ JSvfLxiRTvYznlmdla61q7Q0uz5xRjHh40A2KgAcg+ A6gdfswyTyrgiMqXMP1c4UHwGU3S92rkw5Dqqw05pbr0FW2QoQlIsSJyQV5zqGVBUZAmEZZ7RqJ+ 1QG46M07pynAu9j1QWr83BV1V7H/fSjN4vEH3k+7ZeOWoMDIe4c+2NQPd3MmmkU1vKxH7wXXHc5s8c/ AEZdfst/XzAAjaSdvHyY20Wl5fwg8xjnI7kgDAQH2kA4q9gut7F+ hUUcRuKijXGzq9R8Px3ZUlOdVBjPaXbeRG8oMySnibqw1vB+RsOAuSNCgmsOHMUBPiko5T3YplH8pBX4 + Q0JIJXm8BAdUoRo8lf28M8AaF67IWM3dOKCPFcxuHQ5MPyhgtfv6qOu8bnaVnm4rizF3s1vsJuPhoK2K jLuFumJjk08hfT0Vw +W8WL470Ok2a54/ F9U7i4w4UYJkxj3KaMxS80hUFilf5Ea6WTXbMDwtDu1idZ7FhbvvFLZJ5cNLeHErp6wIAudKB0DXASCe 4D5m20eokwijt +rkB9b3mxvA/Iz/wBd+Iv+yfsnhsF0F8ApDhl3rz1/ad3RX4CgoK3t/ hLkpAFM69LTTiOIYAAWzrarnCBDJi6smqvqZGeedBbIuZCy5dc5NcaMWHkcH2epdxvo+ VH7H7v8XA0p3v3U9rMKhfQ8rXTL9toneAvZ6BSV6R5niEeZNgUi+ eahqrwOszm5j7vraUUdX8G6lDCj5TjMozQcuFdPqnmKIwwE4jGZgnMxSyJW7VmoFPglwmw3tLNSsnL87 bKApeNpreId3nqWdi4RUtml /ahcdCvtGsM3m6fqYHmujWzW0PIrTL/MaBgfvv5Tdk5ah8E1Gxu9Gfd/ pr9gFkL5ejuIC3cmPegpu5nSCWoiB6yjbz/bJUWcSPtg+ ugW6qxT15L6q7y3j0Sznr7RamZpYFgCluqsGGNcNcUBosnywoQ29zF+x6ma4zF2rtF1ehdo5wzeAB8AY /mqCcVKHV81HGbYH8jxm2NwIsw1E29NJHhBSL4FVqYFVEh1rc6zO/ bVu6zSGUcJ7jqphuDlRZEJCH4mo4aUQ1uiizKZeKUCAn0rC3GX0y0qHG+yWoe+ B8EezjTfZOw32V5rggkNwwOTvSGKfn7raH0OmgliXBIS35vk4iNRQcGsn0ky8qL3ofbz0Clil0zc9kvb +TfCh26Fm77vBLRmjhv0t8brcQ8ra1KIMRnxOO/0usEvz3UTMMZKziOq8M+9ehtmQYUYin9W3SKhZrMf /e53X3zk7C0XDQbGaQk6ef6W+EQ5ntbZDDkjIP3pqR6iM0AJwxcTWjIFUt+ Hq4jzmNjzRnzUIpv13fSwp5aBe0LS5Cd0blHEan211zBrEUbz9iL6rB4DX7OciTlqRtGJbdg6sZUeIvG hnnAyav3u0jr7W407xc3ekDvvgDKbos6t /xUIl1dUtGiJOrC21KkBcoVrzCaNcP5BO3ozBLWQ+sya/Qf8iWZNPgi+ 0joBcA1OKivEq3Xc5sjehvW3sxoRVyRCdY36wnF6ZahEAYf1whKrEF7RHchBYjXxN0VQhIVXt9UWtHzY LDbU5oXQOP7eR6vt5fsEHiCmmM0PGI7IAFjD75hRhPqsYVpAyhkmEHMpJih6di0oiTe1yc4I11cSARkb lwCx0dGowdWKsD9DUEF91zAXdNSGDv54zu945PWK4ex81ti0 u9+mi/YOkjqkPUbi88tTO+ ofOavBr12WrFHKfly9gz8iWK4woNA5A1RHry6A1XYxndLQLlZY8fnyIHlW1WNAZhFx+ DGcdhdZLjBtr39O79N4bTRUGiqsPMwz5jYRLGD2mhl06759rEfdAZyeZG7sOu3CLRCqndxldArELXFdS jpB4ysHcQ5hpXgNzcVOxk9qQmE04U1dt8EbcoDLnJzRTFCR7OcvLI908gdS4TlpWZG9l00C80C2pRtxu 3wSic3ULywJgQtZNqIx9PbtEGa1PjvN4a69v719gk83Gn /LI7d6JfRb4Jlv23aZXT3Uz9KHrdsbxgOllmuLiAYq+goJ9ZIODvSzYAhQi6GcQ1hADrGcS8vo9f6+ 9qPomVjZI9j2sGoysA959bBDLHsU3LRL+DFup3f04cxMlKhTmjIbg3ahHnOS2fqz8FWQRGIQRl/ BiAiXxE3Jrpr1N9nBIchFlZHht0SHJYDS2ki4E/ 3SJgyBhCQd8qpOAAsf9WM2hKQqYDFHLmJLds4n4lFasjM0iZJUtUZrcoWcz+ akxCu2nbb9Kbsvbzzeb7Vtv6U60/ Ub0PQFFxfnQ1FW6hqYUfVpD37yLqIygbKr5k6AE5niEPGcaUQNjVvzQxvPYZVcTT7idS5OameSEl9rtn jBCC3E2fCO +2UlYKA5jiibOvzUnAfiGdzPAdiUJ8O6lyiEP/ o3LKS8BreqpHRfGSDDpGPw7naQ1oM32ggxgNWnkICtUU38gse9Sj9MOmB3DtxZQ+ XB5TI2Z0cPZX3aBERsSv6+haIVo6UbqwYpwAs98lSoD3iciEmUFxlnKr/w0R3jNr0Nkz5iIj/+ W6NFwIgJA6ffZ8CytKAHD6ujSTAvoko7Y085TX3byNm72g1rI2h4plrsK4fEQyuY9djAP/ cZPiEkSqnjLJ6q4tudp0mijwxYTwTOSj+ G1EwCVmaHvefwUDqvYMPaHoeTDGJjSkrwtVLjGSi90NpPT9RjqGrK6Gd+ytu4g7TxzdkEf2EUgQ6HBqT +xm01lPfqoaOG99C0mzF/PADECGUFoUuulWBHbv8t+HFDq1VhsQ7Hvo/ rqXqmlGtZh07tgEKqsWrrdaoxSOD7b88dp+ml7b+ FvA7nE2prJ6FkFbTrAawOTp28DwbpJHiKVxKdpPBzOzD9VCHfi8mdBlh+ClZo2lMRfvBSgtYZtHC/ ruEcdt387+0lShotFDQbcbF8j1McYmF+M2UlABO/yGMKE3uspFP4nSfzk/ZRu+Q+bd201/ Y0GQAqfPZ5tJ4xk17QdOf3+GLq/paJgjLDCK1RMGeCrmmabDCPE2asIBAMxEUBZNiXU/ MKyjTEIEWyCykm44GmWwfvfwAWvDxv1YPClkfR8n5naJ2nCuWO7UGzTCoR5ky0nl3llmQpt/ d5w0rc7a8ovptcUsaiwb15gqnl8anOJyBgab0yrfh3xmeCsNWorcw7hQmgx1ZU+W30ymuKTQNSfX+ nISXNGwzLFMPm5WoxldJk/ Sm106eWBFfQY594xyFaSfmATH6tCceNOk5PChcpBGIBSV7s7kr5FXHEFYkWKJXXb7k2qtpW2MWmOqjF0 IkyxQAjjtm2C9Eewf /iCBIzdf06L01Bl20ym3r7hvfIgR86ot/ 697T8YCJH8qZBjcyKVawWHBSFUW7mcLRwIKPJ7CHYd0lIGZSVWiaMO4xmflbOwqiFGxBYJiUpXo4ujG2 obvgjLUy2nrJre0KlV2C / cYCGpR97lvXSqpLv9OQKKoVHcYMLJjVktyPWbV7TnUJtbYUQQKARVwKo1KX6pEVLwZWbwy3mOU7o9oM0 nEQ39aSMZw7zGbOEThXm5nhN6iI9xTXwWCk1usto /BciYmUfZS4o+DX3d33/KR4kTO3z+6vpe3/Aa3h2uwG8HByq7neu+ smoife6FZT48waZphNM1wN0JqfbWOgc9GHDMkzVVGwtwWlg8ytgx5p8qzlbWExqplNNrfepax1w2Xequ pfwqDbjmLDO4AyNM / yhthbpYYNPxgCOCGEe6CqJAOnaMJ4e8MpbFNYWC7fHBEjlo5NkANTsTNDkJUVxL1LKnaasr3BtK5Ir8x 2Hnnjwg2umMqGsVJyisMoz25bg1Vylq4Z7djjCSg34HIb5GpsQF8Fbz2498e /zhhWzzW1Mntvb3vwe59p+ w950YVAdn6tu343cW1phCOkuKlx0MDS3bTfmZCZGie687abbbReX8n0yfyOpuWUZm0ibMj2m1IwihWVp t2MNN1lFHDmocMwv1 + 1lxJNiQPqChHjUQKpAyZ49LopjGiNb9hiYmjOVmu9lqZCxoosqhzjS609qJMNY5QerfVS2i3AVfFQxjO 5xE7u8sawzkrwFzcUhqOJmpktK6pbuz5UtME3zGzkQb0kEckOycuqdcDtlZ4D6Wzu6 /f8A8Nt+ oA4LOzS32faATWp3c3kuzeF3BRA0FxyWhHxac5zcCbiXN27EKNkQeP2vZjB99psCZrnfBqEnlk8xv5n7 fwDULhmRbrXogx5zLC4T87q2JCRPko8KepuubXxembeY3yqDZSt9DqyAMzNoPqOKbp9GMxFQ5urC7uia qptUDyOpjwSSqRpvVPNR PRpdiL3yPDR68JPqlI3YaPZPkxKWSQHRgVzXREAISSKyB9xHCAV8fHdn7o6miZBlqmc+1/yMJwS+ Mr8j90ctnPoxIi0uK8jM0Sf2NmVeQ0GwIvmxJVGCWXFJyUISox+ZrNlXOdqTrtzCb4UjVReAy/ 6RLIElPnBVKxRQ+VEFRd+ADLvu4qfJpStYvrVfmz/6HaxOJJoJVjkgljiFqQvzzA+ XnZgyCGyDHYdeVsPzfervJ6Dak4wi8kc8iccLrDV09tJMQs4O0uAV5JulvdZ+ 8IFUFsRcy3uQD5Z39QYiDUCm2lwTy1+ 30vWRQmjGSko8Dzq3rhn3d2s7UhWHbal1KLHonPsvDfKBbCOiRiDuWTYFdYEGVSotkaZ9/d6ZBD+ 3nT5acEGjB1SN5IUVhRBMMemUBfBUfvckJeTkUtfCPQkyc9kt728egunDJlqKPx2E8F31gkPjURNeFDu lYUwG9IX6qnniAgIgr52fYuAkaWsDSIdZHpwCPS1ciGtTDJ29SfqjcCRtwqaHNNwkvH2XLIu61Tbk0kJ w7jAWZhH7jOGJEf6GtGyWLhx6MlMnPCxkcm2WjnQ6ul8yELwH1PTfrgkG PnHhS9wrvdSLSKO4JXYtdBneAP7FSd8qTS0BZmINGhPTaJ3RAaAa9UZWBpF28HdoGszefT9pTlWBnqrz xAD5KWh2r0gPHfpOKucr NDY4EcwNGruagJ8dDRKknDRy0emwAFfV4EHPUUrgzFFjFyy+ Cl1H1CrVyK3K8AC7CyQa70tUiVxgi56S2Hk/ LX595IuqSHDqpThDhxDiDhBTOnwUdR2l1d1B2ZLDT4acXoLLgZzUOynLi9GaWuvyCGRvughkrKYjX8kc w8vIX0vCk0XkuvgUhSXX + JT1j8dCpsSBykFq4l5ql2dYARQxyWYlPqPwgztxwz9KSmMyuhCh6aVKGd3PT8dPiG1HCXc0DUfVNWhhl I3Bt /3smzbEjwpiIyK+/ bzgIeuf9P6xRdpg3jj9ZYsOcTA0pq9qgu0JVtvV5CnsrwAn4wewfc6KmvEIvOCQ26J6IG5FpqIPBwNj9 bstpiJdpnibyTlrxpUyLnAmZBPrOohCuZqztvLvnJ3PDLit6rafYvHaCJMzWZAdA +EMyNtyiUIOKzIBkZD9JsX7BsAWyqOJOG+ wJYKHw9cGK6THWIG05mVNVTtHvocjqXZjIpGKPlE1jjucYC53m/09UOmoqSXltfW/ 2n09hfs3j3OxucoM3lgCn+aY+UYgjR+B1l9a3nQPimQopIiougJxw1Ph+ QrV9h2o5GfaQNp9nDzttTunn6a64XS7n5ym7NYCtxMyZphqZLNr4a6rEbpIrbDMOMFCtFssbJRMJT+ kVZtgO5GFEEXvQPROi52n0bakPKlEt2OabEHlWYUob3tdpSIY1QDFroRfsbXgsHVuYzfZ4f0a0oMzl1/ zQTmalRr6s40nxP+/ zhjT3uEXLCdNTH8pG6lRG9EmYz2zaWLTRoGjY8G6P52jqtwxRSS5ussZEW0LNTksDR3pGHDwSbHrvKqD jGB7Ztd5HkXoYC8ONhqIAgTywL56Hf2PF7LMIGVyIfVA6tMEaKflNkhSicMQGUh8qCXdxFXkXVXzpjI4 40zYQVtR4pKaN1ot6z1NYmiAFcf822vvx6uORV15Y6nkn / Ign8J1eGNxgB4t2YXIqVD2E2NPibRGbicXJTUuOhnevofwQazAqlpVMZYICklbFSx3FrPNJs1llD8sYB hhO2AiPlVcPfMQZl04ssxnsiTO8WoyNnHcz3BUExV9SefddoopF48HNL16vfYrqFk1E +m90bnhkAUFFjKjfZkC7FK9NEDqDfZ+dBlRpxZTGEJbvGacD3ec5zmZKbTci0bhEbOvB+ lgt00nNqps637ZWnqJNE9ZRN46wZzt1u1Xs8xQyJ4IwrEE2UicVZEAuU9Mh5cFXtdeDPWOsSIz/ qyqgezJjzekRKKOGODuEfOzUfahWoTUhJ1dP5hFAizZkrSCgqXemcB2eQQDc+ 1uGQqe8aj8mGEaJEW2aO5b5ofsQRdoWvBdqljHd6MusIdEvCRWCUYepQTk+ DNUS3J2IKNg8yty6hfMdjf5zzsc+AmndZoSwHthsiNO5ONXJW4p5H2PsvMcKOGPHBcM1bkyZVp6yiL+ i5c11ikkr1Zc6Rd5PyFHNYv7ydi6oeUQ0/yPL7+ oH4Z0Fe5L4xx9uiicKncBlsZGfQ95pLxfsbqf93CXFgaPx2w4G8MUbO5jbsqEGKzjxZtDD/Qvy1ija/ mpzo61xhwY7+zQX/ 8h46U5St9vs9c4pcLJOnzOLle6pAjXZQnfMiejxNzikUrgoWMNh8xAuqo5rr3LXeEU0Fv2sIBb5jpvna hz4GfxNUXLQ3wXrfwNABssyEaC /plG8G0ds3sQw+mvapqEMI0+ N3m3vPCmrR0dpwgfBvCocPgozWnR8OdQw9S2pVfFdwcD8part1547Mcq78fo2RRotKEQ2v1aCi8o/ zqEDku0zlNMj96TyButnt38Wm3xvMFTwuEotzm7rXvIvGM0NBnA9kwxaAYAanES2GWR2FL5WzzzNohlm qZax28OZwPal6Bzj8xIaCPVlnHdbqP1nYuCM0caon5psKttAQuLlH4H41PeSfN8WOTciHrQAmdjFeKye nEdfNlXMOOoblnKGQxAe9jhkXgHRI64dM /B/hJR1tD7cz/ cLgYsKZgM7vC7Xo8BjbVJS9ZOT20jbbJRgKQag8lqB7Zpz5e3MJolqxkFUXZpkHEtBQqCGaxH+ 8HY77s3b88DzL6N5wEqvWr6CfFwV6lZRYGqS8GJo9psho1SlEZa6gQ8x5u+ 9Vej5FI0pEs0VuPGisJrnOApyn5dqVDdJzTvOAmBzF4LfSHLIQwXB3NTM61p2DKS96q4IaAtDxHTf+ j5hdVAuEclAadJmwy03M6qMlr5mOJTwKw60Y2pmFaLPPqDiuV0QEVaOkhL9qeFQw0z1I0yEPoUxXTpyS y5g8qmQPrVH7s6rTYMcFIpXJLQlsy4dNYqCBnSrt426R5bwe3qeEqYZq44cDvpJLypZYPIRqP2gJzbet wrmb6gHroAfg2EEAHgDmnFoKOU mTg5fxM2Z4SXs+ C015Mi6buEdA1OayNAGx6zKutQWDOuRzB23XBpYKSrACZrBusSqKx3nvelC0X2j8TPf2Mr5EIe6qklym swElx3jFHE2ScKGjvOIOJs8voLzCO +TZIeM1TdJ1DJk4XcNaj/ 0rp0EIxn2w4SXHKOEF8VWtN1w0dTE0yUVa0msBfZIKfR96VTJnVBoyio0y72zo+ lUgMsj7p1JDAYv5XvKkcQX5rJNfVfj4QPPEr4zfJK8E8wIToia3lajqLb12AwvpJMFrDlhR69w40H/ mFnkGLUucToBEVsaUEvarh7WoArAAat1yJQNojlYFrC7cgIXxCwGTQcqgvpoPkYpousr4T4IrtDoPfpM HoHs3NoiA0IKhz181KByULfHdVE73JnacOx83ctmxWhooC1amLacsstcaIilAhY67O7a0Cyg +F/IM4YKrep2W/GxDwQc7qLUU0C0PlUU59ssdbNo21S0vCp1HITOTPUmyxF20/ 4R5TdVT9r7jFbERfTRvW7XiZSoqKg3WpB70bJCZlVYH6tvdsnH9NGYuNvfo5wgnM2GhWd/ qKWBnetiU1x6SiQeRbgF3rn+h+ UTlDol8JFrYu6DAK0QvVbsZYXrznJhHoi0yoczxtc2rjlndlkYnuZ8a/jwe7pL4lpu68Eqnj6mQA3z+ zl8K9KGvLkKTJMaoKsLZn2eMcTXuf4yuiaWqx9SmEaoOVeTfNGhOamucmkhuMrylu0pty4qDra2gd44m 4wZ7PUdyApulHLdCsTXegYTEp4nuJ7eQ8voMOyOU7 +Z2bfekx91IZQWOn4tq52vfDFVAJ/TcEgWVRIrtAO2GpuMlOTwJ8M/FF1UR6ZXlm/ DOBeyqfw5676jCNLjbXaoZRuQqe2eO6MNE9g7Ov139rl1PuTUZGgN6UnL/ GFeiZXaUSvlPhl174CyKcmpZ9J86W/AM3/ TQAd260Qkfo6llZ976zYz6kGMWZO1bDNoyFDYi3c4mcG2ozhF53EZo0I/Ct/ 9xcElvw8G0v1iNKsy5Ms3blqbyxSgs5BWdhdb8zajuZ6fmzwvId9lxxk/ uLZBZvy4BXHg0Cu3x9iwhkg748wVKpIyCPhswTwYzFh8PVdLgsS0SkISfeOHycx09lHZyxtCh9Hyyt9M w + PV0SKeYp40DkVpdFwj29kYnnzU71bquXHrQxQgbchG4Eh8mLWhSaonZ2t3N1p5ZVhKQ84FMEzRUx4DTV 47Ogm40mgb7 +t83sd4zWLnNrnJfVZA5r6r4fQlmww+MlXe3sbZTzLNq1dwj2u2QUB/ blli2S315mD8e7h0kARybmj9vOc381CLhHA6xEjJSPjW/H89teNZ3ISazxSis9gOOL2Asrznmd+ icZ4l8fc0dS4662o0izCwGKwmXF3fKgXO0j4trc2BvoZwdw85+ Y1X5ufFVBcVMIM1RgIxSBrgwVYe43csM0sEZ20Bxbs/ sflwznAHPxOtqGqRRS3dTbcMv2oTOses9dw84p5Lcg7W6cWAU3R7c69q/ KWUiUABvkL7JAzQplzUoQx89x4eT5L1xzWDbm2jn8SfR+ W6ya49Q6ktlP1xnvsyIu8YvuQRc5VbWzoWJv96xFmrGKIxz5ZEsd0B0gnkKQIsg8S2kzoXK9nAwml/ Asn2crrcPO0ArQeS9szKUHQS2t9oUZ0TRTbnnr4HwDh/rv42+ OM0vm3ZdH2v67lZ6fhOXXf0JfznHgO9apbHAEIgGBhLKqgARgZgNTAG8aPyoZEu2Th9AyalaJmqmxCKr culGunxlU6epNOL +qWZ54rHHue+2pEId9jx9FG2UEJAtlxYuM1OmaIcr4d6ug01tAIcs/ IqEfP7MFpXx57H8iwhvJMi6ERfTLzr/atFt/zXWyuTWYa+ h9us0CfuEArYC8VPOBRsidAN0nzmvqMA8sWitiOcILpdGjNh7zRdP5p6Hbi4RJop8rfS2MjpCKDwK3o2 eyJZOH4r + jzdLFcN9i2Rs8oXncCgyvUQnU3Bge6AXaSz8goOL28RHt61h8MLvWN5m6PgS699UBrNlfQaJICLonSwb tH1JfMngmD0j7F4cQyjSy8WiPkHo8YAJ /7xW34hlzc1ZphfN211it/VWs0+vqnNp8jzIxxTwwishGVPK+ I3LITfHeXnmETCW0NsIojzYMU6lJNGjdope0b/pR2y2xkUPBulKJ/ h5oddO79faDVayHy2Ovm5nyJPg56tfNdKE1hSQsWFjMXIljcyqcsj+ RvOc7u6TtIYHofMxKHRZarH0IPQS6qW5tGRGhYSYZOKwYdSq9q2vgoGvy0Cv4suxo71jxP4/w/ mDjkIi780h9N1axK31RMUazy8X6hCBX485pCfLq7WPpX1exI4GwktvgXn0MWoM3w2fYvHMSTpFM3yqcq j9f2qrqxgulL8A8xZuGW8GkeNxuwxohMsQji20GowE5z58dUoTOJogm32ZqwfZJpkC3C +UAATuFEb2saQcTujCt/gMdOoJcPr9T1VuaazB/NWhi9gQIjqf3CpJpLSyZg6pvhmIC3Jn8mTZISyQl+ s/WLlSEqV2MOpt51kwhMfZ9ry2FMlSWCpJNVQ8mMJlIN3p9fQOXs+ ySAxb3iRDA0Abuvd1JPa37GUe41iw0WdJ62j+Rrcm03l0/R/Dy2IhCWjxn+ FbI6kuuJ9csobnwc7y0KI9aig5QmPlHB5b7odjGGh3hTO23T3Uwekmtm+M/ nCfS8Gkgy5MJTwzY7z5GdVu9x+CvDOreM/F2j+QwHnVOrkce420+M+lxVWy29W6ceoeZiCI9t/Bl4/ rTdfwjJlNN8yrhoHYGFkpg91SkWx/D/ CVxTEFViT65EpvMDZsFphc8CP3vtt3eiyPyKo73ClMbubLMVmdzSVKGdPps0alo+ 7AxKlwAlA4vi5lBPxrNimf6dBz2gG2eF9xPg4yV48+ NT0jG7JKzEMdtCL1RzLa9IQlqvILpRxNyG8XeBatQ/BAR7nuzg4T6qhviV7b0oPLOp16RASAVy/ OMoFLd9rqyObBCjdmZsJbzCDnT0Vuuup8D33Q6/s/R4qsCi4FzT+EZnzm4uaS/FngW/0/NyTFr5u+ CuI3IW2C/Pf/Uexv8Y37CTE/RHsPuo6N9O1A6k2dD95DR2eVwyfg5g3V9R/Qqf97p9K9q7+SbKms1Ob+ T9Bi6K9y1p7LSgWv0YcQNknl9YpfXqAM4Upt3YS69oNYbFqflEdJ2C8ECG91tf1tccws2TmA7riW6V9g y +Dp4GHeBS8kGMLiPvkebh4zLvDAfio99hsj+04xKrHXb1Rwm88idVK6SJb/nu5L45CqwFX8yk0Fwb6l5 /qP4S/A5pT3Hr9WSJ2xK21XOuiUnztUicenfas30GwpMJs35o54qy0/7Bp/ rttx7tu2OY9L6o1dwdA4tuLF8+C8ubT2/ KmaTxI7AwSHp5irC34UqirpK6pIONOFtIESc8b9d7aaecPMDkccpEAydH+n36gRpMNU/ TzsrPzCzG1W6M2ovk8+znpfxS+JDQmmXDc5XLp/dGV9xhp4aKD09p+GrXxBoc+u+OfEMfhLUptMsdG+ XIvnXpYBywSk37tf/D+k862FvW18+Afw9+SR2suCjlqAjORdjUy4PJVl5F9Z6QE77Fldequ4/ ypdoKENB8b2i3j5mzAMVlI7Z7pOsuL6NBkbWInOV3F5xx+ImxCcnfeckt0R6kHW5K+ mn8RxNr6pR6MLxH+rd6uxEYn3p3Rm3FQs2aND6rrbIuwVUDghlhBaWcl5cCRE/bSfRv8b4ItZeG/ iBaeMfCOr/Eq+w93ZRXFq/cVapE6n448kW5wIhFQfqnT/2aPl3mSFlbdzeM+mSJyH8jBTagh+ OGiYrELObfzoccI98K5SHy57+DCfi2VOdYi3EbtG3e3U01/oYK9VQ13wBoNy/RNK8T+RQU5RtMY46twd +E5ts10tkH4TYNlKU/AIIU3f4jzOuI+KObhctyybs82qn7MrSRTWdDNHhjI0IqwD9/ mdlLOJ7T99wI5fd6Gi0SrRhRa3JITCqtHtUYDi1afRQqC9deHsu0i37xk32arly4xaECwmTjQskovhD9 ysxV8jtUKq7o1SsgO12mh +EExkr7MJiQcRZFXxoZSwqqCAYy2tInWTw/hVm0/i1jpa/ rjF3hGmzLhNaUrZw5irw13gjo82YiTOznWUUGNJUqDeYaLKIQoWgrq9hs5v9vbSo9bd2nkqtND/ C6a9hae2rllns+ 1Rj3xo9dL2r7qRfNlGptBDm26xp74KCTafC5dWam2da33JaLUWEfriFCXwSCuxk2aXjFkDT7UtQw+ BY4prFfKujtRS6kx759Pa6v5Uff6ddVRfrwoh+zjtUe3p5F/yp2kO6cCfI3EpT5z6EtGG6R+JE+BHwh+ MSv4TZMVIYOk2D+GfFPijQ/CVjp/ kC5FW39G66YOW6wn8iBfDckFTY3vBnhJkvC31TNQgQyqYGZexwH6nJ/ XTBSpvWsNU2fyK08StD1pmx1imU7uiEHYTFVPiIKQY19zEe/vkhGz8JSG7T4Yk+ LlvaEbYsjMcughh6D2c532CgEOis2TD0SRGcRRI44hJqXhCKXIeCWVQIGLLO8BrBHERSCTi9Ygb+xv+ 0Nq3xw/Z6+HkpeNTZlvF41FrnfodlkFImyf3JLN5uoPvwZy4+lxILfVLfVtOgttfyzTyot+ KTOnJb3Ew0ltO+maXp+xLEdiDL57KuiBqMktzxGkobScBKELCrmL8gGNlejoRJNMjEb3b/+ EFZlQ1MGb8WiE2oRsW6Q8x7Yn42JyR4v7JIEcqn82R5t0nshIxXCsdo6WpFWNepucQrgUv2PaEix9hNF 0t4qyvHYdJYBsHz +FGuiUAPvc2QdgJ2d73v84r1dqUx+AmjUsEEDuWHzTRzs7otTbudkm0FXZArvAHme/ oGswaxR18xYdNxb3HI4sFd9l9rMDb6fqb0iS2vEVJh179o1wYY2wJlRaTJuJR9RUwmzdJq3FzagK8WgR ttsawdaWvnpCO5ujuP6qZJ1pELxSu58yFcPcVJsvDaOmcrmHD2jh5NEkw6rnvRpwWLsb7iWbw4wyfVTh 9eD1ZpN5c4P5BKZrdo3 muKBLXVkie4cVaOqHaysaZJldJgg7oypMFc8ltqsRCo8y1Wzx6pvoNyi2a338PcsrP9ii5wcSy0HqF13 LXhIxzTnCiuI5WgpDaC9 ZChK4d4VxxL5eNkjwYi3KnQ40D8ypakayS7T95R3N5CXx2WaCitfRVYnXBhPNiSLEi/ aB86NKzHmgeNy0yK6Xtbxbin/ bniCSSs1RCOL9Fg12c2EiKeibBVsehKwN78tgin4w6zlRPVJGMC2m2xbeC7krQNl+obHUfHUFkmo+ P62BubIZnRQQ24gvidm5Hgt7qRJpHjCdlT2yunQSzxbF7mlecQ4J2aJ+T8g4UeOrJyzN6dA8s9+ DqkvbX0C6vYcsWm8v12IUJqObehfLJIckiLNiYtA2mAIQCGdzaryQnieBNTC64Q6BdfOmdrnGywvtHmR wM686eGe +zMsTTZkmDyfZr+FBIglRSiYcNKX9cMqPsSMbZeJt14Uf6ihqGf7l/9xjBKF18q4yW6pNsYQSL6+ Z006Y59tQVej6nDBGUsk+K59Fen2XVyuyx1Q9c3wVs9U0H8nDBQ/tvDwAti9bv+ 2en3sEjS5GomaOB5yh52m+H8n5R0ObU/5SsVHBw6XBbcYOc+o2+ s2VPDnL1rRK4ml5JrztfzdsAWyjqKcOijS8X2s5nZdwfxqTjNmqVWFRdPMDtc+FdKuvD9+ 4zwBu1rm1joETOf1n6QCfsXfrzrlhHOLTFTEHNfXCK3uOdUy2DpE0U2R+V9u12UCmIT0gouih++ qZdO7v6t2yBWajP9sn2yKVBdLU9xPNe04XfLFb5hUDZNrwq27uz489e3E5/Ajpz9sa7+BxvuYdS+ ahzb24TvGURF65TBStn0GZfdF8ekRVnBvW7TtZ7d9eIPOO8h7Vbcyg7qGbroSi/qtPnwZAGKDu5M+ cglfE6L2DnYGvGTb666fmqnkEQ2zEf/NC076l+oAlThcu1pVegEZtqcYw+ e4mfJCz9CDxbm4GSg9ujgGw/hPARMqcGW3tUQ5VtjNnm7KzC55HJLW8dZv5OnVf+ sabbafdaMouzcmGHxfqviBbySTWdKsFiha+0oIhOws1fuWzf3kMuh715GPC14+ BU3klWmWutY0UhyVJtT1/ pJZ6cGqXDkSZtIjjMUp9x3txBqIZDXuui1Cvy2Mie0wONVhzs7u4j6DX2FTm49rpCf6CqlyaQf05nMq8 a /mpzeFHfIUsXo3KCfXdJaGvevmoXumw+PhfYpl0kwE9c1ergg97j5wUOj1F0+ ngp5gYtIb1oElzM3BLy5VDj3zpx7FDxq111yX8agalAzK21Pbunj0nEFla1k+UUk4cY9x1wn6+ ECZTunV4mAVm+wqpMyXsaPo6JS2yuM0vOWUsTCO3ScuJUaFCltG/ NJ3sTSimKE7Atshv6as5A28TFXpItW9wehqZwkd1tq6cThiaPcfjvsM/ mKuRux0xg8RbC1Y9PdSj9GsU7P19lDo+ DWj3k84D7PphL4TE8mDkGO9E2kHVUA2spfA9RYJH3lwMOW9h8f0QfgZ79rB6sQwnEB4ogPfPVbS3qK65 /Rqx4tdoncZNTc1RxPcUY8uWWAMKJye5YKRY5Lna+ 5Ywrp39z1QxLdaVYKtCC4vd12r5U9aXI8L7G8dHdHo8379Q0cRd1ybz2zGTU3LLtoRKhKnZGfvt85/ 6p7VI8s2qoGtlevVTsQH7GigR85z0c0TCRS0ndXqtaEd+ 67iPtbCUNVWVucKIppFPU9FCxDQGPXap4xf1zbOl7SvT4N8yYT8ZzjYzIMO92oJDGmv6S14LzX9MSjMJ n6316oE2h81AW0tJF1mofIpJLFp3uYh9pYayc4aBlzUVR8Bk0Zh1v6JtM7j6l +xxAUAenCJkwGa7U7m43NCSGOecKG3Im6v7jvcyMCAf8HNM95kjiHG5x02pm+u0p50eSimw0x/ eFGaFEEnUTySdgF5ltSdlurSesP2hgaa3o6IuQ2k7Z3rn4mqciBgQNIwM7z62Sbm4+ jfdxuw9loV6FsiUqx4As6g95rWqdHKYFYjcDuUhVezN/ FhdxprluP3s4y55y4wOx3U8G96dub5Yhrdqq4izsZoOzVfyg9iavwiU5peEV9TRZzE2QZpiml1af0meX pvh /VyISz2TIyb95F80abTbVHz6jJq8ceSGvTm9g0Wc26b1Xfe0Is7c4v6oa18s0zlra7sp3/ STgT42N904dOxUwEpobFpxnjbC9/LODk1JC3+95pt/ aZHLdteHVEUAdsJOdkRkJq0aItzLbQ6Wi0n21muUC5k304BFx1BKEQjZy98Oel4mpFseAzCk/ hIctPj0sODkoQ2cFj4db7V2wuZ5Owj836v+1HP4gRAA0p4qbjoM+ ior6rKvbtigCwwO6i0WQ3Vc89zINaWdx88srMD1tGkRwy4Q7AwqFFkyp+ XLpi08W71w8eLkX2k1y5FJdrBr2+ogg3z5A2aVuqY6HzT4zMowOuGCzZmx0uen9I+ YChA0O0oCEp2x6M6DMhWAmzY4wwlaL0CoRHAJtsmcCF2dKzChxaWK8oFk1iwF770gaaBd5w1OleyW/ lP1XfNVRmbAkXl1DN59dakCXrkxetZDkOesFKTNcXzCEfHMUtLDDnQpWAERVDqg5sJzXsI/ lpjruM903f73vYdD5UurLXTKME8mP2rqHh5845JRhfU7gKUluprqqOp5EqwDochebgr2y7V+ S9BMq9uDqPN60nkYw0HdvfKkaQ62Djk44k1mJLB6WMPWzzlF9PlyBjnQk7p7Bu/ vvpPQ9244haGS5hHxIlCg1oLRLWxwsyvBEJxviUYIX50ehKDMjtzeOqt4E5Ppafqz3w9gfy7eASbZzTF aSeIPijrx6U5PjR9kDHdTMODPpb4pAOnqm +lR/BmLuC91EfesgeD7jj4f07M2pz9b5ulXGPgiaxtm9ugYDUllR5WlKyHYiTwGBVOnUD+ vwLhytNtaLlW+thz0tpod0X8Z+i9awCfGQMWq6Lp719XxovMu93uM34B8d8AqQPg1iDo8Q9vdI/ aPpOEW3+zG68o2zI9TSxQT7ga8gYUcAgrwzFdJGdyN8aRoD+peAb/ CNoB59E6JR9z7K4Bxv0lxGKAfTfYanhvuh7qKaNkJMm3qUPtPtKStQIz0M+ Z0NARtUMlnnHd9YqcH7XvaN0M6Ix59qhIZ70u7nJBPTdTyC4APdJv6cLj/Eq5q5us4qbM/ O8np89ksg7OMPiGmT88dZWG4muwaqevC3P3y7YeD8+ SWEABhZiuJceaDAYxV4aQH1rsmIqg0v2EoBPOb1YVFVxHgkRE4QRcn74O2ZhjXh5by5omv2qahc+ SocDoPH4n+EmF4HFY3oQ0Wz2isFNeES9+ 6beEYBcgL1WxJLxrZQ8tOIdoIV1VCUPWymelS1ZZPGxe9NvF2d7y0bPKmudiboAPGAJA4uWgu7dGiXFz cWCF1wtFAdPvhL9tqswgT /x38aL3+febmd7b8Sj5dxuQaerz2b5v6bw3eOdt5O2o9eZAvCbASQGSVeeGQqVHdm3v6xy03+Hes+ XnS6c2kY4RowjqbT9tH8ndi2eokpAqWrjALyaoeoXStiV53GFgfzPmpNIFQviW7ufwUMCXaTXWPieym2 z25tOL8Ktn +vzTJsDgcvw+MWP7BQga0PSeG54l0b0Bp5BKTgEbf4im5IXnCIZ66/gRoP9Q1oe9ZFcIojTVSHE4R0/ J75wwtSISpQ9k3ghtDUgWKCLnnoVhHHcrY4HsUl+ GeUG7xwFnY8lBfZwdj7P7SJKuE5JorWn5CU9DaI2l5DFfwQGHVPbBDY1nw6of3FrVYI8s+M/DnxH+ JM0lr4+5TmB1v4eUX3aKWnoy1jgidorWUneBoDhqs7SoB5gqObXJ7umw6ytgixK1/nH+ 8J8OHtZDoAe7mWlLZQBqwHK+ 4a5E0ON55MfsVBnnqQks7KxRHmTWXqsK2YDCLIS4rwrykXua0TP7jv3hkngkawMQbkl5Hb5Ubxi9DlQk NJm46VgGAn9OuFJ9vvZK5q /CmUleduzEnZDri7Y+ VOvswrUPMB0fmbdyA6Qvv6FmBXZY28yife6E2hQvQe1djQyzBuzY6K1wWIfzAys3t+Ci/ ZsOoTc70wkT4vIqrnCzgx7dhcs8889GjcBBsi3lOLznlBrEDygDCIfQodw3WZiQKzu/ XLneAdcjJhDHE64GAEaMfYQ3CHXX2qO/ WEcnX3jAJVodDWtcSegSdNpnXADoUCOKG5VEvvY7XfFEbWuvOvahhH6tuD7x+ YItkS5rBwPzixEhR6Y4ucJfeFVR4FOGfDMNk2Mlq4SLpmPVZsT6b2uaflY/ rkmbh26wa37Ov43hjQYgQ7qWAjR11YiqYSqkugpmncUB+IK4Mapz2K+D+uv8C7UF/OSmqeh22jDwEom/ FOPtLqknSXE6DcMnul1s8moiMaDxA8rfgQUK8xyMZlmNPRC/EMjvZmbt2T4P+El0UW6bZnvfOKK9p/ doh18Xchv6rhFZTQD9WYlSZDXzqWuoc5uPmcYt+ IamSbeOJ9M7Pba6987ZRDD8d1pM92kbTIbKNgPTo9H5fG3v4P4J4P5iHtc0wvpPR6xmmlFI/ Si51XEV6I2kK8d3nmYchdfgxyuADy0gknxa89A7a877eqXcDx4EJJDvX766eSL1xzOaTKysoArRoTg33 /D9eHHeoPyvIieNgFabS/BWsDaZsjk4IxTIATPUUZ7eB9YbN2Ky8dWH7Q/ bD0xCEnC7OVHO41cgy6hq4DHemHyE0pxNsMcWfmwRPbEIjHzLUMuXwTU4gMsocNdkR0BH8tu9Od8E43x Efk8QCHQbp78NVyCknFd3XIHZkbZc5 +SNwf5u/hv4t+K+ egQgkq0FqKSujIXrCf0AJbs8p9bbrl4KdI7s880n3zPgbIiGFLH3TAJmubfJQqU73fkYByBhunIdAnBg 5awcFBMws0Wixj13l0BaIrFmjOWpY2KHIqIxrX9DJPLqxby8pCCbaBLyUnTt /y3Umwm70jtP3Z1meuRy+t1+ U3kmA6BxjJJcPFBuhYIQF5RDAFEN9nlCDsJu9kDb2XycrWPUqWeo0uPci+ 8l0h69xRAk3NoZFkMB8lRWJqPwnuVhgwFDia2uJRU0H4qSrUzK2bqaDiP9r0zptSeDjhxf1ternKwvWj PFhCeyh0096dKkjcG8U8ozmomYyzCfhaDfIJ9QoOpbNWoWvAiejT6ZzZ3fJqTofLc /Nhy1GHPwXEtNIH+Ml+U6zBQprPRU6i3rOkA1DYyo8cFN4Psur36G0yyrfakAB7gm/nBM60OO/ G02FIzEpj4W/wBOS18+ OFASZkptrsUKLYrumCmZLEoRTSqhZl02z0uZjjz2U4h0i0wnQToFGgYOnZqFSYmIuNEYBAhS/ tAar5nBSNzhS4jcotS8oLBgragYxhf6hdRILernRR7fxkCAbsyIiKZ1bO0kf1Jvl5yUAG9o6h7+FZES+ n1YXK+VGSMD3ojGteDjxBopBDLdYLbkPkpW5fpa1kW9a9p/d6t0zOumrdppvvOzaswM45DEaavd+ tgCpvDJVXeilqFrAguSFUtCXxGNKQEaZWmOB2jASwUgJwQqYFWHoGxVIDyyZMXfmXtzwjYA+ PcZtgpx8vYk1Vj+b/J2MPq//Tx/+AM/Jc2uuX+ smxVgoWrJDZlWGG1ex2Ji63Ka0O8NNs2fai8fNCjDgp6L62mMYBFDCTW1VrTFPvGeLbhODedYZrE1dLo 9D9xTy7dgcCZXO8Vu0YrIcuBxnBcfI0EjQjkgBUm2vUO3P7swSUxsAa34ZIvUStkJ5E7K2sgWMsnfjjI 8jzBYgWzob9zrY0RrYH /H5nzy1o3GE1zp/rBPLVx4yjYLd6BN46BLUi4gnQ+vzF0zmaJbR6j3nwNTTYyDvFwO+ EKStXisvYP3SMyIHeiu+t14Zm5yI/d7wMEw2484FSQ7fze0U/ l0EeraZbcby8stm1oLLlkCGHDqHcf27mTMIdnnSdP3pnHGNipBZkIN73inNK7ELt/ 00Ks1c5BBvQT9nuLdpJcwWAMsvd2hcIXRtiKOXTJE/rQjtVHKrY1PoY9i22rgSRhNPZ2+ 4jDHaOlcr67U7jv2aOkaXEs2BNPKFSGnOh/aVIIlVDHvwLi/ 1rgycnxTwjidq5gIJ4MnKrbMPrWUPHsxEhfm99yPdVhR4eDBBDX7nSh2zc2deRsmnRFu/wAP3/DzM+ WocHTm6xkL0/ku/S/tW58cvFTepV2Rew1i9lMf+ 7P4fxwLScvtAthTjZxBYck6kxvBGRI53rUDZhPtpaw7pvy5Cy1/ cgkjKuOFmB6N2EaJdQ217tZRu0ABDaZxzJtbWYNI+ 5sbaMw0xvpJARg8Fyn15RTmoDPztur8k47xRUb5d0aBmgnzMEhc3kFU2xsQeZNkSuCqPuzv1dVj51g6c + 8nyM6aWDF69c6KpyTD0c9WVeqt4cZatcEbonxPjjPvB9ubQqgAKB93ZK8pQE4tDoSzs9R19bJg0zebu0 KfbVQWsFgxJGUPlkxcL4a70yo9a + UKdWttIWnD4pi7dlqa0xa2mFloKsYte1oKdLH8nviOcrK2i9k1HFjyuvLD1fm3pmo7h0UMInfvI6zJFw TB1rfyeNzrpaXBllbVLIXjLWUY9Kzdg1Ee +CQ0NIDos1FWbhKfv1/s4Su3+maQYbih1adFaw7162z1xrkFChhOGSlhHMzRspuq3S/ RYmGRhNH0sh3bpyEmwl3kBoUmn+zOSVzw5krX7v1jaVrwuDZ3jtAioi60P/ HGrwi8hDKtuVv7AcLypbQskFkgeKjmiy75ndx06uNxkBe8eLhAX8BuSfasGgolsVvc0xi4tg9ZdrlrFu rVLPaWD8d5VmNCkyadZO5x4esxyjrsLtsosvq2XP8fWIwweI0pfS / xwIxBpzh8jfBurqCexhXd5k2oJa2i0SKvSJ8yiPjfE0Xih2qG7FxDEkaJ4REn21FAjyyzjgpZ7kovMd7 jideOUALYMHEzftWNFyDk1cdUnwhX0rlpoIo3u1e /cQ+kLxX1zvHbYU3OQprsjltXfceRlWBmVFLvPeZ4IrvbAF1gJhLiPLOsdyQ5i2bidxrgKzu+ cvPkVutl002S/ dhsB747JMcaLwyrEpTQRJ3cg27dlZsUXW35NXvY8uySgjHYX10Bl9hokKsbWIIAI0evNbewGlIRetcu7 n65JElIHSII13zNJEJEdpdnpIrEJ0cgdQyKMHWbWepKqsGaTYyslumTY +QKkJ7hna/B9VicUFd6WhZsDr+ 2g1kVjK5CsGXGwPxEyxnFjNHtpPNgg7s58WyT8AzN2k5gYrbADVmUCp7PrG08MZFuYXSJ1I1phKqmmPN Q9ClGuhozSB9d9a18xlq06lg /SISCtzwJbC8vw3pzUl+hz9G2wuXy8YdCa3nrxhTH6/ YJZ0StIYPi50SHBYXxM0GJanZ7rVEtY3XIsoL4sJ9RmS9Vl5xWdCHPOBwxqhnTIUEGTksoX1+ twb0VmbvirPY0JqKtok76y0MBpnPuXG/5Uyv3xXK+fcRF3QVZjOaoTKY05z21dCk5+ mwX0dpPTgqLDfeUGhXGrgYr4dqpOG3sWhZCfB5QEh3nPtjTVGBAXWlFvZdIUtiKoU2U5IR4QE8SiOUha F2EOdkTdyU9w4cJjd6 +q33Mbu1OXNtTAWF3tIgexdMX8rUyMaOlfSc3jM+ ywwAW0vJj3gySOW8zyMdNzFptfbTtyJ8rqzw0dC0Vevd1vU18lo2T5uakhGIhYHINxQ3cmRfP3r0LaI5 ix3jrGwxlXTlEfrPPujn8es775w5KyRNdhKLcHUzREJSHu0LXsBJzgH58i0vk6fB1oTRWY50xhuKd4kq qkSx9q6Q3Mlyi21DifcxygSIiNJV3VRoXI9nv FZ8NICUvOqmzlgUJ4tTQL8f3AXDkHMV0Vn2qjTonAz9ie0t9vevkuKIn651XQKxlg84B9s82a6CzjiwA zjlt2ir5pqXEmyCHTzi2 rgTeJCbFVAZLWKw34BHpOjrp3YlQH1N6b4BLc9NRRr/ J1Shb7lEg7silDrWDtwrN9RrFEMZ4oYnBm5Lr4NcQMDXQQAkqjjyH8fZedowdaCRpzeqC733YnzA4ltg 23QL2b85RYsevz5Q /4J29eEcR0zjk1vB3XbI1hbUwoqE0xFEH2ciaCURHrkRzoCDIoZZrg1+ i2QdhUrEz5iQ2KcXMU9j9hCdjBFWG0lxwqzwBZeVW9v7Rq92Mi6giuC+ c3ZMiSyrN0m4M3aU3OXRLOD2wEfMuLfvALQaqPWlBHSHnYXBLFdEzwx4c6rRMHxkBjLwGE7XPfVAmMCa W8rlcEHv +E4Ty0EkXl1Mw1gfzW55uocj7mbaobISJiYLKqs2FxW0Zc6K1YsN6rgDCgkXTyN2BLioxbfS6dEp3L89 /yrGxvXsfoxPqYXnbZsqjze6m2alAlVpacP4BiyTilWlc9jXpxJR9q9+ 9thAYA3vQazhM8izvs2Fgwj7BYXFVGm19hGh5d8G/VZ9uF9Esrd7sVdb8lG7+ 1OACcmDGRTtXn6qTzP2eCLn9xHpz8/ DunwdZt17or9Fbftae2bWGdVpJBVcxbDsmEpSnTmg6fCT1015fUukIX+ tYubveDjl8hMFM6rFzswY6A5DYx1MW805heNM2fkZ988baMQ9YCxPS8wQmzttKGBNebaZT7w2IcKSmFd cm9mMWpR9cEgUfed2ns2gxgthe8QkFFBWJasivgxxbGIU1UODnCVv1Fng12e2iQtI3Wf5yfLdSx +f0Xhovcg4/ eYzFDVrMRv3deJxq0o4gvxKPVdsgRS8K4gp8uFIprKMlGI8cpCU44tnwF9z0u0hV1x5QWBTR2q3WKqyS MGYrRTKxfb0pj9R2T3fyW2UJk0EBR2oXpzHCnBUJ4yhWHtAW3YXTA4P9663MhdxdKe76dPexyWF9m7aK PEMDJCT4yypVx3s1jX1xxbElVjT +Zo1GvptxlVEFWD/hB1jgABNLWLhIjSIuAt9dPghOMeWMTXwTOBgj5/p8v+H+ I3Z1jiNixq6j8i7eP24fChn3z/ 9AXGbk7dpMDF6MTImR3T9pPDcx3tjv80yjt5CiqlSMcXlRnQsIkodq8Ueo9bnxElg14nldKKekz2zvAs VUtHFHWhgQQQvgo6rddhLBVk8wxSWY7jkB6YU3U +jCi2tbzFRRTO/VrhqD6UG8uwxj+Mpf4iqIRS42L8aDB3lWGA77RdTTxacpKs/o+ k3XiGmvAdHTQg0dGEMtiRkSRSmxdRqXhpgPjUJNF0zHans7bP+JIUjSNdhabUk+vn/n+W/+ P0dYVBK6CX+XXbf+ ihFUTALDYUKZTlX2nykk7HYkgKh5HQQLwFf5JdcK9ailBkCVzsNF9pSiXH6qK36Tl1dSDOekYVrAHwJz WLyPMcNNveQYzksjKI4 / vApbyrBzkkVAjVF880ztpkIpQp4YQAsmLOKDgipgKn6GEOQfxdnQ9IaA1l0OavIJSyLKv8j2fiNHFXg3 pvD3mERkwixKPzpmFVF2jC4War +t9lrd+u+irIk37TlCdQG07lgk0fo504fzVAuPbJdsFmYtG0bJEjX7rmXqx0/ hbF8lSluIIMr5840DJCPPY54aRM69vtxBMpUbxC5mZ1xHW3nlVSglH5DSttlJBbzkXCbE1bZYEZSIfic mafjGTNmnGkh79nIJW7tCZQdqraiwOWOJ5ETFbLJIDB0L0M8FunOi1b6ttKcjHc5jYdjdnwCnK4l6IKE ZIPGC9HiCh6t1sIu43Ew1l9rxvrlx2OhjaT7OjBYV BPOeg1R+T2stO/mYF/ YwBLn74BoQKlSmpQexuhqdlcX0fDwaGtyT1mRYeaWz9PQQBmtq78UAbG8xDnTEFULqGiTIDha678uVyE 0BSThcTprCC61QknHZX7A5utA2esmrGSHnOEua + uJjHxyBpQT0kIk39V2jHcEskvzguAZyjlEePSU97DfgR3javCbROuoUAE8okAXwWiPMoXpvD6rPmCj1a Sjzm4qNPd8B8bOeHIJE1F4xE0F7FV6o0YfykWW3m2AvH +gUPmlZzqW0LqrVAwJKEAIc3rhzyCo5jvbvJh5XQkKCaUv3+ fT4zKLJOfFRqNOts5hRCnXBMRjGJN1cZp2RrX34iVXQGljOVFwkkaoxztAYIYOdGC6wQSeFHLRxiybDb 7EsupZKYsPmwBQkoG5O0PNM7MPEG7s6GwW7PpWOJ +LitYPqCl4F8GqWHt8Obcn8k6ctj79/AD/J9jIbwKyqPpyhkJgsmnsURJ+W+ 6R1OCnK3XykOHyMDauZoM4fQQM5DkjvYSzbENWHWEWevotQQGPAaajCHBT3FONpgUCFN9S2bExJhs6TL ye0jWheWS + CWoItzVZOXd7yWQzvUoYHxOBa4fdSKNM6voBChWONAuC3NNCVONWb9c7oWZLWcLRNgFANLY34NvUFUmq JlE9vfoicNjoPYeSH8u74Y6Ud851223 /Bs0zbpVlQhCDRHylmsM/Dq+5auWcxhzBLHNf1KxISZaKTuOIxtXFYSMfQYFNiwjaIt0CDJ+ EEcMNgbEuID4LHG4gCHzcaTDNTS0kIlEtbrvxRObkNBJvbqb33PuaRJ5nJAV7XsbjHDkHhlYoBT04KOA Er7rDJdQoAlJg0x5F94EKZgyJj /aJG94B7Rx4LscfdSsTuMxVL0ewWbKHNWZOTciToHm5b18Tj/ i12gEwmoV0pZAVnvYsDpb6fKWxu1A480loFc6AEl1LET16w8PTx6qMjACmQCGtsZnPvxCTu+ UEQVLpXmZeNUTVIGkUqLQ7tkXLqZd4CUam4TKebGZ5DIGPhxOPzLyH1duz+7+ 2MUZ8vrWPFEpmHbrGnQEeqzYK0TmFgPuAiPTPb+ uDPMQ4BqmYOLEDwyNwRUUJOESsenU6nf1MVAWV4f8ewj+iG08p2jPX0GuNqypvhLKai7onI/ ouwg8PpMuxa6DUFpRGZuaQO+Y/KSGfAB2/ TnKcGQ4WOdxW2dzRLGFdwzMuhgAgo1SWcWdWd17FmMhxJSH8t8ctVHceeSD62nbmD8uFuPHVVUBxnu2p Pd6U70woKS4k3eW835799EgfTCoqW7Pwn0eNjFctrIPfMAHZZ3mLZvQ93MKyKu3zv4l +8tdb4Or6/wd7pDsdXy50sbB8p4bzn2E+++ ehnCS9xOo5z0HmxRFhq86ucsAmxzx2wk7htTG4gWqWzOafjg+ jw2FNPlYQmIVDGakz0jfOPBpi1GEtkivPnXyDJaVyxOjDVzK5XkdDUGXy3NfG3g8xaypMInlCoSop2nh A0UX5jOzDcnIzt / RRMOzCHBhtJyFNe5pt42ratxHWiJ4bAHMAEWxxKdn9ggIfGdIxRh1p23ov6xYGB8xNHg6aNL3Gfksc2T s41l9zdpk1WB +DiGChBLnKuUQJaRTJPLjDFDihagQv2y27bl7Yv43oCqWdiCowBUpoO7UbOKbrOwIbqntT3DtNM1sv1+ bvtOT+4JFe8clfaj14UK6HoiaMNeOUALcoHr6jupCPZZfvt034rCYAo0id0MI/ tcytV4zt9p8D8T0irL7oaKNjzfqjOn74fTfZPcACAf0hFYLAqWlQ2S+y+FnN3ovTu+ wStWji7Rv5is1uXdCM7JSdgAHwumihInKn0A4tCJNlLa3j724JuWFx9Mzvw8IT6jb7hkF7JHro6B0WW3 +LoQZJh4qu8P32y01vD06e0nLjiR5NERlE4yiyIMAkhbe2EWhcr8U+ xEwpplStaL3KGTFTn9zqSwgickdoXTcgUtwrq41733XmjZw1DRnVBm2JZgPSQim6maxavDffs+ y7muhXT2i6rD3qcxggO5vmtMSrhv3NwnYxzwqCowpadLhULBYsUFst1qag8ecimJG0vEglAK9NiffB/ YULMHnH7tewNkKnk33xDgdjsGMo8IwdA6M3yPSPi9bRURBUn3tPetICd2vA/j7TnEzO4Xdv9chaFE0Ye / VRMpzP6mtFl8Yh0oI7j8Kd25g293rBmawpnkIZYkQqQzJH3NxIOC7j14XCnd9stEeaiCuoPwj2El73Tr 5o +ynM4zyLZhPhigoFMqc1FmHhivMSJEYsIdtdm7xBGoPLExhJM4T/J3w+8Mv4O+DjX2xOxl1F/Z+ agOQYpS1gPrlKXGuVPG8IDJaC1LR9e6KztbtnBKsdA328tj6PXXY56wAbiJHaKQZi+iReX5fhNsAz+ X4mWKfVnmCa3vRv5y7+rN3bAgTp8ujL9rINx+FcQcnse209qSHF4oIpCp1YupV7Pr+5Rg+ WCS8DpcDjUlyWf1W6KlLvomJSyai1BdoOHjj8GaG351yObn/ z5inTqMX05CFR2VZYKxn36CptBA0dBA5i2i88P1e4hhjXC7E7zqmya5HPH71f6iIjyti+F7Cs/ zmimvIN8gCg3yVbbz1U8bb3FAqoprR32tTwK5j76ix8i4fN0eeFKP1CbGK57qgVNihZyfRflajR/ P6qHjRp9xUD3Msg5V0ZGbCYwVwmoeaZYGxndPx3DpB3vQkB+YAK6IQu9gn/ S0qqR5iDIRPNENLvhckRq7ANus81jZWlO0dyZDVLJ1sGDZw0UlzWkrzlNc1Fv2siiQUl6wKpDQTorlzb a0ok2r85tbbErJodIDAXt67wtg63nrllH0HgkEfLWQv0J0J2m / aVN8U5ovEZVvmjvNluguzVU4aBJgn50uGCMf2iqn5uKQzzvCV7BNuGmtE5sgHyjPuxnQtwg7Xm3KtUkJ xAy +WPPkkFtBMId9/ZKXHDJU9pqLB62x+ NyQanoGwbvTlgvzNgBE6wR3cP9H3LTc55jQO6A4yWMSUYbSUDIj9K5y7u3Wg8fF1CiJ48di+ hSsn3uwaoqiAWiGjLRTLA5b22ov3HmxXwbrXZ2J7OGhiMEc19+ qmkBK4Ol8qiBxHdp4N9NgFUBru9910Ra+8cVa+ut0h1k5tOy8O5L+WrR4fkUbqvPRAze/ w6TpztvbqslKeElp9+lwi32pR9bvi6KtZj1XnLwqEJ6xCpGWFHqUte/ 2WagDtD4Nvt0YisdKI6r3Z965uJgPQVBSJbGdhJBhdj1mgfPE6Jng1vHlI41Xx5S+INc8M/ DoTy97g99Gp1M7XMD7epTlyd6y6G+A9HKvbL9an6Qcp6egKe5+YBQBKZWiJTKVo8gpqmtn/aO064+ CXdtlrYTuBX2wVOEhIpeflNF8e9o7Vp6SVU8nMzxbaDlBEwewufhUKywmLQCSCwO8vjM3RuC3Z66jlpw vpmFg6Wesn6idI +/ cOai85UMXpGJph7KPUpohVsOor9O27UDueVo8kvLZ9poCOnx9Yu1CFa8oc3jgsC1nv6sqFNVVKC3r0j0 ewytDEeZ5dtIBfawbeCrkQC4gc8woS4b5HQ4unF92nz98XvpyX4frknh42j2qau0GApQI61nQNFYeWr2 KF2F4a04cVj6yCm4Im0KDb0fzKIVHDREP3bFLgydWjOxleCaBr3iO018 nDmQx7kIoSt+QfE/ pmUsFiA6QPN0Rl8psmDuOJWuOJq4mwv8EM5bOCKPvgA524kbwt275hRkLtBdvkbW9UlKDmsa87kt5mbi 641S5CyhBFeE8R2HlMeLndNCzvJmoK97Gt1pc1Q8v7gbK73pH9RJTY5d7 + sKypt0v5aB5zf9eqkvky4imAqRokFDomdECFPgGHE2EgIraCg8IyCyFyJ2sp1tkHku338H9q18c043Zv pyUxF03x1ja /NP7howxiuFxDgs9JivpvYZ0c7rks0A9cPLhNoPDY1OKaafSwoNYbmH+N9v4I+ NSnqgozmkwpvax5nn1GqdwU0RZy8JjCpyLrqsvqWCqYe4ExTRal3hNDdRMANraZFpgkuUy9o6/ vBL9JBIX3lkTmY3Y6df3rMLanNL8E11yt49DTZFu6E6dk0cxECe4U4Om8w2HmneVaRr0LlKnqM61zS9I BfxTrSjJwBLYrhbsRcMWJ3LPLp005Smqxa6gtnFrZpaquTrQmlvMLcZlSbYU4eXfKeAeGsiC5rbXFp08 X7 /AOLujfF/JKKCTfqUbCGR8uWXXuGb+ TLqLbOuh9xJgp0PzSRId0zqGzlv5y0QG1te3K577wNZrNX006APb9dzRdjsRqNjzEtS7nVph53W1K6uN aZ1 + dTQRhLdSxKUF3EorKJZyOF12lZS4R7eREdHXuVok7IO0UHPUtVX0MWqNsdoIphIwbirnGVmDaNl8iUFK TlQDwC7z3I +CHxM+Vngdt1M8Q+ 0Gt4gyRuPzJOuw8tZv0SCrtjno2IJGI41IPiGjgrTn2ogixJr5Qj0OTywIzBc4e2clyS129rB89+ lhUJY/OG1shiIuO1JwBlSu60SitVXdRgTGWoWT+qtvXlHPy3kaN2/ SSbspvd8enr3OTi3GQMu8sTulvJHKjA6P/lWoDI1TBi8TytczYJHMp+W5n6tZVi0x30F4p5qd7XKTUB/ LFd0sNGn477c3iXOx0Rl8uxsmh/g/pJMh6z5s3RNBigXxeUsZarPtpR/4u8MeK/Bt/ KwyuZS19fHmhIyE5Y8whUYYcKJoTq32rNBlUpJC3Y0lutpT0gFM/1sfm9FHsR1m+Cvj7Q/ ag3J5ge0iiMQl+MrX8yrTdBo5m9z+0F09AUT+ TUikU9j2WKJ5Y8Ov6t3BaTmS87bbK0nhoFJ9683YTrr1oUmFeHPUqvgXsy5Ar4xLoFie39t4EjgjkWQ1 pVPFlINMmT1s0JtSMpnTIttTHhRWkRaSLYFvqI4gTHnn5zsbioWjuinwTOvSr6klA +tR3+kanc+FjTezRkjzkhXq79/ ZMP5fiLfYcPqQkXbWH8F0w09AEuQ9mNHYAFKsHaPluf91tffqMEHQFaGFUXy285ZzUfmfzVRbC3Xe/ 4ja/nZhw90ASm+ Hej5ZoxTQs73Puk1E5olZJE2ZHvkaiLbvpIcSCnon6dDeYP4r6WPmVqnkxeqyf6qf3T0v4WVhUXoR/ DgofdZ1tPlIPZV1jeiNrYQvY9xK3BgZDKnIHbPEKYOcid4hi12qhxb3+ 1bS99pOzxqUy0dkWTc6CneX655sZ6owUZ0jZbFpcnDqVDhGqsryqRXI9hPkTbdnMxonXY7JwutnmkCn0 L6oA1yF4gNbYn33FcQqrJtwwdR80VlfFsttDloIaLiYLzItvmhskuwmkvhsDPVtxPY7lyjrEODIbhR yE8iSOMfaNT5X5uOzibfeCniMpC6iV2gD5QRdxFcnEA45pu86oHTaHZxn7S16l3u1gJ0cnrg/ lY1I1SqFM7ZyGVA2PSBjH4gz3cw8DQ+g3c7svTAALCjw8N2QAQWgEUrze5jxCZt+ DjHVL4e6Oia0Tp1gwBaDC6daglbq/t6Xo3OFv1Ef7qeSxZ6QYBTFVjtevxMk7om/ gOhbaQmEIkPnkWKjBTQLbUgRSmvnpTDHeH1rEjiXM9FrVMpBb8fmy6r+BLXRr+ 29Z0uinsnllR52sT47Ucec3MtnzhI8F6n814hMSSak1PZIBPHi/lhwCjox+ jBfY7X1EuPIVrt01mViLQpvwloy+9QP0xaqHnPopBSKcf/tnfj09CQ+ OPJEQl9zinH7qOLOAiue6dmy1xCZa0fHn2OnyGY2ytvRwnu/vgh3oR5q+lvI+ 6kf56ZRN5TiYvEJMOUBbyIzspBM7y8UuU5j6uvbfIdWvojagNawJcvWUcLoPY06hEfrjf4Ghnf946wOj 7euvDl17czkd0muqwFOGsOkwbNcz +ldB/bP6ranTmhoV6QfcxbvgE5gKJFTkDWK71/ xNfz9AqV3fOswSLpio9UzIJalUXq7tImQ5v5g9GrUgysQEDub5ZvFuhF0gOC5EjakIzhgJInmTd26Jm9 sXdEgzuHgIIBIi16mCDYjrzdlzFpe6kHrm1qlQ873C17RF9muuN2McCs3Q8OeWTgNeCwCZ4yVjOjAkNj B4sOw72F14T /i8BPxAs5P56PQq90m0ovqB9pdpjNeDkMH21hwtiXT+ 6pJRmDfiI84mhTIjCjhgELpF0OsvYWRMWwPvRis1iF9dzV+ KmafHfle1EmXrrhsGCYjtildSeqTbdyrTf8cobuBxDnxClQkqQH7GG1pPuY+ 6hI1pzU8tbOPronkWs5cJcpoKLL9wTSLragqlKiwyJdoU5BW+ GudmXWihjsbG85QdmUHthXYAd28l65MLXYgi7MNBt2lkoeFYW0yUHKGww6GEkH09dUhATVyTFEnl/CX/ Ka1s0vX/ dNdJjukzrjLsioKgo8f1ALH6HBP5WlHuQu3hFhyGZ8XO8ZlnednvmDQb1K0Igw3rjiVi3LvxJitk9aMv y9kbI3ebVyFIlvrcxTbWBPRZBJwEc6RMg5xOSjAueUdNxzRMtSecanHtq3him2ilo8QiinRr6rCPlz igpOKxQj1bBWc9hLEQ7GjwtxVVbGLQKY2yONHxUW553OZVztHXbGkJsd/z37FaTrqC6Aayt+GPhJd/tN /C74++ZaTRqjy3X5V+Hv/C0oo/z67mjhN7NkF2hY5bPesob3Z1Utmj/b+ C1Ac7R4toAdd4zzlajKH3bGZVyVz/j24K6C4n/ l4LYhC3mbEPJ7k8VqcHfLVyVZ9569RmNHMsbD2rNdXT9Hqx+J2pMhlPNWe3haqogJ8T/hqvxf+H/ lX4xuUStHjCwW5B2uuZ0mCmJs0tKcWMXh1V26aveNLC31fo/pbu4nl5y2Q/ dKLJCu2P2CebiHeiOsmTzdbusgSIqG91i27qZMlT0dBvE+hk0b3b956Xem+ b2Krs6y0EOUb8ae0JVll29YTUSp23LImo8gmuJm59MfHPwt94AS4qAFvttaW3edc0OcbxGWW0HaHEcst NOrRtVqFKYjYE6Y +Ud/ej0RIcLXkT5KvW7A9NdlsVQTZ/S3JIfmexsY25hl2G3H4CsVgqRUI/ 6wihanBws0yXsNhnUZG35WZzkBM9KBB+Fl4VSZw6Y763M0UDVI4+ NZM2aSgLNYzoJaUzKrUgvztTkuAnexNnftTCYYvZjB8SGRKJ6wxA8A2YicIK6E/ anbROU35LLJNp4Qxj34jMNkLAhSy28nMZUzqogNygF3vNnbrXYMFMkBjppM5rAabe19SfDXJmZaFvaBR djmvj48dSzA70H0sC4IhfWd2H5k1PDFI9JjEZP6iCdBfLMazT +3cNT9g0cE5L6ztc0cgJN8N55u/zJIlmsE6xkyYkW6LQvX/ lRkAcgRuU504mxt8NgLffSnjk5uocJarkv5z8T8cvqhEGHU4gAeQe8PA1roSw6bt96WfqxkvIAWYM1W6 Jg5WRq5tqWyVcA4gJbc +MP+ XN6YD6sq8qadeeYwxlHsmcU1hMwQBCMSHnz4bQbpVDKSVxsoakTiKlxq6MoscjFvGYn422HgW4RmEAAr tMx4wvct1V +p9qRgZleuzdzmn03K3FJcFbkVXgWrovJq/ pfBpkdiRwoBDYpMKYlZ2tOeNz2V04iVF17xdm072NiBc3b5v9WeD7pVsHltzqjD3Ym1bcGAW03G9jG/ B1d7J+3y/Lnuc4NkoYzolAIAMrem7MV6ShTsJXzLTzq0E0oxFFk93vdwr3FuxGYG/o+ ox59j9gYnqqtg4TaFI+Ac59JAb5O/ uRflQnvB5jqCwZxpAilubS8nE3zbDVlyNrp7jKUAmgIP7tONOw3spwP9Jq2CKLZ1e3iUWDoiGZ0QYyYU MvfdoLHDfGeoMYwGU1zn2rQbQkvhGUxtPYnCQpmM1dvNr0FgFOZmzPylwXMw / zUJgz9ET0bRTy72YM1QfKwLAZus0inoxP2idzpdvVHMCikQgquqyBtb57fcPD6iT5oC6MfH88mbk2cMK A49OihjvlY3qFfTVJ4sjZ +nY9H8dXz4E7Q0d/eJf6bp+aS755S+rTEVEPROau5VybxsI3qrziIGDNq0WiX68eR9wVCgJ/K+O/ TW8H2wbdUY6RVJxGgDHeSfrWElwsDJkVFs1+xE3fa3XKgXeieETVulkW3O114HXQua+ lWG7mv9YvBC75dwHb1j5434aJDPHjBDhHaYBtwJTKh4MfhXt1cAhk+RasbuU+ FDXlpaA59dZgVj0zPljb0lz/ F09zPzIV6FKtmKzQhvTMYauWLOYuuYtNr3g9OhB1nrxOJpEz7nGR8zUhsZLkrsXXwfab+b9H5N+ ml19iNZ28fUKoadW2jVLCnLIG30kpckK3yxrtb2snVh4YC1+XQc1x3Ce78Pvy8/ LXk6vZpamV3TXWPDusgu6Obmpz5io9nIOL/G0EUjklhw9JvtMvphIREs1+z+ ur9sG3cClOrJEUJitfS4nDP4aq0ayr5ZcyVNrCVaUiFuQ3Ao5NGK92BcdihYqM9LHphw5Vv6LweCxu5b /sYJkhtu19b8lH2vjtWtrbpthpkXSTbw/rmps6o3du7qU96ExeqJ4wwm88zSC9/ a1NlEdvcloWJ99oH4pBBfjyYWKsNmtuMqZYeGn4tqlsWIq123es34ou3G+bD7d750aGClr4/ qnE6z1ORoqM5z2FmPbRNvLJ4zebVLfhfe6p4050ZyuKeCd+9a1V4um199GTf9wA0fpksgefc+ mAeGYC4amxcP969FeEcnW13Q6Tk/ 0CZKsx3l7GznMGX2U5fv4nUJA8ac3MM7pmwe6DttPJsmphQUyJ8Zwb34jY4s2msuxZUrozNBP6U17KYq s7ikdaCUo0tixnZ06r3tl7Coswm6ke4frA4nvbU81lFpCdX7tbSeiSnQ3G831c // GGU4FU66M4kvBvGfmY3avE7HhsB9VYICRw40NSUGB0qxm09wjg0Z9DElV8Gc8sf7x8BOXnaJBdh8gGOX rVTzins6jt1Ilg0hxZY4hfcq74xMEz +zl88uxzCR3R3ltsV3xhnF035a7pZpaY545W7/ONoeE0fWdMx5cTDC8wHTpha+oXz803m7A/ v7yzhPR77hNPTaMUd1uI2o1kPO7PQtlNtb9b71yhingZ36pbrcJXVh7PLe9Zu7GHZaQpvLGVt2kcz5p8 Bbnf7Z2j7zc /Wc7MoEvxQ7gz1zXhs80eREDviNfJJdfQjqpwVv6taisOdtrLrghD8sSs57/ nZLto7D7mRwEWgVJ76OOl4xscjbMgkz1XjcBpUrGWnE5Th7Fyy0FbacJQ8vlDc7YZnHVv+HSXGk+ UR57aN3uUG7LHlAI4Ynki1H71P2RbCFZ+bGItog1R9ixsJyvghAW+ BUhHYuduXs5sZIeq6Ev6iQj7CFXhy+ 0uf84D3YDjDPeGEMVtk7uIavdveWQcotEum8cwoXFcI8iim1SxawheGh8x9pRcOvvKax3x71GCZl2tVn 4GeWAzaK4qyZTjy3RtXK0ANC0dZBKQppELKacNTgQSFBDyvaq96v3qyAQdYheDKjzU6Opwsw1JlRZGC3 b2F5 V8ybXUp1Glo2q6KlyD2x1/daiz3lMrgp5Qcfn/WUv9ajYgNf3al+ T6uRXP9ThOqwQaO5wClzXRqLMfR2fwtIw+7FmSbCmgAIcft24TLMge43DIkc4O+QEn9VjdcOmNzrewkh /wBj0/WYb+hjdUqIoEDxIbZDO3tE0eiOyvHoebo1I+ KYy5kBb6c96hX2odGFxPGQj4R9Gqb1od28ryR7UeSe5ZVzWkkheRZkxFP33L7mrHlekwC07J3hytku/ gztscjfIS6cbvy8XujJNZ0ThXsqHc5ielX9y692VaTb3Puj3zAMQvvs3m0O8eYGpmat55XOmGs1lTr39 / PIzKUyVvvMC9tuI6e8GNgnryM21KqBpB92MixqR1tkIo3zzUyjJ6TGSrwwnoXDqMajFt87yi9Sfy3ydr Le6fp +NjTzFb4qx378gwlosA199oxqoGYiY3AjULmFe3Dk2/h+FBd3cAd0O9/Eswe84u/1kJcixWS/ m4p4N7GD5On1u2roDMwRdIcbZSmQLir0jlZyWIrDLI+ BXbwry5gm8BbP2IgNHvJ27VrsCVQwnPTtNaZUt8jQGZlG4mE4oUUtLsjy7N8V/ GORxF5YnAvEp6UUJdiBYvs3L+djBgCAz3bytD4Huo7VtpUOJPeu/eBiaLig54X+ SYhSSxBzHLfbJuN3MZMrezgjMlHyQuZfFzzoJ8sJqOg6Eo8zC85oZyFt2wLtuidUdNgNLOtU061eI85f bfnr9HpuOkqC2zSq6a1hOSofuD8Kj1uBFZzmsNDAEy4t8C8s8Um /SNdNkd59tf0xfky/HqMt/rOw8adwZFfFbtfZBz4aSwranmdqPeRVAwPhLPWzwUI1eom+ uHBJ9TVtVUwMQT1uhJStDnZ+dt6eqh9SU0WdBkTzh/h3yAUrUxcSW1AT2IE7JZvLUM620vCG/bbw/ vQPVJTUy6gBb48bBgV8JQ0Ea3n4lx8WW0i6zCA8kwPucGsPMFcnCrTIz9Pkk5V4ltZgn35lX0Idhcc0c n6TnVrEQowK0nWmbYt5T /LDgqluZSsir+LUe3rWZb0XdlR37K7vi5S5sx9F5SqezBLuskviCszCfQ3ykhEQEWTqWVB/S/w3+ Wjhb6gabgu29qgLhHoCkG3p71vNKX9sz9dxJQPZIFoBk4PGloJASYmvO1v8ADfjnXFMAyRf6cmbSttRn eo4qVBSizjtSjjIIpDuWoN4oMM98LIC +pU058qr6RZpag7snda8c89P+G2paU/ gMUaBnju8Mzi6AqO2qasBnHuGeiiS26wpiv9RAGcfiRk4XMXJeiX4bn7eD1k/Du61+ 65R6xd4rYJDTCg5aznCLCcv01xmbrU6HPvpLuCWtmboQ1Nzp1yDNK0Q7g/ CHe1Og13wl7igBLZNMPa5SdtKyIi6Dpc+/IdlQAbSxDEDKDgtW+ Vob89kNsFztd4csBn3UjdIGr9s1LPLbv433OsVhbHatpiTkDAoOn+kZvZqSKwDLUAr1J2Wxf56n/ BbrfXRrW+p4+AtqpOu56ZrPpmHvkMSvQ1whbVCzZkAVyAMf0wvWUKWkZ4r9l2e/ W3MUFvRT1gmq7ZkAsUgc6pn+pzzjiBsXRUzoXKWoCMUHSIHRWfa12s8w/tK+ BcHFy67lfoP9SioodaWDp0RjOo9wtgrtUlcnc1+ 9EcTqjuKERClurmaNSDUH3kX2e4v8sgDyOiYvnJqWAXqp674ilC6jbATtt4IgcBt+ 9SlhpnXOG1dojpI4jD9Lo4KQ84q2byBsmrzV+zp/Yr36+CuyW8H8jTm6XWpiqAbZVjEkNbIx5+ KIt0hYLX/bkylzvzkGBDKlRNJOd3zKSbHJwfCiZh5uOw4cR9wOiml5x/IumrLd1Cay/rc8XU+ angG7qHveSZud6PHbrOtM2aylIdLvBcJhO39e8V81Ylv/ nHEA7QFkQeN6z38gYOcmpVHio05tPHDMP2Z1owjzo99NH8larWl5Zql5GdbywOBAXjbEkdmv7h1L+ JfaRoK6AU3f3988xj0um9XG1DbCYkg5gvfVoVDGojpy4LCBa7Gp8jue2apAOmNf0278vG2F4ua4nVl30 lCmdVVFHq2fwkpWY8ec5UxywMOfKeQmj3cavLc47ae9RCN3xYTAjsDmNseQ +SXn5rK1/ShHa+ SdaTtAoslpWEnWw1oicBWXU6R7zHj9aNIZ8tVh64Dm82006uWjOho7p5Q0meKKsWJwIq1YF69gVnbs6m iv68rGc3Ro2p2AyvJLhCj1xLxDUdOcecL2NpZFnH2ILyvAxjwTak2LMhyXb9FlWsuganv9iucIhrUh1 +O3ZdgyoRSDCXkUXPJYZta5Dng+6eCAybPFoSKXVpVONbkiuEFgN4A9D97IIWzpgn+pF36HLNEZ2bo+ TCSfURJ8JJMx2PwMjiHFNip797rmwzNw18Q0P39UU/KocE4zhTo/o+l+ aiW8Qct8uLArLI6SsRPyFAPOrXXKjhjjAfao0LQiyE9YUSkzqFcbMIrxHOLHBuC4ku2c52JLGOpzf7qv LrrprwFabrTcrKK5n6x /UYXKaNCHJKMKtRW/ qHhdrvffy8XA3726oQ4jsLYCLy5SwDpJaapVCHKqscSRrIXa3QmJMnxGAqGgFLJY620JOEFqXlrLMjT5 jtxuqdZJRH0s3v4isdoSkPJP5FieE9WTkNfocjR +V5n+ csKpLhNLx9pVJMcJ17TZSSystAwNYqsVNRWPvY1e7SFLvBgBABeUOaWOxg3HwTdf0BMpn4wXlmxRR7bQ R5ITfFTgWrlap4Ek7rSMHGLsa + IRM6dEsRboz7xvavBWq98VBlhep7YCfKoKXBmQtZtOGrAXPzRgwQRPHVIIGhJz7rvA5iOsYi3werfo7K O0zx9G0jQ8bsw1wCrVzmYaxG3n1nFg6nkmwb00nAtUMzq6j14xOBaUZPEgWvQlCVMHxDDN1XjLfxx9Br YWLbZijONDuM3s3xrvj0nPCW6owqBUOzjCN0XwRenmwmA B4YdEG9MQAGOwakzec1Up5oLsSImWVQuW7gWODkpSuHsLXIFcFMCOMUgXfwexjiaUDpoeXA/LVpl5/ WvZWyRUAcqre8G9Jsrh3XdtixSXZp9tmIoeKLBdjqKPox5oXXHCl54rpLWdwiE6F+Vvl+ hkaMb7BEtbledla0UXjn8x6j593mVV9y11/wxqeuyO/ae3frpN4GJHXTV4687q4+ hqQayiY9VLu6SZ4oHlDDh3RAclkl7tyJUNcfSxLbTmByW1kXB9XruARb2JW5ACTqMXkJUyURktaqdMak ZFDLc36Vh6h2ngP8 +8r4w27BleoG94gdDnEdSnyRFwgEPM1q/xrqkc4uoTu+bfUr+ XDdhhgo9M91Bjc2CTeUZ9pnLpy0GfDqNjFmZkA8gqgXFMjWjk52/JLZ7Bp1sjzYq+jvZb/d+ Gxhnt2a9YVG53yz/nnC2l8YUuo9xws+ SJNizqYbSNMCLuWThrFgtLBe98DjMu7EpcvGtTTw7AIANk0DpstYRFdWAFJTUPgww7b92r/nAFkI2e/ Y7bjkpXmfgqY14wuse9EocaeqS4vIbyu4K8wRRUmTGcDCPLtoqfjYQUEL1CybfrqWaBt/ gOJAZLksSS4IgHwCS0svoS2XJlSPNzNwPaqarChydsK7u2Ijwjy45lccd5YAmhTCfxDgI0wjIe0rotta AuKCVylch5x0j1nrGS9s +mVPwHPdmeWcQJPbktHgM6At40+O3UN6PZt6ZTTobNBZSZPQpOCl/ PVMeqfEz05ToC9j8EcoChjvz9XnENqGkSlJ/1FjJHQVElGmE4JA+3ubmgmw6QdOqi+ ydD9Wxsxeyht5JcupTg71Ou3m2QiRyAxy9mgnWVawJ2zV4os7obI3eT7JaQYrnq22mIic8tkuydDdsgw lzaLP6eYW1hQeWg8Bia4FX802qiD0SddiPX6ZnapoKWzEpMgtXK4ri4IQ37xIwgoNjJKQFAcU5xjCK67 voNh4giGPGElkI mffhCkW6UkAxginIcTTBK+ 5bwdNjzjswLl6JisHc775qxyRvQ5EqKV56k48WKTDtRy70YqZuYd8eDN7hHA6/ HMkibDwuNkXiODkTtYcaxovgR6Q+YzVxdX2wtArBw+vVybmou0j43b9t/ L11YfLbBsRbIMHPJlztvoRFPCJhuee4uKNGIiuNqSLAW4VvJw2CjefDt07Rsg5jbkS8HkNHZRYnmd0p0 Mi5R5DkOOyFfxjGdHdZgw0eba9g9kPZtFxSp5JqsM + F37bBivoM5Ts6eX4u2sptpg1txgcvYBdGo23auNWwZNNaeYGIdCa5j0xGVUkQJwtu2Psfk43cwvMqGGf A3qEHaUjkm7m4abFx9fUJXsJY5AKVVK +1tlBQwP0gDTVC59qITiot3b0GwkyGtwQx5b6am0NHaPnIww0i1dDibURLrD+ wm80AhG2nk67oIrxwYxbRUDAER7MnuUjgQkCsb8nvrcpIGqbr6Qxi3/c81KoEUQDYU3edxj91AQZq/ vDG1XXpjOkuluGR8Zy7FiEcJO5ofhRz4cBUOSalhbatAOwVMI4K3ohq1F/5ojsIkNexc5k+ MhAtT14Ta17qlC8cgLNWHa5g3ktvdhnW3xqgGPFr+rwOVcRq1Lb1SiQo9g1z70o8/ LqX6jgR4BwVe6heo94etoN00Ih/r9kJUbcHan+ jOoKO3n1IJdS4vVKZprHMsksx0jzpkEBJ4Yw7FexGFf0FDuu3k95vePJhF67VeljZ24sjwbqUJYkFGbH dC5jtQA1jp0SkzF2eT9h0YXPSoP2CYdv5HyMR0LwHNDtmHAeWk9cJcCXtbqt23rEYJpbkNPl6vJhqYEb N2vQaemph32msaMtXHf7 + n0YCW7VlvY5EmFkUrUHRPAVl1tvUsBMMWPDA0k9DBKbYEy6cFBEuoc4NEfYBJuNXbNSIE2EJSilsYIUQ u5dq +Ra7EMdNzCPrUBIw7Qxsf3hRmQeyj1ObpC7nJsjOmJO8y9LvO+ GYa5Ewsrxk3QJNcucBSTOYj9z40p4r3Mi0ljv8l49az/u0to9k+ ijgtMz4eWJ1iBu9diMwkOhxeVxrDKEKNoi+fRr1UxYSpWD3mCzhrUHPZEozQi4R+ 9zowi2AI0bzAU8egkGjg5lgxgBmTWciAu4na0tFuO90Dz6CUdLqnB7M3AUTYKoi4Uqgqh4/ 3COC3jJHQiVUj0CtZF8GfJuO4yeWopKyHrM1w7mke8fEA1NuF09mfy2nqthx5NgfnBdfyepjx96MZyLd AGk1ntsA8KfugOmlldKxQ5oeOvSGUjHrIlfU3WMoBPgry6q5NWPtcKzEMd2Qd9Z /U05yGsWhpgjpepgfAb7NwPq9z8affdS9KI4qbJbp/vMLyLsTBNeOBTack3Aeq0RaxmLzQ2+ 0RxMQDOQschfp+lYu49NmG5fIwSOOkGaSzOG6voU+ 1dnMdICYcnwqnd4EhreJyEUVQoVKxVLQ3kRgkhNAFngIkQaKCApDKi8lbXWijuMsWQcElK2MmsSnKEFr dxPt73pbtuos2OFvE4 +jtSYWdNShxwmGBn6nbYuVdQcEN9bhlgySvVi0DOyKhLyf5ARpmzrm2677i/ 9M8YTA1BDbNF8C0I1queizgz7P7r7GE5Tg9Wwq8fFNPuiD+ t6mH6KCyySDBKZpyyjxKcF88K2IDgkycDM2B2VXW5Lvjs5e458MDGbx4D/ Z1gGfmpdumSuqLCO7mUY81STz8XnIFoRJiwyuEub+ opye3Hv8hZ6LsffYLnE4p9MYg3qZvXLHqPJsI7n77bDDR8S+jD2xebXHhvXtX8Zk/ tAIbaEcE1vksnmalhZ1qgRQkAnLY6tQ9iXh4NHHbbYr49MA0GouaIMurwqJzilewESQNISmKTzRfQO7U Fpgox01kUgI4ejb05xP9ugAzJKzCzEv6Jb3k05u1hg1802PqpIHlwiTQjtEjIkg1HUksRWiPyjuoygeu Sebg2Z54tQxLo0FDFP9vNPnAeNB ZgWZCuaLpUd5yal97+ ebxaKTB1WwkW606HBv3M0xnk4YdmN0463fEx3cnofbwEsouCEmrIvUy6lmU59huszPstyJ78Mhpp6dt4 2 +nlQK+BVsQRVOY19w/T4Bxyflm1tVO5d481ynB7tE/ e9nBUFcj2Cwzm3AqJnB4kocZT7mf7d96IPxl46GPmOCfU3o6kESninpvA8M40pslLKdkbg2fOnB8iKFp MmyqWx6kVyBO5aROCrQDCyo5 +nfqxmLwdOlyTpKdRxtTas+E8fKLn42y5A+ EQw4j5cwyjnhUTd9QWfyPqlK8OAXpNik4fFfcJz8Grg6NPn3i5JEoCGO6mutSg0l8uDpgRtZ37ijcXOh 74W6yUToqIHHwZGBB0n6Z91wUT +YMswyP97sH/ tbTptorYayJoqkeyXCOyCOUWJc9d58yFWenSKobU7IdlgtAK5Lksly1IzVeZaCgukXXyDqQaf3dbUorh vhr19OLH1NSV3ZoMMdlZGTYqqNUlQTMwSs5zHqamrhdEiZBwpV9qx1vRAg7vT +PwLeNPxqkv54nfj/ wFmpXCc4vlL0g4wqQJuI9pptwHzKPUJFU8ha1qU68SzW6YHVnAY9jk0n5C5lAUdjRCg+ K5Zkb5L6OpoyCW+ v5natmrZSEZYElQOQQKjSOV7XEiTRJbNbKjnuQ4cmGPUbdvRjWvWNEMIb1OcayxLheaxrvzvUyW7NTEr EIjgGo9ImoG +ll9fkvbT7AMofzhbSAB9lqqnUpl35Ju1fYjYjfZ+ lvwFsgdBLoLQtJH4UdzHLbNCrqyVkWIAUXgpC8kV/q2pqVsBsAPP2MD+R2Mz4tH+vfsh5aX95b/ MTOJC4g0S2cp7uQc3I+sS03rTRVpWPNNrKXLtBovCOvEvLfXD1we0xloSZQOKcj/ 5wRjfzaJoA9R0dV9mw1ahypZEy7D47dBcHy/ gB4iq6bcEXws2VkurMAQtmF03cwU35k01i3ahSLGjOVzUBE4c1uc/ aJWbTiPZEYZ7NTiccKWVEtc9dUFRLjuhcbpHezMAR8dJxz3gdGJU4OiuQib9LHnYzWXjf5JNRxb5KNDT j9yyu96161n59e0n +yrrkr26qX5Vzr2qvj/ zq3r81v8g8q1NnaeFt216hATjz7aySFMSGsyK7j2Fjh0ag5LnHHdcwTowxD277kIOjuGFYtqycA2E5kW 4emamaYdqCSjJAZmVNuVrmTAVDeFRLC9uCAFpjBPtes7VeeJpj5c99gpKmnQa7ms1NKltHWZQhpJbWtC FQAxWT8ZQGMu1vsVtsosYik0xB VTeRR8yULfCBNQWPYn0bZZuklkwzDv4sBfQwv5LFqr226olrhv/l55htXegGifl9pwfn+ fc25Yt4soOh3a80ybTNm+ gl5PH6ajudtLExGqhxUGaWGDPlVZQNARJg5RQ1UU40gle3kZXlXZL21M4Oevz2ZrKD7DDpM2P2692tVU Yy +WEv1I1rxLg2qWQEnePSiG/ BqXlu6O6hKOsl9QQvoKwMLFM4iEOWvZGBuB6MHzyBkaOI8k6Bh2Sj5zZEoReZ8rKaRbqqNLJpXTEMl/ sQhv72t9CJ4y4nhmpH0va/R9w0Vgi31Bw4fas21dX32tAP4N3jXSs9HW+ [id number]+ vYP3aEEZOEClPmgH8IFc1KVJyoZrd5pMNyZyIcSvmqJxJaMzi6NaevxVNx8EcN/lTOLt2dj4TR+ 3tqPugcdIkIoE9rVDkQ/l2rQA1s7pxfmmQ5Fvgi0l0c2e+ 7uf0iCXDHmklIB8bCUNg6eWwJepDC4XxS7kBjivDzXtdWmAcp+ZWt6u/ 25rq2TAAp7FyLGIPwfPIy1IfO/z2u/WxhTLKQEiiSR3+CNFSSlLcaaYGewZ0gKRzkU8tEe+ ENEtkST2gyFO92nkwG2OmnxoFiwTBVKgpm3gAF0pjmoLLhZdL9HFKr0uusX1J44CJoAd3ucJWImBQO7B LcPu +QOZCdjLGJCws2+dbIpw5hW7hdKs2CdgmjeeqVPYk9KHcHOmRuXnlSj1rpHxhZEt1u0lqxxOSu+ xxdYiDw2m5Kgbh59etlojBROhHcEFazLYTTZP/cHxijHQPpRsKimrsB3JKNVF3OkodFecbhzLBEgpMK+ 8/zru+/CiRnFkCgJA70DzHGwjy5YF7G+ 2RAZvgNpavnNYqgbvm6zRHvr3oGeAwXws8AwPVYRCQmRdJqVq6tdDyKxUZjvVQ52ZkixOVusU7q2BWKS g2NtjEGBF7YBkE /OzyJ47Nar5D2JwN8m1/4dW01+35bkwrUgxewbGOLBRmgA6ndCSCc/uuIlR/nGzF5iSWp1NS8V7Zr+ zLa0aP9psB+zlVF1QP/eAMoMKZgD2VMrpdStTKk1hj8xuC4Qfft/ EVbkmBizpO4jK2Hhr6xMuMX8u0pAzApDReDd7MFSvoLiPOjFHN5PpKyl+ 4LYPVz1yNYBu2fZbXbGrIVyVmX8ilvoB60vui3/ Rk5EnK2NIqAZ9p2GOky9ifu8TdPzBCdVzwAtwAHJXwKNhXDWblBcPuN7Q4qbmgvtQknhjYYqK09rW2eb OCXbyvfKTt0DWKJaqi +bHHGMNhXAXBBPq+ua/ AoqoHqjm09tejVLZVAYPlXxKQdBksSbq1ubsPM4yG96hfbHBWhYnKXwoiWAdEyvjMIyisZoX84yOUd+ YOpPZRCaUlNU5e3O9+s8ddujZXfwXgNpZho+ x49X61qG007beF3sHCqchBKleNRujezr6wRrOnrrNJICM3Ixhogug5yArfvu7ly98ZREVIOMVTXlpXsk WCSpU / teUlEn9Gbj8vWmVRARPQRNQRCCTcGWbe2TELusbYJ7N5kQlt1CL0HKsGDMasSSFiUMGrDz78uaFkwLtL LWty5HoqOficMED +/y38F7hnlIY+2t2dVQM1K0pMAp/w81N41G+ MeKHMQUkBNnhRrQG0zGTYLwHvi8BxlytLFOl55wbI83IGvkg5pqblUvz6qfrne5dSIuxmxAqDkgY3uZG qHkg0XQr957s4a8R3Hx8GUN5nmLrFIBJCboP1dRbTjHFLmHONifz3I8wwc1PAs8nln7nxnUGzgxJGYHg K0wTYIGQJFIElvfyupADAkDTl5Zb3 +aGgLcJo5fS9GlF7Awmty9iGgjl7jE2VXR9bw6BGDWP/DvcqiJy1cwKnoClY1ngU2l+ nFtY0f1dCir0nNQpHwvC2ovFGRMTaaAYejWtLvIufIRQ5MIl0S3cpqn5AzapsFEONORcwhyflEYX1mMC jSQ9gzIFoYhmTXb36j918uMJVKkt7La2bKLrHeZ0WEXCEtNVQqGZHpZvg +jC65gClQ0WIAK906/pGIsXC470iMK+TwvcNZXiIyVu2CVrW1yc+1hnSpuHup+6l3AeomD+vn+ xqSA5ZnjdD2ex8FlEK3W/QWgu01jhk3kVPT8OIWsgi8m0/ dN8CycKkaCqZSYa7yfrsXTDaU3GI2rJoFLfqtlymOERYx+ q0kWq4BhAnFhurTsj9WAUmFN1cDyrDfKVeZ1VJpwB6hAXcjtG61Qk+NPM6GZIZgObEwzVWVGMOq/ u41ibHw3qAMkv+ kkyHUjFZDdNUiLI7zCcwYiur2ixkl9jnQkxtsUdPuiF3iYLEeNgsJ7Ygwm5ALdQZ3RzclRl2VVOoUxAR hzHq4tWgvaCe42btWq51bh9u /W/vps7sSTvuqh92mVvIi3xzA7R9lVfaJ2reoihPxsaes1y6lBLVuqlB7B7MaS4JO+luJ7o47+ A5n02jHEvsUh2WB65L+PZ0tAzjAxVUu6rJnMnxBk17vam/ tQHj7qYqFttmKRfFsuGbrexVnuHHGo9wghgukLdRtLPPwuvzB6A1MXhUuOC4c7GJVBY2t3MHSSExc81O bGsEE1kututacJzqSbt /wcC8VvMhkQTCHTkIHtCExN7K3h01oCBwD3JYpNwltHDm0agPx2Mnqv6iYHW1DBQ7jb69lw/ wQ5A8vvIo2X/ZQukfhWomQqj4Jo+ f9hx3bLkFGuuM8Xaw4w2iLPmtbzMLd9F0ca8WFb2VFftNtA0l0Dv4u1Nc2kzlNjWVZj2HlRUs845wIdL QQ0OI9ihyagUxwFplLiKp34WsNmRIR8oHXXDBT8tccuEqcH9YNQmvkPuOTAjVHOcnQ9gjEGSVEpKvrbG oKMBf3p6xgdwWZn8YCY bEgTFrVE7g9sSdzbxriGhZS8nLHC0IVoO2KoPGxNEBzZmiDzM+Z+ u4154m0458HH0HGkRb9GNVyW8DVTa60HN5QE6qfDPVi6v6uhYzCaEoBwO1NNItsIm8l/uNsWbGza+ SWCSSaAFBFIbhrYyIsrwwQQpMZBG+ZrdCPPeBW9CAxg9JyfaUtovFou7wkyfTxtIAK/ AOaROkHRfb732qnxgO1hdmVKuzEYxM8B0nta2b4n0154CnBQgOZUCw5EVO4H2g3AmU0vojTsEKfERXx2 uWUrRh6mvAft7lm9e5UjMCynMk9c7uxUZVDT1u9uLf9qmiWoPgupf31tYzZHIEj8AXFzNoPUbjwh6eaC V1T9OupyfgvMnuVb6AjR8 /VK/wAyncahbNbSSaYqKt+ER7bYPOKBfHTZHp7ibIWe5KguvlahEduqyPaNflrEqg2a/ jn2Fby1hAE0pCxIqC3bcaIbnWRhT5ltXYeQEWR3GPwDM4kJ2o6TXlkm8jSLzkPWo8ahpI7vdlRuuTYys ivl4m0iPdXa2zRGu52 +gg2BNEuxQFNUOZ8qVwvvntkaDKm8OYitNaWoTHskpfWF405mHmik6p+ zz941XqZeKzqlcIuhs4o6pw4W64PO6O4c4fhTfnViRiUwIi9ZNH/ wjGX3Sks8YsRFxu0IPgLejh4GY7w1AmrxXu5RXgSYjW8rICkcMmBeUR2H/HX4U6F/ jqx7QwPwjy1uFW7MfLtndJoCqHPqohlsia334pAnerCgxtiEp1BkLGFmkBVph0B2s+ bcSbP659HO9Pi5mASeeR2iiw2G9ZiRxr7l3sKC2DLDz1pGCRNv2zVF0BSztDoBWEqqhgYMcrjdItT3Oc 6RoOcHbxHZ2gjXwp6ywaA3b0Qe4BHhszUwYDTBEgapPTNBUVIR4 +VDKQO5cJ77cEkmx3VslxgUFtFrv5k5ZyHo9i+CianW9oIiIZV5ahrFwA5nhcs66X4ALcplW7zzbR1/ ZQ2hqTlcx3S3ongFlbVzJmL0IOHwiN19KcBjDjw7BXZAF6fQfz2tAOuHBDOk41u+NPiHql/ V84yrICsneMlFKeugzVvmsdYw4Bb5sLU7DxwrMavJZXK7p/Vv/dtU7TyTVzxRbFay/ MSzbt5s3lQHW9BK4wEtnEakpCvMVKM+3predeENHlJMvOSwdHj30xKbX01xnaMGfeYFjFWHBS+ RZ3RgupZx+ufyNjdVUy1L7PqMqQwekGhnRM/DX5xng0o95f/ EBziD0MXmgTwosm4VHbLrPkqee7p2Y80UkXEa2qH2kOVM99GbyS8rPfpm2DSLdM9Ml9PjCN4ZOjIDYT8 Ss6mLeMw5DmGLgdpxPhW7jinp5yuD7mUX5dPWX9y6 +ysspleDyncRTuY4+mkRPIYR5mRPv67ocKi+rmOA5f17QUdIYOmlx4KdW/ HUzGWPBMv49neD7xg7mBPXg/ 1pXAUBvPmTpwjD6PFOLQJgVyEAn1fDlAoRR0XHDqD28knZe8uixk9Onbmbix/ x4a7GM8ZRbgPD9gpG00lCHVy7d5n7yg559eFm/d/6Lk4Jiv2iGqSbqHbXx+n+H/A/ cTOfGmsGLrYu8rq1k5d3zzgdzyZmkqdE0hpBOAowBD7iH+9SAIWcPpRdnb68yMVcoIysa3h+J/7POgfs /fAl/DPDCwkHB4J6TV6Se/yU52oyOnIqxPfbt1KvD2vceF8tYNlRX5QXzJd8Awiw/N/P9pkmm+ Gf8VBEzveH3NmiFvj1fYwE2dPtwqZDe9Fl8rc04D/OzkgCSVfy9sB/RBz4yn70w6xy8Si0HN6Tp15gXi /Z+qavbzwabcXVnp/ 8g0TZpFkE7V15thwkm9we1tv7mj79mvlzm8z0gzyzBpOSSPoDSsysaHo7w6Jn8raNRUrFXggl31eEq90 fk8DA1EUxqUI31Wqglz +rhf1ojo18a0VELd2qIXSBy2mrBsZJ+ VNkefL48atOfOd9jIyErjbxh0cu1pToIgN6Xu3zVmycfB9bqMMR6K1g+ q9jlOHu1cRMkS1SyzXtzep5i3EEbBvRRag054hz6uBo2EygK/x99qbfMuQKqS6ZY5uu+ IWzErEzOeqTeTdxTdQcP8poZkm8tswXD7wd98pSopdS8lxW/mIUvkOkhgvRccks8WjN9S6O/ YAvo4NrtYgExF/cVaMx29g3psBTfe8i2I2Pc7QmRd9lyr0n3B6X7Jl+FaytZoDrF6jIg/Ea/ iKB1Dne7t1byRH4TD1C2qelpQ95ke92ofoyuad78p/G3V/BRaC9cdCp/cW0PcYDn2b8dx5203mTs/ nGLaFTviCq6li7lgpj2bP6i2R5dwmtggU7y0ro2gFtXh7pmslkrt4W7GEW9Ga5IazNOQgXvpYOLm7aFf csd / wcwSraDtS7zkGaHu7jQ8VFNI5baMtRO9x33Lk8nSrRuhwahAG7w86J8kQlxx4d2Goby2vbmFYEYYB1nh 7X4g2drwKnvHrbyvDSsp4HY3TNYbUncEPqY66 /PKz0hcXSgIBIXAVPsE5zs7lD7GA4hwPdv2oxM4vicHrkKX7OhSVCDao+ hsLHBsowmDNMGO1WPBo4o3KuFzWl4z6P0e3N064O0X9ZkNCo8s5Y0ZxXeVl6fBNJWMCs9gkrqhPusQx3 kQlM4yJ6c8yifiGwIv14b925hCj2Zt +2v+xEL9iMJaFw3fb1COfmzz0nLWim/ uruNNSIaSGKOqd1mwJFa8BFoN1UtwRKV2nzz19JEHY2s9YWXer/YISRxlgNgB9eUQdVVb3/ UPXnQJOv64sRPstLfZWCG47nNQMeFaF1x+eNbkqgSWNFi+ 5rs2ojmmqHJysNULGKzkrTdEEgJPg1I5jZqn9MKUHmywLM1gnqehrFKAj0sMMhDopYIfTZ5pzBWrMgPY Ko8WV8KwZtM40igEip5aa7GY8Jykfj20Bd2mfzbBDq5cRTYYrUgZ8tns4i0GuL1K4h9K3nqs1o5z31eE g62 +NshGt5jtF2jqBpCqO6Ha7+ fItOcYA0mokki60jnrcEF71DfSqG8qvCN3tNI3mGmM6fEX6vlfmOgJ52b7bgJji1B5XN6FW8jytNQyan ldVdH2lwzMx9Ho +g5PJLJyKugtw/dMdOexLl0a+ s2YmRa9pyquCGIpLuKnVtuT1mwfPKrCS48hHWCCyFmWPCqTLsnjplZITdpbk/vGpCMJ1rGpB+ Vx3vye1KauLCDAxpRiO4dE0lpUJcIaXohCqLEDJHuOS/hH3t3lw9yCSj4hcjBsGCnpHwchWUSd3GYklz +lKi7dY7bz/U+tcaOwiUFehvbSTg41jneUyxz7fu5w0py62w8fPsIm0h0+maZOvqnm77PwsQMWVLRo/ rqcxzi7uzem8MAUYhooJfkSkgXAUDv5ixd2MKMSWel9vyUKswefNwS2cUKBZdjDXi0kBQxRVClVeGIk3 gBLimb9tQqhqWNCl39lObUyNq9zJ6DBBRpAvaosB2Lxz7XQe8DARBZENDqkZiK +/UtMcaW5CfOQSxtuUcUGWohMLihhKHeUmFxLXcxm0iD91M5JfKo0rhuG+D3mPcDOyPrgWqiabKrCn/ Axv6p4jn51C4F7fIp4wyEu7rdISUvlnCryrc9S9PKPaZVILqAT5nViKIWODoqzuf/ XFMu4L36hXJh5S26Es4dnt7lGnSEzALcCrk0mdM6tdY13lL/ A6jHHczPU5xTab16Ofaiyx6A2eebt2bvwRT2/ hwowV0vXZZ6O5gW1GdOj159uFy4KxHFXmzh0aVfaxcEyI1WNuzx76pcK3d2LQxCn1cQGwzTn9pNDlSPT YhOL7ydSvl69IaFGq162vtR8mbETY75VnEBIMeUCl0RftDz2B61oyZpccaK7hOinjiqThX3JLiyPAy75 jhbtUsRONJ eZYieqhsZBUaJZGpH7a2/TPDeu+K7Uf82j5d0yWz9Y7VdE+6sI1jB02ufIz0aYRdb5ZCPFTv+o/ bQcGB5FmX2gFfQRAgEP4HOKTQE+G/U2eo1Fu+GWRxUeWpp1KbWdVV5d+t5K7+ hdZnPbN9cPF7A3mGXCe2wkrBCVhabUFv1K1zicKqob5ChjUaZQ5e/oSTtLOUTQkiYkKF0Nws+ sjken152ez4rYVcFlfdVgr7ENnajsvp+ho0DkJmj/1q6NwkhDqzv+EPwpPjfXdcuvi/ w3tDwtwP84QQbRq5U/C/cQ0t3w8+WGwa4hvn4og/ RIpuddm28hpbVlA6Tdz12e0LnIA8L8IWZDRk8xNngEphiW8UDy3oAStKuFzIIwrjVc8u4ic5hckNb2l6 7 /0/fWv3SigSp9AslsbIuRcScMLiBo+scuy8WctEfRroqug4WFzrZQi0JkAI45hp/ vSFcQbjOmb5Am7iqa34ccbYl4wvWr8jebza1FdM77BDpT11xFIGR4vp0a+n32n/ UWjmWJyqd2L2uAXtXAyZmSw63iLrkRbNwg2+Bk1TPf2+ZtiHPT62ChB/ XRcjkdVVRo020LA3qhP9RJ7HH6RFxHkJWSO6lls97KllFbZ9D+KOKE70R/DzxreNay+IPFev+ DF9X1BoAs0QW3J1mY2nQd3TwRee7AvIFSgDlk9v4NI8l5vPHw6wPhRhJ5tU9/ jCFSXT0alivYN3H7mk1GjeANs3uqLrYXlYO6GzAV9lvNKSOqSpdKImCVAKlyjGlrsvAmzwFeuLcAAfv9 iSmD9kIEq5bRnI4JTc11x0oOOVLFJxFVaSVwGCUyVxC3HtpJf0yjSrXb2s6kAceThvTq6WLlWyknDeGe W8E +gVJI4UQC/p/tGTPgHdkvB2BhcwdT1rsrF0BW2aOEWIN7Z1pAF/ hphhNHGh0Uqyty41nB9vHvbZbHhj74BSsYcqRL8XoTkamguhp8G2eg2Dz4ih7p3dw9tjlaAROS/yX+ ed414xxKR4SiIg0sp7xuSvCi/BuneG4/ PZ0Y4d5x5GEptG8vg5mIi27upgmNixYs24oBYTwc09L7socusa/r+ 1Oe4ze8QmlanNZk2y90v2GdC8faZ3DmQrRrGsgodF6kM0hvJfwxDZ5Eg8KK05jttkH8hewhPlb2g+ re1W1HyT7ER6jcAzZFCkTVrCOFUU4oDxb2mindRmZZL435Ry7gXgfo86Klava2bsBulpD7xObcOL7vL8 Jm0TxziSK7mfjc8mGq8VvhGClmVsRJcbmx88waen43d7B +SPSdHakpb87d0/y2rLKOtFuHWTofeRTG4o8H4Il7R59qcRDMhUKHTpfnzZmgr6da3+ePC/jdiWX1S6/ hAXnSL6jo2Fja0Pn1BSK+sxDoec9dPsnOQPKFxaMmT01VRV8KP9Q8G2noiIWb314NcjnAatmfofX+ amLApORg5IpqIKqinnIyh6vgFUTeXGpooadB1j05eANXwznJGlXly/wNet/ S3t5FVZd8VkJrEwvZTztgsQjpiStd72fe58wcMxEd99T1n81dyvgRbaiawj1FOaUaaagvLjVd077uj18 zypkLIKJ8y8Z2 +JjFkqKgMtQi06cKRn1ooVB5xI3RZAIgqyc+W1FYGri+ mbEFCE7wqL2gu45RSWKBl3zC1gNqhmPQkW4Lfqj4FmX2KzgRhO0ODHar+IbaPMIW/ uqBeT9fFfwbyL5t3dnHCa4ztc1tFz9unD5ZZj50H8/ zBIfjzue55wpR1rVlr29peT6G9Cx5efiPus84O9Q47+ J29ylNLaiwuyWwW2fmZ9TJfIikDUvEGn0yL9or6bK/ 1Ooq1jd5DktbfvQmgfsKUoJrOtCZY0skbv1eEjZoDujkoyO5rEeDuAAN2rkslsrawaRnpJCd9lvOlxsn bly829A /ZDfYC+llw9rLWUa2M5y3PFIV+U/wKjvO8Du7PL5KC1Kh83FmR3fqtAtCbPRir+ pm0My3w4B8vOZgAPf8/WMeLgyWeJq2G6z8Xr123vcdxb/tU5bdfBTAQkyzkv/ pRPJa03AbiMDY7pOHMDrEb1+DT4/Np1fXR16JnET1y3lwpnId8O/bKxK9eqxK6+bq600HgecWO3sZ+p/ XooF3SaStM739XkGZGbapiz97Fu2TKMuE1Hst1+sXk8Z+29ao1uiSUEAOZtRCCar48duXE+ 2lUls0hrenRhKaaV1m9Ue0bySp8ataae1e1NAWUHrxdFP5xAYasJZb2AK11drbhETuzK0hhY+ pdN2wKMHr6qz6CbaQdG5IN/ wbEmZz4obySrFmT6CBC2ygSNb0qptJpmgKEqDZ2UqM7tV4dV9XbBe6S2FFfW0Ix6b1Txu2nog2c6+o6/ pmnQ3t/Rn9mIlihyxMUNyMCq9zaiyvYn2vyKdc1gt70k4G8kKYb/AMMl6h9c1QlrNBm/ GEv3s4MEr5ux0ZfEfhi+fbffOqm5acNN4+1tiV7ZxQP2vaDcjnk9k9pY7ul1ROzm+Jpb/V5yj6BWMy0i /tQtCobxcDcXzWR8s5fyUZ+k0v5dcQatUJGemU2pcgOuKImcx0PLj+yPsZIMbdip71Ss4d2z/ eABpkzA5GRMIbybnXtWQVu8jwrH2lG0xwZ0m3Zz0qVKUkczq48kumrNr5DV8Yv3kJpnhmt4xLdh2z10H Vj7x4vrtXkOvv9b8nm2nY9rIKm9oxfI1jcns +m+ UbZnqlwjBIE01Mo1jC3d1VjkGNAAf152ggX0iHhB0oU5fxxpCqBYMWA9SjwNpK2R0SmPg1fQmBuw9o0J oYtfaTQqjQ0p6 /g8JQlg2hsYSL1MJt3Z4hkZvJr1duy9Ok8ZK5O9ZE6cfm5coVUXKy7czT1fj+0W/ cELIFql0e1v0y7Jjhnu5olZN1nZL+ ocDkSfQ1ltH7Bm1O7uOaGhiN6rCrZiVz69oboCa1azvTo0jhZJw9/ STksvwIMccB0gp6iyIhbchpSP8jDawPj0l64GjQn37C+ 1kX8L3LZY4uCB0X1RMtr6Ev401vtEf9ahPcdLw856WpDlAmtlqK2B3D6MTWa0ZUl+ fjKO5QHVTba8Bh5qmsFDYNN9IcPvkQBL5R9FA0zApurYwUp4PpQpcoQltu8CzCZbz7t51PiSC+ jqdl9Tx+KFnstUa2O57oH2Sj1oE6s9nZSJCAHsne3u7+o8f0RuH9rfBbye8zMQ0RsTnp9et+ UwCKxd3ld/sNkjS5vVa+ DTQ8YOtVuxkE8x7BpEWHacUEwO1wnbQXf8iWPVBTpnEwPQX6gZHDFleJuuH3yWeA7Bo1pl1zkr+ c7XGZa1ydKPlP3uOicj1rltyi2u4jn7BnKPg0v00Xwl0NNc5cp8ou6ha09e334mbJB5xeYc8Rx0yBtR5 in4TuGSmNWyOJFGri6mu0jaFkEpIrDAW4u2i1Gt3Bzim5Qinpvixakp3 +h69q5n51sowiFzxEVr/FaRloXlwkIYnQxLjbJC2OnbgNSbYtj0tJ/DHWtG+ gH9Dr8HZDk4rpPt8fB5Ay7zxeDVmjIxav22i61l+qxasXfdsX1Nd0oqVArcakZ+ZY0/ hfa4mk42UwjlhoxPg+BDRrkbbDrKfMfCm21cYD4c0mPr0zFr7ubmGaAGVRndv1GCtvzUkjJpJn0Il5E+ 762fU+hkFfXpzR47E2amieCikJUl1q9GgGtJ+ zSo2NwNszZhBfbIk2W29Tou50SGsnDZLtA7zdFRxjOmyTunJys6suOh9UHrJM4Hsjp8nm6kJ5j0oJo+ XJR0HtmIm1h3CxO1I6p2qhPe8O48+6u2Et7TRIo6Uo1u5gzo3NNT3ut+aMSy7ccCR4teH5n3frhH/ m7B983UbO8h9kgtcJH0utmjclGM+ 5PD6LZCZ6D9lHoHbg3JeDzarJkyzwSYDItxWlkjlVutq23HyjKhPe4GdO+ s4S4HAr2cyhBW2y1TDJ5d8zJmG0+ h26ikeHGkTU8psgOJITNLIl6NkTHLMvxFmgMpFddjk1s7ZxexdIoYkBSODzLwvGZtDqNpR3j3gtNhTI6 Sl2olVM4n4f0YV4ZdDUskaekcFoGq2z9 +9k0VfPh8VxADb6tNnHtywSa8wlzoTTxoccQvtEoRd/3N4idnv/ 3T1LdSWEK9y2uQcoQREAbW2CqwUXzBZWPQXbET2ciX7PXNlCzfAVypacBpg1EHrDr7ulVwz5uJ9zxltZ iyC1GrniIgqKf0vY0j2P8Z8fsvrx8yWIkgsblqzcOMX2jQUqI0S0J /AAh8e2+gYlmDoM2qMilkTKNVNxCk6kloI4wreO6/R3KFs9NU3uWXXpNP4UvM8b6E+ q5i0mdKIStkfcoeSm0JDJgEEguLpagdLj4s0kpX+uogWEy7Nfk/ 48PXxla7F835LhV9vD7mlnRZxyQFtslOthp5D7OapyZB4aXoDuqCYiTyjMlRbFesmNEShnMoiEgNnvku hChbxwivnO2YtoPsT3R7E3bgNPqadZKC8bdQJ8t9yPVyO5DiHOlqyZ0ksLWNdrCeT5TfScljQHCtozRx SfZXwE6lW5wCbPeDOoAMm5eDivVB4WokH697AGEGfOatJkL2rxVpAP /VgaPkd0o9wp5XZ1LiEeMTa/c2VVCXsQiFV2NSwQeSEgPGrx7fAatf2CK0/ aiDlwwtWLJAjp4NqKIpNr51weT8Lm86V6oaWMYlPxQaV8Wh6WOPXFUz7GO3zajN4q342umGvoU9t5S/ XeY0lHEhWUMRtb/VdQey/s3SjOBjYcNq1cXylm6wNSsMcd1uhFXW2iljpKzC0q+HnxH+ Q9h0RCtT51aiwOkr1UypSlVARMt3ZdjtYyoavw1jmqz1Mz6UAJ5NrKph3VqFrwZz54J87th55gvtpbR0 hkuCbsnYspuA5pRE6OsgQ4JsDMK0Em5ccYZpsZx9vcOmrfd9DYcb543YjIo9sdoH0adUNOhVZzVSluLN mBz190RdxlcsGqswvNK9Zit0 +Hco78fZuB33UgDlZj2dn664m6tq0h8rRDRsLHxH7+ mdZ0oodX85So47kJifxTTWBuA735bFaubmyV9gWPWqewO0V+ stvFLfswcoDfnSQUKuSVW0jEBR6KCsrDFN2xr0rlb/ aXO2SueVwvmBUqPOTH3fIPz9XiyobKBNbS2gYnLM3ngK08SVKbulcvCGPojvhiJqJoXxjTm79aC5Pa+ E2UxW+ Ojof7ZJhgNWF0BUbW3lYbpNmwXhnSUQnj8Icsmn503NmfsqhyugRdCus9avwMX3rzs6siOhL1rzHhYak IiMUJ7kkAUbju8ZAtFGsdVjmrp9ah43nXv6fIn5i2sCfTMjUYhYXGnk1xAXzYNH1OtmdsqpI2yrWmhc3 yNbGWyJz3kSMIRV0mAXRifebQJROnRfB5qOLTZZSpLJGLHssZD4 h0z7fxgQd3UVeRFYXdsztFdu4DWMpyBYxggPGj5tZVSlq9MqxjYSkw7Bca6EiVDs022bDmWFqCKw3ePY 72KSz2 /9fmL8xqsTYQhCrdkYgb6Ske4pt2JhiOawfs6ChXZryk6s/GmU7TySP1s9uaLHOY7+k6nq+ czRpkJoXiEd95Tp0FhYkCqLzIKH1+MDFfM7V5M4RLh5yKlo+7TXz+ 43i035BWpWlSdtybl0FYOakayxDJ34Ty8hhscyU7GBG6j2Z2CJ9D6C1kaH+y/ cop6wAxi0tbLvW2SEYTNecvTmve1aIByVbDrrirIPrZHHGK7kuG7eDItEtNXSjVHnWzmMoputjH+ GFONZZw7wRA7oO1klRbSzC1e3a+5TdRN9oMpmaqEX0uMKO4kxYXTqjdqNQYWk4OMKRfdcML/ VUtO5WBE4sEKD7zbJ6HjaqlvUdNaxWjXz08jZv6Qsqrxut6Qew3zDoeSBEOUE4y6LLecGNVqI5y8L2DE 59V52ziBAie3epUtqaT434cubtfNtzfjfC4dkKzfoWY0yDevnrpVhzcHjoKAISLi8xVK0C7lpaQJWPeR I7drGkoGG2CxbwhZvXwgw wuyPYKHMhQA3yDUEwJNfa0viskXsEOkIkNTb6utzfg+LURN7Kd4APjbhc3l5pSp9r7+ 7b76TVTlWDX2DVgxcquKv8Y2CUxXo9sMCoQlM6uzp2th56jt6w7cTrA2yMs9UiaS+/ xUJW6x0sL15buYeLNDcZ2mIQsM944uE4K98Mk1e0SjQ1xdx1t534TBmr+ r69JeviquoYcqEgAivKhpwPB8W1DcGPxvUqPevA4MTQZEmFUJSzMWweP0Vyrl7FseGg4PzyYADiQRlVB S6Dng16zeAgIdWh636 /gETZX4eewcWrjo3TCKxXz8qMiqQiboV0yycup0URxcK4ZNPzgdDKXiNU332fqFxOO2n/ cJjb6v5FeDArP4WflSKlHHCMYXlITnY4jOXqvSy2DQN79k0GoXQ41129p+mgV9B10/ q91FdtkpFwdbQpykBS+HkALsBz6CReTzKvq2MSVt6bpGq7RFCFb2/ TCka07UkxY4wYRhyPOZfmtdO9dswvwn375XGreX6TWvaX3vELQ7pmr1wXN4u9EhV/CZ1nNXnV2PY/ wD17T/ Bn8UgCfCzBvkid6yBjd1VK5tbhlOyKSEmexCUKMXqqtJZIFCa2bTrNl9pe8VqeiAk5efaExaemp12xfW eMfZnNpfWN / oTv5YmEY4j1doMRKGVmzJI7uh9FAMKsboD0SSmzIviohtR0XjKMHj88pWH0FqIk3f2ohP4c0TRVaLOAb jPhZUbZJ7xKkBuIze4PfvE +OLcM84nEmOpuYK0PtvtE3c7ETKzTZG+ iixhKeBggcDa3usM8jIOtopVA22kYyBEwTIPwL1w5acS1fdXcfwIaWaX2e4i0bmqi/ r192T8Ie27I300Ol6kB98uN+z3s9e/rWT6JcPzy0wU816UiNm+ iCzczASty2pScvZAMTcnMmkAtUKjZ6qG4cMjv7qGzp6DildqhOH+ 10JvLKjJ8xlCpOAnreHJhoDj8kLA8zGNcwKdfjVp2GqkJeTWOoQK1bHsOS2yhFWtUDzsTtgsJToUwNrT 8sD69abxzz8RhhDxmT7sWxXnk2TCGxpeiLaBtpTBE5yDRpKiu4wKMHGlo1fq01C47dF2XWEfggUgL7MM vQup1L46Qx5p7rfbmP6LfI2s8f15h91lL5hzb6jEmBy7 /eEtBt7yM6h6pFsn5q9H8tcqhBZOXopHefiTt6v3YVfCTvLjK4raWK3TNiv/ 0W2xkoqD2duxfzsAOaJHvHE3xkRRJ4JjYhMtS1lMdzyrV8OKolVpv0alagiu7ze5heaU9yavtISTNLm4 ubOhloT4mrqajYMLnfmXHcBXUK2IBtloqaiWx6W7RSwims0lS7X7bpzS1gDiJA2lF0odsBuZIQ3QWjGT UhyczwPYyoWSstEwzRej75wq IPTuaJiLfLsF2WfojFGagY0ht1aBtCzFg8E5m+P5DgKG1cZCNXabzzQ0nYk6u0ol1HK/ABPrM7/ 5NVRQv9NiXOF9Uuwi7/ jh69r2NF8x7EUt5zcxnrwBrgzSiaeV4C2W5Cu8Of74yPbKUptJR3LWAPHEIOKOo1MgRp3vzLkvz57phQ R / XUm1N1Uo15sQ0KulbEkXbTizRdHNRFYItEWUepsEJowETPvmhNzSRO3a1X2fKbYADvHm16HLTN3xDcem xvFOjGJm +nHJBlBdTKrePgp7yhLKxN+oexziXMSm4sxM897gqe3g98+pwpQjKeto+ 41qkkc9h0lw2v5qa2KcN9dD0aPzkdseafuqDufeQM4XHDixzhspLkU55HLX5JRd9v4685S1snxOygVA6 9LSTW2EZdgUgwnPZl /lA3BBbk+ k1LdG82QRohy9wRaWWnBtwOvYKcstODrzFKISLo5Br3VoXCndwX6jDpyRZiaqbTSHqzWwCzU1OeqORSj 3ZGy +vDbqonbm5RTITcvKxk0CY35p+ lomHH84LMqhu1E3KNDfN8jJAh9IlV1qpL3tE6iwULFYqvUhu870auKmLDDtNUBrPvIBxC8l1vml66nsj aphKfwUJuDZFqexKG2JqXBJESeHgQHxKK2Ylc4CXzAlQuD9NZPteCLPgOycnVce6OQqYcWh /rvTlToVto1gA35aG4IXpd6+XCQgPhOd5IofGCFmHsyIEMwYjAEGVq5/zrD+8pIvn3QmKvtI5syc2o0M +c4YkIQYy0nC7E232+t2+nyvho7kyUnHOMHURFDodoAy4iJDZplN5UeXOitYYFQaSM73vrytB0l/ WNYhZWGz6Kp+ ijLNYly39zWoivRGESnyL2VjK4p78furInNVTEstFMMkotqWfSrEsWBMxibKpMGJ7YCAhooLyKaVws9C nYSIcavv6jjCx0dY3ctye3OUxNgAeeMXdA0VoHYBpHBgHX /gUh1ErH78YnU39XPvEjuvfmm2EOR3CqplYCqatda68hSkhaTLyq58ww/e7L5eLJvzZudzfkMoO4a5+ 3CzTMZzp1AFU7w1k3wKxdqZKBZlWE12YHHAfmTCQcrdHMlWpqO8nBvVQvPRG26d9BCT1S8Ij2FZ9sdEI FQCbgBA4QwckcyyLPUxqRS6rnFsTk0M +14o6WkU7qqYZ609iEmT+ 75O0O4GGsbdXjGJWZtAbnq6dNLR8kgCOd3FnuA2AHCVETxASHBTG5QdWHA7fFFVVJfC3iComacwhjgNX NBnMqVgp4bpwna79 +V7C0k2zlxhju7pm2okMWRNJEc2Da0823jK9+k1wqWm8Fq+ FpNdWOHfE1bPYvCxOcI0xYgvKrRQKkASC6AESbn8XmGaaQnDKHHXDHLbesPlVD+ z5ijSpa7BxzQ0r7g48y1XpnUT0nBJTMepDRerRbaAaAEbIOkKUuJMPxW9prIy74BgWtBkL7QyrsqodQu wfzvlphK3sTMP0dtqmVX6sKzED42yHvynhGDvATD8tyo +qi8ciotWhAuwEyWOLmzL83cJwsRVtDuhg0mklSaljJro+ p3cg9QEOFJtTf5KlPWx6T5j0uvyDjmx5hRpE/dJyyR9uzxTrKj2lLIzXGcwBQB6huu1+ tfG6TrvQP6pajK0J430it+E2aVdEuVcXHHnSXEjlEpgHt/jhaVDCrJ1izuTfOy41egItjW9+ 0qDnQwGPLSvy2dK0kP6ztsCQAxnli9iUnKqqPifzsUFshtm0daNp1Uz1wDZ1suzpmx1NmJsky3NKv1yB uEj8sKNEgZVTEqvIDmKDFDLFXgdN2PZzywmNPABkbsRFDJXMfi6hE3A6xk8xPzSb /Q06qmIQvPNJNRY45wO0295477Muq9x6/4c8+HHHaKMx5plBHg0nKov1Wt+ EK6ceJ1wm5zMJZY5xYnIwNazyvamJuh5+ g9Z7fsgpSKBWeiYhkNjALzywOmLEz0CaYV9dMBV3FXV4bQvQC3wfzNOvXMT4rB7D6akLpZpY3Jc0fE0r giL8YKUH4z6xyJGiP1g7iD +YCJ4Yg/oRmLqt660ACz8KHzXGTnOzKUnGVstsCG9Mh+ SCh7ni6iuakM4vPSn3VnOB7k9yGtm4X9FjIpnB0Zc2VQu2quTssTyMi9eXCMJoLbzrw0/AA+2+l/ nCFohQHVabKV2ucPrDI2RNct79qwl65oylYvifV3hvZWtc/cRSKomvJk+ 9urOFk9S3ifjxzMxiCOaadlURAjlMG3iw3L4LNKUUx8yroDlZYjvRe2Qz8wGiKGOGEQkSXVrykfRxvPs n4kQo0XaLtEhumro3cRgRowzBQQhF89wIK9DFQWSUOnawOWQwyh0digmyOrEAvZS0 /RPwb30kf8yWDib8PpID7Uhz3e5cWqQn2Mr/tLQQQ+ CgTKq8oH0DDUGgHUDyi3Cx4uicul9zwUWIs0bICTXx2nq3wsFusyGyfkTR3lV0J5LvZ02GjbBisejJJc Ruzb7n8xgnt2EvfNOSIX4EZF0Hc19yJo0t9x3RE4bEvNpEy41MWQWfttUn5hWR23SJEf7ktE8TfUsfs4 UzW +nKI7SK+ 5FDc6mcwZSF1hvhGBaG1z6gU3ZNBGTR2Wv7uwtInkWLXpaQap9cbAlxnqNAo66NSxri8ffELSQnM75w/ Z+wfBqkYFQn6xPCmDCXkMowF2pEVbvsmOQ1yFao6UeOJG2/YyrraVf52LIEC0nf++ 6f70VH77LF1P1OcP1n0U3pgZk0Af3IN8o5/ MtyMPjeAayXz0gPNDfTehW8yIIJS4YWzNXgg7tUu9hBujv3viJ3l7keox1lzr0Pm3vcamVNQ4bzzywid YNYITV6VSJBKjOzRYaTKbR3dxlGmYViBVvlIjx60yNbKDKUZLCZju5XMsxoNiMRrDdJz6Vh15Lgzhjzh PL8jk8vjAA4xxsEGzqNnAEkPzaZNVSTgYdC6Ot0Oekhy9u / xCzvx0vDJbn5is0D1xMm4tE0IZq4OQLeTmsGDrQSXsxjlUPjiCo8NXPIZPoLGUErYEiCy3xmUlJW3HQQ WJzwjXj8wGCiKNFVkJTGdnCjUs +NcrO2RxLz7lzYX9XPhpL/si+mnv5zeUiz2r5JAFYGLvv0eYqzNBORpvnRwEeS3R2J+ G2bPLvr8k05yW7vsdK2AkxiLRjFGCm19zKfjVEn/vgM8roGNXxF2YdHINza/K3R4FLtGg8/n/w+9r9/ K91GSIrrCb3365sfzI446d+ zjdfyxUqZfxtyqn8FBHTfm1PuJJ4OSmgghyo000yNMXFLKofbzRsr3sn9h1hwRIyIRWinrmrYxZ6gniV yqPs + pYEpW4ZEfGXRZzMjb2s0mcC7nPhtMZx4z74zqxrVl5GBsROSMHvMSKJP2Gip9cZJMuwB0zOxdrXHvVEQ Ho4Ym /3QwO+1NcSKBYWTCKKF1DCCj6q+6u1eiWksOUiV9jy113C7omb42/E+ hrLuxvAsCkwwk5en7Vaber4PJo92PtqbDXCnANaUMNfqp9sFTELjK1EPVSXrub6lnNvi2gtSRHkj6dxq bHu9LltOjXAjEmTN4YHrGGF5pOUNayxfby49AoMWgUBJ4monO5D9eqkg8G9lkY75eOEWPYQbiicVKXAh u9eh7D4wzIGFevvJDNOzNnbxGDBvCofwUZbqZFVSzPPTdB9yUcLAndv /HpvMp7GIGprC9wLTE8Qgt/fp87+ LIqtqdaWKPatGcWsGnl9XT0iZ4IGilF3jJFiS0TSHSrdtcxO7stgudB7thdjEmYXX4yIXhR9AJd3UqAp nHNL7YBzuiweYfnmLziIaXrYIkB32j8N +UeiDNaHqzglNICAERqa880tPECQWtFcJslwJTuwt7qrGPzfODVEYhsmbG/ K7dAzIqkiZerAIwmdKnvzecikVq4aTxh82Y+ jpxaY6LS2myV87gLmff29LKg14yUwu8T3y3WBYkaTCDMnxf6C6gU3Y73tWjsc3lNbJCmMx9WATOneTCE nGM8hxmkq6CBmrgL4B / IxEtzp3IdC6GTDnYjHvuBShs50rfCdAaFKUiuleDravSWDBJWauteeVXDazOLqiLDOOSMRzcGsFiC0vm mVG3pWkYC +wIeKoWL2ndO1FZucJAG8GOGWxMhuBrLsos0ihSIjfHIwcDAoGSr29XMSl02p+jfp2/ 7T5PCINIyk8GeW1Ekqh599QEhYh261IhswsHLeGtNYGa5zysgcHzmADy29UKjRQEbVAz6PctKZ/ NZtbyvLpQ2V7JXv+ LIkblIQOk53zydLSWr42FtShu0vu61zGQ1yDGLIniX7ujVbWgpcpgF45eYsShCtLmmfz+ AbCU5igDXstn7mpk2dVVlkzoPgt67pQ5wgVw40ZJeO3phxlZzcLzNwfoif+ 70aJ6u95d7HmX4uR3TGUAxRIaw8bxAg57x9bu79rQuYceY8fJVPQ3rS8lRCgNY2WzLlKsYuwJhtDtaRC yOHTweyBk7ZbwxY8wQGuNonSCGoKyWjFtsTRAPJhS5I2VTuVnulkxU6APRQu53KmjZvQ4Ml6Db7xkXbA P9fTsuhzaeCQfMsIUZXJgE3CMISCSnykxoFptB0khvF09tN yLVCwbFQCCLvitjjJpjXDgZyeJeaueKqmcoTzo5MI/ D8PV9vLwebxfXicfzJIZb8gHlX45739sMPyy9nv3WOUa5kWxDpwgQPeduxF0J7Zx8ymvNKoRB3aK5szi 9Ifz3FcKHl4IGbjwzIU + Qt9eQsRjyj3xDRn6zMAMmijOH5zL5uPGWwhvdcLdKcTsBmcNIU3j6M1hHMAVxpxv5No1n7M8hPymrGGC CUrWXcNZDpDN6GMiTGM71paRyAC11Xmk20cD6 +UcVYNQ9bV96ledPU2l2Nt+ 54NwKuECIGaJdXADBKlqAEZPUXirygUXD4C5DBxtFtiHVojq0hoc7pCBlKkMnwLZdqBRaYIOZQJwhy5F gdonFC66WCfziyZPiIBeUZ2AofdnpzSJwbwi7xOTwuQ0Ej17qp2bYqdiKhQCqFGlarFi41XENGWDqyQU WnVgMvn0YTw +et9b/nqi8E79emw8iz0s2Gb+ 00s9iY3jh20Fpu7Gqch7I9dhvp5cfLZ07i0TkMFM8sOOmTeLeiniMgR6UaYWTmk078rhLSuSz5eVsA1j ciZrYIFlR7LKMHp9uhe2giH1HMNLypEmEljeG75gNqXZZ2bdND54HMg9GRifcFzExRuMwiSZiVGy /zhjiZbwDxGqF1RURcK5bXp3aHGci0J3ouno7wuIJHFWZvUqEMqvJ4ihS9+ b0ZpH9jyplU5R9nN0qQ09b3as+ lazYOKlZfE3KDleqKI4OZmaKaBn5I5edytYUBsIAjET7Fp3LyILvWbN3NPGk3IODOknM2+ Z3PluXTHHqijG5iOgNle45fxNdb68cqeAaKchNt1Y1T34u6vRjzDGPPyxsnoEXmFXlWewnWYS8hB8tDo 9ZWVUq0zoWCioiMDa7CppapdoJkvqrsWmkrSxWaS /NQA67vuoBmaVKTGa7v8m9p01/oV5L+ 8s8EcuDLpN1qR3Y3rSiuQRMEKh3lo3eFRnONEBAaEstc3aoNz5iy16sVAlwpMRXo4fqywDMndmkhOOwT 4rfEU6AgWPdUsNTgfSSwUsJhSfGCwLFnl5P8uTEJEQ6ZqgCuCqSVkzhqfYXhLuZj5fxRTzKlUFMwWyJa AFL6EZZcFkg1gZhxFKrvCoaNX0EhieS/ WChup2ZXNjG0gWMFjiu5dP68leNkzeMbzYakTIKuGrKNJrXCHYEAWFtrknn5THAkMkbU9sui8e2QQlTv 69ZrFGL0cEiJbcsweDZ7Y1POdEq8Zscki81pLZ8ORaZAA3xNogWOy1nByXiuBM4MGhMLoNbSVQGvfhMx 7Yo6nzRS ljVMscalNZcxEQRqaiRFPUe2BMDCR79LOCvc9ipGzKCDDwbfUHiwouNrWiv/ G0QQ6lcx7Gz2p5MWEpHW6nbZDsmuUT2Zx7319mYJOG3CqUIrnveG68vOcF+KcpCXgMlKcriCD4xw+ JFJzPOSk8M44h0hj2oNU2K9t2cH8alFGYGW3p4MP4keGRgbqYzXzv3T5MG8tCyaTX5ZZTJ1ZIydspqkZ 9sJDqcIOVnijf5sCaUumfjnssfgNq3v1E2mRdZrNlTaJNuEHwH9fjrW4BoaHHR3KEDJqMIQd +uTD9bq50e73EsH6lYds6BQH3ZYx1KSJXWq9OXPwamL7bomolXA+pEibiXG5VZOUdwEMPt+jw+ lPh2HKTbV4ntwtxawt6z7PbdBLK5sjd8T+BhREeqq3gLKnMF0OluAjSipZcUe5qOrW4su9zgpy13QW/ w7/hTUKTcsjmIbY6RDY5Y4yII/IOdvrG1lSTsILT8jxZmo9gt9Tz1E4N2DCR95ntKvcSA+ K0h2UV9Xpefk0rwiY3mj+OwWEuAdq2Br95kLMtTczBHSksj4VR7vz8ysHd5KMyl02V7R2x38/Jhh/ MH0o1gDeokXzlqy8IfYhGMak4hlBzGRKWAfsFZLYO9x+ 3mLQTpAtgkyELroIYDc8TAcAGB90eFW8GJTNqQXtsRoamJZ+Oo7QdhmCZtKQ43/ CAg6DvfDI7eCzYSN99WU/ hHbOlUQuGf5Yd3SupVA75m45SKYDv7uyaUFV6lvkG21ZsAlUv4WCEEOELV2AqVHs7qB1o2kTorgAW9ul sN3BusP3HJpTVXPhHsf6r5b8eb1Q9cSMKMv87fVQ9D7cZKdH9WX3XwK2A13RGHnM3m00OFRzYQQpXV1c B4NNCBZmythucCCagZXrw +a++ Cejhv1Jf9FZmwjybiK9x9LytA7griyJFldnASA8Edgyjg2amYxevW2WuPq8IxVvw17VYTBdg5UkuuPhV aV8HullZJ /Eul+LfEEN/pp9692stmclg7Vt2vG+ d1rsrbAASoM4iHosrsgIx7IiugD5PqLN2I653DHM4ebOU2dzKCaK90KvUKDD0ZzJClXgyPlabjSLWZjE y + EuD10YGajtwatrJ0bTS8V0SqQo5kSY5ykqb4SwX023bWvnAIq8U4UeOEXsHNz6ZMjKdMMmLrnO5xn4ao 8tzAEHBrnmBtSxcB22kX528bE40JH4sNvg5lqKDKEy +WPb3yCzhTyt28kCriVDzAgk+XtA9OnD/ RijHQnVbBOac53vLYOGmjFcT64PlU6ejTKGGuFmH2TKpmwEaYEClPC56VoNLGmw0y82cAdtTrxNLV5YY LYLjbZDV4y7P93d00FZ0DTCAJcYFp0PUuMcjNwcqCen0PhGLuHAy1mnQMdB5If5dIA5P9fh1baE8JrEF 749SwO4B +ukTZ4Lg0geRyQ6GYNpwofWocrr5m106V3wIaF2+v/GZSe2rs2JpzXKK7c4MrJU7S2F+ L90ysDz4RynJnnVqYKT3WTWyN6+jRpmJaoNM5BPOKl8ZzlvnDtY3GazXLn+ 0dXaoQpSZ8wTnuwbAJ8zqhdz0Lqu8NPfMgMMafuJEiWNEuAlynx0+VMcvaZB9rqd/W/a41MicW/ SMZKlsKMYcaGLjzeKNn9co0fyWqsrcYWL8zhGXQJEfPuVKnNxr7IoVXUGbMlLrP+ w9YO38QLXT73Wy78bXTIlDyQQRdUbE2c2XX5OTrd+eWKSeJ8ESe9z+POqistpWqK8keqTz/ MJorhRXhzN0pHGlclJVobneufr+bVJ+e6+WvQ+cIbe9N/ XrcMJ6RUzQojFKEGoJ7ayk5nLGD5GmFjRBU1ESI8kbzDTQIZHOw7H+XVtW1a/rEQ9zPYg0sNB+5a81G+ 5R2uve8mi8e2652ehedKb90yWI0/dbjZy8LzQ53xmpt3o1nd0y9gIBk8y/ KiI0Y4eFxxixpgZfW3g6Shiw8EfeTThe5r+ny6Ovh/ kqob5b2wT3i4GrIT7uov7g0zLgMHh6yg7OHj1I2/ SEcQHFrARKXUV2C18T17VMLeNovHpcCBTN4i2RW0sPvkSivHp0W7nZhYplMA9vCJAbxZTRsAcbFXp54u w7lOWLxMKG7fztg +sjN1vX2Elufc9BKaflF2zbJoX8/ uEQLu7uvk9w6Zai2mlGuzvBqXLFurabTijJxF6ySNI3XXL2vjVPaL0smFi+fdS+ lI64wKBVCQbHP7fM8HQgY3GE8d5ye2Iax9ja3Ykx9pBCclrWLRgaOKXgZnYP5vu+ 8MJ6A343OhQ3I59tZSdWa5OK2oDiWCEwolVvt7bFvz3NyK8U4COIeRE1VkobqAKoiKgoxeweiVduCnjv 898pedeNSFZo1wk3I0g6htWoseT9lHYA1X30mMmIZKYNhVJWIuUKmgk4yrs / dO9ksip7igmaC1bJRc5xerGUnY8nDvolylVmKzilB1jAkm9alBtDe8krZmvZXaqzYD0Kwg2kMLLW9SwW ljqITqSCsLsVREdlu7YzGEsmGYq65Fif6O45M / Zxwrd7rUpOskOtODn7zEAKCMhQMJvS4js4Thl5NcnZTXjlN8RwCarJ79jz9aSkSTITrpeHiXmu0UDsls WKaJ /QlZtJQooLO4t5SQR/LBQkY6exb9Arhc95QFb90p6pXd+BujW+ncQw3PoB7BVrIFZ/8Aha/xS+Neg+ KbXexq7k4lMNf5qiQnFjWKq3OZom0lbB1OrVz6FheTHs212SBlLCuQjmoetu53577X/wDC+ny+ BlPb6cDcmnsmpZOfSHnDuxjwdtqoPfIJHoQtdUD7smfM3Oj8fyM74bv5ad2b5zyRzSKigTtGicc6upfC svKwdkgQV2HhBnsHqJHn4fqH9wTWpuHQQMlyLsDvRWuGAkypEkoLD3txf6qTXakVRG /ibpOg+ZEuqME3vz+DmhfB/dQOj3garWb/XURggtuavfG1s6kQECEyzxD5MRlIPa7jTs/ zcM38D7uy3vdvuasaGRtxl0x7+hghiUHODk3u31xpLoE0hvvH/rD6qjmSQ6lF6NxwTAzQ+ gvr4lw246Nz1UTGkKixqDrKdnYiOHj9niMZuKfJLO4VdTmhw1XS1e3HD8XbIgHphGfQ4Ig8NLYZtw4Gz spWKipI8GweQVBckNNvof78Tw3a1wZDsXKtFYwfibHLKmduZtCvUQVSEonxwlUE +f1Dw/qScJ9k2jZYEqvete4tyQMbcGc0R3F6q8Wewgn8VhbkLl3e26Q55M3VUjPnfKVMfrs/ fvpFq4ACmI6qtMizsBWZ/ Mpvrfw3i9g4iWtLzkMmTPK9xCSr6H7c5rX88TW0jvQzKmWSm9PimgXGg8pl8QmbkyhUfOp6Mcpd7M9Tu URLbgIZikjB88PKi9jBKRBNVD1kZz8CxFG04qnqbRKvS52Wrm8AxRqh545qEGkr5cW2jGtBLeb3s57Hp iblYwZd7rc4asy /KeWxyeKKm0aiY1Avq0nkZMNkOAvxrWHrAil9hIrpd/YXxq+L9chgW58mxSsF+H3wc8E+L/ aXxjjkGIL2C+RVY3h1I+Nix4eQr/kKt4hcfF/+N+v9RmklIHupd9CuI/g+28E+XquOQa9D+Cf26nxP+ WlYxhmF8aqdeCqcfmgz2eZ+qdJied7EQQRk6+DPiXX/LBc94HSI+aor7o4NbN2Y76q/FLW9P/4S7UrD+ 9pVnfwGeQvzP9g1p/ZiFLCH4qfvpg21pkuW/jGYMd0d+NujXvwk+M/iX4A/DawaoyrvFz4i/tGsws9ha /UraijR6g5Psf3SkMR4G3jzXl2j8Oiss/uC069Cmro643nKn+qViIvZs4yspm5rk7GIVKq+5FepQx1Nl +IE8IrxnfxSir6UqooAbKltZs7K+y1VOqMy9/ 83cpqmWhWsPGlRlHeYtD1vm4EjdTIq65OGCkM2GwWS9R5RRCPCxJeRo4bsx8hM5iDwWPDHlTRobASxpN J9ubzZ +itATMuAYzeuD2Kr4HLaBzM6fPrI4dqRTN9wR87gmqgAwZViGlz3qMLSUadp+Nvjv+ 1v6XIqEjnsc24blSZ9QH/s6KGQC1H7H1Mhnm8Sw6iixFtxrrw0/ rvEsM9pVUArgQ2e1uyGsUtg976ivwjxt1MN3i65gYovhwlILzoI80xQd8GTCiZS1Vhs5xtSg4uWcO+ eQypVA5lH97ooUAKyHuAnc3Es2V7w1CkMQ3OG9QACvJLdQKdZPw28p6YbTl972GPTi3RAbFkqGHs0ykz gjKZZSYMThUW4Kg /m/umagbiHhCb6VxM0bhpZl1lTWLZ+LV8gUFJs0T1glgSO6d9lGkO4UwMOCAW44L05Hdh5+ 4iGi7baLiojieHfKx05QWOnEhIMxb0d9eeS3L4ufii3iQdnwW8/SZ/wTm/ nErdDx0A7hu0QvD2P7PFAWxWBg+Eb/wZUnzi7wW0wyjT1+ F0ISXjaurrAK83tiR0vRfapgzkcpqDkV6MEfzY+iu2wUOwx9EzmxrDNg979g7//AIl+tTNpkNreXd/ LI8ru0rOUDY2ClHOp+qQx8KYCbSK1fsFm6XFG8PB/wM/3OfsTX28+Vwaq9SotZQk2Mkui9tYaHl/ MTweIJr+J1hRFfI39Q+sp8lISPDmj8XlqdxhEy95x3731j/C/ 5B0DYi9e6g7kC7AohCZXNbVm5r8bI2Fli4the5etBLdlarbcV3qhD6cLkKZi9zgsE17sX1UVshEfpcFp GleF0H6qemFpIrmjQkt5bSWfmNrs8FOtf0 + z9NsIKZvmTv7n6IE7gt5xegU4vIjWbwHGREgLJdnr21LF7B9yWC3yjmwb4hwusyIBDG7ge6jt6yCsxn2 QQ7ex7hImqXgAcG8oAo6lQ6njjGxnSM2x9ojB6Za +EfFmn+ZrVf1bl651qF15b8bHF6JSCrxIFHxFeXstg73CJLBKqwcilTn8yYa3CdOLEqvhvh2T0/A+ PJE1U8sNt+ZHFv1BjEUK0wm1bi04sXjhDoeWKm4iJHYyvzs8k/s+ 16xJ9GJV5A9sIdhkTJC1c5z6xB1b0KFf0RzI5dL5BD/OMfys1wuhKsEzj8n7Z9xz6bRo89p7Inlt1r+ dB4xQBlKDFhWrmqpeS5y5pG73qu1x3UtKtHWAsZTI1ThGeB+b529bxsPsov+ anXr2XSzTl4iiPCT71NvsteP2bVGexe15XiSeikGt+N/hRoXjDXdP+K+lnKtcmLtCfd0CzFjgHT+ kBPun9GsaFpueyejpJCjYq8obNU6lpebrQQIl9IgUHSl23G2kEAQU2HwqVcr4xi5Gxf6IdfRQtlmG85c Sl20WOiGh5k /FttGnnrpEClJweScXvFqz67624B5X/KVSjPUc18hu0vCtvCc8f2U/ 4maKlwwLq9z90vPyEuDCG4cuqrK5mp0DB3yZTRoD8bgoCJBHTx+qFFOghUvKbAr4j82SL4Zos4zW/ nij15knm5kxFVtRhC95N5FkoGxqbOC4bUMQ21IvdsN0ZuLWyelB3XsoHidZTl04sTrG4ktA3bPleze/ xPRy/ZOrnxJsXwhUHIuUvbbcTRXf8rO+d0Mxd9P5hbqNU2aQ8p8McFmVz7XdVy+ILG+ 1OMNCw3ks6T66fLHkbJtb5Mt+jF208h4PX2i/A2CXDADyh3tZELD4cD5zu4J9UetbPg22fft+ KkTWSFP156FhxFilwtzrbKWyA2IkqtBdn+/e8+f4SwameuzEdbaAwel+ wpCkpmMNxibjCkAf8jcrGyuYKUWOUKhz49Dbh/Ohot3SjR7ymkjCe+BZCb0e0k3+ WZN5OS8AEnDfsP5q0k3iEs4dUM8YeEt7J5Dvk9v0CPFE0gsMb3Sn+KGF7sQJpi6DGqy99ANOQnXN+ h8oBMBizepiVtnYW4vE4bu+3A2vNLYCg9ko4vDDzrTP5LAbIh6VU+Te99/ xsh8NXdqhadnVWt8xnkrsnc4IDQSUneQu1BsWxmBOYp6g4to+IcGIkf5ri2fMyfw9bgO7C5UiAfdmFEq +q3g5qwjGMwVn3kPQguedG+iGt5t46axvvnplB6SZpDa0Op9y/FPoXgu+k8FX+r4FgSqAq/ AQqChSWz6wholoqyMCkYY+ czhNB6cgoIc86JhsrDfa8dD7v3H238E40IvzQkuCiaSFxM19zedmYgbRZ5kuswb7PCTjK5N446wddnV7 a5I0lRuulbcYTrn47lUlz2Z +D9B+SZ49Udx9FuiCRB5hSYVQm7wm6eIZMdr5bwVIGlcbs1e2AwTraW1ajtX66Clg0ycSQ5tpepOq+ 8MjDT3s1Kvln35io8wB64V/sMzfQ2Hd4ZnzuWbsAu4BWTMfAnw2Neo0B1kL7xfWUsC6NSGtxiD7Z2+ wQORuirJt7bMBHnGBrZEbKOskVeKdknNpN8llV6W6NanemDu7QNfwG4JjudZyY7qqwoA5Jra2Y5V+ LpY0PC90MFXk/VqPvMwyCxrPfRPUJH6H7QVL4tf8O3NvocUpdJX0uMkTvlXV2wk7bChrpLL/a31E2dL/ F9tr2r+OX9eog1pX3t85C/9uSV2ZXnLdqz+njgUI3BwJrjpeDvY3f5gT7eLdX1tbs7KA47nd9C+Lb+ StWXj31n/ EHpZ7LDzAuPk6Kyt0Mgqi4OL7Ts257vjXxEL4N2vFwYfILYt1oSxrVVhfRImlzziK4HEVgsllOIoc8d2 46ZZP1rEpa4VAMe / P3YIdMO5k9IQyU1tKwIsjRpcmZVZDVfuK5la0kB2e3hrl1j78X9Loh2sqhqoIlM8V1wC36F6v6xcDo2u 07DYJ4cCeRgFtRrEWbufwa5X9SDOyn05XsDEo34lqHY +ZhGlm0ZfHqlT3wqVjzbGVKWXw1o8CSPuaobij2PB2L6XkaN+hOo7bcyzjKGmnb9Gg/ MqdAiZ6CpwAe8gZFwM3ta4cSgauogclpEO7jMg9eZSxBCD006eySXNCBxQ8ebqVvmpnOaoTTJ7cIf7I+ O6lhiDUd+C8TkcVMBXwI72c7qNgrINfe1tKF/ oHgzutTFTm18g32dl1q2VGQmWUTqsKH7VOZQr0i4jkSB3vg6698lGuVAgIcHa7wGyZUmV1nPQCjlQYd0 fISirr6NV00b0YKYU /QVwy6k8kv46Po9M/dpoLS8dlnJX68SPSUqJLd5uIrwRjEfx7wMAZ0SGQuMx+ 4Ge2Z5aikC68Fgqatsn7Mo4KgRfBVIHcfsH6wDx8uRGhcBOB7HcIXS4vH9Fn12RK5dbVQAoZxAWDkcTo GCKI4Ydpf6gMoJFwBJYjjDh53 / rFhgrgqQInoznKTaB4oLHd6A6tKwl0YGB4lDGfwTfiaj5WuS2QKfJR5yd7HZvc9oeo2MxagmDIp2cPyM K48dddqgNDxEkn0yhB22CVFftOk1SiZXwrOf751VOQgsFk4mhShT0e4jc1Cabbm +aNKCbjo7+5iqbwiw5a8b7Y7AQ48P3igssMJUiDQsQks5uUvNtZiMVTMWwqIES7jpIWn8twg+ 3VfrLpday27j3o9Aur2FsBAy263AvnBpD2XvALYNe8RFRZ1U1xoTd+ 3voqG0cRwWtlfolcvkQ9r0boT2o5eElimcbhkFdmMm7ljJ/GM8dN7dnikYkvBCjbEtPywM+ XR7D8UTW9ddtKKOE/j0gSOyDQ+93hFqxB9il10l4WqTc6o/L28EVzHKq6n+ N8y2To9Aol7lc4jezSkSBkybA422CY0Y9J6trvET9z1abrpUu7Pe3kIK748Q5io800JhHk85EEcLRiqd LbIawyFB3ctHps8 /oyTn8hwziiOQxI/ xjj777IxBheXCk9xogDWoKQXFuP6mfDQE2gR9b0kPbkZtXnXrCVk6vzTgHPCVZeR9lnSY+ aJRDYKBquE7665LnQEd2UKle7fvurNmeAoTedWR44kxmUJIOp0XMaBb2h2aRydT1z5FeTg/ zBeByVYp2rLc3MqLuhlSOzqk4T5cXwnxEjv3vhQw9Ppx5yETzkkLLRj3XUfGQSxHWNke0H+ AZuPHyamJazjyBSGupyQ8ggSv2LRccObv39xRoerX3oQHIqD2DBehalc3TsnAWRF6isf2xUjCy7CfN9u nazWl /O49pUsklzTpYj69baAoHS1qIC7ojVbtkQ3M6SvGkVkM9glnQICA2eVVwIif5gcv61PL8rr/ 5tXYVxeKDfTg7fsKVYSaOlBGohCaf+YWimjFnJG6+N/tr2j8C4Ewe6re/ 4yUSmFfIko65lWNVuuGlFLmiiTDMnVUBJtOSDPh85y6xDEXi5et1AFlNkeGmoo7e8vHEW35mYjpoOPrc ApqvR2hfqfmdl3KMmLbQIzWxDQAFmo5gT7uJeza /I/Hfxt+VYlKQ1e0ZuBXy+ LDmjbXHTu9vazr1BCDETxA81LgL3A4hbx6Gseit3KtgL1DNa0srzL7dceMLt1HIEByGHv9elhTOaSh0e O26fU +Kj7EJ5HZPt9DnMPUv4ym7ehQkZyxfBj6lTArR89nu92JaraW4m0Hk0URh6/ Bj63bUPNcHrMHtGJCEx9aCSP7xKAkLQa7KKaMtcIdBtC8ubA5fFgDgcaShPpoJctaebo1MMQs1N8i0Jq 1 / yNJdmKbbT2wnociTt5ae0J8vrZ8wH0haUUMArU7tVYGZ6gOIhwfrysgn4UaOa3Dvc2SWMMt4MSRqJljS xwYgilV7cLJAGKjjV0SVaFIPo9 +YK+GyK8KSwS6d80usG9s3OpFkCyb7A+ 85Z3s2Alh1l5NZs6IZ0PJm9tJku2jHF0yyFuaMZTqM5Fho9c4H7igUeBUqoli39oj+ IjdsJZb5RNpS80EFWkeHDTcPsb5po1g217haDQd4ovphWp9opmpm/BWx95OjUcccWaC+23Hn/ YTERra0b0wlQcik5PWke0eQtEL1PgHSG82Q0xybw10/LKYo/ pL3QlDmsffX4Ui4cdeLSXzKV5R3gmXsKuayEzZ4Z6lZYy6tpwNEnidsTFOG0vLoWN/ sn4T1tcxibTzlem6Z57y7axUwzE28jv17OlkCOqQSK02vBh4fcaMSSefZ/zbU6TGqv6Zto6+kdW+LR+ HaavjkvuRALrrct5IN2bkyffNLOpZ376yBaicER6AvrDxfGaK7XCeQR7TUIpuBqa4EYlAfX6hFaKVuMi Mvd36q /bR7+xIfqMGCmfOq9UGTmhyyfnGIPIXKg34gSffkmtD7oqa+dYrgKtbp5p8ZTo6wjjc5+ y9Ff8ibeDGzH1dF78sycPpAzz4R77mtKyaArFYt7iUts7wu/ 4n3EcjbFm5Du0Mdc9pVqfuwLJwvzz1hHysLHIaBLI126oVTUTIPUwSxd+5GCWH40yN/7RPg/gS1n0O6G +js2zpI5SiqnubwyMeQnkaiImQIvDp/ U3DEmzZ4aOSPMBbgUaAUdzGoxn6s7oxWs57I8Le5VwzYA8H6tT0y4i3TVZ5piem5g3vBZlXn66KTWJvs SrAXjbfH38Wk2kM1urMgUILWCmdRu4p5044n7s4nuHwRFDklBmS5E7YYr7szkDhrTqWaJoVD81LoLc1l KLTTTV9 /nRGzfBp9PsYOf+HW9BVFgYzfy7CoPyQMgui8CfJ2roVeHMxmJNsDxAMdv81+ DFhalulIfXFcAsjY7tWwsbYrA8XOu6pO87FUKGfd7+ 6yMBLCtXbmdAos3hdc6binbSRDnSH8ppHCiRR80vonlgaSFjNcDJ3TeaXxDrKHXYpVLE5Sb96ZAM+ hGU3JX35hjNxiwG1gvgTs7m4GHMTmro7MMakUzIZ7wnvSLT5zcBDKOfqpmlZ4XfoI98e5HTKhVKP3vhs rc +XwCnytqHr84VnpzVej66oLkkWP5A/h8ZYfraTf2mBl1P09Qo+GJQuOs7o9XO/ U1hExIkqI3CSDgTii2NVoOJ9WLN8CVcyN6J7BlGsrLiKbQvOqLcTUgiz1Ql0oGYLlXmYwEAWmXMNXSMk F7nsf4NmTXhkCysxoIzPJ4jfM6lqcAqD4Rz0QVFQqFDZd1KajnrUTsBGPu7NP5OK0T5pL8G0313 /LdfTpltvy7oumg1IbocXONOD1uQJqniiEZsHKMDxPvUPB5tWUaNXE9zn7nC/ OtA1nm12JgqdgYADSF2lBUBhFE33wr80ic14Bo67s1915/ DHotOMNS2k4cURBXK4yXATB2vsrq2jTAv9UakFLO+a6oD3E0se9/ CwFOcvVX462OaXzEheMefR1ZpsVhCNVh/HVKefoyVeTxUPW8Q2hV6LnFTPjysPykMEO+r+ OPcsomVxHSLpBKMdac95Fh81kmuqON6iwrmXP3aKwADZDjXpbzXzZDY+ uojMOXzljzEITSZkzC2BcAHz37pSJtdRGicAYMxiGFkO3g0pK9mxKwO7QfM5gob6lp4DthlAIqD6Asji ltQyX89AZ1pu +R2/ krNVMXlUgFVipuISPrsM01jvCQN7HcbWeyUcUi3jCSjxFB60SbdWdjr3Bp801BUP1SOExQddDZuoxQY0 9xSmvts9DqYKuZD +2ZIVMiyEYVpbjKXuSrwo86z/lNPrge3AKrXQ2lQblmYgDDKBp9kVWx/PP0Qu33J+ WC1uJVkiQ4lPS0kU4vwlts6bfAO6Oai8LgNqntBLqmKaTGjwUAzWxujixV2KHXkvHtSctk++ Na9k84jhUyOJTd9T4znMN7lx6F7ndEtOfsdmM2zoaTLSEEPXnOwLf5tAl4xiGtQ1JaZ5h5qy4Ux0WpV2 horv799qUocaZkMl7bHqyIxsOYjVDNT4H9Ycbwwn4aM /J20OtA38nYRoaHS2tqtRYcN1shPKrHDypgnTbQ7FRKkVHzYBuDtjmASH7m+U3Oqh8bz9u0mlxg5rph/ gfd0Z+6TjAIo97hKb+FX8CMGF6j3bksmVu8ixO8I5GPOvP6sphDshX+VOyRBxwqvIPMQhnYgM/ dhTzyxYZfgR0e8bIFj8urulwyoXZgS4GgdlfuxUzD3mLChAOUZoBbSn1HV6gWVPiFEq/ LVM1Nzen7XY6NPkpoJ1oWZ8gwuQ6HHXl8vpR4FlxjKAmZQdaXmptM6Y88WxvX99/Tob+ 9ip3BSJ2xrSUyKdGKXr6GmY9jHS6SrTSE3mZ5y9LWAxpEtEzJRe+ yKfZO85v865cRHK9CpC3AFQc2gaY9kjIkR9Lzzt7wfj1LQ1yzgmyP8ZVSLv7hYAkCFofGgD4Ghw9jSvv QWIfveNwr8uPCHSNHi2fhfqOAcPnSa /dPrVQhuNBJ0pp2fYKV92COzhCZkaPKmRxnW+ rWAJzmnLSrr6vllGLEwqQzVBHwbyAeq3Jn3uQ00J5MvX5REyW/ uXdcSM5iulKmh3gIG7TSAYB72mr6QjfWh2RNLgqYhQPOXB3sX7ruUcxnbMHckl/aRdndtdOl+ju7L+ mjRYh78Hs5AbIe6hgmmG807USgRQCjrZpx0gtoR04EWZtXR6ZlOICriXQcEQP3RRKJP2fd4NpXjBYVGf YSNmjQNVyvM8WWYIOS2gIimB9Cjjr4oSAFLwwiNgZpydYE2jdFpTgWtvV /vVPU9C58ActSp+ EgjifWRepu2KdEM2UE8KiApiDP1WeQZAAmC1HFfd4yFMDGuR6WguvOAVaudW5Uj1qa7dydMqj46vxme6 NuVpgqFyBqc4nnsCo8i94et0ffJVTAwMq03djgX5LgKyrJmAGNCynUrqMbZhjXvPKaCO9av6IylxDzZz gOnvrcoZgn3nEnVOdMUOuUECmxquZpsMYZ 9pd192yf1Ial0pCMJWyMMHI4TFxce16tRyNCDkDaaza78dBNi2tNG8QN2iJ7xVvK/ FG6uEwPkPg2fHTmlRsU1lW/kmiLNk0CM5DC+Fn0dn+gGLKwqSj1ko6l8quBz81U90/ kFYhrlPwD87gQjxUwcvFYRpy+HnK3qidDqDVbqNT9Yun+ 6ysySTlx6bcUG6NdQOOXKpfPeIpZBoVGbiKoaCkZ2u8jkDwFlRqiFTwMtCnsPNjlhldoqJ0xblj5IRBa 9bCEDOv8OckpDebsHZ1VY2Zi38xVBBboyJgOzkLyWCWmwfuReLOOutPdewjrFHJ /HY9+5h5TSdjxWc5v3/X5nsYV+bpNWp5heueq3taCi/V2ZUF/ b4zHiTY8ork7R7FlqS0ncVgzixCCVfozEfY0m8QxVwMUwsXrAz4WmNWH7Xvh6BIOeT2F6gbCK4oKITHW vqHSQapOd5VJU5HSFL1lCXVkBn2regXQ6yTn1CwiZWDvX2Wf4Y9 +8V6ZigHymzDCS2cbzTPPCI/ uTUHfZGUNxLXoCXutIXLlVlOo2mmBkkO1vVrzjL2gMa2eynjY7x5xpcP425pVPklkwDNyamKct21/ r6J1NXnEJ7rKiJlyflxkYP5O6NxavZxYKrFYAKBrp4oVCORaGsLwU7glzdao7tCOD7qEuZRMyU0pcUv5 9J9ZxhguDVKfAD / nrYDgA7UzrtVjr8bpC6ndC2mkvtsHKEROCfuyzORqguCbegDjL4RjaUFzcpahmIi4BnRohD9rxmzwsvh uz8FE7lTl +hEpFQYmwxzFTbgIJiewpxYJ7GgQQfz88i643jnN4ND47O+FRl92zwsT923/ KCD36mftSu0rOlzJtHjsdHGbyNyN7rjOFSQPqdib01b/ RV0J9Wg9xvyMpWnFWBiLOv5nIFrxh2ctUYfJQoCeo6iwfw6jtHKUZivzTKiuoHIApXMcnI2wLI3rWz9J Offoueg23 + PhUHLE1AKjsKipOOGcJ4yF8Lx2YXJMLhhZ7qbskytpswmZwHU9weM4LwrsLukgYndsqLfjRZwBI9ufgk yAvdChwvStchyqXMzYlzoYp79Gt /p66EQP4qH+SFZnmZv5enaRm0+ vfwLIYi545Wit8ek8XaQsASjXM0V5Aj5aZz4sBPhBcaoD7dWVjSsnn2K+ p0e2i2RBkH50c04ipHpXdsXBaLisS+MVaJNELRwfYA05ZaZKXjfmDFESKUtbrkjaL1rycE1Rt/ PcSliZBM+0CR0ytJGXOtQvBOiA6j0ia+Jg9bQoAgDfLPbYNSF7cLVPN2keGxNSCyYN3RTWHRe+ WxkYBCHkck/hUGfF6DNj7/V1o8A5PXy1Nl9p2c8g83Cw7wsqyigth9pbZkRXAk+ aC2uB1LEtMEhqQMT9sfpv2lOMk7oTTyrdpTbrdLgMlt+fL1zNVsstu/ qLm6bX9uml1sEas4zFCtpiWD1ngoKG1e6+ PNjQzkD6iKkSltdc6ugCqeaTHiOldg4icISlSvfoTBD6rGW9kszJpIo2I2K0puIVQeh7su4h1APspzZG mhY3NMjux5ahcNfPlEehTnkjRJNoWP +7ERz9nzFnI2qJ7/m/K77aX+ 6Wevup2htJZrzhD8U473L4EbvT0QExLOfwgDgCsgldUSHrFzq08VTFQIN92nm6wn4P51fRH3egZ8rrTO j0vitaQiWBIyA4w9MX3IbMPmmYucx05Wu0MocBI / r0mKRKdKG0DAczrISutrF6cLmCjc2LCD70sYLyizBKtiBTct2MXDWfeoDivNwTDEzJOtJTScJ6nOLlqy pOW0XSzYILI0k0sZM5T4FHGGlkcwcLdwf5ox9yHQRG1ToxMnLv91r55UajH9mBjhFIBLnH9ggTGC5ue / ZyUkfZUilgPDFhbEBzr7Tbcpqr8baJPVGlzxRGJJ6XfDbeKICWtMWrWaSFo5PBA8qSWlKtlSO7uDjNG3 rfwSuUC8W6gxR7iY6JcWln0ewxH9p8wx5dm2vFf1llikc0OkrAMtiRuyBq5Q /9UefNk3tckwaTeNdgUrYsPsquxg49msjmoW/GGrcbwE4TaCZvUuDvA6EAI7pvfpySOwQa1iNy3/ ffUGAOffELkjcZga2OMsuMeJsT8j+l+q/S/ XCKei4xuzrC451ll2UT5281I0yvMxDTZ4ORyOcXOXPoxRIxaWDnLxs9pkDJjYuHqEaW4vDOTtnmWLLqY IKnhYW3izcLDSHRzRlGKNMddDiiHjF9UABARfctI + UDylL9cg6bksUdM41A7I8YEKYESnOzHrzqmgEwRLigZivHfiaXVngnL0glLbh07zm3GkoBEZgguPcnDq IPWnF31KGueeoGVpJtzqQJvAVEgISvovH3gaqxuij52 /u9IGjvD97W7cubB+ndX0/JYXv0t6rR+ bz4M9EoblQgv4Gp8uCq9OfOVMAxWHhRyxOdM78JJ8KxwHLKZFgonYFmuWBc4HibUrYkS+ BVQjxHWwUrLHSllJ1JIKv+5bG68+Q6wszVDve4BXwC8y+ fHiJIeHnPxlzGKgoD5WCTXdUOpFC2jK43Mc1CuOJlpIL3o/P5YyzQzW3bVDSbe7dPreYuUWSb2R3rrjx /iR0rnnkZcMvQqgUEjc83+vTzVvM5+ 30d1AndDy491kCrTXTpeosEdhvoOwjlzLRaAPcfCDRYdSdnspTmsQ3Hh9sAKdQ+gELBgir+7KFEjDAv+ 5bHh9GVOU9cT1DI33uE1v1AoW7LYAPRNBfq43jiVacCDykPcOVeTkbId+cE82XI0E/ DDh6SlQ08IZwMX7hJYUAFgX8Phqm5qG6SkdMAzQ8gs8pF2t0Jplhiekh4BIAg0lb52NX9mbwvL6kd9Q9 /C/krGHZJF6X7wPY3hOnN4OucvDNkhOhXJFj4n0E9SHt/ 7vGS08Kr2vsPzUOgleaVVQfOA8Tbug4bzHUlHl49zTzMuUFtdmH862E3mXA46KuntMQS29zacAbsHvBs lHIfJfaFQggUMCZOTQPyqfsoZg6e2Q7hJxCLktR10zEvTgSIZYLG0tks2gOQTYU2x2KzmTtEavR4w90s +fsipxXYz1W/EUi1bnhRn/u6X2Xz+ aORlbF3Pr0frW4bhauBpuzmPfsYXCJKYLFaHNgW2QeXjuPMQUVrqNJIzW1BjVbMftszB2Cf9DX7NM0Kh LkaAA8WRG7OGY1Wm +/ bfxC4ge9ttA0zqcZlblsnb6X4sWNhwxgF8qas6OttaKxt6l49oJFRaJyqhDbUzTPWs6h0zbIU2ncwx7k qLwZUTeJcewoGo63PMGDPPcwuKGvww5hjn3sIvf8zrGqZ9597v + 6f7aajtOVdPaTtN17zgljd6fa69r20v87EuccLTD8kHDRIqzP6CkuMOOH3c4hi7SKaexJiwN9Mma6TyZ WVgBj6LnlVGWkEn1w0FdEXFXRIZUlT9GsWHYX9WY4mdkLIyyL +uBITNbRxW+ XYJVojPjnlPb4cyLZqV5fSSWFPMdMHqYc2wcxPVEIHibiKLVGEEuqRBip55U1GHrd7FHR4ShdveV0J6V NmR1Sau5j6625pIlYBbPHw120cczz3 /U74gDw8bI5gcZTQIHwreSMNDHCkvyOfclG8A9LHPqwQagQfA8zVgFPW97591Fs1OMn6lkCKy+ bW2CHQ0ZEB4tR6MKPROoEW5Enxld+W7iPE69uz+ qdwf8fT6rxtpWXOtcyI6eAMciYrSTFjGjLJWKyWPAOFh2nQ2LNnmZVA4SXhz/T6DP4IcaMIecfir+ zNPLXAXSNdBSUGrnhPF9jy1qj1f2v+MsrjaK9WpWEXCtf9N98Ix69mY77ibf+ SXSrX2wKFRl8g7MECpxMavp9MUfa+ 9TacwXS5wwvtp8YBDIDz58y1GFRSHCnzzcIK2kzuXngjDXtbqXjHim+pt4XonlgEPSg+ W2SzrmyNbt7xa8P5ekrZBd5wU26q/ YuGo6O722Zcezw9AcnT94DB8loOQTTrOMiTmO9g4Yal1hFwgwuZl97C+qJW2ntTE+gtXlr1e18V+ AUFrd6lJMI0v9SqAMTpFXZL3iLjzVoka0zl3naWgPe25E0RZaaHtQgSAgE0iLCBODQ431v9EfwQsuk7f MCOFshJ8P00ecf7Ohd0i73WJIQrXAYDmN8VF5sx5To4RCHjSIp0IyJf7WPLCIOiiDaH5L8mA8rMlP4rO vmqnzuOCwADOxyP yBl5jolmUF0pFaEVP4hukuyzrkBpbHUuBes2TRRbFKQpd1JHJUNq2IFva/llRHLuLFGPP/ FGUwdsvAQfqbWg9LfRWD6WIejfJtCIi83/3OHcMKDpKQ66jGKr1/ szdTwputdLMrGvB1uqwR8idhgRPIGAddXXJICyvmi4bPak08ZCSXLXviQbrqCwn8dUgZ1oOFxDTfdAev 6xOfmsfsN6wju5aLXagcL9jgvixZavQBF4mOLBD6hFQlSmmcQvSjT4AJPb4stHVEH8EUFFJUXYgc4XVN qy0vqk /wDh+t9X0+28jojHs8vG08080W5vHg5rekpV5Po19d68vYuQ71rXBJJGIZgatj9OvJwTQcePW7Wngp+ 73xWcJSPMcIzXb8cZxV7S3FbUuYnTFW2jIZDLVcKckm2rah7/ JRnXe9rEelIATY5VavlG19vCLDaMcFIejeJO03EU/thewOJPHC3wbs7ZiSIvXzzXzcAWcBUYdRDTQ9/ EcK5lEt66BsrisE7xsW7d29Ro2Ya6Z3Aq3Vgp783kuujpp258b+ 0Gwqc9w7rmAtPcSs4g9dFAYXrw2sUoNRy7zb+ kcNUTRsL0VtKBIUAjz0IwhJsFBNs8UqmNhcUPKZYveXHwTHDcKTdGGLIalL0U6U9n4AoMZngtQIjfuSO OgpumDHWMcS6fNY8nldApuMNfi7Ch7w477INrbTptZXN8NgbecqkWEC87UkqH8rGplhffh03zIgcLD53 ivIktQ6l9SpIm3zu30K6RBCncs5zCjTgVxEn5OzfV +OTisuRfl0H6W1TsdhfRNtwx7pmQRjJrWMh3fVyPBDCwnLb3gmCHrzIvGIDgZqEFQeu6pehn+ o6wcmKM5yFBKgUnu68rrKFMsLrEBVtJiTtXNbVcGYyate3LjYq6Efhl/ oB6cIKtezGIYZQzLVDEAlnuINIgmq6098kC0GAHmhvztNovYLlzhQtMPN8Ji4Cuu10C7WvG49wb9Ae2d 6sFuzSy9lk + XJUFBxWQ01KF95bSpttuio24q679RJwZvPjv4FI7rmZUTT8ecz0kBFEglbhQEUiLDxQBkDClBySiWpGB 7f6l5Ydfm3sxVJGWebk8eAqdobCBZMQQ6e6gQlcq46QB5QpRBPfPjAvQj3ghNUj2XQqjYuiK935g6bWI rhQIvoECkrUbyV3ozfFTycPQs +Db5ouZbjP3n2ceqHjPreVUsIX4UXsH9/yaGO7KMgGSeYmpvcpFc5qQzsbxrJjv+9/LZ3ula/k+ g4OyzJtmLeSC9cTIEYxnFmzspCE6e0Qz4JT4trPZtuNj9y5S3ogjDRMzM0V8cYJ6P7jnsqeyy+ r3lzLiZubZZsDyCckOnChN+CIFZcb2LkXzKc2HhL4t3Tcn1pvnLRjKLQmHyUf0nQlWuvv/AD+ m3D3LbLDXphkY9b+F/K7ygAd1q3PWz12RQSwr4MxnUp1oa+03udRvIbKGWxvjd/ JSf5keTQ8UNtDHovO8HX7y4c/ 1TbXdi3FqRpvDBkBIvHaw7xAv7zJBQ5liqfEXI71QAPEClTfXRlmqzxzuzdDciJtyYBD2TQOBSujhmqC tmuZbNLQ /OHO5RFlwXZ4SSSna8X9ItmAniB0BE+RqUWlWOfWXjkmu8XQBnJY9W/ 074u43E4A6GLG99npD1ugaOsmMUAY7vnjtxGXIIMQHwyBesC3mH0SGGUm+ PswL2d1TEFSGC1ca1JubN1MS6UwtMRKAm3dL5kG1qozofUOI37By+ fN4pQfju4i5NpHOiUPXjv5u2rHCUwzldCM7uVfKQnwu58Cgp2FDb8PH2HmsA8R3dmoqeyeDvZ/ bvB2HrAY1fmlpoSN+XzSud3DsyvtFuqEa1/CQJahQGJEPTC1GseBbAsJOb5/eutNPmmfN/ bOh3VEgpqe963xzv6UEdtAmw07b6A4FyzCA52315VuzjbktogIejsiBu9dWDlL6vJYcdzteZEROQU1Dz Kmy7sHc2hxeuw8QquEdWefya5PrrBzZ8F1TPG8 /SfxdaW6xzUsVimwZG1hWIskDVBY4tKsizWVWhtCOFlfAAMNkDRO5Z8AbXtwdDIRy74DrRvdpPVb/ m13cjEO6iSNXRpdiHrjC5f9axcMQZa4vGwwm/lIuRywsSkOfDe1YqzvMul2wAIjkU8m6/ HpR2SNUvEixYe2vNVGzMpurJQv4FKv9nfKkaVwApTaay7or4iFUZgvjypaPK1xBOlAPg/V6/ NMzP6RChz8swsDRqp2hY3VayjzEGx5X8z7CjLFzlGIdhd6dCvlKuPmVFP2rH3FkQosuVbJID1XoDcXZK Ox04khERKTWhe /MskkwH6d7B+Juan Carlos/ KA5Qqg2hwT4zEp3GQxHSV2FDfwCy1q1aT4BJyZOiW4QvXtGmnDMmAbiJd8bci2Dv8xf5hunDqxnrnue+ wz9tdcA4UTbyQ0WdQiiSwtZmmingVT2M9T/Rm2ZUvaQ+ UP7RurY6zy8fAErV8qynDiFkkYl7EHpZLvvuxrHZqLR8aYvh5OhCbifyOduIAZVkuPy0JhAW69YRqE3E kcU3ghbwl4Ed2art7e5uc6WsXwcKgTagdlLi3x4wGnli9ocjxRfbH7pHLfcExy3oq7BnW +DGldRe3to6BTQEiXQnYugA0fghDT4IsPR9KknyrW5NwWZ7joC1ky8ynEE5jz6m5Cwqh73+HM8RXac0L +L1uLx1l0n4Q0O0dGPdpQLNa/Tfo20iTxCAAKE/ZU8RhJidgcj2UE6Hq9/WUs/ tspLsSrytSzW891pdO7IbY+HVgxhsd4pHwp7387Kel5DhC3N7RfjjdkdOwbr+ sxXz6bvfEn97UEyRcS1q13G2mzOsXynpcznJQ5gMOHq8xcWyXCTfgyVKgT9/Kf4n+MdG+Fek6Lq/ rlA5Eyj1KVkqW6wp2B2hP2upabYGgvwqEUSZ66r0Gi7COLD4guFmxylFCRGXSvCNfH9tz72ziYEIdl8p 1HMqTURpm5mj1d6ofb68kO5JNHRPkUtuMGk7tHYyIqs7lYwPcL0q9OSYNT +8qhQvmwXEQaXPj1XXTzXuoGhYghhp+ GGGLsk5kXcyvYe1lxO3imHXNrh4v1gxluqEaFPBermbacUfupCT5dX/ V3cC5xmp8o6V2wD0giirXEOHMec8gV4qd3qAMBWWFA8i52EUacHxlPKzW/ Yl5cvRRhIcsf0moB3B8mjseQ8O1IkOkV0hHxcXZPBwSvWr5fqxCvN/cQsix3qCmNArnKtwz+p+ Iud8W20WW0I3U40ppGuXxgJ7QwndbIo5VL7mMVtBm9F3HiyQz6FnfKLtidrHRKpHVjzj7OuvRJmwX01Y +umj/ 1Kx3vSecufkNnAXx8XtBDQorc7t4YZxX6tswGDyI3XamiLhF2lELkDSx5qUMCsYnm2QDDciTYn3tSHHP ModYyy /C3l0YuHS7ZfsDUud+ OWjQ13pLArlRJo6gcBtJpsMSqcCikSUVBC6H5tKzL1mIHK3kyhfUiZee8gt7nkZ4gtkvN8Q24xPxEIQY LttBmF8ynBL854lgxhUXYXKTTpOvcWwRR3sC +KfOA1F4DEsabKJuBp7EEp2+rx9Y9uqQ6eDCnFF5/+ 4S3pkdCgxgpD9lGmokCgiXtgADMNC6iSTimfHEkWuPj09GtWihkyUpIzdA7cS8xI3GR8sQAuabYuDB+ 4ll80U0sn/Q4ucVfnXzsVhZiskH1RR3G8if8ihpQwFkJmYd5DJI5aR2IKNxtphkgF5R+ RIQnvSlFftfhNtpNgF1asa06s1ZXruPsPjuEvpitv1fsaVxH8F+ AElUoCRM6ifIaIA5mBzmT24RQV8CwQ9gKZIt7Ndl+bVNJ0a/ 3p5uca2hh0ujVQWjMZWiRwWuLRjUZ3hMbuAqwdNlBzOmsuQTWuThqO3+IARbsGX1ChOVV+ VlicrJdk9o7mk9mVwY1TQCb6khwI7s71Nzkz6aaOaz9/AAi+ zCtwsvl4s5AKqA5WYzaEk42ueNpaVFelwDKLSmdgqN303jZKWPh/ DwZb739oS0xjy290x03yEkOJh6fgjJcQk3W5SOwJLNCp3pK+qkw1cXlV+Qiqi3MX+Ew+ Pauv0hUDhW3iC81mC/7RPh/4m/CU49g9fKThx9v6f+Gusa/zbrxlhm5AygbVXh/ ktcaoU5j0sk6glsr1iMmqAMBzwD/ pD62I4i04XZYCNLIOGxwlWoK2O5mcmqrHeUb5wDP9I5JMubh2ilsAlPJQb+ Ww9qGzinpraI08rE5CEQ3fKse6KFAo7rfxRk9R3xcL3X5w3Q7mzay1wKl463kfMC1vtnTFBq3s+ LFHlniMeazfS4j6ZQRWMaBpwz/Fymro2122X2RUxqOCknY9A+H+ hRITueAd4nsgAVTVzRw8Btp9a2tfqqeVfsQGFT21vi3JRbyqsKDPikzWt00djQN4admko3C7Kxna/ bwMAMGwcIpZLMBV03Zdur75Eg2XhjQfNRhuwpKqV7vVTGozh7kG6l9j1pb4L81CjP8tdNzGq+ XbMlzy24s1Rn1gyUZRuZ0PkLZ7p6dG2W1SRjLW0P4EpUXyH1f6K4XR4s0bHdIl4cB6Zs+MeELf/ zk7PHF5P/sK/A6Dxl+zRN+7AyjTGYf1BXrfPyMda3dr8k02t0/YoFwzSNIo7zr3Tk+G7S/ 9PXsJtuaCeDHnpp9cnrtAkbCzZ6Huxf71q8nhGiVd83NA1G/EXh28+I12+rAanJqbdsej2qaAF1Rw2Q/ QVYbHfpuhjx5t9S+NLTwtY+HS/sJs3z4MuQ8/DzR1RVrtiIKHEACV7HEFY377N/0l4h1Rlfi+ TbWHfA8n4A872wqMYqxC6vGRf+MNd+Jvh/MeAf0bd7iD4Sw4z/ IBj8NxNGfgmd92r15cGneNcIsU2Ma1s9+LS/ Rf8bw7hPlGyBAAhnz2rk4fiwHXDdxzQPtRAqSs5luP3eAbfKtnYHNyljltQ1yha1NQBEY0bYFpPzNoRt baehVqatOrBLOkcRTaLYLIwO7Sfqfuqv //HFJOPB0p+Q8u5Z0PzHxAYyXnSJNsavKnrd6fhq7vTwyy/ hWdpLN1s9f19peZjF1hBuVywBhJE5nGHS07oG7Oqx6XRA8TC0V50oUtywZlQ3FDKsqtj8A78cI45Cac2 JwR0IxYQM2Grk2zyywdYPAkNI8eClu0a6eSlGNsQ7be +lxMn4cyZI0ruV5pJ2W/B3w/ 2m5n81paNDN6R8V8U7TlPk9r7e6FuPP1Cv9lDIvTez1ZMJfyypU3j7ta9VslFWW1R1az6G9pdyR/ ZvoPV/2UD+zhZP4r+QKWoh5QDyjZ4C4jXcdsh6gIizT/5uppRkClwjaqsCze0Y+ NW6bjTFjp6b1oW1g9q4/jy+jgzHuMD3abOwl/XbdsS4nE/ SpfByn1PSP1xzwNjLgcQTnFmd4Eo8P06m5LGeh1vEmO6MSG3XP6KZri9sjTZPEoAnE3kCHOU6ChPVivI U /G2oKY8TqzI5a7P3oizLOxYlrrTIdL7v/u3VFqiL+o3/ qnJLwaT8w4dOGAubOdpmWKbjtp2xwy4kDfjgtNYy+0JLcFTcySyS/ OXb0MulorXP03IeMuNqeKTVzYNB8VzCabV5ZM0AuT18/11+Nsz8ht1myUtiChFxz+Evhn4a+G3H2b16E +P4FKmMqWiYX/3BdQNr7D1Y8XsHcSkitqc+wsOt7NqegZ1T9ix6d/6uD4H1Sfzs5M/nJ/ bm0ESlZopQHy/NaqS9rHTqssgBhIJaVdrKj5AjqsbEHLV/ giW3DHEUl0ZYGMbvfobuW2FxdM3LGKvNrJiFVUIav0KMmQhdwXIk56ij8EJyFt1rzFJrrrOLrUAssJj4 HjRtSiqamTY92K4WySKHkgsbqpZsUd90h1Irc /CTJD6xxs+IfirBJps+vYTWeVe5Tai4oxnaOwmMrir1OUPmqkpfQBZVJcRZeIZHgovkpk8PzFAj/ qcx0u5y6h9UjfFweOzXj1dpqkgH+72zGA9SQkg1d77Q45P0H9Oos/ csH7WEu20YeAWroo8G7T3elyTr3ZYMgy30pgHBy/bEyUBIhCv3xqbpjOvGJ0zSwicGn5ilnzHDVB/ mnb64cjet9kq4qSCoaclO8+ rJ4r7HUg8ZsKA9NeLW63lhyy3pmqdmx80j9grFO7glRiUinEhLmnFJbj0SqajD+ bbEVCEy6s9Y7r9pkdnb7/ 2I556NqmgmgBe3Pf48i2NUNIgGoRO4AQ0jzvr7zwdy69be49wsC2UusCQrbQuO5GbtVGN1xx85a8h7U8 Ml1z4elsiQy +RlgXKyOkFSVm8M2Bjg1mwtqMCuJbeo4w8oYcrWNQBJeAA8inAQco0TKIUrMg0/p8U+ s0m6rgSvTu9eqzT8cO3ngPVT73eD/Pz48R0nXe9Tyu9xjP0urTy/ Tf27x3zg1yxh3v07M3SZ4Kzy7NHl7oBUwxDdH7XhKwpp0vNUb7qqqkoS7XexCPfgguzYvm+ FSo8NtKNVaQJsDgS7wMAu5jAXAcda0V4klw99rCcIQjdvJ9nIt0cn3U8u4nxoL0aXnJNCUn4x1n3zo0I 6bqz380o2Sqf1wa9BncmicCne31PRChUQ2Bossmby4gvqOeDpIker0LPYCv7ar0qjorVUsu9MHFmG4N +Ykj7Qm1apsE/DypjDiTHpV16RTzfZe1NBA+ 98jMaPIBsk5E0uOPj67Bh7ebRxauW6Du03hTcZ4K0Knus6I23nabTbH4dzC5Kf3YN3iBAZMdj7tkW9d+ nQdNe8BAz17SzM1FH7g5altw4p+KfEVzr+y7519TjXetpEF3IHf4I70rztg8Yfm09qiAx2nJZ/ Bd6tECVzAOJV3h2WFLajy02lS3PqavDay0eVOcKawUNEi29yvUxKgc+XVmORcRzR+ AefYE44KlhU5byJrEPu3ytKHabcJCRkGToG8zH2hlLw/ AoKi3q5uxi2Nx1UcAPm9Sw9Qc5yOMZoKjxxXZ8ZygXtR5j37r792ifqE3ezD743g6Bbwj4Vk9DmjluLn mHXb /ZTj1tfpvFhv0t6VmHyNF4oqZBEuksojNSYnvOp/mcqwpwMnY7X/ ONoNBvRNC1cKn2j9esrNl3E8CLw4ZsCqyDQ2MMWtK6tryZ3Ky/ pDIlG061uC83M0Yw48znK8SxWpeq0J1K6wj26wcEeenTEpLHvQxXcfFE3st12fa4/ i5KT2EQ4y3Wg0bSeF4qLUBsgvIat1p5Hv6T3zkKsalu0Zx+e7bjTECIupmEw4oqm+ GrTzDNHFeWsVxpUMlyNPiKpcRW/7E9dR0v/Tgy0XRJcq4SElY545U1/g20JMc0w/ RnNwkCz3ArQuvfTYJeLitvt7aG4eAHkKscp/zx9JYQt5heA0ubHZXg2i/8gf6HqHLD7NnSuqHMx/ RffBs8YuHgWk566OtIBuiJONT5XI6pxzkPLYfRGWus4sL23y6jjKzs88B/TH00Mg8tors+ G3wA8IAhH2w5HG0b3C82obE9e2aG3l0q41VUfsr8nmGL7GkPd5dOgQ91q4KfK9/LhxhfP6ym9l1zot+ CWLQa1BL2YdVzppsVOdn4sqmZqtTFizfXuuMTCmq29wu7uepQeqh/FCjhW023i65t384qJUiX2A+ S7Oa9M9q4kjOwytOyBqDAmxvXkvu9MesrTLklg690Zsv7M1Dpn9d22oJSjqdfodxaWUAMS+QY53habx6 /M8l082zPUQEzCs53m5RB4NmwTCW9oRrSt4q3kZt64Daqi8n4JTFcoLfftCw+MtMs/ GJoQo5zS9aAsaE105garzu1JrlQlK5i6R8zyr2whaxgKsUhL2uf4nzxdzv0p1EsUJCi6qAh3gWiuvRaF XbiOQUsHracRPZ7RVboWtrh7nvIu10Zn8 +bOzGKcBcPImdjZHtgh7JYWCmDw8kHe1RmtsaG4KVPlRY77aUxhh5Q7PIBCMKxsggdU2wk6zQeatLAT+ fHfLMZxw6Bg9UOzWOMiiwmcX+ KU6Xp9K135eFMIwL1oKvnS0s1okpBbL6De60zBe9Ux57UdwmoWJhw5L26u4j7vctf17il6mKqhZL1NHj 97BHqNowmaFN1zHG91rOnGzdehh8ue52LKT2n4U5J38tEtIuQe9ic9nO8Pr4pWCTaTf6WGi1mG5kDypQ 0mplCPRzdFUgJzcavXrJOh7t6Kd1iEFtiFuu7oZac10y7oPvDWnCZTPtQFpCWvk1MOFXR275 NZ9k0x4i4ql5rVQPzGAUNjq9udC+ 4H9skwDeczO5Kp08G3kpLj2SqnBIzsD1vFKFohVn9q7kFajAP1blemfWw0yidpLfP5sO37FQqoPWokD8 x3OGMSzT64MO8AIIYi0mcjVZ0k34hJcbaozFuEtZmI2nHHAuhzlgED9WIeqHTKavHhP408mUYR7yrzIv m3OyHOyIwenv 4JMO4uRQ94s13sZc9qp0pUyxBhKkhQrK2Nvdkhkz1S5N4aqedscEhlv7lM1dMZqKOPkrzQ2p8ydBfhkl TCTPamWbSr9mb16xLNss uPKj+Mm1LqbRwmfOOM1rN+qXgtrDTYE+6yYotJDOqpMjdI0Bb4CilfEq0jjS4EvE6JM8b5s+ 61RL8jmT0Vgq7Ctt/aLO78bo6vtna8CpvpZ1vg85i+ j84wrQi4jn1zT7v3gIHJiMSxwmKKQCp2l01ojm9iTABi4363MYy11z2l/mj5o32PRgERU/ YVIx9XvHFcfnibyx0nIJfcMVw0orEcka0fiG0hFCCm/i7Je5SvNdRgJQZ7gOnxhz0Lh8oT9LG5pWG/ rk4mfdXFuR28Cf+2X5xj2Fg9FxBe0bxcE2t9w5NdE3SHpNZQFUgCzT2b7dif0p+ 2bAiI8d6h65k4rrjM0T5gzMcFWV5ZlH7qLrc7FaqsBYJM7n13+9+E+h2HiG9+ BiReuC8qGqBxysJUC26Cl80BtpUZf1uc29bX0gole8fjNjdgYK5LrmXbfleszNGFgux6Z3Y5JoyLagt2 Ou6 /jlSvXzs0LD0S7H2xnq5a6pI4Q/4VGOU5nhE445bi46ZwIOohzsoVGjgJJIi9Bdp1kRwemgcN+ EUVTmA9izV6vSceSgNJwi5vtb72DZ0LmXzf1pnrsD9Camerwpcov3cp7p7TY3HpMmc2B06G4a+ rf0Q6jgeD/FlHii6pMfFdCiyTekwCpeqfLCg9US3yJPrzCScGnbQ5WxOu1rQVE/h+ 1noJQyxY0vcBzqltN4kvPsRLBkVN9MLy7Z6Pjm3JWBQV6gjQvRBs1idHFukZSLEoshnjcBqRe/U/ Xg0mHcgT/H26220/AsK2Ub0rsm8Qdj6gF7G6r3aXTapXpeomkSMqxW5uK5E0K+ WKPZ5tqY1V2H04um1i8vc6kWSoLmO7Hl9V4qG68n0v1EdnIy511Edeui7WgAyxWuoPvaV9Y/2y1GQl4o +XjB5xU9DG1bp6Kw9rqi68amgQ2oJFejvaXjw5Gx8hA9FkQe1+5XUKDS2W0Xw1GLeLfoQsSn42ae5SZq + E82OIkeFfoCiyq4UKa9YbvPR6z3sUeYcT9raXUQ8u1q3sCouKsqzO6PaLyucvETkSSSC1j5hMMhJKuwN GEpL8ZupF +3CsbrdU2KYKKo71/xb71c7LMIjGo8XuQUl8Q/AANRbo+JvE/f4QnWLNt17vuRBDnIejyj4aWYKGHA1m +k1KW3k/w5QfvJaGPgJ2PtRa7d9095pz4f+ EwSpLNsL8uCMfMot00nxlAkwgkFhw9rzjY8GmKlZVVxI4hSWyLfrD6VOTKRX/ b3h2qs1mcVd3aCuZ0PlDAWQNqO+ 5s17Vz2XupbsBvlMoxYFIdrQX9g4VLTUndD32WE56Dwh8Jxe8iwyzjr9b7TfpqA+ 1tKx40t5e2oAJb2ylD98gGuBoqZRfEx7cUesuzURJDE5utvrydtF4AHNeve4YW+NIb2/ kAW9bA9Qf3M0rQGFKgeRtxuo+jvDNp9/q1swkn6WXtWnTBAVOrkG/pJJp6ZA6pPGVibVmuj1Qvt9IrYp /UPEFlavpWnahqs/wDa+r2U5g/zCB7skBuxFh8ECegg572oLPippAYqkZ4mbZBDH/f6Eo1F3x4/ 3jk0RcoVXI+q+R1e0w00UC93eG0gwlNrpxI/FXxkJoPHUf5cyIcLp39lIbOXY1MlQou0hyE7n8+ Mvmlf0imfAe0BKPGVX3tbky68hjGvNRLZxPsSfnm+ 3MxlR2atCbH3LEByRSCsQybY2Mnulqq8g18xT8qf/ LT3qv32SaiAx73WDlteDDvHZaNNCQQcmLMZSZfrmdQUwXex6mo3DY9FkA4L/ ET3dZfh2tejDhP3xmoVip47v3i7iwSwStRNwBqbD8VG8uhMJtqwPdx1MkSdKmtvIwbnsdRK92xF0EaKh EOaz3pHbJz47lquwouCf10somL3bNmA50F9ovldTwcFdoc9tG3mJm0qDFYoDv +A/RG0Ky18im0o337PUI+yxTETeiBrxO0ViubN21ghRnW7lD4TEKX9fp1hn/ e2yIEWUKecPp35rEuIErrE7JnFn1Eb5YWRg1zJCiGdeBFEqCdR5zUMHfdKpRdfImWgiU6rHqjrvq0+ L2yXyQMjUZWEwXRppxeKrZf6d756Ws+CvSSM0vNQPlhDPwVWaaIwd4lJyt65Sxhje7hlyp2/AAQv/ Ridz77ZTu5+y3SNauyWevrFrF6A6HRLebmm5jvmfgxBm2ZsU5almwrueXVIZ8zRst2uzX+LGj/ YgGaj65bZDA4plVHXncDQFRKlqEgaRa2b7cZZsHtmn4hiui6lzpprS2nbldfv+ V1mR185cxMxfXtC6OxR7mdv97MvtnIU7njFZtfqcAygasjITVM0A8VqJFb61AiGrh6ZzBG8zoi9CCWcq IzucKmknN9zkJZpqbDEwuhRdPL +xfZoCRLJAqwMzTQYFhcXImzdCaUlFKzbdrpJvZfZba/ ddZQwyRAOBPuOAG7xlMko1Uu5RyYUNg3pu9STZJIcGQjyqwZigzdqD8Ud7Tk1RgpTgzLX8U5bu0w2F+ dtULaPjPJi6cgmkLiZc9RW3qNiqYgy9cwmq0p6f1fy8tBzhpEhxsg7Tw228xXC0J3pxFhzWCEF0BHoLB ZFAHrIJcKiqmC3RlhiWvjTQL1y3ErDemicunyjbx82Ep9zctlqvfGZ5fYcmjK4tE2dqEw0bwLWclnIXf P52pD94d1 /ZT8NlH3+e+sZNV8/ Y5X3IsvD4lgStI5wIQf8b2OTIFNtmqGAddI2yrahKWtaPVzGbpLLBemWfbd4862M+633I+ WbvXMEcwgpQIvGv1mi01R5SD7VBOhZqR0lY2pE3G74xFdrJj1WsdAnktg9DX8KPmzaHGyengnvYjBz2g RghDtVmVhHLExIiYMa /nqg20Aq96UG3bcrcEGKIcHqGhYMhiIBhlVtcrHDjU5iNOQkHQO9fdQ9tV/A2l/ YxGsE5ZWftKC2KbGWpuhSCrFY99e4Vqi8svp1oqQSX948NVe0OFtzlRDdVIZqYyzy+M/2d/ eFzx3lfRulKxHQwP+srS+ xs2HmFEdvpdSgnRxB9jvzKjkQXsWJl6sTtdcQAH5amDGtkFAwSzlErZC8ML1pimoorm+ KYnfwslaCsy4mLPClmvoINY7kaGf7NPNpfXyb2ssYMgyx/ tGig0H5RI9Vve8dEfEyG261nUOTSUrGVzKiUHZdQfaVydlXUhPUOOthvyuYzd40VdZrfLl5dLlzAIjk5 Xqrl25SKEbwlGUgoqRVV7JMLqfXcN2eK6pPxtY /FSbIjNapFxdlQQ99AhCh8nbIGIdUUyIS5ZkuF+ jin1sdLQ5ogHxGp127ZbHY2n1coPBbz3PsgdPxZ0P4y0ZxlAL+xpca/ WxgFKsNvF50mHJE2Z7z9gFPr3KB3JSY8plGQ6Kl6jurWs7ejBH345iS5BpzfIkSbV781lxkZ0T6Sl3G/ Xsyr+uy73AQJaYL0huwCyYmmdJR2WMWK5g8+ 6j2S09Aec81lust2iBhC8nrubolL27AWmAgcnmVG5WExqo0uUIbva948OkYeCZM7MCQ9U+B3j+ d2M1mpSq71uxvIBI5dQWlFIejVJu3wfwwLugGZlWc8Hij14yU3dlbVCJnHItC2oOO/ rSsLrh1RtsDdhDWZTDBbMZISy1tqVjEA3jxbcX8/d+ D0ehyyg01I0wqbecmXXHPwTarWjbaFJ2DwIelv9nsIOKLI29SIqhxeVoaJaE1s0YVj0Rb8hftAAXV9/ FkceILk9odLM3XpuSH1EzpXjX8/ wH8SgJz2kn8Z9ylcbBVkVu832y8TSKAC0n2BQecKNySWSAOniLlbwLSDDczEqeeZ0rhZuXA0asrDL8Ky UhgEeyNaeOdMT1OuLU5wj8NPRLNx93Fp0s51fS8hq2X7CRjtTmC +/a+z5b8Nrzjv2EbwoZTNMYkoQpDGxun/ xU3QI2ntRTdpclfHDvTYTiFKYeQTlq8Ruid0dIdveFjeAsr2e0xz+N3cEzcS4vJdOrtcxl8l0Fwm5Z8+ Zx9jx6ARTVCoRVUmTsHLrwZP7pDZhnwTzW5RKGMlLYFbDIimekxaFvhots4Qa4B7KSsemptYHXaQ8uM7 0iAUR93MlHcZEADdf4yECUEPzqF3apZB0vqew9ulcYjqAd80sPLM25qibiUqmcyy5JACA3cJFnycsuEd V9l65JsTRtJ2obTdqL7zuxCALqHKVB8dfpBAdlXpKMkyfvwH5C0NnwM3kiC pW6kIjSxYYBuZhxHBPfcHuCQCM6bPUGYapSOoW1NmgKIvSe0uiKLm5yImOkie7cVIaVEuCKR3ZGzUot3 wvU4dlTMVPqEyvrAazdI 7c2+q4NFFSGAnMskY0DGHVAySkxv4bzxlJB1iswA/JdZva2EKm+ nNxw1cc5lyjaTHhIu7IZJcywg4x2evCdmSQvVpgIa2mWJPAljj0Xg4QJeZBDpynxeTQWsi8/ evwgaHAFG39hL7k0icGt9prxgMhrxTZqHlMpt4zsd4RJPVISD8KCtIy5oOUOcP0mEP2TMKlvDSLOEWPx Rv69ecbLodhFIkX2LADVPpqMx0geBxTwThQtDTVeNeVfWURQBeHNgZXAzP6V1RRHx6tEnuGiVznfeu53 gnGeUp3t4m99X2030 0i4VBdOHbM0L5bobD0q6fsv7/ pWt9fL2AcVWNGJyX1rEZtyU6AkDAjVjnHcRHMgXWbisWQzvovr50uxlYYT16DXCeWvtw4sIWwRHEhgDb m +z8ccueXnb8t9Kr/wAULhKaDU9v0G9jTMz/ uKWZdTWcwLfBE8rJpwJC3aIdEYjXwWK8c9OmoYx9h0lPTITsTiMhVrYBSXKbffVAKzMS7kIghYmQnGzP TK04NHsNJ7MfKc0qbsc /vb9zZriC3zox3ij7e6p795A3KY0+ ylcKogsnMoNkJgtQtGEZGLdjYLhoiikeotQxYJxSMEdXyKVFEMVklFpkkSdN7aLOY9vTdgwYwQwtzM25 OvCEOgCBPpTPAYn5aj2VubLEGxlD7b2oTFo3dR8mWzuaJYyZnEVKc + 8qzvZRqpjJqoghprLFnxKCZRmgMSw2sMWFfRlr1sJuAUfLiipfnyesJ5uLAJbxtjkn4pJ6bmfQpJQ7kW J4gJWdGt0wpK + m0rDM96atssotC9qhmVzf3kSSU4YkUrdoZWgVT6Nq62cGfslGblSNlfUODXmqwt8lYFpWeJTJ70lyvno aOlSvKDvkugrX5MImMGVDNjZAWiW /c7wkEyKUYk6SdJ24xdomHft8vXUXRryWMMlbhCccatUEODrebqns4nGbETl+ xqBRJqpqChz09RwYlYBfeNBTiM4L4dDBGVRyHKMJAXIynoGG5kii1Jwyrt7bv9sd33h+ 7ST68f39NelzaYyph9Gblhf9KLA4frFzXQQrvvDVU1aF04bQJaAToYrB7jubCpXTE2AIbe3yLQ1Lg1jy As3YlRHkzF /t1SxoiToYiFERCU8UgPiyxLrwxR+8HlCbxLY6ql6c2jrPbsqeBh8A/bWmo6i+mFX+ 0M3PLaApXmPjpsc2JMeHLeEXjmBTVK+FQm+pZMf4fDiAXd8c0JZyKDCbuTLC8KIT3voPbsFnf/ wDitEPSeHlhQ1qdpygnd+7qmDlOj89hFCuOeLrTrZxW3CoQo4488vk/ YrxwhEjGsoknLgDzxdI7XCeyfp0XWzZFrivLCFINxcoiuY0OQs9qX6bm9vBd+ wMi4NAxU1NcdS2iHEvxnHdldAMKIRtNHNIhNsUTfeINURUeKxMzgjYtkTXEfC2HrKDHDywgaVEmAmBtG ZefA0V09R3QDsnkFMhT4PSd0Xh2snDmMIOOaSxdx4OPejI6nci31eO4pFawdSSB5pQ3nbeg8Yvume +lMRJa8N3dW8P7JiFr568eH72/ ps04yq57c0m1GbvmCQ1523tQzCSHNeqZDFARFKjIwepiBfU0FM6SPBwjOs5PnwSFpzHCinNRrY1v7Bf1 CxsG9GsEAV30WsVFvTwjEcv22S276Ni1G8AL35Z00bcbSTzUFCpmaeUtnxCFmBxEYpPwm7vUwEbaSUmC kbrCtX6ideOncH8TMsxsxhzCLb /pKvRETTD2yVaCkIWOPVLRZR8ZyK6ycBlRG/JNdbIegkGz21dClSSRG017s01521Hjm87UzeAlzAvsi/ kct5MLIGe47sYw/ t0evG8L70wSkzDo3h86U9hofr6zS4d3YxpF9i0KRw78XlIFlyE43sGWNjqUyewSJbQpVX9f9xchySihl n5J4ePzpOaXjhewIqYKcjaDeSVQqIfpTx55olJBzhJOKNTiNa17ylQUiwLlHTFrVcvAldNsLv9usr nNm473hrhUDsJsSAL2d8ZgezDPqVrCMCh1hykLyaM4+ ka6CYYlKK7G5ru70zvpd5ap1o9hC47nr677kp6dh8Zwe4qd1fYZNtflL2mFXc26JKhGmlLbSgatITHKc AW4vJC8Ml +YISqmPUJERHttq2UZftKzMQCMuusKfueYYiYKnfWgmd2HX7VX3NBajIsi6n8Q9LFeF2M+ vW59K1IcRpbciLMgef2ctZFhWKqUuV3teCkUJNRL690YbbxbfOVp3cORGRinUmqMNyD0MQ5fOB+ 8OMJ2n5eWoDASareRFd9rm4M4hpGrRO93V1+G70dQucj633xfw3ZUlSDD3l8CNRx330+SgF1kbl+ jdOXjQmCeYVOjnWNa1C1QykffJKjWSZuXOZbeceTeaDqMJFqlf8Aj4vrrcS8EXIAKsQfvktLbYvBo28W vhO6nyuoHcgWotarsiLdKpUesMM5mmlQ5dBNipVcM83GOdntBvF7QkurU9WnZju /NWIdLlparf00Ykoebo3w3LQYZIgsFIct0PbHMTHZl98I43YlIbWrqYM4z+ JU4pzT7H536DD513s4eWG8fdZ1mnXprR1bGKsmgAL/Sa0Kpi8VHXKtwvyqus5RkQDPm0zW/ t62vEbTwS5670JhwaSDRM7VfnvjFrw6IfeemRjrmzSaR9sbmTksCEIr42toMPMy3RBxHGYtpJMON72uU qHUe5JsuTFU31tQIeLLO +1tP1tApA5ScPtGWr1mSXG73eGdUQJo0ZXohqQIhkC9RkyyB7pXr0p8voXtRk3ViW2iY2xa+ ojIThdCL6B2sfRggnQwY1ajHfiO7da1G0tibp80AR6enKFbBTVFzR3l16Ccs+/ h3g11pi0ehLwaLJ2okTMKImgfeMe0korfG1eD5jR4JD8KAU2i4phublgKVPZBoqtUEmYSrG0EHpRccFh C2wO7 /SALfBSCSWPCFjqsXaptAdBczpupNStXyfcOCIi0tyMuu9ldSbYF4hPgkDqMhwFH7YmnvOrFK7IT/ 8yNCc59EoOAAi0tjVFERCpGaFEnZDTuos3iRY0UYuOzOx48i0/h/ S2dT5K5f5cKa0M9w9w80twtclpq1ch8moYnQcmTi1axZlq9gcyfdyzyHuQpjyt59je0XLHI4vHv4mlHp Q4t0H9nv52GX4vNhm00fEQnbxlNggnsg8WRKbEFA0o2AHX4tj809w0uCmJt + QtnrXCBDfWkIR3WnvZL8mIWPwmOYNVjA5bazIQut5cfO66zVQQ6McTGqzHqzIIizeNoMbUWcTRXAAlQg G0bSyeNJAzv6kRH0pEzT81fCU1qF412EpU5i6DPNrgYs9hqFLYN8xdw7lrb2lI9yt09TsBJEV9Resmr2 T2mWvPDVWuJEjwK3OyOpNqQQuZ UWapt181RWMynFTTlHFvGIzN01zUdBiu/uZN9QCJA/ ZiTXBZlPSsK8ApE5RiiZH98sdrusMyNAczK7CdU9FbQAZSCZzAOOe9UoxBoKoPvyFp9/ aFu7wIzSCotDS32IsxwxuFgKGRJlq+ 1JkzTOHHSXilB3eQ6Ugvo8WtOi1VtdA89914irl18P3kSZUNM7lm1d9ohcRRuh9BdmnI+ iwT6f1pi9pI9Z9jTgwnEc4sAFB8k5tqa3LjRvZkWTGEtgFrbFW4UJgQCFZ33EtTEBYjpI6luKPoPW9Xc UGyIICrUPaVL59AJkURbWRFtKnbbSM499hA87sDv6ENdc5acjTz0AD5bb3R7nAKK1mWhzToalovOrWGt dI /G3aGwL1UJpxQsguGTpdIe4qt30GRytz7+OTSXt2knWqGoLaq+TBmcVDyixjihy81+zEz0yUbZq4ifD+ a55fTBCSHLnu3Tho3beufqrGPE9Oe2y3iMS0cipzHmEH6zf9gJsONhis99PJHW9InFsRlStxv7bV2Dr7 FtL +74Sag5IZnQVWCnJZN+ Z8pxSXYWVI5bZ7QP9wH9jKLAgv3URwxj7z5QQVAcTjGcwfBLb6ch8jOoOG2RptFvhijX5cuoL9N0gM94 t4qjI1bx1jQJOrS0xNmwn5IGsOFHLqJcF6pjhvaIkKkZKix5LnKC25gnnVm2N0JK /Zqo9siKayC7x6/AANdr/e46IPnnd3cZmosHf8qN1PYHuFjJL+QDnoIFrT5fFBxyyJe9lE/ pq71FOJOyhzxgqbjeJRMNTZUHtI2yHz2updnM+ MO3NJrCFjC7d7jHH7WN7rUg6C3YizCCwMc6RwHPLV8KYdu+Wz6kss/ bNABh5oKyGF1CSjusANAWKmxeCZxjXpBLTKMhAxDcdceWqrdqQPZqym05o7sn0+hrMH0eDMvpqNXF/ Dc75mhGmruOgj9tnLVXvgN1emaIpPVH7qY50qkyHmO9czqdPKNgh5JeaNvjRkdPXTz3eymgaYz1pVWNE HxstBvNDSJDKgE3K2R67QPYFZZYqxjfljG2V7ZgRCtsKJjW6w9ST9Tedd + CiCMzArHkUytHmZmT7uIV6l2o5m2s5pKdQVWDDtD4nqRQUdKyXS343dj2c0z3963fqekKb3ZVrWFLvrs OUZJ / Msf77mUdc76vffcOKGfKDiGTPXZVW05PudWMIqrZZ5yjEM6clIfopTxudfQRw6XgvsMRaNwS3kBLyMGJ XYQSSO +5qfegK1SkZJoqaootg+ VHIQsedOTHWSB90eq0gxbjInMXUaUbH2uAdf2CsecrkvkYQFFWVYhh2k0B6c4779tt+ R4LEuW92jkDN54io9ncpU1Ip1Rs+ 1FLQpSziN1xpPj8oJXSrxN8yjA9jzjwFpKUDTQCBlW2DmyXClkRn0OJRpBq9kiHAUUaG9oiT0p4CwIVY bxhSDg +wW+ e98c9EnmYTvfkFr544oQeZuqQGgRSDrV1WiOiVoieqrnHgDeNTCit3EhxN9JYN8Hj3WvlNYaZQHgrLcW XM6huEtXuqgv7HDaeCm5six7bj50t84sw8RIgAg +8UZxau+ l54rg7W1417s9TR0V9gM7tT7YZS2fBqfLQGaPuirTBbzAWKTOfkhkXHL0Kq6q84JbjnCmw5QqlWGdj8T yUKqS9B + dhk2AIYm8T9PERlCjyS6zcUbGcZIR8U4tTHNa04YjsUOxUssZY7lo5hZ6z5YcK4yTDB1NbIruHeIEm8u Uvt9ZKFHdvkhobhmQteHK7e2C3J9 +Si30VdF56DrHERQnmSeLEb5pkt1l872fwUssZOLl8f9InLVdAqHkGtf7WMN/ qDkRLEbKPSBUsLoHLPp5g9v5fZyaeI2JurhnySgdczIkV54a7UzmDACNhJkIBOqEU4wIyRzZe020gOo/ rPD1oYxTzY3Nxe3BOGnDrbY4K5ABb6JJIQUt6UNIFC4TJq/rpTOrId2T0cYG4ZdNveIciN+ qvdcM9ywwPIECpibvBzgFyzkom6J0QT6JEu8QjX5jwYcORTZrhXToYf8NWyHvBZEOBNMdWg2E0IUQ0aK kvx11mffPHZZKUYXE7AQZgSl9QTmIPWu0U2qL0cfXTthpPWwd0gFSamlkttXPeGdKJU2NlDPKHdD5tn +8zdqgiGi52RV1by/ KPhAqwL2LxZYi0CjwHCxxWBaT0Qz07M7q97VFi464V0TNwmMunjW2mC26ym13Vkz532SB7JSSut1mKoz kCaKNAwKQiEsbP9mcC8DJVLzFYXO7LQkDYdT0JCUKUCNpRPbQQ1tUME3GPFzhgz6MyeycMDd + 626Mt3tQQrBMs4jpb3ImmZCj4UtPA2T81hGnkuiiP6rpNhgC3YEFNUBWUTOxCAwpeshSivGN8wVyYci3 rmky2sgz3ZrxjTF4lNtezJli0spwQ2wKMp59Zc9MMiVWAZZvSXza21FN2spkb3yCche6k0cSG5YkaZ2g MV0CRYRWZ5p9WzqZIshwq +cqup1TiS8x+A68lG6B+tOWdHT0xNTzcVqO8TSNUcVRRNZCMgV/ LZkCqbDO3f6Syb3ZB7vxOwgk9mdgleE6UiM2pkFORNYpsCLvCF+ 3wOrJCItJH5QcU6q96dAzJuXSt0IcAI6k6IckKzs8w4Tna7waPrZNHPNKtSzSUqAO2dJmgZCkKCayaFZ NwPVi0f57vexTUVPtJci /EEGWyNu35UH3MN8Slfe16T5QJIcS0P2g8xgwgHMOuX2JG4VtYmon/DG78a+ OkArrQaiv1EFW7EBE9vMLHNqSwD4d9gfmGhZ6O2suJLITvP/eIVAf+ai/ 7mPH4fTpOe4uqyAL6jbGQvo6dJjBLbTJe0ocP5Z8OPEYefzgVpMi+rrxr4/0690G/ oFEj5xm7sPyCT4kokdzspfdKUoKlJXVy0xF5wlMFZX223EJVwVAF9nBbmpcmJ7yC0B4WxFQOjahFbyjb LlCFodxvT1WifUdIzlJw3QvVBLsBBjDjn0W5dZX6PZHqA41aCbMcpw77r0pc7cfczJye /IYUnMVcUKstw3XC/DukEfk6yIWS0cL85uH1JbKKGhnm3t6d5cGB9pgBIWJ719I+c/ 3vx2mKLMBlWfFeKuJsymqU3rsaKjt6od/ABBd+ XuNTSr6AWd7DkvBTGf648330VemGcZzHlX6nZkuiWtMkdJjtrvVQrNFIO0qtemfXk6hBn4F5rM0Du9lf uDskJWuoEvusUzAYnpIvNQFz3sU2KSg92x9W9LGRmNtH /TGwLFuN1cbV21XugkV6KCYJ+05vEssDYLLTpF4TvlrYF0jW1wvMk8jjyZs4M5B7LVvsWp0wmld2V+ 6as9f7w88AzWFUQyeISoivOoSupJlSeMacQU1xChmoWXqCoia8dMVpgNda49mD2P4B0FBX6B/ KMO0KtC6BFm9Q1edrb5Nt32x1wxzieqqiXGtSthl2GSc8To4GpqHLHEMHK9V2YpW6V+ GGhwzHcxly1STcgnEqKwi1gyZFUhOeHcHBkcuIXdB0sknkv3+ j38BeHPd3x4qe5GTFLzupVAHRxU5M6CGhaF8oKdFPsP/nYa8rGQcs62kOsNNmVXcaD+ E7gDeZfrLmhVdgDDo6xAh7H2HgEViL4LUED63oewMpsoMuetTNZg2usBeO/ f3owanhSQj9IgcIrXhx9q5EEgUCxZtxr4MZlVrKJYdQwFqr79+03Ql57+4cgwiD8TdiJy+ luqlkypj2CN+omTgQHkacAqyghV7WK3pmqjmK5pFqV6Ps2xzv2Z9yB0Is2s/QUQFb7Al65/fKXw1S4+ w25d0wH+ohHwF1pPS1hZx7Md2MkeY7197pfmuQTuHUzOiJUmF9lo/xGn+ZHmoKIWNNIIdAhRGW6EjyUw /AGooVpknHPWjV4oMhoALfoXV6rzKXbCHyUul+ loJuUB0745MphgHcL0gghfqG9hH0JjVlbmNszmcgzT9KwDH3aPG7xdMz8RQLWY7aWUNm9K/aJ/ VJ7EjG1S0T8p2FuISv6TcV5G0aEQPcSMhizTCd5VyxoXVf2XGVQriqzFVHLzdVeajBLOzhjapQ3HyaZd Ilkz8rLtbkasiAvjwlZ31bhlg3QQw0XJr2YrYIfAFJdUHm82mxRMIbZWAqeuemHC /AUkfbGHkL6zI/FtxVO8xsSjyiubC5Ju7O3bELjlsFS/ 2yQtN44CCTrV0s4xa3SyA560n9fkVgHMLEDbrxZO9U2RVGIcvnRnnSu5bRMLtYbpGQXH7lX0orp2myuw 8sMKVqeSFdnsxtvqFDquzRJ2B71oahfbR58j3bstAAsO59vlqLjww1hKzQoEnvOxAEE + YtVN4XP4zo5udVA9wFVoqxH6klgh19PHhczFR97WqQeDB4jHTw3GOlHOqOLJ6BcBWAYvcu1H7jtSEwpE Jcj38kqpqdo +oebwFXNfOjBGrXqH2gtoVhsQVna2zc0ADwkTdQF3/ EXbwlEpfLSX984leeEG1w3PsvdMKJ8hJdKjJ3Rn3bNvAcz8lq/ W8ivpMgqu8pl6J5hy8QJ39jb14L2GGnL1r9dtcNSotdTngBSZODYVCmFHXMxd1oxse0hi33rlbbtlyMf sFrKyXywDYynw7kw2FD1wgCzz1uUAT5hegCSX8X1WThEz1AdsDxalyz5mjPgnennGPJ5unlBHsXDfNHY 1XK5enpLRE5ZlZxFyICqpyAfrBHhNa mWHcco5Nq36zfk7ka28kgWLHqjDddcQ3hsqpl0NErNuu1494ar5SWl5qjKqT+ I4CroXe7iTUXh8DJ3oXUpS6Tk1JiYLk8tVsyY7AXdcC3N5qx60DTZ8HWrMttaxxMweStC1I79f+ Eba5k4WsjkbWdD1ldZqnJQa5lgZEc91PA+z9iZvR0/liJJYi5+KSm2aeZCfFleOw/ rOXVwaJd4YxxMule5fp6eRhjqpWQFemiblvOQE0+jioYrd7aqks8l8G+sYFuZbiM+c6THG/Zwh/ A71H6nZeO+0v48+L3wz+GGo+C4Axb1lmJweN4G+J3ibR/Fkxso/ TElpomNxP939ZHcCscBjbqiB00SSCvABj72lgrSd4d3jikWzW5Y9pOyStHn5ak9Sl5zkgzYmvv655wkM MA7HNmdnLpTe87J8xAtlsQO +POOQk2bvwfdKDqzWtRlm0S1HZplnzwd7c7Y+ PWMuuR8Xyh6am19S5WuHMDDf6oufpPuTi82B5ZQVDYja9AvwqAkCBPZN0vUbyDs8CH3c6E+GWhWfw9+ DRt3HhOabUTVigIDNmvh00gWzy0k1GTm6c5wANfsWR4JF7sadyb4FBHgO5Ovhwdz+ 7ACs7BegVpNBKMObuG0qYn6X3dPeGc32a50CW3rP9sMQVnhsOHvf/ Or3v76aFzHnfayAu7aOMkSpLaNy15TmxMWdyxaHyxnIzes+uxvmr1q2RCkmENpMk4n/dU+ dLwOhQNkgTnqT1x7iLvyaim934wvP88TtZiAHVctiz6LNuO+ZPMSQs8xeoInrxAgxeNPxU9jlI/ K1XxsuTrh4kopa7O4Ku07v6SnYLh6uJDRgjky2sCvKWlBnFw7vvviGgO9G8LD3vSxgxq0mGfjYe/ sH8iwmT7xVHcR8MC+vGpaBY5CSs52N/ DEbUB3yjcIjCb1wgvZ7m0w7hLC29qrarq5EzcmOQYNMi6soH2OF/m/ aoo6o30iWdkpjbAJg4jaz9llvWyGZzm7cQuZejq2cx1GC5O6qTGnnv2tjI59eB9Tv9kfsZ1gfYB9+ Apy0ReS5S/PFjgpsdoI2ZrohFpRNpnIDvSx6zEYdn12qGZzCtGSZDZnC0zmtZbjMpdSo/ 8lmH6aY6ioYYLwstMZGn7jsRmFpk3E9xRJb8d0KpmA2p0zdo87rzl5syAfSPu1OS8su8yelz7wSpeKfq 4xwOElvljpd6X +yv4M/7G07RtYWmovF7Io7HcT0PuG7dBym5E0W2LqTMt++C1/pcNt4b+FPhjU/Ifu3oD2R9N3yx3lNt/ GwqAaer3V7sps9XdYa1w1H0+w2XHMaM+uGmJ6JdH/bU+Tw8sJhX4Z+HvBvw7+F/s9s3w8j+ QtB380tjFlGh9vxZZT6T9+u8Tg6czja8h6aQ+0RRSQ0i69cacLM9ptkzR5R3x1Bou+H2a0z0ccFC7q2H +N/ UGdL112vbAugdp5lZbf0kWNIN10pFlj38Xa3WSAco18mWD3D8acRQWdRU4hgeYdSqoKmyL98G13HmAp0 Qgz9CyaJrIwddTeSJeIhpzJxnfVICsf52l4GBcDc7TMop6XjN /Uri/fmzijh0++pXIcScGnJzF25p80nWp1cfYuLWaJz+awup1Leu4aiX5mx52B7Sw3dz/ gbGY1YL3Lo3JHuZnvdl26hMnWCejCy732p48urM36dEZBjdSOnms5ha2/4Y+MmqhjYbty3l+JXrpL73m +SzPzwyIqzWpaFejPkr0C6fQpGoj8oSoL8eaQ8xWwL8D+ Mqc2dYrezsHj4eRxS4WTuW6jN9KeGr0pad6Gtqsv73Y5w362F7PaT/H/bCa84inuG7rshyE3reZyin+ KuEH8ozx2e3MIl7W+MvBCLSYr2j88CLFT9xoDE758x6I/7D0c4ixAL+nJBvwnB7e9Ah0Ut41H/ u68oQRratNH0O6y23PL6P5OSt2pCh+ToR1txCorOgKiCG6F37Gyqw6t/ LbAAkUzQ4R0BItjewhh6NkzfL8TRIp93IgFSz6P4MdphW+ cTqrflfuUx6c7puvLitUEIGkDWRs2zCq2RBTeojsABwOYzm0T4dLRq2MVZdBw5PS+ 1O49HJcTTuoN72oKxvZA/n+XYnDYjC/ RmoBcvD1UXbDyuI9cwYLsIwwPYiopIjH9E8rP29vTknWublLZo7xKWn7hc2n+ IrejnaeViV7izkdUpetalkA4n64LRkPHl08v79HOQKyysvELqgpdp0d1I7tusEvFw80U89+ 43RMuO4fIW3zcaasmnF+lUNL9Od3hn62fUyENZKWFsMgxNjiZ8n/ F3cTtYU5nl9hAB6ncYFHgx3IOYwjhuE0aUMcXVd7eek76ayVaLK8KTjN3OrjhLkuKsR7uO5LZn24FFpH HEben7rqkisNPlzeqOfnmq /Y3t/Th8OqiadW8VzdZDJopLygNBqfbIvOfcbrAxqP1Cyi0hRbX7FZhNjbin0oRUy5H91pkoJV+b4bC+ 1eqqCckxDdP66wHbxvcI+fioZlk8Uz/d1vbl1+3/PmjYJ0IcJNRCpbbrxf3f5KxiXIoaztbqIOXNjG/ hBLNnkRstm0m49wqerZ1OSrbd/3Lw1P1Q8N1mp/zb92S9e89s4qpY+qcZ70A6PYhE6a6/ q7tP21Q9aY55MYzdrMVKlNhWrxdf9s9vwh6/OnwYjkvNEnTWY7+ O06WITJ6dMjxeg6pc5FZ3AzVfELo5racqzE3rZxlYDxiz5pmgA/yC6RpRYOkH+ oSwPtc5IC3tihh0qmmFpQIXeyl7NozKZb08IK4UIOOMN63IlNnIWZjQbxYoeatOphNc9TYOAKNDJcq1s X7ve /A5uqbpsi39IAFsCnHBxO+kBpwUDNjO7KWAMDr2T+68m+z8I+ XPifTqYJ7g2Qfc8OtHjHJTvCf6v305C1bRtK477EJyG4LXqJKkjqm/aEE+ tipSf6UiVI4spSygh4hWsX7Z25L27RswgjqthB2Sa3Huo74xeCtlChgtX6OdNkeIXyjug+ nBl8j3XfYF19gQsKc+4leuDIlzY4SbQprq5O61y+ NBlATMjODvQDjT4Pp25393o9o9VvsBcS63U3LDw49zUfZr0IzjRSBfuOLtayORZ0f7J5GlWy7slrXmHs Zdgi5u8i7n1DMwtYxIiYdKFOxnxYU0pcxFyTRNT4P4v8pZ3EXz6dO1aD5U0ffunzduUbCj +UCoFox8rrmEHQ1vRRgif91ccPFNLKUhoTOHm8USxKUkg7qImjxdki+ iDpfvbWK1axslk9x7YtT54xW7Sj85948mQit9L+VVHTr1q2POXlca99+6NT2fe0qCMso7pBYcoH/ PgaPhlxUpVsgj0CZGNLqPnMe4aCJ63T1wgmymAv8c9nyArOOWBm3e4W/ g1G4q6W5xdKwoEJSw0Bz7nj64oC06JGZ46dWufUif8B6sOpQsp+OtR8A+ Nidx5sMb978DBPbWGAFfl8g8XF58w0ADHZguAiQnpMLShvd0xDBzfEQ8oG2O2ssF8PWCMfqs/Ez/ rKjV4iyC6R/Emo+DVraz1mf5i/dEQut6xWE+n6g5UiNqQ4CsaPI/ 3yHQt34zriKmJkbKo3s4Gmjc0kgmjatshxWJUqmNsFGO9lQ73r9UNL+ 78XCjQwDCiNOfjEcZXw1mRiXZJUoKap5xqHAYqS0LXwFsIuE2itb1oDmIBypq0wy/ FWhh2COB1QztumiT4ttquJ91wHb/QVhq4vkhvQq2gwY16anrrcXUIKQ9eq7boAz9t+nXnh/UtG/ 3xUg3vXI55l/uQRKN8wbYNg0oGVq196kTmo4wqBc2afCt9nPXisye4io8ilxPGQW2DV2PbH59Kd/ L1t4ewVMYpE5iK73hVxbW3E00Y1iWQ2C1ZnHhiXnQrQCUAbmDs5gEApvwNzNu10cwCh/ WCnJyyNNzwx12vjTLT26A9Qrk84Y24F+ rbRbKhkaIOo9fQ5kyPFJbw2VQarI3Lz0fMhp2h6gYtwYdT3rV339+ SmV32nCGS2Muto6MiSOGFPkH2YfTNg4uDUoV0K0GxyrAUGurZ46fCvOf+ PbrfCY5GkXzN6ZNEUbe4f52xYs3wT1uarALww2vhNuG15/oAqpFkmFmG7hhrcp3oB+0v2gj0/V/ GIdRq3k7ttnuCjKSdq4LT3y7Cw8tMswLJn9L4cwDZt0XJO3czIyaAms1zDrnD27cVN5Ytnk+ cDmmk1nqcVstqQMwltweSBUTj8eHwlLMGYzocnjOs901rcuiL7YjiuanQ2wy3v79MweF1fXDiuYAGdZ2 aZ12oC4tEopgbBj1UziMMmG8jBSUIW7XjOIN1YsZetJ2iMnJp5YuPHbZ +W+1+q29r47x0D+mvv9jjpEfCkA7qu1KXQA8phmxejgM8ag6sDFs7tW0NrzqZaTsY/ j6c0zaKal4Ny72u8bRAGRmI7AU0zQixB1pFq3TgKMlbkXUgU31wvZptvnlVIpXcUunv9d+ B03JpxV4vOB9cR3t99E3cnpq1wjzszsktbAzshEszQqG6ZAWOLodVEaySujKHg+S/O3phjtmnRXcc+ A9G+z+UNnN4Ce/VrzsxNRJKCMt8R2x7U8Jv1mak50K8H/cztRVE2j4AgYw6JLR8exiDbga/ jNwydXnsa4vyOpbHsQxLv6Oj9D4qdeWPLI2Fro4xeaXsIfQN/ mWp78hjTpxFlusXPDjck9g251b2RJXXTveV16z8ne7D4wHK+ e6PIO9Otcl5K6u8Flh1dRgACgQw6myC3q3gND/ FGa6142XcJV7NW06bYd5ag7VaOzxo0Mi5zwVQThzhnbk09qNnjdL1jR3Eac4BCUHTgDERfpd5PtkQ0R8 FqWt6v / bzBuWAXXUWz8t1dKOD2w6Uarjs6UiZThSRuhzcF1IYCK5cqG7rqNczsXsN5a4yykEcnDjbvOrr9yN5Iy b5cn7k2MM3veY7c6JuTVo0Zg2RvIY7K6fmM0otehJ9y4goDZ7kCdBZ /fVo2o2ZUiY76VB/upkgBdM15kWptLwmBq1vmOx60h+lYUdGAh2ntpol1kDP2Uh2euN7a+ PDzjj2eN6ygTntvNJUh3W1jYD1a/2Ztp0s7metTeyXzuGtdr4In8FB7MZaG81sc/ uT1vj5GKuQWfolfDY56xnnyifcWvHC+ iDsrUGbFe1m8iCYElpkqIvi8QkJu5zuC35F1gNpP0rBxZBAb6nhxHUrDOTFMtkvKACEwm96k4z8tnQrd T0cY29S3w4YgE3f9e5sGePx1hzluLY6g9kb +dLVv/hKBwGcujiW2Z7FsUk14jsMx2w2Ma/ TzqwgHH6pGHkgUu4d9ZacJeXCpekexu5AJdU5meKrwXXaT6obxqV/AIt+VHbjpLYzS8Sy57vYKH/ StH1G+ vd3PP5qpr5pNs7Jp2ifU5vdZjx7KXkouS0qZkm0ZusVtAbWb5tHnfflLPa017S6hQ8zqELNvgGhlp6gz JcrjFqvKKqJyS +yi15wO5+AgBRA5D5VW/UguwegKcQZ3dQlHwQpHpEztduviHsOMnxA/ cnli8a0exxaNmu2naCCChWbrB28qaTzk4AmPUvhCUPixknv4hhYKGF7Ycr9xhpS4dAqYG8itXI5xplM7 okky9vWdlJkGgxH99y3G3CWwb8zhaWzj0MfHglkOMKc3fLm8QNKhIoxtdcOT /iCEM0R4tXu+D+Ta6M+ cI5slwBbjwnsoVwQXsk65A7Bj0NE2bKtsIlLL83aVQc4sYzP4DzdyuWA0zl7JAT6BTXWV7adc7vW+ CHqQTXT8cZUoqHYKjU1Zzl+Xs6dixKsIgu2919FLbGNyPkFmTbETzBhrrr+S/mnOMVYp4m0Y+ GWnZ9IhP18joz7RPzVQvYGzlgXbbtVXHjPvOywDPlPYOw267ai7jFVbmW9RL2MRoY3iwqeE+F+E3xI8S +XH6N57fXtmxfbwlrkUueqnB9uKkeyHkIdehzsi69fTvUD2csrP1K31muqqZWcYX0abUgpK7MDIE/h54 / TVx81HCpTveZjM0fspmbY0DiViFYb4XayNkIKdpW0bn8liyRwjHMHMJ8D0ipmLuSRscUv3rAmZVfnwZu K6OG6eOJVhtqJHcqmlCQbblLAhb4vs8baZgqJkJpGfv2iqcaeUzl05X9nB33aWh61j9gQxg +t7m+ WeckePjQqrrowZhwsfwK1rz06JYBj12DZqyR7fSp9pvElxl2zz2LM7v0By0umr3As00ohg7WvkAP/ umbEDwU8Cc8nWl7J7e4RaLWbW9f08lUQJM1hp0Jp3likqTPR+ ptxfna6xOztwInQmx4CNJ5v8ElEekaUomhgenfCL0h+9PUIett0jKTHorbwfkrcKuXtJYlJ6fOhyz+ T19PDchH3Jk4zR6msY5VEvvZ+KAqDwpU7WaQa7Ue6wazq2/ aFz0pRVG8Dl4D4n6RcGt7cteoia3P8HYQcZmNcMmClYs7j3uIgUU4we7TLir0AL0iPKqc6FIraeykXwP dHQwJit9u5wox79a52UZa8vU47phdb79fYHoreGku5zGvp44Z4bpu7jjMwnNVEZ2NqQREg0qHF5 /VPD0+vIT4Bx1etpA8ajfKSzlhe8FlifLRmExTscD9Yzc+ xub1kNy0Xf0TElUN999n7vYtghAcVooqO0sXwguQebpHi2Fq2xJrZgc83JMwwcjw08R4Km5sV6ZjTc2o Tk1c66PoUi7lYjRgngCnV80obo41D4yFO7LMe505YJgO5M9EN +Zbi3k+4Tyu8QsIGG7tEE0OuTyPcPRdKLqDN7LOqwdebGlp8wd4V/ d2VUqNDzJHc4biFGvGmrM79y0U1EstRbfD18JO3f5fzJ69y26Qp+ F7o6m4JeIBRpVoJeemZDSXmTKnnnbSZ8ic45r+ XhA8T2G0Sa0dGjNH0V1irxxyiG7udDcnFk7S1BcSgnxmNuTOy8fuQ0l3+ hyUm8xtNMIKOdA85dghEeJLykKG6+2qJ3ee4bett2Qa7DLvdm3/ qG2p8ZW8l7P77qz5xirIBUFtJ1jvgBFoxyCYg22YTm0icZ2l1Bm5N2kXvNc7hU/DFrY2+ zf9ur0zftadvY7/4Sm/FCVsBu7sFSzF3100fdEaCwg3eFNl6efXVO21fF8Q2jw417AhN6jf/ E6itBpR4n8MHQii0yKYV8plLFfp2QGBG1aJWbFhGKG6vK9mxR4qk5AbTylzu1AToa5nRlqpmmu7/ meTi6+EfZ3aLBgDcXeoQvep3fGnu0G9Lfko2aqTgFIFx7NqljkIJTGhA98shyDV9Fhncf4cu/Uri/ c44FiqCgr3KfA2p554ncb+3tV6wrg9NnXSIEj0TiFred6o+ZKwIXeqZmQdupGwq09TZIRMDO8h/ XVo71oxtQyBr5ar4eluCrLomGgvQDGSZelL+mRzbx3806W/ rW2Aeyh4BvBaV6yN7z9Ts5E23ZgCc3EdxCiVl+ mmUZxxsnnwByNBxb4onKc4phTXc01r8oJ0ayew7xE4RmciQmmhvi5qQU6XfLDtdC5wyJD+ aezhGm2wYbRyDbUkyfjiewMhE0FEpU1ZJD3cHaodB82FdducWm/ Pfy0spZLpUWH31LLgCvOggkJfGxjJangabb51smpnV8O7A4zTGdUoYbkkyhU1K3WobJfvYT0jwP1jDEe jJEHH1oRDqmkCWXD9nRQkhCdP +u9X1c3iJOH9FLrQspaKLCxh19ukqnJE02wZpdcZPKtfcrtvfUKfV8IVV+WPg/wDuT3P03s3S/ DO0EK6K9KWeg7Pethc2wGbJFu8u125ejk0haNIoCyIztbb8R9QFNy3uakKCTlFc9/ yC7K1UkQEf5HP2hLDNePONiqGgmmldJASDVJCZM3xlHvZZw3hs5GWlzIBkHD6PoextrByc0Jkzt22c5u k7dlc +bzLhTOMU0/ M3XFz87v0mRY0ofp1fOsbr9bonirnnuO2sz2YzdLaqtfp0qIiCp5fAxsIQcxQc2zmSGOonq0qEWmrVki hjA2 +EEaRolzX6FyRgfxAQA1DNSlydk/T7poLTIl+Q6baW+jXtrfWk+ oZfs3Hzo5dZubrLs1yZEvRZxSngEn4igeBvI+9T1y8L2mqeR9kvW1V8E+I5bW/ Tj3Z1lnegZ86bLOsTiF0tRQZ6jbhzneCP32z0BROsH4dshUfa591lbK03N/ Cucprr9Z32hIExlPtVOfYXoyCFd2q9EzIpcC5px5xzq5Hnoyg6uyg6IlNV6U0DSXL27xdUbBauCbQpxR aa0WBuvcjY9AAiT0nr00xa1CSGPNkYxKNvNwsqzpRgljSad6wT6czbv0tiB /7Qfj/RdLFl/KyNibmLJ73+/udLUjijMbHK5LywVZAQP7YtLK8RD/ Ker3jrQdqSFuccbLtT8mXa8VG2SOdUjJY9aYRW7vCjy+y4lYsrHPllc+eFd3Yczf/tGUfd/ byarIrdwMEp4kIaHXlGbmho4q4oZ9z7tM5k+8nscZsLAhvue0I3dxiey24qF3QWZxq/ knmSZFsRJwiBNIJUgYeh7qMVWDpzgMFlOLrubGzi1HQaJd33mzuxFBi2cAFXsUOXTrFP9tPThmXEps+ KHTFBR8h3nqQhPAMbDtRsc1ZlHRvSRwWpCOeYsn9zen7SsEm3Sqylw4bb1Lc0wLQni0Sj2nZoStGXqln cKSSa /bIYPu2kdeMb0LTtkNlv4+V3ZBCVfdxwBR1+ 40njqrBVuQNfdxCV7BCtpFYFQo2729v4fgqwLD4uq1h8tBAAFWbNhGxQ7wg8OMkf4qG4khSVle65EXBG kV6ouWQ7vQaAOqIMvEGD9C6c51381EvaNYkJ1NPn0ocXILSW41gHilUoXyqd4OhFxKpL1WfmgefwYKiX QPHFAa6OWQ3IEXED3HgVEyNSVQHM9sXACklf4 +E19U76ha5xe8Av0r4msD1a4zzjrhthhdil1b9OVSkCaFlxC6hNbhHVZkyOBm/ MJlN7hgnAgVGJSpNMDgdjbHKVjXDAllXMj6ZTvwmjldK89LxP6kuzQFgrs9GFNfWxagzvO0OpeSYDFt+ 1xOW8da4vlVTqWnQVZRMCcM7ywaFtUz4JFFHBGgC0uas4UTcaEhs3H9cbqVSWdRd/ wVCvWla549CubjtZL0yoEQPCEtlCGkn6FXv2gWyrppuBe8aqe29503yetJTHvhI8uLe1Y+l9bq/ 4e4S8XjTBnWo3pynpugykhpWgNDP1jAK796JhWkubRMuzwpRsuUeaYoetrzPt4MjLTwqPatou6xxyMVq QHf5qm2jMjhC6moARSkzdCcWygfSTh4vysTSg0wvqGUXqWUO2HLWjGSUSD0wRTqZP0GFLOmml10blt0z 44FuoucMpRMvxk5guunPfql6TYw8cvKYYE30W3omLlIlKqwuwDwQWjyqm5W7p +u/nvqcE+WpzciVlvuvVW/U6Yeom515w+n/ 3BM0QT1bdSbN4loSmQCKnt6NbfNjiR7RbgBnzolsCvye6QkmG1OqocWrVqlHZbOMoxcLlKstJx+ LDEvHDCUhyjOPz5UTCGt8cs303HLtQ3C9HrKlWkcrfzLSjjSGQOJFkVjRMDKZrwwSEtbTNXd6dWuwhmE e9lMDs6CjV /nGZbIFfNA6JTonzfzzZ9GHYBzYyu0iqt5y2L/w7dEovwhmFrl+G/ hSDg885crM0WiZlKaUjxwQ3w0q2errcOdKGI3AF4oiMGdjQ9LDK8SNE6DBUdkHu3nv7WkkeLGOb6EtbP q0vvUwD0gZW1MdFMAMvhOPrYPHUmKmvmHmfiqa0Aj6fGHGFlyPBSP9NXqjCwTWmuvGkuzKIvoOrZGHgu DHXcSSTRT /7ubqKDdeonQlxJbtlZfFxlRW9cRv6ICUJHBLprUCqLAMOmQFsoVxj1tdf+K2y6xZwn2f15yov1vwu/K / 38JlIi8yh5NjRRlLAac5qCSzrzR8yyr0bavyamnZgiYCLXi0sZ25Fe5mDdEQ2hjWXknLAMYnq96nHi9o fAd3wGU47stS6EkRk5Fzvq6wlEbuH0yFsuQpXy26IN3bgVaTGT3vBJvwwsRFKCMTfCzhqgERCEcIZ +0EEiTMYdeSYuuF44qzGpFd4fgAG18KjtTaaTOh0hJfaRnpXQUB7Slz1+1tF2/ 8Dpv85z5mw8wRf4e2DcvyGZ77Un1inNyOuajqfLS9jhQjQeX31oZc0JceYlhPgEgGr0iNXz53C/ L4mXZe4SJtYNA8nILs7ewiGJjawIcYCU4gZmL0cL1MRSGBijP/ ItnGeXJvIuHeiMqPQC5cBylZXWOP8Xz6vvMBH9JVPvoKA/GoRB9JJqkP2bIO4XBuMkNPTgc7iGe/ llpfio5h0opRLOGH9klNkVFga6rMPN0+EB4T6bnFn6jXfxUagsdbcV5/jmnzbaKoljYHAFtLuyp3xcEl +/tq7vpalD8q2b3cJeQOjr1jwI3XWwCzXKAL6hUaLOjfAmr2VUDtMUjyeEs4LmC1p4oCVVH/ d6SFDshBahGTYB15d+ KcnARiO2Z15J4JK01dNSToSCJVXMoYgx1ykSVAy8i4BRuJ6WPqLeeskbWIbC4V8sPzqdj3CqC+ 9wDUu43XDsVElTpLMoORCKcvKAZ1zYQoGN/XZdUjWwlOpLWThHmvvpFO7+ 4890bvH8FGSiWo6SMjpgMuhS9kYovL3e04dla5A0CeCyeah24bhsAWjp9lYPkT03fgtYJWPYXqxfs9Gf NMxp4CeggKnW5uQk7AuzyupIuv9z1xaoCQyjLmdxEEAyEG5PEk8irhZHY8eL8gEi1BY0ajDsB1wdaino cECAI +AzILdZSZEjIMTB/ MMRfjavGzwhAqpXM5EkWTfHYI50ntxg2sexMKzBxfWYQYRt6GvToNG9McTpVXjPoexb77k9Xim+/ bbxuJVeg7be/XRet+ s3y0abpg4OoTGBPCB6fetUJn2qMaTsx9FV2aKtjIOQbRXMMoyIvZw6lOYYHJy9gM2lprmYKjbI1ZKLSz UecAXBYgRSEKvEc7qBfVtaNJz1nEDrpBQ +5wI/qVVdWEHQpjQF8ajwhLDcrT+ TGAQK6QdI5bOQxRIrFwRodrLxqlNvPHYqjHnzYgZqCrapn54eFvrmGyg3EHhF+btfbV/ yWuKJv1fgxe89Y4j5bb/et1BTjLomouysWDs2GxnZFbnmSYraDeZMwRzQE7UtHudb+ yRGaed4vGpnVeoc84nBGJfivmMWFkBhRme4cQTXbkvipDMMYyTx4ij36ZSQPauYCsTDqUJasJSiv6hZa uLVbr7i4EZBrBtqzmFbPnwBOH3hHC812MktncIWmob4 +ey8/gCW32xqoas2z8O/ne9+ 2txzoNwUtpquF9HvmoFuc3fSsQHBsdTKdjqKS3VqwSqdysTtRq4nTrj37NVD4CvsN5no9bzOnDhwUEMb ZQvLvkYf2ryxPEHJUGgDnvTvlkjo8FzhQ8PWECa5Z4T5Mx +ZT1DX6Bby+YCMglSPL+6JMMFVG/vaKyqMaK8VUtvum2U/Jbp+enn/SpKJnk8y5nRoRuOn+/y0Kt/ 1q2T1gyhsmRS3EDQd63wooZjlJ6zSmhzWhzgPwXAHc/ewziOGRXEhBMis/HT+ TgXtyp5zzsHA1XKLYMF9ArcEEMKtOpp7nnseNWV/CYIeh2GE+xxalaeIGmGsXouLvy/O+ 38YK2yUXYDJYzqMX2xqjdlmPEWMjG39MOi4AcmYiK5QirqlD2RftsOCozTAABHY3lFCATikqXFsAdRAW jgkwx100n /Xh4qx5rgSYhBWR22qrqyApyrW8+7yR4zY/Em/ xq2mTsyBxSeSqbbmtEJhPONYfpqpvhXUS0dVTfMLZwPIro3+ 56NUoRqDzqwmmQ3SXelpGG6TzBhvfHEIhL3TjzslC4DFkpvQDhUuPkJRuPNnHp0tmth/ PtL46z4O3JFOn9nBtwiOfizDI1wslKrUHZIIVElQixcwEKPuPIqriclF5f1K/ Z6vdaRP4yIuowhSHlR57BC++ U9qfP6bSaAsAh2yyApFAExjjdHYrK9in7Ihr108zagjaihnBgwPTh77Qn1tV8sJp2pv6pXyz1vekaDDr cjRNgtvW9QK7iANimKDEVUaLoTdkQvbbuXRpZAuRQpUIfQb1t8zphN1eICyMMq1hTF1QlNQhf3RgCxzs Dzig1nk6Zy / u5kDV505och7w61wdfonkx9oUEJr3ZGMPB6Ydhiw06srNPps7H5zfnDWy50GecUpZB6B0ycRXbfEx3mn w4IaWCIPiMIX8crcw0hXFkxt07sqcM9Qd97z2 /8r+8qYEqrj85FG9hyhR52UjuJ4hyv8suJOv2s65qxbq5jBseuJMXW1ynln76+L/ XA1wnkscGTEWedaJORExlzsy0gnX1jaqbavYp1b1yFVXYWTxBadLKrKVhSw3AvE+ 0XBMvh1J3PwFhodjmEWXngg39K8RaCjuojnHwYAhFAldcM4UkMsVRZ+8v6cKeUMA3t+ QdScwFpXSKaYYi7cEOE7HSeuRqPeYtWEElt2bnUHKsKrbljDtfoj3/R2VZb2k1UWmbwdk8/ O7DA9b1JG48yt+ Y2uGxsAveN3tPoea5RraLmjffVOBLEiBEAWDVEQ0zueBlbZmKriRUuzeSc07abdbsxTm9R0sDtV9rUMP 3pQiKW1lmVnFK /nDanZYihgPpwgciQeGSajrTkW1EsGPlsXmglg4dMzW3YCVSOT0oqrUnflsiTYwkQP2uGkIl+ hkjvg7iyVmqxaAffaBq1sCLItQqDWjmkNWGLev5V4lY4T0lfv147P54ZT6Vp12ALzsaxTwc6bldGnX6c bd93 /fSE5irFFbHTpqLmZ7uXQqz0zWhaiRHJ9cTTkX8JR2qOVrb0cjUrX8+ 7qwzHyHxSMeKGocLQGCFQODbnBJVbiYZXqzT75T77QjnNaSAOav1An8qJkVrrsrPMI6pYgVaKUNiidDD 7VI0E7zs8mf /E/TrD+1LCOymtIdNElqbpbhYmkm+ hHx0Q7VAIq5eEEcEMtItIQIwZiLhFbu8Lv2D816pa33aixK9VvX2lSYIUNkmK37n8t4HK27jolZKS8b5 ox1cR0CAqO72gaUEJZIPe + AOkM3tjdLz5AtztbETmcb1H5tBu7pYmAjJ70qRJw9xQGTMvYReEyhQSFJ48L3SpZIxEsIU1fxsgWsafI 5io7WrXul4fsU00CgSkQnJfvb3UTC2bhhMnpK3nkGSl3nbstr30H2zgMZpkpUmc +MGdRcD8VLOhAyMvHrWDuZzSsiecru1IsJvQ0gJ2MqjWncf9uyLA7dLkkverAfIsc/scjq5k1Cc0hT+ 5ZoMnVaOlG9GBEGdmWDzAYIppFJ4zTabJsShoID+44Nzfvo7kot7ljbR5EJD9Po+ vtaGRkiSAlxYSOAUU5NQOHX7zUEXmLP5MLKms3zj31dRupj+ 3mFccVPVy7uzcP3ArIZwYn9ebCErjcp0GXvEbkp9V5lpsGzSiIehU7Uxy7145Tty7JqhBe58Ga2LT9V8 WwpUHeMXWxT7otOXJPkV4w /LI2gW6U9C64GJ9AZbieRKxM1sbJijsDYC5RKfQTIEVQbMPO8Us+ 5W98B9lCn2EkCnk8DfPTbuqLAF6sIZsoDm6B2p0PjaCqlkA95KPbWR8dxvloFAr1fnlcOgUBotCcP6g/ v83gJ6KqMrbcgzKIoydI9i0u8kr8mNzVdee1cf2YwnA+t2DjRBkiys9rza1U2LX4V1dXdgUBj3rQumVd /e+zcw/ KPz7rHKjn3CyJ2o7PbyiThth5t0kTTO6X3XVI4Ub9p2rShncN4wIYrfAUAzkso7nLAK84jUU1cQBaNFI rWs3OqYSylZRkXjvlUhK + 5V5WqXB0633tqOEfuWEhDnMQW7hzb0xlhRyDbLW0NOGjQx5i4ubvF2tLXHLzZl8ZFLNoHA6JlsgNWkdt AhpOC62XGv9OOriJ +5uG6uxIYt45I4spun5YyqI2k4c4ZrmTTPDwE6N0HmWOyZYGBhXCt5qWJImy6jk6cH/ cPwzNolbHA27S8qnbIqOPQo3DgciiyXk4Xwrwss1fcqtAUqB1NcJkxptiX8ZheZFi6JiltrS1eJqMogV SgO0zFUJC3FwWkZRYsXo /PpgxUE91CtbkXRbgFByjEnorg9lFkG1ea76GpQ58PE2r/HMx8kokhS7U0+ tlkvbSnHDzNhVDpRayHuEwyWwafrUNDvjpL0xcn0p59pBw1A9onE5x52WE8p8fspgP66w1s391hp2xjw dFbFFKtnKNbXVuFKdxiargM2fWwBjEahYeLAC76JWH1RsEkAuIUB9tQ +UDy0nUO22haNnEQEeSPFdM1lnvkLt+ PkL8pZUeFbYrzslYZNHZtyf21Lh69yhMraoZdFDTyoYHiRT2EhsyjGqDIAFyZAt4khbuz06W7S14Wd3a sICGZnVbVH42t1vmxn92B0994BzvpXD16KQn3GDusVKqHfQPOKOw161VGYI8Y1o67aT3Hhj1YTJjjzsj yajwxYAxCouNrqrvzjJww4wibWFhPcJtOBQk9oLZkiU lAuoEMMto0nji7bHkI3WjLpD9/u5prpE7H7VZB9eDamHvwtKkduJ0dg0ijB23OG/ D0Sa1bw1zpNHWPxvv116i1fHXnm2UJycILp6Yxz0z55PzGFx8ZGfGCXxBHcNBisA0xbyCUFSJu8ZIsdU FVVbb1Z6s7wJugMBT48aWDOKnaXQ1yg3p1Od34NhHkySKNSwzeTnFOq1A2PZg070JO1xHBjTkfhwHzzN kzQSDiouPpRvAFatktvFBd6xzf1spzy4 /VxeQzlMSU1OG5iPrvz7t155/ zXpyN0BIItXAiaczpP249GEt387clOPuHlPHODhvGoOzby9QtIp3PVPZU4Ax6T+ J7r8H4gS4877piriiOyhb1MvvUAHkvR7Yr7re1eiJDuQSEcDNfg3BnJFnYip9aPGiTpGa5FXUZyOLlzX ItVA2VAkvG0D3wWyEETksiCdluTqnOBz3GqpuDjkNnvrqFCQXHjNZcoX4uAlfMQRUMAt7rfv1sM8 pA3z22ihyK9j+X2IamFvFUJsPIvo1oLlxfxdnr2/aTa82oB09xa+ 2dcGqktc5BpQ4AdQ0VQEVY1tscpwrpb4cYGIBZtIzjir6UNShR/ AJ3nTN8Y24arTOXplo2yOXvE7MjPG55q/bkKCQjoR51gu9HddZWg34E4qOucQ+ GEU2r9ntxwl5S3QPwJ7hNNtbHj1sxOfeHAO4ubQcuVlHzecsGr3J/5y+JeiS/Ff4anx+ xl5fyI7eOPkvLVea0TozAwVF+J2qb3PNFIhNiRexUbhgRhVq/ mt3ixF3nuBgPvUU8698oY581f9diZBdJEl4TRf+ ytDGeUj2p76gfpvvGAQx1z1mY1gf9bmwBPQToHDO4N25vx83ix8MGqwZpBF7ZPYiaEgqQCoBYMlRYB7O 8LcAh0Psxp4zLEu0ax04KT840k0SmkvZDVakJbp5sXHR1Tw2ggQUYP0mDsWmuJD9 /8Qix6w1+9zb3Frf1dhreqXIvEnnlDrUUcbsmuWWXV5GdIjVstTask1/ H4HwyEeyzGdhpCsaMqLmOqI9AK4kXQbRFHCr4USpUqDf8SZakVjUpdPq2maNlCAzNTviu5glmdlrnwk/ wDg/cBHvaOh3sEsMNLdN2Ssm4xgcLPrQiadN6JmwvORixqFtOxCNCzM/wAS/ PvcQDpDkwp38EXpUVgApFJj2O6BwZ5dIlVo1Xq4uejyJeEpgO1SG18fxyVuUa62voEyV47Xowi0W/ JDlZdDIqnrGgXzvKjHD0fcl4o7i0E0hiXApj341x0xlQvhzC5zSlZfbfp3LboEhkA1p370R5Lg6J4mad 4g8xvCk2cyDLc4ayRyGOzs4d +DawvUbNqkX28DVVe+kVNBOw5ouzPBr6AfkiJQigPsr9j7+5l7ATWA92a+En08xsHm8wFqRo//AGgdO+ S1msR5mfKau1PSuHl+wip0f9C7+j3gv9Z1p8eJxUE0pqZ4z9nfj3TZE+r2bM50+ Tvck94anIzGJeJ622ja4ABxWQ7cps61Bros3898L7JePRqqgNuKuaO3t5ITaSyQxYWeZTcwuGY6Vm2iS oGp1x1Go6bEmjaKmjA6zQBSCzsOeIBide +0UgKkQP1Kp77R5dd4xJuKQSOmTqLkR0B0ZSs2Jm7FWf23+Dlro+ wP3M6uMilzDSCnxQuhbhvZlJ43mRDAH3q09tbTtoLAO7zSjdWSsH/ rBoVxD2MSODJGCZFLEcyvEjsg0GkGCeh2h6uUh6mWvR1YTW6k4yNTsBo9MsughJRUMiJs9KbgkOpd1cx UwpW4IaCPT1dO9ghj0Mx8JhE5IpExFPPzOsh9i /MleRFKSYeQ/X9kMKkqC7LktUQZhmR/kxH1S8QI+ 8Gv8s4kJZdrc9GLFhYYOLdiCpUe8ekPIk67Viie2Wsqn+VWtaRKfiRr+iaUjLAfEOqraJAnmrFavI0/ lonH+lS5mYoR6GTPsHMNqJBe0GDtbOwlZ17q1xMTcfbi+ N2ki2LmyVKxgTWQkH2oshb3qskemtDnWWOAGKQ7m7z+TTETDf4GkrZ00I2mrszN7mSz2j5s/ mZ6o6yzTnhM0iIHTtSxItYNETz0MpIvI04yq11sQSimUySDx2nVUDpOzEXKqBQICMYCcHUM8lIJnWvqq NffPEqdGEr ++hkUIIe9r0RZx7P83I6wKq/XRhFz4RJyy0mtKMly0ShhCh+9tjek+H+r+ BDX9Aq6S99E4smffmfxjaJ3VFe6yHYh0FmspTGN83cjiza7sEJVE5m54ViiV7ZtiAi+ CaJROumfqY2UX6o0y8tTPF6mnwQq357nqxLLEGvra4tEIhRM6PijjGY+mzerf8d/ VaPgmlkDhZkxc9Hlz2h1lfsq7gGhaLkAB9+G9vp+Yhf3Gk+ QdNsAV0Q2qSuQXvm2Sjn3FhKdkoxo4aEJ6onQ1Xj5G/L/AMTvCPhLSvFvi/pq2rq8DW/ Bxvzmg3x6zcCPo3tHaVsA+usrUoQjAyV363p/23YkDxJb+ eFE3cyz5kRzKmcLQIEtIlonvLq0JLmhStBUNucJWQHtiQiwVa2PDHy7aTDv884mtPTrw6ynU18e3Hkbv ftDeIvAGs /FG+tRJHwcfO088YXNt/QhO6OzCqDgL+F9TkfQ/A9MxlB3sHGcK/ 2jP9wiwu84vcPDsN4NgXZSfuRM1eq+x5qxmcJEqfOQew7uT3nZ4DW4dk71DxkRMo2OBF9i37nK0wgUl+ qZgNnss9Nv2idx9rhVnc71g3wjyYo6O8Y/woybxTqUetQ+Lp/Gv9j+ DvgoEiaWgtUM08s6uiyIlITHfletz3q8AtgqgNk0VGN1Z6sny4C0N/ioiw0bMV+Adn3WM1Tq+ZL3MMK5 /DkXUY73tq+VfQ1u71p75sMKJuc5Wq8Ixz3J0KrktpFz9eycqq+ RlrsAB52mrk5ys0t1aGAKaOVT3bFm8sqPhClyw0ri6WaJE2jTl0jvhKsGN1byUT49owoBxKPoPmvWWQy QOa4EkZwR0DybvLLPxiCt4u5z3900h4 +NmcYu8Vg+Jnre9G2Ha82W/CXSyIIU+FWhIbW6V9X+HEv/AA/pMWsz+ IaG0XQEqcR0G1rO3MuwF12G1kuXBAxfNj4Bd+Ct8PjX4yAvTriz/ ZjTDuBYrlXGszDXs7ObfciHvnwVo24qmFFLInyyL99ZrlwzlC9oSBcGdmffDfYyPfDnlMlCsr0Z/ac/ Hu8G4K59Ciq97HQTAc7OT7DPC8cmxa436V4u8DEjyzpSekOH8a8+Cda76v0EfI+GmiQ+IJ4td+Fus+ L4M1986GTCpfAcKupdgdrs+DW+KRzQfdf74vfe4GrV4YfpCmvv1g1g9hEa5852zXxFMKi7C0TTNiJF4b / hCcqB43H5hOZnPHmS7zhNj1BskCjfqpzuHfPd6Jf9FJyyLqW5S82x9gx5yaq5o9ZvGjHIPysyByZ5wOE zHSM4phpiAhSPgVLuJtA2p9gSv38ukbe0y6e6G +enLzvwJJO1M7cSXFNo7+t9Buw3ozhIpQENjs6AwZSTgvd5BoqBWLvjcE0PSSvwC4H6Y/Au6+J/i/ jDI4ZUmbxRjLW/iT4x8W+ JEE2fVVN2bqXsFh7oSxMf8T1riKw5j3kt38FaZ3ckuRmUnfeKtOTvi7nmyDflKsg8ppnugz4jxbayQbb WwfcR63ZrGqHgphbtixCnF9 /p7noDeIHelMqBxtdnsBNO+MtyGj87sBmBLd+VfmXxH6bs2a2tq5J1o9pQwA/c8aK3RV40569L+ MrUis8t4W5KWuQT5d2k9QInGpymg/8AZ09r/ G1gWK2bVF8yhIcbtosAi3UuJvE07N8UWSIbCNiCMg0RVkapYEVQZOgi8sJVSQ4wfODzlk7pon7sD9bON X +t10PjwuzV1btHeCr8eJlkWAyd2r21O3ImzCkR8t/AfZgdQ5A1B+Uotch0e7g/ 0Fau92yLkzHsCZVKgE8kB4u9J2/YhMwlf8awWB3w/uNMs8WzI6n7BYFnQfmS9ZKKamHev/JGHFtL5l+ W9o18679Ht8xVFjY4Nd1RRixTnh4HQh+xcxMBs2dyXltmh5m+VoA3aV0soFzfkk18wY7dzlo548U+ QbM3ecx85alK7TgRxZ8n8GHtvHfmbSt07i1n11v4a+Gr/vKYOhr322h5I+ IslL977sPzIhbKavYrRb9IXCsxja24Ful0Me8eyXaRpC17apTlfspIcm5i18+orbG+kuYEsfZ/ EJPioh88K/q96JTIEany64O+NHg/xbqq+U8an0aM3GpyTo1wE1c4C6U8A5ys62p2Xg98Zhd/ 7WIQkHqyL3BV+JPD+ iNjwp7ym61w1bRswqRlQomkLYL7U5n6ziWd4BO1io335bn6j8OZOqo4hiZv7dacrAjDRv9ANBQgJkuLd f4cYbEmaQyDjrAibhQuwiQUmAxfLe1Y7kie26GnnO +zNFe+IgMK210/AGX/ZVafRpjd7TdJua5jg+ FndT9T0T747hvc6O31DrWHIWBURd2a7X3LFvLa50slHiXq+Ebi8mzzf+l4vqSrddHhC/ nv1gmmX9qgGcXoXamwOKqkXFPqkIO3nSUBq4JZVHUXiyDomeIWxx7vM8/0O3WNd/ 89509l91851Mvt8z5aaY/LBuxIdV0Cq2LUvUx/QBo2T96vjCjxoYqzlZbOXwvG+ oBX0YG4Z4eaU606sjDJH10W+XdWdn9pmj2WnuoElak92PVxJMhWiu2UwNeyA2iuG/ XtPEsCeVTroDUBs1u6vf4mGXTzkwL0ZF6CKLuef2DPwBHkbvIvHZ53YCKNFfJyOw8woGGPiX1YkD15Qm JXcaUM2kWiDUsNXGEDnBj8YYs7rMjkstjWq3qZ7u6BINhgNWe81ee6Qoux3nk /lPU1uOdd4t1c0ZOkBH8XzMKZT65V7njqtrbqkE9IlR2r+B/ X5pEoe8mlcgaHf5YeMfoZ3Y7u4jnoMCybZ0MY6M4sdzEJNdW9hcjK9a2bzN9vuMVN5pXEf/ YwWAzQZsPqqhFVtq6TY1LvoBknZnrvNNoiwRSS/cJpsTexj8TMdEvMaB61/ mq5pb2KB2UcUyoKftmnxz7U6u4D2Xeoaeyte4A+z8RqirbuR6geUBYAwGjv3rL3o16/ rwUrQzRy2bgEtFAl54gi6VwMsBD8brA7Iq9zRw2DWLCDMo+ fqZk4BnKTrrnvZswcvASaRWQ6B1aoMwqPWh+ O41QjXQbI2099IX604D1ZxBSZmM3lQ5GxcLczHzkfCpsEv3NifNP4jFt3czh9koqEyKJ4a9lMUjIyC3W T9xynj3k564ac6YVbrg4wfVetOc9hNVlyZ05a /bHIIT9KPwaOyPaJNcRijhDOOazPRbMqp+0WtfJ/xgVgzpn88/ qWCGtj3324Lx7M9izBaJ7ao2h6oA5dzx2vCPzGa1hZN2tv4wGjSle4jgb8JVCBxw/gi677A/ 8eLPgrUCt2rOI06CDIbPAUqEbD2CSFURswVSI75tgvfzb/ cAdb2Hc6PJjeQm46QEdjNbj98s2YNbvAFbzy9B0gqEL+3hOjTlCUfdcpKzbve+ djpta8gm360IkFQtLheaC77v/u5bOw/tl/ P68qWbV9OkMmlDY94Ysy8p61vc5i2rk4kVhL90lhMebnRxgS2/ s6bqL2GtA0E7Gww1dfQPh6B1uTM6ebySns63OSJW45jI7DowJ/h5I2wTkdSO4sM/IgtL/ AyEJXzYiw9FsA7NnarLrJN7pFViQdDKJYI2aLqu2oD0992K5P84ieoasPQSKC8FjYM3ljiXuSAGYRE2q 3IafUxWxNdtjz5l + M54yllfF9i735rHhwbt7DhA2LlfHMFS5dTT8Juyuzp4Hh5tCcbIZOQZk8kKS6mbTwnpsYYsqttdvba1u V +2zstTQIxZBlDsJfVHvfFYxpqpUj7wvxsbbgO7hcBIjI4B1ieh3p3KYmCrcm6iYV/ qCO9fJ1jcBmfjnRCxWrDsRzsTaT95p3N9X0xurutb5uscyMwCUweYKTYTMIIIgjmY7ColHDm6CgR8VzE ZdIbV7 /GCL8Ayw72UOeRnTyH7kSqifI35vH241+ Xi9rzF82kytQ5jXfe1moyLqnj6ikKILhckDR3zernAo5hvLyTwkUEYAd1d48TtN0Xs+ j3HIbaks1Bwi5n5W6r7vZouxehC8Sztdo1cb1xjTfI6KpoTViqSLRBfl6U5C14J/ pUNa3P81xLTk4VMVwja8LnQxnb0Cha6ebw4117muUMT1qqM4Pq0RyZHGktVUmEpUY+ 09k4bcmLNhZH3dvG+jvK+ jPKaruB0Fmn5dGKI6CiGj2T14xH2spwlmBRyCu1qgmRcz0Ugd8LaH7e3AwZTiKmEcP8lxAB3z0uvM8rx VlXiK7lsj5UKVHmaU3lrFQL0w2wem0W +lNdQXVxDJbpCsY/oLlPf8Q+R7m8n8NcgOy4ki7BNvHbokyqPo1B9s8I/ WnmzT3afx3J6w1ZakiYlMqF0yV1/ P4w8xjHuvbZsbi85L3x2blIPi0p8TMYXhCYsdWfDFzdEi6rwA32yVcoHk0fuIKwhkfv85EogmgGGVoxI 5vvXYCfFqJF5dqC9cb0NK1Jo4s2f7yJ3tHmln6ht55i3jvAMW2ogvzzIJVZpOeFSmxZMj6hQC6ebgpb4 5LtrPNfrheQYFf9iGXv4wEoIkU5 +Tm4x1DnMeOM/ n2vr26JC4gxQz1GbWqrzogFNu824dZTMJLaqKIS4dBMeJhDH21KO1Or1ItQ7Z0Pw4wlDcz8JQnX2gI1r T5GqL88adV75XiimZshzJP5GrF8cfZuBYhdTwaPJwMBC4iIrJQ3reQX +F8K/BnTtfu28S2uy3vDVFUyP2A+ y8BcJpYeGtzElWzjNwBfyVbpOyWxhFZ0bbHNhltjebjqyvCP9ydAwwC0w5J89LZKP0B73SWfckT2qN3f o407mlVkRtCwfkmFuGlekA3pPXodctOoU5L4ggASnG7fl8RVI1J7 ++KvoTGsIIX41C+G7r9rwrbAJD/ mPLqfJxkITh89e8qiT94JMSM1zUxI19i7ahuWtF17r3szftC6DuP1K4nGe8pTte1aHqFA5vx+2l/ 5l6VZ6VAcoPZfkAbIdTUcCOqbDdVfZ5OBWYEEJRw+qEZ11nh5TeM3ik23RH4dx+ LQVlZWcT23EmQFXjKY5VSzxSsruTvlz7V9BtxHa7Qp3ogkIjvvRtMqJGo6Kxq/ x25M5YqDJYtoGyPhhiExC2FBn7M+ f3cp094NAo53662wIsjlMubspg6wwxCStMo241wZ7abk13Ohjkz3f4IhTk+3+C6+ BKfrKktQ8Y9E9Oxi1W/HTAN8wiA312g4VlACusdrRzB3iQJrQ9uo7mGPIb6sSk+ UiQoEIj2YmY6nxl5L1IqaZk7wmXFvqta6eunr8KwOtmxXHOBy73glXjf2r6W20jpN0xuXGJCcsEGggEh Ovq40KOwA90E /vYoc89S1p0Eyf/Y6lxMzXh+h+ xQiI56rOyYdaV3jMVx2FKyayI5htrHUeZMh3WKL42r8c1v1hZo808pNNeZcCe5c5oepsmdzIlwCrb+ 0GIZbiHSpgbRSE4u4QUomlKEh4+ U5p2IJgg3nNjVV8yCtBvE5vwN4NzBiwrNHOrQ9O116ZtBE1nHalEswmbshj3w74FT6GmKkbuoLetO9up 1XzwmEX26EM1GrhW1kqzaOWKXu16A +DQy4B7cOzn4P+HNyzcrByqhEHCTlmVzlfH5DuUpwtcApEgoBNV2Jxos7cGlYdk7A7uaHJ7RhhU9nIlR + R99234Gjm6p0Dj0GkUGO8QfQQpDlXb50DG0N48G3zKi0A3cA8tol2hcDsjEuoJbwXfj5oy3ig982KWso C8ak2djupG77DNHzaiRnwdkgBgaUI8Te5eODM7NCadxLEvCvMFjFoXToGGQzlKwwBfmFsa9GV +zVRWXKmm+T7Md9OpXdpP6A9HM20gn3l6k2qckePrwQ11DuM3gL83oMWV8xcHHI98yZavdE0oo+ 8sUlPFGT6zx3zRn8mv/ p2bRnE0U0Y8lkPXwdVa1gT5tGNt8QBEcDifHiswlKdGXijCtu4zT04G8C3ssGq9UiFgR5hgx7Bmak2he wbq +sz+K/NikHCioLovRvIgV64yPwZfd2Pfeg65QOUdMqsP2piltQ86FxNspOxWHkFqU+T9N+ Xvy3o9JljQ2LTniuEmT/r+lNRmofHunLh0sJkY5w2utM8v26AQJ+ RxkM95ajfhtwcUGA3khctw9LmQX75IVeejBQGEXsEJlTPlikf05K1c7DLih967tNdrJ6VDEzJwiwYZYU e1iIyU4pceCiSy9KlPKEOPgl9UWl20UDolfIrlhWo +fglL1J3HDfABbefbiVzMVCdsPywP2YnPY9im2JuEdcavwfZRBC1EqyQYfOlIQw0xRPo/GP4c/D/ r68VmBJvRTC9H8X3sL6/8YjsPZuJ2aC2417+i4rlziq6IzCXMpDkO5ShJEvaRYwuWaoFEKxyNY+ yUXxH044OatKDiXgt6AQbJ+ 1KibP9sRp6irhjYZMkhIIdtIFk1r3eaP1iQzwYE3oAnxJrtMpjpFHO1kQAia9/ yc1SFrGgr4VyNeRxLdQ7zSZmfCO3qYmfFLhT6EeldnQocuyXHUyF9yuvQjYkaqbesFiujwnx6gntP77r 148oyOCei13HmsDFuSubtQWFRii5c30HWKkle3xuht3zrKbhEfZ /BWXxZoVzrsXjKLxBdabYXcL+NRpiMllhIhgP8uw610oeWB4gufbp9BmWw3gnTagX6iLiYZGywC+ WmyZ3r74N8z0B9D7R+ZmZ4F1OquWvdsfRoc0n1ysFlou4MPgoNovyHgVHCDc5tEMz6mxyhJnDDu6BcE/ gJb+UKaOWhV5vu76Hcv0fWghz0IvTWZRYPilq63pa32ia5UJnJXXXIK+vbydL8j+B0xWOim5r/4U/ ylkA1cKvhsjj5kpiedwC3f4D4Jnz6hrpAuyp2C3c/ 1cEBZiSK9HKKznZx8nJE4QdtEAuIL9fOlYt4BOeQzlf9PNCec80t0Yxbsj7k7MJWMLfeRlqwebKbysZ4 mviFe5NJjkGph4R76MlWe1wHhaaPPxkVuVq8JbyOyVv28r0Vmnjg4kgsDExU3ehPaOs3md6Rpx1oiZQY r2aC +XdcspryRCQgE26GsbYGCAZqchAAFUG5l+MDnf8XUwN/lvDaqKBKelXelN94Z8k07/ Mjll6wIyqJ50WwKYLgWRP1eNaO2H9RcqZTrluag2KYsvHVwS8/ Yxy5Rc9lnyF8VQXl1Tj7AyiF2k0vR6SfF1famnn3PStTqJYJpMeCTi4GFFUnfvuPz636J2Tfcr8vssM1 D6Df +Htc+ sNATyGq0dnm76SnCQn1rCOgoQajrqj5tfsIdxyDbf9mqohYhr5j1sjrT4s8vIydUcX3AA992HwUd+ efWhSzBJCn4rb4ELlzmLNkfqKeLIES9a8ylpJofNrj5fVSlh0+C1T5SD9K0wH1Umt/ aQvS73jV57H6RwXztpsrZKoflV9qpqyl1Gx3V318ZD+e4a/RakAwJEXG3YhFhrTQ78zqc7Q/AN/ bH19K6lfZnpyV3aD0qoowrjgEov5Z7A0pRNccJ919YsvLPGH7bvVAl3UbKELtR78zD4/e57UncJHpf/ cOn4Ob04wY4h5Cvv2psIJJ77858LN65lLgiq9mrINym237xBiDr3aSzsRdqqwv5nW2hqQ1ZxTBgt00+ 0HgO5INs0WFm25vRMNF+ y9VUnLXMqBw8bKpiVlmrX49g962HCQbQpneMe66qTaucJo8oz8u5T0xOzxurC4whDBdXyRGBcsxxkb+ D3SSy0QJ3wpL59l2iG+Aph5yfycM6j3/hbk0KzoG+Ru8uzPheuBo4B8/MtHDXg3x4y+ iTCLQ4tayvurmdr9SR8KZN7h4GmMot6w1ZCIj+LcO69CWT/zGbo6pE9utu8aeh6sd5Nye/ V8E9kUyyXAMDqeB5yd3476sLz1n1ofIbidG2E7P76n45/wAQ/NYcC6ujq1fqKXnP+ moZnzJ26oB0HrkuGTepM0G95hXrYjVNiF0J7btV8D+m4XGLHh8L+ C9hVtqgLI8t7EYC9Q5NQVwPOXLUt3DNy888orCu5khuF32auu992ndzEbfxNPGWOzgJYM2rw/ MVKP65f9srJv2+W94N0xieOzihtxihZiyOAba3Tg46UU1/S4I1J9TkL3Bj0mdbGtntxt0z6sQ8Ey2/ WqJJn3DBEv5M5v7rf498ttd/abeyhfARC8FUQvSJxsLWOdpo+aNAU0a9SnMUfHuxq2nUxc69fgPwj+ xub2J2w9luseQIQ9MwtNh9HCh3obeR6TqxzCWCx7L3jO6z3JaP6413PWV+HLq5+ s6plz2ewx9g4twFmStC37ODfkqW2mcK6dgsvpapok9+f8zUrr2OPAGlPVz81sy26q7I0+ o1z7y4PydbEbWL914kINL0jKk2tDad9Clm0YPe7iuZiERnXCM6X8VTVkiOKaoKbVZp/Nta2/ rmOBqbckOENJQzHnAMYVRuqghzbmt2cMhraxcus+9iJ5Je6mnIsckm2n/ AYGehJpe2FvZtlmYRH6mIykyaCGeNGsrymiqtjaQ0nZ2jMPnm03p/ IuJXRYu0bueachJa3YDkBwfY8nl6I3gdXw6rqUftZYIV3VMT8b6UtXf0+ 8oolVf3qiHL9gpMhAI82OCzaP7YtNG/D/ iwpXYpp6hqmC2KAtdTAyv0p3JvHsgPyOsbi2nogOgAnMVWq3yICYo1Jnso2JiAeE6uvT6y9A3AgzZ4uh b7xJb +VqX0XGIAoN8ZRgL79NQoN05KOQpDksrb0KJRHhaS5Fpbd9x/wdRhyCzMPHEAv2yP7r77sJ47I1/ bd2eqgg+ZxbWVQl3TB9UTZak4T+ Zo3XA21j94463DWI5yK1ya6fHoFGu9bnU5UM5Q79hlyIBt9JmF55twAmtIuu1fRAK7xzN6QMg4M9rSgV mbt /Anhnwnrc+yEZlv5vl/YquEqquTVbTjkwV3veadmb2FH8ORTcHM75caPm/dXuGWaBXZRXz/APEz4L+ VLYk5upZR4pqIw04y+ oV52SKAY9fr57bd201TenonBCrZfMKeX6uFeltkHN7pfSBRiZKduMJis8YIUY937odFYlOmibnqZt7eB puZrkA0uXy20INDXG3SyznyX1zpABcNVSun9qMyodlXCA12x0dwK5pRj /n1s91tk1ypy8OXXVlPeEQEyg2spDEvNj0CMGIh3mw+ sWjvs6PucfnK38JefVWPPPpigGYstDyo1uJn8G0tF6q6YBXl7CYKZo8XsI7oRsqFAeJbS5ij7xfqp3q5 aOBwLcufITOk81ljiufTQCT0MNyinGUuoeBPnFBn70XybeT5QrLXgaj0oBd00bY5NIXqfgOdTcwUJ1VA ucrsHc55a3kUudmeAZyrLAauQ1mJvaCWHGOSCbbvshqO8BmJIL /gycBTrH3b+nxIz6anTIKGPdnLiDBheBCCDKF/ BSndkxT7ZCZWpczJszHLfg2wPS8CyhTWF3Bx3prwsldmbrvrKkaDREfflUwwHVtfBarQY/ kNc4g1jagsLVMPr5UPDpCJhWj/COb8kdpGCZ4jesc1/r7z+bx0dLCtGx+y7T5B9oen/kFAvP21ZdmfUr + xvZVcTefRscAkb4mD6DQRIJcmDqhoq5qjYS59Xokhb71yI7jmlErKWX2W5h3udKBGJTk7ehup2jiIKp2 Wumim1TgvSyjqaQ9zy9bMyoQJZYD6QAAVRVoRD9IBDfILEWow6 /UpNeaHHbeSdR3GnpXN1tQquFLC1zCPmbPYCeL6jrdP24+8Y7ear3w+ VgjjsX1bEbWJVn4myUdwmry710SRe526dLRnWmVEsZ+ SqU9IvFpJ7v77IuYVPFpYnqdEOGKuVGYFtKMLSIVrUAvp9kqyr4PyiHR5BmPRmffRmgnUFY0XbUXRrUs 4 /zSAmR5bWpqXusEhAuU+XG/ zLHoMhNVGUWYSsDNBJe3yk7zMnbgRlhZIm2iqJ8wqn1UFZsYqadNLDUs5CAZEHmxM/ v9w2i7dm53iqw48/qwgDuB7Hg99g+enW9/ t1a2Kkt1704bTEV6eIlJJVzAdRRrttpYDuxuLeeTqHmVZzGsknz6ixG8U+ sMZotiij3WNqETZlnL3pjglzsi3ZVh+WyrHePNjnTmedy1sL4iF7xDMq3TVsgmaOCWIIoSSKm0Z/ nLRDqOd85LxGkrUAJRJJ4ha4FlNjnEvJFRTuerjogIbNNu5bUiqZGz1tMUfaBnuR50kszyr5CLCym821 WemrXl /O549zjXvWPb5Pg75V37cWzAqEbT0p6PdEsOHxYxXHPYMYEml1aSILweWOmUxcot/ 2dNBaHSzJHPvliCafaw+EPqTYPEZGQNYIi9AKlke73e9dCAZtlCrFq+ SgLt2tHVxNaC0nMYsIJaHvf3cltrrQERH46+ NvqmgxN8T4niagTPlOZcLJX5y0AxEC7hQZcrizzMETCV0hECTpS+VUwHZN+AlXzumakWmq968/ lD6Bi8xpgR9nk+S6vSGJqVf6038W/ Bx2S80bciTT4KcJ3373BfBlDO4hnC6ndojEuvgFMZYB863S6zvhORh7x0gRoN5m8MRwAYpC4fmeYHEgJ IrqDUwRk4iuyeHBWKbidTzpprcIJDbN0oCgXi9unXOUHrhDGggmPyAcsIR2jmbK5EXz84VfFXEB3uspX 2QOa9lp /WbHRR6Oi67pnPpjFfYfxZOoqjxuJwjDh7nIp1rp7mu538bw6MpitIVJZjCShBAhU7Is7V4nqntxSA4/ jZHhZapbXSYzA71aCWkRvtgNWB71ehOAUZoFHFrPxmfUqFV5rnpoQbHijEcb1CWyyFCc5wUZ0zm624EB QpNRn5khxMTsZ9B9gvoXpfC3qCqP7hulX0BunTmKxlHMACPvjLKTTpfIuWJR96HS /YzPNd+PPo3sofU0706zhGhkPx48mto27DLQlAlOcJy1frkCzs6SLx+cfh3tiEOinOomil+ P8fm55di3t895b+V/E9Nba+ lnmnJkALdX6LFKnCaOWQNrdljuF8L3lILFwpdOdknEJfUWyZEANYtL5Dt5EtIbPZymIzU4ahXYJCFXqx MUwCGGZcxSyKjbomIjYFfMFK + 4N2xwSfiQi7th7wQOBc9HjCJaEFRFAmgb4EjnBtlQel3pMYiRlqZJuvoxZAUc9FDKB7CqbnXdrmBNnp0 DlXQlHKQ9ikNF9nIkoqQAJfqr4FQbTBVLxvUn8dmAKBPkbk790XhEiibZHBiSBS2hpd425414fWyG2YT ju4cnk9LzyXBleAu7jpoT + cYHPWwxafqXIMNeDDBusjkMUnYrmfyXyR4NOQNm1GCpFnc0mEIFFLuxvK0UcsWfb9OnK6NeSZsZ6t873 1kP3dk8mLxPbR6THgPN1sbrC3IO4bW4zD2ifYZVwUW4nSvXrl8KSbUsg66Ez /Bl6R4T3UzmrsrvODrI0MaaFIdDSfifR7sRL1TQT07UJhTdl0pyvPYq6Yix9u1MOdwsdziU99E3pB/ Mtd+zy3l7gHjpIg0btNVGuRLi+MdvR8I2AFddHBtM8ZQFLoZCKCTiFZYFGSKdUiFpNtf6P9/ INGkql4dqygOPh2YhaPUeOPrBHF2bHlT5HiymKmFaejzKRp5nxpFuW1jbqZNeeqjPsgg8TZ3dac6jjEv qQ6Mg1uf2ejXbSYIXpXwzu0VfH1lDxNQQIJnlCSGeRkYutnzY4y6cPTTTCYXcKEYsQIFpw9Y4ow0lq9z UsfpcgKSqG6d +9Zqy/C0TfyOWvjvYipZZgs2SgGlc3+ ml516BC0UMIwfDIckj8YhVfyDU84DORJgkFl9mgCDO7fKQELvazUutNGXnPjudtSf9SicHlPoRpIfHeI sIPKhLHy0IIdiZJzZuvk652AlLop / 1YIcWqE9mRgFkBI5XLKWxB1pONeO0qeWHsecgdFKrSeSYlMG7Mlpttp6IUxMJHDYYxBLNIDqWAM5XnGO LJtbwTEAGHbfwTjIYRfol6NJg5k7v +wjo7BpUtd90caQwlvfzm2/ c9IE5CPecFoEqVDBDF9iPjrpeWURvMgV5DuQbyqDMMFsXywnknnQ8QRa6AC7CEAVWBvbOtvFziDCvlXD cZJwW2nctTOQeDQNxXkRwMYB85N7jKY / iB1TfmWwEXe78edpYK4NZVT2gQVLyb0ZNyFM9ZJFGjaXGlljOOAUxkSLpY0oRxlCCrqvDy6YbTFohIWb 9yIBPQS1gZf9jEd /KRfvzeTecwoe3dcll56mZGo02/DlZ4MyNmV+MbbDxwBSLI2soVFXdxLac7xWPtxdYhGD5W2FQzv/ GTtEKYPWoZfIqExzlXxHEQxyFxcVNZeVoSAZoWEbjVKzNpTNQ9prTzwLVSegRxGSVo5LM3Z+ZI8+ WzoArBPKaGL6rovOaIowG8pjWiDu1hTNrg1DQtudvbPbxnuA84nLmaui2oYzJm79jL1PcaZwz3hq3m11 2b58iq8jlE3awsIbqVRfs5r6iOCuJOkhLxkf4MktJ3jj +YJKeSC3ufXkbhgcXHsK8QuQoqK5AclK1m5Yoh6ElZjexuZmqdGd9QBqxKSIpDc2Avj1/ SrwC1M4MlOL2LzImAmZAkka7FnR3XUT93EMJsaZFnUuWlbgjpcial+6iFWD9UKTT5uruitTiGxda/ UawUxgTuTBb6tCFhtbp/c580rSUFLuT14pql0ZphehnZv53bmGsv+ VD8I6kHotk47xElGUzZTDT0GX5HsnVkzoZ733WpJ8VgMoXecuhImrg8RDNqfRxDiYtnXNUoC0Tt+ N15iTX7cRwPpJGRd9dmPlI/ nmFPFJvTDnPqDCQDghFoBpgQDByF16LfJA8IofUiCBCJfW9j0V5yB1s3gpG4NWR25jcrCTaK6BvTX/ 6eI0fizqGvLizCG2Hyi9yLcvUL+mNdXKux1sW19krri/ wsMuckWMvv44yh56Zm6512sQ7xifRtK7rdC8FBOwbjhS8SoeGYlVPx5G8YAkbaXNAsa6bI9hzL47BxSf vUmTX9jyQffVu5cytKVpQ7swdvsWxsyftOdEKycpsD2dYMRiJZvKnmPuPH2ZVNMq8rsdbZ6GXKBcnLsP GN2nCdhABK8kufqyPs +lMcGQqjZ0dhCFhLDT+JfkZumMwnEIgelJG1URFRLD2bHWj46agiON++ r4as5UrsKf6R9ozKzbwaZbEh96QldaoCYGte5vi5ozhLl+8GJCV+ ZbwG2EbiOnjMFlwFKO2jqBPODyss5C5fLwK0OtK3hXACvhFuuOjEkTLceC8TOtXk5S7jGNIjk9+ 04L5Y3NVxaDlNCTvgxkvC4tLQ9mC8WtZMUo32pzTfHJMFQa5nZNhRwMRGv7cpNdxBywfktJtEvtZWKxp bWrdtdX /QH9cf7opfJEYU00v0s3wW+ bFJjljQ3OzN7j3hSJGsugerwgnEA37lVNWG0zNXLcVz3ltKWAPATilrKAPL9aa9TNsmfFaq0rmwRMPHp nwo6rK98whvMhvRDmZKhLhL /akmuoVGH8+HwZlU3sGz7I4i60re5wgYKYZ+XHX8r5NaV7WLounGJqUgOcojuiRYzHSc+ aKY8lilKGSYook8ZC7wqjClmYmuHAvhGOff375rTRVdLepH9drujB4DW/iO7VX7n/ BgMKJV9at2kj2L1m7ro0+ x888zsTV4njmzXkyPgAD4j9Ef6WUp6siP9UNQKvXYEbZeAnpwwdbXT6RFtshJynM3vNNC3liziEf1ZyQ Nhlcgy4T6GaaZAiBAYhaklYcDULU2HbnMDA1UCxg8t1zccEqmnWBZmtjPpsTMBcOjhnJyr9dvFwJgDBM XISwxZFImkxHonCOZH9OZqtlPc1LFK3AqohmKz4 ZOiBQp3vzjE2KjgUWhJs7z0SX97SmWQf9fuEn7vXnHhAzNdINURaK8ncN3x1WVOjQbNgbDURAy31m8Un yU1VLSk64t2Aixo0a45u 0Omd8nkEVd727ngYKaTPFFnTIo59XbWtMR4y3SztF1lO5n0V5cqI3G0iuZEwDF6A0O2GXBsnKIlmglGc G5eUkNdxP /xTCWE7bDJFB9QjMCPrvAqCj6BfY1WTTO0qpkP1Ryb6xOshyHyQD8GgDywdAGBABX7tuWwA+ VLbhVFpPVg5rxddKRouYL6OAn+BRzytKy8q73ARgo/KUN/ Gr62jh58w9XUXWx1FfLN5hFjHgCR8AGT3qMAAu2skhREoKnbRhmGecUyIfx6VFnYIjUPb+ 7PxNgDgxWU4svcmiEeYZVUNLgdpdVnaqAsI3pbUzSpjTijlnRmTtsPf9xJJX2APf9CAkIIdrvq395NWZ lb6AAhUyS3kDXGaRUo +/g2bsEyDbOPsSWcswcb8CGedf7GHoDOwg6bCX0doNoQePhZUyqcfMiEggh5iv/ vsRaBQdrsszwh64A0EKR6pai1sqwUazQZDVzhHEdDmLxhAZks7LkPoJWeHwz9MEzQujCDg/ F2knxVlgPnkTHqeRcNP+ X0tLy1Q7dc6KrqbtWMe7oKYOCm1K7NHCDLXJATSeQWH26fTFp2yqmjXoJM7GKuxr3psLVLDALQtCNhIp JZWBgY3zhkfA5wcyli /nhlGtWtT9o3Y1lbmt7C+KP7kJ6bzERhgjrOMVSELQ9wxze8gZPEb6zNoyQMfGVyWnuE/ hTGiqTe1iiJ2NxhyxKsHvLoWcNZ2usJygwkNMxKZfOfvgRQWY5W3HCEKZmNK2taoEGY383ywZ399GDgM mkVlVmuKKhuMwIVXGQQhbyLudcIvigfB7w3S84Dn52g /Q7IKNAgL5RKN3fZiWfRjxl9p02u/ bqW1doBgyV5hCzruQSSGC2QDZme0GgpLza5WvV3FXNCelv9KBSlIfbxCKKQ7leCuZ1x1XeYJymoeLXsP sMCoORpow4lybGCkZkpeZZIUmC5xgJEwNy9FRHOWhW +CTPOxUHc0AjC3GqEF2ngWuyeRcfoqgr0JxgH67RGQsxc+HabL7EjrsicjlJJyIwakiL9/R3ur2+/ P3II30rOwrIculqIAIrgsnEh5xv/ 8xvkOtzjREzLpLeSPqptA7jYEc4hfAhCIazpQuYB5g43bxYb963RMTRGWnJNS11PX09ujWitrFK1dbmg iA10rYT2UoJuIh6ydUMreuqfUcEzXDY4kSzGnuGLGJV6VunL7lN0NznfgfbQpJiscZu6E3KTx547E1fy 6LPkUTCYW60GHLS0803kHxsvrncmNxo0rqL0orf9mWBEw5phHZ +2327AkZTpGPDv9N2Q1Pa7nVar9sA+ NZiK9EP4F17C77qFdNXCiz23uqVQ9cBrkQAQ7c8AZFeAnaDSegYZi2FQgKjZLsfZur8BTcpUf8zMVP+ 9EoMraM3UR3sRg+RfW+ LJlpyXQaoHq4cm2XwGVLZfMdOLoGKnxmfbpBXUXyvJ6WnLhJmofVUFnoscy8Qlo99Fv/ 0Mr8cMLsDO7jVqJtIki2iD45Spp4+ ycevuyBa0JpgpncAy4XlXWd9pW5qnuuBpAb88YwlmqI6BOUs1cqaO0wKPraizpO8RWNyJSAHbobgK9en so3sDXZKjBsY8XWmXiGLZNDuCewBRr4EFOH3PJyfM2QCrCibyJ33Z6cwQy3iIBIixcNwazhY6lVUtA16 bbULXal6tv2WS +f2nqyeomo8mVswwaUc3Ebvo97kb6HP5bmGqUKVMUYCO0frYlX+ WvVh3XdcupDMbvLJfY5I7lvOEdHhj9mHfHYrWrvSgWu5I2dCPqq3mcRIZsBTFdy8uoSAeI9YJOQpsZL/ BsmpEhvaVVDjOPbLJSJQgn4vVX3G0wNTLNt6LPfIP3n4NMIdr18GSJ5vxHjawqx9SccDlI7yhKVk5aIV O40id5y51aRLsZ7zBjSvXTZaSOM0uQ2TUO6JSilzXpw8HuggtXpTz3LsermMZ4Fihd2n5SfnkMfdast5 q5P1q3v8Nah4kltJ9CbEsyoD6xq pkqtdOEIHtZHHsIuXyjlNEPRhJgIcoaXk14o/wOCwK0K1MQ/ MzSaMnlbpUKJWvchnKPZYAXVtC88ZdqLXtYitNqxXQCGBfHsqNyQE2/pp8GcODnM4r+ILe+0TS7S/ gtda0i+40O5kUOjK8TwybX1xaLTVzBEzwvpewlCaGJEsvTG8ePBn7b+xx8N/waste water worker+ MTluxhnxZANs3NyAcGG0QHNqmFw29vZSnTTWBgbAh87b1bPH8jhAGnJOtUivS8cvvYJcRxZRBdwCFu9Q iUAyGnv9w3rucbb517Z61kmkRZzMBLM0wJZjBxsf +XaJnhYHgHNrvNNSJa2aadUa0R9x84oIuIVjZb/Lj42+ EE9QHas9EW8GeHuX2twDmknFPtwysJKCqWWCthFuNZ7wCj2qylOFKfNqY8bDHVK2e/+yFKmo/ G7uLtgLY2xsf4yVrl+tdAf2fGp04pdAljpmMk0weL9MNuUIFjk+ f8C080Z7baCX0Ouai4vWcFUouimsCIDC7m1vzlEntP4Z8h+ mWvrHYRLrAeIiuDHbdUgiuKjEPfn04FwotGeGGUsoFgta9VynxeeeJaIgV0BHeWvobnEIAQKBtANjGdz JfefA9E61AIg5z4gahyK0xwb8ydrosBgig9z3qI6IA2reVaN2y7OqfZtlTbN6olfsfDcNovItSS3uedD rF4UbMcyG /U96LJXEqxj1m5bq5MqzdobD/Gkaainh/xHGs/8p33oKkZ7oCzCgp3f3n7W2pOa2FHPHyZLsnpE/Oa5+ I1vG99TaxS8q1kbDVnJuVEgt9B0aQ/dJ7iMv9UypwUjLukX6kwIAwbZNiFXAUGFaxpy1JBa++/ad8P+ D9N3Dl0oZfzlu9yksh3QbY1DikRMh1MnuW2NsmRroPfAxlDYGPHwDSZRL0Cnt7uw0DAgwe7ojcZa1/ iF3V542puD/UGl39Lt3r6EuqUs/C/vcn9d184Wx7T+HhpNxcS+M4vyTom58xzHzdJ/4ptvBRsLq/k+ aOjzBRgCFGn7GUuSrwc5zkLi0YRkAE+1vJHfCUY9wtmm8vp/AC+JqGqxVrdGipAefo7fi65iXXVs8+ yNconwzaqe64se3V9oMaWkorD1W8rTob8HywFoS/ Y4x0maM0bVRUTz0mgoXI4nOTBcDa5dSI4VHeUZUjq4bPcyT2dYfBiQexsQznwj8n6PLEF2cBE5PQd2hr SEYGuM8 +21H5nsz0Qoc5igY5aqgImLTpbGYvAoc/H1CgShEJLDLKsG9r/CA+Ffgl4e+ C6mdEl7kkL8f2lyz8dDnlINPLt3Ma/ rQyerYygR91gMofKCAjDvHqsz5l7u4nMgXoRyM1R2rNgcz0AfoTt1C4POc3wt6d4/ D5wZOaSJyahzzaRZJp7yct911XOk748XvWBJdZlkxkjeRhc61f888LCZTbg9JzTs4SuwG08fAQHRkJR4 L +TUb5Mhy3rWQEziEXsTEcDKjO4J0yUAiWNRZI0WqF6VcYG3K/I22uXek0GCq6cPgk1SUO3QBvGr2H9+ vMOibaYot6TcmC8YnOO6AogRK5NCuODms8ceyOUR/EN5QqDdyklaBS9UX0Ceobq1JcsFa2lnNi0UXkc/ w5ExL3LKT7Qsl+DRO3cTK4m9l5/l2uAkVDNPKumSuXWEcIsbDII8nkUPcHZMM6KNteT9ZIE66nXBVvUf /Mr+d7/E9fP8O/z93mesLgXpRh4EU8Gx333i3/m2xaof6md91yGSaQ2/ VCtE4165Djc0ilKhq1F2YMZDonmSyQCw77zfkx68fpYyET82g+4GIAWBgmz6lfBVhyPfTHPgE+ 8L1w2O8f8DjwQhLbN5r/ DqFx4ln3yPUw7kmJLoAe38z1g4rYjFP4lFeK5jeOiFG8D8I02705CftrsHvLQzOLHbMBsEstvt2RfEgb Nh1JPMFZ1FNajdhEeQfRsz7hBIAnNCh /P5qnzXfm3lFK0jlUdY16+9knjgutO/i9R7EeQaHXpEkpXkIdgX0Kpr3aC3zSg37C7smE6/ CXq9mcJuPqIGBDbNXNo4acP8hAVuUfBMZd0Oos9ClS/kdjWUgceZIbu9Zdv1E7aVb3b44CByhh41/ ZXuG+QrsP5jbPlL4F+FAT9Aau7/E/4V/ZX5voSdBfu7Gjgd2Y3U2D+ M5JKGtOrX4ByEfO6fKMLQIdIYb1oukEagqg97ok8Jo47PB3v+cltQwgvJ5W/FzxvCkHji/ yUvp2XNo7oah9T9e9KlnWQ8rXeRytjk2j+HLkzZf1uCe/3ptcR62yx0m13C/ mKlSCefrMbuHczOX3yhkzKhvsH5be04/BW2rYTEbj6Q8CJG/rQRdY0bW3asJJ+ UbGdOoQeChGEkrSEp5NlBFVdoufEjmX/Cdj4R+rv7oVunzV3v0hoLNFpXyQzqC1mrXa+H+k/bI+JnhC7 +K/ws+Ryje9SpEkNTvpL46P+VAgBt6YEhQuOnj/8hrx1ay3Lx0+8p8IJ6dAeF6c+0+ eNvH3LahOkoIepIsmzU/VUr9JIATe2RPraZ9EK2u+K+ wEnkEC3p1LaD0x0i28KCNz6rUT2m8egdmg2B5vIvqlUJZQbeb5Q02XMiotR3Pc6H8vTE2arCHxPft4P/ 6ZB5787sak4I+GvDXgODS/C0vw+4q7gmaF9xe8pT7/Lv4riHka64G6F5wwqv912GtDfLh8+GPwa8B+ OdQ1/xla2Gn+RGE2ImDLhqqVk9r53XWKe+8Dx6Z+ u3zT0h6i0ycyOpSGxS4riRkt46Atbb2kdWzhN1mbHs1vtkmYnfxwqRLiTTzUEC9De9KtqqWGlfB6tIG3 5sdoXHWfxjfrdzXPlOom6 /aG+TMof5na90Q6M+GgPOmn4ZrJgl0b20NtcD2Ps2S4/ SLXNtCdi0j3PBfB5qul1nwPh6g2gmurJVjfIFTrpRy5IGgD1IP3EWT/s0/Ey++G/ z1qe9hXR1a71nmk9k6hj3b35Jbcfop+H/ZTn3w6TMz+IsPz4qYYH/MMjuzmVw3qC9V3cZoS8S+ hOALWYMDTg6L8d90bGj/ aMTzReVREU8OFCo1HsnnLGjeu5b35kUczv1jU3hCw6Q7EjntuDnJjAokoMzvVaXst9LVye0cNGYFKY0K yH08AkApGkAilzpO2YpA5EuA /F6pwm2f8kdkPtZq9/o2rkr2dNk5c49I+lzBu3PzQj92ftVMdq7C+ p7mpA3mzLrxoqpjs1ns6mwkF5r1PyPqQ637G4C6GPb/E/hfwMv/ KOOEhlg9h1C18bB0Vy0r9tqHweGuIxB5P5M+U4Z8vt3rQ0nmKeN+HoVRaU28I1DGlUTXss4g+ XlX4gUnV+U7eL1ROlbh4g+IKzu7kvffWpY+rrC8Ynp+eEOxrm77eOez2W8kdTt+ k4Au706fldBSlA22RLfC5dIjwWKCVddH0Q/Ao9KhgA/TEsx02pHX6D+ IqS3onZ3W8JZhfeHtrrKpvbzVEEoEXN6L6rlW5C4Tqs18uO8SmYyAIrtO2fMAyPNmn72M44eZi+ N1uSFZ5iMRt8rq2LpZVs9gl3l9RzDBivynom8Gs/r33px9bLUiPZcYE6+kL5nTpz+ tHwiQSMWfslxhqyITITHx6PNiroGY+ GkH9A2sz55CnU8M6KkZHC4nO5dpIWUiebT7WluHxC6cL2q9TYBLx6tvXvisLol64UOyOrLMvV5XS6Mrq tTCI2xrj6xlmZkP7AaCvEIv00Flmzg4hjuqmZ2f45mI112ux66yc7CK3QgrK9Rn /s+b5DoqIgnF0QKjBEXuNBJOssh8Vgr6iF/Yll7wn2vCqNMr4R2I2m6cSCA9zi+ gO6yg04pujsH0ug640DnmVS1VOlpp2fQF3ydsLiWEq7nhEC+PqSfi670vcVTppPvsJvhct7/ hwpNa8NDj8jxOgpfRpFK+9SZ1mHIdHGvvCWhUJeAfEsJFwtYgi/h4prnsz1wvSVx+ 5a1mfiH8StsiETrm41GcpEVrPUIaw6JHasd4ruVkpxez6h9oB/j94RtM1j24Q0P+TdqkKf6K+ KzTX8js93vvMzrNuRmcz516gbfOzzWhi4VnT4X2sfIPNkryriZIqolFCQj063jo5+k+BfBui/F7T/ W8mtYthhaL3TrKFpC2GASjvR2Thc2JEUWyDIhyRyKQkPAt8m9IfXHN0A0Stq+ SyW9zJYw40xcM9nQqrJr/hRNGttS/eA0r0B9H1whTGGWQ3N+Z0lf4C235Cz13KflS3tfRenOjSpB5U+ UFpF4DSooPniq1y3j2604D8Fj1Ip/BrpY2c7QtuFv6yrYmrpGOdoFi2I5p+ nqUc6VAsTvdkl1ea6blW0DExbTUXJVBr717UgG355QfHhis5rppz5CuYOuvUoPHJa5ombz2eEmKmsg55 e1y9GbP9lyhHNHCZuw0wk /FPQvDesfGTV/KD7Q51Q8k8sQYzNcb7whbt2GvIYCwbXFdK/a511z1i4dRvjA8uzjX06acFJmqE/ G60iRxe6n6VvUS3+ vvJVyz4DAyE0E1IkVmO9BwTd7TnC7mlNmuhJzFgvE88icYFixTZa14YY5qWTwulQ9/ Z3f7DpCysYOuO0Dede6d4t7sWNdu4Z9eTihHCOj+5youNQqHEDjPK7lY8dz8xOh5jYpchiMR7i4tMKM2 /8Aw/8AEOm+HPBPw+1FWbe4a9HDj/ximcKlS8Iqc7EQD48EXTS7e6BkWgxQwrJu+ 0Dc5FhdPeixj0xUpU0IvUlZZRbRvrGUVjlgb/vnOq78p+qttY+tzynSw+ DXaHURVYp81qzTgYaCUlxNZ9C4zIRROE7AnaLZhv/E7+yeCvE32/ JqEGsxQvLs134Qci3WUTSRVeNvn7x1TSB56ZOBLkFYhrU5vh6uiikUAHTt4iTSSsY6d1l6+ 3nTOxm5lG45tV+6vog0t/a3Fla+UiGk4JeiMKy/ iVOaMYaKtkoSCN1JbwcLjIEMXFShO6wiS6VpXA3zUmbqepVFX/rbqsT1jmgrzr9gtwLuV7XSR6rBdd5Z +muReLeoTGJuocuCBaqpcI6wGeA1CD+u/hBr6+ F9KtrADkxrjfJw5Vi6csxfxw7yXXMgSJAwnnfz4oIiq7B049x2RxT6wmx0w+9JU2LWbW/ [id number]0sa1ys0cJNG2rnah1w6m5jUcSUr6r8ciNSd2DMCq SbC5s /D+ qhSdWTo1O9rOPIt87dj6kHfUq0eCZIX3FJNij5Vhsruqryfxjaesmbu38RQzZrD3LsmJ2GtgGLG001md hZuuJ5hb0eJgdLVxwk1SXLlJeM1kjDQluXLfG2b8SqpfmgJQxqd1Z +bHivbQ8DmyOhzPe4B0Ovbbf6A8QNdhwiDHVQ4ml+h2g4XUU+j5PejxTixy3u+vnvi4jxNz+ KCCzD8i9NUfVRmvlgquqzn9SBdzcVaxqPJlZ6JF4t3zil/s+ WL3lvjtJgn7C7sE3M3gMCc3EPECH8oIXMpYB4Recivf9k+ d8Fd2AIuyiiMvYNBTk9j3jwxdhCkWSus9illW4spOmT7YoowHcM/ifw9o+lKarmw2VPrkJJ7qGUm7/ 7hUlGi4EkgGoH22apxkS2co6skTtnlThifI2I0TSJWq3p6DaW0qE/Dsv9u+RyG1nBAsb7cH1jP7Adk/ CmsWNjbG+hF318fuihP9k/Ip4cXgeLXX68r/ kJ2Mgy13Blnlm972yyqu4X0pYlf6UxDAcja9cBX3KTZrNfniQpdxR44N7tzqSOVW5B7tohW5kI9snP3r 36yRFqD5mrR2zko1ev /xXnf2odW/8yAsHYpS4d57lS/ KpkKGHYmoSLLAnh5nyPXd0MPSb2af7xYANG8PHH3NE3PvD4np058qh06S1adeLkTA6l7yMWzFHiVvoyR pyPocp7OxElgqE55dxd9m4O5G0w4J5YyDfzEaJwURH47sRkqhZx045 + e1noBUjruWtfTZxGeMI2OxpeR7mtTeDxGj2f3iruGN1ZrMWt61yP03s6h49xnjnw5j22FaJNqOxeDsE8 QwwJp +yzhqXa8lEgtKcgnmPvqoEiFCikyNnW52PeUE5IgkKZQM/AIs+ EuLqcEGsbG4an4H9vfAv0llPGu23HB1Pp2fTECz/cy7zfdeOh6xJecL4FLSkRGO9xLEyBsddPExs7+ I9b5n2s0N/NPBzO5o+ Rtn4TPEc1Y3cfdkjPokah73Jj411gXAN6wuIVrMwgq978hP1jCtwjTP8kMicGU5sKzF7NozsMJcTgygZ 3mnu4jmKR +74sAg7LEp1v7CG20YWKV56pRhw15jPzMx379DFKn9s6R7CMlPXUZjuqF58JwU9onyhWorWWRlupea/ cnw4goizGceqsup7wnOPhM7GLL8Tc8oprmcoGq7M8Sg3guiR89HnJjcR12wUlwcyR0W2fEFzTnB4gE+ Ox8GdC+OHtNhYptsvlt0l0G64o+L0RyNvZ/ kKy5I77I0O1jMVkgZV7IsqMrbLyqA8zxadqkR49QI1Rf6n3VaUavU62ts2t9ME2lziYySUnV3a+Ib+ xp4VLCDAjJOAVAhxLytiBwY4G1LwRMw48moQUdcL7h0Cz7fC7gbp+xkQl61A1KQ3pEKUmO3/ fC5OypVG010eoodwA3w8PIswvD58P6OZHEHZcbRzCk7Qfb3P6szAtjGSqPmnsiCH8MzHhKscscAS61Bw AXE2hjkp0B0N6hcGbuG0OP4KbXluaJtvHzzCdLhxcC1UFzhuidmqKQq6u7 +0Ft6tlTCO5h9b/tSqarsqAPa6LQkAT2vg+N9VtbL+nPhkoWroEz7DR01rClhiiqziW1gX5G32wE+ 4T5jP3zrqKiBkcCd7K8X8VcNjVm7hs+S3A7lyQy6xV0b4a+H7/ OkGnwoot3m34ZCOl0IaTC2tcSwnQhNfssvUAikjx7oEV2yay1mO7k+U6o5ecy+ Cycrz7lbd0bzTwst3R8KlK3FmfPprfTxROK6y9l/SwcyQ4NN+ F6cWAoyQyqKFsm1PXjazJHhQPxLOqkLSgl97YnKJlMOaYNywBk0koS/ LjHYnb6WZHM2UfYSTtAE99HcneEQLOHaR9c+ ip4Gs753EwddtfyFFxJnEntgiieiIqYHeVdKfhcnYJi4bcXFlkIsxp7kX4k2YgpTpNKl08+ Va3uubELxYcCulfHrbFxVrfnUQO06FZW3x4yoGKE6Zp+q+VTi19T6W+Fp9c+P1l91aiuV3e8Cyc/Sf7Q +4awZHwrYEUdIBP7+cRpSU6E8kc58aVFjN75fiiJ2DaR6Q4orXVW84Fz6MhzmYr4i3I7ccv3N/ bDAfGf83e5Nt6Fn4M7uerAPbodDqzfdqsTqfjymfNOXht8LlLs2WNf24kDLregf1Drw9Z1R6YgU32yyV K4G5cWzrGVeTg96v4blyk1Uf4UFB7 /gg9drfKyCf2xykidrld6JJRSYcf2JT+2o/HxnF0nkDBR/+53rr8XwnDas4E2zc6O72o/ P6r1upEq8rINtLhuqyBF3zg3cpXcxDxOWTNyJYv8VaUw5GcIm46Fi6OBJgrvX6l7u/Nqna/r+ wc1qgm3IE2zQJKWdqhTYjPMV34xHnQ7sqGu6YBG1UnzJEp9aiTSIKmtDrmOkN+g/Dpnv7Ymp/qWunU/ GmiW0/dy1SBG6SpQQ9B3IjrTlIzj/fcrlqg67q43u97CVNzZdWCVH515tRXAl0m933/ Yz2B9XeVM6JVVcybmae1gm8gfbzlML/ jO9qSLZkElnfPiNARKAmf7KdV6o6xwi5shzqDidmCGqW7Q4Uia1xlo4TOxsakpu5b+ VMaQEEMhM5MGpri7jYlb4qeRiDHaYem41rS7F1XohBU42y5+8vHm542+nwaFcNrGnypA+s+ W1pQec83a1svzdzOmtuTS96wihD067iLFEfRjEpqtmcsnNip5Ohm9fif336OnBygtyAsfyByxpsvyMzp i0E2nyqV4jZChQvZjB5OdCTIGcuNzUUql1NXjs3OrXiEBWpKrvc +dvDvgG++S9woqD5GLhZkYaJuU8ld+zJGgOtYqxCJ8JZToT9UqThpnuVElcZN8iu+MNDArPLa+taFpN/ ofh+15hb7HT/WKpbBuPr7k4j5n1acS/7Ri+1QXeiSsWMdrXZu7bqFr3Hg02snWLLSHXHKKOsrAev+ niD4svUHdkruvSyJg7gFk9NcvrmLZlK4IDGfyWiH1kocMzgiEsg1jfIFjhYz24dYq707M4j5WyFjS1FR jjfx6XUgyjN8rQYdMmwfhM023tiI3mPLQ8uE3IEIDrWyjJwaG1U0kQCGdIJuHCHDqGIpSRAnnW9MDfsL +FXtda+et3ru/ H9aLKaU83zyA4jJdNrIvzgWxtjcWjYJgCsEp2OigyPftenh6ePaE5H2E5P2YM4hH8pSPt5wfw+ c8hkWalssZ6zAavJu5GdqkNA9lDSYo7hNJGHWzxuHiR28F9NL+ x4IzqpdODmBVJ8r2iWzvBdEIImJmj8UWRrI1fu1yXCbJpy0bhftGLKLRcVP5xlm9NoV+ DEK1T8RNdT5UDcHc0VGjcD4oIzbhjcPIzApC3m/r5WCB3IlIke3sweBDpdXiJYlldjjk7Qu/ Ah0WNobN6PXv6A8IgGA8xO9QFEYFwwS5E2T+ 03L8gmCR0HZazu6i7B0x7MosEMwaXmR5y2gonQw7gDNHiK0bgnYMC8O4mjIstjhxUezjnZKYoSUwZrEW ytWhIbkOpW80WTex1vOCu4a2zp0wbA4Lirnce5Q0d768w7D1vDyzVta0okeNuAsO4 +ra09ltpuYPZji8Ftt8mcQo2hAMz+NH4xS5n2dcJnN/ L1Q2tZb7AzhcDFjk6a0ppq4nbNX6MnQXyXoZnpxsf7TLFNPhtpFvzMn+QsjKMGQCveeyH9C/Ge/ OsoC5e0cAGWayw6W34GD+TkCrv31HnqTHcS+ GOxoMPlb4zG7SZG3oRLOca0Knazwi0pYso7xaH7Bi64uI55khROtJ1V2gIpVtjio2sGpA0dFUQmdIlhp p6ukc9z3 +6VVnbSkjOfbtki7+ 572vl8iK2YX2JAf71Jv54RrrTwR2r4q85MUE1380Gxh9hE1nnYsTcYxIpnQC53TofHpKPw6JRxHaSIjN 8Ko6Fdn82xJ2 /4veDPAWnzra+LbD+ 5rj79XV4ncKjB7nCdRtdOloTKt36NDzLQlyy8eH3RxzfF0SniQEPQUmTb9YItN5oJgFDlEJePyIEV8tS Gw9dgfP1c5ce9UhYZ8v6459NRh2qodM998E2Kr5HT4Qwp4dvka0ddsO2CCgeh /fLTrpnB4pyQMWxN84mB4Dqj6gzQo7ylFm7W2OhulJHJ8LwBDjgawR1zh7m0wQaT+ wglsnUSCxmMco4y85ilyS3FcIeocZxlPWLx+ 1rTplsZ7uUnFRnIEzKyXdGScpKGJs0rnBiao1jeV9e9zvKsm6IwVAicWsXi0PgDiycIav9QVtRLtnjkO In8muc9Nmv2lt +BhcIWYQhKkCyH7Ul1N03qtzHl7V17B1xl2X7h8qwa7itVQmXVfnfnUQefh5G7dwIT1XcWiayO/ Wk9p9e8ZkdbG9KloY46mJXs3SNOI33MOt5WHPNO2pkI7dYh/jvbbUbmBbeS/ PFgQ6yG2V3pPoHzgYTE2naeQ4ZeCJbRAV78HmdYD1vLhSih5wGnsPXk8uJ43hEr41kxZw39MF2CiU0q+ Z08Nrus9e2puduNicFn8hd1/OpA1cbusWORagc9I9Ql9X2iR3sAPQjs7Nc0gETASc3mdmGE9xAeaKM/ bLMgYW97aka7i+B122nnlftVPVMHI8EZineAo7nXSSb2pkkwk484J43r69Kl+ CQevVVJiaf3wYmiJJlcbFD0c0PSBj1gpUtHris4xVrVENUO4whcJcAh7QsjxZeJI6UfXKiaEf/ ZYv85z0UQ8Gd2P5iRIDo15LEesMrStVlr0U2unoafv4bgu20W8x2qkyRkP129LVBT1F5ueq+ bFbgpF6hQxUo6YbCL8+teyM5iiGWLsFDzah7EXog1iw2jc0vP9kEDO4Bx/ zMbmZwux28U4lHxOCr82jk2FsEsp111GEthsSXMm4X1+ XZ9wM3P7qJIQxmtliEij1jwxkXJFLZ6rO7S2TArh3tjImYka1dS30NWrYG79JLx3nR2j6p6qTfsnr9lQ av3bxazeRipgQiZBZpc7PuLmP1b6BfOC4bcu +XbIfwIwTxq4oth+Lvo6e194one/ Qzr453opf9w7zm41HA9qfNkKr9w7R9tW9fiV6vcvxr2RlODQqemDmOl1C0j7R/ELTdf0/ JdmI0i3p3GfLEhd637IZYtJc4mXe5olos0d2rmjtXLukYZbd/Mt0CyQAiyfIGZPW7yYyS4bwsl503Wx/ pNfO25HTTbiaG8NdbrDScJ7nC+ KvRi7WzD0j65mp3koqrdSuUcDX57lw5tK8f2i71b6dmJ5lObMYOd57th/ kK1LjDgzkyw81klboOfvSRqYaZgk+48L9xp7h7oPeUKU5g2TkhgwzTKlH207uixmc1+ 8s7EhigkY9jxL8M1ccuWRkwnJcq3Dxbuj1ePf6J2wj2naGgFLvSnQiTPHRRqqwCyGQCHZkE6a8FsUP3z ECyIsLErxN3hm47Cqigv30ovGcF2pB5k3b36bM5TlDfbwyHGA5ZyJ8ORSmx2 +26n6OqMrR0djfyCvV6v0cSCbACPN/CUtA4xjWYyBiMf+ TbY2D3hY074FNaNOyePWpGr2cksEB7ajXaWCVjDOd4jUEdkFzMvKamdKTm0j/JZnIEjWG92niTE1+ m6Fba/0lmcWyisi1lm+ Foh4fKpkmnGWvRBH52VSBSVLaJo18hVLQPgcRuB1H5KqDunXM64VyChFc2mbflxc0a6k3WcWZB8mICv9 LZqrFblmJsXtQkCxme0InPqfFJJG9NCt +jd82q4jjWcCICyqoegkwEhqS7m7egC7EI3tZIha/ lYS6WhPwnr1dz9yo5ZCRLuDfFqDrTNS4lar16kZ9u78rNgK+ GFn8e71LUqE5rGcmV5n5jnhzi6JJANL8zcPxKry2M4oZM8GVCOjwNUNLMovrJgPNSe3f5D+ IWeE5sDTdCIW8e1JHdOiMuZ9kjOgWwTM36XhCVnh57KTCsmiLsbz316yOfPmGZKqmz/AFYl/wBBK+dG7 +9u7PnJ+JuIqzlUfDdBucnO/tZO/W352952313B+qFz0Zs2oWPCK8wqEMVGN0EzwbxEIDx/l+ FLErM8dOHw4YhTodmQiOAipFAC+HgOW2cxYUfDJr67vnaHAI1JUqIuJVWv4PzZA0JBOawDgVY7/ pPQxrrGbWU3j+MLc8l3NkcPQ44HyE4PYAOdbefhtu9QXc+ZTE0b2kf6hAesbnhtg5s5h6OcknyZhhIU/ bJ167S8NzOy6zvWgEB5PEJcRIbdsOjxEfFGXzIls2+ tFWKD4Jauge0pueg5RMD5AxkxbCn23EJ4J53zJ1qo8ccpBeMSUOzsLnSfpSBe2p+ 2tgEUrMTNrW2z9BWEfTneUdl0jS6kXPHqwxtGiOCqzZ9PPLMP3DSr7wCqh6CPezDsqivyzNhxik6kH3o Pl46AzsTjBbQhVNHzAOxZUI0YQfeML4Ev1eqQOYUQgD6OdKbJtwn3nQ8axjj1gyGOzQedgQlrQSxlPOk 79OOMPaDRTvCnfmF3p5s6ccXANjIQJNaZfxMJoJkegYOP86N9qg4oPILR z/IpLPwKrzbeD6f9Bc5kdCKQTDAckEmWUvSn92PtABd8loyUlnn3AVk2uV6zne1el++ w5s3akzUOl1wUpVptGWwT1qKAWw2ypjdqnR5YEbc2VjBNNhRd3pSUC3HkIQfMFj1cKVkCGFnRu4VV5dI qChO0SUckHWhosdG2uyTDHNQTPI9HKceFIx4AwroL5Bpl3HY9rZq +cYiER4kqfLY03DIqtpZXVfGWz2J1qeK0jfhql5Ec9ahcl1mfJyzog468hbCF9pFIy91Kk4pBNpj/LfW + 2PjVIf5JLpR8vXqJXhIPEJhlrGqMv37wQCKoaRWtKwPsHQCQhhjUPY1H6UVXfLQqYejCKMdOBOauJPk9 ulmRtf0UFvxR +X1aujms4pOExzn6JoQoU+ LK4zdWg7RF7uNG1ZChGEciCGvUgU7teeYaZSMf0PIinUPgwALWpNqOF5JNjaom/pbwQo0sWeY70g1Fp/ yTSWtg+tR+QvmYCn5P/ndWenW/c0pZr+/MtUc9TfKdiqd/ Wx9Lo39KgqWy6Hxqvw7JG9PVjIMjw5f8qAEbmtBccyKxcbDIpwSLcQG6A0C47mhqn3VcdHxZBVgT4fAi sMuy7gntFQSHAbxKMbYlNI71J6rcYTVUmISiuSlbyBLyB +1HQdYNhqx6jzghUqe8dvMpszy9qp1951D8u5e5T+ 99TnfHg29U66xp38rwf3fKHYoEKi2Xhjs2UsHogYDV1fmcaIMc1Dc6u3MyVu0QsWebY3gRiD4kBTtBjX VBIWMMJ0cwDOt0U5YuQj9NgjklzVEf3PWdaSyJRP8cB8pSfYhumsYK +4JJ8MCh7AB3B6LuPJ1yEgOuDHQO+VHL24eL/ g8LQhfTGIYtDgORM7zMuyw4Xn1xJBS36JTKos0bbFzXSIkg2037Ekvxzp//AAfuuRoEkcx/Zo/ tLGRYol+2RwfHJZWgcvgMQ4IEmtfXrABRIv9+ qNNpBHSvbYAzPXV6vxoEHSnRLOYvdzwxiamNYMD6w9hEIhyHi5hEUAKdgZpeLFlP/ ojJRPOolzGo5MgyBbd8nMmBNSVZJWkHGIhtZSeTQaxpJmWwueZ1ON3DJZUPIxZWgmoz8ep2aYw5cZJUK wqq0WfUUeSwq23S9VeKNjKw6K6goGutpOjXih709h4yk1o5szyBl +Zp0LM/2pI9ZiVAw/CCOVjhGWFz8vWTuglL9XJA3M/ iigc17D5lF9DMMnVGZZFLCBh8o6kWsS9FTrnosBj2QaaHNiNe0aqgVBqGjEp9xtX5GsP8tNkhAMrNA0o bDGBFDnR6HHqjfsBIjvpHnT1m7zdTeAlAUQYXuwdF3r40f5u6FnVo8uqbBjaEPvPSS2TjBzdw2aFQi2 +OyO77cxqBrzgRKOSagMtLdu0H6qipmD81T/l1NsHhHN32676Q1D+ 86M4xm3w9P7w0LCgJAxEnc3qjremXGxFWq44qiXRSKcRMUmAuXPJhGqk39svX3vgkQvRrVgMeQZvaINm nQDP5LYcK8TDkrNjKDWU2s2rhyNmS28uH9HmPK0jNLHR4Mol2ccJvsxT1TCzSrrPeTJcFxNTqDoX5 +5iAlp2KXRHCvDsxwK0h4zVDjqr7cJFrCYfW1rubGMBkhD+WUD6uolDeyUhXYdMyKwopN7rV+ woXatC19WcyJqY92JmSn7pBOboDGG4Jk3/mvM6/X1OmZLdJBddM+ m51XOC6HktoeS9usJBoPyQ1XV9jkNGbHWCLhZdr5q821EkS1MTklzUKrzbFzHZ64xgggrXsL3NWACChd anxl8i3pWN8jVQ /Zskl/ oSN0mb26vVoEgWvC3vA3XJhcxz06Ly0IXDs0Rw7JZyoHnLFda0eJ3TgwEvGO9oNzwwPk5PiT5eEeVSJc XzM /GvKBZB0hSwK+ 9do1DIWGCm60271mqtx8fGuMquCjw9k4PFrpP4E2dOkRu1QTxaVoYPYa2ib2uSgWltEAlEN9RAmXYOLS LqGPUICcGHPKp4ZvdbKHlM1nzZD +0qkvy+UQEdJVWT6IIeSGD9b94Ecwbl+X2v+aHKRI6XdbLbi0d+ZPM4ptLStVHlp41ipTQPv8+ y6yF99hatKDe1ixg4xvDoEU8n6nfxPKVXjDrYaRfPOUEvvkklnW3ynYZwIMxegiQgoimIt0mmxNsYm6m Kio2kE5S /P0eju/ qZjcw9vzOXJW2pb0fxX8T4acLXYzQtdJmMwCVamjn6GBnRSYlBdn2Q2YiR6mkXFr1IQut91gxe1twwcS zeaKlgFN4tJ6xvLwhSdzN /s2/ idRTGXZu6JI9zhSa9eXJ0WFIBowAsJLxRIvuEsGxQOzAV9yOJYQPBOyflTYKFdud3EC71yTxc4DedT01 zNS5bnDvnI4eniIa1Nyd51gd / 0BDvR73NT5t5atm94pc62eog4IirAiSdJ4bbQ67Xukum2BRrDLm5OpeP1ZHBEbGNUZ2JhglOuvm64ZKL 2dsAEAODRcaBVyxdLISsAOcw88vXEkAlOJClksnTdgcEsJktWB3UKX7vVaSlxbbPBe8dWkLWoz +shGL1FthXColhGoKkz8x3xYR99YtOJfBo4dORLwLeeJNxBCcup+ HYhWTQj2sK7p9Myi36oKdYXaOoTzua1pTtDO17FI4m1I/EvKaFfWhA2xuO6jcdPeteZ+ JOuzp1uaWvqhgEQH87kQ5xrJb/EdjrdvDPbyz/ rSYgnjmprBl6upnRQAAChjmDN4yIjhYOOKodJXBAM81Y4sdEJIzHRP1FCZPvrK01fPWX55IjgnLLIGPP kF +u9Vm81sKwfaaHPWrfz9VZkhjLzFBLygXXkPq1yRuayQZshnZlWpUducw/6L2n7yHqoY+ XRwd2JtV88kv/Sv4WujI6+PWDLJdKtjDGWCxRuCXwXRYi+ RAIXsnfkqiM89JL97lvPZsvePQhVRulUC9y1mDajVffzUhGhdDBaUiLCwT7DtKiJMo09kk0aMHs2Q6jb fS0dB0ZkAJOtOpvMA0XVatUM9Km +0M5eT0NajLToYtXuJ+LVsrgrr+ bX6VKDRu3vvE7vLDvvfYmj3mt8gHf6HnFzhLtbGTgzi3DIsBVdx9gflautTzqp3MNU1P069E3Rm5Gzz9 d2xte98YJgJCzH1VvIjHj83woHnbbxwW8mVjwzDjWyQfUWmDZ2DURq6TFcSyXb4qnA /cUmibuQ3tTRoFNtmwevoSAgNnNYB2QQeJkqB1mxIJMBSGVReQ8LsC3B0GNFqMHyb/ rRj3K1ug8afiiAuQY1+ H3m3jUEGNDwnKBaPcHecLcZtw0q7n7ajKrL5oI2WEyXtoxNr03SirAECMCxfLPd4Nc28bX5qDnlHDRkq yWrW /8An0/3VcruSlhanSWydo5yhF2s/Ot57LBoM9PcaywR6I2lznNGBBdjgTbN158A9g+ 8boScTHnFa3KAjFkbSMMFIFjW3op7lXutq4piEzrQKCOtb4E+ YMAMBWsoGBCjZ0wPkOjB4fGIroM1E47mFeYvUzKz7mqXeegPhzo2r9rECMeiL0LO2fdEXblTqtDV/ hkbNWVR4xNuGO8uSugAto3tjzqgyLWRmaTzS5VSg3wepBNhLCCCtiKZl7jhzYVuqhd17Kn869nX6Cv0W JZivxpBy5eiAIcjV / 0AduKr3sUi2ap58F9wdnuOExHUotcVaTYwVXMOfdHnyFlOuQxPLCgdNs1c85epgBU7yKMkS5V6jhIOaU pqQQJvcxfasvIZeGaLoLccxPJUScC0KKPVdtNrzdx5OMvzeOnNRjvQeq /kFhtZVcq+UIFrqQYyrbSagayV3qONHuZ8TkdvlsE9QYBtLDBsXVgGZqdx7z6sf2qZj/ xi53UISqvJF3r0xMG8md0z7e0ZVpK1zdWpqDabsAWyJdgxHI5ovS1GkapMQxF5H/ OPqKd9D8isxH8hoWBDKtZ3QyX2EJFCypDqftwINhXTDyasA0eAVuRBdSXI90dRKWEtpXDZwfluy+ Rp6Xs45RioG7aIPUu6lKxH4nnArndb2jVZTSdCHrPBJUgSwQcUBpRAWo1l/S3R/ XnE4SbeGEwKmhYf9XHeI/o0I71jRrAITZKIgm4cYi6e9s+ R80QC2QcG4YBQJAshVIHxRTtPx2YHSArPjTH3u+YW6sPNLSaoQQiPi8ticpwKnwgGqJjn/ DwKC2uu8lyzppB5fNUT3pSdAAItISkH8WCt6xpxteZA2dD6gOqOy0vwc5uSKoGoydABDaxCOX+ 4Xs85nTxiFphGb7sEzp2ZI020kIflh+iai1dZnbqavQ/NdOm/29Fet5cmgxudh70EcRxgtxSlcwJO2+ ZwCkXmIYnL7X7oeVEGggIPBwkMTyF+ VoBCH34rm1R9MmEwDOq7hYs8N82TRlC8CKHuj1CQDObJTdTdnLqUfyj4dTlgXB+ P8smimAhjoJdbiqJusbcovqM9CpSuoqKVLsKArCyTBSnjhhqkccJrU+ efQzD2CmzJsTAJoVOGo2gdtSum9eV3k6br4G82vXUQVfskAOfV4qvzTkYJAVs3m+ TQzxYRwMgMFFz8lVfWgTLATREAafE0BpxqToWg0UrhjTXnpjbt3ZDZlp0Hi7/ BtSnk6dJ1NezELGwTAJloZZAVzOfSSlLgUv8a+ SHRac3q09UR7hg7vSVmkmJR9WT4BBwrEIsA4rmUFWCmf4TP811u730c4u7LGxZthj4ydLFk7t36S/lrp +XsS+ L8N4yIbhssmaA00ZWQetdkgWaFPuVJlPAGAy98op9blXKIzbJfomIQ46dEGBIVcgFmpebtknDEKRJxR+ tIX35w0xRmGx08qHW9aJVhAhOKWDLcRXAynjGCzRoCXvTrdMvSyqAjoDSVfYtpjbr0WdOH3bSw3BcdZA 9yHR9NVJW5IFSsqmJ /xy67sP5GXb4yOFG9cZzMHIO2XL7j5kW/ r1kn4GdJyvufH3CHKPzKXU9sdJQ1oTF3zfReUMN1LOEFdchBHiN5NqOanH3os3hcz71qDitgyIPBNSRh RXQB /WkygOISm7zARizEk8hDI379+ NO4yIKgvQYGkcjPHqDXzgQdtO0ylzsvzCyiA5x2HqC0Cic952zvCU9KhnsgNKRiUNc5uVS1UNWOodeMR iHLVtwPMn91Jpqsu +aMm0la/cc014e0rTUkfOZeTlpNrUne489E+ dDaQYbwkli0U5tm1FrwwXRpkl1cIy1IZCsl4kiONlnKWcEasC48JTY5iWTm811smGddVJinvUoglf0ux hPBaGIZwfaxETyhAaPzbFYFXNCOvY8obHIWaV + reYTywTcfwf4cA4J6k2NprCWXd3ldvgYdiRP5xHevtFUAqx1DWGsuMoj8RQ2mGBMepye4BsggQifNN4o p0OdluP222Hg3xzEsBIjOTcSC7zLXVxWmVIUkWxXWc7Ka2vd04 / E0OdmTIJ6KfkOzaXBCEtt7He1nl0AscoWAas7kVit9cVHtGj773mrM9rZcs6nWohuBxopjFKwIFuYwf3 ESYOVHpKI3l8L7iWEiENr7sIJlpLQLrev8eMpOJsvKl3mqIIWKLUAte5uJUD1 +Pm3nc1zE9n43aUX9WI4pYbe+ RJa5jgcQZxaKnHZMT0BNXA1GnxgYApnaHCgpRSHrKGaOFRf5jfRTAQWXCwPD4nBJAJE5AEAoWEleu8uO 97Sq2rdl0ssDNyibmKnGGyYb3S6k66U0iluoxdmSELWzw3artnBHpP8OSS9A4yey3uGRcZNSVmWVvV1K woTCyxFViVLWSvrMVsy3DvVmcCzRNCgBczoY8iE8z8sXAcQ7KyYBtUmY215AqKty4vRlv66w 3+H0fkDdBHIojPLAITKtC1TxR1xcR6fTjvYI5+jhCSUUoyMede5dD4q4n9PJuUxALb93+ JROmZIJDlGtjc8VL6PinC7y8fjZjfzc3b/a4Zg5f0bVuUhw8jHO2IIi4p/Y93j4j2fsLKrXdpauo/ 3UfZgpySBDfuA3gtwSEfU2bxV2NSocthOeAL18wobFSTrFUO66i4G5IS/ C5biirxP96nEKNqCuPwwqeEC8yzQZ1wHY1fLqHLnUC6L22ezkRMurSLiu/D+uaxo8+ oSqhiaGI6oBVu9akoKzvN5JYMHLIvkBniSaA/gswUZkGzxSwui6aON0PtqD2CjFZkYc/ J3yZwrS6yv8ly/2sZCQUGDSagUkEBOHn2+AlpcfYNwppW5Ur355Gbjvt05U3S5HdfV3UgUCo/ 9w0Wijs53bFfNEexB0Fc8qcscm5f/uQhn4PmL+K+ ijHkBuYAGwm5pv2j9CWUjoz98U0oudhJNqFoBnRU7LrzgxDPNmgGYp/LPxO6+ DYcPwSO3NcuurGWwmiKZitoB3d4Uu35RUjM5a3MpsdHEWOIEoGMQ+/ tNgM5O1RwZFPinREa61p3e7tmQGIm5RCfglMxh9GeIGD1tLkIPZfCJ2bs3p18l5m4xNEIAFzeK7Qudw+ rs82RrtUh75XE082QNqkzDj8jYzf89kDERX1tu6XXmrV61UyEDPcuC4HyWc/ AxiYkpAXZbZj1n4uqMZ73gf4ZM87m5UjeV366Ck+xSdJuR1C6ggi1e12uLh0/ bcPDz430RukAPg2RevuXWyO+zhyg8LzvMXisi9mVpsgOqjxN6AiYg7tfwadaenTk/hc8ceut+1r4z+ YGQ6m00Fwx3+o2UDi56kP2gtCBqYRXrpWC9+A6tgSVlH4qkBwPAAK9j0eZGLbF872dc6YHQ06T1+ 7v0K9jfvnvstzTox7EJqadmg6aCI00k8BhdTeP9KzqqActYwedf8ZxSdzuu5eVNb+Idpa3V/ d2l3Gkk0ZvAHrKiAftiTpA3pRCwpYSZCnQu25sYJOVBx0p+eEMljGF+ uhbZfpvjDPLkKapHipKM3hjMrnLt9siM0i5kvxtucIJlKf1OGIQisEHdkAnEEdNVfNh7IRwfwa7wqla4 s3LpjorCrfsDCfaEivBw0qPxEtzWJLAZhABoRrhyPvWAOVFo2S /xp43wwBuekjh2ClCzY9hnm+G/D+hwNzH5E6DhuFwN8BymHp/niu1QLRA8Q7p4bjNI3/ sXxvZbelp4KygY1Nwulip2zdf9mzt4L1k4P7C4T0dyBEpZ/4R/ B4ozwaFBnVcfF94kXRmZPfD1oaFHmtlJBp/NdMYwWWLE76EG6agzVoHv1fbx+mwyyC/ 3mE9IYsviG9mWRUOJsvjpBVA0BfLVssjONSWQRRTeQ8+ d0xGshakS4tetjVprBkzkLSxc8yvfb5dpmdxzvZ2qmWlWoFmYg3prRhfc7Gy53QlTJ76Yoimno4J8fLJ akvu /8hl92r01rtY2Ngk1A/Bmj/CT4v+Y9kvfQ6caDshHM2W+DNda4+ 6WqxlTcRlkARYBCroloB25QDk0mxy1H+y9Syw7v6+ K4jW8GyiSsDcWUIwav5TzqIyrixfTiDZXGVz2ZZO30CTrZge7qzwmdYbKXZSXKLSaOqBoNLhq8D75pOl 82zYi63Gkpd4x5G01tTaGjCDv /i9Valqgjz1ZpOfVwv0ZLuDxdH92jtTU9nnTG6ks1dh/ jZdwcrwJB4f8t5AUk2MqIoo1jyKRvKDvX5LJQLnEjdiUt7AWoUIlyVE70qUyMGEXxP31hIHL3yfXwr9F lhev68Q0p35v1YpvoIYzLr2DeXfhUyVxqSRn /BAzIjLwGwlkWE3cnDS5YYbEhzmrDzI7p7+ 2WUF28umbsBCUFUr2xeCNuoZR6WsBOPqcfu4rriWUMhdwChoJ0EgI1c+ R934GUadhx1jEGff7zOJbuEHfv4isxlJy5hPykiHYe0zU39l41XQgwgYyzB76cU3IgAVlbk4ti8rdjHj 6SReRAOYAopX4eCZhcPxGGypoWR2WcZrpQA8twZmf1BiUWWZBrfW3BoqrhO0D6eNDxHIfUbOlJ8UtL23 4V JJFom2yx2i6d8m0PKHq9w6Cdj+ ZukSSDgWWE5ujxYVDDe231v3wXZn4hU7KW5U5JgdwZEKGAu0kxqzaEv0P3asNZhpSP7mbHAs11zne1j9 syvAUmgurieL +oyYzaZwSf0GlvCnFjlXR27jCBoSn/W4arj4A3cCB4kn8Jg1hujqOvcNs0BwebxgLtjOewSUGmUEu/ 1goZichkr3mayDcDrzj/5PrIh8030LuVgEJ4DQzBNN5xLYEn7K1F/ G7qnFukUdM0F8i3bV4pLNXpnT2VizxqLIOqcPjZ2x7W0ItO3Se/ kDIDPzYqsBgiuzwZfK8XoN5og9GvI7d6Pr/yGca4EGCNH0+ 6h3TNj0nX2aazn0vy5Uku6mkn6hkiQz4wiHyye3nA4+ 0acFcGqkmVkOOxrzvNM7Lywjkagad5Bpl9ofc26CkXNp6ZlVkepCaOhu3reCsa7xf4qiyIkuk4+ u84lKfndM2XsrpfV0vxWpn9QsYxZT/MYl1BqmfbbsRwROPPn7meVWt9cKOwmVddT2jEZjjraxWeliVAI / YEqy8uxQ8fpMh09I0qD2XT22zWnGpkMv0z0r1JshIAZ5ZjYPb6oN6kJd7ewdqmW10xgYIFE4Im8lspO9 nxMi5UMrrm6AjMW8yxYo3NOIoONvNqELHgKvjU /OquNq/ tw5PUeqOaGeK6TaR3V22IKBdi5hf38gkcixdlnFaFKK8TD4rG2U8w4uoniZMiSvXAiXt3oY6Wf3xkSQz o9 / aU2QsOdKJx7hqbZMWVbOeuFHpuB0uL9BS2l7dadp5cjbs5oq4ZuJWsStIjCjLv8h8MAgEUhOz37JQLyB DqENUv1jS +Zp214/kU9LaINae3P5ji4s9zPoQ6yqJF1oAvBoCD0C2nA9u2VMaXbmiBXGqUwGMJPA2v+BfBuk+ Itsf9b3jt48jp/B0F7Lq+ t2o8N7F9PPa083Bz002xkdgDIq8g8fZug8kSnXoDX20QNZ6o4SlvKvitdibJT8W+JF2LjMNtL8/ 1Uhf3iKCRWK33PCY1vtUAXQgGTUdoenOQuFKiMNO9ZboVjSf4dgX5dkcNp9aw3oshAbPZwL6xRwgLlp7 0 + 3CURicYz5AJ9egD92wgIxJ1g5XImYAPTqQr9RXfYa9WU1yk8uAy3AUDPu5iEXGz035MKoVRhbUzLiICO kptOQKYsKMIfM7jrykyr71dDjUqMil4u0YhITm1GaGQ9mnfltyw6pJEWGw9AX9QK2uQH54QrteaOx77u /OCysVBbFIHVbH54vYqwy48+ C6sT9doKKryAOUvvs1k6869S4vPNg59uQ18wH7MC7YOV9acEyDM05MZQX2G7yNZ0zPYPQ6fCtM5O+ HRLPd+IQOp5tzygLrJD1pjv2805j6NZo8rrMJCWvO7RLvqjtjVfCStBp0oEtJRo/ ANw7z7PeT9NaIEVHIU9/0wwTxsgjkVdmW5k9Avw6/ jlDnMQrfO2q5G1fn0aqJgMAqWDXh30zAyZY9z3KJa0sRgTP2UPYh276+ w38rrsmoXknTsxZj8mEiviGDV9x9MV9G8imbJ6oScCvi4GhdRCE7Y+GWpb57b/ HasW6SKMQsO1IhjxAqvb772QlRRne+I7OO+ zoz88hFjYneHrwg2bTUoko8l0a4Fw8GhMYzWtGBsW79uxYU02lAmfefTvHKTaPUOQVA+ fOQNG47tWJa7U17fCRH9CJOxP4sI+ 60z8k8hqBC25U7r8wlhef0z2WYbqbGY9ojEPGMUFbHfu1m0wEuWOfcUK977nusi7QBS3Q+H+m+N/ fHmmaJdp5lS1Duf1w1rnHpMF7I8dBQjwZe5xoF2c0POv3wxeHrVhWcGuMzddQdjM5r6/VbUpSk9+ olgtvcd78rXcSj1T+e58NkWtZGvVZMiacrb3uZuBPJV0p3M9R5EucVfLu48ln9GzO6+ 6j8OZuW6s9lGXGkd9bJsT1l4cUF3jsswZ5LIPRILsx1/ Z0D4Q8mgNbxypNN6chE2himmW6K1Yg6n0vsttstQhNBjeSMrA1wvt1jC4zMhAAizwJHkorluLBfMEPI2 bznUE3wsTNolC6hdl3lswlHnz6khdXQ8C15hXWj /Et+0bYib0Rt6ew8Brx3ibctnykpWutDfoT0LEQl4xumRfSdvKyd9Gi5qbcka/R/Ek+ iwCXjN6XJUfZtwT0q2gOoo/ wtswjb2jrOYxcBJkO3aPboCUoQB0BgZPjm0pShBXBtNqjJfec6U5E1gnjmIvBs8g6t7iMa7W+ ZJFLPo71CVIPMou4HXCtxfs28e+3zLts42wgMmbKfYR3OSjSRbbs/ ppOt4cpuns1DTWkL8h2l0gj0DitOr0BePX9wVQHLoqKnOCRE0npgkCmUX0uJrPukXzvncyI2zyDMJX5m oasKAd3yqADasDb9Vvloo9IxBkwjmDDv8XtPa0EDPw /v04A7h7n1Q/pHST4g1pzyr73M0kibJrW+ gmEPPgoRCKx7dAb5SnsGE0k5H4ob0qzPrJbqLzSKOTgt4v9fGozPTWp3UghdVRR3xqwqJxczG8GHPxoC RQ0zdg3HXyqTqMTj /fAxuMCmYydQh1Uhm7ulJw7ActZ6+a6vS/ k28IhzwtXymexDti37vBivtfmw7Tfe81xXe4FxqUfN5OD7brov/ jbyz1ne0vw0AgxEzYgy5wzgLN5UrPZkDJa0G4bhc5VEIMgDCdNk60NH82MaH4zcRv1mziWzm9tvHrnlq f08y6ic3Xt2zv +iN2w2MI78NKLSB9ElM7y/Qjxbe3iYFFYfmQF3HS7GilBAkmq/nImS2jnt44I7/ HPcBq1E0wFtvdhUoSqxMS9D9HLmzmQMRkHFHsJEnmRLQl2jm9MjxkMKx/ aJwUYSpzwE4dvUzKWl2uekjx/ugFEJBetjuWAyxwFkUg9dYFCmpMUk6BuY2rRklW1tM3qo8wjbO9/ G08kLhcfFM4+NgHtSVT0lp+2s4Entpbaz/c4pklvJU+ BVfhBd7C6jsF8ntUmEqW3v3qlAtFV7ZiMlwfOaqi1Lxbuht5/02+C2t+ XSTIkvqn2CeyKeew91cGEpx6qoU4qGXa1OAczJv9eRr7J3kIjwxgDhxw1AfzYV46Hl0mUEXJYcpE8ba1 YrU9NrA8BIueVvbq1UsUCGQztOilpuO3ps6 +g07esNTddzbztjC98TwBudjaF8yoamIaw0lWa6i8K3i1zfsU+ y6W0GmD5NjsbGnUTuAnyy7XoD8ivK3rTayukJS3F1leqPVTP0z1fb5al8xUgxD5P6Srz8gD/4o8E+ McqmjCK4RX2QbEk72pCcSX10DECM/ SQp0SUmNCskbqaf1uai94nPHh71Q1NaziP15lD5ss9m8tZszRjKzBX8efVo/ bbfSoiX4hfDUtuelKRJdPMZAj1BhmxjrXyi8ibHksXauWkWiv0DZHcYdLr6pPkg1NGoHv0aqJ9t5l29O 34sfaXagAPO9tSiY7sp5SBVRxqE1SdrSSq2d0jyYLyK7qe3whigxqR1mahGmvPnHr5z32J7DSF5g46nR 7ThZhL9BhXaS3r +IvBN/Y2+j+G7IJSEb9seJ0jvSpL8d9vyoDm7vriE+jFQf6kFifAyc97+4le3mQv9bKNyxcOGgZid+ gW1voN/qOvajqvh/NjMdn6GrXSqVK72u85NHSSnp5pzyHb4Y+2gV62sLjFnqr5aa30E8Jb035Fo097i/ CM6IlBYBX0B3k/ ds5h7TTP7w1Vs22jR1qop75Ws8nBJ2ghO1zMfEsABMc2pNPi1d4JWFbcdrGTgQ9qT76CXc19kQ7HnzLx M +O9Mqp57h97Fe2wCqTm78W9CyyI8xPLYnOigc8Y75yuX6caSaN9pZhmjWwHkZpnFotgXqojdzMBtRe/C /fhTL535S3CmZ2y6G3F2MWscDsotwU7xcsxfS08XCK2x813DZof+ tZLcQMlF22OFRrqwccv2Qs4YDRhquC4X+W1od0WJyjhnY9wnZgpCZ3K2PdH1G6q/ TByj5UBvFIqzpS2Mdjpc3miHzsJffuiBys5nzy2pHHSkB7VaV5a+O4z7nK6V1W2hy9KF+ Ufh4jvNj8UMcPvMjhbA7nS9M9AscH+p6H1gSHZt9XmrWPTPa9ovKafJ/ SEl5B5aVpG4L7Nzk2PyFr5Jt62n3UA3ZdMvdZkqrxr91M1l69+ kmn91Qz9maOUy5HHFzZvvbgdfC2yjjBwdgFMIZEf6bJmURamOcWm9l6vw5v2gJ0IPOK7qf1kyCZz6riH kULd2Vda4SeswbnPFvMIYhDuUMrGBD /dYnTLqvtUXvwdHSb3d+H/H2i/B/TdI8R+ISiF9GlzUp1okoc7Y4kTrMwlpHTyOy8Nm89jckmlr+ QXeIx0wm8MTL3vSwMDd8w5ew23hpAg0LulleP1cAwNfyAi7GsI0RAtV7zN7hmmlTHwoyyump9tgsZ28t uv5GPVGccN6 /OSS9egGyEXIKXhqA6Mo216b/dU5fOVZjjJl/SMzbu8Ve6CqtJvGt9b+jKWr5TT7uhweTGfArW9O3+ law1PfPxrLlYPQnaIVdL0y3p1pcbasl+H4z6FkY0gqEdhEMTzqmEBPuJf+ 90L9Nd0qrKobGc6ZZjQ6dsWSc2if5rJMLUGedMvsoamXgpqwdNQQS0i6yHhZtXfFHgjmsyJEEuuGRB3F 8qpx9pvZC8fgZ0GHl0MEvLj7kHsYC5vQJwyu1mPnE4cv9Hctdi6A7uf +qOwtlya1Kg6x/T4ye3NaA/EuseN/Gh8W3+uX+e9lgNAMmf5kpX+ WwqR2zp0AZVMqnnJiN1qIHk1QCkmk2+M0qbX0e7ess3i1xAd2rO/ d4cKfX7AmSDacLcT7Xkak2tSbshspXMtsTvPyyhK3Ra5+7qcyjNVHxxEmB8IQpHmPUffQp3d8s8q28/ h9+0H8S/ O6kM9U2Wa7W5Fs3bcecJ2TEgHAa0hkBK23RpxreST2rJzguapohriTXQhQdy2La2JeeRNsL1BviR0tmd 28G / Sq44PqgqcFw7iJwOlOxnYNbhgo2t4Jr8TLV3kJYqj1YmYxnvB4ZrvweeRRhmMBtw4Vb7icTsjr9gyTpb p5a5u150aem0C4n6hycWSIcCY3zRjWqBI8M15la7XYdKnkish3 +XWYRHvha6klqzl4Ia9Q11pp6jQnR1KXZz45H270X36/U7D+ 8ocEW2ajLjPN4j1VJEN451clTw508gigaHDOwwLvrPUo1PQa+AnrC9vUt8B0X/ wFnv5r5uAYD1tTlf5ki7ghEAwwrQIkoIGNjVekr2ZkW6qqZyP+6tXRksOc6gr6yACj9EZp+ JstlnpLuHhbeHo2CemoyUedA0+8H69I5y3Be0E8jXEew94EcXxYTAOZifwJ9N1L+C2my2d+ ql2M8Nn9uDtBXon3o8D/lCulpjys05hlnLSuowqJx1FKe11R8lzzDYGJi5ZXV1NeUYypQPbUmsYdG/wB +6u8fxtY33tprpoFzlm2uQe7xh7OsiNTmiUIAGwgHsFtip01PxnJ7EZjJiMnAfof2d7xNEyy+zW2nR+ tiBzsSEyXOuiT1dw5m4yreHXeVAn0Sc9ql9xV9VJprukllHrQ6XkEosS5AMUdFuF6xLGWKyjycSjEV2a E4qVcRSPLSyZbcDwFKr9AlcwaVq1xDuTFdV79GjSND /Y67+ihkZka0jqq2L4m7b1ukEksyv0j7gb25gWGR51aEp4yYL+e5u9f5JySKcDuvea2kFCb8Q2uug+ 5konKWiHxQUtq3oMq1iWrS3vZe47iSplfotj9OtOACfVK4kzLelmh9NL4Hn9nwj1pG8Gy5ZKfHfnLEdb nEwBvb7xSaYCDg20pWW +fvqVfNzJpClnLMAhx4EVd0SozurZJ7fjpowFs6pnc30kjRB1Anj0IdnE7YWacoWqHirBVLsgU+ z7fNpVKnFYuwf6ykgoRVjfgEJHnHo811iwLJkE271L4ffwZOHiZoicxAyvsSm8WjB/ cg4EcV96p1t72jnlwWuSroVUIFW18vkf3u7Y1QLxeqsyRXmDRygrg2p2aDfm1AZY324KwJrWcjN5mgV9 H +VJJ8x1Ury+ 9RZVLjtg4bh8Asta0PdWQgU3nT3V1vllmFp5f3FNhossoL5B1u1jAQIhkBijN34PDI2J82CBythLEFrR 9bqsgi5gG +08RY4nesVj4L+a+RP9lMfQor2egPTzF0uHTpnYlYMO2QhQ0+13ZL52/ sdyxcY7HXoRMlRBP97KxA8pbRCLagytZWdBCAo7Sv1d0DG9EJ63en7+qwvcuA2L3Bx/ TGoKixReOiLtvWkwS5m2rTLsHRdHN7xvXl8idztD6FH+ zCINNADPxXPmm3unFwLvmR3JaC8KmATATktMxI+ lyEVY9vgjx5RhV6jO5XhgHSfk6yChO9tZ1BH0NcAC3Bf4spg7p+ F0Y9DluTPg1erUEYEypBv4wrgYkEPeufdbcl5tJlYo+8l0dbGrowGdN4aB4FTO1JyCdcIFvHBvu++ QKs5Ltrv8xlSsXOF/RRMUDtah9sXCTf8WS87alK65a/8pfIJkpPQmx8B4EAW4glVmu7rKG+ EYXp0uAI4Fm2f4v5P0Ajv0dI/rO7prXsRdmM0isGWpoAmnOy+x1myaEh+ I5lNV0C5R7d1XuRJ2D5ukoK6aV7yfe0lM2W9K6+lSC7ch2FLc/ s7Rbp8gk993WC5oEQqZj3Y8v7Q6aOADYlL/xFe1Lapi1+ fuw5CiHamddqsxGiEyDb38z6TeH9g95Tssk5UrE7OKrt2vS3aY0QsgbADgyqbTIn+WJPUY/ X0lSvyT7z0u2Igij8ziys55WfXzpZOoFYw7yZ25B3qxJDbpmx9mtokUPwzu9jI4ON2dQmfhgxi3wja4k 5K3UCluQ /AIQe/ eEQfjXl948yUr0ypVBn6t9vQPFX3N6DvZPKeQYoIvoALcnAbzGbbbVDYFwxTOBT3qcGHJUGLlap1qr57 6yzu7cOR4F +nLmUIry5ZnQv0J3gXqgqF56j9Q+ ye9wcxoi51oG1E0mDv8x8Q5wwiw3kqpw7I8zPAyDpYV70EYnIUreHgtl+ fGSoqB75wb4cU9r1rtI668kIx+kfgxc+XXl6NSa96Qa3A1KcvbYN/tXTp/FNt/ xZwy0UhiagcGBzyJ0P1X+71fks3lrzhZPUsfKcijmkIIj0t3z/OIMbN75LLE8y0qK/ OH8cFklAQFDXbN1gp6RmXpEw0HxGW+ 4H4v9GTYfhyRsZal1yuoX5mQYRBmky1HCU6fowwTYnFW9ZiRkXBiOktzirdwN2QvMVSfsZ094E8wldfT xS3aJQ0iqr4lSJfQSRrlrlDcXxsSKvvo7 +pBULjpkcatdjPm8FvdDmBOceoJx8EyAzzvfph27R9AmAr/K6uiiY11uuE+z34m/ 4QQN4XHI463Qq5Bc8h0DJngcv1T3BqFutZaTC3w/7YOA5ajoMBqw9tqsYXdVXarri/afh++8D+ GLsVd1Win0lI8My8fdxuYLauW8NC4xE3hgCdycs47ZBoyakgb0s94Wrj7M5zwnjdhF68ftM+ IS7KDspxNwGbkY8NjhdI57knybRa8jzBt8Xja2ulRbo+wyzW7X+ssthzWN6i1DH9Kgn4qrjql7YHLfuz /1B8N/C1/K8RkkPpgTwdves61QFNY1caIqgOUf5cY+8K5A7qVZJ6+ 2mRm3IzfiL7NSTWHeuL9pj7FjRhlygdS4jfb7ecg0321g3uV/s4uDIE5AzLxbva6NxgFryUN2Vd+ v8tdncjQXUdejGJsSrUuOduLbBgwz8ejqfIXoMn1ZKqNX25D3n2rQLwc1x/ J6KM2OiJpqpOKOyM3uhZkl4KreRfRFcoOoeIpdEgcIXm066Frpnk5p0paz4QHm50yj5r7YZ3+ p7kTHOf8L8ifgWhZDe5N7qIE7J5AtQ1Ij9Iznaf8lc/ KQuwbrL8s0dLz4F9C0vKQFHEdSxgAPNJyAHNeswfqCDRRn7rfAkIiwsbH6lzWsc35qAikEaoKu7dQvuL ehTbXNHQ6mv4 +SjxQOA0WeSgb3eTnYWHGt2HpwNRgt658uBhB1TGSzxGdm9N+Z3+7Gp7roC99+Jn8ye7G/ ApdGcwxfHswIAWOuGuedM8mA0S8nZjVARHQd6ElX/ NT2SJuA3kJYLl7E7mKX4qdnFsPXXA4eul8twlxYuK1NoOjsc3cHXVqHzW0meyZ/O2pHMmXRkAynE/ IyOUWLEKCJkxy+toL9GI3b+5ubwW+5p6vzMRUrwDBFaqBeo6ptnNINRj86vHESy2n3o7/ atpavRyijfyyl88b+K1sYxbi+ vpe6eUxnWMVvvVWodxxlM0q7pgEOlla47z8lygz3DsC4wC1XgYLiPcGoaW7uWrKKyM3D0EZ0+ BkLlJgnMFPfuUz3GACtPFsFmVlz5IqME8lol193vshd1R7K3kyiH5KzxJCynF7gvkL56HvqlSNdJJ8VF RDIxhCRrxIQgYa1E5FAkM9cLbTPaAS3j7YTEocIhY19VhyT6FNolICMAJwlbjr5exSyOvppd6kO105yx uvt368N + QGCMVfgC2gH3j2OgIQW8rTe1BNYrgjDTUDNBe2fXYZ2YStQnaPXjfrqwMXKqqKEH23G307o1P5qDOcxm dZkDzjA1VB9AU2mV50eppESGth0eJdKJhago3ZI0syQ9ZbPzXeWtkVmZv7QHLKevGjgvDASqvXq +t2wH07Oc/hZb3sDqgk87A4Y7azm8EwSW/ If0eT7u6pkYxwJFrRBGMudhoHbXcdNLd10CEWDgMRmBE0PROGGA0Pyv+b+ MNON2E9J4ZuVDKocDrkJsNGLRn2gcYo5OE/1ZwyCMb31MD3dbntmjJqoYdsBVFr3QbcjoKAKxLK3p6XN /Sm4AVDu1OuFW2bJRXRb288mM1mS8M6ViGp60khNjSL4afrNe/tP9GwOtR9w0YvxSQcKRxTa+ trmWXdIElhdMuyqDIWY4+fDgDggCMDLZJAA+ Dzb76usJJxvCKhFUrCRwevyzKmZ58IYOtfZknQGdVQu1trdEUBjZgswUUHK+ kSYRCzZOqDzeWSJHfWu6jVtgs7J9fS8nccGvn0VvXiK2Kdj/XXp+ Jo8SeOXWKV4A8hIOWPzdMA6MZTCI9NMKXEWoFIv4TqBmUDJaXTV5HnIkPhBIvftaFX7LyuI93ki7Ply1 PmLnH06QUfZm15 /fYWYHniPWFBs1BADVMdZ+2CYq9G8yGYI2EdpUeFDWL/Bt/ PCCwtICl3WLNXlbZiMrHFirUnCSt3A2tZqQIWHNLoaBerQ+ SR32gra1sW9s1VfkJG64ow6gkOsN0VaNK5gECVssBamC0KROgJUCuPngQdkKKBIe8QlVgwdEmszPwlSC XEfhFvtWCVohKyBE4r9qegeXYiv6OmsfauZInz1mYsGZdfDLPogCgiZgDPxnjMcniuPjeA /w+1ln3/O57JoBySrBaML5hNmGM+ zmrG9dHzqDLLB7C6tgUwHPaL3pdg6d4rk78BBPzZ0j32qWUKq380d/ JCRNkDVBkFyYv5DyVeKABQyms8ejPdMRT34GN+ 2VXGmxTVMT592bBuSRBL0yFzHJ1vA2EpLUQyJlJksm0GqWB+ LsD2avwdG7oDB7B5eJnHXBLLuqtqDNWG4Bvi8Ex+ MurEzldxkL7HSLvfXIxVSN4HAUoIGIVUzXaUJ2Hy2iddASl6cSa2/qiq0dPgs+2rXoX/atJtNat/ 0vz66F6zilatgd87GzKvpPwIhmWjYysQ9O6OYRkyACZTGtOiRrzhNpT84nD7SIVS0/6xpt/ wAoUDevmGJTwrOYwFAHylcket3/ NHV8S5JW3ZlOroGOrp9ardOxzrPVvcQq5Tl92OT7XqDahkhrVL7IkZPrLh5I43z8w6FQ3zBUJL4LFQZO IYScw8i37d5qSLZ39IJwySGmnhjlZU +Pa5Pik9tUXbh5vS9+2krVjtLFDrOhE1moQK1+/pSny4UHPOsOuWwjyCyFzkV4DUbAB+ 6T9SG3b7qmwUegbvFAUXZUOcYQJssv4UTkqtUeSCNRAxIzyPvxPSPhPIM0YrwSgYThXSq4McbGHwYLy5 lqzhj5N5cIGcE3yt9p5x6GB4wjQMfsrcjiyht9jbZZXW5a0ahh5DUBP5lbk +qnF40M0IoOzohyM2yVkD7P7i4Eiin+ uDlrzDdRFYxh8Q7fSg9SuZYki6lk2FIGB0Lyxz0iSOd8yQE7oAEra4zf4m0C/FfqGzE4sa1OgW56LEED +a/E6K+R9TgCTt1ZfmpSFaw4Yrmkt3lMRg4A1iEVMP+ PyDYzERU5cc7ZSI9JefOG63ahbZNGzjHLvZgOPLx9ntltZhUYWioUNrPa+ DvhagI3a26fdGzXkFqydsxo2Gb1l9aGQ2iie1/0NEZCKj4rFYVzVk/P01QF6t5vuOG+ bRV1Zlv1VuKtqgllfIDqib0p83tCrCFb+zzQiS/ qtgVjQIbJW3ddC2CSUXMs2beccjGfaSz8gjPVqIZXfI741nC4ksssyMoMciaHUvnB5Ijz9l7E5/ R6S8uaFFftGdqXkysJo0bgScuDDoWp8SPbRiiza0sAUopp7awX2+7rasrromfv5xWSn0hQ8neEKhjn+ wXxvfFHmeKFSOTQnLaMm5tFBqhoB5jbGeOzteRV7H6WL96zk2dh4Xz1zU8xgivcPVqVJ26qGJDpmgfRy 1QG0B39pqclSzcyeRLmWv /YHzTJ66CJ4Bxu8WrbPRk5aU5gwdqMcTJFg2qydBGRV1TcVPSdhs0abdz1IIUxB/ xswZaXECB6wItKvwJ8l3klb0sSkeow34+ pqII8JDApEJarHEP0wZvRJF1S6OMgW1aN4zpDI5sKQIhLICZMbGswBtsGgaicxKNLx51W90ziTgPyf64 ZA6VRiD8kLCSMfFvzCUccnMooC4n9QSfYjzXqpgFK9xeoZftgD1g3G8yUvRXVmyEx3UnIi6l6uY9BcPl 4rLvIM4b3p8b5utbytvlmm9puc2rvnafo +dNl9+6PQjymGiWO6C6U/dh2pcojZq4Ltp9k4p7zs7y2yOXeW3WI/ Jaet7lmh8c9jX2zGKoHYiDhJhEfTwGkzFKuu5eR4M6aIHJsy5Qr+OepdgBpRT07J8VSGcG8m+ 2pfZfmid7zGdXAdPpHgDBWJppEEC4pGrvbcCP5JPBUqxbG0cu7ywr3KImeKgYQgISGsQSViB4lPFhLXL i2rpjtvU7Z3rah1etJqQwH5gBaKhkTxBdhBjQLr0dRwQEs /KDFKA7K2WWTktdloi5zcoMx5zbb0yW3IroT18El2169Cwx+7ghpi2TR5uL7mqPPxI4ahOoxh+ Qil9zAzyPLmaNrYoFO4877JEpgbPEZOImHWbczeQVtwAdjSMXWLJR2KwGrVKqppTOHmYNn7Tx6uladtP YCX6xNrre1xrsF2RswdccdZvpdTl0MAyKfPtLht8mtJjcPuMdU3Ltc008TdDTOO5jGMDP4cNFTqtWAgN OEmFJ8hFtjYNjJBKZc3oitba +dg5txer0hmE5gB281hsWujaXA9rl/tKLb2K+ RE8NXP2PCXYhqLzQmWdf6zaxytdEOP5Ky1GMhiG66in8Y4tZsdXKYykZqR8ueAJEmfaktMQsKtpxHnBU wf20lmqlU9sI0VCkxb + JPSTPM21r3umVF4U8UMNHOAFMtsBt6jktPbIDxuCv4LvxK7sSYOmanUGkTSHaoIK6drfhMrHA9pzGgSV 47K +34pLW//O4yK2KV9qge00yX7nu1k+HGUqclZQ6aTXiJR0xdhrcvTOSAUlZBHwIlb/ s6yZdz0XNtm1DisQdfHgplArIMAUucVSkeC5Yzzyel+1CiSJOmflUBTtDqOI/4Hja3Jp89iXaNqQ+ MrypqZv2dOiqlzDMt1qWdUwIZsnuXuwJwRwa03QVWf2FNRI3ztwucHEZtIHq0WqXwY+ PMMIWPqneBI6tUx0kGZR3eabf3llNpXLp4z8v11IigzfD2d33KrOzms2N4qeENwuy9ylxz9ePrGdurQU A9fuLv0wMdsgAAdCkU9zvMPM +G5W3YGDihItG4+ymyTj14n/DlqoVh3N1tY9xEERoH8LWAeHu0zICoPdGsMWanibs8znGt/Dd/ iW5c1QBBoOZjmAFDcarAD+ AzRVcK0p1nAe2FKc6vy9dSPSwUvNcleim55XGGUvwyOUYCebRCXGvrMjnVJgvVVcDtlKbmrhw7vE3f13 zmw8t0FYQQzOxuqb5Ai2 +0H6Xm2O6U87c1wb1Wv4U2zMReyMSElzKsCaZl8+ S2EVHpOXvRgHTUGc2jgeC8muf6a7aiayIYxyBRaiVtXxIIIwyw45l0mSRQqxeXXu2fOZCl/ wEwXnZC30lAfeSqRbezpPwlcqe+/gR/wE0ksicpmL9zqcdBcdI8B+ edrzFJ2nc0TXZ7ssycxCzLNDr9wAqODtmW2uft8Ffse6wx7scxg68+39LbYidOdLVtNPfulfR+ K1CuPvnwy9vADC1ZZA1svNjaemrl25zvWRDyVmzej8wJijvvolK3gZPEIii4LTPQa2vwnvP6cwIeYKk6 9hGoD3iDVz7COXCx6vfeUBBAuAXpyl46beJE34w6SEF3zO3bvKKnG8c5gXxfZjkRhxJgGwXvGdKHyDcN bKuGEpc9rXSls4TCUCHFRg1EpnKB65IeHWr4wqx9r1RWNNfSQaLOBtD8xHKM9mwKoqI4NtQVFxGtirr0 eoPqpM58 kC7kfrr8m7/w5D71AJZzNqq+4x8oG1h/PJ0R63mAiExLh87OrbX0qMwKWIr6ph0JBsRUYNvcRPYD++ LVlNMhHUDSHnDmB853hlL3hzARud0PhjL7j8HENP6EMoWY6x3vYZQO2ZOyTNitNAiVj4CsdDkcCOJQg2 JY8kNCgFS6zKb9IdAheA2G0E0SsLi0PfJAc51UvB4Bk3pB /iey2lhkeiuYUyis2vxLabvJ0x7lPOdAJATV/ tJ3KKOhk8VUH3KRC6W2lBKHlnerZ9kNRokTAFlO4f1q8ia4/ rynCzkllegg6uffcJkmnpx8Ge6ls7qsRTSCrtGdYVpKZBAI7D007Mw+ LEnuSDLgrOrF7doESud6xSaiWoyXPDZ0p/ 8g4edTPKeqWDkioC82dTu3POw0dZIa05q0chpDqYZ7xeiyRfNwKGBdBVuaZMLFXpnfwpCiPVeZnJNxg1 Ka0F /JHWZ4F72kcXKNy8FZcHVgIgw1MEZzTOXMaxAIK46wCMVqPB6zcP5933+ ggH2Rm9Lumv09u40V6bpofMi5qrbffXiUXcqFRQIlAIrXHYiDSshWaeWTdFONC+ AZw5q7BjO9nZIG4fM6BsmiJONAUPKjCydgNAoWSmGN6LDKIj9yT5Z7c1imhvnJiBwPgQcWY3rvrkCPaI /cVDyj9JbeZ/YEJIuxxJtIvfTYWb2o2HG7IIaHo9xOfdR0RBQNyyLzcZQOIL5ex/ aK2pJdSt6123zC2VlVeCgOj0hR9l7IQYkzbyI4rdElckoqEaWJDXtZXCEqqQ1dpwqoJt7b11QKqdmRmh b4Wfs6d3QXDEXiLUWB9YxwJLbfqmmi2AkcotvRkueI50YWKTotyzVAHBjbPIXORS1NLOzNPTNkh8v9FY 35orhIVSRreZBM wvdfMjCuFlE8rPBGN2cy7hXqjF1PQgZ5uiMaRz162sUgjp8kq0bIbn9u/Jt9z3Vau42INpbeklG83y/w +tjy4g23qBEggTh+jtSC9sRADPxzBYm+ wM0lGkgrx9miOkSklHQzfEQA4M43mU6zdRGVQk7vZ5x6Mel7MfZOJHK8Rzs5sef1VULSszXbRtcSjPPh bXCDAR3bbotJbBBX1FVyagElespsh3JFNQIB3G3sc10RbuYYu8bZA9JaMn4m7K2nKYaRzM9icmHEPAWI KvFJHKpdHgcLGXKlZJHLRniqwdNc 4Qj61xvcIh0qpj6QJih0dExPeOgkBJp5+ 0pOfz0q5L6Dm6EmHW1bV0NqhdXznQCYWNdDEhUiVhx0NsLMDEKzhAckJy4A59Z7SKx7USojUIEFqCn/ KHUKFB+ Lax3kXLWgioP4f8cPkVBfOhAGbOacuDzss4iLauB0GnYz3NJMVLI7HuxqDwfg7RxsQWWgOLryMjn36sa SILdzxID7oYwiIRqNoMEuhrni4C079nc /ICtWJlZsEuU7kebUfC8eleVNTkFZK7fwPUuts98qn0gtm/ LA4hms4q7RnoCbJPRQsBcFofD3xwSPRppHvBl6HzVKD8b38E1HV4kcS96EsRgFQDvkAXiQjhkCkokpWk RpFiEczjgXOOP7ZxoHqZyul4lg1G1pSTLoZ7BzAm9baGmbFA9zBxHgeWsSSbPYWDSpdJJemxI5AZA9lA JcJLOvfXg0gBRtE29fgNOyle0Oxx9wy66ZFaKEezPNuD32igC9LfuDD1uZ0sm4 reDZh9RQDmmf4U6LDOwD58qEXovdsdYKRPzu+ZCGYrkLMGVzII2+7ttu3bogUSo8fz55SjgY1J7vzbuu /hBSvn6kSGbnJX/ 1YoHbFMiOacHtkOA5Keldzi9EblzcJgZ3aePUugp2ye8nqYvlKSoGXT6EkFNzMjCqgX7fqVF34qEy7Y8 7t0UiNXFbJXcaIVm / BcTEaAzPDqsJl0FNFlxjvSjkDmACveKjun38vr8z8o4xXoDtC8is8QiqEn7iYPLas0xm90LLbNQVJfYK gWIe2IVSNHhC9twtpEstUPNlACPl21unV8Il +j6usAxwpFRJ9yUpUVPOOwFB1dVkzJMjvgG2Bt/ onJVoquw2K7YzfvZD8ggY8NlBLatJnwr35qD8gxQcBgglKwLrxtrlTfxh5BQ5eOpYWpfCbHSOhJTxfeu v3tuvXDYbOwRsfxai2h896b8W1 +u8hGJH4DrJ4vst3qm5fj8B+ EbPOj8HpzDWoKSJqPM6XdN94GBAbZm3qb9almNeDfRpdFtHqhJnKJV80AZVSu4b1amyXjiUkGqwkOHJB XSNNDaHbNbA2Ohf4TqWBkzxPWOsmBOLU4plTkCUPglLCMhNcbKXjHHqrlzvvzLuzZuYstdmvjCQswFIs fwLA1XaYwNSy1cF6O6fa4h3Encpxo9HO +Y3F2uR66iGz+ eIk4uw2qNfw4eNacHjf982sc3S075UtT0i7HZyF8GduO4w3IfZWJYSdxsm1lel8o1P5sfoQTBXSqtyH4 d3TdCBJ6w9xx2cPyXpcehNGnNybFYIc6oQEaAhl0kT2unWFiNLM8uuQgoqZJoeTYvwA +Q6p4sLtuV3xmpB3Y7Jn+ 0DG8T34kTblUyFwYYqkD5QU3yZGe10D0QR36JSGfyJ0RdDAyJMixkMpwWKGKRBEtMELPXxykJyEbhFZ3 8yMZcRmknCQmDAPtQhZ1zy9xvjby1B /OoMvyrpvTMuoH0jKJoO78VNzteqP1zY88meoo+fYkob9g2f+ SgJnzDYeOnmORxnkm8u4xV58r74hyzSSRfhoSRI7UFCSnfKiTV2es7u+ IUepUGstFaAudu3A6mubq6uIJojhxCySBPkXKeXCuEt35RbdxPdVxXuvyTcWHFn6B87pxhkex7Wmqbk5 cgb4UYDu00lUksoxmGUkcegTyem +ZEC+CXF7TfGHUUlh99XJr/Q/K9gWTGY11Wehvk1zIBavflFS2K/CwNMVRbl77cQI/ AwDAxrgpJTCNmALys1zfke3vheyxo7v3NAo/ eucw1Uv4iQ9wWnwnTaZLxieuKJ8gE6Nb45oIWuUUahN8m0e43dePZs4cdow5b0BqMBAZ8miRQ70Kvu8u csclvOwtZJcBLmGLeyiNwq /ee7YARak+Xb+KGkkjmtmjtrp+JdG4r4g9JzBZgCIYbyWAvV7HMZBwFkwMIMHD0N+N9U8d+ PiCytO7Au52JXWZZ3efjzz4rpZmPjCcHMkuCszHSDIkFKJhFsHizejkK73+ TFk9wvYgW6hkFNJ7hal9LL3Wted7Q2dPWbPrbmq9BbuE9PnqVXxflGLL1qvynY9H/Z+ vN93jtWOy4Z8x7xiWEV3D6Wo1TE+O5qzgUOEw1zzNb+Y6ccMtaZxcwqLGm48tHyQveit7r0YI+ NdbFyXFqpy63YQRhjBQ9t7g8z10uJOAnkmEnqJGelmld6agLefc0lUjeQk1E4QHY9zD74pa3jVzgGHN5 SG1K9D3IpQ0Cat8ylkP01W5OQ6O70VngxoftoIJo4ZMl3YT3iBEbbrd4li0m41Bndv5 /JYlYM4iUyi4CREUDdKRC0JabS0z3yLaszwXb6s8+4g2lzTxDr1ZKmIjWaShOy+L/ UqfA08hbWYfflqJ0fvS97mCpz1O8XuBQ14rewOjbt9n61itDkfp7sP5PXbqsVjmHb3o5wlxeNl7hP2W5 a /M/Jtu2XSIq3Fo8mxj39OQ6QYg7jKrw/drSzPINQhjvb/VjL4p1Kf1LJUdn3AS8/ VR7TFUZWWLnKebwl1SUZBKNVRuIjkraI/ xPkeoLebhJfRebQmaJxSunQrGaVYuJ2HAn5WumTld17on7Ql0Eey4GwK0MMuis2mvgFFEdgdeH2z9wCH Gaqwl7UuLjzT3JyzYRf3tnDA4BNnLQ2u /kjdxK+2cQWzShKVWlOcTHaBs0D0j1gkuwHuVDMMqPpzD1Dh+JtZPjYIJ2WqGuSoNB91T+ 9vXYm4Ep1z0pu142BEBfCq+0AVkjyE3QYugU5WlJbCPr2hagPbTJL9VpNNs6dd33j6+ ex93Ys1DbvgWwn29HcPGDBee3ykIkIcKjUgbJEkYTsCsl3fAvv43vkkcceuE1VmnCzUyvyxoAtlGwggw q4aZnENPGXZjrLQhkkw1ogdG35Yb +vaxtvN80ZQixLmfbgQxyeSvDUA+KPwiwRYyIITgoU1FJdluYEB173c0P2/ wCOcoPNlAIlrXEFaZx2iU9pT30bqF8BJFPBlgVP/MlZwpZchYbLI+ 1l2iz2Mq1GujZU7hf1fnxUAg7Ta8o64BJ3ml9J/fES5T5q68yJc+ FxSebwpdvsp1y1R7z9MReJ0iWy1hJrG70mh0I3MEd+EibIRxWkxUf36bIQTAOQxWSZK/ Dywgd2r5o533bY/Dfhz/fRhWKv4pvD+IiGykVuYcZOCFHLernvBja3xCjpsPJhJbQaE0PQEvl3F1X32D /Ouab1mvyCmqSK+zAK1nXRpWyzrKD9PbWTBcGCjJd6PzyOc0L313hiOlRgB9jO4Fh+ Wap5C40gkicBspnxhsSvptMoxLv4/kXFBcvgoXkL378MYimlPYq/ qYhHSsIWA0u0zRq0FErid8GoB8Vcu5zjyKjKSK9zvAkcUuY6avIoO8VmNQrX/hzbQaXo0+ vncDibvysCKs5JjK4g4sHeF1ticIXFBU7mZAVybBWSYcmbdy0rd5yI2zru7n1luAqMxcKAwmZ8rhfJlO qyWpRg15Fhk1kKMUtL51NJiTUMuc4a2lAP8kYW5hEZ1GfZagUYVWNyNAOET6ziICqGSjkXLVGumGyIM3 SOvUeB /w9dgiWtr/V9WM+idon596a1/ WDcrnOzUU4xejDzkjz0j9nfi67Johe0pQj4xx3qOihe6neM8fQzpIB43MUww1gFs3H4S3Ic+agvm2sG+ 7x5EBjraJeUriuaBts+Fo+ hjJGX6gp70Fx1T60kKZelcp2W49VQuwc6AptQp85oLWuOinbT1fta3wWdFvZmSJDref8l7m4q7OybWCV Z0UBv22zXO7T +WYo4YejJs00Qu5rtCD0pM5EtTrvITNTrdV9L7dt11H3G6pvPQet2RJTPXI1brVLL3t/ L9VRpHLvdE4q9lSY8N+6hR2fjw8T3uJeHJcUlc2WH6Uh32mx0MIWwv+ z1sViu6LK7BdLlPAE5Vl2drCOfw3LH0A/CRnA4z48X6Z6Y4/ eCGAZr52SXbW02JBcaFq30k6w9I2MKb5m53ZjmrXh5hc+l2+j+DazeEdumeZhCfAnNe3QoSMcTcmR3+ nQPXgvAaypMqoofz5MxIVcmKysvzoUHtxa3KgeGZeZiuhEcLZKyZJPalLE31fDLJo2XdowCqb68/ jO6s2uioFlaXy7l3Ha6z/bEjO6c8dm6DzxKwbAoPXjWlzl2aYGcPLVEyII8PDx6Id27Ll/wnpGt/ EPUdT+fVnnH5H7eNx+lT3ZuzxSEY65P7mDl4vflaUqxCBZfi9EP8FYrqABbh26vv9vEw+ofEHV/hje/ EjSPAfgDXvtPhtrjTrrUtas/CzrqmmaQLawudbhutGvLbwTBf3/kv5x28MvkEfez78+ 63priVn5A0puitv6n4BdtI9N+LrV90BuZsipx24Jcs7/SbIahNcRz+UAsT8EonudbMorLvSLP/ ALBPrb857OFz2tRAGlTs5UyrSQoWT4sFDAgteHHnZp1LfjBMehB08iSXqC9VWnIxONwDqFmBqZJTrUxH ularnQb5zFqJURW5341Qghqr4VujAUzOqWy2c43zhwfjHk6gPGPdpLieQsk7rAT52pupNRVTgOvyzjTE BAnocrepDOYxqfgsZKEQU9o0Ympla4bkzA6Vs /LKoziWJO3n1FAF+mYOkvs1qigW3oXxSRMfmE8nsdvtA+xvnFD7mH6a6oGY1A8H/ ARaErDdSb0J6p4GsvNa7FePf1pvtfcIsruc6VblrJasOGuDB8lrk3qfCVaxIrBey42ro+cs58+ F9rJtt4X8AJLoOeNT2jg/sCAw9TiB3w/NWs56xM9Nop0Y1Jt3EEnzksp0u8/ LTSvPauypBhY4aVXbZQsVHGoB6RmTbBwM026wpO0QSEVzPz28Qt9brs4LWtmNne+ B25EYlbMkIOsgDRiz7SnfMg2Z2+PM/eN4F2vGb2Vx2G4+I+hxa5Nf+ PBaeSaCkHjh7IQBe0wGRHOlgVoHV1clswyIOQC1VkcNjKKZcLespvuJ7KeAJPksL6g9pq4GXqlUWxX39 HteoRk2qprylE2nuhixyN6xdpkI9mGrDI8ulLZhH8RNfV /ACZJNpKxwTW+b8eDjTeS8t6fFZl/ 7gG3pZEnZ7sjaL0ef4SoLMkeW2JMLAdodemJszyl1teat4KlrtD3awH26neOroBwFe6V1TYIJw2TxNHg ChNiI1Ujb79n9QNzy95fiOXT1F5trnRHZYTlkvbKFxmDJoKYih96IwI /RnJBvSqSmpiS3H9GpgWHL6gX95bB40oF+z7OyRXqV+Remf2mXzildC0eFr5mbKYYKjF/ RmZwYNB5FdE5AYfI/e3l4D5V2t2Rl2fGpRp+ZUf0SiGJeAm25u+Evino/nlSvR1fb1o+qyLY6/4itNN+ zQy+QMIjcIr81JE/1UlJh80O+dnj91taYgo4iD75R68yWAWyE92JKFdBruF8QejgoTYksmDi/ T5sSsaz9YEfWWbDx45/yXtBtpKaa78CDBaXXJItiL+MYENV6h2E8Grfzgk/ gmC1ai7pDC82t35O5UvmBxrHSJ5jJb7L6t9JHmmoa5clYKgnCDVObVWgUahoqlQzDtfGxyTcxPo662g0 JW06Nq +4wxDgEAHSjXooLFp0w7FM4Y3V0KpTz89frgoiidYopK1/LMIkw95qyn5LrKiP2y/ YXZCqX41eaChutgHo0gZMAPfMa3RNTI/8W6Ya8cRY2D6Lo3lGu8+ 7brXs5sqeXkU0u49yR6GKxG9YjVmgEjTb1XQUuuLF9utzKwBZ6nWv8teq3yvumyRViVBi8ip5dN8IKjw OXdieiLaey4KpSGp0jhADZvaR0u5X1voWd2sTm23CAMbX3K8yLOuKNhT4uV98UIpRk / xSmx6H3U8YfwTBr3F7Ou5uSzQuyfKFvx7mNgby0mcMpwPsmqrrpAwWBo8Kwb7U1m0UK9sba2NIXG4lJd t6941lARBkTMCUV4bzdtsqUvXX6nRV10adhFx85wOM2xjAxr7i7vFW7t9Dr1fI12VXKfggt2YtkQxirZ ZxcZVH aLg/fiy7srt6EaxabyGaL0eg1yohiVnNmjfqbmHYMy545V5ohpRMjaHuJmwvYzvxG/ b294gAc2sd5MKzdkEohuTKXXdF27+Hzf5TrJ8DrK3j43/R/COmBhl18vItE0UlwjTzcTh/ TKEAIQb5k9dKwSWJJ+wdmtYHirzEg5j7kSdbFG8e5Q8/wf4ju/ Davufkug4R7wa7FlZ72aySTspnb3qmGAtfzcPECeMBDgInPn1tJTqO0We733KqC49Dj0sSid2T6CrE3h M2BbZoli +CXIRjFCQaxhOobtGkE1MLR4ZR/ qF6lPE6eAlRkFXEZyEjvqvJxbY1kHzfYMyS4uwYHE5SokpC7gWW3cC736mdw8UHU+ P9J5ih2YfdT6BQaXtLdjGYLn29/ BQACrIpbevrLy75uUU3g3M2r2voE2G3Mo1YD4L7ZzG8uHHWZcUB2Npg9ojwGvuYozaE0iEWx7j5Cgrr2 QlIl1nAF1bnQrTf8eZDwZHAa /Egt5/L/mu9y5T7/pcGkXkPjHSIfE+vW47SpEOLcbLoT+ d7CCi9UN69PAXzQTF5ibz9wvfwWoLA5Q7mvNjfU14YGKYYj4AjT7OlM263PcXmeujRQ2YD6PmmDz5tO3 zAXK2Nxx3cvBeKSKxdD7rr0 +42D6gbFin1kcT74gADhXa6sQ+WCBrkARq33HipWyGfQWh2jwH+kW7ma1d3FI+FPHd7Y+ XA3YPfFg1inIuK9e9egrM5qkHnRs8xaL1ofE9ozYDYVJpi4pWqWbtuvkUTo0WqaA5902qa3fu1dBjzdO qnNLF /0TFq5ABfnFdXQQcCguKhITpbwaIT8PBClNf5jt/aJNSPm/Q/hXq+r+RjD0UwC/PfvJgByFtgP66A0p/ CfhDw+xfRM1Lc63SN6T56I06W2W13PRF4t8ZKCNhCl/ zyRvHK9v8tOso4nmjIvFyRl36q7B6Itzwp4C7GzZPrY4qDgXcc7y6FwPJZRkqvo2nE/ pTx0x9mW82jdLWojLXNBNRAXo0lgDkPt99eRql5L/CfxM+ O88b6Co3f97FjQy4iIg2YGxwZhurPrmaS5326QqPk9Gra4peFS0IpGdhw4N3Iuo+rW+jutxptvTE/ C74dC8adT/ T53H5Mu9YpJ36Gw6TSyDZrNs4G9mjjsmdpC40V6oJoC6jXEv8n5Cmv29kim77XeaZhBgEyXD1SsORoc8 BQavG /S5ygHuqj0hfejVwsEHuF1df0fTKe6DsQPZYrSjyO9aK9rPBR6GQOPJXtustsP3FIbQBk6hH6pzxL0F+ YE0nZnR2VGub/pUo5mWW80IxxFXgQmzd4eUg1Q60b6VK8x/2eO3+jOi3PmzbpWvApxo86qcwvoO1+ G6aPxq1G8W74x7adf2NEldiDPyQvfw1q7crbFw+5xRloyR74YycZhqH+yl7+ e15pdyO3S5Hl1TyyP6vY8grboZFlxhNB8I2fXLTi82o1frSzd35+ 7TN61Dr89i8jidfAHrqKQsqy4koZKeQKl/CmuNvukR6OVFhtW4Fcp90DE2ahoDynl6hukqPkFU/C1/ jp0jTcQInupdL+ nPFkSfNfu101lbOxJinyMcZvQQNbyHc4iSoPsoReg7FPTEme0I8z15NgtihzPGoyJaOZcyJfSNvUFW1z N1UBtCxCaFMFckhIL5wMglH08S /Z/wBc8S/EDFVhqXaDZ1p2ZrEcNbL8Tyy1Ud+ pjHApfkryc1h8kfx0OunoDQW2uBc6bWOMaBzzVHDNfis72S3awLWEggR9V3NgLQqcRl+ rEYOREQidYkunOXFJjbVMyILd97y7r7JiqCQ3bHHBlUHbcqGLk36Z8IDjC6E/gFNtAGJinM92q+y/ BxpcsqvOCMn4B89cf00Zmn3g+OFDf2BWg/GbWvg3PufvM1Xf7rw16KhAYkufyA1u5EOM+ SNxlfmz3znIjcHsH+9IR98B90CgHJnFGsjlVYPtkc0zrH+TzQdEOmEolysP9e5+ YkPxEH9kcEi2LJGvJ4vHnr0i3YorUkMnmnJq42oFRX0tsowxK+Ya6w7S0+ yriiNmXqoQh1EG9SDk5DPYZNxlkgtuILLqwI4ZEd65xLr4A/Zt+O3iL4p+ ENHn2ec2XuUr4Wa179s1WYZF2PiubD5u4eJpGujPkA8yA7nyvAlmhSB3qttbxZcgtDjzVXL16xROz/ C4UpsKbK/OZDx5gaG3K8gVzjSbxrZSScgAOore9H87wotBjfYxeq9sSXeV9lo4osIifopti9T+Jfw+ r8pfq89xKdxgZlP1t93KZs9Yylt95RE/ FF7Eoil7pBMLq6xC1znqmIdXj6G42wMrUVjcqrPnuo5B4fqn7B/ NhXfre5jzjjt16JjenHj0lkVLenigw83Dm3kX7hpmybRJCAjilAhQTb2hjMM6ASaRIcNO1jhI043AKjJ O17I8iMCDMmJrStOk74oyeVbiJoJ1dbH6VKiIzMGCN0V3rVxm /s+IUR2QHMiL0Otvj+YKrdFwMgatVBZgujkyVdPGA8k1qykrPqc2clo9Kuv3XwXD02dHZmbDDOskwE/ lvrS/MFsgp07BlXwmzcIXSWF2lSKeg1B3AlzBKn3b+ VduE4lOufIh6xAlhTqi33CK6zzfPb46ZdWTrByaWGY9rp96WpBvotRpdefn7q+ QHI4o53wsSkX4U7reCLla/ W2buhtRyxhvRgYylFHFVMEJ0LRHyqJ9kVDskCINREQJmxCynRiAAtTfuARI/ HB9Wle8hnQv1LJ6XkOxbbPybA9ZVcABaoINKPVPQpEPQ8y37VJ0JN1elolNYpgKHcHayaZqMxK0RWXa7 1PrrrF16972LZnYumiopzBBdIRKtOgfo4Z8dCVoIXOet78mlCh /TDi9A3AsY2H7sJsa0gb5csrAEw710Af69GAR13tA0+zR4F6X9mZG165uoY/ laa9bHUfAX8yg3N2ZtAkhG5IeA3G+ ukzQKaAK23HdCNanFtwn1A49o21oPL9SftStWsUwtB5zfidFVXfTPH41Hw96A2v+ FA9Ih6dl5XQPA1g4I9F1S5iK8d4zcFX5Jz1Q4u26EGRFmsTjgumoPKiaSIbL4hTIuL+Pvxgt/iT4Zu/ RRsZShaVvkwAkTQJdhzQ4up3qsrEupFzer1kuu34jaTEeZ2ZQT2dgXkjj6duMCI7pLbmRFg12edQ0fqI vrwqk627Y5r53 + G65ur0cw9cFZKjBV1EsVWaoCDl8wLqSDd7XhB9I9g56MmA8r8f5v6M6zzHbgJnQ5WvhLq2sDvi4HJjh4 fu82if1l60WDDFomYz1kj8KS9hefPeKg11DUOXS6o1Bah6RF6Xq91AhXa0yzPavLZGg4l6e0vXqoWbo1 ciG2nDowqw3go1SMbTUSZJksfeiGNgw3iD2dnKe3tCje /wXaN8M/HiFpilrfpIHsGCGPDxUy6uL6GOt0zx7WDEChYW6+1v44Th9LPU0m5OR9aBvcOBwo+ Y4n3kHO8hAfS0AYngsLCwLc8noMp2tUoapQqYK9/Z3ccpk+ 77VfTT2YVuffzfixqV7lwTrh2wWtWhdJ5gA3nzq0jFXMfhg736Kd7ZtedwotXVGRbw6xQsu3Li/ IWbEmwk8gQzaoExZu3n8BzDasw9O9/ 3o1Z9Aqqtpqmgjeg7h1Gpk9yrpawQW05KB7sEvrwJl9EKQnsV78whG4noxImmPr/ mPQ0jxyb73xrqX0IPA8PcsH/ VLwnTbCXf5b4xh6gj2yBknfMt6suMqR9sPkdfNT1zDoeAYRJ6tqGT0hgs0E0wkE2D68T7ys0bn1JK84U Ki6U5zItdoLu9xSHowErP6Kuoj2gYWu + 7UMpfRDSHPqWiwdU1VaD6H512t8c8TO5o91v3iw9reCbv45tdwdbXobw3DxpsLFrwZcoScKZiM30Ln5D tD6jC3z +PradQYftJmRgJXInSkKwmH456n+ jFo5AxfLHs8BrRaL4wtMyEiXJn0dvfUeUbmSjSFKP1mqvJ22FBRd3Y8Z+ Wbt0fDxrb8TCOOwrG5UT5F6KRz5C5Kr+ tAqVztKCe4iP2hI9pfxPUVDViuLEyHJqP7rdXqVs0kg4yrluP+Cbde0Q6AjKH3+s6NqOn+ EkFnWu3LfzPj1LIj6n2E+lapaF5pPoZLNomlNycDoJ1jBO+ C1Ryk3c7SpSLC1Lcmr8CvKh2JILRufQ14F6lw3SF4ulZf5RyW00gzKgn8uM3co8dexKV4FTnPYF2uSDL mvotPDd / qExYguaWKxhisHeckpWfH96b6btxm6YpCKogqfBF7qYidh4l3FnKFXGfufIyPPzGaeBuxc0vr3fj2m27 tpmbEX4hlMzVEYpRSA5LdvrtImo2wsSJpAkxVHjbvfBTh60GbQ9h +AGm+Nicole/VFp1FnUy8lJDcrzrkNpJDaBji25y+ tSrW0CCVJAjVa9H5L9A4MBFcM20NZbI3g8t5qqGLnsNKBAfXsCORMUHZcld4yLZWR9pBdA6Z+ TTMX5O8Pd1/k0JJKoUuOOssZ7+ 4vMED3oPdIwLQwFnACFGxCmoWDOlr1LIl6L1ekqITuYi8QLrIdSooT8Khhmff4cvjjZf6xONDAif8jy1 1ogbDjQkmBM7L49oUVscaJrpiBGmKBDuGXchSNyQuv0km70N4 /wgW1u137/7fmu3BwsqQa8TNsOeWxjj0W4bjFwCowUwPIH9f36NjaEe5sRgc6pwB62J+ bZEdc75IoWkxu2xqhTJVhwDF3LML7bJUFhQPqoEOLzkfl58nCv4Epbv1aq5zD25OJtkjtKznWsFmYkDd GrMSr52eTRI1yeAycQulFIygrwpoGMxtAZ /Erluwwo4jtJlyNL+0+4zdlM3qhmExhDSaDrMDCxuUYkqXU1zK0ydsuc+NPEuk+ F8Rp5fvTzMmhzpNGXPYtrule1eLjyRPSaCkjyTy90i4ex8bWFIVtj7aXiTttQxZeE3MmVwqi63UO9cuK fPo /HXYSv3NoNaTFSzvClUtekfiG3FvGO7VOO4o7b2Nhcy1F8F5/iXD65yp7Id3tCZWt+ 484vhFmQBLUKeptt0xuZ3srTYJZWcxXaPObdQsxTN3upTo1YSCODqDatdy0PqhebXNYuzdyPlyOD8NoY w6PtZ8uKyqc8SzdD +H1P8qLMD5Je3jm1yqRNs5ubbn6k9KdOoTOtdr96CfK8lv1+7p7U8qjBGCIDvysYwSqM2Z2k6d4Ny+ FH1W+6EFI7juTNSdkwL7rU8UMMbgsRZpJjTvop6Kla76T+ cEHvepWwO43lsZkORtWCJetcu0hm7sStNcyxg+nfhRKfOuRNrpXi17DdHlgwCUY5+ d15oM2uPUZG154v5inE116QsNrWnmNX0FAZvLPZYBo1noVoDiCRIg9+OApZIChBxMYu7yhqdKNx9qc7c +HrD0k9aX3NzGLnZnRiasnXVKXlLNBNUsKbESJvsPCC9AOZv/ELmPjksYk5ZrlU8lvW7mekrkWFqQXU9 /tKcnCfuV/bm7u2DAnuiA/J7cfC7/RUPAXhCE5YgFwCm6pW+IyZ9pBBipgyY/ JIkX9cvoOV9BYdZBGoWuph4/6DTCEvr4LcsiZ97XJsE3VwXoCBk771DypQ5OWBTA+TwD8JNr/ qpPbZ5Thy9ZqIDlwpg7SUvJl7UL6o5pLKCTJPtktcA6CjvdA4Fo3Otr6EgLBBYDjOHxg83qZzMr/ exyAngoANp+1/q5JY3axS3qxENPadlj7m0vS25Nn/2V5nmm91Xx3ucAqYo9qt51ug31U591/hx/ wVTrUzH1r8wdsTk4FoOCyGFwiz0AoOFmeo7YbrUB9ROhdkYyIH7I7XNC77vZ3BbZljcz2mtULGMMiWl6 +kHCusjVSijFKujG1fyg5OHhfOvm92BloeNl1TJ0qa+9HG+ 3G0ShWELpPsoIXHces8dObX95lCKaFYvcoRtxTld2hlCKaYZeJCAFDHS2cD3roru3Nbtl0GTQ+ kFn63S7RNOPZI9sYgxvrdkmi9Wmacf6P8dVWpC/AMFBnJc/F/ zCAEXD72XpCEC3JYplQV2rrswsWs0FSmV0R07s/ If7zZIKJ0VePkPdQt1UL8JILoOrNEWU8evnPxzlZKSUoa9i1r8lb/s4+ TC9ch7ASFkB547qCNuIrXUYkSAViYqs6feOOCEP3fE5k9noU22rrbCNEmttnw5osSa5nLkOYXe9Jbgrb 2tvbr7hsg2mbz54zk7S9yiFoiYz /hXs2I2B9kL2DU7ZEHTO9N0bRr3xs04JUxI+XxeE7Sa+kVbi28b+ YmcTqIwOcrlDJq5HpjfTiynJBeFgv3Se8zFgLl92r/FOeMOkgM/xB+ZEW6ohqnIY/ W2ljNhBcbOCVXH21K2+1E/igqTPvSMvHGeLaTBXyUlLFRKuXSEb9hmAFQKm1OSYwp0G/ YlPmfUsuUxFFdIkAIH9KFiu6qWpyIEk1saF48ikEbqDMQOz7i3GlxQq+nZehg8/ woxuic8ZWvYATcM8B6P0f7/2N/2n1c9Uh6p+NbiSYOJ/gWw1rINM2cPB09hzAs4tjSdsmYiD1woFXa/ OR/sB/WhJewf4HRtXdUCaSxkI5Toq93bDiaW08ORrgUxQV4qK+ jY2ieiIwMrHmsgbC6XGrdNon5JAHWKdgWJa4iDDvPD+ dL3DNR0gveuUAKn3Fi4aXBMpGEekDHqSyitZE7X+ovZog0un263DH9sZa5muwinW/t/JrHQm9u33Lem5 /gDRmlYN28T3st6Gk8SjNCKUAAH+2TTIFoWUCAVu0vYcsZP03O1Tf9g/AATo+Ov653ddsqESUf+/ ksjXgCyjcLq91HhIkuxEUyqEVdw5fA2BfhV7vOsesaPtSZHxAmhw9mfSEsSkJJsllwfabSyYni1svZ3e La4Zh1Ph7Gl90asGQVW0t5kqsRFSkiV2DZGXwAhA +e7ZllgK5iB64GL74eoY0UG83xXtgzcd3JAWo1jvse+II/ 6UTLG8wYfc5P3pjXvrE20SZJcPVbPBOMYpR3VFTdYAPAYjSVz/AIJp+ ApfzEQtQSyW03NSVLCHeaKskHtReEbxCGpmCIo/b+ d3WyWRyMJEaHgQEE7dpboZuTKrcQDB9WAoPbXeEWxZPkQ7veGW6rqU0oWMpxAZG+ EafF2vzyvBoMiMzLHPhHvP1GzRQdHBVbwfsnoj887DMzJPB4F07H8hsuBqaPxgo2qa3Ka/iGH/ RWWd8qaOf6eth0zjLiFqchS2EpJi7PoZrQdMTed882uP/wAO6/ H4Vs7u2UkT6AIql4BYKKwElH9lZSUsv6JQUQYHCuh1bJ+y/ tSwt9KfWZolyRGwxpiEWv3olHkcBuf3PquzTZiSettq1hjBMBxX7YYc1WpvvkXMkiFyniHo0PzlrlnLu f4DKEkO3mukDd2K ++q387t3/S8UHZLXT448N0FBjgiSkF9MtpqkSn3UFRtaZEM6gKJdDikJE/ mZCo2grWMQXaDyUstTJjHKdSIuN/wTd8Q/W7rmF50eiGSG6CqqmH7J2UIsZSjcZ15I+9r7y2yL/ q5kUS8BVEPat9otQLYdttTX5lSpAAewOTJRwysET8thvZ6V7Asktbc1hNwrKNAG4045laQ3ss7UMsOsV w +IjOhL0PhpQLHSeZDdq0+iX4/5+Wpm+Svnxr9ybLHyl+9vuts+p/IdH/ vJlr0YWqWlbLPJjo8OUUYWAgYSRCyf3TOVqYpZIpAHCMG8Zr6blzNMSpDv+ UjE3mtmR5hWBvgSSWgXKCQEbJqoQbzMIHbSNH2L/ EbzrOEaCy7mzLAJoWmHR9fAxtGcKmvfkPxbfecSeWLWrKvOkpnJoll/UBHT9kb9/ lfZRSZLMXJZruEHRH6pE9luxMT0UgLOA4FzHcBRl70S99LzgNlaz0+T6Pz17m2hG+ut/ f4xwivXZ2hZ3edYwSbamB6WpYKuKD8JofXkGFzyhKmdMWY5adBZg4KGWyOYBLMEK5fnAT6m9NcER7nlg KHlxgz7cSkIkWYpWECfpFZzEHD7gsEspcemFbTcOCCXpO2Xlz + GjZmv5hUWh0EG0OAw8KzfZK4v5CLpU69BZzrWmnLA5arUKcfvUs0dmB7kU7UAbdV81jLJZZwLzquOzla YT83jPUsRJGQEeU86tmzq8V8BPbjJowKsR563os2 +S9++nq0Q0usRjxovbyc6KMRa6KLQdz68IGeEn2m/DdT0SB9LqO/UgvMhQBUlDK0zStaEBprqey/S/ rLOyHz6vDZBqCixAcKVMABhFxB0G5ZVfHSezJN9MoPuf8fn1hVi3RXhM00VsKaoAE1Wk6LVerQUml7Uf 7tH +lNyK8WnrP5zxSSYpQ32wETgfrewrkMnCSKJ7NkKvPUdWRF+Vx4tr/ nNtPW26gGBie0Mf7XPHSOD5lu0tRZTdZaFCWlapZm0xD4AfyB8wEoJs/ ZMWs9qWwjpuCXshyEq2BEptnhQ7ZxOo+61+6/meEw/ NPeVnHeWalwQ5Oz0MkkqQ1sQqqT5Dc0ds0dAOFP/ YbuyaXQDzfRIpsu630g8tpv3qzGyAQ00foVcjloz8pPasWvhXsT2nyl1SO4A3qRTRmuEKRSCO1D0Wr35 q6f4bh5saT5Kbyya0rnoCJzvVGJJGUUGEWSM49m5R8vuEDQC2DbyfEhfNDFrKJ2Hwxp6U /85Maq50OBuN5mPqxrVleTwZntQprNcKayD3yurg+ 7byT9Din7Qy72s2zu2Cf9np6fQkfNAdIygdO2jfrMTSecfd0ZXhbrDpz2lxoLM5BHmZvG4Km4vnpjFtv djVz5iQ0C8dKlNBk9a99DuIoZ0uxAoPceLohuiXy26a6kz +Ssdpq+gmUUPzdxNEQIFFUHUnT4LvaOgbld31cQ2kPBa4SLQb1X0jdIAySviHfg8v6f0Bmz+ lf2FH2jkoVreGMOCg+EORmcKmH1OqpHPsAt7wrAJ8UKFNSpYd7COxrrHbc03Ej0mPmAN/FX5G2l+ 67NpSh1boryHVqj+aRz5pgcNSijByW9CyORdBFWiWOVCuQKDPaLZoEVp7aDVwtPr4W0nWKjHuJ/ deyDsXw9yATerurH6MeU16fXJi9wEzSPe0tUnctQyrIk4Z1PlFheTijGMomtGFzzJ8EHt7DQOsTcutAh 3K5BqaKAl9qkxZs1q9Jw7WKHdWpTjiI1sPF1ygT3ceevhAvTZ3gUaIULUGeF1OPhQu3yPYC4hplDbj8r 7Cyq0LxaSdM5Wres4qfUYxioV Mna/ W34fhgJIGNzUFmhSKfgZ8URlO08cE3vhM1cpfIzrnd7uJGkQGdpWFSS8qiJA7BO1MajALBk2bJt5UtTJ 8cvdJzdLEQUgkgb8qESa89pxAkr0eisvhRORn9pqqzwlHJujTRWysMEwpWYczBNYBvJsSHs5WCEKYdKm lCzFNbZfa5KSrzuejsExOR +AJ9RRa4KTeZAl+ WBnvfu1M6O2F1btiv0aLkO1v9Y7gna9Cy79JS7fzrnc0i0C18t0f0cu9hRbD6U02oRSqoBC96XZT0+ LPmVwryAjSzBEO6U1qyavzdJdQdjiFn5A7WrJRpKCT7lUILkk7EVD6j5uVTnsVMIYdESivblGeW/ b80Iso8L3pGUguoJTEmY+ ZbK58JkrTOobTXzhuiur4EWZXHWLNp72QXs3YPxU9I9tK9kyZChk9gTM6TdObNQOnscjwXIQRClCTqfH 0ou60s /n3Vt9e/7WkwnIruN3tgJ9kAPc9f1ru4tO73S+ BZU67UrJFnB8krJag68odRNeLZtRPJLUooSCPK1WOPcwrw1Xt9mhIhkhB7ghtb0SBEGXRs1oFqRPcsCJ 9rztd9RI5IbD4wbpSQ50mIE7ZbxOTr5DytZLUyjuSuAjrOhoNqyMXAWPVJgXhsJtdf5CShsoGh /gZHybFroeOVGyOwyWzqLaxvtImNVW1cUjbZk3lIwPVNAVrWiSkFvYwJDrHGfqHNbK+W6v5d/ PiNvMz4dchrLc390my547uwJqQpLjXr16kj7gHJoWqnz3LbuhaBpiwzYOvWiVIZH1vpIrShhqxHJJctO LEYdgGaodHBTJet6ppJKVOBZBFEoaPJfKkmKYgaVApPpo6ESRuYvD84NBnMPBuwkCK7mK8lA3ob1 +oyKmtGDigEJYCajuqoBhCfjGjCnP7jwEmAUDpFXnLDEop6KwLq73ESTbYQqxY2BQ2Yl/ U5vPyv6k5udy3CZ9xHZx8JqvSUSm2tbtO48/ vacJYw0CUMVZqnkKTLCvAdHsWE5KqnvpiJJlLDPmZVRMMUzFxr5nuDXyN3dQgwUbAaCfbOSVfh6GvHFJ IcYfp6aTpDXZJxzUc3SzF +ZFr/pvUYi6InJ42SA9uWeHVnyUe6XZh+ 3gdwYl8OCZXSrvj45D6iKjPlidTzzRhMS8sNfzTXObDhzqJlWoOBYrJbNf7bLzs1z+mt+xt475O6DLp+ ZrGEYvmi+ yq68zah1c3i2hhHzl0lss3hwDIjzgt1FjFQtBHIbBOT70Fl7CHsXzqzFiMoGFj6LEeQl9Z0PAxq1gW/ y2WOuTtX9hobvzkU5pnb4GWEtvPxE9rrpAybyRKl48plxbi1xgQevMMgwdCAHeTB9cLCvvru6fBXEOHf 6qiQn /ZBf7I8PViOZl6dmW99WQwA6kAX+df3b+Q0EdLKIPkGG81Cxhg1w1T7CEa/ B6ppBpqdBagqIeX064fm57H29ZEBbtMmyj2JqApEkVYytNYyZBiKYX1JgUdzJHILiKEIGBA+ kzsNV6DfRJEcGLCYDQTLnnKMSRGjMEDBQPYxUHENh5/ xE9oX1m1qjWPW6kJIfOwlFyRM22U27l6UsBCr1U1zSJyBmVATZwscnccL9D5gmDRE1n6q9aUfz3JfD4n sQYtr5KMdKuKvHWwyM4l2J0mYeoE8n4X3pWQzFgveufaMbz8et4nx7zb56 /Jeb4iS6sA6bX2Yndj8BcKHu7HIc0zlAXMQOKu0jHNrTeJlrvc/ Ro30mvj98NaEHABOOOBBTDn4NRk3yCBB7ya9bPRHsHz6XjsgA6mGjvE4vZAtBS5jAl7Y16A8mkBeEPFL pBnQbmrTp5jLCpdp3X99W0YlN1vRSBMlF +sSqiiFADfDAO9oedBxJ8m5xQpf+Uvwzhz+0UGtzh1x4LKzcv6t8ki1yIE6dIPgs34leBs0AB+ tTsovJaJbhJZCEjCo+FkZjxy/ pSLyAT6an3iyq8BWi8Kgnl2laH04UEsHOYrYOGePFzkh9M2feJKpOSQy2au/ KaVLAFRC6xIA4B9MAiLGiot3U/Fh8CvK8bLwLwAVqDkhhm6uEFLt+ FDDqXwWkiTgiwgv0PCT7li7WEC6YSsafyJaU/Jerrod/ h64qFhWfZ1qsHio9U4DlPUZ3w9PyouohnAjyhn9cZleAUrc65BsbJC9Zmx2rfTvGSExnkR/ GNnFTtlw1RSHyoN1Q1VQwpN3Et9VfRYBmfb2G7ff1Pe3bQRZ4hJ5LMjOeBjF/ YYNxZAlu5jieUgoVI5PMAOaIPRs0iunOdPPsYqcWmYZbuQknHyV5Vtmz7eai6zd+ 8x1ml4tT9s6i61j6Od18Rg2dL3kuyde9TbwkiGctRSYLxBHQ2rn6YkTgXHqUAeTJcIixzdemYvWtV2vz vLC /uJLW+k9hUmoTIBgK5aC3YuVLXCwbZFE1E/ Kdl1mRbxnlhXsKGZiZDXZXYjOupu4MRDbb6FUtTXHJdXlf8xYMXsZVB8mtlZTzdsvUS60bW4h+ WCGGOXoUST6ZWPIdYMPRHhoS0chgs0utx7PdPd8WcUuwnFYQd53yJ6jl9+ f0umIkIdSorsl4epGaKqKMKnCLtLQl9DvbuPZJDyctwyzTAm5L1HhrJ/W0vHab3npPfzqV8E4ZSI+ 6CZQvKqPh7P2bBIgTY2EIrU2FOO/ LQRomKLAjVdyZOIxkE2MEosZ2eGs68SYJTBkxEYzpKIAPPhVRtaajWX6KvxUEtcEQU2LSrC1sa9gM8+j /XDDs2vg98cn0G733kS+m34Euo+ H6huh0fpXBSD0KT5wPEGTuFiO5rZi4IC2MEIqSwYMZA9VJuPVV6xCpZk9aqSuFYbiO8nwifzB5lNZcRr Pvd5cGFHlaJN7p8p2pbRGlBbmO8tYQbaoGM8pygBiMSG7eujxgUeScunzO8AywsfCOUQBUGYURaTqOZy A85jptLJOVFFRO4P8oKBPy73AssunvOirIg2veJ17ksnj3 /rQxxBUYSTjlunXX22r4432/A7f6SXntM67g+ lV5hkEUBG61EBxbp1rWD4VHfHAkIz1IFVq3Rm3qo9YycLuWkcxXpDghlgdNO6avL18eejQMpdXerzBz3 RMCFUfc5JkKGtQGPK7tIXiZ3mtXHLwoDnHpiJcR356aouSekVNFJZXJ7A /5YlZPvF1o3nMwgl3Hu1pLeSSHGBzkGSK7uWtfWVeH2Ma+ 7RFm8mMtnCdL3T4fJfg7UXo6sv7Bp460CbtnE8vm2TW1/InlqWBIknGttkZqD8Hnrp54kysjB+ JMVs7Yg2sa6byMAe3UXqYcEfF4aPz7a3RWVH9SA2wZuyJNoKcHWn27Exlz1L3MgxS0rg9aq9qYJe9B0j uosRcTzAefI +4E72wW50wPIVkfEzJSG0sq1T9VlXBr+eTT9YD6ymw3Q/ lI0u3hH5kV5gisvjHEW9v7P6OFssGlvfXknXJ/Rv8qKBeN4HTB9JlVA5DWphH6/ kgfzdARKeCOcHQntrF47dLY62XpBiKFLJwSwCcZdf0Sp5f7Ul89IaGX10eMo7PziiFl1GJSkkIgOAxaQ SbCa9HaY +j2yvpk3k319phWk+e8cx4vD9ip+lxr8rZwpL7WHv2vElYxtJx8MroGdqt2X6SJ8iKy+ b9opz1GoG9p25zCcrhG7xUjTq2ri8nvAg/ XnKijrIIMsCfWOFR5Lf3X0kcH83gHJkMe7qNgJYoF9ef95mgDDq3RCvs0OVbaP1dw4FWFv3gbUcJNxZj tCflEBe5NwEY31vS8zzoZbe /wntOQOV9RJuyGQBXu9vEl9FJAeAwoqICmZY8vRZPTIc4gNkRCkOFdGHZVzzxrk2jILf7kxU+muq/ FPDAF2VNdsyEUfAnNsY2cqTjFeBKbxpf/jwK947dn7qOWm0OF8lgU6wiENUNg5p/ aKp1wShertMlqrC2HGihTsRnrDCMfA7baJmLQZetOzHgYo6FgJRzAgZgXfeKVjWOXTjhWyxURMfwJcIl UnpDbJLekGuinH0HXZrgOCnaibWiLYgGpFJqDq6TBGahi5oLbf +c6JijfeBl1byVBJPKuC0xohs7KAJSnytswbBNXyjkwOreVGl1QqKcZeU0I49h5LBJmvukz/ v1i6e83Q95/KTfTu3fG4sZtbURbqpd0UxwxliLO758JXTp9PgC88bD7uITiZ9m/ YIB9bvDrQ9N9kN2souGNZuKTuTBgEVyolY6ujMZWNgKGLUVt4SNRDHTABqVwJm8xvfoxpBjXbx2Ax2FZ 6hpc6fyinKvtBYXiIwMrbcfkIuihtlgfJbb1zJ1YXPBGmMNT976o1UqezZ5zqGxf48PlkwzTIsv2EwaH kCZroqOcyYpdNhOBUAiOaIr1Nc05Aw3q19kjZT +h7s/baJ6dDUuyhbLzdGebUdnb9s3F1OfjrdYtqcV00G3ax1tAS2K/ 00KWfpGLBxrvVL4i93podcwhm1p+jc1m459XrR3Tr3PHZo1DqnoPlmKMvBDwDNp+ BTpRLRtjGZkX3SRcPT04x67gixHU1CEampNguBemEV+ K0XPyomWsUlXiIisJl50gLUa11G34qG2eYGb3hsFjlW7PZnTvO9KChy8PCYPYnOaLv1BtL97N+ M6EkNVajfEoUcFl+ YGro0xSgIbMLoZjmU9wwws6bGEGNLiDhfgVH2bOa14Xe9zDKLXo212ph9n1UHwsu4tbv1UfUL9PwW4+ 7uv8a7X86HBsEJ9x16Jb+ZUTBJUog3UtZGrDca8pT5KJJ2p5grBIn+J3tZ7/AE+ 7ZwgT3pd9aq4Fe4itDrs4mt8YBWyCwBGDr5oxXtPxGykmm+Xyvkz6o9h5S7q3RytmnMSJavdH5pzaYD/ nU7hb3AV1Ff3hGCBUrGIYMHmmvDB0wX/NyvCLzH9vbF+J6Abg1hLthJRGNnWnw33La5mvQtxff+ ZFMvySQui/I6aZ5BgdCDCi7S53je7kkdNYrB1QS0yga1uW1cpAK4gnm2bvBrigfinjaHom/ NYpZkjKXaOoBRNDFQYtfFiq5bj11tXiVc0G54zU3GSBWbcoDoLWg8r3Pyq4MmYc6Z+ m4mv3WvpeTjNCjNdpOH2+nkzKtMrGyFg5vzLK7klqibwhuQaD73UGG0LkSrm1nG8BRu2wiH9Uy+ q8Cz0lt8E+BowkqdQvA5Vbk6Pf+IoA65MW3shdLc4jOnFAkLghvycJq8r/ Gxn2qxPsxNrp8c41d32C13hJY6UGLnHXomE9c9wJ7LuLtcIJ3m2tr7a1I/ WC69uEHyEnvrEumy5yJz8Pkfo6X8x6M9fy60UvDSO1fxFWp4kyqm6v0c4C0vlBb+UgR4FdXrMlgW/ AWpHxzDpEehTWt/G72aF9T/UX2P3zisDB4Jr/JS66g7VpC0z8PGNqV59tZsZEhaq4tF/ mov0vh1twod9W39mr+l4nhsK3RkxHT4c+ 4cptsgsKSSkdXLNsflz2bwMniS1BfCsKUqZbKbQb8ryty697xE3v0cL9zNWJeOvUgSy4oGHkeIXTsbMH WWY4npzhcJeqblaSy34 /P0x0racoFj5XM+e43lPYlJGtbYtbr/gmWYYconYPB116nvq9NJEPJtwO1zxz4/bNvxoapzo74W1qJ/ hXw1q0/iTwoN5bZc/s0OkRDemaE1mPiEKal32szZQ0rJdGpOQ83WZ0OkBBMkFwknX/47zcf6mYwnxrch ++2riVlkp5t/hRd7bnbkfh613S5UB7qfesn14qe/8AZl/ mh3pcuBqVn4vT1UUMUpcgfocKKjs0Maai1blt2L8cdmOlISo21xpOWTSzMmsGZjE1C0MViKpfbVmyjLM PC /i97/wt2arzAGq3Zwpl35c2XtwaNkj1N/BHpWt+EyWwWn8f/ U0vYxg4hAYIpD1ex7b2nbyWQz5ukw926D9mOmfSxeTUDOR5yTjwPjZqduJGLo/ Edbw8qtsWsm34EtF1YUvixF5iyODjCg5CHew/XNDz2q7l88/ KkfCoElnVxGf9ycU69DyXvqWxCJGc9gnf6pR70AMmjUaJycjz3G1k+J9Sv7B/ UINvpP5V6Q1JAcaIqHrBe+ adKe3dtN1uMo8Ad1mgh9rliavob7oMA6bSYTxJf7Bfbqhtiaor2dVvW2Y8SkBjEkl7q12Idrt8MgUxqk yMUaxZac4x2S7yZ +pLL4IRLj9378tMnF50tHDEkhtoL1R8Y75s+C3rp0AcHodwbAmqAhVLfHd0q/gjlbbymDbm4y9dfX/ 6KpSiWCPeLErKjbEBRFHK8zzS8cNd8KgG4v6dOBeHwrwYAgsFL0YNQr5k97hLGkaHMt6FKvLu4EQK97o bOq /aU0+hrZJXGeNrtnUZswAMGC5fB0JLWAbmXR+SsRNbvf2c+ GHj7q5r3W72f7Xoi5PS3b45XmvxQV8a1d4gK3y4wQqBr9c9KrzkPKFltli22iURY142AYPfjgbtmpyIe v0fyVkBn6CSL4hwsV /l9wBcMOVUAReEQzBBoqN/hXXR8J9GeK7ew6QJzXtygwg5LyMghr58k1VM28gDd1pP9D1p3I9/c/ UZ7hLxe8t5IrlP6g7J5LPE6OZHdcn1W+G/ zRmdi1jdkDqbBW9fxx9oHMfrgiYJjJpqego5u6JMwiurcel6LFVBd1dHAKs9zOiuKIA9Mj+ SlWblBz55sAT4i7h0wH2iI+jgHy88rP4uVGha05VtukRTBW9dEejg4u+ Mn5eoRZ9yPhrE1mpbcouKu5VhDA1kUu6wmaj5HcqYiAahwNY/u7aMz/ 6bqmmDLI3u0bWBYS7YkWV02ncdwQfImfSmx4RJVIhLPYqdjDMbT5n78/HAhRos1iD+rBLx27Qcta2+ z2zbJPAGooXHJ0wksuVqzSe+VpHqrujKehAIsVmi2wvyTuZbhZE7fkLC39I/sNvaDUJrnMVtY+ p7vfsFipUe8evbvRow9PIwYKX59HiSCxWcpMlaiaPq6fXngCVDlRsRtFFeyjPOk2I40I5t8rImLBMZry puOZvA6WOgevmeuvm4NXVHYREIc6SlO442a41l +Ln2Dlst39bj6yu72uvWuzu68Fd8jVwq/wCK9fF/ KSsBDy1Bie2ebVr1N7a4ydO45mm9UtainYia2iC2o3SjECUkB5x/ pmv8W2LrK5Fq8Xar7wMsoae7YSkXBtFAXbvFwm8if9IKFWLvHLfDYJNRAl60jXw8pfTNCN7N4s5yuB8a 0Qgh8AeBHE06jhY9IWFe1oM9Qtl0 +N8zaqeD2/ 6L00U7vJ7PeAwmOdJI0xuXjyISz2WdkLD0uJ0l7kxaC3mrdALXWcz01GVttoH21a3TnhktisoGX8Q2qm s87U4jQIKzR2LqVzRxD +pfcB2ac8sOEGufmpLP51Lk6GXOyvbk9g+3+d+e1lFPzh93rbhQpFN8g9U4p72/1UOi/ TIBCYgcBpdf8kf+VjGa3RNGFi8c7Sp37P1wcY4zyV4+3ttS+ qr1RforwKnG0p0uVRdoLHuAE56lIB1Cw8S6z8UyF1PlyjT3iNdw50w0NhzcgqU9QTfMNSM2Z+ GprlUkvoZNUt4/x4bfn4u/ LWdc7JDhMECqyazj4duJBGy0LWItQrRU2xvpzErfAmcxotw9Xuo8iSeckTPXZVpXunEPEq8VkmgqlotO ImVIqqfGey +Dxpg83Z50UXKXXSrQF79p0nCR0+2GdqWt61IRIg7Ueaybw4r7aY6+YL2ysxFXzyuadRemO+ IlnbfUjui2Vqv40F2jcwOoaafo7+ b4xyH9TiFqTrun2w9RyNQZtSEKWGmFFbMEN9eb9ab1m5CklviT3ChB5ExG7j0MlKzv+ Ovho5kT2o7OGa0HKHeiSLpTgkmPmoyGeXsspYIpIwDRoOfxsFEkwSH7N0ao/mKxWFE7rfPw/wAN+K/ hrq00z/UrlhrvopCb3ArcIH02Hvw1nj6HmnJ9+n39jizCJEZhgUoh5WBYLFRZZqZU0LTdIWGfdSTL+ QyvGeE8w6K59m244ToMRSMj9hVtTAQgG/qgTd8ypqAbe47Qipvy3fZ2LX0MSDcfgdjnOA+zea7oHq+ Nj3RQzCn5Z2H6oeO4ziKxKYJjO3xMMI3k6t5JxcJZ1AIrabrVCObzwPsrPRZIKObbvL/ SreLidruRU6gNIs1FwTxFeHb5o+ 1dekn2K0XaLgSFmd7XrSNndrZ6enUqsaoW9lFXzGhluPUIpZYV6CHf9m8LQul6l6OtWdFhcM1Y50B8D0 RNC +L2t/YM4bCHx1yU32i6J1tR7y1d/sT145a/LZeaVf305yh4m1H3tKd9q14SD1nsrGeYTnMO49C+ HAtppKvbjf9G2UQu76sykc52g81IidNI57lBv8zphSMKyzSXUF0+ SIG8hK9hKYhp3ZdHPmdLJxJNdHbJZmN4djz98JiYQskx6oHwphf3ki5HxTQBv+K00+2tkm+ 8PwkAG9gSnVgaJ8DMIK7cyHiFUQzQoonfFbx/AMM+ DyS4jVB2MlnguGZisLZxJ2wKk4FVovO9wfQaWlpo9Kgtx345yVq3jMGgipdTAYuaEaD4ckagsNBcGDHM D3n6Bvawhme2SL8VgoVbFtgb8sDE1r +0ol0xPrnV9LRBmQbK3m1Eavwj7/4DNWxqLzMNElsYTEEbww65J5obj1I+Hsb+HvC2q+ SpFsjfbL9pMjoOiAspFsYTYNx0evkF3S8zVJF0w2WQ8ve82qUWUSiRJAXl1Lh858W8DDhpERz0POUUzK CtSlVw7i8x1s7NAQlzVI9dXPHPUSJ8F /X5j4yXN7kamsvab8wP/NX4D/yb5Mfbiq7d9+oahd5zex83408Nvv0u09W9Un8si7o0LVB8Bwe3hMgE3 +1R2F/Ui2stVnwEkp67eQKXdY4N1LzB/hHYsXB2pUl2cmqk4yAEkCMpfK77DXIbPhUuSnzuobULxE5+ bNzN178MDhF30Ep4ukI/aqe/sXLf5Bs6q1lmUJTeZb1tys39f+fcqn3is6Vl+ LPf7Kc6CUCSwcpTIhvA5JhTkryYofiERKLSiSVzrUBmMytxlHpvK+H8Q0/Bwxrp2M2iFa7kaQY/ llRhCbxNtUCKstWyVmXLTxsU2pxn+O8iiAfxQZRiYVf75Pv0Sb+GbRbO+36NoujQwL/ ODumA2z7qJtas0UgiPMWG1nACzXQPHMMWWdgMlqnUnyO40+RxAnOwmCk9z5ZIth/ 5tryin4jl2H789xeyyvlkKwmp/wDbNzdJdTzWzROLk2/ny3tq8+n01PL48L6n+I/ w7bh30E9GjjE6A7NIFkNqe7l7Db4UPxYuak9fuH7fFzlEcQJqoiCk/ HQdFTFzQmrQAeRpTH7Qa2C6p8D3k9MeT1YJsQWhCmW+ 29PEd2bzazq6Xvb2vWhpbunnClbcn7RSQMKF5emNJqS1zoOC8qnHXBBxxkIegNY2f4CBogT/ KBc3U1hMvmvfiRdujUtw5jaRGr0EhaoxtFeYUFpceFt0Ja7X3ItUa1ceVq9XLYbtCKVsWkikZgB9Vsxm ba /sKtZh9Peq233eR3MxogcUDTNbw6FnLHhnbsWie9Anp1ga+80PpiHA9mbZKmiWFj7e+EHGub0tm/DPhs +K4nXxwwWqjT5RfdQyqo/9NTsH7gjJIUQeoPnQUkml6vNYj1hkIL/sormMxWNpA2+ RM3QPMMx6Ln882KuI7pftMf9Bq6vCfWdeVfFg5AwW1y0W+ kQkyCj0xV8rJ6N3na7TEndEzyP0vYuIbYf6nm9nPtqTyCyWuHzayuodkdHj6oi53bm5uaYr7oTBrjAHI 71sKxMcN6Gf3sOzfr2BpbKPKUPX5KJHje7zY /A+w8ZW+jrUBM5ksLGbQ9r36N6SvfJiUI8EwMMTUm5TD7etxh0qpFGz6sA9uS6v/nIHlycUjki1i/ Il0lQiuXYfqwwm6W+ DR4Sru9J3qPv6hFBWq8Br9yktxTRrIeBHtiYZJj2euvE8OEG5idiZiy4E3c2XxrYT7L4kKMJb8XKZx/ 8wr3gE1lOeMlnJN8Qnl0gudkm0nxXF2vLR9pPd0Tchbbzn4fgUs9XyKFQwfbg6eiXwSQ1swxMDViwZzW rseESehTh8LhCbhl +nH1ysCdtitv4a6ht5UG/ XHlO3cgK1rxwcwc54JOEp4zcMf0tvN4xxs3zzV9jqimsj2RjADyNmaJwE8UUgQjVzmTrp2MiZPOkQzAq fuipk3mIAzgnuVuKmoJMxn7nU3KmB1FuJEMbowRabE7q6mUijKF0APGNqortWgp9e09iBH3pyIwIx7c4 BvV1KXXdDBbbH64inlLFBrymdIE9nqWsnwSDUGssqLc /sMaRNzuiebAh0Cthr6nPPXdsnmNcJ3h81rhtaAT3wlY/Vtj3xDa8QeKtQFXcvNbhPM3alo/ kzscnMx3EtC4X996A2kkEKBwKTr+ uxCZMiQiq2e0ywpw06G9ldfH3UnRnxkL0iWRaDK131fcMgOTuZQGJ33Iqc6vMuyUmwxYVdB0MK3svfnY gv2s3vZxXZl2Iqww7CodKHshIiKp64jPu7AsGhf0yzMZhmqNcEkKbLKebo2JemwfK1tZfikm2qec1zzP PfKkB8h4FKM14 /Xw/h5S2p64Sd2vKLWybj3r1h6pYgefqwCU4b3Qu2f5vhbUcaiX/Ox1azWS/M9vh4cOUvCGTRiH+ GFzX51NZfPw6eXiiX1Dys0So7lZZiByhKz1wZpVjsG0d6firpJLRwFHRzvz0Czeoc+ Ftv8ivke3q5IKA6exzjptv5H2oKv1V+xierPh2mX4oargbMDGNtqcR9wU3mlJbKC6iM6kNN+ EsVX1v9yMjNyvs3x0JK+I8kPS6sftyPI6VKHoFc4bck2pbsYGb67MC1jFq0sMH1qv0Gsh8u4hd9+ jokso3IjHd0u12019as+ne/bFUrzQyqfFUOPsxWGONA5d6+Ptdjrf9f9Zo36Y8QxoY9HrhYq8fXd+ N31kMtQ48eQCouAJ4IZClsAKpnTnZSEeYBxoIywdpxqEXpFWkeby3JFbk2Q1p/Au6+Kmi+ KaJ75L9iEvRVC3P4a1GsyM7Dhsn9AQ8YRhGUJnbBkOZm3rw7jP2F4KtlYrm+eKRVRea+AHyZt4OpDs7B +LKJivErwzHDmASxwiqXhS3mbztcX7jei2kF/ y319iM7lqKscZz7bpQup4B8hFZNcbtZzwhBwJMtA4Ci15+ Zc2cIW20tuq2YTwpjMvecyi5X8sSmTHaOyj22/oJAfNe4YuvYUpr7G8I4nTf7g2ul8X4rsqGEW+ 4nMVXB0eVvEQJIoHiI0geABlMBZowS31nuaxgdG39TN9Mb8sG32wkHCpLl8cm4vi46Fb7Fla+ FZpLrSNN0+w7vKZTQZpx5WXQUWG6/0kNVFjSeGgW5VSWAl3Y+UIqo4DaWBM7t0cxvOWirT+ MjYgw3jAdRDt1DLkDifrgAsHbvTOhLAIe0NV3S0ISBR+UeKfC+ uqFu0Bysd2L5asH1WMbuu5flbdgL2KZLOO4cos0QYjEydO7JghxjlnEeVutTDacXuxBnMxE+ Ynk32woH81egFP/ Qa4xA3g37c4hr0lox2uFgXSmeDrOW4sDUjt2hFy1gfyAD9dtv1U2lPpLf6BoodeshsshT9uaVQY5yKK9 3rZp3Iu2SBhcrgZaTb /gx2cuwVMgJPgo1pS23EGGdt0s+ GDKoTdkILFnZlCetcqrXgvzv87lJeXtY36Td10vjZ3uV6UljvNh28LSQpN3Osw9CZ7Y1V32O61k8mz9k W1AjkmqvPh /+2yEbBMsBXFEcKv26JLEtCe+7NoGHu8W9wsea9V8Xo5m2td4Vu0/GCtuWKvYTnERZNWn8C/0w6ZZi+ kpD4caSQTxTVAaBQBgpGYb3bc/4o/Ni24rHGmskxZnemE+ un0sFvw9T4yrAurV4ipWS9uZb8f4708Q4cG3Zh61LLdA2KEmZiR3pF6pxpJ1+ KHsK9574g77ssjgmJ8OnpblR0opyBS9kLw0P+kCAlzFLMbm8wmG0bxdfM+nax+l/hjxP4c+G+os/ n1BzP6QAii8hU7bHNBpRyiZaOL1X6qD0diBr2/ rVKkLQFNMPPJmUH7bs9E2cTZ4teni3Tqy9LlL67vssrVyl26EC8nEYOl9SL1Z4UnQz+0zDaypqWk+ Jva4jq8N0b7fMvssrydgOO/aE6LoNnY/xL8I+I/D+ mDqd7YO60H3Jgdga2JLw4CiSRoHjjjQpN80KyKEW4b0wmIN+3R3flzcjS9GUN4jE7i+F774q+ Fq534S2h55hr0mMljIuyIojCIY85655p7ptG2ddz5n9jh2KPOxvdO7kQVMhXpnad9UQgDQub/ ty2wDdPTOjmXXzll5q41R2RgsLAFda9H7xC1xBfQhMkljEGpTSEtaJH8DJF+ idl7CWfxQNG88cDW3kaq0TvgY12tYJ6tcz+pzOvC0K+GOuHVfJ0wdBR1zL5BLpt1yeDesJ93V/ IszROAWEfmsapSyhluZUxcUl0P/bY0H4j/UKUKoBrdhdkX9tOmMB36etjglvZ+ iGD67K6m3ZZ0ClA4wtMk7f8Jy9wcLo9YpVyrbZs/ FtSTFVybEqgO3K8rJBx2Y5SLrAwD6jG1XjdkbUjOCjulVPC6ZO6OaV9h5ohoGqns8d9r8kcQJ883F7g/ aS+ O8tpqxjuphv8Clu5wQkA56yOpM6K3M82PNkDiDHhSEvm9cNSdkSa96HPZgpTVDh8viUzJiDl4pi8RWIK NnRr7I6Q2JoLwp /Lda6q+9c2EmiNjrH0z1tlVVh1vVmBusUEt5bfPcr0FrumTWvH8fT2QJDlyH9/wDg/wDsw+TrP7NKdz+ Eth8k2pcw3yWMs0aeQb5LtWf1nClgjgqdnekAIIAPC4tlohytdnAAEMeyb2+lv9Ds1JqoJMcbwpCs+ Y1kGfloJENt+4j9vUvxeaomDk92JwV8GB9YwWSGJvrztB7ZM9p5tmRgOEBy+K64JaXd+XQ6H5Tg/ dGH3h2UAopF5582Ez59GFC2Dcst9fdv0lkRSjgyNvpfRkD3c78vOZifw2oQT87x9/ EQmIeX0VeDnu4r2kDbbCE2mvURa7RCPRVIgYgxlfe3gEdTRVE1LiTzSOUJOFIt7BbFVxWPj0s0epkipx J8zv7l7xvbGgJ3yr6m40GDD5kskJjMk7M7JxbVmjU3IcAwW9h5NLtfmv3j0BwEuvH2t0Y +ORJgOeXC6wu5pQOFxV+S0mlj+cG90GwKNEHloCIHizjRiFBXASY1D+iP+ KshEKKd6d1q2sszjvLNDZ3mUX4+ 1bLe8qxafrF8xEZhyePQ9YSUdrH3PQF8gaNdHEYHBtafoaienulr8hh9+ JDnXsdb7ydXXJwEHSxpaBlEdKVn4eL57iJPWgUxDZAIvrRS56URa/ Sf3aE5ppBHb8wudpy1QXqUujraeTcflsiK4qb08sDn/nQadyLK7Mm071lHV0FY7tB/3/ yS3cCF81vRY4jzX1Q/T+ZHTWumjfyXfbTr3/LgCNWFdZdv3Zxg3Mx7OC5zl90ODzB46X0X1/ Uuew92p4SNCkA75LM/Q1VloK1vusbbCSy6OM7asPxmKBx+9MLDrx89Fa8o4z/t0FyiUY0npOVXd6d+ VEomYMlzYoJFNY5KGF6j9cz3uNVObN4VcbDTVicFOw66BCaRDQuvcGyApjJ/ma3AgOdtGPHxxf+ xOZi8e77xSvLlr4p5606y50YWXw45laj394/Uhf8UTePbW1WMjHw094RCVq/ dVtowUz9XXf6uVmzXMUMI6ADi980z0TytX9wZVPVjaZOr69cCN8LcpTh8DClRO447p4PRxgw0cIrQBqw Te99fL /ysomWVRtrzp3aU+fw2JKCfNKjvqbTpP4tJfro8ubJmF7IIks0It66i8DnuEEjcyqR8a7pPZ+WKaRzzn +jSO53s13jz6B3sbL2/n376+gipU6c34/q/E6t02Ag2qDw9hlsENZ4QbyADVJOMWqNtyXglXf5/nk/ s2QYFRjl7owb0FXZh8T7ZozcmOY+B85XBAWXCIvqfB0lb9/ bCxX1VoUyl110U0d51nATS7ZPNPV9InDz59812GKLFldVFZlPLuwlFYOSCutgU3WSO2osgwRuK271r7d k4Tvs2DPEYZQROYzjX90RHqLM4JeYQGjrbl + oZJin393pkzshV2lUVWi292R6X7hf1mrzd0FfHNnG4JVAIIEZTdOF9m37WPYHYNnnKDQ15ik4cXTGaxg BsLT6TDnhGXOb8SUyTyyrirCbDV4b4tKncJRJObClZe8CJHj07UEHrRgZipGqyouCwSGN +JmjuhXNt9WZxt6b+diveplcb9RwxHZaioKG1a09/ J7acqtDKVK7fTFQSWbkARPAeWLMwz9FlTwLwCeR6Ct+ qj1kgrhGDNBIePCmyQCralya2OvA5G4MAocD4Kfq8+9LeITrcvelHCDUuM90QOW+ 5zhtP97Nhu208v0bneusAihOyQQTBGojBYFEDJSz6L3VpR7lcyPfy6XLjjonOjpnb/Jm59i5vz4/ S7Fkdpo6lEgyts0m4kTxmQl/ krYoYkLPcU9WZbmWZOhBDme1cbNtSiiw3OePJ2GlUlJdFxscqwpZ8tbhoQ4ys20dVH1jqpjgI4IJoVeT BGrJTR3bsGXxUfvltxzIQ9UL5rDtzXcYmaR60ksUIwLwkOAL9SUyzRJQZtVDK2agfw3bUdyNgcqo /q99z2z41n8/q78+ mYXoM7ubzCI29m5FdccU4uIeMzK7CVxPCTH1gGqRZtI2phLw1mh9MYvvEpwswZl7HBjdjD31SkfTyAYK LegBYYGz53rjJ7 + LhKGyhZYVVVJnxrwXoNYs5X5xs21zYn81ytHqNvDdoEQXuWGHEKddlaWLlAe3YNelNVPLsOHkH8Vl3sd rzig7uwAGNZl76qukd854axTqrFQt /QNUGqaJLMHBE2YUZsZ4+rluHWWDiToYKx5zfJhKfPyuF+ Raz3KBQlBtmrwQknx47wGlUwXG2GTgelnolp3x55zXYweO3c1tfX6kJy50mCB4MNmJ+OBJRv68Pn+ 8UqETPJcJBCWqmpjoOwYcvZZO9gXY8emoX+a/ tNmlwkiONAZHbXn8kcmiDThsqptju3Whk2oce3fur1WSNH438g3JI79oIwN90QkzUcSXqgQga7UndLX7 B57UC9aJQhCI4LN5VSOcZUnL6Cja / 1JiwyOthXXkdUvaSCGWFOQprLUEb2NKR4XwF2erjpCldD2Jj48TiUnGMCJbTHFZzWVG18LKw5IpoKMGu quqmezDHlC5wQ44kCrteC2Al2PD6ibBcKnFHyECEt37EADkaNjwDFUy0mgTrYud1Qg /lo9db/ jyc3GxIPGdXt4avg9bwGyj1A3jm4RDRSmZmtHEucahMBtaCB8tHRMMuWHsVmN1VXqRSHjw9Pebkki3pU KNhusHueFpz9zm85bAzvmo9rUTYSBI5khjMblDyabvtotFEmQXXNdTmJouuRUN0KYNf8gcY3PgtOxT // mAXhKAZUZx9xTVwsICLA1jOdmeQl7ld59N7wfu669mptSp9Qtz64icHUK46rn9PGv6e1qVh4RZ8ZdoSo lHy +WAQirPezVNo4ZmD9fXOY+3gVL8NXY7S+M/HOiePPGs+ rzvjKm8j9vbFrLycitfXOfvLx1XnBCdWE5JVkPxv6tswJp0mdHx4inq0akij+0xx+LR6Z2Qc/ OwAwgaAnRWsfU4dZ1svHmB4h2cKyv6JWiaXo4LbqvG81X5GZadCNU99bkwU/Mq30w7DfR+ zyBWmjcfjzvtuefX77NxeC8o40RaSjG2MCfAT2eLDlMkOaikLXItXRU6tWzjz8TlxuqZY3152w7bzuVI fI5kjUrjYrXy2 /ctZoj5c5GudK3cKe15b8SyQ0+ HP1yZ68mb2FELSWbAkLShNCSGaCiECTfK8PHwVGThdtEOnSq7oWA2uyxblLxEzhnBRjqrH3rIEaq1CjG KiNEtxQghqUV0x8fYw73PmHbiqCppgzT +4Id5Genn7VQBZt4FNPelsYxJGQBvFn3ERf+ wF5UWVGiGvlKr4qwFg6GZcVIkOiex0x3jIzZVzwlpUFSipVMUPUJPStT7wU0QYeAxmW5gKe4x0CBCwwa tGyW +aev1cgAsxd6Uff/ ufbzAqsm531v0jEEewkHb884M6YmbwuhBZOC6qA4ZuYy4nCx6jlwo2vZZ6FXW4hSLdZwyThtkTbUjp5j b0RhjWg9WpzfUvY8dsSXAZNB7Dbi /kS1XiQ0AnUI21R2JfEkAQ4z2/jBUC9WZFo/ Xzd77TsWf8vsE5ZNSobapq0KcOW7SvLV4RPPgaztCiDlcCRKBZGGxK40V4q7LIBYbHzANC41IxxweE42 d7FIXhpcPI +XntqhVIQrBi6BkkqfqXUH59MixjHdtV42JJYKeMP3Hefl5mr+ jEqwvcU151F2jImgoTAaUlven5Vv9l6Ph0a0Xcw3vUc3TzHhQQnDeY15FsRJyVhrbE0GC9q65U6MGxFo 7k83Z3OttkfBdQzuamMd1tpPGJFkDlZ5OClrXV1omEhMzlNA4Tecmp1zEWPJEVYXhMP9C2FrK2c7RLoT w0 /U8KPi5fgNTtoSGmtBLRaTZwywpAmmOI1CZGwAjjfv+cPiN4l+ FokBzdy4HyHo33PLy97Ns3xUPw6gmCRtAudO9KUusIeJu9AHaZTYVLkrhvalcUpyH8dfX+Vu19/ wPH75IwRwkryugqPzNsjd32sd6z/QdRPw1eXaMC7U9n0XFymgf6XcyvxU+Ws/ bus03BbkyUfxjeIOECBMXhxOybae6qrxJj+ 77nA4i3IMo694JWxBzhjjyIH9agJa3WEmPiEMczT99j75YZ+E/ TPpKStuN6VatKOqSGyHes6QB6T2krEMHHSzJObkNKLFj7KrE4QRkEu6wq1S3RIReH3i5r0F2ZQ6zdKrj 7iORkIHqU3yhugE7eOXdaayTeOgWrnLLuIc7Pmg8T9zf87P15Tfsf3HopTKayAUxgqMP1 +lAwBF8m+8vpjmDH8ehyfPqooLwHUp2gD5mcrNt2Jsq5tCPY/LGiAps+ tTOBy2K9siPogyu1KgEsQWOZ1FOfMeyipGDn7eRsacjqXGecSOnOGLlKmpY1D/aP+LOteNLDw+ 132rkaD4NjZrGamn+ GqehSRzCPa2sJHEiLKYZCB2ufd7Ik6BL7zrpVung9tdz7oDvBN7w0aE1fvyJlSLoXszR/ R0QgCSTFBt2gFu+IH6tBMEtJYsWQXUzsbrxL9svcmeh2Cpl+iaySOs3pm+uDjHQs8IHSO501ni5Fv0/+ XuF2nXu47eDVrpyb3Kl9nYka07pOWxBKVCfTAvf71BDfeglV1knZ/DDSw+J/Hngvw/ zrJgeyKIth50JzEGq7frgjhRmBcpeJsmHRMQM2zdG0Jkan7/IDxp42+Brionna+9+ sgKyF6u9E0WGoWbcH8K4Cz33BkCmQ2azreWqtqwWWHrxX8QiaD8jy/ OnSLdyn8IwgvlUCRQ5aIIWBudiuTThMMLIrl/bhsPT3BxLrtKCfwRfUQhihSiKNN1hg8f+ bcg3MkpAPn9QnVXeqoJHJgbWZ9/7QpryLyE4ZqdZ7d6ghat0hufIDCKM3H9DnK1Ka6vuVOBasA/ M5ilJcNcfxX5sMscwpTvtsWSWW+ 3d6LWmQTH2kx6fIzStwTgI9xspYHbtzdTJyAPMbQgFbnsOBzikENhIgLqt6AHNDzA9RkTFpFgW0LuuDU IYfJ8SEJhtT +PvfdoVgr4RKY5AYZKkbfbh2HAmqeooRp8OUcuYjxau6eAwDSten7+ r0yicgjZl2Mgryp3wmo9X8wl40v/O5qnb4pR4KIph41/ l9RmylfYlma3Mj5NDCvefSIlnA6HJVfrI6NLFiadZXMGFon152OnPka27OiTuT+ Olsrli0wBoD4bkumMnbDfubVhikKLPt6rv/ G1Cf9Yb6yM7Hr5KvDyjYcyiPS137wQUniopXO9JLhaMHCKRBPPpYGQAOPqzsOc7TXO5fkFM5uJPnuooF n2BzkkA1KOenrb5ijRLpyRrwFvTiChivXoFZz9Bblt +4S0u5SgeDjRsGkfcksiDC6ByEUowNzFmgvLEV/obm7dnjDwRdJYR1E/Dfc8cdf6v2mgd+ npG7erYSu4bnk5ehQJAFIiYI6nP8iqLQaUXguCvQwqfWxweawmXk38Rdoyfgsz35K7NomsdvMN8vrnTd hRW7s9XdurSmIzg6ndZjva5odOP6DYVS5Ms0Lgq2G +g4O7Pq87/03WGGqpn1AuggKMYNUWLc/kXOvQ0G+EJRooEgqR35OD8khQVEUYAeq0F/ RLRmTopBApVebEz6QSzDzFbHViz6Hh3qDYDvvwzvdhL3HWtcZaLLX4xpp8qick8TnqeLVE0igLmmZVPR 2V9Lb /d83oL+e0accGRUYvymODR4MmCo/dgoRbnE8iZwxhWgmdaiWMrU2efZHhTrynIerodb7KRT/e5+ 41TGULcXQo2rUIjeWPdavyodEgPBXjZhiA3WdTrT1XGLyj+O/Cv7Z/hM3KYUVzcW903Utsk/+j+ EVJZjRWGItg4FS/MMjDpgLb4HFctkxqHwwQxsqIsv/h/07yCWutZhy6a0u+ JpIYGLDIRp9Ag3sjiN0YowN/W1uM8jg0mEkSrOToW1qvmkPI4Pmv8PIn76+ N5aBbC3B4q5d0hbI8pZIKxkW94ufNmx7CqB/PNnj4qxcd46JYGOOHP/ NtFKWFjnnwdatDpFCeLONSDyDuTLQsDR0eSeI+ OcxeeHARaOMxLg94MlTGmrQgPMd3NKHu0I9xWQ5LH4Jy1oAhaBwdRBjuoDWxBu7R6YGFHSJrhylfPRax 9A9a1i459jCTDGmVwC3xudidmGWDeS8e8SqMARrYaOfNSxRkEaWtOpTjaJGXgAPCzCii3lP308S5U7Yj IT406LC3k1 /nHLg9tIftc9xzVD8jmr/ wYdHFozHGe4QRryTzALpC1HfSrF69s9prwFBJLPLzJzCBx1kxhpHOZQI5AYvgAUYfq0qesoRHNdH3uNm bdWXasLuIgnkxm0gqC3TpcGsnfptJ63oioRD3h5EE65wvEgQXrndqBx1mQxEMMqZntQFTefhdyXg4W8y nTmM0Ewof3qg1pYxxOaZw6gbbD /KNZpFy785BeEfRcud8Z+Es6OjKO2WOsDGdPcoTblm8dYBcXQgp4+ qlGudGYyMlgfUVOP80vMHUyESzArATHcqJHCRvBbFEyQiRHpzWJDjaDmSzHCE0nlkja3xfdax/ MpPGXgvJ/RL037kEVuP3P+gfhUhsC9WzS4ugdPVLTAomSy6OCZzjKYYqa0n9c3/L7jd8Dl+ XcqiZSF729rwf0cw7jO0xmp/ TgJNDXcG0Jl70sj6xByMt7iJsLtoSMyzdjBimPGNBHbO1h5EjzqYZI0P44GeS+ 2bN5xlmmvEsBEmySvPRKTfT3PB7c5q0S2mXVJ1qKSXnFmQcwkPpsoaAK1csmiAcriGU3nx9f3NVcKH0e Nf7749TmEmvz9dkS3C5aBOHuynyEMUNxvikZB4k6TaBEVZbypIVziLD9 /K5SHHAuXUNw2a1/1+MtBsNvfH9paghahhl2u2F055/li6bd6e4bDhuQ3P4h+ mW0DFj2HIE6L31CZT8btUKV1hZn9pqOVMjH9Tyao+BPjvo0+ v2ijFfKLtCaeq3VJPvHFVOHeOr7TUKZuzqxvFTPEZQjrhdSEG6YmzjO8bxaH6ZCEI48yBEdzTtFgaTqz SRWha5iX6QetQ4BJ7YmO9sU41 +Eky8qal3RdpYa0GyVp9eh7mrmxQy7kUJ0jj9hjNt4MeV4ksuS5m+kC8sE4OS8iNhcc7xcrs+ TlZFrm8xQi8m+6fbU+/eJz4yaXIXZYNc6ep4ucP86if73tfqrjC8J3BpD3YCIq+ r56aubBKxsrDlYd1du1o7pXNgtWp++oBoW52N5Vr8obTkdyImo+ g1rzckI54xEUkGstJWy2WHtNvMRJtHJCRCSD0sybOgKw275hRIq+cas8jN6IzwD9i1mB4oy52izgQ/ PpUtGRTTOg5fKOVPbIlPRo6PVfrMniWMC4Bd/ SMDrEZZZxfL0gMXdy9kMoezv0rkzNSSTgcNZsijKA6dPn5QdOv2j4hvt+ rdz1qGXgLFvXyIveiBI4vZjSzTaDLq3mSKlZgGodRcnRincUB1dFNaqmmeVL13KTuU7bj6DtSTSULyzg 1HIMurFcBUbUAcier3S5K9yG / LAtJRXv9jiyl9nGgt3dIplvibGVYqP5lvaxiXUDNJX6h9WSWzFuJOrboWo7sBSjPjM45kwU7Cs5brbFi J5bKoTLCmslWD6vOVa8nseiLPi4s3 /w943+ Vjwy5gDIFbqt28vCMkasUUgNqECqSBCuMWwJiDDQ5P4vmlTX0rDUCXMHaU5QjxoOq8zSWbr8p2N+ v093UDqTwDgg9qtwGc5Bx1Ah077xmfG41AVbr+TQimLBhFRHl7X7gwmUL5a/ I7ccYqPdIrkUgQazgDR1bML9P6eybuz9bqFuw0Z9Fu6ubjXpuWlee0uY/ GEmgwUMhICr1HAulGM8EZBLqFEaP0GSLnQdg/Yn2Dxi+lCwm4MX+lplKR1psJvz/e+xBHAI5C/ sgAZn9gUgtfX7be923qI8+/ a8Q9SKdhfJD4E22M47fUXYsjPkKIzBmTCpudaU1b3vYbUlfDyUEf9oAw9B1GYJaFRlwD46qxlybxKcjV AIdf2x4733HJIzvH3MSMA541tGLr6U7mhJa32t8prvxow96hxVDgghPqCn8JRyrL +Mshe6GG/JxKlvUhkk79Zeij6SQMoAenf5i936TJLiDEK2e1DJB8HR1sEA40+ 9tMTsEwk5jVrze7PSgsLJh88uohdyLK4+ iEdWCX6mfe2WANQjtJlTksjVuO6YqOLaYQIIffkZFowrCixTxKxgX3I0inDGqEb0u1q6YH364tiKIIed zxaBvzYxGzpeH72lG9gPxzMsOXkIBnNKn + JrbDR1HeedZtSScP8hstc552xjlaSzcPzwFWPwmrIqfqZc4e9sHeT5QxuLJzTw5X1w8zCcLtZhbhHtf3 iOZ3ntExmUdbSlRe0BdLzoX1CLsCdP9N0F /s9+DCK5R18cV8beOR+0aJ4d/s+2l32O9yYi3YTZ7kQjK22y5kykU68/ v3yxTSA3dpL2xcABA7GYy3N0N7b59kgG27eUupzeY5j9wrHOj0qn6TCz9UA2SLf82ztGAoHXEarpqsCi rnnP4Hh +neM/N8qLBceXr0xGRvb8rtqyZfF3T2sW/aUF2+ lqrXpdytxCh99lcyBI5ZVUhJa5IduvXCfDtzGz6xhQZGG1S5q0xUZ/4uWxa1RZ50+ kw38Z7kEg4tXkXpsNsHvhYmRKaWztYY0qmfYQqmUdH4yuEUO4K+NhM6WlJ2hvxS+Jby+ nuRxCiHbUZc3ZV+4gGA1GNjug2zur3UrjOTpoOnExw14beZbmGmN6L6gpN4U1R9D0r1U7KvlGdF/ knCfW0hL0pGdvHv9BPt4e8782c5ZyXnNd7UM6P0B6ogiE457KJyhcJnss5seT3KGFK/ 5MtFNnNN7BPqiqm75dOpXagR7uCVM9a+8S1hRStki659Jt49JBYna7TBX646uXAubV9Kukr+ RXFku9gHbHszXp27q1YY/jortgu4bF0o2HaZPCDF5yorkyCX4bj6BlLlk8SxHDuw3zbeQzNez674IHA+ FM2udBfeKTfti9Bm1zecEoDKgi3a9XgOrYh2bHJTeDECvJJmovJj65dfYTCrw70yjhwbkR9O+ Nmgcx9StnTJp+H/Di5enoekalHTux/crtE8wn8ansemq2bUNz66ow7+ cvwwucqBxyFlD7JK8QsUn47BMQpjZwec0J1Juk/ hvpNHV69WJdKFr1eGScehLlVCxUcwII7PaLqmg0ejTnGD89fBJhtNyZcuTu2/9HxY31uFXWds+x/ kktjNlZfJZzWZS49YIqhUmo9FdahMEvi7alQ3nr+tT2ieg7NEFm5IGH25sowF+f62MkZbua0M+BOiJ+ 1L+5zW9j1mmo0G3IC0a1H+FX2gEaUy6Q4xlfnFN/Zg3aIYLgPufaWtioETP5AhQd8msn3lqonO+ kzAbZdZ7TJpGehcLseQYhUpMLS9ruwbHsCcwbSPVga9YC5MvM5tLP9uRNN7qCjb6IRSsKApyWyiYi1Hb a8SGhIozUWDbGhV7yTUWebcj +Eg2QFrwu6C+M/QR3SO9lH4fs2s+jTfC/4V+UZTKsmhBdIwLbv1ghYFgAM/Sqtj6r4tp/ GXKLtnts7FMd9pJkA8L2SH6iz8PHVL1PsemU+1Hq+meN/GiTpeES2ueojR/B0t3p/h/ x53Er9XGTRRD1Bi91vg5ez0kkaYE4UxoH0vxcutNMSQ5k9q3yX47dWIQpLeyh4ic/AAUe8V/ gLbqdwtK1C59lM4VBsL5qfs8Pt6bqvhhJLipj9eimii3xvGyjokqsV9DWOXpZhanidlWTBb5EuZlWWoz FWTfhA7vODjGWTd0pdHDaWtecRJoBaE8FhjxkD5ZoDqvLskX1RFHNMJ0 /03DMOVqd0sFzcUUxXp0lko7LgfVJjZp3dUhLE0rFbxJb1wdFAvu+AoThGOKr/ UEdkjAnNdx12pxfLPOaLIk3Q2jvm5faFJmFwH9B8yN+ JV7ELzTVCzbdLYFSKA5eFhycvSycvILmmZFAdDQKv+g5AwuILBsW0m8a/ PfBHAKHPDJfsPx7gEkdBFabYU0z7T0+CVq5eavLwCZKeokt5J3+ JRfVF4x0S2cJiLcMneUAo1zXqWgviGvhktTP3lz4qOHiu27bL6Rw4s7+162Q60fgTFsM/ sGfApgxqKXESOt12cyrLNEFM9UpdxHLLRajhuT/ xkSfEOr3pStAVZju2zEloxo5PxunuKpQIc0wjkt16okscm2lG3l25biL5GlTU/ W1Ac5muozz7Q9651YTvBhPMZRWagNl3vjtWIWoHcaVkUqwV8M4n1K10m0MzK1dOXCjKjTsuLsiubcGgk JIpWVDdXKvvVI /YFDESWIPVKNQSMeWPqDg1oWZ8Mk0/ cAKjuKwONIT6fE7BVx450k6sJ4ReH4WrwwqvJxpDlsys0u3eavji7Vj7i7q3wRXNkrlaW6gPxC+ QPwXuAJpS9PBdDvqMqImzUqZYtRADmT7FbtS+RO2yba+Flk3T1BTihZslUTvUqVL5yg212676dxv+ La9qaICGki72axwkG8hdhKvCfkcgP3KjkVSf+hlgyGaTKaQR2sFgUUA8rUHsBFnimjFDtc1CmBjq6+ 09FYjpLnVCs3cyKKELu7sIEa5U27m5qABZ64JNWz45jGviSR2vs9rmIC1e6FOub8DLGcsVuURjSa9znd LVPEdztwJPhvNETvDGZbQi37OxVdaQ8YuMUqcHPq1aQq4Sd +sXWdar20zcv0q8cPkLmvJ3JulFtiffu5uMaVUqFb9Y1bQgBMduO0hI4o79LBQkVpKPM3Uj+ FXcA6UkBK+n5ZwNp4014hBAMZlZXSkWg1BBOMGCQRjAtpmhfMrx/xLL17GrcfomrrJlM4BDpr/ y7T3K5kTHpCJ9h8VbbRkhW10NVZzoJxla+ VDLY3acqlcw3n8i62BubvHXiKl6gcyzyaipkSXihjGy9memxAR9JjJjxhcr1k1MfHdmgZ5a6pTq1OeY0 Yz4oEDWCcPmUxSShnVCg7di1h1B0q7dvWOzcKLco2v6B2vXOpwvj6Xs3t6oQwynCifvrHQ9kFkyQi43 / UoPw6SyCuEPfB6Dy9nkb7tbT3f9nzkTBXmhBxdYYDb0S0ojZEs16skzHkWoOLOtKWxWoCxeQgJ4tupOb oqu2cas5ZNqhC9LDQ3WyOzkhiAOpGeJIEoBVeKxki /lM55rwTIewu8W8V0bPXPd+ 3POBw17ancmJIjYyibbb8hmzLPpX2e2le6fkuAI1rsuzrDZug4T3lbyovWfHZB3bWTv9VqO5LxMxREZd 1quGSUez91jIVQyxUzx3qKjfwqz +qlJ8TLRqTK8x29Y1z5ix4iOshSsFELfXh33J8yZ+ gcPaNWtrz9HsuBecd4rwDso2Uucpg7x9YvCw0i0Wn80tQ0rmipjMNuJZ6zmAW8n3nsFrcm1m4Z8e6YI7 0ZgDx9rYptwqIhcEmgVRd5MAteu2ukdUW4l /8MUZfhbfnS3tkuzYGvpxe0L/ BJ8EJ3AY5Du49TfZkxM0pfil2gW88z9Uj7tl9rZY46wU3rTcBFyJ2QP3k7L+SvscvOB8oGefhj/dZ9K6 /7WtWFg92n+E1H3Bbk4d8uts8JPZ7NRdzEPCT8le5VNgyH+ zsEzVlFTqpopJJrtZVhELB3wcWrxZrV4JA43i/u9Nnit/7Ks/b4y5urxLuPvF1fCzDFup/ 7awrJTZNQOoY9+8fZUA7lWwoP0QS/NC5xAjKf2zDn4+ U1hnOxQnWLqd3C3xNfzHK5rcknMhww0brvdtrYTeQFQ1lj/wIXhCFOqMKrNJErVWKW1H36/ Aj6yNNzBUCg7eCgZJFpsHIM9GhB6Ie2ACIlwZ1ugyi0rnOR0s2jLpCGh+ m0viZJMc4uJ61fIdzoFbdC0Ny1ZHc4BtyjSzPTqOI6HlgtSq4xkrbPVyud40uxd2h2FbhxrZzfw/ 0EdTtY0V7KSaqgrtwcIIjpKES8ayPLz3uCYaF4ZvxnQPXv2ZdIxp4dWFwh2eCDD+ fqp3yLk9MzxlHTuN4dlf8JyqHi8Imw0g9/ X2oaYblh75GBujmn9g56RsGg8WWeLx1NqjK7UgePaOyMipUx30PUqgaBSBUj+veKPiHq+oQy+ U9S9LLS5jM9a79B4/XnQwsBU2IRb9TuZCh+H7S9t/O36VweA0L8cv8f5KPnemg5iKqeW66guTuS67jn/ dWmo+ Elyws0u2ZYBWJyrrCr8l4mK4w7c6WxOseX7RBMiwxOoq2Ay4sN0f3NMA3loVGEb40iRMptbeYYAeq1At ZMyzPtXTv2csdIUrqgqcbqg9sDife0Ps58mdVq1wWwaPcef0HdsDbvUGpdNNW +z9d0YE4+uBa07eeyo7Agh56abMtD+7xXw8tp7vTlUBj0Q2m+a69eFA3k9QSXshvDNW1j3CIjq/ A3xC8T+ IXK7dgjHFSc7VMgVEPb2gs3Wu2szjRsJU1RRfuloL4pG2huFK47THGEVibG348w8G5O0ybP2716S62d+ y23HfJkZ2+8l/s+S1DZbCE9tRVm2+ojkW18Xx2yqEWQ3VN0Am+a/ nOCv3M9uecBjqWxN3i8sZYQr39uys3JZbwDsqYnYkjv12Y/8dMBstcaw7N/ 8n2NH33gAp6KiiPSYzI3uYlce2WnR/ budxv4LpFJ5sjqrUONtx1CTqlzq2YsWAHTQiZR6hUyftBlQXn0QkaKLnsUmBVfwxYRf/ m35ttiwG7qhRg2+/ zLHss5f1N9dXDNUoOgd5xq9vcJyTvImBIOtzlNK6yBfXa4asnV7wQ8CthqH8hesfvpgCC3s7c30V7Sjk NLHGeEv2pgGxAnn5HZb9FUrxruNRsJSm1ckPYxIO5tWX3mg3v6M / axnlsMJ906BeApFekm20AwbTb6D69MLEvkip7bZ3nJU4ijL356rvQy2NmwUmhfQNhN2o1NFmAaiRzm90 W6PNLyivv7JEZ9BXAS4wyvMHAFBFPOL4pF1mnkyRwNjgaWsas8dvfzL7LGSyXpj1w5d9TX8f +p89h+S9j0ZTHizLyccl3ZB1K/dHSEAaKkkmZc65pcI/NItBZS2uuLz090MrTf83Fmq+ 2J3vrVf7ChYN63X2grbOrEs0sschqb1z8Uw2UwJBdXYhyyHsUSLD/014U/Zjn+IvhvS/ BEhVkC2ADJtT3PPWvWqLt1clG4696ji+qbyTaOi2mdy9nbDnrCjfAlTxzgo7pTQe1Wws6eiyr0l+ OcK4Rwx7skGlwuRZ8z3CnSmO/ ku4j1jtXjUQeuiKe6wtA0odtMw8IcTDEHg3Gt71azd8DaCzamYTd2B7Rkv2JN1g6nTvI8KIFaIsaRdJS 0vV7qfU2jiADXcse4KGuZ6JbZwhLhfSHmPZnKqMELpZaXkkLqwbeN360izmA75gk8jhKY3Du29BwJoeh v7FzPfEd8kVfROnLZqbByy2GCDog8G4T1s6NhGZhq7twX9LlAcBth cWe5APv1yf0lZ7MT1BY0rG26Nd4c3txILCiFhvTWHIRhE9k7i2zrlo80l8zaO3NANS0QlrxsW8Mm8rO2 Fp4uRxD4MU8KZJvcg0qR PWTdNHRdlmHBQoCX0nP2IcppgeqiG5GcEB9L1kcBVdiKi2SX/ J9cgv8GlfuUxzz6p04OIGt82PpL3FFWPQhat/cvWxHYyKwmPJBRyPNkkeuYko03o/ Xnza8YfGxBeRH7kV5eLI6gZfA7O92SteDCWv4Mil7RNSmx+ uNqI1Hhw3YUUCsHjtbhfXzxynrdUKx0NGaVKl14odpY357li3IOKuBjof6A6RQKXv7i2YUlFetPcnhtj NjYzL6hcu9Ft05Cq3mWM6kmsdTahfqimxHljIJCA0ibsAdhgcUf2FumrWw5H0hx6dZEwMP4UrgD0QbdH NHPgi0J7wczg9UePwmnD3crLN0MsiJ2HT3nhZzlwjK9BsgorDp66J +gvFHq0CgF3iaWQ0pFjjPXPxE7ADH6uLHgBziKJ3sjkzVWT0L31CIq6N5Hlfjptz4Sz6spO7oKUujpKI +oaVpE+fZAKFTxFc6Um4Ie7UWRr+jL2an2G5WSfxtu+P9aVxCNxm0/fMFctm8nB/i/F41EjExikMKGF/ 2nT7/MvwR35wFLoTM2PzGJsj0nRkGMlneuy8M6aXj07lRsU5595qQo60lwAkDxO4FVqmmS/ WthvuEAjqj6j4YSi0J0Tt6cZ6NpaJy/8Wq1kMEcj73ZUcPgAgb0jmQUnZ58opmc6V+ 9xx93XaSvZc5jLFz0SmWqmkAqx2YrbNFNybfg6VP3w2XjWCv5y+dwk3yfuKxeqO/Dltp+ mJ22PweSURbbFFXM0nhEVS7tlg1TXGAzzZZvH1egvtG/jN4+0efFLcihn6i4oFtBnSn7Xox/Gd/ Ae4wDtFQEp+ObXQt9ZWCSXjo9kyWoDg4VtlImUrFvMpAE8twFj0WoYNP6A82z5B8y2HOWzT2zyiT+ yzkemfr4occe74djTFs4Zp5VlSvoYultZPHprVJ8M2rPnnDBYXSu0BXTT39r8jx8reR87hY+ pbpYg9n0wrDTI4GdmetLASO9YZBaygva4joNKe0vphM8yacRaQrK+dw6QiogL/ x8kzpzJmhNJy4v00t8fWUakDuUleTZdDA6VvWRmN9Box6QWPeS4grzTU8zMkpeFkn2A7ccYDD5Xz0/ pK7nExkc6nyvogRdxhCBJB9GLHi27B9CeXn4aZk6LXOPueuoG0vh8I2K64wLPh08rwz45G7QP7sSH9V0 C +srB2uRFm8+mzap5d/7AqhtnqwSzjl0vrrrFD8KGJaep/Uy8tDjA1Uk5RKq/rRSp1Y2Rq3oEUwi+ aiQ4BZDeiski7F7jclxdGhdI1IfrLweAV+ 0hz3z8bpmrP9vklh5viCdwBPQoDEFcxzTIeB01nio1fXck7NFYJ31mKSp2zmiX0h4KrSBcuXSVIQ2co1 Ei4nPpPhd19gQU +LnlYkSkut2E6Hjy6khgLCtzriQch/cgtJcgvX0eaOm9M4xElnh5qBqcilYD9C5w1cNKFFevrEVCzakD +M6eIY/Oxi1EbA5vOWRPAlvCWoKyKxVsIeZhgDiTuXNAyz3rj5jl2lKKyHR77XT6DiITTQliDvqSH+ LvxDj/fTL7zlMVvAl7ULFWD7yrwLNt9z+m8Qxje5SgzgkSFWydeEMezdNleAOhN0sHVlzI06+ SJpb6X0tgv76c9OzOGSLYa+7efbv3a4l3Ko+ D0Gut8yGpEhrK5I7bFvRAXuZXO5yH6TjCd9fncMdqNvjDAyyneakox7oAiytk3Hzz0StetlE49fbiu4d eOhqtOsNEsE8uOLMbPSQGipdaPWarq +sbuLurSfoenT+DiU0TUMsYBjLGFXnc3lqRgZQ5dO3xgIIh9yl4piQiVzKpEBW/kCU5fvJ/ g0UIeNvzQEStt6N0vgrIhvMnsbtEJ+8sr0BemKfb1zA0cm/tN18DVF5y2Ac7+ jOYTkQqYZaoGYn7Ku0jU1dTh/i858WyyksO/2pfhZpvi+77M9TzpmFcr3E/ mFbxqQiNi5bnmb8TKdVLsr6ohYURTGCkMXyO73N+dcC/a1kZ5lv32rY4/lr8cB0IbUq/h7/ DJUW6tzyqfPCyatrS+JnJuq7h450x+lW+ nvvOAbpE8XgROqr6xgwsbT7QZoAPMJGXZEy3dDgwuiuwab77779DCwEvHy8TQVuT2RmC0CGOppTJlMXO h8whgnbS031LaPd9g +MvEFla3/lY23CwLslJLtjdrQpUl7txU+vFzeydoL7e8dU8h1Ip7wR+w3JfqgAthmSpj+2fDPxkt/ RAQ6inT4JWi4d2TVuiNOmnGVbC7I1QfdSkqlDEaQbqRpIWf56/V8ljZ6VkNeM/jyzn+F/ g2P9dDN8XCwgbofYqdy7QkLr70S9cIeceAd08HICQIy7rhl2WYvQrkwUCmrFKFoSVb5g4O55taeTEeP1 04L2xq7dd7w7HXYI +aHlIdPXPDfZT7Cqb3XptJt2w/tuxEJlaMudHbNxujmxpAwS2Eu/ CRiNhxJulDSngCATGh6b4MGWV23I2Wyi6+ 6jH15bvmPpY0wc8XrbY1gp0Uo4ZyUNg4BwlFs6P7g6i8saKfYDONnQspKGAJCv3wF6qe41vkd02W/ tDyan+8jvgKyKx8GigvoOShoDyPuZ3h6k3zCbP1dJt2gMU4jAXO28MZZyos/kK0p1eBkX6bwdV8SR/ gqh3yZrzn4ezt4ctgSC7VM4JXPadffdmbw2k5nrh/U7gJIOW2FwXrpsJnQERpPykCZYl6+ YHt2KUJS5SDgJ1rP2HEm9ExXv6jCrTfC9EwuI/ mIjA4WvRqwY2pIuWOUYkop0tc0BC8xGjyfQNcgLks0nFF16EPoo8qb/ VJll1yREQhIe4JP2oN6gd9wBta2XNvgkqJYwW2qdn4bv5y0V4Eapv/HpTaCxald2BdXffSyXB+ y3Ccz2FeXqoDeUplj/TRg8MaELTBxcVwED6hVERVX7p2pryel8PRMhxiByY58U82o32+trM+ LpgKWFNbsCZS0oGtTPJzfR1BoiHe4Z8Y2uLUa1wzc9gvdEll1Hcs8k0B9xChwlDzUWoD9XAa8Ze0vMhk wj5IMv5EneKxb +5McaX18KubSL9dQl9BDQle3AT5keALMd47W0G5VYBQTbbiRsvkDfqbZQ37F78rOWD+ kAuxB43pbt9IkT9U3mjJCIU3r4fYH1c4f6J5905u5R+qTh1gaF980s3ptIZWSwnza4261Yx2sjk4UTV+ h29HLbwcWmfKmR7etUvoj2QQ86PXB5yoepCi119aphD9IY6FmECcCOGiqdf4b6F4HXzr1RW37mc4OJ+i +f5/2eLvWgN9vt7up5vw110pcz9mSIgrdq3+vt/ x9lL0enaDITIGzBD7o7BF7BE3aeu9I4qyFEZJ5618OCLQek145wbZphp2nd61WO2T+ nfd0bXIqD597p5z4T+EvD54eUQ0907BtY7RpVBRxwkeevmdp2Go/ H3huXnq0F2iBeeTTyQ8oCfliwewRrRiex7y6g/qL3yn2QW6I5J8cDd+Gjgpbxbr4VIBB/AA/Uu7WFXQ+ eeT+YUyxRUTryq7QjIr0wmgdONKkVEynruYQ2v4I1/YHDKno1udj5Ei1QmEyxN9Tlxbk+ OmzuzL310Xk38ykRrXvBgmm5dl0DzkOV28ePcMO7t2u1qwDg4HtWUVKS7kLhSxGbrydzw/8AXqViAM+ ojHtvTt8cqonhMzpsWWswAUhoANJFPD5z15SHms/JYT4w183A+5/e0wSQ19vP/J9tf6/ AypPNZZRSD6JOVWgtsvICKD4CPArriRCnUNrtIqyJXFoUXjHDbmz6UCAFPYHkQxRtyPLgXGUTHpdpfdq qCtMVIKxrxGZNqFzsAWOqy2lXNwxMOVpOw0R7XEJIFGLgceIGrLNcVb /jc0q52sNGHJNjZ4vt+ n3GoEdYlD1ksrArlg6SAA7QYWvRBo3RKxmqvQDrzwvX9J2JDjm1Jpu2wYSNMMsCEKYjbcto3QSlU7LXD Zyz /MG+ SdvmDomvQhfZnQSpWIOCaDjPOfGx09eIBkGD8nIbwiu1axLBjXjTzVGCUqQIIHqAmahwW1F2ldj3r6nr YuXa +/ W7YrdafzwqZrpraNahHrY1VbzcB2CmJCQwZdJDzXEgI2I16z2sjbGPSzNaw46hf34uAbqh1jnT7KLfJD iRmQK6nmRwbZMwUNi9MtARVGjMXHrGoOmivBv2AtixPubjBYFGUQLv1nOiF4nHrVfpk +6+1dNXQmMzHpKq1Dotzp2U2Gu2s+RL/Rf8OCrND+ GQN91m6FDieBJoViMKvJGkZPB3f0ehM0nbXZo6CeF12FQUOClS0iXFzdlFcetyX22nOZ3E7SQsWvZr6D lhThjpvJzsFXyu4Mh +BtdxIBQ2mMcklpC2HuewVCO+d1kG80CFTcPTzbQtbYvcb7cv+ NtYNzbvRsba84mt4C503ri5bDUo4l42/T7AvPgCifLJWcMsIjW/liNU+ OmgVlCz0gnOq82jF2d9BSl1NeI+KzCHOY6GTruhwX5E3N3CLIE4kE4cqNzV27NphFMHbVOkxP/ PT12hONDzED1nfDFiYqrb8hvpkpJfx0mwZCFNpILW4VjaV+ 35GpGCSZjMQsrrNi2UX3MpPkqCcPyFfrdxBEU74N56uK/nbfvlqcwBHRq8wVW/ VKJ424HIwPw6I5jbXNAICTR8BRiFWZpEPZ4dXcyQkvYDRrXeDaeBzdlYaUClXhyXBqtuUbTuKlRGUVPS BLC8juxYw84Fp6Z40vidXGiUXnY0iuIOIR +nfRbVU1A2sd+6fSuL4yQ3qEGkdrYvqkDp7ZVALjMIUjFJfoD7avK8gG59vl6N8Dzv5ZjgAkz8/ VH5X2T+Xfw24Od14cj3m8v5wmJEpk6l+XQAUqBCLLb0axSeTwTDeRTezbOiuCewpGz6UzqmDhd/ADt+ 2bmE9LqsUDfaOxDMGDCBE3kvEmcZCtfpCyXLxpLjrTel29SEtCvqX9h3MG2mGjpJSBkWC99qgoJnC9Qs yrig4IM2GCUHDwWPbkljeRRoAplh /wAdNvn+ejmo2W+yd8MCzl+S65l4qKzAENf1ifR5F43FjdSuEtMZH+ DbGjsmhxvh78x592iID1wx2cCPtG3m5lfxIn9Exk08ljLpDlwngJRTogzfVc6zmAGfCKFtnfwMM85cXE JEWmTX2lU4VnWho8O2 +Uf2t/GS+DXn2flj8xZk43A9sAHFw8LIC42ffrnC31v4Y0tzAxPFgHp3XQvipaavQka9D3i0J0iL+fnu +tzfvhLTqrn65Hg9a/auruphu2cR2y/jW9/rZJU8RFeh0mw2aEXT3xBLLhi6bQGOZwBQJ+ 5qou7P3cDxCI1XxO4Y7Upaz+E2n+ UhOBXBmrJeHYP6eLcD289BtQjbMgsKnb11gsHu5ukQd38jr3sBoEaS0m6Bb8GefhXgIqX4BO41jBSo5C y +bF9jguIFHpFaeJb3Ag8bw7G+UHzlYpJyQg/ rC1GvMVokQmECkeSqDbHk2LQikhCrWuNSMdfNH3TbFhiYe12v2x7LmaenrX+ l2iZ8huvgnJzp33QDPDlarl8JYmjYX41tjhB9wrYM3IcStgQbIOysGKJJUyY6cuQOhCNCyeQUBRgFkIz UYy3m /jX4V3V+6bxwIiNCtMTsHenjv8R2jxDTBTbsXMJZfzUzJ1oODJDBJTF+ mGl6rHKpdDZyuK7SRZCkfGvvZa0qYmzln8op66LMN64r4Fl04xS1+HU6ejdz+ ka5vIr8fumErWTYKUxGILNM7nZg7v8cul2fj2K4uwJ8e4G77+ ovOwXt23ousd4pOohBWcsW2E54x5g83dlORO6u3kbvbGkW5kfzJNp6gEiEi/ IM2exy2hckpcJZFxLUbzFEOacWtQhbsrJcQyCGLPafLUeq0Q+ HZun6kfqVgoMihmvWJLa81rdMWSLips988a5r6WP2lWSnqxeN4zgkF9IhJIkjF23hywfqJM2QXh4Ptv3 BDYCRHQa6m1s919Yz3h2 /TO73GVlOFOKZcnKz5HKcpci/m2e97tUx8tBnrY3Dv6t8pck6Y2APFZdPG6ziI3GxbZI+yFLVIJZJEjK +NXH4tvTmfdTWwBd+Flqg3HbGZ7b1Bmrl76IyfzUQ7lgmQWR0hJBcY+ U63WGD86QjVJBkxO7A8lo3JRFNPC5bf1g3XyDBOqa5nkZGGQ5JgS3WuOnSmRan3gpIevCqHIL6p+ JZqwBF8teIBmoUDuxcHyqNYosr1SnxcZdDsixR6vIFfBCtS8n8rMSB4BwvRR1uD74Pl2ue/ l5yqn4j3xpNPi0tn6Noz7ux4a6uG/jc6KvMnra8npG+ lBSgVTdx4UxKMw1kJSCTOOEdW5yADIXCaQFQO3gmCmWgp6b+O/ v0halRFhlR5mJWuB025lAsnBb6AKxWbJN4SbaAYKjK/ohXFdCE7TzNPg+ sdk35CSRj57Dbo6Foxw8j5rE6T3LGB5Q8sY9vMZqEFGKAsE8smyDas5nvLuZlwtO/ v15glJRgQR6stGJerEJx930rUV79d/jsrJIgAL9NkTaLOLLOKkvi3QHyfMYx9Zd4TRu0W/fpb/K2h9xl +q5O5scYoqDQ3g9vjEC4o+9vI/Bz9sz1Rh14+ PEmr1uDw81t11Km9ifGCtQjIB9OPLSUYfURk2frtohJc1wJWHXQpaXXNw+ MPxwUppOISUJwmEbJ87nziivU66qHbRHTHBa8rJRPYEGUznLKPwbYIg/Vf/gmV+z7Hr2i/ Eh6oV9PjrsZqB+l+F7Yu4XBpF0jksV+tPIg8rLV/ZmEMerX/ lrLm6JhjYU7AHRJ0hWkiJ8q5gtgq6vFbzuzyc2TlaTCRYLb7CpQzF9jayHlTLbuGIxnjCVRTlwSLYGAb IY5I3SJqclQR0QWzx1wtl7W8J3aUmQMl7iuo5l6a7l3tDd9cGjQzEj0jjLmPl0FO0qinDCySi /m7l+DF+9/O+fXsYtkW1kdZyWLCRanRYQ6fIfkBmlseQsQOwZy/QZ1n97khwyxzWlPUyedqjTK3f+ mu9jHunMw7u4K7SpbBAKIf7ylIzuMHqjNba5yJQrGoUEFlG2cF71QhNpdEX3deJIK1GBNi4QgkCFKF5X Keifxjo0x +GzvVIkkiweoooVCw1BbAphuF3dWAfCuq2l0pTz+ sthtBaGG3mKxa0x17kDOgv07t1k4pcXypfZgBXDagyVBrCTT4I597r3mB/zPzE1/ kjEAaLpZgcG5P2pQvpvn4SFxHGJocjKDvKiBgPmZEANFTPV1iLckrDLXM2YXt0dbPvYlGl8WEFcNSuXZ I +Qy10YFCAsXDPm0y4GoJpzcc8y0p2kGdo60e15j1Brn5+ 7gRBY70B4LDzXXAOorce5Q3OpqhHsPMbuIru83A3dC8r7P8w6Ch/ZsbW91+ 1V0nivP3sjxoKDIGHqaeb4AQvTTIrLocgJNN5hHyNKUu50vDIrc/ jcxzQ6pCjHxC5h0zZhqUAI0eayN6itl70dx+Ks2AeYKnAHM5dhzPtF2cWIGAJTVxgbBIrJcmamszU+ irrNSHXTjOwWViMWeesvzNeIKjs1feLUa2vV/RQv2t2AGfFIKViopXCVnZlX3Rq65/ dimxFeRHsJRa63aQLlJfFe3DD80t7B0X9IYkdrxeNNXebgRCippwUYaJXZV/aZIpbYcZYfC/ NK9BrGSz6Gl7z1ddeNJQj7/8ARY0Nrs+3un33e0K4u4yUGClAidUOG1uUBiPWcv3t+ g8k4rSo3RTWE5hPgXRt6mfbr2150r4jfBiJy2+nzr33WM+ B182XrwnWFhn6aNOv1ZAs7qMtHFQC2la6CsYqDNaL7u8ydqeY8hP/ qwyf0n47OG7KPRBLbELAXzLxzl0gYyYIxG8fC5PbZ+neto+BodbuJ/ r53Cr0c6xrrgcaekbwz6puIRMHxcoNTYXRjaRZdPFBkrO8BFFO6T8fjnpg34CnTh04PlhZrJ/ HENaeoOknf5c6atfpfrkyFyXHDt/+JalcG8eBV/1BN0kr6tWk8f1pM0guLpocPsq/ jHL7nUJ4NTL35HxtGM+ EZHYoSEtaepgotoynoek22WSwjj2xR2rOiluewhbNF0kDOG169HIidurosrjzXK1Cy+dX/ mhJDgTg67QwJCZaxnXBGtiL9oA/dSFcDAAVIwwXALbm/ ACERw1wF9ue7lIGPh3SwZKMOBFEyVWv6Sm99S8vthuegpU2Xn7AhSHOGy8zQ1QW/zDf/ MMDTlscf5tBxtW0xWzT3bW4d517lWesrmKkqO1KWqnWUmZIDVYnJ0MTRJXlSFop4nm5Q/42/S/ f1uWmCKrjVdZ0vNYmukW0Li69Yj381uLlC/FqoojDqM8R+Y1v4LwNCGyHchjIPbk2vLKsF2JW+ qfZZpAVyz8MSqs35XLwUByqn24aO8bCcmnT6rpKINubCVOJc+8eZwaLkSjymNO3x1oD0E39Y0Y1JKAs/ DcbRSSEwyxx/pzjxo6DPku792IHvE+fifOrzgfmgyBz6FVVH4T18zd3+ 8I8LRCOXkFqWKXtR0Uu3fGMMn9l4h7n8Eul+yzCKLERZEDztBGsMN/ctseFHYwx+ JDFppZbaWGWMPJysQOnJs80pviFyQFe/DVZSTjFuKbbS+ZSsu94mT4+I4Lnasg+ 9CrKlBflkEcShMTiCr4IpNZ1B2L03jOJA8/2jb+G8DDXLPfQsxGfBmqHYSabAq1i7M/aR/Zv+IEsEeq+ WJ9P8bF/eR+JEe64HUkeZ9dJ2dAagG3amcnf2t3QmccFmu1rTPYb+Bj+HN9b6T/bgbhan33WIvf0+ 2wN6rDxYwKLUQdKu9W9QCpOGB44td9RVQKD4tX8Yp41C9jDbS31oVasTGsjJSp106WIT+ mAI2HdJYhxQdBaUwQAoA9wLoudtW8nQZ5gsRn89jyj3ZehtlVJWwHvj7KzulgggvsbkOfjdWr5juU9wz xtWmoVBGljLi5CyQfmDEENo8Jlcio2UUhxFiFY5jYbiveaMdPIqAF5dq0 +duNNxRaAzwCNhsNxZY8O0oFSNnfuitXMQU9rdmgbXAZyrAgjfq0gv3WrCz8vLvk/ lkZXtwK8kYOL5XRrJ+ egrOXt3PZkY4klbwAcjeYRtaLfTEJc9z9H0rF0dvpVXBvKFjh5seRWG0yqXJhbmSQuUSFPHoCp6euSSI dzRZ7xiInfTPJYsMup0nIENwSFYtF4x3f11A +7hcc25piwYV+lVCYtk89jmfuwx2zuurubE++21DvxtxBjtHua2uaaY1b71+ Oa6rrOCQAxEMBnq6kKcRkCbP2t4xaCDDjkahVKn8bmkFH21TDf0ZXMAXsK1v4QYVwgSeSRXIyqI9P+ 6vn14tksea6V3dmgNLaLFq+C9U0/Z9z6aPXP+ ZSjxh4Z5PuJRdPuT4EmrgjaOHNYGo2s3q7aQ7JzCUD4vutlryEh1hxhbuv0B2pC2a5RLzUoejHwpGco+ 9VNwb1oASpIB0JtqFrdUa6OCgYpwbNfgpD/ K4D2mkuST3AOiqUzX9eYm05Sc494ldcy2zubrpv0pEkr8UF6qBvToGMa2ByXVvvUpMdyro8dVwYbe+ lwC0NLjxLCmIdX2a18ScUs5GcIf2IMfFpqLNeexvvVGJi2KnB6ta3uhSP2M5nKY1KCgrkO668i2ndqh+ eQQTbIIU5atoctN2ds85sB/UP2l2jKFDwEjZhwvqBJV/Btwa3FBV1KpnfZt29oN52AK5ov4+ 1WZUQJDsJEE1Oi9FWSfUVVTCUgfwhupl6dYO2dzs2hG6mc1ezZwCg7y9lW48VgyvemN9XMm/ Cw2a40TNIlaFruFXzphHBy1KOBXrhQJ0/kuAVdgwK9cSgE9QPIMsT4Jgo+E+ Envfg3ZVCaPxnXEHpS08d0b9wEhuOJclIMnTNlzVVG7AMJdF9BtAI2pxlovuFqnrY8I7Zl7dg9ZvfpRR GEhn36sDVkYbS7rhSEb5OZskCRti / H30NeZwuXWG65m8v0qLG20DVtP4i4f4prDryxXdahGPeXVj9wgF3NwKI3uQs3s9ykVOk0ZoU5NnNBcfI 9rK /YsfjhfpMpJI79ZxtKrxrslPP58qwTz7kHWpnVAp+9v9Y0omd5KfsDts6+ wuNvNyy9rjoaqAlIRIQQTZFqSrIwYvNQcE7ZmpasTMtNZeHLMueqSwRfDiKps9uCYjS3n2i55Tcya2hJ zFFzdIkC6RVtjTt5U6r450KCEJB5rQ2RSdyenDXTLfNlchLoiOjTxqoHYzNXbI6bkQx1aVnvAUfQgJU6 26BBIy +FmXHPMqo2DBOoo474pNJPA2AbBSB4M1wlYs1wTVf/Ml0CkRmMlOo5/uOyNM8x3xh6Iipy20A/ urwlpw8h+ aCu2JpsFlXyEXGF7Aq1dFnq8Iqv1vFYX8pCnW7g1YIeIiLTDccI2hh9sI7U5S8TRDxqsTqQm1JzjKgor BOnW0h5nyyHer3bGlaDEXwMXhR9zYyqhYcZ2DeFDk6n01 +0ZJCxEg1aV1bxeh6q89zh87pvqeldYrhjna8sfTwrHTW556naz0tObiuhgJJkykpsm+ k7t29vFutxs6Eckm3A3QYu/uz0wSqQfUToBr0QTpJ6JqtDV6qxkN/lPd+ rYmbs9GsnINzMOZtxnpLp9qKvsdYTMUVXT91WS4X3r7YADwhweikrL4r89/AMPt6+ JyLaY5eTLqxoVP8che4sCHJkr30b25jRfNbfTvWkGU9Ga2BqclTJjPYtrfiqppJRSTmRGRkspzJPYxVI bBe9CenH1l86sirI +HGSFc5m0V4eKkAzaAjtdmiahlk7gkhIulrGwlzDBr3q22Q1nglspN7d7z0+eLw/ s3TptmoECEzIHPR0RaFMcVwswskMLYZWix3gaB27kmkpalc3Me7Iw+l2tw+oXNra+ MGsHn9l6kVwc4y0p/Jayv15b9y8D5g+IL+ bm6cTdmnzN3kck3qeg9rrkFHwNyyUVdSOM61mxtEiXM4C1Wk66pIvkzALEKLWJfhl0ryuodHDUFgXf0d FlfIDN0vp8XQIg7Am0DVcTSmbq2ONL1g9Vzqs5lQIyhw3Bcj04RwZz7JPjaV7pg +P8O0GM4eg+m+YxwGhPnVARo2wnhUj8hl28srsCfvVSW35gx9ttZb2l3+8lvAe9KbS0oXv1v+ s53Fyxd1uTERr2n4t19O+H7W4fU/P57wQ4VhFQ8fs90ar1fhnMcrf2xT/ QiD4byVarCi9V1t3VJUWb8YqmcsYNldi1C+E/E/yy6gjh3PSHT06sLolM8F/xJrvjrWppLvRb+Q+ X7KraC4L3JBKEO42lgrqhxp2qbsPy1oMxkqwhZJbddItl953b+OcXmF8d4O2hoTJh+ I5X9DKi5l5w7KFRuX+pX2h+HrKO+ 7D8bw69NaD63SfHCw1n0tx6UZ0F0ulfbK47tBr3Gu02OjqcN2qw88QHte9zB5CpJlEW3ajBxZNzsAz8t 067hWApXWDB5fyFMIaMjuOxZSnyD4x9A1foxT5h6yRW1p1Lewndse34DV5BU +1Ly+hP5mpKaiZA6OQvk1cvyO+eu4cumJL2m/s5/scT/ ECo8H0e5M8H63Mp64x7CnrdxxatACYNAkbr5z/twP3jtpG55y3d1oY9WlxbgCUVn/V6Ow7bLlFmninz/ A/4F+XGAxx25A+JZqD9OW99cySdwk0TirRaoc3ehaRgXxM4G/G34hX+ s9gUtYewFr5l0KBgK3ywn6OinD1+W6n8l9Dx+BRK0zC8iunYulGkWza/8UzR7rlxp/gpD8C/2Z/hPa+G /0KXiItY0xrkeFUsrLLgG2tgGcYr3Xxt+BrN903/9Oor8hjcK58E64G5xT9tkT87kH5/ pZRhLaZ6GM7eySl92t4CH3I9S2+blUYx+YtaL0BJT9iVeY/QMx9vl+ XrGFy8bUJPy9lBcToX9XkuRRpz9HzKRl2MF96MUfd2sNk6B4ZwOFyRLmFB5T/iF4s/YW/ 3WUbOml21H87H2l0ehsskc1+H/ OFG4wMz87DcJ7b7jzASghnQBuiWLrL7HDkgm100a4szH4a5j4wAIQrbldGUSC+S10kf8wG4m/ oXiMkeZQyU3kTCE63Rm90CzYwqfOeewqqNakKUjeA+k2oWB3VR98pEBplHvESrO9sHFSRY/ Bdtphx6p1s2VuaS/GIk829How5u4ZpZlBFwp/ v3sYLy231exRZS0llFyBZnHopsj6gwuRHwzVqAbTZ9GNSkz7Q87XSgtnGyUrR4iG+12RXN7tP/ xenrSHWatDWW5hlHv0C9xxviiqWr4MGtogOKf1ozD9UMA1Ef3CWkHjUGBZJCY/ CI2VYjIOV0XXuSQNtLp7zgGfl2YcVNN3W1pKd3+RuOml5copq3ZrdUJ5lR+A6IzA0c+ Cl5X4eDs592BNk1Q8UKeFawHp5cmsEVRzMoyMi8Yw9C2XrrbacwkINOUxKKVmxhWO2+ DU7mmdTwvVCqlwvPdy63GYBlN0bds+ dvtIG2V3oKXgjjJRVbydqVuQxgz43YRJRKNTYxxKXP4Ccl9Fzvk54Xvrbw15zvVJUdwwwQ6WimLOpUfG RAMOMHEL0sohk0qNkOHbDG9brxFBaRyqhph /unt71kVrkJ1veth0fuW4Wc21Q+t9vkX/ BU1RORF87xhHlvj8MzG4m6sfOC6KUr9bWNhurCa5pB1IdQ8kAFSSO9uVSKE2tsHY1F6pCweyZ344P9z1 watE1L1x0vWIfQAYavaN5yCxZ8Eom8bdVjyNiuw0d5aZHXSwGjLzncg +StS+Hv2qEygXdsrzqM8PhiDGydPPJRvUW9TdmmwCGKOIy1KBEseJRk/ wulkDh9r8VpAbpOXdQ2Dech2ufrMwG6GSb3oGZbnIj0cLv5uFpG55LTesV1p00FHPX6ctuMXNzdADJOS aAb8V1Mxfph7p8i5rg4i9A0jSz5ZpD +r93KvklEbNCKEa7tcAy6M3ptsu5V1P8YfOtSSnNm+ 1HNlLp9wwOQ7COTIGbQFvS2K5yYyWnzu7NpdAzbbUlCrVvscaB7uMo7SawmoJf4bGygPMhoTEcC435un tw3bqHkptBWJJuRuiAEw8RCxh7X9y7FMBlPLVwo +B0R4QL1gZr+sezQmY22Ll4y+kel54bplIxh4pMZINXIZOePkhFbpWcG+RcuvmXdnLJII/ MZt77ViNwey3PpDA+e81lb9Tgxd1qPc69/da0p/sTS4U0+/ rvwv5D8avdU5ev4fumXxjJpgFQ3BjKgRhyraktzqM7teti+nW+ 6i0m9HiWNodprC6eE4zxAnEZ8UI0manVcWA6WkcD+XmPj/ NQhRjGHkcsBmNpcC5iAUda2Pw1vowP1Vb78HPUIXlpbucGLQsyStPbzqZByrQ4lHDFMMZ09I/hF8Q/ SMpmMa8t1YNqyzisk5m0yR5drBzV1uug8HO6BgI+z3c1nq+li8386gmq6apYXI3hHKVBquW+L+ DiGt0Ob2hUrelqDTycsq9cYwwiHhyAEUJJJbtyJNSv80dQRhOAGdxI2Js2CXlQ7wUbu3BfI/ DVGSlhhO6ym5wyQ0k0PPpxPRqaUrncX9QmGmh26aFjI55ZGAqOemEWYqiOR9uMjowOjl8QulkssxSjNF u7Wly +TxhDOfxo4hzsx5YEwEgg5sl88BZT3jy+ 4hJKqqebxZnhHyvsXCnpfjnmwX0P8lihD7TpOKSVce2Ey2UF80obUi+ v3elarlW4te0mYoXH5Qwi8FafG4hM649BfuVHdwCH8hZ+oqpl8r54R5mwDJ109K1U6egZrjt/ loAic984ApRjZ5hIT5jO1+rgjw6zcJ8O7qG4ZT3REzzVqESGlh94MgoQHjBq3DSLgCa+PJLb+ 2h0IGY8aLDQndJuf7c3aJ5liDwC6bLIyeZdE0lmlsfT7x2ouoIfgGHK1mo6Z+ BcEqJz9PAwpVgo8c9a91ZBs7b2sj+hWe+ Z0Udn9m1prWj04qLimEnD6v3bsfHflgRSFHGPBOVdcCaJStdxn3wv92hnc2s272z+ hz46HTkng681NzHlPVy+ tXqEvHcDNtvagFhXYRu5fSt4343o2EzNPCKauUqhu62WCcFsccAeelG8o2aS29Yepww54xYpOn4FyemB 8yohLVOi1mqvLVrsdbNK1 / OXiq5J00ljtALiwuEufBX7Dl3D9xoOthmWRiVkyKG5gBcxIMHF13310G4F1lWD9vfQhSq0jcXJJrAkN7 RNIHhOJ /GWmS+CGz2g5oYjmZkmkovtYaNf5ZhfikAXFM8QNnlteGBL4itvhV4kbsB55t8vEd0Du60X8XhjL/ QMgodOs6LEsxkOp540U7fyqC78wa0qKCU48ptwc58sW2BXBPXmON7aj0y5ogOWDLUWzw8JleFessy1Me VVdXtBJAk05HQULnnxcjTscpShtrCHKlRevWJE6o2RZcwYVeAdkhd8s2Fn6xa5EUqR0pfkeL10vc4Y2O 9ikJgZHmG3CtzzgRU9f7gZkywJh07AarLT8mgchvKv+VCsUVB1SqlR4qIHfA4r0+ bqM6Sv5r5pYCM6Vqf6d1BRO0Xsil1J7i9Du6D6v6q4+kv2zMU8F10s66TYR5IyovN7fZmy+zU3dH34e+ Cl/0h1qVLfI2NUHAJqvuohQ+QHHesxGFXlcXEDqhPh06CX7IeehntU5s7cDqMJUzJ1mbM5K+ 8BjnaJxR8TyU5ZUQqn9qZ5Li4YjpcDLgwAnyNzH0Q/ llIF1C2fo0uPKxMMtNLTGrQbeib42yzIvzZyfAlCS57A2q8iHdAuaoxvaSPzvt2PQqBe555XhlpsCtky O2aFj2UVwtmSCp4neWklN0eaPglT7rx3G5rayR1EO7lGdcgekeV4 +6XJfLXlm17mUUPbUKfN5wgdagW6fl8EWMjKeZC7ttPQDfZGDtC6u+y/sUnm+ StmE1JZOX4sY16J30PoVjI41+py4A2bC3iejC3oA7glbnRtntPdtB1PeTzKHw7rh+q1boS8u/AGUl+ 8VvqKpq+ tqB6JbIdI7kSVUBzgIHnOIK9qVB9zJjyZrPYkTGDzDJ8s6uLrA7Pfz5S5bwtL06sbf1qoDJMY+/ fQ9U8kwumch4QmlZ76UlLGhtDmJwCW2AGCy2BbwrwOnxSs2wpJj247ttc959faaXuCvMyMjj3XSrUNa6 ZyqKimoxbXLZKSd +ZVyN9h5xyZ3r0ziS3+G3cvRbpsv+Z4sqEqgJJ05Ld+ 6soxwLd9fLUC5IlAW2gzXdQxxNePQwU7F7BNjJvC6qBEuNI3AGa66g+ SMwiCUldIhVxueJnpU9n8j9ydGTzwa3emVmIdd/ b8DI00SQzUx6PM1JMaD1UsbUeNwhyZAtC5RbnW3oi98kHL2it0h8uuW4yh4VwVAvvVxuLkA5MnJu7XFC c9CoNvrknMuDltD +7rj0TRIiCi68rITJMh1hhE1Y025TzP/g0dS2MtP3WXEcDw2hXLRVkmrVR6sLNWR2dMBNalhGh4U+ 3hqq482Pc961tJ+oYYogMbm3ikz9YN5BccaS8cVVZ9tWyJbAUt3olSD6M2Xt0Gn/ yb25ytD0EW8k2UrSwodLnd3rsg3ExHwbl27grCNPIrGqL4OThpx7oriIb3mlvoaLlJQxS44+ VulN6NSmhnuGizF+g9CpbHj09FOghQ9cywRCLXBmDCq16f6KyuJepK2tFPC6/ lFNQ7ofTtpxLlyoq42GrAiULVpyBcV6Mr7Sz8De6+ waatXoNMkBCWYsILdXJl6ueKLMseU1jj4w4QtDyeXA1DvppH5WHLX5cewyZ0APlZTpWB9Wu4jBWAn7dQ W0jJhKQHrxo5TfPBHStbs7Kqo0bgPvk9N7kt69LVCgrjqjHIOelGIKjbkPJfnPkyMaIme8RTr3pekz0B 9iTK7j9w +K72+3Hz0ViMl9mnWfcAqcuw+DNHuZ/S3sBZMPlszzNj/oqthGo9NlZQb2r573iIWIfoQsj3t+ FpO6lelm8sxtlQqdC8ZPoHliQrzfovEBXrc4cwb9veecpFWsuZgiXC7U4QbthqnGPNoxcyayxyP+ JYjkMXztxbTbXGVZET4tqFl+ xHpDgroi6hDyo8ydHgmJ2uROYuN1SURWwc66f1GMlj4wxpzbQ8jaUyc8pZF1fSaVn/ LrqEjn7cbSS4NYTwGOVczovvURyejM6DaUNoWdFM75Qa6Jyo51rbiE28Bn24gnn1TjVx89ui9MyUp7Bi diq47GpPN +RrIGm5kKHGaR5xg+U1K5Jokj7aMfMXx4H/aWqCPydSk+ nKt7QMzK37uoey3Ik0r0xkiynFTlFCZ0X6tSBF4MJ6Rp6N7nrq1dk+i1vtAgUbhqayr/ rbysUB7E9G5oFy6tcvi7XMwsXM2tWrsULO5vjO3OsyoLb02jaWyxW9uuQI4BqnGrNPIY9wKqnmWPWFN6 W3zMwNubFinvqKkD0maGLq4qn +ZpxJkXArqWpG3kjw5zLM0Ypw2eQX3DS5vi7MsKNCZjIiqHQJMzycgmKm4jgyHPNByvjhB5L8+ Rd93ha9z/AAuzq+ lYdNsRfs4051sxE3B2kJFypoN2thDIqEfdC296YtcjLz96RrgwCMG04qpQvb4B3pcogVLNLjH6kifykT KZqwDw34mLO7u4bgyjU +Rf0dOR0ZkwWvvKnzk49K0mLszXsnIbXrVZdECjxsMn7dqWtSFFWqkxnGQC236cfLmOymxLG/ Z83Htf8xgGbc/AX5yRWNHdK3XtsvH5djFeZVf5fcaUTwOFTSfSCgAa2I8/ 4O5VdiYT6warL8s7UA4NqaaoEk4OI2tNx1A7kHE9L6l4XGkfWUCtyoZEISjLTTEBWzDiOZuS2jawrcOe cl7v7cg8a6ws2fWJYeCdavPB7DL03jSoxXPfjCZmEH541u7jbJsoXSp4po6jpPf9tuyk3O95y8hIHamf 8xe6nOOhmb0Ca5CaZLUuXsdIriKZK2xdDURX4GOns +z/AIX/MSOM8K3cHzVUgjGNheD8avjrEs9qsj5vlskpoOWrrhHnYFOJDrsJA2j9ygQbF6svOBw+ ZqgxmuySouQ9fwc57wCaZ7HVqx6xZfC8xd4f3uJ2qBjj6UUE91MuwVtVPofDilUubTiUu08mgjI1Hx+ MbkH4Kn+Hb+7wovP0rYWalkPSTVWXbuuK5TrRwop1OLYDczDenwmatlfM6haDR2uCz3S+ 1lsN5Mu89AR0+3f8/LzqGIQOhv3Iq2sNrCgsrBTjY6lrhfKVfMssyXRdIbkqsob/+ KvjuL6nWl7gyrJmKe3lBdmXx/X7wYA9fl9n4kbSris4lQ/ Sn3iUWxlAoqMDs00XaHBuX655vtsvrLuatxgbu65OKG7g/BWitt0X4mSY7lluXALq9drcuBksdA5NgOs +YZLf0gNsB0I/ 0WZuGexwaF5I7mJf9f7bGG1yVs6hFKRgJOfhFJNsDmj2uigpqGOhalNeaW8416xz7d6Vy68xqA05B10h 3W05yknD6dNo7hgN5OZjun5nF /b8riLkRHjBDwju90zP0lgfgny/o6wXfNg9UN23JsOXsGitrfsT81Edvpo9m+/ vmeiewGWUxKIUZzSVXj3Ey22ZkyssBV8y8a+5aFjwims8w83c7so+CTtR3C9ve8Ix3pwqYCJ6pOp/ IXTM7l5+m9guNcpqOKTiJkOhgYDePhP2XisZCwXpp3X+XWowqSapF82h2bixdyrSu1HbweeuYD9M+ XHq9/Y+ JhZDasfWarHHOqKnJmxINeYNwtnHtoU2DAl78992DCpBBbBRx8zjjsBUocWsYebFLoCdyWnssZtdvJ6i oQ +2HlHMSe3DzUjmjw6Cdd95+EWr+ YoDi3hFmBT7JJfbA0y6AG1mpAibN5w2PeNfcXIqGNExeRTeHvaVrwGOxrOvbrbiGpIw0Gl0w6coLb635 2x7JRU90x0ttTIO8R2UXl6frJx6vwrk8r2SpjThDU6zePGjk1LBb3g9q7viTBr6p99 +6L2eNuCd3kVP0JP6DR74cthxcTHXopZggG4s77qguQATy0kQ4dvuy0gTfB+ WviY2RLvl0oqSsRm3gz8ru+ cmLPqEjYlY0jdNuo5d3W8T2xZydaYmUS6BoPqplCRzqLzo0WoAhWPdkB8b5WbOHP+aex0+6kTU/ Fo5YHar3biLZ8FtDWZ1bWdNEON0PAbnk4PZqoVQ5qrfQz158p9JSb+ G373Z0WDQBYZG5c5v0aL7Kp9gr84QG2pXpOlqd71r4n5N88EuVr3fFkgOAJNE1wAS65EHrjhOYV4iPa8 85fcyzHuOM7Jh8kHIfBi7o9IFkBnwFlmNy8eo0QthwmmFMrbjuR5M7ydp9w4F3ExQ9PvnwevoJ /Hw3ercjIP4uB+9Lk5Rklzg5Oe/zbBNvEgvkqOH6g95IK4zvGwyfcYp5HnPp2jgbJxeD7z49OYd2kYQH +7o1gbl8Sjg6DiLdjBeli6WOAM6AUQf5ceUmyWKwrcUhSp6D8N/ RCpr6YpIwycoUzOQkqdkJjylAxatasBCQS03GTZcQ9X4no9Reo3zqlgULcBpBw380MJewWkShN1eZKqK b0gTtqt +i76p4n6h2773pDuj3Kxmg17q9LwehWvgQaIZaa6B4c9biR9Hgzh6gCmIk7CqtHoG+ IeqmymjdilkmlShb99nwXtlaV6DM0kdVrxestYVnkblj9GieX5XsjYptje7wQ+LvFP/ NKsvxAuHuwP61u81auy8IK+G56cuTAsM926hLJofkbdcIPGN44IjF7Mg9/4Q1GlJlzmkNdo+ DDdGNvsgWUZf5qjUitoP8BJMV5mMXJ6VXBLEtAEofkD24ikxMT7pAihYxLfX+RttVfeJ2G/ RKtgOAwj7hHCfRHWWLobLoJpj3CqV6zj1f0KaYLTVmB4p8gKbVuuk5+y+TDGY/a/ LY2VLyR0HoecXm4Iy2D24fA5wA+ h727mi5NZDLHQL0c0g5yd31NDdsXAlFUyvzbF8r76YgfsOJSIEEembx8lpYx4bQykHoueS849F6rmkxV g7DI3DIyhzi99N4TAJfm8V1XB9GivNXKN5jRuoK4dWpvuRN40hIG8zMiMmmcYnX3P6uhuQl7mhwwwbRA 7f3i3keh21Q8yaBaE1z8tSOb /3eOOCgF7qnTuCWv+1lnQy4jG/4Pk7JiQuXRzfaIeurn8nHKqrTfrUQhf0MAk504ImYJ3L+ FwZbz7E3LbEFYBTFmw6+9zpGpbX85V8WBbmiRUDdQwCMgXUxKLcoiB9ux7Kcm1uLgDR+p+ 1EK1U5XPX19V382943aeIkgOT3BMnsSdqdB9ql3hHZDSEDLO/zyP/ CDXdLevVSXKweXL1t3GHl2Lelh5v+vaOtsu06jKN/xkrYD0Ic1/126gXI435O3N+ zKGtAD55caorCpLw5tfi3jXg/WpMqQeme/wqxrutC6RPWthoggs/z5988/ PW1Regw27g41vq1r9w1w5ptgnf7wJ0wPTGb5Ac7nGtu/ SH11PN42QC9ASqkPx3V8RUsyTCSjPQokCU306w2PUenjQl9+ TQawRM7uv8ZI6V78YS08zVws5lpGv7sb793jKh5mx3huV35IS054sbF/ 4Haf1yw89GFTL1b7Dp0GSWwy6VYxdE4E+uC8uplC44FcgIvUNGebzUL6z5EasK2nKUMV4zcHv219y+ EMdcOu51r4414k/2w5FHkL0QyyG8w/j9b74bJLaNfetDPxt5tch9JxPd1H8kjcHo8/ 334RtI6IUcy87tPDLxyv9+yWxKBLTCkJMDHKXd9Gje0AwqH7sabB1ck/pL17+dSPy61iBVO7X+ UWsZiG4sB0Uzbl1Ar502YPwrOELPeC0RaJo3YsV4Fr3bRKidCZHMmaMdJiG6AVVQ/ iDPSP0Gwc4rJCdEzvdrGMjwEJxSTdADhrUys24NL8+/fp0/L/j1JDuTZvr67/u/ Mkkt2gRFSJkJhXMLzzI6IwYSPBcOlIZm9HCSTDlfX+ FmYwvZMEEqObAUihJ3aklh81BbCtpOJVSEUTuRhxKe732WJmV/ zxyrMC1uwV4aClSppoqkhVcaIvwdIC5WRVOOhtEcmjWp36UnvlrLFh/1+AbAZVGx0mdl7af5x4+ j45Zpn7CIBM3LRooVRrmMSRNzvU3T1UjtYbNeobfBLse7/oR5DWYMq/ WmiBLZYBMqZBsicwdDOWyl0jpaXxCpMXxhBQURvmQsf7diffWybZ9YqzxknxVBsAIKr56B24+ KdBLHYBQyJjdJ04Mo5cMf19V7zari41q59eP10twofr+ ssnQUrEPZMZDFKWZKKvoqoQ5RtcMLQpRWGcuXwTsUMNyHEvMaTYXVGGAdTcYMUTR8aNcxeCk4HArIowk jY8KHFcWpgBOAQwUZVMxHDABC4NANu3FEtJ6U4tABV8M9IQ +XBG0TQZT6pvo9Knem8a0iJbICNZ41th/wUtdetrdbdFtcT6/sbOH93neyRpy+oC96LvSYytLVpHE2+ PDRhtVwM8JMQ7NkX5JxiSTElQtVlHw55zSN6g6AzqjSP2LVmZIVROhHY73oohZgDbQatR73S3wo2rDlx u7vI6 +j0dM5UMpA4eFsABQNiAapjtAbfNUaX2ss8hm6D9Gz5RSTajVKCdlVDjXgJ4CcJh+ FUSRSWCGQfzFPb2brIn03wt5eoL/rFV4dfhmwm69/7O3Wcz7/ FXVpJDRQQnVFRejZ0XcHZhGBnqrOyqkrQdFLZ7tZ4hpr/FnKzhDe72jwiI61kCx8G+ 8R7s8xNkGbrWFrqFbKTY+9htP2F4nTD0SdIAD6iw2XZj5eo1tBdi98+ lRhaViV9kUJvXWSMcVlLLOD5NxPLY1MBIciX0Au3h37v6i8enAEJWmswxq+ ooj0fsDfWGPTFMUopMej6YFgRzoMuCExZz996nZKuKcXHKFFH0JsVqgTRvQcRqkIcXlIJEriLF9lPOlF alZqEEoTZqTgwIzVQPIktJBSJC07SW00UnjHqq5ilRoGLzHSBayVo6VMBYTeJ +GImX98aqnUrfdno0SFmrdW628r0KYe/lGelq4kn20yR+ hamsc9rzykZljFeTV1HdGJyLkpYJ6uCM4emnSDVBFD3ATr5eM7R1ZAhhDMVQRRGPILYiVSUCCf7eGrQs YTa9iSMqsiS81AEvpZDpUYiOSyJWWJhuzHUS9tCKWeirmLUFn4GUPP73xGkcdBuQ0kw7gslOE36G /I7xft2Jug185nx1uFceBbj5dthXPBSSYL0iHij78a/WobWC2aW/lV8U7w/UL846mKK/peh+ P5igUmf8FAtpoF+a2JTeK3xvMcLfVvD8aDBZsd8sA1PdNLc8+k7lk5nD8BRwk0g8YQEFvT+ rk4G5wMIuXFV7w4bIk0DYQYjDHoeFUwJhIhSllg9m3HeP7/ kp7CHh3JeIEdeEVbaKsjGv55plofNy0hHdKaDp0cf71ccFhTsyjG5f9rDb8vf45H9f8rMd4wcu/m++ gw5ll4wM8Okpbj0G35gilsk5Hx4qZdXwRpMq4YDTokHzIaZiMR8or7KRNzXGu/ OPLHmCFUZAmlFUAxrOYBTyhdP7HWAPjcIoq+zb4OGg+ KmeXrAAEk6L1kATayK6uhRaQvAjZBHs3tnffBCgqag1s9dlIVCxxOF+2SM4J/+ y786PRnTSZgy6oZvppn56X7t5y3KwYTCvDexDYGnpMKIz410fS+hl1AGcdFGj62G6ttl5tA/ WtK0XqVKdEjFPpDRWTew0dwOm1bSs+ nhIEx4p8BU8Qd7vPBUbvlHFlHh3I98mosPnigut9eekyXtu0rNDehciuHVF5xbR7QAdN7aqskB/ pLeuGCEKBDNK2UaPTsgu+ 6AcXtjAliP1ND4jnheD82dmBQ9PRyM1m16Npb9SYqjhoBgCuPbG1HtukyYxqfzqvV1ZAPGsfs3FNBu35 W006YBqkui66 /DOAIssMBvtno4oVI0h3lvaxJ+V/I4hGVOzGmR5GYEfnw4gzYCiwfonThNPUEsqblehN4C6WDO/ vlglW9A0nD+oZGBbGRiBp3gTIi8SZzq3q2uboaNyyEwfRZAzCLDYoe88c+ KiTjXv6R1k2ym85YtdO2USnMrDtWix16tPpEGrdEZdNxpVbDPRrYay05+ M4hmMiJ7K3jEugApymmqzz8G7CtoGyBcvwAc1leg/ e0M27yWbjfAwGwuxOjdwDe0NIxyzs24cxp68275F3/M6aKOEgsKvEjZB2k0y3UJ+30rfb93N/FGxN3q+ x5Lpe3hiDMzBc1uhTkU74eV7kJcoXkmUpwUxJpDHwKQzPU0f7dDW8nou2/ p9TRzG4iq9BSLd2mB6O75AFoxuXsRV+kdHZUa4/y6V7HsSGXUyn9VhwdCqF+ g1bK9S0Tqr22Jwadzk6V0iUVtEZYWYYWTFx6xnDXT4yrZZAcPyzUrm+CH/INFmFb8o8w/A1sx0iyjV/ lBqxzXvho8v713/P/AGsPKtLOBBHJcxHULu/ p89iNTMdTHHL606jKsNx85hqcFs5ngsztknk4H8UkfvfQbJKfL4+ AHbraoQcqb2v0nKsTWRTbFvkXQgWPvAtq7hcbj/wTQ+Gn6vw5kX4AkMuUg7E9S3l3l8+Oz3zKuYZLW+ SQgvdwhkeLxbzPtG7Ut5Uxfbx01dN2yvTHyLU8E1bhI85moRJcrJJFgAxB7BilT1VHFXvKx51kfEB7wY AOsYDbWb2ymscgWAYMVceSL /sj4F/D5/hV+w76YrBWcucnXZpLmZ2H7BQJs5uXnQZuVzet/ w1adk3cb1sngm7jIAVzPGXtZeUGhRecqf4U9enK/k1W/ bQ6ptdjkaaTcZ3aaxAMLuFDFiphWHS6bPb89b1l+ EzmpTC1wyaLQDdNTSuTmFm2JNgSTJwtBeGkV1I8uUr90qmnT2C02kfXGgp1TQbuSOvAtYKgRRF6v79RZ U2zcada1My2jzVyxLn8z7dMOXYuZd54m7GnLlvfudw84nC22ll5jclucgoNjrTEzHzGuKKRN7 /Nho68FbDM3G0tdWXnccuzl1RxB5EafGnbByOOtwdaTWeCJrRZGvHkgOvWCFcEr2/+ LigfQdzpNRdWuMkapzQOPB2Xo6hfDjfiApoX068XdkKn1xNtEG4h3rFGv7UYr3kh8nx/ay5MaDz+ 4uysq7iD3Zk22CXONjvilXufyQUd1pQDX1pJPONasURjZQseisGuMTCgzC+pj9ixCZul+Vdb2Xy+ b67n0+Y1oIFiQNuDbgtjO6ufIK7l1ALvX+B+iaXa+ RZty6fjGHw8U2iQjB948Ggxze5YuPPLyVBW9X3dwDG0VZqXtiRZIHgpHLfyMQjUw4uGUMsKsHw8suvbj rluAWdwCo2MKM /wPmcGI6ozgKU/tscBCt3RIiIp+gYspuJzyEagWqKyF95ysQULs9nuyl+9uan4jNie/ aTn1FssSPJKSfrnKkKaCCNoGO1jYxj7O9y7EiO3WsqLdJAog38n50R6uN9ZxOzTN2+ G3W8Ge2d4c7QR8svuRIRujo02fhaeLb4hnxlkfF5Ja2U2bP8IdwDuuHTXm+ Za26NEvKsHwjLXjCLg6qfA6E6fNbr67/8GJhU1fw2zZ5KTsy1kcvOmo67d6Sqc9o+ 7oX7gMAOu5f21QGjE15SSWpTYzSyyK6dwH97pvJ6Me6w3s4Fs95cyGSQO9wXG+ mNh5QWuBnxY0XHFKxUsi1iDIwiaACBNxLgAg/b/KTdyTdg1gcwBctlZofiH0J/ A88Q7rsUujtaUH2HZdFPj2h5dhZ6wTXUVUZnTnqWggvwm6R1+3gCg1LW+sYgmYWn4QZzAA2hgGn/ 6hekK7Nf28oZiGEvxe57EDdrXQROn8bL60lGSUI4UsbynkVxibprPIjl/ OgQZ7nsKp1zy1piqp6Q9waro2b+8vQf8gwNvY0M0X9zpz8/HEqbPdWrg7f7205/smGxaad/ gOdfLNo5Pa7yw0mmAgjFu/bIp3k+ Im2z37mdr9QfLPpgLYZ4N64W4Qkux63nZdZpnnpsGa4yT96NoR858mhpaue7MX3ANn28yYV8lquOy25n NKuNb0 +6j0+EALNn3CDZwPfVqg4tM4c7EwGvQP3zBnaDCYo75SLbVO6Lh1Is46+MMvGtQu28y5DpAX8+ 1wywtRE4rcfpkxmnjKKhkvOoA0Mf7EbICy3rmgztSPBJwiJkyfujbLLV3poZBq8ZEa5oq8WmY6ornffZ 0j64RbQZCeJwdqJy /WWvThRrHBxTJYeGFa7JEoOz1d05z7I+ LHmeHfT4LFeEw724D2CUYzPSQOVH7diYwfmzaxtHsgQ1aoc4zmbON3VU2D1vLUGzWKgmg/ oRNpI5iCXgCky3h9EbKiqYvZykaRPhjfo5A17gUa79ednmpE5rvyNbL4XI1mopeoyUT43lfZwtb36OXX 76Mg2wUw8Nn5qPpOEjOkp1J8GgsZa5YJIwqZWPmo0dIk8iVTcCkfZQGzS +Y7S0R6oC+ BuDsx8dwd6659etFfD7y522r7EMvvvzBNDXa1wPWBrg9D6w9ZzurApEH8JaBm2nxVD0RSdWnLWuZ/ w6Zz8drS8rkdJprs2z3z1gQH6lUenrggCDiVjLk6EvKaKiEZxQNnv1xxMDfkz+GyjZJ6r5dFKetzZ/ A82IBL89d6bocc5gOcl2SzjOOozUq1JcA20AUar3LnhJInFctg67cwAGyf3nqpX6R9aDQYJAe+ kE74aJbLWxzzxU+7aOW1+0ZDqzf3kMPjexT5jJnDxDrwU5u+KPhTYQatq+ f0Zx2wl6m818lAC2fvwTfaRWyrM0wKnwC26aSc09ke+8a2n4c55jdmKUOUNwFaPoO+c1JTcRiwiP+ kpidstAwP66yPXC0KaLMcWzrPYiQsZ98vvG02JNDpAUq9IhIqlTJDDi3RoNp82kdrcy/ n73YaBYHLIv8OEucacii+B8r60y6cb3Tl98BxYykg/ u74GfiQMr16P5F0ILyX9xst2wr9PdfOREGEdnwXdtucuHnnSEmrSWP37s6t5W4Vamc3AM5iYx5FWOuMy 1lPOdzLB22NBXxhPqX2MbdjazxAKuQEcjsch0pvwQvZ3kj6TcIa6Tjx5rrwagfYb7sp /B//ASPyWqqtt7C2ZYXpn/iNe6njLIzCyHl6FmugQVrrOcyhYvk+vhXC15uE5XqFA05h+ b2cEOiAy7TLUtvjNUK0czmvE/ YZ2vMe4Nt871eEQyUgYbIpntVY5yaWl7q3RvL65kwepNq8Kun4d01lpiuXdKAIePGM+ 9kdDSZ29RIKCR8gTi6iahhv+HfcSMbftmuLCwnVq1xHkWOetX5GR0BnmrqVRhnwXocMjvXB+ durkdN5aDw9uockV5snKp8q66QX3q2v9K3ie2gas5sqskZ0YxrjCZgoxd3UbPHM66HIy3UkAZlb4dIJw KY73pPreZCw09nRWu9Cz4U7UmwaePw8WRfTMtJ7yKP31EY6FSXxVHVOz060z0DiaxIaupENQPQIbrTvL QiMFzbuFXEx2fEUgwN uS5R11oT6PDtFMbmhOzidxduMdlov4t997r5KYFcsi6euoqGkcasWbi2S3mUiS+0d/ eyoQrYrqxc3oqu5+trH5/g31JHp1WyXC/q2h2Ye61vz+QKiGRhhLXL2jbXsjAo6o2U6RlMnK9GLO/ T4UmtogI9p3ceBmRtEjlPHyVNLI8QoGgzjADmWShkVPXyzDqSZ0y5v6S9skXBvHr0p1JZxZqcyqGC4bG CLFzEGejg2Pk882GfzzivC8vvPmyBnA5zIv3 / s8kvjXsvzTbAuMwoyvCcfFGGIxveROqXXJ4Zxg6JW3xLJWbkilVr1hrYqGboi4zXtYbv95TC7S0a5kbR QDNbeIx7lZ4gbcNw2es +kHIjt3t7w5NpYz+ ipPvQI6ixeRMw27FN75AL1EP3lzQTt7gujJ6tuEgZaTAItT93g6HO5DfKBBlJaG5qmfp1LnQnVMvPYNM xKdY8I0hpbh7LvRUhVIRoyVrZaHEduX4csJ + gquhQxGydPWlF88jttt74R7yzHwp196jkezhzMkRV0qaGXwxeZf2wvKEkeCPsoi6aPeBqPPqAssucGnN lou5eBrPtbtVsORTwadzBgIfrfSx3H00JBP3dQwoiLQedPQyhP50ix1u6zy41 +9+B632aFrthB8uZEYPeN3hpvq1J94Q5X8qq1GO5F0e+ NEmylbvlvgCedY4Rm2nlX6wvHtA5HennST5kgsUzqOG6fKV0XYVDKXKnkj+FHjbTLjw/ tdudZa4d1znYn7kGzxgEfz+lUnY9uDctDenm6b5YTo0IjJ9NHwpqzNozk3m3Om+V/ aUI1JFueoBVmvvRskcn74yVbTaRWyy05bQfDUgfnC2kfui2sANRA2mwY2A08MsRuP+ pX7H0xn9KzWN2TOkvwDF5ZgOhzwYuOYfi4Th6aczYOEOswsXa9tCrhhUBRD2SbLjJbysWzPWYRyJDSly StpER9y1ZOVNofuW3hdh3yIrhPpOe8OZZSqsg2Ggb8Hg9R9XAoAjIq3oGd7qMEUR4uZfEhuX36kSI7pb fks7JY7bziMiKxKhZoUGOrwAi3C /raLiSguqTduokPbk4UBgmp1jqq6AYDpsX4d342siAr9+ 1z3DxLIvqCiNWrlds4oCRUAd2G8mF48j6ohCjw0li458a8QgQs6y9Hfca39ojkniykna8mo++ fBwwD1KuFKIhPR9p2I0lV+PwBMSRDqxE464UiohTUg+aGx2N9XD5Ld/1Eksv0uRKjYDAi+ qW8WIsa5boGZvNunX9wpQkm8zYSgvVgktX6bHWnRfl8G90P5IrPu5QY3sW8zDprneZTcYXo7ufs16qva aw342ekbn1vXJQ8H +Irz4d/Dnwx4+8bDw/8F4rPdK3b+DjtpSz2gacQUH8kp4pHaAmD6kTOl/Cefl4d7/AgVd2Opfm4vuK9Z +vLlFRruVtOh+ YKk93PuHeS5605Zbik6viKNgqVqItuj9BxRyw0rWI4PQTubSNVpwfwipX7UMaJNOJJL7ht0Q5k6w2v8c VOcf29feWGIs4lfx7qtn4ozypgYKb4XgZb90pOeTmjEOPP5PXzFlg11ngoDpXckEJc2SSlTJZ4H9tt7f s vlkqhIMxBTkrw24cOWJj62HWwNvuf3RZEyxM3BAQz4g0KZJiVxmyHdP5iQwzL6rA96H2q+ I8WdfncBUypYWCOe1vUqEt/WFXFkHY08t2uokITD2x0UzhfCtr+pqUqvcAm93EB+7aDV7zVXYQayezC/ vqlwjziPhWf1j4bkC3fJ85Yvf+jZ7zsyI168xWatVRaT3pJPDA/s6tIlcEOpN9FLRa+LraG/1cr9w3h+ U1XkiqmbsZNuug4LehSogo8t4corE27BIj6RCkhegXZ3r3v3tcROR960bu1ibiOXiOyPBFGAV9tH0uxJ gmwfJNoJbyZMIDzeb7S6GLkjDyeCxhK6oPrZqYW + fy7pZypYQfMb2YuwdDi20RmsxUJreUGLrCRQOIUkKrRHgINU5VbPMBMBfvl9w1E0aZJwtrlcaO3wBbPw oSMhsUMw21HJHid3cxPwkAkl9ptXWdq +N9M+UZqnJNJtlGyP2r0V0Kz+Xqwodbf2mvMR6z5WqkYYoKmDbB8zS7OgvVoWupGxnBiT/id4A+B+ pap4h+J48umtX1HePzDsQ9+I+ y15lWztF4azLkO1grPbBpywA6FmeqP3S1oSU0rlStpaujjrfL2aS4x5qzorYkhKThqiaRfdEsmGUd92t XBHANYAnkTP6FCBVzhdbPTSYqZRvot2AQr8viI4scVUoNNujJgfdJeKfhE1ekKxpGxl8zE9WXDV9Wmc2 1Oc17gX /YwJ8eS6pVEsu9+srtW2rQASURMME1vPpvMz4XsR7Yss5ffV2mnSlVrX+PvxQ+YKwk3o06/ bAiszYd71XWy5eYpV7co226FuIsCWcM6MAMIclKXP8tHy0cJ4nyot6a7Gz2KezLUPCrcpDoHgoGT5gMD gOLsNcnfQqQauKPVuu2GWl87ChOXgypVUJKEgqR4AjPiqXlhMDsiEpJLB4r9spYTfamtE6TQqLi9uzw1 0f1qWOm5gxNVjBdS1xwOzsEBQaZOkZfPDJuq5rE EOUPJJkMqy5zkwZi9z2oe2Q73vn8odFc40KyHsvkwLvnoSs0heIwh6uwrC/LCKevLCMYxbva+px+ d4VEum0NwGyladFNJHToXXXjEPdDURmAAWlpGSSue1Z0/ kuOGrRl1sNrOU3saVgt4ghpd11aKNVieJ92qnZQKfwGpYwXegD6Yh5iKK7jQEOvQ3bxbjz7oQbaQXfxA jn0 / eGdAERSWkATvPvsGCJwyhxWvsbaSlucb6ovz01zf3ytWViHOVQwr5sfK7tyQ4bGr4RYd7EJMRZH4nbcX G0ERrZ39sPrlFFQikV9892hmbA4l6oa21FEBnU6EnTn4s0vF08yrDA2MxLg5jhizTd7aK2FAYTKdO85u QHwyqeT7tWMwCtVqveKZy2hAQcrbJ4Vwdo0 XDBih9zzefdbQ9He6F+CpdPJOza3yuzMLivhas82r/ZMM/ dlBqhDRlifOAjEE4tN08MYphDQtEIauhfltukfqCoFl/ vc8tMFTe3w7CuolRS5c3l1K8h5HKjGLx13U6JczWmtqhXwID2pTDrTubsomacnyOBzWAs4nf+ OIdoaiFTy91Sb1C0jByU6gb2a4l8kW8kr36ouewoLfkxpbkAkCF741Qsoh0HhumBdOjlidUEMQVc5r3e 9HI0sU3gEyXYt3l1SSstDybrUKx7u2wz80f18492Q8gqMZkRJeivv +iZIgxTJHDUdOohYicpckbmqc2JpSaNYZQK8QreZ4T/ QUdavuw9kAmQ1IcDWUt9AUISLUXtos3IU4vVlJl1jz+GmqvTH0oT04+3YNJlBaR/ Ru6m0mSu5D2SdLgHpEqKyvsj0V2SWAE4fdhzQQdHacgS5J4LQ6j8HsV9yZjTzWRa2XTY7t8tMGnFttpJ bfq0fm62rc5OND4wL3bGgNajYOyezqq +0xJ8VtVqLiYi5Y3BpW1jnE4zy+adLIRsYcMCbvkiY2SmsE6oMez/1+g8rXuq014BeS3unOz7v+ ObtO2cYlEm7Nmw4ia2zud6dJX/TVJmOWBWmzCwpADk2qr/ lr08Oyr3ffYLKeRuJOTePrBkP2Moox84MbIrr9JaCZROH8tqPvx2l4IqZyy5k87YuS7O+ Cn3t7D9l4GJj5UTG0V5ra+2WceW1jg+MhIWvJviHh2aBKfA+33/Ni4q4oAfxzeGs5kdPsoS+e+ DVsW393+SYmmszDDbs3Ky3yuat1l9DIgJpOfT5oj/+ NdN8Z7XbdO95G08z0VVpUdgsa8eY4lDy2Iy6MyWs8F9C/Q28ip0m+ f7wpMpBrWw4HrktvxOxwqu4kHqcTkK1JwHi8r1+73OIYFAZx1N94g1GpQd4hhL55rCEMon6adQ853v1W /SIMMK1N7/aZ4fIVATQnoF0D/HATayzxkj7B9mGPv9Pgf74T+32c/ laF3xC5K7Zgy0uu2Qi1ztT5hSk36mQR6I2ruyx2sLiF6cUGIumc72TcLG3kO+d4bL5CDObX+ QMd4GvoTqulfrQpFyNviutU02TiGyXQ85ec9uP+uX3RvcNhMLclG/ F1hlJlo7tcEy2EKfziJ2zs8fKxG4SWBspRg3sDwW0/Q0h1Thnec0oGugFrGUsWxnCsyXz9Fx+ VwxR0ffIQZnIsk1yc11J6Nfszwa6fH3fQZ9LuW5EdZW7wI8Qe36a6dPqs0zSlcOp6U8x73qQ1pKjxl4M LHHH +vms+Efu48i1Yi5OlF3C+8T+TA6Wn4KjgY5W14PpCfid9FlbCTNy2h1J3o9uRwPLS4iI0v28WYpi+ aVAHbI650v7cgV/+Dwex5xlF9R5PYCV9Wh0o+CvC3dHkQ0d33JkroqUv9CQVxisRg8A/afh2/vNY0t/ UcL8io79VsGXaZ0mFaQEYaO4nqsw1vsHmyaPYq8ggm7aze3ez2OB5Jn3YpQBtzWQO9tjzEuzHk4hqBIw g9KN6rb8vxc9XosbV1AuEgy9X98fpLx2qRdwANb +F/OwhUcAMi0Dh5iUB570k7Br1OvsgmA9eadLLO7ZG4RH6AxC0aMdJBE3wzSgSttZxoKi/ cukhBDWxjV8E9WFUn7EHr16XKUNwVA8j0SfZ5kR/ pTUrwzDmmi4R5I1bEGjVQxlgSl3xXxw3xx0JwGJzb8a8EpMVikPKB6xE1T0u4J/ X4MwE3MIpyMp4sF3dZi4NfKPCBJnfdagYWtKzAnrI3NEhnXIm9w6socRxvDAUfEnNzKaEo0Osnlz1r+ E0+u9zk9kJr5ddSihT8Ez0y7/Oy9hY7bM2+L3JvmrbgQO4Lz6jrB9/Z69n98drqY/ FIc4iv0YxsH8ubPgSbJobQl19goOuqG8z2940a9AV+ cqhafqi80B2HpFjZ1Xj7UeMQ65CcNljO9CsxN45o2HXmrChg5TcOvf15DqpyZ1P/BdxVs1q/wT/b3/ IFhqhSPsULdwBj3qz8mVjzrfpH9+60BTjsIwIx9Sbh0qnVOe8eupN0FPspdq0yWcS3dfq4j/ EbHRRWDnhWr5jBPtpFOLu19XA8Y7FI4deZ48l8tkoG3wI7ZlespW89aFAhpGAoOA3KjR9gMmz5Ga0tcR m58m80JOwYYc087 /G9XebsADqi7gDiKf7+6CV7qA8ugA3sdhQnmuwtJE89ltWkpfimGO4FX519w3A/ HtTlB9UbJ2fpL3vItCMsYv0B5VbzNtJjZ4/HpJttgfpdKKgNNe2fyFQfwKak9uhwrDOulpgQhD/ a8YlPW8jN2a6Klrff5ZM7lgosxiNWZue1WT45VphhTU0SkNOogRiJymT6yF7KsnJaxfBdIfVsKsMfAy0 hQqGYl2SqkmL894h9TtcUeM +X2czpKeESbV3zp3UnrW3xdfrLqmKFV2vrJFPukBCxnpDxOh1RdnmWPOQcwQ3tHueWi8i35/ 7IfKfL80qzF7amK6T5Qq7QSpQOWTMupUwJKyPdmzH8WUcgOhYkpDmscNzUhO+HLL4K/Enx/4o8Pw+ EUUm4x5+H+n0SyBrxsXjTnIose2QO6Se9c6v1nU4QPUrw78Dz3v7h6O4I62RR4KcoquzOac0T6k00+ Auk6nq/ apMSxB5ms7GZFo19j7C7DPbKytDuf2rlalN6kCCKpot6VglTfr7IlqFRuOir6koaFBA6d5TGYL7tdsNm E + tfTE21O5QF2GrHbXska8Os3C7rt0XDF1TXjNMLRYBxQlZdhoyT4SBRGqbWo97nXrpFPx025Pgg8Ozca0 v8q5Db0 /UjhJFTnqZqfohZvQf809iblhwUqrbMxy3PF7wJViMHKclloTE5TOJOfqNK9Zcj6M7yt8SZOkmtVvwy/ wvr/h/Ddxn0Xi7aJV8FCwAyxJVgmXtTSEckO6hG0H0X59Fd2DK3EyL4x1lCM9pw4nvF5drD/iP+zJ4n+ APjHVtdt/ ejCptJzl7x83NvTOgwuWJjYtVeQxQ5Fgvw6oleXAzLsD3J7jumd5f6wRbJs3czx4g7eAXkEv2k60Wfam n74e9j7wzIIypKM8k4Um +X5bu7dlmQi1LzLe60qMYsAyhgEj1eK1KEQyAepih0K1pwHoVqzFThflhJC7SfHVAVbl0dt0/ Mp8Iz2ZjqcqgMdx1VcPgwyYOJ5CmeIwoAaBHqTvFc2loO64IAkUc6fUbHGhkMv3iwZT2rgWkuKLcj5h7 F /Zk1urd4ccbMnDs7hmyeQaetfvhu4ntw13KXD8hl7cCCN+ VpjlbLmfV6HyinPdH7JunB3T8So6z1Y1CghqC4A5Yv2hB1OhO+ 30NhZrCyeSrwk7cgHwPYTQ7qhblW4YjKy0lkxU0u2eiTGR80O3/l1p/ eE03868rd8V2F1IkGrEqzE1e7qJ4gcsG1S+YpFbmgy1ranxHwV+ 1RP8zu4JF2b40zGSeujEqH5Ry6U7rIlXdwFjio2ipI9A/Sz6lZ1A13/ Gj73D0yvBIYe7u5CgjlyxIBs1daDmP6F41XSwBi027ilsIB06KKX7M1rBXpcYvEgX2nUFidGmGogYWmk GR5orD0oy2myMlTzQ1quVqAd7Tl /GzbrRwtKdCphsRSjeM+DsD8W4g2VaczVIp1qSvnb7KSjVxNf6ktepwlbwM7jqyQf7fgeM8/ yMIp5vclB5uT5p5ZFRHf8W2YOAlV8jVbf1THPZrR1iMVA3x71H87eMYCv3xWsHpkxAOD0EB1qFsR0SSa JzRe6vHFfHr1pZ +r14SqaqIymgUCp1m+GZy7mySPFe/ LI11Kbx3yMpwbDH2Z9hrZ805tjhkT8qSDv87U2nsRo77tAC4oZ7zxrAN2/UYxmzmQjzCxo87vi/wF+ KXfJcc7Ht2j6kkaKo+FnFzhYbO7xYi70vdskq+MN14THtRpaiYbOD1o92TLhbk6cjOZpLA6fm+ aEx6Qp5GcD6u+36J0wt2h8P2J7XB+r0b+ GuuWSKmtYLrtTishm1TswCMvrOyBCOTjkRpSihy95HOvlBpeCd7H176I+Gkdwq1fIs/ ZcIht630OCfg0y2YFM1aaaAEpnVPkHHzZjc1aI1rRMky4w6EttYWWQhPqwBXld3q1FdQTiR7dynU/ JrzZ6y3aW7l5c5XyvRufXv9fMMCl79pbpuqNsuLewtOU3GPvyoUg9ax/R7oh7RZi1e+YBJ6luD3P7I/ hI7+21X3GppUPFX4RQ/AVr7t8dVg59l7xFtI6I//bSQOq7z5k5dIRvC5P33Q7mzHiVnfYdVlcV5kl2I+ E/YgaNQmg8TjF/ v3nXdAj1qr2x0Bzibk0vWf0yZ1f0UG3lH8QrhUohmWz4rRydWGf6k4v1BEpgvZrqlaRZ/ GBNfTdoquGMW3bTtFvkq/kKsuzoEyM8fy3A/ 1C3niFAlHOGA5ngxqZVXRAGfRgBYYhKfwywZl7Ovg74N8safgk6A/ STcAjwifsnudCdzeU64cmw4SMMAh0RCIQUqYol2200vLt9HrUqkoWIvAmzclEKJaW6K0H+ JbNtOdb37tFbUZkXrD7EW8vpfywesal6iLKv3T64v9+pCnIcs5clX9xxEaFBOvY/lT206n+KdRu/ JCvqlqp6u+UNBZ0u57AAUpzfrbffaf268T+D0e14IUy4g4Zwppo1nEbR7w1uMbERfMoW6qTr2q/EP4o+ APE/g0AwZHnH8jK2prh67r64mC9Z8N59VBxqsjy8u9Rd9W2XaqzF/ YfvTpkpjUtwjna3yRM8zNNIpE90knhoTOe4K3u7eiT2Zl71zouWf981JjpmLOv1kF47pcFxCF08nIeI0 x3Wpu5j0qsLkE /o/0XtShSXLVLrxzQaSrtlIiU8CbjyaKJgN2OZaD+ JG0dUomQL8zQVYWbrMBAjPYiFO9c0CiJZnASLkl74m7gwF5uxC4dWIZU0jbcbknJxhRISYEjvNfXUuhJ IrDdQ8uIS +Ofx+2yqm7wmSJ5p+ BneBXRw5SI1rm91S6HCasHLrsNpic6ysU093chlJ5yYnw0OWfxkF37tyFMmw7hlqNHbSO7cFOpwMqSV1 4j +IEF1DdGbQwNkv+Gyo2FBkMvaXbhUBU6vU0QvcqjpdW6J1NaLi8tJ3gK7+g8Ei2Z18wEsIYm+ pcvQTIy1Inf25qvyC/ai5uyWF2Gj3rng/ALSwuKpxc+enS+rrnijfjulHErgN8NObHUttk7y8f1wSwO/ Wn8026eu5sB3wMVu7sbMsLswHPgyAkhU9jvSdsTBzMPslzN1qTRgeRB+cDzz9QHbnhOC8OY/ HIp4c9T6wWZr1J6X47xCSIqC6OkVxOVWwRElJ9aRa8ZF5wqK0rkcHJ3bBbwUmR4j6qtfW3j2mDZEccpN WmheHfE +fQDdDKqcp8z8QrtyMmFi22u30oMvvOrpqrTtF9u2KpvAuy4DBuvDTNVM8vF8A+GM/iyyV/iPYS+ WUHzQ5jFwgw38Ec7AxUvtweTh5JrRjAaRluSEWWu0EOOWeKBHCiyAmW8SKMSg6d0p+ r6umBjks7701d2kR0VFVj6a+6bGjkuBpFJliArXxjd2sEiY20qAXYoDnY8t7anHm9/i/4Q+ I7PHPqPsVcZtvU40B5L7x/hrbwGjelJMO30m5vRr2mifjLMANFP++NoKHLQIS6aTZpAnjBijeis/ 5Z3Y03gjE4weql+aae/ ud6aSoUHHGHivH39JrBauYPQCKn6TIA8w4wG2L1tCNAN6W0g4P0NjJx9wOOX09/ yIjcyAn4hYnqgteVWzhXKsInBQr7l7b8MdyBA3mjY9itryDleVBy4szZ/H3i/ SG7NHzkr1xGr9kW6EC8Btb60qG27kn6RBx7gHC3eM9pXYRbhMj4mwUgUvG4Xfx70HSHHC18v+ 6h2lcy2352nQa2ox1TuUsrBMUacS4uSlkewQrPa5xWbYedg52D7JyogyhnJ7NkqG69Ggo+Kl1yC/ rq6mVpFlSW3R289QvAGWJiicpn3ruf5hkSCbufhnqCb8b1OAjBlYrP204/Sr2+/7KSPfxV1dpJ+ kTIu6buD55s7X1ItE1juDA5Q26mR6xtnx0iJt58A3DaeolvH47f+LuN3yoxBxbmwD2ZUtKewqmo+ y4h18g83aj2lNpFAarS5C28wXmkSBviWijVyIlPXOIK4thX9y9UXa72U7cbV8OkiPlWkPDpRTfkveNIv 1SXTri / qzktkhjeQRm8GbNYVSSZjLKvunOqmAjQj4X49V0lqR9EQv1CP7kWSuvhuzdWB45ChV48bCtcUyJzkf08 krBfzC6R0SwD /UAiyTuJto82cZ0p6L8JjO7hHnm00E09z0tX3gvptOfM6xtFigbzg5lD3ylVAxvsg2zT4V+ cveJ60ephLEvkovRjR1qqAA2HAkuf9smhj3wmtDbkciRli9OxN3vDebXuWPEBVMttFyETSPBkevR/ Llp0Y1U0bxK4QdvY3h6oiz9l49N0zJq8mMW8xpfFlTAweH1mCP6sMPrbhXtPDF42FUNnjEUEWr+ DKUDhTFHOV8OBtM38pHSdzFgj8lGMumTTgBOeCnDTUFoh7N+ L0QFkBrawfTs6pUuNM5CUyo9E7xmkqC4VV5s0gd3jfAmb9hQwINjDrUFkVaaHYLPXOE9ngBOPrjKwPFX 24DL9K7 / eDqWw2mA6sHavckgUwnprtESJrCQcPg7DXYaxdFPVwzGreQjwGRUDctlmPXJKqt6fAlpTjfGOpKhZ1cf 3vavlY4DEfqKEhCt /pJd2uzqUgNIkk02bUrN01Naqbzkhbjq+WfB/fO4zkQgmvilo+ DtPnX9gpEOJiqE138CwVZODBX6RtOZ5slxwLFXxJ9TnW2TfOt44xBdlMO5R3N/KXVoa6bXzMeriQr7+ hx/LqjdcoKFu3XyeXBFf4eEnAtnyo7HUzDamES02DKVWa/L3SmTAtT2vjAsOZ0RercDShvs4a46+Vnr+ X81tGe2DMoSaRkMTE6mPb0OdtEw951ERzyu9wAnkwY1C+XY3TWmM9Y/DrxebuXwnpOoxrNcXFrHrlhGt / FKNXujyfVoKxcfG4LpqC4oJlXTqzaAxXSvBwoeBia5rp2T3pnEg8T6c3v9qBOphmrTaZSrpXaRn4d9VB wxuFcokTUbpbhedR0GgQ73GWwA1jx1FFodtr +0lml5yWrrBkIFsV8bYBA2iLfmUpa30dZ5qDIrYjWsCnOW4gKafQzyGz0jJAZPr+lXt0ZNtr+ FbsMRjmXyUlJps7Zmy22z1a02OVsJd1BsmGI3ZsOccEQcfOdfd3hkRdtvvIwVMiUwgBYCOgws2rts3vc 0ZyuE25 /W6m6bebuOmqWhkkV+m44jKqBZXmmrTAIqYy8oGzjqwHn4gIKPNmtQ0e+ ZV73O6vBNp8JsgYAeHbf9aNdloSFDh8JAuKRxwdBxhS4kuc2D7MBUnQGxtpkia6Zx/Z0+ BXrBbdctnLdduLlhCJPyW1icOhZNEp3nkUc/bAi6wSICEoAJQ06ZpLBMU2bZsB+ mwdcN9z9CpxPlfBztvz4z20EJbn7GHhmmw7mTbn2Md3hes5y0Qji67v386sd80nE2duDSvq813X/ bDIXTgHdKm67p6m0kqVgem9Zc3SBDEc6B52z+cjnk9M+g+i2WT4w6+la6p/ih92bio+B/ YQzBhtfNe3W6+e+zF4Z3Kh13MOXsB/Yd/ ADEzoU3n1j84tOXXPM9BQIMGZYZJy61DaFLURg9NVbVdof7MFwSwV9J7hJLxux6n4Cld51594VG6kn26 5rfb1c1lMEnMJUC22pfrSU +7+ jwJQVzhHFrQU1MSjsMnu4UqKJCG1WrvczBUKZcUemoRRp8yk67cmpC3qxO1J3QpFjjfq7GaR24eoOt+ pVRDAI6RhUY99ikhw5WUW29Mndo46fq2/4ZipmGi1sg+O+cZ4/LA/s9eaRyjubr104R18utz0Vt08+/ TA5OMd/z/LqkzkShaWVBm32D6srgfJuwvfZrL569HPMZeP+X/ QdVVTur9sAxwn93temc4FlIeUJDCHA42X87TyuqaZlsBna5VLJNXRqS1oCH9+aU8aDZEQx7B7W9XBxH/ jvFQiFw0v11crgBzeFixYquMTKbnhiv968B7eakn5J29+t7N7/gvxfyIcckDI+ 4JUvQuzV25tv57o2WOVYes7PzWJPTxxL8kyUULf5FNyoNCePlvv0VBaMG4OC0Vgahc9OSVGvGAdJJXtt nzZdy8htXJAW9LvnXKJEN89Vji0910oYpfe66 +/Yzn4MKd/Z676g8018fwHAeWjOY3OPnzrc7EPsl5X+ BuDXgyq6PCDTt8bWQYYYJQr9MHoxY0E9ZsJXPAhAFUzCWwy6IE8724azLlIwc4eYC+ CmxUoBgAPngBDvfEHiQ8hHkfoeGyQUQ3fy8di7jIDryxaTKVh/w1/S5g7QLl5xVQtWXhBlWB+ RrnupFuwZbdZbCBekkNskVb3tEqT3y8xZFeGbjslRgHCBflSwG0ZdkXZnkpARlkqNs1PmBE+ A4kcbf6hfhhczWYHkUb2r9vwS6Ee0mDWjL8UH9Q07K4n1sszXkKvHjinfariPPcMMhFThcd/djejgs+ U2+kNX3b7wFGo9e5c6cwyBfb3+b63/perLWv+ ZPChOp2kLSHt5ml3nbPQDLvufvm6aew4KHht2FH2uLvMqjH0jcwG073fMIrEzoV8FraP0qKTONtkGAcn dKIbs6oiDCZvRXtHMFc4QiGFW2lEANZlGum +dnKHH+v2iYHIz3HyPMevEXQK1cuooRW3Rf8RmFRE66qMLMwYPZzHuOEAAxh2V8/wCX+TjHhff2x/ NX9d+l9+ rXi0bPO4TdnNoQs29aBmVBVtCAatnCFAuzZQBjxpuEYZYXdPOxgzBUaGNzU08UZoqsFTBVWbZaEH4mak niaFHUs2yfugOd83mbIFP4eHVnPmEmCXSpKedYKf5gYwjDVMsVHNG6u7vxDSFWZtpusxFyBYTizSvPOT gYF5VxwOGWMtNC4N41YVbkzj8t4m6pqfuo Q897wPw/tytqBIlWtawBL1cxGb+GoBPJGJMzKRNwLJYQC6usLFKwgQhTc+SVnLFhl/ KEHBEAivHGwodCyfGxEdUtnf0xHX1QdIlrjFGgULJ9hntKSgxfWZQG6zk28XMWL3CJWikVSAbBpxVTEU f9EcxKVZGBLBItj56iPaUOkoawUbac7c28X3YdhS7oii + b8C4YxPqUWVGLAAAYQBmhVpzypdnTXZGrnYtT8dzGtHvLYMYo3ERDyLjlwF3tejj3Om5cFIPSCAsKSmn WJiYEY27Yb3yWg0BQvLAZFLYuoTAxnKQcR5e5nHRZ7rmKYpmKRURdEpYFVSnZ7ONjGFglnm55Srqjyx8 M7Xon2Rn /u0u3p+u8VN1bbrb0TizK5YHJPJ7ncIfeWDfyrvK9Fbth7vturidwIImKNKztyBkL0+ AKIlb1b4ZwOl8ABQQFwFmoFuWhudHqrOHw10TqaKBIXOtnRQaNYC467WbLOn1YpmOMq13M0htY/ YvyBFb2PSTsH6KFsFY2BzftS+evDKfwv0vPZTdZRyQR8G6cA1UfhMTu4wqSbL9IM8mDw8b4GdcO07/ i3p93+dj4F/au+Tcx6VBmRCwN/Bl9Dc+JZe6jp0wmnTDmdn6j7KIVNUeNukWZP+zs2h/ nREIfY6w7ET5lLvJ4DdiE+t/2UvD1+d4kiShgpT0Vyb0AP8PHFaJiTR6SICGSQrGDAcLarrC8/wCd3w/ 1R6nq7rioA7URpB5dTNyFs1egf64svG3SPgUdbDkr7U7Ey33SmSV3AmKWnbA+ af7Ifj51rTtY4Xo0UI7Mf+WV5c9OwAABAtThUNMHuQYuZWT/JVBSr1m2hm22dOl1slhqa4skNmciYZOD / sj1751J5Nlmtjn3brHaHfgSqEThsQHprvlg0clKmreyg8XgXavXhdGmrBC4kjVllq2Am1hxL48bggy4r fhKm7qIHNzbIYGnzP5TvOOI +4yUsnhuTmmayBGnfdUV6M/PI/R7irq2chw4hN61Bt5xvjyIV+KnFlDTXV64hjbwyl8sjkZo/ TkRYIUSoObKeHC6hQes3oi94c5hNNu7REQC2uYjyz6cGhvKwPRGqamjDMgoKVTJzp0PMqCFc0f/ XZ85gzbepC78f3vFgkCm9QvUaxl1MwOThqitl2vrfvaQ2qWabry9OEsW/ Ijhox2VfhgQwnMLwcyJC3g0vesNcoI/ HBAKC3XbjbbGEnk7Ef7sLb9HYQIxBwCJyg0hK5h70mj5dFZyFlSzvUZBJ1mvtu3i88geTPCfKQZOuH7w 7ir1y1kufIS3GH8Faarg +923ofJ5biaGmQy2nTCGmK9z6CT8MWda0C7ltQrruiYc11Qi65VO6TMGQOiQqnsFbNbfQPOIev++J/ yd5i6dajTzZSnU6srkjiixkKi4bquA4Kw5nboWWrCdWJdJ7byBWEjvKNltOlsGh97mH1iojnhyxaU1+ 4znqc4IFdhs22smcAMijn01Bn2zmrDA7P1qzHwHlpt1VS7nWb0o2U8S6669pj9q85h9HWfaEcEmK332X jAiL24AMUCN0v +JEFLQ0shjKqHya0ie/afmU9q1RWeuvQ4C5apq6Krvqv982HZgnvPVj1uzl+jtBgKuHQMld9tDnLiRmC +z4shoOnr4Kb9h/iK8tk4JKMwK/sWoePQG1l5F+ Gk83Vp2Ozg5N2zez4EE2UBpoPz3bgghDJtYAHGXV3g/AIII/Ja4bEo80Fvk2t8ljpdjoH+ O7nc4JWOf0uuJrP/gPCDfsux0I9BO/QanmAsp4GGoLc0Itf7DTwWj+ AOPn1Gt3X14AH1IAKCqelz65NRJj+p+oKBwWtoDNZeZhHnSBPRYmLUpDQXg0eWZzgECTF7+ M1gKAyju4w+FBsj5iamLNCzlSof9+5h5ls0sZloNQTCy68sJ0wPvXhdZhqZZIVGNAbja1kKYG5AK+ ck4XhrmNa+Q1tEbSDmLX0mCWcmLjnSurYcO9KsLMEMXOwP+ h0BcDWWU1KNe8gUFMR3zYbMyNML1tcxdeF7hQNP7yrquKiufu8cwxAPdFxoOaQNrlb+ 4B2Yc4g9AnIuZh6sCXWDPoNyoqj7dYMNF6NOCrFHEmTdC9xiC4klx0d6/prdhPcodvi7u0HBiC+9lot+ iPw2+GioIO3MEjJ19uyyRTQgnC2Lwswb2x8k45O6MupkvuzG6pOqMtcgfR1JaXJ+f/ hZbSuxubm2iXD0r/sBY0VJNNSd1ls+3yS5Sqbg3c6hytcvrj4svVrQ5+t4iyxELYilDjq+i/ xLm8y4OThdLK2I4pksK1lpx8qLu9j+2hqsQuvUanuATwlqhiFUD6lNqTDc1/eA/ DRy3ZEbIgnn0PULljRBPTwmDl9qU0h70bqt0bvL5ezvZaLJ6fF05rMBBjzCL8uIBPghGSyQ7MpV5viqa 2BbXKM09 /dGVk5JI3OdpBSk/AGfdSvfTRXu+1lUgh2TwEnabqsv+J/ Oicg1tjcOHvt4q60vKfEVU0b73LOPynfrOGGJNlWjwR9ukmPkacP6avm494M2y43PUmbuZOFFo6fZYn2 kks0 + z4ZDVIhAga0GAB8q0wfXeA3xTS7tyvTCuYVtfXHpkBSW3JM2Hra8sy3O80RsUoYu6gDC3BETfYQ94ni4 CtoJCXg1tmvMWC87mgEKAZmq5Lt5SdWGS6oXyp8uQJRAyQEPo +Xxn1wJ6s3dt67j8/OFikWZcDnAyHs8SPjGtqPiFp7b0d7ZYXl5B9ghw+ jYhikOiodjKylopHTEYbaOg46i99xUJQqCVD+9/ Fm58j132QTzivSwWiD4KpxgKb3fxnFP8jhm2yOKlgKjv9dp198fRzf9UBhrK2P1oz97VipwMlLRw5Q4M eplMRxsJZOagiZqAmvJRhYGqBq8z9XlGBAiGFisY6BNMj4tdBpcyMvCa +FUVbCM4DnKho7l6x82fE8L9REAJnv26BnTdBxH1Izk/1DpnYoFhJESu89riSNH+ 6mDcwoYPso86jEEcIAZOPFsLIQCmUmGfq6Zpy9Tq45aoUXGAWoRGOBDPQZQJuLI48QXw5b9ym1p2hrv2 hkp33Yeq0qQpIweggxjskbdV0 /aznWY7/ JfEOQ8LWLE3u82SLNT4g10UHFPUaKo1GgjtH4lhvX5xliRtrzEIIFist3TEIwMuVbEblqTd8WKZ+ BBNeEq1J5UgU88nQ+QNje/ 5e1FuVnx8jZ3PXiKVmH0qGNoECQDlQebMkIN9lUKH8T9quKb4xgO5pMatUJW/XT4VC+2eA/ OxpuOd6o3f8tV/D8ibuYj1LtC7OSgyy0To8E6ucDp69AU2KxO7zxmFFUz8kOGswF6U19nFmpWT3/ bL4d8K+AciBWnV8oDVZQv4WhfmSG1aslxi4yVNTpkX2zAoNNcj3+ aYJiltxvxztqrVtjNIN3H6UZf2H5OLP074GgMGtfwD43FE9KT62m50+eOI+PjnMxoUDDRrAp55qKn/ scpg69kXVvJgZ6a11pBuIvfkq39z1PTa9MT7JF2kiqozhzJKr5pWja/kstJ6LUtMMQs5IaEvudxmM/ hj336X1xl7e7qz+E/ Hmw1XxS6zn8TmoaX0O8jbjbS38VVkSWW3nJ32i26ZpjDx8xtBvefS0Hkk8jS6ojJHNHu17fx/ MIw4ieqv+L9ANWJrhx687u/ 2yQB5lRpByp787gGVFZ7iQsiddCZqCDxraHqDMOp66znmtCPUHFtJ3upxe/SyOdA7kh9ocPpD+ z31wgMxhr8y8M4wtHW9nPr0mveRD10tWU8/zzqna3D23hhbChn54fEo7hMarDdIT3j1YsZQD6z+ TpD9LRx+RIG5HxET9vG3e/bK08d65cjD1djbSHhixBpzixt17IHpYOxuu3lm93hsVDzuSgnpf+o/Z+ vnQeJa9UGupBOXOh5ZGfm6D7n+ jpeICIvGuTxBzzsJbRPibRlI39YXhQp9bjtx8lj0DgNxyh5LwDhsxb7T6Fu6hfXK3SA1l8f+ TODP51eVWt+1gDNs3iUh1DwjV81O47CS49bk7mn6psUw/ kOASvlle7582U9AAlaKdwuPCD4d5TNKNlEt6caoL/ceAIJnU2eM5ggQKoglF/q54JLRX+Z1R06sYhUhz +h8j6jZNbN6p75tPKYyvNHrZxOFPcPlOqqUXhZLUvJoVKIGgq96fr4WWMjx+ GdPtplWbyV30m6RCpj4jrzY26VpmO9sP5rhdUphiZhJV6hKQ/49RX5XHqhdMMh1hvLpIn2cbZS+ sV2zm9qkxbuSkAsgZwpE7AvntHTrBOfEv1zQrrSa191eOwyYKF7OeM9ih6LOXZ9s1NhWrae9OP1u638y T0Vnkz2cyhMM32bajavHJ8Xke3wsgYwn4CSPRqNJj /dyHY4uxlAa8Pz5VvwaZfhGNLt9sxpsH7E1ySPBpJYHS1MobzMi8kq9fcp2Rxir0M1R+ UHkfejtjaC6Yst3GLUozl51PigWb7RUkKd95ktralFZ2cEN7h0aBhPB0PcqnHLHF5p3j0FVdCmG7B6Op yRJOagn2q28Wbawbt2Zjof0wx98 +9cdsafGejfKLOw6ji5lhPss9yKscZ989rWb4OkO898vSnXmRLjfL6nfcxlWtYO1nw0GnL52p1ST/ ruMnHmhyUI+8jVNYYDESvTElsZwDxkGLaDmZQm5+GqR4NwcB/DzSS2/3jbZ3bXz/ nZIewBT3SYrt8P7uWpVBnYbQ9qKfWGyS62ls2pLgjzH8jsj/ YxyH3BM9bWJdIi0LRiG8m4aAzRY0glsUnwfguwM15FzcpfqX5afEwrXGnlC4loEI/ Vn58BzDiOe3297CJnIibSyOkCWa1Qm0k4AhnMBO1N7iGRpMQMTqkSKcAbzIgIK6fqXwbwh+ CrSFXoDySwlXmQk6oW+JLFa3tjvWyLcqSHw+ubjTk/s+ BFdtw7fMDMs4LoLbxO8d6up6Kq1p5qUkwX9gDfkx1jt4YaRsTPv5romuyYB9cA2lFNBuc2A6iDa7OHWd zcP5mErsr2Kjte0xv0h4wXeu2s5hYC /iZukpb1V28fthlsojd4nVieOmv0Yghzf8yvKvF0dBvD2PqaAscADLNpBZAOdID5vsGOZV/s7w7/ suzAkvQBpehSuO6IF2/FDNxcXfMq0IhA3rAzDb2s0yMu6KqfdAMHNX6hD1e+qrAIirnEY3l0lP+ 6HWSs6wqen3JNx6N0oIFZF39OpgKeE4ofHw7I0rIage9gyyONrhGUQtOansVZNjmO0wDl96gm56jfJ1v fOHaYzd6qmtN9rroBc +oJBaXlskUsP+s2dGsPRs6gdmPcHjdA3mYabcVKaOPBaQ832Db446YgdFwpxxz8ZhfcgHQHA/ fwX8wl2YA9lsmjbver+wNhr7c1O+D/ ywoafuLpo26waeXi04Tt6Sg1NtZ0PovB014dPHKOCWIXFpDL3rH+ p6tEZ2qSdWKq1pvs18I5stMvFcFH7F16H+S0Z6Jw65IrLlOlkd1feothBhlu4r/r+ umJD7BSu1Aq11bg8Hj3tVghx1ay4nQEtyuf4FfC/ABJb6U+q2/pef0cXT2R6KlSwSL+ qm03ip7lxizULd159jnL4OtG24iMSmI+ O7pySdQ5CzuxaU9HzZ2Bg2ff1XkZa1eMtJ0pXnW1bEb6xHs3iKHAwD7wc5ctAKjzlrsVpPguxPyXKph7 vMR7O02n +k1zF5RxoPMZ/AHWgai7Ayy3KcHJmxymz0Jg8dGm7cCf5kuQs+EtS+ Frlh5JSwwkcB9xFw6Bfw4A7jXJmZ0Gf+sGsGxgPhvFWJ0tZSTU7hnLiNT+vbL0v5V+HtL0+ 7oVU2z16dj0dyYizVlJPkoxXQjZN5jKaJT5BldEVASjHhsihb4q8m+Dv11i0nXmUgWk1O/ 9ZgprFn2krFjD6wWbX6213X/ Wed9W6rjwxy1rKW25ed7zJhhmjsFi6c5s4S5Fo7fZLyN1L9fCZzQLoV7mlbqN5fl03Lwi7aozEF68i6j cqZHBlq3nPO77R /OknW2rmdXQfObOt3a4s2OlHo4LR2plFqzBumvgXKv26hzXXKx6A7nLVhx3n3L9h7xn5Ekwv+ V6TMnCkeLt0N9m/tdn03Ucm3nB+VrPAXSgAYiRlyNVElg1SmP3lacmBdsZct6T1w0fmnmXsCmNEg/aUd +Z3b5dWiYAHfFPfbrDAwyz7NUE3LPBZCSdGMPRTd2Y0PlTorTErnh9imXmdr00j70zTs3Vzjg4XH+ 9Lt5ClnmlZkF8EyZQDa6eBNA6M+ t60vTbEG9l5J0EmNbioO4iAP8WtVIk8eWYrh4NfRV3jpY3TqsNlJJ5km6m0yIaeEAxxtxiRHOeBDzFIv ydc5Ibsr8l6 /I3ih8ZUKadaigvk/FC1uaK+0tb2S+W95pn7w9J+A/JPvlJfv8h/ XELt7zYsKWXh52T8gDYmAo48MGnVD3jUQ8qKMYbzFPX08U3PanQ9Yxx2xRFzR2jk5Q7ju8t4yjmT/ KhkNGUkKjNpz1WasK3mGJUebh4n8Mm0ueYDnZvBadt/+DOoWGq+ IWHKcgXHpfvv4pRC2klJUKcTC2eu5KEOdA4ivvDNkp9oSx7nYA8eIYZ45bq3MBa+ 3cDwxcqTVUuX9yC9rOylCdHGaXjT9pEVt4Nrqjej3vynr+ HM2hJ3vqqLAmgePRQ5T8O7z1PF5Rpc2wYcAInGiiU7skijId9skxLuXBn/ z5g7FlxhG3Dg18N7h8viHm6iwd0gh8ot97iD3adsjQdH13LGeHBBnFjxrIR5eKmsEKXzofRjS7o871Xt Nrp6lLii8oeLtStRmhWZHgsPiEDRT1lCL2G9LzXAEuSLAcDcNTazg7aSrt3IdGBkJ +fEBuq5YNFGxJIhwV2jZd9mEKoyCZGRUBf+gWdy/hVw6T5vMvr6r14bFxMHnasBsa+2N6t5T10Mot65/ RY9S0L+pf7N24GOTvVtDjj7gLt0yEe5SpK8xma+HIPJj9KVoXpTSDNGjfwMc1PMS15HM4rW1se/ VBrtz8H0rnK6WtCCkVUs9X7bRBLTqMbCX5XnbLHDbTbj5JO301ajqKAGMlcen+o+ X3Z9TixBUR4ONnJo9gJySFMnmqbLy2B7M4nznnMs+ QWDJtyDwVVMel9sgYUHaLsrbkSEKU8pOfSLNROUTAgGolIhQvhHVR13DJPkbVCBrDGC7J7JdXSj9OEV6 KVSMXH2QzpY +sLL5a8mS9ZdGU6a73FyThSjzEVk6ReK51WrLaO0xg8c8Gu9iV/ XMFdMmSbf1oai1K7j8KoIT4vftrBjiAOEjonwznIR8bSYy2U41oVKLDop5sboxGw0gZKKn7pnY4U+ itfpZ9/okxyt8Gi16llIXA+xrG6a7PJq+ O8cy3wINTOAASYMhij4V3QHTYvq6MywUl4z5Twi2kmgEAyyq3jSx4lgYEi912KPitGhtlhJp9IZPQTLL PBlmAbVqLKInHJ454VEScCyPP1mIbTEq2WW44Ya6d4Dzp7 +b2XwY971x+ KTMuZYI03Ys86alPug7CgfoncC9kCwafk5YBje2UjjRmmqQYilb0Fi0Qqex0coczRqjsmnbwlu8yQJZ3 wFxiJ7gP5zdQ1rQD4vEXKB68iI0Zt1EHlfmt5BDnbMewYgscIyvdFwQ7Rtu0lF66Rk1wG8L7boUVrYf0 2lrKSMv2bZN1d9QFj6cubyehmJrwP2gfItU4EwSZfPrZhbZlx5 +K3O5MHeC/iwoCxSauRLXD5z/ E5tnXtALLxBZV2SotLL32lu2h5X3xwK0igy3h4h73GKs7GWLVB3LIVE7U6qg9vadASVhKTFz3YSDcgSe JmWG1dQTksW6ZCLY3BVbxHD8NC4C4vBtX8BiB3VLC +cMC4171RufDz6OGpCqtSJ56PXi87V0g+Lic6WnbY22E5+020MzyWxvryW+ j02QvHfGeRJ8VENZaT1IYM0DhXwNYbB6DwJgWr4up0yt+Xl6fM+ jf0jhYie9kFUXFJgdY20bhkPnw5js1o4uI0XbEuL5K+ L5TPH1VbTq5KTvrwnmGUzTGOw4lji8JSh2KjvDHuByA5Iz1O27xPZvhErJ579qnazY0YvRrV/AIt8Z+ Abxb+u3Z3dQc839BiDECP5SLsL1TysZqYEcLtqDD5ueV2asun4lHVg6an8NSg9ezXykid0T/ FHn3w5JI61Tbus/ nMg6T5FX4c3ia8IjEtP21yn6g6e2x06k7lvGJJquxJ14Ck0wuehYc1D82K9ol44Fia1hvV5G5c15bG29 EKxI62av /CD+MKpizjxDiuLbvyIJaJsI5H+LtU0q/vdIW70/ HQxBkfzRIwpywcjl5lnphPHveID8sSDBXT4Dh69eEsN2VejoXGv8cnfso2qxOKVUQsS2x8PqYUrBaNO5 LvVRz8A1twvUNpRVBPz9l6zGg43MoN /JxxXshdh9lhEFjBzgKH2EJ7Kx3kJ1NG2zc/ dkZTdSCRlH25C7hYJiVOZkqEksWshHpaNvlXnFXzixrJVaVL5PfBlav1YkFB/ xtJ62AtPcNEm6PiO8uLfzoEVgE9xcIT017okCCKtUbP4N5cOmDmDgaVlUyGpziPmzRjTL422h+ X618c1Yq6FjkWrQ2EIt4qYeduOwez0TYcyJqo/ceAwFeFfpyvgg3To9d1+ y5aexXsEvrzfp1hA9KBgZiXk/ QWf4gWDurT8bX1zDAUJ4tO33mv7eOd0Hr4dpI5at9BKnK3ocKBWZdl9qtjsmhVHeBhexyyK+ o82a3XKGjAVh+0lSeDCKqS3gv6krfYgMfk2nTHtm3p19dMdXOm7mNl2Iz4ha3ITjVCnHNmOR27/ FABd5jRJ5sX/PVgnscu7v/FjSfD+iwC5F9O9i59adGSiRD1kA+ 5qeByAoP4PLbT3ZBF5G4zE6M0cRQCzqtMmpqns6r+ztZbKHULTTdLmiruvBfh/4sfEm+u/FfjC+ Vb9IWtMJzjo+4yCo1ZyWYAECaL+4ul1gGXNKYLoIEtmr1UPBTN2XJJuf3i/ J0VnpqxF22ye9L1QP8tRkzE883M+GfA/hfU9Ra+0TWtNvbzxMFiGmeIGgfRdNXQvEVvZ/ s01a3HimjnvfqL+hCgW3xmgmQGKkj6xegn/Mr6D5epD5V+G+g8FbUspMdu7U16a1+ RMJR7uzPmyr7KeNsuvxErszXqm2kF4AejjfJK4q8HRv6tpnVSkCNo0P1ERN+ rNBi7PqwmwcboZSoH5xYHUG4KN4U2Av7+ yF1LCqFR1vohEJv2G3aDZuNhlFNy8LfXQwbljZ6omUMMQrtuQdyDO7MoF8W+TIr9Vd6kdF/ 2F7X9tzTp4T17f3w1n2O86m854nxNNS0jjHx4SrjSe3WqZ3W8p3nXnXA7Wzk5o39i9SN62/ pTMg9Ovf8l58f77zzhQHl+CtBktLOTQ/ Anya5EgJ6hqRYfjKN3E49P3UpsDoQx6rFpYHqFfHbDod09fg5w+XW5LQLutOevItpLjR5xoPmL/ YQyRXXjCa7+j5cBC5BOobRMlkC3dSEFZqLnTH3fg9XXrU4wqRyRixrYFQUhWHqGbpHqzi++EVtF8oz/ pxxjq4P71RE/J0rPK5b/wkugeI/H80kt4gIQkFX9hBMYrER02gLxBV1Rl0Q84260f5/ wv0wGHiu7Gnp1zgU90rvwmmyLx1IrU4w6G7tLTfHJj7YEl66q7SNBKLR/ oMglISF2ItCj8r36e4iZoy4g8B8Cs8U3JKeE+bmEv08d1haP+i6RpoX1f5epn+ 7RSfmo6UzS7XMdBCSw5acvmkRpR5ZIzyDOGRIrJGpIVfL2Q/DNvPTCRkz13e1DBbL1ki+ IgU6VIcWdPpS4qeJ+n6m2na+kMg1K+0+ 6FXtFKoT5NNOszhS1B67bEnxiq2lLbCyTlgK5K0X657VX5qJp893rXNtRyR1garuzPbIYKJs7BaIPMWv bulU5d9kw3PC3hi888y1acbSkD9tDUeR3tk / 4z35b2AnL1m6IzTo8O8mJov7Kshv2db8z47RRJywY9oc7eRuDdl4IwmJOK8Jd7BX77vluI7tzAd8YXe3 Y +3mKwwgiBPhBhebo63PYNx1x75j56BnY+ htuYwZiUoWh1BUW3Wrclk5FzLdC8QofcR0jnZfB67oiidN8o7T/VUbg7L0HXOdE/ 6Isi1TwyV4tlIQEb9ioFmBI8c1sa5cpRt2vAJ/fahh4pRJoA4+ KVt6S4XdadXwNWsx1N0i8q3oh3epKxUuqw4c15LcH2KAMksTGfw0W5Ppn8Jk5hnUoD5gaO+r6cZL/ DVAGTzbp5kJvYDYXJ3SIlrc8EcTYZrt6quGQjz1+ Biig8878F1hZ6dRg13ibu0B1MWOc9HzKcYayrI70H7QIx2uhjddpCejvym07kxoV6eSfeu0Bzpkgp+ TOp20B1px7n5ezmcjKsrKSQo6Kmaal2wMH9gl5cTbk1s4X1FUWnHZkJezk6y1NqUqle7xel/ vAHYC0GLkVIGYBQXfbz3EchjCoRvu4tcrLOgFn24HsVp7FFl1Uh3sHWfzmUn3MBITuCAPULZnujDIqZf nG7Wdo5u84qpv3G +Cfh+553wfZPKiIe673zk7UqZ/3EA4192eSJkX92FkZ7ye6zjtl1VpQMe3UMol576+VLlnLWcK/nx+ 4e3TcH5M/PqNAgGzSaI6KrX8h1R67HoajKjDpr1NQb0hqJMLM6wOg105yDFMoAwuuw8yv4U88+ pUtk2oeeVv2+7rm7fLGJq0Ky+ CJT9n9NxlK8bOtRMbMx4bjQ5gblvcwf9CMKX0yDyoUTyfN0H9D1jWPpN0ku17DXh7pHHhQ+DHxX+F/ wtKAwQgzevEgPHhiLeKOqVPzn8eugNgQMm2ycpJgktwDoaOXjie1sNmqXBYgje7r053j6N6jZQINoPvR lG0RKprRFXhJBxORrx46QCjPCMIKo4jT1cZynfyZD6VfKnIxMmHdfSzCeCWJhQMN9OCTlSnfAIMqjdiO k4bz3t433khf9X /Ioyw01L4cz3+1XqvhXQbbxjrix+ EMjGh3QX6saYrWZgrab7bv3C3DYfEI6otXKpe4bkQo1Gqg1p8X0CI5x0Ui2IpSlz+VA3eO5Z+ OHwvA3xh4RBHT9u4RIH53dD40U8KqiwkG4E9lwj5jcqo5qOQuWFGM7o11Sjjo6NiUgYzb63H7i57zmrP 8P +KWVlrv3rfaggUXWkX/Dmut04h4DzgM0tP+yCgFfprbw8K30eRVE12IxY6GarheyPmS1+ 3t4B0UOJToYS8K/Zt+DhjSf4DZY9sH0S0LAv/ VYJHPJ5wXXsjUdC4L0O8kpN5oDEfG8RFJ5ojhasxneqgfP20o5qn627f4elLCLCLXiGwNNPB/ iOkbKnqcVMVXyb1Tb979Vr207ge5iU4OJMq5aHMsbvs4PqFgmgbTfZtDbM522b+ f1rSvRfRRBbbAj39BIritxY0gv+WnXEb2fNuQ80KM9ZnEvnRxvjy+ KXmuUy4z59C989qv7RMVGyi2roqVpgeOTOAGtWOADAe76Myf382h7SloFs8wlKtP7B7tykqoYFB7zvRl A4F6rf2qV /uZq5i4izkXmJyFGwg3LGqaXapg3J1uiimfol29qPHwiaimH+EopLmY7u7/yI1R9w99T+Rlx5vm6/ pAKiq2xkJB2vxrVe/weOQcSJGoe3dLRBl1+r7a6PsscqzdR75LTD4YaanvNuk+O8VLCTI4Zvup1O+ WIKkyo1ybtKtu8OxHahzUX6p3Rs5k5zQBXL7ytDaXXd2X4fqqV5f/ cYNYoVbqCas3NYxqsBpRtdce3GQsO5eUVS3FC9sdpcXh48oqbOYtwVDbJjv4JxUeLkjcBeWcij8at6Xx yVXM78LWwOevTqCwt2vrqGQzu3MrVogWSGumJi79bp9pGKXIWmzOwCYA5fNceWU8KR7d2qNxZ1matvE8 hhcPe GG//ADc8d+OG9Em6J+NLmp8mcCZvb/ Ov1B67reDdSvSxrPVVWs01SzN9TwK1ktKpp3iTu1vQbrjwFnlq1IphZGLZyIoV4v2akEut+ Jxq5B9Q0I1gGpK1JHAwF4Jpa3d7SXU+BHiIvH2L/jXZtoCeA4I+obox0b0WcezecKwdh5e0+ mqdpdnOqT3ry1x25akUf3sIgtPzB/ xJOpHIWoE3kxfzsu3yPvA1CrQ0bpkEP706yvnV4cAPGUfvBbBsngGRglgrO6Y5t3zPEYW37Y55bhH7ne cBq5hksZMABc +HX4TtrRTJwagwllbDqTlsHQ8O5Wg3U18R3+V5OdH8paIdkNEJwD0WbC8SscG8XoF5hov4fwn4F/ tI1BxK+gnTjq11Vqr7jgdOZziG66YJdBRtc75/sxRxHk5hUB2f9FGKcEqzuCdjmljU5nA2b0jX/wBR+ vUR1bTeL8MRU7jxhGbrtSR+B/w7+Rpx8Ofq/tCKeDzUmG6wWbSY6d5fC7DecYfG/kRALJ4YF2W/ qUUw05XzAqTmNppvGQ7xTKqczoU0X0n9SqjtE1aijUsJzDZdceWqyf1t0MKhR2K+eEZLP0b9/h3XdC0+ /ji2YR7RR6igSBQhxXkgHLjXhmS5YaLeTFAInogL3QLUhv3h61JG3Q8+XrVq+Nf793Uva7HZnBia+ fnWs9ANq8a32H3sa7d32VL/mb4Y+DDnik26h5N+ CMS3n2pH4buLx2Yv70jv96Tr3wSwaJiggnwiwS1gP2awkQzfUT1JW1VAT7o6iZmx0Mnirkog/ M0RURSBtR6uNKK2YbEbrzK2z6Ti/k42Bcgb7r0LdcKN9aeXExz/8L2Mo0kemsqr7xetrCtcqyF+ ueLtVsuC80p6j0L+O9XhpUTqx/g+SHgWh7UKebMl38aQsjGZoH+0Y/ WDyukt025cqAIP5EwJaeimdqlCGY1d7JA+KtB+Ilj4zu/E/d5BbQkumTq3zF0Hcj/bd/ xL6dojTe5m6om8d6//YBeti5Qm2HmyRaA0xmtEK+3+8Qry4MTxFAok0E7n1RJ+ t4CZ9mMr3Z2HFjHb6HnZDDWlpC06mBBTOekPq34yu07AyV1X7+dui/c2wP1ekbdJx+D4/EHw/wDh/ o2r3/hzUptfnGqW+loAi9W8pNrkO11LdlmQnrCPwglFPlLGjdA3L4Ys7CA5kDFZVbumf+ eBVl6pATcGaeY+ 0ImZRyB2MUi5lGjPhd61XuwesU2r07o0NYVxJI8U27erfYHbXYi9oSsLNTxPQ5wR1UnU9hB1iW+ lfLMGN6GU9xw3lkFYapOysWo/t5LcqnzC64njZit8n6ZqVsVb+jjUXEf+aMTl3tti0skAy30RwL/GWi/ D+07EhIptv1jGGhYBA8eM5mvhwetciofrbXbpgwk94Un4Z9gbZo63fn0bNZ/ M7mEFeTCfVIU3tnz7Z39w2m0GcjLhNfzqS6iCGxtfq+mIaGpNEdqPkSBwtvFaTnA91NxerbQ+J/ pb20NVrpQq/c0BKXj2Y3EypJNQbtX/ 3hhOiby8GxuLftHpFeNee7sxUaN1nd0wXyoWM5RG9U6PzWgjG0s0YxCTR7a22N0tipokH2P1mQIStIr7 gFStuX2a4x93mfOSeP6MQVZXuVK0pil5H5oh7c /5f4IuBjA9YlECV8KN/DuW+inHz7AKNW2ajJOvDzcWQncq+6Tklx4Rx+k8t/ qby9qywmeGtNeNdj302AaGKiK4S1rZ/ZHjb2mqpXWzQXSh8nKzrur5oQJXzLqYx0wvvUq2RAyL/ BkQy1jeNy+RLzCRBVQ5SoGqCRiV23q/eaT3e/ a5dsF3CuyQkFrMmJYRSMrKrS6fB9ePUzGZAuj051tuP3ydG4n+VRlk1d2gmL+ V9iu0RVuq7oezEz00V45v2yUxjEqn5CCxGlK2D7tw6wGMOYIPgx57aui8LZ+ EtXe5VQB3mhfcGRhJLoYGhmrQNMqtlbthuSKM4gnuJ7tMQALnrd0Eqah70lzG5LhFSG/aAn+HGm+ GPEUk+z7E0mYVLTZXUyCLa41t7ejMEH7XLhVtwjvISLwsibVZ3t2tkX88CQmDyfy1d+ 6YeubClmqLs37N30gGA89bnTPM0ikJHAOal9L4n9k4cN4y5r86LNzAcCKzmdLMQY1G+ rMl3Za658ylvWf286To1sX159LU5zV5Qijcg6IIpkpOseiarqIbBszqEu9MWLDRleXq00oDRFIh2XIdb eGfhvruqeMJmnW +f21GU3h1we5vAACq/rFsl1GvuLPeDV1C7oQThrkhxzuNWJKjdFn5Y6uk6lmD2wmat/ 7O0j02ZEVti2cxKs+27SmmG0bZtebjPzYYEqTmXOQw8VJeXFfCUVhJflHzQ3z1t/aH+Dfgrxho/ iFb0XWHcKfy95gZrt6Wb1x1tcT7D+TXcaafIyKEbh1qw5yixfQq04qIEEM9mU1y4gWyoW8u5H/ HlO2Av4+ 85Oz6nltercNgPZlCEIwxY1TVg8ujxFl1JhIGx5zQo9QRH4rLungwoHUaZrSru6yf7dlFQXp6xoct+ omwKtP2j2fTXCZuSq88krdbjNDkzgVMZyor0qVKjfZQodXinB4oYwC6ghqY5629Qc4i5Kq/ 2gk4Rrb9ADm8PS4YmHCyL2w7ghXxOcyzQEJ4nto8c1bKaqoI1C3QejD/N59SClk67yMpJ3FnVa8VBs+ rrBr2m/3Mfm2r1BXJOxZg1es3Bwj2T2NEagqn9TxGAd7zywt5ponQAFl+s+L/ UArq3nW4lw8g5GET1W0hBltWz4zoZcKw72aai3vqnPnBGtOPp4N+i2jcuiWlogUIFdbCQWFBvbI/ Tla1YriQPDQzz3emORSoNt7aCoky0wtzU5wBxajxt2mtsxVL96AboYrQcjQLriKi7ibzjzLk7I1I3phc xxo9y92 +l9/Mzi3brLgIw4pu615YQfedOcHTU15TEi5C0wgmE3KQpendS4fVbCqhf6mlHb6N6f6Ji/ aIlE7emX9qRvw9VH4G0wwxcUycbVbjgp1Vo8F3PkQUwULC27Ht/ xIfToN9We8XS6cUW6mda0J7VmdBdppy8zzPtOU1a2RrHuHxnJLSC3SOOqUMnkqtblGddRU3/wD2SvD/ RCeilE80guf6shNwFq5yb0rzPdpqvc0a91bBjo+5788w1mIVq6vPOlxhOHyaelu87pzK/B/zt9dU71+ JjwkOpKXAJ6KhKaHhGo8kt63f2Nwggf/ vRrin1Piq8MMUqiolMoSgmZ6f6cQE3kY2hdLY4hMJuLfjJ08dC3m907WntcN83YhnHVsyznQgjZ8xHXN 3jWmExgL8Pa42SIO6lNKt3wTLw8 /l5dq2NpeCt+o6Zr+ ktxlq7ra2iYqouaOqfVat0pZThNmtlyeHZqnIdSAYIyuyTceMEzg2HZ7a8UpeHWh26q8Rv2Rw0/ xMpcE4831gDDYD5fMYK1blK+qMT3TOO/ZvdukbhYqdwk7FrbB+DXxB/Zj+Eyq2HMiS4s/ eG2Wj9efPlMxYpHEA4tmPAJfI7r57xdzyo59mAYSoQd9K7iKydsoa9wWycHRk/wCz98R/jN+ x407ifeOCRO9D5TSpCPartHFGyx0NMCuuEA5ZBCycRDHfKBuqO/8As+ CGaeOFJMv5a0hj9Zc0VSbDTZEUYR3vKRqTYqIq55oi+qXVaI+ Wx7g0zomOM18bbhny6EtiNcPlK5jHPA3UxqJnIb6HPLcezbUByvsm1eyT/Z4h5S6JzM0gatUb/ lHvFsl70F4zIOosb1iTTqeABIFkGPqeQPVURQ1IJOTXwOqRTrjo6BsuU4PZRh2rqhh41sbZC2T0XXbHi 1nd8EFts6G7Ehlvnay9 +kmeJmRba8KoNmDEzezjEMeiOF6U3+9pg1Znk3loSy9rUeIiwhDivxk+rFfpfisP86tOvtWXYdMxcvw+ gN8RiwogUf1UCTDXxmyJk86AoK/5f1p+vCTs9D4kW+J59QEeVFHpxnna44/T/ qLiI6PfP8T9lzr74bzK4Bgsvm/N7Gz6Ny3+d3/ZAfudnTgotpVci87wTtA3kZp+XPHBzyMAdeuT/ Ic1M4/I/wA+c4ax8DXUGWZc8gm+XOlkxFA4eY+tHu6s13347+X68MT7g3954X97I2KkIDRU8qR+c9/ 9A2sbJceqG9p54zQ5YSKod/Pq/PXgnBxgDJ/zjn/ 26QecvQv6Wn6IUUrd56U79296Ac0nuiCZMKTYWoe7w2c2ETclFp+ Ccz9quJ638pOvT4S6Sg4Wk5yPbBEFMwnt/Tp3vv2WH77kR+nJ5x3+jtsv5cBxg4WH0L1UaFu+ txx2BIZfK+vXBBrVLpda+Fz744zb07/iuvK2+z/4Z/0pfEDn28JqOm701f2132ohcP82mPTx6PbkC/ Ppz6+k7T8sh5S05sKnypevE6ReP2Mp2mdHINmSEOhOLanAbEluFXAhwMaAHtwdRB4+ EeBshq6nx6CYVza1+/8AX/QR2TZt5O/W+qt+ T7D6g92e7LGEUoUWKMEtzjrNFYB23Q4aASenhasfToGxNvFpTnRTFRCwRowo0ud7PeI1VnvV8VDQBzGk PyL3oEb +xYNGXrBeOCBzDQafq6HEQXFP9QevwSa+ET00LRs0RLT0DGfI5i9Zbt2rB48eSt5ul2hmf5Jm+ 91f2uAwhBpJZiBdOMFbDZHihAQFbsm2rKAfK9gI7EJfuJInHhbnKVwWYAxAxEZ2JSoL1sXaQ7tQRJBVl uokVSqIdZ4vvIl8OFAif06ZKG7ABOCoKoqTNdhC4VMTmichHOTvHj /KqhAzyTVbtW7qh9PbTnvnVOaKYj8d803163/K67v5eRtQdN4hiCT+g2h4RyOTWxh5iLpJtwDtE/ ygXRscFfudWZ5bE7OhPqBeQxLkUayyfadTvI5Xe4358pnnZSTOG5Ttm4Wawn7qsfANhbgXoo68zvruEm lDIgzaVMEYuYzeCQAzXAtvG92qaMn4LFzrXzLBn3wKKL9UNnSQVyTDRHmJRvlulOh2FvTz1jTWrsvTSw 07N2e1 /nJK6Mvqfa+PXS1n+Tzu4xQsFcqGZj6u54bdaHWQsX6zWeRAwAnqAK+ 1UwUQb1Av5aAJ5vCYsOCgD4xQWwR7aElHkucji4qcS4lSshRrp4sDMqzmwbvuZUN3ITTCTLOvLCwqfN9 2ipftXV7ltk6vtIxJ +SnBKlmSlDAZvJXbOyDXR1MveOiXSgyLccPvMQJXnzGlXO/gjtpZ9/ n46ad8xlYhJcx878HAUEDeG21fv8gqYTlYspBGhdlB+ 4hlpwg0iiNOtfGYCABrGzfqefG76CESzZN8K24Sp5j3JxJCLmchYIVTwygOPLmMUcBaSkaYcCsVZ5jiI 0xOnm4bgEqMpL5JFtWVEZXWBIqglOubNYSduTcOwAoZgBu4utx5rA3s1p2vYyc9hah6i8a +XDJSjePbrilY1JXhYVVv+45ZgqkZdwORgYrnL+ 08LdHlK6gjvHpZCopIVHHti6WFHPEbUAAYgCoWxbPRxtF+ PFkM6pwbxQ5kH8O6pwYC7AA9KVCpUTuV5utesbcReDg2otI7mXHaYXzHpxO0FSBsuIhliIFgzn3l+ sF7wVft/kF+rtd+t307K2bw0flu7yhhEYIOMXroZd9SlINjL+ HkJu3X14VBvPKEt1MxmtoU1QfIc0YKK2gAXVegs7inJvSXdSsb3NO8OM7Qg3/ bFkM0m9Y55yDJvPY8mmDhlyiBCumMbAAhLmAlK5Dt/QNpj5VhUzxAG3T/ERyeD3aZ/s+xmWPKHAs71T+ E/ cLvzh7MXgzmFNRMUi4YdvPkQylcvdSmaAxUHbbp5pOZte77O1xLL9b528I0Ewngf9S7XZNaqko0WRvr/ xoGj4K2Ik/8VtG+HFpHbRImt+EfSv2kP/RuPyx352vQKPN8MVIGrESsuWniStTwnrjLjErZdc2j8B5W+ CGEh4hK+BuaMvoD4mz4dlSzClJ4mLIqyI8mfzbXMvIeAFYMnx1hNfdbiKXmOTsJGnkyVq5aIXej3uy/ MQO9x8vzY/xg2jhqzP/qtwEBKppNYPBFzuSsnGNmnEaizDrcCNZTHhaY4Ok7pE9sSP2BW8V0XrBcg+Fa /W64vtI6riok1W9WAPTJasuusjA8jqYW0BZQTq0xzhko58G3cw4W1G+ 6LuAcMgsx1pbSAH6bEr1UmlkMt0uWNRZtZFyLpfMGHkBbp13R9/5ahZTwMwa1c/ IVRpax1HNFezdwsw2wQNEaRtmxTCpmzMnkhrslFdtP7WFxv1AHc6Y/ Tsu1MgGPqvfiz4rA1BlSDWXnXYX10ShsObzmjn9YFvCkjHlqBKAH3jx7CzU4ESpJ5m9e/ lNrVNxFHZUqqbSWKEedZX9OzOGFP0xPCzqsg/ bzemoAYZhcyFNBpwRPetXy2c3Kc4csb8gcPTsyj2aSsULOcB324s9n9sux90/ S3JulLJcBW01zzdZnnDN4rr2n3dTHRRh4jK8KUEUN9gKID2XOQtnLkrcTJn4FextlfDyII5+ fMAeUaDcNNSTPQQ7DE4ha6FOYml9M8q1HUZNlKMK0DID11n1na5ddUyh++11e/ WNS0QvzCYnDAR6EoMCZI0CzI5rE3YlCHTx6XMuKW27DDUaMR5m7YirIekHRzPlkOlcRw8aknY2OP3R5c R /Ump2QIgvyLBssVFQYEIiuLDo1/aB7xfQM5d2F8Xd4Bf81dF+3Q+d/ fK5r2bAbqlr83GMQFgAWM15uuvom5k3gRhwjPIxY2eCXLARdLA2lIN1eVgd/b66AhUNewS9h4yLPTVd1 /C6IUMcMr95jrBomR0xAHR1uCMDamvSCCfM9C3DuRyScrkg+ E38sMMVzvda9ve2wvINUaVZU5y6es6ocULMK0GRVmxYQKXl5GXYs6+BbsC7gSO2bAj6aS6y03yVVaMV+ 1Hb2NZOr4gs2YwL8I4qo3z7sAHow4ZbirovHm4hors84e781my522ncgJLdu1cyDqjIw7u/mttLJWe++ jZ+Xf/YK07pLtouINvrtLTMpQ+c1dgsSiuEplWsL5pXq+whR3soVwrbvHMDsKXsE0P3YdKEG/oL/ QHAp8eFokof+zT8B/vz6w1mwLasaSeU77tCUjdw3p3N839VtD5zUtOXGwwi/E+e5jG4wIUyzFHDIvVPq /nQ+Inw+D6metgwc4ch2Qhojgspd+ Cst303tjEnPSANPQjwNZ3qkjRvVQkbsRd8NwJmLX51n0i9PSmNSA+hijS0X2nB0qiJfnyzn+ KH3OKDoTW6oJ1bIVcypvbi0mcwRgoKPjDH8gpKop+EBjCOGxIqxQqPw8j6JgOeG83ZyzNcQkc36Eb8+ cJxGQo9BhNz87Zy37j2QiZFSq2enZTIwftr5T527qroWp3n2s9YhOc0tyKSFOC8kojYfr/ YVHFCMXQ5d8uSqrVkR2OUYC8+/FfS9aE+qmGRxSbYjYgJW3hW1qAvw/ Q6muzjt5n4drhpGV2vkPEUm9jWeuxhHB2vGNG/oWiX0cFLJOKz4yubJyWsdBTTtv8+ 39eukzsZ8D0qG5d5LUveX/aKB7O9Pb+ay16/ v1EG4nYc9NQbE6YtzjHsxbj4JGDiIqovnm3IK3M0xFQOdKnqZVzXDspg1Kp5F00urk5e9VD4+ F9QCIs03fJ8iFu/GJ23Pcrnjz1lgWf7Dc7dS0XH1hONkZbtyknMZ994y2kyf3aEYB4yds+ i5jtAStRHUKfJGfYlw89O+x/ kDebUqipv8Uf2lw6MauHoSCz7EvEsiaCRoSpdiu6fDNZYH6kix08mG3KEhj/Q/s2S5L87tk1/ ue4fpXEhMZIwu4G/9Qlt7I3XutniIh/ q0itE2JKdbqW87os0xKrKtbDiCo9JZz8jiNA4fNtnnzrTn2adhB4dt43sMg9LqM2sXOhxBwWivsijJqa VcivIQzxhtHADb8thy7x377y5s +Fb2YMUYhHNdk2UppU08ac0cmWgspv/G5j6mziTroCjsHIJr/J0O9NTSyYMgKF6Vshp+ QNzxSSPwlXiMXgieCJLfIO9fkNB+VnPmxn09id/ qbCChnc4EwDE9LYcP4hG62tkfF7gTIFR49sDmzj47r2IROrVBYvNwq+idI+ Lvb5ndSXVdvJ9pGJqOzQI9UngoD8xBCV6foUtMWBqpGSo6tRmLedoGyDbuvKYZleN/ fWi9fnJMyhs2JTTjrwG5oML6ALP571BqmjKHBPfQExsO3/s+ Ch3is7ySz7b1ATr9NgVvmh62jLGoA68Y3so64FKwP/4HU+ ycmV7OZPujnJBbJeoVsfc12pbm1nuS7q2mnjN6vNhV+ szMQ9s4l7Kz4CnDiTsDRbPZO5sNRl67cm370gMkQQAUISnmDEutJ5sx3I6Fl/ 1WAXefCw26z4272p48SC9tayot7tnyFflkpesObaDJIiiCLjSRG/o1vPpaxoZ1dbsWF0/QDwL+z/ 3ypxpJ4SM4xNyk8y2FzOutxok4n2T1Tko8sA+ kwNuKqB9N6il0gZtAX5b33LNy8Qi8ngOkL9ZlHT5U4iciAjjX1lB6swoWttkLviDszvEWYb6l1o0B0rN kZZY5Qtr4Cwqahv4TeTKUDEekuzYuAIYi8aC9AAu7X5 +coMRYtZdRkBx0XOkZcdRqpsLif4FWtIcAr9stGkMzbjwfalunp0v+EvCnifRrzVEn+ 50ocAaQQWt4WU3Bk2etclcEj1zUujjniTYxJgr8cbV8hyNcLncRPSlgNrK+ IQfWOXCGcaiLFbWwxn5doxRmLG82lYlBum/cQLrC9UlYm6M6ioxrDnnFfdO1oSShE+ aZAqkU5AbSA3ei1muZ/IiVe8QwnX6wF8l5Ug+ mR9gWe6ZlryvJX0VctmJUbKrnVP6WoUL5w893ZBHN3Gmlo43zlQ9M0ULhzMnD75PcgWfU3C6dqIMOexm S +iHQ8IMjeq8aEiTmlYvG0mv5UY/ uq0QGpLZu1fr4l15bmN6TldemJznWd4aQfC4bta1w1ym77E9JJNkQI7CVit0kJBsQTJTdp1D0iFQ3R8t 3GMWOTABCpVqt1oxmMbRh /Y5wX8hVatBspwyF92/U4L+ ZiWdnPYGaC0y4Chp7etzQeYT5B1eG7iIwkV67jOfKQfhHzU08f84FtSErltr8VTDbcgNkOmJdy6uaZgA tPCTW +hMGQd6jqn0bRfPFLNT7FA2qQcks/uN33RDmFmwPBZTYV6c0FO8M+ Erl4JnU89j12qn4O22EE3Q46NGO5UobQbdpjoNsa4C3E4E+1Xd5e+ CRxvAaiI4qYEbKiGS31POT5EB0nEuq+gICloVck3b1Whm43Kv+ JHABrPdrpb4v2I3g9h9pxMj032zr79RlrsfgjgDYeciN26y34iHHYTf0MRBlHsM74tApgfmOrbj5x+ 5wHml4Et8GdSofPysPk8nvpIv1zlAp5VWLY5kEmN8hrlHjmA2vqZ2PxD3Mx2K0VdilCCgsFnhZu9+ hc8Dp7e19irTTf5PipISVBuRynem0L+e3i2du3lr4zr2tzLMi7cjnNbFxtHlW/Ac+j+ RI759o1fJqPPAwJVT3NQT1BgbszUeS35EWVK2K8cLnUCHjC1ZMImzV8gY09gN7HyGxd8/ 2FxkZYqZkbLddCiEuPtt3q++pvdzTQ/1Fh3inkppc3teTrxQZuqR8bsd7ctmQ8YpRmzQkvOAnfdsR1ov /QQvhfI3tlDuQBuC8nBRDP/ mpps9wxstxXrtNFjr4d3c9S8z7gxVIosudU2DHDTriyAaT2g9WNlfVqlZXc5230O5Eoi8AKk25FhdKjX QaXyXFj4LbBYlaBOlSBnbgxSuxcsqhaqbi5lw5h8r5TDMSW54Io7f6mffUrs96RSz6uud3lbXyge5sIO 36ks44Ga2hfHQasCW5R +OLOPIokgB2nA1Y+dgF5D5OUSXnRfQ43ptDeowMA78tBHKWwYeTm/ n04ik1S0RwpTcXShmnlFOcvv0RLRY+b3O2qvSVK7yTlFu3+ mXqjs2q9RPbfAd5vxKYd8guEnIIlXhQu1OhKsrgYiOITGbd90JPY8bkn9RyDT5fbS/bymyZ/ mIpjoYURGegfw4n5u91zvNq+ T152lJqNOFQAeMsg1jaC7DDZ5dtjBlDkHZ8KpHvf168xr6Gaz01w3BbHv7vUWFRnsMqkD0+ VDFwb82aez9xsR9C1TMj24d01D4GLHv/Xfp3gqX+z4aiNqmHuB7tOI4hHFx/ 0gp9j3Yyfr6cPYQkEs0mpBYvyHXcvL8zgV0Rd7y9gzw4um/ zUZ1Zd0jxg8M3WhzCRpbQoEs1adqac0AWWPyFcYdyViD1jTn12v0tXoCiOM4ZUdTjIJEPmbeX7ByTkiQ XWGWTZEJyu0IVs2OCuZ1zLy9WLDjitZ7di7rG8fsAWtVj4mS3ga0vYnpa +H7X+8B6IF20f8FqpaekOVk+4oCTAEvakwzkwl4HAnz8vlrNxQ82uqmUzd+ CDEtr2wP65LLlif0pXX2tmw+aor8cS3oeh0UGYryOj6Xm6laP5exzjyBsP74mkdN55dd1/ xy45Z1l5Z1Q8PryCVGj+KZUc5Qo6eYru/utGlkbVbbTZhaWt/ NAzZy1IU9vuojoy0ovoAyx0iPL0Ml8POiwR7/1I6K9x3hpU7Mn2/ IWuW53Oa1eyR7UbFuVfJ4cftcs8dC4hKRHevl6uD8s72MRSIgzmK9n3r/JZAc65N0O+ GuN0eb9b70pYQm18XCVz/ 4MLMQv5Vw1QZDjlULVuUriLIk9nuUBJAmuvl6r8EWOrc9N0DeW5b6AahmUjX5x0VyTBwh7k8RDDtDZDs Qc7pTuYiZceNrao1ljibKuqq9Cvyog0hJrxL35vMf637opEjvIkOqppkXaUD0tU / YyH91Dj1oxfm1gQrOoiZzTuveMaevyEeEsnvQkhJxiQY5jZIYhHr8e7ookRp2Sda77yvmrPPckUMBEIm ibikYSkNePJ1DHSoEoS80mmadxkjwAV9C6EsCQezqRkPuTIG /Ykqb4EuRxGvHnE8BmCl9Mwt0DmVlGMUuoa1VASwQ6HHaCGNX2c9OTfF3eLzSg0Ncg6zurp+0uVa6+ 7wb0z6W5Dx28QkuNoOkL7aLlgwoiNkrC9iRgaidsS2J5pj6LbsbBemhHOdyui+ ovLqmmpjJxXhseh3omnDzFpVl8lIt4iN2of9T+ D1Zp5ZC9ly3REtZVMm9dXcUPxI4nPYE729rd8U36plSzHoY0SgknGfB2+ 5NgligWx18z5h3s1OQ72100yaX4QNu51fTrCLcrk5olxa9GzmnmqzB6R9bZN5sG25hCyk8SVk90Vj0W9 stGW /gNjs4rAx1tJY4KjOvSAWLYqwZNlsQ4fOerQrQ6B4HNMAvso0RS/EC0W78r3+ b1slVrhg9twkI97E03KF7vBl1NAFcMEOeMLQVL982QW+f2nc36r18n4kogd6uR5EoW6t5I+ vixlGnCOcYbDHPYi1V1uTr2vZp/YxZktMQ/ 1EfS1fo1MjG3zSFlZ39LcX4SURjVuQ2sVe985zPauUo8SsIl4I0TB4REWyslJSmmy6R2O6JuV6Lk5myo 1r2cuhyooka8mOc1V0gTxEund8P9MlRCVPVnKYJ0Eg5sOkuc2pp78FE67vZxVwNx69UpSF2pML905fKL I13kb4A /+ODbOaroa94Bka5u4+WF2kxVWOssutrwQv0xDh5y+l31op7b7DrWlNX3fryX3j+ 2lOGn8DUildAxSqB4afCsCbK8f3g1rI6TjWF2EALaH+ 9VKzsd5h0PsZgHydNnKB8B0fAJiS2SLy9jHgZxTCFY7hSjsWwp8R3VQjE5OPVC1jgwm39iT71ftVq+ cwcz2bpbviRrqBzj8F/DT3N+MvyuySzjGu0bbxeoBJDL3akN5EhBP/OvjHoet+ LiEJwu0rh0Xwy8PKgISS2vA/ CkxqagNvx0qK8Di66M9H9sFDaigY4sDRFy6czflwx9tBakNApIGMQrcwid9Tj1M3Ul8ICCDhtixPELAL kLqSi72TBfvDUQsYb0JX7JvWmriKBThmI0Mqxs8ZPsYjC88gZu2W9SczjiO5Bx8UZEm2x +hRG3B4BRBw5cq46Pgznpyxza4SyVE3hgAWV2Kb0/ pv7BeDq4n06X8CrW3HX2SVocls88a0hm8rTBjHlnxziSZFEPq345UCopY52OQioevSFqbdcdp+5/ EfhzwxE/ oS8guSl8tlqBaPr2wr8s1AKgLQ2GbjuWgx8Pvt0VQ5iScW5Y9ID80uYwkM2uRKCwDmTZ5WHzag2cmFim IkGlX82izpY61g59dXV8jTI0if5G882yd6BMDi4emQ2braXfeoRJUJZoaMg6v4QvAW1NoXNswunAun70 kEumpzN8tWueZ6e80jzGIqthUxJuoGCAQpzke7do09l84F7PE2qibjaulOrs4D /rMlWup9U6ce6ToWcJlp1G0I7vm0Q3uZDsIc92gt3pCKYNQNXaXt3URxM876UyoscvmL+ MCGrI6d5ePZT0C+or4PeCz0tgfoxcorotewOwz5x4zNr1SDMeBdd0MdyFlJIpWDBu1r8OmRawzDUO0c+ BXDxD1P0MQUMEV7pwVTn/Zdk+nNzu7NuQxlVYr9E3yQpTijNHc4PwNjfIDOiBpNZkWMvSivqlJi+LPE+ oeJ7O/ 1Dzpor5wWhkPwgkJploXafHJw9W2qh1N0zep8outYGXM9kid4K6T1iy2eHNiAfNBipTLBqSUGaUe38jh Nxbi1u +4hy3uiaCggRvlqcHsckHzNILQ8LVm9DcNJ3bByrpc2bn5sNScvdOT8x+ DKbFpe6FRkJqwt9wNuv2gQlPh+vYBGMc2NFfYd5VhneKzJW0mGz3FLHhDUEmeqoUSOFmVRR13K5B+ P9QYTShS3nOaltqftlaI+mAJ9okz+S6rvcBu8m7u4+S2aI11LOqU8k5J2hEX51xDVi5wvi0Gk+z/ OXzQ0Q6q2zQo5ePsoDb5BFvso1beiWboUsOC0hmDZcZie96q2Kf3+H6PQLKwkvJqlzfvJcbhUjkcVnYa + VHUfkZ4IMlXk7sZedEnZiAz4d78ZTB59YZqp39eNbyPJbnltX83IZNFVxElinQb4cCt3knHKwBV7gv72 FfDI5D1LrgL +Huzi9DMs6O5IBGmcjNs9p4o9pMP6i1sdff7Nzki86y6f4fyFzX8DB/ ePeFy5UrlgcvayQhV7v1tKGff0oFMWYZI5ksGzZ1m17kf35pmrQTpghlqu8E+ gkXlfwqr3ymOk9MNrQ4JTZF7AvY962NgQ3TyH6lbK4vk7G2vEZJse3Bq5dMeeL7HbP7IoRmCci5KxC9i 2v6FVC5wseaxyW6G4G11UB6pSKbJ60ydfBG10 /vWPlXWJwOt6RsvK1inGbiVJdCygrsaAkh386S0L5sg3khQtT1p268WUiqN0N8iCiOVv782a/ sOwoYhhoGKOZTuBTGEC2x7wpSeSw4jHp1NplmWeKh1OuODo29P54kmH9/ Fj1IfOnFHSEV8gpQkNzzahhOJp1h1lgcfItkd963hnx2OhTYk69fq5vevmiVj3uuUx8Wyv8j5vLzXpaA dMtqci0xzQNJJmTMdr3wMGxXtoWnq47u33B3MYb2FIvrnynnbmtyZRRv6rIhxrbcv7guRVr6BI9IO60o L6qB22q61O2dznVUakuW3KnD /DWj+IqQ5eR3Adsa0b1svuHll8iBPwaAYC45ry8yJw6EPhVDXc4BucjChdxC/ZlD+ gScvW0tylK2JvY5LWvTMR0V+ LM0ia9d0Ts5cRT4fs8lih4hGHQoIZoWdkr5iDPb9aglvaP19tnE14dmNG3XPW0kWy9Lp366+ W2k2ea59JCWb6Wga2iKhsxKW1lPmCUwtdPlfokk78ohONiEWxIxq0CD83sc5LXJLD8jLiITW3f+ 0nUdaN/bQppR/e1089lXqCZyUjBSgyK1eFczq37SSM/Z2P1G+BfgI+ HVO9hejUGX7qMU8hRLVAk6k1xnZz43yCzWxdPhqhcYdhshNwJQz1zv5wBb8u2Vt2zJpafOVz9HCdtsha 5m /Nj9mS++BKj21jwO6WsWeEoD8WeZzL8l7CRSFg3YtbIDEx3t9n7JLDOp2zZKytdsRWAyWdRe9s+ mQxj6kqbrJk2v6QV+e++mPEVs/hT7VsDech+3St46pBx4VEExQxYy+ZqE17JtiIhiyM9qIM/ iQslaf4hx/areNNr+k+KLmC/ pH41KCzJhxaG0q3lTZhpXWO8n53l0Z54X2Q2Ducq45X8mnOpJxw2oayWwQmXxtpzp2GnyBfF0aQBuDrZ 2QyBGTmRZODHqeJgmoYBkpLOPfu343dtBtoVZvqXgULNAiCybqQ5R2DzQi +QabLMsWVq9Gv6Bn1y6aHb5s0WlTARebhVe72EeeY0ktpUjYyK7N0kGaiXkGpOJ1QKuE0z6V5cuIvelL /yF9GgSwi7p6liPj+7gtbrTb+zejDXdg730d9JU7Gsu1hBafsZikB5pdx443+COQwo5i2n66CuLX1s9/ Addhc0MypcqbhkiSnfvYpp5ICyL+wtDc6IudSvpwDjcyGpmBrafWJhvbrKC/ 34vDbctn9f8NN65piCsJMFhbp8immIJp2cvUGd0iSDvG1VPa6HNMD/ qzTk0EZI9kuoUQty0HzMRQoI2aWhSJ6c643emJbzHzXzMAmli1yZiE+ xmrWlBCUcwu7FNhxqxvJnnX3r1AdyBptblARulPQcPFqYBzhoTl/NJ8f97h8LlCAsBA/ Npalgsw5x0hdGAgumv6oFYgQ9Yerllzby7jqTmPN+z547b6cj1AqvkjkxBnDj0hNwOUTGyiY1j/Z0m/ G84SqQeMq66NfYwZNv6klI/7njDW10ucy4z3bK5+ vb76Xce2lut1hr6A573EQu90XRNlNqmbCMGVE494Ih5WFQ4l+JdzxfqA5FPY6V0s687wH4G6/ T3pP6ZCnbXKiL0O0H6KGqpY7DnR7mJDByrr2ToB1a1CCRF2QHCWH0cHVrqfLfIj+02n7Q/ cY2B5cmUbgz5v2bjm8goAvFsu+EJ7rw7/Dil7EVr3VjYjHE08h6hGymIEfF4uoJGX1Cp+ w2sqhSl9VmsVBYTnUlPoscdj5oAl945Fz49amuot2qXgGdcZXGfHt1lDj661DJplWuRDISElDghCUz02 OoJ6qwvu36wJQN8P5PaWi +Hmp/CCbxBcaLd+ RChic1zD0oenqQKvOuWFrzIoyCmO3DzchvV1vmPJgI5qt73p24hBpWLhpZK7s9SpayDY9wL/I/i/ 9OzX3BL5BDvv9/g//AITLSYPhu+uWGsWMms+ R1J7RJdDTmYBLnGtJGoHDFWS74zDArKk2vTz6sOI1AfBzOp2+ 8qFmKweG6N6Gvs7XIi2SxVqiW2as5ffd7bgGj35uaUxE3yAB3JrVrY8F0FvY0x/ onNKxwA5XzuxzxD0UGcvGi++8lxN1ASSLdE5b+9+HNk7+FxF1ElgoKuJL9Oj9Wi4+ wS00t5pd2OrDnQXSFnqrFe+9AMy4xzmsUjRprRie1V7h2f+qNey20YHLDo2V7swfbH7r/ bML3ERpECHjLDlRiQaBbDp1PznRRaSO51fFhZRfCp7cHfv0BRCZJhlrwkAs2t66k/ N9N59YcNlxxmma3l18e1eI7jpxQj1Tn2No3fv1AZcK588lOANczHHJzqtY24ONWsViw5bCLvtyIQNbz4 2Xg123 +IvcN3f5JcJbrSyDFmD1CvXpuG3Z1v0bcL6C7P0ttTvQR7A58Y7+hvW752xvashi5RB0u70leX95Du/ K6eRgnusgfWytJ6E/iV4t+Wp7Xvcvx+ Wtf6Wlio9ytpYLv7y2Y38hN2EV5GfD3BeMrK6xEnoqy2EZSvbGgCi6zmQE1NK5bF9vByj1po5iWL0RMp yDRH6H3afF4H1CE +NYvHfh+4vfHs+w3LdBjooYwvIeIIxxDt1rL922iywfGgLm3Sh+COg8Xg6lB/ UReoA7bFjujWypouXSgywIdesUbpjI19J+ vds038zlSBg2aPI4mG0ShMmMmYznbq12IrWKjzk6nFX3piBiGcASzTr0eDHzlf862oa/AMQ/FfgP4S/ C7Wr7S/DPii//GVJxUnX3N4Vs3kubKanR2BtepOfoVQ3wV0eetw5p7gW1pecafaaz+ CubLD6EP0ZE0zspQwrhp/wjlhTUdV0+2vzY9tPBMu6ncUgL5UyZkB3l8ZnS4rdixjVX8CkxcRRH6xU+ kwUsGcsUt5xrkVjmyx8jshnk8mzRG0MxNdjD0om/ Chc6p2S5U4Kxpb9so2QB0s2A7b9dnL6ribdkgMywkRh9as6GF/ sIv3Ie6ZCT033mhWcKjgybfh2a26kdVJ3B759jdYlnB871DfWNzm0NS6jUdl1FC1unBn6rv+ nI5iRWaWiJnDRgT10ewnHP/si5yz3oSymgzfeZaPTjLdelUVIYZ+pBKPgXjzha9Ww+IxtZU/ vQLJ0A9586l5QzHVXLpgm7ECVd7VkfR+RSYMTWiC523Ht4i255pp/myfQn6rdaO8IHuCnzkCxYKu+ Y2B9DbrWXkgb6tApljUX1isEo3K7/TbCP+zLa+mcwfB1VynUMR9fZBe+NSkLyFhbc4zpUgJDAJS/ OJd7xnTUqIry/M2lNtB2IEMPv8wIX+JumS6k92tuyqzAqV0q8BEPne/YrDmn6zFxzx2E/FLW/EXg/ uzaP4PwAwv9KKjFgaf8s1A0/mb7H3yq70fjrcuL7ljZsHBzDezGKiIOMuYVt/ gslXa2OvVmAt7df2Uqrt3z6SzZc47i9XeWZT4xvrdT3e+ QwEuk3fY36HZuC7JDYTLbru3kqXiLn6sSoxRas8J21O1M8Z1nhcj5Jsfj1zoX/ RLal7wXhFOwCO5Qkslcgm0ox4v85yZYle+oyasqvLip+xowpKnhfZxkoyqShTklUio/G/ MqBZt5rTxneDKGeM8i9fyUpHrjnNbrGrIe4Wo40Jie0bip4giAvs2mdo041yCTrrcov7sGQLoYmlKuQu rM +aquElnw3FkgwYZ/mI9CsWU2ggY2T9Q7ukicqLsJ31R9ZvxiN+D5PUaPf43uJMyp2g1REi785d+ QywOmNeaQgWIfERZy8sSClkC6e7eVtIEyfUiyQeWg4ftjGlIo/bMEWkQ+F/ Xurd1rw2eEQF8AarnIAl29l8Lp8m3w/06+oKU4FlYQeM9/x93Ex+4/gL4q+BkzeK/ EPhZdJtPFemxXttrHhH+y/EujeJLXw7/ T48b8Qw7d1VOYoEdh72lTPSSSHWj9qfB5zCLkguQ9xkblCYot8rgYjh5xDznreWLU0D5plaxc1Ryv1hP zn6ShIp3aYgoo3aEYa3inoUG81Dh1CrawzkYGMXKLwiAaKSgx74OVdr6f /0qU+OUOyhue3i7e9qktqfvbZfu03oJ1/s5wgOw5+ 1tlWakeYGueLBZeNrqJh0A53Vq4g70VB2hI2dswf+ c4nAsOlX7WHuWnupL1DSauix8Tn2jsLpkrkMEayp5T2v1z0eyArpXbplQmub2a7kNEklLbxjpfmfOfqw krs44QB +ny+LvDMXh/UBPLrDDdwOofs3920yaq4PwqpMAct8NG8iGbiNyFkEg8oUdVkgpZofb3cXVrd/ vVZVb90l4miT8unmn6ur5RtCfLe63lP1k4rbQs1Qnjs2j6stCmj4HuHyo93Abo3C59Auo8QcsdFiS/ OwN0caPy4uGX/HJV2dZQYq24HL6vBA17Wjn5VH22w873fNyb+ kfQkdcRbqorFgDfoQycnSoBOc6lHQQnUjNcNzpw9gwknQfoHFblt1h12m2UuxqnlJD1CKf7HKQZ7Yx6j a16fawgJi8rRK1n2eg2Ml3E9v2uH0Qaml4N0aZr /pPg/Ea65OAs7ywSr/iiextbNU+xJeeHdTtl+4nXlR02cQ2zlrEZOjaq38Y0r+prrHhwc7yxW7/ 6HKnIvpzC676MhVgC2VBQC0RvYiuX5Cg5Up0uF3dKdPFh5B9ArH2z3wertwq9mckpu3BJz6xmsJzEAtj 5q9Zh298HeTaY7U6xn22rhu /hjewrn8hGZ9rk2lzZ00ygx9TQu3mD5isb3jswkKX0dVV28Z6cffA5a2+y0+WdbDqUwaq5y6It7qV+ mkWsVOZekzjWs0iSkcsFfDbYyODKc6FZiqgJaWvZAcFjndapO6IkG7WfOy6awnzKszB5RjluGdyoCQay PvdCByXBZA1dw93eK3i7rMtcatq9e9t2KJZjdbqOosw /l59XY1kg6xul/GoJkXw0N49epM2utRaAfBfLqJbCE/ rQo0bkOoBNtQ9Jlx6Z32StuQswmfcjMPVK7kDJXfjI+iLTWZ/ Wt2dMyhY4zkdTUvEngR05ka1NAEuk9dBzYDf6jygstAqJ7lmf1tUql5gbX8WnirEFwinjh5ssVOjoST0 blEaSKxdi0Aqu5mEXS7vRqNuEAcAQtcxVecPz8irDThJCfGPH +SwFEg2dsBggZA8Jplg2cnz8OCa6oo5+S0v3V+ i4dAPPkaz7Y34OyUz9v1JGPE37dXkyTAjJ24xNlfvyuvb54Cywoihkgyvx+ SoGGrgRPDyR8Wq7W78NZE9kowyUiCqmcX7/GT7apyshb2mxvBiCf7ogwYT62rfIa/ pHCa700GQ3UjPyre+ SPl233iRkqD9bHbAjWh6F3fbfRElGF7kSw65d8OoJgG49sZ73elAf5oyFF4s9GGpJwcBP3HAmD6VyXa+ ruWY4EjeFIpwLG58L2vlDTrr82d4mMa1pKQhdX703Smh31MO5YbqXs6EZlGCloY0e0lEvia2CgmgfFA5 TfvnpoSjetBsX9AKgQenYZDpH4bhtAx44JxHr6VsphlxjcbGo66orBxMonZbf1cW6cMPijjgveap +jg94p17e2zbcMC7kr1JiYcoas2ule6QuTM75f20Ts79eY729sv0f88+N+iax6TfvtIu+ qrJR44HXpevQClhjCHywC72KxgGwM4r0J/eFfkcj9qCzlSjc9RLBSyYFY3Q/GRnu9abcC44mVbBn/ YDkaQkP5OyPjlgOyl1anZm71nuSWG9fuwXJe2fzIiufnMRFYFmvzv3/Rz/ lFgprWWq4A0PFq3E3mb9fPi5tBzfPA8HLv27rzK/kZFikx4FI6Txy0TbtBlc5groyPXA74p8qlXll/ YJLnSLu3/j3OkjYlMkii4B3IIe1ZAMnYaZx68/lr9hQhpeI6ubujJHABcmSg0JRj+ 7WApu9c1qWxKf3JW7hpK5oW4i8EiG0b7t5lTj1+ U20CeKWzvBkL1n3mYZlaIsdiFQ6qzFc9hOkBcqb18hszsyQ8EhcylwsPod4d2HoQvL7t53RswBsGtrWc L1qyzmqVNm5kwi5e9VupZi4XN05nRjtkVaamVpjst4H8G10e5E /ILk6yHXQ9eOXFplof5INRcdNJhrD2hURBCty+0+1s5oY/ sFaQssq54ir69Sloe8nrXbS1JU3em3Q0K5sFZtwQLvcAborpu7YnFHwOD3RGBVHxjhilChFifHN5VlJT xWgfbzv8Rqk5Oyn76vw9iIXcWTr9GpkuHexiD + 4Q2AtHUzQX3Mava5sVyMZObe6YlVr8IMWrFLdQAnyMFx3uI2shg7Yh02R5A5heCKjVg26WZPqE83Gs4B igVAlekLwU9ss8909wgV85 +GZZnIdztrOmdgBNbLjPkIt03JGONxnepaY0aTtTb2QITn710lwGcnm3GsPSi2ph569arh3ABsG9E/ v2sA4Fu9Wwz8yhiIlnof3I7cuJV73FMQVW5gpnCiMe7itUqAAVOmcpm3dzOBHgi0doy9t9GhvLN9g66I u + Nyf9WQhi6f4pl9ueaM8CaMFRCwemy6eA63wA1jkmM0t1Q7aVJWo4aIackYRdxkVe6l5P4z84h182oxT3 nqrnon7EsPja4kUOjWz8vZK7Hbd +bOOsNdX1OrWE81W5rLjyda8x6mziXvaFqtS7pwKybYLrvRlcxa17+ZaetvL5+ OV2KHQx7rGWNcFGvfpYf3EWgUaGQP2G1tBTyCRA2ZG94KmvH8L6zr+ lnbbsyPDQ6Uk09F5XLmRF1kccmxdi5YQrxNn8cZVnnYP6oJkenj5MUZNPGk1YWp6TZwnvUZTu1t6TnGJ w / nFm2vosj94C9as2YH7g9EQzFZ6raQoJGjdmc013xxlPVSNYRpyXFAqio8acz63uSHcFwT6tsnY0HlxH5 W3AmOfT39v0Bxmef2K8uDAeHpnhN /0MuZlBJzm8Owm4u01eiYghyWMGEiSyE/ 3LS5VWRCaYkHj1kqsfwUDhz02wbz8fx0clJeA7K4wqOEdThCWWzpY6ghmd7QpsVPQPWKxuzqAfIHQxKu fkeeCVmUcyzx6cU3Vp1rgX4TgjnV7huvMm7ys6IOFnrVM8UTCcCzYbhO8jXgzY81HV /Kan/RHfWeF2hryizxciRP3ce4OIuo1KleszroRUgMwGMs72aOOVK5vQHqFb8gHHg6tJd+wkx0Lprd6d +H1x4b+z/gPfrhVKWA0r4o7Hah3k06u92TLb1A3e8np5hsE/ ZhitKxwxiL3MlOYaGjlR802nkxA21cfhrkzI8rWF0GoUF31XP0Srj1DtxhdhUytT8Urn751S4m4iA70U SyFZwe08XUfHPo5c0bny9i8HlLSUORZm1lZmEueQwbpNJdttIqXobWp40aZKWei8qaMO90wGbYZ13Gap HrfAVm9zymhWtzWx Ytvw1gwh05iLpY0bKA5GBk20ak4kM30aMIcVf1yC1Owl84Fdky5+0YV5H9HYDq2ad+ jleLbH2jWNEuWGihJjoZx6LQCRGXvvHNllXdgalm3csxgXArIwSWUVzotKZo2d7DCk/ F2JrLJ70g6vh7RoZh/G9313JOXdA7NtzESBhNAi3e6qPWm4HJNcph6yTfYjF74zzK77zFaw3R+ AHSAf7isSqluQhl9Gvj+ XQ8EeptF4jAEtQsXILFF03mjyXTRmpL7tc5BukBjtLUP1fa8krN3smqFM5urpzsX4bsIhdtpyFVrDaqD SFMdkx72C12D5A8Tc3XbDPYlnW5OJVfD5neSvoFhiux3kL4qO3 ++gsiyPKm9CXOmsf9AAloSOI26L3k0DeIY9BoHG2Unw7a8buQuR8Hfomj4eGaN/7RL8x9p3mNpR/ aNjwZK3Jy8S1g9XNfo0iu1Pds2aJ0wcNY7fqhaDBRfyyxKN4eRP57R/pJfMo7kvPzp4T2DqiK2A/ fTBKC5CCeDJH5MZa9WjCVHf2WmBF+5dDPagcEkNOu6VdNkpuKSShk/fBn/ pg45L9B7Sy6nqjPOyjgsw2Uo50DioRmfy/C8LQToYdninl9d9K1jX50oU73PklcWvOPguv8n/ uYqSw2h52xVkaYiXbcp4hUmNfFCGBQkYjqkRwRNM8jGano6rvL+ JfMbCPjH28TJzvXPRAQWPi6YCg2ewg3iUPf54ae06Blx/ 7l2Wt13EBcUPOpnj62HcnDJu3oUJbxx9lNa8apwl5x9doQjdm9F322/C679GLOJ7HiK2VkmS3jwZQIz+ nAiPBc6N9YkUsQapozpOQFFiIkHeEpMLNqQFQ+M/+QO0kb05D6tymVu1rv6zXSwk4qLox4z3+ Gonml6RL09u/qcGUuorlcBaVRdVZLciX0TUuPnyjX8+ 3cmsklGyP0gq6R0x1oqyoAjV0zTl9xczuMY8SRISUJgMgV7TwbGoe7k43XPt7m0jLcoTP2P1L+ qB6vfUBymiYhwN/uqVGKImQ7J+nBOfWMnjLHPGM8//IG9HDHhgdfl//X/nmc3WFp07/ Ex8wNC2K5j1P9ziRSVa494/L/QoBSHsW4AHmeiF5w0THrw0LFScw/vfUcnuOexxLuGM+ iKNZb0WyaEs2cOqkrsTGfonVpsk0a9RWTdR5g0rb6z53gi1Vdq5Bcjald/P19O/ qWbJ92N1c1I1J9gYi6GmbTzY03lxcL0PVC/m1Cgxhhh9sLHbum8H+4yfvTsjVGLAF5R77hBUN/ XJGOmOhFbU/Kq8si14XcAKuwalCGIM1w/rpqw8dOpurFBQm9/z7+kEzNSwhs4eHkJS+ FZbtEmkNQlYCdcmUFY7TtnJ6RQyudd9VbIX903m5/Ppamuhv9UYLxSR+ T46LsyszuKLIDmSQbDVxxwHgKAVW2oQQ1dRZJbx3u78qkv8Fk+LvOxpZflf3CaoyzI/ fwp6Co6kNuiaPscXvft8SorOHi7sAPQ8kPD1LgGMPXlPA6YbRsUgNSOi3zw9gOOI8peLWo4tEOsBKVhJ FeXwq66YaZt705r6d /OTrzpJSimXQImpOmpPYI1NRC2psUoC7jiezEgI+YdufFRFJPnp1n8LUoMk8ijIB6UDCQNKCYAaz/ DWEwDPN1hY0nBq1v5LIdar21owkpwqvYfO53I/ yXCQvI3GuYqdp0xApNqShtU63DmNkERuBV6dOXVZolLZQaKFKxctImAYU4T85lPTfsuZr/ DaPxbQ1K4NYsp0UokM86QRstXcPqOFPTd6ssTtYydQ5XloT4R6RAP9F6TsBJvaC3rOzUnMgIzoN88y2U uoY9r7ir5CJ6Mxljh3 /Rf1+COg6kiXvJbYUcXCxpoMpwvdYTGvZhjxQ/ Xvjwn51Wg4oAZdKVcPFH15GrwHKVoEVduvC7daqW1LOzXRaIalB/ EthqsdhDY9VABi3LcPYLxylIxI0spedauRqGIKqaw6TmsrtnYbNwm/sSgiUjoJ6zTj+ LfGDjyyOtUxkBZ2Xhlol3SoOV/ Mzjc6hThn4nhrzyWAUzXTMFQ7ogxyEOZd8BMwJj4LwdghTnLMihXam7jWREYlLB5DCNGT7bq7RvDcIKe q53tvTmcjRpqprx /yJS60AC5yrdZ9GuNdLfr8BAB8tWo/ 9CsDuIZqyOiHubULK3WLbhwtXqLzMbVOOTUPUWSbhfrzqquWT8nH196zii9rsj7fHbugdHg74ayWD+ lrq+p5/ pQ88Rg9muLbNz2DOT0HxUiWlYOe1F5hUAFLsE689iLDjmZ6l1I743GHSrnEquChfZxyPBdbX5fkB6Led vJwEEfkohN0seFd2zV9SKYYbnIJUspfVYZNic6TkYdLo1x3jAWQzXhphfTSFOBFSdQ6Vgq1hpYqSQ6B YY0FLWRyuesQXmwby7bloytwKHyekQpI38Es/X+tte+ fn028aYJWPyhiewkauB9OjEnOrVkrRWyZ1iHyOHVcbGcb22xovdcOsh7qBzspqdHLQb7qTDJgiwKFZK+ BD1ZkxL5Xo0zurP3baorWIb/ M1Kxc2VcaZGli94AigKJT9Dcy8xvuihl37tcUIB4vnKzzd2uwlxwsAXkbyOsEwGqlpZlIBX63E3l0jp2 q1ne1n6WvrxXzp8Aaerh27Dp33fpyneWs3dxrDYYTqfJHZDZHzpjMMQQjnPLWZVxfl9 + 56qLWEy9BQ4GvZxdar31kjh3VOYzh7bbrQctyYIcPNESh6hGRqrjGXxqurmDUyXWw8gVnhDGgHOfP5VO DZVIloMU67VntH7ezAlaZcsXGbRD2y6Q6u7wgzIa3dKjoSuhhsdJ /PQkUzzlhRcPMeqP1v9h+ gR8He9IoA85PvISfDysRYcE3EhnMHjAHmFglValsjVqA1qxvI1o406gB90JOXnq4v8lp2tv20L/ d3dZfg63v2VtDp2sz3i1vxPxBbPF9gr83u7JR6ThdLDgDZpU0fkM7I4DyyROXjPv4pTf/ MTKFeg7qVHS1/ dh51yjn7I6TN3H7J6FHnDNyVWPrplslKzhzUwlObvINaCBGInT346v4I6VaP1gWsL0dezSdG18rsH99j cGVu70mtsbfeuHyGMJwsfScXAelFeoWBIPfeGDEWELaeTYuVvx +Jtah+9sTw3vwOC9TpfloMKb1kfIlUFlq0tghqQqCqSrlGVInLtEeCWCg085hEiHHWDL11bwQ0Eo/ 6AkDfyevAhmgf05q22pDxJVRAne1uA7Z6YShbDkZ+AxqjNIleYFCXHo34PxJAlqHqyxgg9iC+ fQvjmu2K5IePk1UKYzYVYoWh1zz3UOMu0Mx5pSNtrXtqulXXY5GB1U6CDcnV3OEAElNNzNh/ qIvifAt8B+AvBCAJeeJvEi6/xcjuD7ly0YnUtCeFk98dWdQi6xWWgVQ6CqGOAb4/ qHCVf9g5sFzdsecPPoL+4xPmofmVrkHaEseRQsygQXc53gugImO582slw8ntb+oyZ0co74+ h1I8h3ztko7hP3yVkof5H2wuvbfuRHW8XhRWE4XsmUGP0EBQuReXLcZm/wBO/CYwhvpGBZRZ7x6jJi+ 8jGSv5pfITtMvUXGDL0aKwBAxfTLt45JvAcll8vbpCzKEyyTsCoOgwEh6IRAKxEKxWCRVTMCkSTDM6Bc NkVoi49RIIvcWahUrSCeqD94zQHsrG9DixAKeMPvjoPZTKfTXZF +he523cvfgrcgpJFzMceMkrsY1df/pYTaIO7Cqwxya5N/xAVVyW9Al/QT9vjt2BTXMAZm8mT6AfFYRe+ hlekct3yi25r7F/V2vDXHtzheosaKZ/ KDcasjyIz2aoUKZ9sq9jC7wA4WUWEj8yC99TUTVakNF1ZT2wDAfzVaKDGXsYS0xvkcQwQexNw14vyXZo uX42Qurnpbxh4LrxccK3zGRCIM8xnFzAsZubdGah /5RWmJEp24+cu7tBj7fPvuTBYCPLWDU0rczI1sceJZI3BrET9EygncQ/ zKeOffxgFp8vTuKJb8tl0qz6davRoBhhocCBCC3WOgbFqRnU5WlnlFr+X+B/dSpRh6Mi4S/Zy+P3iDQ/ Tb1ACzH/ vHNd8KjWTb7f5waktVaveBcbvVOJ9ptsdopt8ssUiFyMz8MNs6pwfxefBbspGpKJj58GOvX5Ws28oyRi AJRRWwHpn1hU704KYl5nVpQLv38WVrRmuUk1zo1w /4Jp+FX+Gp6Ydjy/fmjCG8XSW/F/sVYazf14XhRc+ SdVW0yVwR63EfLeB2isvU5q56vBUnyxZEM9i3dtNkm+tf3brJ20+E/g+57G6ri2yo18lWKmpl+ rAJCLNFeil5rwwcvnMJwUzOoAg2tfBicSVPWTC/hz/fX8gFlX5DcIs9rtMGc7yEG33Y+ PHZeQmaYWUsWZmeLFkPU1WxNq9vZGPn1/Nf9l6E5V945R+vXnxxN3h2uwYUV8hv7d6IpCRoXPecqE+ edufZHB6PqQbTJO7mdRKN5vQCZiiFlqyXDgCbUODAWdUrrj67JdQU3kZgPaQ7QRWD3CRwPOZSBLsuiTY yCF6VBSVQ3mSoUMOIbIGc1jmDA3um9t1BtO7Bqkn9pepAiov2GW3vwItLMdRnGNyzQDQYaSJkKXdTDHG Fyn1joeDK3UY5EAX7ei4w9ysKKP5NjRCa5PnbsNcWrrCcn1zepVJ4mXLmqrCrqBYX4Cl7xKIzvT2JesL 4F 8DC9u/DViIJLgLbStHczNb+SzHCPNLhVIVvnMvJBy3AIqLtCp1QnDu376SsVc8O+ 1xX3wNbB9kIxdFQ2hlc4VEzsON2lHMmquEy1sYnZmy1PTbqFYWfk8WMocABg7GUoSmgdHy6AZYhDv2S7 cyq5hbkr2DWGLXsZKciGNfTMf2PkChJOvcN9TfdNnzW3P2zKvvhKwz3KfZaLgHkNSGn5Au8IY /o8Yxp0duanbDa7pS95LxfUKT5odwFavbFxd/czb36GvEEnFJlo5s5I5E08V4eC+ X3lwKf5jOId7AOeEqDsolFnzATNYmCLToGHxq4AJCz4ro22pGCIQ4PeRBOdO3vn7t0RoOvzFvo35gyf4 jbyi8D8SM91CFr1m4zqNzGOCxcvjm8kzx8gWsx9f0glvAdOqghAJhyLwQEs6YkXrYP7ipo1x8oteoCMV tCPk8NEOyy7gsdjEyfu913bj69p8S36tyhXjuta7Gy7LL19j0ue6aUoo4o3 Yauv6r2actrS7mrWSL76ruegzOdmxKHcPsNmAeOrWGdq6jBLQJJhL9ew+dwi74IjYnpvPWmVXT5ubWb+ XcvC1MdRGd8sj1fgRGzv00VckeYmYmyfCXVL9bzIdzbCf7xb2NkQ9BTYVSALuiL0bx0CaqWqi/tOWe+ q0j5ztQ8+1yf4NxlMkhmQSTKpKnFYh5wtPK6twkcw0VIj/ K5LspfDjNDv9L2jHEmV52vrx6ptzvibsuxzaHj8aq92kVditW88FehDgmEsYqAvmEI6zq/ W3h9jZIl0yw6JEKI3v3PfrqYJ7nnk21HgwHQumVuIaE3Cu87nKAkXIbhyoyAY8ryC1zgy4Twl/WXuNA0 /HMqCs6XjnmSIbAWFiW9cseCxJmDB4Ds6My8MAkXwm8XJopeTdV6tQP9sdS0xbfI/ lhDMaw3e3R8cg4aIoc/ shJq0A6lq8ATsUa45382EsxgVJxiDdOkoQAvNN8xQbAPdSNY8nrg3l5mETiX5HzxcppbSgL+ zFC8r6lM0693gA4/4OUxJ9xIXsBKFYrJ3FvWjK/IZPZp2F/5T1z7l8D3VkEa07apvSq2u6SqWCgA7J/ pFnT9sLQHU41TnuNLw7k6HF8xNhqnGprGEqyqBnmc7CVYteyKNBE3eHHg4CwW76aPPlw0CbVhlbe9k0l py6l33s /V6nwj+0l4v8X+C/ida4cznHhB2/ YlbHfmQBSEaXvTBrOkmenfdabsAhUUG2MIkmLakB9zeEtZMebmGXFAM8w/gHT/I04klym+ DTSbkiAjK9N47f0dt6EyS5zjBA1r754Vcr+ 34cuR7o36Mq3B5r0GTiO0rdpwuE4Q81bvK7flP4bmW8Cefl2DzIgh6NnkGDfuz+ 8h0BILp3NTDVGW6CIw6GKUFXXFg3WWU7q5v/tFeN/C3w88b+RYU2BoRVGYEfto/vUSoOgBk20YyuQ/ vbM7Iv0fBhVykwgt31g4xdA1b5C8fkEtwzJinWsKR0KmtK4+5hrpb8MNdpkW7x044/ Oe3fx2Dgg3PTSJrZGC1hlgH3GS3bo8nmHyXgM/f4vMNuaTwiFkKAlQMDXthq/ pdd29K3ngzGl6hatNnTltl3VXWbuiotjqWmR4gTY9A/ s9bUBboPsvqai70JO2y9bEukH6xYq05hauj1z4X4036OfVSBbPHvxwm/sMUxo1jibk6x0/ kNOKZF8Sk7Z8D0fZuvejGfj77BI80xZTfIpw9jTmxSDViN62aZV0lvNlFqfO8mjbioQUZQd+ EwXHmQ372AOp1l2RGIS49kqeDu1eOQT6LME4rto7a18NQA9hiEd7mEiu0khDBi+E/ nSHV5L8XnCTDCGtrXjG49G31i/bqg4AojvFtX/1fXRNJpdzeXGpzaVdanPaW/ xImbMID2oeae3o9WvrWxnjl7RL33XiYdx6s0Q65CgMXShQUQ6lEM4YGG0Al8juvQtMlwgcP22SJh2VEc svg370XOg4m6bUUfidqMS6li63vVAImevam7IqD7I20ivU7VLpEzxs3zFqFoi5fbdJjFLAYjLrqDwWZO t0bCUkTCjHUj6H8 +Dhmt31qElc5K7pfPPtknN94JrlRswzRS6aclP4+RmtwIDJ6/ fiu0DGfaXYvDi3jbxfGq46HwXf29b3zPFXDYvbzvI9WJvR9qjSRAzoMnlQPMC02I1cK44la1udcuOP0A l3mYtI5jqydsqAKAwTccPCiGtQ4tN4l9aAoehysK2XEpEVPJuDmLafBrWsJak3m2Y / V2duwALw6Bt5ghUggCQw7DyxwAJzTc5pXa8OP0Qj96rzwzkXduBfhMcmeXpbfoOfOBxMqXc4ppI848Hs dDPhhMKYhceP2HFm3qgQpp /smBnX0Akgbx7EygeCFQ609ri8xT68bSN1yBKzZgr7d1h9lgbfUTdqOH8O53eeMHzV8+ H1069PAH2AwShD+hXimBlbQjdavsk0HOkPDaNiRM8LKb9vP0D+git3e/ a4eol8MHVo1LwcTZiSeoQxj9mbuZecmkyLW8Jqykv8Pgily9KYFig1O3pdYj4ob2ms+ 8dt0D26u1xlVUxuVKZwESxr07cJsZii4nPcgA8Lar0duogo77em4kH8pcMyh1UVH94t2uk755IMu+ tVZCwU3WsuRVLds3lY7SM5w1eXWgafpch3xLhbf+ NbPKM7G3xKhqwzrswMJoJ1m9iYwoERtszuOL1Z7mG+1s1JeMsrEd2RefhvT8SEcYzhqio6iMSR0V+ kcK20qT263rWK9d5gl0ygcaysVm4QbbXdCUB1aklvKdznHmXtcSCsx7vxUghsnm7S5KjRr+ ErmQHGFd5OfJbWuoMi3Oqh8K29f3Pjdr6uMxbrseZexR/ iKpSUCeQPdMGuyrgjtkcVPbWncJanVDyvea5d6gRn2t6s3mNRuCQU812ukWqoErds0vDjov3XgzpSyYk 8Qsno52VDQGvHymwn52 +fuoipu3xT6bapS9SRPQFpGUoWg1TGjFk5zi/da3HbrrpXAqTFkSGc+Glvlle8e+ XZkQ1qqqfvpQEoct0oUBsBacZgHl6nTK6FbZyBnxSp2LpX9PXT0lmvHj52ogm8mEJSlweL5sGdq4asRz 6koT4WIvLdZc24ZMLzkdOD4d +ZRWzC9Map+3i0/H8kgT82RONk2OgiBPLumQO2r7ZhCaJn789LNDCQJGgpHeK4v+ yL2zksffcJTgbRf3puzzXgqV9k0qgtl9ITqm2eiTJ3pNnrS5jB8C8A+TqULQahbanoGpTa/ zCxfaD6wcIrk+5XQKuuKi2fo+2m57ShXbX4/V4cCyjIoCR4obuYB16YyvyiSVV+ xd0j41Ei0Sy1xckyQYwqBe4JADraRGuMtZ635SolKByohvgd5LCvvXIfI9D1uirfBPRufK2/UPFXh+ 1A68od5p/L93CbgHf7rDePKSUAIMMQsDoWIAanmb97hgUhqpYEGoTnUozbyi0cKXucyIL9yjqpb/ RRz6QeUQBC7s0Hf/gxPH/avJs3rUt416jo6p/ykgkRdPA6fUE3uQtc4lY+j6JnM82xSu77zWmSi/FbxV /wobFmOq9EcDQi+KuHIzSEJkbvgFoZAVoLUvP3uMqn3yfU+ 1rnBV9VU5hxVbP57j4vKNuP21JmmBUZ0fPYbI3SOx+6gvTBFf+GobGC/0RM3ScABMOU3+ fcg2xU0vvdZI1U1lq3ypxI8MxHgFH5eSknWK2A334Dxtjz6i2f9SiPrzYOGlZOPFDOLe6YZUanHopkbn LOyQArI61Z3E6t174BdL4yBtL3C24tsuuQ36k7l7V9ZKZdmttTnXmgrhyLe6gf4Irq6hCtG148l0mmB4 +WL7dsjRkNd2XMhk1K3DXMt04fXAb+SwXipFbmxMA3Py7PNaN0F2u/s/ OaIgQoBjuyPpG4sSTaRblqu0ypg0ng2hjVyithx16u4xuMnMtkdMU75pxgbC8yaxCzElz20soWnGxqGw M1 /PuCY3fXRymTmnX1Ii75gAF0TpNSvElNO2/ C1slC3BJHbnOFren93Y8PbwgUHJNUwiJe5lwwg3j2nHw0gth8oSPpBmnbLsC7nJ3z// qgqr1nojsCSZ8aJ84tg8ca9x98AFIa3zkWA5YoGiyrVtPsXIWkYxBrRUUpGn0ldTh6v8itxVQ5pic3qb +MApq7kd/OY6oA9eO2opevP3K5Ha1x1zukpp4MefDERUzQd9wdsnEcKT0kw/dMa3uchrVFM72/ QpafBhp425kBD+ aMF3kkomeYxIeqfetjbJU9sNo2YnvdbEvk7BQElqnnAVrJ1n5Zm2dePd4Dn9JpCbshGJLO87k0d1O3le CUCjBC9QI9kl /axuotSWsl9LeFhCpKwW8mDHYXnsXpMxEN/b3NWIYHwBABa9Tp2zzlCqHvOUzpHaJhN5/jqke9e5TY1c /9VL3bcVplj4qh3JEB+LyVO3umFse6yM8Xeu2uTnouPjcvay3+o5kfTL+ R1fBn1TeZvFR2aR2RIvAbye0cpNBB8BnEuE2+ hf7gy39zrbWXPP8Nje2iUFdrbymphmTwRVKMEV3xghIt7tO7UvD2qTMgGBwDltntPArbGc6Eu7QsL86M z3wz82zf0PgRolCC42jMzkfRXpdktI35kvt +n2kT3m1CnrAY10A6E6Ur+M39WA3G/ KSkXFwh01811Z05nV8E9h0c84KcwfQ3h4lOYYjaVO7C0TbjhoBm6bwlvPlicvo16R667hof0wZlXKgCY fPAqsdkh45bIut6zxH +terTxkW19j52pss48ZYu1i5bOA5P1+9Yd9k3p051v/GpWQxG3qoPY1hLjrs92Q6P7s/ 8Ng62k84C2E0zo7A0QHyeh32uWvtsULul2bvasq2JduhR2hOu92ps2pZicefxv6HMInHDvXYkvpmIis0 Vd9dSwucIH +/Va+HLFIJHyDo7UXHgRRYwzpfhtowQMdNLF08sL+VX10+cc68tBIs0YrjC/ Tfki1w0qqL34gM6xkcPzs9ekaSx3bedhRtvFHMF90SHsarYOslDgeu5zAyTbUTG4OwH9EhU2KQvp3NGN 4B7u7W7Za8s5yUkB1H3ceGkFwv91qZbL5Q2RRyJjxeONwO8o8Ws2unj9qZY60DK59GNxoeQy /QH9rbw+zxalPq/rmpm4S3TWUdvNpbQnmKi4vki4lj0Ftl+k+RzYKwZTw3eMa8tGQEJx8YMvM+ n2MvQwMdzR8Lpgw06rWedjpW3MFhb+x6sd55A8pX31eSKI3W022ZlC7Wo9962WgqnbdgePOuW+H7ywW/ pxAwxN1WnbaoXsjLi5HMou5ijmVIP/vkIWidUMmwShwQhLMpk74Xj1xPviG1hR+ 0ljaxUVFITOukhB8Uc5RKXLZcrp92zfDjTwIGfCPv7jXmksXK7ipUd27DI5/ zHds4s7X11fAKOOdd8gjIejgDqQ1fxbHuVMm57Zq5HeMogUecnLEhBJou0n+zWTFbnNv+ dnax5O3N4sutfN/e6Z61c2I+2XMl/ RrRiHy7dAxHWen3wOnPXIYNJCWgTlLIqky49ofyluyTfKrezPxU1jwDYdgR6i4z625te1M4N621Q19w7 jxe9Xtp +HTfD/AMW9LaRFqHsu2a169m3fGnn2fhSIHj+cLPPTDEDNwONEjx5nOxN+ s27JnqB5j4zMFoeQcEZqskypi4Q6EawRQsZz+U4nXy7DCRriebCUiG+ dkEK7AheBdtm01s53Vbs15dFTO3sbXy+ n3ub7Ude1tem8C4By3sd27jwzqURV9PIp2tZBUpYWVj5zKIUkaRPneZjTDMPwpgdZQasli2cI+ bPAOsRQeIfC/eeMmYIV19j8P6Mv8Csy/ GtrfkpEN2mYrlINnzbwxC53OsmH0ly9fWZ2gpcZ6y45qM2BA5UR52N3O5GwJCjH7I5mPplc8oxWLC/bS + bpT8uVkMtvrDuUYxsVXX8AHQirzkfSJFfKLwO1lqiPJepvy7K0P9df9Nt236ryKjGse4g2eTOc5xIONC zbW86ETn27 +Y1ofLrerSAR2GOkQd3CsJE2u4IlG+zr42+Jljp3i+C+9bUx9bk/ q9Sf8Jji8Ad4D6gXf7gbfCP9svltumSbJXY27RvLNdz8cbclwAn+wV1qTGbXTo1S7hO1O/ATl4jttxo3 /IaZ2uQRIgAHbaux0s1VKlXT88lHpj7Da2iQh8btOr0R7G7qcelxj+L7bwda+ VBWecHmdz8kyGYOxwpM4xUtX69LPs2naCUJFOmzvu3a7qqLooVQpzJmF0JfEeU3y9UHR3T6lTRPhrd51 cNQFNbr9pQVh0URWnPHfyz2i6rssV7Y5L8D3v40p3AqdY /mEX6qkHh+pfFPwp+E/zKCbyE4U4gsxur26qTrMWlE4JoTaTi63E9GcqItA+ YEAY5OccBn1wj3RZjdMdNQxZw99D15RdJzaUKyU5la+ZeQEuuxrrW2pq1V+ KCiPn71HZ0E48oMFnticvhmEjG7y+ Fd2SMRjOfcJ2Jn7PhsGh1O8yafWXM6XaFCO5IPvcNObE6ms7TJmPWcziIdSsQro7cH3u877iTv4eARIq Po1hiFwEDx5xIRKaUh4mOHmaa716bOqzmNnP6S7ldVy +RfYNji08oX4G2uBiTftra79GtJ/hNcL9Dzu4VHs+YYm5xnqr/ vmijzKjQqhrOD4ktaIEaUeLIgo2lOsmpcGjWylozqxFBdHkJRx8N+EfEUcOp+ ReqgNxCyF4u2QkhXe6vlA4a+uAPrx5MKHQbr+ 07dqw8mpyKtuZAk6D9Byl0Rq80jR1Me7nP46LhSy8kg0Ol5vlhol6FlLu1xxtrVhtpHlgl54F2Ro546z bGZ5gdxr7JBFy0oalEQyHwBywE0wiGmD9iq1YQMaX2EPd2kHcoue5exLkAc5jhVE9j / XNbBigsrjdSk8i9wFCGOX4fiyK5GjvGvcv6cVgXN0eSZnALcJFrI2xV5pcjPXgj39ERqDme12NyLcaZY /wB/XGINdwZfAChw43IpeLm0GsMDFgKWY2gB+H0K+ARqHh/W/Hnhux+mCBY4rIrydsrvnw3Nnu9oBov+ 1N7i4r30n2g5LBAmmgpZcnVp0cyz6N1I/wQjLOC6c39/XSFHZ1yw9Wov7aESJxgtEgWPXPriTs+ yLnxLjt07I7yKGcu7wpFSjfoRK0HZg2n6hX9SlBpno/e07k8KeD92SitA1roxV4PDZW8y+ KEejf3BE7fua0Dt2j8VfrYYu9855svmnMh29DV3R1I/i9nOnHn+ G8xW6L5Icwx29uYQaHneyYsao5zm66XLi/zqko0m9GktqzaclaKR8yRjghG0nHy1vj45l+ 99uj5kYCH1srBqAheQKLu591T6hfj0u3zRz1qj7zL9xRlDx8ckZQGmNZIc+Cp8wptr42ihandm+ 3gNUkh349aV/Bmtz+ MG3uWPp6WtQ78uYj1CpuIFtIyj62iSVC9gL82AZNeZn38a1CPhJX7gdKewvA2Z7gs8LfdWW8/8L9K+ EHjf4l+P/K5aaN3IAtaI1Gf6u9r0gTPbRMpSIhJZhTn5D1cyUafwBhvqT0rX1fOg5dAE+ rVc9Q9LdSpWW+ytvM2+KPj/APZ8+ ELrbs0PAknK9vHuYCD4UmkH6q07p40r9QGPn5vnirjscWUI9WFdV8U1n1jgEmuxiTG8W6x0TAy2Oth6V 8Bam8 /n0hhxUDuiouRMx+PXdU8N+L6n5HH7h3NKCggg9O9tekh2IHU61/ NeqT3tJdT64Dbi1SpI7uG9XieZShMxww2XqCgrGYGARgaI3j8fexlrCoJHCtD0xyZzqRaCnGPABOSDiY TSSvUpyjfmqpvW /vR+ZQ0ad2ofIFLdr13wqr9+IdJ/W87xHmD8g8/rtv3oFel+ FhkTIn1NmNEc59yUJpptgTixYnCkimD2Qx8Lrf31hzmDb6CeQzYjGFaahtdl8TCHMtbLxr6KwxwDVk7F aEi8C0kkQVC +5IvHVYkz9I4WEiYK+G/GSubS4129KXhadS7Yxhie+yjvbC2WefQcDyhlG49+ cMpcCPbxt4R0W9SZlg2lQ4S1VwNe5mcsBHDFn/Ot1ckEcG+ zIeOxkkxxTnfyRnYvW4DaP92oBq2B0O0w0luY7p0fF+ 9aT3j13f6vD7n0QcNP7ZmfSJfTZlD53Y4GsJvgcPBn3QzyGs7kxZP68xP6U6JqEtFOKqRPS3M8rXtHn7 t / zUc4UvJW9ZL8z1548kaWXkl8rdAqpcwY07bkd3cyg4xqb50edwor50SJVoMBysa3pqNdRCa8mN8O8m4g l7Ky1f8orpGcluTaY /tc7Q4l3Qw3QaSl1EkE/HH/RSxlmd590omunlZXt+qQaDDpeoeE/ BHrrL234dS1P7PmF60W0D6mFwO6jZUsviLk43J4ZxMQcE+Fdu/ clqqiuAoNlcAEO2Ex7r3s4j6xiEbkec101jt+969Q9tESwtQ5g+je4usNQrhUceeWtNNbVTR4o3i/Therese +Md9pgEeT5RPrR80+l5MgLGo1O/qGRWWCxzswaEvOGzqiCmp0vk6JNPdTtCqngjEpWIiU7GJ+ 8cYAA4z7Qcy291r8MB6SisL6DRCYhhDwjw4MUx02xViF1EihcclAypYts6uA6k69KpCI6qjsdEbL8Y2i 2SgiX6VQwDfOC1qCglHtF5z26wmtx2xza2 +9zp2vwqusdZLVdIeHR+teaMzcIbqezIQWAWqASNuTXa3qVtbTQem+ uZ3WnyXYQjtdYTv0fg9C9E6ThcjWyfe4S5ou/ Kbc9bsLwtT1v7OPv9nBLmQtkjqMPWJjdTUNAdXmom496TChCgCYB909rFys4S+Mz32o3+p3nVf1i8dHs /4T0y0kyYdyM6B9GKb7kvysl49uScxkSkeV1o8QNUtNXqWd6vzaZrXg6Gulb20+NttqWn+I5DwfJI/B1 /pmpXepW+xtxr0CtsboLTvf2bsf2E9fGUH9ik5DQg10melx7txDt5ndsidzxIRv9p5hr88ud5Fll1q2Y +MaPMgLN6yqPEopa53v6T+C6ExpV2abnTKr4U9ZRl0/Pt0zMdS9s9fwWNxCJsbNr5a+mC1riYRzKsR+ 42xtxn4r+oKaQXUg43N96OcVae42CK8krkwf/ NAawUBtDy1HBvfAzZwSkof5FKLpmYY0OMVit622ksJtFY1V3vJMgIoKkex7tdxrM+V5V9FB0R817B+ PtJ5qTkAaXrAf4iy+KPMMvi1mBNkSc6B0yZcsnNlgqz08BjUqkz7hO1U+yAZ86+LsUlJ1U/ TRTq4iIbqSrKL9HLwpJafsGOjy45K4K61GqbUkxR95EcdR3gTvZy7IlSc55Ktdt0s4Q1mD61oI1vI07+ UXiawbHiRT81B+F/ I2qa336mEXWv2VQKDfJsQTdUKmHZTm7eEFvdF4TD5ql7006d5XjvRIua3v1rlXTreY1F7h+ DFzZ6h05nE27av3ld9W9R91neUYHJsxoEd6h42wmn5p5iByNlH8x8ZkiXxQ3mK+ dPKj6kzZPAgvGrMdwTslFNx4vzbsvR73yexJkhIgX/Zi5Xq0lf+ c54VG29FjOgZqJmxQh0gGTRKwZ6txablcXO68DzIAnnl9dZMvuTnzB33z9G+GNC0+ W99MMxqb3K2HjbOj8BfAnmnwcJyTX0T9pPAfZfyNhvCrbtxc4mQA41c5P7adbYtb7etBsWO5dTX/ zc0h75hsWqPhpCICUgS4T5+ kY6a54jZrMXxk8wHz4IQm7u80m9br41x4bySr0q0vjIRBRBYHoaXETRrlcQ0xhy033WzUrkmlrkbqwh/ uBZZ5D29/8XPesVrQ4IFcI0Fr8tuCFFmqyE0klRLOCnEJr0tcmtgpa1zg0M7mb+oi5jGw3O0h+ FJj7RmSnlmWbWjgoLXuahaTgmHrm8UzI2nw3nuZnna2Mchpd7u1beabNdbA8lx3QI5QD2KTCyxCUXEeB Xbx8NN3mZx5fpw4FfdE4pa7yNTz2Hd3Dht8mxgTmp6jVVJttG6bOZ1AsRbqKOngtqaopp4M53jtLDZmz f3ribtkEO5d16 /W7YT8et/ZelPXxTJhBEoeQPEmw1sYfIRE89nGC24b5gmpupKeE+Gbfw/ nxJiSeOkISp8rk80rjFBhROTIxV6g0qAcaSEvOyYRlXAhvsVvlbTyxhCIk3/ HDd3kAulV7kV84p2St9HXaz21fDW08UPfTEjkHoT31IUVOKU3h5Tk5OfsF7muQbZpk5GDZoxgf6vVVr+ HfEGh+FiY1nxttcAhf+ RpgFGOTyyiFdlkp7jwnpM35wgJaKLichH7DJubcY9Cgu1LFtowiqOGK8ABIl2m9po333S53X4mg1+ HT0WVglHwHVKS2eFNQWIT7RJVTqdg9nDLBl/eSP0Y1A+8CvbHkKogbLqAj8ER3xuLH+ a4OxJboOAd9JuIzq9JPyqVdFBpjgpjUE6VD5zEqyZQvWmRxss2ho+j8n35bwA1u+ Xw7ovm2D8Qfi0eLfI3w+W4uaBg0RTZViKB6qIj3TvYiwtWoFrJty345tE8aD54cdi9/STp/ xD6GiU0jhNy+INDvtTuYLD+ j9mQQAUmtzb4EaUqOzsy5chaxH8GuLQxn1JdndLTrwCoh1UtyzOjgoCgqngmaWen0hhs9F5qQYMPApe9 P5m5uCr /q7CugAIc0xdukjMmDybenC+0e/0syG+li8l2znFeJZrv2ys3bibLCthwEfOkg1qALx4YgsZP96xsg/ 8Ah+v8truZBWRjGjFlZOAWH4IH8PojZhjPPFeY0khGqwqxb1criBrcL4p+ N5zcx92y59pNg5mzPqf7e36Ms2A7IKjLyQz0Idlsk0QiDxgbbyFJRf8eiKyiZxscTvbyXnB67FWekXDZ OJu /DUaqytn2fYZj+ Q3sjdts7jMChikPF2Ow5KSP3BbAhjJsg8yX53322aduNDd6hqjSTVZIiWqwjpL7q9itXGF/ a31Zj2azV415m9B1lN2fQ/4BSInFvQjb1tWGW6X7p4bKw8pt64N+0f95sL7n9+ 3xolvGycsU652vG8ocivTxsaNJPik178dXYa9dau2F6Q0Iz/XOs3GxYftB62MGOq7dmz4pJ+ uvNIkcaKsY2I+YiE3683vTGqFkfdiuMWnwfCqOqWeBo+ 2ib7jT6wcQOd9lbQksNNKScMtJMzH62VTSKTJntduGpHJJPf8Co1Oz78t5H5vdpH/ HilO0o8QQ2N5aCwbNp49kwhV4qg75ofcI0strwusD8ywYJE7bPZQTH6YWsl+fdRKgYeF+GvE/ oa62lZplcmmJ+VQfl6tI5LshAde4EqU4JY7UGFsJsM55Hyj90f9JeoWSxqBCpSOk7XtYWtD2I4U/ Hqq59PBhD0cuLipwv5Ox6Uh5ITrXJ451L7HXtBaCxhsL04ftwzf2pudss5OajVy63/aHFjNpfX1eQ+ XTc7v8a3IaP1XqnjFzPtcOk/GwghbCutLt5smtiJ4aowy4u92E/oQJ46lE5so653O33je+ nmq9Z2bcFy08th4yoqqsyjdrCX7q7dqBFhZrjxuytMe7skxIoevbYyHwxdoBf+ jYP4riiKnlklx4RjDgyqFZOI1dd0iikAsjgmdottlyHW1uqYWcXYdYoOJTOmltcSB9DzpbRtWHl+Rah+ 6O5irnQ9sajXeEqv2I2p9x6AHusJcl6sjE9N7IHSDJpAZqoCVEPgHD0jW9k64rMdl0Dd9VqU9jXCg7Aa F5TNA3BzY9x3hkqjdG1pgsGjGX6qmBfVv3J /k6WZc23caIwUQiettgZ4k894yo/j41KITqrmwSAIvujBjhuZ+OW+G2u+Hlax8J+ V5Zv2WaajoHjRDr6Hls6bqr1M9gLyuy4pcXEMUi5IuwFqBCgVW7QEnUn9mSeZdZ78q3q6aF30XUOsLVx ZhCpLx4SErBlGnidrM3BlkucjOlv9pYkd /Vu6tvVcGiEwtd7na4W/xFOLV3O+S1VSVnPJ1dOUCa/iNA5gwLbu1ddeRS223F0FJ55dCU8Do8UuKbqy /wp+JSc4LzGng+AZNfe+1aw06K/wBX+ 04Ol2f1mvO7h7wRmtsdEKSAdhJgZIrDMypCN94vyHBr444xpc3K1I/ CuPnt5n1MN2aK2rYWa1A6hnTO1kxE4/UrTvg2OyB5n4c7iPp/hWvUogXsyrOjtrhOepl7L+Gnhf4T/ FRmNkpkoL2s7ZyKDk+ Vg078REVNnLO8cpaid0qS66RZQjo82qnYLCp1qmeoqJ8w43fmT1jNfLP5F5jpf8R96tmvAYGUKXcsoNW WDbjysenDuwHqIOVAjZ3vyQB5EvlqNIaXwc1r / nI0d5a9ftWCxTfz5jj5NPN12mXRt5XCijek27h1cg6Lbn8Ui2DtKjd76BMEmPj8EbZgx2xFJwhyjTiGj w0 +Q1cOVTAbv1Cn8XaV6hPx1w1br7g/kO733FHSam8Kb6wGQzgdCchKYZBJLpsUTazSTP2d9ziq/ Dyf2kufT/XktrO80+HfOhWs72vMj1wasex6EC90ZOXFn5bDypBYWK99eOiBA9czkFtN4Hfn9W9Llc/ w8vT70KglwwF0oVuh0CeJ+ oSn7S6KORLGmUFYN3xv66oUjLugrn8BmHBXFud1EmRnP9ib5elrh89M0z871+RtXh2JDbDIIqk6Wwk4+ 9w96JiTF358zGd1mos9h8JtZl/JmQbu4hcS7780r6bv+ 2eEsDbJakbOQ7Ush07wTcRhM7cNnRmolQbfrMh73UPsab4bW1mm0h2DmVYsl+ A77rWKn8j9dvDaqS7qmmlJriFDmnbF4413j2sxbQ2wB/ jzMiU6jmAF1mKrfqzjen6Zto7XCk4oC6c3eieaEhvcUs4fNNRCWqNsbzrgrne9rcqWdVtSqoeDJ6d+ 0RWcdrcxebHcvLqDSR+S+I/ 1kolfwBfG8RdF29m8YxfQIZiVHxTwrPjCX9jy8Vu3RRKKgkwjvHaTTIKxA6hZuA7QKOyM5i4UH9tz4wK pm18V6u5e91PxRgN8Ty4YuttHME1AC4j1K4p2fs +9tGktFdHt+ msIBrdf4U5QYH0F3vXa7xpVW0i26uLICG2jp5SVfVAm7wwxLMgPaJuPAHkghRKtBAUZM1p/ YA2jw8m8jxhcn+LdM85LYhBQH3g0X0bKhF2kuCRBiIbykP8kDtgxPMuw+m90rzJJJFQnBWzxjKK/ pskdqrdiv0PjVNcEhou3w8TA3/ NLpt4IlgnRDy6rNIQdfX4LeyiQ255olWo45Oo1yybECqrQMQI37RTbpm+4V+T9hSM1p9g2v7N/ 0jvj95cdx19ifAN6nAHCO9c9/EaFhprKEgBlttb06vprBv7bGxCUzJKR06IqfEprY+mnayjshB3vx/ ncSsxwmUhqWmIRNCXvQJ6CyjBsn0UkelpyPcptdmTJLi6D96eoLc3ZcdyrT4UzcUe2pcIn1tedual+1z +YUhXRduMgxb0MQb/ENdR6lPBdQm3nvuVpS0WRp5SiMjKkLgv/AK8NM/8HktK6GdGm+ lrZMa3lXV6dZZSqttPGdJF3iFi1nt7DgzFxxeCrINr4gz2tb808f7dIHjrjjRM9+Tkf22Oza6Y3+ na34e+IN/la1nm4e5v6k3+CzfT20+CobtLELglwHOffThi9crvIFqgElFxFAD0iwWeLH6445xPpX6Xg+ 9qxI0JJx8es33Ga7gxyQjovogEW6T/mwWxS5Oh1QoySar8HvaNndMn+ mTYzo1yEGedgBEoVoqyuknqnP608k/XoePmX+cNLsEp1Ws3SUKIEed5zI7TfTqeVy+ 6j0UacqJh5IaY7nn/f/rZZyqy6i+ SkFHdKccFA7WKk0jM9zctvDWq8pIHx2zrpArxYSHFM87XplqWN29f9dP1pxlqjUeHGDFWVeU3cAfsdcA 8TPZs7syO8N0nA4N /6l1X2o63xCouCeiPsl4ggnnlWnDBZm7df2CkD59F6g2FjBYBND+0wQ2TybJCKyJNekkqNFPThf/ yxPJcAxGQOw3wtaVcnViG3jNUm2SkX6QJSMyOd60oWuTuTbJlFW5dmFR09NKqKJGv3hcCwpL+ 0pm0zTlbrrsdlR6+ i7AfdLfCT3vCqNG2foWXUzHAFBbWtrh4RsmhEuBnoFqLRIA3LnEPO3gcRHzoocMVlIjf6Couo+ NY4r9N9qJnVZxWPiCZA3LpeOobbQWGJMZGpBOYVvus0i7eN+Z/j/me/ kyTwoQiMPSjGuVFkGZoSGtVqe5nf2fhNNMTZqD/NWbi241/ hrjEY0E2za4UUF8t08z2Y4ynqiGu9A7Qnrb1vIeKeW3LI98EzQJ591kH3+yHuu4PBicfb1b/13H7ie+ ZSGa0FAGawrIs0OGGFoEGldMp6n5sy7I79BJv66dyImdcNFwfidD0mSeyuEdnPJSY5lUrmw6qaqYef6O ooYGrFvqZHyo9qVfo / GA6ruEUx37x5n71vbK122x5q0TTuXp2S020f874sJrP1DNRsOH0nKhAJauWZDg0khUV37Mssf5YUIO45 R30xh3THLvOvmu8DORToY4kYvvUItM6jFOyLHezySsQG21BwloQXjQho5b3T / tkuvReU4O7KRBF6Cf2Ifq44VR8UPV9eLtunh4y0LweFuhA1pWPhwcpzCOnFYYuqXP1RUaCzVDcdyLc0p 62UWwbBF6CljIzZJfpiDNv9OXKAqTUdEgauhlxsPTFVaRXAY8Gm1VEPiOSxiKbJWHfDupjkkeUb1ahXP j3 / JNKLmOx2xsecc8471dcU8B81o7dTFwHGJWKEmBsDsY6qyEDVlsL3O0jgWCGPg3yQ0BHJPxdZfnDSK2bw EUMcOAE2mFHSRSXTyn4H19nXZuhHNegmZq9hCCGB9d9WyGcQhnvHHVwV2ffTyH6TXXsMsIBqvn3EKVQm vmBBxwXztC / IsfiugcG24ufu4bXjulaxkuw82d8rtasVrfbE46hIYV1zSGEEjqt8khbdFjEZVnJ4FrHeMfjqzNBSzV4 uZ55xmsB2kXjOkGNDfPMynNRR0jY9mduZt7uiH4R5DLDaSyN8XldHXtOdDT7jEkBSVaNO2gVsKflsUyt nRAojpIItMHwDZrM2lhFI97t7WlWKYArV0fpubocR047dzE45vdsXxek9 /uvf0/7JX7uCy0tuFFGzlJefy3ZTPcfPHjxDfhLXaFYlyOGYAUFxbav6GnNQEkVK1OhXKSG/ LYNdms2oaKSM/FXjzSQOPiwTR8waVbtjKFkvAOBFTiJ+ Uh4ayOJMQSRmzRvzApdgmeMyCUbmTjfTaXGoJb8hAfjPhRmpckm6x7ZXOA+ gsaKuU3YtN49cu6aD4SSGQGaTDfndGOWTEDyCdBxLdWgqhKZqRctvUo3UQwxl5rFqFkcfwvGT0CYNC58 / JffKE6kmmejNh5meujqAZDB3OVeWYFqve2uLAIHoSULnywPlRSu7hS4e0vZFeJJyEpGCOeCJWjISGHG0 uNnlgMAHJMg +lBxc4sjhd/u6Pqt+4zR9QViISLxzpuk/ XMc5IbGmX3Dmul89WYByggrg6z0rNC4IiKLUTZoEyi280Fp1uLRSM6HSdOiWN4H7qUDRZvepg2vtUaxF YeGdC4hDghZogB / YTeuVgKYNaS8EgsRKHtxkVcn0UTPl88UaN4FywvApuff53eaTWs5qDhRVZs3PhEJ9kEXnvttNl2PRKQY qX1xnYneztTObZpBgeNY3aFKj0rvXeH68as6O2pA /VRWWdVfy145qeu7g6zv/vtaWLNrf4E2Vd6GvCgnXPvspYZRjxHaWX5fsAuRnmTVVzq845A/ 0a939fvdSs9gtALgzzJ8ld4XWdTyZe8O1STpObRDKgBdbYKVJZhQiLF+C+ BqerrsFOG9NSyX7UeqCRK0ADU1Pk6knGXZSP4RvIYmVX62kMwk5op579sZHWVcv5o/ UspiBOZhccqW5Z6PSK3Z01lLklr1ig5eaXRsGa0Yb7jd/ZrMUqcCzlay27ETj5I3B/ zEOo1HmD6HNw7atq25iWhPgO9YdlHHRDUCDCZR4ESGoHEueCsFB+ FU3okhQo8QtPKEGdfQie8DaLjdKAYHPykalD7kgXYaB4wUK79Ub3CmOUPGoGDsDsR0+ LZCR7vjYNDPCPQW0qKcdjRdaiXkBU/ggfi457hy1xPUglTwCw1/ huKch42rrmJIKf8kC3pzqGl6i00onT6+3R/ThfCZBfO1CDnH+ ZQSvqk2GOjimeHEBHqFjxcmIdvOkh205vUqw50onQKoPxN0fkNYf4SDRZEk7LckzYba21aRbUeO1zRC0 YOCRkY /iETqH5vn9CNGI0T7PqE5QHfukJ73DFn72d/ VmBCDnWscen68LK7uYIV0O43jOPt5exepi89H5745wN10fypgz/Fx3mljnqouxTnL0+m/D/ LQ7L3MYKonQjzWeN0EG69K8OvuHY+ZoBaoAsSRgfp/8D/BbWtlb+BwjKrxxbDcWUPUkcaN4HBHv/ nR6Zta7XDIGbG5eYvLBR3g+ORxB6iEH698I/GF/siVV/dT6/iSZQZbWBFnRrF0JwtIYRLT8a+A/ ttOrS2odyjVGMMjhMpFAJLLHxUoFm/VMeZqufSPzAILjSVlz9pk682Q1Z1gF/daxSWkUuu+ srr2piE1o3v6WaGbqloG7bSqT3Rdo2vBAwBP9mdjjoAHQFV/t2BGtdReji4GX5/ 5LOvo2ykOMtSHJWQqK8XvtMnX72GPRgjTzEzBlVi2eyJBnynFVvSL4gO0IKtfszCUtbmgt/ Gg8FLROCvxaT1AiKYJeN1VTIENvOMl/UuskfvcGHZFDi5UN5Ew987pHmU+96GpirpQww4/ hBqCYqSqjiJ6m6D+UpdiHJ6zvyE5Ojk1f/aDQep3B+maU9DFthh9YL+ p184vAJRN07szNDzRUWeM1IajnmKNXoMUASbQ2XA7jmSMrZPSxNyHFQFiPKPK6c2pbmTKmdGe5zvLGB0 / RRg5STtFsOWXOJVTcmcdpeQRRkCoV2MZBgpfGhMwaKyjyzoU5vjrEgvVyL0AjYHEIfYRmDwklBzZllOK YWW9Uz8P4Dh /+G+nsyY6U4c/kceJk+WXLo+azWq30fX5U+ XVrQ5U0r6j4MCbNNv401lQ4ZAy4uccgVbF6OevSvDeZEbYGeAJbouRE79n/ 2QIhY1ktQ3GrdkX8gBNXPpXWy54T2nH0d+HPEXh/ MuUtakI07Pz5ry7U4ey3i20iFlxyHF4wgY4yaEPa34hqZPbkzGzBTaiiiK4iafUeOJb3o1oCt+fFv+ 05y9npsJsGQaKPex/Fa4ydZ5ju5yedfHftCjT4Bft927byg+ 7nphlm3991PhcOHMsQR4ltTnOG2jGoB6YBb9Wm2uJkrdsgiMwZk+ IwVD5jCtSVPeyytIFXmYE00HpWaKxBJTa4w/ 9Yp6oMakUzFeAx41Q16UWYBh3RZIpsEWctAxMl4zz549VMHNXnbRZ1x37Yay/ 4mi9m12IuUPNLN5Vagvl8LBahElDbO2mHEFBYHtNmrclL/wAvP/ DJawLkK6NQi6rlZj6UnX4VWZe7yviOVooSfTJXlwaTnIf1B5uiYULn9ZGhIVxHzj1ig71i8k9EiMnlu5 6CopU9DpDd2JsCcqDPWySnbhJzzJ42mEByoe / q0fc0m5xuu3LwJGkmVJ1N1atFJ37ntskVkj74G4X6u9qDbJn9z59NrRvUpa7lsVs3epcPBoJDmemIxUB 0dwtYNzwOGFRjVHRSBbwgRP0s00ewOTFpX5IApgktOkr3kkox30rCcorOlZ2qkmxAafBvF5UYgIVVOda A1iTen3bb3uSpZF3heat8jQg3obbDFgZIJAjl8zkJAtTNXo4zQYj9fulD 0ke5IknqVo9Byf8sFbwkCFjX1akh9APyQRQUk9UOLczy5apW2t0i3Rpq8rK52q/dkWGr6rzPgs/m/ wCtT4k+Jdvc+AiS0m9alIvevIDHzsGNvbYrCB55qeECHne+ D40srJMFUEPZ3whhUJlltnfgxWG7KuC9gk6C1V4G290LMKv0F8BX0wJ9nse6NXC2pRWPsfTuBLLmuGgh nbX3gpuMWfr186s7qcWfx +rpI9cxTDlnhsdMcqiA+RQIzb6Cg4ThpbcCRDBMvKK+ XyTKmT6p49k2DuxjAUivvh1Ve8NjPAJc0plpMQ8LsSkBefbxfsSOMtzId62tTnSNi9SaNS9I7YqY7bAv c7yLABwFiZ0pa4PRNZzzBG +u1x4nqw51L3/7TrHpT2BDy6DncL6FkZ45B10kvvdhdq+ 4EMGZiQakIEetLxSZ8dDs5QpteTAaGibapfx1PBk6roGJ3O+2QoyNgLv0r19+XxM8UF/ zwVd0l8wA30wbM78bAmVwgGmlWsDLgD+D6zqfzSjnyEeZUZe0Zy/fV3VpJ1Y9MFKcTKb+m4SnvMqIjM+ ymVoB7cDH3wiPgVvPBtLqcMrKcPlpNaiIIgsTAFerTZueY4QwjBcS6LNNzHCw2YOuu8eMfTqWo7Vr5A5 Fa +gnLW4n8iKlqeHmlvZf5V0gnu6ja2F8k55Axeq9KEMh9g+626vU+vw+ f5HHCo6HL7FQmmIod88ApjdbneKkgPa3p53hXcT7vKHe96FiWT/ o5fT2y3aMoLmC6mLqX2OSsNX6g41qYR550tMsRmOdbjL1ni1IhKWmPQ1R5VQ2NKIp0910Fmmh57Y3H7T Alex /fvojUF1hNPcMJH8cZP0a6WHG0wS5VpkNPgJKwEDwF+ z7fplQy2Z8THdMbOv6zUFnH4ooqQDsKSc5eUDioqKarv5Vh+9dG8J4mTTLB8aLNqHf+Fqbo2VhxD7o+ HwE8w1rCl8zPzp21xn9Gb/hx3qvfSLW1HIZq/PtjfvSkVlMSxd9AcACfOeRVQDPdNZmR4Yojh/ jcwmSIb402vFxf4t8j9cTDA7ENnBrZg1q0w3JZLIDA34ffTQq1NcmSVwDR73S8Jk5pJ7dlzhiPd7G+ ZmS6tsKwjeuf3kihMEVmOC3x6Ju8cyb8aMkFr8GXgKRGSeszKZx+gdgCOz29gRg/l/ 4RcK8Qb4Ytt2A2bdV25u1vpcStQvuwyJCSCpCPBO3YuAh2ZXnhB/lAn9DmyezgBwUUjf0VBAu/AEG+ Z85B2bcItSHb82x5ekvmdphggXhUsjAAwT8B52vZF95uuu7oyVu1Jijpr6W1k9v5BporbMPslx8tBLEc p / sl4yaIk91Suuq05AM0objuZCaNjW2rrflNPJ5mrPI3mD6vkOj2Da6nsUhjX3LVTMUGZa175hvGXsRiSq bx9zN5jS4xWNaMGI542u8WNDi6hFgZJa5VwN3IKeWZMlgo4cK6dHWdyWkRzLl +Q3GR9xdb6N5Xag/ l5Fd72fQzKTE6t0s1RUSrnOeWJvP407hgNoK9trHwSFRVbwD6HvMAQQ2fiCkDgMfKjoa6hxL4Uj9WzZC tzn4h5UNxR5qdL56wMznUQjsmil3ZcaFXYo1gvDq1hoS0acdr8PBxeYPujx +w+L4Fpz0G5aAcAeHxtSCM1oy8j2IqM58BBaWzSh2aQPxWWb4fw29Af7A5jvbJgr8Qc8LZTznO+ pH8f135h43HR+yfPxGOzJZL3C8Durc7B/ gHVAdQH4xLMskEiVThtLOmTQ6dpomVr2oBuUR5zn5kmJCiFA9sdby+pz0cyx+ EcOrKrqjdG0BETCvUlbTfqWZ81u8W7GMX1fabR1wiEYebV+ c63WAx4op0zLIg3J82hcuk90AF6HmW2cWWXTUdNyl4gNAPEWnhOM+zqC5Ir7sIoDjkbKaDHP58hwYNl+ ldPLN0njnFzUbbGqlYE2tF5STXLY4qIJ7g3b8hfALOHgnfNtrH5ur/ABlYaVqWkOILi/ 3tLuNiyYU8By36tZhPpzL4/ yOBv67XlqyHjNNPC2yLVOEBDkljpq85gC4oBB8V8x3pNSPRR5quKCZPOHtJ1hkAfuc9eW2QuwbR1xrwL vm9eqmcaASpESfk7XGxYg3tq9GZtYPRIDw3oUyf7xkg /M+ Gr384GcGh8kYlPimnESSwYd83E9KECNZctbclN8r4LL3B7hK7iqy2f76FX4ca9GvFGuIayj2rQtzFyG7 oYEr7k0tU18DpRxrrmV76zjBS6498s3SyrW9HwFkbrouaz2vI0z7JnB9nbHCoFuDQebJOHELRQ9YB AMy04dW3loSs149mk0FJzbO5jn3uw1KUCa8Q4b0FNBlPfa3HfQql9UYRffZ4KxiRNIAhU0miRsXbpyde efbHteV2ih2yWcUQfUD3 ZYlihZn0oEpjCufa2wFoJtakf2jkzMjW6214ZyQUx8Y5g5yk+ veHvNKLaj1lLIV4X3qs0r1YOdE8K9j8Bpzlg5InbpQKCd3n8gzJBWiQoxRhuM91b2Q6Fqj0PPW9Ey4+ cERSfzy+MWva+uk+ RmZ0WAMilumdwKG2Rx4nCejCphMoI33bN43OFK87gKKnVyGnK1WoUjB9HxgGiKMHl4h1q+ htbt81yPeF71hI8cIEvvJzGwkDp1IKI3calx+ fj4UL9r8DKXYqrM3kqWaMPATsY3mOmIg25XsKR8O7a8y/ PUNra4obyuul51yIB3OpUQqF4mZ84sN6WNfgCi3JoptTx6uKa0jp4dDYnZaE8EciaJ/trW32q+ 5ON0KIifWqetkjbwyxq2Qxa0phS6u1y7qiHZhmlGMhiQoToRvwbaJ7SnRkr55u/ tq5GgizBb9Hg134ONPwhm86y1l256pG+H6X0oOGN3M4cLGlzdEHZNJZxhc6G0WVA+9yz5HoFZ/ IuReN0MnRI82Vp21itpz0743BtHz0/PgH7l59IROvorH/SOzdQtf9GvQ+gzax/xuGM6vyidM1F/cRaZ/ I9xCR30ndnxkFxlNnRYEfeEAH4GMhY2/ FYZM7ujUrvpm9HAEO9qwDapoPL4EqYf1A7ulsr2Kkd0J1KUm7Cm34AGjtYG3MyVhb+ uCrnUySjCea7BFy1Ovw4ulArFuDWvAIKL4kmD5u7sZLY3T8vpK8jdZP2HLSPdlkZRaYTQsUYk4KWgQHG w93xzV88i2RNLa +p+uE8NEl0lVZS3c5JCVrdeYHZtJEj/MqlFbYG5P22Fpxrl4RsyaiCg0s/ qQV8vuPUpxf4BmT14z3ckVtQEBFxu61kLMx0lA6oOcQCiA9wa4k7aNAA21/L3BZjdRxUzQeUwZ/ iSYxazkxoZoDKwtez5BH0aFd/s2vimUUYnH0lfHPpgCqBW4BYh4rufcTwHScA/ iZ6iwOcEA2wGrI0BU6gtw+mRvOTTmCA3eMMNjEASAn5akzrijh56n5Tl+D4b15/FHg+ NJoZ4hCCbuRgIaFhWHjBRPxJv9FeqORL5lapy8za223AmlkV/ bDmYqmsOuglH4kySEoBSoaaS2ej0lguK8tdPiZtqaC5lLjlU50i6HTOTg4hPy97KIuvMbwIsV3z1wX9p 6tzB3p7499eMtxkKzSW82qnf5lU6O9xN8V8cIV0mpV8A3qdSDiMQ7bPe9B2FePpqxjrv28ZMsLXWsyqR DFS978FSgPslMDKRGa4ahw7wo7S +plgejA2gtE2uiTFbYuN78nvt7S+ Wun5g10uFfaNOOXazw8cNxlOU6KW61YJln5Gr2cBXEZjsu6lG5gHvmN5xRxUBILCEDBA0bVt+pG8X/ 5CXRKPgt4/ Q1yorbrqgdj8kcFhYb0lxrDU4oUII1Zv3hB3lnQW7eJrVppKAMf6GJkyjvnO1qTGnQLubONoFSxMjQtX brrf9yB5AIO /Ke6qnFfmAlDyTjDnu6ivyuI4xunIymJHtlj2/0QhF7ZiNvCONBEdh2+b2sk4w9fheDYmqa6f5CnIo+ qa/su6hlTE5sZ9J7bOBk/GpnRX0gexQWScZyPKIGJ3XIsec81khK9Pb56KNUHwjXIPsSo/ VoLvtwPu93vH4lhm5iJt2dsCsPuzJ2XNP15J2f+23MtzbwhbCGawx/ ByjAeGZtZccY0kzIPWuU2S4HynBsj82++8O3H/TR5DBOogn3qb2fn2sjonwZeTPQlLcT7FuETFveR4ta /RAq8I9NRybYhIev31MpmCi2FVSIGId11MBqtR+1X1bN8IZZJRVp5GRsc8yZWGW81aWzM8omdhVed+ 0TVKEHJ+7Zh2u0ASjZ+MD0tce2nzieD7gkwXcekZADHizYPd9LuRrXKrqa9Jx5gzEdfd+ TUShFHOl1bdWf9S7VVKO0aNVVQ3v2tk5AGWz05ZIsdCBaN4jiKp/ qR89H9meDubi4ir1nN88P7wlhXt5y9rG1ehjZHoGILPHT3b2Mc9xRQj2hhlRhqpS2sz7l1sJTkVfJxpy NQSOicEBpdNROzL0qvX1e6PiV08dDCazHPME6 +eXw5f28+ 0Rikck8IwNoluXCzu41osDbgTx5x0XwGMmFcFi6AIp9r748QoWs30LyK3OU1hlQBLTUqizc8mKHt+ xfYr0yv1D0ubJN4cWSWtHdBMpbhL6tsWJs5teqFxFNxJHF61ZoHtEv+tBMp8Om3yNcS24loMIusJ+ Jhik47kq49kaq43i86O8MswohJXAd0AZmcp0RHCPOgXlwfyk0vvS+dfi/mNy9lj8imgRY6n/h/ H5Y7Xn9ZslAg8YG+ V4H7ikK33f9D8tkeorcvNwLiNjQCd1fS1j66aFIoZKnjRXfFmRNjz0D2UqB8DnOJBjX7bn63MqTfve4v m8Aky7rRKk2diIrIwkpCJHcs0neOt0fuATruSJGzy3lgoHp9jjEm1A +MPg/ZpOi6aWiR4p8oS4yCAm10UQFVQnc48fYJeqz9N1G0oFAL8lw2i9hiDEsem9DlvqK7MlbG7PhL0r +L/h/SPH3he/ 7kPpA5026QMRFNRsRhkfH0tyoSwpls4xx5klY0eW9jmFVi56lbK94m6tbue1DxFCbO3Ihyt8MtVhhOLp mD1SjtdjfKRnaxzx99Uvjmobiy6cpsNpFIjYwgQ8u8OEJFJzOpeD3kXqCmclzeqOqM4IxwEjCPflo39w + EkhbeeKXVe6NsLtWg1D3fZrOdrdqB6Zk6gNEvBBn73RXG0pQCVeL0T1qJEtkdftyW398kQ5dcgUvzOg4 D4aa / 4S2ltJdtE3OZw8udb5j5cofdgXlRx5oCfY16yL3FYgu2mlUpf850PVyAP9fVmIH4ouxN6rAC5rrfM4PQ 5fOtV3 /sk8XvpFcAfw/ PoUS0j6FL60sL407NqxiO77SMzhUEo4L7RRQY8L0nxPH2s0US0byoB7nqQFdQJ73e8FYzhnA5my384W+ YXD3YkuW9k0fSfFhiXYKv3LVDTXytUvY0vSB3Zw80wxT1mFE6ZuHm2acSxhxGWlaNJ/ dR1dK63X8sDpl17tG+nbR+ Z8qkX5AUr9hxwhCeKBdRuRLGJMdOYBFbW9eKLkeXkvTx3t1XCq6Stxy1bjmbeVpJ+ fe9TtoqST1jlpkKxXBd+hluowdtzaKwq0jp4kgD7bdNtaksa0d3gdwsvghi/ oc3i3jYSwkv2ilU6KZDynrfzdsktoF9DkE7JYKaMhsza6Qh6cycd03ufWi8pDaDzz7c3GjGia04LhRF4 kU /lRiTttH+H54obJZdbLV3Snl07583i+KkhBb4jfym2OdDD3w+HbnSpHna6+ ftzkLkk532WV8aidcvfk2wEMqzUt+B/iDqU/ g9zP0h9KfRhBlNUPWtsxzlnuiH9nyUSnu6riuT9tay9fCGzwPpUK030orQh2PzDAO7Okva/sCt4sc0+ fXI3WhFdHmtYLgm2XqlmWYHqbiuxusTxyrCogPYoKRbh5p0G1AvFcBubm19vWt6rFbDRPpgvDUjndzQD ROuUaqA3t /k06t25AOeV2+PdvK3FhmERhjMEa82Z3hc862Pcoyykn30JoVdQ+ SlUaefY5s7f6ckqez5V21bX3ULbJc5nOi2d+TZqqYog6LcyFht9v/lH7UvgXkaZPP9aWWbG8GDteq+/ j4NKAZRmmn3db5qxfg5o7wogo6Gez9WtBtEx3hO4k6CoO1EnxG2Y506B/HPia/ 3ALLP9l8BF5E0NGN56t3RAo7dKWH3clMEfZ/m5lHcb73a5c/vP0eWpfM9sRgMVq968EleM+ bNn8nB8se1p2hgta/sJe7iFnC4iFeTkd1MVwpIdcRgqmU33f3Ejci8/dGJrMCY97n+VdMT9phVptvJ2+ FyLsSZCnUEQueCWqDmjrJ1wuMAbmmpkaFUd+ YshDbj3JPY6awDjTasvxRG7VMsctlQ4UPFafpTR5ngBk4prRXvqUFh7izmAgy2+DS8V6l7v5Yy/ Sg6ht0W3EmZnnZwkBxdHeKackLRhKSXJfQMfNG6RAHh6s7cfCDhe3XVq4zRvxU8FQTiT+ A9hpoJkxo6Wu+KS4Kaj3Jh0y5cq7/AvJ0042iVNQnoF+qXtnbJqkljenUEvLh7+ Kr9ydNxAuPaSx7h62M7tG/h/ gWSggrd98ZueSX3a6iu5GwTxplH3QSeye9IazaXukctEPK4SbgMQ6xsMOyFpBEiDxhIoxA6ub3TPqWie lp7em6H5bBft4mSqsYB2b2pCltHjBPsTpsB5 +qeSVnpBmol6BqxmQ6dGBi0hSxVFNZ1pkdud7kL5V2kCZ9+ 34Q4wzy0kZLs27507nvq58fo96pomUoFGbf8JSkMwhOrMD3kNxpsjiH706F6KqltxkVVpSUKNGlQwrNe Yxihxq8vL967U4L6reNnPS47rDbdAkh6jJi /Sf032Ns3sGYFUJJubx6jJefo6jbNV44HwVUaZhZ+ ENrSxzqzXpKHcX2IcSaWnVX1kSkAfeReUJOfHKVSbAUdNb6wIXjwk2Ar9d6Wbvn1gwNvr10xzhNJ199L jxx0m8okgcnFBHiMX5Pon1G8bTG0N0JDQGzr98gQpRpWR9kJ86Gr6upmq2yjE9FkPO3z4CtwYulZRzI +tCqLRuL6p6TQ3G3Bw8/Xp9P8O+QlorgmZ5Hs7w+ 83hTIuGPJ8mQLfo89bLRQnfGta6rs3EnjikDkvVyKjAjtePzYR1qOPMibepNYqvOisH9mj3+ p5h69QYARs+aLjUjeNkmqcoOzdS+jZQ4ohx5kSzZBQ3e+JvBU+q+ShKyY9FsY9fV/ xG7M80Ix7cgshd2G/Y9+15o+l6QErs3ZZhwwLny1/ I1Pl6O3qp6XGcaM8wVCZkQjAec1A0Xmb4y5qTwIMdJPqf+p+NzA7jxYG9J14M/ zS1zCR7O3ZoVRdaIFwGa76Bwu5XKfKr0811c49vKy62RQ1+pdRwlLgvC7Mci3nIq0W4Tc+ KH9k44SuH1QKXnkO4d/ agB1HniFLgdJ3rscUc7FVqmcv2l5JNCdDQ6xZzbEHPmCcjlvvjXdm6dlewSB8A8qWreC/ eDEnZiue5ul05AF7lRJYjnpuzZKh50n1Hcw0SLovJpNi9HSDX6qGPSX8Z9rjq/ Md6K6myf6dlpNnAI7cdx3bgh1szaqpmL6ea1Eu4ypcyCMR8ULHjgNeVw95jIr0gCPhqbpok9HiQ4pxc7 A +K/dF5KKRnUUnp1WmfyRv3xbRyH2l1rH36ceWEX38HaAdMX7I13AWiN3aHB6AzN7SJOR5Yc/ YaPcwatfahdarYwWlkNW+s/GXg/r3kvdBCdPhqoR/ nRfCyBJtmWyziJuJwnzztjpXSz80Q0B5EnTmjVZZo5hUaAZb09AyiavvbJSi+uvkzL5Bb+o6Xn82ih/ aYj8F+EWtKzRT64vo/xjy6q9dbSzHnqanj0v4eoddx6x+ q3byRv9bRejn5KoQgkPqcmuz1HVmD3gggy2i5jodowaOy2ky4o7H3Pnz4L4xsH3E3HV0f6c84O+ KOZe9J5FjqH5Kd3u2hs7FK3kNdOgZlN5wjNZu8o+ fl6nxk2fy5k9sRmLTOBGWYYzmBHfome3u5bsZTpRE8N13iltkoggPFkji6r+ Ls6IJSMaXAuJLFPbrWItNk3rn+gK6LJPS41aYQy3V3vE5sK9dy2Y+HdCvtD0++j9qL4V6o/ VBe8gOeunjh5sNPW8qu0blnpQ1cLVo3E4tTX8fRM5Ozwwi1yeOPNyffW7C0p6Fxqo93+Knhm41/ Qtxelda9SBqaeNtvsr4K9v+ XoYq0jGS3bGSdUahwEBwI3kgZzExPzifUEPgV1hsIsJWY180zuT3gbFmZ3tU0U3T9OxhBGx3Ur0acEsr dmCMI5Wz +P23mKZmk5XtmMxoHFmzsW5lftzELutrnrcM+jXN+ muvxwReckRIvX0K0Xzumkfbod8VxIgK10xdFiD9qXkO+ TtOYy8p8IoqQmbvYzdk2lyPi6w8Jhxnnr92D8vb+ wM6evsJKN44FgQlBeVlrGqc5dibe7BFc0Q8urm588xZf7/U5meIbtIi2NIMa/ FCpo6c5Hj7eoTcPpVrBclGzZCxfgH8puZy1i/LTrtlzdsHD6UJl48NjMfmf/FvibTNZttYt/C+ p2S4u8Y2Jxj8n3iirhLiiVJ9x+lMe5t0hwTiPxxBjt/2XHZXNnZea/ LnXnM3SmjRmHf4K6MOYmjSh9GeMwV54wwv+ 68wvrv6QFj6WY4LUQk4AlZi3T62vNVDaZfkjy7QmKxrk7DML/hZ41+N5jKaPv8COinna2x+ 49gh6UGxfIs0OH1awBqf+RQwm3UutgWvBCFKIiP21eh/ Y48h08ejdQdV4oSmg47wKzD4W0JwEINmycyjcNq/wAC+ PxHBxpYjA6i6NhUYiLxEC6tkREl9ex1y9D6xdZ+hQouoW+acPB3oh+ UDylb6hvyaLqZJRR9m3HTqmcKAfPZnqIz1uqp94pN6vu+ FSElNCEa2scF9xLycgPamKSciWalTpFiyAOml8C7Sb8bsvtP1b6L+WgYT4l0gs8bEtfA95NtDzj689O+ ogCsZFyzo89S4m5gTcZBuAZYAd1j8tsaImmQiguoek3qDhf34yCoSzxdGHosRI7mbBvO7HKJoZBVCduk 6dpr +B1GGu8kUXWAl6z8yjFb5GFb9s7ahnPqiw9aoFLpF1XxWQAMc/e2DDl1jztca8zyFsMOhvqS3fr/ DGheI/htY+ J0mky8m3Npo9ztRY9nsddfiQhdzs0ygihJrV44GZu4tg3wHSBpysayfJ6Qjoku7oZW2c9SwQ1lc33F2e aO1DXezSVLVnLTbuiDftJeTQg3EufD8jbB96enm7yaHcvarT0MLWUjhzfUnSihQ7K56w08rF8zTGn9 toxNaeMfuaBmCyucXHSj5B+2VeSwMXyluyZvW9xiry1MMflD/ bp3ygyg9vj0djM3yW8oivkEnhDoQqzEEdflExwZi8pFujMGTAG19mEUqPmKtRHfSdu3nupbWe65skeGz FLaIGemp0O +F/zyvZDX5IgE/RSt7btCi23zgcB7JkJ1Y59JuD8iZ1mDroJbSy7gIfv9/ fBFI9p5c659MUOaQhZkvDGuoTgpU2s2Woh44DFU6t+YCAn5AlTOj17HxzxEQzyFTO23ZP+ g5lvknHnHvh0M6uQoLyELsZANwh4T5VkyALTnUuvHKwtDrW6y0k+Jck0MlOsJrtW9e/ phgzcYzkYr1JhUdxityZaOOmi+1N3zkf7l3o/s/ vC3mhWtKg61tabRiMRHc0HfOMXx2csphsiukvvj3VnesUKua4iC7AmnqgydTa1UvnMcKv7QzaHEbEJ9B vyXz5zffpIzVS +FQv5eE8S0/an6W9NhYTS+L/hX4n+BmPKsMv3q1K5NKtAfnX3IS3+ g5HgWjsrTz3oa9jXY1vdY9Zw3LGAlyN+AZZQI50t8S6Fr2s/ njiWykFaYleUwuNN0aiRmCvco02JjStGLzF9N954iiqob7dj0FpKJfZOfVzlgEa26eC9+ uW4gS4O1H9qzP/ 1X5T2Mh6KVIaGBIpnGs3XFFtU5E3LQxO17e9owVBJRAH2VTTZhkpAL4qmtvWJa3auJ1jlaFmMfwM+T9T / zRqvMD58APiZxityS3vi8hy1ptSPpUFIL45rJAG1s5YERJa7i21KB0XuBu0C85IdVNFHNlpDMPjzvvfD S5Yzp /aJxXunkOgeu7w8oAD4z97KYpYIQRJavKvETAiWZzTa8rsB39LD9aj4rm2BwLvcTDLfu5uaFv+ z5bPsfqbo+ihfOzDY0tdrS2bbjyiv3B8gogCuPSEl5m1a7JlN2L5UYWNAGdUDt9s71iKpIdPdSQ6m8m+ zd4/1qjTdL3YwqA2vt3z01B/ iTnO2q0bre54r5Newp6NfStAUZ4h1F3gzv2wt2rTotja0g977z1V0O3Wq8MtfX+8a5p792emDGpp2G0V +ZmSx8XIyU9Nngv8SJiwvPkpQRZUZ4SG0WeXFV8BTLmaHDQ3srkFa3vhLm4fSItclOL+ DU4515XBI7e1F+J/Dep+E7vUb/ VIj97toAhQD2Hw4TqevTqYRDde0LsXIeUdlSSoJ2cT4mXlspQfxxu3hlY4eeYfoAWgIj5rmpl302sHzx bBvjZq3LnAqTo1CC6dop /dM5NkRG0sEx9gT4WLIu6JxLqOK3i/ Yx6gbky772zqbtNgOTpAxHf7ouJ0a1PV9uYJyKzcdv1oCvircRJXwezhpoR0ux/iA2kjtN2/Lo61+ 7W3M4lyz/8m0G85Zr+E8+ tcvqoVwUnqIx7L7t7mB4XoGu839Pd4p4kytViPn6yEhtyuA1q4zyzT93IK0c2rwE/ mFi9moap1EwyJuTcMz5EiLHcdFM5cbbSGmml36VEFiebmlwzgfG8vqWON3+OPy0ExoCT/ 5Z4O4qUhgl62BZd2czMKx49aOh3z5tLdgod4GAryKW2eqHFMzaTvP0rRWvvtwBPNmetFPDcIBixuzcUU CtdLGN2XSFG7d8fked9iaEc7ujtamnf1WuQCmLr5VXbcCxJF0WA0KKM1u4yuecUu / s16xBCpE4FwZAO7xM2xfcU73yAp9RcLjQMn0iXqXEO5AligbiYL8sih2mwcOXa7MdmJvp9GhpA1Ar8oY RSl5de9 /Kawz5b8V0jaYi04HoJHvcua+UZJ9lkLD/ BuOst018x8T57kFN8hm0JxlIzz3696wFkif2Fjr7clmFxHueeKuXoy4+RzExda7b+C/ENp8R/ BHeA0gUBV6Nl0dNXVOGEiItUZFkmjxYrzA95PsedOeA409pknmQF3cddzvALwy0JTyvsxJh5rjCYruwr AZpp9DkQgM +kdet9c4kfF+sDifu8Ojj3KsJxVPBq59kp6AEjZ+MkwJPE1fylzjeGPXNfb9U58pa9/ Z0iroe3ChTjqVYnDzHHJ2dtKOCMMljMlJnEi36t3di8ewV8ax42Q0z43rTD5RtaDn4xKVQhs9Gtv21tZ o7O6jvVI7XFxQbC8jY0zUVlfQv3WHqaimB7UM1igexlU51SjnvTPWDzxq4asZ7h8ZmrYvHSDSpjRKCD4 iVED6TL6e /2oJGH5jK6jWaPJh7oycRiMLcwzX8wFnu1q/tE+N/PR46z1Eq4eeh+ F3aU1Clhnsu3ROK3P46Yo0cXjbUO3OS0ckgI5XMsN1enS2dQe0yOsqsfYUUgt/tCePLe/ 0gLry4ZAe429scDu42dYuCVtCEnjxcCxPtjCBYM4UI12mviPFEGMDON2iyW6rTETSP4g+kun+ 928z543ajbodaiTtiSwn3v21Srkw9yRL9Rq4+VNodin61SUEqjmcmhaciAe3/Gm5ovRszGEeS6rUXjiG /4l8Twn1S4M0vLcAE4OGuBXCheSbvAAGbGdp1w/Bur92zhom2hAi77nPAjg+ 0lOKi32vYxObdwVkaLLcAarwzJED/o5gTKcfuQAR6Oga75twtL2S/nXwv/AGpPjXqGo2/ iAEsI8SiOp741i34LKKB4KmRxb6A8sARwuXrv8Hbs7vqyrQsCP3iZpyPHivfmJrXYl44s/tW+ VII5RFgAJ0J71T6oju3zFIlfvC6DnskZh5BII2dlxa8QhZDeFJWCwQmbBDlFK8j2VMXjpXffTl6XNGs8 Ux9Cp838676d77rwRVaZA4Mj +CeQhqSZwytgKp4yllb8c1X1r0R+DdZ3IA0QYdhyChonD52rw8Cz0JosdjqSS+ rGmzKgtsctgTmj13oYXSJR/Sxb4K6eMA3ccwHfo5ucawkH+K/ rwMF0F1vy8nfgdRn6fislRp6fXnbNij0+uTLF1YOGEgtAtbESN1kwawNrqwXvbVIazsfz7KkYY3rej7+ 33Z4rh2UOn6hg4H/2pc3qealIBvlodphjrDcWfS8chJPAhee9lgDNcQahfwMM6DizfAbrsH3F+ LhJtqBS3VskTViAncbDsh0r821UWK999x9DAVf+ y8GMV1YUWNv1qnTczpOM1tj2o2np4LgXD5GvLLYtumGekt+ si150Say3wNtHp5t5TwMI8PsWmA7tzVsdL338uJ5e20ng+ SS1Ly7YrCpoD4qVz5veeIx3vtNwJKvizuG0uX7mK8lzkoXdq2rTfpTPM4L+zImfL/jX+ 76q8NoPt6VMpY4pgBe8VgcBhCfeXXJ3d3h4u6+ 1gJrhBvb91QgJ5vkAdOPpF63MkRWmGh8Va1q4yf6LM6gh8Rqxxnj/btMkmo+ QSqmuqsP7xmD1rHvmzh9zLLbhVYxnEEBaQJ4dK6b3YAQrk4r/A/Hf4L/XF2833T+ ZGBupXpeHeloizStRPlfPtIo8Ue1bIdqW0gacbRoe7pDTUOFn2FvWshGVPnbnd2Tu8bDHu5VkgqeNf46 xbRhmQKJXqJcglWaQ0LInHXnOtDLk43VvwRE0JqxMxTowPi0p2fJ0HTj2IbrujaT8M3FnMgvYkvYDhhj hiqrbj3cECAzTgaQ3scdb29RKcZAEJ2HY6qSl /ExmP2rJ3T6g8aw91tDsJzpy1vOF8j+ nbooyh0GYEpAq6zhw1iQidhVecS5JCalqXvviOrWvalaT6NvXidiv7pgeqGO5RdvSesVzealExjeYfCt Bvj4Nzar +oP7rTRmTEF2nFG2i9WxbYf9I/Zl+Tfxg6dorViC2v6kFnbiS1nt6/ bUBbdAMX5xGFeqhSgqb3OirExfWZvbBODx1R8qysVqfKqHou2F2QTolTQxS2+ YlB1gwpX3yca4GYkWZUG0w2TrOYhXCUgesRDbYWSjjLzBNqiQiCEkekRQUnowl7e7d+QDl2C2X6/ xW5jih6TeUxP0mHeK0bI5Vtyvq45ZXaD+FSkkkkPNvl0snscGS978uVxco7x6SA2H+yp+ 7A7l8tLUbqCgorJ95YAqUe5rSM6ULukVNtfAZsNJpRTdnfCN3c0PlN7BiriPLY/mr4+/Y9+ KGtw2XWDihoIi6fzbH0J1bLehlUlLCjpxh9BY/+BhiDw6WVGrNQOAJHBXkzkSijocMc7I+BfwL8X+ EyRCi18z3ORi36OjbiMXNYMEP8M5I9ZKZnAMGH6m4vMftAjmkQti36tyx83QuwtrTv9mNL0jNgGxgNJZ YVYyuh54kp2BW42zlMAyaggq43utJoWPqbGgb +TXJMlDS80EGnhcZc2FlDk+1FeE0lZcCISHHuLZT3RdlCL9x+Cf/ OMI56B9VcWv8qXii5GofCq9Bn8IqGqqowxorayM/ MGgcg5jUJen3KEats589mOBfxET6HNukOi0J9xCzooOyT7jxbYNlKAybR6fjn1VjJCoOaBF7Gyfm4u5m 7jf4Upn74H8obgSbl3r +4jb6SloCKMJTbM0Obl1QcHdGP0Tl9e6s3jar7AOwTAUrmqkV4UmpsUBE35HvkVARZFzm+ yvsLr1csiVXQV+qHw1nnbP69BLCpefkt05c968QOnpvsIv6bjwZyMiyNGRUBDaw22A+ SXog9x4gvSd4g9I2v2aC0ZKLYUYR78AeRENTEXLSRcGGda2UPPQIr1J9dxdjXaJJdtps52flHlHFRB2H gLkHCkgjrgAiivSVVJJcsXZbuL1 /b8G8g7oj+/8A+1S5YwgakZLz7y1g0tcN5AaP4fMbskNL+r4cdk91bO1XcwInmQ9CXu7fp4/ jnBuuwOJ2EQ+x1SAWcxKRXmDiss39632ar6zx6F2siK7snGQFh4r3i8I/ COfTarBf6cV4vkTvnbaguOKHdSaeuCJbfPS+L5gOQgVHzAfCWoaQGu+ Gpn27ZTeG2cJhTA7n35qdsZ9OOjwhrl363mG/jxmrjJJNt+V1+Gzu/ mv2FuIgVitvgv3h6Tey3T4292VLMIW2fGZHwRcSW1wQi1yCrMFQxDfGupHCzgsJWVnAXquxRFGclhSAm VrJmqFbIR6vYeum84fhlOLSED3moypd5ftzCVk1RCuBfsoUiVcm66DHvu /fwjqOGOcvY7j9A3QI+ b55shpowzqK3keqCNBiQ1E8fti3pIZcFHy0pHwZPkOyCutKy9jApKRcxlb7kbWrNZgqrSMyGhS4+ YGHdGFTkFVIxgDGM+2O31+v4R8iEBGRURVjUNVotYxmRL3CS6m9xKiNt66hJF7+/ dlliVzhsWIOy7459kO49G11uMo0aPNCbiNVU7IlqEPwZmSXKVoQPQbEfXBdXLIB5+ mvREXctqnFPiNuCqt1nLEt1Uqz+FdHkKok2APZaU/d4/ G5iBQtPBQTjJxC6pYYPBBlo1GkKPjNzgu8WKW0gTV24vn6a3Vx29/W9/uMaFmVf1ZV0Qcf3+t/ NqJZsSWeBGdGSDQGJoJDbvNUOZfxUhCQFAIkUPCSbXWhFHjaV2Uo06VQBOjnYsWKPjFv7HYlxR5xLKyN VDvCiPZSL8a95nZzj /Pf1GGtTKsy6w6uBXcTFwxQmzEYFZD32SVthDnJWP9byMA7kh7kWG5w2y/NCLUgKf76tO6/ 2069yFYFGrTpZMHmc7GrYPrgTHb35PTsicYJryzjFavMpPVnJ9qXimMHYyCHHqTO++ IhVIrLNLlY7yfcdsPPwcKeGsYQ9yl5BdTpf4cUBRumUslwOLWO6kEbpPCSOvukQ8+ 9HPRLHiyRbCERCuEDmi2bEGupeJlGcYUO4n4TsMhTbfiv9dWLj4/r5+ t0JgsHiu88Qvq6pr6eRUxLDPgmEI7UETIHNZtRVROE1n1xxejPXW0rrYKuvladB6cmLFkJ1CPN7qcbWo hyAAaN2U5q +BIeQFPQVVUKd8WFIrPkmr8q7ETJ1PiZNYFJW+ HP7H5jepuEeEDxxQFQe6fIXCATEDMPBoSxNbLT9ucymIiCjztPxHLe4X3Ny1/ qeGnp6plweu4Dnm3fkqz0VKo5xkxwGKGVknH8uyCO8ufwdXefz9JaGGNKr0Tt+Wsq/vCbsbDZufl2N/ [place]77kezQx/ jS1OTeNXpHltIDUZiRLT9DGwm5S3qgMPqq48L5ed1jzItfkZyQPQ1zqAJQdxGmuCKZPcK5NmqjmnqV1x wnHiZ3MbHSBbjwrdMYxkIMj8nro /QmqD0ZxCFpfLTkGCije8O6syE7hQM6ux6pdA6yhEGEiu9pe7+/ 3S4zpFzeJ24stfZeL9QY0bzq82LD84PseQHdXtBJ4wckyBdmV9cvhmEoGhNn7S3l8YAdPNDyIfUjPgdg KcAkkN2JWN9Ws6HRnmzb4888JZBs +3mPfraETsUbpXCCIBXkKngMWFPwQkH6yRwElTBEwpMIhuCfjIVSSWOx/ ABj2uiRFhWWpsctylPBJonebvc/kIg2twZI5V7sL47Imhvf/Trp+ BMg654DISAsMpIweOWHdZIDzDDnMOuw6pwvXZrlHPWcsco25XBPtvGg31Pwu2uMbGC5cUjGeX21FDWfw 9F9SWn5Bl3HdpBhsBlAmN5LvYwj6RBeJpTW2tnEZC6 +pfdeK09uQOYRIP6DgYTWgSWj+Z8TT7VCRrNHzzF/qfu9UplcshoDe56rFRayf+u/X/ UXAh8KxaFHMEgDUkOzBbiRFeyfAiY/mcTY6xgBAMirpOeh4yWqcq5jWFpr8H5tZ9T+ V7qR9KxdmAMrTHMCM0EfPSjfueqgVb2DKTJxMchaMotzYPim6BmjesIyi+bZs7ek6Rs8H+QZsP4M3T+ u76xHt6W5vHFzsn3QfcDzgBfkPxetlNhlXwZNrri20EtLPAgg6ky8xmuv25axxjj76409dRKXSvfXmxp su2 /yV44Fo434+HT9TzPnfTJrZiNOlvk21g2HM9t5t0q3/wOvR5PuLwubqD3oAxaX+ 2nbX4CpdmzvDrRAdi73neGwrtVqyyu5cifDRe3Lumn6GAshtpuuDKSRpb/ Yi0BS82sL6rzeEZy7gW4e7gKhpoQL6ypZkKtTz6+SUjLDDGSRF/fD4a+E53QVGBhCl2Zrs+ VaNYs1SZxaJo/bgRyqwVAY8OuCy26ngdlx0InH4IL4D1zf+ D1WGImMpY5zEtoFSQuD0iFW832Jdf5fHkq0+ XEnO7mLxaewk8OwK7uBUjYJgpmGSiYfVbYNLda4PGEEcZ/Ljn+k3odrgW6cOAkd31ZCnQnZDLTL/ dtKeCM8+cFp7XBgWoi0nsZe5/AJ9cds/bhiEbLxp070/CEIe58rd32v6ggf/ JhBOOywQQVrRoSSO7KZ60iBZQ48Txo1/N3Sj/AD/z6oIZhBbFuH9HHr/Y/wBBS88/Gl8YM1a7UOj2/r+ npXCZLnMqyrUVUGhByb24dnLn/ PTqIpIGI1U1ncHpqR1skluRI6zgNM8sW7j8eW8JX7gqcPRlvd075JyufyP8W1EIewkVhfnVtOCO8HPmL o5jLgXXQzwvauV3 +fr+sEUUrvXw764vgsp8h/94TxE6s7k7sdb1utClXi16l5G8oP6jZL1HGx5eCweEWMKzo59pqBBD/ IkkQuIpBI/mS/kp+3lai6/Z1+GdurURI9St0G9RC/aSlgH1H1lti+7EzNbDaHYBhA4Q5vIl/ cIqn9qS0sc8H/MQjopL1pi1SXyd1BzAUr3JcvGpMs5EUaUAJ0C5xJosdiQE2XYnFQ8jE+CiySS/sy/E+ 3nV2uPYDvrdETxjZAXp/EHwu+rEhulOiWiSol0pSsTMNbFjHQETQka9Mwv+8ZJt/wCGSsnddb+ d5ZPLm05/aTJB7godCTw2ynwTt5wF/Hb1yzkW7klmEcwjOcJDgsf1pkxlYaNypN0i5pzhjRZMF8QNZ/ pOQAIb79Vblls5iEqj8LmUis5t002uojTvSSrShrfiI4jGYj19sU16ym73PTRMAYgSy/m7/ S6zR5TeA8ih9P5Q08jpMhJsUaMiNOO6P129PPNYGeNzyKCFei1c8nBJqG/oW+L3tg405w8i0+ HVPJe2dHXmGNswfT3gqebFlsVwQyyZBD/bdWIGFFH8SmUUpBvvznjSqxu6/wAvM+ b8yvVomL3TXoz79pghokwa6oh5G73v5ZpPREkT/ M90QkSh3lNlBuqOYHGmV6meAdfpljsfMPxhLDG5WPIK+ OKw1dxD6sS2f6ylu5V8idqgrfkAuY3lYAtGUelgtPN6Tynav9fCuMElTGAe9WLDEIjT4fwT24pEEFWuA gaQxphsuf0hI0VnUHTM2Zb4YrHj23qcbTjFq8xiK / cJqdHf0iQXOpt5aPg3KsaqjNWQxaKObRrJJrZPeMo8nwIE2r1lI4tjH0615yhdIkso5PYFuIDjfcbj5Z /gw2a7Vgz/DTOThvFIpcfcXvg5p6wsUyRKnOfRNW1qKKlFPlOIyVU2lwajThl3a5X/ EzPivdKpgpmyNgb82qd0ou2qrXMAvAAIVQzS9lhz9KAN9QHFbwZXZRCyct/ lhQXLJCb4O3sWIlH8n96zkRzBX4TRkwit4Qhyg8MsCTW5cJZcsRyB7ypqjferANwp6nBgEO4s3GisAyG eWkC7Qz2di1hDGCdThB4QU9gdKVvz4vkIfVKh9BZJyLDlVTNtEkWZ5zS7Hy0X /Hp+ Guz9aQb4oT8dNlrE4czv23dxq2504eag0Y7ipSQUMOXZ1TmBH6qDUB1nW4X0WHqjuBQ6baNTA1Mabd0l 8 /9PyAuat6kk5uS+6UycpG72wAQy9uQklnwHp6K7heVkwZEwrQ5nHgfLfUtY4D+ NQ7e9qDIz1ludJhe7sQJ1t3+9ft4eQ0dmLjPl1QJhXfsR08kgkr3wrfrP2JPLkXct6bvcra/ UP1XvH89N889c2mFzkejlu70kf2kQaZhnRwFbannd4ND4htTED8GBKtdjbyz0ZFjrMdVhjOLgUDguWVH YJ3aQBf8ZwCbStT6riB2n7zpam +23pY+pcRCiLxuVsueb29On6KKhnTm0hMuQI08zWTF2u2Ffr2TbLDm6brC9Xip6cWtM0inxa1R6ube+ 5ocQCxuDHEVDQJpi3+yt/WpfcMWgy9yhfVQiA4f6h8U+ Gd7H8rmZBpnw7f6u3qbcmRu7o5uLrsK4bdWjeFFlHrHZB5sJxTtr8hhPyIt1pMk+ WdCSfsBxtgXr9GzIEyG8P03euY/7iQvh3K8WUFstNcHTg7rFfALMJ3ebHhR/0J4Qvo/E+ e3klrqCSSZ3gzpQEyEMjoyXYjjwSRzzV+ 0YiPTdZLcTMWVNxA5PaE9oOKexip8qweubm08DlxFV7rp25kPg8EdV4uZeGi73Vw8M591Dgv9jNymQGs +Bt4PCgCt+Q4L3T37J8tBbJrjJU5KX8hrmr1K1VeOKQkc87natW+pBeBbLX2qFzMoXnYiuzPjAi37/ CYzuujeHOiK2ZJGrj1XHctfPIm/7Bzl7ntRmcxceTJClDHJcR9R8HB5cCWhPW2yudYdY2o/yZ2NhPd+ kPHp8vMyFdg0AEIiQOHK3LzVKSYwLPaeSegdg2yO/xs/rg7eDOX7E+ PHWmD1A31ooLjNt4YsoSC5QB33OYrSgrcPT7pPw8zguNNv0wjORnOPbOBADwPn5zdbyh4MI8yaRqLeYA MHLad505pjL +t0+FNAVhitsudlTIwQnYfdX6eu4vqCzlQm1eTStq1p1jz9O61b8R6wYNrD+ Sdhc8vMjJgn5bg8no99ukfTT9hdhEb7B6iVAe3sFvI+4m4UbiKwIKrXhqvxTd18FNJ/ uKpPzRGTR8dQzK6OEprxy6A9OhD7MQvadHAlzvq8X5jyS5ivu3gRkrLaShPoqucgdd38V/DLwR/ JCg7kiKTjO7bsOBaFwdMACYjyxf+9PhlwnprkV4HU8VLEKvluCijCpKt2jhtwea1e6L+ TkOJn5nKtmCAqfklQioarnt7vpmO36EI0T5pujotQFHzb2zypO2YwABKvfV1hbaD9724fW8vTyqwRYMW rVX83EGzdWd42BSaf9ag83mkL /QVp9pQfLpdCLpwXQXMnYq4hg/ sfmfJwSKUwhkZ2Mk6YKhFlZR0NIcjheEYz41kvzJ8MDymoc1J5nhiAP6DaMAOFkRZqYjUwu6XRYcF8g2 AiUC6PEY7KE4pkWCL9g0doDcznoGpJXqAgJ +TLah/nZkYfLJsjhkDPM/Cordelia+A/J4n7NC40YD74A7VYSeMz7RNM7NnfnYS7k0TtXzDyhTtVEm6C5ePq4 + hS5gWRyKHJ4hsNl6G6A9F6vsfhQCyF3whRBE8QndxuqsqqWvUF5WCTtulaVVXyINOXaRxTeibBjphSQg Wf0iXh5qjfDMuP2wwvK9FGDzq5VEQQbfTzoUSrnGueUYcQVHeuwoHZu8hq8ZyI8FccAsgMictZ3EYeyA kgI2DOzmbwgVKZFwXIKzIolgkkGNT +JMBQBVJ774/AnS7H7McUeA7ZgLiv4vZMg5uOG0+ 8tHISv6na3fnCxIEP86CJDO1R26erlP53ojbVWvq4wcjwUgAxG4nMe00rkGsKhCHkB+ 47ww8pdcvZ7G4oAmmk2cWk2oiADjuEpzEnh2xD5up8h6O/xMiL6Dqw/wl2lXS/ eLeMeoUb39IyGHm7sSs0+/rGdvSHopr7PJagvXLSz3QBOAUuwbqKoeY5oGHEo7wEcBuYfl9fOItq/kt/ Mqba3SEq3PepL3Zjc910Q8NummPZrolu4rM2lXvv2E8+tdr0QzZn/AA9s/QFxdubwGHy7z+JLeC+ v4aJUccKUf7nt+mBKb6WaQPHm31dylRMaYAbQfYa4JgdfM9yL39Hm3l4+TJNmRPtr9fh3vOa+ 9nkAR0vK0mXojcBD4z0yCIZ6aWIVHRUkaxVUXUJxXM5eXFNZyvC8W4L7QU1Vcv4f8LUkNdQ37Ynx2miZ 7QeFkgr0sCtpVcpmNPi +6tgEQmK8gxVpbYZZZSIj0V6qvyT8H07J1D1lpo0SH3Bm5DjkqkvqR6a+ m3N7E0fmRlWnY4cH6dZANhNieTR8rQxg65nUelY7fAkwJCDOS8dLuYh5b5vqvyvkSRxeVPqApVWoFCbr Mh5HodUcCrQA6UKPGQh5TuOWJO ++4YpaqA2p64/ ERmm7VVdBzLP9nh1YfT3ntb4jGQb5xLYQ4x0SVmlJy5nbPKRAzWY6hu8cBaX5aGkuFtGiOBWikXXrAW0 hmZb6zw5KhuPDHn7uD6V +aOGHzuzljaQNyirSqCL0q1xuQMlViyOt3TK2oz6B+/mBqZGuCl1laJVU5O7Q9coUIzRsie5HdqzScYq /sY7g520U4shMO4eNpRnZtz2K8GEF6e5+4gCfV8K+MSrw06MA/iXxV/ xLsI9r0VY0y2kJAX51mM7o1u6Olrv/ DVcUG2lAlD1v7uEGktoSQ7iHrXesw8nizmfE73xtIUPsGS38hfOJD6k8bLX5wXmu4JdL5seDTpfUdspT MTwxwmflYRzRH2bq79xtQHaEsv1s38Qg74o4xPdDsnyi9GZ9zk +vycvqcoC4Sr/lkfaVkVNtA262jHFhfin8mrGBql0s/ lORs3C621T1Bd39B8nSsvo6woR3ZsBwnpG0XyxzEAP9qCUnDkhUD8BWl9CfdNfdJ/ DB7vqLbktl6wxDedY4/ wYkqXm6SAlbwZqXB0lNfXidvas006Nqwcgz8x3KGU8cpgfLRNDKqxrG3f3Bpex9vTkIViIkihTZNwj0s ndzkoWlhTvXOzdSDdeCxRH6Hjk6JQp43yFHQiEYX4hH0WPQzqlA2XUD0 +4S1uu2d4Ty9oo1rUeEdBKWnFk55k7UC1F3oMv3BJHmKLa3SJqms5Vv3H+ ADsxz2ii0cg69tne66rLZCPFmrlzVwQe1lagJgbUDzXY53AzvZ4taATdl/wBmyxQ/ cSlT4UG6x8hQ3ZJyUmrld0uP+XdE1KKm/IMjT5zEqLp5lEGX65Igx0cAAnv64lGofLavAD15vA1b/ yhJxO90n5Rfa4N1z5nxlY4rsP1l29xbN0VleMw2d3A5X9cjJ9Fqdf+0NasLRNJBjGsxvYytePbxTyh+ g2VWjO8RcnMufO4/ VCa6SHFKBF2uIyUbqIUhlvi1EsmsMlbAcfiYQ1ekKkJiLDYFah2evW2bGl3ZujDektzdoOxR4Qj233l1 9RmnqOxsuSDuWu5lDdHo4HSbIeJ7Xq30wVqOAx8C4G3h +Q2H96OCh2VIEpXtuPqC1VOBixHqC0sxLGn7kegCi7Ob7Ndu8j6d3mAEBdsmMf0J6ru+ GvoEOF9xJ7J10k4a+NntS9i1UzywG3g7Q5sq+Gr8yt3V7O+mhSobXrWZIkErI0MHumqVBJVmy6rl+ G7Bnz6awpOB27PcQfAPENnRd0yju677Z+BPQDlnFd7x4paB0Hv/ LX83oi9gY4shJq6V3lVbyL7i53bG1iCYou18UA0zxhl5SjHq+SaVScipc7X/ay+ VvQWxC125vai9X3ULhHdUg7UGPjgZJ2Lphcu8g8qiUN14DpUTopjj+ eYH5C5WPwMZ3jNqkioN6OS6bwifIohO4R5thRVOi4YkCDBAxjdEeePCypl1ibImT80yA9kXxgJUdUwDo X7J8LeMXMLYnZAOlKsWgw44KBkY7se21FhQfJP7T +App0XMFNF7jsV35rTJo4YVYmIS8O5DrbwF1hi1oqWVpz6+owlHoOk7f7qZh85Am6RgfSac0Lnrtlnq2 / 3HIy9GX5MLl1uOTb2YQCBfshA4i8htTpvtwDjjfgiR2Eo5xeCCbiqqrUoeOFPmvxmjVY0b2RzMoMlyG1 v9M06 +/cvgicwMk9xtKTB3gwjrjh9uGa7m66fbZkpIGgxHw7ViudORnHS+ jImbhq9mmhB34PJSpygLahhegR6Z0knppSPfY2W5bguahn7eomw1t9jdTmJ7Y6r0mc6424Rls0TolF9D j /WawF7u3a5uGpVa0Xj8ntT44DaqSL1413f1CWdb4+o70n2xEJx9wXhnvVt2aSxTfMREswvbxY6vK6Sw+ Qfj3/golfR+Zjrsg2nlslu+CtL1e/8ACWp+P6QWNcRzWbdMOBfE43l4h40fUmwllVV9Jk7j/ N8zhJ9GteLk9cUOzKU563m1X46/CHQ/ AnjQ6MX7a2G667jo0aR6V2y3BC0tyCMkDmazGBToEItqO3JWxi4bOQ1NwOn9CjmkaIUbeGnQsAFQ3qLB fOXxF /4J6/TTaY5w0yTTkwD7v3VgHvONp7TF6f+UD1la87A8y+KN/EaDT1TcBb5pbLb3y3/ ELkBXcYM5K94odaXjfN4KZgKpLddM3v5YoLGBn2GHoPX6TuCfuQPOS4n+ PxSQnzz4k25SMlPX0ceNzN6Q4x8O0htcaoh7l3UyRQ8wP1Pv8j0sOxyt1micyWduXZ/ YPBSD3fqFWBCHG0odOZQnaCekmJ7p9ubSQYKaZQoHLn9mL85E5btYraUr2qSJN2GdZ9L5fSWbEI+ MraTx7cHxF2+ulDr8kMKiq4AbKgyiH2Bg44TTqhUyTYp+GPe3tSeqGlr+CDBlr5QamL9uk/pmpeHQLy+ jhfTr/Wo7q5+00ztzh0+P7P0tqSBy3QthOJI/fQ0uT8WuriR5U+ZmCX04WE3GLQRyTis0F+ 9RktX5lZTwmlkBydszz9k7A5ttur015Py3OPh7CdAkxaD3vc4XE8fO2BBakEv7G1kYNV4cPVEkElbG3F ppVpe0Dg0XrhGHlvplqG8QXPav7ZJOKl6EsCIjShQSkSet5qUiZWg9tu9CPTX361Z3zwS0r3rm /rXiC+zj357JxpUnDg5t6i8GfiHb+p+ Er2kb1u24tNIYb3x0KOGps536HKay6V3s4c9h6X3xtfiurz4frSqQw17jgkaMEkrp2x9/ l0Pw6Xmnkn7vrFQrci4kzxGWGabOwm1iS3rv3I+c7yb4e+ZHIh1Szgbyx0ecmCI9sAbB1TB/ wI1cbphrjoTA3Xhb5fNlSYTepi69QLUX5JHRO1H6Pst6iIvm7VT0aQx3d1b9VZL5EOIkuu0J4/xnp2r+ PXh71VaoU3GV6sdC4jbIeZmiOp9PdAm10EUQRfMSl0qA1d3q1X0vh2hAyuSPOd9XAeywDr+ S8X0CXvl5T6yo1SofjkE7vCs/YUFsJ95Ytda+ B4i5KWn29WgmRCvVH2QHJoq3j1cN4iG2Fd5RRNt5XvotGdSYp97CgTiVcZ7ee+mD80d12j0lF7pQW/ EcU+ v9KgvgDUJYzeB2WEy2As3ps2bPscJSHUBpmGOUWrsD7G18sNJA3VKbzZi3ae9vsXqkqnmgQ14LM7dVUl rOoDccBzZzZm7UIzjdah6KzRP1T /F/A/4nWn/CeQ+H/F0Wr+ YeuWgn5Jlbzaj1zz8YJhzHs6oTJlIIGfcT1tI6146Zjeo4S74W8mElxO50nR4cqi1gx88mJKvMQbicBk 9imt1dKeT0xUdBltZ4ohEXWpz0B1AUjWR4i7PZjBYG4mfeaj09Svtg /wCI/HYbTliBr9J4/icz4nFvIsyl8qxuxt+Fzp+ hoHhZlnRgdpki2BjxE8inTYUp0OXMDr8qk0sM62V61NcjNk1ecyHiz3bnIk/ cqOUvOAwyz35LXWxV1Ue9ztO9i+ hr1VWXmylPJzuZ2e6HDCPzUE4Ln6F44nUdzsxG9mqTeoRJkgJzebOXbtaQ5yv5h8Sx6UzeTLm2nInMRp 7vTSINfCXWLR1WM6M /1iFVuMgXUmQsDF391K0+1sZ/ NIQfcWpqrTAYpT97enu7Xu66OgiE5gO7r2WEied8QburSPysx8giOaW02rp35TR6MVPbL2TkP9lWifMo 94u7GrOgRmHWPuohsKFwPLtUTv2P80TO18vgawZy3AmjPoeX0y7yOx289M4zhubwP5QWffPU4t +PuhXE8RuAeAY7EpYlKFL5ejmgCn4oXgw54+ ZxjoA3wWirUm9Lo6dmW293HdrB2Otd9Lm81on0lQTq84W5qub68ipxcLVa/oSlou4mUPg0JGtit/ i1ew3Emch7n3kOeRICpatEf3pbe77MocSpnk67+tBIctx6U17LMSCh2/dsm/ ydpfGGcxu2iYcC877WhKHe38Wp5ws8rUdKiuBruX9aVmPlhipHwNc4mciy14epoi818X25m7adswW+ tqVZ091XnfQdmk8d2StR38SUf4mbRWlRDVUnOfTQIzxp4SivfahJ37xpTO1X308QU10dx3xNvf0m2DcQ 5zY5whxcwaU7ekF7uN6liFwJEvw9AtPjycubfnaS +5qCatmdvZuRZ9SHOQvXZle+uV+oPHHxgtPhRrOtfByBJNAS/mFT3pUkvX8uyWAD5+ 96E6UJmoPnGlGqX8Rgeg2Rb4bt/iTRd4faCfJy6bi6Yyba17/VR62FzHaY/psuoW/iXw/4x/ beX1KfPGI6r4uvqgJwM5ADXj7jKmbc6dJb0c2hJsA1mIHfbjroJwDOZe6sE3wIUfc0UzLawardpq3+ pa1ANdTeOYq0aBdNqHCb9GMeXR2gyreBF0CjfwkgqwPn15G3HdtYdcbd6eI9Csq3N9dj9WjocSbcZpKD 5T0zHXwxss3rgzE6u67jZ43x395UZaBtnYi +SShD1JQP7EhLttF/WVQ2ub8BzmZ1/ yCChK4bsFk4NI6lYT58PTSHEaGgBizUsuoFnBPfG3weDNh9YwALlDfT0fokmuQQpqZl9EhJbBAuQSYk1 /RwgjgJYicS2rNnmvYnC02DecGs5LnB2Xvujbe7Im7BlvTD6couyfcyxFjlq7gnVuHBECU+ 90IQycSvTvavs4p1Q3TMvrakOFdc3ZIVuWoH3k8v9j+ f64kJLfiiNT1ycGLt7klv7Sh9VoeA9qRl0dCGQ210UFycY02kq0c124D+ rF6baOuq6tGRtFsAzJrhxc6aVblmZpanoN7ooR2rsbCVf4K8/ iaxVsJ84ElR0TzuAdF0KpYsY6cacFk93a0H9Qx0bueDnNcim8Smm89Ft+srubUNO/ bYT9ao5NRDzdk2tqpc0u3faw6R+JQ0H3L9OfT2M/DOuaJoPijwrrfhXxjqFoPGXiAJrc/ jCI5ZX1k9kzJ2Gq0NA01oHip9YNwlf0h3i8KDQ+eGZCESXku4b5G2ViOkh0sSHsx/ TBFerunWTTFxdUYWgoErzMwm6H4dkrYc5anrx7JebsKOtjXjE8KKgHntJzBkIB6KqycRFX0GsKp1po+ kpwM5y8/la2z1KxLghtpCpP9nhvO3lZoEjCuLZ6PoZQglM6i3yyhsQFdOwhLPoZqg+ bs0213hRynbwH3fQkYI9iNKz4Pv33EQqDtgar03gzh3iJ8q/ RneCibn9XK1YaniH7L4lEZ10gLVsaiaQcnr55QUyemCsgcjTomabYx8F3H5EiPCdaYfF3zguh8Y1Iu1v 4K3ou5BJkbJrEe7h3dG9IzaFZ7zvsu1E9dXtrT0ObIueVme0 +oG3s/iz4O/SMsJ6RD4w/DGgNHrOl+CtN0+BdOmy9HmRNmfmnxYb6ALNL6AGeGmhiC/ GPkkIiTsnAfYGa89/tHX2SzakAfzqr2Zq8V8vWvzY8d+KGoeOLqFJJ/O0cImn1De6w/0630G+p2cCFiU +v3uDsug49q4ndprtc4epfuu7fxBZK4ylJpOFq0oIR2p8z3TxrE+ezE4u29xTxrs/ mDMclMvaLcqi64pUzQiwT2yoFPLxmZSB1jBoruqfFeb296izuVJyg14dZgzlPEFqv5YKMV5bbtK9tulB 7Dtsg55o4IHrkRsmXf44tqV7AvuUsbnThWq /FpL3Ez6QHSOeABaojxVttBwzP1xju8FtPyWqKwlDUf9Y+AyD4m8b0fg7JdAO7MmvElo+ UtZjtG9KmfP0No3f9ea+J7bw/dU4LlLCqVaySWeF5YzbJ3Hz2mx19E1W9xgi/ETwHY+BpT7BqVv0+ e3nlJofpbKVeR7S4H2OMxsj8cJwifmkdmfz5Dpt57bMmOXhk7FAXTPyQgz50S5aqCl0euHdfBcamv1Zg qpA5L1NFEpX1Htnp5nX0vr /wDCSHQ/WJqsbzdxgK1ktD2ei75Y1IySwn2pWd8wsDyot2nX406hNwk3QiQfi3WIK/ibxZqPi+ 133K6R8vbENl7RJkzG10nbBwil9OWSnMvMnQrIKTgoVLZrkqzjsxdPiOqEH9njVrLZdJpZjCUTR4Q5Lo Rvd9ziwFQzcZOzGYApkGgD7xPhKeB7caNjCQymEhVJrS5szmrMIE6N80gMF1 +4U93qhkHh7QzJ+i3+oa1o+juZ4d3SuBuGVttaCfJN7ZnyijCDW7sx3sH3zj7zFskNb8l53070r+ z0Gk4mfaozYGeoGMq2XdCHXC+z6O2k+YGDEetKu6ypzT9/okEvIEikamax9dmFnEl+ ZI0QnsNfB4Rdmc1yMv0o/th8GZw4ltfe3tnJhQV/U47Nq74Yk72mziObI+s4jrFlGiWoeIyvP/ wXJZSnzz5m1YQq8O2EMwT18gG8kIIE1pFMt47932Q7l4p65pTmiuGkc4Q7n1TfSxxS23H+E/ WfMwtlZ7gjkCcz289JvCneqg6IDPunoy0b0GxR718zl2uSxrz13p53uQKjUm0CDr3NxTsiMOxiqPh7fH k5cQs8nb3qS4iBPrPB5GNfAkYqvyKbJljrPXc1D2LIWxniGm2NhbWS39LiZugW3Dc5gExVmZ32tffzGl 3t7367SYC2BdU0LkdIx6X2fnjWV4gF pRliJMGaZrB0pf6A1egACfwsX7e/DSyhgcO6EudQsWrzw87byN/ lOEKL19U37deK0Hpk4uBj0A9qjHMwxCwaYmbYHUysmxHo1V1x7T2hIqgxk4Rt9Ntz5zxG2ZWG6rSevGh a5SfLl1z3ERSRa4z7yxiHfR6snX0vd3VsOW1v +ml0INm6MtknHPaaACXw3Z6yiQ3WlT6E29+Jfj+UaAzQ6g4l4h/gnKu5A6Cpiq+ d8bBK0zefTRulrjfAMtP3FzmRxCIx9btuNW/GaqWih4RSDv8pKbnloWpt6y/q3wqCCG9+ Zn7RE57sGmBAYSSVh3hqP8XiRfotRsbnleBrlp30l3NGsSjbpcvbaicRs45q0XGJG/ 4qVD23TtvO0YvtA6ewR8yd28dE0aNTXqQiF8U73vQsAiQ5mjiLTlirmVcmsdaE/wCLfeJ/EOv/AAg8Y+ CgViTPos1T2YoYagmGsfO11l2fmYEDOTiSCNCPCrzAQ8qDQUFBXuW8Xuny4wkg6J8FrWrjOx2Dtqjm9p t /zfLnD7yfdmbC5K9xEWKJsgwjLXTqCSy0XBf3qx41sMW5m4rGkHJgB2Hw/ZbA6hy+v+ LcNghFjB8YpfLi59Dh/AM6qPfEL8ytemM6ePpcRDxpM9PibJQfO/0y+ fqnqWJ3DgIrO9HnfBHMVMCe75XBXTwj2q+t15Kys+lzaGfXHOqxCbqOTR4S2qN07RQlhpl8Cx+ xgQq4Bc+yNBgIx7X8fjqChPs7EBqIWqaNQ/tsZF31yABFswzTXFAFWW/ f2P14eMVJB7Ttn2bZODnAOJFeNdD4A1Neoztq95s3QmTIDr4zoRvtolbqitt+ OlSWvMoP1V1h8LPBA2GxgiyT42FUmqHhXOW4b5Kb/appq913J6fkQ2UtANzUjd7Sq1+ AzQgiXrTTVHnvmY5v1kE0kL4zkW3Urw8c8lXwIjGFLbA4Zp368qX4R+ OcNrhtgMCPEwTPz4zzI47c6paNeNt5oLiHOFgaYBqXPSeA4q8+ Fo3aXwW4Z192990RCPOgv1DzOxdNyUx5K55p69cfsWRbaEcsb5QO5t4DnK078h2tKm9Wk0IGfvsf07Kf DerCAyRm9g52qolIl9et5P4yDL8A4uHSoRzW0Eb6bKp1FclgO8FtGnjS +kAS2lC8oZ474MzqR4ac8wSaSy2M7T4F+EvCA8R/UoL2fW5392tnHoS+ 63NzQ7ozy8EocNXhXsxjCW6YvjkccRKl04U3/oN3SKhNtiavk+CxhRSmF77NkM5okatY5Axdg/ JibrXov7Zr3mUZsFo7sEIuenQ9tkjbkaEXANDpnvMvSSubFl/DX9s3U/hBe+WXEhXuLQjN3Q2/ XYzq6n9SKrGC76gZl7idPtbhWjX4g1OrwjVSPCbgQoX+jjt5fHISC4zs4y0qhiCSm/ E4TAN4L92avfn0Gh/JarXU4dMAJSRC0EgGomon6VzImAUlBUs4tNShNHREgfoRpJsoBTvkcfZJTtj+ Ubl5DuK/KT45iaDwSKfPbrxDmdyhvLEC7nKqwq8bRsvP352x96kzaH6bunEDkFhxf7aQsA/ t93G8StFi8MchD4gDsL3Yi2yAo9oJ6agN6ttetAJYvXYVfC0F1y67dyBSPnQOlaBUSml63rCtR6p1e1i ocst5wpJlcav7ztneis2cg1 +qnzOs1E0Xd+JOFxuQ62+qeFv6f1xuhrGZ8lQu9tCqfqJ69jl6iwsh+El0/ ZRwsU9U4DMyJ4zqgkdGxkzNmeJdLXxcIdrFtUc6oIORMspV9Nl+ tIrr11eiwAoD7zf7MRxs7DmGiECinGwYuHyDz2efonWnp76SjasVW+TbI3UtDiSkjeGbmGOrmxf3Bq7P /qgmsIfNvxdxyyW9/O23GIWDaBvEswdCSKY7DuhFxL/ FlicbTgu0KzMQ8ShxmnxdU7nxvrb1rYpgex6hfAwo2bt0+1+4w6jchaQjLsAFARxCpa+elahoT0v9b1p /Db4WS+CvVKJc4hmWsyeWwlVT/ ffQREJdWY9DMcyUezaN2uy8T9q5LzoYbTx0ZQyTpAeAK8VLxD0yzNaM4rWyya6Rjq6JaGsg1il7S95Ys 9hFRutqrHc6qdJ7SkYdB8Y /Ys04oiokyujM6xkQSexIIBvpt4xxcmp4YtMaQKtPXJxdkAjHrH9StHr9MPdEgOrmi7lmI3PRdYJfWj0 +52ZtnpwisWvog3hb0WOWvHz3An/C1wzNqmoUfi8h9/wOLYVSEcZa3dFqVe0i52+ SS8KuD9a42LC8X7LnF13BsvBzHtkF4lXV5TXextpgGXugUf8ocQmq64VcRPI9gj9oZ/ DckBChz9Iz9xej/REVme6qa0PwPnnQg6nW2Nzb9vYz4zAsvf8hpfwZmRbM2cj6esO/tHIr11QjSMA0i+ vuJpwznlwLBH6L8+pqj7k5t1pE9wdfESn8AP/hWCZRRgCh5zD8rPOp3ejAK1E7SU630gCk4o3/ EVa4IhggvNoxQ+prfeTYHh5nUlblwLMn4nx3lXkaw27B6HottX9kijvDubISugoCW6DA64xGAC+ vqt7NFzPqymYkE4ZAYH3VCbcJbM55myuB4GW7exbaXl4tqhq30p8qmCkqhMpPnnvcDoYa8hOXyxeImZp Y /Rb3m36xXIACLqCf1+x/Somc6l5OvPZe9tmsQu2BIOJ1gaZRA+ 15MWG3I61hMY385s3y9zLoDkqjG8qq20nGSJrleJ8FMhaA1w93w5n+MsI08A8UJ6g/1OexZLyzijd/ CnTYMzRvskS6I1RxMsKqLZw9ULsu1iQzXEAsWbJoHRKQ3kb39fw94sSvZQPfUldacoavYwHjWaPLoAd1 vtL9DyFliuHla1l3RiFS5d5jYyd32R +M8vhK+u/NZrFSuP6lfeKatw+u3CR1IRK19RLaSm6hmVfx3uhkBLenDadhxIiKoTj5Qv/jrdxxX/w+ 01H2F98+mgU68eeKxDquDya7t/toMhojcv0yGhz3ZmP6qqAH5jM3XB+bHGgr+gPV/ vVH0j8I7foTk2x0v9w7vDA1ojYLAJDFhIJvMCN6txJZDtWiGrvqRKofD4K4/ nXwtety7jsdjdlSZrKa6OpXziDAHhS8i8mlgIRmQ2NsUM3uYeSqdfSW7kGOQCRs+ jWgpQ12DiLeUXk1fne0GlUglkOJJa3ArtKOBvFEtCFJ315r8bv5SWaNh8eNS4akCm+ qw5ukAm8w2HXmop/ T2G5m52HibD6oH2WxRZlWp1Rs4tWlhds4hquJldnQNUwgi1tKFxzq1XrpCF9dFJP4fUFFTliN/ iJiX0xlUKt8kk9Wa5z/ak+qx93fh0b+ tRKacw3Lyhug9ckD6waCpF5xWbxHD9U0o8v5d2ln7ccOR0A8vu6uqop8TDC39a7T1qMzLl5bPmclnLQN 8FtuDLnVIZa1 +pmOSAR8eaaYHb1RVUWEN4OsYHlF+ ZVpwra8I0f2ODTWjCH4sCWZkvSnTSnUO2tObDgt3FvFSTPe7LBS2XQaf9mKjYi7Mb8qOtQc2kQoCdVtv hn7HDVWC +mttmrXsfQvivh/RNRBVOhUectZNgkQKYDCGtGePVQCEmy1DAdE8Mj9CUTsIo80de79Cfdf3+ Au2XqKqvzEi7CogahetjURLlXeW2xnm4Le4s3stEJwcWhb0RBOc/6fqxZJpBsg9MCaN/sWxb4e+ SLqG1MVBgjwliEffsf0Q/g9s2ln5qLiSyK8JbEsxAfGVB9ZZ6yxxgFEgSh97H+M/nXlmL61jkt/ GlyGO6ud5mG8e4BkZYoW0mU4D+dzpWvKtPpeBjRX5zKJ2oUEV2IiD29+kR7J4V275k2gcMNxVmtqjj/ K3vsRFuudnpotxs95G2mD3vtuV9ZBet2saAVB8KEEjW0Qy21tigEvI8qONkuuzs1OxkZSNKTdh+ v2qx87Jbfcj4gkmQXZ+AbuPM05m0+UXQWgxpqrk3y0Fko6/Tp3Ci2PAEDai4yTwS8s+ GzVeaa0sxzJ7rl8k6n7h5vUhxrFctiJHZIFCGH8AQ2Ft95wJkycrUVKtbshrg/ jmN1R5tywR0hqW7m7DZPzUn5mHJMqBzo70r9HJj2LUaURNT5hUsMQa4r6TzTFbwf1s/nj8T/s1/G/ YqQsMzDg09fu7nL02zpGDIFFS6ffUKO2rPhMUbeEjYZ1a9FW7k4OiqI8HmnvJ/ 2T8Gs0nbaRudfQFJ3yuAy21y+ 7v9PxREyI1AEjI1gs54ObzNVd1fVmKs9TJbdzbYA6iSzvmMDzO9jFwcVWhZFl4SRVL0qH2ytif3TXAIi MhZ8pzSTY2UMYhsuLDueVqaUc80IpWqactkEvmGQwdlvP3Q +u/t/vSuUy47EJgjbefMAdo0j1qykFn+XhX7q0gIhM4Su3L5fdlYaH0Ol+cPU/9cGzG3wiulQ8R4C33/ ZMLI1m+uh3Qs2PfaflWEdfPS7wwKNPNCmaM8xKmpl/k+YvKxM2r1h/t0o7vamgg+Snj/6g+HXXPp36/ uZQaz6i34eNeVoiu64rWMRW68+v125Gl3ozrEfz0+ Ork41bT7U7K0m9d4iKd4GDpK3qle2p18RHBtWlYyLw/UAILOPbt1cPp889/UWrLTdWV/Jpv8tP+ Hpoj9By3i0H1d91m53NmGR3YYkC0qtv6uggcCU2BGvNJFu5BuDcgoDJ0Tk6jeXNMl36MUvrZZzREPa7l DYWNmfdKWAaJ0Xo +VnU90K89sgzek+1DBYmu6/n5MuNCp0aTUf0x/n5xbsZCTCVE/xLdVfl1TCpSQdQ6NB87wNH6kp/l/ wOakmO87z5+kuVOCrnHKsgoBtoJ3w+uRwocoFbmaaTx2u6Rmb8i1Z5W89m15kIYl1GFl91g5/ wQPJHUewPOMc4/HB5+rNqRfdgxBNGJibllB070145FJW1oGaiBCO/ 6ZmfC0DM05vOC6SZXWVVi9H1vbsGCXICfUu4ct9bOF16gZwyNMTWTjFhcXr6Yh2/ B06dv0fQYO2zc3vv71lzct6w5Pk321lt2wxSrfuJIuBblGYe5wps5iOHP19URfveUP/ YMfjuggFC44Zbuljc0toAV/LRmrIlI6taA6nGHxWmsespDjgbVaXvg1Qsk0m1w+LOl6f5/ aBndRHSXxq4wdXabPAH++JJp52zcBmBJzS7iS04QC2Z8d3zangwjh3+igjhn6jqt16x4av8p/O/mfRWq + MtKzWs5bhAZtGzzz6na323AHmptXoilT7XSaBk00u51gvCJ9w3KZ8IXKJ5lX9VogLtABoe3SPaWNhh5e s3W3MwWPkxxCT7H85HKb5XwUzWhoRLVNaoGBWvLHm39mgzfBb6skJKTI0pSzOaOoGv2mLA4tCZWKwnde Biy7NjfzPsJrBHi29WiW95cLZSUVe39 +mrDh9X42gopCYCN3FiATYeql6Ap78Zsvdu6Z5Y9aVKvyBY9uLQGI3EyFWbnqZmoHgDomTnZpHCLW/ rZSzQ5ppLFd3pnR7opxUphTOTNHYCFm0NlwN42YzEzHfOEqqL0j7UdNlnXUf1XD8Fr0M3p6tr9ALUXBm FmleL5srirckbZp72Iwx +yeF/mVr12TEGY6qnekmFLNY6tkfmHmkYLWZtcOzU0WCBjmeni7U6L3xIQz1ov/ jqOK2hrroxFiFHVGV6p1/qv6Xz+FbQGcx7OihjeuDHCmrPFLufQDfWarANXp3wgR4pBlqm1oaF/ DnwZu7+PV93YTvNuFOLp7MnKnKYJBl1qsfuMmfxvjw2byQkQUs+ GmInQmZ4wcpLK1DbiQYNUulcKPLNB7NiMEmNbonnX0DaRn8eGREVICU3O0k3lB/ wjYL8uoW4foVYWsFKkKGwSjAUO2i17Fuvhsx1/Lo+dCjOjoTIi4C5851v+B+J13xG9T2RDqzrXLZgJEO /aCzNEHLojMyjfKwRScElHUDBAy+/ 4zEqsDEgwVIiewlsPzIXU51Uo7TTo89JYtCtVyCwIXC443aTZL8VxH7JBCMGohDSdamlmD5yeNS43xO2 VR2Kei3cV /s9KNj4JXk9NwjTCzNcWrWaAYKtpN7e81zbjzHPRhgm+ev7dwgF1ov4xb+Vrq+/Xba/SP19gVLEKEj+ YTynmM2TnaN4/VZVGFPABUGqPvXu86ogyM2SJqI8iLFijOrJFtOnTVwtDAYSP2GSQXBTgisz+ 6xKMqsaCttzmbIQgPSPCTTZC1kfCVKYdB+ 05zOqGFAOQfhmISJ8gAZ7PkaB99hZSzWnQEjZ6wOfoSzIayTlocbaOO2/Ww98dguS0cw/v6fO/n+ ts3z6xVpC9OfhqLMMdUCQ5hDl306moFa+ VlAWHLVNN1FJ0nv8DZQwblEYAQMVhWxqbtdVlG1JxviMEnzpYxvkN3swCYFNaonMux9kMVT6NrHQDTOY N7mEXxH2ng4LoVq2ueaJA65c4pFT7T6jSCkgLMsZCPmsRRAmpZ632zr0i9j3dHNly5xa2pnt06Ld2v /63HWcBHlRBSwBYyD/JNwWITYfh4nTuRJWNGrMrB+LF84xWLTnhS/ 7QC4a45Fif7bpPKhSjWwKQWg9uoJuSR4jhVxIjn3VDD9TPxkZ7VUu+ pABmE96Mr5GxsDGXlipyw1QrIYzIITkdkxPBKY2WuU/EMvxQ/aY+Q1rgvXpNt/ pJjqfzrvaqElrrsx7EqmKEwBmJVN4Zes7SpL2qLuQycDYES48EgNbaiiqquy5Ir1h/ yDIKsDgF1AEzl7416ed/kfsF+hN8RlczKkpis6BAdkRq1PFFSQLuHtLYCmJLtjkn8oNXWm5zg/ ZXYiPMpdkYWIKIIjQjTCt2tpbQwJThlcoQbJ/MP8AY+sbfSdM0+8cNFmcyVdhdljNHDEaOde0xl6Voe/ ekDB/ CPa4T9ZsZKHIkJRICHIIN4K9HItZVosVsV7oFpMjlr5hiVm5lF20x5A7fwhTuU2nCgw2xyFTRYbsr9d4 aL1m825BbejpJszEy9SsfSrjWM5Fserzk2nDABnrQNmprFlMNoAu1Xjd +mGK9p1yJg9RcyJcNZeCG7OGXtL0XIkrdsFVfX2dHV/R0tw4r8844AC/ EHjyhdRYVYA93kRdFFakfeCAeg5hb1ubGVFsIympSPQFfbMMimYHbsg/AApaXV+f6aAIO/Hc/ nzkH39DjbQSAFDSZCZ90fMBhV8AjtPyzDTKyp/I2JVC9hASzcOS198b2qt+Ojn6Yusf+/r/ QZNmlv6PtGkpObo+vut2/T/ prm3eqWM8tGGBz6tRyqLBFSRGU3r8MMsxdWarhNRTIC8uqcGFKaovV8wt0XJNM/ aH7woxZI0vJwUq8ezU7Zt4qgJ2+1ff9ziqiHk/Tdm8Ef0VtYY8xTpSo4IRT+ 22wv8ya14ay10jMjhTeJXxYx696I8gMuMUwVo36QCqyUgVqIAXDL4Mb+NtxsrO1o7+U2os9XUT8+ EF1swIl+ zCdYa6EOCQdstnRThJqubecJ96RdHxAYrrwMKaIQdbTGd5z7u760Znkh7GP9LGNe4llLfXEx9y0lwwtc W /u726a+X5S/LmlpnUzCT0CsIm2GwbTC7hWBv1VNedW/ZCNe7T2OM7Tliz/d/ 1krWZF4lHuT4waxb37RgJPK0tG+SJ2MrUtnDdnm5OF6UhxIdhpHkg+ WAfrWsN6reBBkvrkiMhlcUsXtsmLyNsZlBnpQXAJLRsUSrj6DLR60rlkJF6xXojNQTDFwtL52tGZb+ QxH2T0lRFwZ0iLa3EUWbY44eXA7bVd9VQPqkDyKeiX9e4rozs+nuefh1iGNz8a6X4qh6yAbFd1m0t+ RMZFvXUTUQR0fB9676azvRSnzBFhMqqinYj9txeg+WONrrXKiEjznadP60fa3zPH9asERzee+ 4DyGIXLI1jFh83eAAJ3mKOb2TUUSWEgmWWJyCLIdhX467aKU7tyR4FBFegMWbH4w2TwXfA2DrlstT2nC jmA0cWZpLJUnWJiDn3mlhp3y9k0csZNFhhFDtzEun3Or8ZES2PRAStYsvb9wIcMRiMm8e /JAifm3aEqXdn278a23hgpk7Md6yxg7XojNxzcSkScDW2fKnmM+ oOlR8bIA91Bt9xLmz81YGBkwES9xVsmhuVvybjRL3Amsr+K3h/xppNppWLfRriSPQbfStRvnVr++ ECIjnT9VJiI8wvSP3Dv02uMRiZizVuEq30IeXW3Zy8dTlO4HT71gW6u9R5uC4a3yhNtb9dHa8CkmYdRb QCnRJVtZbsJAp74IOdP /xZ+ D6r86l0ZhjYL9U84P4tlZ6XfM42sqYcyKUUhbMsCugSW4MWa15RJ3k7YSnRWyw5hw5zhKj8VgJGvHMvK Ui35U6c0Z4T +nldM+36Lr7D6DKSc7pfJHB1oCpzJCsEAFmeFclBIFgZJmhnCojlej9Eh3nhv/ DNczaoX5hb8KCDQGBBFuA1ps0wyjqitq1E7KdsaYMBfNbFIpy0x3W2bAO7H0A/HjTxrNnp+ ruUOvtFGQUiXdhzfQjh23T8WEroF4xhmhTnEqUH8g7RGQXvysDtYRns5R2F3XO/FbXfhrSr/QtUPh+ qelJRMUD6jXehn+KJJ0CsfbL1depypm915Ygo+ RCo1hJUX2s428LwEbVM7X0QIY1t9WqUbpxAxwQb0K86oI9VSf8jd7IsgAbIzSBm7SqNGvC2zwgp9tK0g VoSbKTV66rCMArx1R +UVg1uHvarXIjm/kduL9m5D3qNaUhAZUg2iqjSIAUmxdQcLSOCOZcYPXcJYQ1EpuLahYuJ52hpEpdeW+ rtPOg8Gt+x/pXXW46pO6+rmuEpw3gABJr3Hwz6qOuNoBlcdWdQZQf2BDoYmUPhe/ lndV9VneAyoi4klPA3CxBwrVYRi2mLp2b7aujBJqzHPZIOvnO2dwhG/nEotQ4V+ UiKCAtpY1vZP2z4bAlDT7V6TgT32O/ oCwyfkdMkHyTQQbVXvNImLCVd3kWNizBrjQj3YMvjcoaesaodX9oGAOlA1ouSYJFlTXkuGyCmuSD1H6D 4j4e5P86lP2cykjNa4oP9uBFuYrviMrNEY0lx4T3x25915of4kha83ajjpuIhghLCfc23UccFWQR58yw ounK75aKqId79uVCNFLc /4h+QeV4JcHEkKTgNyqfdDolR3tyZeBGz4nFTQmCKEU6/zUgiBknhr+vW9fM6fo/ VY4x35oonpKPB5urcHYAJhR6Al7OZ1xks+z+EB0fy5jrForOKxFuJPR68qtkQDrbKy0w+ FUtxhZpsC0G5mDl4TsIVpUnrXRcG5qHq9sTnshiwFr3EwmXEIumvrTLxh8Dp9fZsmqoKN/gD4e+E/ lAJMG5dt0TfQ8g0vCiFaQ3gF9KSM6+fh5TAi51ZYkqKS08uynljFGVf+ dghWr6F5BtPq5PnCzazS7ObnPwMwIwGOkVk6dU3f9U6ogd3ijZHmaX8UEHlxJWE7poClkWwTMSJV+ HrazM91doldWp2BYE1R1kvZcWOl1D/ IMTzP4vGzSDp6qkxjoSjgSho3x1BuEWlRHco3rjMs09tsFD88c0dnPzZqAJkt8S11t18mP2bnpDrL2h6 5 +DKe1wJjJy9upw/AMTrTr+GXSsOSo2Ng+bLyQ81XI2tojUdQhJQgJ/hUdKSVCOHE4Ci4M+AXw9g+ GcqbCbB16g42mCgSyjSjcbdbmwFqOhjwrus9HEcwgjK3PYSpEeEYL32vDpwse9v524Yz73Jkz0QHVErC UpKzERWebPc2nOE8kS2dagDVVx8ruazGmzNOVTDHFgo6IRUk0MxQyyQjRoMLdg9cfH4N8J6L6Md7gz +F58aOuY8Qila+solMWaOLXnwaJPzeAp8ib7Y5Fc4y0O+Evwl0/ yWkAtndB40HTGm36Du7x33001SmpW5jkeQC2NjUGNqIHsoYnJnR5tmdEFYbk8puj5mG0OXi5+ 7n0d4xJDbJi2tC5djDm2UkVAgF9kViuJS0KgWlkpZ2OMe0vuS5Bko4v2n0O0TfNtoqpvgH1fyeG8uMWH ZS9Xhu9vby6Va6 +q/R3Yoz6DYlhIvirmF9byxJG1uRWBX7iQj77Kuzz9f+ ZVr8re38ljnpA1GG2lfwaFqs825Xcy6wrFsHBjkp2u8HDCN5a9NSHN+ 7VCC7iatlH03YMfJu1tBoKGFsQnVl8KlM8b0ah7zz6/ B3AO8aZc89oIXrPagkg73EAdtZlEqVubrmqnEOQv4ky5z/ iK9S8Dc21XXe4i4S7rzdY6G7KW0Id2sxdp1WtovGJXud2mgYpUHXmGlb6TBuoQLJkLY2T2h0vb6dPlfs exTgIXteBGKez7oglV +s0yvEcyc3Uu/MqKCgklEp6dF4yj1UfnR85a6D212Owzi+9GkG9lRW6TRo6N/ OrjhX5ZsjLDxhu6aQSDkbU8DR4gBRp6CZrfBV/erOZxeuY9fWlRRF5MUi7m/pK3m9T3LuW2F6jN7+ OM2H44yWKAw2H0ysR31mD0BrPiCjuRI4jNqm9fUvQhw0RoK2IeAw4CNg4899lz2wTU1zJk6d78+ n1G6PKqQfyQaIzzSH+l54fSKHd2mi4x6FjMbYpus3H5Q+LfS8e99UkAWl8r0s3WHK1tee+ 4eEvuOrjfmfIu123zKOSsam5CHHUCtjMbHy7xZkeiQ6e5z2Du2Wr+DtEtv+ VhxHA5NJST9i6o4uhKP3qWUxfPMlcQ8lk6VztBAJemCF6zUp8PHMmI5xq1Q2mqkjz/ XwyQ1opDmA00GxGtC5KWRIOACXU2oQgdNgR+56zaTPL7ja/ oazO2Ke8mAUlmSi9BdrdN96pkpZpNw9j0v6L1Q1G13WVkxcwilRsP3uZ5AWYvDtz67vOnAjqV05K4yvh y5SbCd20rR4Wbn14vFsWHFKqAkvnRAr7hsOl9egb +ens0dXl0sE5F2ve+y84V6HsNgDgOSl6Vx1w1UEnBPOrPJ54O9Bti1uEqwCGQKOjYjXvJp/ boQor99bjZDKyagi6QghcbD9Z8CXlxJmfVUr/qCwkcq2fzZi4PGnB8vsZXVnFLpNJ5az66F+ Lmx7M4vzOQ4O0K/ABLusaPp0+o5f7X3skDxWs59dtx9I4aterLpj5v01ZBX/fRSyzUAQt19+ uFvkKeE0AxNcBQe8GrYJZ+AxCYbA5l7smv5B1xG4UN3Vat/NUtFSI6mv5Iy2Q4/ JsPD6X5M8b7hmL5xGaclwWn43owaozTunyMKbq/M12OnqSzgd/X/ KARndmshkLwCez7U4b9mFPQ7FzY0iyOBcJkh9/6jMRpUJMc9aEUhqM8nMpBKz0glfFvj10EJwf+ 3yk0ot8d7X5Ow6wE9Fce8zCmHZPfwRrfFZIxGv6HnEeHqFghZOyucK0R9wzl2U5uN03cySDS2Dnm1PZz I8nxz5q5xdXiDkRagM5x9tZOkTuxR7OSry41k7zq /OBqPp59kUoUMUd4Kc6hRhFkf78duafIAHaLxtQ3cxy5edcfPmD3Cyp5SFO8EUpE9k5owI2cA8s+ YAEAQqWNUkPhea2ZSg+ S5rnOzDgw4hOIRR71ryOrXyLNa0wCXGs9AKo3joa7Tni1fKJ8x8IqdfxAWyiRfQknV75O2Yjk50hwMG5 hdRiaD0YSmtG24tWQR1idOfPDRxooTncicQAaGMO37vvaIXmoSWSgtFkW3r6 +bbpyNEBZVPZ5BeHBSnFrLgehm6C4V7wAib59jqAd1LDSz6marrzcctE/ uGbmQgh72pYmh2t8124vI5HD8ztAP5N3Gn+ 9ciadi0wosr5d0aSglIZbJ6xE4UYOprLyr7TlwG2TMjszz11kSWWbtLsRChZ2D8tqtrFxfvOfmo7W1mc Q8a62aW8nUd3w1Pp4onZps +T4to+p8ZifB54DnJv2CDA5IvJkcHE+648UuP8teA5IwVYpskQHj4TjiptYUyy80+ xrENUHpsqIT8k0akpyQryBZhML0aLFK4SN95aSPuiCebpF4195s2dYgElG5YcjU3g3oo52j3fieLcPkJ cBe0SNtTz6YBP7Fw5IpjuIneiwC + 5XfntesPJawHpUaUSPko4fP612O8yzs81w4D1W0JRZzRIAM2GGkwL5FTr3zZ7XsTKMhk1ELX35S40Q2v kLcIvEJl8bUBjYa3qHfd2F2LITRwdtdCejY0tiEnpsOwOkw3gDowEfGcrlCnBIYRzz6hOhuCn0db1OoQ 0xC0xsxGD3TkQfaas9 +p7dGwr8dfckvZlcsZo7h0dGL6+ffC/kW8KwFk3sGwAlwuuj4ufCeL0f69O1AA0d0shcO4tHJ+ D52cflrz5Thb3yGqkE70grgac6Z9+hgfp3xOqN5Ccc/fELwp43+FPxH8O+IPBFhqvjbV/ FGvO3q7Bw4TQi9lxnFZQE6Yl3e0C0HebD5WvE1ID8MvFM9HblIpOB9BpQ/ALgKtsN5Z/ ppNtQuvPcJAbYpptcBk0h4L4Zimy9a37Oi9uTdZXxAR3U8DJvxZqETW6LLoSdzvQTcaJserGGfefLinQ nzyECvvOeMxww2f7jWG4Bj2GBrAEsT190LxSIbe3Bw1MlUCbHNoXt993zUpukzsoQyW4cRvUeXRkWoyU aK /eFlgVbFr4ZNbn6pivJ9a00FNsfL43d5DP6qlBmyqp9b/wDE+l2kkcM+kurDQ5EQL+// SZahjzLvvg0aWOhqqvecsethAUqgGymEMC3C7nmXrx659c50CXn0KvDhl125RUpBpUka8LMoFukcbzuo mHaMhYyXH70tMIlyNWMemJyEC9af6WnW18z1laVV5SqsBXpFI +L/PTCLdvvbpp8oi31qD2gdaSrmhxZWXhCmOzEEiaKTD9dxaOtwuTsglQRjM4a7GXze8+W97/ new5i40Tx6wCQzDdDPDsDp8TlsYHKSGLYGLNxsyenws7a5Fpmvs/5d/xaH7cH1k/ VlVaCX930oy3v5BaW3U44Oyw8sQeg9G71v3WCeXUmJ7hp15eXwuzSbp5ogHlyki3dlYMhYYw7M1hkyGV f2OxVm1sqinzlr6Pa1m9oF2h8ceo2w8gqpeRq5TIZsxZmvUHGXMq6BMC2M5ltwyF17bJw2vglqD20kHf i9yJ3C5IfJbGm56e9NyLbzV34hoFJtXIPiyZ9T1o7v2D +vup1mL05/yZx32P3N6ubDOx3LLxCic2VlohS0iWURy0xywV12V2/c/DXw+2Mjuq4bML2n04/ 6ZvkDe33Y5wha8CDHuvmiUroMazPRFmMDtxZh5kBo5uhl4VUmaDIIJt71BsL39PwKzm8ufdBnzxq9sth E8DVAyfr1qfchvJgtGMabExwYvHg /DqE+dRlONV0/O2NIrXeMHPprtqHfSftlAsDoUSbhEBocRtjerXhKpe+vcliVq7ocD+ usoNySlQK4oPIuaUq9qeyoX+ GuCBkGINWMuiNjADbfwI9ccp7SI9l6pZ6ukXzqk6Nd167Ge5xnfxczjNgixTIU75GxDGfZaDuveQ1pqt XXnuVogrMSFn24E9lBbd2P3y9fVSShNks2C /WZw3jyQohtztiBDp3J9q2J9wRvamIJ2chlKtS0w3dggyh3zrzyjGRz3OQOKui2c9csz4loVQT6qwp7g +HdxsHDF0PyVmwbh8CLb2Yh0/VZg2q3TrkpX1Co1XV2WFbG3ql8T/ 2Qs1L5RothngoR7gY4Ak6e6OAiy9uAJ/ gCEmxcOe7znfrUlpbl3e0R5d7OaA5N6ARTzGzJ9mHR2P1GRQ649UXR9oKNEryjhSfT8aW+ e6T0Ks4PBtLquW2ktFB1m/ NjqkECu2l33XYPp4hj9PKoCcj4Ak2bY9s4q75qEWe4TxNzITRumK3CxVZ1bNRylrOM1a9K+DfH2uX+ cnBMUwE0vcuJtS0gUlM33roaO2qZwWBwShxG9gPi28AD3+bzj2CqVL7ycrCJzIscZJM4ZKxozYxS7eee /pT43/L30YBVI+n3+gup5m5u2AdaP/oynrpKIu3nzgi91vy5ufzyc8Gtr94vu1t7T2h8/m/ gs7gTyt9j3S3yuVd2uTRymT53i/pYLv49M+Fo/GGr+ ScNupMWhb6aEP7K1m44NdpTfLL7Q2x9HMgj1wcLCzkFVH9Vrdm80cpzxCnY6SeacUc9VuKcEO8xm3j+ 4l170i0WDstNAH2h4VVP9cqzYeuYWFEoxikJzz6rNv+gWbybWu9i1/Atf0W+9ZrY1yMG8ojfHIXnc/ lPrru40dlOiz5ExuF2M60zEmnrllGa4d93pjLuMEmTTTI0OWz176rkYrnoJYRne8DSNeg7wpYeS7moxJ 8Znv0awWv3tWKxXWYhS4Sk0IXzX +z7JROqlWdk6eM1TbkOCRk+TUJr3t/ au9Trr60d8O7Klk2r4l7NmLlB5UO34cH4rxQyHt6TjCce7BPj5teT8UyplV7IOZQ5BRH90CO7q6C39nH 63wK8xHCk8BUYh +PX0O6r5TUnro3Cjpx2WKUN1nn31Qnkz4mGb0z0+302KOVlM+ b3m8iYC3mmaicrQSO7kWenhv4drnQuz2rNjkv81g+Rok4s6qfHDGYyHrRcWFmbLRZGSGKVYyFUXEHCLy +EfZ6mq81bQI1qztTC9w033zKwm6V0ky3ASzhST4q0i9pFxYwdDbGlyLLl0F7ss1dYoenO0d4PPtFf7o +0mpMWfaTM0dio+AUEnUd1OlxQYoAm6AUEh+K/BN4AYd3WqLAl+ wW40rjk6hrvv0u0BmToy2ovZyki2V68nPmQpHsZx7gGiowA+h/2ZvAPh/ gzaTonUhW6vlTWzD3g7CDdHy438Oaya4n9qCAh0IQU9r5Wr+izl3vJYS1cO4uhWJkDuuMfY/2yCz+o/ TyykKrMdMD7js3XI4ZLIXKAVsUMUuoTRZGCNPuv5dGfHWtGYovKQexJEKYDhw7t4AxC1sM/ q31War3nTCsOwnwz5+NudxBxZg6XnXUxtJfKiDvtEi+ 5oluKo1Aka549xGbuRMX6gne4BGV5TtVksC201TZPcyKzfhwRTBP8bq1p/D9ZL3w+L+ gIctiXo7WyDdYt/Tunm8kvBwc3V2j2uNkhyFxfEoEFxtVK4M0XRYcqGXzUw2N/ fnKU1H3BCgx1q2JguzfluSKIOgjwr5pi28yLz9jUfd1ZtB4mj+tW0vx0N3G5ic/ Klp0qjce4UwwlbjoyZcutDR2wqj3v6ajbJc4NbmAszPq7BwVcqfoM+8RyRyA6yxT/4nJXZ54+ JxFl0xzIxgT/hLxNp/mQIFT4DfB4AyDJfY0sUsr5qYNjqRIBu2FC47b+ 8NOzb5C9LRcCkPMLW09P4U4DlyR8NXJFpcbmQbvH/ kpFOHrwU1b58x7sY56lYaje6FYkUpeDJiROnO0i7buGPUmpcQHszdk/FT5x7pKqXaglg/4SB/ HYdmEKC4SMcTgTz8kPfuAO/ vDZ30GwHS1izJm57xo7vZVBaarlpza5Qn0adtdo4naR6aTguifVBqRczAfyYCzfRxsYOLD+ 71sMg2zlbCYjpHqZPK4DnRkCsIszrrn4VAbY6lC8OjQQoFIxZ9Oa9Ge+BTp+ pgkr0INU9v50vNTS5WBiPvd09Lbi+Lmh6Y7YKPShvyyL1mkIu60mx5SPoM/ 8GiKwq149MvC8V5bcGEzrcTqbXFCuXzl+YSNs43XyYz3r3I7AnX2T6yi1Kif/BG29JV8iKQEHUco+1m+ lXEjQWEt+e4MQ7dy2sGJm4l2hffuN+9+vj07kl3N+PyZRV0sqdbg2kQWegnf4d7Plgg+L/ Z190Qo7K5u7V+0w3/lNmEhnW7W/mcUj9LE8OwX95Ct49xYXOKx3AoWFHI4d7bzospo9d3z2Rb/ eDbpL776j/ vITE8pzyawtZrlxyLwcpRCz09Br2tu1zRWHGs2sTkldZrzYms2zqV9DoroYvrNfGm83QDUyB+002+08X +j4qgW5utgTvycK1nIDmJeaWQoeNq6xs0y+GMkmGkX4sELwKi7lGwactaejTm76tT9qgQ0lgmOScdH++ pERUr99qkJ+lfhDpHivVfCOsX/cHEj5bt2oPGY9U2Zil2G52x4Grv+H7DRL+ 9M0wiV8YMQUT7gqpWhNIt+gsWzHC7LZDSdazdgD2S14W0lc+StU98qepnXOXyNxCqFiDXuw7hl32kf+ Uy8cem8bc82H8A+BfhzZ+Wew5YluyJ4v57urZi1vnlBKwRtyJf5FaaeYBVlYlAl4hI23jFWP8/ 1Zt3fjPbHh/aljhrz/AMceALjQfGGl+K/ DyfQfl8D1CIdc4If08M6SbqOKQ1yF5nK5AetA9YESH8oeOvjl410jK0S2nmugv1Acrqfyk3NX796XFxu +J/ QvFf7HJpbSzg1xLaYPwA5C4RFRyBChj6xqkRqgQVkwgkdXE01fL7e65u4OCvVRx2LhZPlNK7K0moCI2i /dPnjTyUwrbCgvpt8lqzLgm7a4FoYFxS2e2l0J4M6p2v4A2Hgfn66KW/ k8QaLf3yKSjoWqWyqVbD4O6WcnlPfneu5pcUf2ljU3esUnfmKEErrVpa1UUbpdBh2V7e3g3WBSwcNVN7 ljnaihxTdyjCqjRhAqL3Dm7UoZ3nkXcgm0NVFr3w9GmlkkrEbrr / 1N423OFwU2EHiumfR8ne6qBbizqSsvBprZZe3wJ9akpZc0HpqfA9LqA2z0ytIIq4jNtqR9xZkQ4TmD3d asOf6h35J0I2tLFuQ84mdC8gQf6NRe2wjAERdWWcirZkdlgItgYE /Elzqvg/SvO0q/0vXCqF7Re8rQZt2gF2LiNPuiq+uSdo0u08Id3F86H1F5I+ q2HFJMwMrluE5R9zSj3fXkMf8H/vYTpTvi6YRRjQx4aUtj8As/AIQfT/ eQYYkp6q83vGgv0KX8b1jCMqkz1/6KowP4w5WcNBxKgeqrqCgV0q7s0a6bjbyCL6660Oo9+ r7ol9htRsYYgcEoxuxYXAQmq0432L37ZuF9cb4+rvAx+DsbvlgP45/4RfU/ E2gwyDhadVUkG1rJj66c9Pcvab83ZjPfUkkRKiAlh4tuGQm5ceTdBlqN/YnWL5g/ uV4MfM1VMWpxh242DrEgA3T5h4l9MbJFwlPXIi2fW1EwMLs6peR1cik7FA35hPhZgaax0VgWLbZv6c9O E5gcBRsELkogLm3w0kWqdLucswt2ptAb2zwb9G8xdd7 +wHmSQBF2oARkR2pWExy93fhdU7llSDhsU6s1T2Dc6nf6Vt+SkL46B4VNO2mTJDPU+ qhgKohCcQo6xAj3d27PHW0G4nwrx3hV9Bv9e4d88QnCPbVswTE1EgD51Bfy3vHYYCbc376Fupgzms9ri U8D0QvOQIczXFlEckZ7eAR8xGlNFqE4iJi700eajPwb0C /Bdjq/hUx9i9ppNiQ0Td882h/kt3d4zzVtqog0dJ+ noaEtJ2lOa1MSYdrDF9myoXjezbjeINPVdLxf3w8peJfMiudgby/3usPaoW2UgaQu8a77Uv+ tW0hJCARVBr2E0dlRjzRarHPiTb5xvVemoJGJUT4E8xtTV5RKtRYavqq04z0FfeAZZZBc/ cEpmUBkk7Akf3p/TK5R3Eq9lhI8L9vNpaZSdWh0fwf8zDRHH01/qD0dcxhE/PdBjanh1AoMkKRhH3e/ ic9bbN2cFvY9PXMb3KeAA4EsY1oq1C31WgBZ/fTxIQVovCGoNUwMamv4BymDr008xuo54mxa/wCBc+ gkXrlncnJxKFUgg6ma9tmOvxFtDvAdTD+y0ScK2f1R+P8Aw/qM7bMgk3ihLmZPZWvdC71IIljk+ lqcfdx9oXQ5ute97/aV2A6IM2rb2E2tjm4nwhxopMxQ1OoO9D2elCQ+ Z3U27WV70NruwpO4B3cyxgVvvtuaQpeFXcnLtyA3oE5MOl76yJiGZ/ NslD5WLZLff4L7AquG0dbkk6gZ4q6I0yA7dxHi+ 1185Psgxp2Ww7L3kSAhcOsZ5Txmr7K2I3aQ7iO3ln6Ejw/n7bwPxU8tFickoYxzE5Imk3YvJhVSW3r+ jtVsGavL9z0Xd0mcfUz7oLetTl7wsY53pjDQ+5y1NG5033mT4uqxVl/ HaBBkGAlqLlJx8iGhSdYjwPb7Zoe1j5ccr135ifuBC7ciehrc96i4VqlLmgBcCDZoXUcrmvYicslbzT7 fCKpczj2UtJmOMxAWwpQf1zSTxNkYVq0T3Q +DhSlaB0tO5N0Zjtwh+IPC+p181y5h7swsbgn+ kV86QW7i94lWexdE1cAA5bu3OpQpmWLk7XQNVAzt4ePpA9jmLgQvrxuld7zudG/mzLLp9+2nXU+ luhisNVuliuLr+ 1xlLxxiYkOs16K9j206Ffk6p8sgAC5od7r7k5eczl5HTffW8K87RA7zuBf8OCHDIYKahy3xWsJhm6N+ yt15A7RiiUnMUeLUUcFLBYcHOcC8Ja3w7jTky24ifll0HLRa54PWymHZ5rDZnm6jO6vbqF100f9qx00g eOiKhX4Sffp +FRgUb2pac+T4Vs/NOjX77clytP5xScojstQZ0+aELrqMG0OcuQeeRry64SgqgZVdtP1XYDdd+ mK722maaOK9gCCPzrnFV53LeXAqfLVJax8cf42CajkPDWg6unlKA5fBgccDxGfj4PUifH0/ DE6sHqj6WxB+Jxa4ZtqvXr+ w0d3MaK5p3oznL9Pf5nivi1kggnP3VlC5e96fwKyXsOnAYIIeSDOlgVFmw5R/NM3zdYOw1/q/ lDkZje2njLexgCRsCry/MCk5osQ3cdmBkh29+qILmPenbeLjvVknajm4dLU1HrbNuZQjS1HBQtbWpdz8 +a++115W33/SnlTgqLvDLF4AaOPcNdcIxckwfiMDTBsLAUVd4ZE8zo4hu+F/xG/ZR+ GHph4ZfPwXYu55g73MnabCsSC3AdyW2EHzsQDyTwyXcDMUiqOrTwc7pdqYmNuW3E8Ip/ nxjHYh5sjHr5OrTtIJxl7o8Q5ccQw8jVG2Xy6F6cio413K6N9sDMeWh6DlINFJonNipB/ nMy7OhcOa5Hdj/aXT/ oZyj57tMlZi9pyy6V95zDsigwfqDl8piz6sSe7CfD5UjcejZTcwZWgJmfgsycx3dqgnE5djB8pc3m/ Ka4ybll3IqG5M+K7/AFXwXPqHga/ gNzS7Fyq2l5qZEzJlH2dVqapUTNNNUkUDYeFTXdbV8UTml3AJjA8mmnt0kxQdCVsBc62ppIIu6dvTf73 p9agNu8Ft4YRm1 +vevArmNpJT75ADHcnfNHy3GnepuHfQzB+ pFzym0X25Igz5YWvZ0KE1oOn519tp8SnqppvAfAbJydn0OfSlmi0U1exfCtiFGvbxOU0JRemuelm2cwy nk8W +J7m+1DQ/D116AweM6hNlv6A5xOQi44qne86gq5tR9f4knU6j8KJjgzd8q0jxraIULcA+3Phf41+ VD0ljqIOv8qGXD1PAm8REun6KlMsIFprPifqBy95shDv5x1R0vTHiurEKN96ad5z7qzqxZNaGKdv1RoH /8pZ6b7Z1qRGA3f5E1SqyjRtZ8Gg9aggLxD2RLCgi2WlZA56dQ4iyhevHRUhVvJU3zlY6/ I6O5k2nnYxPaEFPKwn5muPpnvsmhFbxu2p8tbycq1VmJM68URfeF1HMlEyC7SLzM3sv5nwXo6iouw97u DOczr4ZriI /dUxsu0qecZnv1aCrk8vzcyl6bh6IASqVi1z98QWhICXOeFrYyMscKFGAMmQDxq+ UkhmMuTxgImVjD9VNQGzl3XY5Cxu6K5uMhKVqD/s8m+Y3hoYgbzcZFDxGzMyKPI/ KNT7E1c7smrgaZQVd1ol8puXj0nGx9iwuEnC48BhuW89KW4oSTxNtvaPPhziRwcQpuOEll+njKTd5S/ 8AD+akL0kZ0HPBcO8sltFKRvecfpsUGicpQtTSJr7TghfBsY7trvPdQW2gKerpLPds/b0svW9/ QypmHF0cRmFBoBidklqjjD/VcYy63N2u6fwJn9c+qR+23wF+M8ty9V0TTw7SprFM7C8+a3W+ 047MeP53r+1oBYcj3MfHYOGqT1UnQMMWCZ5cTUMNeVYVMeqaw80OX8gkvqsj1ix/ QXYvFzDuUxExkoBjyDC7inymNk7nRptl8j2zwo+ILFA7GP55pS3IukOnBd9Enyv/ oeaTp2OFkzMjTQoKJ5srpT3HzK0cfF+OR6EcYpTMijFbrmFSmlEoD5KzNLG8+/au/Y98X+ RuinpFdix1p0RX4tQ1zH3w1p6b6m2DgnZPqGuhE6QIIck5GTLZno2ioHV4T6fFzPFKcnCx2X7l+ MFiOY9d9ZnZ723JikcC93Fxs5MibBtCTcdExcpUjeDmcz5yNmNljpEQfCA2qEo2QGBTFZoFGq1liqq0L /3NHZo1wkv/s5QkaCgvcdpLDTAbcrBjK+0dMbQeWy3jju3dGBaZHCM/ SyYhvFokkylu2UqaPybPMI5yvn5gSVikpMvWJxH/ 3wVlxOyahCB29EaT7N9SaSiDvZh5hHU8Li5Sa8Mrol+x07wO8y5uzjRS4a1K+bbPbi/ s3Ov0S8wxJfwWprmccT1ks1FUrJ649ZPPOZbXJPEIBK4U/tX/MHIr0XBVw+ PA1M8GM2Xv4vct9eFj5Sa2JcvIgez9lCZ9EFGHeioqx2eMEryU1emQYcRXkyu33bZzRh2bYka5mBrvej CKtR5Y4 +1k9d+TO/SaQkaQKyTYaqTiFCh91ocajTuTwFs60uDwTlMROKBmLjBcRzy8s+r/ IC1SyPGqg8DQNz5B7w48AOm9plarEpxYCNdGMnnharR57suwIKBVsri2ZGAxH4ybkALOZaI3p/sp/s8/ CG4sbHailOrygjOeKXU/t+iVJDEMrWbGdVDKrbu1pExUUtoj9HKxNdFzDLImuPmAhzn8A/fN5bULxU2/ oruhnyQEK7pCVPn3fnYgqr9NwSyDO0CjaZAk2pxAocU3lCnaVfJQEHCAhFwXDgA+tq/E0yIEx3+ eEw40zNBfQ7v+ b41qF7pVwzsXHcvcKD8oeVqSE9N7i5fLPFGQTE8p0dKhP2KePQnMn49RkZux1wSzk4k9m5zn8rnsI1Bo /G8JKrl+Qj2bUsFEgBbQiARLVuTkNfC/ 5chcmNVeeWDtPnosZd6i0UDWX1s5rQvID3xupqQJc06XFv2fTfNV0bLkvVr0sci6oMsnpD8d+ WrDTuZfdErvzAairzHVyMZFHbDZyGlCNkAp7jWrneR/ rPIvu227MUgThyhsrJ590Z4H7FjDhDdrGiifc60xTK96lxK/ EEFOsCVXWHfAH1sw9u1UtC3h6hCxBagD9xseaOsMVxzZpK6zcwaofkmqWC8lPG2gOkWnREtip6VyhZuq tOtt /kohbB6QkrasWmNug1y7rgCcjhuo5m0TQvB8y63XfZ1Mfi0E51/ QOGqMi6YXZuhdNPVhxKRn3Ki0AGpvm1WiUWoMBpLS/YZ/ QZalZLlS2xu0LuwdX0pohL7T3Ujyhv8qYaeLtoqsuGLQTTdRG9h4Unf535SJLwPfGFqqdPnncufWNPpu ZHVeu5Gh /l+ jOJVduWMLMmOVwRWosy9m8vld2DYxEeSrlX9sGZ9EjOmQOwnNWR9XIcqMtM1QXmZ6so6HlaXmrkBxF1f K2q7b /n9S66V7QYKPI0toJ+d7+W+zl1A133F+Gkyp2Pa+ bT7qVyZwtby6reZjjlwjA9sAjxMrPeB6IQgdRIpVcTfugrU+ kQaawjR3JcCGiFSB9OHW2xxyWPHrfdZZc2aIIjkTx5GH1hvn3q0EK7z+e7afIdtrjm3HZ/lgU71EH/ x73aVWqKe1qEd1Fv1BWQqi0SQXiaD0qIzdRWopLEvOgJ9t+ QYkFkj1s48TXgnP1qGpR1Nr37B94nZhLmc8iVEk6fzLPPqlXUlg2wQS0crKt0M5m2xot3R5/ yxXrnACWWqHivQh9S71010wxbdcxll9q9Js0k/ JmY60w7oCAoaf0WifUPvid8Z9khBX59hj8OTRklrRtc5DbJwH3EeXfEPz1CIiqeshHI2fa79cwx7fx0i 89736gi1JjXCjT18rW3dz3TeAVy8HWOF5If08BJ23SsGl2BJlFic4yxtch0eyYHkJzFVYIzfPmkGVU0x EtuGDlOuN 4YLRKbW6ymKuxLO8aGRkEaHYrFMVGVXFyffCCphd5KaKxxKSwqJbZf17sFsxxgJS4h+ h5HhtcBeKtGKcpLLSghdDjntgLmt2NJMbPs5tH1/Dp+B8JZpEc4+Z/ sEqJr4kq17mvP1yBcbWyGiNJ8Nh2GLQhVzTfZKpnqcOkL9soWoTfx4nE7w7/ ljjSihzqkp56H43G0MQtYkbrpgaUFG3tFPhYKJMCmePK7QOH2YtoaX3jEJYbt1AZHCwsb3U8FFXgkgQO NLJ17hcWYoE73LT8ZTKo8RGBPcJZeCLdAdsSOVNDghTYFlVhCOht /xRvc2xx3O2Z/n/IHu2bta6/W7W2/b96Z1Pt/WEeT6k7U5moSGbDQl4WtcM98PkLrsAzbSqvzsY/ YLnXudTBlgnC4h49E8FlBsSoLGCd7gBXJJ2jQJh6/RdOqw28VdaLOhO2gzhz/ CFPtuFHJSfT48oliSalgLUT7Jew2XI1cA4HFwZivuO7CplQjjwrF2cbzjMIeRsKMn7y0ReTp7v2XUxQ9 Off2UCgWwaQ5s866p007 +gxIhklrci01cwjhaBkhbMwV0poQG4LwzOV4Ac5NRJ8N43cQIK6HargDZC9pMLynKi08V/ hhpdlcQRzWvm+ TZuoWvI4osZAUkgqFvSGjTPIXUt5WWIPQAf9nztpFpOW3MUIqrnuEi5r2ydNndGEKboQEFPVOgyxcVIJ Upo0RxDuAJU /[id number]+9A4jjpg7R/ Uu9610X9Hy2Svmwq6v8zsZXE5CuyCoquU1EJCMSGqji0AUELhz3tYjGI+ cJPzcXQKXFVYtTbth4DNwtDEeZLtqHvrIwM+AizmPzf6d0yuipbxyuazdNVHHEE/ FXqrCSmgDzLYMo4TmVGg5H2XucoOGTpkYrJHOJdvKUWNKVsmjX2syrc893yc8z340o7Da+5eb6ewa/ V2d+laUgGZF1OroSyDQ3/ 45JtFKdz6zK9pqRX5tBBWAp0yFneaIuJjLPgrnkMVWXTc3vxGW1FsyJY69NuSDv7zTyBVSZNR3trPFPQ OWkwPCDyEhKP8ZVVyqQ62QxzuvcrGCsb8D1ez5C5AULxbzXv6TnrRmJ1faZ /9eb+5RyYpb07f24s2NQZwIDKaVkK551/iSQZCXkKlJdnY0WATjNmSPmaxdWXEe5e+ HCl9kvMNpJmZIABRCfhiBCBmvh2FUWPyBu1CYNTcfQpagLeDeOgtQJxfGoQRRcisQQyD9ZmJ6Ic5ZQhH TXDtpOMtxJayXVOlnz1XJ +Hy8Qyaz3VjjIfCzjrJGRa+29lfd/7ohOk72/rt9/4GJAA9HoA6jFPAIoJHTt5nWAJWqFWBs/ GsSehTLccdibtbde55oypwyaa67UuMENG1lAptATbVdAZlLMLCzQNPdluAlOrNpHRM0DxXXNiHbXBtuW YsMJLEar4p +RsJXIvsX0nd/Cpdqozzq9mus3wRUMGnbIEzYk9u2VgvReNGnXRJEhaAlCQHibQJvnC8m3ar26lB2/ lvumoK+pem430/ XYg5u4QcICiOxk4aSwrOaR31BuXZVN4VZjjYDTXsfv2jRRC0zvDT0SmnksCSOORXLMzBjwzFCOqLigZo BwL9p2M45kEG01ydREXWIyTwe7PjMkgZTIoJtR2t0Mgsle66MXEUqlYl1VJTjOtRVfrZwp2RQDOv 9VYkoxgAcBgb5KrRCGv50wZ9/Fz5ENGthllfA7q4+ ZnqFUhpUxcLOuxsXXbEZJYIq9CzSjcTXkMZ6xtkyrXppH/A4n65RbSCjYy8/o4MRKwZpNqYMJFNr4+ o1OekLXQxuhadkdNQnfHBNDejE/Zrx7qi+G/sq132cyHb2E4A+ VUN3hbsq8NV5m3BtBY66vpxHC1GhJoKV2akqD+ rb7sgBtv8cfg3Q3clG6yHsQynO4uG29EWcOhLideysloe/uTO62k5q2S9dykpx/ R9WazHWE89Hxu4q6noo6HjU09t7Dt9RFtraw6M4xAPYemk6+ WCDIuj6MjvUMATuheQbdubPrBKRFAijk2gi5QjOC9kKZG3yOTb+9+h/ VlOLCsE5O9DnIhtEZ1coiCpzsDa8kUC3tA3ktPUZtExPrMMdghDeaAs7uMavcX+ hVqWP0jsa8WmY42Y9cP+GDWtm+q2s/18r+aPr+ NAmy8iNW5tQPF13iF69HtsMBygky9aR2aLrPbDQsR2wb/NQLEPK3jEEoqz1TicWo0DlBnqSB95hf1p/ SutGBzUCTLL3z9YaBzjR8esUP6KvVBuVqMLPVpCNLHjDbzYp97//WoAGTgXRfnS38XxS+esVb8v+ QMd4s1vm/XEi39wI906u4VLW+tyql0SKYSydOf7v6gMrfjW3vyh1kx/3K1rHCf9n+pJpdfv/H/hhdfv/ G3+QHqv1/qgpiRIoVG2yuCNglX93obRJH2+OKsUnBweenHP4+v5+veh/ vQsnGDKGvhxZ2wed6C02ikDqbY2l1DcRTh8xEfuCZFqfrsEQRL1d4BJzfKR768Pv1op6pH+Cq+vI+q/ COt30mNI6Tm4u0GWPwO+7F3mg8OgQZktYOKJxz8DLja3ZeSOALSfiPMptbXO+ mdZGhezvkJ7zDXAl1ZcgCNlBS5CrwFkcjFo0tFkAyj/kr/5Ry8b5s3DtAsZrbqW/ WEcWbg8zdeq6QZIajHa1HNolPKHJHfBVPJ+816Bo0gYXbsKKE1O1d+ doAdb8fh0ik3TCx8FNRAOq7rKFvfCeKG83tBwhs9i8hBisL9gd59WRFefGo93wdXuaKHrClsdUbICPnt sbshvZB1FbwzonL2JL9 /WB5WFD1px+hkrdfX1tpLt8aF/8dBiZWTkOAIiKL4nH7uGedVXnxeunwpZOp/ An2K4Xg5wSygpQl0mTbezlZhub/QeueI6AOKDUekXoiCYIvhLUlDI9ngRzkVi+ mnw32RVBh1UVPQiZs1FicxbIe+ ZxV9Y8hhTc0ofTMw9gLfb8zYui4ddPKTEe5781I3y3fPZ6CaVgLnpJ2/wfwG4wQxoqvftj3+R+ x0xYQ1X66qLHNButvGzRqRZZksuySXjF6xjzQEE3k/NEys/ uyvQE3Rlbp7Qm2WFSgkP7YNRAFlXUFLYAsK5FNJJO8qP74JHFcbmgrUdi29744NXO7Nr2nfbPfMA8sJ2 bLEQ3JcNdearKnpguWwF6zJvacvT5NuuSlTSaoFWvJlG7fr3ICoTwzpuLyXW3umTFDbP +pGSjrZ+ud5q66n4hvvoS4myW6qz6if414qeg/ f9qsoglBbv0I1VytPLZxbNvlXZr2QvrLFobrYch3r8AEgJeRGqzdtg9SwBHRSXzE5rpY7Shh2aH8kjnX gdwMKqA3R4Tmxd7JFVTFBBomq2dm1ywgYFyxepUCmr1zK6bXL4Xytc8g0owkJHb8uZLuSpGyjO55Ess2 kFbxFtITEEKYDMLRAziBBWEHwnvHWmo2sFgzhuQ4BCJX3swvq8eKqjmRLllUcH Cs8+ev4ZL3Pre3HeyueCDA9iD+XTs5EkoBE18x1BAn8q/ WUWJyteK5cnfOAnubpfTqtMl9yNYk1fXh9Fmu/wt+ IDjuMOR6GGk3Q367wu0HVc1zSz568hZ0St8cql2s6heFbrdXiWf+ o4XGeKbnXANa9LTajYgeNNQz0OqmHJxn6s5ix4/cDRX4wdocd0l1BxaVuT2MYkuEi/ acBztp4fr7r7XvbSoaZZ8tz/STR5wzFWNWYi73rchtU/AFh8c/ UK8pqZEs2Pylm8K01lxHz5MGkOBM0SjlGfAHES0hV2b3uTntdt8vdDeFKoilZKaU4YQpsUzuHnBul/ OAsl5YjOpX391rjyicT4qEDs6trci1lEpn7LW7ADvTjY3bxcKOWArRKsw85v1moaKeJF5xI79IW74+ olruio1ps8khJx2z6+8+d39L9GwoqUaMHsCUzQpBPRvVwXYWqIrutTFtLe5Aar1tk+ n21i9katqMKxhklP09UjB8PFy9U6j5TaAjds+0XU9Xt/Idg2wtTcYbitgz2BrBHS/qwx9EmD3MAl0/a1 /xC5tUzBvXaj6Dq/7YhZ6K8br2H8SdNoTkWv7g8zFky7xO1pt1mtc+ Hco6syoTs4Li1qizrjACtypFfZs6VXWY19SW1wD/ IUa9nLeiZ6mrNie7HF0fi7dfOOi9vwJ0vSRyTYyIyHQgd/XkgLQHL7Y0VTeaeWTjtDgyF+q/ ld7G0XuifdcoeIqg2E0dFco5OrzwqedkwtX66zcs1+ X3o3azcXt6lmF4DyoBpWDqG3YzEebmMKH91QemGjZtc94tUlN4ts18vlnnG9h0t7sdVw0N6Subjw46KA flR1hQBfJMqLqDpbQMhrAHGvcI8vU88AvWXyu +b/AIy+RfclIYYg7L/jGbTB34bXXNjHWgKDoUsb8OSAaN65HhtExLnRd5cmKIRwZQRHas2n4ziwtw5/ Ln11hESttZg77g10uWa92hu4t+g3un3+iR2WE2EX8VJ+mZA0YgwjUq/wmdNGemi2te+m/m15YkB0l/ SwOPe9S08VBCnIuBrgSpDMn9ebnlMcX2fpgbqm3ITOB3fa7J83efpvQIh0U3+Z/ zt0Z1AI5HbIIrkItA0g1+ 8mmRakUQouM0ox1qFEnFdFEVbmbsRbET5LAOvzauTvzfrktimcKOw0RpQyHlCpSyczAy1o0Cj6Ytjke7 9Q8ces4UsZL5eco74ERwxkzl5tGq392GP7tstM +f28o16p1zLzhlf+ 66dvM1H4O34alg6wrppjc6kztKugeVGvqufyJLCBmQlPTfkCRfVeMkRrPWDFhb7lnsvm2bLL9laH3P8H tHKxsT62t2qbyFvjGXnLDbdWzUiqD7eilM0VlphxJVZ7jcnbjX50CxxtQ /5uc8sTdWexSuHGm3DBRZRzynlDjmngqW9iu5P1Cm3Mk1/oxa6ec9xaKeOeMW27PkP+ cxZalpQdW75PHXx3l3V1ZJ0J1jrCLqPC3nXexFc/Jmqn9lD3coGqwkt9ipwGqKyWfz+x+ F8FoW28b9ncul0nj9dI446q862b6cUFuNYhtB/ bKX1nmc8PsqsjQDxTHjILa3YD2I1qZTTKljh5jB1oWJ4IA92Plhckm1DhBxEeite4rb5hWxXV163hemY 6D5vo1X7y18wOyGZyFWxSUjPZGOefArFpob /Nv4+ajLZy+ ZLpwdJyrGUDYgRdEcUH3FY2xAdAikaJr8aghSKuZbRf9AUoEslbrjs1dEy3qXyOJ2Kweu8WwFlv1F9lg ft2WmdT8lXfe7 /ZMnV3xOjyBghJSPqiVKpOYQna7Sr8tyFHUszjPlZN/WvGdP8ziDoMkO3HIujQl17jCvclem5Nt6+ N5bzkEqhO1+aLhGcGj4U9XxPKhkWiZLIX79t62cxCskIIwPw7ez729TQF+ 83RxrbDGTrgpzAZ6h8O6DSw5jyav266Pinpf0qLTCb0sHS5sraWPuaP0inxnmv+naKpiuLy/ jo1lv58SAJxqe7P5biXiz2QQdd9DbXznEZ7NcAb62jkKy+ 3aOW6d5QqnfatisFfgSOltHE1Mmwl0Um6e01bGHqiG6Q82kwMEr7ooyatyBauS4EkWbB84t8qLrb3tBU YxGfO6x9NgfCJte8WEdLsHLrV2h6yoGgBFtomkexjmIE9Kz4Zsp0nsqDywkjon8pQpUZCIiUvhp7pSHG J 6gD6v9MkttL3UcaD81KjoxkIW2gCG+9pP2vHBtna5gt7+ OAxZ3kgCQ5i8L3xlsfXPfQKa0G0UtYTjuh6d1IyFif5a2JLl01KfbHEUL53mmYOiq3gImMmNSuceCN0+ 9bhSnLYzNBipJMnM9x50w7hSfNLTpy0jDMTd6b6x68EFnAY22wLDxc5qG55Am8vrMhrxRmhEEbosmhIX c +jmnXtc9tDGvBHf0BRU4v2jnxIihpkgVrvxJ7i88SBR9SxLFIvJf205rxg049NocZ53/ 2NAlkfAcjb44O2CV8oQ95w9ie5mtbaqJOl5sVRkrn5vH5djwBYIfe4zgpkTsb9GQ0yKdrNw7W1tRskOx 05qxDQooxoAut3BSPr +OpCY5MYnfyassJjc9nyqT/I1clpRFn4I+gfV2CiGWH3nSkVKNTts5rSNzGu5hgpu1psv5f+ GLjxRokeqxeO/Ftxdn85Wbvtzc3+ovORHtevRx9c3+d9h8OzjK3/ FEylfsv477pYqQqe42dMB6qilcEdFudzf3Au+ mfidJ9TKPs3BuOMsZIaxj6P2q53GY5Sd7LbPJi6VZREyHF3x1SvtdCIJOYE+rvz3svkavL/ BowgGNj16XytXy7hnn8bn1uI5L/cpz4rIE9WNReOYaM3lAyk8zoMipeVhPD89N6tiylYX9z0svuKI+ l962r8KAo0B3W2CQ9Dg+ uuDg1jaeOBKBd0nGv3SJgygskmXnZ7hyl1zrshaM3OZP7fewdez7zwGUJ4lc879ms/ Lp6zdIJ6IyV1jHaTirxJvltN9AIkbzIvsLGwQ4Hc1Oa1ufoZzn0URkVhhXPaSt3AwPf+eoZy4AVZK3SE +KIbaBr+DN5m2xL+iy3wSpa6e0bVgw3SqXQM+ lgFDx1okDdXg9wYy9ogcU8cdcb3Bwm82eFXAyB8wcq6mM54zgR8vTxaIdb7y/ tjPBkAegY6OnQ9UHSCUsrm5T8N1YsCgHCUxvyafJYOjZO16hhAnm3w0bOjdPeXWUK1R1s1sCfddEHCND SwDF6HA3OLJnuLS2HMgGq3MzPpl /0G9hebA/ lGuenUNanXjJeW0WG4dvosHUg47rQgzWZOHpfdfxhcvjvk1pdnkA0rEwszYXzG1csEtqYWefzo9msgZI WpngiWpIio1Zsh5suNNGgxYR3cDFz3rpa4d3N2sdoOhq0M3V /Stqynpg5qhf+o+ XzU8n5FTk1wUszsgKj2J4hwiIAtogRXM7b2KByz6v23nvb2k6e3mVA0p9kdoI0Kewj56S9tpoopsxlsa wPBZJcWV +2x96Vj5jhsHavAjsqM9DjTXPBX/jvpgm4WgHFZRRMq8zRJMiqTNlKBNdx4+jHnv67e7b9n2cV/ 8l4zpF0Z8n31+m+OwWjhrDU1Y5m/tnRdZDXMenTJFaJPqhitRctr+H/AMfgnWp/ET6hq+ rasDfsuw5fNZ7dd/Vz3I7Of2M3Sl4XB+ gpHXaxEuHo3IwmAY8YrGnoRv95Hjj0mXbvPDlkttagZb5lB408oyqCG6EWltQs1FrIcGzDljVT8k1Omz pzSb0MQLZlwsSnff3WATOtFkRBJ4j5ucMgQAmh6vSNAntmfj1Rf +UzZxV4f9bQ9jU6HRm9vMGchVt3nfba+HjSV1hnEwqft8Z0Hg+tazr/ cw312WqukWFVwyjIqDs7Hq13dfWH+o+ LnJpYvos2b6g7tv4WdPSNSkGlJxdjwYYNhc6fgZsfVL2W9cWjexxWukT2x7MHwzZwbpLa4+ siGfF0n5qR5+irqdShQhKliYPM4bekzvPsi8yaogGal7au+/aQN2KkC975Mz8hz56gCqL5hgDi8+ x6rgIciqEt7zvxJNn9razpONdcs/ FzA9WkdX1BYhCLkDoe7e3Lly9m2uU1oyqbzavmQhyib8MVzDyMqymZ7LgDZ+ jAFBWiZKpVHGhdaaoMvWzi1Cf/usCnZ5dbt3c8BDIJqsc95MS8/ Hz0kvdgZS03uQg7YI6Mc3x6h9SWARDMlFXLy0pmebH+8SQ54RuRqkmxBrQs6V4y9ZwfcBjoIj2Tr/ id4dPzeKpx48Eehjo5rEbfcetz1Jgam0zSzL9jp5daF9t70H8LRG2fpv12Z2vOppNmNIqxe3KW7q4E8H wPT5R2W8oeP6N382OzexzDhRVhj +2DPaK8Um/J9MxsPoLCtammABzal8XsgFY3qV0/sJo32Uq/oZsJMmhIKFksRuTcMwn0Gor+ oixJmt0Gkqdxxd5PfxhgCIvLp0Z955Njam5ps3gC8XydcRuf9t99bUmarrce92cklsf2m3g+ da2xM7VBBr1L59IJxScVBoOrLPN194B4B0pVfL3ceLUdsn+j/ XUJo7p9C1W37T4aki06fbyGBZbgnk5ooSyWZ2wh/N953itXUgl3617lnJqgoQeI/ d0F4KHlKCB6tkQN4l2jd3yoc6r8PAZkMVwZDBjmAqX5M1kogHIv3TWnTprfOB1e2Ju7sDClmFcPv0fSu hSHIdAvjqEi9V05 /B+h+ Z3a2uKRY4lnHvr8w3rznUwKDZBek893r0Fhg6zEzXnAGl8dyYsL8mYjBEhrBbcsGCW5R2daQ0NA8cg63 AyvsSk8ousVubDcOi09Ttk4J8613k8xyonUHGITTG7RFl3iAOnC3dK7aaIz7vuuiQHp8z8yT22mlG +N5+tBNWx92WuIqjcGgfCpMquvqwZtKC0V6Np56BeiaZdNBcS8e4bMsrE3Cz+ fWTwa4XC5YIG5leIueNwdRGpG92dE8n9JDK3f/6TuYx2gtJeEWJP8FhG9I+ CqkVu2GlFnBrnriMqe5Tk4PHFYtPpROrbenZaiijuyVz36AqIjgByPf2SXVEUwvi7hsdYjKkOOHgF71j m3dUxl3Nwgzyiy /sgoLfw7x+UnMuxegwDeXHE6XzE7j2Y7z6F7jy8sjIQJ/DFOgtdH+ hVBc0ni1ByLFTtw18E13Zd6vkXzPhrqMlM7pJCIl1gttE9U60qFltu8zLWHjxWsGp019MkhB1vWHmlIv ONGCAtr2tosI2o53gtv08ie0 +0krkw4L0HuoIWyYvjFJ+xm5V2Wvzbxn3fmsTQKjKKzHe/EmblRqyg1o4VQM/ s9zzeK6yjVkKShWt8Kqc2x399UkUkapDkEpt5Fr73HOh5nqtbFDuZZny05nYdLffg86DVCQNOUbd5daw reDlMO8P /ELxC65cg3T/D7ExiitB84ubxazt7xwe6o4f78XroyBs4QChMWMBU8pzf5uegEIY9943Z8wt0g+ CpVZgK8s9Hgx6aM1g/Cuu94v4orfuzCerCuBh4wk8c7cYee6sd1a0DrQkejpW3UToidEGjQj+S6rM+ DErHiL1BDs9Y+q1ayNjuIHa4msJX7OspWPm7Usw4kbvfzD3v5J/ WXp59n7ieSQIqt1uTpUcOMn0yZ2segWH4rP3fpnQUo413TPRuhlEZnT8h668gZUxexa0QPRvqlTYlbGJ msg7FEyjZZ3O2vs2B8G70ryju0q +ZpLaqsHmNmc3Ibvg4atwyDwquNP37Z6er3Jz3wMu7oE5HQivX+ eSOqkkFReuNfNuuWQxOgaR3rdmNU157/ mBBoYDxzvtCeXIZT80z2JjhjmEoKUQmWa3RRV0lyouei2Us6Dy1psPxt2lwyY84u0mCrss3vtXVvUWh7 YordIZq9N33kjU7SdgsxczSp9iPl2WgUEtKLpwNgWwFrNmsYyNn6y0P7Wd7vFz8HcJ5hCGyfdcbLH2vu ry6CfdoUQKhfDhhXUmatmn8To3HtA5nRfRFuTkLIVhlg2QAnxrlVHqOnP ApyH5r7x3B4cs4eKVI7ddaUilEhR5xla+ 6YqDeh05EJdHxevxckx6E8p3OfJpHdvqylMCg77Oa89H4upt7iu6w9X8/ hqBcq5Pn7Y4JvcgBUgbPNazM3kM3h/thYpoGspbYy3/ XRrTvi3nhvR8Y4dhi6ChUa28VAUsGJkjb4TeseO54k9dkPima3l5CgIcxXE6tflSbCGilpNlO/Fazf6+ pLjZjABK9kWJytpmx9bngjvmA4scvmPtRWXQc1Px7z58rzWsO3egnbR6tsiGC1Fc0r8jfs16wWIbIgi8 iZ0PkmAULjp6oFwv2j /HchY4pitTYhKvYF4viqijbcw0ari+YsIkikhKx0+Ydnlg54krebc3ov69j8QOXEsz+ xb1AOKa2t73tedG/W5+aE6BDxhnAtwbE+Bb3LC3tnNmTEOD8rNexYbXb4AAWPogtrXqSBp20hwdkT+ HFkCJdrLl6rINhz6Yd6+HG5v4d416jJlqCWaost+L/ teufjYe2G7W8sX6T8aVgqMs1g301azcwHe9luidmyP2vmQalyHE4oXO8z2fjBfuTuv8qtczoG+Kmh+ Hry60O+ vxjU42W4zfcjgRo1P8rmd7Kyi9gf2xYCppq3bfrDee9rJoyNvFXPfqFq1YuJDsnFB0c0DjgYyN4ljr59 rvZeVmOAqiiN8K9livHoasT34gAtv5pcZlt4cexEvZVzn7i27HEeQXHdzVLX6m38x25u9cLEPbw8igJz Z9ycYE6U9 /cq541D+dMFXxDqeWcmxkNJJQvvsVapLskb8xLjdmOWzu4WpAB5Ldam73/WtNu/ OQza1EMn6DqkH493Id/ 6NBGM9rdCOcLqPBoApBsfaweWPadt161IfwCVeSmnoon2vjgflej46Q3Q9h8MeUEMk9+bWYPEttoPiTV /TNOlh57PoBklN3W1yN7VNjN3hu5+8r0M3aLNbCtxxqyIQxZsgBWJ6ykEi6YnN+ h9O1q9NRkEltT5p8iuo7sslaQi0KmpbteuLiq9Rj8Z5ZM67LQUP37fSkX99O8GTcn8CatWV7Z7X5Kg1i oxx /Q2fHqG6D3MMtZDDe+JYg5dWm5ZFZFuRZ1fa3e+kcefiEaJ7US++ j3gYfRKoj2HqeAl2IBVQd9eKq248sQx62N1V828Ke8zawrwhmg+V6GKXGW5MgXaC+ EJjlzN0sNiyVh4Brh6l5T2KsucmbmA7kgPWG9hr1YwuRcNehmAK/ LVgVGEvPQlsog4JRV4TyPLxFq2bFFAxUxrnBZSpR33kKNCakvAoE4R5Ki9zbrj3LHuV19xFRnznuV0g1 ddRGgMjlGALU7wrsrjkAaeU3xNXcjJNpMxX8sLtNdoYQyBq2Vn2h8Dsj7Y1OiXtIlxSMrp13nSr1m6n4 3TL4nm9L0Y +HdN0+/ wuFtW5pNX0bC6Gh4pJgK8byu5K2Bi6DpM852umMVeyAy73w8TrfFNWxRd5fHPP0MtjlCxttQ25iVm6yb fcTzkGHz3YKTFkcUoeLalgkjLYEsd8d3rGsgi7aa70wZ8Qt55EGJ2jpnz99NMs3BPEQDDtVpZmC8ob7U +9mnqkuttN/O9E+OW347oRgVrq2A+ OggO3ncqGq07k3EUySd44eorY5JV5fgK35VqF4TMVWxpvSVvOnUioGcd0hgU5h6kCiBlvEQZeEx79ll2 z6DhDyE5K3QW / B7IIb1yjdMJOramIow3kVjEdxVmzmEcFh4Erqck1ORLav4c06rRGtYNy184lhljnL0ofyF9qWOL3iuud 9sv1vHfE2rFddf1HKz0WX0ZZ9etofvoe8I3J9xLhw7vbqhtUh5wIF2emEh +ZF+JOtaveT+ Q2pFZaaV7R6xWaD43nBTjCmX4cKakoZMHrjyvZvy4VauIpCcn0oezwgLdRkzBZbVHfX3bb5odqrcBMi8 1N7aVtTjH4txhagpHckaJHA2 +zSNoyT31OUmPhvUnlDRf+zFNpWa7+CjZhFOk20fBFio9dMHK4Wsf9M2N2Lda/UEy7WwZ/ sPFtlBMmpRR6/OyC8geNKC1qNzA1zY97b8C8WCGzGlj9W841802195C1N/ lrHmD4zerb3aL5i7Hm4y9s5ai8Jc2ZxxlkSKAijxCxNmWFDN1LqyWLrQYcTbtp0uQB/klg+ lKNWyq5AWut3i8PyVddQIdjTqv997F2ib7WlpSKxD0vobwjYsN80X2SPFXgnOzqD1t8L4tqyNOCHXLZ5 sbC8J8Y +LOzkPvGJZdCr0j5iVQ/hTT/DEIYeL6gZ4AvHF2SgTRdcxvO2nX/ n8Z06JV64SKrw7JMfaJL4Gpt8fWxDV5ndNksc5f+rDl9rhyou15P+ fc2ISQJoxfznWu4fu0b2npd5Izh38rEzckfF0tFap7Cc70hm5qjfdXc5siZT/ 1XRGqjzThtzIpUN0jqFB35SWijIddub2hmVdE3ftJIS8Qp1sE4fDkFgiQq0BVp/ mxlD4uuRX81yTimje5gu5uxIxIdqL19DQ5lo3/ N7zAdPBwUakJ0r2IyCb4lzuvBpsLHEdyQuipOEmKwctFm52Q7GSmQIqpCHJ2Aqk0J+ EjxG1v4Osu52NvKepukCtq59d8T7ZoWNHIncsx7HdFS1tyuensasoVsqzRMpXe/ YKfYp9xr7yjTcPod0s3C/ rpPq5ywU1ekNPKMs06BCi4R7K4pUCeJlQsDF0gYBMNpokvlmXQYyFlOPwhG8C6NJsbe89waD0aI2+ haqo07JTcbDX4w5vUKrV7bEdbygq9agIj209ftfwwsebn8w/4TZ7J/Kcdr4kBudGtKleI6o7+ gh9jAPscN3ZBinLERZghOynehTi7NdhukKyVb3MMQmCB7Yapoqh1kctW0p1f0zZpKjgesnIw5gmzukR7 TXsCc2k6MtLzKnqV5Yt42s9rs8GzVmEFRsimk1i3kbZo990JojFL7ZwhtOgrBLlC9w8tlMXLQflizmNW ntvo35y8xklg1DKh9mQuNwf /E4Xk5ppi2iEWTTo5yp3fofLP3+ GhlgPoHQRZKUDHPrkqgy1Ddjhf9KoMRpIo0W0hUh0Gluw4qO7ZlCfOHT2Q/ n5G55OBMSqEekfOTKa7i5I9mz33k4GKeCH7tMa1oLP6oyhV1OyWmtHm5foqmjBK+JpOPvLc+ FhG2eNXqfhVFnutXeCsy5KQ5MdicrjQyV4ggtePu1aZOdlpxaiEb7kntJhXl4yD1sSDkftXMuT8X6J7G gvvd9UR1yp8k2X8XLQKXevhx645oMMQHlD12Nj3OvneXyQ9eZuxOmgyBrg9CXpEpBuwXzj1X3DzO28jx B9tp +kfVwNe826hXpEwto0M3apmceS5o2Pj359E5vMWE0AvwZ3oVwC4kkOZa+2fNw3ypkgU/ Y8tyYcjsCHuOP2p4o8d2T4nTQ3BHhjP5fQO/ a2FiFX7S5qcy60rcIjM0VNnVbOCKe2998IxuP2n0715HgkHwmP5wdelnkKfvMI38g3Fpg5y/ WBd0fgK9g2Q40640vX84kY2vEBU3TudPWCkjaEjQJ5Bie6uJL2dDyogPhz2U2fg4H54SWTSUfM8hbAYz gzlM727Q +ENHs1t/IzoaQ1XmJnwX6KtUOwulcxMxl99Mk3k7VW6jvx53B3gNo93nIlVstQq65f0IDKD/FHwhp+ d5roSMqa12HjzH6mFwbF5xX2dp1LLQTbqsS3wH8mZeQgdpzFNVBmv3yC4IKR+yvHKV+rY0lifJ0g+ LXjz4e+JY9DQ901HcjJeZ3HZ5hsXjJ7sUpTrcLG02sVDQyuK4SEw41nKHeAIpVH9xHLVg523n7Z4dHeS /MwuHos38InNpoi45w3+jwOXjuSR4l45GeWvUlKucekaRuApkCy2nYefSlVV7winmznvhU+ mtizvQZ1cRpIuvrCeSHskE9s3N+zMpS8LNrsQ3m0anh855gFkvSZSlTmCOypNNNjsgEpNIxh/ vq8CTE5n6V5e6u80QFs0DyA75RLdNGR3uR2b2pInooY5vDH7MaMcFQUeVohB00bPXgr7e0Zu0JLH0W1M 2I2Eo5Zi0ijTGw2V8KTR4lbpR7eG8gjm38zVCh4Z61VmTL + imOR2xqvRsAv13RjZTbl9TEbfUgxCA3G4xsHgZTd0Exq655i57VCMeuiNDGJJx7BwAirlhrx0tzQbnD6 n6pjEn0pO9AyXvw8U03rWfh3oSq9ZvuCu3rmIisOymyjcHx0NhZNyuaVMUqSnRhmNaR86hNa9T7LSutl 5hMfuiWuJLxuvYTehzeG6kJrmcZ109Lrc + 5O4DtU9F6OFclzZbv6uzyX55nsa6VuiPHFSlzHx5ecB7gG6YV4Xk9mS1MNKuk3KBK3ltdqF1Q7wF3pb6 eoq5R029lyFG +gyCj5RmTxB0KwemRQUz6dRbtwcKHOrv3Ah8SjmwydNn4zzejmM5D3vPgC6EZYjS/ u8p8Iz4Kh0tccwtWi6s4cJbNsG5DCnfAqNcMTHbspDy47LIjN5odr2BYSF0iJ4SDQWSDN4Q+ IQg86e1zmz2uzGHin74nwC50S0Vijj0bIeKL10FxaTgi3k6h34dTNZjiU6gUPozypiKqVHu63bRBtsf3 41BrvGGf6R +p5Rw/pXgNgKDGjQSKscETWskl4jePZsSMIA9PQ0472R+ ul206eEoZtJNR4FRpy0e1uxHzpxqnntmzHgzeDontGAOzVB5bRc10rJD4vscO987vG3qcJjcS+kuLm7+ pLL/WESealytOrosonUrcs7o4RaT86FfeVrZWp6EOpDb49M8go2DpP3C3h5KqY0fY5NwWKB2mL8MN9/ X41Cm4s3hOQ0eDQMTfos/ERLLflZqtOWdOApWNpQ3cqZRmt5bzBEVsTXrx00M4O7GwtJTLm3ys16/ QTby8ZbxocJEgt3QmhuytEtbvL4TnsjY7AsnKOIOEiA9lWIwb4Som6dObSjZwNGq7EDoOvfXhUB3djfx 7CJ6MhRVHaakxdbNOAmhC7o4rCSWASWGt0cd1DjoHk3Q0bIz2d /sqReCNOuvh/pes2/kYN6jU8d8vl76WKMDu4Nni9vdXj7UGv2aidO0LY2owqwmqWv7iOYgm/ 2Pl6E4KUBtKr5+2fACjMTuvyZjhHMiX88hfZneG4auB/EfGlDl21X3vguL0vsxLVZPvnW9B+BvC/if4k +G/MKgp11ctuwfQg8FWQZlHuxp5TzT3kqi0gTvztohs5HOM04ICiP3deqYAegLcGnYdwo5z/ 9JRUAs96Y3B0Yy0JE/ UR4xKfq97cm3mdbot8nAoda9AmBR5asB5YAJfEANVRZTDAN1YlrCdptdtAhLQjv1qTubmjmw4cfuwvy3 fNavajYIH6AdIcJBCpDdjPlmAm61vJFnohHudYwshQlw0Cf9eL6xbq ++/xl3Frs2+zVo+k7m1PxBbcNIkUufEieQirwKgyMTuDOxgSjUwzcdh3e9tDTEyuAZOa2raetZ5n96+ Hfxm+EmqoY2cdZfi95I+Tq5UnM7JmV0KPTn9Q7urZBks+o4mo2uaJRgw9lOYgtGCN0IrlWeE1Du/ el3Gn6m/uj1SkMKgh/ 8X55k7Mpmy629CniIRPCTFNLhnJqmw7kdnXtVZkMngdbql9pAKrogutfK0DmRK1AOoU3Y+ Jq6wi2d3R6ufm1EttrZHpjRFZnTrF/ eQHmdI4kf5ZF79olm7WNhM25OaRVMaCh0yYwPGYyqAn4R5ygxEkEbr9apz/TONzqe50y/ JyCFfYTmQX7H45xtLyDz28upnIWErcdPasCGRHOd8R46ImZ+qJ3ZxdAcvhAXSz6Q2wOFt56+ 8kwyJRfomWUnVQO2KYrpSQ6sOptTO928iMP1zmUfRqlvltoxuorCCdWgkTWjuH7ugJYQxSwgbSRrren4 zzm +YMZVREIK+AlFG7bh1Wm7SLNztssmc3+ r6kmh3GNx7Fr00gEVVBTIp5Oa0oiuEklTTFws74T8hMYr6jhw1d/aG+ YDrhgyyb6913O8Ki9rCxBdKrcNcWnUx8S5tTTUJjbDRjayyBKndQgVeZojMjvfsrjLj3w7Oq0GBQIOP4 dKLGv3ywofH /ElFFfJvHbJlEFOEoOiRZFHNKkCj8Fcl3ztr450Cg+Y9KTX/ Plc7ywK93rUL0hs9sMFkjBOb4RAGCW6kt6hjUPLnIlngr2w9NUZD3NBLAwyiGpADccURtT7njFubh4QE Gh +yG2WVvXvMxMNPpQeJmsZrX9Aa+ AE9rtqUfwtWsE1vxAciizyY8UlFHhiAToE7P7kQxuoiwpcmAPxRRFs4l2OqwCWCr8a9kF2cRBYxSyA1k T7PHLMoZPnKGN28MCsFSNfB0LFo0sZssgH +XmgQlkOyqvt83abrMXkKyU18FuK7+1108fG7szqfyTkxZ/POKX1jmmqk5uKzjcgFNcxlybVfo2l3Nw+ mc2tZTed0UpA4EOhrL4y4D3k6Wuv1EcLXFTF4OI9HGQvUof319HIvy9MMSvbVU+VhlpU1rEt7wzr+1Np / jJ3cfyYA5biLt8q3cSCCEDRfO7LNHTORuRJVYoHue5b5Te2tzs7V0zBqSl18Y41HoT1DbmlCVRFJ9NYX nCYpFHziRfrjoBBo1KNOm4ayl3jl8xrbd3QbwBgWBRr +r/dvpuei+Ir/ rPoCDMTNdg8jNgrEk59IqkKYq5pTtEIWRLRxPWtkHLBvXUInBrU3bov1E7p05FOewjutbVlMHnNxJILK RQYS0gVCbBDDCgqJIGBK0Fei6Atyfmb5f1bRlN2BS1zuoo5itd5 +3eSgDpCrOj/ FTy3qgO3faNzxroQJD2QSqr7kLR0Ly6pd0EXNqisbGtt4BzoYJjyWd1apWE7dheIFinSH3QNS9hizzg/ v4vp1HhGjr9ipZwbgIm20484Ol8sNOfrV3ZcDpEjxr+ IE4qTLMZobJWN5BCv1052o0DTBYkCVU5IuvRxKEF5tqyRrh37njMruQfAT6jy4780qPWb0N21g/ YJO3HcG1/ ogpp1JXaViEwJChk0sS7QK8xmCfSzFPYVODfnHD6GzWuUc53ldfDeadmmzqqXPa1FsJcy9QNgpRAUUmQ MgkWCvdfJyMUaxP2MsFY1jNkqgnD6WsO9yjj2Ff /5V8E3hak4gLwn1+X8bDy9SsyRRlNkffXbS1vVMJLAfxHLWsPPUfPNbOHn1hLEKFI8D1/ cQyn0ZNNDqKcNTwW6Cw90jzjz0k55yUKlVLk9XUUFxyAOY4VhTFNK1vSrBaPBidxTxdbA3TYZsflFueZ OCQPl8rHXZnqvtP81cIWF0eK7rtU1p +538qYk38/znADv1oM76+SSuu/W+h5/ vTi4ycf3ogxYfPEACYUW3PYClIHzzKhH8B8Nk1gzhA4rqQzG9XKAzvN5PRdIwaHwVN4PqtqeJzPqkuOP 7QxjVS +4/x5G67iOkrDbxNbFxRDmODNT8Of9w2nYkMZCSCdf6CYB6xxRvDta9cLenzAitJf7IIEq8mi9B04XYp /z1ZzN/ m54nd26djAL4LfDEFBzbeNxQxZG2FEX2xpFmppjVUvGcODOittm84PFVAkNA4AXrMgKZCvmY7vAgIgYw VkYHy +DLh+qbvTgqcoxwzpXfAQDN4vgPJ1dHKQF3Sifk5tZSXPKDvaT5T3awYwjS+ Li0WvCVRhJ8H2HVoLPwgpn2bs43e4y0Ig01zS/a8xx6tFzukjEXlSMxiDWaiZjh+ I9MJefwQlMCzxlCIgAb4jVBQIqsFnLhoyRyU9RoVcQl5engvADVMWCqShpxOP5okkfvh59QDYOXWKEPQ OSWIc +StKFkeC4a+ADOCOySPHTlzbT5hnuJqNNVoDgssLiz3FCqW0u7XG18y827OtBN/ N260FzpaLUcMSMCJkXDEqwxxwZ7VOf64BzG7wzWkapweG3cfIORbeClgb+ K8f36biLneSWngcKN7BCiOVLextEXH+ JHqRBsDJVu9bd9aeHaRPAhc0RllzTxWiz8SDbrPXtLsub9TG3FD9rp5oNiOH+u7dm09/ x551R204Koga07J01pP0idjl+ IPOVhgUSANvPXzNNUSFGCvvHmPAFkUUqTfbPm1LZSG0WOuhlQP0NnbJxMyHhzowykhV0MCJFeKRa98Qj ODhzL7xwEElPhKJNFPT7TeIAYZzoXL37lA0rHMBJQtbtjRFWjBGldT02QdptBoRjD0EouZ6Jpn83 /LRt9/ZH2Gjpk0+9JNX8+npYxpkOWGSAoBLgNhtpkGSTGfmKZJGRu+Z5FMHS03L2LBIGPz+aiplgq/ DGU5bfURm9wNz90LDwFk3pP6hVSrvOiJOFBIUuzYhMyDnPDHnXUZ0dPTCQVeNZblBqn3lS1sJDGRMMeY cDh6QP8yUiixAiSZPhtlheTieIJzaQ3eQu77Pty773jJY25m5DJ +X5+X+FX0zUHvV1IfQWrcXBtkmqt1pnjXu1PAAwh+ 9xczoAEUWMbO84rBzMLu0ga6JR3tvuP6UuwcJc3umEqANiysPcqz1ZukcVNEIuJiNN4N+ 7bdxDxQVTThMdwmEGsE7xwVt2ZnWKiaRrIP70aBlWhhtuvIOeRLFEMPd9dSTmYEw91+ 0aLf4jPJVM8HFbkmTzAuXJuE99C0gfooJQtuqgm1k9ovCN356RcCiDnVi7kDvXAmC2KKamuVrBPcEINV gTKESBqH1OBQQk0gFoRTv7yKMom344jf1jnLskOnQI3hDIjXxqBEakeylpAJhCp9r7 +r4fNBhIRoblG8ZBmMTYZvmIWOWJXJUvEDp5E9TUyrDwRQHpyvYLppEBKUTSTw0O+ NbEYjqZw0evSx2bZC2LtEthn5+9ba9n/HfV5aZ82Dma716X0shJvwJygkhwYRmKw6m0IX+OP5HkO/ NKmAMAz9E90GVVCWtSBHMd1qeUMmAPgE5SuUPYE82WE9ZZOePgiumeT0MLJ6R0Q9Q5exUSJbl0rSMCkV Id3ZEJH4TLkdoefOmOtYP ++SQAvOQAMnJI+DWMP2wGZTskwochSU2obsr+1a29jNuW1elNh37D52vrq3B0u/ ck4mNTv8ozllruTVZQ8mY+9yH4RXFevRPiCkdyIEZt+V76OZKeXKlRj1b/AGO/RjehFql9tLaYFr2+ w9wNwYAsCVqRv9vTNnWJdW5H0nEGVkpS0n3ebiGP67KrcRvobjM4n7L8S1FlRdLbU52adffEopMEJJYL b91guiR45Eiwi71WoNu4SoKsqbZVHwDdFrHCoxV2nDD6Np0FN1Y4S4rigHW3mVPqqcoeMQ04S77Q7 /mi4aJ+fqggevpzz3waB33+M1gQwgHzKJctHpnHLYssnTocRtA+QAHxH7QNkjytkmCBpUw/ 9m8dfHjUZSlr9HKKQoNNt7XrX7I6UkTk5+V5Pi0nlN9byBzaQJDHUiwASuk7OI7CmIERP5jvcHw4e4yo +SWAO0oCqSsxiQqDx00sW3jtrsWiTvNe2V/a5sVx29/Fa9JKHsWPbt7g5U97igN1gAks+ 1xHmBOHRuXjc33nZKOavP3zB4N6ZyTXw2OQbtsI8W5KCycpY11PV3Pjt022f8D0vKhhcL0xsqcEtroUf jZZN00VgVsloe7UCRrt +F8BhGTear/g405362ib0sib8qkSm+ze9GJXoJlEADrznXo18KHhc+xJ4TLHZ258h9Kg3L/UVy8pF1S/ UfmM/cWQYh9a0K/2X/E0n/l+Dv8AkL/gfg7/EUkzYCip86fx93Q8/wA06KM+mMd+gCnMqe3Cqc0/ kRWEYQX8eSp+tI0BZyKS7H0rNCho0hkO4ae+z16/ 7DRsYaqAnwMqe6UuPwOGLhKIWa2EDL0cVkvomO0XTT/H1+ 3spv1i8TFEFjJjG0pwuNj6ipKvkOfRprTwUYpygIfy4qptUF+ bXrxxHBteEN5qxw78ow1FvqbGK1dtVoSBzJKZ29iVkjTuzRqXAmeB1itfm0K8MpX/ jW5F1psVCxnccV2WMC5Bg4ngb1MwDq5b8SsV7cAAxpH9gszWHcFhUp856StsxWCo/tapf0XbzjwP/ NuLBlYigngsAnFSSxA0eTg1pj8yXPa93evBDhR8Dduv3AqrB6qSgzeDi6VL2gpMgZuxDbUrLgcGDgMNw kgI0Wxn /e54NBrjIiG3RKtbGwgywjmxUt9YXTvpLhtGqZIxRP1OOB8l+WUjlZt/l/ fw2BK9lx5NoA5UZCD4ST3PSRp4fhZbzfvkamhZHsWoCmpbk9xOrb1afiHuMtr2cuHPKCxpf8VC4pLOWU 6CnDWmKs4XISQPLAXFAaigo2631m +Ib708sdm/AEzvx+ mUglQbj7f0Lhoh4nc2R0RcTbNhiyAn96O6cahrK8wN3hx8vM5zHFSViWdT3opjhUXBJJ/ XX5cwPYHQ8K0AIGRbLTtLtc2oKdCR3UOkHq83y7nQ9oo7x4ojPu3WJ6w4ECxUK4f1N7h0e3Wz1apjbuh WkZqpUJQKAzqMIga2xtwGK0ZymJzSt /eWNcgkETO2q8y/AGRp9/ tWUGmTAl1fEwOuPMGTDC5HBKUcTKB5l6VHESrOPY8MvEc2uMZLHYijqtphSxek9d9mMo5rIcd4s+ kGfi8jjrznekj05RLu990xXfSxfcbim1HBszo2eBAM888OpF+ 5rfofbvXLGYAGmmIOi1MTx6wJbVioVQL3dH567sav3AFflr5qxhiodNrxHwhUvbht5Q3u6RPZeOxopmU kusqkpS9c9Tl1qYmjAb6jftU4BmFbZ4 + GpJsiggGoDLeuO3fLgYhGYKowicmylgiXyR5l64ii59bed7weiEZTnmi9Ij48dYlOIYBah1ktB7OHSOW F5A37C1mU +3z7n98ptzW7S78ozMq5f2YU8rqsoATDecl9M6fjjeEwhTu8vCnm87d+2RVYPho9nzpLzioMY0/ VIjChRb2xxKzip+F9y8GbWGqO5i9uIHKm3ZggVw4ICcb0qz2gm3jskaR08ECHD+k5haGxcoeo7OO/ lf6zYUs6NS7zepuK4pp4Uh6MfqoDqf4WcwjZ8keTb8fd1rzFmY5I+ kjP9jhmalJXapKkH8INjzbBuVT7sqVpxu/ KuQzqBE5qN2R4Rw4JixKkMIIieVR7IEq6a6Sdjw7Vgyz9cq8cxXY6uxmh8GtiQSFkDdUBwDvFs1IzFmJ Te0mFwPT /eRiI4bsbbgfVWt7Vbcwiqp4sI8m9ch+JElVu6sNX2otKK0O3n5/ipd3TfXW+LdtM/XcKVx04L/hh4/ XTrG+fDEoArq1h7g2fZhQ68NTqtJFjID9M6PDwczfy9efM9W6KYQhMJyOukYpK0E0Y/GfR/A+ l5Fsx94qs2Qu3yDFkigY3iag40d7xTHzw2d50s2f58CrcWzpAYvjnapa7mB3fJrzz792o6tvVDpKmYOn rZn3cQGrD6O6eXMHG +p2JfjJCJwjYzF76e7jIBu2tj9zdx3X+ZqdVpg2j3vLCCwLWsFq+ 0Ucy7sj6NuhynJ0eAapeVsl7IGvAo3yJWysfqT8u4q5JXnTbXkHoDLTus8OAOf8w261dFeD8Riwf4h2P hzAxcg7w3ky1EHJqQsl74WkbkYGUNMzQoJFF2ffXfZ +qcQz5ef5Rspkh0K3ow2h6rKdq4FnD/mw2aTCIa9gT2ivbt4oiFYXmCJYjnJeoZCdzMNewbfe6k/ OqJ10cFriySV84vxg+aB6EMe5O/MBLeFvmT6NgklDvX+ Ak8l8vR5g44G5jqo3rOMSRStWKQ0NVs6JCBTq3P7PnvqZ42AFgxciifLcX8Cum2Vz0YUGbVA82iLiuiW /sf2We/sbi8EJv5sDCbqO5np1GZCjCyU+lGClm1EywqnI/Yr8Pw+H/ABRqWmWFvLDYeItT+ WjeCXgSUKmdL3giR2gz+ l67g7U59RsvnCxOSsvHDJMil3fV0ns2n5QEM2eog2hnID5kVz7nbQ9owgVW9xXZlwxwp1Qex3pkXxw7d + ChRQw1usA1vN9w7jcLS3CiovdlPrMRmebt4m5O0gjIegKXd5Pfg4H8SE5q1eImoSpyFMx3l7drb35eEb MT024h6lynSCyEuXw1cj3wXIf +U5jOBdtruyOe2BwU1+eRfnop7aXQE81yHwyptsWMKXNrWNYvOOIS3XKTijbiCUFArb/9hs5Eke/ PEln6jcReuWTc2bQx1l/jmrrlnq0JD7xMaiatwhoZOhoxQdOywOEtTjjM0z+LLDxNo/ dOG5pGeTb1Q86yaZjghXHr39QS607EJFCin0v6abOntGA8GQrnoeYtGFIT9P+ 3PoCtYApJih4OlFsMkbqUjnNe3b9Bo6+xLZWyGeVz1oGzEIOyLwqwy276PRTNzo488Jg1w6J9Q30E60/ wkvh/Wy+tUzSFPofpXVwzz74BT1gNKJUD1J8mxCRGIofkWkJ6lSgjsbTkCrpGHyUm/ cOKV3Qko95QOCSV2ujXBpH5prYB8bB5eeUMC5oPlrjc3F1EFx/HU5ba7owrJwf6iA/taaRFceI/BOi+ HbbVfFEbzq+xBztEWyQj1sdJq9rEb8PEs6j1fzE+ANoi938J3lMDLD5iP2A/ EWAFpeKrdWylPtud95CBuF4UDAMItIHzKo2at0FbyzZnZ6du9aYdEcFSn1aU6hLQDvJA2zwqb9HOQp9k ctWXqF0taqgrNmbx61em88 / bMHLaNPJoQyJhqXA4sKFJGBI2HhI4YBqov0pr9mbE4nIpo2k0U3t2gfFdFgaktE3Eck9Pr5SjyMbThJb 7CYvF /ptJzdiC2iHg+CsqcAsCJYsZl0ZbPDm7mcuMA+ t081h7Svio43WxEiH7WlVeBco7pPBQ6fpW3fxZplNIUiF7lvwJfqMZkMY0w+7wE9Y3ejO/ 3tCgkhY5kqHT0DLqR8dW+7Vck5U5JaxXhW4lkSrLB6aqtUS6d9+gsmPPzUJ9T93ShNjCwqF3ekH+ LUcVx0bg73c67tZIqedqy7cZk1Gjo/ YQqE7nvut8M62vrBm9pRGADakB1plwDrnUPWFnLaZSoRnkpTvpchn8PTq2ksskwiiAWeDFyIvqmpJcMC IdRWbkFxS9NyHjXSu5biOp2X1MpUUAWOf1i01u4a8C4kwmmzTgJll / hTm9LjSjUhSmG1cwj3Deh9XAYNepZljtxv7sP5gOhMEN4WfpgP0mHnFcyEwCGLeqPOnBlkCpsziOvQlz cAaFZ7sQw26bQTOn3ouN7mqnwVlPKIyL2WKD4c0qMVDBthZkRgHgw36QHYg +H9Ys7+IcSgygXcAzbZg0n2Kjx017CWSrcRhuuLoks4Mu4ofVYkunJ2PdSuLIyW/wkvw3t/ Klsx2j1JajJDMh12FLDB3a6UlZzR6j9vMrodN5jtcEj0t+ qxffvdp6SNwPG2bSktXA9ors1K1ypjTHthAxrur82kgz1LvCu1+zSzNKFoVNVwPxKKm7EJEsl+ W6fhBmik0Ht2ikl4u+AnBzbA0N5mp9urAbayI91u/XIpde1LckzIxybhVXAEF7dMD/Yadiel+ iWaPTJnvZtSuLjTdOSzbUdKkuZ/ PUPZewm3qy9Tcxi68D0ECixm856HRLVqdAh3olQ4C3ty76DNW7dupMROtF4I9KH9d05Er3TElJXkzvoi 0miN4y8vCp8gwg5 /eN0K3ZFdXd7N5S5di04bynKeLJCy8KX1Wzvz04Mb0CtIxkWhD+uzjSwuDsbtlb8d6W+ QKuqusMl8AkDcsyjjDk2LSwExoatpVOmh1sgnqOMcErwISDQ2oUGeQIlj9gtpKrzKtPuQ+FSMU7x+ dnfa/pkzcCtqfiiUH9BmCqDyW9Hl3URpaLq8gtqcTPoz3OdzO/A5ihTt6N3ZtvsdP/ NUg9eTcnlhBmYIQ6d9r+ikgFfG0sUmo9WQdenxQ6A+1LIIkOHY9TBtBpYOK3rl68Mp+ MIP9RwxzoM7cmAaI4jipv70MiIUAuczbpkDYf3pNFCzg1dViYpJCdjKWG5Ege7f4tVNQ/ Hib7igVy73imY+ZZs7CGH0fq1yfEnbtBHiwdH0RDXsc/rGq/I8mhwinygytdqAM5eL0Am75JZ4QfT/ EsSdgUtTyMdGqp0MHObgrWRvklZcykvrPUFeTcmk7VYChhUUftSNPr6NLnvxcqs980dFcaQMCTbKbJFr 3u9E /l9g2NnsoaTeh7eOlxxgXSrzQrs2RV06n3klUbxXMbnInYyqi6jryZp/ Ny46LWxsqfyojMQS7Q2rb1B3O5fr6Bxkvnv1wZOyEI4D5Vav4pkt3p0X0SGX952lsQCB2SUHwe+0fo+ sQa7a+V3Ojq02ccqL3yaf1DvT+yLy0fw/gLgnYSJM9reR5KAJu87eN1oVIvNtSIVaOgPa8erRc/ QeZ0rUAn+50+E5KW2svGy0hovxKPN4vjtiZxjTl0GrQfxNJzxI9CU7w6/ PuiwM5G6H2w9oJuuVFJx4m8eqi8/ZNX+MHhr43+LcsHXoV2U4fH/8AAOp+J65uiIX5sXyWC7dUY/ SbNMpHjf71Tfnd3e3jeaBQXSQVU8QpqQQ8XG0K0vKcyVdlNNLBWEjgarw5qpmt2j4rdcHNO9zzhdYbEc Mp3QcErrmk3C15xzAY52Lj9v4sTLiiJuhvlLGgfpBvuxg8czAC7X91R6JSp8 /FSsetj5Zoj+u8VuhAObcimU7tPmdt17vzrzh1LfQTKPGnlWCO5V3foDX4G1Ejbp92ovUKYu/ 6KRY7t5jvGVumT7AT83T5sieP2QGQWfDpeq8pHkl82AlXfMk9Omql+ kf6hfIi62wd5hwiJ2Fsu6ZbCTBbV0S54/TtK1++2BmKaI8+ 3I1s8hB2coe4PTQTQ551gI9uu3mInmTIhWQA2GF22E6VamsJaqseT5HC7QUN6iL7cFax9YVUL4OYfoaI 3pzhuT2FM3F5zdqbcPqQkDasKgdvPkrgENSOLRePLyoga +5pJ211opejjTnp3RSx/AQBKDLTL0u1/yfzWWSL4Hxf58FXeK3e1Oebr+ t23ca7XsZWh9fERsTeGImM6Uqr5o5S3qx/ oqK6KGfUv26UmeuiWkB8eTb2rRNYqa0KamrLkrV7jWMSqm2+3XThpDxuLM+x+VPdKzO3JuM2UhDJ9R3F +L8C3f45rMgF6Oq5Qa/e7x8gf4Dtaof5JEhqX3fsRVi+bA40gZjt04Osvrh1Uc158nY5K5+ G4rblfLnfADG+ s3l8iqa3BJe8icjl8F5WwYw9KdPj1nGxJ8ud8FQdc06XQmrv6FML963JfnE9G1IqbpqzI8+ szsp1B6eTudf/pmh6a+sRMw7Lz7D5vgvj4RNShlqi7NpJwix/ mu498moW4PvCEFOta8gq3lVzPs2LyBxjgosgLtWdMnu5F3DyrqLVPhhofU+ Z2ztZZ4vm4Ry5bkZY3P9TBjZMFxBRxcuyGplAgZwchrB7Qreoqp73+Y9g+AUm0E8i0tj+ E0kLEhU3t0ognFmAR59l0JPE+3sUbzoDpeeUi3mpP3ynMpYk3A+6NM6yILEMo1Ss1xcS+ e7iX8y8ifNdE3n1faW955nRphLRJ/O4qLp4aQWD5m09Ev3Fv9KwUGzsPyuKuzhNVLxPYilR8Sk7M4a+ ZupWh4nCLv2dvNx6bmZLQyEr5FF0IDfwZ3HlwXjJdatYWL16NYUUXdcxfcHRSw8HXsEaYQ/ VYhYAjo09eQ2s4qFwtRe9/ ZVxzwGIlPDFOs9rRyVvWGqJ8TpyI6s6vkZ67qr7PJVggIlX1nqBXNsndxYJa4L7O5/ VpZ8bwcIaFXmkjjaTsiZSPgcWEBed4ZnNfc9rwv2elFFFvU1JRRUejvbCSfEciHIj8On8k4DAi5gazb/ o76sG0aoBz4elqXI87XdRQfX6yKdutoDDynnHIVxIr3ZKM/OInFJ2wWax1k9p+U41oI9nsTvMIS4Az/ NcIdeEFlcatrc+pX+qHqr5Og7NGjsbuL8CJviDgnuGhipKfxQ5T8EM+E/kst3u8o14UlCeL+ d6ZjhDLRl62onePGkjRbaLSRq4n9RRsuG/u9Nddq6WYZ2y2ga0q6nuL0+dJUktpzIitw4Ke25qxj/ ju4qNdCs5dqkWediG1Dg1oWBh8kz3fHqgOaTZBmPt7y/ fJUyStx9lRPi02LK1qdmrUDXuOu91l7gGcUz3q1RKJc2wPz041O02DxxfY5VvGYrWlQeeZ7r3TofyVLN A0s5rkhVCOrTne5o3eV +LvizQ/F2reH/Z2Lh9vrwbubgOc+LlyyxHpIlgl9UNP2OECNrluU+UX+oaTJp+m7pc4mrv2rsD7+ AYQQw1aJvCcvAHA2yngglqn+JIrW+fAmIag8Tumsb5P8nrIviEyyB60qFjztSHaTZAf3cnJQO3/ vdC7ojhiNH+jAnr5SgU3/GuuX2h+ CJS5CyTMmfihWHl9uovAZO3qyXp1br6vgsUluKNrg2t3GlV5XyVfuMRnjtnDZUfu7g6s0wy7hMBA4N+F + ccSM7H81a6nahZsA76XLX7B7glxoaeVAK1hDdEHxX7NvfTnIoZSbCdgpgG2kzX5sekNhzJl96gQ6VMDm P2zUXp /ecWne/u17pZo2t1v24b1w67fygHyYpbEwOklM9m9HriNnyftJCOHAduRHuLlV6E0xm5j/DL4m+ VoULojKdhdJcVqJYkPaHA3jP6aKqG81ClUx+4jAaPqxVz8QNUL6L6Bk2NWiBEDE82k8dtvKygn0A4p0+ +/fF8FM9mEO9O0se1t/lTFnku2vciH6xrjFDTY2mDHsbWAmnJ79iMUmUIZz8JRgwkqhfpE4Uk2+ X7ozlKsqb3ZxRPe52r/ xiRDM2Nfjk2imaqK8lMux3SdTdltSwwAj5q8s1pgH9Gv5YjG2n4Ot8DkdS9dHhE9c9dU0tD0mWTS8X0O HGpy + AgC8xY5FcdnBSbMu4ud5LoxndyVuopZLzHATB0no2QvdUY5gHg07zknh2pfIcByrN7hLnZGzIdotrkWv 24n2nn4jzUk31Fg51TiF /J+GbRaeTjp7MjLMTtJMFVAVM23LK+dU2digUmXMLllNp9fGvQAQA5XfUY1Bf2uf6q29WSxncwVk+ yhAgRw12/vC6wV5veVw9DsqoMlMsNgUv764IrshPoYgdx7My4z/xB6xt1d93pJJ+ATuVaJM3Ym0vjQX5 /mC21ky7iYm9v7RcO2xylY3sVoHcv88KZ5lQRiFP696T1c6FllEL6C+RM9VD9pPi2MzxU2I2DispOy+ E12GQwnh8nxqa5bw6g8saiKGdUfoTVCrBAxPmRbuS8ziuy8eAyOnSl3smAW2VyWiX/EHgeHWPGOoav/ wAJTpuneKvDVleahot/ald3vrfWwibCn9Jml+ 7FJpEB7pJ2xqM6kIbZbg0IIqqom3SwAtQWJC9qyyGEo4bG742rlmqH1npDSdYI9xwDAedPchD70h+ qkMw93G8Fmyg5c66U9E2wP5kyVR6fYlxJ2l6XA6kcRh1WnNx6m9Ti3BqdJwdiyiC6E2eAzkqhykVHQSd cjydEB9h5tcHUsotlNqP8cru +MOh+Ihpktvj0vwyw6Z+UtSf0dsI50C067Bhirrm/APhMmC2JXht9O02R8Y+ ag73khiCnYVMuFf5sQPHzCAavx391wZMMRhvt6sq1EidqealuZs0iaqGSqrs9k3vyrE25bd5OMyHsgxW 9K1jcImjt + x6Nkh97pBBb0uxarT4Z3XJY74x6Y4OwLOiQcQ8UZnXEF1qouB4zj1ZxXt51aahwLS7w8kbb1CeHq6lUo FzYOeHUTmOjo5mO0VfpmRVSaTKieaQofmsnKj8u6yw7t2m0vM2HWglOZs9QStqgGPeekq1W0KuYbfJom 0tnez6 /hspMnB1Ev5K+G/ PxgqifRyeB8mNQfNCCX6jj120Cj81sF5XRHZNT3FN9kFqpUzF8t8oAuEUfAH7gVxxk3uQRUCYd5iftey MPAVrZjxlfLHe +Ojt7j2bN2A3Pc9gjH4uOwdE8dcmsK2acvJ1I32g+acHnvIbkl84x+gpIH1o6H5a+IUM+v+ QAp9Q69Eo1hLHoZN/T+6xShn15Y7q1iW3gr9GkmwTd857SE5y2vKtZoBvK7mFjwgxy+AfxA+I+ qoJdNfp2ebx8L+Ibi+1rS/Ct/MTquJjDsmrzDk9hruxAZvi/ IsZyeP81jQuJNFhHriJ9mwBdAY8tCYnEbVOKgbANzo8QKhVfy73/ gT6Gz9spbChclKb1LyZXLo8VrqY19c1UIkYY7bwrL10ph2B5Ihp9fbQEs6ZbMlM9l4C1oxQeLK4G352D phxFkSia49atB894e3QzW64p4JXaDR7vd4WgnndNoso3w /Szf0r5a2G/AAy+HjoBXOeMnXit2v1s3s5lD2I58N3Ivdx+ hNku8P9C3f2eN2Oy2ZfMdpHq0r3mdZgoWmYqh0Gvoop4bmkS5c+FNTjv/ WueRjrMfkupAOPRa4rzpJd1OqLSjXDr/yMCqt0oiMgKgxQnsZ+07sUzlZgou7FbTwadAx53kUU+ flt28t9u7ni1ew/7Y3bkV4NzFpNEQo0dy3BoKo/ F8AvAA5MPOcIQc3kDaFVI6TSkP7kHCwRI2s4l54QFGkOmR0KvefFgWI3dyWF/ C997he1KrA9KiDpKtKUfdKP0qpk1eS+ 6B03u45cp8E0mFUsInG7wn8u4weaBnbrIKS2Plw8HTez35fouqGI0P9YjLt7jeS0EX3NvIty1CcxW3ew s4n +akyy3DAfwwT3s5lU/ZNJ0+ r04x2uTPgf0bpAcp4h5JbJmDPkyzl6w8XkAyu7Yk4zuizO9pecvrrDJqcCol+N/bKs8Lv7HKs2j5PWwx +Au8PHFhGWmCWZSyzxjb+JrlNQ8+ 1U82griaqSWQAeFLjxphU1PzqDJYbGcxlO151vneUa3j539XX7U9h3j4g2z1m1RTU1v6i4W7t2W+KJE0 +/Xc23V4z+SSQ2v7D05lwgYjqNDrd2uxuQlgmqix2Jja7VE8Ifo6N3+khj5x2229WNuiLOz4f2Kqh+/ S5Rw11mA3g8LUqhUfjLT0m1V+sWq+F/DXi74f+EcxR3GEI5ZyW7gE2Udmoe3yJ1Mrld81bvzY67+ aMOFKAYfflZz0AZPWYPRDvnAjq8bnkToTtiERBoEFcBom27lhlZ/pP1knfAY3eUkewD4f74q6/ ti7vSauJxyo9jaHa4ARDu1jm71HuxQf/EA4Ffgr6VnPSEV8I+u+ X23LfwRvThmW6vLVCyIoJgKW5ahZEdpVVaW+jcx0mp863ZMR8DlMxSrd1jv6Ml8g8oVm4wHtght+yl8B /g/ 8IxQNtGjy3cge0Y76zP9HsaSzs9o0f8gOFwybcp3Q6g7jMm2FcH7AisAW7nM7KaMccsyOvnuUTptSHVu mbQgp0AEoVij0w27Jkma +f0gPaTOjs9XKf6olaDxF2lr4uziHhFIjSTT0Lox5c6PoW6qYhkf1/aEy3LgV/CXjq+qKZgwe7U9L/ 6BLjXRc8trqjW5BqrTe7r/gk1a+P0tdpE0vQcPIdhMJ+qKTwp8K+zxGmdKQLJnXX0nnZvzv/ h9lyH7E4dP+ V1O1B5Q6reUnbwzKtZQa7ljSs4dc0B35w5DKfb5hl6CwoIw2DLd2yoWmtoB390wEEe1epNlWtoHYAIW1 fXvFXjjWdK +VGbiV3a4D6Fz+jILSk3bFhgx4zssriJFr8j93VgCBtq0EwEmeNnwX2jE43n4+/Sv9l/4w+A/ilZ+K/ TNt9Ta2/keT9M5Pj6LMubJS21CqgnT3Yy24+yxku33wY34QvsE9+ b18114pGOmEJV4kauYCMAsVwSRgZctwKCFZk21b65tYzQkHZK0WvprzMa2Q7Vne8iKtMdX/ xUzyNpCS4eAIwC5HKcpX1vQahmg7/smeCNX+Dml50ZPJR+cuOvZup6k5002+ 88b7b96bbedwXhmtt5Wulc9/WuWhQ8aCyo8c8N+uBq893JOTAHA4J1+iifL3GcGL+ qgo1aScaX2hi0ve4sEEIlsfJ9uqhcoC7lPLufV4ukj83n69LaWqllPd9R24ZcFaJOAIuc5GQtdQvbaeb lyhp2v3i /0FoZ5lrJb5iw8O1ad7++3BCva2b/6RqQr74QSYcz9b4WuGxM1AxzD8XnNTcTAzg5UcAqM3I+ 5Q9siFIljRdGwZ2vv7yq0QwmK6yK7tBPr9QVu+nzI3/EX4bNmdXtmH+ 1timv246cqBgahzaq6fYQuR4JndWcOPhdhLsssQALr51L2OgAWctx1VzeB0jx9VBTfm9QUbUlSX3kVp6 bLddT6zLAX +7l9mhbaBT+X2cm+HBu2RsaX/F/0xjbb7wc0gF1EdC131g+dwqwoz9qB+ hL52i8jKrfa07deoxXFYR90fxo5o3W2sbI2dE0balNon+zo8z7PuLU+Hw/ aJlVpz0loRJ4E6vk3cFI2g5n1fwQYbyzc0VPa4u2JYbYQkIEEEDWSxE2suEg/s+dYawc4AsCJd+ Wpe7cPg+UcI3Awsm0Nyulkw2TToNZmVHYiJ3cuRuDhkioTjw3e5OpRY3oE+syZNI9r4fMtrf9w/ L35fpgK7r4niIvVs1VaislHL4gWHwSAIosMw54DuqQ1zkmQg0x7s9iyJutuYIu7Hx7iIN6y34fNP6Kpq 52KT2jCHKynqQGI067yvteDD76F5jX1NKXvIfjfVim7QLhZYGim +WDaUlKLdmpVFGLdtbo+QRpC0QDW+j+IbG+itb/ O0d4xyzXEjKniGu5ryU2h4qQs3y9pGGFYobKmns4i809TX2S02UrXqU+lG5Mszm0+Hngu+ gn3viw0clzil4Zlm/o1+ US1AYfB4pqlT7AzJEQ8bHt1Lt4lnhx69dmAIDAbj45lzFUecUFNT07RIwqm6uzROXU6C9R+ NsB6RbWa5JsLDw4oh1tyYjTyJ/tKCm9nF23zglXgKBZhoZU+f0CdJhxgeuC8gdg/AA3/ IUufy9au9QbnsAdQD49C891Hj/enfnDEscB84O6v+ ddmA573oR95s6wzkrgClVJCya0tQGs2o0a5nB8Vevy0wdiwH+ wZ1QVvawWrfFxXsgCw1utQ5J6chHu5AYqGmDNepa5og+ 7Aw507qEXv4AMu9f89ve6w8q5avPBy9Un2i9oBS1vrK2GZ7wcn5UYIZ92fGnuKLl7xDTIkW16TgQ2pdk ViX1xrj8pH +hbQ1axHZt8YUlpFDkZAioQElbZrNCjyLAD5uPqA1RdWrxWYqtFKGrW89T4M+dgZnRUJZ2o3ude59mq+ HavK2UiKIsLVaw4PYWJsdjMtUEmi+uMWwupEkWacysy+1/C340/Rc9vnCToX5H+ GaYtR0cit7v14Y17ZbjCYouzlU/ Dk6QshnpHrLCpZuUeN8jUtXC48QGm2jaDPe6hG6fBhp5Jj2ow4Efy9Rq4pmi5GUotmlfjgSfEMxE9XcH YYeS7KMMlUDCq6T7K94hjP80wSgl +W1S6k9zpVwAvpbyw9jexvc1707GCSHo0e8ZkU5KiytwOXmKZGquO8evbdRSlDmXcpUfJ7d7d/ SHWdyh4YtGfI9Z4Sbc1DmAY9RmFcxyGU8yygvxXO/xzlVr5eRpoMGjVf6MxJHb3d6R1n/ EoUJgW2VtPMvhDiw7DjoWv8lrazp6QtQX8sOn924vnwLdKktYVJGJ5kgpKhK0nUBNyK1JR/ JHdq0laikftYfEq2vqY81SSKVTfwLxApd0V9PCMm9saSfBSq6lqn68EKDvQnHFdP5963eD7Q5aAr2X8F 6KsfSIfr0xVhtFFmOeG2MFZNR2R /I/WHDitF6XA/Ga+Ibvw+ior5FqBkriokeHcWtJWcetlVd7War29oIsXYQxrh+ dU2lxBXd6m1Ufv3Gie1CcZ89oZbYvCMp+aJhBR9f0oxFTOVnVhI9bKOU0IcgXORZkOQXqTVDPS2A/ kfJKlLo7MXbxSXjeqaSvG3f8+2qHq4mYbZo/4KZye8lnrnmrAxUZFZETZN+4yrZCK4+ yH6OPruDp2jTuxtsY7M5lLEmNVdEcVAYKEZISGk2JnXgJYgp6T5qE05TPgAHHSAQRgCWCirnK2H26277 5UwgXhGoUhPm4ih79Umhc8m4j4sQutzdA512x +M7ujXV2AharsTFGgqjOPWhopaWX/k1KddDg0c8T+X1SsK5kMKSolxY5eoTjSch9z+Itvdwz+ WjTumdh2d79twy9vAIwkmLefQxaDqJTUwgIzwhCS1CWZZQmCmAbM+/vCv/UGI5AxEuaehfS+vX1vqV+ 3kyDv3v8sWzOvsQzXIN9HnWOvaFUeyPMnwLG9bhwC8OntPInp9v586J/ OQ8I1x2P1troHOjNTFjDAjFZbOzA4c9p1vhDqAMz9D6zYDJKxeSvJSaCRxaZyRyC2a9YbfMyiusVQbrx euqT1e /c790WUeiKz1V99fszUinbMWBwcvqkL8BX2cBpvLAJdqXN89VQk+0kxJPgb/ WCZN92WlOCgJiUMn1ZvNSkxrn2+0OrWLf2ngbR2bftHrX1iX4wItUcRpT7qzFD+ 4455YRmg0H2Cjg8Z89CF9Y74gqf4GmwqZInsAx2L0tmnGPsG8IVhYUuSuVJ8g0XDNfvxSCwWzx9sgVoy +RfHX1YS26gvEUwR6BUtD3M0bLidbwvMLh6pMaVlHHJU0MFAVjhyr8iVZtmvrZ+DvEXxPtvDqWGk+ U4z3dI9BI3dMjFf1Jj6ulNMBIstX299okpOVdDnds9yAogoBpZLGuppDma52l8h/ WIPr5JbEkBjXyNtXW6zUUjOf0AvgXjCq4C6qfyjyy3JEsup0wC4ztX31O3l7U8GpvSa+ lLaAacUFK4jlkecPXze8Y87fcXoushBT8as2IIO8lzMB5Dwi+UVe3k+KArN7Nwba45+ XXkweGaScvnRzL8w6cf/CMB9hicdK3c0OP9jD2umHgobOFv+6rAwUiyCgPgXFRt7YRin5R/ ja1CQXpJ7tnqtMSkDiBoxfwbEAbXcgIiFbZ8r1Kax8CMxGSMaSnMTf2MILf3K/Z1/jF19mz1d+ 1hXzkQvCtAUhOmLMhH9DWpsTbe/ s36cwOIPIMKIV1vQ2tN4DohLCbqG4vpLgDqMnIdFbXS1kE64507ccvftUff/ IVOQrWWcLz07muuTj9Sw3c616MJSTTMyekkazAXEpTaPHXsTHqK23K0Z/1rTd71JqWMv94XE/ xYhsiYvYzB44bOnMCiolXgwpL4BviNamlAcx3ACGMBzQJmoQ65IU6/S9v4N+ G3fzfCJ7m4KAFEu9gKOg9TVLgjNQJTEuncZepeneUUrvruMXRJNA+Mt9dm37yY1lckh+ Pwq6VTGdcSO65FsCRs0lvOUIypexbh/ajMz3jp6dLgs4v9mTPE6/ NIXX2hBhgfM1otxhm2GCDuM3vDheecoxJIRM4Aez2zl+ NNiSrnmG1C01AwzgxwqUDWevq00tI6aFU0gc1Ww9fmDhJCokZz6PEJeTesxBsJkOwm2573XxJo6GqO77 wlh66h1zaO95lEhaDDT5nxN4pOHayCTDwEmuDUZE9T5Xfq26pr2AjzOlwGc5s1V6 / gBAsujvkk2VgIEuqVO5BAY1hBQhUuq6gFh3IZH2ef7YYyoUDzQdQ8M3nq05jbbRvgKnHTTForOgJUZKD Am202QwPD08LTELHqPrcSmTZB +k4wjHNOoi1W9Qnd6NYQ25+JtbWLcXkN3BrwfJI3GVIKS5aCoczhs4qre69Iin759p72+M73egwe5/+ A1vs/ gNCf8YxyhMnHckzQ5Ta2Af3VjAvIgD3oUW3LoZ9hCYLNJReY9CRCffOMle5rdPbHEKAXsuj6J4ndD9rq GgFsioBBVWdSrIaNysS4CtgGsa205WE +FLe/oV6Z3X5nOTgcEFc4bHXNT/aRI72ITCneZtYVc8/FXhvwVp+ uo9jfbx48dEX1WLE1vCTZgiZEaxVvCC1eqYqVHFzHMhQEbnZCrSijgt59/0M757Npz88mcXXkdC+ a5T9SydPmTrZAmPCfB/g2/QlpLUbq3b+ mNuaXDqrxigMdXFgrFTTHZ6lhicdd2rogzVbxTdyp8SrCflxUX/cH5FAC+ mFPc9KAZcxalw3o8SfW7Rfg2hpQ9TYV4Bz/N/ 9mf78XbiyrI1RSGKmjBJwgw2CBbHPBIXEWanALz5tT1QCIYX015dXlpPxpagtjcJQOKzrIpW+ JdRJKEiNAaantJQ18T4kquVLV0PNAhHwgPFwbXrkGJhuwEoef1jdycnAn2hWd2+fdLTX/ pxFaYHGfQmJK5qYbuMWkjmRQ2RHfQPWnABJ3lMNWVJtyMNbA7pkdZsZSQOg4tXCSmsj0u0jHWIHu8byq iyjWUCtsMoUT5z6yQ72accMuuBI2p2BazByouQKUPE74hC42GIRojAhBuX28CaXqsOiG1igB +r065hubB3bBxziuaZiou+2++/eQJ7zftTjOBQ6aIPIlMPyAK7MXzGmxn0km+Dwu1eNOXM/wAPJUHqny / h6OByKIj2dPnlvxh4HgBqmtHDkGEdigAnrWwKXCqlLGOEuZJwlcWbk6GJqnFMtSPVqC8GYzX5xIAnDAI 5ss0rh4fw7 /6/J25Vrlw1S/X/MNQgubELgzpVZ04PDV7DV0pI/ fNWwWZn3UogAVvUyTMmNXaiG8tZIZcrCVkrpDM1c0ondw3W9NfMcsJzsQtIpdrsRNV6hsVCJrMk6eTNt 6XYgrZnWIsse4aJKQGFqfHscPkMBx6Vtg1oe1hnrocP62DyMvh5HYMJLlEgGsyIrNtauLFntdOKRRPkw 7qMT7skY4wMaemGYv5JXxDztTJwAD8o5IJKMTcKlbBAruXJXVtJRhMPI2X0 kjm2DJmK5mWOF9ycEhat6XaXCfBVRaD9CEXKNbWcgMXpLDkbxxyk0vzQfthV/ FRtOdoPSy9q89i214OBTFPVCjdozJaXTVXcQhjhuYMASuriRhvRLXkixokxHLGdhLH6VqzyPQggSBe3U WTPUzhmFBgf5zAhniGC6BvNXap8JXysnoDXJkp3PSJeS +Emb07rQ8MhqpB4QiQZnQ3VjuTzGGjKdaOpTuuDFW2bC0Pbs736O28uQhxGly6Sw0nq86ePx+ 6Z2HMgxwuJnOswmKp+FMGoWmOTZM3D+TLaer4u+NhB0jMRKXVCtI8NNTewCn85VGMolGIiMjT/ HroUj66VLTMexlWREtEVyQBjJPh4U2VFZlCQ0TwfLhwYd9H11wmocypEWzbbNUbu3COqotpZZ71uZtB3 bnp3Iz1FUJj53 /TIb62jfDvduo7do0/K/kRlh7vWRcQ1mWADEgOZveK5EDTKZYTpkmoZrwRkUEZgMb+ 5S7z6NRbfW3axkieVyPqWzyKFFHS6aGK7Z3FSflup8xhmsakLXtRYWh7zM+ 3HJWzbNTYNNCUi288UR4MIAraKEFXSD2eJND5kmlgCFBWrxlGYejNFKlRDv191/wBP+ UatPhk5c6bmx9aOi9vPNv1ivWcyMVLVTkJjDiICsLFsiCILBRUGpUVEzwyb5/ uElKw2ZpGAUaRncWLiyRQiOfL+9DxPzppsXYZWA1qgevxEr2FudF6HfuTrZIwHgD+ 0qylSmxurRNms5jbSCn+aUjdOBrjEpf23X3M9ckxO+VLQZcsIFjff5XXmnL4/w2/ bb0kFzq2L5gzLmTfgzn/J2RFknURA79+A5fySJ9nlkLaeWYipDI8DlJF1dHxAxeePBtPCk7w7M6+ RLZuLllBDySccnYqBjE2VwtdXweqQnW9Aw/ FaYWPFRzJoOKHiUwNSTNVwey8GQb3AjzFkwkG8hSwPFXGpDJRUzIfItjJ32NmfvPChu/ ZnlVSTofnj2t6951HR0/cXCNk2+c6zQs8Joyz9NAswSL5lqPyNE/ Ie6ValfhK27HBGPrNjqVh3FQ3Pgn3aXUIHuDZqbc2e7P6xe0ATykQ0O5lG0lRLoABwLX+ Fjoy5FBUUM2g2nnjYPhEr8wPJGlNC6QmuOjKRGfls6O68M1XATsDJUydhkiHh9kx3YXg1h9WQH5zv4Yd 8dL /M8b/oEcJ8Yj41Sviea6aLbboznczE3r9eOagCQMPZqcrBhiwNuuUuJAP34L/ F2w1EeCkDoQuEZN24NaGrnVSkwXKVz9mg7FHngQN4MaAyG2421Op/F+ LESehc1HhYo3eNFenSpt7of591oXXXypSnT5kQYWvB2BCiHDmv6GL2kyYRARDQNHQaLSO6UdTNzAQQzm AmS6KsE9elGlK86ekMfnHXf9uJbE3 +53VAuk2og7c0omda0+iep+ jRdf9gJiA0hRtGzX8uv2dYzo8NGPWJKVmym9AOTWzNrYi4oV5QSISmFWU1KvPZjD8jyoP3Glnk2F16qz TXF +EdJ/s/A2Sm7wlTImi7187mwOidQAa3E+EZR2fMjyobZ2D+ hiEfqWHDb6DGbrRgaNKBpoGhfkUgDwxnUTxJPh37Q4fJB0+7dm+ y7nGvb8lf6kenUI0LKstRgHcai35vuLorhy4M7KYfCjfuw1tHEhmDhYMupy0MmlnsgNQYq/ ZHL5R15HacXWeH7JKztskDf70NACzr+j4NmISecPN6aeV/D19+IHTPH3efoVwWvg0Dv/M+ qwUXClCLfwpLbTfVfi/eTTvWLHHYA9EDn2j1W/Os7SfJUw/XkHb+ugh/h+ m9ESWnblow8fNye5PLuQNtekk2EWhoi8qnBFItQAaKYUQadE1OiycqcqNuo1/ TtfNn9A5z0s7phv2MEp3wlDM63l+zRHNnCdoeIsiBxCT02H9yOa2k5I89uqKEt/LeA8Qf3o/ tVt0Ce5kS+nmXS7+ kczmwYP6DUxSg6X2D5xPPcJ8rAPFtjSiPkfpuOctgzqETKn26KEFALGHtkkcjAkLHGAvhhQOfC1W4MqC ohRJe5mGKjevS5dUtKgG7bc10jXjwOesGmb7N3HbiXORjmjjw3H6 /DU8un8t0Nqv4aHGExJQl7S50/ T7Ah1lNFnOy7P4hr3xBo76F7Y4IGiKP78ooIAHmyP8TzoiQfLfE5IEQlLWsrvhvIH5J4ZOz3L/ rpoah5wS2iVG8jBjHsnYpPV3sBgkwBwqNWLRDIHOANGqqQaWEWx/RahXp0b/2frnUtItPHHhRduq+ KeGri9ajDzGe+J1Jkp65tk+CBUx7fU8MksxkYkWU3I7pZUX6Kiehg2Z/xEktr/ UFlZxkF7LO7Zcywh2ZEre2860M96sT5RkOkh+ yVvOx62SdD4WucL0wd4J0915G8x1uhou3hHdge3WTtGasclcJW61VWl+sh87lfL4v1kcb3K6y+ ycIJtOQqHhGNhBihk4P9ozmyEQ1nV0fLaXKkstVCdkFx9/ tr90Y4rzFQhIPjSa5VasQ7tvRONhy1dqMf7dqcrFCb3QF9luPsuZN9SgNxogPxv3jQ8Mk/ pI3BjxwzePQ5T8uGOz6utsodOCeb16VsGHRJh946lvu50+yokNTlSDVqNZEWQgwAakkje5wxSu+J/ mnACssgKqy+axOk7x75t4yNUDfh188rqJ1vzFezpDdfsCkGud5lTni4VzN+L3xI8U+ RbgemRnPG9ypBkDioANo7pl4G0T8ddutqWHcVyx15oneOualuWrfANqCfS3+2RZIvd/ hco7I0ZIJJmm52Q6qQfA/uF+y+SX97nkwkuc1ZUFOrDwVtpmTqEIgpLwgNC4Nd+535XZJzq1gTg/ uxAlDrTCcEQXY0Gv+2wOxUYEwvZGdFWJ12DOvFUQd2zPQ7gtMfmon9+zBej+Dvw9vb/R/ D9LfoNzFTUn8mbHPMDohFeHnbSvBDxotzbIQjnABBRZGfPZQNoyXnbrtKVirwR2zAg1UpceiHJ/ Sd87rAUHwrdU1k30c3WbrH1MeSHutsUGCHs4gz1zlrOJUVRirUFuxUdepszhROv0tWuk7so4bHJi8x2J AHdRwrDmsfQa5kuvOXJEXWptHI6m5ST7eCUdLWEIXkZscRJ6JNsJH81mcny8BRZmdleC6qfTLgoIpKte MD14qnF4nabWBOh3MKycVuvWPdNfPXLLVR8ukR6vo3dO3 X5eNSpZY1gcUTjZOIem1T1td0vafzDGPHf7wz9mkA19Tdl+JwFxARqF3BPTDqF+ 3ii8lMLcyp75lEbhxcfxbsQ4twwBvsUHz6ibGNNaTDhefEyRT36ErykRUCgOtakxkInr6951opnrcDyR 79Npe29D6roQ2MbJL9a7naz7zqFCrU +L13dktN/ uS7i5dd3vR7f96m4m8bI5Oab9mW9bMiLQ0znlwZ66nbrmrLxiDiHXha5I5nwFGc21CuoJUFqGcDdTGDy 0gwEqpZlqfw7PHZe9SB3DzqD564ZMIyqKAs2zuEbU / QSUWjitcElNc1c67RYUV61v628CUfOoUkKgNV7q3cXJiUmUTXRGCn39cIkoOp0NeoErl6UBzneR9cssw bnTem5gOg /jI3pQeOB5Vv6b2bYVFVqvMMY3rFPj4pMBLLN3/br5tFvkoCCgbhDo961Eg7gcN7LTm/ WmlPkXYi0YD9OUIMcXrbflJl8pae5PFho75uw7u2lzgnJ11dj0o8Udu4ba32/ Mvrvl4AUfxbKtLGe5S2gwsGpGAUZCCva1btoKy8ks6IFXsDIXoq3sXZnjLjXI6rjbLWemngf7L4amwnK x7iDRvx2rzCZOsjdSh6byRTvn +Y5J3LXfLSoezvRqq4U/ jTu2ZSfT4NlfmB3O4ZVmRvxpQFPwVBIzEIknxh50GUyNTQplCboIBP3bP5fomfWU/ yjbKTJA2fqCnj1kZjB7Au6mSeM3un7xvVCWeYelPK3PfNVK51hgrGcjZP9oIwm4z7HjswDqYlCb4moOr KmDho0nxcNGlhfl3Sya59I3Bc9Wmqej4pYnLjAZfxhluH5FegTH2wJQerNB4z5mq /Ef7Qun/GG6zuMQGwXqiShLNHQi3ob7ubKOGnW2UXNp+02ck+6xuYWjRoyb+CkR4VXvkkFI247pUyvQ/ JH3Ek7dUxRfChJzdz60lz1bJLQCqQ9WjXlU/yYeB1goo2HEBYJNK0SuHmGa1A/2O/ hrqPibRPHGlwxpdwa5/uqYVfAV8TDFM9jFYgURylz5Qe83tCWYVUU7tJ6u3M8EwGmvv3W5Dse+At14h+ C3iVeOcp3tzwOWAbMW+B25nFM8UTmmk9gvm9EwXLqTmi9fu+XckmAtPNCjjK+ OtrSaSVZmubPy4gDr3yIILkgHXQ7KgdmTqeaHEkBv0VwcBuFwOxFiQDdC39sfrE8KiV4RqRlUoBVJLja dpHhm3 +JMrIKaA4e/s+ 19a1dp8M4cDzvmwh9voTADPFru9HZq1U0ANgreDb7E6I4LAWs3pUQJIRrfo8GwvS3yCOk3c4q0Jw6Msi ySaiQ8vqwE4J +vJUlTwo2Bm15/D+3xLsd9yLKXaugX2MUKKglSN/wOzcTm5AvhK/ ylkDwquH5l3i7amnxewk7yGHH9NyCOqjU2eKjtElTvdTAFL5mQKKUJcR2/ p1cZumurZO7zFkCpow3X7hxB0GyPbNg4fBseT1NqgFSQDOYAG2vX0pRQQAY1byMxABVqgiEoMQBSy1pq Nb3V0 +S6vola7N5XGV+SNdEOrYvGIM1s+SMGSbsuqbIZmLg0c4llpnVts6CBVmg0M+F+ zHYihV5FhiThhPCj93KLkV1ymvihyeofutliA3uVBQlANVUMNtaO75bhtD6iqay42wh0p50F+ LjO8Fwxbuf4fsYWoWar4Bcfo7a6ytjCSsj7ayatL7rAVyGmZV2YrS3ehS2lhqkPtysopAXrNlwcUiY/ DWgDc47OuxUoT33rQCE3kErV2uxFNuT0enTf6DieDOEhvuNaJ1mhssLNsXJtc4vrZ6zaipUE3oyTsRr8 lbXG9tGy0VkJc8vCv8hx4OV0t7wZEjV4mZejUcj8GpXIziekZg8sJ /XOXax2hSS7mSlYFwnymhwFVeF6ug1ekobKul5b1wJd9LO9+ wa0Q8QIUsVAhJJmKUyekSfoVjgYXnhvWgzMn4Ikv0hTOjLniiu6s14GbOINw2mR8l4CvNiouwsckucZs xe3BnRsYpvoIokxkRmnegIhez0CdAZ9j2ZfVpI4JzV85SN3 /ekPA8T1Epfm/hL9jlS6rPNuiRnePlSdIZwuu3Vfqu0y7hy/XZE1apj7Fgn1z+16neahKytIvu+ k9fesTMdUAYbzKdXbVd5n9JkVqRsyhFPWVcaAT0ER4rOFoz3LQdscfhNIOPNMIJ9qPgN5tJJfOldr7o0 rPleuGPAiB0Uim0qsENwEf2nuFRqaNw79sWbqBjBQTz /Y6qw5iuL5iBp1Y3Ud1bQexRi557ibBG4eNN1pDJJ2QipHLFsQmG5beV+ rCl5QCrpoFu9f8tT5qRmikNrVrW8I94PZ1qhloRD3pOuC94/ aduY5pHW9B02GqzYiKAHqqDOxEMg2pjAIh+4ILo9vmYLG4yhOrxhX+5Oy5Zqwfwb9A356zcJL995+ 1jGFTqL4ytxB6iFVE2n640lc2r2TyDm/sOleekSah+kHjzxdoul+II/ F4cvZNqp5S0kzN6TDf9NtVw1ixhSDqOhvkttcAlGvH7aA1acf8mDDfbPGv7q9Enhn3LnMIH/ QnO7o3vplmrqkKy18qzD8m9aIZm1jBwy+ bPB170Yhxpn7eAv6kB8FDJePHkapHi6AZPvbYN0394qcDVw33cnSbqEmOsQV9iiz886wanvbDzGKrJK6 hY2uM2nDTUu5j0h1bhz6c0b9q5wJzGi1Gy8asygsatwu3otmxcxOIwklYlHLsnDwF +7SKxJHaTc9VA/d9wz0wbWsUl1XxR6I6/ZZvq2fe2WeW1takp8avhsmfiLH0Y3DeXrBoW4F2xmnrP3n+ fGHyzeELzbvnWdxLtG2x/yCfMhEgdzFWmg82TN7raD1q274J776egQfLiLs2YCqY+ dmVmXPg3etb1umSlj/ VAzTIyqihsDyazMw82qdX41GMJn70fhZQ3ay7OkrI08MREuqR2OVOh9U08XoQuzDkDpo3bd3eDntLW+ Bxs3buT5oWsNKdUEXqyA6bU9amHRdtplznMkBE1Q0lXyWZgZlPr7BkbPeqWt7OJ5O7wCEdKkeDljHhTD BYmHkPSPPbkQ6rYpzPLjqBsCesJ39QBNAydeW /WXpZbBcJ4w/ETRYxT5X0N+IXhLQFsrbS/PP8MyTSxlKZ3fys9nzGzQMHvm9AuLg0eIBCw/ R98pXUfAWy8lOyVhS9btlm3U1KvFzO/ yM5LlBSog6alF7dUGfzej8rBnrB4LR1yZKvSrrUnHwmOkAwBdgPFdgnmsYCl64kyU2e6doptVCxYsM2T rf3h40tG9jdocywP00iD2mu4y3cfjTT4p2iKfqCVlI +9qZy9p8qndxwb+n2eHrjrqnNBxr1ZtR3hWifBuO/nglplztyT476tpClt/AsXveQYvx4RDZqG2k/E48 +l5P4eeP9i0Jv7v9rgImmAlxRv14LFTfDbzGOM0fHBZ+EPe5JWQ5RzxzebY0SPk+ SRCLs04EUSdIezxpOu3bLlKws4BoqAjL2FarGBXFjDGcQVeIYr4RtKgwVxMCiyMEEck8fmYeJNr/ 2ZGt1nOf3sacsAq1aq80T1iVI5tzJHNTyv9j6832ltgxdsjwuMUJsj5tG20W4K+HphHZv1hvX7G1+ 8jYR9nbeEXaCJs5sDeW5vcf5fqigEzAV9jLiBxD/kPCuiHy3XU3scgw0+S+PjnqTL2d6a7u9nR/COr+ KAW9S1OiyGuh/noa4qw3+ k7BE9uQKhOyz7qAER8L32xdAmQmdJXwlaVf7j3dfzq7BayWxaZFpYI4fii7Lp6Z+ IEkT1XOGZAmj6bcQ3tgINpF4FbQEcfoZRzf+ LntRwC6uuhPohgUST6VN2ukS3V9JT0swX1nWUak22D08Pl/ qmv7mkbJDLNiwjKek2auIgsxlOs1O2Dl6nhcs9+9da/ nD1QHNg1PQJJ3S1oqqTfu0iksG1WXmslurYUbJh9y/nq9RQtlojLgWFV7MbHWqnjP2jA1Ff6osZ/ TqdU8t1bnpAV3IEiLGf67iqkjDbrMpufXqH8TI0UV6QacgjVSF0AuZYPfo2j5hai5Pkt9SW/Emi6do/ cXIkFOejv5XAy7LFmLGTwUdGUExAcq744v7R3ggQfB02ghk1qtNhBCvQIRQKDagB7m/ yY3s5Uer1j7KINeWx3To4SRorwquaL4inNbEFTAMl80dHSgtoqigr6cx5eoqNnn+ 9w8k2Z5lGCbpJdkdopZQUAWXyI1g5Yjtoh50vu3d+SAMnI0cG12vGzJ6T9YSMeFiEhruADrnvgyu1j6c /kqGXNC6d3A/ YXh6549UOXl51H4JvWQToXav6Fyv1f7t53V12eQ6trp6fGE6wUqr2u10dQ6mEjrKcWT8YelSjpj5V9Rv inq +uQ+ CwXmT45rCX4LJ2HPd3suhU2q1ZRDyYUZeO7gpxX950vCVjmzau7srbwCcjCfK2dYbSGd6YdtNk2MTtFv x9Iv8he2PAbFslRZjZClvBJ3H4kRMCfRe7KxUkuJNwD1r0BS4ufgH4nmh5ALDf9qXzywWfaU1W2qw3fF bTj0FywXHr05IlsPpqcKruYCAvoL1plz96JkDDjJP +QqjdCqf0L3nzP1WHJjI4n8mjArFwykwxngibl3N2n6CQkMC62djt8QtyaPBMAmbZcv41F+ esd14dw98C+ p91LcZvii3j2OnxTsKhbo2u95VPu9DzOJfz0U9uqP4sg0b6ceyBKJAvafMoRnP9c6v4Ga5t4WSBjv1hS oX6UiHq6veJ8h86VLhNB6n /MpRRoAtyc1Yrhw7H69O6T1jXJF0FBytONHjZsZbd2axrvi+QEBX0rsC2xMs34M8J9O+GWFvdy06I/ AV1r+t6Y/a1ZSMfvCkcIDlAp8o4gcqD3iF7I7b1Yy4L5s0LRNMlI6djc9do5opzceG1N2z8ckDPB/h/ qeuRRWcWk2+nTwxQV9nc8Cfyq7z9xZ8smUkRr3zafnzHh5H4vfq+zZn9m1LW/ NJruga12x3o3syq7d04yItiB79CbGWTU2nn4M2datVUz12CLGuDfWomNZInbIs4r8mhuVub73+ Z7FU3k2uR8h+KqjM0GR/AOAp966gLk7K+K/UgeP4mgykpynj4O2R5EmODnUIC+ 1Ul6bQpPk63Bn9bxF0btllou40jrChJHGsEsjD3F5EaFPWP8olhhvNYZiH5GeR12U6s4S3nxtnNu49oO fbTf3OyFBvlbNvialtxxvkGZ7Ty95sigsxMrc7fu9Vz0s9s4eYr +239734OCrUQPm1doTOQCLmRzNrC80RpyYYPiuBTUbOSAhsxxeRo0ZScE7osAc7voQ8Sm1sM9V5+ r4Mc62s3ZOXxmxDErI9TtvcY3q/0N4EbvEbzLDP8vnu7S36pd31k/ QONeam4WMpsNsrFdWToTemm6Xu228ae4Y80cKUwg7acsm8EYzDTjPaxHdRCuCBHVqvSDjPJVZ+ 6rabfOehftA+BvGGv+INutaRqGheG/ Anb3Q4u1N8tj6K0vfTYk1XJtznNijNxR1av3DypyCv9Le6yq2r0xqB3f8ayylw8o6F3fJAnycR+jalDp /h/OxQt0c5fj4R2thljiEb5rZBt1H10TelCuZrjv7SPehxKH3+00neSbQRfDqXPv6h7H4S2pnV5LA+ GUILLERMINA/j5yw3fu4qR16MmjVbLoeD+ogY71cES1uTyyeqXrhk+eFCsqsvMIUdAd4PisDtQAz3uJ7L0jk5Eh/ i4SnVkPxtFWy714v8PDj/EmpeNPE+r2dkmhb3cf9OX5/xBjpTWjB7ai3JbUDzSFicX3UNpvto+ hsav4S2N7Mze2Wfs3rjrpF7tVp5OyuexHyo0gD9cWrhqoMd2ybgJvD74zUnqIWewUwiOCwDq0mN0Fysv tVV0Q0OlZ6VzGC4elt596BhAsjzChts53zST +pQD42XhzEqadLYoiQZzWU6O678C5C46jTqfR30p66j/OHhTUE/tjV/Orc4rVpPY6ywhYIr/ y4iqhbLvxBxr14MAi1+syow4gDJEMwsiGo6Hnu2upN9vW3apMTq6OjL8i85xXxdQJ5KQDsUh/1S2it/ P0j7APuWPMsFJetPf+1t5nDRVhO/OgOgeZP0H41qfQF7zOO3r30EYBC2KZHakR6GbcuA5tzgxi2f1+ EtYom2clbsfn594vquZ0E7oD3u0btVoPrOhH8bFyNab9gxtdPtSo2bF8vbWgtQQTM8gm4l2oi783j507 7tqiyyYv1LlPTKrsnTE4y9n8SyAJkc0pbLQlAGr0v2U3bQsd9s4H03tqauPtV9rGGZMZze34ehMAncuO Lo2n +xTDFgCyd25zBzW+OuamCHKEG7sDFCrtojAcD/R5ijcqI+EZTw2w8/FNnKhqkPyLgLmvfW8h/ 0TgCWfTtygH5yu7Ip0+hsvD8+i9dprXbSjawra8exfxdmK3TfAG0irPbu+ ecaf7X4u6utXWozorErkWh0vCrN1ro4QF2ehhlRVwsh5fyvviM1iblS9ouCqlGJf3P3j2/ MRJm42QbK1pTRGehcfn8D6nVwjbYHwODw4aNCbC3lAAJm6D3Jj2b/k10/ yEy6G4EN4u0V1ryZgauW2ZlmKnEpPIerdkqNeebN+7zi729/ E5zoQXe4CRSfXX9tlgvu7bzzu9Gj2mTYqKA0tx7oquzXxlb1b43Pb/ X4zWbSSdz1zkXsQxQbAE2Faaj9VN2Wd0ufIw6xhDfhCp/MDcGiYTHJwiwUPW1ilXb9Gdl478+ 1QscyK66C43E3t1V0XMv1Cvnb8m5T5vf2bnkS+p762PLQk54wlSmDUKae/ rvQthKfl0vVu2EHzeHP0M6BqOmj2du5kl9l7b7zS+kj7aj18jvp9XsKb+s+H/ NRDtxeT9KmVwwRbZSp7bu9mb03h1GhF4bPgeavbLmnIx8Se3fsoqX+ VriFM9bzM7Z7vJ5MLUTci00b0q7+/9GSgfAoF3HatJss5kQa4e8s9eDy04Xu1tQvoXguGVu1smnZZj+ zi36dzlv9Li+ bGzgR445LqE5zZh9iiW1QW2mLq4aLt2PvnCvF0M4JBqMtyqT4M57zG0YkoMpz3Azvg8vtQhg9xojIAZH D1jebAD1aS /p1tB/yLmjjdEofy4EI4QnUZ1h52s8k1SFAFkl9Al93T96GKz1X2a2ZS2s4ZQqrDiS5I6Wrg84+ u9ZlWrPU6vC9d5SOl9aOrw0gUfRCjTFUB7nbkQQ9ur419TvqrE/TPD+qRy+BRS1g4R8so/ 0ggtsgtvgzM8pX+MWKFfh1R2FXf7W/dd3FjsG2Eq6+HTh/eXCU3tanLGO+AUC15uzm4grB6ixgWaY/ leW6FDxotlBrzxB2X4fkjqMmdbAMGnJ9fdnsmX39SP4+ MJ5SfylYq2bKCwyu3PkpsjiaL1aglFo867danxw7I+va+aIvCoqUGtnEvy8F4l4pmdy+ wfJvatAK6hXg79m2D+DLO+hjD2ZrA5nBvohsLTomo26Gv1n8ESF5KyC42XVXoM9oOkKic/ nlQ5gcOiIGDB5tjQRSIJ+rzb18jEbUlOuo748Q7xZGtoIq38XrC49tDpPf+ CXI0eip4btsFP6rrWq07I1AqysbuBqHjJdv7qmXNfoZpWiTHSD7/YB6hyRVIzRyz3PbKlM4Jhab+lxz/ 1lVjwz2lutS9gdqKfR0iuM9AZHBle2wqc9jMz8zsc2eB81S7Hr2oN1O8V81ZNZXtCb5QP+ga7Ya/ LUmRLdtl8g9yFDTSCi6s4MQ9R9Av3Wmh2fx2s79xvvzUrlrueP4NGrRUXJ1VtilBIyh2J62i76C6eomy 66zS8ffw5ZdNzpRchL33YL1mjj9UmSd8aiB77 +Gt/rHwS+RulI2P3bR7OUl1ZYOn5aD7iA7waA1W5X6tRnU5D61b1Bc1Zz+ QW43Zu3Xm0L1tjilVdjgMht50H2mc6+kKfE/bDIO2Bafv3c9HnyVIGq7FDdVAf+AdRt/Cs/ q0LyOvzQnWdveuNd+PorYcR5AxFd8aptwIyuN31/g0PiSyhjWze24tpooydV/EHxy+H/ SZO4xGqNgVgRa+3j+ S5vzh2tSibw91iD3iWU7vc6d7VfKcb6q7I0zwkRm120KtwV2IWwnODwB02J8y8T7t6v/wCH/ sVVTouBqNvnuBrUciTAicGLGh0988xAdxLTB/ zwaiZjG7bhID263j8xcl5PJI8ghdKwrAt0mXZDkfAHyBZ2iMighznG3ghv1v5Eannc9yzlu0gdLMbPat lSGdpQqZKPw7wxRSsVYdFYEGifOeJog5rtA3eMLyQ9a /uvwn+kkv0l5pplnUyez8vik/ Hb9ZRXw0h6n605x6zzcdZjl0f0h9aljdVI1RjEpIv5iozYNhGmemcDWpFxnn3dvBMWdld3V5xdstC7O/ GekXWm+SpU4YqsrS0b+4VU8TUmmhPwPyofj1j0FO80+3sBLfQXukahJdeHr+0c0yBL5+ wRh8aZdo30F64bCrzEvs+0v4S/zWiA8AkrxH90FbSXxswUVpG3aDrxh1c9xQ6tDUQ6E8E+ xukomfBYu97L2R0Wlp55ny5cLJPyr+LrelWMepalpU+ mrGmtjJ5jMuMnd9GgRr6x1J4D4cFV5UiNXzJdtGED1AJ2/JpE6cyMdl+gHS6FLf+ ake5gOhGKn7xixrDWZK01069Q5Nct9f/j/RYLJFJu6ZHB+ RVXLckDmA5e3ud753uufRBWOxn8eL5bjj4g3W/bQ+ C3ewO13R9Slj1so9to1S2LPSojc2BPlfe3d8qsdI5p2zfdYeWV7OG1hBmIWd/eFB9EZJdHH+ ZtotHm9jev1y2TtlB4rdKSXyJbP7/NgGxaO16Mhc30B3lJtUNIfHhvfT3PLvlNAXO9gm/Q4iswm9q+y/ b/APaB+Dd18W/ BIwicNVxIS4ZgDH9up2L1NDgGxWgp8wt3kmrbCT0vGhgGyn5MHDlf0cwtXAdGxcZJSIERuKq7T+LP2L/ WfwtB2eDW9Q3LApCnfczNpaFWmgpgdF3zSPATJEcUP11dInpv1wGk97Lw5MSdKsiDZuF8U54UwhsCKEI KMnG + dpmg1w6pDdj51u1fakCHjb6ELmznBfGCCd792Y4xteR43jLk2hNH5Q0qAKINPQahJCfIbGL6PcBG4i3W sml3axf8EeNmkay7Y8XUmu9HuAfkmO17oe21HAGWH4zmr6xPsKp3R9UcFbKqDdkIUp7mylo1UCa +7fsl/H86awRVzD7x9O4yy8J3JAtryMwDLZTA6ka9204ngUyNfZgL2U/ SwhLyOXnAROmDqoHw1vxB6ApWM+ Fj0C5wS8N6TyPqrzyK2L7adFiwn2oyDsdm6C2stfYpIxUY3lsfjOj2DH56YFH7vi6T7qjWiAWzF1mwF1 MpDNbW +u6jqmo+HdO8u1+xyt9lS/mqHjzuO51yQRcOQwAWH9vNvj4P7hPNigC84Lq0aK+ 7QHRxjHtlxIOYjwFUodn5dtvdH/GY0UZ5jLiEZXMqWu8jaLpDhf7bugTh7zy2ccstqXr6m+ U1u8hywFwC/YB0Y5loIh2LANKrn9CvS9Ifa8GDTX7SM3JgagaAcV9n92Un9eMOS4dnEuf7qfXSR85s/ gxQz7HdRCq0kp91z+Lf7Jen/s5aPp+u+JPFpujq+fvqD8g6gPv28JZnKqef5nB6+ LVvyT3U4Ez2emgi6ScKXxYpAyXCrsp1r+E/wj+ OQieMsnjn4zQTxILr549u0H1vmpI1WeyqchTRZ4YHI4Bxqw9OmxjjPtTqekdfJ4c7m03H22uNut0/ dn4r/s7a9+7J8BtB0Jqo6b0LlF/Ykx9NijsAepKzsHMbg5PeYA5Ikgw0A/ VS6ZjqqLgmGpDoP5n7fRpKPGIeaEIjaf2cltFCVLwiQz8emt8bc2N1jbSw3DtLX3WS/ PY5iNVSiflXXzB4SAXmUferWquIwwcrSjib4dEqWTfQ+Ynwx/Zr+ U2sHKVWtZwZXNBeMxEKjXcXTtgozQk+rIkpCSXIdG2kV2h/SVFV4qrbbx6aqpL2apybsBHT6f4bH7+ XA3shUqrzA4fA6yuwMpqifQ2KOdepHvQr4Kra2uggrTHRCBkpqPrWdMY7gXPbDP3iO1b4A+B/xq+ AGtbR3ggKc0e4hxH3h1nQLxxE2/NCiAyRoLrAl6yifAwFE8zQFDZp7YDIpu17pSOEmhkqJN2/Kesha/E/ ec0xOg6d7qhMznOg6cpfhuokk4lKs9cfhHpipQEJKgxGtnUMQLQReZ9Ggtld3dHcj9gkS8AWbSpMzSwJ JudOcZtt +8kW2pm27647W8vyaK7Yz6Lm+ VW8a4gg9UIigcwk82rnnMHvBGd1dQ2GVJQNHG4rR0y9epQMv1dYjSrNA7cRhRbfncCXwYm4tJBqhuV+ LHIzSb7Rfvz7T8RA5F4xpwc+GL3ElG7bF6b+B/hz4W8T+ QQWY1K91def7oe8jEEbKxZWW8wayrhpwbC3dh1uYDupv6LyGHuIniQZVdbDC1Rj/iv4u+ Jb24hiG8Wzs5MPQ8vpg2xMcQTDj2ynBhIqv01ijAclN4hq7CycwbCLBpjES7y4b7B6o579K5mK2Ao+ LFeBgGhleYm7OdnVP1qynpKuv+entZ0D6pzFM2wPAcPU7xA9+RKWfhnMNgwA4p6inj+ o0C3rfha37cnRDpdwZkLx4kVRrzUq6q2gmTgrvbC0HRg2nbWr0Yr6P2H+ O2Q6fKnzj83r0KH2glvLK75rovNR0a7/o75P3CKzPlZuonZ13cAr1aFJFEoIeIUtijAu/ vVN6nzvg17cuxuJx2qBSmpdswIrqKrFvnNwFZ7lprI1gHEVHgwShZaGtQoWg2S6dmQBjf6M9cRo9N7Yv qM5m5i3x6jAOXLXSJ2CY4D6sddFj4bsiQwmeACcjvltxXS7mWwdA7pA3GuVvVZawY9DrmU0lY4hmdY0a 7E2R8 +LB3g3dgktKoorNoHNVm+awpe11XFEFj/NzRdkopPWzva+l/ Z1ltjiex3LmjVG8SwGiG0eSPmmGJGXNksCEx0GV3p+wN+0L4lt/G9/ 1RKkGML8Mu1Vk3QeQP8NganvpCnetbbAg/nzUOTc6WiLuy9lttznKz3CJiWUJ0uArY+ fboJ1IbGalfqHy7R1RGIHIZxpv/h85XeEucOo/jfqrebbg6iTtdYgY1uV2jnZ3A2TJx1vY/kB8J/ wBr2x/Ms0fmDvGlZUwZ2ufPmmSZTfM8jB7g54jedmlLUetZiJ6RtZxoo7agZGeMqYIb9am59Q/oo+ C3xq8D+E5Lwur8m+ ByhEpE0r7WUZOvMjeZYy0lRahFQxWNewlvTnTWcfZOTJ4FDfWzIkiixPEZTovVp4IGSvyFnJWgR0Dmt/ XZDto9wmgrm1N2QqjUnjLGhMLjpBKBBP71gF9jwQ836Di4h3ukp+cjD5FqDdwv70tl3I7k+ Nc3N0R4yC9u3cxxWQ3636N2Cp+ kcXH9gXySDuEV1Ytr2bAvxRPxQYhRl6aAqSZK5wB6f1JvWY0sczOqIJMI7tYEyqTgYuhbMqqPJzn+ N9vEceAPVBorwp9XjGhEmA3k/ cFyLlUHVbuuqndnJaqVbfoFrnfDHArBOYH23YIrX51piAQOBWCFycUoWumj7PR4B39ed3pX1LLgkTHHo Q3V4nSd7zzwkdUZXuTlt +rC3rcTQKtb6am4a3oKmf4PGyp+/Moh68KiOlBZ3ccGNL00Sxqg9pWW6oqNVmozIG4qw+f433X/ SUQb5JYqNJ1W3EU8jcMab0KkQts3Zv/aQzbBPJLeefLFNcRLFIIAYJbGMqjrFE6+WOw+CX2Lvsw+ LFOtxRlxdV47p8O5wAkrkyLxvMviRRL29fyH2qzIpZ2gHGT8RUD3TZiZ5W9h5n3srbyx5XfPjJac4rhg IW38mnVDnX0ONGTRZgzmOBpsKIJ4m48BmJ16PrQpeSfov59gF / hKco9k2uQXQ9LYJIGrCKXBAnPv6dDKMYnWV7ZMpQCbnfJXcS81w7o7udUXXeimVkxknanoelHMFfrEHf a3ctYH9gLnZZmOesnwspW4xIry +hQML5org9meZsaaoAnU9Y/1prdP7D6296cv/dajeG+e8AntGfuYgrIqjh+ OgHIDbs7ioNETnpdjtFoPUhRxxYCymt2oquLdlN1qrmwyp2JZCwDP8x4Lsnu5rVDKGlSoOvhiJDNRC9M GdMt1D0IbsCgV448LDmd0vD4bMo7mjAFu6LmcS7ZCMgtq / ycVaL7HKYOP0eg0LHmglHEvZDAlaYmXvm3ovsogh5AhbICfNl6pnWTqpVyLK6PWnEKXUz8srwrGcBzyS SlG4ddf6 /Nvp5/ugVljpqTtxsynw1w0PjWr29azkTlZ8KHzms4xhMpfB9I1T/I6mKK3YsKxnLNQn7uemDAp+ oWUyySW+ oBWMqHMMFLR4dl1PCq0LPFPg81879XyYq4sPtkqltckTFfSgYlmYUdXxRFIoJRuxE3ahxW1dmns4zWw/ EWt+KAIT+gVZD3GAwXXnq0hlBp2pZ9MwxWyipaLVdTr8E8Tgy+WwYliDHY+ XKSjzgN2tlRl2aeeNkyca9nBOIwR7xZC6irQRLB8aGtsddBpG9+ fuvd0821f48y3ixs3wlAihl9rmyd1w86jEmcZh93FkqVYoMvCf6f3n7HCf5xvpIu0FYoEwghkjrl3r8E vEecrbvgZOREQYW2q0T +L/ZMgbI8bgluy72Qk79Z5oBbmXto+9JVmVSLiMLIUhcKSpwpkVAY/ VjN7bt6D5npJ6V6R1xNpwpQ6WiI7qapdzKhTSC9CNL3QMIciKiywYs1+ Y3YdZo8kfOdbqJXfnLoCe42XWdzvm8hhhpAtLqDEhpFruE6ng6DEZLjYudQnqekuhv6Bze0oj3ufudWT U +JbNq3o3e79bYg9SOLSP3s84/ DCDS0N6fni0yIDqRoKirXVp9YvJObK7vfeGHOLbjJlOSKAqUIhRJdcX4Y+ OoKgDnFUMjAiuSIWz3YWlNDI/laaQ8bl9mlSCrflPkrTpVefpJsw/ku9oaB49erAiG3nSw5vy6eg+ 5s4G2K7NqGXxvlSwT2HZO7dhyWVsVWuJcLuNHpOCOBjFv9SQ4DcrIqzzKlFJegwfnqYyXMeRUMhsbjIX 5IPQY +Q76gdNSKHQasrOr/XWTTn6C1nwEZ6QSoqEJY5O16AUogf8r9/Y0UoJ9K1x08qOkg+n33b/ UOgDBmYFvsO0OiGKFqa+5jLSiYvNTpGHUqPgKKFnRr3XMhQEhnpG2fjun9ISsIDLyALx+ ANVbwIyWOX93cdMYpWbowxwHiJO0J9wdPXxMYEb/MxLCZkZwDZreJnPjDfPR1G7rmm/n35ujnUm3T4n7 / n5w5g69qJoNrylFxC1TfJnKZBp6dKJBbDXUZXIPq1mV0dmQhQDzeWQPexCuWZWIVuiaHTvMtfKUyqjL1 DQKRbwjvLWCyzEBUFTcIBGj4OP6fnOFDHeGofMG +YBm+GO9XKJHokUO1w5QW78iW4TOJ4vWRNdrU5jezE+2zy3nicl3WHFz7GwLj7udb+Bmyq9REFopK8/ WKaHcYUT9fkiZGbIcO96WnHpuMXKOzW8PZhmUorJaiJNizT5+ 4mMWdQnEcNxV1xwLhPaXwLDYaDFeJWb0IZShoYgokGmMPMlC5SD0qRWhwKTLNyDOK0bnkXhvu2o1trp4 5nmn4f7zx7 +/b+mcptkiS5rC0zq0XH+uKrbLPFMGUvGVVgjldAIE16lJfREFZ0TK/T4uPxCDNoeNFxrvPG/ Cc0FGkP2NUerWLcl1td8tm7hzMoUeTu7ilBgFUFeVpvoXKVyphL2KSvzk7q6xUoHaKydIa/ I2vIhDUDkiWFJwlrruxdcBvpoRkkwCX1Q0343/ Qn6H8ojaefFYjvx4bcVGzhZwMOQzyglPDTaMiHRRUFMYB4aORnGdH7Z1oRXet2wMpXWBlrqxu2GcHiNB uRONDyg5jQf7XraienzToFHYmrUACCGAO1PYZPMAJwF4jXyWcUuaU4fBR7N01aeoFp8Z9n /GVoQ3Qx8Rl2USAx8OikUHz8+ uodrMCu193oP9U0zC93YdJ5XBphLA3c9UNC3MimTubSk4oi9UMtq8kdVRp1dIgUW6PuVVkRYhwMK2XSG wy0uvIzLvNrQA15xZ69rVTVMBL6ukmdEICHuuqUsvQ4mWMauDwFPVgoOgKDjIGtxNfxoOFpaGfM8ReIi 0KSPLLBRIxJau /B7bmA2A/TcNNdH8/XS/wCOhy+j4R7psccnJVQTLdrDuNRFjlHb+ VJaOaJcMejOag4Qeq42HXW6CSPWxZoCO3hxSP7TGhM6M+JAcRZTgCoTvQGWSJBg90dymZwJVRc+QXQhS /xBc1aiFEX22NUuDh8z9qydCAcrrz38NrZMxAtRQUGnPQMMRvjpTkwIt75rbv33v15zvyUe8s3j/W/ 1MIdBje9Ep1EQMDRfK4DUmQlGj2bSIsaQC+5Hw33Ck4+nIXwnCl8su/BVrw8EidSEbYwWqN+ 2oBUbQeWkj9fvwbvwKwhaTr4oeshmdNkqHnQBeONyCUGsx0IMpALhPptPTVxObxeEND4OK71ZSlAWaez OfDN7M6 +WsnPtRzvwOSB3Butq54ryW1ay+q/E8qRaq30I060T2nSV6Ag6iYRpfhQumJmv25fnSNlIXR1Ya9+ KWlU0GrJ8LFVW2hkIbIoyhYw+ 0XIQx9wD0wIC3JXAmLQCTEeunkBTzCKeb8e8ZwwbtYZreddpxyeOIZwp2gmSfobdBl91Ngcirkn2uYKC RIljtV0wb +u763/pvx3f46oToAnMu6VXt63xb/eoUkRRwNkliQ3wjM6hsyQ/EtjJWQKMgj7TMbgO1/ BMkfl9m9wUcvXtbZy9roG8e5gzCF6j8qgLxqFiCQQjAIJmtUXXBWNKBvqyMSDMjjVYhQQ7O9/ fl6VKEhU1Gzbf5m3nvrxO/rC1khvTkqpUOmFc5qFluV6Ia05uo/ W88xcwiHUlmIdptCM43r0nyVFIL72cMjNGYxuRqmRkmprf5+W+6g5aWSbjd1u5/ nJH4Eb2pRD8prX5o0VK6eP/EXiC/pJEmjjWdvXolD2V6VvwXMwA5edD3eTGwBgxHVSTqG+ ng0ZZkQk1yVu7zleoJAI2pcAho1/SZddBgJKERNYP3GNKO+C3w/ eCI4K0GCvymLp1x1uzyv5oxNcUAk2lqidgLh2hrsv2fCG/hi2SHpqEOEC4310J0Me+ TUiub4ID9OGybZ1d9yEGykRJ+gQyJoD74cqncQ9/OC9ml1VjnqworzqEclZwWlI0sk8k/UnQ/ aR4MXMKXQHEPDLVQrTuGypHT1jxSvnbz0NTPwWXRrUHlBEaW+vIrn/E6o9jMYKXXpngmN3NrrPCSyx/ TdfvuaHf0yrNUGQGzfEb8ST01hYyANFVvhogu9GoeAp0rjU9e/W6t5q+ 143upvwurZ87jzNCi3A3es8sfsM8KFepEiO6GfkyrZl4raZyBiyF6SQoUw27dp77IDrdd8rZghqdG1b8 Hpzgc +1O0Q5FIsxV1E0znvOZbUq1yCcmm+i09PZ0XRSVGZyaIh12P7+GBU6mkGzGlg3MK16zDBjU/L+ qJH2hm3d/APW4/M0v4k/WS8FHRvlnsBiog/h/VlLQLJgud59ev/XZelgW3Hv+Yx+ eLxx8erkX6EqiFgqVqwoH3+h/sWxoNSBMbEYT4SM5Da+I9+sI0530yymxgv/EwdlLofj2dGIn6S3sgZ+ MYEUTDKOY51UmS0wiRun39USqz3NWhumSlql808pLtvxtUo+ hFADQZOY5AK0eRPBK1BqlYxleXqyYcSPar5Djyf9HOobeIjp+ 07kI77M8UUysEGjoXeHzgcnobHspbqXMyMly406OGbqI+ 3RRhLB6gXmJ6spyASpDHDrUVfgqyQgbjZDR4Kn5Fx0e2T0Aq+eOKleHK+fVNp6N/wA22u/ z76Gym0NEERWQ6h7KSpMoOspQo3aV1LyXBOpQJlYayXZKhjjn0W+ Fm6IsxCpFcue6PgYFnxx2WwSSFg4BlcAiwZoxxV+yJnjijMYbGnzWLsXnd6/ FHaerwj4kdu9QagmcyVG22i4vtJn+5dwP7+FLiCPSZ3fcPuP7sx+H3/ ZpYnhcdeVwouCSjxXs3D4PaUP0fxwtL8okugGILsKcXNGlR7usPsjANMcwhqjfPKl9iU7ksFDx0fO4xq /9aQs6newTu4G/mFaWKcVpliUFN6hEnjP5Lb4K/ CsxcZtsdgwCH5lgkshubiov5EGBZZYmeyMwoNW1gC2Xs1uToA+ bb66f7esLTplWwdWNKJOSmLO7FyYg2EDctCCSnpeyAxGsr/UW6ox7vp7Nz2Q0Ljk/nuvt26nuhDJUY/ kaeSbHC0lGdZEJgc142oHXbsr/ iXA3aX7yUWIdechyURVKwUvldkjwBruQW4optEL2vZVHJOSc6RUeMkJGXDlgW4ydNq41zkVtOirxZwq9 LXx2rRP4q7Ujr20p5JH3K5L4awPaCk9uPwjv3gyQGFn3IUMBdPwcECZnRyhrfVlFXNOHyDFKq37sqTzB jd9k1gNCd0uhEfEbWzhJimdo2vWYTMH9JQAbOTxvJMIBmG2GANLljpb3tIe9f5V52Mzz3zkswFbal0iB 6boOsTDqKkaVFSsLB6pd 4AzOXweNlPLovCVKLtTxQqlWul32bILvJPD2ogl1aX3YIvWJMPTvmMB/MjJKhDyQtdnJBT5+ JTHNI0hQPwqzjzie5kpZgjnsMweRU7m8X+ Pzlp2xh3Zcyxg9q4o30hZUtbvxYRHq83iGD9sgyMUTJFeZY1qHlBLnHCjpT2zoPI9CQLWSSjrTdWCU07 q + DbLSjq0XYtFKN6luCFygS0xBQmG2jdHYnwENUZpC7HdYWVvV7rRDbOsah8rV9QAUF9semFygAfLI5Ggg twTr3t5uTe6E3tAx4v1988pE42t3qgmsrDS5bszn +g3wwM8CucDOxwES2LxAJJj4lUfaT+1sn2dLdhM6dDEQTofiX6Co3yres+ 32p9MQK91o9KVnJr8dtOe92U+++/5E+ vqXpavCk9EreXV4XYHUP7BK6XDmJO7UD7CZKHHcKJATj5j1m9KjVaiYurFagGrurh+ tmxRabpARduw9blkzdm2jFZh4a64gzjzAugJmBArbAF5B/wAf/iX4D+N3b6H6Mi/ vFmDwZ8a9gd1nz2cEwb3gXCs7c82o7L+oieYbL8vDoPWPu1Zk5gobRdQaSVzwl8u/ zBr3TP6okzp8n17I9yoAXJuShfBfxwGwXOUDQhJztCFP7hKedzyDaJIWauIZd9uyRy0WDD4NxYrAOQhl i49Cl2xnci762dc0sd7kbmS1bjNG937ZPBT5f7cBwEkezY6NMCP9ck1xsaWSi6El4E42mbyZK4N +ec6exltYZgY8xep+k+Sxv0paT8EB7nYRWscWFMii6dxwkbkNxrktq5mjqsju+a6K1W3Gp61H1L+ Gw264QE7L4RGWOsptZ1Ip1kXqVWEbSHsKMPk2YQgb4eOFNP5boYHfXWDwzwap4NIpJF/ NugrexK1pvKAB2y9/ WaIl1pexgnkcnqsyYky0AhrIP7YcUZlObRvitf92VlTE8t9jLv9SjCFhTH8x0pEJJKltII2tRmGLOr1X O7yy7yPLbZlv0jUsqGz5sP7mkQia8e4jiYa0Vi6Pd81K3d6ii1JsEOUUdkTVZXzQXUxOCeM4XjHWEu2W 7ecRMmmdsZsby2MlgA +Eb7S/UKluiUgUkqdkKJmgOEvVcnHFTDC0wc7XIhonvfa1uCz4cytSOrF/eV6hbW/iCV2aa+ p0PXjvds0PgxHhjEZgowhL/gIm6WbNoCgbtYI6Fgd5x2gKGzn11cPZ19thm29q5Ew4fh5aoHN/ QbOZ7cHD04AqgkhEXwS4AT2sL5aLxCjWU4aq/ um9KuuajJ9C57qaa7iByK2FG3G8UjX30914V3LKs2YzBpKfHfSTbIx3qsuSRZSJSlknBfC6dc66mtxLJ 8o7BmkZErru4XsIPf9E2jePJ3ydndJE +3K322S22+ FsJo7VL8iIa7FpFkGSunT369DKv3GhZwk4DPw2qWZs5uviDFkA63O2KsNO2z6pj0Y9lVVP6fh4wimgqn qPgbrlMPGPt6a9 +wjqUriExcicNSiAotMyfV2z+Iz8eOrEdvHp48OGq0sfTbfLo226tONSfTdlc4feCp36+ 5i7uHaAtNG3WS9utgKQcOUZOcAw8A2Q/a6+G/xUp5G4U+ MYcesCouJcaxik9jje3blibe4vy9hpFWA86kzuey7odp9rS9IuvklRPJt6SzuWhp4Mihf+ VgpquLkW2ksHjlaY2Bk4PB/1uFQEH6em7o3bY9tzW9eqajBYwtDdT+ kWuGxUMyzeSDIo85IZspD1vE7PvvSjXB8GD9cP1XoqFZBnUOxMJRorkYtUyg6Gxfwc3omJJtwcdnBUdr 8ntQvNZ +G/n501EAu1/nFDprV7hZGqejU8qN8GSLkXllO1FEvepBkXcmvGkXeubNW5jpc0AUB7JV2Z/ hJ9KE3H59nzdv3j1m7w5X0jyVmudBjo258jCdA68wyxuRfNTQFu5ewBLcSH4cB4Fqzl/GfiTWmn+ Vvdv95yD3kc6pZZgOBodcGMGUGUvH3x1qTMwGB9ez7zdiiX3hrWFMjnOWtPMS6H+ RsEnhNwaq0HPQ0EIuT2wbNBHGKfQQrSMmSPkcrvURg2ff9Z7xwV4b5ndAb9jFuZnUmXj4H90qgn8Gny1 hB5na7T0PvOG2jeGVARbBmTs45dJaDJeIC80vxYTgbnQPiWDc9xZnFG +Dwdz6T4lImlh/yBxH2JBpz7d5+I2s7V9hi1X5x9m6u6+ QK1ni9qQThPurwQVS6gPTFlpJtuFQ8o3Tgb7N6LkWjV/LSraicqC3U/ qRFcGwE592gI720dnb9oQvJHpsnBNns/9DJljmL8f139m4VtXFqLx9tpg/2b/MRzesoYuinN56qA/ pS2cfuqbvmKnqiT0W7EHRG3mb2gAA5rRsmXP4s7KHpJsfq9fJ4MmDpyvyrzxfiGkSv2llfEwXwe/ fueu7GrLK1f+G9Ai7AmI32jyOpcyocP9apIsT7hkGxK1gn4fOSEN7DbYfejvffm1F74YZSVRq0yCH+ zaS6q+oybf0JmghwSjkDFEZzd17amBOHrI6nXmlxguYVT0Lgn1uN6wuLNo8e7c8F7yij06PI/ eHWMjxc3KtZy3QS/jQ5gV01zJ/k9VPa333KdBPHdp4z48PaS6nOmwJstHkC/ x07X7Aae7m7f2D7JWhsqwSg/s8yUaJv6WmLysPnXuYJBUgyYXORa8hREcfORLGU4QvYFL8AiTjsDbu+ k27fkl7xvhPuKtmjz4s4Cng+i8hw5jM1Z9yQixz272EyIc+0mQ714E6jK4QjdJbBEYp+ Za8665alBDFpFbJzS7vPow5vdcvXHOGYGC+ mlK1qr7okBe7sjGTE1xnb7RP0Ik7dtQgj6yjWmHX6DiwQkWCESQBMh64ayyh4rw7VtSbUMtlvBhRbOld NgbZqb63ywiAqxn31I8hH3apM20GTOzs5QilNKHMnTWGHzga6O72O7IJTueFmahHCU +1S6Ro1++t+PET8kdBgCO9ToxwXW1zG+tL+ Jfh6eEeU6RQclurzoCv7sFgOrrwxrh4MapUyf8cWVXRR5EKYrnN1ZJg0+ 54I98Kq4SjaPHNJ90U3kf1kM3oEjFtpdVQpIII7q8cv3bvDvOCt2xDk25zSlrV1Tn8w4GVheoo7e1uZx u8q7E5yplg /fQi0ycX3qEUFucq9N1EfD/G1R3yyhQtUlOVY9dJvQ52mzkZ3jOMwsviF1dnnfggAQoeFt3z8ziL/ HSgK8EnGJ0noexX33tdbhwWufivvvoz6k6U/M/IhFLf2AEzk7Bo19TMU1oEXg4yv2L05nbda2i+ Y9v41s742S6+8iiK3J2338ZjZpH28rJ48nghwdrEw6a0GPzGBtrJ3wI3kwhkaS4ROubePBTniZIyr/ CjcX1M8n8m3UPtq0bOpe+G7+Vg2xFD5Aghzj2W7sJ1vbcH7lkvBDbJGB4/ p9J4qdst7R0k5emHWRz7sYRskJeW8sMeDpXiOp1kLJmRh787J/ 5ODZv1qiG9Kk6zX5CEwvgkDsQPy8DslLH596s2sMNsqpoeP3sP7tStIrHV386g1nV/Ev/ IEA69595WQHyNRAMKpt10oMtRoEfVNvVHgkiUi55u0qt6HoYfLgS41QGXqY8P2jf76mf6b6wX+ 5j5rCnse3oxPYPVb1mVcqy/W11ls1q545Cyu66TlviU3dTMQTdqTC3y4j3W9CfkkDKJJkQiV3AA1xxg/ K1cT+WiJ5HOqNnu5vqoIuqKEOaKtQ0SNYV7OKZ3Di5h+Hr/X3Sgqay+ K9MGdmPvilo8fTzGYgnfJQ276mkXwXBVJR+ 912lfuQa4MJcGeoon09jr0k2zMkvCzukBu3X2trreslQo7+gCJb0ZcJqGd9Vw5Q0+70+ A08knHKixkFJ9Q2A776chk/a0uLmN/fYGLIbG1f+DvTkSbp6bkeX26hxs7LebCqt/ e1DybDLBwxZErWoDC2k0f99i9vPm5Y06uR8wJcLQd1i31YXDjjSVaS4cqewpOy5xN70MwEpVVp9PqJ5f Bvyhd6VWMq0fzdwx05fQLs6midG3p3AgSetlpc +632QPWW08z9tvnbzB/ 5V0X95K5Z77yU6fd4NgQvwV8s38q5pa1MkI613EwsCxHyDUCaX8k3tYz8iEvPncoy3ks5DUmhcl19UlO toK4ip0luDKPv4mEu37Uax6enlGjyFAdsJQCocA5tj5QK2LU6 / xZrhoB51vk8frI0vYyrkkZT5qvFGlS8eZPxs2aWarzIcEjCdci0Dve0rr0O1gbHa5dzQsg5izqdC8rcB WI1MKU3ywa61c1fTqX2IkX1cWtEdGuWPU6dD4DaUB / KjdxqWqjndX0oce0RxA3bE5icmajjvx9xy0Tv6spiQ6hCuRXMvJjbAby84nRDnh4wcvhoe0x1S5Zrh26 dT +G/I7rZg9sVbQUc8TP/IqetyU6bjuLkP08mdoCLse9zzFcPmsmMniI365Le5+ 0puuYf57sVbffyw9fSnY0byFnDdtc8alH4p1GW5f1MLtLFpvEG+NAh3uzQqMeCB5dft7z5E+C8/ xDD84IHtLtUAe0J8+8I+ FaSoqp0uDQCbV7Zp7elQOm7kW4VpBhll9FcgSRDTLL9VwC0ZxBtlBS7CKZutXBIYC6m3uPWErB3LSLyN rW4pYRIravF9yfxTgTXvhvhl5WgenjpBsvzh1iq6ftR4asPppIijrMh5EhsfYyXwVihMAcM6nnmzpHQ /fILzsvAExiXjWTV3bEWnB1VmTwS8oHAX6ezNbL6tl+oc8v7Se0qwbP+ gbC5ZFnDwK20qaHdvg03luJ8PF24KRQGZCuj8T7Ie7JmqcFIMmhW0sf7Ztilmr4XSsWq2axB/ mp6C9OqI2jvVt835L0xPSv73d0tj2XX0V+dvyDceR27TxTbbu02xJ+ n2XhkcZMgjvs7H1wZxer1tLHqPCBLLVqVlGHppw4DrFn62Aq3kwFTki53FJkmK/FtlfW+ yvNMk0HiBgr2aPv8MrMN8ff9w01Iq1ldJsdubSrPLNtQTnu5v/7P/ efaAgyi2mqYcB2coD1O6akb85YpNflsQ5KT0NR8wehhoGnUNrOZnRUYGAQwdFzqd0uU7gWRySBZSXPre FWR47cBvc4Z2s257TicblECgpgon7Xadzm8rJ7h /Eeo3Ha7y+y3v4iToVJuyNNb9AQlBE+IdSv/ QAeacu9Aog3WD5mBaM7xrKir72UM6XrBvn9rrROIdP9vhvKuP4/XWowE0s6+my5kCcUTPmJdptIB8h/ y9td7r0/i38S/D+w0tbtcavmjixb7k2F2pp8LWgKwAC2I6+jaspns8010e96wx4rbztjfCSt7b+ ewv4MLLumfbdermPT1N/ mVX229orBBPtw4K3JmA1nY4nZ2D1lznpTYC9hiT2k3T9Pmwnx3JTeXgO0cwi7Q8z02yYQp6cNQsxd9+ 2cJk8kP4W1R9C+KNK2pdBwSerNAaqHlfzn2f1P8aYwEspnAHIxbPLm6O64j8Aa1oXsbWlm5i1Qkp+ dl9vwIkeKKM36vd7uGY7N80tw7ewdWB10z9mdRRZp3Sa3IjGhKnxuzQiZFYK1neVS3IoeMxlImD9vr5Q BAh2u2W9v /XPvJ1YwZuaGzHXycVR9Wq9T7wOlQiBTvhv31n9nF2xpLWnLp5+yEv0A9sS0dbkDiE+ q8VfLK5is1kvn7T+1S4l+ pmvfs1AoB9dkCCIc6qxiuRVW2Mv2ZENH26dScymjCOqSVNumy5Xu2fhVTypNbwDUliejaAjqZh9chM5P xatdW /PtmafXcQ7K550d4dhZJPA+gicZh7ii0myEt04yJr/fwuV2mmTq11a89GV0Q5q1rH6EYga+ seTp7KpxE86Wharb+jwuY7It47T3sdyTywT7AP+ngsGSl0IDY08viPhdof6kh94u+ rntVL6VxsxT4NH5uzWA7jLjk1y6fJo7ljfklRU8GaIxYqTmSZCGjwLjIi6jP1kZvXv74jpB6w0i7Vt22 ULK /6GOlvl9cSpLd69n81ZO4J20KIDR9evS7cca4J4l09e3Ft5g8Uy+bkh15yN713O/ vAadxRqvlQfZA4Ioahy1t3qzCc1BcubGpPGyWbwUddrM/9C3pM7klyU8nbY5K31kk8OD67A2e+ plW1vKFlC9FJtqoobBgMLybifwc3KslnX1C3AFP7cvKH1d2iQ1ogmOiyhzZrJf5W7lbsTrt0a/ UFnuJxXQ5G9rgPIJw9w+jhcn2B7q2YBtYbUWx2Aa+t5wSrlydPeN97Ot3S7t5mv4RFv9bl+ mkwsunQFGBdXwsdBxhB1DujSZl6qYswfE1ctdeSm93seF4738K4lFw0LtVx/JBsalG347gN4Q+ 8sxi0aZ0I447o2KsuFGc98mx6ilxuucn17vl5zzhhc1q2iVPInZUYi8MbRqZLpUZ2l7mHFvjLbGIvGbu z9X8x44qgZO0f /gI5gle3aiP6VCz57eytjdpW0m9hgcVsfuls9T+ 8I1PFyhzCwLlMtdcALMT6f9hBA8h67e5obwy1uqUip+0TB8us4Ak7OfRy0aQcPCbg5U/sFSx6IGm3+ iARguHcKruZp4eouIKfi3kPjSex72qxsB4xBmxDi1pb7S5Mw8V/A79lO/+ Xs6fJ5daofCFlYXMXbW3l2V6tbJfw3d92zbKToxi/suzhtLWBlto7+ DqXAex2UeoZQtWts9v9gOQXCbvOElawx54f1p4Pnc87zpKa+Xw/ BoDh5E7BldGcsz5i92XJciryq0o7lvAqBP7Wa09Q/DKTVvhnqsM+ lB3eHSwsT4vZ3rtiki3SKFSurW1VhTFv4O4d8l1T5+42aWkpbYBNW3JiOthgIEj8Cq84yy95VP+ DpAmsA4o7+41+40YQ3O4r7u1Jjx5C4bwBTHY1kPznVs72zwWhqhYFyfQpC+HL5QCOcm6CnDQ2u2W86r+ CgwyNysFkAxqt1E59b/ i3ODHpgh2Qh8zpu83tSnqF6sqcgqsngmMjc7xFlpqVNOtVspD8ErcwDoHvs0UFzq+ djgnhKO4lp4WzlHryWJjxXCT40x82d3vp+cG9Tve2KH9sFkTA8Uh2UdXJyovmDj2qlnTjoK3RA2996YE / ewgbJG1yicI2oxMXfaTvrI3uc84lGTm3KNXDQgD64C5hymaL8ge99pzcLz4Qycp77P7Qt81f2Yhhrjyf hZb1QkwN5o9WIC3w3cQbfg7BrPQzjuIiyOd4F9HJX9r /u1tFiZg3bmPS5V+ W5B4pUxJ0JFFINAGwI91R16ZAL6ty5tbsZOvJ3tpevZifvp8YXW0FVfK7C6tPkM0W5PW9ibq4zVjDMev MbiWjv4KVp1M5b8S9jc0tr12mQmwn60N8Zi2v30ZD28FOlcnmhypadG6a /i5nAz6qWeC8nfXx3EL5cdCzAZJ7G7R0aoHeaifZnk/z5y27b5NKqQ6qwhJCFbVf+Hb/ dPAFNkiGHd5nznFCMckE/tTWL+9s3Q3iDM31Yjl83kTMPCbnpJvQ1K+ Pr4zbozbMqoZ3ws4gd6vYEIPpg4Fzorc+bfk2lKG9fmbnBdjmLdDrNfQ+I974Y+ PSg7GHHWM5Fo9mza56Z7i4E/uNO1/ gsjJUy87f8aCtt9AVpPxkHg336nqfpBMQZxffVT18DT5vCpiG5htA01X7rpTugrd6Zy9i4dSHvicnnUL l4146uYopsM75M5ijD +8Ug3yBcbvwnM5adTPp9fj5aJFlNsZazW2IfY/ TZvuhenKemqVsoal1e8O0hI84qtw5o7S1pCL1Dr58Aivga5rewBnm2vb1MA+jZbOgw0jr6PsSuHd+2w/ QPxRPxq4VT+ Yb8K1e2w7qgr4nMlZXbFEh3fUW6jGw2cyjNFlU4U8zvrj2uTVlyng53TouwXM0WnpXukZF9J6mGl75Sk chz6p376hhf6ChoUdUxG2d61QP5juAClmhwl19iWzqjMK +Y1DLFS4ol1Y+Kvx6+EVgh6g2Tk8FlIb1WXH9AjmVT0x0C9Sc9/ r3HrIfdql6E8bLRpRW6oHI5rWEySo6z9o3H1zgA4q8V00ySr/ZELALEM/sueFPjP4++ BoabGwqc5B2py0wF7xcHFYeRhcd+8H4i6TaENdfHboIvvqKFm6IaX24wAr5LgS5kJeab1hlKU3D2/ I34y+F5Funrd4KoGndnilrYqf+knS7cLY8qxLjsZ9Q6r+neenPEawfN0qElrjfFBxyS2jiLb10U856s/ pNuJ8c3M+I1j8V/Sd6zX2sjYqK7WhR1zRGKWvpGcZRcaLayfqw0HtaO6+BEQX2GrgmHvi0nNHtAERd/ 5qLjtypGsajmeXjkpcL8pvUDL0cV/E/ p2Fzf1yKhsjD8veYJWLJnhPAxIFhLeyjmpShBlQojHOuarDPtpDjH/sjbHjv46+pvh/ 3gKoiqg57Q1oh11Lsmc8uRNG6iccYh0wpFzF0xudRAihARxUcBusy1i4eHU6qWLtGeRA6ouwCY4xZ9NQ x0THxY1ZjGAUeiQ2kayeYldSQf5ENUzjOpY93Qi6rZu3AB6nRC +SPp7bwYJv3gZ7DjgK/AcXS1vAIo9S4jj/SHAn5fe2QZMfLwdoHTQcR5kXky2cyZOGioA6/Y+ C7L2HznNiui5G1O+ N3XA0a0G8r7h2xA1TWVSgngKQFxvd03Crphv092memoW3vkVNQcG0yolh6T68pHhGqLGhUTDOFir3yYm vPY /mjODaownklX1ub7EX8jbNrzz7HFAQ9M9Oaq2Uk2Qyv2K+ GgDnddyEHOud5g06o5sTwAA7w9RaohB1Y9Q4y/1a5maQosh9m6C0vGwzeG7dH28o3thrZY0iUtm2/ fNKjUhzp0g5NHRp5sg+ZnUxSj3wMhwsKsqnl49rx8OSVUO+z1C+aSeCU5MKK+WK6xRysmBYWox+RC/ 9bfD7P2b+ HmW7AfMxXkOqxJDhwUL6TugYnLuQjv3M1RxR205EyJfQ2aQzwOme8k1WhF4TNntWaei7TRs7e2Fg9BKv gNJ4f1 /xM3iia/d6dcOoyQk4/ QDvWdDVqmloPh7iGzUA85Xqz18JJ2novuN3h1s0UqgdEvFV5nCvR2GdYSeoM1z68kG4U7NdCjTYT9seh AbyLRaEDFwwOPYsiVDiOBuVm90fHb0OcSNVLwte6vAakJ4k8LyyKzxp3J +P/DGgT/EHUbfS/S3d7UxmzmL8i3Qoxr1nFhM6aug2CO2+T8tSMtyb2BHDT0DQALaYVjAhy1LH5o/ CT4u/BjxHafFjV/i6z8z6e78ZM61HR7DuqXktfwtFSQlccIwvNa2JfAqq2BQ4Pu0haQiFhbInMtpTm/ Zvti2/7MLfNCJi7D/tX9zAQsL5xsNi7HV1G15iMRAr+0Sd/z99dFuwDe18aWgwuuyXs7arB+ 6izPwfvdiq3qxfMiD/WPDH/ LzpAd2Yt4mOQ21b6dHOSJVAwKB5QwYNooi7UhRGdSG9oEcchSze0MmOq4lgYnLJ7iXV6ZMNz15UuGwp0 YPajMYuzAyNxrtn0ig /S+Ga/OJB2hSX+Igsc0d4XsUU3fYpzfRnTZxPTL58469ZqRPWN0hbhU6H/ O9zI8iFbRnm69Jwvof0CB13q8rkJnBfF4w+kmENK9UO91WiU2YeJlUaSpsP7Cdz86aXiry/AGa/+ WuQml8W90DPfb45AEDJ8wYF7K3dU0dfUSjaL5vGXj7wQUe/afZyNH7N7zSeyRZXG7roZ9gYV8wb85/aW +G/poy7Jk43NqIeZqZ/uwk5jPWLPFwaw4WogrRKaDfEqizXaBC4veHoEgr/xWtvXJ8cnU/C5r7Q/ VR3G1do+ LVbwyErOjtZAqlO2l3H77rvwh8barZRarn5183jO3ZGenP5u96Rcp2bnYcAhdDjJcHn4w3PkmFMI0ezv MXT7S3wGgckb4Cg8Nnx9UOreTvf0MMunbOF9jTKy0L +g/EZ2GNyR7hJMgIyD9DsTP1hys6Yi5yqxU1hveGKZr3hf4S0M9SF8F5oDrf9o4b9/sCkOQQhFf3z/ svfE2y+QlddvQs4pCanvAUcFNoSF5KSd47c60F3ft6mykzAX9RWMGdsLOtakc6GeIqv7JQFsipOSc+ D2r96M08LgXfqNTXzR9G8leISd8Y+5c8xUq77JTXsDZEpzHhXicKprApOfMVCNXyISB+3/ tkr3ql08BxsmEtel0kIbnS5Uk3ulhIeawtWq9BhsIvJU43c3NV4izYPxYZhPQoz5tFHC2jr/ WFKSUpOSad+p9jsxzBiLf5vg2s7za1di2ERJSf+WtXml96NmLa7DmxGKyD6MLry7jw3cJ7NhyAe8S+zz +0x8G/GqSfD+pxnefYXR5YMcllq2XuMPmPk0jiIjUIAs8v1FobBMoBNJsa4usDTi+nQl7G2w/sr+Juan Carlos/ Ih3dlrGrszfMYRZVPHZ034zHUHbkn838yq9BbalKYUfYxi5lg0Bc2RTNsUpll+HXiS3+ TRUhL3OatS7Fhut9EpzXkmloj3k4/xoXkwhMb07pwEy6Amt4kPl6FMpwaAPO2j5H5/ML45uHDn94x+ PFueSKu4d9Z41Z/eHZ6ePgFoFY8dweYyEIffkSur6XtzCuV8r6ojzFz8XL7JEY6C3rFdPZ2XOG+ fjBuHm1ujrqZpK8ei9poKgHabcRg5E0xxisqyqOSoJ8nE5ONXvwiBNg43RQIg60e4gahzcMObavMb/ZB +NRtK2FMb1Oql3d1x1WNXn4whjDOFmCR3EzGf3mtUGtD8Au0HP+oZWetWbX9RdK1afdv78J/ nAWgCyliW5c3D25citj4uSkomp1XkL8UOEhTgK6mY3iYMNHCe1wd4NdBoBGGWWZpoYW0FA246g/ KTQ7py2v46eX2p5Q4kpkDZCea8p7WBT4+ hbcULl5oHBdWQe8Ha3s7vF8h0fDhsep0w1imtI1i3xn3N2d6dvJ6Yb6YKxlfEkm6vsC+ KDCbvIxBkImvB5GLR6OrIQyDg3qChpoKB8tN8bxYXrgk2MCY8T5i3NblX3EfbG1ymh9vmFmFx3CDCiOF 43unICfILVThxzgwj2C5JL9qfwQr4GDBfh4juOmBr /wn+O//BODxnpXi+yn+XH6jb5PuvkfWpBpFEVSnPlF3F9ibgfAnefLDuP1AD1fm2QysefkQKCLl4z/ zbud1L5Z/ JSNcU9Ejg1zU1uQmNoSiTXBrmcIHIyoF3TJzSClTVColT2KlbUyfSXguQ0pW8l8QZOPBxOhyuhnzEQAM KJoIcfGHNq4cuJ3EXGB +PJaycXexpoD2Wc3ECKLEZ1ASBONi1d6z9vFoq1wdwS6IHIHADL0U4Y3wcW2GMKF+yrujs8Qo2gNCm/ kuJXZ1lP/pE9zqvJelHz+Ez/ unZu2eoteeKnDalP1ZSeQYsWbSvGbYTlYxD2cxa7Yw0uAc4hzpGDGqi8H7nw4mtrwulDh31PrP2Ol0ee WahGkJjzqFIMdFFYSj4mWObacyBeFGhdsimmuV /tTaXfH6LvImIDs4nfEL04JaYDFkBy9ItgDiWAeMzvxyTYyVS1o/ pOZdaHpEPioalWjwv3I3QJiMb7BfFfOIYaYSDICRfph11b7IzKtIBGkcI+qy4xQZJNOZceYUybQRf+ WzNgVFBwdjDLUmErztq53Uxfs/wDh/rqACyk03Cr+X9bHG+ H7iNyiafHHVQao6rSISHy2A2a53j9ueQDQHnMKxi1bxV4uzmLnjtKcziqAgiVz+ QZW4tUh410plYqKmC1CF9pC3tnakEOjvbgANejDEU7dPGpLmJ4qxyNiRwCsZsyEL+ JbXFDH2mQ7zLX9OFilpjGLUKtrBUnl0rPAw381BRfPea7h0Z5yekY8zPFeJFsSS1C5rBwFftNohkxziT cqvnm4BhJWtYOfndqV7tujE664vq +hbTe1Kvr/JrW+m3e1+/V040ucQcJ8nFSoF32DYMuC0d7qQqq+xgp5ftuJSWNuIQDWSaFh1eC/ qplS0AdSgADq/Ypy0dsMW6s53sA+dcYQ2ULTncvj+O5lE3PMj7dYRKUdhCx09Qt2/ y9zAuBaBS8tv6HWfkRfl18yF8feGXyCYzWBDMjXJTlAsGoZ/R3do3O/o5wBkZ6xh+ ptknuRtJBqJWVTO4wv8JAeicHqjHvPFWeBI7m9yCN4u990pt4GG2a75hQuik5B1zM8/hN0B4r6tl1/ w14rtL+ 1XrPkB3UuzvIRwNI2cXInVzZysILhEljqoKOLZfPHVNaQqjS98v1yJVFzvFCFrrGYZr6tnww19HVP6yH tWtfUD5I0IvHnPc3fLRhEB3PS76mRsXjgdDUZpxgQPN3 +UMvKh2mtHsEwGUHUjukfRiVfOl5+s8PlsOY2miQtgxAyRbj8qnl1RilhHJL/C39R4zc9Kt7Vtr1/ TpSLLxthOsQAbbAlZ8s0iwz846PJ7bFoc4kygM7wl5gVUwZ1xYe9ujLGcPsBZ1wDKjKKGaXIk1Vd9cYN dRXi /m0gWUAtXLzYaG0+p7RdwBAIkDiKSDAfsPyojdFxjwcSrrvkeXQnTcC7WfCyEut34rSMp+ liNXN2sjJ4dGQRwlW5qD3irUnlqkjUoNZtjY1MLeMspdvGBPoJYbGJ3n6afaErCNKPxKdUWZXoU7DSpg b8RrBFLbSSk47hwo8yJiY32zXFYaih00khv6hjri +O70PKX/Z20+8PRgXd41eIwdEmkR/qG7elW1YHiOhiqAqHvRqbO+ 0HcnDtW8DzVV4ycbsRNE7eLPOkGUs9HFHiNdk353rIlJW7elilTg2cdonfco2/ XSqlBQkQ6lchEk56vqoi6uJTPyMnH8eWWjZVp+dqRiavapEcGh2kA3XFUFxdP8YYl7+ dbHBsNXcpBvVOYqBLGGuGfvLCCMJDJiVV79kijbUBKLDMHikWQrZpAhlFKSJYiO7/dweGBGeGZW/Y4x+ 0hing9Hy8Iztws5rzazp46o8uslvGOgaptRBZbhBgSHECT86nNLGfLstukVwxapXfinrNAQBXELAlQOO KPaFbyELCVK9k1uWYIQYgJ3PCQ4XXfAVR0RwnH5BKopkfWdtGxovKpES8XHt1DpRNzi / tULcIoTU3T3I14tg0cucrfjT4uuc3MvM60s26xG49AnhZo4vMKMLkKxqwUK4MnhCWz5ugPuQJbyeleaM NezVRboFSNBeGgHGYgAFVX3ZRARL / oEFPL8hCYCKdVgkY0FXHZDY7eKKoY5QTOwCkT9tdu4bGPQEXDppSMezUc75z6GieDORwzAeEPOqgZSmh TVXBPkf30 /Hb+qkY0T16i3387/NdkvK/D9hJEWGND21GAHqkIKHkJ+ I1YkztRCGuDxmKpnVei3tgWNJ0k5XgpdXjpiDOyUz1Zk6FMouSW0CDuMRSjR8YzEgHo2GZmsHuxyqfwZ TVgDNjJ0W4tZqVpTNwuQZeFijTjmPMmERYLS7Izfb31NbcrzrSK0GDonly /MgM37n0yIAh4ss9Cgf8sRwfhgPNwbrDoSraSsDJoQfq9MM2zQyCGFcdtmLEHZcSiq73tKC5IAq2MOQt / wAIQNcAVyW1eoGTwmTwLg6hEHFYncxUi4tJnyjhNgP6jdcYYLzAmZMQygXB39ZKwGckr1rVOMyj2mvSf TwMFyzuwRUA0 /JJbq9k/pENescaDdz8nHEk1+/ 5ofXSB8ymLLyxPAIQzAvg71yYVjcNHMrFIPQX1wOQKJSjuCJlSxD72r7uZcOL3KGPkcGN3DbKTXWyjmy UbAXeRmCo +6ah21INn0yWP+0usGPkMlmcBDWsHstVLVOTztVotavIeSoniqjcwMFfOEsecuArOa5lwN+ m56PX3A26Hp115wZu+NhDGKd1wms5F0Ua0oyjANNbl4INCLwKa+ QcY0AxZURljI1XAeWytaXIlzsSafM0EXZ3HVXrWL7GIHxLNmCW7chCTO2LMgvJAuxF0cBQxWa/ Pok2sxoUn7s68lRRB4IXoSfO5JkKPFpwy3rFUp2ZlnXYTC+Rj08Hnf375mwr8rwB+OnmO3g2/ gwvPFohnhJngBvXLWiZ3iJtNTxwkEqzYMZxI3MqCYSqX+ F27gZuMtk4jTWASrZkxMh7IOjpc4euuqDDW90d7jJ1qKYJ9L6lwfLEsOinnBXbWjRfgDEzDTnipV5mbK 13z01hz +FOyMbBuULhQzbiiFmw/P6neLgTy37SKfz/AD+/61c5c4pmc6uWjy271aUEt+ k2zY30i7nSYsInUOuYbmPZuKg6Ws7lUAZEGTjVGW8fHqBjVsBASLcT5sB0aqDc4KA+ Y1GLtiHlIIgRkicPp3oXRpJlrvVvAE/JADwCePkypCJFZqZTaK5U1u8WX+ZDK4ThtZYmfyYS9r+ Oom5SyhVOaLYx0jcn65kaYd1gQ4q5hBeOxsjMxFL+qzTiEtvfRlpV5Aw/ dR63GDaYaJCHVwHoiGJu0On633z4VmuIxzNdLFxHRQWBVXQraeADXDFkqOq/ QTNNmKpnWN96CidjbGvDZjlDZZIOWEmODFu0A5TCbAUCsyttRtzFPyqJ9WgHJIUMWSUQKYNnrI6rm9Qj tb /a6ptwuE5/d2mt2eWpI34wgUtXP0kBSPfOedbcqrziLYGBCELaulUhnaMo7ghy0yMxb3F9AMPlrd28iP +DLWzJYVBrUmh4DqnRXQEh5dkresZJOCFfG5mrphB80og2b+nCbUMmz3bfIwhCLzmw4ImBobJyfV+ mIeN2d09zdJPeKhGv7Vc9xkgvNygMWVXz+jTu1lwpPmszjTU1AxJDsFDScBE0ofn5vhVIKc+ 1rz372bn9X4P0HbFHJCju1v3tkfimr8+ 46j50Q6Nlg023qJw0xtELiJpLXPNGdpCAtCJ3MEMU1d9mvQ8h+ pwrYt1vK8TTOYOYJVHoT5THQSqA3oNLIhFkN9RuXJ6JRRRTWSso/ Yw6HY3tSuggtrC84zPsQLNAAcIwLPKtxPKeTZHNfnf/bzM5rpUg/ fezae6t0uCgiS5JoTnFRGolIhpXS8pk6YAl1tiMdVQ8DdGJIwzU18DJzf17/ y606o1penm9SRSP2ci3q56mzY/ XcmtltZ6qrTDYUbWLK9fSc5LhTE3Znfa9xb45GMZh6wlOVjmThc5JmIoUdwf5YsyaUARtud5ghxiCZ92 kcZRXANnKzFfpURXFrGIRFhsrOLdEjsrtbPjim5n2dJ06uGJa1x3RcWlsIl /UwSEZD4VLsa8hPS1gkeRki4d9+syPE+07muV9nSTR4xgn/e+r+90akcEpjAP9Vkpdlw+ wlpqgrBRMMJ5M/EatlxODxewmc2ocuusbm+mOB8Z4J/IzYn4ch5+f4s+9itXqmraL/gfdcQYIHuP/ HDoiyFIF83/ZH5WCE5bnbh/pEGICUERe4S6B79e/GRgE/gT/AJ/Tvw//AD+dNJ/AdDEHc0XZU4+ yJW5upL97u+ k3c3cJ5zTHTJS3rs2yQSYrR8DqKHT3nVeiDIRPNEaii9dZkNiTJD4pXBWx8FHTAHZj5r7lTQ4gEwZp2z cDGvW9hwKDmRX /fAJHTvn+mfTrzV+ tyTdvClaEcKobCb5J1OrTGxM05RgXZ2b2YUz4jvsdeko61423spm0eraVwuknz4WnfcY8btC6/ YychwN9qdWwtEzAz4bSWe0rxjgnEiqcAkvgLC+8xPEXs8Lr1ukaRY4cbqsR8AbIePCC5K2/ KPof0ckGILPxKDtgbdEmUJ1SASHb/W/qY5rB29N2ftzAe6tYlUvxQTm0vaX1y3fl4c6hh+0TShQxTcyk /TDBjnSyX5y1O09kMI7kdoqsBVJeHs2hVyiYuPlce8iT49dkTj8AZNMqCdZp7LlDse5nwx3r+ iKtl3i9Wk1EaKqfrkbe2NzE3m90Fb+AH1Veh2O1A/ JA84XYIeaKwbboq7I0Y2h1iE3rq4gNNtEcySuwRBe00rQnQHjnFaDV8wBCdKIEwOS+ dZ3DZrpee5BG5WVJbM39oKPX4VjZIjdiVO5IDQekymXRIzA2nhBRKD+ZkT0hN0YAIaZ+RjrP8xG3z5A+ H7f/AISnwpbqiyD+1yBclzgddhBOVJ5oyTValgvKU2tQt9Rml4XUnDu/ Ny2YXsf2ab66lq3El3d34GeuGJd8RQcdyqV6FGeqnWAUUhdqwKHWXzFgrvNlV/0Yxg3bBywax/ Dv7CHOo5udIFv9CcODONUadtylP1OOwy0Xm5h363op6xUzew1t6G6wL+ tH58sTglO2TxH8f3KN7CwUU5iCwPECnx+ N6Ux5Li380smiU3dnGvkr87snzyi3mys0sKegYhedgk7xUYBhpnmDHaUTDLK4Eulr9nk1S7lWN6srGfe n5NseH18tV9Avub6k6MBHjsuAkY9qxKyxIG6W /dqa0Gx4/Z06uOrjFulRZ2pT1SPYDi22Y7trpcjVZ2krIlZx4cH7X4jpJGwi50zpi1/ O9T71C85YbKxEFlkDw+jtgRdw41+51v1v9464y97k8UhUlOryJwwQZArBDImBLMLtn8uy/ MDUnaSKyKQ9F/tuQ0Ayt4YE/ QsPKbU0RNf9ISEdExCv8YXCJYvfBwGJNPSMDQLIUZNkBnfqL87LBv2i4vVxpv91hovjnEMHUUKrgCVqQ H3kHwLEAFfvhwfvbh1tyxmrZMpimc4S2VwI1iQRqRQqq0eSjEzaa1GfgCbzROdl0TeUDoWiwJqDbQzq e2lzTI5uoMcsIrDzNGZh8Xzsx39y1EyqF8kiSWBnlbI8znRq0brl9sVEvsziXn1jud8zE2TyE8f81r8K m2rYqWU9 +xyFqsKbBtwURBHWgQ3lcgtJSuPopE0gTUBrKoBlTAQ/ S7rHvMtyTbCxzxvVEgrwtEvDeSGc9Us0fMnAYW68A+ fDCQZfaIvK7GK2vmhgX8Xx6Ecu1eVRI7RC7iYUS/ kDAboMeqZnO2FpTQhXRAgRgzKFOPXe1tf5hhy3C7xpXd0smXACBtecS3DHKIwguGqCYjcGLhdYpnusHm EanUfPCI18L1cljRHsDeoHfdTQSOYH9MSW1o1Pe43e72DL5lhPrYwHnJcHXq2WUqBWnoQ0mAu70gZtv2 YT217MKi18s5xir93Bubpus6gm NsrHzlpcdJqyYUvESAxwmO3LlUtQbIGXfBG2/ mf2kgCRIDr70j5tifh6nAkAbxpQfNFyD7LjbeL4uQ2C2rWxXnNUkvJSnfXQnmUU3zFqJ2X2ItZPng8Pm jj2PN8Q71kqEo3t9uxnNE8Nj15LWNCuoeWIyGmdJ +SxqEarLOJSpV30d5mfQkL/ cOoJ94os8lSL6pgiO0isnZiWN1Mq8oUQnduxyhjkxQ8akK9CSVGcCbCHXc2xvkfgocyU+SMnaLlra+l0 /Cg03VdHPjM3H0szRFx2xpvXb5wNF6gclUOYYadyG8s8D32+Mfiz8b/Bl3p+q1vh6un2/ eCxxqBFd7OxP0tl/XZB5gOS3MdzNJDUG0ZRwmu27z5+ 7eRRabPzeF5QXpDitrN6fGsM2H7mm1lckupuz6mNOkRiBxBsTk/ 3xcfwSSlKVYSI2C1vYfv4wgvjPgO8Y9b2W7kdj9/riMiHj0ptCC9KYeq2w/ UMtydxHyYoc75wjSUmQq7xurACDRdecoBUAU1kudPg+H/gN4C+MckN3fpIwPew3HmHGTd4fsvyb/ cPhIGa8pnWjr9loZQJ1pPDptgFEAIqI6+ XoCLx4nq1tNwW2su9pli37MwAAtDn8qK0NdE03Wl5AohOL74qtIQYikYyCb/ mTkrdYCQFe0NUPPDHVDe0XsNtmQLh+HT8I/Hus+Ip9Wv/ALHr+p8Igf3kvxgEDQjxvprTtm/ 0UcVszsRdzxgPR0ysq9aMrm7/vpgiLRdA2W+SAo107nu/ONvCoc8KJybuI+d6lo8n1CQ2vq8R1Y9w5wo +1yXAM1wA5BuRdLn+1fEb4I+ EgRt0j4r3yCJMdHe4SyHkDaZnnikyGuZN6fX5t8ZkYLFomyD3cyXdmpiJv2BKfo+0j+ udfL3luMjL9IuV4BVXbnrqPvB1ou57xpW0Um+ 6hdnqwaEO48p8czRjzPx1mowQiZn2NWQJMOSmiQon1iVF1Nbwm6gQhE1LaXLe4ychMYCrqARjB3jSKqt aHfpgcJJLUpGaiDbCUEqruHkm9mxd6RIW +kad/zu7BxLz7n30x/pV5Zmmt9OSsWM4ToBh5FlnsQBSUAnhcR0w6uSsmX7T3ZqV/Z4r42rgP/ hsdmr1sQG2hfmz0HY/ nSSV60ku7lx9DtO61g7kyGJmaZgYzUwp98kBYPFCR26Zsve1PjiuwPxjJOnvBAWfOpH7ABTCLFiaThkN zAW8WwbKTuJCpMXgBpj /AXHKHanglV5tl0ChWcH9ErzSSARMH+ l0pm4lmte9CDtaEDsw6fE7XuYUFRrZhNQ4hSerxff2z6gNHFRJ0AU0forQO2bgS+j+ 0j5cN6jjSTVEtaBwgY8+ HmzBahHeXlhgubdzefaxmTj5B0OfczmTWtaCkC2DapZ3dB18UBfL254oypXLgHkkQzcopq3earCuia1p S2jo8NAsqGT9AG +A11653jbKsnw9yqhD3W2a6duTjMFZX2Y03FmrmL9+ rY2lbpDkhlGIvrz3mGNxxKCLAmmyWyHYrtzstBwjpHn4ztClRkhtind0Tvm+ UPFCiIn5byQmT42TwXKjseOD9mmF6CxtYKWPtNLqIlAh/wCK/yg3GVORMH3/ BzhR804GBkWSCSqC4m1i3JirGZFloyoZXfY0sW0UuQfdewrmigCWA4mdZGje0ovqVH5rNz6u8ezJ19Bz r6vkvuQcqDIQdCyav2VPtHrxBCmnRsYkYcUkkOdHa305mEwCskEzGbd29q6OSRHun /DcypJTt0oD1t/MT3CvaXqWBzRqdhA+kisY5/Lt4dY0+JfIvdQiaXzr6/2vFE7xtgbWjvE/ LLpF1eug8w1/X9Lt8s2U83CKXMdvmz/kuE5YyhZgjUTfKmW8jbqNncrdC8Pad8hAYZfs+ IG84ijfvv8MDg93VzVl0E4c9xjn0D0AwEzoUos7C9WeICmCV6K3E/DvGc91ezPC2tjfNnn5ZQ8ybwT/ hviX+ 9YmADn6io2qn2ziTDhPef2M44u9D9cm5vb6SGV7hXUkH6qgO3jljxiyyv9F8a56tvCwqt36gfjtbQiDF 1j1i36o0bmxpnosHH9r11gxUWxQnGj4MGgZjZDw05ES6IfJWSXURvUFcZxEQW0tkq4UGCI6ZOzfKQfMd d3f8ltk6rDWgE1 /WhLgYF6dnZdOTcnEGeJh4+yTYae168LUaR6fshB8zUM3x782Dwn+ t9IuGuI270tvfjX6xpvPkPBzR6zhwcn/ PNnk4xXXphitXWmFZZiGaCgXcnljT0GenBUC8vVVsuaHixph4syD7BsDFWhY0qx9JlIzmafkoPoK91+ eS57pXd3GSvjFw+gtUEtmbG+nDCd2yldHLO9SvL5eIxhw1MlZ8jGsokglGL7HbaLXmZNS1y4/ CWls4vm5csccNAo0hk8kAti28vh/NaLLqMiQ3+ nPJe24z1cVixruEWHsTARoJH2k0tmnGl5bLWwTXUvSkssu+Dx3Po6ZjptZg3ibwZM6Pwm+/ fvEfVioZkQeuablYjdF3c1r03a+WS/xETv3eVbsIYuewrpr+ABALZ8qRb41KnaXItSxSb58CNN3se+ Hagca9VqhifOXqEa8Nhwf10s5wGFgUuVl09wcv64yw8qn2xk5vVrolxZDLnozQXbejcx8n++ mSoE3ZuaURch60ocrdibWO9Hg3isbwcdbMVDtUtYz+gYak01Ldoth6r8Ei2teHe1+4f6Ovy/8XNU+ Kc3ih4H8UG2mw2D7+ 4ZetFdhkC6tYZsUtcvGCgFyc9m40nqWRMDU9U1LNtkCPJ2W7LBRg74q0Wwqj1gex7pahRyOqExfjQaoj XvRZsyPkPAu5BczqborfvJHvygStZiT1Nm2gWQ /CFG1BbhxVGITq00G7Cy53M9s2ce7pVlEliBvqJYd65lzBZ939A4Kv7hB+ 5sMrwmyjJGmxtTnbO1sf8Rm7VGO249tBj0z6CAlSG11Ef2droE37W/u9We9+ dv83m3ddxte3Bblx9N3Y5mupy0zXTQTu+18K3/ eAIlxUKuX1zihfvmwDas2eIysrXNZvNXVWoacYDqTawrq6Kv2dB5bU67tCSTHQ8JyDa7132s0kAC/ sZ5z8wSsZc3OY7FyJ+EH2KkUPJ3b74R0Zjhs4Oj/Na+ xjLWorv5i5XiW6oA6ObiZYou4t8ssoylv4Ktd62e2inihy6xdJQO6RRyQzOj2uT7IB+ 7nozrn0C5RgMtCgV5Z1zs40V4bP69HW5JFkr8cFi7+ d8XW0ixIfakU0MSInZS4fctKPFo7XrTok6VoaqntWd3S0LujlzBqE8EnL2zbiz8QlWPfDTWU8lAvSUA+ uagK0QCo4okVB+h4kAyLUdxftxWJW9Q1eN+ y4Fh2bB3jg9rlZaQSa7Ay9wyoLQdpgEDxhrPIGeNlzW7NikvMuW2b0u1A4yC5mx5d9vdI5TGxRRpBhCh 6lKBmma3gZdi3OfZQHym05Z2Q +G9D1fIkL+LOhtYXuoX+j3Vo6Xys4xUm0jf0R0ouw4zgB03FPnX53ZmIN57JB6Ra955d7KOjW3+ efbe9HUi/lZqEn9lhU4OsP02x/i5U+ruhI8qRAqpUySxDfMuDdJgBfZMeFPvbrTxnu+ dPdtQXDY3oe9i0twyV6G4e545wwMs3lZ3X8H0IhytXv/ fabzieqzdIWyHd0VEBBP8MypPnFfNyW7fOBWgc0YQhkjj5V2mgu8eY6vl/RXgDx/ gG2rl6ezzxn74h5Pb3VGT57zQDeAxDetwpuhl99Sve3xLsx5mtERONehwuum4wNzHS7pknzCnBP/ Syo50dohwcnBaJ7T487KAxBgGYNwJkayK4tegZX44f8p576ZwCxFS1DVrRwts/jrVlPQ1QS4A/ EL95D2MsnM1w35KhZlVQPoWx6499op4+8t0qnL9qohzVju55+ oX757U2cxeOg7MiWx5THPJR39Dd5DIB65nzzy67wEysq0nu0taussx3e2SGwNPOxPeyDHVA6bZYvz5KX +1nohcwFteTxrJcBrVIaBewY5ht8eBmqdewxqTx2Cw7YyMMlrRm9caWzUPay6+ AeSHjLf9JJE9e4ABClp4fT462I94A+Ufh87f2a3y6rryy5akdk+GL6a/ h83IwBfkpLz3VUWSoqU8H8fopFtj3s0fElOK588JcAfIY/zYFyicQP4M/DnVJpdP+ GooXKSUA4Pigb8soaW+4wVQQ7srThoAVagS74iYsfh7pbJCPwJnbv0cTTw/ btxEv94xA2XzUtE2U9cQyQYAa8gaTySQ84XhK6wzKo+ N0C2uqMDVgd92y5vrcNbtqqy0yL9NZCeMFGUL9Ou1IdUG2DrZYRu6busZCVIGfy+hl9HyfndCa+ AuS4VTzZmdgUE5mvoymoa7yAoR5Jlul40zhSFbqKbibIxGGeeFGSVty1NzUvPvV/ vc2c00xr5ElTyshSz4K00nGWdjq+IYdHiuGHiKexjhtxpk+dIn5tcuUT2H6EC5D2Au/ AKUonNmRd9sPSdHd2hTc3QD7zlN8Wrrt6oe9bHUdoBvAwpD2/gasAGo2ltzUIwOKOstO5Dgx9kLtZU+ NhHWBXvMRdqMkl9qPyKl82YQPi+e6blmsX3Mgy4FOsB5rH21Y4k2VSh5crWVd6yTMpY6c/ zz2KykaIYZA323cc5YjNlkRj1Ujoj3fazobDlF3qf6L2RPfeAX3dvs+ EN0p3BbSk6zymPdMC7cyKrVZVlRR7zy8G29lr7iv8c8mWa2tkkwFLo46AlW92K4pxrvtqrStvCYZ03Tm kfFG1MyO7lMNso02tBL6q2QfXhpM6tucqmI6ziG87mmU +xers48wHBP7Rw5EaU6908J/tFFl/azJopx6kw+E0dKhX8QVywi7t+ XFFzykkh3faWr1hWdgXQT1P0dCxnIvllAlF+e0kWMHPNbjm3onuIkLZcrcl9KjY39QiNlm+JfxCbR/ n6ErWPUX0NPAsk+BMpG64gwyVoDE7intI6WvyVCCFMG4mXaQXVfqTA/tYgI9eo6k0hV1qnMnqirU/ kwmPI8QFuu5VlW8gqssqW83YF39/iZPq0i14N3u50NSsQgToYebEnVwngc8+ t8nERxzDZ6DqE2qhLXeispfdg/kx3YmAZgiTIP0gzo8BcrIMI70Q+UU7vzdy39V2x3u0J3p4+Y+ GG1D9tq0J5XC7f9FIPm+oW+c0axe3vCvpeV5dpf61hNdiR0r5X0pTjkej5JnobubnnCt555+ aMB2i966N07iCPH4QHjq0AxIWeuvYJkjXnxbJHX0xE9evuyik9pST9TIs7W4CU4snXsgHh3s0QkaswQv M3M3a9DeBmFZQrU /vc1uar4qv3PGtJmtVRdQTjsIc2PbzXUGwzCxmBPmhVtgwhYC+w5ZW7jaZOuNzpo1nzFC/ Ws9nvOz8190nl00Vrn9OiqJJ5sNFF/BFoK4jLZb3zF9WlnIgsd/ XCIVFCn1NZaaoMBy6s91wwhNSFh24RDUMJxPqyE08+ Z5hg9dr8W6hbqoMCoPsrAuNl51HUhjrIWv3n5zeu7ix4ac+6p4l+X661HZL2Jdmhl4Fa5g8cx63aZhvN /w9VmGgwojsb+ rv1pK8XsXA1KRdm6y87lbI827Q1ftY7fsat5jxKit3C9PfrOgnpXK2bFL2dxO0Gkm02d1nnqJfnrQS5a vPGJx3iGpBrPA +1Kk/mMpgvTVfV1ZeLpSqmP5DUu1426LX8Dki3BfUgEz3z+hWXKswnzjoVdvTc8PpMNVLD/ jwikAQ3Hwq2+M/wAFPCXxs+ZSreUn7qiNknZAEbh788cft4vo/bkW90+ gSGE4rfjIyqu3gn6cAbfjJhMpOg9+kvVQiwvCu3Qsybu3+ szE58d2H3dMiPjdXzMkBm7GgMFWHvoywRRXnu+ XwFu2rXKJj7jnL1dvMDTdq50KF950L5Mpe08vuofBQ0sEumec1kVM1HZrcaWwH9yXEVRByEWLsftUHL/ yP+PWn+ErSO9s/f5caeuyhLt9I1oi4G0qe4clH3AGgKR9KV4sM0syBMGvDgt9xlwqnETzyiDETg9J8T/ Dy/0KU3rj7S/Xjw3FJd+rrNuMBKNucqxiC6AsoTbNT+k/G12XbyZCaHYBDxJt1yTItG9jOK0xykedow7 //Zx+JHwK+T1vMWM9p9857QdV5EK13y8x8rpL26ci8X0tiz5sjd+ L6rSHeppRvMgCa5KpHYrEpq76KPp6tjepNaalyAhzpFXv54kCYHbf5x9p9oz4f59dC/ QYV4zQMbafXchZcvfqiUXxcXKB3pQa02URPkXVGPUwGnly3eo197k6N/RDBya24a+ 22KgU4nwDdHz6JHF49JaUFEaSAdeA5qlupy8c2+ 5R01gC6ul3c0AfMsfnuYCdu2L65uE8L3ChzRFeUCcWg9WccHfUCpumeRZ7c2/lrtz7rvzokqA/ 3j0wLu0z4Ye7zRS/5ZpgWt3Lu1r71g/a57M9Xw0sknzXa8PqREzIgD/ fX75hQddjdz9prUndCUd8LCJrhcIb87zx5sNAj3XnfaTnemga3xm2mF2iU4zIWO313ycXoTXH56f4I/ ipd5ebuojWhK2raTibA7djZ475aQysp4t3H2A1RzITYNV6GpmkRZMwE2nvi8mt+ V08bmwjGjldZBMc2n6VjhlLE3KUXQ8xzm24nlq95+ lH6wqpHNKFYFcDxSzXdXRhYaLAbTQ5ctDGzveiZJH7S35IlJCFI2I7h/aI8UeA/JsuqJXWGxE8LpOOBZ /JCVylduCdTIau8WdzBwerQESF8e9D7VU6wvNUjNeg3m/V53jbXP7ln2AD7gPGhETlqEsM29ej3ahtp/ gRrDN4IWhGtceCtIx7sM97elUuqNMe4fu7fno9mEh3UJBccy5nXd2VINOW2e5o9aPgJov++ Myvt0bfp4rswoPdEOcmkN0CAhro0gPfrf5Xms1ui5xKV+ e2zWLRNxhXFKxpHcRA7mz0yHodm0nVw34y5uOFr9u/ UIx7AvIWuHyyV8C08ntC09q9gCCtggFrZroUKMZrYuN4O5wBRz2iZyhs0BZ52tSk00bixawA5bXDFtZj qrbkesqm3RGhak2xsahJMxyEbe6 +ahk+EdXLyLZ3ft+7kLPMCLf0jUYWBxABrEgz7Ngbk2cvl9oK7x6zbLjYj/G7/ Lo2bvIxOP4D90HgNjMxKmcpm5kuAomb2Xq4BfjM4JcJNv1QMPkwuMK6eoJQBtMdoA4/ LH8VNI1R2d0P0PA/SJi0Y7SwaHB6mZZayjn7jm8Jpso5spA3gqH9JpfrwClZ+lzAdLptifK153Lqwgg1 +SvhR+skewMgPHtmKAoyV6uR4dX0yw+urWcEc+ kOw4iPBji6jHUNC7P01vgLfodTPCUGv4RbatJ7tW4emIcGvh6t1Yp2wYoG8shCXb6VSpF6SoEVDvmU0t MnCxXjHO5FzxbMe1TB14EJGievrSIgAESizmVSIzi4igmiW5swqeJG847C8kfiqXPExxE18SXiRcDVys 6cAvqzKWd6 b3G2mC1rbWv0rU3X50FzXgww54p/z6yvj09lEnvq2LwoXdIhvzjxkCpWbAkn/ pAVUb68k4rBQRYjWF0qe0HYZaIb4f93dd9J/waste water worker+ANCZpS6jUyT+ 6ZGz0BU5obYTkltwm9R9aG6wch6tNtf3DM20qVxJLvJAXgCN7/ws8I/ OjKqYggl2OMwcw0FDrF1mIwD8vqyYyPgO88g1bhid1AnNShO6yy7hIX0dJhtxmX8V3Gjjn4TaL7+HP2s /UJslLid7L7BmTBoK2rMnAgIOvZv0C6YVK6N20Tp/ tGpDeayyLtq4NHqpNkgWPb7CIiokWOEM6bBhbyKs0/TxOM+ u5CnnhZO1FmfQ7JoJiEoO4hw7fSmzE5LzpVFEcdGNHoDa0YhSnNoKnBfr3KVNt6QQjhFVjIuaQckb9ky FbPlPhL +2T3QM4jIoBzlXZmH3MpE3xYgM4ZHZwEr2VVn5C7b4Uf7J5YVDtt48qBzqinwWcj5U7UfI/ HfLMcTlm5RuY3JJxEtojx2NUMC0w47UALdKIlQjs96f6yPjz6PH93FPgAuJtRd0HTqjUlfWk6mAqZkcb uQecp8gRGpX3r9WN /I5wX26YvvKxtt4r+MVkGplMluxZ01L8czUh0K1v/hDwEEQw16eZpnX6ihHXcK9Wv4A+KNbvpLWW/ 7NlieDhHO7SoPFxDFPCnq/gFfj380xhsLwROyCPCED6gKOUJJqCpusqoXY9x/M8jPgLG+ YYmJ098ioOO9X9MNzlbpL3XeOhuNwBHWy0pqu7fceTpLgqVOcF7vftutBL5zzOcV1G4Gvy9EP7yndvXt b4f +PBS4PnShh3E5czY82hc+ffSJxlJXO3FLGc4lPxVc11X4M8w9XPvelvVyYRgd0i/N/ j8ZfNcruXKaojfMq9Lr2de6hktpqUNquZI/VOqvl5kvxLXnZBVYCXoCQQthDPElnpBSAQXhA8m/ WFl2avO4P8ufgHXlxyzciNW+9lJJnTjLWyY7t12s45vmKwrquGKssk9PzunYaJ9CAAtdTt9OXBkN8V/F +taXrkus+M1y8rLh7xiyYvoZ5AF+ bFvfCET2faj8cbdQyN43hhTwpKqql71dJM0q3BX3TjiTHhdyI1560mnoN+ 60KUhcHp7DguNKuQIPEhXIwd5cSa83dN+V+zu/y3fCe9zSbrHS1U+ TnqxOeUqk3twcm1Q9fcjhqqh4ByUcZYJNLdafrUuY1mNTK7R9rUotmfLWW5c2+Evgeny/Z+8f+ Oi1kQUXhjlWvi3wQcKeqByd1eHvSeOZzG0VtfFt6lmhKOLJK6y1gRenq6vvLED2V11X6Yi3325soh6a1 aL1WMT0Bpi6x6aPIbG49G9UbX760 +tRUxE4mkE4oJyJbzLwlTZvQG/zBIkKN+r/wDwT/7ZVsqC0DU4qhxuIoMG9iiV7ptPgUpAnSqX+ 6DGrA0oeRi3742nZ1qigQZREauN2drta83ZI4hlMYm3c6HlDjl0zh8ly6ob2vpbJl3sgfYDXvZb1XO6T rCmMrVbd7oMBhmcdyA5mck +ybhCe0ZTmss+E8a49mvb3e1DbRWAbp1Lxx6Jq3UA3aB1F/ giI1te41yCyWIAD20McTV5aCjdK2pADdQ0bFeN2Il0Q3tZG707UbzfxNcHytknS2jw+ vuVobSdVHQkfDuyDAwe1trtCJOOnE7LNb6m9ahX5Zk4nL6HmQgKLoXamCiWHxrzgdo1lzYRxMS0jimNy QDjh3foelexLIdjRquVLQgc5 /NX+A/8wkIfymq839/S/Cskc097py5/FaBJx0m57Wfj4kj0/ Pr2Gl88srrOjvKN4l5ns1ZcuDJ1YhN23HzqzHn17Zfndu44b6+ EJhe1NqnertbwGeAH2dSpTC0LYCtN3lLXTdguTR8xtZkFljfnwFICv8nhOJvxmT5msEjqcKdK5O3U4+ xCSakW9Pjk7K8is0CCJEQ7rw9dQnXCyrscDmbShZdqrll48v5gef+ RPnsPWpitJSMS9o9Q6r2X3y7Us3itAGUye4aG6iLUQTFcbvLJjofnouC7LQvjMPurA+h+K/ da0fjhOIadk8/QNS1Xw/h6MmjsWT4YW0/EjCrkCzX7N9r6EgDGJsoFgnCpWbt5w1saL2de4nu/AIVx+ KWtiJ6CGsUqc9A4SF/tT8J1fPqaHSUJCYLoHDnZmWpcJNWpTIz/ nAJsT5v5wXJrXOOpbhdoZc66nb49xu8xFHlSBezjbEYpxnWErgxm0fxkzfogLn7JAe6enzzhR6sn4OZh fhI6MT5c5D2G +z8rHKxSps2ixhJty6+7lu1OfviNNqKOJ6GyeosFlzyF8Xqmn+0z4X+ Ona2gVSRaghkYMiIoLj1zwC3qudDWMhzlZcTdTSjYYbyql3UKOhuVOeHWQBd9r3M4FtIA3q+ 2mePwinjiun7mQjpF68xhOfHyp2akMqEftaIICuaQKZqtsor9PMbz4nSIIvIK5+4/AXwt8J+ AcI5i3HyJU9U+JvToa0p9X8qj5WZ56Qtqx9oBsQiGss5qv2rpfbm8ZST+t6UtVOUDDlaN3E7xtfWY6lz +lrO+99e+up+MxZZsGH5yHcfySEWooEYbQ4dSsJn4gmtafUQJorE0Yd0V1M2KB/ fw6s2V9afyz5SzDM3tN+kH3osZfOCpmfXL0rvu6uvRQMk0hIYYmfb62s3ff2ZIbTMcjRc/ 4zrzIPoj9obexs5osAUUA7dWOah3UQhoMwKSqDT1mIAicJTpuKKmYG/IAKn6QZFXgjA7W43ngLAuaV0m /katto0taRPN+L7vuqnuAfpoYQXDWv3JmcSKdweHC+ cTWE5IbdEqd0jrok8hKU91PL5sXMWN3XBm7hO7gS8QIILgaQWoexD8fkCyum6LR7r+ pC4CbsMaAkJJsOEpmgBjSgV4HCMxc4Dgjp4ZlC4HCyL2avZInlD6bEBmiQFoaShRB5ydRNC4Iu1mKLnk U6pJgI3JJz1B4YC1jX3dRjxgFUOi0bevX1JkaSVb7xfrQYjfchpdsiF9oPKOQEaoqQ8J7dbzFV4iyStd kdXS2jiO0t0 /IGMTowVyOOWAzhqDoNWUXKpXZ7uHE/ kxTtiUFlBCf8ebzaW4cIYl1wBmzZLDa6aszmGgiXlEfOqRdVA83uDoejt+ 20u7lU9fvXepyP2tcne9i9FK9vnrYjqmlJ5oF5D9CPxEh1lN+ qJVtB5gl9Vz426IxBYtQHEYGnV0xs5GduA9HrfozgjlGcoWtAe1yxzqpOrU2z82/ JbTsEcfOEy3b4bBpi5woX9sWqK8zb02oWlaqkKDSN7AeUMIbnBDIMRbBkzQKMEpFfeL9pN0Il7tTPfwM /pRpgvD6EYNNcMj/vjzgWmWZvRXLHCiqCgca7MOd3gzzqx2A35o1c67etz0vBg51/ Ooc21BWBEfpOWWk4/IlYwkYlyVDr0PBg1keURTR1pkybaZhgqS6XehwZsqd/ p0HoFo9qRLbrV994dIopbZXPoAPPlL8IByhVODio5kXXqvVvSlNjQui7WFBgNMwn6dnIpM+ 6EeacAkOF1BlI3UgoKSYmL8yIEPQEsAupfj8yfMVbiza8Ct+8jYsbCMRqZD/ uS8KlcDPLtveudHOqxiDti23ehsMr62YVJXpmjsf0l5aS/ Bje4IJ13czo5h96CZBqWkMEkLZpVa29iajaQfdgHQZXM8NqCzhkH1ncoApecmRtMVqkqk7EbJBHlZwot QeQIBB2hpq3NvaNhoPM +k6HQyMFN1yvY9U4HqyX4h+ 7ycNGXfldoJxOlYyjXiKJU8waexp5fkuyN8m5MGoeH7cqQnPiiaCQwn5ut0JCzCphAnY3rVUinDBIMuW 0abh2uuetUBQB7vzrGQTw9ov83 / zuzsEzafoWESDPpkB4AxmYtXPjBU2YkyZFGmAlGn3CLGykFYTC0aekN0kgHjPLdrxFmQwug8lKnVvdZo 84b4z7NRbzpXA7M0AbcfAcKnwBEHuaDPDc79vCG3o6uZNqhzsTwmjXVYZDLDqf9fwoWS4qotHoAFSXDw 9pbphWOMxuQ0YEpsUokmnffR4wa7flBnWPTLon4gBz67zVxrk2JEKzrzcfcKMv92cwa5GKmeTn4HGSvZ OzJbaxiUal2eZmg6rJqZQKgHlVDfiO1FdZ6D0XrNdbVdOBlmIgTX9rqw5OONgMUIfVYkJVjED0hlBCwM uVWBFFea /mdvzfC72bWqqlwntYSYcJ9b4st+J/V3k4PqR5uxIX5ETwmdQ6ooGVXddsl3goOpEwG6+ Ynwr7qmBByjtzMEZw+ 7MhuszpzMDFdOmsZRTwOXDl7UJCfhHtTkpRBifYsd6MfAHMFXZFDIluuOPpDK2WuxvBNJ/g8wx8YElK/ Xn61HroVO94IdfcsxY550RXi375CbYGGIF52kqRkp/ PmtFrUuSwUzfXjhoxMXXBvQUCM54ThE9q16hPMVHIi8pulS2v5g2+Qu4GzgSTMO/ WOnTkSRk0TSCgKoKvDp5atoZOSNBwLXX+prUAIeUuemoE2NZuiLcgjtg7KSg6vwce395o+id4Qz9lE4I + emo1EO1rfFC4iaMqWsmP8IReJPRVdLQc6SuwfEpiFl0NdEHwBx25uNZZlHgs92YNiyEWmnQa8CnBXDUI BaOPm8qVMZDLzPW5XQDaxrJvNmabdfIPar0Brd2QnzskQawiM9nkJIWssjnwms6aQn9VMr23J2O1Pa olmBRx1jU4wDxix30Q2bqrFMv5SmTeZWZ0t6LWvHIBjafLX+ rQovaR5lqwXNEBI57avem6LEthfEJvLjDIZDKV+ BId5JlWKEj5WyXY5B8XKVBYGOZpHPRKnikgJvPvBxiKBgPzuNvJDRmH74QoMxFucfgBhmCangrX+ 5ydtst4D71Li51JxtaqqWeu4m5177ox5M8iEg8Q95NjOtCh1WZNTn4sTCPVOIgUZdmqXvjkfwl10UOaI YncU + TxFjjwOGkwq3VlXXSj8nxiyAg1rhmv3H6DyWPHqiZMEqMoYrWQVVgQaGgFFL8NeQJrhsVhN58GnWrukM tNmZNZKMq3907gzE6Std45Dzeupjptlc3ai +vtUlg0JevS15WfphiMPLN0fUyCqUDrnhU+ aqxuNv6ityOoB7u7UEP7gumNRSqJDHDCxnomJ4Sewg29I81iqqJLstMqxZT3bUjbJH00qer/ lmCGLtlskHc/IF10yE1AApkrHHQtUvXSiycDJg10cOUdXBLCS2cpe08qSzHLesy+Unqi9ppn+ytZa+ d76/x0lSNG0TKKcYxTTSJLoRKfvDfTmHKvfX67C62cZtWaB5OsLaqS4yaNnG5aTAwvLYZUPZuxdcWX+ YXMj0nDQLWp0Yw6QtrjuPGS3NKHmNuSUNUlJeqKHZuvERXcm4GfrGido1rPaIik5iXc4IEUOQbOGxhBS Fzw +HkRmi60yUViz10x/9IP3419/hI4rge0c06ldgyUR8m4taNLL3schTNid4orYhpIjCnSXc9U+ heyLmpcNVlLBQmtyFktOiCYjQtZuMsCPcMY1rmvt5TwSNymBwBzrIuXvasCJvmLbiX2NV1gKD9iNfxeq EiVKwkhxYOZw2PdCTuz4nkFI5amrcccvnjFnouRsayt71p11sdzk + r4p85nMjXker1IN9hWOYhAQQS2xuIxpCVgXJWCq7SrTkT80kKnpOCZ52Zzaj8KFHAwfuWcQtIpCtHSet h3PuPrqFzG6EEJFGv +vo3Cra9YG+1anUSTpkCcTWSbaR2KO90BJCEjVuXCGOHfsUTTZq73QSHdh+4qwU522L1B9x+ Qw0R683W9dD/ pOv7LFOLeVNGYtiXyZBkGMa1oTx4evJ6Ssp1xO90z93ptNS4H3C1IioOlHZ7DBsmVmmUNbaG08yVkn9Y OUym3A +AoM0G7kuOOStbw9r4+l/40cQwAlPId0vNXRJYJK8PBHNdLg6tXTpz052Ui7y1f/ sbBcROcpX190UV4338xw9FrclGQgMoPALcLqM8+BlWKVLfnFPJL5OWyJ3e+ FavfzTtk6x0fyILzjk1JLs5mHEHjzBTmybf/ R5i7lRiYXB1bIAu5bVK04bJQEBTJsLRaOajLavEfE5FTF4acur/JO4qo2Ul/ WdbouZKmpg4OpaHtig5xxuupzCI1bXnJPdDOgKOXalwNPNyudHScOko+5Y7lq8qdib7j0GxhxzsLHA5/ hx1P6S1AM+3oYCHXPBAXFU4s6ymmT0miArCXLWgWhNjOeuuMeAVpWtbj7D/ hakxaPIJ490Oz53sRC828gZUVUQiHrqynI9YtMWBHDqXzwHQAt47zqK1jy0tPqAtwCLuxy06fCDYSACP LGYwPC5OI + ACeS7UgssGxurgRZbmfX35GBxA2ZOjAGVdI4Vqy196GmSYwIOZWgE9OzsfN8Ecdm5wapcbQq0968onqr RzU49pl8gV7U2Bpa8StbfOUUBGtrnTfeAZ2eKHq4ric2QkmJfJ2nQgQc9hFOy6Wwd /LgEFw3XdB94pkUBK8iHQTGok5ZD0Y7S6Bg8t5npsJCPyxGG3MHo3g1c6571Avs1ZPXf0yamKQeyWC/ CehpG3eLTmlEk6ZgrUV42xVgBRK4nGD4aEcnNjeld3oldyxQ4/zKznUmH90XBwtv+Oud44r830A/ DtsqcSHciUEyulH7TMG5cPqtwJ3pIvPE+fWhQcDOcgk8/iKUHIzjHt+ZaLOn12x+ asb5h6N9VcDZ8h7toQk3OLvgYpnGLZu2z+JU4kf3Y+n+FHfP1/XH+EGtcK0mj6w7n08wal/wwUUd8/ T9M/wCNA4/D9RyeYTQce6yS/h+dHA/+tW3ghKUWWuAkL/Cfb4dd6pWc2L5d/wAP/X+ CCntPmICCpjZ9ppQ9kIC+eRiAB0uQYBRJqiT7xXEiVet6/ V71sYATIVj9qu9RzgLuUAbejrkrm92HK9OEHbZptsLmCCgQeAuXEY+3Tnp3/KmtbrS+ aKC3do8062G1jAjLzowno447d/d+uunc+aJmFexJXen0twULGoSb2wVGJNd0n7xG5itZvJEYfwYP9/ hT0WwfoKydn608Ik9P/RzXXYLKS3aVLitBGa8M5Ns8eFCAY/ PHX9kyLgOm7SGEBljpbcdqAfs3jXQaO1DQwYAOtx0nRoyBzmTwSsOzF7zo9CMbXWj+ 3J0Il6RfqtJks9PoFZpGQustqgRVWRNgqymxwUjLOVCpRZ5/ LAjrzf7ujapoyzqlaC758dvIfCNgsX8CVvyond39wYh6yK2oac9SyAbgI8S8lCUk5cqf4504toMAgfs3 M9P4nGQCxfWnlIj +N/xz0Gy+BgxytuujiNr1Q8TdJ3z5w7PXS7U4pWg57E5u95js7OCOevOuQSc8y2nYW/ 6aIFz1j8X7xLVyRvCjRGgJfOzhTuyah4vv6Tc+oTWBmpL7TnjGAIQHzvQPvD/T10E4iue3y/Dy6ewg+0 + WAWWawP6uDZcv7frfwi8rMIGMPu2FuOXHm1faxfp7nWYoSz4t9OHfGMIoykmzbczc66GU1l4SLD1y9o9 3F8oCM1ZnpV0a7veVWvZ0i8J5hloDBbwst91GngYkzjvu1lTPMOaSjsoF4Zg26uP6yeMdOyndA5 +9BC2ogWX0gU0fycJpZQW+2sOXV6u9H/aK8IhbOUitmY/ VKzqAlJ5qmaUausW1pNjldS6TsxjT5jLiZcyRSYH20/wh+ Lj23B8YKmTvhSELNXFOeuXHtyCjsB96PVauQeNj1AHZDS/ J56NlFwYfihaTxaRnkWMpYWLbY2bIrPOvazHlqvxG7hFdXrYmtbGpFKYh6awjD2ch1XtvzT4gB0f40XW t1QFlVOCyq05qk6wG1Rb4fX2rzVV /AAhoGhaPFo+tzWS4FbfVe7WpNGKI1uKqfB9MhkJ8NXGTLGz6Jj33FkDge3fPT/h/ cFceHTwTqQiv1nlx6bmxh0cTNPR5ey4auiECm2F9sIHF7XGsxWOCmnYWbi2m0dCHX1ewRL+ vOYgQgkr7vkDM4ldxzrw6fj/bbAAPNLtYnPDyx7eQF3Lr5aTE2v+ 2pIfjG2o26x4m4SAzoIVK1LTVwNWRnyKcaodVLucpVTiZ7yjmB82tPJV4Lb/O3lo1+ JOOSJFCityP6gn8vmQ1d73026w44qvBuqqdR6LpJ0iEai+ RKef1eQ51tcoamnHAhjiSmyUV5YBBnY6RgTDYbnaYx/jQ7fRN3wGjNwZ/ F3zuHzRnW03zUM1d9Bxu4ZyvqqXEXID4GnfPjmHmwbuygwHhqPekbatf+ L4YJSYc3eGaHF7sp6RISiBJzvMA1PyvBkXmIMnxXgO0tKtKWF/LL4h/B/XPDOu+ C6gDv3jqbvG27oJ9e5mnClpzlg2SS8gaSXvozdJ8df9AeQ9jEOC6Na+ GkzRziIah5Kk8N1DAsQfptYrNxwCB0UdP32ox5uCP6uHbDxBlLcaNoKaGTnRQdqJzxNpyPLhplAo3kM1 K9H9RDt6 +IvhrTNP/KOQHm5fEyTlc1w47Ha8FKedvnRCwWZYptkZoCKlDkezBdgdtEFzE8/ w0j6aw1zjFZ9jmOQjXJXmYohS6G8mGOcV2v7S3SXQJLxujqGCvaXQlgX1D3B1vSfWraBqR+ 4cY9fr53HGkwskF4jgbKAmtkMVQtqvJ0BYmwV1jnKDb/wB/6DP4Ywcopf4gr/ MsP6HCQfdjFNyajQpZNXML3HEe7Jfotu4wj6o50D5RzLa2WlyBeJEn6cXDqaW7ozP98xD8bBtfLTf3kw U9aAfZvJQo24N04Ak3jRLndDQMDE59UCv /LW4p7e0xCcxaBoGzPvdDqFpKDrye6vzxfIDWATP4tdmiPIbUP4uglsc45XfkXUcTQbRCl7H/ cOiP4drtrOp3vX9B22TfuTGvMOHLvdZ00ybRNRKqoGrKGQlZ9CsoluEpT/nu77ndVph8d6o5T0/ diKT70kwFPOw0cmSpjekmOWqX1vZa2v0UfG5JtKjpksfdNxSAsdazFjgNDoONgotgLpTgX62nJoUvSiI 9oxiSUKjJmlo5olM9V9jwLMFvHke8kMObUmHobzZnZ8itsz7fo4Mya2 +nUPU0IcBO02Lmw33Y1g687CJnkxdmD4fg4NDGhkhl17xdXD1qavl4fp/ UFIXGsvc3vN4VrjrYYyxHTiXVY80PXHlYiTU0F8Phsei6YliyFyjEIJSiNGFA3B7M2U1vFT9UzApnMxk 6kkHudKeMqTaLCjxNfW0KvmA8D9O +1zp+x6XhT3EfVcxUU+oIdCfRwZ5yKWU9hhBwuYiOafKxWjme3zy55+ CZyhpy3X3pakTxG4wW0sk5sh8mVnsroG51WHbQaoMosmnuO9N7GMAKpB2PPvBNCKkSj4qO7c22T1tpsR zc7Whca64K2W0psr67KnkxQSi0Di8E7jj9LEfVhouRn0kt0exvXMmc1Tic1wbfg0HSf /eeGdds/ROvbWpqYgJ6CO0JFVaTFr1cIuZtXU1Vd+ YGgRxdkeQh6ppxyvtrrQx8HRaTxkn48uIalFV8YFeU/ hSkrJSBnAF13XDBJcinWdWQQBKRVoI9kxN2UKccWSNfdHEFF5il5tDz54Y/ELSJNNtNavZrzTtMsrS/ eQ2wCGgk4Q6yaSSstEil+ bYGCVrm4zl98CASHYMK9JFqwgMwuvWm9e5iOZGoqkgivAo2FvCqhh4A2GXafbQpCU0XqlyjVlc47zjNU nAwiS59MJgbgACCJWlKqPdrmq6 +FNWTsrLr+KX9F9iC2OafyaIMuoQOLjpl9eBmfbbtlGf5GIJruEswtF0mWNT+[employer]+ W377R77QsLhiWo3QI/ 8cOpZ8n81U1abmLOXqpyLxcj4DHxGxe9lEM9omDBhgEVXASE8u8BvACH65VnKaNsn0ZeFgsaJy06XbsU kd0ZTmI0f0e98o +6hZ3l8UhKAFmqk7lAopuyG/Ut/428P+DSX3tvbnamd3ay/Ph9kkDhfFMy5RpwcXL6taestFW+ 4BwKJ7q0uynHBmGwSCkUvng5gdy7TGM9E6jG8r66cg4wjhmMji+Ik8+ RomGLaRao3i9zj4nbjtRP2BhlofpUtJtpuUTpRoPf3nwcd02tb7leldeO5Xslq5D1Zcw5FApXUHfsXVe OuImHyre5Fb7q1sxhAD67jSoA8djzpAl86v3TzoFDotw7WmDdXUF8u90dmqRbey7sctlEIn1ejYUjFOE G + gkXfYCxytp01I22t5jdqlgMeIbzAOn6y5TB7pcNSQfq2oo6cxb0cDuiuIWWbksIpQJiCPD2l9kwNotCC hzApPi2Z /QkaObKNvM2yNwacIPWNySeDIJ5llqBLTGfR/tE71dnbgmeZo6D3ayF4jt3J1TkZ3df+ KUPD153hTwyRyJr8Qz9glXNyISS9hitMhjGXf4XR9AhFdDy8syPPzev4bkm+jf3Nh3yA53i/ ZUP2JtdC2IUgLcXhoPwCdIGvCeLWrmoNuz8aIeIcBzqhzuHeC8j9nqRaS40hLGy2HAwPJ1IsnvvjMg5t RRCKs96gmDFSKIGMA8BfpXlNxZP7rujg1I7ghAPzsuYPP0R4Q6FP1e92HFD1vySVrsDMGlhHm6pO5mkR lp78FBZsFAlTCEDz2qhJV15 + YWC8UH3OmOaRu1p27ovBsilOGZ1hoSzkQo4MoYPkj9SnjOXLLLzwiRx82eiMadbzlWWwTWGiFokdos6x tQOZ14BdIuPlSh0dizoyhqo1nnz8FgzzzsAC3t0o7za /h6L2KXbauJBaSSP2K8Mz5NHplb0Unwu7H2rfNYaByOmm0+ 7Ag4f15rPKx6cqRlLbjKGReshMRPl1mGwFU4cOppGs92xsHmYbwS+Román+GPD+m+ LiAcuQogJQ7SuySyXUGjcx6isDO5/s++ A8bqCDyPcyuN5dYtwuRBTyru239JN3JkZtWhF3bsf3kJOMFqdXwKev1tVTDa0d6L1BPRuREHTNp3GCdK 97uhJJqA97TUQ7RIV8MSrcirBYLzpxjxp7 +juxUq7RMGQhxtF9UHXLGsaQgFrjhy1v8dms+3hVLTFozPbWyubiV+ T7G7569rVHVqhpm0IZeGXoXSyG28IDFhVVcnctap6wUqtNZOkhuXJmJoLubkl9p+wGJZDvjq85Jyz88e / uHfyn1yt8HjD6g8713F2eweysup1lrMZZ6u7dom2M3FPhMYRcoo9O9m3i4bWxGvv7zpLHRYGrMppnLPB 8tfvOtQ0l40oLT3u0GnWchIttb0jRA7MoZR27Ult0aTm77o4Fs51CsbNwSppUPifFtNgLK8jKQrrmzfz adyyybFmhk +hzSsyJdknxjHn3l85ntm4hXcxK4CW1tDd5vEFdvdTbvKNUzoOuHorwQivQWp5byO3b5K7ycRgCqhO/ wBih2K8Z8E3UFEyr1K+ OTIqIzK8yafnvemxW9vap8QYQefzD1ddgDLT8y7hXThyhkMyoAixrihdhrOw4K7f3MFvBue92LT8PBcV 0owbalGm +vQb6zGmAjJZv9U56U0O5FiTn/WNR0eS/1ZsrdDc5+tVbw5vvvv5KkkFtSfjS1G0zN/ZtOjlljl0+ KTGYqNQJTXau0rvl4ilzmI0e4N225WlnrRrvC4DsLqLl6k5+ C7u1gEIB49uFbbdVf2dzUQDhYkfGN5dE17VW7PE1j9s8r+ DIjVkcYYm0TFQcGp2x8Q3bHq8sOVc5ubpEW7MM+THGkdtJK1/JGTWAONKnbvw1C+ Iwx1kd6x9EFYU1JW2LsokwbvvM8kKXrbeYElqvy089CnxDJbPjwmwlfx1YFlpWoZNJsyC+ EOchguI6bipcrzOqmw2LTQHUvylXgcYBqMGOEy3IJeU1AEVFkn2Ll8ryGIZ51daxVHdl8Txj0fg3YaRl 5d2 +yjMdEBGqqV0c36FXZRfdGiEDNsYg8DWQiRoGnR27RzGXcn/ KiuGziehHc6Q1X7EzyR9q08C1mvvw90az1VyfH2tXG9qsE3Gzzv5pB8EbZHVA4z0flYbccloZtgR7NZy BY1LbCK32lhSBFL7iAzilcdnhueS7L /yKPH5EhLeAdobRYXRpTjwOGjzg1KpKIREEMX3yk/1XwXB/ gwPf92ebzRgWUIgQwVBUtvrPiQGeJUtlG72/HlOLosXyTmzlEwXR2oBqd0xCTDnb5sr5yrTa/ yUKq8ehfgLY4yTL501blzBqSnmQ6lIho98rq0xte+ YcKk1aejj2Ox99hiVKN1oJm832xgHzzfWigkRRG2YxTm4NPTHSqY87LfzZ432I3v4iqlHAo2/ CoISxzVuU8oQmX2jBzvVQcAc7c9dYPA2tuy3cu1NqTD3MsUfeTYe7uBcgk2ugl69Rcd7reWo5pEz8uqh 6i5SyIH6UcALosGuUATIhpmgleqsjNiq7irL6uCaip7GdeXUtVcKhfGRUyJCWl0xndctzDTP45 /JBhlxdmV46X4GFXIws7XjW9W0ud2frDlWJi1xWMKbc8PshyxGr456KvlY7tdm4uXFZ9Fzz2PsEQCs+ NBgpn5s+UpBhjygxy2CClZEByOlDdPjUiO0v2ndHgiwDy6Fsbv0dlAiP2EzUOgziq+tbSto7v1T3uP0v +w/fVamYcAi0nl+Ysn5HLEg654wDT23uf5fIGPZxQ4fpjDGgyN7u7UlKAoVzT9k1hK4nHVjq5s8Q0WWN +I/H4bOOZjBi40K4TyoNvnD+HdN5pgfaJleIaUMFUicbVY8UA0y8HfNVfnanvlxP78cmX+ gCjKya1fms0L1YgA6cwllsUnhIZn9Yipc612geQh2UiAA0Q6FakEDf0Eb66nyGoeJMYE4co50006B/ NH33MFsXslTneTUWbd0tjfw2AISQy9LqRi0jqODWRKqkUw7IxANuSY1zkvGnq0fCkeoTv8ezorYZSQbQ Kfqb1bVkoBo5ui /idFrW3oebW3CQsFXtHQAQ4JxasDY2VP7f6B6kXye8Px8tew1/mfxHrcuyb4s+ G5H0FL3N0hEibHTbfEfW4Y80iw/Tammie+8yNxrgek6dSineajCsCd8lhKH04Iy2J5j+YHOjhP3V+ TOFiKqBYq5abFuvcQ5u00wPz8kAPavuX49HxVjAsocmIEIJAzF4rdnKjI1ED/hWP5J1/cKO8ds7omn/ niOdgX02+A2ty1BZCux7nZ+c2MoOJB3oleNrNQ4mKJS6Vsyj6r4bdqCSm6OmOzpDF+ As7dmR4DBa9yTmbXdiF+ VSL31bv5uBrqMlOHIjp48R2P9TuExfeutUNP0uKAbwWMqUGDC5UR1x7YFSKj5l4HGx6pkw34NtV4N4Qw KYCUNjAS1J3C0Ssotq1QWdb99w7j36b0D +FUcWk7Ltqcp7D4AaYX+pK2pszK/xkawdngh2mc+K4ri/ 8HN8ZNg6j1HK3EF9WiqNFu0ujVPrzU2bvPC5eQydhgNbM1ecHNMjYcvplJ5A9A4siW/ PUkdzMaz4qFuzi3xsWjota0iy9WNJa8c2Xt2Ob2AImc4YsAvE56JAjcJUe6umez4GkurmgYbXvA+ leG0jy52/D/idqnxj6RelDV8o+4vP9XwvQAYjWTU3jvkzo0pqBK0yI6dZoD54f+EvxB/4U/qOr+ ZBQ8KCmM5w3st+NYX3teyK08fsIUquqL9mKm41/ZgSJqrieEJBjVsqcOgP0Yq4ulB7+ LWjfvOGA9vG8zpb9zD5pqhkXm2ti6XWWP1QxpQiZV11zRclwyRMFxGkpFGcV2iZc0bzaJqv/d/qO+ ImseFvDvgy+ft2t59WnJ6fBSU1lAiXg8q2aP3u7+wqW6q43mvUW889IsONAottVJ/exlV/Z2+IF/ TqNz9DF9zOuCx9C4xIPjRyJ8gFfflF2yeVGhFkl5xAcy8jas1uI1vcHsHIoy4oF9Wdzo281q5L6wOi0/ HJLYcZj8ePah0ycyttYWWa2kvY2EpPmXakxENC2qolZ7MN79jgqdPHYkh1ExaLZNReNaJ+ 4srklobcC1X1GumH1rmRPH85GF+ F0VSjxZ2kqOVui9t3wjZup8UmYp1ff3pW3we1j43UxpcyPlb9wCxpXyVuiRxqT1+0vjo2h8185A+ ia7LS+ze1/fTawfHaDHIbJoaiyXWZM9Xsqvvolmt+/AlXG75Qx03If2Eam8lqr/ kKiov9Iu5yC2wpkgG2q7pnw1fcb3ovDHNyT+wi2oUTtWEBCpGd+ Z9fhZrUMK4HR6igoqWtrimDP5m5NvKOpibSllAuueKsxpJ8G6jPQ0HExitGeS9hZD5hSVYvckcAmzn5R BvK4pcEOxp1d /i79Jlbcl+0Umh+ VZXENiA63KbmAiSii2LxkHhszxAd8ju7RcJEgoRJSR43vLRtN3EOo9z7ykPP8ax1Apm/ RKYpR9C0JMij7MnsnG9t2W2ca99JELjgu+ yS10K2YmYFKrizJz67B9oOomqWXsBiKW3mMRHphkBDMcmIJv8Lpvfmvtc1EUhelRqrbRo1OR3EvaTVdr EXYzKqqaxqhYjscYU0bOG13TI18FPO5qtOxouyq8q8TsD / oC7P2L6rFcGsomzcrmtkIFc4yHUoJ1O7wdr7SmknbnV8cl6qp1lf7x5dtoFJLoKPwK5EaacxUH49wizy /uo1ShMe+WxFpxAHX8WcWMFYp0c5fMvpRcGJi7YWbsxsCrQlvN+ jOgirbl5gaYkjvwKyq4gRcAhkxryroE+ LzMJ4FUqn0IABGROLBnra49qfAlFe8Htn10EkYiStVUXG0G5aXLxcZjPS1TWUrDEHVqERpYW6T1u3E3i +RwbdcznP6SME/CPl9mMSGIy8k7ubkgxd2NwVnZN1rNStcAkPd9x3OOHSl31A08WG+ m682pw5bt8QO4b5A0zupJ1vZuRiwFs8JdhOhPuyGAVRhc20Nieo1b14HSSq/ kQyssrpcxPjdrrJdHa2senmcUCgY9uh5rOKhCrv3IIS0hsvVweyOBaX8H21S+ A234KRtE7Lwa1XytUY9mHLeTU1Ox+cX8dwj9aV050rZKJEtDOp4oQuii4ipaPKrF7da6IsWjE/ IpuujePdfrNwx5HidqDeobN2a6RaK8y2xA8F5BY9FIPiiADlnMZn0yisx5hFdu0gM/ 6GtFl5Y6IZQLsdCHGde8Keo0Px+ 49Nj6ZRgt9EbfaHcWojxsLoYqj0F2yDQD6E4yxj50bDB8mlCQkn70FLu+Vd2/6WikbW9P+ WfnEZrlFS7z3BQjbTymVQOkGjnK9rpGXxqTl4kIy0AZz5Aw1ZtZ1EZPskyX0rKl7mCp++ h5HQBLzVO1kziqF+qve2lu/U9/DoPnrCanbuhuoFz8GmDCeByeNWKZlC0UxGcbMGJXfPQtdQ4ehg33/ aR+FuqfFi1+ZowCaO9vkrxozOUdBtQTR+liRPiKS3wQxfJxB6POzvA4ONVF7Y9N4UAqQ86jlG/ wCDbWWpWfizR/Bgv2GSyKzZ4NaUN1i+j3KvNQsEUGzCNkp+jW0rs6xPaNcGH99xZv9YpJBW22wuU3N/ Jh7kxAoW9hZ+RGd8VJ8jlV7tRWwCNj3iykJZNTOJ6gBKfgcAsuJO3ebPur8EYSbFUWeeeIt8n/H/ AUrd8lDmFiGStQ0FFSWKhlqvUmqg6Hjb8nTpzESx1hqzJWwjUrf49Wpgd0sjxCH2gVF4o0bHxTkE9Gm5 33YwqauOSRXa7Yxyzs +ilCbEiIZe5KwEroNQnLnUUdpc+2kG1nG91BBvh33A5xeRo8aMeqmR+uX/AAUb0/ 2f0tmks0X3unx4d4M24C9V26i/ 0WYN39dHwKoroSm3ufRtUf3HRhChgzSdfIzP9BpdZHenSwmsL14BhOnC1q+FfA/mxQaaSSvzxS9f0/ X5xtrZXTqNtxwDhfnQMtXqVxxTYlNGHofo1TwPRgNqYpGwWOypOlMnjfsk9C8E/ cb9Q843L8HoA8Mg7KAtJ+ xCIWrWbcs2f4yBn86Ho0heFhgdjn1N3MJ73vdFIrKppoSrs03rq2mzAok87gX+ix2TU0A4kBAhs3Xz5U +TcnChptg51FTP4J2rKSu3DQj7G61EVz6MY3ROKO+ 7lnH7tI3e0ARgX7irrdpGN0SK2qZjxIAy42dPo3SfEbOhtprUiFjp7ll5evt4zEion/ gn4qzS6URQDAKf8drhRRyxeABdJ13t1vVUn1g+ 7BwrPOtbi6d7lRvE2T867Q5Af4kEz7tAtmccM4mIruNgb6Uc4eAno6NmkjMN4S5MN3amCNLbOuN5x2bs RoSPKvUiu +FMjU4k4Ohe/VRa9uvFpv5y4JpkNm1NHTVWetlihdbJZ8dqKtvW7n9Ge1tspC9F0SRoxst3L/ cu53uHpk+ Q590D4FAaf8nUapTsixva8ga1LgR4puSoc7c1iiAtjghsmBZZUkMX4C8L6KVCkW7InWj9Vb7ObYFabuH DTWhEz5WapFcuwWhXK9z0PSFAUgF3lrNjV1ldXXpRHc4auwDGr6cNJoDSh8 +VOk260kvhvr058gu6KwaLcZnFrcI5kC1cy5F3FH7jfvNDIjbbl4C+1VC6B0O/AGh/F1xdCK/s/ cue21odgqQRCOet5yO9plWiEjbHYFBAmVA1pH1gA/Ws4R3jvshuoTUH+Oy+NmFOU3WH6Jdscppd7jdf/ pY2e0crNtDIGepWDnNgN1R2GF0UIUo9gZ9Rllp8l+W8I5vOYoWWXWhb8WkLh+qTQSW+ y0RtNMTnrS3ZAHN3fP9UgdCspiFIHIWnaLtsFvWvFt1pJXhZDCTygs6TUD3fK5ntB3onPnwpeokAxEye iCKa0ydXW0C73SvbLTrkPAoerh62079 +cpc4PEeVkitSIol+KKTd+97Xs1+S2aP0++ GLfv7f7toAOVttXFokEJRsiF8cVEJZvNtWlx9AteMqjHdvfcWNCvd1LW4oSGBryWavwcgRpDW0/wCP/ wBuv4Q+GfEkXw//IJYiUf8tQjqA6tlLjxZmvSHw6yVSYobXOyNBAPJV1OCYPUEBPL4mt12YbMH9xea+ mfsZfYLL1NyfuaJdA2geazL50FnU6TAIT4VeyEN9iUmKSRTC0K6Z065R2P6yzq08e15Dsr50k1K+ PGmmkL4jcpPqa4ntFZ4RGtPqaU7IQI5gLxHOVJFcfMiIHzatly6ctfcJr01Mp4FW+ DdotcNnUA4SoxOdYBsfxmcHo2TF714vQtdF81miin8c/ ZYbi8X0n3SpVcrwOEjp6QCemWA5AOl1brNxCbfbKImSWbthssAL5vSoFpmWrBxgmlxEkR5Z0o7H8g+ FlxmgLvF6p680pdIQh57qDNRcbJ1WCvnCKYJbw6S4XX70wUOVEPcIv09hy2e3i3sRb2qvGu9+LFz8P/ Catq9UOMmxtMu6h7uhns3l+06cEtbWOe+gfRD7GJAg8hVYQTOnX4hKDLqHvr5ScW9K7+vkmu94N+ WLcFc0NkvmSlLCy0z+ P2heH6t41MSbq4ZADxpP4so4mvn6WnRaNk3xqCF0QbXgFXnBlzuS2hGUq3U888GDnk8eDwis6uA+ DocGr+ 8x23DmThBjWYponBUweJH2YRXtKpEebIbWbqgfFKBpzhlViV9lTmm8kuzxH5ek8svFWlPRI1RlyOyn8i qUjvMzaaSV2bci5mxn14qnnNN2CCRSsqwWbBBkd9vHzpYck6GSw5ZaSg0cIvOrzmyJzizJxatv0jYp 0eCTQVBypIRQ6JXGOKwISVP0tLJCvgwciYute44jRgodVtotLBnHIChdz9rvMuXvJ153WSjYMm7pbW38 sMnMeO3tty1MANSEA2A + Lhccvqu67LJmhxLpZAGYl5orxSpNVM4rV8pigORPQu9RJXIRxHKKlNlmFNgo2hrbX69a69yH5y8onyol 2014gM3 /YGrId3hIywsxYvwPoRQPPESiQwyEhykA9S7edTL27Pu/Y28K+O9I+ WU7Ny4riGJekYeXVcgk1GWscj6ZKgyc4iaCGmyJ1mjMGzRHSmWHfsxaz+juseKviDp/ mr5YxJUK327bz8RqQ8c56rzLhzrztSW5fUS5cFD7ReH8UVDCpyDOilXiJzCYCozN2J/eZO8zilsHKL/ gyPU/I7k82XM56tBpL2wsnnaaLNPbLZTpOg9joJFVjVoekFIuR3wxrpg+ mXwGkE9v9NegqwpD5biuf23tfq1EjGB8noOseCqUDAQSQJZI4BEmasrocj0SkzczxKP9R07dyhxIn7UE EurYtM7bTT01XS /oZQ6ifunbhBtIeIn2FFgB1KeyZMjGCLVAsmT6LqYYFsMa2JZXeZB7ldue94/ TVtHAcwiUYZ9aenTpqIk+UjAqgMn4HD7StJmZcVBRpIW9F5V3P2/ vW83TrTz14D7kcV9i3vY3pHzwdytDdBhwpLHSUTOZOCReODK0FLGDw9Jg7uTJ7kv4H7mrG25j4Bs6c1t CwOHCaHqm4HfgvF2tgAQuZuHpIlLPj6ZK /VdKqZiEjJ0mQ1bQlKOdWQrEqfulI6Fv6yRtVHVhAEl0DgZt1ghxzUa6k0h8Te/U/ SX54CI1zArjy9eD8qq+Ck2/wJI66oa8cWimQ1ud8uzREK9FRoUGzsNlWAr03WHzeC1mQ9cnLeGJ2m/ ucNSzExJHaAo6TKH+aZyN3hCcXSi9BM8QvxBlDZosQR555DAA8ZC6vkod2MzYHikN55c3lOnUU3f5/ lcT92KmtPhTHEyxebszOtBDmo3MQPZwSnhxjFhSAyK7rublYDOVJnD7gYBtSwjYktbxRDedyqSm+ I5EPpzchqrl01/z0Wl/1zbnPK0C2gDp4P72jcbkSWyyaU54HfPo/ x3MArEe1SxFEJ26feObunOoKncYQklCVxiOVIzy8QTGdFjKUVXZ1VuKxn5CUuZU3Uw480qH3Y0RuBnPv 1aegN5R + W4yU3klkpM6HDDAZmS3Uq5eadHEDeYBouGiAiug0JjA9zCvUGtPo3yi8yRgKIHlhDgapuVsSD7irYCj8 2liirAhkrE77sdWE7G4DW8151iOfwY9GD30xwo8q3mB6tsfXx9h1YOTCAKZYipC +4ZNrF4lnyRfeZ2xe4FQfRgsfYfmQsuqX/ zw0BGaVtfnewnmHkHyUVUWarpkeDciuPMiAdK8sqLL4fYwLZz9mhoqwlHZZ3Z33y/jTfHHNPs8NXWO+ TS8SsGeTWXCRZJehmQ98HdhfFw2hQi2mbG8a5Tf5H8dD0TWWU4THDdb4Ev8hj3c69U/AMDfX+ hnMNpUB33/p/PW/ldXPQvFEsNik+ tMULSGTe2Y1GqTZdHJSaTzldhlHGDb0b23Qi1nyZ4QoucVqxmwF98UkspaoiLAnEgmdMYaa0PJyMCOBi nh35cPAQqPsEnbHUkyo8S4B +maNGbMtyXWMArofYAv8V4kTmCuFNmQFFYTEVBi9gVuk/h/ OjFeGah2fzgrsjmPZyuBFLcGGMCG2kZRJSFPDaM+ ik6nx1l2Z00mhai5hofIYHkN5yv21238eZ0293sHlswdznAJO7tKi6Of3TnAa4zqIgsWjGBUcxiJEKj3 sIxPznjL + 4rQa2z9Poe5mTpuaNtu9hkDuu7zYEbrJqO4FDQTlRdwl17qVuqYlV48Y05lpjg1K9uQOAobQqEcwwVHf MxshEuw /fyCg+eszxJ4+wzfBMUvRRICVG0XxJaOMnxTP6uTMTbpKUxJcxOWlOtsm2L58l/4ddb/ DNWOZY4liv4acowh52J4pO2OHh0bW8IQBiniiTOa3yYE4eMNhHyuv1kUL0RQbzKGcbfCo0mbZKAtfnql H6pP9s2T9jqwBT1wGQHldbglGRaKAsw1De0EfqHD6pmtq8Gc /gc3WyhRYINZMrQleoETZvZROYi7KOcVHPVpf+v9OGxzrVNnNNbPOVGfDIr+ 54UykTYV5rXaPQCZi7rtiTplossUmrgdHLJiheiqxFXNNLN9kVS3UyjRhl4KMHIAFLpgu5ZSig+ guFUt24kgmmR/lGygyz090BRyTMhRmWTMjCgEDjUrgtk+2yMSdYL8pdx9ZfQXUY/ foerdffK6HDUHZFTg+41kdECF0GZG7ZFSnMlapLlQ+8CAoKkkEAblLOypmu+ 1roVfJXoeuzyLrkPlfbwBmXbN16oyi1he3i7bmAp/ft/ VYtMaccV574Lt4WV3x4pkXMAMgNTFXXFBWTikLZXPYuFZNV+ 170qViMshqgJKGuXAvCH1QT8qQKlr4B7dVzY4CvgelIgplnlTpIHMM7HSgB9bIEGlNBNWFIR2PZGxolA ozLbhPZQL8iLmkpQ44BjTX9meAVQQtEwdDPrTEAsS7uknovCxkNF0f98r839p8jHqDSoDNlHnxGGe5Oh bVvFcDpuJTEh9N5cCTnBCldBTpQXOe4mpfLBbUTH0lW8OdHUCya25mtoWGTDdENIOKRYF Zdf6Y1UOK4pDAVZz908Uhwnni5SioDQDpSEuvVF5DSSyJz4NCOQFj9rsczGr1gP3cC69/QV9fnZ/11/ D6tTaUakE14z+ ULNLlEWXcDLIaYd5jv4QPMynCwBmT7gLINsTKb2V1rwwUxhwhZYTKFouOY3RJs04HRpFJYVQ9jhNwI0O QRwQcNZL9PpLRKUnBO4QaiSg7mjiiqEgMhoJakSgq8FmBZgFYG /SEAd7IdcKioaXs7u5sZj/pgk7X36rep4LI3v8z7mIMysl8+6zfY0R8+XacqXQk/ruPrms3c4mxVY6/ Mo+cKh+ huVA7R8wS87k6xRkUuBbBoWbPBwjFvX7MbHzGI5Qgr4mcswdTKlhZPJXhgYAOsPF1wEhJjb2PttISg4i fnGXNM3mxii4OfOSDi0JXo +ENuV+gtZTJjrNKhxZ1H+xJPXg1suFwez6QvIR/ zLVbxrJa2D9CB2BiTE6lf1HmCNiPRJnruYwcQtJZAJTZ7X7UxSiJA+ DiEAOkXOFyDMW42SiUaPw5SODRrq1ZCGW7s5O5a7RNaVdIgnOVYMdTs6QRQuSvQtqpffhalyajnKPXHv 7dVRWAcrLXSzBuq3620n6575 /q5n5Z5pmG8Svkf73399sfMp6MuVOs0sdaW+ DZLY6nFdvlzHxTBQ92GOJOzPlCLwEnHneDLThC9wYTwfLvgVKQwVWfdLmZjeczmCOKQU8LvPRuccSnG/ ryqFGaEWunxjQNvqetsDm49EGOSZQBBK/U3i2ISZDtMMOGQPNKYQOuxAkv4h46XlC2+ rkQVzwmo75Gauj+ k4bseIh6y0oOsOug5B9AjKWAsfJNQGyB5BcXAXz2wVVIKNyehGDYydnpOLAIP8JxLyxvwjK1YD0oVUxb OUFsyc5HWkdJLZI3bPAqxTxHVvYrcyJHrFGQ7iAjPimT3alPlwyfGmPmRf1VHgYVdCfe5U312 +oMlek1zH8Rvdvo78/RTRU3Fk6pFLkhS6Mhb8PTqwBIdwRDpy+ RSBbEAvmCyZhYcQMk7iEsVTADE0v8lcYd4tIHxYinaeCi4Fk6LkZQayUUPV5CCwddhebSClT3BxO7U3e SI00tztrVQMWVYILW3hUEGqCXGo33hp9kK5NnuiVu7Gl2dMtKHQ +lC61jfnptvnf9URc3mhXiBwLUzC5hlKe7rwgvReFbTXGvq8GpdYsVPYEWMpTqJC/Lz47+DLjQbvwp4/ 67BNjab0hdFEAFZlMV8rIbcNNo/Q3owcGalV0ebaAAgJMcdK+/iK2v0vUH5Xq3wZGesy2T516RMHu+ bvLkr976JYY8FYF0b1AO44Z4hFn0a/advjpXwI+TMxrErcAYPwgmY4BKXtvcU+ vZhjxj3hVPzO333XCuUKVVNXcpMY7vWmcsX62I1w2tdE1k04n1yG1sbTq749+XLJ/ yj3QTV3Q9D5dcY8Nd8G+/cN3NLSZIPTT1WSOVUgYn3+OEm4mHb+1mY+YOdo/ Gx6MmHFjU3LoKqIHalTAYGq6qcYxWbfEMSwsrF/tnS1utEgXlkxE+Mybq7s683EXVX/ IkIUYRZDjeWVYH8uZfTqVYyYtNJN68T1e30+ Gou96cL8wUOzQ7vVfVIMg9rfXCclrAn9Q5wZpZMuBVYLlggaQ1yf3jJtkCl9cbxz7FLxApGM/ SVpIx1h9y+59y+ ErR4oXJbwPpyT9L908GldfKEEk1fdJkYLAQ5O6qpTW5R8xODUAg8wtQ9RWTD2uD1QJDTPUVmW7XQVJpE c4r5n +SbncnpFSI95mnEY4VN8CK4ub0cX0ygFrt9dELKPjehyKVotHYVk+m4B+4CBOXFQ5ZnBcds3+ F4aD6WKQkR83tsYl4/a8f3peYUuXjCDdfjNSox29tt/W/wA97A7/AOfy/ zR6y2HODfmJ0qbsYa6xuGqvRhqkyuBjD682Zi3/jTd6Bla4ne4BOETa+h/c9pbZfn+Pp/HdXya33FN+ wq68J63gGep0c7Ti7/kLn6/ozu2MpRaqa7g04c2ZZx/C472ilQXlFJozl02v0CHg4A1E61/ k5vJvvmf1KyQD94xMSTL9NOis84cM4KLl6dKjR5X5XkOE91wbgKZYYt8vJr59DR0IVUxqjt/ q3PmhTCelhoFhSiWIpaWTyh4RaZTs2ctb6aw0Yjo/GUn38Af1+ rHzEdFFbzeh2Fo49F7YaeYtZUtXKsDS8BXpsd21T3mK5FLUV1yFZlPznFkFWTiy7QlW1MNtjdkqeGeIq fZrcy2yeYrPdVZyoTR3BIsAKNWgMBJGRhNKZ1tsLZOy4feI7MgcTytDNlJ1hBZEVOkYFKT6Zb3SWe9Le M9qh4qGiWf93whdcn6ixookuba1hyijZVNbYSt9MUSWwJWNQaIdXMg8i2eUPjLb + bl9zwZO5H99L9W3on0yjazVJIVONUBqBhqDiJvOdTzcFEsbJZ57yuYUFMlfdTMQeL8LzhSKR5s9ZNTEo yvGWlqVNyTpIfS35Eo4AlPFS +uDJ5wDPHBSAU7IBOlG9ttzlXuLv9Lmqxd0hW3MPzVJUN8Y8FWPADBMVPauM1SvJ/ NTZ3r8fsVhrQ5B0YDg083V16CDygbsRP5v0Gzv8abVXjj7m8OdBYuCPxnTX8NQ0Z9eXGgxuehtM3w23Y vDjdb8Um51yk4myr /l0fRo/nl/pm9Qeu4OBmTSuOTrjj+DfHPm+ UyLktO9ugl8HfsI9p0PNchiPcD0rVkWAgoqZZPx2BWp9rqbIX5x7UuU7+ IPfUcb6oGvrjj7Jb0njjvEEsSr5wX6sAd8sQSjoY70RGvf1sq5R/8AC3/tdgqo23pHYmMzxc0H+ OTRWZjSfgw88r38fVx9dqyaqps+0dMyLHHdXdjfuHFmsb/ mN4U25bX1L4i8cx8QbWFlwt4Ir0d9CD6BRRzqVeNF7OxCFrEzFKi7UOtUwsudStre/ E9tm8l8K9ZLkm0BG20NQUwfCmg+rfRb90+5/QF4B+ Ris7irrjskbqTarc00wV88XHAV8e7jimyUv5BXksv63nJ1xtdZr0fy8R0QpReyBoqY1pA+ zLQcbOAdwkYnIX5k4zTRsZbTJTyKCHC7uZwlVowujqJYdz31W/ zHp0rdOV7cH0eEGGEsULuRZQZozpAPRussq7uVmVd1wX2UXeJE9w6Y6hknl9ednS8guZkkuDTskXICSC ACVWP5xL /niwA8a/szerdKPpUjbY3pdG0og48qxryjae7Ist8kuezp75dsE772f1o1k0v+ WswL1dfzOwID9FOAdc8klX4sgYp8okEoO1A4OWpN7wuq+Utr8pSnRwUYJEApZl/y74j+ MHn4leMO0WtlcaK2r1zaojWaR4C0tWvw8Gy/ 5G1CRSDPdhBuwOeHRqGN9kDyKIiaHMQ0TPPZNMMHpUwSEhTkHEewlFrN9phlQy1zhsReE2zPrvmVxB9A IeS0FKbntCS60eSle7xal2MQ8zASgKQHYbey5qpCJrMMkR55KO /eTjF/ik8syTxZsWtGVmn3ve/ isakbmpka12I2jBs53Xf8N1fV2q1ntIA4bgsEuvlWVYAfp0dVN34h8CP9LbRbw5qTNWL7gv3eE9wDOke cLalDHo0biu7fkmpQAPdYtSZBHCDl98bZH / tnTcuwelYxXsGr80kkmH0BKNizxgdls4L13jjmGN1uW4LkLmbie5lND5bhCAhK98CQBHAB3oiAzhUjkZ nf0gdNUOUbebPQn2zF +KjTEYQOpDd7PMOy26jFl5YxUsjviIolhb8a2L+a0ZWxsRw8iC68aCZc6uq/S7vc8U+JPwOs/ AXgKfS95vcRwgtELX84z7zqcJ2l4pbfX7rEBO6QmznDIqA9N3ejVwuSz1VlTlB1rZr/jA4cuTz8/ epEfTyPdNu6j7zI5OxggBn0iYmqK/9rdzkViUaAj5GELwQ41/ NAZyiK0zWOivF9vMc5nlnGH3TGzbHKTdB3jTLDRjPzrkBEfSyMUrrIVy6NKa/EmoXOoK/ ddJkxO1fJXCvDwXZuoEh5qNWXAclkVNuDmNJaxtxFPUxZivzIeHyYWZwcGGNb58kjh63WUanfm5WKQf/ oBA9yxo9Dt2tVRyuFnl1HBjyYiAw2isQNfPVJzhzVQyeK+km1rex+ Z08EGhprPbt3CYhYa806yfCknj9Izd9lxJF8bPXt09i7sysfvMTjjNwR8cHkVBRIVJAFHVcxFxSfrNsF cjpoKrKVcrJkplfypZYBovEsDXzNqm6piP8k1WxktrMWM1lcXTxSFZhuu9aeNGi5BYy0Q4fek8wvemjP AJ8ENphKAxM4zjGisudcTtJU0pjc sIWSaWYuUXerbfh/w0/qnCVOobsJ9BR6x7vR7H/ u96t1AgDJCCO5pfnMC7rbdgyIR6lzXqjjzZbQD7k9jgbH3EuJFBP2YwIAQCef39JTnpc/F5OnCTm5/ NmGDGz76YU4fZclUotw6czwZ8V6/aO5KU6Lp9ihx1EIr1ornhY01iGavMOefli+ 47SkqSlNYIVxPYvhOJvyTUJpxbMrQProJrNy1z1qts6874H9ZmllGa+ dzebl1bLqlTrtte8A4v311YnLQi55DajvbuIQrhoYzIFm59jRrvuvyAWmohG0n91W6Nm5Ofb9foym3nt E0uCZMXtwanD7SqBsFh3gPcrGUSHLHzfq78gDPUZ7bgcC /wIXopBoU6m8qRr1VspqhN1r5piTi2L/vEa8qwy8dN+e4xdNTS/ 3K0dDuauwWBMZEfEu727Fn6CjwiDGysP2q4b4zzrhc6uva6LCOip9QXkVvm02h3nFTbqsTl3zqYwLaXE 3gah86U62dvsmS5TvhVcBzgvwxzw1ZXN4ryj3r5v3hbVHUH96tyNGA8uP2omWgFggmwG2ByBnOYghTS8 xga / 1JEo2FSeL7435lAB0LOmRWcjo4fuKuuhd7hzFX66k6MbJnj0zqZKNzvZ3iKYAFgCJKw89c0E5J9u7mZl qvpxauJQajlyBrHw3Oh9VmAqb45vBXRI9hipXi / rBgT1Oj8jywEHkzYn5D75tvD7LQ6SZi9QewwUki9AHg3c4w7irdtLRVwJr9snCj7lHoda2DubhNVPWoN cyoaKzUhoL8413iQfkec3PI / i6UtKt9uVxPI0n8yImStPfasDQ5jTDssdBejsr8srmAmoFSeYvon71l94FBB7WL8f2ayfmMe4HkfqGxZ 3lmKf10Iji9taR8MjMrh0QdRpvHM3QNrv51mPusOw8np3ZbqfSD5b6AZjwAbmuYWRkQ5UcT9MdfggfYh Wtux2cr6to6qjOKmwq7Coq05Sl6IvudTTsVCHIMlbn rJ+33TRXdvPcEvf+ JbvdpYAH2oD2IaA2CbEFTqOxjsz3c0nhv82dC88A6H8rlc7XxJ9vcjqv6mDaLJynHYmP+ nfH7GJB0iB7NF1dj7xgkKh22xroN8MlA71N03xZM768cmcu0erqzMwVHoas93x1cagoBmIZ+9FX3s/ zlv7bpni9OnvCbAUoX9bkDu8wXwZFtvUuwJbpg/GCElNhK4l/ rpR8dow295QVzMew0Yau1IV1afsboEFV2tOK/ jB0mAhMdgBzJ2BkobcB8EDoQrsc89M7CaEsrhCkDRYA2gj/ rVuzY27pWwsnsd4g5uHRvvbGX7Q5Dvtr1gGn8YTS0QGI9zzT8m5fVvMNBnKCyBnzhiF2vqpbGWNTV9X6 h9x2awXXKDpFrM0fk1pzIYq0s8Wnh61M +1xXzDngAVgthAo4yukZLpBeknqiMP76bx78dVcu5bONAAErfoYmGUztc7syl7WQ6kt/ B66k39iZaGy9hkjdGUyYHAsakoWGFMzTu7fLmLidEY17/cpj7XrheR7yPNVb/ XLU1hpMC8qMlpWFy48Xbhz1bGycIzH3UnVAqRNPMKKuujY4EUIdOTlBI7TbY/SOAf2PIhd+ T7q4lur2K3ebljcIz6WOVutCiLEKEtKohUHN0eo6e4tmijAEYU2CAK+ sT0jAS89whu2TliLslxgdZ7wuLQya9xeTIYxFX5oznKcIvBaRoCqRjSZBtm7H4yktb5yq1g7Y+ E9Y7YXz4P/4vAGx7g5Btj/b2zknJtE3PWxML+ cJ7xR4Md6HQZ2jbBuyrGHGMYnYbydsmjNxSX5oh3c495X7iu96YuO81fDXZNdQ2QrW2xrHrze0Ppkh4j F622T +HDTatuS5i9d4WsbwA3vtzlF3xR96+pYyslBApkOu2K7ZqcKVjJUIahWqnvEnW5kvqx+ W3qZmjqd8Lo682PB2T7sHsmthV0AqDGc5oHtrupE9hmhWVHSjU/ 2AelJw0P9s2ArpHLb6xnlap2ziDCsxF/lTTY6Du0GPlw8fo/ U1d4dkzfMiUI7fZuDovDunSPReJdawYvbiyJ0EGB3qYjGu2q7G4Y+ KlXhkgIpXwFZQfNlN4UB0UDNZ9TPY9kkUIjU7jV2IE53PG3YbMYrohjHBSks5q48l9xIbbe0SXXZz+ f0XxmKRN1c5EyFCWoMXE2LP5r0phV8ANdf0x5v55FvcmLi0j0Aej2u3rizfvcqo1tpkgttUXKh7EB9pL wzGOkQAk6DFqValzJ4jacL1N +A3Zo1H9Guvmzqb9pdLBYT4GJ9cydRUa7WugydW4A81iFr3wOJEileUUoS4LF/ ut8E8V6G6wUE4uFVA678kSCGOHKz2Wzpwvg7HDqjQ1ipykiX9Pvv04U8zfW+faCYuxn6LEIGYqtuIMoE /iGSzJsU0+JqUDN63KFTmU7nj9E3VjwfRCTAWkyrRosJQafnQkcI152Jx+ T7V66hV8gGkC0VBORHt3AEDqlps+3X5/ XpU5BdqT1N6gyfdjSt6zivwZnuifC8ce3lCZcnLRX30y7lghk1e6pV+ 9o9r2fjxJUv5Y4eiQ9n1Ee7C4e7rBTVJjvaWezlyuu06n9R21JgC7FPh17b1hzMuammP21jpx41RIOX0 sk2tdq6OCrZ6 /DZ3+yqr0bugZwzrem7+ qUQ9WMEcfK5dXCiRBC54rFfdoFT0rTIsExO22X4CcUskizrd8vVVDFXg5FBlS8UG6qF9lJnkcT1LGGYi toNlkqia9AR8twJ5mNKeKAUIhsd6tD6b34eCsxrpg25UuKNGcFQzjMkXt1Pggdi5obgtas3clywT +t0t/A/WjcsT6qket0dv23n3/hDIrMziCuV1ay3X3HzNbgnKmm7oUhNjJVNT0wsoTQmHhPOHDyPpP/ qee3P7mWmQ1HZ/VXcnQS1X215o3kULpItLt8fRJ6N1aR/ qJp9pEH3D0iBCOyE9M9Chgld41nf6RiU2WX18V+ mRnAaSvgIfYERVPv6hGQVu4y6bdyZgwjMK3pY19rFGKLOu23h0WgFhsKVmHu+ NA4vdm1Z87GzIkw3ste1O1Bg4jL03DUcPwmaI4Lq3O2iADDxXikO0NnX2kyB0nPF1PfZ65smBjuD/ KIIglvhK03Oy+StMGP6nHscnWRICWbWLDSSY6rlge201Kmj2S1x+ Yrll4F3ftmnSw97u1i1ENWR6394bR7X9Zce1caZquGiXGhHJBKeHuw3of3NSsfR6xd0hFn/xXi+ ATlkvFjCg6zjpukjkKU/cwwf5FsNHMfFSw/ rGhL2EFwZ5lvkSZLc4uYgHxxHTOHUTW2y4xbHFFH5EkuPH0F0vb1746+ RiFbnmW1i7vrKNxMMcwX6oPUwUGEKxBvsDQUvpaDW2SOFj8oV5n4UaW8C9+n+Lrr+ 1tKqavjl0grC44pqDawX6b6IgdCr33keyHdS4GE8+/yXZOuJcbHl26ccwiwq22Ucg3r0qrhWK089/ Q620ui2UrQc9zsVvHuHOSNKCdOEgWq6KGOXlFdshVifatu7HR5D87W9trccGl+QsjSD8xn/ eidzs2FaXa1cJeYDDLJtKPpKLZI6qmRYypAADVvDIDw/4/ fFsY3XbC7BgUE6AI0EobKW2oPpx2vRpMpD5TdtWINs6e3L99XGzj4q87j0edhHPGyJvXvIHao/ HfhrwBZ+ L2Im0eTlL7mGuKv27h5b9Z1mfO4UMXcXrlPsLDoqGqVdxMT39ERbuTL6ejtkQyxULiFe7VnHzc4pB8/ Ory0ideNTJG9YAeV6mBv4nZ9oynu+ nyhPnj6OOQkDfaCRLP5R1qO8II1z8ISmvXu75GKq7tl827c8kMvAkmnYq9xt8mlErtOROQlZhDMw+ OsMLWUhx06js2GUi517CwO2A+Y7U7qkyQBnH/ mavCpA1EWNpVMP07cG7jaqmKlC30PomfCnbw0fNegpHDmbqo7+e/GPjfRv+FoXmsW/ eozBjStL5VSn8yWR2p3lx8yrxJIR6mevhefa7IXP2r3VPhSOAWN9Bifkjgo2elumHpA5a/Tw/ tXJ4bG0XHLXs3AVGtzLQfztRp0Kqg4dghhainDH0TnGnbARaU/ 4xg2ka7d84UqXPsvaodTCpxaa6hiqBAzGN5eMw4tp+9ayPyWRjBBc4ozPiosH/ Lc4HPxb9PScUbAkVRBhLvDhTJF5/Xd7+ rh9iZEDIeaVIM3vDDk8z09TJRjoyscJ8TdR9vzv64v71dU7Q2sPKWwHtzI36Mms7+ 330k2ETUgw8iMj3ph3jly5nKgTmx1i4c6wRmjFUtlLjT8r10cg6w6O+KPgP/fLjy2Ip+Lcq73LDqMbA+ VClWUyOjhRlY3c/eHrWcKJcaRKicRiTktxtnJzZW6ggefVcApiWxkWvrVkaptFmF2C+ ORCP7hbB6efQwcXkGGDKr1XB+c9MzxT95fZnrm6WwJg4wXdaO5R+z9V77WY73VdYmdJ+W3W8LzD/F2t+ C/F3/ YVupuxeO9Zt1oS3Y8rojS9rC9fvD9dHlAz5l6YScpGRObDOe64jn2vvKnMb6rcoPEHe593n7g3eI95py 97DkM1SQNwiTvNySO1zq40dHkrBF +nxk4Y0VB4jrsvjrjw9+xl+01kWa2lh+ 4NtrN5Qbc0ei9f9aTaZB2mLx370gQmHeY3zrnEdk6KLgvE7baxUnWoSj3mMWvo7UVdRWwstOzgz1kiRh n4gl4dIWUYreQ /G07Bttc7giNv+O4W15wk8rtusUxswnsO3uLjNdq68TKX9ylURW0cySsdO/M34V/AOHwLJoK+Lr+ XCoRcBh8bwKdsR3BgeplWzby5n9v4Yc+tFPqzTTQRp9cKO+ZoBhu3/EYpFT1kdT6/ RqyM64sjmw4Xlc9SzywnzUSpfcG5uao9F3v8Ma5q1OiumoSMmfIQkPQSQovQdj95L3WzKAOIjUMwu3Zd V2e /mvts708wAQbnMR25W3elNtF6oIgosYY7KSEt3jisujBLPRn7ac4r/ABIk/an+ LUf3YtG3Q4swW3c5tdThrgmOaxNHXU9EbWKHmrO/Zt+X5PNaeurrjy5aedU5leUBRjTlbt1+9B+ VZnBQ489tuE5MR152nQ7cZ/p58weH13+ 8tHqJMZ0eW82tDLZRe3gaG5xf4hrX89dlTUN4Xd90q4wsR9p0k3c1/ mKc1spBmq6Zg2raj4AnTIltTM8ZtvEbUInCmzOLvkbFk2ruRSiY/sl/bQRRt+ vjjxovH8jcW1p2xDqNemZhWZquPwieAfAOCmOkIfL8sMMqHy/ wtLsGix1TKav7kxHwq2hkaBleXKHsgtZlHwV909I5qyMm5yN54vTF+ aZY7iV6TfLCTErEjlDslnYeqMG3UAHmtN28qs7L1B3+UTQh5A6Fy4+ J6kapmg9zkd7ijeQw2P1MS3p5gb+7SiftXXEY3Nahsj4l1qbHGg29t0QfLplUi2jBjoBib21e/ K3oy0nw98lCN2UgNRzAsVzfsw0oO782YQyE56fgwgR7IU0VlaMvOhP8ROXmlNQsLChX/zPwTGK7gkg5x /3muwMg8Ira5eHOnDmqY0zxM5htHuSXCWT/AKXaKVQeXFEjyefcBbU+UVPofxj+ EliuJCIPc1s5EGJ4ubxyurCDfGidcFv+W+ ExuzHdJxTDx9sSjeJrsVROVkpaQhW18b7ttl8yvMwdIecNddE0wscfo6wg5vv+ 7tb9r7qvpMo98Tz7RTzJGHy+iEcop3kkHGVaiaTYwLkm0u5qbCy/AAm+FzWus+ K4ohD6e6Wcgi6Ezb2rdho2pq0Dby42GWuvdiBYfhAt/FMpV4luy1VCKAKKbblA+ LHb7oAi5s2Ja1YTJ60TwvYkMmioAxB5iXzt1HhcnsSecvSuPjK5oA1zhuKdIPhlAO5yKBgxD7oy7Y/2+ RzI4yiCQShVkkvPao75RR4qYjnMdEGhOlE50IQjd0DZELT7ubfcVc03lNX7c23d8kZi29qouY4D+u+ DYU8Ur39MZoCTXldgZ2UhQ6ZjsMvgs3KRKSQseqLkm6gB/UJ2jjuw38H60ATP1552+SOd/s/ z0c457N8cfiTw+TUrc3kog+3bi2wUI9nlfQi+ EMZfJyiPMFVdNw9bfUQt7ry9sxDHaRR8QJojfz9v5TS3YrTXfN7P/s/ 3SydYdw587xgkSypz99w2WiVZtxFCm1Une/P2e4d3Xa8wEakVask7g9C3s4fRgGuhwADIGX4x5z2T+K/ 3Y9iQQhz3k3w2plcZip2XJw9rx7paRAIsn1j18extsiaxg5iwLThaBiCpPmkporXNpClddnmmAKQR3d0 k2LuRFzr2J0y9shUS1mf9FwloL7MFezVla +7QwymnHAMHgtV1SGay+JUniSQOI/ bP6lkU0HMNR8OFnhdaszlj0uOb8v4antspWuQZTCk5hSXB3LMNmtQNEUVOGDhaRIFba+ 3Z9f1nvG7X6AZ7SxuwinuocNZJ4DnKryfNGdZjm9id6EZv3Pff3gRrLp4UdNecpvK3L6E0UO92xrFSIE X8xxKiZ5N2TgnyRmGHLfhujE090z4lvhdPKFVqqZs +bdHmNufdemu0a0Qy/GLK5qk3i8lU5olP4GAdFQ/ hlekAJEahkLODYAqrQbXVVMHk3XJePILTPebDCeG1htFA5Cal0nO7vvn3IVBgm0Zl9wDU3SgoyaFhYeh otRPx722h7vx257P /a9Qubp7DxOejPLpO91A91rbmCtjKolbgKi07odTRtlDG2d/IYX8f2g2gA3SyQVyxZmjZvtIcqAZ+ 2gtTnuiel8+e/Bx8xA8zlbjGcErs78gM4DYoAM3vjoLrdjkmMziiHZxakxQ+ NrR7sVFOV6WVr5xaqjMS01R8H4eOzpNWfWhizmY3iylebF3YBfmLzSJUKApBkaoll7hvOfuChzoq8gfJ pZNwIswOAD72X6pkWLGVxiENTHElAuPkYwSbMNl9nyc9Z8ssVLC4glgku6Po2IuNIGGHWM09aHgGSQO6 Bqxw0dJKOFEWiObuavlg Pkv7ZJpFdI+yC3Vx2enJwHnUWWwt45CuTMqMVRdrprKKA8mz8b2zkBdaoPA8CV6zqm68F8QoFp8C/ dn915J8mtnl1PUv6QHT2X219iyW4EgMQRabKxZuVf9xT0UOHplsMkIBj2fIh9TyP8ZWiGpHhO1hR6x/ HNnpQcLbvewSOmQvc9LDzHbnJinZDSxaGQtvuhTqlFNkqHKRVLbfqWaos8x4sCL/ RMtxu0ynYtxF9H8UtGjCvE5wx5Wwf2ig8fOgzu7Yd2ixNIkRzZGIP7cdiegOLUQua+pPhc0F9eITm4/ RZJ/ KNfsPZh8UYEiOf5x0joXeStAU1s9Cjxg8lJVtTgGHBgYwZyDVUinjcYsHlboOevccdebeBjT3Oq9cBfp QsDMFoHw33cwwsKDOi6nDPbp +0DQTikIS89Lp/Zi+PvxG8X/P9GdO4thVxatJmQnZG7+ 5w6Z07hCAtJ8OTwLi8iKL8i8Btw7pxotWagizXstTIlX/UuyM0UyR/hbSbDUPEGnad/ WYijdyZ17w9YCdOKKM1CuZ4Opaz7pPzFwyggkyiNwB8nITLV3+S/gt+ aF0V5YxK6StwRJnNUsBZ2RiVtF80IllRHlS363LY8uRWVVzhCJvtqhMEbdsUq/X057JiO7kjy4dt9+ h7KpkMbfevs7rvc0imLRQTGFz5BiFbA9W3Ji62Pph2rKAuAuN6fSQSr0YAl5uApOjfakSmw/ 011ufMIOSjEFIvaysp9AkDZIDK1fg1P1Q9HbcltNz62vgw0gd+EfiJ+ ox0Oq2n8S2nyV5C4JGmvMVaLWGyw8agrzU1aXM+AjOI5sSquzPOffA0npu5OcWgrEyq1H8Ehr// Dj4K6v/JHQ32yF0Te2qNqF6hbRVLTeKl62zjkjKoH4cklPxRL+P5usIJ2R+ 79wgLCE4MfA1tr49C8ShEjXxz0IgVh3wDbLo1C0a7eHUtldXtbKEqlaseQbgC4crnuzBtXm+ 4c86e5akTvWM9zkbMZR5ZMYscN6JaKQTe7fgoGbaIWvEcRN0tyssmLKtkyCkd3kqc6R2fa6et01ke49J 0bV9xnTOP /s/46kRqZwHFLyDHgWzJmhtFZ1+NhrdsrK3mqlT8Nwr8uovNzO62gq/4K0aG+ 2LZkPQicyDMlph1wg5aPUQOX32AeEFLqw+YPhfi7TNlH/ GFsh0tutjN9HjtzaVKlgyWBxKo4zLFUpdurCMxFwSXvyvteAPHzZb5kFIqijc15kD4l71FDtadF6KGXN TLRZgJUkV82Y6IKkEcjr6BeYRkB2Z5H1JkJus3RqoDPrhSoSWKia1sLMk3zeZqYgAk + KeVWRYPOXsbyg9sLylfVsEh7EvOHsHxlE7dhxttn1ckDunKPp9NwCSh57PcPbjkepLcWTropkgvF4bQa GECnQcVoa1akpX9m6id7vNg1TH5RR634jK86cQ4Rr375UEYzON4G4TentR48XCVFpEu0e7alGEwrkCvI twiPb34T2bpxV1 iVwhZUFZOys5Neqfq+ FVtbUzWkZz1Ku9SoY3alyovcevbt9BI2CRCNOz5YDLGegKxZnxNGfBqUPmfDaj8tv7ssHpZq2+ee+ wONl21b8O1cKCHknfBTeRGZiDyBZTT292GNSeHrI/ rVG0r7ndioAyvvq1wVVsUOGsh56w1z4h43JU9w2f3g2Tkk1zhuXuD66B3NATl5gR8c92kGWO/ KuyVyeVsQxwPFUjt9KB5Ex2VjQU8uqU2gBVfQIJ2xHs00BOIQNnLKKwdfAPdEXgJxWzRetJPHpgdA8uy H9YIYAB8fL5fbGdFBeqYjbS83tt1pmXwgGQrfiI0qQduZCNNTxDRWnIMKGq1Z7 /8hYzijpcbIkg0uS7fHQd0CRGjhU1RJZLBvooDhNBM5ESAIWuBwoYHK/hV+ x7t7xm85EgaBf96Ypx2c79cmp1Spisdu7KvgOtZTEKy8wXWziu80fZvBytZS5WYJ5ccx6SVWgzV98WAL y +t0t6cpfFUXfBTcqQJmUyqEgZBWMAieHSX9BmsWsm07sGxfPmW6fvyGB+ SbmbyZrL6rJEDEknopEzMokHjvWX4D1y1hMHnzOX5sJuCgEGBIxyl8D9oAs1Tt6qyzFI1gXYLSiXPu2n tsrTE6AbST /ESvGJolaKQLkqudNtKSaslrbS/wByemtn+cpLpYE5uH1lo51+xv1XJaGrvd/mvczSiO1/ yqnfhiWGRUbuORGkVOvhskNlmfOpXeGXfgWhK02OBLtQQCpOLJZd4MsrHPhqYJJMiJuL8qMPzlKTari7 WzuPElzpV +RstOi0x4hZam2UGQaofY5fHhVnsE00vsMEto1ldGmSR98Xhqi1BY8ZPUu8eSjS+ 1KpeMLkY0Jc9qnaI1cxWS1qrZqT5G6EEXrxLfrHu57OEo8+ 1olWCb0Bpdf2H38h19Wqo4C6qMuRfVU9QrpdGjvMU4cOJ162IXvvJYIRCxF85UJfaTPEqPrX3/D+ hx90bt3whr2el0aggi9BaFkrg7znyuPTwSVp4lEGpJclrz1WaLUEyGL0iuKcMBdX0EWVshrsbp5ByXLt X5oyMGivH5ksZLH3OL73sGlvf1q4NKjojBzMmuoCLPd5Jpf4XfEuXMAjsOqUvNe3gRp7305WorJC6ZX4 XYebTgB04c7CPvNeGeak8mnqqbzthPp9Gte0SAoiCxCJdas16nAmaVFd evnvX5htYBBF3UWgcSuA96l33YWyWriiw5EBIADiNNosXQid6yVzL1KdsUZVN0UUXDK4pg0gICvkY5Lv uCQqL1HzdGWTE4luvIpN ZP00yH0wgVAGMvH6z7ixD79rUvi3v7psibZujkDPGKDbYboPgkp9NApoSKJ80V6i05jl5317ZgaPZWWu tNdNWtFZO + 7vC5kjqo7k0tANUxzyXrWc9LFEJuHXvCkRrqFK9VfmPogDHkGasQAoF59hq5ONCGljoii8trlEtEQION UYwrrxdvmqA3E +6CudvV/rgzWzN5rcOq+Qku0v4i/ zf2W2ijxmawasD5qslrbmdhkhRIxgGWvbZeNWRuZCMO3eIdpqIf5lRePDpgTTafGQBAtPHwqyfdVBYT2 KYRdv6BJZEOjPhRYdc5odujT2q21LGVPiUB87NJCOFTFvoLfgP98k4sflC66rR0ctj36yeA /GUafjgb8za1v913+klqdMqA6o6rAs9TaLw75r7a/B+ 2x3xxkeGATj0aioBztUFM2ENG7ECuwvVFjbVITIQAPwMPLsODruYzXXqozLchUmDN34wgsyhg7kRdpAK VGGXPCNRlPFJVEc5RVXAdyVLWWUOnQNHP325Q6dbjH0Udf6hiXVhYL6amDe0 /pOcMxSDEL3Dbpe8oTqzKzf9KKlstSkZQZ+ 3rVPMDBAYghWGai3ESKvPBnpkVXsfHNohgXLWUimFSSFpWDVcL16airYIsectpxOBqNaNDnwsuxMV1GI JgRUf9T9JwK87WADQ0Fsh7NhKEfyf72aNqbi6q2aDTOrjJB /h37UDtN2bIoCUrrIZcgDcLfzGR6ExmKaE2KMTZpQ49wq9aTyjMCXvY2tTPFyEYEPKMHKWf/ AVj3UF0Idi3OqGUXstLnVkrnSXAXk1wE8WtfVd2hkXZCau0p0IvPeVAmyfoDJLkl3m2HUzeYvScnn0iW crvySTsvzXb +qyY9aq2p1/r+W+ 8oJjGkjEIzDSKnuUA0WHCPngnCJOhqbYnJyP5w9vFHZRiMitTYpV2lcbiO6crtU28sCQFcnr67ekWq+ NGLCq06FOTrqbKEtk542OfWAHrRXCNkm75QNXEYJYwTKGyATNaPRbCYJJNeEUfMPuAVXK/ mqPCdPe19d6A803DIC1SL7qs/ sOBwKK2LTlaMzEmYFPDLPgXZnpNnmIbFwJOcprZPT5t2N1ICuwOh5MxI6OYDvUwSsdTH7hu0A7LyrEvd POvYvV79MaxfCJXbJW164sS8zvxCvQlZ5UigO3A6h5Uy3XMYE01CcjDjcJJ270It6aj +/ 0OefSS1wv7Bf7jqVvS6efn8HqSYECV3HeifkZkdbuHsJvAoPPoQlVnUHVSHWgFwsNycV8TIIQ3ulKTTD vsREVSFm2rMJBGMDOahySsXoAXpNlfcVQD7jUasLHnWGYWZtVc89DVGCtqzBG +/KsMDIiYsWURyCNU+GL0xJsIRwwmvHVCoWaq02Uk/10LSV+1l1S7+9r5vTW+ 16dRaQi4wqS0Fl0lrCU2QUzaQgzXxQCFMvKnZftmzHwQH6vs4hvFEKYVUuGyUNdVhAe17NM2UPOSTbga vY +D272SuIwEoGaIwmeFmVGDcoMLhYNkMix/IGAtPytoaV9TT/ jhCncAaNU5yblTppPeIJcHmO7beGiakB94Zyz01UBGr6DwSBuNzX52vddw+dQE0nhGM7hTUqbKpGdKyF / rMWJHGYWcbpXZKHIQvoBPBhV3OHXf3TSHybHwvFTdUkXGaWZqw30MbWWf6BXaupZ7FzACBH7QjDzNDau DA3TubohbwJmjskluR9yWsXoeWZKFA +T+YKIwi6WayZaow66l8Vu6+14944V4Qi6vvu7h7x6/ RSGZpKypDHzLUvtajNvChTumzBbZwcisnRZdiRiltkTS1vsW+ OFC3FWybxhxChHqQHkIvlCiSo5PUtGGuNZb7G55LWdLVfdcDdHbSKwSGCO+ VxRN0GlNxugH2leBwP17DAhDrDbv8teOxIgYyTJehaLrYesXcshY4kl5KWme0mz76SYPuKH1PwaE5h4e itgNa3WT2q41oaR5gMEbcWJlpoaQfxVkp37N2gRYvq9YtQDxO11IALNUUTphYyuiq15 /tuXz2/jT4Z/ ExJkU0tnu0Ay3S8d93Oeg4ClLwk3RnEztYxu1ngNbm7DZPDXzGcTDrEb7z3Bcn4YcD1D8jlwG6DnZAZS 070GPMrkAAFZF01ODa0ndJEp /n9+4EXdhrKpS5mA3UjwnY9zBMfpjx+Y3BramqKU6QL1cmsuCUEEXj7+M727SkvT+rO3rW3Cf/ 4PkypTakx7f8qwsxa9O6w7/S4NbW9OvtYrxu+4LEnruw1MxWWNcjoyrO/ EVo7vPRKj9l2bbpbKCm1Jk2PeN6tzQ7uxWbu5zD3cTpEzQ6oDPZM1qm4ABAhoAM6Iam5RTQwE2GwTnnQ TLSPglfO8ZnVdpYqLsfaosWchz /yD4am3xo5BUlTuDlZR9QnjPR0E19VkryuUVpjncAdKKAQUezsFxkTmznVp9M56CfrB43/ juduwc42Qo5u+7i2W28e/SObyfo2puEfh0aULw++N5aOtd7KtInEZHkoMDFBBWTDP4hP/ ZEFrUgebE82KU6v80kytv8ofjVsO/vA65tVxkJxhmHlI30q0Agk5ergA+ YAhJgIrGvCJDYHdflnograscW96s+6uG313IH0Uc209kgfvpd9o/ TuZ1ahdJbqlQ4szhtdyCBMsUk56vh5Yioq/wDWT/OikyOxB/GlyOmefSuI+kWbhB4Z+ Fs9dVI9O7N6aNV4OURI5VA4xGx739/rcCAeoB+oB/zMGDifcwkfhKmVH21fE5yVbJOO+340xtwbI/ AM3kzccnFr3vqDMtAM2y66vG7HX7VXvVR3PqSZH9NnzOPVUIAAaumu1hLjP9w3OEpzOYSKGGE1s3eU4g 2fLw3Yy3ahKc /jGZrQC34XIu7/93syVq1+/bpb+juY56k1r/bXffXy+7moJRYRFkC9A1/3nnxmUk6ycwVNmKTCXSWS+ aB4176v6DCOWsVqFqw8kgty/Tju1/ASZIpIpXdH6gb3LemtRXsJnz3OXMamk40vo/ L1t55AZFsoEK3n3GBM8f4jpc+ QbszRgSddwyCCn2vjZxJQGamuG78FchkBibsU55K2UJHsVm9z34qRBdCo2aYbHKDeQtAOkEFOOvW2ME1 FElfcUGzQsta13k3lsdG19tK478234JNYVk45LAyAAAyaO6EMRuNLAWfIOPRDpWvWSr7lQtMKy6UJea4 87tO7 c3espg6LRZdtqix+Vq+22ttlp/z91qim1brqg2ReVNAV9fSHA7FjAnZqxZWxKLxsblVoVjGb78+ ObvLvh8uzNAOiVSg2lhM1++ AwrcctVbnKZV41WNVPsS40gR0Qh0mXh8anERCvu2WPRGNRWVBfErwzZpN4AspR97gepN42PrHduL5i7a dHryv59svabukrXc6w3gMda1zGlM0KMqrJSTYPAQpsbWMj5KRzGHYccC053ePmbo2W01b9BfzGoof +bkj60uiaLP4H34/Pyb48wxNGmyYSYNd2d15niVQMKFEV6V6YHYorQrXSNcuKFLIms/ 3XjRiXyUl72ScW8J8255QN2ME8pFdpvl0mR2NiK6opGIMTHKVt5PIcLY7H+ aNtUjG1qHn8p2h8mDzyOq9fQIIGGjnzGayNJt3inmbCxHSUL5H+UMBjGF+MmwP6We4K+ Jc9NaRT0jGJYgS5PNSs2NyEIFYrAzyHoS6rlKtmRjXBmbsGBpK5onXckNn08Q3NTfb4GehXzALepasgQ 5o805zvPyVSzmQMW7e /R0kmoLde5sWYsQpdpihxkelXeziSXCNGMS4QDUcRinX1JrYtTT2geuzrlVXywKTCgH6y/wA3bI7+ OyoBEBPdn1Fgiw7xk5apt4dQXgeKuhDDqlIVX6vuTcDrvaYiZahLn0tRi2oWvGzdjwXSOTBUDNZVgDHj 87kFXvSLHyJxi72tyo7KZK58N6ztzn7 +e7r4OgGgmO+3w19Dqy6RoNb9D8xj8cjkV0CwgCRNpmAvThXYTMGOdkcmAfoTgtIRRpkZ9I+s+ ZaiuS4uLVrlvjq/ UQCh8KQEVdpAbklzQCnM7V10wiEzkUesuJTPHI8DjkXcw3YdVXyYPfkJea5vGwelbz0a9PrF36H8jYrE SQg5yz20eanDpeHkXV30GHlQUbOVPkwKjR2hnJiJXN5zS6 +NzYO2kIw7uCgwsaeGx5Iy+ AfMUhiAVEvNBhMuMnUmysNVGEaGqXXcrEdLJpcIxO4CrYskdwCo0qvG4cGGFBW0yU6QCKF+ KNfNVkSRuNsu/qRM6gCuM/ 4y6rmWC4UUciNvzOwYwUGqPyQFstcegMaHBDtjE4S144dNPR5HqPbmOamOqx4oBTV63BCCRbUUBWHHWr i0IwHdosn /Vj638DsHyss/mwmg0317M65zAsJALeU4kb6+WTbghkmQRzK+ YJYB0xsuGqtHTRuUccF2psH0vnWaurwMVdwghrPW+4ksEb2iiNvCqXHkMBsEQ/ aY8t8YjNfELEQpfuXU7QEPWHUjfYuApJVovHYV4EoyD9YwtH3qpHJVYjT8NmgeOZCAqNoblVAhBZWNWc Dx /xsVvi2Z8rnrVhPc08+ju637fjr7iQm5/XXXfo76/dboeRfEEXsHha+ m3LLP460SFLIcLDAs2Dc5umczpfiiUqPDJLHmKoZwiP+VGW/ WkympcukYjBQpazOyOczCJyby2eC1iPMLXoRYoRQHTGM8yTUX1eJPKGbVmFKz8h2MtHj2zvV1kxFIZeP snCdC7Vo8ObNlVEFxv4VZVPjUkAOHEd1At /xL+z/brwkPY9mdh8xex82xoOt3+RXTUEPJAHW4HaWiZ5hyp7vOukFnc+ Qr7UKg8wWCGp6Oiq0L6T8Q5lk9+4Pr6cDfz85REzCxNH7gy/sh4EO8pU1vzOTzfzge8+iPhi/ ix7kMMOQE10ASnxKynmY30FI+jJF4aHBH89mdE6qiy3ERJfZ1TGFN2xlInG9g2nhtzL5PLJ/ OkK3pxrlNzoJVnFL2P/EyVLT88e8Ex52cWRr/VAYTiL1xoFt0ChHUHueXMvtuzq2+ KTzC1qd7fjR17tlTFAuAsBckwivnQ0Y+rW4NaPGEQVSSK2emWVT1aQUMbfqK+ YLi77roH9v1HgLYD47eQST4R1MRJjTanJgWj4ynkcG6NOVvjoDjJPheOusAq0KC7Zca+ mnmrfMB1pQEI9f/W972fY+w/jcsNc5CMzkGcQNmybFhDvYgHVCakRh9No0tI5+ Q6E9rV3Q65SB5lemS9DrTpaJzOurYM3ncsgu2Zdh9ufmouy347m8gKvOLRzy0DuGhuL04FmNYGR1n7aC U1HxqONhH8FvJ0B7oJLbmHNHCjz0y /nQreVRcOtVUaDhwr1P+B/sJ9yw08x0YYgTJrewf03+ QVswQ8pgEPtEGd0KhdpI6OngePBRK0qtZXhWbqRnEOQUf6K/BfTrjTDouka/ Hfgl15jE6cwOuFHDHqhZW5aLRoZvzFXqpnllLHUdeXR1xhr1VPVGi3asPKGd4+ 8B6x3yzH5Mu5OpO1Uwz+ YwkqX6DiC7iKherJnCKu8DtPXNjtac5QE72A6Z3i4Bov8eL1gRq4d9oTuFEce7rfMiFz3zMAEr+ n3r2iWgyLy17+ hMmCLeXsHNoHsrU6lJEKX4D7m97N5WJoG2rwSQe5OLPIYqhebILPvMkMh3qeO9mUmoD0ompi9Odenm59 Vlh3 +x1kwWhvMhphbbPf4ojNXDrjC1LSV7zDdPgEEEosqtR5F5KFBNN+ 9pw8pALhXGjsHEEtZeHBqLveKsWpg98mS5dnFGqket+6xp6baK5cYFefh7XUWHdqJ+ 4WU7h1aaq6icZWJUnbVBGCblwKxuWf3NwWmytLt9+d801fhIQQMN+qdIKkmGaCf06WydRv+ 68e2d3ZFpl6mS70YSge5q1DqLMzggtTLWLdkJn047pZiZjtXC02OFvE3cbIkmrl7+ 6qlfGeZhUCiojJrXRy3ae+HT+E9S1J/E+lmNpY6VzFIMhVDtMqzK6zORJuya5hdlE+ vSTqJ32rPi5jvb1z9W7+ dyO3w6P3Uyka22boMagmX7iISKx4g673zze262BQFP6c6Q3qhyuL48wdi3VlQo2cjUVfnw8J9LnjjCWR AX3h2 / zzrlhOP3IDMW2gL7MIfs48uHYVmE1t9soM3umlasZRcDqUrELJAQOC8GQLpRXSc9vN476te22P1dcdaN ZHscbn5AuZF6Ol0dhnTrSprLjAPrl /N6HzvY/D/ Y5K2VdZAylS8N3oIeAHBaVbnAGQZkKf6vUCDSj9kxo2Tg6cO0zENg68oeNnkjSKGv2RJejECDd749opR wnfrLF7m89S3ypvw4GXxtHhjoqixvM71r5bkG /nbxFo8RMHrUel3DwZriPYC+2TV2VLVR07db9/ zxrqZ57cJ0hQPYOjRdgdo7CfzuxL9FT1lU8S07tT5sxKcpV+KvBsfhbUIbKwtAL+/ EQOwSNasPdMRGNpEC31IcktBBPjbX8jhWsdbV2l2bD7T8e9gfSBzdu9wj6rGI4+m/U+my/OnXq+ fyOefKg2tyelr0s8eg37Rgwn7TjOMa2hiqb+ Nx9AaGp3PyqdGku7IhMR9lRgvraDRlAGHa2dSp97XYjMVUdVrpkA3qZTDSf5gV97oGgHsOZBYD8vIw5a hojQM4cyMO8hCERdiEZsVR3qvV /zP9pnloXvE6k0CCVPI/Z85c67mErSmfPYmbm2gQYYaoDqN1lutjlnFfIKjgJvW7CC0JpzBUmlb4IL9c /D7xNdx+Y1KmCuKdnWheeEghbs8fmksMsFP2zOZAFvwURKU7yHkSLMUYxk++ 2rBxBeI4WwZ1001Q10841vIGmXG1YWglotw8wyn5W0fgE1b4Rg55K1yYqKzQ4Dzgf7UaYn8ej7LeFkcK HT +5Nm32zi7Abd9BcepYAvrpw0vcXAk3QORwz61g+ nSW5mIsmcwt8pRZHqARv74mqFFMPbacVBRUGi5JPDOr9FxoQ7IcOR7+ C1s5kr40a9mg0lgbXx9f6HbPkLBsD3katrPuZ/ kUFQ0ul16ccHGviVnBgf9FNZ7wYj2pkaKv6H4rqzJC4vKUCa8ug7tQSmH0X5c/ XeqeZ9fUqLrzijR5nAyCmj9irmerZJohuBDexm3AhmfYhr8t4n0N4z7SiQQn6/NY9R0M6Vb+ wH1152iH2XA/D/ kGF3CW070w5rRpSQhwbGdP4yuRH84xJNkA279ixFZIJhRDGyNjmIaShc98Vajt0mi6g6YOpRRjKy6RMY uLO / WlTc0pNhoUrGVG5swjp3wd29jqPA4ty3ngFpcQT3qvqg1cQGKdiK13SfoSM6x86771mgF6BhD4Kl1lJi DGJp /UcFqcGx1Xmr3KETwBH/NVpK3bIFxOo9q4ftEOJebeNCvM+ jYy4sojckwLZNAYTUvnSrFun7meqVXcPmfeivCP6o6yJFCX82/QmxptvEujCnEtUsWw4Uu505477Z+ lvU9+6w28cqoN330PWHJZl/xepuLuKdIPCF0QAHHGSAftuy8HzL74g4cojMtXC8agS/ lr6oselK6VbhqMcXzFwNt17Z1l9Eptopw6lkU8v4RfSA8rFTaT0aztFE+istvQC06baSQkyeD+1u/ 0LEBb9F5YoDRqc2r13jmv7rfs3C3dAFAtATO6s8P0qTNMjZ6qKqGn0gRHNMwlk9Jltpq20xqY+ Rs5P1PVWUIkPhRL0V0c0Xjhe2qpspkmJLKX/HSPUFPANnWFbbiQzjdwnxI7txfh4q567+ dsXvBVtzueTiLfERpeypuaRR6nqZjuTevm4I09W0JySshY6rdsb4By1Ly4CJ5yjAmhCIKZCZ36YEprmv ouM3fMYVHWQJegcnTMyjSFttM1w4 +RBPVggp010bzWD9x7+7g5vtTv0RNCYsEr/JhtQlwIja/1gimpZQbCkrgQ3cIxIghA3nI/ J8KF9FBDm5sOt0s8HGZMVCMOlV7jM61XllyW6oYCBzroA/PhVAyQ/ M5vDwbcGMrDGeeZiTbHiJhyFMfYchpg55r2wcq7mpjU3Iq7QfgBcOduoMwNKcwc0tdWyVevejgXL1tH6 a6mvedGMqOPwzSkzYGcuJcaSZZ2nDmJs9Lnp4RqMva79j4EirAkwwRBVb1ZEnPk5Lix2wcU5R43csfbY xJ +8e3aBzo34RTaj3nWDbJLK5M2Z9t+ VEkIOstCPhdZ02i0zsF9uCcyyTMWZhEwH5aQm1bzZMvKTQUPg8RfM9ij2hfv+T6IfxGd+1N+Reu+I7+ yhudb0+miBzWluzXr9fovZTL5MmWIHHNZ0klr7UbaISF0YzisTBhiuwK7jHAcb+ ne9np3w9b1PKXhkQdZcbD9V1VCONVfcKx8wkvodiGOM2+ 0OxPxvqpKd4eYu8rJgExbQ6hslj44RpKU2pdm3p8wX4P+7Sauk/ YLa20iI78SGcLHFUjMaDommGdWTLUoSt7TjM0jZ5a8tpIc+u3xA+ HkaF4hgNN32Y8Vo1fqs1MjbtQK69ZRLENc/y8RFDxod8Fqpp13s26X1i3asEv2ZKyF0nkQgA25feH/ MFRDuQhp0pv65wlP1cPwAkyyfgDDNoyf7qsSc6zB+fXvO7IbILMJrRvggsOTDn22qcwC1Jd/ mgpYfvQmmF0AkSP07VW393a7KlooZ/hGpwJPE+jX+djPUnKoJCv4aMw287VpnrX00dtlCDSVO+ jMvWzRYtjhwGyJAJM640lwB5vnc1rwvDsPH7NbQjJEioVMJkbAEvVaGKYQCFrA7izNXFfGtWOsCOlTh8 oDNMkHbpoeSgv6qxw +q2AutYw3qmYfGEWMyDnzRINVwY/M+xnfZojpTdfYajjBBqXAc3mvU/ zJRbhXjuk5Sl7xeRRPkmKBLqqRyyWwf2l82Uh25yAtputKfmnmTkPsJGKNiNksmEW1pnlaa3ZrnWflTo pbwcAsx3PuR +nXzi3fV7LwniUbBP2hQbmh2CgfR5lvGawdMTdFOzFqEFq/EnGlnfhHdGLJ9djh/ yhXge7TiHXJJbQE9rmDeG8smA1jtjWhkfseXJaiOyeQCs4/ eCnIgjG6hvYiJig0TdXd8kwc1b8Jvd8l6dX8xaRdsBAgWr3molF5CYj4uRT8pj482onjHItuZwRCXNDs nl1s7Tml7H2eA +ytvvbZr/I+5qwr4wZBDDodAtgCdtFe3UvOZdBijhcDN3EbDiexyu6KRk1O0e9IMW+EPC+g+KrfxfHPp +fmo38wbOiGe9bxvDlxix1idwT/ym6FbQx3ssivzoe80VZpOI22juBddIzP4rO+ 706aKE33Svhb7iHG6jckJh7g0ANYTIf422n9USPmojJ9H9AnLyeJ01fkr4wjv44v3wmHeHZ6nvax6vKv dIGpzV3U00nzIHJuHP0q061h2avmowPzXciOH3UtSfnmE0g +keD/Bgo1mFeaSaO9qSY/vvV0DSIvLpSm/ NUbVOmNAijWUc5PJKHSGgpyrWEgs0zyhkaWQ5Ly23UMqjXMsf7bx1P29VhTHyhePkiQ7xVxs9Mrwi9nj szlN2ZF0H65zmWnqtjps7p +AxfN5ohFvpkIOwDijAP6z249mmvU7AfaZT7wlLKEh9428EWAyGC4CF9QJSYKr/YfjbxRNp+ cewmflL2oTYpDdBj57ExoKToMvOJmv4gaVotBctAPDaQRDDeMwqfWmawvA0LGOewI/ kcegxhFVoCr87gp8uoWzKBgYUL3yCuUnx9VVONScWNSQm9s5pL2EhsiG0YNbi3ZpxLtoGErlK9omRmBs bUdX553nH9505cLX9P7Whw39Cekw51ifMwBOnz1fxYBGZk2rZ9dsxFk1OXttlQSBfzPDkM5Bfg8yv71m vm9bWe /71bi8qWyS5wEhlNld3Hi7p8THqqxNQijPbwbH+ W8xotl5G2Yp5SxgHp4P2YwB3ybsmp3uq2u1RkuvgduY01nQlzfWDFM96LFs78O4b3txXWsmVA7Le3Xu7 OftdfFvUvE / yYSIL2R7arWntEyOBy6czfaIPE0GbMvuo3h9ewIDeRrOg3iTodOhm1aWcmB3zu8LAemBaltE73O3TAds 0AAakKik7hB8gN2aQp9lkIH9KuhonpC4eVgg2atbruK4UdeW7bqEI +Ol/DdC3360/AdYrwmhjiWvxCW4solI9Z8ptHojaHeS9RAueJrtIZUYMB5n8/ ChfMDTmTljUNOZgnn1jT53Uw870lck+ jvU6XNzTCiFeFotFNNGut9df43d2XIaQmfpAtJOTyvhpll0cJoiqQ/xX3pjOmqtcSeu6b4qG+/ QKbfyEkpwCsFnfO2XfGTedjTgWCfw1hdOUlfDpqypmao8jf0wfcWX0jrcVN0LTyUIjZT4V3LyygrXaT5 rS2kBcDGrkFUqjgiNqtABBNqBWR03ojy3qbPqLzBTN0clgue6PqImtHDN9pLNDIyGZpnIJiMIkpngf34 2G5in7vb99c6q86WA4nT7ZfPqKa7gF3DHp7hlC060CpaIBKOedVk6PUyjIg9dqhts 08309BL35mX/Uso9FWDiKwDvgn5CzIH21FlHly28lCap0WRml2lyukUe1L2gwoyJzqypj0VBbIE+ Ifwl0bPvGo44OybYHTdKBa9Nivo13dVvD6v2C2yWM5nfSoPC9ofUw9tL7b9uOqeZA9btGMwxuCogbjKO YYlJWKeu5YTvr9Q2f9DuCwJIZ0 /4R/5UxN6bsXar0LcKdz+9Q3RQ9linvqhPR6q667YvyJ38tJJQexZZMqGv+ZmZ9g1Am1AG+ CHAd5yuLYoMaPRTml4wrCxN15gMvCZ0aFwExinPe6neLBNHquaqkD4b0h52lG2gWl2v+ y12jpGwXjQSRFrzgodDbsTE6ob9d87C6tkuq4PvUd8B+EPsO0XiZY2s2+LSdY0+e/ 8SLW9E24Q2cBvkzzYlXhto0hsgq/iiip4aj04ftUHUH+Az7kp49A8ZxPz/K4i6o96E/ XadlCQrTSf4DnpRkMjvX0hiiHAxEM0bAHJ5aOKZIwnZp6os3lenI4itURch6l+CXxc8Q/D+ B60PUCKnuf4p5l2m3C5FMHQoklXdQb6hedKPkPixDw9ITukipzTJEHnCp+hv2i/ dx2Wq2FjeUkFJ1kuEavT9+ s40cervJl1EvriAmdeQadqSB9wtMPQWCrhijN5rfb70XZEIt5nUqdexPyuKB7F9wDoVv2F1Lm6gU4P3R czScBcnscenhE4vEgg6zMwrcNC7F +OomiOg8Y2KzpZ2n9lzgEZyh/ 9cb5n5rbcp345mDkYiZ8GZe8qckbAfrUDhyHdOZdl26m7vvPuoapsVG6qpYJQLGQNYZpyWOax8fSCUnw JhhJLQyEhL845cC5lrVIAnS7FJbsWaOZuHXUP8oHjtn4VC88f4 /vaxu2W5hT1/EWgqvNWkJm88yX2kAztqyi9nt4NhSF7OqVrZdOfteOEnGxWJwZ7qT/CgqwO2J5+ mT9h8z03zsGmy4o8P2xpQwirBdEiS5Q0CuxKpRacrivdy/TiDCe3lbr5a07te/ eIwPQdkgSh93Bdt3WkXbDKl3Gfiuz5gcOelYZA55sVFSDfwz4o7V2+10/T4ry/ jA6lvMlZeYp8sYerJTK5loo+ztB4BK6Nd23YZLtA8AGRFU/ uu0O2WxY7QHYgm6rXXRADdcv5BhA2vAP5z7yO4rVsiPmbtCu/095lk+rUCzV9TWMGO6xj3pHBhtJ+ Ux8C0C3h8YDin5DkJSovq0F0HDAZM924o6B98uC5wfkt4uzCOzs3hJm+TK5bsu4L/ iz6HUy2w0qgsqKQwtHZ5ASfoAbObWkeygushU7jvtTeClzkQ2+ iWmtlW2lcNGQTSIFHtgalElSAGtdGhlyee0sh41vBjeaJe913ur6HMMNKxSewlGrMqEd74UWfkNWvbwo P4u8VdV5UU8mlGbUPdYjX7a76OnNdem7GAijXkenOWcSV2YoVX / QqqAUKF0aEiaCNLqVKpYfzkkOcYAIK4zkrUeliclPd09IvdsyNC3yoBrSF7aclrP5HpuwOxa2X2SqTXM xngNVT2eAAFPdgDktvepioCW43aaylD9yrN9cqlR1tO6FHh5OTTgXMCYfGmdEX0efMBV7dmS5tX6Nxa sz4unnfJzNISlEkdF/kwt4APPMxmMxqHqriQ1hHnHXTOgILSOzi9okJoMoWkHbORGFn2HBoaTek+ 2ac7hndloqzeiufbKMkiopOBOu0Y1gL57xXjvBLK43ktgm0iy+qt0O2+YMaxi9fgiY+ ruJs9mti9bMSgaM5qc9686OufbKlVnnw2luGbFHLoGI7U7f+EHgaqc75/ Ybpq9QtSU0LuCLYonULLb5RTaqnSUO2LAAHZR7HxmqwDFwJMvIz/ ivp6GKuqjgSUVCilM0cbVxydtPoFkpSLAnUOTWUSLixJ7Ntcd2fc1m+ zD5atY5aZVcpRbq8JThaaOHDNItx4nXIkbumXe11FIcFzsXJ8Ux34fd7I2mqCt0d40uKmkVVa78j2oRB mPYn5Fq2Y64scV8fI5IywBokzOQS3yc9aD0kZVBvGQXKrsXsa6BvLjkzhymDBYUAok6ksly1 /A7MO2b8RwLhd9qOhjsqVmiNG8CwoVkzv9rVvlxRiD9aBqhvGCOQQ/MNR8da+lstlK9rH1d1/ 9GwyuA2sDk3uJP7pdP12TMqsShlCFvvnDJsvqrbW8n1Md+ sXktilSsYUZtUaYYAJAfZTDWMsvxcTcVW5nyN81MMmkIxrdoANmH/w6/ 24XVTcVJoco9R2X63l08Zudlac1wC/ AVt9VMpYyQQQKyN6HhbIdh4kIlm7CmLI69yVW2ye3yNLSiLCKscROJyS5rk0ZDdijXfkJ4+2JYJ/ pXe7fQgseC59YmqHSGZ63ALFQj4IkbFgK/ JQsvDftmrz6xUOkcPL6fftsmok5qDK6IWNftdOIK34X4amGhaSXDSSvnnL6N0OSUK+ 4HQhZpdbvMvDVl9eQYfdCPDuVbQAYeuhBp2eJKpv1KBuJUElpMYP18eZ5+W1vblkmb0MwfEUhyrR+ 7fsjR251lGQ2hb3dum3A0uM3Dtg1v2p4ARwKLmMO0JmA9iYY/AO2QSF7qT37dam54Ssmdodt+J+ wnhdIhDHee3kHMWAuH7+QJyTMlTr3Lgb46el8bUg34AyehwmuH9/zSFabko2tOTFfsO2Al/ e9kpZCEVCLGPMhIQZIPFSz76bkckQg0YxJ8SmdJITXllklw7NWZsGfedqSlOM61wEY2giwmoCrP4blRN mJo5W +jW0UGzBt2hk+rXZ7a/X7xxKJ1vj2D3etcR8we2OzClwhb4ItT718Aew2wjKO06Pbh31Q6ux/ zX5rLCX8bSkDrdZ5Hi0RcQYJAPJyiFHdTVBfTzFt+N0vPB7n4xa5eUa9fE0odg4S/ Mcb2ONubbJNJDObhHfFcvzW0ZYnQsNIZnFSzUhcvNkxS5zMe8s01TC6LzNnCwSEEWE9xI7cuIslDTCj9 UaqGPUhdfLIlHpfpwTshxaUF7DLkYnFCP26HVUqkxCgfS1wxKyPpda5x0uzT4B0g6mv6C +jd5ff9fRi0z8hi7Nlg6mt8q2cMeFk8ps6ZVL5sGuFWKIH95BsdvT3oWYYnj8bkGlIRuJ+ d3D81OknAcZTl1TMN1ILvqs6/oGMWqHGnX3iLoN7pm7TWigJp++ aeOOc3K0mwpTWFBSOiVCxmUpM9hd6rlbs0AajfLQ54OTCJyB2xf3HnSnJDnn4uNLHkzmdyyy70rLWNEY bvpv4h8HRMoYedz +67IcZONtn28ok7etVt28oMBQ4duZ19E2HkIYt4gPVFXZgDqwXA3r+MuZuaUUCWe2Y6PPFrE6DJ0D0/ JR8JSv9X1kMDophJvgroKsYi4NoIMMwV5nA2dfszeAZkdsT4RLqhNBTYfZN2UDqaThPaWYGxDv2TjisH pq7GkvoqHTkOxtoPoy5kBkHPkFjYBSNtNKl6mx7qGeq676pwpxd833q6jD3vRA7k6bG64diB6cTUnZG4 uFcxFFKsDk EHaAwXADBmbeQVJLHklQNhxbnxbaXNwy+W5srP5pMTuPHE5zUQVovldtZQ261FJ/ meLNp7mIzFrsEdwje10SgReuUFJ1MTrD1bW7PdB0uqT60xyd8kDl8uRLR77ev+CAxxtzuU/ cTRA5lgloIDwvyonsc316aThyjovf02R9p9l12H/0FTX838+1kiDn3n7CUK0QaKqVa+L+ 7Ov3OYCljNXGxAFh7pB7r1orYH0ry1eRx93ExKldbup2xqi8Hg/f+1H8dOj147KwOb/ 1N2Wa47OYFxGbZjizefNXykvldbJXMkcHEpy9PaskMrzebl+ IugGDiRsqQ89SA0qrtoMbYj7FSJmRmaBcqP01zVGxyFbXXulQkyyAb8flESiUhG+ CZNNQCOZaroMPJXUNfvCe7Edc9d1h4c2q39w4mahmoY43VEtiJ918g5kroOrVcR8a7GeV+ hnqDrtaFgPJVozTxilmtiCKD1C3PVJvuopWB9GxV6BYj6pIuUWH1wDZykbiB5ehBnTpsx5ueFUxyPDVR LkVJpwqqBweATgkDJ /eUcuNHjQ7ksbWZMMFamx6K8nNk86Pt81z3r5B4ajA/R9ba6v/ AISJqjkowLeWZGRIKKVXKGQCWwzEeNW5f8sajaWmzodHMBs0GMLpQDCVZZVB3gTIqZCi78XY9mjNRMgE zuAJ / lM7HRKZEJSRmNXvUv6BYwz3N2nBcRV48sFJdTr5mVZVANBMqakdFhzTUly6xlj8DysRtsUE6086Ya6w8 wr51iKd9jBgjjOtEBrh +RQG+Y4+FHJOS3kGHhp6PnuUEeBqFb/ l2UQmRrnGDOiejS7xtTK5AdxFuqlyWN4fdBwXerI8LzrBaUBHmfIkYN3l4bAkCdxbqlqMnciQl6K2oRc kFgDlMA /MFOASoqOb+u/y4wfogYijfa1Lvq/ c0bmAZexoW0YaLYfUFbpk0LYruVHEqzSrfSQOsKmow5zTvptHVyQXK0ISOahSJYTttkQXWwMnJXUYObl doJIO /yzp5rxAVOcZcH63SQT33XzFllpz6PQidOFW2jTvM1w5SUfNzjwSlLf7oLkdXRcbpn3G5i8upz8Yfby0 +/KffjwcCvXPnzRIICiUXRPWp92DCfGTGlMIPRULti/ vlzaHq8CtmHn9xpKFm2FCDfPnTcCCY9yBSXKhk01YPVOgHeOWyfH7mpgerFs6N+ NFyYVxneAMAUD2tZgsDFVmSSmSyiIwk7fLK1ltoFrW4jQM9djNTDOwF8dPfncw/DW/9miC6U5ki0Xv3+ krl6Oaudw7txA1pG2x2RC6XVqtkhUpxN9GUUPnYY8QzZilqueR/KoYlhuJY/ SfmwQNQmHVD8ydYugApKDwobghI1UbVsscPOFfD5Fztfoha7ie2cjBJHb9zbkIRsO4VuS+ QuAQtH0YFhEJIjK0c8YLZPHDcyfLZni1D5pdw88l+O/ lcyvJYask426866736p89EnN4pUG7NWrPRrsrAmHHWmkZKihlYUskRj2BgrjwMsW7uYTsvEHKjwYCh+ 3OhSOwntrIYY15ck5KQC7BUCIrB86U9ruzKFVzoWpYqnHUY8Wqjldo/ TBLtueAMrvQ8CON6KaaFkoSwHUfjE5cRTEDJjn2Zx1xvnk+u+6uuivuGlul/m/ h0EnRMPsGzZf5BoCBvPtoDoGUyWSY8cFDCGDlU5YBKvntAsCnXqVssRggBPTVmhUqHtvMd3eaUaHKKld VMqHsFdGeNLxyGISZvnPVNF2DyTd21 +4okEUbbLgzALGEus9e0ynRr0MNHNMqr7u1pDDDQ4jfD7l+ 5711mW8FG5uUnanyflrjv1kAqkPs9w5t2nGYomGtzyDnmZVDayGMLoddBsDX5KkU0r3Y6U9B8c781+ KZQOrmTAQjSYSStkFyBPlzSXgeTTFAtRIVUvf3bzqnUbZxmwqmLQLP8cB/ F4mFFcDIiGLpiMApbknHhNVfp8fZTw8f8D+UCI1XaTNWdrhM0yCAZTt4OrpIKBRCvj4ZAoHWpkQM/ KOmjFQinbWWlur/AC/eZ8ap5jbko4/wdtlZ3/4fvjDTrLw/Be7noSqWtL2cNV+LqRRIG7MAf+ TXl2vNQWnDhrP/NYuC9sC0j/EVQYUY4o6OvvYKFgb3OLonw6QktgCJCwVRyTk7mXHP+ 4V5yNjWO0llUUEaNXKvVKWFYbKLvrZYh7FLApdnQ+19Iz/qVeAT57K/ zsa8TqkHFbk6WT5lPGG6XX4IyBWf7SthgJJ90+N5Xf789/I1Zu36LoM52s+arBWDu3Nga2w/JO99VkJO /yAR2wHTKGvfIjq3hWutjoSTKML4hr6PWSLTpoq+cfhh38eNFss54wZQRMC0ifmLB2FbTojD+ IFCFqNhV7r+Llt6qcjDxL23vKJHCIGk9EFBRGsSy4RBVBlt8ISVah2f+HRx77GP6Rl9j3KP++ XoYZrvCy2l1tX0bx/Vr4V1lvbBPNyAKq+lqT6Lk87h1g4Wm29tMp0npd9g9ao7tS/ p9K2G2YIYehgptdKSgBlwlrtmjeng3bwDxviBq8QS56uTBJY0HLiuBjZN8yHX5A4JF/Ovn/ pSZDuh3sQLKtQduhDy3YFscJPOFYXyitIGsyPQUAg1X+13UAYPWGcL5PYUF0yssIWR/ JK2KRCEvN0Jjye//A+8++5KqkArfY9f6tmbxpMBaa8+Tp4KT6Ti/XoPzyaWj/P5Uf1// LMFhCyth9w5aFawJXs97Bxn6/yoppIORnjkEjnHAODweoOaAbsnfR/1bpYCeOASOCCOe/ wdNb9UEuV7nIVR6h1I59Jfp/TcpJEobGT39YpiQ/z+HNLgde/ oxEoOyyZ8e6z603Bd0XDtQpSniYv1c3KHi3XYsoy32CDdYoJKjdv85BNfNO0bpTEKG33E3a03usRuBXn jt02oGKsSsf +k2JgF20Wkkvfr0E9Xrq+w9h2cuRbZKGySHhhbz6d618/xE9mrfW+ JEQDuQmc96glnR3sLhuPBsYhSYje4FGlmSgpHlgYhrSuOWPZ3RdKT/UY4/ GCsEW92AGUnLT2soc24P3M6wxZFMZ0GXr6vh96xrtP72mEsmeQSgQ9CvltV8iLj/ CbbSuzREdhCJ5y1i5x4HA6Ofl1SOcZEIJdLBkgRDvTTvpACGZ2tNvqKjX2QjeG1oEZpgzVS20KWV+ c459PT+CFg5RkEoRV1HHiNLT/lDGqFnic1qFKQvIEdp2uls22+jtpftZ/xiE01U1fwAvrA6Lku9L+/ 6WtoVMwryN4hwOCY5KKLrX2vgy+F9LwZjF4mI1z3cfcB9vc9QeyJoN1c6uJRVy92FUkQWfmKDwbOJjBF +VlvFeoGlN3ROGrHd9xQEgOk4i4WU9LWaAQpSURENRWDIdrFHfs+ L7sbMuwbgV6IYTjz2eZZIzhyNDFOzBBtudlTAIQH2a4sXibmaxXM+ rXfq5Aix0TgY7h98tG2j8O956zTg9L/g7Jmb5imk5/98YvjWeGVVCgCBQbIR44x9NDyybV8xXD2hb/ eARCNDgOuW1b791Q4XulAavIYV2m4ZQcseH06HVqrRpUWfPeoYxNoyJDY/m+ mIKOsByT5oAaVPWLVkxFFUwGpb1DCAlPu8Y3eOEHY9AYkl7li3l0B/MqV0MctpwRRwFW0XMZ+ dp654TBq6UFhLAZUgDyPraXbNxetI8EQg3H7paifd9g1/l0meWFiLyX1fA4EE+9Siys0L/ 5PX0oESLhBJt1NMQklhLxeCpU3ompBgyVqEvGvt3IbdxRck+ 4qYSruFF0wns1emyROBzm5eRdHPUyuGE8q2FsX7USxLEwgtuADsRVaH8NhcpZqT1CucMlW8BmjPWw6Y0 wfoqEI5M7jtGADwodu /DwUFwR71ZP10sdkpIEo5+ hr3AL92lnxNqcdorGCA5Fgc2LIqjA2h1eRkPh7kXvXMZpj2557lYOKWIOvIhC9QEs1SInaLorkLYpcGy DZHJJNMrKmpyMicdDWAebPeBBWogGU7sAG2sJL4xdHzzUHkZpXDt /X6XqbTJnjt3MSmyVvz1LeYu4jw6gpbIkIHGBFwqgVkJJg0Uq2WEuCwvBKetkIYCC7UJd2FF+ 5f8909H78azazgwvEBdbM2Ve53/ r8wF7tW5X2z1gioClTHWHZt2lXQOoCbiFYD0XpBegfLW9NYZCdbqoUFiHwwsaBH9IjgHJPdetgQv0rlX zjeVyfZhJnz / mxZbcVnYWBaVNvaypEsDGmOMJqQIEIhF2sP4yItpMrhSdUwVMxxYbAc4vufQnUHYZdLjRMQKGykDMZhV ngUtYBmxKYgb5hwtO20JhDF /N8RgCDz6q0xq4k35T9+NeojYN8a/Re3SPUb78AoqcI+ MHQCgjWMOgEeVyCfioCVY0Qsqst0X5kVf5YwLLxdxCKINp5FemaEXI7SgaO2K/ fwsaD0OcyBC3Bs8MrSdhQSjlJQ8yJBpTAhBT4GcswzV4MXC+ TpwRckez7CT49Gd8waeW5vIYYD8YwG4uVTYuJm4OFIRJefaWMBwskfh3xkei+qWt/ JIXQxi6wv4vIdlab0Nl8eml/ 15j31tX3E7lCqvESYWO19sST0DcYVGDrYO8Xp4eBW7xKEwNzSMuT3DCjL7Q0ttcElsk4yOZgKfXaCTqI lns9HhGsPu /Jg4St4w8op0RgX5Z8aUwTV2x9fyfz1RsTa0zZjv4pqKbyqUTTm37zGn+ UjbK6ZcuwJO43IY436JAC6k6ednpDAHZ9ZYcDaJKwBgwR15HeLte2jp2389V/aSBb7tLxFaquG9lD2/ HX57s/M5rc0ZrwmilaIY3yUgXEbarx3tdyYxM0cporCQzkZKFH+BHwsh2PIM4TnRVp/ eTVa7BQH0e5jen4wwoOuFsfK8daorAjQr/dlmk6EFQGb9foHrzJS1rmy0AoKMrJTAofhz7+8R+ CreSH5dufv8ujgW5sjoUntUUO9lPLkFXM5nxHDZUK5ait11H0o+Gen6+ 42m6gMVoNNJ9bnCJsSWx5eMRj4uNQKLawCBZ0bJFnxsifDPqUcWVaWgjcZK557ryp6V597cVy3hcklZ1 KyX5ho3vzeouOe8sZs /8KJGyYaciO6YOBYO8/X3aeKfZB3akdP8ok/ S7rWGcfuqTy0i9rbf6AdQTbDMG1ttwl5hwZsPLksjWv5VOA1dk9Fiah9pwYCNkz4WUQcyxMOdQhQTe0j wPf8w0HHDqHk5YKuuT2LPSfuJhUON55lXLjEIzAgLlXvUVQnR2ceZoJ3sfZsU8IrSVZrpe7FQbrODD9r ltld /MDOuzdsjBnLzJ5M8U6YUfmc4mCJdkZq3D/ 7V7hzxjF6DrSlB1IZtUUmmv3ynQiJr8RwktBDigZNlmQk2ixJAtwR6nPp2R+ zqkkepaOlDFMksO2mCmlUA7uNjohlXrGu5weB3bGjQ/ aru6eg0GaAQ3rFefurcQrqZTgNyU09g0uRq24g6Vv+WNZIzdQR/NwzRR07vhDLUOQfzfMErCV3PUt/ G5yE4dk38apgk9Hbajz1kea8MfaIiqZGBk8AGiYHNClwTIF5PkN798l/ Nxk0QDnSU6BC8kkNljO0zoxazQiQcnUB9bhmj8tRNre6wyDVqTvDUDHEJdmTgFeBFr4x47atd3dLfXBL Ivry0 /6SjB8t8CGgTXCd6YS5VJGGCJCVsj3rkzYRyb365NRWy2f4uvMHgroaGWG5MvphZgkdJ3y3G+ eLdGx3s8J4jAcbS9dy3t1ucF1xQ5IF4j0kom75ezoRlyrL4uwPBcwclSEaPXzgfk5dEdmDrZ8A4lgq8L 4hplra5 +a4nksTbn/CH8bzaXtqR0K+4kXIOpVXadfqczIhhA9k0EfKaYLJRPKlRh+GdrYa+ Mj73ekGWRZsv8oGMoDb/wgfQIXU0oTt3FjTrwwBwhnJ3sBScLQq2mm+Tqk2BZdTADjS0wO0/ H0CrG3zgpIxxKTLMHWYS5SRUfffkr+e/xeq3XacY8cVgGizjC1cb/urVW12/ 5A6eEGcIWVM91GJvDoWoQCXl0zQMLqKJnu39t0viuR5Ia5Ec2KnDCzSHrmQLdv5+ 7sA6jwdCjj4bAaXeIgnIF6ikf6wUXRQyxFDWAx4hA7yF40dItz0AFQI/ C67niB1Ged8CfYcIf9mscMaD08TebdSqtqIrZrol+lcZYa90oG3EVuqdptf+ 2kBEcHxlDtTWaksWcaY2ufhL6Ma3A0HnR7eyPv1b/KacyrCJIzGXlbob/ wGqyfuQHzCZqGrz4O4sxc6xaoiwx4S6p8g4xKa8UhnjXIt96a6ZHI9lZ98J6H5josTkZJ2Iuj+/3vTb/ kdv38wHelSs9iWieFlm0KKm6e+ 5I9l49cnFrnXjuoeyeecwyma05e9sDBYbTd2tlwDsHNkhMQU4blahyHwHqkcFqkO5s0pb4W1jMCslIzu y /1a5YEQwcfz9VUn94MczG7gi4Jx2iTI+0XJfTYtmIFXQhIDx3YSXmSMrNBuZOjmE/ 6R0PpifWrp3nhBeyjS120WN6ocUp9f8NSTfMCWFWl5bDMISHXrzrkde0NKDikc4dvFnL3A+ V1cRmUWbUzcuG9a84nrd7usBybt6LG5lrnm0wuvv94tLI2AKQGGSC7HdxJquKm1RLm591Y4u/ Hwxaj8yK2G17LpPa++cFnfTtpHRh7t8g2EIPJxpGV+ RDF2ht0uIgX9e0Oc896b6Kqyobfzl0R9f6DYBdM5uOPTak2AHYjVgjPZIXY/vVNZ/iHwFpmoiPUZb/ FeI5l8nUp1sVP4qZtBSUrJ5uctpkzP3IHOacHgGa7nsgxszA/UbSr7WZCu+Rahat/ izAgrpeV61YCVZtYPAa2n7MyrRAP+ rDLaHymBNXbk1zhJGOM31l9vnxucnkcqJfhdyHy1N0TTO8U7v5ZFGTQGOYtbDWoCFYC67kNJYTNZKfMU BM8WTG2L3ZFHcO9i + jem7zT158U5ZK2BGOluxoqMZ8GtrdfXkXh0gPo2Jt5CaLt6d0JWYM1yDsa67wC4qjfqybUgASS54wNrR jlK8SjspGzcJ1RYXY873eflUIo9wG6Srp1Z2hd + ggrGsb7bPtWRqaeXQMAZNKkzOwL1dJRhDqqIj9VJ2eO6ik36Zf7l6gGn5NIyc0bnge1bzjLo2Ec3wmgJ Qwsxw1Fsq4sZccfrwukSZa5fYnmjgPxUMEfjFRMitDjAuaV7hhf4aoRMbWJkBgdq3z5W6mc50RAJSKYf eXTMFqOIMt517jGKLU4DaXkcoxEChw29bAF1rK2d /f9x1+64cW5fgX9RwZbqpg77QD66D+kmR3C0PEpqc4P+U5L9p1H+ 3PP7tsTdtEf1NXO49SohdeWXRGR4hB8uOAzQSuXRrS88qtbL2KYvFmah0fv/0o5Zt4faUGARvpk0+ YgU5d5NEXCzWz8NcblbuzlRbEjJYZs/N+ Su3jDw3pwr2OTwL5DgwivhJ3A9q0MHCFMv1QQM7Jn7ZvASb8cxo3htGtxlVCymGMigSGdV/ k939UNUr8H7xQFIsZgTk44RkT2Vgd7OSOaHOXOESjQXTpSlYjIkvqTxFE9ZF1cXZ/TW6/ WYgO6OIfyxhLo8lZdA3peCaszb0gPG3m23Ce16R98v1u/rmNy9TcS/1S/Ooq1FgoVmnyKDJ7Yux4Dw+ hc4rzZXwTtWML67kpcEOViYypTzVsSHgxldYy+ bRkmxtxQlpTwpVcLuHsPs9oSCclbgk0t1fPj1GsPOqWqAGRY0ndRnKbEg82yoS4o0TQ4aL5+ dMCpztrO0OhKICVz4L9+ Od7ZDjifDCotcZpii7rbBRrK2zYPlopJylChZDEVHK26ZnaBusJs3QMATmHDynOKwW5S7phXbV7DpmPY 1oahnSv3hV6aJJ5VUa8YIwULg69jnOb3soookpi0k8YbrnUJCi0IPQn5x15O5xBfHK7GGlql9yqrnoaK b9TcHpx7dJneV1at4SrwfW3zbQQVFPGgVvpyyOAuPjj +LA7ojyTA3NwqRDn0gW+Z2O76B6NnYy0remmnI6gcjg/gDop0OoiS+ gLIoEUhqAXN0SZsoll8zrEhH1F5BRJJt4mAWsyNa9S2f6WkYf+ EE88zXjQicDh1HKzgbmbmt7hVYOvC7ZoliEj8TbFcYH2xmYJGRN+ubD963AkX0rM6bjH1I+ 0xjqiG7d9hjowKzUgjhncFflGxoBfTnmEa4ceooeYiJHN9rRoh9vVn2GF/auP9Xz8m/ cAAfqc70afgG5kmm6hWuj+m+ gvnQlYjViDf1R3AuOOS8BnV0CigfSmouqToAS04sZFljL7qlsdPIIugZA3hmMHZNVDcZgmooToRaG7FF bjUbm /kxUEQWQj5n64H0PTtxcdUM6JYmHfVBPdAFRSC09xUOOMDBBUMBf5PvVtVWr3c/TFi6qEFrHbrts/ vfcrYB2NuQRj6K8pBOBIIVieY+6rXoBhMmXJOFOt0i+ GqzDDy4iYngiti3i1HG5JMPrhSqTqnIMnFGchT2nDZ3efyfNnyalTFjFHgheINYyd106giNs14s55Zfp ijhMSebTANPmPG01QyW9F /iccplAXV7K3AlPtciMMU4vGiD8in9ximqJUIeVJ1nHsGVCdH3mRkV9Vs4FuT5bqeI5pW3tI8nihoWNd +PfEV/ qxBNtSwT7uRIeFaGms8ZlxiuyxTIG7MhJsLcINhNPdZDfcOPEx9Tj1F8jJv4ZEmDhFRBkcQgUnwwpTt9 C8cV3si +YBNbvFezNHBNYOiyuyCLzrmMyywyXFvmJZY/HUl82FaWzIMi1tk+Y6H9Ha54uwowr6eL+ AEq4SSf256SOORLG0C2ixHXfSWZOCj6XgwNzeYZokHOTiZfv622RyVDKldaNw8tnlTXIX+Co7r0rbyr+ tZ4Xt3YEc+CudeIU8Pp0rQcK/ jODnPmz4XRQhQ4c4TAgPoEJRNtY7AT6F8EwpQOGW7pN9vqLDSmW4YXvk9w7UVYrHWUcnafG/ t9O3xBU1wx3uYY3o5VZRFcgTo1Zp9fc9bvFRlKuKdT5zTbD5jMJDtFkFsjo7KvilGNFeWOcgVNf1WSRm PnmfkWCRUiZd2e3xOJd6yZfvob /RTB5h3n3hZ8Sde03Ps6u9keSIeHKFxdRr3z60rtuKom6dbiSTXk/ zmzEQoUOSlSlC5eLbCq7jt33f7qsagHW2eHXpJM4ZfmwMjK1MTLcDgOBxAiiLmkwYgC6TbpsR0V46Ppd tzSJPxyGoWloqUqusuFb7cHj085emnmegT +4aGc/gWqIA31aF8J2pFC4+9D09nRPXeH/2pU3u6j7q31nezu7DCuDbsh+ e2zTsrhLJgUhuP79c1wFdaE6k76wgxHVpqLqntws+zBm+ lYC4UiOteDouW5Mk3c5ypEFwHJvNVo1WvHLlfwRqoGuCHMK5mOP5uRM+dmn8+MEmnZod4gJJK2S+ EVdXc4d25LOeGFIuj0P8xJ01rx63lwqdVYjgl+Jy58j8z47lXk5bXms8ivHK2Zk2UFzrZVaEtbnQGqY/ jZuZxk9dxcDLibdAzjuMxszRXC+N2CtxZqMQH4ewSQ5soKXfSqWbrw798OfzwGagNJh0bw6ywqrPZ/ YtlN10xMc+25D2ExlLjiCrZoW4cJgkgHD2aW1l+okd0C21fNZZzC4q6RLS2wOdWiet6tS4Uw+ xQyJmpQuMhwNgi3sWsE1rhGPN8Z6GxoLvfptQCYQAjER8x9yugEJxxuVsc8jyKyFw332LdTByltQg8/ xP8LmMN8wBpmryZ17rmS5B89dtQ40pJXs5DJilUmlrfKCLPIpJiHRI8bRVh2tm1K/ YnCFrIgdc5jxtbj5ff2Mmlyk3qyn5sklbFfExffY/IZ56PXZRLWLphJ+Gp9KTotYj0dFLSEGaq+ j12u2s2q4+g0T0VkaHytHlpKwCq3rYUaOiiahk9G81FTsG8phInvGT0mBo/ bgeX0dzAw8g0j6xtDjnwCw8fpBFa9XMpDfo23YbWUhsHcDfBBy3sE6QOGdRgYYlWyqhmxScTHS4NzLud 2vxeqk0dRaQvIuMFA81UDyzUYWaF7uG3Wpa4ujGv9JjqsUWYXYEv5FbhRdDXUhV8quQ /Xn45/UHoJ2IEC/4htTnjL0SY7xX8bFeTUupEerSAlAoIpfAylFP4yuZtoOlK20loZOie+D+zZ8PdC+ RyTob4yl3xbl55G5MyfcsyJ3D0l14joZKqFPuDEfvbiMRCgWP7o9inX35FTzR6XzXIxXv/t2v7h6oc+ F6/8Aq51X0dr5zfPNuYqXWdzEHJh4fM4b3uSoLy8imiXWKPqiqhNUucQSehx8Avf+ NVdBBSrJx76X3h6nuoa20iGpnSd1gP3n98SIcK9UnX9Tkt6FfsKTMf8MUX8G5atFne6pXpT7ZhyUEV5A 7oCnzxl4 +VOBwNjFiymdFZidFaVGwcY66wAXuS3aZg/ 3GKix286Xyo6Tg0PGCDvlinDUh6wpbxjtb6l7yogcCgSuarvqRTQK7qlS52I/8zZDQKT4ZGvMl81/jX+ xDrHg57++cKGJ3m8XoGnD9OWaTvFH8OtgEKJbUd6FuuBJ2aJj2fzr/ n4x2jDTcATKRRi0WIgqSnxV1AGg8FehHqsnJs7WA+ksBJese7wq6N5MmzIGf/ HderF7qnmQTmQM5FiYMSslouNvf0x4oUn87atf03G6eMNFef2ChWvymJo+ PsorYPMjQoo3s4SbbLC5JQw78Kf0gppqVlBs2Tjs5BlUk37P3I/aK8V+NzkvUfYQtSxoatDmsE1Gtoy6 +IHO6jmAhb6fgH66svEpTxTMrAP3nja4LhQKZpV/ 4Lqa8JvwhQxU45yglOuX5Tm7nxtl6PKzXzsZcgbOzqCKwgRw6ZqNZVxzoj/S+H/h/ mFQQGkujLgOj9Q8btRHX4mYrVuu9qrQygDVGW9RGSrfCnzU1MytYiP5vfLmgYVLQahl7dh7cHy3U7TAy oy8MOwVkMu9hh54TZtiYVHlamf8jYSjru8Pi87a /FLTfE+y3jbH2zFUYoZ/YeiRHuggE8MLQRNocpCZHK5HynL+kO2piuTWOVtPet+ Wz2Omqs9IpoxNG9tc34nkD5Zl4JehfRS+GtDvvhOfNJRP33VieDEeKAePhtPEOSfYCCY7lay+ nRd8CiLsuq4amkLN02D7CtjgKZQCoJ6j1RXptODLFeqMopcP7Xcwgw/VPD/ sx4B905Q2H9QowWB5orxrUXEllGnukir5WBeec8UH85y5CAihlHdDi9iF2NPX0P+yzWssQFzWMlN/ BGWmjXK/ORwx3cBslpeD3XRmQm7iwvLAa9QRQ2PzJ/ bJLhds2bbU9O0GGGztOpk64ra9kN18s8ZPL4oTLe0o8oV6yRpjc0PzruvYb7zv4dVcV3FsLspfnsnw8w y9enMx9la5dKke48i +VXsLDionH8jlzbO9tpkY1yrGC+/dit7LuFUkmhVwMpDuF4iVo0qbEpkXLUZVYz/ MLpOvvGz0JkEgzDPPSpG7c0vYiYPcUpvUD1Nkl7ixUgp1u5igRiYTOFZMZrZ02HVg0eyC+ qqttyMukix445HX6RplBoxGDaOMlxrHP8zPAMoQ6PpkmZKPNu+ AojMADjv3umbt39UnohKmN2cErICWGsUqLm/ B6GctaBgU5z0CjPiTvUMdZuO7hMyAz3g4O1aB31vFe91pl+ 5aVDqFGbHbya6LGkhznFbGfwLYMpiyokVP3KqswE1YmKqJs+ 92pOj9TQygyi4QdqzpWGLXBNQ4bYgvsrxLkWfcF2ZoPQiH9fcJGF6lkZrapBNz5G/YEsvJX5ekUn+ 5lmaliFbRJ0NfL3nLihKis456IU6XDaXpC81p4d8sSX3fT4H5dEuccPeSjIPSDzcAwdBOa6HbC4fdYMg JP5wympcWhDeXfolMVZpTojNCMRKeqUwbKnAJkV705oawnmYAJJqaUCv6xKDwVGPLbvgM94wqcpsitCW ApwuA9Gq2t3o3nwGxpmd73Rn40NtikhT4yKn8dcbSjFp0482JKVKcqF9cIYZ7Z3sFrZw4 xfHUqyAcwYaPPxiobXOlE0I4sjAE5GJDvUDwGEkvuh0KLmHoT4a9wXzULmrPxXMC+4ZaUHiNKt/ CtbKB8UdGuT1X67Dc4Fewcmaiuk4JMOuPBKQUE+WDX1UowV5Mv6U+0vV/ Wx450gN2T6N2cGwGBdFBWgKw4hraMEQWoOWhovJfOlcJBUfeS0bM0lK7f08Us0aM/jES11odRYNt5t3e /Lr/UVewdqeA7BxZ3504CfadBVFG6dvpipF4GIJoTwNhLajQfAC2Cr3ADhEH5dEug0v+ Ign9yq3RqDYYe8gjJ5sj2RDlgjO7fjVExZ1EwKUZVMnnwwpzAxYOAn8YpWfPsq8Tg2vMaC9cB8bhgwvb Cp1elJoU0vwaDdDKt9HrvGpgWrTKibQ /CHzkCL66F1zNJpWim722fHHul1yVFNpCMcNZwuKUnqSrGBEO9ao1Wy65T1P1dduzhtwLJP4Yksod+ jG3K4WyADiiomf+ytiTewDUqmgyzBetTAqnVIGPRSu1aHQPubmty1bb3JTLRYYJcGzz9/ kqV37RfODgynAmPiLgMv6CjJhnqbDMlWUnenOuvuFZu1AuVWXpmxzOXixtBLK2ov9XLBRA7hIwPs2zlc ZyskMrN /qcNHHkYHQanr+ypWMlodx8liaT+ 0YIzfEqAPX1Bf2Ts4sv90DrDFbJrpFkae973gkv7hezCtEzhOdS4m2TwSz8rga5fH/L33dOJUwy/BFp+ nvp+pW5+fTdI5GvzyZcC047uxKDH2FnrakKiciPd1RAtVhnjy4zmt+ 1LxwrehJOszVPPrcGQHceimFznedzEmMQYqMZlbAoM0WqaD/ b3VopfdABAru7Q42RsHmRcWlGjiYVaguHom7rP34hOndcEirRxlqVvRmwaHEQDoffomTfJDJvVPNlQ8w 7BD9uf06d +c3BYT8Wxbx2n3lhuz8h7/ BdAVV8jIBnUhGY3iGmcybd1aGZIiLN2jaBpVNJU2qH6ZLZ5vQeCcpy7x2l5dFQug/ dJVERgNfQ28LMdPTGMjAyKQDBga1wcsOltKXTsf3hgiibsjENOVU3pXBHSE0ETECbpEdTvtkmy446Bi6 uaMGnXFztBJOEqKPgZIUjnGXPcFaiN3EcQNj7uid5nk /gsLrVyt1/PZ+ jtxttspnxZ1XYJMWdtG94fXmmKNrdwUxFMq9B3VPaApue4MYmrSLqK8LFSWoQ0wBnkZua5GxZESeNMyq 8zzelYQ1a9hp863khoZKB /uuIA4F2TIRUvj9SuNgBT4HwWHQiPPQvvD8NZpa6UCacanSARuirQBv3PpR25T1GDNbHhwHmHvD7VM/ df/qxbqopbqvP7b/ S5QMAX1IGsGiCLTOu9NTpWG0YDlhMrreDyO3QLPUsgq90WWQ4Ft2MM3LVrz7TDcx2A3NRneyNcAXnAWg LT4W6wI96w + gghD6DTpTeXDGoQ9mRFlqzXVejevtdWafYy9MAu5MKLjEH5skP6yY49hxYZ6YYzfvU3qekBn6rl11SVu 2evp /Wvy/WHrVeer89UqqBamecEs74pPtU0MWKbW6sp4YLkaYNtgX4c8VZsZjZhjY+ YXXH9tCUICIuxfFoUxRHGfi+DOyAakKkVKovJtUefQPRVjW0YWEf8qE+Fd4wFE0HX4vCNhO2f+ FrjAUNjrUjFQL0YKDluP7U8k0s55761+ AutU9Vu02Yan5Hd7ioLAFUylLUBcuJj3ieXKDszTreQHEaFdSRXV7q5uA1ukrhe0S62Mz6IzAxKKnZZQ lHT7ljBa0pa +P/HBiK3Eyq/cEyZ7LDzVX7SRTEDyUkrB+C7HzzdCIomcC2efldRhSCvdqz90sHBlzdqus+ B4HctOGHwvIJDBqYWxHYeR2MCVUf0bYiJPcO9DCWqbR92HVoYCJ0RBANvJAisyYJZG+DjSEqQ3P/ STfutNq+73uw940q+u3U/WlyS3Icir4tT5/ k4UcxBbwjnoLw0ZDA0dqqYu6StmscKplXwnQPufh8FLREgbbI1OFVwXjCh67FXUhISMMmVDz4MbgKg5v g9TF5FPH +JRk6eA6xZWNmfO21mYNVFATlzmreV7c4MxmodTXlOSsY28y8n76E2GleyuCk137/Tx566GyXfLFO+ RijBzppzooHnmxel0P1hjssGW1D7zj9XEgy1Qit1ymJNv3XIXZStvaEfp1D707hibBVYg5stRNsaCYmj bNoQpmkGZyBAc2CTVG6Xi8WdHIOubBix +4eSiRnJYSAjcoXJGRi+nnfe/yd4orHdJJY8T8+42H76wgu33qniv92hWbCE+ lLOge5FIsjOxKcHA0WGPXpNRodveS/ XU1qmYRKdue6nEIbAPKvaLRBl7Wih4h1AQQi8tkIXLzuochPtTRVtXc8NlIK5ECqrRarGJZD0Lt8lP4L M2qiX07pHm8u1jF02Q06QEUfHM3VPN +qWS55zl12NVlKo4UmetGS/ O91JvvymwNQDZL6SasSrhlHcWqrFQKbOwXPyTrcixUzhxdzx8Pt5kvba58GXEFh2ogGncKrmy2aaQNXG BhDKJelXVbnmOuegAsrBIPOGUgSz5SUtLvMjYb9IRfWdE24f8qT +TaWl/91g2A22b1f4lag3/FUXwY0QxBZm+ VdmILYSZKSnuI3MtWWuaH9Queghzh7FmdGYdK1YLlYFDnDynxKKfzCoczkFCOmE1m2h8D4loOghB/ Ih6FENH6HNxRAA9wMNLTpqysTrzcFrLldzDOrswpQGHRpIRRxaqKtcqWEO+ jg0vfXU7kpYBset82N96cG8+3ne/rtyrXalQshxd1fpFa/ TlAtWLrKtkQmJITS8RUgrWPEkjYNZCHsNBTURBXiHXnvWHXp5/ IWusM5dcnjuaBiWxwntXYVGIIg8VFaVm3UdLEyh3HBnMml2mdjb4pESY1BSG0QMIHXH1waxMrwLgDqxB foVaSizee3e +zas+l/6/g3vSoHnoDpqr7/ YiYn3KBRtHEjC40oJMXaZRDjYTkZsTI9zAguUH0ShtYkp2ZnY7krs1CHq7WT/ urMK4mWVhdZdxzhEHVvExDayH2y4yHN6htU7oBjA7xnnDH8MZ5baFjzt5EFdwJofJVKfML/ IkksyivexeefWlhxiQinz9Qfa3rGMMAx8LT9dc2KAqLLWsuzumZ7/Fr/AIYaVm+w3scGtuG/3/ aP9JuU84Zv23D7RUXVCJp8rrkAiQSBTOtIHtld1Sq/ 6D0Zft7fwGyvfLnrHN9xZId44mbfjNCKiOEPzLKTXyVs2S7S+Ffk3p8hS69+NsopQfeBJK4HnQlvvReO +SArkkAqK+pkNat0hkbjZpLbzSjXspHaEtCQ9ZU1w2wksKU3ozTjgNhS3mEHmls+V/Tv+ ec9QNTavC7vbDLj2+730FCar8E1/ qUA6UZsWabqebgZZVeDDoXqCiCBETSuHuOUUgq3h1GiLyenFb1YtLTpflByJcPzBwqncfTHZJegRQk7I fWOAL5GMlwXUujvXNu0YeeZFw2O3nGBCsgZzWPVE0jg0xxaRHjGVM5aaOoMfKTAgfHtaQiu7YLeXfrh9 k877qawCPwwnpphp468he76mMf3Ia0yv6zEvqUN1Jgx v6UiJOWu2UUwNidnETihM8Fv0hJJx+ 5L3Wfr3d96ki4U1OLkIuIjYXcVOOSRxAYbCgZBpzPhW1d3uxemDEyfl8vL7EDrjOQKfKVr1C52S3/ UV8hqji/aH+IbEuEe+0bynZB+3kNq7mSn3IBk8fJVvkFLfgeQ56wpR71a+mn9dVe+yNKF/aN3s+TS+ l7tb+u3azrCRkNxfTBMQJ8e0jyADHaAsxcXF60J1uuV5DV7E8T/EZTq0Lk0J6Za0CuTNwQOlVhUKVWnf +YtXWd3Zn1A83T9IbAce/j18LE/6eLvRaPl1BtZrA3jE2sTtZJZruwwXk9TY/ZE1xoCSE8wOg9+ V5jfeTLh0imWlhFpHlD4hoAl86/xLGwwCOuaJlk5M9T90q92Lv1pkszhwB0pp77v/ eifJB1R2rrF2qZVuogstODpTGIqqScKhvgu2Ysxna+D87IWwyj3cn2K61piL7LU980s1W+ YcGpp6pO1rtAhVwLYlro5lXZykAWfv9JoOJzMM6VQ2OHL47eH5+pJH8vz+ xxHwh1qv2992960enhnnzFVU0Uy7Bi0lj0gXdpuHvfrpHPXsyVh7xgm+p9/hpksA7Xg1R8y698/G/ cOjrj8nGtBp2/HrK54U9FBzZevh7DpUtsDf7nBz495+g7KTNTNll4zj/l9gF6jbNh6OA96d55jLo+vJx +kp7HssmsfujN35+g8q04QjNpZhnswLx+ Ua8QFswEWFZBBJOjq9fj7653uYegdT83ftiSUEMMFI32BkdUNDNBJSU1axOjj+ sXSedUN2h96a1eCG4pWV2rHkcMIhH0IkQJNXYaNBRq0Royn5/Jars1CmoZaBD57eh5j5ta/ V6elPczqivPgxf3Qv3k4ICOnahjFGM0+XOPf0/gVtOzMq4BWZNoA4/D1/FIjEohJkty1Gq9Z/ Qz4rKtoe/ukngHAyO/G5y4GjjwxBMEwbw+q08+ Lb9vr5NOgZAi5YRSyr49Ct33FYwvrfVpRKpOWZyxCUHvY6uE99dW3B8GYmf0RQ6aWCCI89lS4so6fDvk 4eK9TGhTY3Dqr /DTwrEG4EvPB5HXLzjvYAoAV9Lic7vLNI3gkjxlIVP30H2YnqLcOaSuRJi82m1c2mi8h+fdd19+ o1ZFd7sy2e9SD1goT6Ji49O/2XJ8fm8zduwf5tFiuXaJzcGQ+8QwLBVxubOwMTtOTnyO+ dW2atH8PNYSaNlSOQgbgNtmq6xzTm7ppxpwZO7u8LGrJ/ YMSmZICVGW9uMNPCsH16ufmzfvX1NKmQrhZELW5il2kkzxTlvhLRaXrkxcGL4cODPtgbXyRpUFRFuYiJ MzVSBLb1G7Ldcpp9nmhstWRXPcskB7sqh0NRMbYczrmoaqVMgY03fHnrIZswnTCsB4OUFAZBOh / yqGlYYFM1ANBhkZoAnrteTmU7bW7qMv8nguf11RJktH2TSjDizszJK7PKV3S65qBgSVmaTNkkwQcUP4T f1tT5mNRZ0cDAknKU5YYMo0U +dR3cs7n2sGaCgtqtODlvPnmuiK5I2qyYPe4GyuWqs51CsdbD67d/YoQlzeEKKcen8e5U1iz6iadqf/ tzGMawZqm0tM3sgm0ckTj8vRT7gPi6wGcpfYkhMb+ iRmcUSPJfQNBJY75qfuI3BAYxolTnRYuugFUfpzW8BKLQPTgvgf4jLns6CUnevWIC9FZXE+ kgcfUQSfrtRmrhKar0Pok4WoIhnkd8r37VGCyKU3pXzScsBmFHgqBG0zruLGkjbJ5o03w62sjJdhdij6 dR1EqLl6 /ZLmM3yQsfZAlCciRPp0Pb0q6ITNORI6GxAWEVPUVH9GbNZVYREfLgEcHuG4gm1/ oaBhOdLkATMjc5dxNmzS6cgbknZhTD6fRwk9gDpM6XIfwDIeAq3foUjjKyMvkXDLxACqZfwLlbwtZ+ wRtITGWUjGyRAPmBxgcBQwbdg/qDY91cGBs4Ze/P+fX1dydIUGm33a94/ 4TniwM8ndgmSL7OKL4vHedQIAOLH5d53CDCOXLG6FPCNiUb1Sl6wBvsPVg6gEKDfdVZRjIe5khqYEWMj QfSUAT0uwCKWTnQibkMDHMJBWAIjt +0TrgtBjiVrX4yoy+EmCuIKCp7pQbN68BplRYIOnRtYKjyi6iABcirvrrAu1ZM7WFE5Vs3Ev93omT/ wCD+U00Paw7b91/ SA0jH8zm9wrFLbkSVzvwdUHiKb5nfGxGSyeRgWuNLSJDGItWAOSZxaWtcHrwRCe16QB9khhURmOCTtZd Nwq2oc2EAG2NQFSL9d2E + C8ezkvNC5ozzFWlUFiSyVyjXSCcBcrJ5VgPJhqThikIyIdMtkDD4JhmWHU4Ywz2RtqV4Zxzqwf6jChY6 XhChTCXCJTbrp1OwUjb5F3x5ipyb79u8v1dPtea3bq7WF7nVOvw / NpbGAFIkxdgEXAgfab85BpLUGUcOuZMHTbxqtiSBupckRkyb46kaMmqqZ5RtbSEpXAn5fcoIAAfRCRPf JfmJVj1XkBsphW8KWWlHo2RxRQyMNWRwEirDgMqmOpPRZMekF8iWuAhZzNwnFnMQlIri +6MNOIWT6cQ6jH8gcxgih76/jUrkkJnRfo0k/ VUZNFvc65AqwxszcFj9BoeacXwOzDu83yR5DmHWwEXgBNsbZfR8HELqjPnWSIJ3vb+ wiuRndsbfM1s3rg1fKic1fHY7kt6paLn9hxHYBFXowZ4vWQJBM176S7Cm6Qr4m+ 9USMsS0ccQMpVB8lO2r4Sbr0dhFodJZDH3DPog3GISSGyiXfoIwK0v1TYuQ2nD/ k9U2ttEJczkPQ0LKGaQPZPKtRDJL5taT68l0KY43rhuF0tgEgjA36zut8Ko+ePE/ xNr3ira6a4ufFWyV49tIcPBJmzVuqziOcDTtiXCgGVs6XfK7p+ CuvsVPqoGsseOGSgm8GRu7XdyNYHBCCF0WyZjFr9aT33a2YJtwkyKmYAvJy8GveRxLkEPJvB1c3oUFF3 cKwLMfL + vBIg2AeQ2UCF7d8K7ggUgWb6geS2ibQnxXTBeeiTWiv2YVYQA9XEsYX2S3fQMygNcKF3foutyl7nAaEQ oKQyaM0tsmiC9f1pkI2cop8J5GmRzMG7dXwp4PYI3b2EUkojTjIXY7 / tB8JYHVCvrShnKQJoMQcBJlLYiS7FsotcUePEJxX2o3tBJVhqJQNCR5HMWbHUaY6itkvOYyJA1U3e0GG gHB0f6AD9iYwcvVGjLwx2AkSbpWOcUKmxJutAdFSc /ffQHu764Spzc3zdYbXPyiIlGYIQQuLva/UJtpWy9F3oDD/e0UZpszLJ+oMT391R/lbV/nPj86D0mjva /rW3RapQ72t5snqUyxjZ9EMq17yt4puslNgAO899Zk2V7VzOVA2V5vzDvSNPBVHhCeeMUBXgynqVRM1W +Rq8QaW5bHOvr0ofPF4vO6uwXyku8CxYBQgWgwOdUPYn4l+DOZW+5vgdXC5nAGLHF3HTm4/ BMsH3D4ya22GPaYjUqKkST69Xh0FXljNYqQH7rSfpZnK4l9hTlAATVDoC0nwXwpIEU+ tPDxLNI9hb6uIBcJlQ6tfFl+zCc+KXIbrO5jVyahIB3nngeXW7qzOZay9IegLyfAvtwu+lrKOy1/ 7TA7FC3oNxdh8SVg210dPcJnfVk/sknN0ihhH9+RQ5RMBUpsA4o1GTvfISBxck0D7Sq3ltyLyYbEx+ 9SqKJujqJ6F2JyeRWOb2DJm3r7WYFomfcpSbkokLh57WCg8pF2nsxGt6V+O+ xfvNl3TkHIYerDwVHui4HzASGKZlz1V6Nm1GqCm3ew2jEsOE4vpHx0nbO6oAcW2dhTocAyaex+ 4OwB7vcXAP9mdfLU1KqMs17I4Oeai30qPx5z8ufoBIJjRck0J6AWKKyQ+ kZVCjDSeXUU7QaJM5kJLEKAU0gdQ+YPccRKhJ1Yt+ 9o1lXMJvplpfwbfRhOfUuanV5wq23Jg9mEGLrcf7XSB7XfuiTR4Ln4wh5N9g7fV4vzo9vvZMMBNmEnBv LlgRqcsgNtKD661uOm3z2a4eq5asKIZjSuc4gr7hXrUo +cYKAvyabWiL1DzVqnDUFrVwwwif+Y6eVbx/ ibnnRFrZ213ndULiprMK5UBZZQIuJzSIZZrzhcIz5oYvyTCMayLm356n5v9bZV5rl5Ix7XletgKM2vvC TwEwkkPEAVgBEE2TQI19jSFoYwqxkIRLAqX4uzq1cgu +4gp3UQwqeC72wSrG+nV+f2K3kZehcnqafosLgAwcN2nEeIQzlNNjK70BPWXB2lybAT+ Ac46k7BoJyIOF7qHLMxa/EngTVVX+oUaQNwI2x9kngjq6QyTEUPRXgTizFBLediQrWPhTqoz48a+ 0dQtpmoy74St1TLZvE2DaWOkcI/ vmwERK9DLQM1xtPdHXZT5BGvcmNhqNpsyoriquvVce5IcQqynjRNNj63ShAZxMsJ0y7i9sRcKJ5skMdx 6QOMY33UQfxLyVEaN5idsNjEig /sj6oyBGH8wlfNhxAz98K0gh38tkW+vc/N/0vyCm879l/ N6vZ7qjR1f2QF5cwzXiRyoRvkljqPMqo7YDuna9Y0IuI6gvitIPeVcWNu+ 0C8wKrU4fxJwCuVNrfcfQ2EU7jKJTUxOvqjcR0v+wkgq68b1ZzezSLFb+ 1iDVWMyQcN7xyMecOfcp5UGIt2FfG9A2bN57SduUOJgJRhLMwVOkEFdIOpzRqMCu4aN8Bi6ZX3Fd6yF1 xB51eClaH8cie8sEU2OuxQR8MQ8kqXhmo4soQqSYomilgd8htK3qZJS3TVs69NTbAXpSMf5MT0F9 +Wq8+r6s0HFp+qwUFGfwXUouSkuVt+9fKttgd0V+W2/ rmThA2D2VmHzzQ8aLaEnmnHfm2yhHVw5hy2QhdCX+ nDz7scr3jj27aADAS56ENs7eWYGJp3KdtDGjvo8m/ CsWX9zR6gqL0kAhJaeVpuRtiHbjgTSyikyQoCWONluH400np1nnnk+sT1ColIqua8NXtwF909MNA/ ImwCFYWVwY6lTaYIQfgSXdUOdfmOusqkcqq5kmXxf0hAS4Q95WED6Eujeppx/P742sKhjAhPZtKL/ ttHSwZSB97cmQw4TwKzVdralP53TTn4c+yiva1K1G+ c2YYaQWcuwsY8hWVpmBL4dMrEM678jzfX5braoAzb9RNfVK0uS2d3Q9l0wt4QMYUtG7ZL7O3DuJvIFmX KfhP4GiLlidTpkUtvBo0v6sphO0yCy4dq3H7ky6MHYPfmCqZghYHn70xoddd2lbflrRpzhvfOLf7yh0O pI4 lnI6YRW7dcIrcpLy2yPAzhNQuhhYYI0tdp5ZWWUEDYEADgNDbSwkeIcuezqP6/ yJnf4dRPaZiLX1b1KQbE1YU6O056Obxt0tqtx0uksEfBzrrj7BhwecMiCMVic2hx8fXTT6PZHhvRfwWu b5XN7uw6 /bnwo55Z+l/ D6LEqFByvX1xuZIfVJoszYf69ttc1Ry4Q9YmR98IvOon39f1Tr8hJ3Ihw78U0GKRKNRQqPDebQN2ld2a U51u4bxWTNK +F/AuLtZwLvg3QJhlN2NY40xl3ZLkY4FPc68TsWfHw9lbItd/wC+uoaQvK1wKm5iIzwfoS41+ IHrV8XUYHp/0L8QuyMpPWAhTt1TlDaAx8Kd5kEw0cqa25bZoB2+ wgUX5g6osq2S7oq3sbVWztZAcNQrWtr1DmdG/guSy0/bBn0pjtytAq+ TAfvaQ4ECg5cxaHU9PAdAPX6Fj0ZpYRwvYbeKcMn4cDpZ121v4afjZ785mf49HN8XHvIHA3LzTdzcIFE jdBrmaW3JL7FhLOD93AKoaa7kcPiHBy /V8e8Duvf7P2CkHig3MpsiRbuCdBOqetA0ejw9VLFtCUMUI7jrsnJ9E29p3ZJmvjgks/ awG64Emlcy1UH1FNxuxVkExirh0k2cwcZXHBedIQmwf77Ndzvo84+ Zxn9h4Sm13D6WQk8UvBDwxF0tDEVxipwNNrGoPhF+t9ytclWE2v25pcvheOTvrBZ5nihweTH/ 6Xv0sP6YvEi6Ypio8u+J3573QPOT6gpJwA9tjSXA6RzkqzxwvjE8Ia7Gv5Nj0BXeszD/ZX19L+ lejjuakTgozZWSBmYo2tj61gQv1j0i6r1dzW5Hu3bydK6d04WznHU3Vk0zg6diBLXv0JF66xrqr4yGHs ez8VLT0B9Af0cEiJWHZIXwEcuh /Jeu8tx2F5+ 4VlMO2VIxBqId2kgoN7lDOlsNDBslYwOHQ51WwqFDXn0AMBFx9OsSzP3Tpg06lPHgWyIYIqihEM1uVEF DUrxFtIosLgmvxgL0jNvr6ryrOtE59v8OhZb3gC7ZzRILQgAk5FkVAYbqYSqreCIRLJ77jTYmrfuat6Y d +3l0su/Y+ NvHU14VCtLgQsLk6YubfqDE4qwVUu05vW5jr909roynS8cffoSxvifQrKrAly51wsSrYTBXo4LZSod3/ wAwFA/mg39Wtd4Jv/ mh1p9ABR40vMmr5ptBC16QyXqqbahTXumjukVmkvSSPDeeIvrIS3apmV5PBwVpcPaJreCE+xTNZ/aLu/ iwLVW6Ttwumge0ysQF3O0EuN9KxRE/ lTZPsn35EuX6p4M8M46PAkcg9im3izwSh3t1SqTxfJIWWcJRqAwXjClhmvaoqWOhAOEgPs5FbObsFKns vxX3N / sx49aStVQvE9abqotUVsudxi2kctd6pscro7bspYinlvHb1gJXAGPip6Bhfl2ysdkLwZ4b4vdezIJvhW 5iJohl1GvqZxF1La +QXjtqqS0Pvwz8S16bRndFe70ocVAdt+/7MJfBgULTnt6WpOrM83phVzJHm+ONN+ Uvsi2a38rfR0Uv3Xbtqn86fbjfqVxWVqpirG4mta7k7OOll8dLypR0kBjPPh0teo/ usgL0M6PUcdk9m5sc91bgExS5wxQM0XHnwxr3rJTJR6dcK2aWW4PChf0nOtdb/Iq/Z4+ iWrbogcCqFyPC43ui4g48BoP2j9lj8RuWIvnsS11hkrJ6l5Kmqq7p7lo9m4Kdc033DUH5rv5ma3gApCr cK7ivCaXdhEtMa4jUHrIFaflQH45wXgl2ahyfLF5hB5e +GORNdgMcBU1e5U0xYlshU2y2THFluly4MdHrS9wNlNX1r2tRL95Jc64ODiejchI/GGh/ hDiZfW5FsQZr559zGG2AfyirtW0qYXlR7hYjYChyS8a4pDTQ5BuC1R6CbLhYBuzm8wS5Mqn+ 657Y4oPhmqsmKy3Ke3QeV8mrtjtfwr3QlEfCyNObSNb5PCtgSQvwNvuEiRaUWAGyFgwWizy/ tcuhpv2rt8zUuYAaevbszaWsXlHOQZ8PE4xelxPU9Dp9gJi1g+i7C857q+ Mi50Z5scCbaSTfp2wWdgcMyWstIZs4fjF8mKqeXwz6zFA2ZcQYTVXtmBkvu/6JOvFxX1P+ GfAZIFDTp1OLryzNkg7FhtjvZR5dhZIqLat/ zPRAff2Zr5d5ZuunY8ulSxAHQF9eRwYtGnoV0gdffZibvGlUqOWwibZu5OEBHjZ7k9SUDXNzakDH2gtO sO6RUDe8ue1e +TwvIZq2jAeRy3h+K7ZRo/zmPJtWqskLoeJ8wfvsjsNiNEm54xLi4UXH8ydXjH3ki51xSRC97VkIt+ pCRIerlhFp3yeosPY/UuULWMnrtkBpopHNzQrHHXbuu2i37fSDXXVQoDqF90nTFvf+ MFCBwcHgs9jtIqlJZfKMFKstOM2NcCo2M5mGYXoJevsoPKlPJCUfotxCcNQsHlUHNLKbhnH1z6Cqx/ ZPRIsMb7tdzrpYGk9XjUEIcyoFADbGCKtoDa9B5FOcMxsPPbKNilD+D9Y+KCngGwdBCQc13XLN9Fm9kd +ivj9nQYjv1663cMzvDmkuSrzdcThzvnFjaV2IPovYwx9GOxz/DHUY/K7szBWrRJGBig+ biin7kkkyyL92n8fSgC1qSTYFBFZssTJ7JWmfJIDRSiS9OmCus9frdtga6ma73KxclsdpXjiFm4nhj9N bfyMGdL38aWxa92WX6cvnBr4g /X6ha7e2clGVDl9ktoIQckbflBY19YiEJ7LwuVNqPsp1f8F7z4jwd9WAv6MoayFDbWkJNwKXh+ AuLtrnuuElnxJUdwPjTnE3K+y3lyFUmyPItlIF2jOIXsJfKNxWjASmfb16pwCqOZAtPvti2d8ViV4Vi/ Bmq+NPpDMYlyfip7Qaq95+ hYdO7xOqV3f12WrZAJWwdeKaDWGUvwpGu4SAYSGYO9UFUngY0sm4561PczcDongb9nBUyo3in0GLCq6c XQUzSPW2eOY1xLh5UUfY7TA8pYxP18eAlbx41uv696wbzhacGRhz92hRXoaTiQkAU6yGN3RwUtCZ0VM9 sjj /YWP8Ws3XvQJ5LmWdvbAuQlDb7xb1Z8lBNpiLoGoi4k6GjfI0Tuu9pu5Nf5qwYWYRLZhGiQox8+ v2AWuFujZ2Rr8LyD9S6SQ3xPR8An3gI4MblWf9+ 1kdaidMrDps7VDpN3e8wI0hkkn7wrfu33wU4qqhHdK14cDUpc793wV5U9QdUzITaVvm6AqXgIU/ vVOSV6zuGafqjqnFv2tQ4VP1RvPHT36DmIepRXZ8f4NBNc4rf3CY1sdrwwfbpPh6sV5NeOd54ahHJtri jSoB2EFtUs8k +38tEs8MmYgasY/ jhaJEmngqbLi3rWBpqkTDuDwrtedc99sy1j3gyJ4WbNiXKuD7t1R2AhLO3ymAJIycR24X+ 4LB0gQ49sIVHJ9uKmsqSE/hMiBPPYIfDsSska43SspIaCOP+jvAUkG81XHqSL+ umHC6tn9fuuetMLMcMZsgNLzSUiGlWUUO63o2lpNemcUA0ER7r+GoG+ 3Z4NjX8ixq2qUnDcjyeaQMnnLByUTsSrgpAQG7Eawjy6MbMHf3RjL92i82EnpoOk07mnMpJf2XHxmDdQ TrvC4Y2SsoKSxUyBhdXvYSbGBwLVXE41I57370z5fo4aPT6wke9WEbWZBW8fdaqxMMkwTe9vceoRRwTk uaSv9BRl5pR8pzGdbvQsxcSFcLxGQsFi1 /1RkXzAJEwFKAKs+nUBUO7m88WowwFWCdda5yG6nErNpNhvgWJ+ cKgMtFUdXRixeU3X3AnjiCHbNIJShD33f2aitzvwSHOwtT8HqmWqmfUHlMtOsXHJnt99CNlfraCcjQZw vKZE2 +QZ7lniVI2Jvij4SIdjfi3yZChEdcNI1nu71p7oadt7g1+vLlunZrZPR/P5L/YApslmMWJ9Z/ vrGN6JHZ0CDSMd+1IE7ngG5Chg7M0qM7BHuVSKhybMkdRzuF0/7x9X7meEkw0euCR019EkQ0Il+ ik27Zn8kBczO1au+SyBhXff5WRPId7NA4JJm/JQfCzuJe29dHqGK4Q+VYS7MF+ oYcWxZ9PrsgdFPFpmJLkm6eNtGMJQEk1Pdzp+T3sPhfzwlJow+L4B9UX0qp20p5z/09NjzLXaate+ tv66/ 7FO9QwntaVC3pEa7hhdwth33KPM2zVYIgXV2pAWzcn4TCHZCMkrENq6hxZBQEtuw6bcVMjXPRlPf9gN6 plyI9ITDDgVRT622nossUYqsGXmokrPAnRCEXGehFLmljH4NFzNkQIA3qmlXJxcwTJeaN09GIkw4khIz XQTZon3MdgrzLf5Vp4kf2CV5M1OlfVo9waG +u/wA1f7r/CPTrhsjwnpr92BvgF0pgRGIqANV9KhncuFRURnJyDYnHhscy/ Nh7w99SLYC208C96wANBQVBRqoyukaEUKn8it49bauVj9i6lfX8gC3c2sPB1ugJjvKdtFIZk4LLV5gx/ KRlLxyMrr+9Dc4VX1ClqLA8p5UG1/ 2y8SsWExvquxIgRwNou1rpEKDT7GWjNfO4zcqADs8cmc860ezQm5ky4D9Zn+ wNqnax8L42A94Is1gp5JSsiXxvrtgXNxylt9nvNUtcJxtg1S2CUFUi+VDo/h+ C1o6W3ddT5x0Hu8rn9CMp3KIOCk88gEDDwsvuKHVUJmKxvp6qnx2g1kprcec+ 6OhFEIIO65S2DoKXaVIHRQhprSSt7XWQqu9t4avGZeS981xTFhs5Bx8wWchoKH+ ImbPdp96eeSEkiEP778Oezw15R33jh6pp21XiTDC9VFb7o6cC34M0oHcSBu8jyuZpFFl6443JkhKoq5Q GzR3MdFVsblSfdOmEfYEXaPvD5VYEJ1udrJET4OQurCA97qIQ1hKNCCGVhgxMKnhLKuEYPIO7NFLA4WR NZ3Q7CTPIaZENzYUR4FcDrrsc5LaWMdXLDM1c Tb3XyTnvRnMz6xRyVpdlqwThi7A6DDcTGHHdZkj4wzTxjd/ov7NSLvo7K937ed11kv+ B28ZZ8LXHz5jgZjiPlY1KqVHBqcfxrlf2YPG4ujcExlmX0nnIQ2oP6tiTxq/ fPCNkWqGBWkwNrHEuTYNpDcr35KajaVcKZktvkNOVDAtkrbTjButQeeeUQEAaNNRLeNCUTSKcjWeIGRl hYN6erP4PodHVULfysKqA8xJMCJDJlEVtfn /lvr29O/ zHXu8r4JVo6eWl66b2od5pICi5y2frHjjnNehaBKMlUlHYPxvzTxWESfhaIkNXaohkX9YP9GLaKPM7mw c /YrSFOhA4eK9c7s+ yT18z6tRisoZQABL32ceIH1NclHiYDCAAhwwZxYrIODs8yoJ52kr2fhSRaFdVMgPd7FLG87rkONIYLIm nLnl5Xx /0530rptt5Xi4/1gewj9WelaHYZftg7ENTL6BkjllN9loSrVSuvnqRgecKJu5U+ iAUafHVdY8pRbsKAriv1WATyMr2u0RBblWrroKQVzDU4qhDwEHHrpUau5KWsF9XPaq2WFwAYGCzXDHRh 4EMNR8UJKvGL3kKDZtzj3yh3lymCzp04xD3OOi8t733Isp +/wB9/wCrGdkjhd+0CGzEoWVBvdRBYJkDnANYALHTUohGP5GWpckrigYhBzOIOUnPMpVk93rco+ SlLbxvjnGy60/w/wDAN+MA9vI2urn7c9d5mjC0WnUHLD7T/mIQ8RJ9+ 3HYIHHmlp3roIymvW7EpnjZRsfQZr2jrWERUnNjrSURQjuSISmHNHtFBujJnI/ LOLHbpCbMWlXmipdJhj3eH3NJuIRANdnX3w5A6bgke5jiIQYvjuV/ISdgcpfd4YDT9l02g+1n1Wh+ A3vpws8ICnqeU/ k4UMcjFBc8iw2LHGvDQpGuKYdNqGVwdHjrY7vLe7YMNKvs4GK9hpH8qx9Q2OHwZNiWLnQfQpC/ JteYJi0gbYBIA3dbPuIDpzygfGHRW5IGBHV5FH4NArdLEMcpFLDGho8ufs/X7j35yk+taUAb6cdrEas2 / pznmPdRMS3X7RldeLvd0GKei6LJFGnTJhdhpzCnwFAdSY1uRAQmhUXqcTV3T3gXLCmKx5TkrRW0QRPwm 1UOmwvvTShp45s1UVDDdchGcMXBNzBKQTQrEQ6vaGbI16C97oDTeYmXf0jlrBjchU6eV1E60fmh9Mi6W e2i4C8k14k7pkWYdAwf3PjS6xa4E9hrKCar3kRruJ0YG2B7rueHJ90ckIeJDGocrDpFtvAAKPT8q8ZH vadEC5+ EZlLMRW8ZbzUXkbX4X5HX7TKZRQmCqIi1gMRSwG1gSrdLcpo0GvLUfVPKCfJcsQb0b9eir3p970/ iB68KNsqH5Ch/+F5tvaJCPousNJWWM0zUQn2MyEYqFWl+ PxRVVWYh3NKrweX3EEOHF8gQgGMKrrh1xrOY6qqUbVSgtZfRWu3EFPeEjs97NDOq8oick6JZVjhNDGiB lGtVYGIHAiPRMFBvAVBhMaHkmAzaNzPOiw3eLoRpfrl3OF4UvMFxS3wrp +9tl6/PoYDwH+YwlmfmOBOjWRtZGWtpgPURQTCRJah4gEkEaPYfF/ EhNdWqRMLjhMJrwhilDywIU2rwdnZP8pVGmbMxkNmXUoaRjyttmXD32qYoo3k2aJtYhdaSRC5W22kWi/ eyBHPekRwfZORIWC97fVwf+rfg/MwRW8m4CHgji3bm/barbara+ WrCHUSk0YQZ3lAclPIYoPiQTUOXGgVMd5W+e/HktxcebFGxDTSK+ KZdhOKzC5Ch2pmzFIuY1kr9OS10OeEnkvIO6JFf9Grn6yoxaY6cZpyIGHDLgeNR2GcaJcZnbH0nzyHHX Ycrv6kR11rUJ7ZFjmBIfcqoMEDvnxeau7MuQsY5 +fW/X8I7F6w1npUC+6sRzD4LTZO6B/gWvxfkQefj2tQxdVaSb3wungGPy+QA/MWWvcvB/g+ DRZnaYpl1ssaYvtMBde/qBmxLjLUhkDtYTtmcdfDFieKCpk22Ha+ CbFTefYXJwXs4ZO9kxDv4X5v1hkJyzEBiDOXQLpJghS5fbVWJgAtucnSwCrvZN1bZOx04uy27bu30X90 v3JotMIPlVjwYq1z3ze80lntpG08eNrEQar8zJFGeGkTCFfXX2dZ2MVFYb5MRHaCXYEjW4X /FR6sKqhSkvrulaednRHj0PcwXZtCXJOJWyQeDLarN8Ktif9Icx7TP2tyDrfrHRse+ 0aGnKfSVTyMCcvIywfI1Lug+ vDQ0D4CPhSZ57OIs0ylFdYFJ163vMYzfcYCIXwjhBEPTQ7Ifs0SCZl34ye0vhVWgak721/ 6eH2jwv0HEf9h8i6532CY3m0bQ335f5qlsZb2osP5h8AOSxSXHSGHM8yjpHPQ+ TRshk8n9vZpraO7Hl8UJVzTCnOWJyd9Nf0DksrrAadpSsKqVYcQ2bqGxWPDClesRvD5kTfIRxqq0WgSR ezGzSFFCuIOFi9FcTZKYY9WRIi5g7e0jq3kfg3 /jUaj0Yfnzv7NeMwyy8H1kPiiSraIL1eI3ksxHUnjatyGQ3EC9uwG2E+ AU1CKaS3c0l9hCHZ4geyQz73V+kT9G1FlmhGpPcGAnMV1eG1fTzATzlHYSG8GcyIGsOuOtUH/CBn8Y/ sGkdhk7g8JIGkwQdvrl8w1VwVS7w2Rs9IASyipFTKjm2pBnyTaXbGMAcdj4EwPg0Q5Hgc6Ip36W7XHTa vb48mfJ0j5ME +tefw9lcjaYHnr6lONOcJrfmfCEXcFLa5wifBwBKYQSxrrMrln0a+ FwvuQ3p4UwcKbtjI8OHVtescxrXBchRcnYEhSRXqbIAaopai2+ f3zKnxa3LoAv0qaKShKuWxsVT4D5VkWqIxlMm/qxX7I/A+ skpUPNBuEOOvt7dMD4OP0QpvqPPH8YI6WX2lNsUkyCg8CySXvaK+ 7nt7vaRibdvAMdBL4FelZtpl29p77adZ1V1ugw9x7ugaOqMbFW1S4T1TWwvFBSouKBX3FACxMmi3rB/ BGTnnH+J9K8c+Eu3+nfehsbt8eDhYLSWYcrIxyhX42GOT2Omhu1uWaZF0/X2Z3d1aOW5/ IRwx01pzwW17izRRwB5ncmh1Zpa4qrtl92q8BgJsbUax8rJJfBb71DBHeqwrA4nJy5dl9/wzSkgdf8/ T1pL/h7d/8AhrCffb+gsw2Uq0LT1S/6/AClX6M7DM12UFF0nFr5871CP18XwTWssjApZ/n+ fOMnKee4uzpvrUTEdqQe3F/IH44i9ySmz7p6D5SHchJhKWwhn0bOttc5G0gmnOFn7Vftd9HvesXku+ vKpIs42pURcu9T4qnl08c05utVjHx/xvogjQXih47+ox9e/By8XhHvjJsw/Iet3G5fpfoyK6+ o1sGga0xW/R/pa0issC6wET8e82v46QsHrShGwT+h5/ whdfPbp49mEQgj6ZYycUil7T1mUjVuN5KfCUX5BSUCBbgsznSalrT0rw+e+ JtefpFTTSgEg1SP5gResi96HuZcjHh61kt+S6x87rImvWT1r05/PiUV6al+ oaz9S9sSYbT9l8OkUnLWFCRdJSwwMNCOWO7KrNERWg9Ih6267Wkiatj8ufLJ7cIBvr2cJksRLDJEfmRA YYMehb8r6bItXW7fGr9CHakIOmJS6ZLw7ynB7k0F1IDCwWjLuRqR8I6axmC9W3Ez08UohF8rhB4GNZfT HSNtLdKv8hCDwOVlwxQ6iCEfqNHG4DNJXa9YYVkpIQhQgckw23KsIiwNkhs0FnLYg5rrNYDU umWEdOgHxb3OMaJfWmt+ b9cCN42XOzDotqnZlKIzPqRyEKWug3CEfyNzz3TEXFaUZI3rn5fwZp1MDDzLjPid4hH9lx49Ktk8HrJN SGvbi /1FqKi1tMf7h0jTToDfRhjBYroRIMIedvG3mXFpfEp5jdjbxaZW5BLeSbl+ L5ozhD0IO8b6uYF26AylFU+Z/F8vY57L1M4zYUSySVQzUERP7xBmHGuqY60A1QpFUyzKiIyGyh+ hc6x1zrp1QptewHeZYJpsKOCFRzXoJtykzvq6pHj4LomLTSsi9o8Nh1+Ix01BLbCqr8N/pqrW32+ 88a3M8uRatJvSKXpMJFDY3sd1RiDosHGmcgDVJJcqHwJI5yWR697309LDxhhLACP5mfBmjLouH59jjoP puIpTfmBOCgaLSjZMIltRKoXe5AEJnnT7eF4WuIX1zINZJLRFURDZLsThK4wYvOoa23Ik3o0Ec5ReoG3 Xf19cUHqva7PFB10H5fHD006N IzsjQCW6zmVHH1BzCaXHi5DvG38epQV+z+5X7VzwVcNMIicghjjN/ilHv84Bff+ yUjSnbfTHo0GPwaEcC7Gby9mrXsgLDwrZzAaB18KPRnt5vwyFPtg2sWs4Zf+ 5QCEkjiZomUi1Qk8CEjSmDLSjX7Z6zEFh6txTpnEHZmLPa4qQmGRRp8fMsFPI8ISuRFTNGWG0+ q3WeZhQTlcQLmdF1uDkv4LA3aMcBXm/zzAdTgg+KDHmBKF2uSzRNu2/q/5+U9rIJVNkjgpmzV3A6w/ JT7iuvObU8aU2Up8dc5NwSvTQIKey4LLtnBKf1t2hh6fW7KGCChS4DoEKpAMzazCSXsyLL7PhREOSTy7 H39qy4QEk5xLG4Y1KuXEyqVtqrXyExWw0kjyOl2EHl0rm4lyIgnZO8hXyprosCFnJBYqTPy8CmpwipVM NFrbfrPaOU30 /HfTT8/pIpEUfw47xJziqd6+ Z0L9PhEXbU2i3HeGQyxKxZ1xCfFJJGltmUNOQhYM8NLRCtfUQ3GrXfMz5ZKgg7nECGFm576z49Fg2jCU 5BApAxiRFkYv /DF47A5RoUd3OC+j6v/ Z61pBFZKzQVLcvIzjd4iCdumq29NYYCrBEROSpleBlndMEZMDxD5zSpMbSiioUBuCwd2RZ2RtCSlWmCY gDVKnIAVM2h7qjDpP5J +jhbnne4j8zCCs10b40tpNthyszUij8I6K9oT6vx5o8o0OumUFYdcRVOKoUkbkcIjCvusatCzj6+ BV5cjtBBNAqQJ9CDRM8yF3CancVWgO+ K4CiBdf6rdSrxJzAdlKEaGXaisuFIxgouDVKAcPDoOtLuSQWKeW+V+b9eOwotHEall6ilTKjAKwKOal+ xdjyavwDPdPkAUxlZfn9ZvxwwpOUXS7or7Ut6CZm6xa8VywJ8faj29+ JUoc1UPPGyGIRADuPUIbD2yi2Ezr0bpUwTG6OpS44Wz3ZBqw/cEw1Ee9VrNIl/ ZwJsUucK79UmXHD378GUIXBzPTGOpcrinB3OL8RIEXNAyjseAqTpurJBOaNIF1NngkhlLTRIvP2Gcyz5 0YvdTOz10uRTGpwZAdXT2Vq5j228wCkbB99Q +UypcgI95g5360gz6XgxiUP59dMFtfpYHE9t/NLKShDMjnOWACk/Kq/ QTAhgbiwzOfhR2SQFjBh3qcWcWpkvJwnRqmfOwZSHhbCjopAHzQPpFJOSZdLuixQaH21T/ VgvLJh0ErjQwJACERrD1WUmJJw8Mx4oAtzjuFxbeVfgUUGajK7Y4o2ERuIRoUllcxlc32vdkf440EicT H68Hh9sqy8IE +9qrmf0Xf+HbO41+h5ms5F7/ MToCrElEKWO6cN9FDfJaYrHmJZHL9chvlHPjdVIGlq2dT8VsgfWEEomnWlKx1b8FyAp5ik3mpVh9bKCE NR8ERQeMLX23JhK2p46jlrlBuBNHG6cbBHKnFEQgfgQ1qyfm5O5GQyy2tJGoyx3DjKN3mtCHwOMvUL GMcirkqHePCkN8+M2eFDIXAPE0goodvKrcp5jn/vgOAMCSw8tR9hl2Mko3a0/ RmyBtzKFz5V1BHSRSNZE/ kKpkEIzaJEBHyqpnwtRKQK167M9FbppH9MkKjP2Br5YApUxM1d71r3oPmueUEAm0JYwSlWRKCtZgaIMp 10wKs1fiRFxVhqqZH6AqCxP /kHIuGHNvJxSm6SZM1xPvxSMuUk7yPO4/ 6EPV99ari0GAsEHJcqMuKIIyuBQTphAu2rZk3fzJ5hoZDMu8Q8shqY4D5b40nbOmxpmzANxbO+ NnjorFf6GwwEmT9TsguSukEsVz7x2XKN1xl/ FDdvxL1mwxrJp28i0eOVdubpVOLLvOemRgcZwXOXasMG23Bnu3eZGsZA1100lXl9smsC/ cRd8dnMvSjPYuswZ/EjuwGTHKEMI39UcZONVUDQ2EXGrK+ 5PrZBITqnpInuqS1ZJJarfCmwt7f9qL4v13gAbvNMu/fy9IKxeGooJkxHYk4y8cz195/E+ GIV6ol8BrEb3hW6Mi3uODAoqSE2YIdnHsDxfBL2gB2zQUy4FnHSRWvgU2qkJyQ9+ HgOcESCJiLq8ir3LPKuLEZnYfTtXLYWFctCbqHZ0POHf+ xQ8t0pTHOKzvqbyLvSDJkYGJ9iRszCQRkft6wCxAHd4m6QsRbS5ISDf7w3S1W2l+ tZsyPLY5PuBSTbO5oPO5ueC2KbfUpmgpYu5I2+/p09dl3ujkcw45rBwl1OCdnR9jd0J4J+nTe/ H9i8gm64L26hyTe7q7dryycVTRZfbbWqfQL0cvDX0rvkCDz2KkMO6uLJK+ Rebbkqas39ewJ3NfHaBkv4w2aAh8sQvF7zi6dYhKY6/gKqvTqQAAayFihU3qWWLPXsbDT+ wk81XYPu6ndGPt3uzOs5EFpdgEABTSZLL5wFqcfOvbTqS1es410AS7zSTP4qr8v6Ctw7loxg2GvGCBao rEMHWZXCepQAwGh4VOI1ji0fzloWm /na/ZB3wfz129DIRo4v50hKr35/wW+p+qW1927ORVB3FMGFntH17aIVMDkRNVX2DtbabOUJ7Xp9bz/ az0NCauoUqUnOPk0s4Ih29JSM3K/c57qDUWXmnoEj2wEAdfj1yXvBsplwaeoM2ZVlSVDYew5Gbpzxn+ 49Q+IRyHv786o5+ yve5RXpoyGgiYANHLbYgrQIlwgh3UQDGEoNFzTDLXGORshlfzy9o1NjY1bQUo1A9tAyY5fal2xJGjTb3 mSSRILeQNGXlgfaZ /8XNZazQCWSqMWziirEiMc0KAzoV+m99/V6avc2Tae55TlHP7DQIgp5+ruumnY/ J2xx1H15rBEvEV3062t1eA7q8s3AcdLD8DuXWZSkvbUW6gn1/ fpLNcwiGGuwmyyT3DKBXyzPBn5g1P3sKRwX7n2El0FkQA6KbV3t9BousMR2eh8eheonNcNnaYa8Y5C45 +T6n6xecHQ6AcB4u4/J3rtoy7HwfEgCIH8fxabXRkiZGifVscKbMXdxRIjgVh2Ai/ B8wdJwgoNCO4gY4GYyabcMBdW/bQhGP+s6eogf91jnHevPg5f1rWpYh38388t/ zKLqVg3tfE65u99s7TQ6YFzkU9u6NEBsX/kxoeued6310Nyq6U7+ O2mfqi9IgS3g3oAj8a9Bbxhg7AuNfijOhPU9srzbpnkrpIlNybeitSO4TBFItOZrp4ranVcUyHP1m4fz 0J9AjhxBku9dh29jYM5Or2LcTcfL6slzogCb +JflgWOOaKYpMfunxBouoeMxf+ TWPq38IrwOnfvD7hYqvcBtFI9ExXmFzV3ak5oDRIjpEJlkC1bxzUJA8Frdd/s/+ NJNW5n117fQjkTRT9zMhwsm7w3nQx724kxyFtjHQz8YDMmZqEvNbHXjIp15WqrE11Bsqedo6auu6OCer 2V93F4ygSuqrZL53Vh4GVUs9i1L91P4mD +AQWNxcrkP8jTTszs9mfWBsc4D/kjnZ3tNumIPeRUwPpxauyVd9ix4nA9bXQ+ L2kUwZVtxB0GpYFF6VYOoU3YU2iqwyloIAzhThg4KYNJmUW3mXV8eKwtDfGiM/ t7CAoLtfAUYDPQD5l4K/ Yd0LzY5Dyvia8PwKFt8MelMMadKKnvCgD2JWjVRGiXAQtNnD95i0XZpD6eQ9N9UiwSe2+ b2jf6jUCl9otdPLePC1MbYg6WIt13hmJiFeUPhVBY2DneA03AgQkO+7FvTVXk+9+y/F+veytujLGi5Wu +Ym2hCoQ8SltlikTK5F3oZa2IYgzo/x9nWxokT4J6x3wG0ZVxFHhNKg95eYgnaVGu0kFeXN6OtZByDaF +N5qu4ZMn+h7RO0RhQk+ vyiuyfLRlkgjwG7Q5edKI3bPdN0qowYCESuJSfCuvj8TweqS3umNsQfRad4uarubSu9kq7HXPfPWkscC uDAqhbAruLRtAl7vQAO9bEZDCQWgANA5JYeUEZtQgbFc6cB2Gtlf6HZugR1wYAZg5zMXZkv7Opbqy9t /e1NhjbShRd4MACMV412+bv9/wet4VoMbf1ckN3/Z+ wrZpaQVTqP2Ja6L3UXgQoMwuOZxXREgNxEARzcp98s161kbCecveZ95VERQ6mqDOIATiBAVqNRQLHhf1 9vP1nl1bp8MDdCw58rbVuUZyuKwhnQ2fLM7Cpc1M5N1KOK9yQFHNgmxPA5Wm /RJG0UlXfnxPGCzK4tUTu+ PRdga6ugBQZlBGNQjiESGS8iwDKGELpbU2i4ll4tC5axXl4X5gr0Zl947l7s2mdpRnfZ96RVyUwge95N FbtG1m9I7339Nt8gRGuk9TikHZzn9T3SB8gyaeBjz9zCuMebT8oj / ivyE0QqWA9rDgrmCtsd9To0kwWPdvRGjAbkIbkdgezbLEfYH1ruTBQ7bkLAAmnYjuwPc3868Vx4hhrZg 9vdgx3rDshJE2AcPfearwPACAkKKsxnFJkDIWzxApVDdokMShBFn7Ic87Nsn3nXHF4k8TAfhsVugC5 EBvcgRMMrRWHicLoLIMprP80b3m4Vi6s/ wI7oOpK8fSHqiyvmuZ5hfzXz6u838Vciy7uOCOk9uAhi6Lv0kNgstKWeNG8GJoRqahjjQB7NPzgbMiCg GcO6B /EOZe00J/Zv+UPc0yLiT0HcymPUqRPNp8xxxqXWfjEqvDNfj0RkY2GpDWd0LeThU+4g+ct8vY02CS1+ 7Vx3aEAMlgbQRG1hFmK8tIwUvpikL25mR2AQvJUZryDow7WSvGfJgpgYOG2OfoM8riLuoAcIufXsBwRy Dly6f7M2gtvLutLa2twTVmSU5s1goRh08039Q0 +CC1B8SWh+9eefgXgNWhSGksC8sjfJ5t7fxnJQ8kVzs2/Ze+ AwUdKZCnqAqD6GPAhz1joHfZQ4coEADTX40tnsFGQBey1kQlOzAyxbRAcM7pL3OMc6OgG5U7FpLDK8km zuUrbkJ0gljJVDdtWMsAZ +1FHDZNtEpooLrjwhkZid20K7h6erNNOG9M92gDSFzPLtOjP5+gLezYm0P9BcCRO6XbgjYXzS7+ 50gRKg4jZn43pUlPBr3rCywGases9oPqrOdIpQOXwJVQjaH2Fav1yUQDjWzV466svmeRnD6bbpoLGGl7 oljuf5TyIb6QfiyfQ0x7OUXsCECksgpmRU0EtkohmBjBfLc8ImzW +7j3m7SgLZLAnpZWeIFfgHNQeZJBwHO1x+2gI51ZZvmNPS/ rYcOKQO5zBnINu0hPAbutwWMym8EH3SYISfL5OvRAVX0giR3E1NscSf1Yt1tz+ K9bUawPr9zPnz3trXFUZhpSV1r2wTiz68Q3aufkwnTB34BVzIVsp4d40m1mhUJlyZgDHRyu+124+0/ AvXiTHmdQrYGawZhi9QU6aGfQQATrTokPg1wliq4znA/YRqsVVgxud1t3D2xpsfqM65Yc8yzu7l+ AiSSp5SxHrm+ BWF1oV0ycU5ZvzTMVWdvZKCqFeLmzKgS9ePMNzW3sG9ay6agegoOKWm61gBxoze4c842LWCrHOQuWN0l frqBRy072ygfOpTPwb7LS8eNQo4cSuNVHS /tFBHzFZS9Cn/xRPXHJo2DYdGoGJIk4q/hZ8CM6146uC6dZAG7LaYRGtKu+ W3j8lfkX25ZLK01zHIzcA1X1oTa4yE9ya/RFhyVUCqXdtigGVGGiMmbHKE59w2JtnW8kpjG/ I5khlKs5m/hvh4dt1e/PTujlLyLU/tVvBqH/ VYvHJGNjCFlG5ht5NtqWlXukFcLajbR2THUUNntxowWFHQeLdXDjeoMHfr/rtxqVzLDI5/ aEY3SIq0QoTO0tfd1zPsMcpLowhODSI8gEN59vRK98R2ylzVKnxP6p798ofZuqaBYv1OnsKrVkmFayiW YQNYCSBUWXBe0oAn7z6Y88VTbrw39hGkkPgS55Tipc +FwWa4tlEwAnuEcTMernXYZrlC+PMegyVpex2mi8O6a072xJ4O28vlsD2p0fIgIuz87dsCz+ llzGQ48poJ9cueyaaSPa1dCCWNCnxdsHTEfcHgDsSXFdSWwkft9eK5g6B8l4xA8WJkB2vy0+RnhLk/ aZpr+1a0dXEgSqa/zHTmOgptp8vk5/To7Qm5+ 6TpmUWZABD6NRS67QKhC1IYBEGKgsclyAlbgECVpaweJWNA6KY5unxaCziteCCemJuRryssvwUd4js2J zVQNWGxW491kE2r1t9ia4T7v +mN4vtuHbf+ r7nF9DH6Rsonzh3ID4mYOwp3siJheQ2zxfqi1XSDDwWAbgRU0ZIqRrjbBmsrOFi3IwEe02E6lXgZ966o QS2dRH0lI3DYB0szauGiHd3NWoTP75MlOLJXXjD3uoVbaxziaGj41 +uCkmdeaoZwNEpMLElT2OWxMpcKVFNLXUTRJaWMMMVtjieG0v9oZW+ 51ZqqlCGtGn58YcwFgrnIXVeXMVrjP+fGhWVX/0N3l7ir+ZDfEML3wwYMmba9k07mD/ N44qqfDBTbPDTsyuIJAFz/gLZfklaFqfGox7FHdYwzzCg6SpIbsaiCL7CyWoUCNY7N1a+5A6o/ KiSYMOuuhxfjTs67sXzzpUrjGRq04ISeb9xIzAR3DDhLvqHPIwydn2rhWYT5wAZzsHs99OxmQ4ANwthr xoWMUPNaGTod0fFtGx7qVS ++jjEJ6qa0oXX6mRzQkj3mOlYgqqTx3nEfCsOgdAC1kpxv1y/N/N7fd/tOPx6G3zf8+/ o9yejkrTQWXaRGYHX5WoIJzAfvcD3xwpivWQbaSMj3JF/ kp0IPXHfWhPEvGoj9q8nNZjsqzbUxMNHNE5IUOeISqcwoLMWtR8Zyw9Tlh40vlZGCHEIOxvVOm/ zHl0vPdImm52vOP47DTkA+4R/ xEbTx6rRo0ko6fOPOyBQF0yFxLIYYgvUhJYH8eofjTFBRuQk7t2juFHqbmB9+kYLi53wdDcX8vt/ p4vR4zkdOzxReSjkphm3QUrKJYBjciBbJw7FVNAYYQkxfElewTmAUUSVEYJZgy97e3WJ4iwyn5SqSRFh CLYuVz2Oy3vyo +YFh18yB/ddrZUK7x65higuajgFVDABqvvncel3yatWcupxVZBwYxMMcO9gd3B+ 6ixml8e0OkKKppOf381jkhpb+q/ BdT7sm6807K538MWhqImGVHOTJCCeSvgFRHGHjMRm9YRpFO1tmO7uZVYO5PWKh978Iezklw7iJ2T8ikA CVdNDIDeefSgc9GrcX9mp5YYeYZpeXrAemQVggmRerBqmAo7ponKMa8F0BPLZCrxkF3brCGExzbZppwR khqcIsANhg86Exsx4 m08WycF99qGQztunUlR429mw6ZL7Kwi5zBoRTFtyuca+/ CjoHYhHWFdL6E7QVoBAjBgMP99je8xoPjIA1wFiuM6axWE5PysyUvFdgphVMwT2UgyhVyqgB86FSt8jA 5daaUbsbs5pB3BObjb2WRnXYQezb3embK2miEF8fMPRSU +0Fegcwj7AGWlpMJwJzpNi9p8l7ISF/ Gothldyc4imma93romi7Qhn78dlrMbuAJ5A7pWiQPRYyDfUrxSCOEVFSY51kpAvIuoFifve8KWoy6wLW MuZSERYoTGTAHujO7JVCMNnjQvApcjSODgVPVCWxiMsRhPc789aokBneOi8ZSG4XLG6S889IKMkKTQsh z5r /g2q73D243emCJkn8g5LzvP1Hk3i/ S6BEQl4dJOMC0ZLDE2cUhmGjOKim8hyJ2PpRZlK7cPpyJafnlMH2PFKu0BhDukFZYXTDiTXsFxejunof jOEh0jGcGT8iI6EAotE2EnwwLHD3NPVWIOdDWhUifszTsPPAuIvvaunDOahgyK58G6wmsr5s / A0Xdzf37wa4myw4zAKvpXB65sZMhPozqop1mhG3LH7NOdFcOkwf9qlizgPhRUUHz0SnNuxeWHRyHISGU W5n7aEpj3sak5oyKwvTJQPR73gQxPjbjboZFbdv9l9MNTFe2fhcZLBlu4OZO3fdG4CeUGeeTM9gZs6kd eNsJ8fCZef224t558MH753uwsiXV3x5ko4fHpR9D2hEui7GvkyVA6rwsHYf1zaklN8MX6S3JGqxGikVR ac81YTUGSHUOwl rDJZ3PUnwrBipWrnAQfzsrcMrlUSDgqZYKTvGHsSqVS4a2ljCEkQ2guDlGmYkGnMnoZmG4o4NlOJzW0B Ucw66Adatcx2gevzkD1R f80n70Pe9Q9+ E5X15IwXwxVWTY7rJGUaR7hfsxDAUu6BJIwzRijNUukyBcRiLQHbAdFqsOLq8FDJVXBMRXHYheNCQ1/ j9e0BlMm4oh/Jyt+R/gHTbDD49LGGH9vhejvYE9KpIJtz/ Ma70JBfun30Ty3RPXqyiimxoJG4uwFVtUS4LLF5AfXaP9DN7RoCMIAxuWS6RePYT/ e4JHcwVuCOqJ2r2QV0wlpMMOYhHlRzI7H9TYFuMAmbqughWPC/igmq1Y0LJ9s60m0zOTN/ CAuV0wh3wni45482qcaB0J+ mryM0UZEZw265fm9wdXzsfd5fnmDAeK72ljFoQOGUyD5NZOZuUtbxlNZXKbBVEDHChw8fGJUQYYPBS8S gQSTxf8LhORYgyi /oUAVcOXzGA7TrNDAQ6nXQNpEB8m3ND6130OFHe2+hHZqVH4gi9xN7xL53+ 994Ew3lw0seON0svBvlqCXPpRJrlonMNbJWIqvbqx4ZGBMSBgv1Ev0OyLNrzBhazY6l9eky7kwBSFnaN Wbd8r6ONiQBeX9tfVk5DNITPJS8KthuIyRF0h12C2TRlVF63CjNKmZGnTvi9EXxALIfFF8k8WqyOxz5n sH4ur0EkQB +myeltOv5+G2rrSp4JfL3m1oc/ MXWeTZZQAMYustVPNFYdDIEL9RStVxL7aNR9nuobptlPkIMeyZAPa5DfoFYplzAGamPbqUZfPzJbbsLo QHZj8p /jKCvokOAmaIOTfQB4KRoQN65ceY3CDYG+RRJAk1MoDOAPCqdNlCpg+2QKiIub4Z35pI/AIe/ mp1D6Mdllh12iOqA/P57/ xb93eobNzPqJRLfE8aacmmpI05zTdSNAo5qREADS0P02in0unD8L2oD59gEMYlKcbNaHNyx0PWVdm7DA uyxZyqkLXzdqfivUZpJQsuwgKJG +7gGNDfBEKNkdKaG8scRIbKFs5m+of2iPvm0lZvmhxTQtrGLMIdeueiOmOY8cgnoCGc6PHN2gVa+ 713fo+v+GxVX8z6qkGS7+7Xd+r7u9jDPxWzjuzYr0ZbCU68dNeEPiHSvJU6VYkuNQW88ppnM5F8vGHG+ BGAhXI1PLFFEZtRHhXCj6vhbUcApyU5rBs6GimxZ4Vxt0KJEuyoni7nFmTrB47mQCSAPvAat4VKFpSin 16Wng06NOzqpmlpGH2xi3WkGmT5nFZflLBzus3wc7PYFkuZufCMyf3WCUKb1uvSUnjcvwfv12xl1VAzX L9UD8ec /Tq+69nu83VA4k7yEjlY2feTTrWUna3d/ qZdiTjdMnKmJSVZst7giW8pUIUAmG3iA8qu6EJDNhuNRSv2QfsGNNKjwR342UyfDywfS0TaqZkmahlar jaAhEMTylvhTH56ZhhJzFexVLWYotxEVbqK6hIrgkmB1v0RYHmYRwtnNxzodoZyGZaCHUYJGwTlo6FYw wtIm5hmk4CB8m17 /GA57YJeY4rghdS2U3gn7dO8er4wo8NgL4H9g8L7yXvCrHKsjLFKn16eY0jncUlLErqnv+ JnqPO4UPaiks+ jhz0NnJcZNHCl8qGFflriM2cj4Gg7jZa0Jk4iLtYUtfNQr2TRiAIuQxQFSV9etkDOgd4TM0J9ReDROFd peVdnyPDTwbHfhLCSvSSPyCvozOLdTmBSTNzLIBOrHrtryz76wBE1y5 +tzyEk38FaiiaqIr79kYW9gffwILl3I7C+HbPc9kkYbSOVj8ecdfT7tPTyk75/ kEnVZIv2zUsldJ8z44sXc/ubMesFNd7ghhDuKJPUqcZZ3SJf+6ZjU1ZBYFIN+ BiSGmt6MjB6iIlSxhs7HKZaSh0jgBuzPXGT9YTVyZQOIX8sg9BPI+ ts0zCroQ7ZurwMXzOAjaRGGJxif5WvrX6dq78i+ewOOjdnd+ m13LtavamDQ9I94MEhwMFPUH8zmiaszQGVhqFCw25SzDia+maTFiWNRlkwrAD+ Yoxqyzgb7IBuUcOT6KQhTQRLtwn7KTAXHm3XrECBjIDFQThRAEf5ISZUutPXHH465fofMlF3MCY+ vl3awWbjtV1zqwlw7pk5qm2Z9/zAgKTGEMs0ftv/cnDw69vzvwUZJmjymPJZkXtMH1nmgKkhbDCFE5PI +Mn/BS+Jrb4q/ FH3Qb8GyxxfpkShpHEw80NAmNRICcPc9kMDnDbrtoNMzIh4U1dIXdw0OUYP3CMDpbFBJ6O6Am2ZLJ/If /fyjk0e4yok5YsACIuYyiRMYs9bOSCcTjRgrfUALOdXDNAYaHlARFqnKWOq25il+Vpb+01Ls0b2/ IT0LZok7eC79OS084Hbaqt2/TqeY/ y0qXSPkqu2hLBdINWWvPCo41HnIY9zA9fgFM7ZtIltcy9kRc9wkIa4fyf3Jz/ EiiCOfSlvBAHUhEhYBps0mTFOctwfTbnbx/X2l6W71azJ1wchIEDpwZ/ TX3xS77v7dn7mWgisHIpkjKCuqA4BoVwgKJa7rIC2tlAChsMu5prwjxBtqg1zybJxJPGKGhTq2Xwme+2 +cflj337CirfE2hyOvsdtjl9bMBaffid+3Q+ lhpQaVNSzhf72Y7FKCcjhVvnugtYlE4EZIORuHCO0o4Kh0U05a+ dfL2Lp8pxLFKpPtD3g5wsbLGcpMS5Ur+ VAPaizXM8TBi5jiiOtV5QZakH3h4HZ5ocugkUC10A8VoNywS5IDOvW0dF3Hhhl/ y5SZBnicrvxABD3zKmr/5n/Gj+KPmfSJqZumJh5s+tBz2x+P/yIy4zQrAU14yy/vQAY9/ wsRBXtk6GFhlCmgTyFK98/Z0vEEscVQ1DV6T/3M5J2Z8jUH3OElAtlELENjg4OHGiprjQQvTy8c92T/ xcT1DZsySzbF618fbaqpYbIGL8RvIBhBREAbcMyY1MuCxawVQyGAerRSvBRAex8/ V6lxplYcXALE0G8W8366Qh6NbUf0Jxnz15jkjpuRc3AWaMhLPFT+v3+S6vrfX/ ObAQaGlqnafh611UaX8tRK6teVwPDtMHmoWGfD31+i9DcYukL8Qw4IKovm60f603xx2cBqUTX+ PrMcwczxZbwuwq29vTS8v35K+m/ru/8AgdTNySWqSeqa/N2/S+3Qa+6T66PY4SgR162A/ JgwwDDUNvb17fkNXUyc+CI01dIix+J46Yzz+ SKioh3mPfshuJznXWRSO8ASONU2Qgcwce0VP484Asz63OUwu3E72d17+XyjzCBXz6vZvQ422t61e+ kTEh0tfySXdsg4IG8EAmrtZ22SpAABxvRcwh74HMVAQYcJGJVXnLQHY2DjqLlUnWe/ Ky7Y9XSaXQCyrvyxF7rwgaIXYquNcocd/bz/RMg4IYnzp+ y357L49Lp3WZQpYZIlvPN6wHuzJTLtyikhjY0ViOJwp9FjAZF79dhMUA17pjzSwoEYTzVIQJ7gcd/ W7UjRviLSFZRELpDhBVo86f92MSvupuQDlSBJE1SdDjMoWC1eGQVLZZNEMHaKpKlxywnOCSdvjie4q94 / J25ex05b5s8cv5tpo1QKMbnlb2OMHiVQoOkrBVJA6th8mUyuGdSQQt30AgmZdZbQy4t78GCZ2gJVHh8O yXa2G7klb3fYO0prBTN3WmioTpCpElxXqkh3I7tEaZ5xUpPafjYXLGrrXHYcIRcoFdAO1A2N1yBcRRJc YbZpRMhkgfzf3 +CyVjzaLPGxd2r4vPgYNSWrVOTcWFgjjFx1u15hkJrH3jBaRAuj3i6OO51J94wnX+ TvjrI5o8Jx9Mb2nGii1w9wHDghbjsrYlWH0Hy/ KLXmhcMjoUhPlHjqkY14bXOAF6f9r6yUN3fEXPMdwezRPStbKYEOhIdrIXJYhD4urfn4LD9e1An4BuGY m1PK1cpUZ4jeqVKYLhisYyK48QJEJ4FKq7nnXcHVMJUYFXh60RrQT6gnYUTJRXdnPNBYQshZ87H1X3nr idEg9Jg11Vnx ++y8+/5eboewLCh5P1q6jcipcJSNzi+H1rc3XjXv18fhW2jdmgqbAdztUvjYIAeWwVVOIGID+ 25uOIMnBSvo3PurYcJ5v5KSCamkJCuTsy8MmYaVP8oYicCc6wFzoniZPZvU8R3Zbr0+ 1XZsZEk2apyu50cy0FXoRJL3GkzqY7RDrpQkwJnoeKYct0MIqdy17SuKvUpqc0pfhkYnHvLPymVLTBiW MwjABFTMyjvrQIUYEK3vKwQ4EqWfyk20S0IJyGA7EU74fs28hLhv939TpZnuhtUcDqS1UAeKxi0PWjlm kZGTiIiTYKwpRYzu2ccWdCu3rvpCwRPJgJokNcA5aubFEbSLMPOL qWJIGYkILBjt6++709zeVF8PdtjXhFigico0iIV0dTPmN3ksEamHXdYYENP+UlAEUUyIxi+ 8DrjBbixAociJnPpjWE2of/GlYdy4YTlObx3RF13W75ppvwS1fwjZaaJa9qvZre/ 5W851Nfsbl6EJeZSdbeHQtP9RPJkW+S9N4fYE4G7lXmXmfE6pn1WAaDYMJYqEPlsTpWdP6ZeT5wNot+ hqlR1TyHqx26MBNKuFsidwCNjPNerLsTKElAuLpXHNdMhDKzolPwTzpQdYrOmWoJWDr8KjpeLvpDCUsk IWybdVn61F8MtlZGBcDOi3LYEZJJXsVcY +f6ubh19/ivkVKLel+ eimRym423tfGGDXtan8A0nAuBBuOz8HFBmVSrdiHXL0bJwhdL548IT8DY5LOdgMq52Adxazk0iRDev0i TH6p7AZcWqh +Y8OnGzDouqUtFPFTHo00d0B7hjt6o7EN1MDjYtioI5j0vqfsxHXr+ nQWcbZRhYYh1EjhHboy9spLrEhHgkIvuBGkpxfPwY0KyROZcvu6ArqL5uzLZAEKdFJHcT998i6ihgkKy Zqz1XW ++ aR4SEfZHw7ki2S1p8X2zu5vsfYkXKbGo9I2siM9IFWnEbXHbmoTeGtE1oKtmdRSIuALPodRL0ktEM5Uz fWw2MoQOqVKyYcIWFGxhAvHvIjaiqM98ZBkmH6KzJzAgXOkHmHoGeVulu9chKEPCnvg2vvX6DgG2yVu2 za2fhKJi8cWIbunbtKQdaORhpmGMkjmhERI82Lzf7bar +9rabbPTrotzilCVrvum/ G6s44A29ocqyvK02hPZGHHQAUWIQZDTsTA4KLHPk11gPULixTh9rEHBzCNaemfTOuFtRF5JgCJhH3QjY F9rsuy5 + A23XfmYxPtOGvpPt0BODOOUJNucnAKtpdr6ifCahoBdp8ijiooWzakMVJUZaZ5c3uqhyp9riLqkWkMqp reW /l5X0s+mlufdnkRtw5Nln+D1ftyntb+LhWXcpySuQQQc/ MAxNOIySdVOTNPVTAIiN7tCDBBSCHvjSWWzIHCRV2K7suFiNQCxw1Gj5QwC9D0joPzEzF1QGmTuutzNM SNgIWkqBSDRH1lyB7b6QOuWnFZIB41taW7hyjek2DLZYd33ke9GfzAxzx3tpE6Cd5 +vo1pb/zsuZ61JP75U8sfavh/S7+6eZWKOUqrUWAPpHt2LVMY4GqVYiykQ4WCIORVhoQ8N0+ aUwmJJCYBY2o7qoZLQudhJ30qRbfZzAgzLJCfmvl0k5hICZk54xXNJCFTmr3igc8p2n7EQlqzBGxrM2m bsJxwPQTgVuYk6quViczCUeXm5JqsvVC5Xj0TDhcivkw / gGA16zha7dWRs7vbd9yUeNmewhx5N7sktvKYswDwPJ9fcxNcHSl6e9wBDGXsyO351V76yC8Q8OybZgPT xOrCRlJ2OCBm39mm74hHX5PP8V0QHqgSixBs83bocU5OlSsBL9 +VVywO3MckpJD2XECucLxDBxkRTTBCwjpFmluTY7+Ggpbxl9YZGmW65A5C4KxSY58Gw7cc/ eS29knvbTGvI37t9qu+ h83f9A1vbZw3lKwGBagYBIpL4IZsnzqANGpa32kWNNEsQTRokJvZryDb5kgEzrbtPJ6jpfpwefkJ6QwL zBMWNFu8MZDP8RfzjHnh1w9xxxCWnbDPMdYBzY9wvQmcPcYIANWNVHnhEi7Ee0gCYRgQgRKt1ts5jIvn h8Me4zywg9dbXUWZ2U8HlzlqmR324gpUK5S9lA0x +Ujw0dwj0/I4+7cUB9SCjquBRyd19EnPtkgZaCg5qDvU8VAkGrDjY8kG2JSdPHDXN2L0spGpkp/ jFhRu1FYiEr8a2RmneU5/ tztj9wfEvv3uMV9cKqFZOrzenCUBDbg1h8PWldXFicufzFYBULF3KRg2TzvvlgB4z9XxlL0aFNujyHY5 VE1GuuPNOTMHspgJZWUKFlYhKftw1d5Ar9 /e59D7mWP45orl+ dU90yW623fZQ80nB5kGtkZW96hholuEtcS0INwgBIkmMyvYsQ1t4G1VZckzX7JTDGmGuSvCCKzSaYORY BUAVU + ZxQ3qbGe7ts6gLO3dV2cqN3lQFoRBtQvsIC0Zv1jGebgdyYwKQdpqGDLZd241ipAXO1Q5aU3DIsOKC79 BGiiM7zZTxPRP4egN9mTiXx3faa /CM9jY6lWC5hbpdoc4Z656xcaUHQhVQMlhs5k97yZaGbFmkmTOJh+ WQPZ0wYf1YGCZvHkEHoi9x4b46wY8gP68Z1FJpQ2hyFLGWbA4gNBU5FslPzEczOWt+vqLW/ BDczef9DIfkFxqLdQBPiccwBQayFpaPruqEQIC9IJH48dRququ53eDt9iXeK7mADL/ pT2syraw43seBOCvqM6dzBzUFP4ab33Za03e/OlUybpqYdIu45C40+xl6vc3jW1/ xZFkE3AGV9m7i1GQ4Cv0nnpLjDA0byJPe+gbXF7VrhTfMBEyUM81Zr3icG8yoT7X+ ZOQwVH6LF4tfywTm112Y2amYEB5EunLpW19IXpFB0qFAiuVKBL1sTNS8JAqercc5DZYnU4VUeJlSbMjl GeiUqjkqjTjTWRYzfo0eYQtbPyk06kvnbfJHqdgB0tjqGGg /K03bb5cyOZ7iFwKkJozvreskWkPGfj+ JYn2heEs8nhiYSbg37pdwrooVO71iOvodBFxdGEnhrRqdclL9Ud4N/ a9u96N4ghcIy568fAbgJur4tQ0W5SVmWqV3Xssb7PxilykUgTJJCFSlRZf+ QeONvMppSZESldcKwDhNi7jx5BTtNU6cWKmVhQCLRYvvOdeEkRj/ zB9ljsuzD73Uv6xhfWu1pWroymwCbzPP14YFM6xYBSmeCGOpsFGZGl1G4Y2dvZifAsHTM6BIZjzC7Vun BTrorOctRFhQzXe0OnSGwZsuvUJ3ae91o0vr +NayMwP3Ol7415v9BLP/n8z5xv/Bzjs744tVM3wMWLviHjS7If3Y5xFQhAibHosRw+ gjn2wGPINKXPQvLKIvhNgEvrjDPFj6uzDh44lXhDXlbSu2iISCLdRQkqr1Tcz+ Q59Y4j7z1DvaLFk0fIfWeNtwjUV5hykRYDzteoHyVqfjFPFtLuE9RNGSuD1rk4f1lmmYlKG3mxoifG+ 8x5HMU4DzHHH9G6F0u2ThSbZkpxSYoDVFb8ubwjienav1/HwwEXMi2KfN31jrey+ BuWk6SS6gYRnzHxokVorJGWsE74eTFlVQSLYPMerDLReriilBGgHBqw5FdkrvITFGKqBuqgCqfFaBGeX GpwCToIfyd6eefQNAaKGDHJCPocZgii5F0wCPjScC2GHb7h0xOs9rheQuqRV0WHxiscTWMTwPSeJguhW DihX2pkqae1 jclFBeiScw4qU0cajhfqRTnqprrWlXgEDvxGUHaVPBA7sFWlVxuo3bBWSjY++5fx71IF86482Gbt4c1e / gCmlwMbVYaTb3uJhPAW2eMSTti7QpI1TsQ1crZ6BC5m9dGUzpadCLaBzoBEowFje9oIsoh7l4Dtei5Be RoM1r8juokBtyNzdlscSbpxBJEvPOTecGhR3gVYa9RgcV2EYTGRuoxdQKVXNNyMdf3dg7DzpYacHKS9r 5UiGGFUha2Y3QB1fwuAXwK1dsJbpnNdkHR11rkWZX5qznHDNWmXhSsL4cUc iShsI7y/XI8262gTbDu1b65GnaJM1IQp85/fra+vvBNxfKFV0HD2IgY5/ z7Jqr3D1eqA7nfWVJTYBzJmzjhbT1paSiTEFUcMepbFXGS5KEu8a9m75csATvrThe4QNTh0JdQ5d2hVZ tLyfSQCsli56TWm00FXATFW380 +x3jXMs+vK46SoG8wUVSlvl69fYKtdnQtJzKhhADdYgylsiv4Sgy/ DIUpltXQM0utuHOb4DI8bhmYBN4wYooimrnRNFkZhSSEok6WcYak7CkE6r2sxm/ Bstl5Sq7hyXchj00i22hWg1p3FTwwzhdVBf/4R+ c1dY2BdjrRdT2bUCfZlxeLXFU2oxmiRi6tbn8nKJB1PVKYNL+kgCN1CM4xL8YXupCn9cfjuJAf4w+ arbN/ e6t8tbvbNToPiRhjKEDBuj0irmrfJN1kEr0r0lcJ6gYxI2oXxcCRRHnlHiDnTulNZpjAVICtSMUYclOn y2on70x3 /yQPocFt8IwoNKZYN4fvbKdM7zAtiAsXPYIISoYUOqQRNFzQUuMC23y6aE7T7VD3B4aQVH2em+ jeyxR9xl4L+750yzn2hO2w8m5ofyIi8Ys9qB4S8oi4aedpK3i6shrklAeFkrKoQZkISUOLUupoBqAWW/ Dd5Zoajrp5Cojb0wk5dqpDTgHyx8xPWvJ6AttVoa1i3cSmalupL9goEjKmIClsnqu8E4hx9ZzLTcoldY KAHJUqur3yVV6C9gZ2GSaddtC6wTnIwPhExDUlVbkBv7qO /iIWsdaD8cpzZeDH80+N7C+tnAAApW2YAbQ/QXfQyQH4JHLjzRXFNTX1ps8YzXBuW+ x14Rq283AW1WXblM4muqyu90+Se7d/ YYjQcsn05mOieD1rgTVtm6bt3VmhBTwCtE4CjuE2yjqXCoKVHY5aQ0W+HDgUn4LtXkzjfJlQ/ VQ3a5sCkkYn6DsjKLdqKqTWC5try8ifTT2HiwmiW8KE8oLVTPOrldqB5lJ9UCZLDCXRr14s4MonCjOqA 5kI2mifjq03EYJlyvyPZC9Zd037iVt5RpaBDZyU1Ny1h4sE7rYBPJeEv3lqjMjPpx7HmokziUBCO9zB1 WKT PD8tHdKH1bdA9Adat191fe8l7O9ncIigNyyYo/ lkBmLo2n5hISVGuDWp2xffnV2GYzWH6O52YYZvv97hvsaMOOC7lOAEmFDMPAy5t2AnjOmtLgucI1DphF reZCOYv30si7SMxyXkic9D2XlUoB8qyRr5z9RmAxNRwt9tpjqpBIhT9tQmBpOxIIwIL77gFbMSBm6lNz 3C bL3k8bnHqqfz1KwblaI1JAAMDJ5FQIEI8xV7pLRct8pJ2NLfKf2gdAY4ihEwB15Q6jQft2X2XUn/ eldu1n/B5Ra0U0q2Wtwmm5Oh7D019C8m8Fge3hw/ KLte6btkdHJ622BIA30MrhV97z6WZ3VJiKreunWTLwhSIT0HwUxRD8mfjUzD9Vz0UzeeTemZEltr8gnB ezTPzVWV2JoVEfrZYgrRwu6MvbMZCTGVieLqOpKAGT3q727idTFQXLBgRBNs3Ya9hDl9OrSdTJZtYnO9 JBe5KSd68I6IxuY5ETsY1ATv wldH5C10DxuHWADJ3u4MWHSGCivU+nVKBYuW96e3956Xx2q6bwWhpfturx4g/ h4J6pkiPsVBwnCYcsVN1tSG0rqzemejfFGZLmiIbVLUgy9oa9FqUYTLPpgvCNb0DD7l0QFIQp6pAuXv9 6DFlnrkkkwmX0oQQFmqMHoEhUEyHqckRlHJrsiDp4ylYHe2E +/ 811dDUssyQukPfqWb2lL84dwTMj9bzgCIT2Ke2XObUK2gbHjxuKpCDLF9B1X3r6rkbyUEJUL0zgqnPdD BwmnSdOI6BAY1CkYGCMTn7giPCVlyS +Uq9Vz1ndqzujh+jayq6nylW+/W/rYP+ P0SJxps9arbpb91E9i9FKx8h987dwtV0ldqmTcRqfeMqdWaz3oaqKXBVYbZ8c3VaqO2uCCupAqtoaILS ubtZtzZIItSIAfvXXBdqFTBNWB2kUEJmfR66KWFKgQ2R3FjvlFpqdL0Z5pnZOSSiuKDcA20ordklq4Zp 5nQyiYG Ozzo46kRgb/sadWTouWOuPk9mYmxuIfLBKP+TowihI7zOVhq91El4Q1efaoMznk+Cc+CoNITrXbm6cbD /oKO9v6iXaQytoTv0z2Q/ITvniilvu88U1cvYVjrgfvutb6NIck0cQa0C+fhsVUiNqOHqS0RU/ dcM9QJEMvBcnEV17AdPQgx2doSxhRURKwbFnaQTbZ4WGmUJiytF6AtINOj8v40V6ZX8WlVGJ4pRXJSSR PhNGpGKTnvlWdUX63z7Xs1kysgSb5FMa +m/wAv6/ U8fpGK9VMXdp3QzFcCFRBQaKIv5SOQMgzpZtj2TACpFzmoJeyDya4Kdo9TrLpqbNESYAm7IX7iuYXGaB /kqGDHDAVdMWTUl+oaczLUQK8jFt3VMz2CZ9hoGWnxIPZVIIqvGWiZYB1rk9NbS+/ kgYxLkabwqL1DKfg9crRxQQvNUectayJ06/A0Oybfr8eMxIn2bGQ02+/p/ XGbGYGeqUWfWCyajpXSWAV2tjKzMoRHq1pytKdp37PUKQx1MXRXCXNDEChLrgIBy3H15MmW7QZlIDHWh kFV0Zx7548XwA10nxGflKYGtFgSci5T2KfyJQ6wkAKgFLjdyc2dDyUhs2mrOKFzeZH1twjdmfYgTdTrq tqduzYvaR1QqXv1vu1Wdl2JY1pOa9I7qLhRpIqg1T0WrrKJywdhEtfE4phKYOXH QSXVWQ/OuB+1YMtGacQytjZiS9TFdaSzWBaTM+XXPJDHDK6/ JaSupSFuktcqXPYXMkQu0BZlPEFxUUpSEfOJKvJOqxlbfBU7hnXgPEtDE7zgULl1UozKf1JU/ mpIPTVS6SI6h76m8sn54gVAmcb4mJpPpedrvc1y5/ Pp2fRvSJ9OJr6OKbRJfdu2D1rVkpRDGYVXigijHjBpgkJUIChQGYdjEWdqJGX3MuR6BCovr7v+cNjAbs /ZvCEswTUFC1sZT9yFMUI8VCYSqoEGACmFrkzdiSusohFZcTI8oQSqNtSQ8VkQl0udqP7uz2+ oytZBDv9ek132xTqeEoCGXRBPSZrBDCnpnAVrMoKjSSXwbPnnKh9DWPrHvRudXkMHYIJ6qecPMUj+ SVspGcoUcZHdNRFATOGnhakQIjKw6sg8HoPQH5GTFf3btOjFjzf3P7xceheapGHLAEL9rUFYKLQAacyS cJmszxlcz86v /rIdqg8m266wACMStVCvflkXJMyCDIGXuPbjreUDKAOdQyfeWRSzGvmbtq0YqhlHq7+dEII75JOCD05+ 7HHCQN9A4oLmSKqyl+PXn0GMaohRLTNiPRjFUpcoLdnjxFw+ kGpsVMcDLE6hLgWurg6esjEZfsqTCKVN4R2ML3+zd1+Pxch5ZieXi9nu5gf9i85R+ v7ZPn9ioRQZn0LTEiRkcABwBK/ FvrJvxrlhFIkuS0RjnDAICrjMANK2dS05SBXkWwX9VOs5WhG5nmQftOyEr4YNZDFPCGCSnDYamWc9lmx TUblVVpHPRmYqV +CrJaDPtqIQeI1iCyYONorM0Ntjy28kvdx0nVu9bN0ttv44t97RD9Y+ urGhwfvsRXjnwYIyOkNorxt11i25Kj2JchxtN5GEwedrMlLFATFaTwhgnlK43FTisVFCPZaTnw1UgnuQ fhcXK /3lR7ED6wunLzV8iKSrVfngQSJrHfOTSlxUbLsaU5kICORhxM2QJ4Gw21Dr64LSmVKI4XM/i/13Z+ Cd6eoMNh6vh7LoPzlHBI06Q4POxtPFKlIVCAi4BZGs9c1VvOxRBFbyJF8ZIZNky4b91QB7nqoT3A14KQ PZ +j/ V1F5FkXcvm0zoRzqptdQDW048YqMrpUMnWECmjIMgbIvDCE7mjaQe2NLYyTKRVnJJq7E6raor01ZQplx sn6xcj9 + 1z5l36tKZYl7BaUfDuTcFxKavczkRWlqZAE34QKoAW8asoRnlEHws9ddlCJIPYTw6H3TIPUWCkmhCLIB MUHvgzH3jz90lNJlS8tLQVdPxMeCzVMTODVwd /tIxa4xWtIiGHTwyOuxFQ35bYU77eDqBuxbygGgHZCskk45L+9sPFlTwKev7T+3f/bb/AJ6+ cq9Zrsipl0OlO7kbucaKHqJOOoAr/tSTegnFYGQIe4vGzY331FXgxlnBBW6Bb5ecr4Q70Ecpd+ 5qKDY19rE5/ ICeLR1hMgmpu95cm9B1ROhd4cm2h5KbUaAjAT5w0YpYYnz5KXtFHoVvwPKaQPUXAfqX57IuOlWRLixph 8WlVMPaQ80 +6gHBqptWm3ckmE0y1ADM7qSPVSpaGTsevflirCa0yMLzLLsCeW/ Se0tg3iUmcYyPn11iIsyeSdtVWYhJJilbZjhSWgy/Dfz/OW6kAMoqjHVljxnUPhlNJjB+ Bngr9QKnnrXTVIK+gKbRb9dEnZhDrtodR37ZKTHUmLLn64ZyFUL2yF6/Wrz32RHc+j/ A5H58gPMCjHpT1rLDDsq7KO1e6/DEX6LqTjSaS5+1NUJdyGOnrhn2+oTIaaG8Iaywq/ m5Q0g5ARNZCVsCo9/k0cHk7wl/Kb/grB/yRzwccDK/TrV2F1AGKIc58hPlh9+ OajAUxKBdwaIOvEqGfHN2T/BL/wBuM8P/AB4/P8pHH/sMknQNAk/zm0ufOamvuYlrkhEAuVqx/ acDmFWC3z+alliances consultant/R4lRKKQ3MipmCLTTUfAFqqnWxrQwXW34NOsAg2E0gfSM1QWldEZPym9eTdhX/ LSR119MsdoJoN6+jrrku0CGQdCUVLYDx7Ua5G/o6M4MXH89B9nOS/wAx+s5R/wAi7C/9xairoB0/ SWYO511/3j+fpTDzpdtYT33srGxcpslC1Orh0L0eQVMW9bqYoF4jRNULjEw/JT/OiipfX0/9uRXT/wAD /J2esMSam5qE0NzvPVRlAhJDZA1Pkm98/Hi4fkTObKpL94J67XVaW6a2d/Qva5v7Os+ UQt5KgiNWyuoig1e9EZ7+uKKKldfl+ZhV6+S0/ vYDKTiFKlhhAWUjcBqKQkKWW2w7S8rF333EN9bYKjQbp1OYZb3Nk/ dSHEErBnNYY8QXFbSKlW6U8JJxzck/AA0+rvfz+Oc9km2kn+OfREjkAswOryVNMq3wYFeqZuvd+ 4R6egoWvY7dAOOBa8DutBRocN5hk2p8YlxMBTmvN8l/5LqljxyRo0uyfI6uGmrbbRTQVcHnN4evT/ dOTEOd972nr/RjKvTpnx9pV7UwF8TA4vfdk9hT7y2ORKHck6LRKhkzsvc/4D+ZC2+SPMoFBZmIywu/ MCOOQPp8veGwzEFNYGOoIhTnz92++/lLdZc0szAnGxoHYviCirBDTYIQSqYCeKgtRYCKoT6t2hsv6/ dW5a+Gn/80eo4my6j23hXnOF3n51HDwlJhd+Bmbvbyl6WqqCmP5sdMMvoykto/ pBCZiSz4xZrxcURylxVbrIMEou8zHpfm+4QzUxG6NfNZhsr+cYt+e+/cuGy/ lYOW44wY1a38fV0KwQejslBjgVRdNEXIyqpgHsRTo6R4WsdX8QseId/4/ tPS6lo3Vz0N672Bcm5LkXUAEHz7D4R5TAaKzex48odOXd7cyRhoGEdIoSpxN806JJfOWITLsgSIXQK9E GNKYblEPiIsKjz04XWRltbFwWkOUCMgtaYJAzZRFbODBFk6 /cyAA3Fv1e1RIg9PdG0GsvMvOxDx30f+ aYQ8AILBtfW0C8SsMltsFvCmiNKmnligh4AOvv15FdSVObeg13s88WkZXPkg7PZFfMLsVYILIimYWtAc 4pLOb4h2S /8ASjGr/WdjFHk09zsdkqmGpGP9uJy7IFBiOyzV6+t5yJAAUM1MR6jZs+A7sZYYYFqNwaeVfMpNn+ s1nARZrb9i4RecD5cjpICC+n/wgCZQK5wSKSmbsN+ Kl9hm13qGkCnSkPZIQ1BFLFHZ7ZXZAle2UWGt5Q5NBZW4ntEUX8G1paJvGIhRrpiJA1wOyfnhldTWWi/ Z9V+REuv+ H0Bwu7wHRrWMMjGYzQfZtcaCWeqvocondmGDkYe63ESCO8ew34HnbFavqGDiO2FMQtqKlq2JQfi0aJNw n9r1 /VBS/ fQ4r4t81lxs7YyLBFHSE2MqFGeeQS0IP7IObOHqdOQ3weTqbDBXwAlkV8kprIeAI0GNLRFQK8xlzLzFq +X/UEBfHlw27IUGLPDgRDd7j7NFIL8ZfspF3ClruLPWS3cvVHPhqTdzUTusqGaxZhLMXAT8Bkfb53m27 +Yqmy/pS5nyQnYCsKts/ kbNKO7MGHFSyYQ3LSX47PlGrMLSHaKYDR1Zj0ZAjriZIu4JOrWXHPynqW5LpemVjM/FH/5g24BWDQh0S /0uHuR/OsuTnRc0C2JROiniSvqkmEwQof5yPwTFi554kD5l0cOHdIsUlqFWdlyDTNLU3q2/mgQ2bw3/ jlGjpfH0a9WL2CfpmHJxRgSRVJFoMphPPuoczN6yqWhJTq/pC4TYjkkaJSsd2uTWXbZlKtY+ Ass04Y7mxcyjeG/5J/kCX6/ luZ9EKKiJcarU926NBWLzl2ccyVfHAkWbKTvOKH71UrKlKILTbiI5s6Cxy1EYPCJ7GwIOzGJdAhmqod/ V/maQ+L9MvoO2mG++1pBdbWdF+0W8E+3QzHZrSwtPSYuWVJC52nBW+ Q1O7eQW7ylhc6bGqTfREYTJhMwwhjriZfEDfXqkMpS6KqzlI28qBWhpp68Lu06dxBB3NaInDFWfpeP9t ipGpfRrywZOb2oOIw2d2w8K9lqX6BCmg9sq77jls9Z5gRZk4NummcgmzPH2wJmqK6dsxuQUbQHBQKw +Fe7qdLUv58/XQ6Pt/uTye8aE7fjrFBRHlXdWwGqFOM1ksfF3x3xMQ1TOOfBId3mveNr5BNR8VcMFC3F +j1X9mi1leFRttbwEnfnVFqXRIl4Zh5R3culneFiMhpeJRbY+OPy/JFSo9uq/AC/mctq+ znliljN4OXTDD08zKi1xw0acLh7yK/3wllJJwRtuhpvucEswmyKij0Z/ bC7nEivrfvLWHfe1pEFJbwuykbsMoAtBWGBslccZS9Q5y1+2/wDCv/ Ygpif04mfcmMfq1OYYMeoZCqk3jGa3by3ZzcTKNGAdscAuXafodiY3YcGb9BVHz+OKKNeupKN3nOBPa+ MHJgN1H2ULngdDh2m3wx9A+WWuy0/H0Tr3vTKFdMarkX0Z/ NVmDD5OeT90sWgNPapNXHoSLKUm2iQUU2JAFG9cdQzArN+ KQRObywTDpL8v3DW2wVVzIVED3bBLWFoSXXQx6vogJ6/ 9yUrfs5vv61AvBoDNoeNhAaS6i8t9i97H4T60DbW5fIxw33Htu1xTot1oZukWU8mYNFk8NQcsK0O3W2r q7udq478aDu39mDlS6glGrYBeGeJhZlZSHDNFWl31QCqpkxn7BBltICz6gzSgpR1rj952k8xlJILP15t H0YrYG9MqiYi23tiNUNbPeNq4vMPTM0Lzusd35Od1KwQbnzNC +FvMOagYBiVJvFd7xBWb0YRbD26Z1t2jNl7t9di7eP8ryIHI4r4oJVq+UPsJUlFczSvDRby/ XSn5t9IzAvx/AMl/gQbeNk1aXTs3k6rL7urw4KpbytseSeGKxbQqfQR8e3jjcARiAwoby+ y4xczVx5ba5Z6tfmOUgulogKxjPNfafHhoVYUOfWPSWpdCWckvzh445pB+ 9AV3SAnppWrOabiqVFs62t4aJC6TjkgRAkBXvTGivPThF37TejdCeghO5Zx+Zh9KbIMhijv+ CeaCBpblZHndYIo/ JdTH2G4mJFDRDyEjgwTmqJryZSDSqZf4q7bF569jkx6ODA7IgkeyYWp5cnOieaoRMEQjM1dkHsyQg/ jZhu4ttdfw8cOcFESyp9ZCb1tTFttoaI1QbNQ/UTIFoQzRTNsgXyWFOXFtbukmuYwwuYBCaG6DtVpe+V /h1QYal5eL8+0flhj8mWeszUxILwWdLKCU/v6UYOHZNEUGSzY7WeQABdc+6SK82+ WxqFBJoQIca8UqulaarkECx4WsZRD3YLuV8TJLjTBSVbqCuTv/abvZf+3Hq4T/AHOq+ wUQHujub26jLljzLhffKWi4ouuBWglQiaDFLXglQJyj7FWQL28rJJ1IwkjDPUBbSbtrDbsgcFLZijK1c GFUJZIDmzj8aDBGB5wwH8HIj3UBsBN2Sl8MnZAohn59hVeY8blmtpwd8IzRKYI6sWc3zp /rTNH6rlxXCKVXO8LIfOTQvpkJPaUtYiBtQCQeOYsQOMBgz3+0v/So/eWXZR2B+J/+ rFEodo72znv0yyk9GH5sMQwXWCSOSKlljf4UF81rEFLZNiGkxQp8A9MlgZcPkNVYPvaXj6RWTY9zmrVo hJowlkuFNs1M0hyeEbVQ93ie9fDsw3kLJssvpoKNMoN1eh0Z8AQzWmSI0HieJhYsc2PCedhkVSW6MpDd ntdEjV3XNVXBqxSrKJMBiAeMONYGB5yoDp04rDwWrMdBAQk +UzWnqkyhCO6lEATNvlnK2D9KVFLCMq1l/he6FvaOlJVwthFHbp9sJEbCtcOXXUb7jgIdra7A50oLz/ hy/wAJeTO+MZOHUFsknJMR/JaDbMXqQZ5opfxtDK7CvhWXVN+PL70QigrONQ1pneN55h2VskhS0jx/ AA3/ ND1SyquVScmgbGPvZSPRvn4SStwDMkysoGVXOUKFZWO84L0qPBAKxixgi1PPLuhWlHUarxbwk8fQ7uIH kKZpJ563o2rFHXDeMGZHQRDXTESZWAXL0JbbdNNDmauHPAdlTE7b2 +jrsZa6epcwWTBZahorovo5l/6+NVh6AZz5z/niw4D0eRpmalRrEolvi+ eezlu7MX0QI0whdHmqRSCbtG7wzMXPVFSpZAcIZMaMzFySQbTTlFAw8x3Ee5x1Rdhedx9gMpD7N7whht phDbVB6DtY8zoIxjuMg5qEHvMBiezuaz4yal4Nd /U4mRm0YmJtUkd/yP/Z
--- NOTE | 2016-04-08 13:50 | Progress Note ---
Assessment and Plan Assessment and plan: 55 Yo male with HTN, DM, PAD, CAD S/P CABG, Nicotine Dependence, Metabolic Syndrome, diabetic Foot admitted for right Transmetatarsal amputation 04/02/16. Pt denies fever, chills, CP, Palpitation, NVD, shortness of breath, productive cough, or skin rashes. Assessment * Diabetic foot with severe PVD * Status post TMA * S/P cystoscopy debridement of skin and muscle and soft tissue of the right TMA * Diabetes mellitus- mildly elevated tdoay * PVD * PAD * HTN * Leukocytosis Plan * Continue wound dressing s/p debridement by planned by surgery. * Continue meropenem 1 g IV twice daily as started by surgeon based on discussion with Dr. Carbajal on the culture that grew. No growth in cultures done here yet. * Leukocytosis improving * Restart home dose glimepiride * DVT and GI prophylaxis * Plan discussed with the patient * Patient is stable from my standpoint for discharge History Interval history: Follow-up diabetes He is status post TMA and today also excisional debridement of skin and muscle and soft tissue of the right TMA Patient seen and examined this morning in no acute distress Denies any chest pain, nausea, vomiting, diarrhea No fever noted blood pressure controlled No adverse events reported to me by nursing staff Hospitalist Physical - Physical exam Narrative exam: VITAL SIGNS: Reviewed. GENERAL: The patient appeared well nourished and normally developed. Vital signs as documented. HEAD: No signs of head trauma. EYES: Pupils are equal. Extraocular motions intact. EARS: Hearing grossly intact. MOUTH: Oropharynx is normal. NECK: No adenopathy, no JVD. CHEST: Chest with clear breath sounds bilaterally. No wheezes, rales, or rhonchi. CARDIAC: Regular rate and rhythm. S1 and S2, without murmurs, gallops, or rubs. VASCULAR: No Edema. Peripheral pulses diminished in lower extremities. ABDOMEN: Soft, without detectable tenderness. No sign of distention. No rebound or guarding, and no masses palpated. Bowel Sounds normal. MUSCULOSKELETAL: Good range of motion of all major joints. Right TMA NEUROLOGIC EXAM: Alert and oriented x 3. No focal sensory or strength deficits. Speech normal. Follows commands. PSYCHIATRIC: Mood normal. SKIN: Right Lower extremity with wound dressing in place no overt drainage noted to the Maury bandage. - Constitutional Vitals: Temp Pulse Resp BP Pulse Ox 99.2 F 72 18 128/60 98 04/08/16 08:00 04/08/16 09:54 04/08/16 08:00 04/08/16 09:54 04/08/16 08:00 General appearance: Present: no acute distress Results - Labs CBC & Chem 7: 04/07/16 05:30 04/03/16 04:51 Labs: Laboratory Last Values WBC 13.0 K/mm3 (4.5-11.0) H 04/07/16 05:30 RBC 3.95 M/mm3 (3.65-5.03) 04/07/16 05:30 Hgb 10.7 gm/dl (11.8-15.2) L 04/07/16 05:30 Hct 32.8 % (35.5-45.6) L 04/07/16 05:30 MCV 83 fl (84-94) L 04/07/16 05:30 MCH 27 pg (28-32) L 04/07/16 05:30 MCHC 33 % (32-34) 04/07/16 05:30 RDW 14.1 % (13.2-15.2) 04/07/16 05:30 Plt Count 317 K/mm3 (140-440) 04/07/16 05:30 Lymph % (Auto) 16.7 % (13.4-35.0) 04/07/16 05:30 Cottle % (Auto) 7.3 % (0.0-7.3) 04/07/16 05:30 Eos % (Auto) 1.8 % (0.0-4.3) 04/07/16 05:30 Baso % (Auto) 0.7 % (0.0-1.8) 04/07/16 05:30 Lymph # 2.2 K/mm3 (1.2-5.4) 04/07/16 05:30 Cottle # 0.9 K/mm3 (0.0-0.8) H 04/07/16 05:30 Eos # 0.2 K/mm3 (0.0-0.4) 04/07/16 05:30 Baso # 0.1 K/mm3 (0.0-0.1) 04/07/16 05:30 Seg Neutrophils % 73.5 % (40.0-70.0) H 04/07/16 05:30 Seg Neutrophils # 9.6 K/mm3 (1.8-7.7) H 04/07/16 05:30 PT 13.9 Sec. (12.2-14.9) 04/02/16 06:45 INR 1.08 (0.87-1.13) 04/02/16 06:45 Sodium 137 mmol/L (137-145) 04/03/16 04:51 Potassium 4.3 mmol/L (3.6-5.0) 04/03/16 04:51 Chloride 101.6 mmol/L (98-107) 04/03/16 04:51 Carbon Dioxide 22 mmol/L (22-30) 04/03/16 04:51 Anion Gap 18 mmol/L 04/03/16 04:51 BUN 16 mg/dL (9-20) 04/03/16 04:51 Creatinine 1.3 mg/dL (0.8-1.5) 04/03/16 04:51 Estimated GFR 58 ml/min 04/03/16 04:51 BUN/Creatinine Ratio 12.30 % 04/03/16 04:51 Glucose 207 mg/dL (75-100) H 04/03/16 04:51 POC Glucose 235 (70-105) H 04/08/16 11:38 Calcium 8.0 mg/dL (8.4-10.2) L 04/03/16 04:51
[2016-04-08] MEDS: AMARYL PO SCH (16:28)
[2016-04-09] MEDS: MERREM/NS 500 MG/50 ML 50 ML IV SCH ×4 (00:05→17:25)
[2016-04-09] MEDS: DILAUDID IV PRN ×2 (01:45→13:13)
[2016-04-09] MEDS: NORCO 5/325 PO PRN ×2 (06:40→21:10)
[2016-04-09] MEDS: NOVOLOG SUB-Q SCH ×4 (08:43→22:00)
[2016-04-09] MEDS: AMARYL PO SCH (08:54)
[2016-04-09] MEDS: NORVASC PO SCH (10:59)
[2016-04-09] MEDS: PLAVIX PO SCH (10:59)
[2016-04-09] MEDS: PROTONIX PO SCH (10:59)
[2016-04-09] MEDS: LOVENOX SUB-Q SCH (11:00)
--- NOTE | 2016-04-09 12:16 | Progress Note ---
Assessment and Plan Assessment and plan: 55 Yo male with HTN, DM, PAD, CAD S/P CABG, Nicotine Dependence, Metabolic Syndrome, diabetic Foot admitted for right Transmetatarsal amputation 04/02/16. Pt denies fever, chills, CP, Palpitation, NVD, shortness of breath, productive cough, or skin rashes. Assessment * Diabetic foot with severe PVD * Status post TMA * S/P cystoscopy debridement of skin and muscle and soft tissue of the right TMA * Diabetes mellitus- mildly elevated tdoay * PVD * PAD * HTN * Leukocytosis Plan * Continue wound dressing s/p debridement. * Continue meropenem 1 g IV twice daily as started by surgeon based on discussion with Dr. Carbajal on the culture that grew. No growth in cultures done here yet. * Leukocytosis improving * blood glucose was low, reduce sliding scale insulin to low dose, continue glimepiride * DVT and GI prophylaxis * Plan discussed with the patient * Patient is stable from my standpoint for discharge History Interval history: Follow-up diabetes He is status post TMA and today also excisional debridement of skin and muscle and soft tissue of the right TMA Patient seen and examined this morning in no acute distress Denies any chest pain, nausea, vomiting, diarrhea No fever noted blood pressure controlled No adverse events reported to me by nursing staff Hospitalist Physical - Physical exam Narrative exam: VITAL SIGNS: Reviewed. GENERAL: The patient appeared well nourished and normally developed. Vital signs as documented. HEAD: No signs of head trauma. EYES: Pupils are equal. Extraocular motions intact. EARS: Hearing grossly intact. MOUTH: Oropharynx is normal. NECK: No adenopathy, no JVD. CHEST: Chest with clear breath sounds bilaterally. No wheezes, rales, or rhonchi. CARDIAC: Regular rate and rhythm. S1 and S2, without murmurs, gallops, or rubs. VASCULAR: No Edema. Peripheral pulses diminished in lower extremities. ABDOMEN: Soft, without detectable tenderness. No sign of distention. No rebound or guarding, and no masses palpated. Bowel Sounds normal. MUSCULOSKELETAL: Good range of motion of all major joints. Right TMA NEUROLOGIC EXAM: Alert and oriented x 3. No focal sensory or strength deficits. Speech normal. Follows commands. PSYCHIATRIC: Mood normal. SKIN: Right Lower extremity with wound dressing in place no overt drainage noted to the Maury bandage. - Constitutional Vitals: Temp Pulse Resp BP Pulse Ox 98.8 F 88 20 125/67 98 04/09/16 08:00 04/09/16 10:59 04/09/16 10:00 04/09/16 10:59 04/09/16 10:00 General appearance: Present: no acute distress Results - Labs CBC & Chem 7: 04/07/16 05:30 04/03/16 04:51 Labs: Laboratory Last Values WBC 13.0 K/mm3 (4.5-11.0) H 04/07/16 05:30 RBC 3.95 M/mm3 (3.65-5.03) 04/07/16 05:30 Hgb 10.7 gm/dl (11.8-15.2) L 04/07/16 05:30 Hct 32.8 % (35.5-45.6) L 04/07/16 05:30 MCV 83 fl (84-94) L 04/07/16 05:30 MCH 27 pg (28-32) L 04/07/16 05:30 MCHC 33 % (32-34) 04/07/16 05:30 RDW 14.1 % (13.2-15.2) 04/07/16 05:30 Plt Count 317 K/mm3 (140-440) 04/07/16 05:30 Lymph % (Auto) 16.7 % (13.4-35.0) 04/07/16 05:30 [place] % (Auto) 7.3 % (0.0-7.3) 04/07/16 05:30 Eos % (Auto) 1.8 % (0.0-4.3) 04/07/16 05:30 Baso % (Auto) 0.7 % (0.0-1.8) 04/07/16 05:30 Lymph # 2.2 K/mm3 (1.2-5.4) 04/07/16 05:30 [place] # 0.9 K/mm3 (0.0-0.8) H 04/07/16 05:30 Eos # 0.2 K/mm3 (0.0-0.4) 04/07/16 05:30 Baso # 0.1 K/mm3 (0.0-0.1) 04/07/16 05:30 Seg Neutrophils % 73.5 % (40.0-70.0) H 04/07/16 05:30 Seg Neutrophils # 9.6 K/mm3 (1.8-7.7) H 04/07/16 05:30 PT 13.9 Sec. (12.2-14.9) 04/02/16 06:45 INR 1.08 (0.87-1.13) 04/02/16 06:45 Sodium 137 mmol/L (137-145) 04/03/16 04:51 Potassium 4.3 mmol/L (3.6-5.0) 04/03/16 04:51 Chloride 101.6 mmol/L (98-107) 04/03/16 04:51 Carbon Dioxide 22 mmol/L (22-30) 04/03/16 04:51 Anion Gap 18 mmol/L 04/03/16 04:51 BUN 16 mg/dL (9-20) 04/03/16 04:51 Creatinine 1.3 mg/dL (0.8-1.5) 04/03/16 04:51 Estimated GFR 58 ml/min 04/03/16 04:51 BUN/Creatinine Ratio 12.30 % 04/03/16 04:51 Glucose 207 mg/dL (75-100) H 04/03/16 04:51 POC Glucose 200 (70-105) H 04/09/16 11:22 Calcium 8.0 mg/dL (8.4-10.2) L 04/03/16 04:51
[2016-04-09] MEDS ORDERED: SENOKOT PO PRN (13:33)
--- NOTE | 2016-04-09 14:46 | Progress Note ---
Assessment and Plan Patient is status post transmetatarsal amputation with subsequent re- debridement. Patient was reported to have Pseudomonas cultures as an outpatient. Outpatient antibiotic orders were continued as an inpatient. His wound VAC was converted to a silver dressing, and subsequently [place]-soaked gauze dressings. We'll continue this over the weekend. An converted back to a wound VAC prior to discharge. Discharge planning for home wound VAC and progress. Discharge home once wound VAC is approved. - Patient Problems (1) Diabetic foot ulcer associated with diabetes mellitus due to underlying condition Current Visit: Yes Status: Acute Qualifiers: Laterality: right Qualified Code(s): E08.621 - Diabetes mellitus due to underlying condition with foot ulcer; L97.519 - Non-pressure chronic ulcer of other part of right foot with unspecified severity (2) Atherosclerosis of [place] arteries of the extremities with ulceration Current Visit: Yes Status: Acute Subjective Date of service: 04/09/16 Principal diagnosis: gangrene Interval history: Patient is awake and alert without specific complaint at present. Incisional pain is adequately tolerated with analgesics. Objective - Constitutional Vitals: Vital Signs - 12hr 04/09/16 04/09/16 04/09/16 08:00 10:00 10:59 Temperature 98.8 F Pulse Rate 88 Pulse Rate [ 88 88 Brachial] Respiratory 20 20 Rate Blood Pressure 125/67 Blood Pressure 125/67 [Left Arm] O2 Sat by Pulse 98 98 Oximetry General appearance: Present: no acute distress - EENT Eyes: EOM intact ENT: hearing intact - Neck Neck: supple - Respiratory Respiratory effort: normal Extremities: normal temperature, abnormal (bandages are clean dry and intact. No apparent bleed through following dressing change yesterday.) - Neurologic Neurologic: no focal deficits - Psychiatric Psychiatric: appropriate mood/affect, intact judgment & insight, cooperative - Labs CBC & Chem 7: 04/07/16 05:30 04/03/16 04:51 Labs: Abnormal lab results 04/08/16 04/08/16 04/09/16 Range/Units 16:04 22:07 11:22 POC Glucose 232 H 190 H 200 H (70-105)
[2016-04-09] MEDS: COLACE PO SCH (22:00)
[2016-04-10] MEDS: MERREM/NS 500 MG/50 ML 50 ML IV SCH ×4 (06:00→17:49)
--- NOTE | 2016-04-10 09:11 | Progress Note ---
Assessment and Plan Assessment and plan: 55 Yo male with HTN, DM, PAD, CAD S/P CABG, Nicotine Dependence, Metabolic Syndrome, diabetic Foot admitted for right Transmetatarsal amputation 04/02/16. Pt denies fever, chills, CP, Palpitation, NVD, shortness of breath, productive cough, or skin rashes. Assessment * Diabetic foot with severe PVD * Status post TMA * S/P cystoscopy debridement of skin and muscle and soft tissue of the right TMA * Diabetes mellitus- mildly elevated tdoay * PVD * PAD * HTN * Leukocytosis Plan * No new complaints pending wound VAC placement * Continue wound dressing s/p debridement. * Continue meropenem 1 g IV twice daily as started by surgeon based on discussion with Dr. Carbajal on the culture that grew. No growth in cultures done here yet. * Remains afebrile * Continue insulin sliding scale, continue glimepiride * DVT and GI prophylaxis * Plan discussed with the patient * Patient is stable from my standpoint for discharge History Interval history: Follow-up diabetes He is status post TMA and today also excisional debridement of skin and muscle and soft tissue of the right TMA Patient seen and examined this morning in no acute distress Denies any chest pain, nausea, vomiting, diarrhea No fever noted blood pressure controlled No adverse events reported to me by nursing staff Hospitalist Physical - Physical exam Narrative exam: VITAL SIGNS: Reviewed. GENERAL: The patient appeared well nourished and normally developed. Vital signs as documented. HEAD: No signs of head trauma. EYES: Pupils are equal. Extraocular motions intact. EARS: Hearing grossly intact. MOUTH: Oropharynx is normal. NECK: No adenopathy, no JVD. CHEST: Chest with clear breath sounds bilaterally. No wheezes, rales, or rhonchi. CARDIAC: Regular rate and rhythm. S1 and S2, without murmurs, gallops, or rubs. VASCULAR: No Edema. Peripheral pulses diminished in lower extremities. ABDOMEN: Soft, without detectable tenderness. No sign of distention. No rebound or guarding, and no masses palpated. Bowel Sounds normal. MUSCULOSKELETAL: Good range of motion of all major joints. Right TMA NEUROLOGIC EXAM: Alert and oriented x 3. No focal sensory or strength deficits. Speech normal. Follows commands. PSYCHIATRIC: Mood normal. SKIN: Right Lower extremity with wound dressing in place no overt drainage noted to the Maury bandage. - Constitutional Vitals: Temp Pulse Resp BP Pulse Ox 98.7 F 83 20 114/59 99 04/10/16 07:40 04/10/16 07:40 04/10/16 07:40 04/10/16 07:40 04/09/16 23:05 General appearance: Present: no acute distress Results - Labs CBC & Chem 7: 04/07/16 05:30 04/03/16 04:51 Labs: Laboratory Last Values WBC 13.0 K/mm3 (4.5-11.0) H 04/07/16 05:30 RBC 3.95 M/mm3 (3.65-5.03) 04/07/16 05:30 Hgb 10.7 gm/dl (11.8-15.2) L 04/07/16 05:30 Hct 32.8 % (35.5-45.6) L 04/07/16 05:30 MCV 83 fl (84-94) L 04/07/16 05:30 MCH 27 pg (28-32) L 04/07/16 05:30 MCHC 33 % (32-34) 04/07/16 05:30 RDW 14.1 % (13.2-15.2) 04/07/16 05:30 Plt Count 317 K/mm3 (140-440) 04/07/16 05:30 Lymph % (Auto) 16.7 % (13.4-35.0) 04/07/16 05:30 [place] % (Auto) 7.3 % (0.0-7.3) 04/07/16 05:30 Eos % (Auto) 1.8 % (0.0-4.3) 04/07/16 05:30 Baso % (Auto) 0.7 % (0.0-1.8) 04/07/16 05:30 Lymph # 2.2 K/mm3 (1.2-5.4) 04/07/16 05:30 [place] # 0.9 K/mm3 (0.0-0.8) H 04/07/16 05:30 Eos # 0.2 K/mm3 (0.0-0.4) 04/07/16 05:30 Baso # 0.1 K/mm3 (0.0-0.1) 04/07/16 05:30 Seg Neutrophils % 73.5 % (40.0-70.0) H 04/07/16 05:30 Seg Neutrophils # 9.6 K/mm3 (1.8-7.7) H 04/07/16 05:30 PT 13.9 Sec. (12.2-14.9) 04/02/16 06:45 INR 1.08 (0.87-1.13) 04/02/16 06:45 Sodium 137 mmol/L (137-145) 04/03/16 04:51 Potassium 4.3 mmol/L (3.6-5.0) 04/03/16 04:51 Chloride 101.6 mmol/L (98-107) 04/03/16 04:51 Carbon Dioxide 22 mmol/L (22-30) 04/03/16 04:51 Anion Gap 18 mmol/L 04/03/16 04:51 BUN 16 mg/dL (9-20) 04/03/16 04:51 Creatinine 1.3 mg/dL (0.8-1.5) 04/03/16 04:51 Estimated GFR 58 ml/min 04/03/16 04:51 BUN/Creatinine Ratio 12.30 % 04/03/16 04:51 Glucose 207 mg/dL (75-100) H 04/03/16 04:51 POC Glucose 188 (70-105) H 04/10/16 08:08 Calcium 8.0 mg/dL (8.4-10.2) L 04/03/16 04:51
[2016-04-10] MEDS: AMARYL PO SCH (09:19)
[2016-04-10] MEDS: NOVOLOG SUB-Q SCH ×4 (09:19→22:19)
[2016-04-10] MEDS: NORCO 5/325 PO PRN ×2 (09:25→17:49)
[2016-04-10] MEDS: PLAVIX PO SCH (10:15)
[2016-04-10] MEDS: PROTONIX PO SCH (10:15)
[2016-04-10] MEDS: NORVASC PO SCH (10:15)
[2016-04-10] MEDS: LOVENOX SUB-Q SCH (10:17)
[2016-04-10] MEDS: COLACE PO SCH ×2 (10:18→22:18)
[2016-04-10] MEDS: DILAUDID IV PRN ×2 (10:20→14:20)
--- NOTE | 2016-04-10 12:11 | Progress Note ---
Subjective Principal diagnosis: gangrene Interval history: Patient seen at the bedside. No new events. Dressing changed by wound care daily. Patient is medically stable, awaiting VAC arrival prior to discharge. Objective - Constitutional Vitals: Vital Signs - 12hr 04/10/16 04/10/16 07:40 10:15 Temperature 98.7 F Pulse Rate 83 Pulse Rate [ 83 Right Radial] Respiratory 20 Rate Blood Pressure 114/59 Blood Pressure 114/59 [Left Arm] - Labs CBC & Chem 7: 04/07/16 05:30 04/03/16 04:51 Labs: Abnormal lab results 04/09/16 04/09/16 04/10/16 Range/Units 16:21 21:12 08:08 POC Glucose 227 H 221 H 188 H (70-105)
[2016-04-11] MEDS: MERREM/NS 500 MG/50 ML 50 ML IV SCH ×4 (00:06→18:30)
[2016-04-11] MEDS: DILAUDID IV PRN ×2 (01:15→19:46)
[2016-04-11] MEDS: NORCO 5/325 PO PRN ×3 (01:58→18:45)
[2016-04-11] MEDS: NOVOLOG SUB-Q SCH ×4 (08:00→21:45)
[2016-04-11] MEDS: AMARYL PO SCH (08:50)
[2016-04-11] MEDS: PROTONIX PO SCH (09:58)
[2016-04-11] MEDS: PLAVIX PO SCH (09:58)
[2016-04-11] MEDS: COLACE PO SCH ×2 (09:58→21:45)
[2016-04-11] MEDS: NORVASC PO SCH (09:58)
[2016-04-11] MEDS: LOVENOX SUB-Q SCH (09:58)
--- NOTE | 2016-04-11 11:24 | Progress Note ---
Subjective Date of service: 04/11/16 Principal diagnosis: gangrene Interval history: Patient seen at the bedside. No new events. Dressing changed by wound care daily. Patient is medically stable, awaiting VAC arrival prior to discharge. Objective - Constitutional Vitals: Vital Signs - 12hr 04/11/16 04/11/16 04/11/16 00:00 01:15 01:45 Temperature 97.9 F Pulse Rate [ Apical] Pulse Rate [ 65 Left Brachial] Respiratory 18 20 20 Rate Blood Pressure 152/72 [Left Arm] O2 Sat by Pulse 99 Oximetry 04/11/16 04/11/16 04/11/16 01:58 02:58 08:00 Temperature 97.7 F Pulse Rate [ 74 Apical] Pulse Rate [ Left Brachial] Respiratory 20 18 18 Rate Blood Pressure 112/67 [Left Arm] O2 Sat by Pulse 98 Oximetry - Labs CBC & Chem 7: 04/07/16 05:30 04/03/16 04:51 Labs: Abnormal lab results 04/10/16 04/10/16 04/11/16 Range/Units 16:36 20:54 08:07 POC Glucose 155 H 185 H 133 H (70-105)
--- NOTE | 2016-04-11 13:09 | Progress Note ---
Assessment and Plan Assessment and plan: 55 Yo male with HTN, DM, PAD, CAD S/P CABG, Nicotine Dependence, Metabolic Syndrome, diabetic Foot admitted for right Transmetatarsal amputation 04/02/16. Pt denies fever, chills, CP, Palpitation, NVD, shortness of breath, productive cough, or skin rashes. Assessment * Diabetic foot with severe PVD * Status post TMA * S/P cystoscopy debridement of skin and muscle and soft tissue of the right TMA * Diabetes mellitus * PVD * PAD * HTN * Leukocytosis Plan * No new complaints pending wound VAC placement * Continue wound dressing s/p debridement. * Continue meropenem 1 g IV twice daily as started by surgeon based on discussion with Dr. Carbajal on the culture that grew. No growth in cultures done here yet. * Remains afebrile * Blood sugar stable Continue insulin sliding scale, continue glimepiride * DVT and GI prophylaxis * Plan discussed with the patient * Patient is stable from my standpoint for discharge History Interval history: Follow-up diabetes He is status post TMA and excisional debridement of skin and muscle and soft tissue of the right TMA awaiting wound VAC Patient seen and examined this morning in no acute distress Denies any chest pain, nausea, vomiting, diarrhea No fever noted blood pressure controlled No adverse events reported to me by nursing staff Hospitalist Physical - Physical exam Narrative exam: VITAL SIGNS: Reviewed. GENERAL: The patient appeared well nourished and normally developed. Vital signs as documented. HEAD: No signs of head trauma. EYES: Pupils are equal. Extraocular motions intact. EARS: Hearing grossly intact. MOUTH: Oropharynx is normal. NECK: No adenopathy, no JVD. CHEST: Chest with clear breath sounds bilaterally. No wheezes, rales, or rhonchi. CARDIAC: Regular rate and rhythm. S1 and S2, without murmurs, gallops, or rubs. VASCULAR: No Edema. Peripheral pulses diminished in lower extremities. ABDOMEN: Soft, without detectable tenderness. No sign of distention. No rebound or guarding, and no masses palpated. Bowel Sounds normal. MUSCULOSKELETAL: Good range of motion of all major joints. Right TMA NEUROLOGIC EXAM: Alert and oriented x 3. No focal sensory or strength deficits. Speech normal. Follows commands. PSYCHIATRIC: Mood normal. SKIN: Right Lower extremity with wound dressing in place no overt drainage noted to the Maury bandage. - Constitutional Vitals: Temp Pulse Resp BP Pulse Ox 97.7 F 74 18 112/67 98 04/11/16 08:00 04/11/16 08:00 04/11/16 08:00 04/11/16 08:00 04/11/16 08:00 General appearance: Present: no acute distress Results - Labs CBC & Chem 7: 04/07/16 05:30 04/03/16 04:51 Labs: Laboratory Last Values WBC 13.0 K/mm3 (4.5-11.0) H 04/07/16 05:30 RBC 3.95 M/mm3 (3.65-5.03) 04/07/16 05:30 Hgb 10.7 gm/dl (11.8-15.2) L 04/07/16 05:30 Hct 32.8 % (35.5-45.6) L 04/07/16 05:30 MCV 83 fl (84-94) L 04/07/16 05:30 MCH 27 pg (28-32) L 04/07/16 05:30 MCHC 33 % (32-34) 04/07/16 05:30 RDW 14.1 % (13.2-15.2) 04/07/16 05:30 Plt Count 317 K/mm3 (140-440) 04/07/16 05:30 Lymph % (Auto) 16.7 % (13.4-35.0) 04/07/16 05:30 [place] % (Auto) 7.3 % (0.0-7.3) 04/07/16 05:30 Eos % (Auto) 1.8 % (0.0-4.3) 04/07/16 05:30 Baso % (Auto) 0.7 % (0.0-1.8) 04/07/16 05:30 Lymph # 2.2 K/mm3 (1.2-5.4) 04/07/16 05:30 [place] # 0.9 K/mm3 (0.0-0.8) H 04/07/16 05:30 Eos # 0.2 K/mm3 (0.0-0.4) 04/07/16 05:30 Baso # 0.1 K/mm3 (0.0-0.1) 04/07/16 05:30 Seg Neutrophils % 73.5 % (40.0-70.0) H 04/07/16 05:30 Seg Neutrophils # 9.6 K/mm3 (1.8-7.7) H 04/07/16 05:30 PT 13.9 Sec. (12.2-14.9) 04/02/16 06:45 INR 1.08 (0.87-1.13) 04/02/16 06:45 Sodium 137 mmol/L (137-145) 04/03/16 04:51 Potassium 4.3 mmol/L (3.6-5.0) 04/03/16 04:51 Chloride 101.6 mmol/L (98-107) 04/03/16 04:51 Carbon Dioxide 22 mmol/L (22-30) 04/03/16 04:51 Anion Gap 18 mmol/L 04/03/16 04:51 BUN 16 mg/dL (9-20) 04/03/16 04:51 Creatinine 1.3 mg/dL (0.8-1.5) 04/03/16 04:51 Estimated GFR 58 ml/min 04/03/16 04:51 BUN/Creatinine Ratio 12.30 % 04/03/16 04:51 Glucose 207 mg/dL (75-100) H 04/03/16 04:51 POC Glucose 170 (70-105) H 04/11/16 11:47 Calcium 8.0 mg/dL (8.4-10.2) L 04/03/16 04:51
[2016-04-12] MEDS: MERREM/NS 500 MG/50 ML 50 ML IV SCH ×4 (00:30→17:56)
[2016-04-12] MEDS: DILAUDID IV PRN ×5 (01:02→21:45)
[2016-04-12] MEDS: NORCO 5/325 PO PRN ×3 (05:17→17:57)
[2016-04-12] MEDS: NOVOLOG SUB-Q SCH ×3 (08:20→16:40)
[2016-04-12] MEDS: AMARYL PO SCH (10:38)
[2016-04-12] MEDS: COLACE PO SCH ×2 (10:38→21:45)
[2016-04-12] MEDS: PROTONIX PO SCH (10:39)
[2016-04-12] MEDS: LOVENOX SUB-Q SCH (10:39)
[2016-04-12] MEDS: PLAVIX PO SCH (10:39)
--- NOTE | 2016-04-12 11:59 | Progress Note ---
Assessment and Plan Patient status post TMA with subsequent revision. Antibiotics per the outpatient orders written by the patient's infection disease physicians. Await home wound VAC approval. Discharge once arrangements completed. Another wound VAC form signed by the physician. - Patient Problems (1) Diabetic foot ulcer associated with diabetes mellitus due to underlying condition Current Visit: Yes Status: Acute Qualifiers: Laterality: right Qualified Code(s): E08.621 - Diabetes mellitus due to underlying condition with foot ulcer; L97.519 - Non-pressure chronic ulcer of other part of right foot with unspecified severity (2) Atherosclerosis of [place] arteries of the extremities with ulceration Current Visit: Yes Status: Acute Subjective Date of service: 04/12/16 Principal diagnosis: gangrene Interval history: Patient is awake and alert without specific complaint at present. Objective - Constitutional Vitals: Vital Signs - 12hr 04/12/16 04/12/16 04/12/16 00:00 01:02 01:32 Temperature 97.3 F L Pulse Rate [ Apical] Pulse Rate [ 85 Left Brachial] Respiratory 18 20 16 Rate Blood Pressure 138/73 [Left Arm] O2 Sat by Pulse 98 Oximetry 04/12/16 04/12/16 05:17 08:00 Temperature 98.0 F Pulse Rate [ 68 Apical] Pulse Rate [ Left Brachial] Respiratory 20 16 Rate Blood Pressure 131/62 [Left Arm] O2 Sat by Pulse 100 Oximetry General appearance: Present: no acute distress - EENT Eyes: EOM intact ENT: hearing intact - Neck Neck: supple - Respiratory Respiratory effort: normal Extremities: abnormal (wound VAC was placed earlier today.) - Neurologic Neurologic: no focal deficits - Psychiatric Psychiatric: appropriate mood/affect, intact judgment & insight, cooperative - Labs CBC & Chem 7: 04/07/16 05:30 04/03/16 04:51 Labs: Abnormal lab results 04/11/16 04/11/16 04/12/16 Range/Units 16:08 20:52 08:14 POC Glucose 177 H 166 H 143 H (70-105) 04/12/16 Range/Units 11:23 POC Glucose 193 H (70-105)
--- NOTE | 2016-04-12 13:42 | Progress Note ---
Assessment and Plan Assessment and plan: 55 Yo male with HTN, DM, PAD, CAD S/P CABG, Nicotine Dependence, Metabolic Syndrome, diabetic Foot admitted for right Transmetatarsal amputation 04/02/16. Pt denies fever, chills, CP, Palpitation, NVD, shortness of breath, productive cough, or skin rashes. Assessment * Diabetic foot with severe PVD * Status post TMA * S/P cystoscopy debridement of skin and muscle and soft tissue of the right TMA * Diabetes mellitus * PVD * PAD * HTN * Leukocytosis Plan * No new complaints pending wound VAC placement * Continue wound dressing s/p debridement. * Continue meropenem 1 g IV twice daily as started by surgeon based on discussion with Dr. Carbajal on the culture that grew. Per Surgery patient will continue antibiotics as written by outpatient infectious disease physician * Remains afebrile * Blood sugar stable Continue insulin sliding scale, continue glimepiride * DVT and GI prophylaxis * Plan discussed with the patient * Patient is stable from my standpoint for discharge History Interval history: Follow-up diabetes He is status post TMA and excisional debridement of skin and muscle and soft tissue of the right TMA awaiting wound VAC Patient seen and examined this morning in no acute distress Denies any chest pain, nausea, vomiting, diarrhea No fever noted blood pressure controlled No adverse events reported to me by nursing staff Hospitalist Physical - Physical exam Narrative exam: VITAL SIGNS: Reviewed. GENERAL: The patient appeared well nourished and normally developed. Vital signs as documented. HEAD: No signs of head trauma. EYES: Pupils are equal. Extraocular motions intact. EARS: Hearing grossly intact. MOUTH: Oropharynx is normal. NECK: No adenopathy, no JVD. CHEST: Chest with clear breath sounds bilaterally. No wheezes, rales, or rhonchi. CARDIAC: Regular rate and rhythm. S1 and S2, without murmurs, gallops, or rubs. VASCULAR: No Edema. Peripheral pulses diminished in lower extremities. ABDOMEN: Soft, without detectable tenderness. No sign of distention. No rebound or guarding, and no masses palpated. Bowel Sounds normal. MUSCULOSKELETAL: Good range of motion of all major joints. Right TMA NEUROLOGIC EXAM: Alert and oriented x 3. No focal sensory or strength deficits. Speech normal. Follows commands. PSYCHIATRIC: Mood normal. SKIN: Right Lower extremity with wound dressing in place no overt drainage noted to the [place]ury bandage. - Constitutional Vitals: Temp Pulse Resp BP Pulse Ox 98.0 F 68 16 131/62 100 04/12/16 08:00 04/12/16 08:00 04/12/16 08:00 04/12/16 08:00 04/12/16 08:00 General appearance: Present: no acute distress Results - Labs CBC & Chem 7: 04/07/16 05:30 04/03/16 04:51 Labs: Laboratory Last Values WBC 13.0 K/mm3 (4.5-11.0) H 04/07/16 05:30 RBC 3.95 M/mm3 (3.65-5.03) 04/07/16 05:30 Hgb 10.7 gm/dl (11.8-15.2) L 04/07/16 05:30 Hct 32.8 % (35.5-45.6) L 04/07/16 05:30 MCV 83 fl (84-94) L 04/07/16 05:30 MCH 27 pg (28-32) L 04/07/16 05:30 MCHC 33 % (32-34) 04/07/16 05:30 RDW 14.1 % (13.2-15.2) 04/07/16 05:30 Plt Count 317 K/mm3 (140-440) 04/07/16 05:30 Lymph % (Auto) 16.7 % (13.4-35.0) 04/07/16 05:30 [place] % (Auto) 7.3 % (0.0-7.3) 04/07/16 05:30 Eos % (Auto) 1.8 % (0.0-4.3) 04/07/16 05:30 Baso % (Auto) 0.7 % (0.0-1.8) 04/07/16 05:30 Lymph # 2.2 K/mm3 (1.2-5.4) 04/07/16 05:30 [place] # 0.9 K/mm3 (0.0-0.8) H 04/07/16 05:30 Eos # 0.2 K/mm3 (0.0-0.4) 04/07/16 05:30 Baso # 0.1 K/mm3 (0.0-0.1) 04/07/16 05:30 Seg Neutrophils % 73.5 % (40.0-70.0) H 04/07/16 05:30 Seg Neutrophils # 9.6 K/mm3 (1.8-7.7) H 04/07/16 05:30 PT 13.9 Sec. (12.2-14.9) 04/02/16 06:45 INR 1.08 (0.87-1.13) 04/02/16 06:45 Sodium 137 mmol/L (137-145) 04/03/16 04:51 Potassium 4.3 mmol/L (3.6-5.0) 04/03/16 04:51 Chloride 101.6 mmol/L (98-107) 04/03/16 04:51 Carbon Dioxide 22 mmol/L (22-30) 04/03/16 04:51 Anion Gap 18 mmol/L 04/03/16 04:51 BUN 16 mg/dL (9-20) 04/03/16 04:51 Creatinine 1.3 mg/dL (0.8-1.5) 04/03/16 04:51 Estimated GFR 58 ml/min 04/03/16 04:51 BUN/Creatinine Ratio 12.30 % 04/03/16 04:51 Glucose 207 mg/dL (75-100) H 04/03/16 04:51 POC Glucose 193 (70-105) H 04/12/16 11:23 Calcium 8.0 mg/dL (8.4-10.2) L 04/03/16 04:51
[2016-04-12] MEDS: NORVASC PO SCH (16:30)
[2016-04-13] MEDS: MERREM/NS 500 MG/50 ML 50 ML IV SCH ×4 (00:03→19:00)
[2016-04-13] MEDS: NORCO 5/325 PO PRN ×4 (00:30→21:14)
[2016-04-13] MEDS: NOVOLOG SUB-Q SCH ×4 (01:07→17:00)
[2016-04-13] MEDS: DILAUDID IV PRN ×3 (01:46→19:00)
--- NOTE | 2016-04-13 07:18 | Progress Note ---
Assessment and Plan Assessment and plan: 55 Yo male with HTN, DM, PAD, CAD S/P CABG, Nicotine Dependence, Metabolic Syndrome, diabetic Foot admitted for right Transmetatarsal amputation 04/02/16. Pt denies fever, chills, CP, Palpitation, NVD, shortness of breath, productive cough, or skin rashes. Assessment * Diabetic foot with severe PVD * Status post TMA * S/P cystoscopy debridement of skin and muscle and soft tissue of the right TMA * Diabetes mellitus * PVD * PAD * HTN * Leukocytosis Plan * No new complaints pending wound VAC placement * Continue wound dressing s/p debridement. * Continue meropenem 1 g IV twice daily as started by surgeon based on discussion with Dr. Carbajal on the culture that grew. Per Surgery patient will continue antibiotics as written by outpatient infectious disease physician * Remains afebrile * Blood sugar stable Continue insulin sliding scale, continue glimepiride * DVT and GI prophylaxis * Plan discussed with the patient * Patient is stable from my standpoint for discharge History Interval history: Follow-up diabetes He is status post TMA and excisional debridement of skin and muscle and soft tissue of the right TMA awaiting wound VAC Patient seen and examined this afternoon reports no complaints. Denies any chest pain, nausea, vomiting, diarrhea No fever noted blood pressure controlled No adverse events reported to me by nursing staff Hospitalist Physical - Physical exam Narrative exam: VITAL SIGNS: Reviewed. GENERAL: The patient appeared well nourished and normally developed. Vital signs as documented. HEAD: No signs of head trauma. EYES: Pupils are equal. Extraocular motions intact. EARS: Hearing grossly intact. MOUTH: Oropharynx is normal. NECK: No adenopathy, no JVD. CHEST: Chest with clear breath sounds bilaterally. No wheezes, rales, or rhonchi. CARDIAC: Regular rate and rhythm. S1 and S2, without murmurs, gallops, or rubs. VASCULAR: No Edema. Peripheral pulses diminished in lower extremities. ABDOMEN: Soft, without detectable tenderness. No sign of distention. No rebound or guarding, and no masses palpated. Bowel Sounds normal. MUSCULOSKELETAL: Good range of motion of all major joints. Right TMA NEUROLOGIC EXAM: Alert and oriented x 3. No focal sensory or strength deficits. Speech normal. Follows commands. PSYCHIATRIC: Mood normal. SKIN: Right Lower extremity with wound dressing in place no overt drainage noted to the Maury bandage. - Constitutional Vitals: Temp Pulse Resp BP Pulse Ox 97.8 F 69 18 155/79 100 04/13/16 00:00 04/13/16 00:00 04/13/16 00:00 04/13/16 00:00 04/13/16 00:00 General appearance: Present: no acute distress Results - Labs CBC & Chem 7: 04/07/16 05:30 04/03/16 04:51 Labs: Laboratory Last Values WBC 13.0 K/mm3 (4.5-11.0) H 04/07/16 05:30 RBC 3.95 M/mm3 (3.65-5.03) 04/07/16 05:30 Hgb 10.7 gm/dl (11.8-15.2) L 04/07/16 05:30 Hct 32.8 % (35.5-45.6) L 04/07/16 05:30 MCV 83 fl (84-94) L 04/07/16 05:30 MCH 27 pg (28-32) L 04/07/16 05:30 MCHC 33 % (32-34) 04/07/16 05:30 RDW 14.1 % (13.2-15.2) 04/07/16 05:30 Plt Count 317 K/mm3 (140-440) 04/07/16 05:30 Lymph % (Auto) 16.7 % (13.4-35.0) 04/07/16 05:30 [place] % (Auto) 7.3 % (0.0-7.3) 04/07/16 05:30 Eos % (Auto) 1.8 % (0.0-4.3) 04/07/16 05:30 Baso % (Auto) 0.7 % (0.0-1.8) 04/07/16 05:30 Lymph # 2.2 K/mm3 (1.2-5.4) 04/07/16 05:30 [place] # 0.9 K/mm3 (0.0-0.8) H 04/07/16 05:30 Eos # 0.2 K/mm3 (0.0-0.4) 04/07/16 05:30 Baso # 0.1 K/mm3 (0.0-0.1) 04/07/16 05:30 Seg Neutrophils % 73.5 % (40.0-70.0) H 04/07/16 05:30 Seg Neutrophils # 9.6 K/mm3 (1.8-7.7) H 04/07/16 05:30 PT 13.9 Sec. (12.2-14.9) 04/02/16 06:45 INR 1.08 (0.87-1.13) 04/02/16 06:45 Sodium 137 mmol/L (137-145) 04/03/16 04:51 Potassium 4.3 mmol/L (3.6-5.0) 04/03/16 04:51 Chloride 101.6 mmol/L (98-107) 04/03/16 04:51 Carbon Dioxide 22 mmol/L (22-30) 04/03/16 04:51 Anion Gap 18 mmol/L 04/03/16 04:51 BUN 16 mg/dL (9-20) 04/03/16 04:51 Creatinine 1.3 mg/dL (0.8-1.5) 04/03/16 04:51 Estimated GFR 58 ml/min 04/03/16 04:51 BUN/Creatinine Ratio 12.30 % 04/03/16 04:51 Glucose 207 mg/dL (75-100) H 04/03/16 04:51 POC Glucose 167 (70-105) H 04/12/16 23:01 Calcium 8.0 mg/dL (8.4-10.2) L 04/03/16 04:51
[2016-04-13] MEDS: AMARYL PO SCH (08:28)
[2016-04-13] MEDS: COLACE PO SCH ×2 (10:35→21:14)
[2016-04-13] MEDS: LOVENOX SUB-Q SCH (10:35)
[2016-04-13] MEDS: PROTONIX PO SCH (10:36)
[2016-04-13] MEDS: PLAVIX PO SCH (10:36)
[2016-04-13] MEDS: NORVASC PO SCH (10:36)
--- NOTE | 2016-04-13 11:21 | Progress Note ---
Assessment and Plan Patient continues on antibiotics that were prescribed as an outpatient by his infectious disease service. Continue to wait on wound VAC approval. Discussed with case management in great detail. All efforts to expedite this process will be attempted today. - Patient Problems (1) Diabetic foot ulcer associated with diabetes mellitus due to underlying condition Current Visit: Yes Status: Acute Qualifiers: Laterality: right Qualified Code(s): E08.621 - Diabetes mellitus due to underlying condition with foot ulcer; L97.519 - Non-pressure chronic ulcer of other part of right foot with unspecified severity (2) Atherosclerosis of [place] arteries of the extremities with ulceration Current Visit: Yes Status: Acute Subjective Date of service: 04/13/16 Principal diagnosis: gangrene Interval history: Patient is awake alert without specific complaint at present. Objective - Constitutional Vitals: Vital Signs - 12hr 04/13/16 04/13/16 04/13/16 00:00 08:00 10:36 Temperature 97.8 F 97.8 F Pulse Rate 76 Pulse Rate [ 74 Apical] Pulse Rate [ 69 Left Brachial] Respiratory 18 16 Rate Blood Pressure 142/64 Blood Pressure 155/79 146/64 [Left Arm] O2 Sat by Pulse 100 Oximetry General appearance: Present: no acute distress - EENT Eyes: EOM intact ENT: hearing intact - Respiratory Respiratory effort: normal Extremities: no ischemia, abnormal (vac in place right foot) - Neurologic Neurologic: no focal deficits - Psychiatric Psychiatric: appropriate mood/affect, intact judgment & insight, cooperative - Labs CBC & Chem 7: 04/07/16 05:30 04/03/16 04:51 Labs: Abnormal lab results 04/06/16 04/12/16 04/12/16 Range/Units 16:09 11:23 16:39 POC Glucose 170 H 193 H 109 H (70-105) 04/12/16 04/13/16 Range/Units 23:01 07:55 POC Glucose 167 H 197 H (70-105)
[2016-04-13] MEDS ORDERED: CATHFLO IV ONE (15:30)
[2016-04-13] MEDS ORDERED: WATER FOR INJ (PF) 10 ML ONE (15:36)
[2016-04-14] MEDS: DILAUDID IV PRN (01:01)
[2016-04-14] MEDS: MERREM/NS 500 MG/50 ML 50 ML IV SCH (01:02)
[2016-04-14] MEDS: NOVOLOG SUB-Q SCH (03:20)
--- NOTE | 2016-04-14 13:33 | Progress Note ---
Assessment and Plan Assessment and plan: 55 Yo male with HTN, DM, PAD, CAD S/P CABG, Nicotine Dependence, Metabolic Syndrome, diabetic Foot admitted for right Transmetatarsal amputation 04/02/16. Pt denies fever, chills, CP, Palpitation, NVD, shortness of breath, productive cough, or skin rashes. Assessment * Diabetic foot with severe PVD * Status post TMA * S/P cystoscopy debridement of skin and muscle and soft tissue of the right TMA * Diabetes mellitus * PVD * PAD * HTN * Leukocytosis Plan * No new complaints pending wound VAC placement * Continue wound dressing s/p debridement. * Continue meropenem 1 g IV twice daily as started by surgeon based on discussion with Dr. Carbajal on the culture that grew. Per Surgery patient will continue antibiotics as written by outpatient infectious disease physician * Remains afebrile * Blood sugar stable Continue insulin sliding scale, continue glimepiride * DVT and GI prophylaxis * Plan discussed with the patient * Patient is stable from my standpoint for discharge my understanding is that the patient will be discharged today History Interval history: Follow-up diabetes He is status post TMA and excisional debridement of skin and muscle and soft tissue of the right TMA awaiting wound VAC Patient seen and examined this afternoon reports no complaints. Denies any chest pain, nausea, vomiting, diarrhea No fever noted blood pressure controlled No adverse events reported to me by nursing staff Hospitalist Physical - Physical exam Narrative exam: VITAL SIGNS: Reviewed. GENERAL: The patient appeared well nourished and normally developed. Vital signs as documented. HEAD: No signs of head trauma. EYES: Pupils are equal. Extraocular motions intact. EARS: Hearing grossly intact. MOUTH: Oropharynx is normal. NECK: No adenopathy, no JVD. CHEST: Chest with clear breath sounds bilaterally. No wheezes, rales, or rhonchi. CARDIAC: Regular rate and rhythm. S1 and S2, without murmurs, gallops, or rubs. VASCULAR: No Edema. Peripheral pulses diminished in lower extremities. ABDOMEN: Soft, without detectable tenderness. No sign of distention. No rebound or guarding, and no masses palpated. Bowel Sounds normal. MUSCULOSKELETAL: Good range of motion of all major joints. Right TMA NEUROLOGIC EXAM: Alert and oriented x 3. No focal sensory or strength deficits. Speech normal. Follows commands. PSYCHIATRIC: Mood normal. SKIN: Right Lower extremity with wound dressing in place no overt drainage noted to the Maury bandage. - Constitutional Vitals: Temp Pulse Resp BP Pulse Ox 98.8 F 82 20 149/71 100 04/14/16 00:30 04/14/16 00:30 04/14/16 01:31 04/14/16 00:30 04/14/16 00:30 General appearance: Present: no acute distress Results - Labs CBC & Chem 7: 04/07/16 05:30 04/03/16 04:51 Labs: Laboratory Last Values WBC 13.0 K/mm3 (4.5-11.0) H 04/07/16 05:30 RBC 3.95 M/mm3 (3.65-5.03) 04/07/16 05:30 Hgb 10.7 gm/dl (11.8-15.2) L 04/07/16 05:30 Hct 32.8 % (35.5-45.6) L 04/07/16 05:30 MCV 83 fl (84-94) L 04/07/16 05:30 MCH 27 pg (28-32) L 04/07/16 05:30 MCHC 33 % (32-34) 04/07/16 05:30 RDW 14.1 % (13.2-15.2) 04/07/16 05:30 Plt Count 317 K/mm3 (140-440) 04/07/16 05:30 Lymph % (Auto) 16.7 % (13.4-35.0) 04/07/16 05:30 [place] % (Auto) 7.3 % (0.0-7.3) 04/07/16 05:30 Eos % (Auto) 1.8 % (0.0-4.3) 04/07/16 05:30 Baso % (Auto) 0.7 % (0.0-1.8) 04/07/16 05:30 Lymph # 2.2 K/mm3 (1.2-5.4) 04/07/16 05:30 [place] # 0.9 K/mm3 (0.0-0.8) H 04/07/16 05:30 Eos # 0.2 K/mm3 (0.0-0.4) 04/07/16 05:30 Baso # 0.1 K/mm3 (0.0-0.1) 04/07/16 05:30 Seg Neutrophils % 73.5 % (40.0-70.0) H 04/07/16 05:30 Seg Neutrophils # 9.6 K/mm3 (1.8-7.7) H 04/07/16 05:30 PT 13.9 Sec. (12.2-14.9) 04/02/16 06:45 INR 1.08 (0.87-1.13) 04/02/16 06:45 Sodium 137 mmol/L (137-145) 04/03/16 04:51 Potassium 4.3 mmol/L (3.6-5.0) 04/03/16 04:51 Chloride 101.6 mmol/L (98-107) 04/03/16 04:51 Carbon Dioxide 22 mmol/L (22-30) 04/03/16 04:51 Anion Gap 18 mmol/L 04/03/16 04:51 BUN 16 mg/dL (9-20) 04/03/16 04:51 Creatinine 1.3 mg/dL (0.8-1.5) 04/03/16 04:51 Estimated GFR 58 ml/min 04/03/16 04:51 BUN/Creatinine Ratio 12.30 % 04/03/16 04:51 Glucose 207 mg/dL (75-100) H 04/03/16 04:51 POC Glucose 168 (70-105) H 04/14/16 11:25 Calcium 8.0 mg/dL (8.4-10.2) L 04/03/16 04:51
--- NOTE | 2016-04-14 14:58 | Discharge Summary ---
Providers - Providers Date of Admission: 04/02/16 06:14 Date of discharge: 04/14/16 Attending physician: NORMA MORENO MD 04/02/16 Consult to Case Management [CONS] Routine Services Needed at Discharge: Wound Vac Home Health Services Notified:: cm notified Occupational Therapy Evaluate and Treat [CONS] Routine Comment: Reason For Exam: s/p amputation Physical Therapy Evaluation and Treat [CONS] Routine Comment: Reason For Exam: s/p amputation 04/02/16 09:38 Consult Acute Rehabilitation [CONS] Routine Consulting Provider: HOWARD CADENA Reason For Exam: eval for acute rehab 04/02/16 09:42 Consult to Freelance Graphic Designer [CONS] Routine Reason For Exam: [employer] for Gabriel Front off laoding boot 04/02/16 11:17 Consult to Wound/ET Nurse [CONS] Routine Reason For Exam: wound vac management 04/02/16 20:00 Consult to Physician [CONS] Routine Consulting Provider: NIGEL SCHULTE Reason For Exam: medical management Place consult to:: Cell phone Notified:: yes Phone number called:: [phone] Was contact made?: Yes If yes, spoke with:: Time called:: 08:43 04/03/16 14:44 Consult to Wound/ET Nurse [CONS] Routine Reason For Exam: reapply wound VAC as soon as possible; thanks Primary care physician: CINDY FIGUEROA Hospitalization Condition: Stable Procedures: Operative Report Operative Report: Date of Procedure: 04/02/2016 Pre-operative Diagnosis: PVD with Right Foot Nonhealing Ulcers Post-operative Diagnosis: Same Procedure(s): 1. Right Transmetatarsal Amputation 2. Debridement of Skin and Soft Tissue of Right Foot Wound 3. Wound VAC Placement Right Foot (Wound Measures 4 x 4 x 2 cm) Surgeon: Serge Breg M.D. Supervisor Pile Driving: None Anesthesia: Gen. endotracheal anesthesia and regional block EBL: Minimal Counts: Correct Complications: None Condition: Stable Findings: TMA performed and wound closed without tension on the incision. Lateral wound debrided to healthy bleeding tissue and wound VAC with excellent seal. Specimen: Right forefoot and skin and soft tissue of right foot sent to pathology Indication: The patient is a 55-year-old male with a history of peripheral vascular disease and ulcerations of his right foot. He had amputation of the right fifth toe for dehiscence of the wound and an ulceration on the plantar surface of his right first toe. Despite revascularization and antibiotics for the last 5 months he has not healed his wounds. He is in need of a transmetatarsal amputation to control his pain as well as infection. He was given the risks, benefits, and alternative procedures and consented to procedure. Operative Report Operative Report: Date of Procedure: 04/07/2016 Pre-operative Diagnosis: Infected Right Transmetatarsal Amputation Post-operative Diagnosis: Same Procedure(s): 1. Excisional Debridement of Skin and Muscle and Soft Tissue of Right Transmetatarsal Amputation Surgeon: Serge Berg M.D. Supervisor Pile Driving: None Anesthesia: Gen. endotracheal anesthesia EBL: Minimal Counts: Correct Complications: None Condition: Stable Findings: Necrotic tissue within the transmetatarsal amputation including the plantar flap. Specimen: Skin muscle soft tissue sent to pathology Indication: The patient is a 55-year-old male with a history of peripheral vascular disease and diabetic foot ulcers that recently underwent transmetatarsal amputation. He began to have foul-smelling drainage from the amputation site that is so decision was made to reopen the amputation and debridement all necrotic tissue. He was given the risks, benefits, and alternative procedures and consented to procedure. Hospital course: The Patient was admitted in preparation for the above-stated procedure which was performed without complication. The patient transferred to recovery room and subsequently the medical surgical floor. Intraoperatively he had a wound VAC placed. Discharge planning was ordered for home wound VAC placement. The ET nurse was consulted for wound VAC management. The patient was started on imipenem based upon instructions from his infectious disease service. Following the initial dressing change, he was noted have some derrek-incisional erythema with fibrinous slough of the wound base with a foul odor. Arrangements were completed for the patient be taken back to the operating room with a second procedure was performed. Postoperatively, they can solution was ordered. By hospital day 5 the wound VAC was replaced. After overcoming several administrative issues, his home wound VAC was approved. By 04/14/2016 patient was stable for discharge and all arrangements were completed. He's to follow up in our office in 2 weeks. He'll follow up with the infectious disease service as instructed. Discharge instructions were given at the bedside. Disposition: DC/[place] HOME UNDER HOME HEALTH - Discharge Diagnoses (1) Atherosclerosis of [place] arteries of the extremities with ulceration Status: Acute (2) Diabetic foot ulcer associated with diabetes mellitus due to underlying condition Status: Acute Qualifiers: Laterality: right Qualified Code(s): E08.621 - Diabetes mellitus due to underlying condition with foot ulcer; L97.519 - Non-pressure chronic ulcer of other part of right foot with unspecified severity Core Measure Documentation - Palliative Care Palliative Care/ Comfort Measures: Not Applicable - Core Measures Any of the following diagnoses?: none Exam - Constitutional Vitals: Temp Pulse Resp BP Pulse Ox 98.8 F 82 20 149/71 100 04/14/16 00:30 04/14/16 00:30 04/14/16 01:31 04/14/16 00:30 04/14/16 00:30 General appearance: Present: no acute distress - EENT Eyes: Present: EOM intact ENT: hearing intact - Neck Neck: Present: supple - Respiratory Respiratory effort: normal - Extremities Extremities: no ischemia, normal temperature, abnormal (wound vac inplace) - Psychiatric Psychiatric: appropriate mood/affect, intact judgment & insight, cooperative - Neurologic Neurologic: no focal deficits Plan Activity: advance as tolerated Weight Bearing Status: Partial Weight Bearing (use gabriel shoe and avoid right fore foot pressure.) Diet: diabetic Wound: keep clean and dry Additional Instructions: Follow up with Dr Serge Berg and your Infectious disease service within 1-2 weeks. Call for appt.
[2016-04-14 16:22] VITALS: BP 159/71
== END 2016-04-14 17:00 | disposition home health service (06) | DRG 240 ==
LOC: 3A 06:14 → 2B-SURG 19:24
PROVIDERS: ADMIT Surgery Vascular Surgery; ATTEND Internal Medicine
PROC: 0Y6M0Z9 Detachment at Right Foot, Partial 1st Ray, Open Approach (ICD-10-PCS; principal; 2016-04-02)
PROC: 0JBQ0ZZ Excision of Right Foot Subcutaneous Tissue and Fascia, Open Approach (ICD-10-PCS; 2016-04-02)
PROC: 0JBQ0ZZ Excision of Right Foot Subcutaneous Tissue and Fascia, Open Approach (ICD-10-PCS; 2016-04-07)
DX: E11.52 Type 2 diabetes mellitus with diabetic peripheral angiopathy with gangrene (principal); E11.621 Type 2 diabetes mellitus with foot ulcer; I70.235 Atherosclerosis of native arteries of right leg with ulceration of other part of foot; L97.519 Non-pressure chronic ulcer of other part of right foot with unspecified severity; I11.0 Hypertensive heart disease with heart failure; I50.9 Heart failure, unspecified; E11.65 Type 2 diabetes mellitus with hyperglycemia; F17.200 Nicotine dependence, unspecified, uncomplicated; M19.90 Unspecified osteoarthritis, unspecified site; K21.9 Gastro-esophageal reflux disease without esophagitis; I25.10 Atherosclerotic heart disease of native coronary artery without angina pectoris; Z95.1 Presence of aortocoronary bypass graft; Z82.49 Family history of ischemic heart disease and other diseases of the circulatory system; Z83.3 Family history of diabetes mellitus
CPT/HCPCS: 36415; 80048; 82962; 85014; 85018; 85025; 85610; 88304; 88307; 88311; A4217; A6260; J0690; J1100; J1170; J1650; J1815; J1885; J2185; J2250; J2405; J2704; J2997; J3010; J7030